=== PATIENT | female | born 1960 | race Caucasian/White ===

== ENCOUNTER 2016-12-29 09:30 | Inpatient (IN) | payer SELFPAY ==
[~2016-12-29] VITALS: Ht 172.7 cm; Wt 65.5 kg
[2016-12-29] VITALS (13 sets, daily range): BP systolic 99–182; BP diastolic 57–94; PULSE 80–142; RESP 24–42; TEMP 97.1–99.4; O2SAT 79–100
[~2016-12-29 09:30] MED LIST: ALBU8I INH; FURO20 PO; IRON325T2 PO; K-TA10TA5 PO; SENN1TAB11 PO
[2016-12-29] MEDS ORDERED: FURO20TA PO (09:49)
[2016-12-29] MEDS: RESP: ALBUTEROL 2.5 MG/3 ML NEB (SCH) INH (10:13)
[2016-12-29] MEDS ORDERED: methylPREDNISolone SOD SUCC 125 MG/2 ML VIAL IV PUSH ONE (10:15)
[2016-12-29] MEDS ORDERED: RESP: ALBUTEROL 2.5 MG/IPRATROPIUM 0.5 MG NEB (SCH) INH ONE (10:15)
[2016-12-29] MEDS ORDERED: SODIUM CHLOR 0.9% 1000 ML INJ 1,000 ML IV SCH (10:15)
[2016-12-29 10:29] LABS: AUTOMATED NEUTROPHIL # 6.3 TH/MM3 (1.8-7.7); BASOPHIL % 0.1 % (0.0-2.0); HEMATOCRIT 37.1 % (35.0-46.0); HEMO FLAGS DIFF FINAL; LYMPH % 10.6 % (9.0-44.0); LYMPHOCYTE # 0.9 TH/MM3 (1.0-4.8); MEAN CELL VOLUME 112.7 FL (80.0-100.0); MEAN CORPUSCULAR HEMOGLOBIN 37.7 PG (27.0-34.0); MEAN CORPUSCULAR HGB CONC 33.5 % (32.0-36.0); NEUT % 75.3 % (16.0-70.0); PLATELET COUNT 117 TH/MM3 (150-450); RED BLOOD COUNT 3.29 MIL/MM3 (4.00-5.30); RED CELL DISTRIBUTION WIDTH 14.9 % (11.6-17.2); WHITE BLOOD COUNT 8.3 TH/MM3 (4.0-11.0)
[2016-12-29 10:37] LABS: BACTERIA, URINE MANY /hpf; BLOOD, URINE NEG (NEG); COMMENT (UR) CULTURE INDICATED; CULTURE IF INDICATED CULTURE INDICATED; GLUCOSE,URINE NEG (NEG); KETONE, URINE 10 mg/dL (NEG); NITRITE,URINE NEG (NEG); PH, URINE 7.5 (5.0-8.5); URINE COLOR YELLOW (YELLW/STRAW)
[2016-12-29] MEDS ORDERED: ONDANSETRON HCL 4 MG/2 ML VIAL IV PUSH ONE (10:45)
--- NOTE | 2016-12-29 10:54 | PD ---
HPI Chief Complaint: Respiratory Symptoms Time Seen by Provider: 10:03 Travel History International Travel<30 days: No Contact w/Intl Traveler<30days: No Traveled to known affect area: No History of Present Illness HPI This is a 56-year-old female with a history of COPD, presents today with complaints of shortness of breath, wheezing, cough. The patient also reports that over the last week, she had had food poisoning. She states she ate suspicious food and shortly thereafter started having the nausea vomiting diarrhea. Patient also complains of difficulty urinating. She reports that she 's not able to empty her bladder. There is no reported dysuria. She states she has to push hard to empty her bladder. PFSH Past Medical History COPD: Yes Diminished Hearing: No Menopausal: Yes Past Surgical History Surgical History: No Previous Surgery Social History Alcohol Use: Yes ([facility]) Tobacco Use: No Substance Use: No Allergies-Medications (Allergen,Severity, Reaction): Coded Allergies: No Known Allergies (Verified , 12/29/16) Reported Meds & Prescriptions Reported Meds & Active Scripts Active Reported Furosemide 20 Mg Tab 20 Mg PO DAILY Review of Systems Except as stated in HPI: all other systems reviewed are Neg General / Constitutional: No: Fever, Chills HENT: No: Headaches, Neck Pain Cardiovascular: Positive: Tachycardia, No: Chest Pain or Discomfort, Palpitations Respiratory: Positive: Cough, Shortness of Breath, Wheezing Gastrointestinal: No: Nausea, Vomiting (earlier), Abdominal Pain (early) Genitourinary: Positive: Other (urinary retention), No: Frequency, Dysuria Musculoskeletal: Positive: Weakness (generalized), No: Pain Neurologic: Positive: Weakness (generalized), Other (urinary retention), No: Headache Physical Exam Narrative GENERAL: Well-nourished, well-developed patient in moderate to severe respiratory distress. SKIN: Focused skin assessment warm/dry. HEAD: Normocephalic/atraumatic. EYES: No scleral icterus. No injection or drainage. NECK: Supple, trachea midline. CARDIOVASCULAR: Tachycardic without obvious murmurs. RESPIRATORY: Diffuse expiratory wheezes bilaterally. Positive accessory muscle use. GASTROINTESTINAL: Abdomen soft, non-tender, nondistended. Patient has subjective bladder distention. MUSCULOSKELETAL: No cyanosis, or edema. NEUROLOGICAL: Awake and alert. Cranial nerves II through XII intact. Motor grossly within normal limits. Five out of 5 muscle strength in all muscle groups. Normal speech. Data Data Last Documented VS Vital Signs Date Time Temp Pulse Resp B/P (MAP) Pulse Ox O2 Delivery O2 Flow Rate FiO2 12/29/16 12:06 114 27 107/61 (76) 100 Nasal Cannula 4.00 12/29/16 09:39 98.0 Orders Orders Complete Blood Count With Diff (12/29/16 10:03) Comprehensive Metabolic Panel (12/29/16 10:03) Ckmb (Isoenzyme) Profile (12/29/16 10:03) Troponin I (12/29/16 10:03) Urinalysis - C+S If Indicated (12/29/16 10:03) Influenzae A/B Antigen (12/29/16 10:03) Blood Culture (12/29/16 10:03) Iv Access Insert/Monitor (12/29/16 10:03) Ecg Monitoring (12/29/16 10:03) Oximetry (12/29/16 10:03) Oxygen Administration (12/29/16 10:03) Chest, Single Ap (12/29/16 10:03) Sodium Chloride 0.9% Flush (Ns Flush) (12/29/16 10:15) Methylprednisolone So Succ Inj (Solumedr (12/29/16 10:15) Albuterol-Ipratropium Neb (Duoneb Neb) (12/29/16 10:15) Albuterol Neb (Albuterol Neb) (12/29/16 10:15) Sodium Chlor 0.9% 1000 Ml Inj (Ns 1000 M (12/29/16 10:15) Urinary Catheter Insert/Apply (12/29/16 10:36) Ondansetron Inj (Zofran Inj) (12/29/16 10:45) Urine Culture (12/29/16 10:05) Lactic Acid Sepsis Protocol (12/29/16 11:12) Ceftriaxone Inj (Rocephin Inj) (12/29/16 11:15) Azithromycin Inj (Zithromax Inj) (12/29/16 11:15) Admit To Inpatient (12/29/16 ) Code Status (12/29/16 11:23) Vital Signs (Adult) ZAINA.Q1H (12/29/16 11:23) Activity Bed Rest (12/29/16 11:23) Elevate Head Of Bed (12/29/16 11:23) Neuro Checks . ORDERED (12/29/16 11:23) Pantoprazole Inj (Protonix Inj) (12/29/16 12:00) Albuterol-Ipratropium Neb (Duoneb Neb) (12/29/16 12:00) Albuterol-Ipratropium Neb (Duoneb Neb) (12/29/16 11:30) Complete Blood Count With Diff (12/30/16 04:00) Comprehensive Metabolic Panel (12/30/16 04:00) Magnesium (Mg) (12/30/16 04:00) Phosphorus (Po4) (12/30/16 04:00) Crew Truck Driver / Telemetry ZAINA.Q8H (12/29/16 11:23) Scd Bilateral/Knee High ZAINA.BID (12/29/16 11:23) ^ Initiate Protocol (12/29/16 11:23) Instruction (12/29/16 11:23) [facility] [place] Nursing Information (12/29/16 11:30) Chlorhexidine 2% Cloth (Chlorhexidine 2% (12/30/16 04:00) Chlorhexidine 2% Cloth (Chlorhexidine 2% (12/29/16 11:30) [facility]sa Pcr Surveillance (12/29/16 11:23) Docusate Sodium-Senna (Elvie-Colace) (12/29/16 21:00) Magnesium Hydroxide Liq (Milk Of Magnesi (12/29/16 11:30) Sennosides (Senokot) (12/29/16 11:30) Bisacodyl Supp (Dulcolax Supp) (12/29/16 11:30) Lactulose Liq (Lactulose Liq) (12/29/16 11:30) Inpatient Certification (12/29/16 ) Sodium Chlor 0.9% 1000 Ml Inj (Ns 1000 M (12/29/16 11:30) Osmolality, Urine (12/29/16 11:26) Osmolality,Serum (12/29/16 11:26) Sodium, Random Urine (12/29/16 11:26) ^ Medication Admin Instruction (12/29/16 11:26) Notify Dr: Other (12/29/16 11:26) Phosphorus (Po4) (12/29/16 11:26) Potassium Chlor 40 Meq Premix (Kcl 40 Me (12/29/16 11:30) Potassium Chlor 20 Meq Premix (Kcl 20 Me (12/29/16 11:30) Potassium Chloride Eff (K-Lyte Cl Eff) (12/29/16 11:30) Potassium Chlor 40 Meq Premix (Kcl 40 Me (12/29/16 11:30) Potassium Chlor 20 Meq Premix (Kcl 20 Me (12/29/16 11:30) Magnesium Sulfate Inj (Magnesium Sulfate (12/29/16 11:30) Magnesium Oxide (Mag-Ox) (12/29/16 11:30) Magnesium Sulfate Inj (Magnesium Sulfate (12/29/16 11:30) Potassium Phosphate (K-Phos) (12/29/16 11:30) Sodium Phosphate Inj (Sodium Phosphate I (12/29/16 11:30) Potassium Phosphate (K-Phos) (12/29/16 11:30) Potassium Phosphate Inj (Potassium Phosp (12/29/16 11:30) Blood Glucose Goal (Criteria) (12/29/16 11:26) Hypoglycemia 70 Mg/Dl Or < (12/29/16 11:26) Notify Dr: Other (12/29/16 11:26) Dextrose 50% In Whitney (Vial) Inj (D50w (Vi (12/29/16 11:30) Glucagon Inj (Glucagon Inj) (12/29/16 11:30) Insulin Human Reg Supp Scale (Novolin R (12/29/16 11:30) Sputum Culture And Gram Stain (12/29/16 11:26) B-Type Natriuretic Peptide (12/29/16 11:28) Methylprednisolone So Succ Inj (Solumedr (12/29/16 16:00) Prothrombin Time / Inr (Pt) (12/29/16 11:29) Act Partial Throm Time (Ptt) (12/29/16 11:29) Electrocardiogram (12/29/16 09:46) Ceftriaxone Inj (Rocephin Inj) (12/30/16 12:00) Azithromycin Inj (Zithromax Inj) (12/30/16 13:00) Us Guided Thoracentesis (12/29/16 ) Glucose, Pleural Fluid (12/29/16 12:11) Ldh, Pleural Fluid (12/29/16 12:11) Pleural Fluid Ph (12/29/16 12:11) Pleural Fl Cell Count + Diff (12/29/16 12:11) Fluid Culture And Gram Stain (12/29/16 12:11) Cytology Request For Service (12/29/16 12:11) Total Protein, Pleural Fluid (12/29/16 12:11) Consult Pulmonology (12/29/16 ) Admit Order (Ed Use Only) (12/29/16 12:23) Ct Thoracentesis W Insertion (12/29/16 12:24) Labs Laboratory Tests Test 12/29/16 10:05 12/29/16 10:10 12/29/16 11:35 12/29/16 12:00 Urine Color YELLOW Urine Turbidity HAZY Urine pH 7.5 Urine Specific Franklin 1.008 Urine Protein TRACE mg/dL Urine Glucose (UA) NEG mg/dL Urine Ketones 10 mg/dL Urine Occult Blood NEG Urine Nitrite NEG Urine Bilirubin NEG Urine Urobilinogen LESS THAN 2.0 MG/DL Urine Leukocyte Esterase MOD Urine RBC 1 /hpf Urine WBC 7 /hpf Urine Bacteria MANY /hpf Microscopic Urinalysis Comment CULTURE INDICATED White Blood Count 8.3 TH/MM3 Red Blood Count 3.29 MIL/MM3 Hemoglobin 12.4 GM/DL Hematocrit 37.1 % Mean Corpuscular Volume 112.7 FL Mean Corpuscular Hemoglobin 37.7 PG Mean Corpuscular Hemoglobin Concent 33.5 % Red Cell Distribution Width 14.9 % Platelet Count 117 TH/MM3 Mean Platelet Volume 10.0 FL Neutrophils (%) (Auto) 75.3 % Lymphocytes (%) (Auto) 10.6 % Monocytes (%) (Auto) 14.0 % Eosinophils (%) (Auto) 0.0 % Basophils (%) (Auto) 0.1 % Neutrophils # (Auto) 6.3 TH/MM3 Lymphocytes # (Auto) 0.9 TH/MM3 Monocytes # (Auto) 1.2 TH/MM3 Eosinophils # (Auto) 0.0 TH/MM3 Basophils # (Auto) 0.0 TH/MM3 CBC Comment DIFF FINAL Differential Comment Blood Urea Nitrogen 18 MG/DL Creatinine 0.88 MG/DL Random Glucose 127 MG/DL Total Protein 7.7 GM/DL Albumin 2.4 GM/DL Calcium Level 8.4 MG/DL Alkaline Phosphatase 95 U/L Aspartate Amino Transf (AST/SGOT) 46 U/L Alanine Aminotransferase (ALT/SGPT) 27 U/L Total Bilirubin 0.8 MG/DL Sodium Level 125 MEQ/L Potassium Level 3.4 MEQ/L Chloride Level 90 MEQ/L Carbon Dioxide Level 20.3 MEQ/L Anion Gap 15 MEQ/L Estimat Glomerular Filtration Rate 66 ML/MIN Total Creatine Kinase 38 U/L Troponin I 0.11 NG/ML Lactic Acid Level 2.1 mmol/L Prothrombin Time 11.8 SEC Prothromb Time International Ratio 1.1 RATIO Activated Partial Thromboplast Time 34.4 SEC MDM Medical Decision Making Medical Screen Exam Complete: Yes Emergency Medical Condition: Yes Interpretation(s) Laboratory Tests Test 12/29/16 10:05 12/29/16 10:10 12/29/16 11:35 12/29/16 12:00 Urine Color YELLOW Urine Turbidity HAZY Urine pH 7.5 Urine Specific Franklin 1.008 Urine Protein TRACE mg/dL Urine Glucose (UA) NEG mg/dL Urine Ketones 10 mg/dL Urine Occult Blood NEG Urine Nitrite NEG Urine Bilirubin NEG Urine Urobilinogen LESS THAN 2.0 MG/DL Urine Leukocyte Esterase MOD Urine RBC 1 /hpf Urine WBC 7 /hpf Urine Bacteria MANY /hpf Microscopic Urinalysis Comment CULTURE INDICATED White Blood Count 8.3 TH/MM3 Red Blood Count 3.29 MIL/MM3 Hemoglobin 12.4 GM/DL Hematocrit 37.1 % Mean Corpuscular Volume 112.7 FL Mean Corpuscular Hemoglobin 37.7 PG Mean Corpuscular Hemoglobin Concent 33.5 % Red Cell Distribution Width 14.9 % Platelet Count 117 TH/MM3 Mean Platelet Volume 10.0 FL Neutrophils (%) (Auto) 75.3 % Lymphocytes (%) (Auto) 10.6 % Monocytes (%) (Auto) 14.0 % Eosinophils (%) (Auto) 0.0 % Basophils (%) (Auto) 0.1 % Neutrophils # (Auto) 6.3 TH/MM3 Lymphocytes # (Auto) 0.9 TH/MM3 Monocytes # (Auto) 1.2 TH/MM3 Eosinophils # (Auto) 0.0 TH/MM3 Basophils # (Auto) 0.0 TH/MM3 CBC Comment DIFF FINAL Differential Comment Blood Urea Nitrogen 18 MG/DL Creatinine 0.88 MG/DL Random Glucose 127 MG/DL Total Protein 7.7 GM/DL Albumin 2.4 GM/DL Calcium Level 8.4 MG/DL Alkaline Phosphatase 95 U/L Aspartate Amino Transf (AST/SGOT) 46 U/L Alanine Aminotransferase (ALT/SGPT) 27 U/L Total Bilirubin 0.8 MG/DL Sodium Level 125 MEQ/L Potassium Level 3.4 MEQ/L Chloride Level 90 MEQ/L Carbon Dioxide Level 20.3 MEQ/L Anion Gap 15 MEQ/L Estimat Glomerular Filtration Rate 66 ML/MIN Total Creatine Kinase 38 U/L Troponin I 0.11 NG/ML Lactic Acid Level 2.1 mmol/L Prothrombin Time 11.8 SEC Prothromb Time International Ratio 1.1 RATIO Activated Partial Thromboplast Time 34.4 SEC Differential Diagnosis COPD versus pneumonia versus dehydration versus anemia Narrative Course 56-year-old female history of COPD, presents today with points of shortness of breath and weakness per patient also has urinary retention. Patient's urinalysis showed evidence of a UTI. Patient also had 1300 cc of urine in her bladder that she could not void. Chest x-ray shows a large left sided pleural effusion. Patient also has hyponatremia and an elevated troponin. Case was discussed with Dr. Gomez, hydraulic riveter, who agreed to admit the patient his service. The patient will get a therapeutic and diagnostic thoracentesis with chest tube placement. He'll be a CT ordered of her chest after the thoracentesis. Concern here is patient may have paraneoplastic syndrome and underlying lung cancer. Critical Care Narrative Aggregate critical care time was 45 minutes. Time to perform other separately billable procedures was not included in the critical care time. My time did not include minutes spent treating any other patients simultaneously or on activities that did not directly contribute to the patient's treatment. The services I provided to this patient were to treat and/or prevent clinically significant deterioration that could result in: I provided critical care services requiring my management, as noted below: Chart data review, documentation time, medication orders and management, vital sign assessments/reviewing monitor data, ordering and reviewing lab tests, ordering and interpreting/reviewing x-rays and diagnostic studies, care of the patient and discussion of the patient with the admitting physicians. Diagnosis Primary Impression: Respiratory distress Additional Impressions: large left pleural effusion Hyponatremia Elevated troponin persistent tachycardia Hypochloremia Admitting Information Admitting Physician Requests: Admit Merritt Singletary MD Dec 29, 2016 10:54
--- NOTE | 2016-12-29 10:58 | RADRPT ---
EXAM DATE/TIME: 12/29/2016 10:24 [facility] COMPARISON: No previous studies available for comparison. INDICATIONS : Chest pain and shortness of breath. MEDICAL HISTORY : Chronic obstructive pulmonary disease. SURGICAL HISTORY : None. ENCOUNTER: Initial ACUITY: 1 day PAIN SCORE: 10/10 LOCATION: Bilateral chest FINDINGS: I don't have any priors. Large pleural effusion with patchy consolidation and volume loss seen on the left. There is near complete opacification of the left hemithorax. Right lung is reasonably clear. H eart size probably upper limits of normal. CONCLUSION: Combination of extensive consolidation, large effusion and volume loss on the left. Man Mcdaniels MD on December 29, 2016 at 10:55 Board Certified Radiologist. This report was verified electronically.
[2016-12-29 11:07] LABS: ALKALINE PHOSPHATASE 95 U/L (45-117); ALT (GPT) 27 U/L (10-53); ANION GAP 15 MEQ/L (5-15); AST (GOT) 46 U/L (15-37); BICARBONATE 20.3 MEQ/L (21.0-32.0); BLOOD UREA NITROGEN 18 MG/DL (7-18); CHLORIDE 90 MEQ/L (98-107); GLOMERULAR FILTRATION RATE 66 ML/MIN (>89); POTASSIUM 3.4 MEQ/L (3.5-5.1); SODIUM (NA) 125 MEQ/L (136-145); TOTAL BILIRUBIN ADULT 0.8 MG/DL (0.2-1.0)
[2016-12-29 11:08] LABS: CREATINE KINASE 38 U/L (26-192)
[2016-12-29] MEDS ORDERED: cefTRIAXone INJ 1,000 MG in SODIUM CHLORIDE 0.9% INJ 100 ML IV ONE (11:15)
[2016-12-29] MEDS ORDERED: AZITHROMYCIN INJ 500 MG in SODIUM CHLOR 0.9% 250 ML INJ 250 ML IV ONE (11:15)
[2016-12-29] MEDS ORDERED: POTASSIUM PHOSPHATE INJ 30 MMOL in SODIUM CHLOR 0.9% 250 ML INJ 250 ML IV PRN (11:30)
[2016-12-29] MEDS ORDERED: MAGNESIUM SULFATE INJ 2 GM in SODIUM CHLORIDE 0.9% INJ 96 ML IV PRN (11:30)
[2016-12-29] MEDS ORDERED: MAGNESIUM SULFATE INJ 4 GM in SODIUM CHLORIDE 0.9% INJ 92 ML IV PRN (11:30)
[2016-12-29] MEDS ORDERED: MISCELLANEOUS NURSING INFORMATION XX SCH (11:30)
[2016-12-29] MEDS ORDERED: DEXTROSE 50% IN WATER 50 ML VIAL(D50) IV PUSH PRN (11:30)
[2016-12-29] MEDS ORDERED: POTASSIUM CHLOR 20 MEQ PREMIX 100 ML IV PRN ×2 (11:30)
[2016-12-29] MEDS ORDERED: POTASSIUM PHOSPHATE MONOBASIC 500 MG TAB PO/TUBE PRN (11:30)
[2016-12-29] MEDS ORDERED: POTASSIUM CHLOR 40 MEQ PREMIX 100 ML IV PRN ×2 (11:30)
[2016-12-29] MEDS ORDERED: CHLORHEXIDINE GLUCONATE 2 % 1 PACK (2 CLOTHS) TOP PRN (11:30)
[2016-12-29] MEDS: INSULIN NovoLIN REGULAR SUPPLEMENTAL SCALE SQ SCH ×3 (11:30→23:30)
[2016-12-29] MEDS ORDERED: POTASSIUM CHLORIDE 25 MEQ EFFERVESCENT TAB PO PRN (11:30)
[2016-12-29] MEDS ORDERED: LACTULOSE SYRUP 20 GM/30 ML CUP PO PRN (11:30)
[2016-12-29] MEDS ORDERED: MAGNESIUM OXIDE 400 MG TAB PO PRN (11:30)
[2016-12-29] MEDS ORDERED: GLUCAGON 1 MG/ML VIAL OTHER PRN (11:30)
[2016-12-29] MEDS ORDERED: BISACODYL 10 MG SUPP RECTAL PRN (11:30)
[2016-12-29] MEDS ORDERED: POTASSIUM PHOSPHATE MONOBASIC 500 MG TAB PO PRN (11:30)
[2016-12-29] MEDS ORDERED: SODIUM PHOSPHATE INJ 30 MMOL in SODIUM CHLOR 0.9% 250 ML INJ 240 ML IV PRN (11:30)
[2016-12-29] MEDS: SODIUM CHLOR 0.9% 1000 ML INJ 1,000 ML IV SCH ×2 (12:04→17:26)
[2016-12-29] MEDS: RESP: ALBUTEROL 2.5 MG/IPRATROPIUM 0.5 MG NEB (SCH) INH ×4 (12:08→23:46)
[2016-12-29] MEDS: PANTOPRAZOLE SODIUM 40 MG VIAL IV PUSH SCH (12:31)
[2016-12-29] MEDS ORDERED: LIDOCAINE 1%/EPINEPHrine 1:100,000 SOLN 20 ML VIAL ONE (12:38)
[2016-12-29] MEDS ORDERED: MIDAZOLAM HCL 2 MG/2 ML VIAL ONE (12:47)
[2016-12-29 12:54] LABS: APTT (PATIENT) 34.4 SEC (24.3-30.1); INTERNATIONAL NORMALIZED RATIO 1.1 RATIO; PROTHROMBIN TIME - PATIENT 11.8 SEC (9.8-11.6)
--- NOTE | 2016-12-29 12:57 | MH ---
cc: LINDA ADAMS DATE OF ADMISSION: 12/29/2016 1960 HISTORY OF PRESENT ILLNESS The patient is a 56-year-old female with past medical history of COPD, who presented to [facility] ED with complaints of coughing, wheezing. The patient states that she had food poisoning last week where she had nausea and diarrhea, after she ate suspicious food. She denies any worsening of dyspnea from baseline. In addition, she denies any constitutional symptoms. She quit smoking five and a half years ago and used to smoke one to two packs per day for about 30 years. Chest x-ray in the ER showed consolidation with large effusion and volume loss on the left. On further history she denies any hemoptysis, however, she reports 20 pounds weight loss in the last 4 months and decreased p.o. intake. She is being followed up by Dr. Chung her outpatient residential care facility manager. The patient denies any use of oxygen at home, however, she is on bronchodilators p.r.n. Her laboratory data is significant for hyponatremia with sodium level 125, lactic acid level 2.1. On arrival to the ER she was tachycardic and tachypneic. When seen the patient is on 4 liters nasal cannula with saturation ranges between 95-100%. In the ER she was given Rocephin, azithromycin, Solu-Medrol, bronchodilator treatment and IV fluids. Her current blood pressure is 107/61. PAST MEDICAL HISTORY Significant for COPD. PAST SURGICAL HISTORY Unremarkable. ALLERGIES NO KNOWN DRUG ALLERGIES. FAMILY HISTORY Father with lung cancer age 54. SOCIAL HISTORY Ex-smoker, quit smoking five and half years ago. Used to smoke one to two packs per day for 30 years. She is occasional drinker. MEDICATIONS Reported medications at home: Lasix 20 mg daily. REVIEW OF SYSTEMS As per HPI. The rest of the review of systems is unremarkable. PHYSICAL EXAMINATION GENERAL: A 56-year-old female lying in bed in mild distress, appears ill. VITAL SIGNS: Temperature of 98.0, pulse 112, blood pressure 107/61, saturation 94-100% on 4 liters oxygen. HEENT: Atraumatic, normocephalic. Pupil equal, round and reactive to light and accommodation. Extraocular muscles intact. Conjunctivae pink. Nonicteric sclerae. Oral mucosa within normal. Dry mucous membranes noted. NECK: Supple. No JVD, adenopathy or thyromegaly. Trachea midline. CARDIOVASCULAR: Tachycardic, normal S1-S2. No murmurs, rubs or gallops noted. PULMONARY: Diminished breath sounds at the left base. ABDOMEN: Soft, nontender, no distension. Positive bowel sounds. EXTREMITIES: No cyanosis, clubbing or edema. NEURO: No focal sensory deficit. LABORATORY DATA WBC 8.3, hemoglobin 12.4, hematocrit 37, platelet count of 117, sodium 125, potassium 3.4, chloride 90, CO2 20, BUN 18, creatinine 0.88, glucose 127, lactic acid 2.1, AST 46, ALT 27, total bilirubin 0.8, troponin 0.11 with total CK 38, albumin 2.4. Urinalysis moderate leukocyte esterase, 7 WBC, many bacteria. RADIOGRAPHIC STUDIES Chest x-ray showed extensive consolidation with large effusion on left. IMPRESSION 1. Acute respiratory insufficiency. 2. Left-sided consolidation with pleural effusion. 3. COPD exacerbation. 4. Hyponatremia. 5. Hypokalemia. 6. Urinary tract infection. 7. Mild thrombocytopenia. 8. Elevated AST. RECOMMENDATIONS 1. Monitor neuro status and avoid any sedatives. 2. Continue with oxygen and maintain sats above 92%. 3. Bronchodilators in the form of DuoNeb q. 4 plus q. 2 p.r.n. for shortness of breath. 4. The patient is scheduled to undergo left-sided thoracentesis by IR with possible pigtail catheter placement. Will send the pleural fluid for analysis, culture and cytology. Need to rule out malignancy. 5. Will obtain CT scan of the chest for further evaluation of the pulmonary parenchyma. 6. Monitor heart rate and blood pressure closely and maintain MAP above 65 mmHg. IV fluids in the form of NS at 84 mL an hour. Lactic acid level measured at 2.1 in the ED. 7. Monitor renal function I&O's and electrolyte replacement per protocol. 8. Will check serum and urine osmolality in addition to urine sodium. Rule out SIADH secondary to malignancy versus volume depletion. 9. Continue with broad-spectrum antibiotics in the form of Rocephin and Zithromax and monitor for signs of infections which include fever and WBC. Follow up on blood and urine cultures, in addition we will check sputum culture. Nasal aspirate screening for influenza is negative. 10. Place on sliding scale insulin with Accu-Cheks for glycemic control. 11. Monitor CBC. 12. No indication for GI prophylaxis. DVT prophylaxis with SCDs. Will hold off on chemical anticoagulation prophylaxis as the patient will undergo thoracentesis. Further recommendations will be based on hospital course. MD DIMAS Cordova/COURTNEY /12:15 PM /12:29 PM
[2016-12-29] MEDS ORDERED: IOHEXOL 350 MG/ML 10 ML VIAL (for RAD DIAG) IVCONTRAST ONE (13:33)
[2016-12-29 13:39] LABS: LACTIC ACID GHOST NOT REPORTABLE
[2016-12-29] MEDS ORDERED: ePHEDrine/NS 25 MG/5 ML SYR ONE (13:40)
--- NOTE | 2016-12-29 13:49 | RADRPT ---
EXAM DATE/TIME: 12/29/2016 13:07 [facility] COMPARISON: No previous studies available for comparison. INDICATIONS : Left effusion, extensive consolidation on radiograph. IV CONTRAST: 69 cc Omnipaque 350 (iohexol) IV RADIATION DOSE: 9.59 CTDIvol (mGy) MEDICAL HISTORY : Chronic obstructive pulmonary disease. SURGICAL HISTORY : None. ENCOUNTER: Initial ACUITY: 1 day PAIN SCALE: 0/10 LOCATION: Left chest TECHNIQUE: Volumetric scanning of the chest was performed. Using automated exposure control and adjustment of t he mA and/or kV according to patient size, radiation dose was kept as low as reasonably achievable to obtain optimal diagnostic quality images. DICOM format image data is available electronically for review and comparison. Follow-up recommendations for detected pulmonary nodules are based at a minimum on nodule size and pa tient risk factors according to Fleischner Society Guidelines. FINDINGS: There is either loculated complex fluid or a soft tissue mass involving the left inferior hemithorax. This measures 12.6 x 12.2 x 7.4 cm and Hounsfield units are 28. Mixed areas of either calcification or linear enhancement seen involving this structure. It does generate mass effect compressing the lef t lower lobe. Low density material is seen filling the left mainstem bronchus which could either rela te superior material or mucus. There is resulting volume loss involving the left hemithorax. The left upper lobe remains somewhat aerated although not fully. A 7 mm nodule is seen within the left upper lobe. The right lung is fully expanded and clear. Heart is normal in size. Coronary artery and aortic atherosclerotic calcifications are seen. The ascending aorta is dilated measuring 4.4 cm in diameter . No appreciable adenopathy. Axillary structures are unremarkable. Images of the upper abdomen are un remarkable. CONCLUSION: 1. Either highly complex fluid or soft tissue mass involving the left lung base with mass effect. Thi s measures 12.2 x 12.6 x 7.4 cm. An ultrasound canal differentiate. 2. 7 mm nodule on the left upper lobe. 3. Material filling the left mainstem bronchus either related to purulent material or mucus. There is resulting volume loss of the entire left lung. 4. 4.4 cm ascending aortic aneurysm. Art Tate Jr., MD on December 29, 2016 at 13:42 Board Certified Radiologist. This report was verified electronically.
[2016-12-29 16:11] LABS: PLEURAL FLUID LYMPHS ND %
[2016-12-29] MEDS: methylPREDNISolone SOD SUCC 40 MG/1 ML VIAL IV PUSH SCH (17:14)
--- NOTE | 2016-12-29 20:25 | MB ---
cc: Venessa LAWLER M.D. DATE OF CONSULTATION 12/29/16 REASON FOR CONSULTATION Respiratory distress and pleural effusions HISTORY OF PRESENT ILLNESS This is a 56-year-old white female with a history of COPD and chronic bronchitis who apparently was suffering from food poisoning over the past one week and became quite weak, had nausea, diarrhea, abdominal discomfort and dehydration. The patient states that she was unable to pass urine and became very weak, had lost weight and thus came to the ER and subsequently was admitted. The patient did have a chest x-ray which showed an area of effusion with volume loss in the left side. She then had a chest CT done which showed evidence of a loculated mass-like infiltrate in the left lung base 12 x 12 cm. There was also a left upper lobe lung nodule 7 mm. She had some mucous ___ in her left main stem bronchus and volume loss of the left lung. Also ascending aortic aneurysm was noted. The patient was started on Solu-Medrol, IV antibiotics including Rocephin and Zithromax and now in the ICU and seems to be feeling better. Denies chest pains or abdominal pains or nausea or vomiting. PAST MEDICAL HISTORY 1. History of COPD. 2. She has had severe anemia for many years. 3. Fluid retention and chronic leg edema in the past 4. Chronic pleural effusions which required thoracentesis in the past. 5. The patient has had no other significant surgical history. 6. She was mildly hypertensive in the past. HABITS The patient smoked one-pack per day for over 30 years and quit five and a half years ago. Occasional alcohol use. MEDICATIONS Lasix 20 mg daily. ALLERGIES No drug allergies. FAMILY HISTORY Father had a history of lung cancer. REVIEW OF SYSTEMS The patient has lost weight, up to 20 pounds. No headaches, no blackouts. She has some chest tightness, wheezing, shortness of breath and orthopnea. She has epigastric distress and reflux. She has urinary frequency and dysuria. She has leg swelling and joint pains. She has no skin lesions. She has no depression or anxiety. PHYSICAL EXAMINATION GENERAL: This is an averagely built middle-aged white female who is pale and mildly dyspneic. VITAL SIGNS: Blood pressure 110/60, pulse is 105, respirations 22, temperature 98.2. HEENT: Head normocephalic. Pupils are reactive and equal. Tongue moist. Throat is mildly injected. Nasal mucosa edematous. NECK: Supple. No bruits, thyroid enlargement or lymphadenopathy. CHEST: Distant breath sounds at the lung bases with occasional crackles in the left upper lung field. HEART: The heart sounds are irregular, S1-S2. No murmur. No S3. ABDOMEN: Soft and nontender. No organomegaly. Bowel sounds are active. EXTREMITIES: Edema 1+ with diminished peripheral pulses. NEUROLOGIC: Reflexes are 1+ with no gross motor deficits. Cranial nerves grossly intact. RECTAL: Exam is deferred. SKIN: Dry and scaly. IMPRESSION 1. COPD with acute exacerbation 2. Chronic left basilar effusion with loculation 3. Atelectasis left lower lobe with mucus plugging. 4. Hyponatremia. 5. Abnormal liver enzymes 6. Anemia and chronic disease. PLAN The patient has been started on O2 at 2 liters nasal cannula, nebulized DuoNeb solution q.i.d. and p.r.n. Continue with Rocephin 1 gram IV daily and Zithromax 500 mg IV daily. IMAGING STUDIES Ultrasound examination of the left lower chest to evaluate the effusion. Pigtail catheter placement by interventional radiology to drain the effusion. If there is a mass that is detected on ultrasound, we will need to get a CT-guided needle biopsy of the mass as well. The patient may also require a bronchoscopy at a later date when she is clinically stable. We will get a pulmonary function study when she is out of the ICU. We will continue with Solu-Medrol 40 mg IV q.6 h. Thank you, Dr. Gomez, for this consultation. MD MADDY Johnston/ /6:02 PM /8:06 PM
[2016-12-29] MEDS: DOCUSATE SODIUM 50 MG/SENNA 8.6 MG TAB PO SCH (21:00)
--- NOTE | 2016-12-29 23:40 | EKG ---
Date Performed: 12/29/2016 Time Performed: 09:46:27 PTAGE: 56 years EKG: SINUS TACHYCARDIA WITH OCCASIONAL SUPRAVENTRICULAR PREMATURE COMPLEXES MARKED LEFT AXIS DEV IATION NONSPECIFIC T-WAVE ABNORMALITY ABNORMAL ECG NO PREVIOUS TRACING DOCTOR: Jaime Cutler Interpretating Date/Time 12/29/2016 23:39:53
[2016-12-30] VITALS (14 sets, daily range): BP systolic 102–128; BP diastolic 59–78; PULSE 65–124; RESP 24–31; TEMP 98.4–99; O2SAT 96–100
[2016-12-30] MEDS: methylPREDNISolone SOD SUCC 40 MG/1 ML VIAL IV PUSH SCH ×4 (00:11→18:11)
[2016-12-30] MEDS: RESP: ALBUTEROL 2.5 MG/IPRATROPIUM 0.5 MG NEB (SCH) INH ×6 (03:52→23:25)
[2016-12-30 03:57] LABS: AUTOMATED NEUTROPHIL # 3.6 TH/MM3 (1.8-7.7); EOSINOPHIL % 0.1 % (0.0-4.0); HEMATOCRIT 24.9 % (35.0-46.0); LYMPH % 8.8 % (9.0-44.0); LYMPHOCYTE # 0.4 TH/MM3 (1.0-4.8); MEAN CELL VOLUME 111.1 FL (80.0-100.0); MEAN CORPUSCULAR HEMOGLOBIN 37.5 PG (27.0-34.0); MEAN CORPUSCULAR HGB CONC 33.8 % (32.0-36.0); MONO % 4.8 % (0.0-8.0); NEUT % 86.3 % (16.0-70.0); PLATELET COUNT 89 TH/MM3 (150-450); RED BLOOD COUNT 2.24 MIL/MM3 (4.00-5.30); RED CELL DISTRIBUTION WIDTH 14.7 % (11.6-17.2); WHITE BLOOD COUNT 4.2 TH/MM3 (4.0-11.0)
[2016-12-30 03:58] LABS: HEMO FLAGS AUTO DIFF
[2016-12-30] MEDS: CHLORHEXIDINE GLUCONATE 2 % 1 PACK (2 CLOTHS) TOP SCH (04:00)
[2016-12-30] MEDS ORDERED: ACETAMINOPHEN 325 MG TAB PO PRN ×2 (04:15→22:30)
[2016-12-30] MEDS: RESP: ALBUTEROL 2.5 MG/IPRATROPIUM 0.5 MG NEB (PRN) INH (04:19)
[2016-12-30 04:27] LABS: ALKALINE PHOSPHATASE 55 U/L (45-117); ALT (GPT) 16 U/L (10-53); ANION GAP 9 MEQ/L (5-15); AST (GOT) 27 U/L (15-37); BICARBONATE 22.7 MEQ/L (21.0-32.0); BLOOD UREA NITROGEN 14 MG/DL (7-18); CHLORIDE 102 MEQ/L (98-107); GLOMERULAR FILTRATION RATE 175 ML/MIN (>89); POTASSIUM 3.3 MEQ/L (3.5-5.1); SODIUM (NA) 134 MEQ/L (136-145); TOTAL BILIRUBIN ADULT 0.3 MG/DL (0.2-1.0)
[2016-12-30] MEDS: INSULIN NovoLIN REGULAR SUPPLEMENTAL SCALE SQ SCH ×4 (05:30→23:30)
--- NOTE | 2016-12-30 07:22 | RADRPT ---
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 Patient is tachypneic and tachycardic with comp eri loculated left-sided pleural effusion. Image guided chest tube placement been requested. SEDATION TIME: 30 MEDICATION(S): 1.).5 mg midazolam (Versed) IV 2.) 25 mcg fentanyl (Sublimaze) IV DEVICE(S): 1.) 12 Fr [place] FLUID: Total volume of 12 cc of red fluid was removed. Fluid was sent for laboratory ordered studies. MEDICAL HISTORY : Chronic obstructive pulmonary disease. SURGICAL HISTORY : None. ENCOUNTER: Initial ACUITY: 1 day PAIN SCORE: 0/10 LOCATION: Left chest PROCEDURE: 1. CT guided Left thoracentesis with chest tube placement. 2. Conscious sedation with continuous EKG and oximetry monitoring. 3. EKG and oximetry remained stable throughout the procedure. The site was prepped in sterile fashion. Full sterile technique was used, including cap, mask, steri le gloves and gown and a large sterile sheet. Hand hygiene and 2% chlorhexidine and/or betadine/alco hol prep was utilized per protocol for cutaneous antisepsis. The skin and subcutaneous tissues were infiltrated with local anesthetic solution. Using automated exposure control and adjustment of the m A and/or kV according to patient size, radiation dose was kept as low as reasonably achievable to obt ain optimal diagnostic quality images. DICOM format image data is available electronically for revie w and comparison. Under CT guidance a 12 Setswana nonlocking pigtail catheter was placed in the left pleural space. Appro ximately 12 cc of serosanguineous fluid were gently aspirated out of the chest. Chest tube was inser montez. Post procedural scan show reduction in the amount of fluid with no evidence of pneumothorax. The patient tolerated the procedure well and there were no complications. EKG and oximetry remained s table throughout the procedure. The patient was sent to recovery in stable condition. CONCLUSION: Uncomplicated CT-guided thoracentesis. David Mora MD on December 30, 2016 at 7:19 Board Certified Radiologist. This report was verified electronically.
[2016-12-30 07:48] LABS: PLATELET ESTIMATE SMEAR LOW (NORMAL); PLATELET MORPHOLOGY ENLARGED (NORMAL); SCAN/DIFF AUTO DIFF CONFIRMED
--- NOTE | 2016-12-30 08:23 | HHI.CCPN ---
Subjective Remarks/Hospital Course The patient is a 56-year-old female with past medical history of COPD, who presented to [facility] ED with complaints of coughing, wheezing. The patient states that she had food poisoning last week where she had nausea and diarrhea, after she ate suspicious food. She denies any worsening of dyspnea from baseline. In addition, she denies any constitutional symptoms. She quit smoking five and a half years ago and used to smoke one to two packs per day for about 30 years. Chest x-ray in the ER showed consolidation with large effusion and volume loss on the left. On further history she denies any hemoptysis, however, she reports 20 pounds weight loss in the last 4 months and decreased p.o. intake. She is being followed up by Dr. Chung her outpatient drum plater. The patient denies any use of oxygen at home, however, she is on bronchodilators p.r.n. Her laboratory data is significant for hyponatremia with sodium level 125, lactic acid level 2.1. On arrival to the ER she was tachycardic and tachypneic. When seen the patient is on 4 liters nasal cannula with saturation ranges between 95-100%. In the ER she was given Rocephin, azithromycin, Solu-Medrol, bronchodilator treatment and IV fluids. Her current blood pressure is 107/61. 12/30 Patient s/p CT guided thoracentesis and CT placement by IR yesterday. She is feeling better. Objective Vital Signs Date Time Temp Pulse Resp B/P (MAP) Pulse Ox O2 Delivery O2 Flow Rate FiO2 12/30/16 07:29 100 21 12/30/16 06:00 99 12/30/16 04:00 98.7 24 128/78 (95) 12/29/16 19:46 Nasal Cannula 2.00 Intake and Output 12/30/16 12/30/16 12/31/16 08:00 16:00 00:00 Output Total 350 ml Balance -350 ml Result Diagram: 12/30/16 0330 12/30/16 0330 Other Results Laboratory Tests Test 12/29/16 10:05 12/29/16 10:10 12/29/16 11:35 12/29/16 12:00 Urine Color YELLOW Urine Turbidity HAZY Urine pH 7.5 Urine Specific [place] 1.008 Urine Protein TRACE mg/dL Urine Glucose (UA) NEG mg/dL Urine Ketones 10 mg/dL Urine Occult Blood NEG Urine Nitrite NEG Urine Bilirubin NEG Urine Urobilinogen LESS THAN 2.0 MG/DL Urine Leukocyte Esterase MOD Urine RBC 1 /hpf Urine WBC 7 /hpf Urine Bacteria MANY /hpf Microscopic Urinalysis Comment CULTURE INDICATED Urine Osmolality 289 MOSM/KG Urine Random Sodium 48 MEQ/L White Blood Count 8.3 TH/MM3 Red Blood Count 3.29 MIL/MM3 Hemoglobin 12.4 GM/DL Hematocrit 37.1 % Mean Corpuscular Volume 112.7 FL Mean Corpuscular Hemoglobin 37.7 PG Mean Corpuscular Hemoglobin Concent 33.5 % Red Cell Distribution Width 14.9 % Platelet Count 117 TH/MM3 Mean Platelet Volume 10.0 FL Neutrophils (%) (Auto) 75.3 % Lymphocytes (%) (Auto) 10.6 % Monocytes (%) (Auto) 14.0 % Eosinophils (%) (Auto) 0.0 % Basophils (%) (Auto) 0.1 % Neutrophils # (Auto) 6.3 TH/MM3 Lymphocytes # (Auto) 0.9 TH/MM3 Monocytes # (Auto) 1.2 TH/MM3 Eosinophils # (Auto) 0.0 TH/MM3 Basophils # (Auto) 0.0 TH/MM3 CBC Comment DIFF FINAL Differential Comment Blood Urea Nitrogen 18 MG/DL Creatinine 0.88 MG/DL Random Glucose 127 MG/DL Total Protein 7.7 GM/DL Albumin 2.4 GM/DL Calcium Level 8.4 MG/DL Alkaline Phosphatase 95 U/L Aspartate Amino Transf (AST/SGOT) 46 U/L Alanine Aminotransferase (ALT/SGPT) 27 U/L Total Bilirubin 0.8 MG/DL Sodium Level 125 MEQ/L Potassium Level 3.4 MEQ/L Chloride Level 90 MEQ/L Carbon Dioxide Level 20.3 MEQ/L Anion Gap 15 MEQ/L Estimat Glomerular Filtration Rate 66 ML/MIN Serum Osmolality 276 MOSM/KG Phosphorus Level 2.5 MG/DL Total Creatine Kinase 38 U/L Troponin I 0.11 NG/ML B-Type Natriuretic Peptide 634 PG/ML Lactic Acid Level 2.1 mmol/L Prothrombin Time 11.8 SEC Prothromb Time International Ratio 1.1 RATIO Activated Partial Thromboplast Time 34.4 SEC Test 12/29/16 14:00 12/29/16 15:05 12/29/16 16:00 12/30/16 03:30 Pleural Fluid pH Pleural Fluid WBC /MM3 Pleural Fluid RBC /MM3 Pleural Fluid Neutrophils % Pleural Fluid Lymphocytes % Pleural Fluid Monocytes % Lactic Acid Level 1.6 mmol/L Nasal Screen MRSA (PCR) MRSA NOT DETECTED White Blood Count 4.2 TH/MM3 Red Blood Count 2.24 MIL/MM3 Hemoglobin 8.4 GM/DL Hematocrit 24.9 % Mean Corpuscular Volume 111.1 FL Mean Corpuscular Hemoglobin 37.5 PG Mean Corpuscular Hemoglobin Concent 33.8 % Red Cell Distribution Width 14.7 % Platelet Count 89 TH/MM3 Mean Platelet Volume 10.5 FL Neutrophils (%) (Auto) 86.3 % Lymphocytes (%) (Auto) 8.8 % Monocytes (%) (Auto) 4.8 % Eosinophils (%) (Auto) 0.1 % Basophils (%) (Auto) 0.0 % Neutrophils # (Auto) 3.6 TH/MM3 Lymphocytes # (Auto) 0.4 TH/MM3 Monocytes # (Auto) 0.2 TH/MM3 Eosinophils # (Auto) 0.0 TH/MM3 Basophils # (Auto) 0.0 TH/MM3 CBC Comment AUTO DIFF Differential Comment AUTO DIFF CONFIRMED Platelet Estimate LOW Platelet Morphology Comment ENLARGED Blood Urea Nitrogen 14 MG/DL Creatinine 0.38 MG/DL Random Glucose 130 MG/DL Total Protein 5.6 GM/DL Albumin 1.7 GM/DL Calcium Level 7.8 MG/DL Phosphorus Level 1.8 MG/DL Magnesium Level 2.0 MG/DL Alkaline Phosphatase 55 U/L Aspartate Amino Transf (AST/SGOT) 27 U/L Alanine Aminotransferase (ALT/SGPT) 16 U/L Total Bilirubin 0.3 MG/DL Sodium Level 134 MEQ/L Potassium Level 3.3 MEQ/L Chloride Level 102 MEQ/L Carbon Dioxide Level 22.7 MEQ/L Anion Gap 9 MEQ/L Estimat Glomerular Filtration Rate 175 ML/MIN Imaging Last Impressions Chest Tube Insertion 12/29/16 1224 Signed Impressions: Service Date/Time: December 13:22 - CONCLUSION: Uncomplicated CT-guided thoracentesis. David Mora MD Chest X-Ray 12/29/16 1003 Signed Impressions: Service Date/Time: December 10:24 - CONCLUSION: Combination of extensive consolidation, large effusion and volume loss on the left. Man Mcdaniels MD Chest CT 12/29/16 0000 Signed Impressions: Service Date/Time: December 13:07 - CONCLUSION: 1. Either highly complex fluid or soft tissue mass involving the left lung base with mass effect. This measures 12.2 x 12.6 x 7.4 cm. An ultrasound canal differentiate. 2. 7 mm nodule on the left upper lobe. 3. Material filling the left mainstem bronchus either related to purulent material or mucus. There is resulting volume loss of the entire left lung. 4. 4.4 cm ascending aortic aneurysm. Art Tate Jr., MD Objective Remarks GENERAL: Patient is 56 yo lying in bed in NAD SKIN: Warm and dry. HEAD: Normocephalic. EYES: No scleral icterus. No injection or drainage. NECK: Supple, trachea midline. No JVD or lymphadenopathy. CARDIOVASCULAR: Regular rate and rhythm without murmurs, gallops, or rubs. RESPIRATORY: Breath sounds equal bilaterally. No accessory muscle use. GASTROINTESTINAL: Abdomen soft, non-tender, nondistended. MUSCULOSKELETAL: No cyanosis, or edema. Neuro: Awake and alert A/P Assessment and Plan 1. Acute respiratory insufficiency. 2. Left-sided consolidation with pleural effusion. 3. COPD exacerbation. 4. Hyponatremia/hypophos 5. Hypokalemia. 6. Urinary tract infection. 7. Mild thrombocytopenia. 8. Elevated AST. Plan Neuro: Awake and alert Pulm: Oxygen PRN maintain sats above 92%. Bronchodilators, solumederol 60mg Q6. Check CXR s/p CT guided left-sided thoracentesis and CT placement by IR yesterday. Send the pleural fluid for analysis, culture and cytology. N CT chest: Either highly complex fluid or soft tissue mass involving the left lung base with mass effect. This measures 12.2 x 12.6 x 7.4 cm. 4.4 cm ascending aortic aneurysm. Will check US chest to differentiate between solid vs cystic mass in chest if solid then patient will need CT guided needle biopsy to r/o malignancy. Pulm is following-Dr. Chung. CV: Monitor HR and BP and maintain MAP>65mmHg Lactic acid level measured at 2.1 in the ED. Check Echo to eval LV function GI: On PO diet : Monitor renal function I&O's and electrolyte replacement per protocol. Will need K, Phos replacement today ID: Continue with abx( Rocephin and Zithromax) and monitor for signs of infections(fever and WBC). Follow up on blood and urine cultures, Nasal aspirate screening for influenza is negative. Endo: SSI with Accu-Cheks for glycemic control. Heme: Monitor CBC. DVT prophylaxis with SCDs. Level 3 Harshad Gomez MD Dec 30, 2016 08:23
[2016-12-30] MEDS: DOCUSATE SODIUM 50 MG/SENNA 8.6 MG TAB PO SCH ×2 (09:11→21:00)
[2016-12-30] MEDS: PANTOPRAZOLE SODIUM 40 MG VIAL IV PUSH SCH (09:11)
[2016-12-30] MEDS ORDERED: oxyCODONE/ACETAMINOPHEN 5 MG/325 MG TAB PO ONE (09:30)
--- NOTE | 2016-12-30 09:49 | RADRPT ---
EXAM DATE/TIME: 12/30/2016 08:56 [facility] COMPARISON: CT THORAX W CONTRAST, December 29, 2016, 13:07. CHEST SINGLE AP, December 29, 2016, 10:24. INDICATIONS : Shortness of breath, concern for effusion. MEDICAL HISTORY : Chronic obstructive pulmonary disease. SURGICAL HISTORY : None. ENCOUNTER: Initial ACUITY: 1 day PAIN SCORE: 5/10 LOCATION: Left chest FINDINGS: Interval placement of left-sided chest tube. Large loculated left pleural effusion is largely unchang ed. Continued associated airspace consolidation and left hilar prominence. Mild interstitial prominen ce throughout the right lung likely due to decreased lung volumes. Cardiomediastinal contours are sta ble. Remainder of exam is unchanged. CONCLUSION: 1. Interval placement of left-sided chest tube without significant interval improvement in complex lo culated left-sided pleural effusion. 2. Redemonstration of left hilar mass and associated lower lobe collapse. David Mora MD on December 30, 2016 at 9:43 Board Certified Radiologist. This report was verified electronically.
[2016-12-30 10:02] LABS: TOTAL PROTEIN,PLEURAL FLUID 5.8 GM/DL
--- NOTE | 2016-12-30 11:34 | RADRPT ---
EXAM DATE/TIME: 12/30/2016 09:59 [facility] COMPARISON: CT THORAX W CONTRAST, December 29, 2016, 13:07. INDICATIONS : Possible mass vs. complex fluid seen on CT. MEDICAL HISTORY : Chronic obstructive pulmonary disease. Blood transfusion. SURGICAL HISTORY : Left chest tube. ENCOUNTER: Initial ACUITY: 1 day PAIN SCORE: 7/10 LOCATION: Left chest FINDINGS: Real-time ultrasound examination of the left chest was performed. A tube is seen in the left chest a nd there is intermediate echotexture material surrounding the tube measuring up to 7 cm in thickness. There is no anechoic fluid seen. CONCLUSION: No focal collections of anechoic free fluid. Prominent amount of heterogeneous echotexture material surrounding the left lower chest. Art Willard MD on December 30, 2016 at 11:14 Board Certified Radiologist. This report was verified electronically.
[2016-12-30 11:43] LABS: PLEURAL FLUID LYMPHS 18 %
[2016-12-30 12:27] LABS: AUTOMATED NEUTROPHIL # 4.3 TH/MM3 (1.8-7.7); BASOPHIL % 0.1 % (0.0-2.0); HEMATOCRIT 25.5 % (35.0-46.0); LYMPH % 7.4 % (9.0-44.0); LYMPHOCYTE # 0.4 TH/MM3 (1.0-4.8); MEAN CELL VOLUME 111.5 FL (80.0-100.0); MEAN CORPUSCULAR HEMOGLOBIN 37.8 PG (27.0-34.0); MEAN CORPUSCULAR HGB CONC 33.9 % (32.0-36.0); NEUT % 85.5 % (16.0-70.0); PLATELET COUNT 73 TH/MM3 (150-450); RED BLOOD COUNT 2.29 MIL/MM3 (4.00-5.30); RED CELL DISTRIBUTION WIDTH 14.1 % (11.6-17.2)
[2016-12-30 12:30] LABS: HEMO FLAGS AUTO DIFF
[2016-12-30] MEDS: cefTRIAXone INJ 1,000 MG in SODIUM CHLORIDE 0.9% INJ 100 ML IV SCH (12:30)
[2016-12-30] MEDS: AZITHROMYCIN INJ 500 MG in SODIUM CHLOR 0.9% 250 ML INJ 250 ML IV SCH (12:32)
--- NOTE | 2016-12-30 13:02 | HHI.PR ---
Subjective Remarks Pain along left chest wall. No SOB . Chest tube drained little Objective Vital Signs Date Time Temp Pulse Resp B/P (MAP) Pulse Ox O2 Delivery O2 Flow Rate FiO2 12/30/16 08:00 98.5 103 30 116/63 (80) 100 12/30/16 07:29 100 21 12/30/16 06:00 99 12/30/16 04:00 98.7 96 24 128/78 (95) 100 12/30/16 04:00 96 12/30/16 02:00 124 12/30/16 00:00 99 12/30/16 00:00 99.0 99 24 102/59 (73) 99 12/29/16 22:00 101 12/29/16 20:00 112 12/29/16 20:00 99.4 112 29 106/59 (75) 100 12/29/16 19:46 100 Nasal Cannula 2.00 12/29/16 18:00 98 12/29/16 16:15 97.1 112 30 105/64 (78) 100 12/29/16 16:05 (72) Nasal Cannula 4.00 12/29/16 16:00 95 12/29/16 14:35 115 24 101/57 (72) 100 Nasal Cannula 4.00 I/O 12/29/16 12/29/16 12/29/16 12/30/16 12/30/16 12/30/16 07:00 15:00 23:00 07:00 15:00 23:00 Intake Total 650 ml 357 ml Output Total 300 ml 350 ml Balance 650 ml 57 ml -350 ml Intake IV Total 650 ml 357 ml Output Urine Total 300 ml 350 ml # Bowel Movements 0 Result Diagram: 12/30/16 1145 12/30/16 0330 Objective Remarks GENERAL: This is an averagely built middle-aged white female who is pale and mildly dyspneic. HEENT: Head normocephalic. Pupils are reactive and equal. Tongue moist. Throat is mildly injected. Nasal mucosa edematous. NECK: Supple. No bruits, thyroid enlargement or lymphadenopathy. CHEST: Distant breath sounds at the lung bases with occasional crackles in the left upper lung field.Wheeze + HEART: The heart sounds are irregular, S1-S2. No murmur. No S3. ABDOMEN: Soft and nontender. No organomegaly. Bowel sounds are active. EXTREMITIES: Edema 1+ with diminished peripheral pulses. NEUROLOGIC: Reflexes are 1+ with no gross motor deficits. Cranial nerves grossly intact. RECTAL: Exam is deferred. SKIN: Dry and scaly. Assessment and Plan Assessment and Plan IMPRESSION 1. COPD with acute exacerbation 2. Chronic left basilar effusion with loculation 3. Atelectasis left lower lobe with mucus plugging. 4. Hyponatremia. 5. Abnormal liver enzymes 6. Anemia and chronic disease. Plan : 1. O2 2 L. 2. Chest tube to suction. 3. Cont Antibiotics , Rocephin ,Zithro. 4. CBC,CXR in am 5. Taper Solumedrol to 40 mg q8h 6. May need CT Guided needle biopsy Venessa Chung MD Dec 30, 2016 13:02
[2016-12-30 13:10] LABS: BANDS 18 % (0-6); EOSINOPHILS 1 % (0-4); NEUTROPHIL # MANUAL DIFF 4.6 TH/MM3 (1.8-7.7); PLATELET ESTIMATE SMEAR LOW (NORMAL); PLATELET MORPHOLOGY NORMAL (NORMAL); POLYS (SEG NEUTROPHILS) 74 % (16-70); SCAN/DIFF FINAL DIFF MANUAL; WBC DIFF SAMPLE 100
[2016-12-30] MEDS ORDERED: MORPHINE SULFATE 2 MG/ML INJ IV PUSH ONE (15:00)
--- NOTE | 2016-12-30 18:30 | ECHRPT ---
Indication: EVAL LV FUNCTION CONCLUSIONS Normal left ventricular size. Wall thickness is normal. The left ventricular systolic function is grossly normal on limited imaging. The left atrial size is moderately dilated. Mild mitral valve stenosis. Mild mitral annular calcification. Mild mitral valve regurgitation. Moderate calcifix aortic valve stenosis. Mxka-yp-xicdxyif aortic valve regurgitation. There is trace tricuspid valve regurgitation. The estimated pulmonary arterial pressure is 69.3 mmHg. There is estimated mpjhenrz-[id number] pulmonary hypertension present (range 60-70 mmHg). BP: 128 / 78 HR: Rhythm: Sinus MEASUREMENTS (Male / Female) Normal Values Technical Quality:Fair 2D ECHO LV Diastolic Diameter PLAX 3.7 cm 4.2 - 5.9 / 3.9 - 5.3 cm LV Systolic Diameter PLAX 2.4 cm IVS Diastolic Thickness 1.0 cm 0.6 - 1.0 / 0.6 - 0.9 cm LVPW Diastolic Thickness 1.0 cm 0.6 - 1.0 / 0.6 - 0.9 cm LV Relative Wall Thickness 0.5 LVOT Diameter 1.9 cm Aortic Root Diameter 3.0 cm LA Systolic Diameter LX 3.8 cm 3.0 - 4.0 / 2.7 - 3.8 cm DOPPLER AV Peak Velocity 459.0 cm/s AV Peak Gradient 84.3 mmHg AV Mean Gradient 49.0 mmHg AV Velocity Time Integral 90.5 cm LVOT Peak Velocity 116.7 cm/s LVOT Peak Gradient 5.4 mmHg LVOT Velocity Time Integral 23.0 cm AV Area Cont Eq vti 0.7 cm AV Area Cont Eq pk 0.7 cm MV Peak Velocity 237.6 cm/s MV Peak Gradient 22.6 mmHg MV Mean Velocity 131.2 cm/s MV Mean Gradient 8.4 mmHg Mitral E Point Velocity 78.2 cm/s Mitral A Point Velocity 96.7 cm/s Mitral E to A Ratio 0.8 TR Peak Velocity 385.0 cm/s TR Peak Gradient 59.3 mmHg Right Atrial Pressure 10.0 mmHg Pulmonary Artery Systolic Pressu 69.3 mmHg Right Ventricular Systolic Press 69.3 mmHg PV Peak Velocity 79.9 cm/s PV Peak Gradient 2.6 mmHg FINDINGS LEFT VENTRICLE Normal left ventricular size. Wall thickness is normal. The left ventricular systolic function is grossly normal on limited imaging. RIGHT VENTRICLE Normal right ventricular size and systolic function. LEFT ATRIUM The left atrial size is moderately dilated. RIGHT ATRIUM The right atrial size is normal. AORTA The aortic root and proximal ascending aorta are normal in size on limited imaging. MITRAL VALVE Mild mitral valve stenosis. Mild mitral annular calcification. Mild mitral valve regurgitation. AORTIC VALVE Moderate calcifix aortic valve stenosis. [id number] aortic valve regurgitation. TRICUSPID VALVE There is trace tricuspid valve regurgitation. The estimated pulmonary arterial pressure is 69.3 mmHg. There is estimated sbkumzvi-dy-vjzmla pulmonary hypertension present (range 60-70 mmHg). Chip Reynoso MD (Electronically Signed) Final Date:30 December 2016 18:30
[2016-12-30] MEDS ORDERED: MORPHINE SULFATE 2 MG/ML INJ IV PRN (22:30)
[2016-12-31] VITALS (14 sets, daily range): BP systolic 110–121; BP diastolic 62–74; PULSE 86–105; RESP 14–27; TEMP 97.9–99; O2SAT 93–99
[2016-12-31] MEDS: RESP: ALBUTEROL 2.5 MG/IPRATROPIUM 0.5 MG NEB (SCH) INH ×6 (04:00→23:44)
[2016-12-31] MEDS: CHLORHEXIDINE GLUCONATE 2 % 1 PACK (2 CLOTHS) TOP SCH (04:00)
[2016-12-31] MEDS: INSULIN NovoLIN REGULAR SUPPLEMENTAL SCALE SQ SCH ×3 (05:30→17:05)
[2016-12-31] MEDS: methylPREDNISolone SOD SUCC 40 MG/1 ML VIAL IV PUSH SCH ×4 (06:00→17:06)
[2016-12-31 06:33] LABS: AUTOMATED NEUTROPHIL # 4.2 TH/MM3 (1.8-7.7); HEMATOCRIT 25.1 % (35.0-46.0); LYMPH % 6.8 % (9.0-44.0); LYMPHOCYTE # 0.3 TH/MM3 (1.0-4.8); MEAN CELL VOLUME 112.7 FL (80.0-100.0); MEAN CORPUSCULAR HEMOGLOBIN 37.9 PG (27.0-34.0); MEAN CORPUSCULAR HGB CONC 33.6 % (32.0-36.0); MONO % 6.1 % (0.0-8.0); NEUT % 87.1 % (16.0-70.0); PLATELET COUNT 74 TH/MM3 (150-450); RED BLOOD COUNT 2.23 MIL/MM3 (4.00-5.30); RED CELL DISTRIBUTION WIDTH 14.2 % (11.6-17.2); WHITE BLOOD COUNT 4.8 TH/MM3 (4.0-11.0)
[2016-12-31 06:45] LABS: HEMO FLAGS AUTO DIFF
[2016-12-31 06:50] LABS: BICARBONATE 22.3 MEQ/L (21.0-32.0); MAGNESIUM 1.9 MG/DL (1.5-2.5); POTASSIUM 3.6 MEQ/L (3.5-5.1)
[2016-12-31 08:28] LABS: BANDS 10 % (0-6); NEUTROPHIL # MANUAL DIFF 4.6 TH/MM3 (1.8-7.7); PLATELET ESTIMATE SMEAR LOW (NORMAL); PLATELET MORPHOLOGY ENLARGED (NORMAL); POLYS (SEG NEUTROPHILS) 85 % (16-70); WBC DIFF SAMPLE 100
[2016-12-31 08:29] LABS: SCAN/DIFF FINAL DIFF MANUAL
[2016-12-31] MEDS: PANTOPRAZOLE SODIUM 40 MG VIAL IV PUSH SCH (08:54)
[2016-12-31] MEDS: DOCUSATE SODIUM 50 MG/SENNA 8.6 MG TAB PO SCH ×2 (08:55→21:00)
[2016-12-31] MEDS: cefTRIAXone INJ 1,000 MG in SODIUM CHLORIDE 0.9% INJ 100 ML IV SCH (11:13)
--- NOTE | 2016-12-31 11:15 | HHI.PR ---
Subjective Remarks 12/31 No events overnight. Patient is lying in bed in NAD Objective Vital Signs Vital Signs Date Time Temp Pulse Resp B/P (MAP) Pulse Ox O2 Delivery O2 Flow Rate FiO2 12/31/16 10:00 103 12/31/16 08:00 98.0 99 20 116/62 (80) 97 12/31/16 08:00 99 12/31/16 07:38 96 12/31/16 06:00 91 12/31/16 04:00 98.5 93 14 113/62 (79) 93 12/31/16 04:00 93 12/31/16 02:00 100 12/31/16 00:00 98.3 101 21 112/64 (80) 94 12/31/16 00:00 101 12/30/16 22:00 98 12/30/16 20:00 108 12/30/16 20:00 98.5 108 30 118/68 (85) 96 12/30/16 19:45 96 21 12/30/16 18:00 106 12/30/16 16:00 98.4 104 31 109/67 (81) 97 12/30/16 16:00 104 12/30/16 14:00 100 12/30/16 12:00 98.6 97 29 112/61 (78) 98 12/30/16 12:00 97 I/O 12/30/16 12/30/16 12/30/16 12/31/16 12/31/16 12/31/16 07:00 15:00 23:00 07:00 15:00 23:00 Intake Total 500 ml Output Total 350 ml 310 ml 300 ml Balance -350 ml 190 ml -300 ml Intake Oral 500 ml Output Urine Total 350 ml 300 ml 300 ml Chest Tube Drainage Total 10 ml # Bowel Movements 0 Result Diagram: 12/31/16 0541 12/31/16 0541 Other Results Last Impressions Chest X-Ray 12/30/16 0000 Signed Impressions: Service Date/Time: Friday, December 30, 2016 08:56 - CONCLUSION: 1. Interval placement of left-sided chest tube without significant interval improvement in complex loculated left-sided pleural effusion. 2. Redemonstration of left hilar mass and associated lower lobe collapse. David Mora MD Chest Ultrasound 12/30/16 0000 Signed Impressions: Service Date/Time: Friday, December 30, 2016 09:59 - CONCLUSION: No focal collections of anechoic free fluid. Prominent amount of heterogeneous echotexture material surrounding the left lower chest. Art Willard MD Chest Tube Insertion 12/29/16 1224 Signed Impressions: Service Date/Time: December 13:22 - CONCLUSION: Uncomplicated CT-guided thoracentesis. David Mora MD Chest CT 12/29/16 0000 Signed Impressions: Service Date/Time: December 13:07 - CONCLUSION: 1. Either highly complex fluid or soft tissue mass involving the left lung base with mass effect. This measures 12.2 x 12.6 x 7.4 cm. An ultrasound canal differentiate. 2. 7 mm nodule on the left upper lobe. 3. Material filling the left mainstem bronchus either related to purulent material or mucus. There is resulting volume loss of the entire left lung. 4. 4.4 cm ascending aortic aneurysm. Art Tate Jr., MD Objective Remarks GENERAL: Patient is 56 yo lying in bed in NAD SKIN: Warm and dry. HEAD: Normocephalic. EYES: No scleral icterus. No injection or drainage. NECK: Supple, trachea midline. No JVD or lymphadenopathy. CARDIOVASCULAR: Regular rate and rhythm without murmurs, gallops, or rubs. RESPIRATORY: Breath sounds equal bilaterally. No accessory muscle use. GASTROINTESTINAL: Abdomen soft, non-tender, nondistended. MUSCULOSKELETAL: No cyanosis, or edema. BACK: Nontender without obvious deformity. No CVA tenderness. Neuro: Awake and alert A/P Assessment and Plan 1)Resp Insuff 2)Left-sided consolidation 3)Exudative pleural effusion. 4)COPD exacerbation. 5)Urinary tract infection. 6)Hx tobacco use 7)Anemia, thrombocytopenia Plan Continue with oxygen maintain sats above 92%. Bronchodilators, solumederol 40mg Q6. s/p CT guided left-sided thoracentesis and CT placement by IR 12/29 Exudative effusion. Follow up on cytology CT chest: Either highly complex fluid or soft tissue mass involving the left lung base with mass effect. This measures 12.2 x 12.6 x 7.4 cm. 4.4 cm ascending aortic aneurysm. Will repeat CT chest. Might need CT guided biopsy Monitor CT drainage. Continue with abx ( Rocephin,, Zithromax) Continue treatment plan. Harshad Gomez MD Dec 31, 2016 11:15
[2016-12-31] MEDS: AZITHROMYCIN INJ 500 MG in SODIUM CHLOR 0.9% 250 ML INJ 250 ML IV SCH (11:48)
--- NOTE | 2016-12-31 13:49 | HHI.CCPN ---
Subjective Remarks/Hospital Course The patient is a 56-year-old female with past medical history of COPD, who presented to [facility] ED with complaints of coughing, wheezing. The patient states that she had food poisoning last week where she had nausea and diarrhea, after she ate suspicious food. She denies any worsening of dyspnea from baseline. In addition, she denies any constitutional symptoms. She quit smoking five and a half years ago and used to smoke one to two packs per day for about 30 years. Chest x-ray in the ER showed consolidation with large effusion and volume loss on the left. On further history she denies any hemoptysis, however, she reports 20 pounds weight loss in the last 4 months and decreased p.o. intake. She is being followed up by Dr. Chung her outpatient buying intern. The patient denies any use of oxygen at home, however, she is on bronchodilators p.r.n. Her laboratory data is significant for hyponatremia with sodium level 125, lactic acid level 2.1. On arrival to the ER she was tachycardic and tachypneic. When seen the patient is on 4 liters nasal cannula with saturation ranges between 95-100%. In the ER she was given Rocephin, azithromycin, Solu-Medrol, bronchodilator treatment and IV fluids. Her current blood pressure is 107/61. 12/30 Patient s/p CT guided thoracentesis and CT placement by IR yesterday. She is feeling better. Subjective: 12/31 She complains of pain and requests increased pain meds. Repeat imaging ordered per pulmonology to evaluate mass vs loculated effusion. On NC. Objective Vital Signs Date Time Temp Pulse Resp B/P (MAP) Pulse Ox O2 Delivery O2 Flow Rate FiO2 12/31/16 12:00 99.0 99 25 119/65 (83) 99 12/30/16 19:45 21 12/29/16 19:46 Nasal Cannula 2.00 Intake and Output 12/31/16 12/31/16 01/01/17 08:00 16:00 00:00 Output Total 300 ml Balance -300 ml Result Diagram: 12/31/16 0541 12/31/16 0541 Other Results Microbiology Date/Time Source Procedure Growth Status 12/29/16 10:10 Nasal Aspirate Influenza Types A,B Antigen (BELINDA) - Final NEGATIVE FOR FLU A AND B ANTIGEN.... Complete 12/29/16 10:05 Urine Clean Catch Urine Culture - Final Klebsiella Pneumoniae Complete Imaging Last Impressions Chest Tube Insertion 12/29/16 1224 Signed Impressions: Service Date/Time: December 13:22 - CONCLUSION: Uncomplicated CT-guided thoracentesis. Dvaid Mora MD Chest X-Ray 12/29/16 1003 Signed Impressions: Service Date/Time: December 10:24 - CONCLUSION: Combination of extensive consolidation, large effusion and volume loss on the left. Man Mcdaniels MD Chest CT 12/29/16 0000 Signed Impressions: Service Date/Time: , December 29, 2016 13:07 - CONCLUSION: 1. Either highly complex fluid or soft tissue mass involving the left lung base with mass effect. This measures 12.2 x 12.6 x 7.4 cm. An ultrasound canal differentiate. 2. 7 mm nodule on the left upper lobe. 3. Material filling the left mainstem bronchus either related to purulent material or mucus. There is resulting volume loss of the entire left lung. 4. 4.4 cm ascending aortic aneurysm. Art Tate Jr., MD Objective Remarks GENERAL: Patient is 56 yo lying in bed in NAD SKIN: Warm and dry. HEAD: Normocephalic. EYES: No scleral icterus. No injection or drainage. NECK: Supple, trachea midline. No JVD or lymphadenopathy. CARDIOVASCULAR: Regular rate and rhythm without murmurs, gallops, or rubs. RESPIRATORY: Breath sounds equal bilaterally. No accessory muscle use. GASTROINTESTINAL: Abdomen soft, non-tender, nondistended. MUSCULOSKELETAL: No cyanosis, or edema. Neuro: Awake and alert A/P Assessment and Plan 1. Acute respiratory insufficiency. 2. Left-sided consolidation with pleural effusion. 3. COPD exacerbation. 4. Hyponatremia/hypophos 5. Hypokalemia. 6. Urinary tract infection. 7. Mild thrombocytopenia. 8. Elevated AST. Plan Neuro: Awake and alert Pulm: Oxygen PRN maintain sats above 92%. Bronchodilators, solumederol 60mg Q6. Check CXR s/p CT guided left-sided thoracentesis and CT placement by IR yesterday. Send the pleural fluid for analysis, culture and cytology. N CT chest: Either highly complex fluid or soft tissue mass involving the left lung base with mass effect. This measures 12.2 x 12.6 x 7.4 cm. 4.4 cm ascending aortic aneurysm. Will check US chest to differentiate between solid vs cystic mass in chest if solid then patient will need CT guided needle biopsy to r/o malignancy. Pulm is following-Dr. Chung. CV: Monitor HR and BP and maintain MAP>65mmHg Lactic acid level measured at 2.1 in the ED. Check Echo to eval LV function GI: On PO diet : Monitor renal function I&O's and electrolyte replacement per protocol. Will need K, Phos replacement today ID: Continue with abx( Rocephin and Zithromax) and monitor for signs of infections(fever and WBC). Follow up on blood and urine cultures, Nasal aspirate screening for influenza is negative. Endo: SSI with Accu-Cheks for glycemic control. Heme: Monitor CBC. DVT prophylaxis with SCDs. Level 3 Cherrie Helton MD Dec 31, 2016 13:49
[2016-12-31] MEDS: MORPHINE SULFATE 2 MG/ML INJ IV PRN ×2 (14:00→21:20)
--- NOTE | 2016-12-31 14:01 | PD.TRANSFR ---
Transfer Summary Admission Date Dec 29, 2016 at 12:25 Transfer Date: Dec 31, 2016 Admitting Diagnosis respiratory distress, left pleural effusion, hyponatremia, elevated Diagnoses: (1) Pleural effusion on left Diagnosis: Principal (2) Respiratory distress Diagnosis: Principal (3) Hyponatremia Diagnosis: Secondary (4) COPD (chronic obstructive pulmonary disease) Diagnosis: Secondary (5) Tobacco abuse Diagnosis: Secondary Transfer Summary/Subjective The patient is a 56-year-old female with past medical history of COPD, who presented to [facility] ED with complaints of coughing, wheezing. The patient states that she had food poisoning last week where she had nausea and diarrhea, after she ate suspicious food. She denies any worsening of dyspnea from baseline. In addition, she denies any constitutional symptoms. She quit smoking five and a half years ago and used to smoke one to two packs per day for about 30 years. Chest x-ray in the ER showed consolidation with large effusion and volume loss on the left. On further history she denies any hemoptysis, however, she reports 20 pounds weight loss in the last 4 months and decreased p.o. intake. She is being followed up by Dr. Chung her outpatient farm planner. The patient denies any use of oxygen at home, however, she is on bronchodilators p.r.n. Her laboratory data is significant for hyponatremia with sodium level 125, lactic acid level 2.1. On arrival to the ER she was tachycardic and tachypneic. When seen the patient is on 4 liters nasal cannula with saturation ranges between 95-100%. In the ER she was given Rocephin, azithromycin, Solu-Medrol, bronchodilator treatment and IV fluids. Her current blood pressure is 107/61. Subjective: 12/31 She complains of pain at chest tube site and requests increased pain meds. Repeat imaging ordered per pulmonology to evaluate mass vs loculated effusion. Pleural fluid studies exudative. Pleural fluid culture NGTD. On RA. Objective Vital Signs Date Time Temp Pulse Resp B/P (MAP) Pulse Ox O2 Delivery O2 Flow Rate FiO2 12/31/16 12:00 99.0 99 25 119/65 (83) 99 12/30/16 19:45 21 12/29/16 19:46 Nasal Cannula 2.00 Intake and Output 12/31/16 12/31/1617 08:00 16:00 00:00 Output Total 300 ml Balance -300 ml Result Diagram: 12/31/16 0541 12/31/16 0541 Other Results Microbiology Date/Time Source Procedure Growth Status 12/29/16 10:10 Nasal Aspirate Influenza Types A,B Antigen (BELINDA) - Final NEGATIVE FOR FLU A AND B ANTIGEN.... Complete 12/29/16 10:05 Urine Clean Catch Urine Culture - Final Klebsiella Pneumoniae Complete Imaging Last Impressions Chest Tube Insertion 12/29/16 1224 Signed Impressions: Service Date/Time: December 13:22 - CONCLUSION: Uncomplicated CT-guided thoracentesis. David Mora MD Chest X-Ray 12/29/16 1003 Signed Impressions: Service Date/Time: December 10:24 - CONCLUSION: Combination of extensive consolidation, large effusion and volume loss on the left. Man Mcdaniels MD Chest CT 12/29/16 0000 Signed Impressions: Service Date/Time: December 13:07 - CONCLUSION: 1. Either highly complex fluid or soft tissue mass involving the left lung base with mass effect. This measures 12.2 x 12.6 x 7.4 cm. An ultrasound canal differentiate. 2. 7 mm nodule on the left upper lobe. 3. Material filling the left mainstem bronchus either related to purulent material or mucus. There is resulting volume loss of the entire left lung. 4. 4.4 cm ascending aortic aneurysm. Art Tate Jr., MD Objective Remarks GENERAL: Patient is 56 yo female who is pale chronically ill appearing, sitting up in [facility] bed on RA. Talkative. SKIN: Warm and dry. HEAD: Normocephalic. EYES: No scleral icterus. No injection or drainage. NECK: Supple, trachea midline. No JVD or lymphadenopathy. CARDIOVASCULAR: Regular rate and rhythm with 3/6 systolic murmur LSB. RESPIRATORY: Mildly tachypneic without accessory muscle use. Diminished breath sounds bibasilar, worse on the left. L chest tube to suction with no airleak. GASTROINTESTINAL: Abdomen soft, non-tender, nondistended. Bowel sounds present. : Bangura in place with yellow urine output. MUSCULOSKELETAL: No cyanosis. Trace edema NEURO: Awake and alert, moving all extremities with no focal deficit. Procedures CT guided thoracentesis with L chest tube placement 12/29 Dr. Mora A/P Problem List: (1) Pain ICD Code: R52 - Pain, unspecified Status: Acute (2) Tobacco abuse ICD Code: Z72.0 - Tobacco use Status: Chronic (3) COPD (chronic obstructive pulmonary disease) ICD Code: J44.9 - Chronic obstructive pulmonary disease, unspecified Status: Chronic (4) Pleural effusion on left ICD Code: J90 - Pleural effusion, not elsewhere classified Status: Acute (5) Hyponatremia ICD Code: E87.1 - Hypo-osmolality and hyponatremia Status: Acute (6) Respiratory distress ICD Code: R06.00 - Dyspnea, unspecified Status: Resolved (7) UTI (urinary tract infection) ICD Code: N39.0 - Urinary tract infection, site not specified Status: Acute (8) Physical deconditioning ICD Code: R53.81 - Other malaise Status: Chronic Assessment and Plan 1. Acute respiratory insufficiency. 2. Left-sided consolidation with pleural effusion. 3. COPD exacerbation. 4. Hyponatremia/hypophos 5. Hypokalemia. 6. Urinary tract infection. 7. Mild thrombocytopenia. 8. Elevated AST. Plan Neuro: Pain secondary to chest tube site. Lortab 5-10 q6 hours. Morphine prn breakthrough pain. Deconditioning - PT consult. Pulm: Left exudative pleural effusion, now s/p chest tube placement COPD Tobacco abuse ?L lung mass vs loculated effusion/ On RA. Bronchodilators, Solumedrol 40 mg IV q6 hours per pulmonology s/p CT guided left-sided thoracentesis and CT placement by IR 12/29/16 Pleural fluid studies exudative. Pleural fluid culture negative. Cytology pending. CT chest: Either highly complex fluid or soft tissue mass involving the left lung base with mass effect. This measures 12.2 x 12.6 x 7.4 cm. 4.4 cm ascending aortic aneurysm. US chest to differentiate between solid vs cystic mass in chest, but inconclusive. Repeating CT chest if solid then patient will need CT guided needle biopsy to r/o malignancy. Pulm is following-Dr. Chung. CV: Pulmonary hypertension by echo Monitor HR and BP and maintain MAP>65mmHg Lactic acid level measured at 2.1 in the ED. Echo 12/30 - systolic function grossly normal. I'll do moderate aortic valve regurgitation. Moderate to severe pulmonary hypertension.. GI: Heart healthy diet. : Hyponatremia ?chronic but chronicity not truly known Hypokalemia, resolved D/c bangura ID: UTI Community acquired, possibly post-obstructive pneuonia. On rocephin and azithromycin 12/29 #3. UTI present on admission with culture positive for pansensitive Klebsiella. Bangura in place now, no longer needed so will d/c. D/c Rocephin after 7 days. Influenza screen, blood and pleural fluid cultures negative to date. . Endo: SSI with Accu-Cheks for glycemic control. Heme: Monitor CBC. DVT prophylaxis with SCDs. Change GI prophylaxis to Protonix 40 mg by mouth daily while on steroids. Patient updated at bedside. Discussed with Dr. Gomez who is covering for pulmonology. Transfer patient to floor. Consult hospitalist to assume care. Level 2 Cherrie Helton MD Dec 31, 2016 14:01
[2016-12-31] MEDS ORDERED: IOHEXOL 350 MG/ML 10 ML VIAL (for RAD DIAG) IVCONTRAST ONE (14:59)
--- NOTE | 2016-12-31 15:21 | RADRPT ---
EXAM DATE/TIME: 12/31/2016 14:44 [facility] COMPARISON: US CHEST LEFT, December 30, 2016, 9:59. CHEST SINGLE AP, December 30, 2016, 8:56. CT THORAX W CONTRAS T, December 29, 2016, 13:07. INDICATIONS : Respiratory distress; mass verses loculated effusion. Status post recent thoracentesis and chest tube placement. Abnormal chest ultrasound demonstrating heterogeneous echogenic material in the left pleu ral space. IV CONTRAST: 70 cc Omnipaque 350 (iohexol) IV RADIATION DOSE: 8.81 CTDIvol (mGy) MEDICAL HISTORY : None SURGICAL HISTORY : None. ENCOUNTER: Initial ACUITY: 1 day PAIN SCALE: 7/10 LOCATION: Left chest TECHNIQUE: Volumetric scanning of the chest was performed. Using automated exposure control and adjustment of t he mA and/or kV according to patient size, radiation dose was kept as low as reasonably achievable to obtain optimal diagnostic quality images. DICOM format image data is available electronically for review and comparison. Follow-up recommendations for detected pulmonary nodules are based at a minimum on nodule size and pa tient risk factors according to Fleischner Society Guidelines. FINDINGS: LUNGS: Mild consolidation is now noted in the posterior right lower lobe which is new from the recent study. Volume loss remains in the left hemithorax with consolidation in the infrahilar region with air bron chograms. PLEURA: There is a new small right pleural effusion. There's been interval placement of a percutaneous left-s ided chest tube into the low density mildly heterogeneous collection in the left lower hemithorax. Th e collection measures up to 12.4 x 6.5 cm in diameter compared to 12.6 x 8 cm on the prior study. The re some peripheral calcifications again noted posteriorly. A MEDIASTINUM: The heart and great vessels demonstrate no acute abnormality. There is no mediastinal or hilar lymph adenopathy. AXILLAE: Within normal limits. No lymphadenopathy. SKELETAL: Within normal limits for patient age. MISCELLANEOUS: The visualized upper abdominal organs demonstrate no acute abnormality. CONCLUSION: 1. Interval placement of left-sided chest tube with slight decrease in the complex low-density fluid collection in the lower left hemithorax. 2. Volume loss remains in the left hemithorax with consolidation in the left infrahilar region 3. New small right pleural effusion and consolidation in the right posterior lower lobe 4. The previously noted fluid and debris in the left mainstem bronchus is no longer present. Kashif Garcia MD on December 31, 2016 at 15:12 Board Certified Radiologist. This report was verified electronically.
[2016-12-31] MEDS: ACETAMINOPHEN/HYDROcodone 325 MG/5 MG TAB PO PRN (17:08)
[2017-01-01] VITALS (15 sets, daily range): BP systolic 114–179; BP diastolic 66–94; PULSE 79–109; RESP 15–36; TEMP 97.4–98.6; O2SAT 94–97
[2017-01-01] MEDS: methylPREDNISolone SOD SUCC 40 MG/1 ML VIAL IV PUSH SCH ×3 (00:18→19:34)
[2017-01-01] MEDS: INSULIN NovoLIN REGULAR SUPPLEMENTAL SCALE SQ SCH ×5 (00:19→23:18)
[2017-01-01] MEDS: RESP: ALBUTEROL 2.5 MG/IPRATROPIUM 0.5 MG NEB (SCH) INH ×5 (03:44→20:09)
[2017-01-01] MEDS: CHLORHEXIDINE GLUCONATE 2 % 1 PACK (2 CLOTHS) TOP SCH (04:00)
[2017-01-01] MEDS: ACETAMINOPHEN/HYDROcodone 325 MG/5 MG TAB PO PRN ×3 (05:07→23:14)
[2017-01-01 05:29] LABS: AUTOMATED NEUTROPHIL # 2.9 TH/MM3 (1.8-7.7); BASOPHIL % 0.1 % (0.0-2.0); HEMATOCRIT 24.1 % (35.0-46.0); LYMPH % 8.4 % (9.0-44.0); LYMPHOCYTE # 0.3 TH/MM3 (1.0-4.8); MEAN CELL VOLUME 110.7 FL (80.0-100.0); MEAN CORPUSCULAR HEMOGLOBIN 37.3 PG (27.0-34.0); MEAN CORPUSCULAR HGB CONC 33.7 % (32.0-36.0); MONO % 5.9 % (0.0-8.0); NEUT % 85.6 % (16.0-70.0); PLATELET COUNT 76 TH/MM3 (150-450); RED BLOOD COUNT 2.18 MIL/MM3 (4.00-5.30); RED CELL DISTRIBUTION WIDTH 14.5 % (11.6-17.2); WHITE BLOOD COUNT 3.3 TH/MM3 (4.0-11.0)
[2017-01-01 05:36] LABS: HEMO FLAGS AUTO DIFF
[2017-01-01 05:54] LABS: BICARBONATE 27.1 MEQ/L (21.0-32.0); POTASSIUM 3.9 MEQ/L (3.5-5.1)
[2017-01-01 07:52] LABS: PLATELET ESTIMATE SMEAR LOW (NORMAL); PLATELET MORPHOLOGY NORMAL (NORMAL); SCAN/DIFF AUTO DIFF CONFIRMED
[2017-01-01] MEDS: DOCUSATE SODIUM 50 MG/SENNA 8.6 MG TAB PO SCH ×2 (08:34→19:39)
[2017-01-01] MEDS: PANTOPRAZOLE SOD 40 MG DELAYED RELEASE TAB PO SCH (08:34)
[2017-01-01] MEDS: MORPHINE SULFATE 2 MG/ML INJ IV PRN (10:48)
--- NOTE | 2017-01-01 11:26 | HHI.PR ---
Subjective Remarks The patient was resting in bed comfortably. She said she could not urinate without a Cabrera catheter because she will not let herself. She is requesting a catheter for 1-2 days. She says her breathing is fine. She says she has not had a bowel movement since her bout with diarrhea. She says the chest tube is not draining. It is tender on the left side. Discussed with nursing and her family. Objective Vitals Vital Signs Date Time Temp Pulse Resp B/P (MAP) Pulse Ox O2 Delivery O2 Flow Rate FiO2 01/01/17 10:00 109 01/01/17 08:51 96 01/01/17 08:00 102 01/01/17 08:00 97.8 102 36 179/91 (120) 96 01/01/17 06:00 79 01/01/17 04:00 98.2 91 25 114/71 (85) 96 01/01/17 04:00 91 01/01/17 02:00 93 01/01/17 00:00 98.2 86 19 122/74 (90) 96 01/01/17 00:00 86 12/31/16 22:00 86 12/31/16 21:25 18 12/31/16 20:25 98 21 12/31/16 20:00 97.9 94 27 121/74 (90) 97 12/31/16 20:00 94 12/31/16 18:08 12 12/31/16 18:00 104 12/31/16 16:00 98.9 94 24 110/68 (82) 95 12/31/16 16:00 94 12/31/16 14:00 105 12/31/16 12:00 99.0 99 25 119/65 (83) 99 12/31/16 12:00 99 12/31/16 11:17 28 I/O 12/31/16 12/31/16 12/31/16 01/01/17 01/01/17 01/01/17 07:00 15:00 23:00 07:00 15:00 23:00 Intake Total 660 ml 350 ml 475 ml 0 ml Output Total 300 ml 325 ml 20 ml Balance 360 ml 350 ml 150 ml -20 ml Intake Oral 475 ml 0 ml IV Total 660 ml 350 ml Output Urine Total 300 ml 325 ml 0 ml Chest Tube Drainage Total 0 ml 20 ml # Bowel Movements 0 0 Result Diagram: 01/01/17 0458 01/01/17 0458 Imaging Last Impressions Chest CT 12/31/16 0000 Signed Impressions: Service Date/Time: Saturday, December 31, 2016 14:44 - CONCLUSION: 1. Interval placement of left-sided chest tube with slight decrease in the complex low-density fluid collection in the lower left hemithorax. 2. Volume loss remains in the left hemithorax with consolidation in the left infrahilar region 3. New small right pleural effusion and consolidation in the right posterior lower lobe 4. The previously noted fluid and debris in the left mainstem bronchus is no longer present. Kashif Garcia MD Chest X-Ray 12/30/16 0000 Signed Impressions: Service Date/Time: Friday, December 30, 2016 08:56 - CONCLUSION: 1. Interval placement of left-sided chest tube without significant interval improvement in complex loculated left-sided pleural effusion. 2. Redemonstration of left hilar mass and associated lower lobe collapse. David Mora MD Chest Ultrasound 12/30/16 0000 Signed Impressions: Service Date/Time: Friday, December 30, 2016 09:59 - CONCLUSION: No focal collections of anechoic free fluid. Prominent amount of heterogeneous echotexture material surrounding the left lower chest. Art Willard MD Chest Tube Insertion 12/29/16 1224 Signed Impressions: Service Date/Time: December 13:22 - CONCLUSION: Uncomplicated CT-guided thoracentesis. David Mora MD Objective Remarks GENERAL: Resting comfortably. SKIN: Warm and dry. HEAD: Normocephalic. EYES: No scleral icterus. No injection or drainage. NECK: Supple, trachea midline. No JVD or lymphadenopathy. CARDIOVASCULAR: Regular rate and rhythm with 3/6 systolic murmur LSB. RESPIRATORY: Diminished breath sounds bibasilar, worse on the left. L chest tube to suction with no airleak. GASTROINTESTINAL: Abdomen soft, non-tender, nondistended. Bowel sounds present. MUSCULOSKELETAL: No cyanosis. Trace edema NEURO: Awake and alert, moving all extremities with no focal deficit. PSYCH: Mood and affect appropriate. Procedures CT guided thoracentesis with L chest tube placement 12/29 Dr. Mora Medications and IVs Current Medications Medications (Trade) Dose Ordered Sig/Armin Route Start Time Stop Time Status Last Admin (NS Flush) 2 ml UNSCH PRN IVF 12/29/16 10:15 (Duoneb Neb) 1 ampule Q4HR NEB INH 12/29/16 12:00 01/01/17 08:49 (Duoneb Neb) 1 ampule Q2HR NEB PRN INH 12/29/16 11:30 12/30/16 04:19 Miscellaneous Information 1 Q361D XX 12/29/16 11:30 12/29/16 21:22 (Chlorhexidine 2% Cloth) 3 pack Taper DAILY@04 TOP 12/30/16 04:00 12/26/17 03:59 01/01/17 04:00 (Chlorhexidine 2% Cloth) 3 pack UNSCH PRN TOP 12/29/16 11:30 (Elvie-Colace) 1 tab BID PO 12/29/16 21:00 01/01/17 08:34 (Milk Of Magnesia Liq) 30 ml Q12H PRN PO 12/29/16 11:30 (Senokot) 17.2 mg Q12H PRN PO 12/29/16 11:30 (Dulcolax Supp) 10 mg DAILY PRN RECTAL 12/29/16 11:30 (Lactulose Liq) 30 ml DAILY PRN PO 12/29/16 11:30 (D50w (Vial) Inj) 50 ml UNSCH PRN IV PUSH 12/29/16 11:30 (Glucagon Inj) 1 mg UNSCH PRN OTHER 12/29/16 11:30 (NovoLIN R SUPPLEMENTAL SCALE) 1 Q6H SQ 12/29/16 11:30 01/01/17 00:19 Ceftriaxone Sodium 1000 mg/ Sodium Chloride 100 ml @ 200 mls/hr Q24H IV 12/30/16 12:00 01/04/17 11:59 12/31/16 11:13 (Tylenol) 650 mg Q6H PRN PO 12/30/16 04:15 12/30/16 04:13 (SoluMEDROL INJ) 40 mg Q6HR IV PUSH 12/30/16 18:00 01/01/17 05:12 (Tylenol) 650 mg Q6H PRN PO 12/30/16 22:30 (Morphine Inj) 2 mg Q4H PRN IV 12/31/16 14:30 01/01/17 10:48 ([place] 5-325 Mg) 1 tab Q6H PRN PO 12/31/16 13:45 12/31/16 17:08 ([place] 5-325 Mg) 2 tab Q6H PRN PO 12/31/16 13:45 01/01/17 05:07 (Protonix) 40 mg DAILY PO 01/01/17 09:00 01/01/17 08:34 Azithromycin 500 mg/Sodium Chloride 250 ml @ 250 mls/hr Q24H IV 01/02/17 13:00 A/P Problem List: (1) Pleural effusion on left ICD Code: J90 - Pleural effusion, not elsewhere classified Status: Acute (2) Respiratory distress ICD Code: R06.00 - Dyspnea, unspecified Status: Resolved (3) Hyponatremia ICD Code: E87.1 - Hypo-osmolality and hyponatremia Status: Acute (4) COPD (chronic obstructive pulmonary disease) ICD Code: J44.9 - Chronic obstructive pulmonary disease, unspecified Status: Chronic (5) Tobacco abuse ICD Code: Z72.0 - Tobacco use Status: Chronic Assessment and Plan Left exudative pleural effusion/ CAP/ COPD CT chest: Either highly complex fluid or soft tissue mass involving the left lung base with mass effect. This measures 12.2 x 12.6 x 7.4 cm. S/p CT guided left-sided thoracentesis and CT placement by IR 12/29/16. No recent drainage. Pleural fluid studies exudative. Pleural fluid culture negative. Repeat CT showed: Interval placement of left-sided chest tube with slight decrease in the complex low-density fluid collection in the lower left hemithorax; Volume loss remains in the left hemithorax with consolidation in the left infrahilar region ; New small right pleural effusion and consolidation in the right posterior lower lob. - Bronchodilators, Solumedrol 40 mg IV q6 hours per pulmonology. - Cytology pending. - Pulm is following-Dr. Chung. - encourage ambulation, IS. - continue Rocephin and azithromycin started on 12/29. Pulmonary hypertension Echo 12/30 - systolic function grossly normal; mild to moderate aortic valve regurgitation; moderate to severe pulmonary hypertension. - pulmonology following. Urinary retention/ UTI Klebsiella noted in urine. The pt said she will not urinate without a Cabrera and requests an additional 1-2 days of Cabrera. - Cabrera ordered 01/01. Should be removed by 01/03. - continue antibiotics. Pancytopenia Possibly s/t malignant process. - follow pleural cytology. - follow CBC. AAA Imaging revealed a 4.4 cm ascending aortic aneurysm. - outpt follow-up. PPx: SCDs Discharge Planning Awaiting improvement, transfer to floor Kashif Ndiaye DO Jan 01, 2017 11:26
--- NOTE | 2017-01-01 11:39 | HHI.PR ---
Subjective Remarks Patient is lying in bed in NAD. Afebrile. Objective Vital Signs Vital Signs Date Time Temp Pulse Resp B/P (MAP) Pulse Ox O2 Delivery O2 Flow Rate FiO2 01/01/17 10:00 109 01/01/17 08:51 96 01/01/17 08:00 102 01/01/17 08:00 97.8 102 36 179/91 (120) 96 01/01/17 06:00 79 01/01/17 04:00 98.2 91 25 114/71 (85) 96 01/01/17 04:00 91 01/01/17 02:00 93 01/01/17 00:00 98.2 86 19 122/74 (90) 96 01/01/17 00:00 86 12/31/16 22:00 86 12/31/16 21:25 18 12/31/16 20:25 98 21 12/31/16 20:00 97.9 94 27 121/74 (90) 97 12/31/16 20:00 94 12/31/16 18:08 12 12/31/16 18:00 104 12/31/16 16:00 98.9 94 24 110/68 (82) 95 12/31/16 16:00 94 12/31/16 14:00 105 12/31/16 12:00 99.0 99 25 119/65 (83) 99 12/31/16 12:00 99 I/O 12/31/16 12/31/16 12/31/16 01/01/17 01/01/17 01/01/17 07:00 15:00 23:00 07:00 15:00 23:00 Intake Total 660 ml 350 ml 475 ml 0 ml Output Total 300 ml 325 ml 20 ml Balance 360 ml 350 ml 150 ml -20 ml Intake Oral 475 ml 0 ml IV Total 660 ml 350 ml Output Urine Total 300 ml 325 ml 0 ml Chest Tube Drainage Total 0 ml 20 ml # Bowel Movements 0 0 Result Diagram: 01/01/17 0458 01/01/17 0458 Other Results Last Impressions Chest CT 12/31/16 0000 Signed Impressions: Service Date/Time: Saturday, December 31, 2016 14:44 - CONCLUSION: 1. Interval placement of left-sided chest tube with slight decrease in the complex low-density fluid collection in the lower left hemithorax. 2. Volume loss remains in the left hemithorax with consolidation in the left infrahilar region 3. New small right pleural effusion and consolidation in the right posterior lower lobe 4. The previously noted fluid and debris in the left mainstem bronchus is no longer present. Kashif Garcia MD Chest X-Ray 12/30/16 0000 Signed Impressions: Service Date/Time: Friday, December 30, 2016 08:56 - CONCLUSION: 1. Interval placement of left-sided chest tube without significant interval improvement in complex loculated left-sided pleural effusion. 2. Redemonstration of left hilar mass and associated lower lobe collapse. David Mora MD Chest Ultrasound 12/30/16 0000 Signed Impressions: Service Date/Time: Friday, December 30, 2016 09:59 - CONCLUSION: No focal collections of anechoic free fluid. Prominent amount of heterogeneous echotexture material surrounding the left lower chest. Art Willard MD Chest Tube Insertion 12/29/16 1224 Signed Impressions: Service Date/Time: December 13:22 - CONCLUSION: Uncomplicated CT-guided thoracentesis. David Mora MD Objective Remarks GENERAL: Patient is 56 yo lying in bed in NAD SKIN: Warm and dry. HEAD: Normocephalic. EYES: No scleral icterus. No injection or drainage. NECK: Supple, trachea midline. No JVD or lymphadenopathy. CARDIOVASCULAR: Regular rate and rhythm without murmurs, gallops, or rubs. RESPIRATORY: Breath sounds equal bilaterally. No accessory muscle use. GASTROINTESTINAL: Abdomen soft, non-tender, nondistended. MUSCULOSKELETAL: No cyanosis, or edema. BACK: Nontender without obvious deformity. No CVA tenderness. Neuro: Awake and alert A/P Assessment and Plan 1)Resp Insuff 2)Left-sided consolidation 3)Exudative pleural effusion. 4)COPD exacerbation. 5)Urinary tract infection. 6)Hx tobacco use 7)Anemia, thrombocytopenia Plan Continue with oxygen maintain sats above 92%. Bronchodilators, decrease solumederol 40mg Q12. s/p CT guided left-sided thoracentesis and CT placement by IR 12/29 Exudative effusion. Follow up on cytology Repeat CT chest 01/01: Interval placement of left-sided chest tube with slight decrease in the complex low-density fluid collection in the lower left hemithorax. Volume loss remains in the left hemithorax with consolidation in the left infrahilar region. New small right pleural effusion and consolidation in the right posterior lower lobe. CT chest 12/29 : Either highly complex fluid or soft tissue mass involving the left lung base with mass effect. This measures 12.2 x 12.6 x 7.4 cm. 4.4 cm ascending aortic aneurysm. Will consult CTS -eval for decortication. Discussed with Dr. Jefferson. Monitor CT drainage. Continue with abx ( Rocephin,, Zithromax) Continue treatment plan. Harshad Gomez MD Jan 01, 2017 11:39
[2017-01-01] MEDS: cefTRIAXone INJ 1,000 MG in SODIUM CHLORIDE 0.9% INJ 100 ML IV SCH (12:00)
[2017-01-02] VITALS (7 sets, daily range): BP systolic 122–141; BP diastolic 71–83; PULSE 91–107; RESP 18–20; TEMP 97.5–98; O2SAT 94–99
[2017-01-02] MEDS: RESP: ALBUTEROL 2.5 MG/IPRATROPIUM 0.5 MG NEB (SCH) INH ×3 (00:48→07:58)
[2017-01-02] MEDS: CHLORHEXIDINE GLUCONATE 2 % 1 PACK (2 CLOTHS) TOP SCH (04:00)
[2017-01-02] MEDS: INSULIN NovoLIN REGULAR SUPPLEMENTAL SCALE SQ SCH ×4 (05:15→23:30)
[2017-01-02] MEDS: ACETAMINOPHEN/HYDROcodone 325 MG/5 MG TAB PO PRN ×3 (05:18→17:56)
[2017-01-02 08:31] LABS: BASOPHIL % 0.2 % (0.0-2.0); HEMATOCRIT 25.4 % (35.0-46.0); LYMPH % 12.1 % (9.0-44.0); LYMPHOCYTE # 0.5 TH/MM3 (1.0-4.8); MEAN CELL VOLUME 111.9 FL (80.0-100.0); MEAN CORPUSCULAR HEMOGLOBIN 37.3 PG (27.0-34.0); MEAN CORPUSCULAR HGB CONC 33.3 % (32.0-36.0); MONO % 10.7 % (0.0-8.0); PLATELET COUNT 81 TH/MM3 (150-450); RED BLOOD COUNT 2.27 MIL/MM3 (4.00-5.30); RED CELL DISTRIBUTION WIDTH 14.7 % (11.6-17.2); WHITE BLOOD COUNT 3.9 TH/MM3 (4.0-11.0)
[2017-01-02 08:35] LABS: HEMO FLAGS AUTO DIFF
[2017-01-02] MEDS: PANTOPRAZOLE SOD 40 MG DELAYED RELEASE TAB PO SCH (10:06)
[2017-01-02] MEDS: methylPREDNISolone SOD SUCC 40 MG/1 ML VIAL IV PUSH SCH ×2 (10:06→20:23)
[2017-01-02] MEDS: DOCUSATE SODIUM 50 MG/SENNA 8.6 MG TAB PO SCH ×2 (10:06→20:23)
[2017-01-02 11:10] LABS: SCAN/DIFF AUTO DIFF CONFIRMED
[2017-01-02] MEDS: RESP: ALBUTEROL 2.5 MG/IPRATROPIUM 0.5 MG NEB (PRN) INH (12:08)
--- NOTE | 2017-01-02 12:29 | HHI.PR ---
Subjective Remarks Has some pain where the chest tube is located. Just got pain medication that brought it down to a 3/10. no SOB. no nausea or vomiting. Objective Vitals Vital Signs Date Time Temp Pulse Resp B/P (MAP) Pulse Ox O2 Delivery O2 Flow Rate FiO2 01/02/17 08:00 97.6 102 18 141/82 (101) 99 01/02/17 08:00 98 01/02/17 04:00 97.5 95 18 132/71 (91) 95 01/02/17 00:00 97.9 100 18 123/77 (92) 97 01/01/17 23:30 98 01/01/17 22:56 97.4 104 20 146/94 (111) 95 01/01/17 20:09 97 21 01/01/17 20:00 94 01/01/17 20:00 98.6 94 24 115/72 (86) 96 01/01/17 18:00 85 01/01/17 16:00 87 01/01/17 16:00 97.8 87 15 121/66 (84) 96 01/01/17 15:45 15 01/01/17 14:00 98 I/O 01/01/17 01/01/17 01/01/17 01/02/17 01/02/17 01/02/17 07:00 15:00 23:00 07:00 15:00 23:00 Intake Total 0 ml 700 ml 240 ml Output Total 20 ml 530 ml 350 ml Balance -20 ml 170 ml -110 ml Intake Oral 0 ml 600 ml 240 ml IV Total 100 ml Output Urine Total 0 ml 525 ml 350 ml Chest Tube Drainage Total 20 ml 5 ml # Bowel Movements 0 0 Result Diagram: 01/02/17 0753 01/01/17 0458 Imaging Last Impressions Chest CT 12/31/16 0000 Signed Impressions: Service Date/Time: Saturday, December 31, 2016 14:44 - CONCLUSION: 1. Interval placement of left-sided chest tube with slight decrease in the complex low-density fluid collection in the lower left hemithorax. 2. Volume loss remains in the left hemithorax with consolidation in the left infrahilar region 3. New small right pleural effusion and consolidation in the right posterior lower lobe 4. The previously noted fluid and debris in the left mainstem bronchus is no longer present. Kashif Garcia MD Chest X-Ray 12/30/16 0000 Signed Impressions: Service Date/Time: Friday, December 30, 2016 08:56 - CONCLUSION: 1. Interval placement of left-sided chest tube without significant interval improvement in complex loculated left-sided pleural effusion. 2. Redemonstration of left hilar mass and associated lower lobe collapse. David Mora MD Chest Ultrasound 12/30/16 0000 Signed Impressions: Service Date/Time: Friday, December 30, 2016 09:59 - CONCLUSION: No focal collections of anechoic free fluid. Prominent amount of heterogeneous echotexture material surrounding the left lower chest. Art Willard MD Chest Tube Insertion 12/29/16 1224 Signed Impressions: Service Date/Time: December 13:22 - CONCLUSION: Uncomplicated CT-guided thoracentesis. David Mora MD Objective Remarks GENERAL: Patient is 56 yo lying in bed finishing up a breathing treatment. SKIN: chest tube on the left chest. some Bruises noted throughout chest EYES: EOMI. NECK: Supple, trachea midline. CARDIOVASCULAR: Regular rate and rhythm without murmurs RESPIRATORY: Breath sounds equal bilaterally. GASTROINTESTINAL: Abdomen soft, non-tender, nondistended. MUSCULOSKELETAL: No edema. Neuro: Awake and alert Procedures CT guided thoracentesis with L chest tube placement 12/29 Dr. Mora A/P Problem List: (1) Pleural effusion on left ICD Code: J90 - Pleural effusion, not elsewhere classified Status: Acute (2) Respiratory distress ICD Code: R06.00 - Dyspnea, unspecified Status: Resolved (3) Hyponatremia ICD Code: E87.1 - Hypo-osmolality and hyponatremia Status: Acute (4) COPD (chronic obstructive pulmonary disease) ICD Code: J44.9 - Chronic obstructive pulmonary disease, unspecified Status: Chronic (5) Tobacco abuse ICD Code: Z72.0 - Tobacco use Status: Chronic Assessment and Plan 1)Resp Insuff 2)Left-sided consolidation 3)Exudative pleural effusion. 4)COPD exacerbation. 5)Urinary tract infection. 6)Hx tobacco use 7)Anemia, thrombocytopenia Plan Continue with oxygen maintain sats above 92%. Bronchodilators, on solumederol 40mg Q12. continue to taper. Pt is known to Dr. Chung (outpatient) s/p CT guided left-sided thoracentesis and CT placement by IR 12/29 Exudative effusion. Cytology still pending. Fluid cx neg x 72hours. Repeat CT chest 01/01: Interval placement of left-sided chest tube with slight decrease in the complex low-density fluid collection in the lower left hemithorax. Volume loss remains in the left hemithorax with consolidation in the left infrahilar region. New small right pleural effusion and consolidation in the right posterior lower lobe. CT chest 12/29 : Either highly complex fluid or soft tissue mass involving the left lung base with mass effect. This measures 12.2 x 12.6 x 7.4 cm. 4.4 cm ascending aortic aneurysm. CTS has been consulted for -eval for decortication. Dr. Young is aware. Monitor CT drainage. Continue with abx ( Rocephin,, Zithromax) Discharge Planning awaiting recs from CTS Kate Francois MD Jan 02, 2017 12:29
[2017-01-02] MEDS: AZITHROMYCIN INJ 500 MG in SODIUM CHLOR 0.9% 250 ML INJ 250 ML IV SCH (13:00)
[2017-01-02] MEDS: cefTRIAXone INJ 1,000 MG in SODIUM CHLORIDE 0.9% INJ 100 ML IV SCH (13:00)
--- NOTE | 2017-01-02 18:12 | PD.CONS ---
History of Present Illness Service CT Surgery Consult Requested By Dr. Gomez Reason for Consult Loculated left pleural effusion Primary Care Physician Venessa Chung MD Diagnoses: History of Present Illness 56-year-old white female with a history of COPD and chronic bronchitis who apparently was suffering from food poisoning over the past one week and became quite weak, had nausea, diarrhea, abdominal discomfort and dehydration. The patient states that she was unable to pass urine and became very weak, had lost weight and thus came to the ER and subsequently was admitted. She c/o 20 lb weight loss over the past 4 months. The patient did have a chest x-ray which showed an area of effusion with volume loss in the left side. She then had a chest CT done which showed evidence of a loculated mass-like infiltrate in the left lung base 12 x 12 cm. There was also a left upper lobe lung nodule 7 mm. The patient was started on Solu-Medrol, IV antibiotics including Rocephin and Zithromax and now in the ICU and seems to be feeling better. Denies chest pains or abdominal pains or nausea or vomiting. She underwent chest tube placement in IR with minimal drainage of this effusion. I was consulted to evaluate her for possible surgical exploration, drainage, and decortication. Review of Systems Constitutional: COMPLAINS OF: Fatigue, Weight loss, Change in appetite, DENIES : Diaphoretic episodes, Fever, Weight gain, Chills, Dizziness, Night Sweats Endocrine: DENIES: Abnorml menstrual pattern, Heat/cold intolerance, Polydipsia , Polyuria, Polyphagia Eyes: DENIES: Blurred vision, Diplopia, Eye inflammation, Eye pain, Vision loss , Photosensitivity, Double Vision Ears, nose, mouth, throat: DENIES: Tinnitus, Hearing loss, Vertigo, Nasal discharge, Oral lesions, Throat pain, Hoarseness, Ear Pain, Running Nose, Epistaxis, Sinus Pain, Toothache, Odynophagia Respiratory: COMPLAINS OF: Cough, Wheezing, Shortness of breath, DENIES: Apneas , Snoring, Hemoptysis, Sputum production Cardiovascular: COMPLAINS OF: Dyspnea on Exertion, DENIES: Chest pain, Palpitations, Syncope, PND, Lower Extremity Edema, Orthopnea, Claudication Gastrointestinal: DENIES: Abdominal pain, Black stools, Bloody stools, Constipation, Diarrhea, Nausea, Vomiting, Difficulty Swallowing, Anorexia Genitourinary: DENIES: Abnormal vaginal bleeding, Dysmenorrhea, Dyspareunia, Sexual dysfunction, Urinary frequency, Urinary incontinence, Urgency, Hematuria , Dysuria, Nocturia, Vaginal discharge Musculoskeletal: DENIES: Joint pain, Muscle aches, Stiffness, Joint Swelling, Back pain, Neck pain Integumentary: DENIES: Abnormal pigmentation, Pruritus, Rash, Nail changes, Breast masses, Breast skin changes, Nipple discharge Hematologic/lymphatic: DENIES: Bruising, Lymphadenopathy Immunologic/allergic: DENIES: Eczema, Urticaria Neurologic: DENIES: Abnormal gait, Headache, Localized weakness, Paresthesias, Seizures, Speech Problems, Tremor, Poor Balance Psychiatric: DENIES: Anxiety, Confusion, Mood changes, Depression, Hallucinations, Agitation, Suicidal Ideation, Homicidal Ideation, Delusions Past Family Social History Allergies: Coded Allergies: No Known Allergies (Verified , 12/29/16) Past Medical History 1. History of COPD. 2. She has had severe anemia for many years. 3. Fluid retention and chronic leg edema in the past 4. Chronic pleural effusions which required thoracentesis in the past. 5. The patient has had no other significant surgical history. 6. She was mildly hypertensive in the past. MEDICATIONS Lasix 20 mg daily. FAMILY HISTORY Father had a history of lung cancer. Active Ordered Medications Current Medications Medications (Trade) Dose Ordered Sig/Armin Route Start Time Stop Time Status Last Admin (NS Flush) 2 ml UNSCH PRN IVF 12/29/16 10:15 (Duoneb Neb) 1 ampule Q2HR NEB PRN INH 12/29/16 11:30 01/02/17 12:08 Miscellaneous Information 1 Q361D XX 12/29/16 11:30 12/29/16 21:22 (Chlorhexidine 2% Cloth) 3 pack Taper DAILY@04 TOP 12/30/16 04:00 12/26/17 03:59 01/01/17 04:00 (Chlorhexidine 2% Cloth) 3 pack UNSCH PRN TOP 12/29/16 11:30 (Elvie-Colace) 1 tab BID PO 12/29/16 21:00 01/02/17 10:06 (Milk Of Magnesia Liq) 30 ml Q12H PRN PO 12/29/16 11:30 (Senokot) 17.2 mg Q12H PRN PO 12/29/16 11:30 (Dulcolax Supp) 10 mg DAILY PRN RECTAL 12/29/16 11:30 (Lactulose Liq) 30 ml DAILY PRN PO 12/29/16 11:30 (D50w (Vial) Inj) 50 ml UNSCH PRN IV PUSH 12/29/16 11:30 (Glucagon Inj) 1 mg UNSCH PRN OTHER 12/29/16 11:30 (NovoLIN R SUPPLEMENTAL SCALE) 1 Q6H SQ 12/29/16 11:30 01/01/17 17:30 Ceftriaxone Sodium 1000 mg/ Sodium Chloride 100 ml @ 200 mls/hr Q24H IV 12/30/16 12:00 01/04/17 11:59 01/02/17 13:00 (Tylenol) 650 mg Q6H PRN PO 12/30/16 22:30 (Morphine Inj) 2 mg Q4H PRN IV 12/31/16 14:30 01/01/17 10:48 (Moore 5-325 Mg) 1 tab Q6H PRN PO 12/31/16 13:45 01/02/17 05:18 (Moore 5-325 Mg) 2 tab Q6H PRN PO 12/31/16 13:45 01/02/17 10:49 (Protonix) 40 mg DAILY PO 01/01/17 09:00 01/02/17 10:06 Azithromycin 500 mg/Sodium Chloride 250 ml @ 250 mls/hr Q24H IV 01/02/17 13:00 01/02/17 13:00 (SoluMEDROL INJ) 40 mg Q12HR IV PUSH 01/01/17 21:00 01/02/17 10:06 Social History The patient smoked one-pack per day for 30 years and quit five and a half years ago. Occasional alcohol use. Physical Exam Vital Signs Vital Signs Date Time Temp Pulse Resp B/P (MAP) Pulse Ox O2 Delivery O2 Flow Rate FiO2 01/02/17 16:00 98.0 99 18 122/76 (91) 94 01/02/17 12:00 97.7 91 18 139/83 (101) 95 01/02/17 08:20 101 01/02/17 08:00 97.6 102 18 141/82 (101) 99 01/02/17 08:00 98 01/02/17 04:00 97.5 95 18 132/71 (91) 95 01/02/17 00:00 97.9 100 18 123/77 (92) 97 01/01/17 23:30 98 01/01/17 22:56 97.4 104 20 146/94 (111) 95 01/01/17 20:09 97 21 01/01/17 20:00 94 01/01/17 20:00 98.6 94 24 115/72 (86) 96 01/01/17 18:00 85 Physical Exam GENERAL: This is an ill-appearing 56 y/o female in no apparent distress. SKIN: No rashes, ecchymoses or lesions. Cool and dry. HEAD: Atraumatic. Normocephalic. No temporal or scalp tenderness. EYES: Pupils equal round and reactive. Extraocular motions intact. No scleral icterus. No injection or drainage. ENT: Nose without bleeding, purulent drainage or septal hematoma. Throat without erythema, tonsillar hypertrophy or exudate. Uvula midline. Airway patent. NECK: Trachea midline. No JVD or lymphadenopathy. Supple, nontender, no meningeal signs. CARDIOVASCULAR: Regular rate and rhythm without murmurs, gallops, or rubs. RESPIRATORY: Decreased BS on left, few expiratory wheezes bilaterally GASTROINTESTINAL: Abdomen soft, non-tender, nondistended. No hepato-splenomegaly , or palpable masses. No guarding. MUSCULOSKELETAL: Extremities without clubbing, cyanosis, or edema. No joint tenderness, effusion, or edema noted. No calf tenderness. Negative Homans sign bilaterally. NEUROLOGICAL: Awake and alert. Cranial nerves II through XII intact. Motor and sensory grossly within normal limits. Five out of 5 muscle strength in all muscle groups. Normal speech. Laboratory Laboratory Tests Test 01/02/17 07:53 White Blood Count 3.9 Red Blood Count 2.27 Hemoglobin 8.5 Hematocrit 25.4 Mean Corpuscular Volume 111.9 Mean Corpuscular Hemoglobin 37.3 Mean Corpuscular Hemoglobin Concent 33.3 Red Cell Distribution Width 14.7 Platelet Count 81 Mean Platelet Volume 10.0 Neutrophils (%) (Auto) 77.0 Lymphocytes (%) (Auto) 12.1 Monocytes (%) (Auto) 10.7 Eosinophils (%) (Auto) 0.0 Basophils (%) (Auto) 0.2 Neutrophils # (Auto) 3.0 Lymphocytes # (Auto) 0.5 Monocytes # (Auto) 0.4 Eosinophils # (Auto) 0.0 Basophils # (Auto) 0.0 CBC Comment AUTO DIFF Differential Comment AUTO DIFF CONFIRMED Date/Time Source Procedure Growth Status 12/29/16 10:10 Blood Peripheral Aerobic Blood Culture - Preliminary NO GROWTH IN 4 DAYS Resulted 12/29/16 10:10 Blood Peripheral Anaerobic Blood Culture - Preliminary NO GROWTH IN 4 DAYS Resulted 12/29/16 14:00 Fluid Pleural Fluid Gram Stain - Final Complete 12/29/16 14:00 Fluid Pleural Fluid Body Fluid Culture - Final NO GROWTH IN 72 HRS.--AEROBICALLY OR ... Complete 12/29/16 10:10 Nasal Aspirate Influenza Types A,B Antigen (BELINDA) - Final NEGATIVE FOR FLU A AND B ANTIGEN.... Complete 12/29/16 10:05 Urine Clean Catch Urine Culture - Final Klebsiella Pneumoniae Complete Result Diagram: 01/02/17 0753 01/01/17 0458 Imaging Last Impressions Chest CT 12/31/16 0000 Signed Impressions: Service Date/Time: Saturday, December 31, 2016 14:44 - CONCLUSION: 1. Interval placement of left-sided chest tube with slight decrease in the complex low-density fluid collection in the lower left hemithorax. 2. Volume loss remains in the left hemithorax with consolidation in the left infrahilar region 3. New small right pleural effusion and consolidation in the right posterior lower lobe 4. The previously noted fluid and debris in the left mainstem bronchus is no longer present. Kashif Garcia MD Chest X-Ray 12/30/16 0000 Signed Impressions: Service Date/Time: Friday, December 30, 2016 08:56 - CONCLUSION: 1. Interval placement of left-sided chest tube without significant interval improvement in complex loculated left-sided pleural effusion. 2. Redemonstration of left hilar mass and associated lower lobe collapse. David Mora MD Chest Ultrasound 12/30/16 0000 Signed Impressions: Service Date/Time: Friday, December 30, 2016 09:59 - CONCLUSION: No focal collections of anechoic free fluid. Prominent amount of heterogeneous echotexture material surrounding the left lower chest. Art Willard MD Chest Tube Insertion 12/29/16 1224 Signed Impressions: Service Date/Time: December 13:22 - CONCLUSION: Uncomplicated CT-guided thoracentesis. David Mora MD Course Patient is stable, but c/o persistent deconditioning/fatigue. She also has developed a pancytopenia. She verbally expresses her wishes NOT to undergo decortication or any surgical intervention. Assessment and Plan Problem List: (1) Pleural effusion on left ICD Codes: J90 - Pleural effusion, not elsewhere classified Status: Acute (2) COPD (chronic obstructive pulmonary disease) ICD Codes: J44.9 - Chronic obstructive pulmonary disease, unspecified Status: Chronic Assessment and Plan Unfortunate 56y/o female with loculated left pleural effusion vs underlying mass. I attempted to discuss surgical exploration for biopsy, drainage and possible decortication. She refuses surgical intervention. Discussed Condition With patient Problem Qualifiers (1) COPD (chronic obstructive pulmonary disease): Qualified Codes: J43.1 - Panlobular emphysema Josey Recinos MD Jan 02, 2017 18:12
[2017-01-02] MEDS: MORPHINE SULFATE 2 MG/ML INJ IV PRN (20:44)
--- NOTE | 2017-01-02 21:34 | RADRPT ---
EXAM DATE/TIME: 01/02/2017 21:18 CORRECTION Corrected on: January 03, 2017; corrected date to from . [facility] COMPARISON: CT THORAX W CONTRAST, December 31, 2016, 14:44. CHEST SINGLE AP, December 30, 2016, 8:56. INDICATIONS : Chest pain.. Followup left effusion. MEDICAL HISTORY : Chronic obstructive pulmonary disease. Blood transfusion. SURGICAL HISTORY : Left chest tube. ENCOUNTER: Initial ACUITY: 1 day PAIN SCORE: 10/10 LOCATION: Bilateral chest FINDINGS: A single AP erect portable view of the chest was obtained and again demonstrates a moderate size left pleural effusion without significant change. There is mild hazy opacity now noted the right lung bas e. The heart size is at the upper limits of normal. CONCLUSION: No significant change in the moderate left effusion. There is mild patchy opacity now noted the right lung base. Kashif Garcia MD on January 02, 2017 at 21:30 Board Certified Radiologist. This report was verified electronically.
[2017-01-03] VITALS (8 sets, daily range): BP systolic 117–149; BP diastolic 59–88; PULSE 91–101; RESP 20; TEMP 97.4–97.8; O2SAT 95–99
[2017-01-03] MEDS: CHLORHEXIDINE GLUCONATE 2 % 1 PACK (2 CLOTHS) TOP SCH ×2 (03:41→23:44)
[2017-01-03] MEDS: INSULIN NovoLIN REGULAR SUPPLEMENTAL SCALE SQ SCH ×4 (05:30→23:30)
[2017-01-03] MEDS: ACETAMINOPHEN/HYDROcodone 325 MG/5 MG TAB PO PRN ×4 (07:34→23:37)
[2017-01-03] MEDS: DOCUSATE SODIUM 50 MG/SENNA 8.6 MG TAB PO SCH ×2 (07:35→20:49)
[2017-01-03] MEDS: PANTOPRAZOLE SOD 40 MG DELAYED RELEASE TAB PO SCH (07:36)
[2017-01-03] MEDS: methylPREDNISolone SOD SUCC 40 MG/1 ML VIAL IV PUSH SCH (07:37)
[2017-01-03 07:49] LABS: AUTOMATED NEUTROPHIL # 3.8 TH/MM3 (1.8-7.7); BASOPHIL % 0.1 % (0.0-2.0); HEMATOCRIT 26.8 % (35.0-46.0); HEMO FLAGS DIFF FINAL; LYMPH % 11.2 % (9.0-44.0); LYMPHOCYTE # 0.6 TH/MM3 (1.0-4.8); MEAN CELL VOLUME 111.2 FL (80.0-100.0); MEAN CORPUSCULAR HEMOGLOBIN 37.7 PG (27.0-34.0); MEAN CORPUSCULAR HGB CONC 33.9 % (32.0-36.0); MONO % 12.1 % (0.0-8.0); NEUT % 76.6 % (16.0-70.0); PLATELET COUNT 103 TH/MM3 (150-450); RED BLOOD COUNT 2.41 MIL/MM3 (4.00-5.30); RED CELL DISTRIBUTION WIDTH 14.5 % (11.6-17.2)
[2017-01-03 08:12] LABS: BICARBONATE 27.7 MEQ/L (21.0-32.0)
[2017-01-03] MEDS: cefTRIAXone INJ 1,000 MG in SODIUM CHLORIDE 0.9% INJ 100 ML IV SCH (12:20)
[2017-01-03] MEDS: AZITHROMYCIN INJ 500 MG in SODIUM CHLOR 0.9% 250 ML INJ 250 ML IV SCH (13:00)
--- NOTE | 2017-01-03 13:57 | HHI.PR ---
Subjective Remarks Pt states that she is feeling better. Chest tube came out last night. no worsening SOB since. States that she really wants to work aggressively w PT. Her baseline is that she is able to at least stand up on her own and she is hopeful that she can go back to this prior to being discharged home. She has a sofa w tables around where her puts things for her so she can help herself but she is too weak to sit up or stand at this time. She is self pay and cannot afford going to rehab and get home health PT. Objective Vitals Vital Signs Date Time Temp Pulse Resp B/P (MAP) Pulse Ox O2 Delivery O2 Flow Rate FiO2 01/03/17 12:00 97.6 100 20 136/88 (104) 97 01/03/17 08:01 91 01/03/17 08:00 97.6 93 20 149/84 (105) 95 01/03/17 07:00 Room Air 01/03/17 04:00 97.8 101 20 138/59 (85) 95 01/03/17 04:00 Room Air 01/03/17 00:00 97.7 96 20 145/88 (107) 96 01/03/17 00:00 Room Air 01/02/17 20:00 97.6 107 20 127/81 (96) 95 01/02/17 20:00 Room Air 01/02/17 20:00 98 01/02/17 16:00 98.0 99 18 122/76 (91) 94 I/O 01/02/17 01/02/17 01/02/17 01/03/17 01/03/17 01/03/17 07:00 15:00 23:00 07:00 15:00 23:00 Intake Total 240 ml 480 ml 240 ml Output Total 350 ml 500 ml 12 ml 900 ml Balance -110 ml -20 ml -12 ml -660 ml Intake Oral 240 ml 480 ml 240 ml Output Urine Total 350 ml 500 ml 900 ml Chest Tube Drainage Total 12 ml Result Diagram: 01/03/17 0615 01/03/17 0615 Imaging Last Impressions Chest X-Ray 01/02/17 0000 Signed Impressions: Service Date/Time: Monday, January 02, 2017 21:18 - CONCLUSION: No significant change in the moderate left effusion. There is mild patchy opacity now noted the right lung base. Kashif Garcia MD Chest CT 12/31/16 0000 Signed Impressions: Service Date/Time: Saturday, December 31, 2016 14:44 - CONCLUSION: 1. Interval placement of left-sided chest tube with slight decrease in the complex low-density fluid collection in the lower left hemithorax. 2. Volume loss remains in the left hemithorax with consolidation in the left infrahilar region 3. New small right pleural effusion and consolidation in the right posterior lower lobe 4. The previously noted fluid and debris in the left mainstem bronchus is no longer present. Kashif Garcia MD Chest Ultrasound 12/30/16 0000 Signed Impressions: Service Date/Time: Friday, December 30, 2016 09:59 - CONCLUSION: No focal collections of anechoic free fluid. Prominent amount of heterogeneous echotexture material surrounding the left lower chest. Art Willard MD Chest Tube Insertion 12/29/16 1224 Signed Impressions: Service Date/Time: December 13:22 - CONCLUSION: Uncomplicated CT-guided thoracentesis. David Mora MD Objective Remarks GENERAL: sitting up in bed. SKIN: large Bruise noted mid chest, dressing over chest tube site. EYES: EOMI. NECK: Supple, trachea midline. CARDIOVASCULAR: Regular rate and rhythm without murmurs RESPIRATORY: Breath sounds equal bilaterally. GASTROINTESTINAL: Abdomen soft, non-tender, nondistended. MUSCULOSKELETAL: No edema. Neuro: Awake and alert Procedures CT guided thoracentesis with L chest tube placement 12/29 Dr. Mora A/P Problem List: (1) Pleural effusion on left ICD Code: J90 - Pleural effusion, not elsewhere classified Status: Acute (2) Respiratory distress ICD Code: R06.00 - Dyspnea, unspecified Status: Resolved (3) Hyponatremia ICD Code: E87.1 - Hypo-osmolality and hyponatremia Status: Acute (4) COPD (chronic obstructive pulmonary disease) ICD Code: J44.9 - Chronic obstructive pulmonary disease, unspecified Status: Chronic (5) Tobacco abuse ICD Code: Z72.0 - Tobacco use Status: Chronic Assessment and Plan 1)Resp Insuff 2)Left-sided consolidation 3)Exudative pleural effusion. 4)COPD exacerbation. 5)Urinary tract infection. 6)Hx tobacco use 7)Anemia, thrombocytopenia Plan Continue with oxygen maintain sats above 92%. Bronchodilators, decrease solumederol to 40mg daily IV. continue to taper. Pt is known to Dr. Chung (outpatient) s/p CT guided left-sided thoracentesis and CT placement by IR 12/29. Yesterday accidentally chest tube came off. Repeat chest x-ray shows no change in the mod pleural effusion but does shows some mild patchy opacities in the right lung base. Encourage use of IS q1hr while awake. Exudative effusion. Cytology neg for malignant cells. Fluid cx neg x 72hours. CT chest 12/29 : Either highly complex fluid or soft tissue mass involving the left lung base with mass effect. This measures 12.2 x 12.6 x 7.4 cm. 4.4 cm ascending aortic aneurysm. CTS was consulted for eval for decortication. However pt refused any surgical intervention. Continue with abx ( Rocephin, Zithromax) At this time, pt doesn't qualify for rehab or home health PT. Will start her on an aggressive PT regime here. Once pt able to stand w assistance of walker and hopefully transfer from bed to chair, we may be able to discharge her home. Both pt and agree to this plan. Per pt's request will d/c bangura cath tomorrow. Discharge Planning aggressive PT at this time. Pt not safe discharge home. Pt recommending rehab however pt is self pay. Problem Qualifiers (1) COPD (chronic obstructive pulmonary disease): Qualified Codes: J43.1 - Panlobular emphysema Kate Francois MD Jan 03, 2017 13:57
[2017-01-03] MEDS: RESP: ALBUTEROL 2.5 MG/IPRATROPIUM 0.5 MG NEB (PRN) INH (15:30)
--- NOTE | 2017-01-03 20:17 | HHI.PR ---
Subjective Remarks Patient is lying in bed in NAD. Afebrile. Seen by CTS Pt refused surgical intervention Objective Vital Signs Vital Signs Date Time Temp Pulse Resp B/P (MAP) Pulse Ox O2 Delivery O2 Flow Rate FiO2 01/03/17 16:42 97.6 94 20 128/76 (93) 99 01/03/17 12:00 97.6 100 20 136/88 (104) 97 01/03/17 08:01 91 01/03/17 08:00 97.6 93 20 149/84 (105) 95 01/03/17 07:00 Room Air 01/03/17 04:00 97.8 101 20 138/59 (85) 95 01/03/17 04:00 Room Air 01/03/17 00:00 97.7 96 20 145/88 (107) 96 01/03/17 00:00 Room Air I/O 01/02/17 01/02/17 01/02/17 01/03/17 01/03/17 01/03/17 07:00 15:00 23:00 07:00 15:00 23:00 Intake Total 240 ml 480 ml 240 ml 480 ml Output Total 350 ml 500 ml 12 ml 900 ml Balance -110 ml -20 ml -12 ml -660 ml 480 ml Intake Oral 240 ml 480 ml 240 ml 480 ml Output Urine Total 350 ml 500 ml 900 ml Chest Tube Drainage Total 12 ml Result Diagram: 01/03/1761401/03/17614 Objective Remarks GENERAL: Patient is 56 yo lying in bed in NAD SKIN: Warm and dry. HEAD: Normocephalic. EYES: No scleral icterus. No injection or drainage. NECK: Supple, trachea midline. No JVD or lymphadenopathy. CARDIOVASCULAR: Regular rate and rhythm without murmurs, gallops, or rubs. RESPIRATORY: Breath sounds equal bilaterally. No accessory muscle use. GASTROINTESTINAL: Abdomen soft, non-tender, nondistended. MUSCULOSKELETAL: No cyanosis, or edema. BACK: Nontender without obvious deformity. No CVA tenderness. Neuro: Awake and alert A/P Assessment and Plan 1)Resp Insuff 2)Left-sided consolidation 3)Exudative pleural effusion. 4)COPD exacerbation. 5)Urinary tract infection. 6)Hx tobacco use 7)Anemia, thrombocytopenia Plan Continue with oxygen maintain sats above 92%. Bronchodilators, decrease solumederol 40mg Q12. s/p CT guided left-sided thoracentesis and CT placement by IR 12/29 Exudative effusion. Follow up on cytology Repeat CT chest 01/01: Interval placement of left-sided chest tube with slight decrease in the complex low-density fluid collection in the lower left hemithorax. Volume loss remains in the left hemithorax with consolidation in the left infrahilar region. New small right pleural effusion and consolidation in the right posterior lower lobe. CT chest 12/29 : Either highly complex fluid or soft tissue mass involving the left lung base with mass effect. This measures 12.2 x 12.6 x 7.4 cm. 4.4 cm ascending aortic aneurysm. Continue with abx ( Rocephin,, Zithromax) Continue treatment plan. Raphael Machado MD Jan 03, 2017 20:17
[2017-01-04] VITALS (8 sets, daily range): BP systolic 113–142; BP diastolic 65–87; PULSE 74–92; RESP 16–20; TEMP 97.4–98; O2SAT 94–98
[2017-01-04] MEDS: MORPHINE SULFATE 2 MG/ML INJ IV PRN ×3 (03:43→21:31)
[2017-01-04] MEDS: INSULIN NovoLIN REGULAR SUPPLEMENTAL SCALE SQ SCH ×4 (05:30→22:11)
[2017-01-04] MEDS: ACETAMINOPHEN/HYDROcodone 325 MG/5 MG TAB PO PRN ×3 (05:33→18:49)
[2017-01-04] MEDS: PANTOPRAZOLE SOD 40 MG DELAYED RELEASE TAB PO SCH (09:31)
[2017-01-04] MEDS: methylPREDNISolone SOD SUCC 40 MG/1 ML VIAL IV PUSH SCH (09:31)
[2017-01-04] MEDS: DOCUSATE SODIUM 50 MG/SENNA 8.6 MG TAB PO SCH ×2 (09:31→21:00)
[2017-01-04] MEDS: RESP: ALBUTEROL 2.5 MG/IPRATROPIUM 0.5 MG NEB (PRN) INH (10:14)
[2017-01-04] MEDS: AZITHROMYCIN INJ 500 MG in SODIUM CHLOR 0.9% 250 ML INJ 250 ML IV SCH (11:57)
--- NOTE | 2017-01-04 14:47 | HHI.PR ---
Subjective Remarks Pt very happy to be out of bed. PT worked w her and sat her on chair, she would like to remain on chair as much as possible and have dinner. She is very motivated and understands that she must do her part in order to get stronger. no chest pain, worsening SOB, nausea or vomiting. appetite is good Objective Vitals Vital Signs Date Time Temp Pulse Resp B/P (MAP) Pulse Ox O2 Delivery O2 Flow Rate FiO2 01/04/17 12:00 97.4 92 16 113/72 (86) 94 01/04/17 08:10 Room Air 01/04/17 08:10 74 01/04/17 08:00 97.4 83 16 130/78 (95) 96 01/04/17 04:01 Room Air 01/04/17 04:00 97.6 86 18 122/69 (86) 97 01/04/17 00:00 Room Air 01/04/17 00:00 97.6 89 20 127/65 (85) 97 01/03/17 22:51 97.4 95 20 117/72 (87) 98 01/03/17 20:00 Room Air 01/03/17 19:59 91 01/03/17 16:42 97.6 94 20 128/76 (93) 99 I/O 01/03/17 01/03/17 01/03/17 01/04/17 01/04/17 01/04/17 07:00 15:00 23:00 07:00 15:00 23:00 Intake Total 240 ml 830 ml 260 ml Output Total 900 ml 300 ml Balance -660 ml 830 ml -300 ml 260 ml Intake Oral 240 ml 480 ml IV Total 350 ml 260 ml Output Urine Total 900 ml 300 ml Result Diagram: 01/03/17 0615 01/03/17 0615 Imaging Last Impressions Chest X-Ray 01/02/17 0000 Signed Impressions: Service Date/Time: Monday, January 02, 2017 21:18 - CONCLUSION: No significant change in the moderate left effusion. There is mild patchy opacity now noted the right lung base. Kashif Garcia MD Chest CT 12/31/16 0000 Signed Impressions: Service Date/Time: Saturday, December 31, 2016 14:44 - CONCLUSION: 1. Interval placement of left-sided chest tube with slight decrease in the complex low-density fluid collection in the lower left hemithorax. 2. Volume loss remains in the left hemithorax with consolidation in the left infrahilar region 3. New small right pleural effusion and consolidation in the right posterior lower lobe 4. The previously noted fluid and debris in the left mainstem bronchus is no longer present. Kashif Garcia MD Chest Ultrasound 12/30/16 0000 Signed Impressions: Service Date/Time: Friday, December 30, 2016 09:59 - CONCLUSION: No focal collections of anechoic free fluid. Prominent amount of heterogeneous echotexture material surrounding the left lower chest. Art Willard MD Chest Tube Insertion 12/29/16 1224 Signed Impressions: Service Date/Time: December 13:22 - CONCLUSION: Uncomplicated CT-guided thoracentesis. David Mora MD Objective Remarks GENERAL: sitting up in bed. SKIN: large Bruise noted mid chest, dressing in place d/c/i. EYES: EOMI. NECK: Supple, trachea midline. CARDIOVASCULAR: Regular rate and rhythm without murmurs RESPIRATORY: Breath sounds equal bilaterally. GASTROINTESTINAL: Abdomen soft, non-tender, nondistended. MUSCULOSKELETAL: No edema. Neuro: Awake and alert Procedures CT guided thoracentesis with L chest tube placement 12/29 Dr. Mora A/P Problem List: (1) Pleural effusion on left ICD Code: J90 - Pleural effusion, not elsewhere classified Status: Acute (2) Respiratory distress ICD Code: R06.00 - Dyspnea, unspecified Status: Resolved (3) Hyponatremia ICD Code: E87.1 - Hypo-osmolality and hyponatremia Status: Acute (4) COPD (chronic obstructive pulmonary disease) ICD Code: J44.9 - Chronic obstructive pulmonary disease, unspecified Status: Chronic (5) Tobacco abuse ICD Code: Z72.0 - Tobacco use Status: Chronic Assessment and Plan 1)Resp Insuff 2)Left-sided consolidation 3)Exudative pleural effusion. 4)COPD exacerbation. 5)Urinary tract infection. 6)Hx tobacco use 7)Anemia, thrombocytopenia Plan Continue with oxygen maintain sats above 92%. Bronchodilators, on solumederol 40mg daily IV. continue to taper, consider switching her to po prednisone in AM. Pt is known to Dr. Chung (outpatient) s/p CT guided left-sided thoracentesis and CT placement by IR 12/29. Yesterday accidentally chest tube came off. Repeat chest x-ray shows no change in the mod pleural effusion but does shows some mild patchy opacities in the right lung base. Encourage use of IS q1hr while awake. Exudative effusion. Cytology neg for malignant cells. Fluid cx neg x 72hours. CT chest 12/29 : Either highly complex fluid or soft tissue mass involving the left lung base with mass effect. This measures 12.2 x 12.6 x 7.4 cm. 4.4 cm ascending aortic aneurysm. CTS was consulted for eval for decortication. However pt refused any surgical intervention. completed 5 days of ( Rocephin, Zithromax) At this time, pt doesn't qualify for rehab or home health PT. Currently getting aggressive PT regimen here. Once pt able to stand w assistance of walker and hopefully transfer from bed to chair, we may be able to discharge her home. Both pt and agree to this plan. bangura cath removed this morning and pt able to void w no difficulty Pt is pleased w her progress. Discharge Planning aggressive PT at this time. Pt not safe discharge home. Pt recommending rehab however pt is self pay. Once pt able to stand w assistance of walker and hopefully transfer from bed to chair , we may be able to discharge her home safely. Both pt and agree to this plan. Problem Qualifiers (1) COPD (chronic obstructive pulmonary disease): Qualified Codes: J43.1 - Panlobular emphysema Kate Francois MD Jan 04, 2017 14:47
--- NOTE | 2017-01-04 19:59 | HHI.PR ---
Subjective Remarks Patient is lying in bed in NAD. Afebrile. Seen by CTS Pt refused surgical intervention Breathing better Objective Vital Signs Vital Signs Date Time Temp Pulse Resp B/P (MAP) Pulse Ox O2 Delivery O2 Flow Rate FiO2 01/04/17 16:32 98.0 90 18 132/87 (102) 98 01/04/17 12:00 97.4 92 16 113/72 (86) 94 01/04/17 08:10 Room Air 01/04/17 08:10 74 01/04/17 08:00 97.4 83 16 130/78 (95) 96 01/04/17 04:01 Room Air 01/04/17 04:00 97.6 86 18 122/69 (86) 97 01/04/17 00:00 Room Air 01/04/17 00:00 97.6 89 20 127/65 (85) 97 01/03/17 22:51 97.4 95 20 117/72 (87) 98 01/03/17 20:00 Room Air 01/03/17 19:59 91 I/O 01/03/17 01/03/17 01/03/17 01/04/17 01/04/17 01/04/17 07:00 15:00 23:00 07:00 15:00 23:00 Intake Total 240 ml 830 ml 260 ml 480 ml Output Total 900 ml 300 ml 300 ml Balance -660 ml 830 ml -300 ml 260 ml 180 ml Intake Oral 240 ml 480 ml 480 ml IV Total 350 ml 260 ml Output Urine Total 900 ml 300 ml 300 ml Result Diagram: 01/03/1761401/03/17614 Objective Remarks GENERAL: Patient is 56 yo lying in bed in NAD SKIN: Warm and dry. HEAD: Normocephalic. EYES: No scleral icterus. No injection or drainage. NECK: Supple, trachea midline. No JVD or lymphadenopathy. CARDIOVASCULAR: Regular rate and rhythm without murmurs, gallops, or rubs. RESPIRATORY: Breath sounds equal bilaterally. No accessory muscle use. GASTROINTESTINAL: Abdomen soft, non-tender, nondistended. MUSCULOSKELETAL: No cyanosis, or edema. BACK: Nontender without obvious deformity. No CVA tenderness. Neuro: Awake and alert A/P Assessment and Plan 1)Resp Insuff 2)Left-sided consolidation 3)Exudative pleural effusion. 4)COPD exacerbation. 5)Urinary tract infection. 6)Hx tobacco use 7)Anemia, thrombocytopenia Plan Continue with oxygen maintain sats above 92%. Bronchodilators, decrease solumederol 40mg Q12. s/p CT guided left-sided thoracentesis and CT placement by IR 12/29 Exudative effusion. Follow up on cytology Repeat CT chest 01/01: Interval placement of left-sided chest tube with slight decrease in the complex low-density fluid collection in the lower left hemithorax. Volume loss remains in the left hemithorax with consolidation in the left infrahilar region. New small right pleural effusion and consolidation in the right posterior lower lobe. CT chest 12/29 : Either highly complex fluid or soft tissue mass involving the left lung base with mass effect. This measures 12.2 x 12.6 x 7.4 cm. 4.4 cm ascending aortic aneurysm. Continue with abx ( Rocephin,, Zithromax) Continue treatment plan. Stable on RA will FU in AM Raphael Machado MD Jan 04, 2017 19:59
[2017-01-05] VITALS (7 sets, daily range): BP systolic 123–163; BP diastolic 59–98; PULSE 85–101; RESP 16–20; TEMP 97.2–98.9; O2SAT 96–100
[2017-01-05] MEDS: ACETAMINOPHEN/HYDROcodone 325 MG/5 MG TAB PO PRN ×4 (01:11→20:29)
[2017-01-05] MEDS: CHLORHEXIDINE GLUCONATE 2 % 1 PACK (2 CLOTHS) TOP SCH (02:08)
[2017-01-05] MEDS: MORPHINE SULFATE 2 MG/ML INJ IV PRN ×3 (03:54→17:50)
[2017-01-05] MEDS: INSULIN NovoLIN REGULAR SUPPLEMENTAL SCALE SQ SCH ×4 (04:46→23:09)
[2017-01-05] MEDS: DOCUSATE SODIUM 50 MG/SENNA 8.6 MG TAB PO SCH ×2 (08:15→20:28)
[2017-01-05] MEDS: PANTOPRAZOLE SOD 40 MG DELAYED RELEASE TAB PO SCH (08:15)
[2017-01-05] MEDS: methylPREDNISolone SOD SUCC 40 MG/1 ML VIAL IV PUSH SCH (08:15)
[2017-01-05] MEDS: SODIUM CHLORIDE 0.9% FLUSH 10 ML FLUSH IVF PRN (08:15)
--- NOTE | 2017-01-05 16:32 | HHI.PR ---
Subjective Remarks Patient says she is still tired today, reports shortness of breath is about the same. Denies any cough. Denies any nausea or vomiting. Denies constipation. Denies any chest pain Objective Vital Signs Date Time Temp Pulse Resp B/P (MAP) Pulse Ox O2 Delivery O2 Flow Rate FiO2 01/05/17 11:44 97.2 101 20 159/97 (117) 98 01/05/17 08:00 97.8 98 20 145/86 (105) 97 01/05/17 08:00 89 01/05/17 07:43 Room Air 01/05/17 04:00 97.5 86 16 124/64 (84) 96 01/05/17 00:00 97.4 92 16 123/59 (80) 98 01/05/17 00:00 Room Air 01/04/17 20:00 84 01/04/17 20:00 Room Air 01/04/17 19:33 97.6 90 20 142/81 (101) 96 01/04/17 16:32 98.0 90 18 132/87 (102) 98 I/O 01/04/17 01/04/17 01/04/17 01/05/17 01/05/17 01/05/17 07:00 15:00 23:00 07:00 15:00 23:00 Intake Total 260 ml 480 ml 680 ml Output Total 300 ml 300 ml Balance -300 ml 260 ml 180 ml 680 ml Intake Oral 480 ml 680 ml IV Total 260 ml Output Urine Total 300 ml 300 ml # Voids 1 Result Diagram: 01/03/1761401/03/1715 Objective Remarks GENERAL: Patient sitting up in bed. Appears comfortable. Alert and oriented 3 SKIN: Warm and dry. HEAD: Normocephalic. EYES: No scleral icterus. No injection or drainage. NECK: Supple, trachea midline. No JVD. CARDIOVASCULAR: Regular rate and rhythm without murmurs, gallops, or rubs. RESPIRATORY: Breath sounds equal bilaterally. No accessory muscle use. GASTROINTESTINAL: Abdomen soft, non-tender, nondistended. MUSCULOSKELETAL: No cyanosis, or edema. BACK: Nontender without obvious deformity. No CVA tenderness. A/P Assessment and Plan //Resp Insuff //Left-sided consolidation //Exudative pleural effusion. //COPD exacerbation. //Urinary tract infection. //Hx tobacco use //Anemia, thrombocytopenia //Moderate aortic valve regurgitation //Moderate calcific aortic valve stenosis //With resultant suspected pulmonary hypertension with pulmonary arterial pressure 69.3 Plan Continue with oxygen maintain sats above 92%. Bronchodilators, on solumederol 40mg daily IV. continue to taper, consider switching her to po prednisone in AM. Pt is known to Dr. Chung (outpatient) s/p CT guided left-sided thoracentesis and CT placement by IR 12/29. Yesterday accidentally chest tube came off. Repeat chest x-ray shows no change in the mod pleural effusion but does shows some mild patchy opacities in the right lung base. Encourage use of IS q1hr while awake. Exudative effusion. Cytology neg for malignant cells. Fluid cx neg x 72hours. CT chest 12/29 : Either highly complex fluid or soft tissue mass involving the left lung base with mass effect. This measures 12.2 x 12.6 x 7.4 cm. 4.4 cm ascending aortic aneurysm. CTS was consulted for eval for decortication. However pt refused any surgical intervention. completed 5 days of ( Rocephin, Zithromax) At this time, pt doesn't qualify for rehab or home health PT. Currently getting aggressive PT regimen here. Once pt able to stand w assistance of walker and hopefully transfer from bed to chair, we may be able to discharge her home. Both pt and agree to this plan. bangura cath removed this morning and pt able to void w no difficulty Pt is pleased w her progress. 01/05 patient seen and examined. Still with tiredness, shortness of breath. Reviewed echocardiogram At problems below. //Moderate aortic valve regurgitation //Moderate calcific aortic valve stenosis //With resultant suspected pulmonary hypertension with pulmonary arterial pressure 69.3 -Reviewed echocardiogram from 12/30. Says ejection fraction within normal limits, however expect calculation skewed by regurgitation -Start on afterload reduction with nifedipine. Start back on Lasix. Consult cardiology. -Continue treatment for COPD exacerbation as above. Discharge Planning Start treatment for CHF exacerbation, aortic insufficiency Pending cardiology evaluation.- Continued weakness. Continue to work with PT. Patient is self pay. Hopefully if further strengthening, can go home with . Appreciate physical therapy and case management assistance. Hany Nuñez MD Jan 05, 2017 16:32
[2017-01-05] MEDS ORDERED: NIFEdipine 60 MG SUSTAINED RELEASE TAB PO ONE (17:30)
[2017-01-05] MEDS: FUROSEMIDE 20 MG TAB PO SCH (17:50)
--- NOTE | 2017-01-05 18:16 | HHI.PR ---
Subjective Remarks Pain along left chest wall. Mild SOB . Chest tube is out. She has bruising all over.Off Antibiotics. Objective Vital Signs Date Time Temp Pulse Resp B/P (MAP) Pulse Ox O2 Delivery O2 Flow Rate FiO2 01/05/17 16:00 97.6 89 18 163/98 (119) 97 01/05/17 11:44 97.2 101 20 159/97 (117) 98 01/05/17 08:00 97.8 98 20 145/86 (105) 97 01/05/17 08:00 89 01/05/17 07:43 Room Air 01/05/17 04:00 97.5 86 16 124/64 (84) 96 01/05/17 00:00 97.4 92 16 123/59 (80) 98 01/05/17 00:00 Room Air 01/04/17 20:00 84 01/04/17 20:00 Room Air 01/04/17 19:33 97.6 90 20 142/81 (101) 96 I/O 01/04/17 01/04/17 01/04/17 01/05/17 01/05/17 01/05/17 07:00 15:00 23:00 07:00 15:00 23:00 Intake Total 260 ml 480 ml 680 ml Output Total 300 ml 300 ml Balance -300 ml 260 ml 180 ml 680 ml Intake Oral 480 ml 680 ml IV Total 260 ml Output Urine Total 300 ml 300 ml # Voids 1 Result Diagram: 01/03/1761401/03/1715 Objective Remarks GENERAL: This is an averagely built middle-aged white female who is pale and not dyspneic. HEENT: Head normocephalic. Pupils are reactive and equal. Tongue moist. Throat is clear. Nasal mucosa dry. NECK: Supple. No bruits, thyroid enlargement or lymphadenopathy. CHEST: Distant breath sounds at the lung bases with occasional crackles in the left upper lung field. HEART: The heart sounds are irregular, S1-S2. No murmur. No S3. ABDOMEN: Soft and nontender. No organomegaly. Bowel sounds are active. EXTREMITIES: Edema 1+ with diminished peripheral pulses. NEUROLOGIC: Reflexes are 1+ with no gross motor deficits. RECTAL: Exam is deferred. SKIN: Dry and scaly. Assessment and Plan Assessment and Plan IMPRESSION 1. COPD with acute exacerbation 2. Chronic left basilar effusion with loculation 3. Atelectasis left lower lobe with mucus plugging. 4. Hyponatremia. 5. Abnormal liver enzymes 6. Anemia and chronic disease. Plan : 1. O2 2 L.prn 2. PFT at Bedside 3. D/C Antibiotics , Rocephin. 4. Cardiology to see 5. D/C Solumedrol 6. May need CT Guided needle biopsy 7. May need surgical evaluation for decortication. Venessa Chung MD Jan 05, 2017 18:16
--- NOTE | 2017-01-05 19:11 | PD.CONS ---
HPI Consult Requested By Primary Care Physician Venessa Chung MD History of Present Illness 56-year-old white female with a history of COPD, chronic bronchitis who apparently was suffering from food poisoning. The patient states that she was unable to pass urine and became very weak, had lost weight with diarrhea, abdominal discomfort, dehydration and presented to ER for evaluation. She c/o 20 lb weight loss over the past [address] done showed evidence of a loculated mass-like infiltrate in the left lung base 12 x 12 cm and a left upper lobe lung nodule 7 mm. The patient was started on Solu-Medrol, IV antibiotics including Rocephin and Zithromax. Denies chest pains or abdominal pains or nausea or vomiting. She underwent chest tube placement in IR with minimal drainage of this effusion. I was consulted to evaluate her for CHF, , AI. TTE shows preserved EF and at least moderate /AI. Review of Systems Consitutional: DENIES: Fatigue, Fever, Chills, Weight gain, Weight loss Eyes: DENIES: Amaurosis Fugax, Change in vision HEENT: DENIES: Lightheadedness, Change in hearing Respiratory: DENIES: See HPI, Cough, Snoring, Shortness of breath, Wheezing, Sputum production Cardiovascular: DENIES: See HPI, Chest pain, Palpitations, Syncope, Tachycardia Gastrointestinal: COMPLAINS OF: Nausea, Vomiting, DENIES: Change in bowel habits, Reflux, Bloody stools, Melena Genitourinary: DENIES: Urinary incontinence, Difficulty voiding Integumentary: DENIES: Rash Neurologic: DENIES: Tingling or numbness, Memory problems, Poor Balance, Stroke symptoms Musculoskeletal: DENIES: Joint pain, Muscle pain, Limited range of motion, Back pain Psychiatric: DENIES: Anxiety, Depression, Sleep disturbances Hematologic: DENIES: Bruising tendencies, Bleeding tendencies Endocrine: COMPLAINS OF: Weight loss, DENIES: Weight gain, Thyroid disease Past Family Social History Allergies: Coded Allergies: No Known Allergies (Verified , 12/29/16) Past Medical History 1. History of COPD. 2. She has had severe anemia for many years. 3. Fluid retention and chronic leg edema in the past 4. Chronic pleural effusions which required thoracentesis in the past. 5. The patient has had no other significant surgical history. 6. She was mildly hypertensive in the past. Reported Medications Reported Meds & Active Scripts Active Reported Furosemide 20 Mg Tab 20 Mg PO DAILY Active Ordered Medications Current Medications Medications (Trade) Dose Ordered Sig/Armin Route Start Time Stop Time Status Last Admin (NS Flush) 2 ml UNSCH PRN IVF 12/29/16 10:15 01/05/17 08:15 (Duoneb Neb) 1 ampule Q2HR NEB PRN INH 12/29/16 11:30 01/04/17 10:14 Miscellaneous Information 1 Q361D XX 12/29/16 11:30 12/29/16 21:22 (Chlorhexidine 2% Cloth) Taper DAILY@04 TOP 12/30/16 04:00 12/26/17 03:59 01/01/17 04:00 (Chlorhexidine 2% Cloth) 3 pack UNSCH PRN TOP 12/29/16 11:30 (Elvie-Colace) 1 tab BID PO 12/29/16 21:00 01/05/17 08:15 (Milk Of Magnesia Liq) 30 ml Q12H PRN PO 12/29/16 11:30 (Senokot) 17.2 mg Q12H PRN PO 12/29/16 11:30 (Dulcolax Supp) 10 mg DAILY PRN RECTAL 12/29/16 11:30 (Lactulose Liq) 30 ml DAILY PRN PO 12/29/16 11:30 (D50w (Vial) Inj) 50 ml UNSCH PRN IV PUSH 12/29/16 11:30 (Glucagon Inj) 1 mg UNSCH PRN OTHER 12/29/16 11:30 (NovoLIN R SUPPLEMENTAL SCALE) 1 Q6H SQ 12/29/16 11:30 01/01/17 17:30 (Tylenol) 650 mg Q6H PRN PO 12/30/16 22:30 (Morphine Inj) 2 mg Q4H PRN IV 12/31/16 14:30 01/05/17 17:50 ([place] 5-325 Mg) 1 tab Q6H PRN PO 12/31/16 13:45 01/02/17 05:18 ([place] 5-325 Mg) 2 tab Q6H PRN PO 12/31/16 13:45 01/05/17 13:57 (Protonix) 40 mg DAILY PO 01/01/17 09:00 01/05/17 08:15 (Procardia Xl) 30 mg DAILY PO 01/06/17 09:00 (Lasix) 20 mg DAILY PO 01/05/17 17:35 01/05/17 17:50 Family History Father had a history of lung cancer. Social History Tobacco abuse Physical Exam Vital Signs Vital Signs Date Time Temp Pulse Resp B/P (MAP) Pulse Ox O2 Delivery O2 Flow Rate FiO2 01/05/17 16:00 97.6 89 18 163/98 (119) 97 01/05/17 11:44 97.2 101 20 159/97 (117) 98 01/05/17 08:00 97.8 98 20 145/86 (105) 97 01/05/17 08:00 89 01/05/17 07:43 Room Air 01/05/17 04:00 97.5 86 16 124/64 (84) 96 01/05/17 00:00 97.4 92 16 123/59 (80) 98 01/05/17 00:00 Room Air 01/04/17 20:00 84 01/04/17 20:00 Room Air 01/04/17 19:33 97.6 90 20 142/81 (101) 96 Laboratory Date/Time Source Procedure Growth Status 12/29/16 10:10 Blood Peripheral Aerobic Blood Culture - Final NO GROWTH IN 5 DAYS Complete 12/29/16 10:10 Blood Peripheral Anaerobic Blood Culture - Final NO GROWTH IN 5 DAYS Complete 12/29/16 14:00 Fluid Pleural Fluid Gram Stain - Final Complete 12/29/16 14:00 Fluid Pleural Fluid Body Fluid Culture - Final NO GROWTH IN 72 HRS.--AEROBICALLY OR ... Complete 12/29/16 10:10 Nasal Aspirate Influenza Types A,B Antigen (BELINDA) - Final NEGATIVE FOR FLU A AND B ANTIGEN.... Complete 12/29/16 10:05 Urine Clean Catch Urine Culture - Final Klebsiella Pneumoniae Complete Result Diagram: 01/03/17 0615 01/03/1715 Imaging Last Impressions Chest X-Ray 01/02/17 0000 Signed Impressions: Service Date/Time: Monday, January 02, 2017 21:18 - CONCLUSION: No significant change in the moderate left effusion. There is mild patchy opacity now noted the right lung base. Kashif Garcia MD Chest CT 12/31/16 0000 Signed Impressions: Service Date/Time: Saturday, December 31, 2016 14:44 - CONCLUSION: 1. Interval placement of left-sided chest tube with slight decrease in the complex low-density fluid collection in the lower left hemithorax. 2. Volume loss remains in the left hemithorax with consolidation in the left infrahilar region 3. New small right pleural effusion and consolidation in the right posterior lower lobe 4. The previously noted fluid and debris in the left mainstem bronchus is no longer present. Kashif Garcia MD Chest Ultrasound 12/30/16 0000 Signed Impressions: Service Date/Time: Friday, December 30, 2016 09:59 - CONCLUSION: No focal collections of anechoic free fluid. Prominent amount of heterogeneous echotexture material surrounding the left lower chest. Art Willard MD Chest Tube Insertion 12/29/16 1224 Signed Impressions: Service Date/Time: December 13:22 - CONCLUSION: Uncomplicated CT-guided thoracentesis. David Mora MD Assessment and Plan Problem List: (1) COPD (chronic obstructive pulmonary disease) ICD Codes: J44.9 - Chronic obstructive pulmonary disease, unspecified Status: Chronic Plan: IMPRESSION 1. COPD with acute exacerbation 2. Chronic left basilar effusion with loculation 3. Atelectasis left lower lobe with mucus plugging. 4. Hyponatremia. 5. Abnormal liver enzymes 6. Anemia and chronic disease. 7. Aortic Stenosis/AI 8. Soft tissue mass involving the left lung base with mass effect. 9. 4.4 cm ascending aortic aneurysm. 10. Deconditioned Patient refuses, any time of work up for /AI at this time. EF preserved. Thus continue medical management with diuresis , daily weight, low salt diet, BP control and aggressive medical management for CAD. Once patient decides to undergo further evaluation she can follow with Cardiology as an outpatient. Thank you for the opportunity to take part in the car of this patient. Will be available on a PRN basis for any questions or concerns (2) Respiratory distress ICD Codes: R06.00 - Dyspnea, unspecified Status: Resolved (3) Tobacco abuse ICD Codes: Z72.0 - Tobacco use Status: Chronic (4) Physical deconditioning ICD Codes: R53.81 - Other malaise Status: Chronic (5) Pleural effusion on left ICD Codes: J90 - Pleural effusion, not elsewhere classified Status: Acute (6) Hyponatremia ICD Codes: E87.1 - Hypo-osmolality and hyponatremia Status: Acute (7) Hypochloremia ICD Codes: E87.8 - Other disorders of electrolyte and fluid balance, not elsewhere classified Status: Acute Problem Qualifiers (1) COPD (chronic obstructive pulmonary disease): Qualified Codes: J43.1 - Panlobular emphysema Jelani Mc MD Jan 05, 2017 19:11
[2017-01-06] VITALS (8 sets, daily range): BP systolic 114–129; BP diastolic 64–78; PULSE 83–108; RESP 16–22; TEMP 97.4–97.9; O2SAT 94–98
[2017-01-06] MEDS: MORPHINE SULFATE 2 MG/ML INJ IV PRN ×4 (00:19→19:55)
[2017-01-06] MEDS: CHLORHEXIDINE GLUCONATE 2 % 1 PACK (2 CLOTHS) TOP SCH (03:32)
[2017-01-06] MEDS: ACETAMINOPHEN/HYDROcodone 325 MG/5 MG TAB PO PRN ×4 (04:23→23:40)
[2017-01-06] MEDS: INSULIN NovoLIN REGULAR SUPPLEMENTAL SCALE SQ SCH ×4 (04:41→23:30)
[2017-01-06 08:20] LABS: AUTOMATED NEUTROPHIL # 4.8 TH/MM3 (1.8-7.7); EOSINOPHIL # 0.1 TH/MM3 (0-0.4); HEMATOCRIT 28.9 % (35.0-46.0); HEMO FLAGS DIFF FINAL; LYMPH % 22.4 % (9.0-44.0); LYMPHOCYTE # 1.6 TH/MM3 (1.0-4.8); MEAN CELL VOLUME 111.8 FL (80.0-100.0); MEAN CORPUSCULAR HEMOGLOBIN 36.5 PG (27.0-34.0); MEAN CORPUSCULAR HGB CONC 32.6 % (32.0-36.0); MONO % 9.8 % (0.0-8.0); NEUT % 66.8 % (16.0-70.0); PLATELET COUNT 146 TH/MM3 (150-450); RED BLOOD COUNT 2.58 MIL/MM3 (4.00-5.30); RED CELL DISTRIBUTION WIDTH 15.1 % (11.6-17.2); WHITE BLOOD COUNT 7.2 TH/MM3 (4.0-11.0)
[2017-01-06] MEDS: PANTOPRAZOLE SOD 40 MG DELAYED RELEASE TAB PO SCH (08:23)
[2017-01-06] MEDS: NIFEdipine 30 MG SUSTAINED RELEASE TAB PO SCH (08:23)
[2017-01-06] MEDS: FUROSEMIDE 20 MG TAB PO SCH (08:24)
[2017-01-06] MEDS: DOCUSATE SODIUM 50 MG/SENNA 8.6 MG TAB PO SCH ×2 (08:24→19:55)
[2017-01-06 08:41] LABS: POTASSIUM 3.6 MEQ/L (3.5-5.1)
--- NOTE | 2017-01-06 09:43 | HHI.PR ---
Subjective Remarks he bed, appears sleepy. Patient says she did work with PT yesterday, thinks is improving but not much. With sob and feeling tired. No much cough. No fever or chills. No n/v/d/c. Objective Vitals Vital Signs Date Time Temp Pulse Resp B/P (MAP) Pulse Ox O2 Delivery O2 Flow Rate FiO2 01/06/17 08:00 97.4 94 17 117/77 (90) 95 01/06/17 07:20 19 01/06/17 05:20 17 01/06/17 04:00 97.5 108 22 121/78 (92) 94 01/06/17 04:00 Room Air 01/06/17 00:00 Room Air 01/06/17 00:00 97.9 92 19 129/72 (91) 95 01/05/17 21:33 85 01/05/17 20:30 Room Air 01/05/17 20:00 98.9 91 18 155/79 (104) 100 01/05/17 16:00 97.6 89 18 163/98 (119) 97 01/05/17 11:44 97.2 101 20 159/97 (117) 98 I/O 01/05/17 01/05/17 01/05/17 01/06/17 01/06/17 01/06/17 07:00 15:00 23:00 07:00 15:00 23:00 Intake Total 680 ml 720 ml 620 ml Balance 680 ml 720 ml 620 ml Intake Oral 680 ml 720 ml 620 ml # Voids 1 3 2 # Bowel Movements 1 0 Result Diagram: 01/06/17 0732 01/06/17 0732 Objective Remarks GENERAL: Patient sitting up in bed. Appears comfortable. Alert and oriented 3 NECK: Supple, trachea midline. No JVD. CARDIOVASCULAR: Regular rate and rhythm without murmurs, gallops, or rubs. RESPIRATORY: Breath sounds equal bilaterally. No accessory muscle use. GASTROINTESTINAL: Abdomen soft, non-tender, nondistended. MUSCULOSKELETAL: No cyanosis, or edema. BACK: Nontender without obvious deformity. No CVA tenderness. Procedures CT guided thoracentesis with L chest tube placement 12/29 Dr. Mora A/P Problem List: (1) Pleural effusion on left ICD Code: J90 - Pleural effusion, not elsewhere classified Status: Acute (2) Respiratory distress ICD Code: R06.00 - Dyspnea, unspecified Status: Resolved (3) Hyponatremia ICD Code: E87.1 - Hypo-osmolality and hyponatremia Status: Acute (4) COPD (chronic obstructive pulmonary disease) ICD Code: J44.9 - Chronic obstructive pulmonary disease, unspecified Status: Chronic (5) Tobacco abuse ICD Code: Z72.0 - Tobacco use Status: Chronic Assessment and Plan Resp Insuff Left-sided consolidation Exudative pleural effusion. COPD exacerbation. Urinary tract infection. Hx tobacco use Anemia, thrombocytopenia Moderate aortic valve regurgitation Moderate calcific aortic valve stenosis With resultant suspected pulmonary hypertension with pulmonary arterial pressure 69.3 Plan Continue with oxygen maintain sats above 92%. Bronchodilators, on solumederol 40mg daily IV. continue to taper, consider switching her to po prednisone in AM. Pt is known to Dr. Chung (outpatient) s/p CT guided left-sided thoracentesis and CT placement by IR 12/29. Yesterday accidentally chest tube came off. Repeat chest x-ray shows no change in the mod pleural effusion but does shows some mild patchy opacities in the right lung base. Encourage use of IS q1hr while awake. Exudative effusion. Cytology neg for malignant cells. Fluid cx neg x 72hours. CT chest 12/29 : Either highly complex fluid or soft tissue mass involving the left lung base with mass effect. This measures 12.2 x 12.6 x 7.4 cm. 4.4 cm ascending aortic aneurysm. CTS was consulted for eval for decortication. However pt refused any surgical intervention. completed 5 days of ( Rocephin, Zithromax) At this time, pt doesn't qualify for rehab or home health PT. Currently getting aggressive PT regimen here. Once pt able to stand w assistance of walker and hopefully transfer from bed to chair, we may be able to discharge her home. Both pt and agree to this plan. bangura cath removed this morning and pt able to void w no difficulty Pt is pleased w her progress. -Echocardiogram from 12/30. Says ejection fraction within normal limits, however expect calculation skewed by regurgitation -Started on afterload reduction with nifedipine. Start back on Lasix. Consult cardiology. -Continue treatment for COPD exacerbation as above.Seen by cardiology Dr Bustamante. Patient refuses, any time of work up for /AI at this time. EF preserved. Thus continue medical management with diuresis , daily weight, low salt diet, BP control and aggressive medical management for CAD. Once patient decides to undergo further evaluation she can follow with Cardiology as an outpatient. Discharge Planning Started treatment for CHF exacerbation, aortic insufficiency Cardiology evaluation. Continued weakness. Continue to work with PT. Patient is self pay. Hopefully if further strengthening, can go home with . Appreciate physical therapy and case management assistance. Problem Qualifiers (1) COPD (chronic obstructive pulmonary disease): Qualified Codes: J43.1 - Panlobular emphysema Marjorie Ratliff MD Jan 06, 2017 09:43
--- NOTE | 2017-01-06 13:36 | RADRPT ---
EXAM DATE/TIME: 01/06/2017 13:06 [facility] COMPARISON: CHEST SINGLE AP, January 02, 2017, 21:18. INDICATIONS : Shortness of breath. MEDICAL HISTORY : Chronic obstructive pulmonary disease. SURGICAL HISTORY : Chest tube, left. ENCOUNTER: Subsequent ACUITY: 1 week PAIN SCORE: 3/10 LOCATION: Bilateral chest FINDINGS: Moderate left pleural effusion occupying one half of the left hemithorax. Minimal parenchymal change s right base. The heart is enlarged. CONCLUSION: Moderate to large left pleural effusion occupying one half of the left hemithorax. Raf Lindsay MD FACR on January 06, 2017 at 13:33 Board Certified Radiologist. This report was verified electronically.
--- NOTE | 2017-01-06 17:57 | HHI.PR ---
Subjective Remarks Pain along left chest wall. Mild SOB . Chest tube is out. She has bruising all over. Has a foot problem and is unable to walk. Objective Vital Signs Date Time Temp Pulse Resp B/P (MAP) Pulse Ox O2 Delivery O2 Flow Rate FiO2 01/06/17 12:35 Room Air 21 01/06/17 11:48 97.5 88 16 114/64 (81) 98 01/06/17 08:00 97.4 94 17 117/77 (90) 95 01/06/17 07:51 83 01/06/17 07:20 19 01/06/17 05:20 17 01/06/17 04:00 97.5 108 22 121/78 (92) 94 01/06/17 04:00 Room Air 01/06/17 00:00 Room Air 01/06/17 00:00 97.9 92 19 129/72 (91) 95 01/05/17 21:33 85 01/05/17 20:30 Room Air 01/05/17 20:00 98.9 91 18 155/79 (104) 100 I/O 01/05/17 01/05/17 01/05/17 01/06/17 01/06/17 01/06/17 07:00 15:00 23:00 07:00 15:00 23:00 Intake Total 680 ml 720 ml 620 ml Balance 680 ml 720 ml 620 ml Intake Oral 680 ml 720 ml 620 ml # Voids 1 3 2 # Bowel Movements 1 0 Result Diagram: 01/06/17 0732 01/06/17 0732 Objective Remarks GENERAL: This is an averagely built middle-aged white female who is pale and not dyspneic. HEENT: Head normocephalic. Pupils are reactive and equal. Tongue moist. Throat is clear. Nasal mucosa dry. NECK: Supple. No bruits, thyroid enlargement or lymphadenopathy. CHEST: Distant breath sounds at the lung bases with occasional crackles in the left upper lung field. HEART: The heart sounds are irregular, S1-S2. No murmur. No S3. ABDOMEN: Soft and nontender. No organomegaly. Bowel sounds are active. EXTREMITIES: Edema 1+ with diminished peripheral pulses. NEUROLOGIC: Reflexes are 1+ with no gross motor deficits. RECTAL: Exam is deferred. SKIN: Dry and scaly. Assessment and Plan Assessment and Plan IMPRESSION 1. COPD with acute exacerbation 2. Chronic left basilar effusion with loculation 3. Atelectasis left lower lobe with mucus plugging. 4. Hyponatremia. 5. Abnormal liver enzymes 6. Anemia and chronic disease. Plan : 1. O2 2 L. prn 2. PFT at Bedside 3. Add prednisone 10 mg daily. 4. Cardiology to see 5. CBC,BMP. 6. May need CT Guided needle biopsy 7. May need surgical evaluation for decortication. Venessa Chung MD Jan 06, 2017 17:57
[2017-01-07] VITALS (8 sets, daily range): BP systolic 110–131; BP diastolic 63–78; PULSE 88–100; RESP 17–20; TEMP 97.4–98; O2SAT 93–100
[2017-01-07] MEDS: MORPHINE SULFATE 2 MG/ML INJ IV PRN ×4 (01:43→21:40)
[2017-01-07] MEDS: CHLORHEXIDINE GLUCONATE 2 % 1 PACK (2 CLOTHS) TOP SCH (03:39)
[2017-01-07] MEDS: INSULIN NovoLIN REGULAR SUPPLEMENTAL SCALE SQ SCH ×3 (05:30→17:30)
[2017-01-07] MEDS: ACETAMINOPHEN/HYDROcodone 325 MG/5 MG TAB PO PRN ×4 (05:32→23:58)
[2017-01-07] MEDS: NIFEdipine 30 MG SUSTAINED RELEASE TAB PO SCH (09:47)
[2017-01-07] MEDS: DOCUSATE SODIUM 50 MG/SENNA 8.6 MG TAB PO SCH ×2 (09:48→23:59)
[2017-01-07] MEDS: FUROSEMIDE 20 MG TAB PO SCH (09:48)
[2017-01-07] MEDS: PANTOPRAZOLE SOD 40 MG DELAYED RELEASE TAB PO SCH (09:48)
--- NOTE | 2017-01-07 12:58 | HHI.PR ---
Subjective Remarks In bed with some sob and has palpitations, however she says she did her physical therapy and just finished. Pain is fairly controlled by meds. No n/v/d/ c. No fever or chills. Objective Vitals Vital Signs Date Time Temp Pulse Resp B/P (MAP) Pulse Ox O2 Delivery O2 Flow Rate FiO2 01/07/17 12:09 98.0 98 20 118/73 (88) 98 01/07/17 10:55 90 01/07/17 09:03 97.8 95 18 131/78 (95) 99 01/07/17 07:20 Room Air 01/07/17 06:30 18 01/07/17 04:00 97.9 88 17 112/68 (83) 94 01/07/17 00:00 97.8 92 18 110/63 (79) 93 01/06/17 21:53 17 01/06/17 20:43 84 01/06/17 20:00 97.4 88 18 116/69 (85) 95 01/06/17 20:00 Room Air 01/06/17 16:00 97.6 85 18 127/75 (92) 96 I/O 01/06/17 01/06/17 01/06/17 01/07/17 01/07/17 01/07/17 07:00 15:00 23:00 07:00 15:00 23:00 Intake Total 620 ml 720 ml 480 ml Balance 620 ml 720 ml 480 ml Intake Oral 620 ml 720 ml 480 ml # Voids 2 4 1 # Bowel Movements 0 0 1 Result Diagram: 01/06/17 0732 01/06/17 0732 Imaging Last Impressions Chest X-Ray 01/06/17 0000 Signed Impressions: Service Date/Time: Friday, January 06, 2017 13:06 - CONCLUSION: Moderate to large left pleural effusion occupying one half of the left hemithorax. Raf Lindsay MD FACR Chest CT 12/31/16 0000 Signed Impressions: Service Date/Time: Saturday, December 31, 2016 14:44 - CONCLUSION: 1. Interval placement of left-sided chest tube with slight decrease in the complex low-density fluid collection in the lower left hemithorax. 2. Volume loss remains in the left hemithorax with consolidation in the left infrahilar region 3. New small right pleural effusion and consolidation in the right posterior lower lobe 4. The previously noted fluid and debris in the left mainstem bronchus is no longer present. Kashif Garcia MD Chest Ultrasound 12/30/16 0000 Signed Impressions: Service Date/Time: Friday, December 30, 2016 09:59 - CONCLUSION: No focal collections of anechoic free fluid. Prominent amount of heterogeneous echotexture material surrounding the left lower chest. Art Willard MD Chest Tube Insertion 12/29/16 1224 Signed Impressions: Service Date/Time: December 13:22 - CONCLUSION: Uncomplicated CT-guided thoracentesis. David Mora MD Objective Remarks GENERAL: Patient sitting up in bed. Appears comfortable. Alert and oriented 3 NECK: Supple, trachea midline. No JVD. CARDIOVASCULAR: Regular rate and rhythm without murmurs, gallops, or rubs. RESPIRATORY: Breath sounds equal bilaterally. No accessory muscle use. GASTROINTESTINAL: Abdomen soft, non-tender, nondistended. MUSCULOSKELETAL: No cyanosis, or edema. BACK: Nontender without obvious deformity. No CVA tenderness. Procedures CT guided thoracentesis with L chest tube placement 12/29 Dr. Mora A/P Problem List: (1) Pleural effusion on left ICD Code: J90 - Pleural effusion, not elsewhere classified Status: Acute (2) Respiratory distress ICD Code: R06.00 - Dyspnea, unspecified Status: Resolved (3) Hyponatremia ICD Code: E87.1 - Hypo-osmolality and hyponatremia Status: Acute (4) COPD (chronic obstructive pulmonary disease) ICD Code: J44.9 - Chronic obstructive pulmonary disease, unspecified Status: Chronic (5) Tobacco abuse ICD Code: Z72.0 - Tobacco use Status: Chronic Assessment and Plan Respiratory Insufficiency Left-sided consolidation Exudative pleural effusion. COPD exacerbation. Urinary tract infection. Hx tobacco use Anemia, thrombocytopenia Moderate aortic valve regurgitation Moderate calcific aortic valve stenosis With resultant suspected pulmonary hypertension with pulmonary arterial pressure 69.3 Plan Continue with oxygen maintain sats above 92%. Bronchodilators, on solumederol 40mg daily IV. continue to taper, consider switching her to po prednisone in AM. Pt is known to Dr. Chung (outpatient) s/p CT guided left-sided thoracentesis and CT placement by IR 12/29. Yesterday accidentally chest tube came off. Repeat chest x-ray shows no change in the mod pleural effusion but does shows some mild patchy opacities in the right lung base. Encourage use of IS q1hr while awake. Exudative effusion. Cytology neg for malignant cells. Fluid cx neg x 72hours. CT chest 12/29 : Either highly complex fluid or soft tissue mass involving the left lung base with mass effect. This measures 12.2 x 12.6 x 7.4 cm. 4.4 cm ascending aortic aneurysm. CTS was consulted for eval for decortication. However pt refused any surgical intervention. completed 5 days of ( Rocephin, Zithromax) At this time, pt doesn't qualify for rehab or home health PT. Currently getting aggressive PT regimen here. Once pt able to stand w assistance of walker and hopefully transfer from bed to chair, we may be able to discharge her home. Both pt and agree to this plan. bangura cath removed this morning and pt able to void w no difficulty Pt is pleased w her progress. -Echocardiogram from 12/30. Says ejection fraction within normal limits, however expect calculation skewed by regurgitation -Started on afterload reduction with nifedipine. Start back on Lasix. Consult cardiology. -Continue treatment for COPD exacerbation as above.Seen by cardiology Dr Bustamante. Patient refuses, any time of work up for /AI at this time. EF preserved. Thus continue medical management with diuresis , daily weight, low salt diet, BP control and aggressive medical management for CAD. Once patient decides to undergo further evaluation she can follow with Cardiology as an outpatient. Discharge Planning Started treatment for CHF exacerbation, aortic insufficiency Cardiology evaluation. Continued weakness. Continue to work with PT. Patient is self pay. Hopefully if further strengthening, can go home with . Appreciate physical therapy and case management assistance. Problem Qualifiers (1) COPD (chronic obstructive pulmonary disease): Qualified Codes: J43.1 - Panlobular emphysema Marjorie Ratliff MD Jan 07, 2017 12:58
--- NOTE | 2017-01-07 13:54 | HHI.PR ---
Subjective Remarks Pain along left chest wall. Mild SOB . Chest tube is out. Advised her again about doing a VATS thoracotomy and decortication. Has a foot problem and is unable to walk. Objective Vital Signs Date Time Temp Pulse Resp B/P (MAP) Pulse Ox O2 Delivery O2 Flow Rate FiO2 01/07/17 12:09 98.0 98 20 118/73 (88) 98 01/07/17 10:55 90 01/07/17 09:03 97.8 95 18 131/78 (95) 99 01/07/17 07:20 Room Air 01/07/17 06:30 18 01/07/17 04:00 97.9 88 17 112/68 (83) 94 01/07/17 00:00 97.8 92 18 110/63 (79) 93 01/06/17 21:53 17 01/06/17 20:43 84 01/06/17 20:00 97.4 88 18 116/69 (85) 95 01/06/17 20:00 Room Air 01/06/17 16:00 97.6 85 18 127/75 (92) 96 I/O 01/06/17 01/06/17 01/06/17 01/07/17 01/07/17 01/07/17 07:00 15:00 23:00 07:00 15:00 23:00 Intake Total 620 ml 720 ml 480 ml Balance 620 ml 720 ml 480 ml Intake Oral 620 ml 720 ml 480 ml # Voids 2 4 1 # Bowel Movements 0 0 1 Result Diagram: 01/06/17 0732 01/06/17 0732 Objective Remarks GENERAL: This is an averagely built middle-aged white female who is pale and not dyspneic. HEENT: Head normocephalic. Pupils are reactive and equal. Tongue moist. Throat is clear. Nasal mucosa dry. NECK: Supple. No bruits, thyroid enlargement or lymphadenopathy. CHEST: Distant breath sounds at the left lung base, with occasional crackles in the left upper lung field. HEART: The heart sounds are irregular, S1-S2. No murmur. No S3. ABDOMEN: Soft and nontender. No organomegaly. Bowel sounds are active. EXTREMITIES: Edema 1+ with diminished peripheral pulses.Foot deformity. NEUROLOGIC: Reflexes are 1+ with no gross motor deficits. RECTAL: Exam is deferred. SKIN: Dry and scaly. Assessment and Plan Assessment and Plan IMPRESSION 1. COPD with acute exacerbation 2. Chronic left basilar effusion with loculation 3. Atelectasis left lower lobe with mucus plugging. 4. Hyponatremia. 5. Abnormal liver enzymes 6. Anemia and chronic disease. Plan : 1. O2 2 L. prn 2. PFT at Bedside 3. Prednisone 10 mg daily. 4. Will ask CT surgery to see her again 5. CBC,BMP. 6. PT evaluation for ambulation. 7. Continue Lasix 20 mg daily. Venessa Chung MD Jan 07, 2017 13:54
[2017-01-07] MEDS: SODIUM CHLORIDE 0.9% FLUSH 10 ML FLUSH IVF PRN (21:41)
[2017-01-08] VITALS: BP 128/72; PULSE 87; RESP 18; TEMP 98.2; O2SAT 95
[2017-01-08] MEDS: MORPHINE SULFATE 2 MG/ML INJ IV PRN ×4 (01:42→21:05)
[2017-01-08 04:00] VITALS: BP 125/68; PULSE 89; RESP 18; TEMP 97.5; O2SAT 95
[2017-01-08] MEDS: ACETAMINOPHEN/HYDROcodone 325 MG/5 MG TAB PO PRN ×3 (07:04→18:51)
[2017-01-08 08:00] VITALS: BP 136/76; PULSE 98; RESP 18; TEMP 97.5; O2SAT 97
[2017-01-08] MEDS: PANTOPRAZOLE SOD 40 MG DELAYED RELEASE TAB PO SCH (08:18)
[2017-01-08] MEDS: FUROSEMIDE 20 MG TAB PO SCH (08:18)
[2017-01-08] MEDS: DOCUSATE SODIUM 50 MG/SENNA 8.6 MG TAB PO SCH ×2 (08:18→21:06)
[2017-01-08] MEDS: predniSONE 10 MG TAB PO SCH (08:18)
[2017-01-08] MEDS: NIFEdipine 30 MG SUSTAINED RELEASE TAB PO SCH (08:18)
--- NOTE | 2017-01-08 10:07 | HHI.PR ---
Subjective Remarks Patient in bed, says he was standing with PT for 2 minutes yesterday, she is improving slowly,. Says she will see Dr Recinos tomorrow,. she is thinking regarding procedure and today will have family reunion. Objective Vitals Vital Signs Date Time Temp Pulse Resp B/P (MAP) Pulse Ox O2 Delivery O2 Flow Rate FiO2 01/08/17 08:19 18 01/08/17 08:00 97.5 98 18 136/76 (96) 97 01/08/17 04:00 97.5 89 18 125/68 (87) 95 01/08/17 00:00 98.2 87 18 128/72 (90) 95 01/07/17 20:00 97.4 92 18 126/71 (89) 100 01/07/17 20:00 Room Air 21 01/07/17 19:59 88 01/07/17 18:40 98.0 100 18 125/70 (88) 94 01/07/17 12:09 98.0 98 20 118/73 (88) 98 01/07/17 10:55 90 I/O 01/07/17 01/07/17 01/07/17 01/08/17 01/08/17 01/08/17 07:00 15:00 23:00 07:00 15:00 23:00 Intake Total 480 ml 480 ml Balance 480 ml 480 ml Intake Oral 480 ml 480 ml # Voids 1 2 # Bowel Movements 1 Result Diagram: 01/06/17 0732 01/06/17 0732 Objective Remarks GENERAL: Patient sitting up in bed. Appears comfortable. Alert and oriented 3 NECK: Supple, trachea midline. No JVD. CARDIOVASCULAR: Regular rate and rhythm without murmurs, gallops, or rubs. RESPIRATORY: Breath sounds equal bilaterally. No accessory muscle use. GASTROINTESTINAL: Abdomen soft, non-tender, nondistended. MUSCULOSKELETAL: No cyanosis, or edema. BACK: Nontender without obvious deformity. No CVA tenderness. Procedures CT guided thoracentesis with L chest tube placement 12/29 Dr. Mora A/P Problem List: (1) Pleural effusion on left ICD Code: J90 - Pleural effusion, not elsewhere classified Status: Acute (2) Respiratory distress ICD Code: R06.00 - Dyspnea, unspecified Status: Resolved (3) Hyponatremia ICD Code: E87.1 - Hypo-osmolality and hyponatremia Status: Acute (4) COPD (chronic obstructive pulmonary disease) ICD Code: J44.9 - Chronic obstructive pulmonary disease, unspecified Status: Chronic (5) Tobacco abuse ICD Code: Z72.0 - Tobacco use Status: Chronic Assessment and Plan Respiratory Insufficiency Left-sided consolidation Exudative pleural effusion. COPD exacerbation. Urinary tract infection. Hx tobacco use Anemia, thrombocytopenia Moderate aortic valve regurgitation Moderate calcific aortic valve stenosis With resultant suspected pulmonary hypertension with pulmonary arterial pressure 69.3 Plan Continue with oxygen maintain sats above 92%. Bronchodilators, on solumederol 40mg daily IV. continue to taper, consider switching her to po prednisone in AM. Pt is known to Dr. Chung (outpatient) s/p CT guided left-sided thoracentesis and CT placement by IR 12/29. Yesterday accidentally chest tube came off. Repeat chest x-ray shows no change in the mod pleural effusion but does shows some mild patchy opacities in the right lung base. Encourage use of IS q1hr while awake. Exudative effusion. Cytology neg for malignant cells. Fluid cx neg x 72hours. CT chest 12/29 : Either highly complex fluid or soft tissue mass involving the left lung base with mass effect. This measures 12.2 x 12.6 x 7.4 cm. 4.4 cm ascending aortic aneurysm. CTS was consulted for eval for decortication. However pt refused any surgical intervention initially , she is reconsidering and will see surgeon again. completed 5 days of ( Rocephin, Zithromax) At this time, pt doesn't qualify for rehab or home health PT. Currently getting aggressive PT regimen here. Once pt able to stand w assistance of walker and hopefully transfer from bed to chair, we may be able to discharge her home. Both pt and agree to this plan. bangura cath removed this morning and pt able to void w no difficulty Pt is pleased with her progress. -Echocardiogram from 12/30. Says ejection fraction within normal limits, however expect calculation skewed by regurgitation -Started on afterload reduction with nifedipine. Start back on Lasix. Consult cardiology. -Continue treatment for COPD exacerbation as above.Seen by cardiology Dr Bustamante. Patient refuses, any time of work up for /AI at this time. EF preserved. Thus continue medical management with diuresis , daily weight, low salt diet, BP control and aggressive medical management for CAD. Once patient decides to undergo further evaluation she can follow with Cardiology as an outpatient. Discharge Planning Started treatment for CHF exacerbation, aortic insufficiency Cardiology evaluation. Continued weakness. Continue to work with PT. Patient is self pay. Hopefully if further strengthening, can go home with . Appreciate physical therapy and case management assistance. CT surgeon Dr Recinos to see her again for evaluation as patient is considering surgical intervention. Problem Qualifiers (1) COPD (chronic obstructive pulmonary disease): Qualified Codes: J43.1 - Panlobular emphysema Marjorie Ratliff MD Jan 08, 2017 10:07
[2017-01-08 12:30] VITALS: BP 123/72; PULSE 86; RESP 18; TEMP 98; O2SAT 95
[2017-01-08] MEDS: MAGNESIUM HYDROXIDE SUSP 30 ML CUP PO PRN (13:20)
--- NOTE | 2017-01-08 14:06 | HHI.PR ---
Subjective Remarks Pain along left chest wall. NO SOB .Walks with a walker. Chest tube is out. Advised her again about doing a VATS thoracotomy and decortication. Has a foot problem . Objective Vital Signs Date Time Temp Pulse Resp B/P (MAP) Pulse Ox O2 Delivery O2 Flow Rate FiO2 01/08/17 12:30 98.0 86 18 123/72 (89) 95 01/08/17 11:43 18 01/08/17 08:19 18 01/08/17 08:00 97.5 98 18 136/76 (96) 97 01/08/17 04:00 97.5 89 18 125/68 (87) 95 01/08/17 00:00 98.2 87 18 128/72 (90) 95 01/07/17 20:00 97.4 92 18 126/71 (89) 100 01/07/17 20:00 Room Air 21 01/07/17 19:59 88 01/07/17 18:40 98.0 100 18 125/70 (88) 94 I/O 01/07/17 01/07/17 01/07/17 01/08/17 01/08/17 01/08/17 07:00 15:00 23:00 07:00 15:00 23:00 Intake Total 480 ml 480 ml Balance 480 ml 480 ml Intake Oral 480 ml 480 ml # Voids 1 2 # Bowel Movements 1 Result Diagram: 01/06/1773101/06/1732 Objective Remarks GENERAL: This is an averagely built middle-aged white female who is pale and not dyspneic. HEENT: Head normocephalic. Pupils are reactive and equal. Tongue moist. Throat is clear. Nasal mucosa dry. NECK: Supple. No bruits, thyroid enlargement or lymphadenopathy. CHEST: Distant breath sounds at the left lung base, with occasional crackles in the left upper lung field. HEART: The heart sounds are irregular, S1-S2. No murmur. No S3. ABDOMEN: Soft and nontender. No organomegaly. Bowel sounds are active. EXTREMITIES: Edema 1+ with diminished peripheral pulses. Bilateral Foot deformity. NEUROLOGIC: Reflexes are 1+ with no gross motor deficits. RECTAL: Exam is deferred. SKIN: Dry and scaly. Assessment and Plan Assessment and Plan IMPRESSION 1. COPD with acute exacerbation 2. Chronic left basilar effusion with loculation 3. Atelectasis left lower lobe with mucus plugging. 4. Hyponatremia. 5. Abnormal liver enzymes 6. Anemia and chronic disease. Plan : 1. O2 2 L. prn 2. IS q2h at bedside 3. Prednisone 10 mg daily. 4. Will ask CT surgery to see her again 5. CBC,BMP. 6. PT evaluation for ambulation. 7. Continue Lasix 20 mg daily. Venessa Chung MD Jan 08, 2017 14:06
[2017-01-08 16:17] VITALS: BP 131/81; PULSE 91; RESP 18; TEMP 98.1; O2SAT 97
[2017-01-08 20:00] VITALS: BP 117/70; PULSE 101; PULSE 94; RESP 16; TEMP 98.1; O2SAT 97
[2017-01-08] MEDS: SODIUM CHLORIDE 0.9% FLUSH 10 ML FLUSH IVF PRN (21:04)
[2017-01-09] VITALS (8 sets, daily range): BP systolic 114–134; BP diastolic 66–77; PULSE 74–92; RESP 18–20; TEMP 97.6–98.6; O2SAT 95–99
[2017-01-09] MEDS: ACETAMINOPHEN/HYDROcodone 325 MG/5 MG TAB PO PRN ×5 (02:07→22:27)
[2017-01-09] MEDS: MORPHINE SULFATE 2 MG/ML INJ IV PRN ×4 (03:43→20:21)
[2017-01-09] MEDS: NIFEdipine 30 MG SUSTAINED RELEASE TAB PO SCH (08:38)
[2017-01-09] MEDS: predniSONE 10 MG TAB PO SCH (08:38)
[2017-01-09] MEDS: PANTOPRAZOLE SOD 40 MG DELAYED RELEASE TAB PO SCH (08:39)
[2017-01-09] MEDS: DOCUSATE SODIUM 50 MG/SENNA 8.6 MG TAB PO SCH ×2 (08:39→20:21)
[2017-01-09] MEDS: FUROSEMIDE 20 MG TAB PO SCH (08:39)
--- NOTE | 2017-01-09 08:59 | HHI.PR ---
Subjective Remarks Says she is improving with PT, has pain and is not controlled with pain meds current q6 hrs, will change norco to q4 hrs. Patient says se was able to walk 15 feet yesterday with PT. Wants to do surgery and to improve to go home. Dr Gamboa will reevaluate patient. Objective Vitals Vital Signs Date Time Temp Pulse Resp B/P (MAP) Pulse Ox O2 Delivery O2 Flow Rate FiO2 01/09/17 04:00 97.6 88 18 114/71 (85) 98 01/09/17 04:00 Room Air 01/09/17 00:00 98.0 92 18 126/73 (90) 96 01/09/17 00:00 Room Air 01/08/17 20:00 98.1 94 16 117/70 (86) 97 01/08/17 20:00 101 01/08/17 20:00 Room Air 01/08/17 16:17 98.1 91 18 131/81 (98) 97 01/08/17 15:40 18 01/08/17 15:16 18 01/08/17 12:30 98.0 86 18 123/72 (89) 95 I/O 01/08/17 01/08/17 01/08/17 01/09/17 01/09/17 01/09/17 07:00 15:00 23:00 07:00 15:00 23:00 Intake Total 240 ml 480 ml Balance 240 ml 480 ml Intake Oral 240 ml 480 ml # Voids 3 2 # Bowel Movements 0 Result Diagram: 01/06/17 0732 01/06/17 0732 Imaging Last Impressions Chest X-Ray 01/06/17 0000 Signed Impressions: Service Date/Time: Friday, January 06, 2017 13:06 - CONCLUSION: Moderate to large left pleural effusion occupying one half of the left hemithorax. Raf Lindsay MD FACR Chest CT 12/31/16 0000 Signed Impressions: Service Date/Time: Saturday, December 31, 2016 14:44 - CONCLUSION: 1. Interval placement of left-sided chest tube with slight decrease in the complex low-density fluid collection in the lower left hemithorax. 2. Volume loss remains in the left hemithorax with consolidation in the left infrahilar region 3. New small right pleural effusion and consolidation in the right posterior lower lobe 4. The previously noted fluid and debris in the left mainstem bronchus is no longer present. Kashif Garcia MD Chest Ultrasound 12/30/16 0000 Signed Impressions: Service Date/Time: Friday, December 30, 2016 09:59 - CONCLUSION: No focal collections of anechoic free fluid. Prominent amount of heterogeneous echotexture material surrounding the left lower chest. Art Willard MD Chest Tube Insertion 12/29/16 1224 Signed Impressions: Service Date/Time: December 13:22 - CONCLUSION: Uncomplicated CT-guided thoracentesis. David Mora MD Objective Remarks GENERAL: Patient sitting up in bed. Appears comfortable. Alert and oriented 3 NECK: Supple, trachea midline. No JVD. CARDIOVASCULAR: Regular rate and rhythm without murmurs, gallops, or rubs. RESPIRATORY: Breath sounds equal bilaterally. No accessory muscle use. GASTROINTESTINAL: Abdomen soft, non-tender, nondistended. MUSCULOSKELETAL: No cyanosis, or edema. BACK: Nontender without obvious deformity. No CVA tenderness. Procedures CT guided thoracentesis with L chest tube placement 12/29 Dr. Mora A/P Problem List: (1) Pleural effusion on left ICD Code: J90 - Pleural effusion, not elsewhere classified Status: Acute (2) Respiratory distress ICD Code: R06.00 - Dyspnea, unspecified Status: Resolved (3) Hyponatremia ICD Code: E87.1 - Hypo-osmolality and hyponatremia Status: Acute (4) COPD (chronic obstructive pulmonary disease) ICD Code: J44.9 - Chronic obstructive pulmonary disease, unspecified Status: Chronic (5) Tobacco abuse ICD Code: Z72.0 - Tobacco use Status: Chronic Assessment and Plan Respiratory Insufficiency Left-sided consolidation Exudative pleural effusion. COPD exacerbation. Urinary tract infection. Hx tobacco use Anemia, thrombocytopenia Moderate aortic valve regurgitation Moderate calcific aortic valve stenosis With resultant suspected pulmonary hypertension with pulmonary arterial pressure 69.3 Plan Continue with oxygen maintain sats above 92%. Bronchodilators, on solumederol 40mg daily IV. continue to taper, consider switching her to po prednisone in AM. Pt is known to Dr. Chung (outpatient) s/p CT guided left-sided thoracentesis and CT placement by IR 12/29. Yesterday accidentally chest tube came off. Repeat chest x-ray shows no change in the mod pleural effusion but does shows some mild patchy opacities in the right lung base. Encourage use of IS q1hr while awake. Exudative effusion. Cytology neg for malignant cells. Fluid cx neg x 72hours. CT chest 12/29 : Either highly complex fluid or soft tissue mass involving the left lung base with mass effect. This measures 12.2 x 12.6 x 7.4 cm. 4.4 cm ascending aortic aneurysm. CTS was consulted for eval for decortication. However pt refused any surgical intervention initially , she is reconsidering and will see surgeon again. completed 5 days of ( Rocephin, Zithromax) At this time, pt doesn't qualify for rehab or home health PT. Currently getting aggressive PT regimen here. Once pt able to stand w assistance of walker and hopefully transfer from bed to chair, we may be able to discharge her home. Both pt and agree to this plan. bangura cath removed this morning and pt able to void w no difficulty Pt is pleased with her progress. -Echocardiogram from 12/30. Says ejection fraction within normal limits, however expect calculation skewed by regurgitation -Started on afterload reduction with nifedipine. Start back on Lasix. Consult cardiology. -Continue treatment for COPD exacerbation as above.Seen by cardiology Dr Bustamante. Patient refuses, any time of work up for /AI at this time. EF preserved. Thus continue medical management with diuresis , daily weight, low salt diet, BP control and aggressive medical management for CAD. Once patient decides to undergo further evaluation she can follow with Cardiology as an outpatient. Discharge Planning Started treatment for CHF exacerbation, aortic insufficiency Cardiology evaluation. Continued weakness. Continue to work with PT. Patient is self pay. Hopefully if further strengthening, can go home with . Appreciate physical therapy and case management assistance. CT surgeon Dr Recinos to see her again for evaluation as patient is considering surgical intervention. Problem Qualifiers (1) COPD (chronic obstructive pulmonary disease): Qualified Codes: J43.1 - Panlobular emphysema Marjorie Ratliff MD Jan 09, 2017 08:59
[2017-01-09] MEDS ORDERED: ACETAMINOPHEN/HYDROcodone 325 MG/5 MG TAB PO PRN (09:00)
--- NOTE | 2017-01-09 19:17 | HHI.PR ---
Subjective Remarks Feels OK . NO SOB .Walks with a walker. She is now agreeable to go for Vats Thoracotomy decortication. Has a foot problem . Objective Vital Signs Date Time Temp Pulse Resp B/P (MAP) Pulse Ox O2 Delivery O2 Flow Rate FiO2 01/09/17 16:00 97.6 87 18 116/66 (83) 95 01/09/17 15:00 22 01/09/17 12:00 98.6 74 18 134/70 (91) 99 01/09/17 11:03 20 01/09/17 09:45 20 01/09/17 09:00 Room Air 01/09/17 08:00 98.0 92 19 129/77 (94) 98 01/09/17 07:53 83 01/09/17 04:00 97.6 88 18 114/71 (85) 98 01/09/17 04:00 Room Air 01/09/17 00:00 98.0 92 18 126/73 (90) 96 01/09/17 00:00 Room Air 01/08/17 20:00 98.1 94 16 117/70 (86) 97 01/08/17 20:00 101 01/08/17 20:00 Room Air I/O 01/08/17 01/08/17 01/08/17 01/09/17 01/09/17 01/09/17 07:00 15:00 23:00 07:00 15:00 23:00 Intake Total 240 ml 480 ml 960 ml Balance 240 ml 480 ml 960 ml Intake Oral 240 ml 480 ml 960 ml # Voids 3 2 5 # Bowel Movements 0 Result Diagram: 01/06/17 0732 01/06/17 0732 Objective Remarks GENERAL: This is an averagely built middle-aged white female who is pale and not dyspneic. HEENT: Head normocephalic. Pupils are reactive and equal. Tongue moist. Throat is clear. Nasal mucosa dry. NECK: Supple. No bruits, thyroid enlargement or lymphadenopathy. CHEST: Distant breath sounds at the left lung base, with occasional crackles in the left upper lung field. HEART: The heart sounds are irregular, S1-S2. No murmur. No S3. ABDOMEN: Soft and nontender. No organomegaly. Bowel sounds are active. EXTREMITIES: Edema 1+ with diminished peripheral pulses. Bilateral Foot deformity. NEUROLOGIC: Reflexes are 1+ with no gross motor deficits. RECTAL: Exam is deferred. SKIN: Dry and scaly. Assessment and Plan Assessment and Plan IMPRESSION 1. COPD with acute exacerbation 2. Chronic left basilar effusion with loculation 3. Atelectasis left lower lobe with mucus plugging. 4. Hyponatremia. 5. Abnormal liver enzymes 6. Anemia and chronic disease. Plan : 1. O2 2 L. prn 2. IS q2h at bedside 3. D/C Prednisone 4. Will ask CT surgery to see her again 5. CBC,BMP.CXR in am 6. PT evaluation for ambulation. 7. Continue Lasix 20 mg daily. Venessa Chung MD Jan 09, 2017 19:17
[2017-01-09] MEDS: MAGNESIUM HYDROXIDE SUSP 30 ML CUP PO PRN (20:33)
[2017-01-10] VITALS (7 sets, daily range): BP systolic 110–132; BP diastolic 66–75; PULSE 75–110; RESP 19–20; TEMP 97.4–98.1; O2SAT 94–97
[2017-01-10] MEDS: MORPHINE SULFATE 2 MG/ML INJ IV PRN ×5 (00:53→21:15)
[2017-01-10] MEDS: ACETAMINOPHEN/HYDROcodone 325 MG/5 MG TAB PO PRN ×5 (04:36→23:18)
--- NOTE | 2017-01-10 08:07 | HHI.PR ---
Subjective Remarks Seen by Dr Recinos plan for decortication tomorrow. Patient say she has constipation despite taking stool softeners and MOM, will add lactulose. No chest pain , no n/v/d. Objective Vitals Vital Signs Date Time Temp Pulse Resp B/P (MAP) Pulse Ox O2 Delivery O2 Flow Rate FiO2 01/10/17 04:00 97.6 110 20 132/75 (94) 95 01/10/17 00:00 97.6 97 20 118/66 (83) 94 01/09/17 21:29 80 01/09/17 20:00 97.6 90 20 122/72 (89) 97 01/09/17 19:45 Room Air 01/09/17 16:00 97.6 87 18 116/66 (83) 95 01/09/17 15:00 22 01/09/17 12:00 98.6 74 18 134/70 (91) 99 01/09/17 11:03 20 01/09/17 09:45 20 01/09/17 09:00 Room Air I/O 01/09/17 01/09/17 01/09/17 01/10/17 01/10/17 01/10/17 07:00 15:00 23:00 07:00 15:00 23:00 Intake Total 480 ml 960 ml 480 ml Balance 480 ml 960 ml 480 ml Intake Oral 480 ml 960 ml 480 ml # Voids 2 5 1 # Bowel Movements 0 Result Diagram: 01/06/17 0732 01/06/17 0732 Imaging Last Impressions Chest X-Ray 01/06/17 0000 Signed Impressions: Service Date/Time: Friday, January 06, 2017 13:06 - CONCLUSION: Moderate to large left pleural effusion occupying one half of the left hemithorax. Raf Lindsay MD FACR Chest CT 12/31/16 0000 Signed Impressions: Service Date/Time: Saturday, December 31, 2016 14:44 - CONCLUSION: 1. Interval placement of left-sided chest tube with slight decrease in the complex low-density fluid collection in the lower left hemithorax. 2. Volume loss remains in the left hemithorax with consolidation in the left infrahilar region 3. New small right pleural effusion and consolidation in the right posterior lower lobe 4. The previously noted fluid and debris in the left mainstem bronchus is no longer present. Kashif Garcia MD Chest Ultrasound 12/30/16 0000 Signed Impressions: Service Date/Time: Friday, December 30, 2016 09:59 - CONCLUSION: No focal collections of anechoic free fluid. Prominent amount of heterogeneous echotexture material surrounding the left lower chest. Art Willard MD Chest Tube Insertion 12/29/16 1224 Signed Impressions: Service Date/Time: December 13:22 - CONCLUSION: Uncomplicated CT-guided thoracentesis. David Mora MD Objective Remarks GENERAL: Patient sitting up in bed. Appears comfortable. Alert and oriented 3 NECK: Supple, trachea midline. No JVD. CARDIOVASCULAR: Regular rate and rhythm without murmurs, gallops, or rubs. RESPIRATORY: Breath sounds equal bilaterally. No accessory muscle use. GASTROINTESTINAL: Abdomen soft, non-tender, nondistended. MUSCULOSKELETAL: No cyanosis, or edema. BACK: Nontender without obvious deformity. No CVA tenderness. Procedures CT guided thoracentesis with L chest tube placement 12/29 Dr. Mora A/P Problem List: (1) Pleural effusion on left ICD Code: J90 - Pleural effusion, not elsewhere classified Status: Acute (2) Respiratory distress ICD Code: R06.00 - Dyspnea, unspecified Status: Resolved (3) Hyponatremia ICD Code: E87.1 - Hypo-osmolality and hyponatremia Status: Acute (4) COPD (chronic obstructive pulmonary disease) ICD Code: J44.9 - Chronic obstructive pulmonary disease, unspecified Status: Chronic (5) Tobacco abuse ICD Code: Z72.0 - Tobacco use Status: Chronic Assessment and Plan Respiratory Insufficiency Left-sided consolidation Exudative pleural effusion. COPD exacerbation. Urinary tract infection. Hx tobacco use Anemia, thrombocytopenia Moderate aortic valve regurgitation Moderate calcific aortic valve stenosis With resultant suspected pulmonary hypertension with pulmonary arterial pressure 69.3 Plan Continue with oxygen maintain sats above 92%. Bronchodilators, on solumederol 40mg daily IV. continue to taper, consider switching her to po prednisone in AM. Pt is known to Dr. Chung (outpatient) s/p CT guided left-sided thoracentesis and CT placement by IR 12/29. Chest tube was removed. Repeat chest x-ray shows no change in the mod pleural effusion but does shows some mild patchy opacities in the right lung base. Encourage use of IS q1hr while awake. Exudative effusion. Cytology neg for malignant cells. Fluid cx neg x 72hours. CT chest 12/29 : Either highly complex fluid or soft tissue mass involving the left lung base with mass effect. This measures 12.2 x 12.6 x 7.4 cm. 4.4 cm ascending aortic aneurysm. CTS was consulted for eval for decortication. However pt refused any surgical intervention initially, reconsidered and plan for surgery 01/11/[address] Recinos. Keep NPO after midnight. CTS ff. completed 5 days of ( Rocephin, Zithromax) At this time, pt doesn't qualify for rehab or home health PT. Currently getting aggressive PT regimen here. Once pt able to stand w assistance of walker and hopefully transfer from bed to chair, we may be able to discharge her home. Both pt and agree to this plan. bangura cath removed and pt able to void w no difficulty Pt is pleased with her progress. -Echocardiogram from 12/30. Says ejection fraction within normal limits, however expect calculation skewed by regurgitation -Started on afterload reduction with nifedipine. Start back on Lasix. Consult cardiology. -Continue treatment for COPD exacerbation as above.Seen by cardiology Dr Bustamante. Patient refuses, any time of work up for /AI at this time. EF preserved. Thus continue medical management with diuresis , daily weight, low salt diet, BP control and aggressive medical management for CAD. Once patient decides to undergo further evaluation she can follow with Cardiology as an outpatient. Discharge Planning Started treatment for CHF exacerbation, aortic insufficiency Cardiology evaluation. Continued weakness. Continue to work with PT. Patient is self pay. Hopefully if further strengthening, can go home with . Appreciate physical therapy and case management assistance. Seen by CT surgeon Dr Recinos, plans for decortication tomorrow 01/11/17. Problem Qualifiers (1) COPD (chronic obstructive pulmonary disease): Qualified Codes: J43.1 - Panlobular emphysema Marjorie Ratliff MD Jan 10, 2017 08:07
[2017-01-10] MEDS: FUROSEMIDE 20 MG TAB PO SCH (08:40)
[2017-01-10] MEDS: NIFEdipine 30 MG SUSTAINED RELEASE TAB PO SCH (08:40)
[2017-01-10] MEDS: PANTOPRAZOLE SOD 40 MG DELAYED RELEASE TAB PO SCH (08:40)
[2017-01-10] MEDS: predniSONE 10 MG TAB PO SCH (08:40)
[2017-01-10] MEDS: DOCUSATE SODIUM 50 MG/SENNA 8.6 MG TAB PO SCH ×2 (08:43→20:16)
[2017-01-10 10:02] LABS: BICARBONATE 31.9 MEQ/L (21.0-32.0); POTASSIUM 3.8 MEQ/L (3.5-5.1)
[2017-01-10] MEDS ORDERED: LACTULOSE SYRUP 20 GM/30 ML CUP PO PRN (13:00)
[2017-01-10] MEDS ORDERED: LACTULOSE SYRUP 20 GM/30 ML CUP PO ONE (13:00)
[2017-01-10] MEDS ORDERED: SIMETHICONE 125 MG CHEWABLE TAB PO ONE (13:30)
--- NOTE | 2017-01-10 16:05 | PD.CAR.PN ---
CVT Progress Note Subjective/Hospital Course: 56-year-old white female with a history of COPD, chronic bronchitis who apparently was suffering from food poisoning. The patient states that she was unable to pass urine and became very weak, had lost weight with diarrhea, abdominal discomfort, dehydration and presented to ER for evaluation. She c/o 20 lb weight loss over the past [address] done showed evidence of a loculated mass-like infiltrate in the left lung base 12 x 12 cm and a left upper lobe lung nodule 7 mm. The patient was started on Solu-Medrol, IV antibiotics including Rocephin and Zithromax. Denies chest pains or abdominal pains or nausea or vomiting. She underwent chest tube placement in IR 12/29 with minimal drainage of this effusion.. Chest tube was removed. Repeat chest x- ray shows no change in the mod pleural effusion but does shows some mild patchy opacities in the right lung base. cardiology Dr Dianna perez pt TTE shows preserved EF and at least moderate /AI. present diagnosis : Respiratory Insufficiency, Left-sided consolidation , Exudative pleural effusion, COPD exacerbation, Urinary tract infection, x tobacco use Anemia, thrombocytopenia, Moderate aortic valve regurgitation, Moderate calcific aortic valve stenosis pleural fluid : exudative effusion. Cytology neg for malignant cells. Fluid cx neg CT chest 12/29 : Either highly complex fluid or soft tissue mass involving the left lung base with mass effect. This measures 12.2 x 12.6 x 7.4 cm. 4.4 cm ascending aortic aneurysm. pt is now agreeable for surgery : plan is for left thoracoscopic exploration for loculated pleural effusion , possible thoracotomy , decortication in am Objective: GENERAL: SKIN: Warm and dry. HEAD: Normocephalic. EYES: No scleral icterus. No injection or drainage. NECK: Supple, trachea midline. No JVD or lymphadenopathy. CARDIOVASCULAR: Regular rate and rhythm without murmurs, gallops, or rubs. RESPIRATORY: diminished on left lower lobe No accessory muscle use. GASTROINTESTINAL: Abdomen soft, non-tender, nondistended. MUSCULOSKELETAL: No cyanosis, or edema. BACK: Nontender without obvious deformity. No CVA tenderness. Vital Signs Date Time Temp Pulse Resp B/P (MAP) Pulse Ox O2 Delivery O2 Flow Rate FiO2 01/10/17 12:00 97.8 78 20 119/66 (83) 95 01/10/17 08:00 97.4 90 20 132/72 (92) 94 01/10/17 04:00 97.6 110 20 132/75 (94) 95 01/10/17 00:00 97.6 97 20 118/66 (83) 94 01/09/17 21:29 80 01/09/17 20:00 97.6 90 20 122/72 (89) 97 01/09/17 19:45 Room Air 01/09/17 16:00 97.6 87 18 116/66 (83) 95 Labs: Laboratory Tests Test 01/10/17 09:00 Blood Urea Nitrogen 9 MG/DL (7-18) Creatinine 0.65 MG/DL (0.50-1.00) Random Glucose 95 MG/DL (74-106) Calcium Level 8.5 MG/DL (8.5-10.1) Sodium Level 134 MEQ/L (136-145) Potassium Level 3.8 MEQ/L (3.5-5.1) Chloride Level 98 MEQ/L (98-107) Carbon Dioxide Level 31.9 MEQ/L (21.0-32.0) Anion Gap 4 MEQ/L (5-15) Estimat Glomerular Filtration Rate 94 ML/MIN (>89) Result Diagram: 01/06/17 0732 01/10/17 0900 (1) COPD (chronic obstructive pulmonary disease) Plan: IMPRESSION 1. COPD with acute exacerbation 2. Chronic left basilar effusion with loculation 3. Atelectasis left lower lobe with mucus plugging. 4. Hyponatremia. 5. Abnormal liver enzymes 6. Anemia and chronic disease. 7. Aortic Stenosis/AI 8. Soft tissue mass involving the left lung base with mass effect. 9. 4.4 cm ascending aortic aneurysm. 10. Deconditioned Patient refuses, any time of work up for /AI at this time. EF preserved. Thus continue medical management with diuresis , daily weight, low salt diet, BP control and aggressive medical management for CAD. Once patient decides to undergo further evaluation she can follow with Cardiology as an outpatient. Thank you for the opportunity to take part in the car of this patient. Will be available on a PRN basis for any questions or concerns (2) Respiratory distress (3) Tobacco abuse (4) Physical deconditioning (5) Pleural effusion on left Plan: for left thoracoscopic exploration for loculated pleural effusion in am (6) Hyponatremia (7) Hypochloremia Problem Qualifiers (1) COPD (chronic obstructive pulmonary disease): Qualified Codes: J43.1 - Panlobular emphysema Alda Mcclain Jan 10, 2017 16:05
[2017-01-10] MEDS ORDERED: SODIUM CHLORIDE 0.9% FLUSH 10 ML FLUSH IV FLUSH PRN (16:15)
[2017-01-10] MEDS ORDERED: DEXTROSE 50% IN WATER 50 ML VIAL(D50) IV PUSH PRN (16:15)
[2017-01-10] MEDS ORDERED: CEFAZOLIN INJ 500 MG in SODIUM CHLORIDE 0.9% IRR BTL 500 ML IRRIGATION SCH (16:15)
[2017-01-10] MEDS ORDERED: CHLORHEXIDINE GLUCONATE 4% SOLN 120 ML BTL TOPICAL SCH (16:15)
[2017-01-10] MEDS ORDERED: ceFAZolin 2 GM PREMIX 50 ML IV SCH (16:15)
[2017-01-10] MEDS: SENNOSIDES 8.6 MG TAB PO PRN (17:10)
[2017-01-10 17:36] LABS: INTERNATIONAL NORMALIZED RATIO 0.9 RATIO; PROTHROMBIN TIME - PATIENT 10.2 SEC (9.8-11.6)
[2017-01-10] MEDS ORDERED: SODIUM CHLORID 0.9% 500 ML IV PRN (18:30)
[2017-01-10] MEDS ORDERED: POVIDONE IODINE 5% (ANTISEPSIS KIT) 4 APPLICATIONS EACH NARE PRN (18:30)
[2017-01-10] MEDS ORDERED: METOPROLOL TARTRATE 25 MG TAB PO PRN (18:30)
[2017-01-10] MEDS ORDERED: INSULIN HUMAN REGULAR 1,000 UNITS/10 ML VIAL SQ PRN (18:30)
[2017-01-10] MEDS ORDERED: LACTATED RINGER'S 1000 ML IV PRN (18:30)
[2017-01-10] MEDS ORDERED: CHLORHEXIDINE GLUCONATE 2 % 1 PACK (2 CLOTHS) TOPICAL PRN (18:30)
--- NOTE | 2017-01-10 19:11 | HHI.PR ---
Subjective Remarks Will go for surgery in am . NO SOB .Walks with a walker. She is now agreeable to go for Vats Thoracotomy and decortication. Has a foot problem . Objective Vital Signs Date Time Temp Pulse Resp B/P (MAP) Pulse Ox O2 Delivery O2 Flow Rate FiO2 01/10/17 16:20 97.4 100 19 130/75 (93) 96 01/10/17 12:00 97.8 78 20 119/66 (83) 95 01/10/17 08:00 97.4 90 20 132/72 (92) 94 01/10/17 04:00 97.6 110 20 132/75 (94) 95 01/10/17 00:00 97.6 97 20 118/66 (83) 94 01/09/17 21:29 80 01/09/17 20:00 97.6 90 20 122/72 (89) 97 01/09/17 19:45 Room Air I/O 01/09/17 01/09/17 01/09/17 01/10/17 01/10/17 01/10/17 07:00 15:00 23:00 07:00 15:00 23:00 Intake Total 480 ml 960 ml 480 ml 760 ml Output Total 600 ml Balance 480 ml 960 ml 480 ml 160 ml Intake Oral 480 ml 960 ml 480 ml 760 ml Output Urine Total 600 ml # Voids 2 5 1 # Bowel Movements 0 0 Result Diagram: 01/06/17 0732 01/10/17 0900 Objective Remarks GENERAL: This is an averagely built middle-aged white female who is pale and not dyspneic. HEENT: Head normocephalic. Pupils are reactive and equal. Tongue moist. Throat is clear. Nasal mucosa dry. NECK: Supple. No bruits, thyroid enlargement or lymphadenopathy. CHEST: Distant breath sounds at the left lung base and occ wheeze. HEART: The heart sounds are irregular, S1-S2. No murmur. No S3. ABDOMEN: Soft and nontender. No organomegaly. Bowel sounds are active. EXTREMITIES: Edema 1+ with diminished peripheral pulses. Bilateral Foot deformity. NEUROLOGIC: Reflexes are 1+ with no gross motor deficits. SKIN: Dry and scaly. Assessment and Plan Assessment and Plan IMPRESSION 1. COPD with acute exacerbation 2. Chronic left basilar effusion with loculation 3. Atelectasis left lower lobe with mucus plugging. 4. Hyponatremia. 5. Abnormal liver enzymes 6. Anemia and chronic disease. Plan : 1. O2 2 L. prn 2. IS q2h at bedside 3. For Vats thoracotomy and Decortication 4. Duoneb nebs tid. 5. CBC,BMP. in am 6. PT evaluation for ambulation. 7. Continue Lasix 20 mg daily. Venessa Chung MD Jan 10, 2017 19:11
[2017-01-10] MEDS: SODIUM CHLORIDE 0.9% FLUSH 10 ML FLUSH IV FLUSH SCH (20:15)
[2017-01-11] VITALS (11 sets, daily range): BP systolic 105–139; BP diastolic 57–71; PULSE 72–95; RESP 8–21; TEMP 97.3–97.9; O2SAT 92–100
[2017-01-11] MEDS: MORPHINE SULFATE 2 MG/ML INJ IV PRN ×4 (01:45→13:33)
[2017-01-11] MEDS: RESP: ALBUTEROL 2.5 MG/IPRATROPIUM 0.5 MG NEB (SCH) NEB ×3 (04:02→15:42)
[2017-01-11] MEDS: ACETAMINOPHEN/HYDROcodone 325 MG/5 MG TAB PO PRN ×2 (04:24→08:47)
[2017-01-11] MEDS: predniSONE 10 MG TAB PO SCH (08:41)
[2017-01-11] MEDS: PANTOPRAZOLE SOD 40 MG DELAYED RELEASE TAB PO SCH ×2 (08:41→23:35)
[2017-01-11] MEDS: NIFEdipine 30 MG SUSTAINED RELEASE TAB PO SCH (08:42)
[2017-01-11] MEDS: FUROSEMIDE 20 MG TAB PO SCH (08:42)
[2017-01-11] MEDS: DOCUSATE SODIUM 50 MG/SENNA 8.6 MG TAB PO SCH (08:44)
[2017-01-11] MEDS: SODIUM CHLORIDE 0.9% FLUSH 10 ML FLUSH IV FLUSH SCH (09:00)
--- NOTE | 2017-01-11 09:40 | EKG ---
Date Performed: 01/10/2017 Time Performed: 21:26:37 PTAGE: 56 years EKG: Sinus rhythm NORMAL ECG PREVIOUS TRACING : 12/29/2016 09.46 DOCTOR: Jamie Goyal Interpretating Date/Time 01/11/2017 09:36:21
--- NOTE | 2017-01-11 09:43 | HHI.PR ---
Subjective Remarks had a good night- "little anxious" but looking forward to procedure today Objective Vitals Vital Signs Date Time Temp Pulse Resp B/P (MAP) Pulse Ox O2 Delivery O2 Flow Rate FiO2 01/11/17 08:00 97.5 85 18 135/63 (87) 94 01/11/17 04:05 94 01/11/17 04:00 97.9 78 18 139/68 (91) 97 01/11/17 00:00 97.9 95 21 132/71 (91) 95 01/10/17 21:10 77 01/10/17 20:00 98.1 90 20 110/70 (83) 97 01/10/17 19:45 Room Air 01/10/17 16:20 97.4 100 19 130/75 (93) 96 01/10/17 12:00 97.8 78 20 119/66 (83) 95 I/O 01/10/17 01/10/17 01/10/17 01/11/17 01/11/17 01/11/17 07:00 15:00 23:00 07:00 15:00 23:00 Intake Total 480 ml 760 ml 0 ml Output Total 600 ml Balance 480 ml 160 ml 0 ml Intake Oral 480 ml 760 ml 0 ml Output Urine Total 600 ml # Voids 1 2 # Bowel Movements 0 Result Diagram: 01/10/17 0900 Imaging Last Impressions Chest X-Ray 01/06/17 0000 Signed Impressions: Service Date/Time: Friday, January 06, 2017 13:06 - CONCLUSION: Moderate to large left pleural effusion occupying one half of the left hemithorax. Raf Lindsay MD FACR Chest CT 12/31/16 0000 Signed Impressions: Service Date/Time: Saturday, December 31, 2016 14:44 - CONCLUSION: 1. Interval placement of left-sided chest tube with slight decrease in the complex low-density fluid collection in the lower left hemithorax. 2. Volume loss remains in the left hemithorax with consolidation in the left infrahilar region 3. New small right pleural effusion and consolidation in the right posterior lower lobe 4. The previously noted fluid and debris in the left mainstem bronchus is no longer present. Kashif Garcia MD Chest Ultrasound 12/30/16 0000 Signed Impressions: Service Date/Time: Friday, December 30, 2016 09:59 - CONCLUSION: No focal collections of anechoic free fluid. Prominent amount of heterogeneous echotexture material surrounding the left lower chest. Art Willard MD Chest Tube Insertion 12/29/16 1224 Signed Impressions: Service Date/Time: , December 29, 2016 13:22 - CONCLUSION: Uncomplicated CT-guided thoracentesis. David Mora MD Objective Remarks awake and alert, no acute distress 0s sat 99% at room air anicteric lungs- no rales or wheezes regular rhythm, 3/6 systolic murmur left sternal border trace bilateral pretibial edema Procedures CT guided thoracentesis with L chest tube placement 12/29 Dr. Mora A/P Problem List: (1) Pleural effusion on left ICD Code: J90 - Pleural effusion, not elsewhere classified Status: Acute (2) Respiratory distress ICD Code: R06.00 - Dyspnea, unspecified Status: Resolved (3) Hyponatremia ICD Code: E87.1 - Hypo-osmolality and hyponatremia Status: Acute (4) COPD (chronic obstructive pulmonary disease) ICD Code: J44.9 - Chronic obstructive pulmonary disease, unspecified Status: Chronic (5) Tobacco abuse ICD Code: Z72.0 - Tobacco use Status: Chronic Assessment and Plan Respiratory Insufficiency Left-sided consolidation Exudative pleural effusion. COPD exacerbation. Urinary tract infection. Hx tobacco use Anemia, thrombocytopenia Moderate aortic valve regurgitation Moderate calcific aortic valve stenosis With resultant suspected pulmonary hypertension with pulmonary arterial pressure 69.3 Plan Continue with oxygen maintain sats above 92%. Bronchodilators, on Prednisone 10 mg daily - Dr. Juliet shipley (outpatient) s/p CT guided left-sided thoracentesis and CT placement by IR 12/29. CT oout. Encourage use of IS q1hr while awake. Exudative effusion. Cytology neg for malignant cells. Fluid cx neg x 72hours. CT chest 12/29 : Either highly complex fluid or soft tissue mass involving the left lung base with mass effect. This measures 12.2 x 12.6 x 7.4 cm. 4.4 cm ascending aortic aneurysm. CTS ff- for decortication surgery today - 01/11/[address] Recinos. Keep NPO after midnight. CTS ff. completed 5 days of ( Rocephin, Zithromax) At this time, pt doesn't qualify for rehab or home health PT. Currently getting aggressive PT regimen here. Once pt able to stand w assistance of walker and hopefully transfer from bed to chair, we may be able to discharge her home. Both pt Pt is pleased with her progress. -Echocardiogram from 12/30. Says ejection fraction within normal limits, however expect calculation skewed by regurgitation - on afterload reduction with nifedipine. on Lasix. Cardiology ff -Continue treatment for COPD exacerbation as above.Seen by cardiology Dr Bustamante. Patient refuses, any time of work up for /AI at this time. EF preserved. Thus continue medical management with diuresis , daily weight, low salt diet, BP control and aggressive medical management for CAD. Once patient decides to undergo further evaluation she can follow with Cardiology as an outpatient. Discharge Planning Started treatment for CHF exacerbation, aortic insufficiency Continue to work with PT. Patient is self pay. Hopefully if further strengthening, can go home with . Appreciate physical therapy and case management assistance. Seen by CT surgeon Dr Recinos, plans for decortication today 01/11/17. Problem Qualifiers (1) COPD (chronic obstructive pulmonary disease): Qualified Codes: J43.1 - Panlobular emphysema Addison Ray MD Jan 11, 2017 09:43
[2017-01-11] MEDS ORDERED: ROCURONIUM INJ 50 MG/5 ML SYRINGE IV PUSH ONE (12:00)
[2017-01-11] MEDS ORDERED: LACTATED RINGER'S 1000 ML INJ 1,000 ML IV ONE (12:00)
[2017-01-11] MEDS ORDERED: PROPOFOL 200 MG/20 ML AMP IV ONE (12:00)
[2017-01-11] MEDS ORDERED: GLYCOPYRROLATE 1 MG/5 ML SYRINGE IV PUSH ONE (12:00)
[2017-01-11] MEDS ORDERED: NEOSTIGMINE 3 MG/3 ML SYR IV ONE (12:00)
[2017-01-11] MEDS ORDERED: PHENYLEPH/NS 1000 MCG/10 ML SYR IV ONE (12:00)
[2017-01-11] MEDS ORDERED: ONDANSETRON HCL 4 MG/2 ML VIAL IV PUSH ONE (12:00)
[2017-01-11] MEDS ORDERED: NORMOSOL R INJ 1,000 ML IV ONE (12:00)
[2017-01-11] MEDS ORDERED: LIDOCAINE HCL 1% PF 5 ML AMPULE OTHER ONE (12:00)
[2017-01-11] MEDS ORDERED: MORPHINE SULFATE 4 MG/ML INJ IV ONE (12:00)
--- NOTE | 2017-01-11 13:35 | PD.CAR.PN ---
CVT Progress Note Subjective/Hospital Course: 56-year-old white female with a history of COPD, chronic bronchitis who apparently was suffering from food poisoning. The patient states that she was unable to pass urine and became very weak, had lost weight with diarrhea, abdominal discomfort, dehydration and presented to ER for evaluation. She c/o 20 lb weight loss over the past [address] done showed evidence of a loculated mass-like infiltrate in the left lung base 12 x 12 cm and a left upper lobe lung nodule 7 mm. The patient was started on Solu-Medrol, IV antibiotics including Rocephin and Zithromax. Denies chest pains or abdominal pains or nausea or vomiting. She underwent chest tube placement in IR 12/29 with minimal drainage of this effusion.. Chest tube was removed. Repeat chest x- ray shows no change in the mod pleural effusion but does shows some mild patchy opacities in the right lung base. cardiology Dr Dianna perez pt TTE shows preserved EF and at least moderate /AI. present diagnosis : Respiratory Insufficiency, Left-sided consolidation , Exudative pleural effusion, COPD exacerbation, Urinary tract infection, x tobacco use Anemia, thrombocytopenia, Moderate aortic valve regurgitation, Moderate calcific aortic valve stenosis pleural fluid : exudative effusion. Cytology neg for malignant cells. Fluid cx neg CT chest 12/29 : Either highly complex fluid or soft tissue mass involving the left lung base with mass effect. This measures 12.2 x 12.6 x 7.4 cm. 4.4 cm ascending aortic aneurysm. pt is now agreeable for surgery : plan is for left thoracoscopic exploration for loculated pleural effusion , possible thoracotomy , decortication in am 01/11 on nasal cannula for surgery today Objective: GENERAL: SKIN: Warm and dry. petechia , ecchymotic areas to both arms HEAD: Normocephalic. EYES: No scleral icterus. No injection or drainage. NECK: Supple, trachea midline. No JVD or lymphadenopathy. CARDIOVASCULAR: Regular rate and rhythm without murmurs, gallops, or rubs. RESPIRATORY: diminished left lower lobe No accessory muscle use. GASTROINTESTINAL: Abdomen soft, non-tender, nondistended. MUSCULOSKELETAL: No cyanosis, or edema. BACK: Nontender without obvious deformity. No CVA tenderness. Vital Signs Date Time Temp Pulse Resp B/P (MAP) Pulse Ox O2 Delivery O2 Flow Rate FiO2 01/11/17 12:00 97.6 75 18 130/70 (90) 92 01/11/17 09:40 98 21 01/11/17 08:00 97.5 85 18 135/63 (87) 94 01/11/17 08:00 96 Room Air 21 01/11/17 08:00 86 01/11/17 04:05 94 01/11/17 04:00 97.9 78 18 139/68 (91) 97 01/11/17 00:00 97.9 95 21 132/71 (91) 95 01/10/17 21:10 77 01/10/17 20:00 98.1 90 20 110/70 (83) 97 01/10/17 19:45 Room Air 01/10/17 16:20 97.4 100 19 130/75 (93) 96 Labs: Laboratory Tests Test 01/11/17 04:30 Nasal Screen MRSA (PCR) MRSA NOT DETECTED (NOT Result Diagram: 01/10/17 0900 (1) COPD (chronic obstructive pulmonary disease) Plan: IMPRESSION 1. COPD with acute exacerbation 2. Chronic left basilar effusion with loculation 3. Atelectasis left lower lobe with mucus plugging. 4. Hyponatremia. 5. Abnormal liver enzymes 6. Anemia and chronic disease. 7. Aortic Stenosis/AI 8. Soft tissue mass involving the left lung base with mass effect. 9. 4.4 cm ascending aortic aneurysm. 10. Deconditioned for surgery today left thoracoscopic exploration for loculated pleural effusion , possible thoracotomy decortication (2) Respiratory distress (3) Tobacco abuse (4) Physical deconditioning (5) Pleural effusion on left Plan: for left thoracoscopic exploration for loculated pleural effusion in am (6) Hyponatremia (7) Hypochloremia Problem Qualifiers (1) COPD (chronic obstructive pulmonary disease): Qualified Codes: J43.1 - Panlobular emphysema Alda Mcclain Jan 11, 2017 13:35
[2017-01-11] MEDS ORDERED: BUPIVACAINE HCL PF 0.5% 30 ML VIAL INFIL ONE (17:51)
[2017-01-11 18:25] LABS: BLOOD GAS BASE EXCESS 2.8 mmol/L (-2-2); BLOOD GAS CARBOXYHEMOGLOBIN 1.6 % (0-4); BLOOD GAS HCO3 27 mmol/L (22-26); BLOOD GAS METHEMOGLOBIN 1.2 % (0-2); BLOOD GAS O2 HGB SATURATION 97 % (90-100); BLOOD GAS OXYGEN CONTENT 11.2 Vol % (12.0-20.0); BLOOD GAS PCO2 43 mmHg (38-42); BLOOD GAS PO2 215 mmHg (61-120); BLOOD GAS TOTAL HGB 7.9 G/DL (12.0-16.0); CRITICAL VALUE NO; FIO2 60 %; STAT YES; TEMP CORR TO 98.6
[2017-01-11 19:13] LABS: APTT (PATIENT) 29.9 SEC (24.3-30.1); PROTHROMBIN TIME - PATIENT 11.1 SEC (9.8-11.6)
[2017-01-11] MEDS ORDERED: SODIUM CHLORIDE 0.9% FLUSH 5 ML FLUSH IV FLUSH PRN (19:30)
[2017-01-11] MEDS ORDERED: ONDANSETRON HCL 4 MG/2 ML VIAL IV PUSH PRN (19:30)
[2017-01-11] MEDS ORDERED: Post-op Orders (for Pharmacy) MISC OTHER ONE (19:30)
[2017-01-11] MEDS ORDERED: NALOXONE HCL 0.4 MG/ML AMP IV PUSH PRN (19:30)
[2017-01-11] MEDS ORDERED: MAGNESIUM HYDROXIDE SUSP 30 ML CUP PO PRN (19:30)
--- NOTE | 2017-01-11 19:32 | PD.OP ---
cc: Venessa Chung MD; Josey Recinos MD Operative Report Date of Surgery: Jan 11, 2017 Preoperative Diagnosis: (1) Pleural effusion on left Postoperative Diagnosis: Loculated left pleural effusion with pleural thickening. Procedure: Left thoracoscopic exploration, left thoracotomy for decortication, evacuation of complex loculated effusion, adhesiolysis Anesthesia: Dr. Black Surgeon: Josey Recinos Environmental Permitting Specialist(s): Erica Operation and Findings: After adequate general anesthesia the patient was placed in the right lateral decubitus position and the left chest was prepped and draped in usual manner. A small posterior port incision was performed and electrocautery was used to obtain hemostasis and carry the dissection down through the fascia. A 22G seeker needle was used initially posteriorly and serosanguious fluid was aspirated. A port was initially placed posteriorly followed by the camera. Visualization was somewhat difficult. Overall, ~600 ml of serosanguinous effusion was drained. A second anterior port was positioned at ~6th intercostal space. There was diffuse pleural thickening and copious fibrinous material evacuated from the pleural space. This was sent for cultures and pathology examination. The pleural space was copiously irrigated. The left lower lobe was trapped by the densely thickened pleura. Therefore, a formal decortication was performed by making a thoracotomy incision from the posterior port anteriorly and the lower lobe visceral pleura was removed from the underlying lung tissue using electrocautery. This was also sent to pathology for examination. After removing this pleura from the lower lobe, adhesions were lysed to mobilize the upper lobe as well. Two 32F right angle chest tube was positioned and secured with a 0-silk suture. The lung was ventilated and no significant air leaks were found. The ribs were reapproximated using interrupted #2 Vicryl suture. The latissimus dorsi was reapproximated using a 0 Vicryl suture. The subcutaneous tissue was approximated running 2-0 Vicryl suture and the skin was approximated using running 4-0 Monocryl subcuticular stitch. All sponge and history counts were correct at the close the procedure and the patient was transferred to the PACU in stable condition. Josey Recinos MD Jan 11, 2017 19:32
--- NOTE | 2017-01-11 19:35 | HHI.PR ---
Subjective Remarks Will go for surgery today. NO SOB .Walks with a walker. O2 sat 97 on RA Good output. . Objective Vital Signs Date Time Temp Pulse Resp B/P (MAP) Pulse Ox O2 Delivery O2 Flow Rate FiO2 01/11/17 12:00 97.6 75 18 130/70 (90) 92 01/11/17 09:40 98 21 01/11/17 08:00 97.5 85 18 135/63 (87) 94 01/11/17 08:00 96 Room Air 21 01/11/17 08:00 86 01/11/17 04:05 94 01/11/17 04:00 97.9 78 18 139/68 (91) 97 01/11/17 00:00 97.9 95 21 132/71 (91) 95 01/10/17 21:10 77 01/10/17 20:00 98.1 90 20 110/70 (83) 97 01/10/17 19:45 Room Air I/O 01/10/17 01/10/17 01/10/17 01/11/17 01/11/17 01/11/17 07:00 15:00 23:00 07:00 15:00 23:00 Intake Total 480 ml 760 ml 0 ml Output Total 600 ml Balance 480 ml 160 ml 0 ml Intake Oral 480 ml 760 ml 0 ml Output Urine Total 600 ml # Voids 1 2 # Bowel Movements 0 Result Diagram: 01/10/17 0900 Objective Remarks GENERAL: This is an averagely built middle-aged white female who is pale and not dyspneic. HEENT: Head normocephalic. Pupils are reactive and equal. Tongue moist. Throat is clear. Nasal mucosa dry. NECK: Supple. No bruits, thyroid enlargement or lymphadenopathy. CHEST: Distant breath sounds at the left lung base and occ crackles HEART: The heart sounds are irregular, S1-S2. No murmur. No S3. ABDOMEN: Soft and nontender. No organomegaly. Bowel sounds are active. EXTREMITIES: Edema 1+ with diminished peripheral pulses. Bilateral Foot deformity. NEUROLOGIC: Reflexes are 1+ with no gross motor deficits. SKIN: Dry and scaly. Assessment and Plan Assessment and Plan IMPRESSION 1. COPD with acute exacerbation 2. Chronic left basilar effusion with loculation 3. Atelectasis left lower lobe with mucus plugging. 4. Hyponatremia. 5. Abnormal liver enzymes 6. Anemia and chronic disease. Plan : 1. O2 2 L. prn 2. IS q2h at bedside 3. For Vats thoracotomy and Decortication 4. Duoneb nebs tid. 5. CBC,BMP,CXR in am 6. PT evaluation for ambulation. 7. Continue Lasix 20 mg daily. Venessa Chung MD Jan 11, 2017 19:35
[2017-01-11] MEDS ORDERED: DO NOT ADM ANY ANTICOAGULANT DRUGS PRN (19:55)
[2017-01-11] MEDS ORDERED: *morphine SULFATE 8 MG/ML PERIprocedure ONLY ONE ×2 (20:08→20:22)
[2017-01-11] MEDS ORDERED: *MEPERIDINE 25 MG INJ VIAL PERIprocedural Use ONLY ONE (20:22)
--- NOTE | 2017-01-11 20:24 | RADRPT ---
EXAM DATE/TIME: 01/11/2017 20:00 [facility] COMPARISON: CHEST SINGLE AP, January 06, 2017, 13:06. INDICATIONS : Post thoracotomy. MEDICAL HISTORY : Chronic obstructive pulmonary disease. SURGICAL HISTORY : None. ENCOUNTER: Initial ACUITY: 1 day PAIN SCORE: 0/10 LOCATION: Bilateral chest FINDINGS: A single portable frontal view the chest shows interval placement of 2 thoracostomy tubes on the left . One is subpulmonic in location and the other projects towards the upper hemithorax. The left pleura l effusion has decreased considerably in size. Volume loss is noted within the left hemithorax. Mild consolidation involving the left base. Right lung is hyperinflated and clear. Heart is mildly enlarge d. Right-sided central line noted. No pneumothorax. CONCLUSION: 1. 2 thoracostomy tubes on left without pneumothorax. 2. Volume loss involving the left hemithorax with left basilar consolidation. 3. Central line in good position without pneumothorax. Art Tate Jr., MD on January 11, 2017 at 20:20 Board Certified Radiologist. This report was verified electronically.
[2017-01-11] MEDS ORDERED: MORPHINE SULFATE 30 MG/30 ML PCA ONE (20:25)
[2017-01-11] MEDS: MORPHINE SULFATE 30 MG/30 ML PCA IV SCH (20:46)
[2017-01-11] MEDS: SODIUM CHLOR 0.9% 1000 ML INJ 1,000 ML IV SCH (20:57)
[2017-01-11] MEDS: SODIUM CHLORIDE 0.9% FLUSH 5 ML FLUSH IV FLUSH SCH (20:59)
[2017-01-11] MEDS: ACETAMINOPHEN 1000 MG/100 ML 100 ML IV SCH (21:00)
[2017-01-11] MEDS ORDERED: DOCUSATE CALCIUM 240 MG CAP PO SCH (21:00)
[2017-01-11] MEDS: PCA - TOTAL MG MORPHINE DELIVERED PER SHIFT SCH (23:34)
[2017-01-12] VITALS (18 sets, daily range): BP systolic 99–118; BP diastolic 51–69; PULSE 72–99; RESP 16–18; TEMP 97.4–98.3; O2SAT 93–100
[2017-01-12] MEDS: ACETAMINOPHEN 1000 MG/100 ML 100 ML IV SCH ×3 (03:12→19:24)
[2017-01-12 05:17] LABS: AUTOMATED NEUTROPHIL # 5.9 TH/MM3 (1.8-7.7); BASOPHIL % 0.3 % (0.0-2.0); EOSINOPHIL % 0.1 % (0.0-4.0); HEMATOCRIT 24.3 % (35.0-46.0); LYMPH % 11.2 % (9.0-44.0); LYMPHOCYTE # 0.8 TH/MM3 (1.0-4.8); MEAN CELL VOLUME 104.4 FL (80.0-100.0); MEAN CORPUSCULAR HEMOGLOBIN 35.5 PG (27.0-34.0); MONO % 11.1 % (0.0-8.0); NEUT % 77.3 % (16.0-70.0); PLATELET COUNT 89 TH/MM3 (150-450); RED BLOOD COUNT 2.33 MIL/MM3 (4.00-5.30); RED CELL DISTRIBUTION WIDTH 21.2 % (11.6-17.2); WHITE BLOOD COUNT 7.6 TH/MM3 (4.0-11.0)
[2017-01-12 05:28] LABS: HEMO FLAGS AUTO DIFF
[2017-01-12] MEDS: PCA - TOTAL MG MORPHINE DELIVERED PER SHIFT SCH ×3 (05:39→22:00)
[2017-01-12 05:41] LABS: POTASSIUM 3.4 MEQ/L (3.5-5.1)
--- NOTE | 2017-01-12 06:16 | RADRPT ---
EXAM DATE/TIME: 01/12/2017 04:41 [facility] COMPARISON: CHEST SINGLE AP, January 11, 2017, 20:00. INDICATIONS : Shortness of breath, possible pulmonary disease. MEDICAL HISTORY : Chronic obstructive pulmonary disease. SURGICAL HISTORY : Thoracotomy ENCOUNTER: Subsequent ACUITY: 2 days PAIN SCORE: 6/10 LOCATION: Left chest FINDINGS: The cardiac silhouette is enlarged in transverse diameter. There is left lower lobe atelectasis versu s pneumonia. 2 left chest tubes are present. There is no evidence of pneumothorax. The right lung is free of acute parenchymal opacity. CONCLUSION: 1. Cardiomegaly 2. Diffuse left-sided pneumonia. There has been no significant change when compared to the prior exam . Sterling Wolfe MD on January 12, 2017 at 6:13 Board Certified Radiologist. This report was verified electronically.
[2017-01-12 06:49] LABS: PLATELET ESTIMATE SMEAR LOW (NORMAL); PLATELET MORPHOLOGY NORMAL (NORMAL); SCAN/DIFF AUTO DIFF CONFIRMED
[2017-01-12] MEDS: FUROSEMIDE 20 MG TAB PO SCH (08:12)
[2017-01-12] MEDS: NIFEdipine 30 MG SUSTAINED RELEASE TAB PO SCH (08:12)
[2017-01-12] MEDS: predniSONE 10 MG TAB PO SCH (08:13)
[2017-01-12] MEDS: MORPHINE SULFATE 30 MG/30 ML PCA IV SCH (08:14)
[2017-01-12] MEDS ORDERED: POTASSIUM CHLORIDE 10 MEQ CONTROLLED RELEASE TAB PO ONE (08:45)
[2017-01-12] MEDS: POLYETHYLENE GLYCOL 17 GM PKG PO SCH (10:07)
[2017-01-12] MEDS: SODIUM CHLORIDE 0.9% FLUSH 5 ML FLUSH IV FLUSH SCH ×2 (10:08→20:13)
[2017-01-12] MEDS: POTASSIUM CHLORIDE 10 MEQ CONTROLLED RELEASE TAB PO SCH (10:10)
[2017-01-12] MEDS: RESP: ALBUTEROL 2.5 MG/3 ML NEB (SCH) NEB ×3 (10:15→20:23)
--- NOTE | 2017-01-12 13:56 | HHI.PR ---
Subjective Remarks f/u; left pleural effusion in no acute distress. pain seems to be controlled. chest tube in place. afebrile. Objective Vitals Vital Signs Date Time Temp Pulse Resp B/P (MAP) Pulse Ox O2 Delivery O2 Flow Rate FiO2 01/12/17 10:15 99 Nasal Cannula 2.00 01/12/17 08:14 16 01/12/17 07:30 100 Nasal Cannula 2.00 01/12/17 07:30 88 01/12/17 07:30 97.5 88 18 118/63 (81) 100 104/51 (68) 01/12/17 06:00 81 01/12/17 05:39 16 01/12/17 05:00 78 01/12/17 04:00 79 01/12/17 03:20 100 Nasal Cannula 2.00 01/12/17 03:20 97.4 95 16 110/69 (83) 100 108/58 (75) 01/12/17 03:00 77 01/12/17 02:00 78 01/12/17 01:00 76 01/12/17 00:00 72 01/11/17 23:34 16 01/11/17 23:00 72 01/11/17 23:00 97.4 83 16 119/66 (83) 100 114/57 (76) 01/11/17 23:00 100 Nasal Cannula 2.00 01/11/17 22:30 72 01/11/17 22:30 80 14 126/67 (86) 100 128/58 (81) 01/11/17 21:30 97.3 72 12 116/65 (82) 100 Nasal Cannula 2 127/60 (82) 01/11/17 21:26 97.3 77 15 127/59 100 01/11/17 21:15 77 20 114/67 (83) 100 Nasal Cannula 2 124/60 (81) 01/11/17 21:00 97.4 76 10 116/57 100 01/11/17 21:00 69 9 105/63 (77) 100 Nasal Cannula 3 117/56 (76) 01/11/17 20:46 8 01/11/17 20:45 69 8 108/61 (77) 100 Nasal Cannula 3 114/54 (74) 01/11/17 20:36 97.4 72 8 105/60 100 01/11/17 20:30 74 19 105/60 (75) 100 Nasal Cannula 3 111/54 (73) 01/11/17 20:15 79 35 106/57 (73) 100 Nasal Cannula 3 106/55 (72) 01/11/17 20:00 97 34 108/68 (81) 100 Nasal Cannula 3 113/64 (80) 01/11/17 19:52 97.4 103 24 117/72 (87) 91 Nasal Cannula 3 I/O 01/11/17 01/11/17 01/11/17 01/12/17 01/12/17 01/12/17 07:00 15:00 23:00 07:00 15:00 23:00 Intake Total 0 ml 2520 ml 490 ml Output Total 3110 ml 500 ml Balance 0 ml -590 ml -10 ml Intake Oral 0 ml 0 ml 200 ml IV Total 1800 ml 290 ml Packed Cells 400 ml Blood Product IV Normal Saline Flush 320 ml Output Urine Total 60 ml 200 ml Chest Tube Drainage Total 300 ml 300 ml Estimated Blood Loss 500 ml Other 2250 ml Bladder Scan Volume Amount 160 ml # Voids 2 # Bowel Movements 0 Result Diagram: 01/12/17 0450 01/12/17 0450 Imaging Last Impressions Chest X-Ray 01/12/17 0500 Signed Impressions: Service Date/Time: January 04:41 - CONCLUSION: 1. Cardiomegaly 2. Diffuse left-sided pneumonia. There has been no significant change when compared to the prior exam. Sterling Wolfe MD Chest CT 12/31/16 0000 Signed Impressions: Service Date/Time: Saturday, December 31, 2016 14:44 - CONCLUSION: 1. Interval placement of left-sided chest tube with slight decrease in the complex low-density fluid collection in the lower left hemithorax. 2. Volume loss remains in the left hemithorax with consolidation in the left infrahilar region 3. New small right pleural effusion and consolidation in the right posterior lower lobe 4. The previously noted fluid and debris in the left mainstem bronchus is no longer present. Kashif Garcia MD Chest Ultrasound 12/30/16 0000 Signed Impressions: Service Date/Time: Friday, December 30, 2016 09:59 - CONCLUSION: No focal collections of anechoic free fluid. Prominent amount of heterogeneous echotexture material surrounding the left lower chest. Art Willard MD Chest Tube Insertion 12/29/16 1224 Signed Impressions: Service Date/Time: December 13:22 - CONCLUSION: Uncomplicated CT-guided thoracentesis. David Mora MD Objective Remarks GENERAL: This is a well-nourished, well-developed patient, in no apparent distress. CARDIOVASCULAR: Regular rate and regular rhythm without murmurs, gallops, or rubs. RESPIRATORY: Clear to auscultation. Breath sounds equal bilaterally. No wheezes , rales, or rhonchi. chest tube in place. GASTROINTESTINAL: Abdomen soft, non-tender, nondistended. Normal, active bowel sounds MUSCULOSKELETAL: Extremities without clubbing, cyanosis, or edema. NEURO: Alert & Oriented x4 to person, place, time, situation. Moves all ext x4 Procedures CT guided thoracentesis with L chest tube placement 12/29 Left thoracoscopic exploration, left thoracotomy for decortication, evacuation of complex loculated effusion, adhesiolysis 01/11/17 Medications and IVs Current Medications Sodium Chloride (NS Flush) 2 ml UNSCH PRN IVF FLUSH AFTER USING IV ACCESS Last administered on 01/08/17 21:04; Start 12/29/16 at 10:15; Stop 01/10/17 at 17: 47; Status DC Methylprednisolone Sodium Succinate (SoluMEDROL INJ) 125 mg ONCE ONCE IV PUSH Last administered on 12/29/16 10:17; Start 12/29/16 at 10:15; Stop 12/29/16 at 10:16; Status DC Albuterol/ Ipratropium (Duoneb Neb) 1 ampule ONCE ONCE INH Last administered on 12/29/16 10:13; Start 12/29/16 at 10:15; Stop 12/29/16 at 10:16; Status DC Albuterol Sulfate (Albuterol Neb) 2.5 mg Q15M INH Last administered on 10:13; Start 12/29/16 at 10:15; Stop 12/29/16 at 10:31; Status DC Sodium Chloride 1,000 ml @ 125 mls/hr Q8H IV Last administered on 12/29/16 10:17; Start 12/29/16 at 10:15; Stop 12/29/16 at 11:35; Status DC Ondansetron HCl (Zofran Inj) 4 mg ONCE ONCE IV PUSH Last administered on 12/29 10:41; Start 12/29/16 at 10:45; Stop 12/29/16 at 10:46; Status DC Ceftriaxone Sodium 1000 mg/ Sodium Chloride 100 ml @ 200 mls/hr ONCE ONCE IV Last administered on 12/29/16 11:54; Start 12/29/16 at 11:15; Stop 12/29/16 at 11:44; Status DC Azithromycin 500 mg/Sodium Chloride 250 ml @ 250 mls/hr ONCE ONCE IV Last administered on 12/29/16 12:31; Start 12/29/16 at 11:15; Stop 12/29/16 at 12 :14; Status DC Pantoprazole Sodium (Protonix Inj) 40 mg DAILY IV PUSH Last administered on 08:54; Start 12/29/16 at 12:00; Stop 12/31/16 at 14:05; Status DC Albuterol/ Ipratropium (Duoneb Neb) 1 ampule Q4HR NEB INH Last administered on 01/02/17 07:58; Start 12/29/16 at 12:00; Stop 01/02/17 at 11:59; Status DC Albuterol/ Ipratropium (Duoneb Neb) 1 ampule Q2HR NEB PRN INH WHEEZING Last administered on 01/04/17 10:14; Start 12/29/16 at 11:30; Stop 01/11/17 at 20: 29; Status DC Miscellaneous Information 1 [id number] Last administered on 12/29/16 21:22; Start 12/29/16 at 11:30; Stop 01/07/17 at 23:35; Status DC Chlorhexidine Gluconate (Chlorhexidine 2% Cloth) Taper DAILY@04 TOP Last administered on 01/01/17 04:00; Start 12/30/16 at 04:00; Stop 01/07/17 at 23: 35; Status DC Chlorhexidine Gluconate (Chlorhexidine 2% Cloth) 3 pack UNSCH PRN TOP HYGIENIC CARE; Start 12/29/16 at 11:30; Stop 01/07/17 at 23:35; Status DC Senna/Docusate Sodium (Elvie-Colace) 1 tab BID PO Last administered on 08:44; Start 12/29/16 at 21:00; Stop 01/11/17 at 20:29; Status DC Magnesium Hydroxide (Milk Of Magnesia Liq) 30 ml Q12H PRN PO Mild constipation Last administered on 01/09/17 20:33; Start 12/29/16 at 11:30; Stop 01/11/17 at 20:29; Status DC Sennosides (Senokot) 17.2 mg Q12H PRN PO Moderate constipation Last administered on 01/10/17 17:10; Start 12/29/16 at 11:30 Bisacodyl (Dulcolax Supp) 10 mg DAILY PRN RECTAL SEVERE CONSITIPATION; Start 12/29/16 at 11:30 Lactulose (Lactulose Liq) 30 ml DAILY PRN PO SEVERE CONSITIPATION; Start 12/29 at 11:30; Status Cancel Sodium Chloride 1,000 ml @ 84 mls/hr [id number] IV Last administered on 17:26; Start 12/29/16 at 11:30; Stop 12/30/16 at 08:37; Status DC Potassium Chloride 100 ml @ 50 mls/hr Q2H PRN IV For Potassium 2.8 - 3.2 mEq/L ; Start 12/29/16 at 11:30; Stop 12/31/16 at 14:05; Status DC Potassium Chloride 100 ml @ 50 mls/hr Q2H PRN IV For Potassium 2.8 - 3.2 mEq/L ; Start 12/29/16 at 11:30; Stop 12/31/16 at 14:05; Status DC Potassium Bicarb/ Potassium Chloride (K-Lyte Cl Eff) 50 meq UNSCH PRN PO For Potassium 3.3 - 3.5 mEq/L; Start 12/29/16 at 11:30; Stop 12/31/16 at 14:05; Status DC Potassium Chloride 100 ml @ 25 mls/hr UNSCH PRN IV For Potassium 3.3 - 3.5 mEq /L; Start 12/29/16 at 11:30; Stop 12/31/16 at 14:05; Status DC Potassium Chloride 100 ml @ 50 mls/hr Q2H PRN IV For Potassium 3.3 - 3.5 mEq/L ; Start 12/29/16 at 11:30; Stop 12/31/16 at 14:05; Status DC Magnesium Sulfate 4 gm/Sodium Chloride 100 ml @ 50 mls/hr UNSCH PRN IV For Magnesium 0.9 - 1.1 mg/dL; Start 12/29/16 at 11:30; Stop 12/31/16 at 14:05; Status DC Magnesium Oxide (Mag-Ox) 800 mg UNSCH PRN PO For Magnesium 1.2 - 1.6 mg/dL; Start 12/29/16 at 11:30; Stop 12/31/16 at 14:05; Status DC Magnesium Sulfate 2 gm/Sodium Chloride 100 ml @ 50 mls/hr UNSCH PRN IV For Magnesium 1.2 - 1.6 mg/dL; Start 12/29/16 at 11:30; Stop 12/31/16 at 14:05; Status DC Potassium Phosphate (K-Phos) 2,000 mg Q4H PRN PO For Phosphorus < 2.5 mg/dL; Start 12/29/16 at 11:30; Stop 12/31/16 at 14:05; Status DC Sodium Phosphate 30 mmol/Sodium Chloride 250 ml @ 42 mls/hr UNSCH PRN IV For Phosphorus < 2.5 mg/dL; Start 12/29/16 at 11:30; Stop 12/31/16 at 14:05; Status DC Potassium Phosphate (K-Phos) 2,000 mg UNSCH PRN PO/TUBE SEE LABEL COMMENTS; Start 12/29/16 at 11:30; Stop 12/31/16 at 14:05; Status DC Potassium Phosphate 30 mmol/ Sodium Chloride 260 ml @ 42 mls/hr UNSCH PRN IV SEE LABEL COMMENTS Last administered on 12/30/16t 11:46; Start 12/29/16 at 11: 30; Stop 12/31/16 at 14:05; Status DC Dextrose (D50w (Vial) Inj) 50 ml UNSCH PRN IV PUSH HYPOGLYCEMIA-SEE COMMENTS; Start 12/29/16 at 11:30; Stop 01/07/17 at 23:34; Status DC Glucagon (Glucagon Inj) 1 mg UNSCH PRN OTHER HYPOGLYCEMIA-SEE COMMENTS; Start 12/29/16 at 11:30; Stop 01/07/17 at 23:34; Status DC Insulin Human Regular (NovoLIN R SUPPLEMENTAL SCALE) 1 Q6H SQ Last administered on 01/01/17 17:30; Start 12/29/16 at 11:30; Stop 01/07/17 at 23: 34; Status DC Ceftriaxone Sodium 1000 mg/ Sodium Chloride 100 ml @ 200 mls/hr Q24H IV Last administered on 01/03/17 12:20; Start 12/30/16 at 12:00; Stop 01/04/17 at 11: 59; Status DC Azithromycin 500 mg/Sodium Chloride 250 ml @ 250 mls/hr Q24H IV Last administered on 12/31/16 11:48; Start 12/30/16 at 13:00; Stop 12/31/16 at 15 :20; Status DC Methylprednisolone Sodium Succinate (SoluMEDROL INJ) 60 mg Q6HR IV PUSH Last administered on 12/30/16 12:31; Start 12/29/16 at 16:00; Stop 12/30/16 at 13 :03; Status DC Lidocaine/ Epinephrine (Xylocaine-Epi 1%-1:100,000 Inj) 20 ml STK-MED ONCE .ROUTE Last administered on 12/29/16 12:38; Start 12/29/16 at 12:38; Stop 12/29/16 at 12:39; Status DC Fentanyl Citrate (fentaNYL INJ) 100 mcg STK-MED ONCE .ROUTE Last administered on 12/29/16 12:47; Start 12/29/16 at 12:47; Stop 12/29/16 at 12:48; Status DC Midazolam HCl (Versed Inj) 2 mg STK-MED ONCE .ROUTE Last administered on 12:47; Start 12/29/16 at 12:47; Stop 12/29/16 at 12:48; Status DC Iohexol (Omnipaque 350 Inj) 69 ml STK-MED ONCE IVCONTRAST Last administered on 12/29/16 13:33; Start 12/29/16 at 13:33; Stop 12/29/16 at 13:34; Status DC Ephedrine Sulfate (ePHEDrine/NS 25 MG/5 ML SYR) 25 mg STK-MED ONCE .ROUTE ; Start 12/29/16 at 13:40; Stop 12/29/16 at 13:41; Status DC Acetaminophen (Tylenol) 650 mg Q6H PRN PO PAIN Last administered on 12/30/16 04:13; Start 12/30/16 at 04:15; Stop 01/02/17 at 11:16; Status DC Oxycodone/ Acetaminophen (Percocet 5-325 Mg) 1 tab ONCE ONCE PO Last administered on 12/30/16 09:39; Start 12/30/16 at 09:30; Stop 12/30/16 at 09 :31; Status DC Methylprednisolone Sodium Succinate (SoluMEDROL INJ) 40 mg Q6HR IV PUSH Last administered on 01/01/17 05:12; Start 12/30/16 at 18:00; Stop 01/01/17 at 11 :40; Status DC Morphine Sulfate (Morphine Inj) 1 mg ONCE ONCE IV PUSH Last administered on 15:06; Start 12/30/16 at 15:00; Stop 12/30/16 at 15:01; Status DC Acetaminophen (Tylenol) 650 mg Q6H PRN PO PAIN 1-2; Start 12/30/16 at 22:30 Morphine Sulfate (Morphine Inj) 1 mg Q4H PRN IV PAIN 5-10 Last administered on 12/31/16 11:12; Start 12/30/16 at 22:30; Stop 12/31/16 at 13:46; Status DC Morphine Sulfate (Morphine Inj) 2 mg Q4H PRN IV BREAKTHROUGH PAIN 6-10 Last administered on 01/11/17 13:33; Start 12/31/16 at 14:30; Stop 01/11/17 at 19: 27; Status DC Acetaminophen/ Hydrocodone Bitart ([place] 5-325 Mg) 1 tab Q6H PRN PO PAIN 3-5 Last administered on 01/02/17 05:18; Start 12/31/16 at 13:45; Stop 01/09/17 at 09:01; Status DC Acetaminophen/ Hydrocodone Bitart ([place] 5-325 Mg) 2 tab Q6H PRN PO PAIN 6-10 Last administered on 01/09/17 08:39; Start 12/31/16 at 13:45; Stop 01/09/17 at 09:01; Status DC Pantoprazole Sodium (Protonix) 40 mg DAILY PO Last administered on 01/11/17 08 :41; Start 01/01/17 at 09:00; Stop 01/11/17 at 20:29; Status DC Iohexol (Omnipaque 350 Inj) 70 ml STK-MED ONCE IVCONTRAST Last administered on 12/31/16 14:59; Start 12/31/16 at 14:59; Stop 12/31/16 at 15:00; Status DC Azithromycin 500 mg/Sodium Chloride 250 ml @ 250 mls/hr Q24H IV Last administered on 01/04/17 11:57; Start 01/02/17 at 13:00; Stop 01/04/17 at 14: 46; Status DC Methylprednisolone Sodium Succinate (SoluMEDROL INJ) 40 mg Q12HR IV PUSH Last administered on 01/03/17 07:37; Start 01/01/17 at 21:00; Stop 01/03/17 at 13 :51; Status DC Methylprednisolone Sodium Succinate (SoluMEDROL INJ) 40 mg DAILY IV PUSH Last administered on 01/05/17 08:15; Start 01/04/17 at 09:00; Stop 01/05/17 at 18:19 ; Status DC Nifedipine (Procardia Xl) 60 mg ONCE ONCE PO Last administered on 01/05/17 17 :49; Start 01/05/17 at 17:30; Stop 01/05/17 at 17:32; Status DC Nifedipine (Procardia Xl) 30 mg DAILY PO Last administered on 01/12/17 08:12; Start 01/06/17 at 09:00 Furosemide (Lasix) 20 mg DAILY PO Last administered on 01/12/17 08:12; Start 01/05/17 at 17:35 Prednisone (Deltasone) 10 mg DAILY PO Last administered on 01/12/17 08:13; Start 01/08/17 at 09:00 Acetaminophen/ Hydrocodone Bitart ([place] 5-325 Mg) 1 tab Q4H PRN PO PAIN 3-5; Start 01/09/17 at 09:00; Stop 01/11/17 at 19:27; Status DC Acetaminophen/ Hydrocodone Bitart ([place] 5-325 Mg) 2 tab Q4H PRN PO PAIN 6-10 Last administered on 01/11/17 08:47; Start 01/09/17 at 09:15; Stop 01/11/17 at 19:27; Status DC Lactulose (Lactulose Liq) 30 ml ONCE ONCE PO ; Start 01/10/17 at 13:00; Stop 01/10/17 at 13:19; Status DC Lactulose (Lactulose Liq) 30 ml QID PRN PO severe constipation Last administered on 01/11/17 08:42; Start 01/10/17 at 13:00 Simethicone (Phazyme Chew) 125 mg ONCE ONCE PO Last administered on 01/10/17 14:59; Start 01/10/17 at 13:30; Stop 01/10/17 at 13:31; Status DC Sodium Chloride (NS Flush) 2 ml BID IV FLUSH Last administered on 01/11/17 09: 00; Start 01/10/17 at 21:00; Stop 01/11/17 at 20:29; Status DC Sodium Chloride (NS Flush) 2 ml UNSCH PRN IV FLUSH FLUSH AFTER USING IV ACCESS ; Start 01/10/17 at 16:15; Stop 01/11/17 at 20:29; Status DC Cefazolin Sodium 500 mg/Sodium Chloride 505 ml @ 0 mls/hr SOLE CONFORMING MACHINE OPERATOR IRRIGATION ; Start 01/10/17 at 16:15; Stop 01/17/17 at 16:14 Cefazolin Sodium/ Dextrose 50 ml @ 150 mls/hr SOLE CONFORMING MACHINE OPERATOR IV Last administered on 01/11/17 16:17; Start 01/10/17 at 16:15; Stop 01/17/17 at 16:14 Chlorhexidine Gluconate (Hibiclens 4% Top Soln) 1 applic SOLE CONFORMING MACHINE OPERATOR TOPICAL Last administered on 01/11/17 08:42; Start 01/10/17 at 16:15; Stop 01/12/17 at 08:40 ; Status DC Dextrose (D50w (Vial) Inj) 50 ml UNSCH PRN IV PUSH HYPOGLYCEMIA-SEE COMMENTS; Start 01/10/17 at 16:15 Lactated Ringer's 1,000 ml @ 30 mls/hr Q24H PRN IV SEE LABEL COMMENTS Last administered on 01/11/17 14:53; Start 01/10/17 at 18:30; Stop 01/11/17 at 20:23 ; Status DC Sodium Chloride 500 ml @ 30 mls/hr [id number] PRN IV SEE LABEL COMMENTS; Start at 18:30; Stop 01/11/17 at 20:23; Status DC Metoprolol Tartrate (Lopressor) 25 mg SOLE CONFORMING MACHINE OPERATOR PRN PO SEE LABEL COMMENTS; Start 01/10/17 at 18:30; Stop 01/11/17 at 20:23; Status DC Povidone Iodine (Betadine 5% Antisepsis Kit) 1 applic SOLE CONFORMING MACHINE OPERATOR PRN EACH NARE SEE LABEL COMMENTS; Start 01/10/17 at 18:30; Stop 01/11/17 at 20:23; Status DC Chlorhexidine Gluconate (Chlorhexidine 2% Cloth) 3 pack SOLE CONFORMING MACHINE OPERATOR PRN TOPICAL SEE LABEL COMMENTS; Start 01/10/17 at 18:30; Stop 01/12/17 at 08:40; Status DC Insulin Human Regular (NovoLIN R INJ) See Protocol Table ... SOLE CONFORMING MACHINE OPERATOR PRN SQ SEE PROTOCOL TABLE; Start 01/10/17 at 18:30; Stop 01/11/17 at 20:23; Status DC Albuterol/ Ipratropium (Duoneb Neb) 1 ampule Q6HR NEB NEB Last administered on 01/11/17 09:40; Start 01/10/17 at 22:00; Stop 01/11/17 at 20:29; Status DC Bupivacaine HCl (Marcaine Pf 0.5% Inj) 30 ml ONCE ONCE INFIL Last administered on 01/11/17 17:51; Start 01/11/17 at 17:51; Stop 01/11/17 at 17:53 ; Status DC Albuterol Sulfate (Albuterol Neb) 2.5 mg Q6HR NEB NEB Last administered on 10:15; Start 01/11/17 at 22:00 Albuterol Sulfate (Albuterol Neb) 2.5 mg Q2HR NEB PRN NEB WHEEZING; Start 01/11 at 19:30 IV Flush (NS Flush) 2 ml BID IV FLUSH Last administered on 01/12/17 10:08; Start 01/11/17 at 21:00 IV Flush (NS Flush) 2 ml UNSCH PRN IV FLUSH FLUSH AFTER USING IV ACCESS; Start 01/11/17 at 19:30 Miscellaneous Information (Post-op Orders (for Pharmacy)) STAT ONCE OTHER ; Start 01/11/17 at 19:30; Stop 01/11/17 at 20:27; Status DC Pantoprazole Sodium (Protonix) 40 mg HS PO Last administered on 01/11/17 23:35 ; Start 01/11/17 at 21:00 Ondansetron HCl (Zofran Inj) 4 mg Q6H PRN IV PUSH NAUSEA OR VOMITING; Start at 19:30 Docusate Calcium (Surfak) 240 mg HS PO Last administered on 01/11/17 23:35; Start 01/11/17 at 21:00; Stop 01/12/17 at 08:40; Status DC Magnesium Hydroxide (Milk Of Magnesia Liq) 30 ml DAILY PRN PO MILD CONSTIPATION ; Start 01/11/17 at 19:30 Acetaminophen 100 ml @ 400 mls/hr Q6H IV Last administered on 01/12/17 08:12 ; Start 01/11/17 at 21:00; Stop 01/12/17 at 15:14 Naloxone HCl (Narcan Inj) 0.4 mg UNSCH PRN IV PUSH RESPIRATORY RATE LESS THAN 10; Start 01/11/17 at 19:30 Morphine Sulfate (Morphine 1 Mg/ ml MANAGER SAFE) 30 mg UNSCH IV Last administered on 08:14; Start 01/11/17 at 19:30 MANAGER SAFE Dosage Infused (Pha) 1 Q8HR .XX Last administered on 01/12/17 05:39; Start 01/11/17 at 22:00 Morphine Sulfate (*morphine INJ PERIprocedure ONLY) 8 mg STK-MED ONCE .ROUTE Last administered on 01/11/17 20:10; Start 01/11/17 at 20:08; Stop 01/12/17 at 08:40; Status DC Morphine Sulfate (*morphine INJ PERIprocedure ONLY) 8 mg STK-MED ONCE .ROUTE Last administered on 01/11/17 20:30; Start 01/11/17 at 20:22; Stop 01/12/17 at 08:40; Status DC Meperidine HCl (*DEMEROL INJ PERIprocedural ONLY) 25 mg STK-MED ONCE .ROUTE Last administered on 01/11/17 20:23; Start 01/11/17 at 20:22; Stop 01/12/17 at 08:40; Status DC Morphine Sulfate (Morphine 1 Mg/ ml MANAGER SAFE) 30 mg STK-MED ONCE .ROUTE ; Start 01/11 at 20:25; Stop 01/11/17 at 20:26; Status DC Sodium Chloride 1,000 ml @ 30 mls/hr Q24H IV Last administered on 01/11/17 20 :57; Start 01/11/17 at 21:00 Miscellaneous Information ALL NURSING DEPARTME... UNSCH PRN .XX SEE LABEL COMMENTS; Start 01/11/17 at 19:55; Stop 01/12/17 at 19:54 Polyethylene Glycol (Miralax) 17 gm DAILY PO Last administered on 01/12/17 10: 07; Start 01/12/17 at 09:00 Potassium Chloride (KCl) 30 meq ONCE ONCE PO Last administered on 01/12/17 10 :07; Start 01/12/17 at 08:45; Stop 01/12/17 at 08:46; Status DC Potassium Chloride (KCl) 10 meq DAILY PO Last administered on 01/12/17 10:10; Start 01/12/17 at 09:00 A/P Problem List: (1) Pleural effusion on left ICD Code: J90 - Pleural effusion, not elsewhere classified Status: Acute (2) Respiratory distress ICD Code: R06.00 - Dyspnea, unspecified Status: Resolved (3) Hyponatremia ICD Code: E87.1 - Hypo-osmolality and hyponatremia Status: Acute (4) COPD (chronic obstructive pulmonary disease) ICD Code: J44.9 - Chronic obstructive pulmonary disease, unspecified Status: Chronic (5) Tobacco abuse ICD Code: Z72.0 - Tobacco use Status: Chronic Assessment and Plan A/P - left pleural effusion s/p CT guided left-sided thoracentesis and CT placement by IR 12/29. s/p Left thoracoscopic exploration, left thoracotomy for decortication, evacuation of complex loculated effusion, adhesiolysis- 01/11/17. Continue with oxygen maintain sats above 92%. Bronchodilators, on Prednisone 10 mg daily - Dr. Juliet shipley (outpatient) Exudative effusion. Cytology neg for malignant cells. Fluid cx neg x 72hours. CT chest 12/29 : Either highly complex fluid or soft tissue mass involving the left lung base with mass effect. This measures 12.2 x 12.6 x 7.4 cm. 4.4 cm ascending aortic aneurysm. completed 5 days of ( Rocephin, Zithromax) -Echocardiogram from 12/30. Says ejection fraction within normal limits, however expect calculation skewed by regurgitation - on afterload reduction with nifedipine. on Lasix. Cardiology ff -Continue treatment for COPD exacerbation as above.Seen by cardiology Dr Bustamante. Patient refuses, any time of work up for /AI at this time. EF preserved. Thus continue medical management with diuresis , daily weight, low salt diet, BP control and aggressive medical management for CAD. Once patient decides to undergo further evaluation she can follow with Cardiology as an outpatient. -mild hypokalemia; replaced. anemia of chronic disease- will monitor. continue PT. Discharge Planning no benefit for rehab or HHC. needs aggressive PT. Problem Qualifiers (1) COPD (chronic obstructive pulmonary disease): Qualified Codes: J43.1 - Panlobular emphysema Jay Iyer MD Jan 12, 2017 13:56
--- NOTE | 2017-01-12 15:41 | PD.CAR.PN ---
CVT Progress Note Subjective/Hospital Course: 56-year-old white female with a history of COPD, chronic bronchitis who apparently was suffering from food poisoning. The patient states that she was unable to pass urine and became very weak, had lost weight with diarrhea, abdominal discomfort, dehydration and presented to ER for evaluation. She c/o 20 lb weight loss over the past [address] done showed evidence of a loculated mass-like infiltrate in the left lung base 12 x 12 cm and a left upper lobe lung nodule 7 mm. The patient was started on Solu-Medrol, IV antibiotics including Rocephin and Zithromax. Denies chest pains or abdominal pains or nausea or vomiting. She underwent chest tube placement in IR 12/29 with minimal drainage of this effusion.. Chest tube was removed. Repeat chest x- ray shows no change in the mod pleural effusion but does shows some mild patchy opacities in the right lung base. cardiology Dr Dianna perez pt TTE shows preserved EF and at least moderate /AI. present diagnosis : Respiratory Insufficiency, Left-sided consolidation , Exudative pleural effusion, COPD exacerbation, Urinary tract infection, x tobacco use Anemia, thrombocytopenia, Moderate aortic valve regurgitation, Moderate calcific aortic valve stenosis pleural fluid : exudative effusion. Cytology neg for malignant cells. Fluid cx neg CT chest 12/29 : Either highly complex fluid or soft tissue mass involving the left lung base with mass effect. This measures 12.2 x 12.6 x 7.4 cm. 4.4 cm ascending aortic aneurysm. pt is now agreeable for surgery : plan is for left thoracoscopic exploration for loculated pleural effusion , possible thoracotomy , decortication in am 01/11 on nasal cannula surgery: Left thoracoscopic exploration, left thoracotomy for decortication, evacuation of complex loculated effusion, adhesiolysis 01/12 pain controlled with [employer]CRIPTION [employer]IST morphine needs aggressive pulm toileting OOB, ambulate recheck UA / pleural fluid cultures and path pending Objective: GENERAL: SKIN: Warm and dry.incision intact left posterior chest wall / HEAD: Normocephalic. EYES: No scleral icterus. No injection or drainage. NECK: Supple, trachea midline. No JVD or lymphadenopathy. CARDIOVASCULAR: Regular rate and rhythm without murmurs, gallops, or rubs. RESPIRATORY: diminished left lower lobe chest tube to wall suction, no air leak / drained 600cc/ 12 hrs No accessory muscle use. GASTROINTESTINAL: Abdomen soft, non-tender, nondistended. MUSCULOSKELETAL: No cyanosis, or edema. BACK: Nontender without obvious deformity. No CVA tenderness. Vital Signs Date Time Temp Pulse Resp B/P (MAP) Pulse Ox O2 Delivery O2 Flow Rate FiO2 01/12/17 10:15 99 Nasal Cannula 2.00 01/12/17 08:14 16 01/12/17 07:30 100 Nasal Cannula 2.00 01/12/17 07:30 88 01/12/17 07:30 97.5 88 18 118/63 (81) 100 104/51 (68) 01/12/17 06:00 81 01/12/17 05:39 16 01/12/17 05:00 78 01/12/17 04:00 79 01/12/17 03:20 100 Nasal Cannula 2.00 01/12/17 03:20 97.4 95 16 110/69 (83) 100 108/58 (75) 01/12/17 03:00 77 01/12/17 02:00 78 01/12/17 01:00 76 01/12/17 00:00 72 01/11/17 23:34 16 01/11/17 23:00 72 01/11/17 23:00 97.4 83 16 119/66 (83) 100 114/57 (76) 01/11/17 23:00 100 Nasal Cannula 2.00 01/11/17 22:30 72 01/11/17 22:30 80 14 126/67 (86) 100 128/58 (81) 01/11/17 21:30 97.3 72 12 116/65 (82) 100 Nasal Cannula 2 127/60 (82) 01/11/17 21:26 97.3 77 15 127/59 100 01/11/17 21:15 77 20 114/67 (83) 100 Nasal Cannula 2 124/60 (81) 01/11/17 21:00 97.4 76 10 116/57 100 01/11/17 21:00 69 9 105/63 (77) 100 Nasal Cannula 3 117/56 (76) 01/11/17 20:46 8 01/11/17 20:45 69 8 108/61 (77) 100 Nasal Cannula 3 114/54 (74) 01/11/17 20:36 97.4 72 8 105/60 100 01/11/17 20:30 74 19 105/60 (75) 100 Nasal Cannula 3 111/54 (73) 01/11/17 20:15 79 35 106/57 (73) 100 Nasal Cannula 3 106/55 (72) 01/11/17 20:00 97 34 108/68 (81) 100 Nasal Cannula 3 113/64 (80) 01/11/17 19:52 97.4 103 24 117/72 (87) 91 Nasal Cannula 3 Labs: Laboratory Tests Test 01/12/17 04:50 White Blood Count 7.6 TH/MM3 (4.0-11.0) Red Blood Count 2.33 MIL/MM3 (4.00-5.30) Hemoglobin 8.3 GM/DL (11.6-15.3) Hematocrit 24.3 % (35.0-46.0) Mean Corpuscular Volume 104.4 FL (80.0-100.0) Mean Corpuscular Hemoglobin 35.5 PG (27.0-34.0) Mean Corpuscular Hemoglobin Concent 34.0 % (32.0-36.0) Red Cell Distribution Width 21.2 % (11.6-17.2) Platelet Count 89 TH/MM3 (150-450) Mean Platelet Volume 9.0 FL (7.0-11.0) Neutrophils (%) (Auto) 77.3 % (16.0-70.0) Lymphocytes (%) (Auto) 11.2 % (9.0-44.0) Monocytes (%) (Auto) 11.1 % (0.0-8.0) Eosinophils (%) (Auto) 0.1 % (0.0-4.0) Basophils (%) (Auto) 0.3 % (0.0-2.0) Neutrophils # (Auto) 5.9 TH/MM3 (1.8-7.7) Lymphocytes # (Auto) 0.8 TH/MM3 (1.0-4.8) Monocytes # (Auto) 0.8 TH/MM3 (0-0.9) Eosinophils # (Auto) 0.0 TH/MM3 (0-0.4) Basophils # (Auto) 0.0 TH/MM3 (0-0.2) CBC Comment AUTO DIFF Differential Comment AUTO DIFF CONFIRMED Platelet Estimate LOW (NORMAL) Platelet Morphology Comment NORMAL (NORMAL) Blood Urea Nitrogen 12 MG/DL (7-18) Creatinine 0.48 MG/DL (0.50-1.00) Random Glucose 90 MG/DL (74-106) Total Protein 4.3 GM/DL (6.4-8.2) Calcium Level 7.4 MG/DL (8.5-10.1) Sodium Level 138 MEQ/L (136-145) Potassium Level 3.4 MEQ/L (3.5-5.1) Chloride Level 102 MEQ/L (98-107) Carbon Dioxide Level 29.0 MEQ/L (21.0-32.0) Anion Gap 7 MEQ/L (5-15) Estimat Glomerular Filtration Rate 134 ML/MIN (>89) Protein Corrected Calcium 9.0 MG/DL (8.5-10.1) Result Diagram: 01/12/1744901/12/17449 Telemetry: NSR (1) COPD (chronic obstructive pulmonary disease) Plan: IMPRESSION 1. COPD with acute exacerbation 2. Chronic left basilar effusion with loculation 3. Atelectasis left lower lobe with mucus plugging. 4. Hyponatremia. 5. Abnormal liver enzymes 6. Anemia and chronic disease. 7. Aortic Stenosis/AI 8. Soft tissue mass involving the left lung base with mass effect. 9. 4.4 cm ascending aortic aneurysm. 10. Deconditioned s/p left thoracoscopic exploration for loculated pleural effusion , possible thoracotomy decortication pulm toileting pain control GI motility meds OOB/ ambulate (2) Tobacco abuse Plan: smoking cessation (3) Physical deconditioning Plan: pt (4) Pleural effusion on left Plan: for left thoracoscopic exploration for loculated pleural effusion in am (5) Hyponatremia (6) Hypochloremia Problem Qualifiers (1) COPD (chronic obstructive pulmonary disease): Qualified Codes: J43.1 - Panlobular emphysema Alda Mcclain Jan 12, 2017 15:41
[2017-01-12] MEDS: ceFAZolin 1,000 MG/NS 100 ML IV SCH ×2 (19:23)
[2017-01-12] MEDS: SODIUM CHLOR 0.9% 1000 ML INJ 1,000 ML IV SCH (20:13)
[2017-01-12] MEDS: PANTOPRAZOLE SOD 40 MG DELAYED RELEASE TAB PO SCH (20:13)
[2017-01-12 20:39] LABS: BLOOD, URINE TRACE (NEG); COMMENT (UR) CULTURE INDICATED; CULTURE IF INDICATED CULTURE INDICATED; GLUCOSE,URINE NEG (NEG); HYALINE CAST, URINE 20 /lpf (RARE); KETONE, URINE NEG (NEG); MUCUS URINE FEW /lpf (OCC); NITRITE,URINE NEG (NEG); PH, URINE 5.5 (5.0-8.5); SQUAMOUS EPITHELIAL CELL URINE 3 /hpf (0-5); URINE COLOR YELLOW (YELLW/STRAW)
--- NOTE | 2017-01-12 20:42 | HHI.PR ---
Subjective Remarks S/P thoracotomy and decortication . Has a chest tube in place. O2 sat 97 on 2 L No fever.C/O pain along chest wall. Objective Vital Signs Date Time Temp Pulse Resp B/P (MAP) Pulse Ox O2 Delivery O2 Flow Rate FiO2 01/12/17 16:23 93 Nasal Cannula 2.00 01/12/17 16:23 97.9 99 18 100/62 (75) 93 01/12/17 14:00 16 01/12/17 11:30 100 Nasal Cannula 2.00 01/12/17 11:30 98.0 98 18 99/69 (79) 97 01/12/17 10:15 99 Nasal Cannula 2.00 01/12/17 08:14 16 01/12/17 07:30 100 Nasal Cannula 2.00 01/12/17 07:30 88 01/12/17 07:30 97.5 88 18 118/63 (81) 100 104/51 (68) 01/12/17 06:00 81 01/12/17 05:39 16 01/12/17 05:00 78 01/12/17 04:00 79 01/12/17 03:20 100 Nasal Cannula 2.00 01/12/17 03:20 97.4 95 16 110/69 (83) 100 108/58 (75) 01/12/17 03:00 77 01/12/17 02:00 78 01/12/17 01:00 76 01/12/17 00:00 72 01/11/17 23:34 16 01/11/17 23:00 72 01/11/17 23:00 97.4 83 16 119/66 (83) 100 114/57 (76) 01/11/17 23:00 100 Nasal Cannula 2.00 01/11/17 22:30 72 01/11/17 22:30 80 14 126/67 (86) 100 128/58 (81) 01/11/17 21:30 97.3 72 12 116/65 (82) 100 Nasal Cannula 2 127/60 (82) 01/11/17 21:26 97.3 77 15 127/59 100 01/11/17 21:15 77 20 114/67 (83) 100 Nasal Cannula 2 124/60 (81) 01/11/17 21:00 97.4 76 10 116/57 100 01/11/17 21:00 69 9 105/63 (77) 100 Nasal Cannula 3 117/56 (76) 01/11/17 20:46 8 01/11/17 20:45 69 8 108/61 (77) 100 Nasal Cannula 3 114/54 (74) I/O 01/11/17 01/11/17 01/11/17 01/12/17 01/12/17 01/12/17 07:00 15:00 23:00 07:00 15:00 23:00 Intake Total 0 ml 2520 ml 490 ml 1609 ml Output Total 3110 ml 500 ml 390 ml Balance 0 ml -590 ml -10 ml 1219 ml Intake Oral 0 ml 0 ml 200 ml 1000 ml IV Total 1800 ml 290 ml 609 ml Packed Cells 400 ml Blood Product IV Normal Saline Flush 320 ml Output Urine Total 60 ml 200 ml 0 ml Chest Tube Drainage Total 300 ml 300 ml 390 ml Estimated Blood Loss 500 ml Other 2250 ml Bladder Scan Volume Amount 160 ml # Voids 2 # Bowel Movements 0 0 Result Diagram: 01/12/1744901/12/17449 Objective Remarks GENERAL: This is an averagely built middle-aged white female who is pale and dyspneic. HEENT: Head normocephalic. Pupils are reactive and equal. Tongue moist. Throat is clear. Nasal mucosa dry. NECK: Supple. No bruits, thyroid enlargement or lymphadenopathy. CHEST: Distant breath sounds at the left lung base and crackles left chest . HEART: The heart sounds are irregular, S1-S2. No murmur. No S3. ABDOMEN: Soft and nontender. No organomegaly. Bowel sounds are active. EXTREMITIES: Edema 1+ with diminished peripheral pulses. Bilateral Foot deformity. NEUROLOGIC: Reflexes are 1+ with no gross motor deficits. SKIN: Dry and scaly. Assessment and Plan Assessment and Plan IMPRESSION 1. COPD with acute exacerbation 2. S/p decortication left Chest 3. Atelectasis left lower lobe with mucus plugging. 4. Hyponatremia. 5. Abnormal liver enzymes 6. Anemia and chronic disease. Plan : 1. O2 2 L. 2. IS q2h at bedside 3. Add Rocephin 1 Gm IV daily 4. Duoneb nebs tid. 5. CBC,BMP,CXR in am 6. PT evaluation for ambulation. 7. Continue Lasix 20 mg daily. Venessa Chung MD Jan 12, 2017 20:42
[2017-01-12] MEDS: cefTRIAXone INJ 1,000 MG in SODIUM CHLORIDE 0.9% INJ 100 ML IV SCH (22:02)
[2017-01-13] VITALS (35 sets, daily range): BP systolic 89–119; BP diastolic 51–67; PULSE 65–126; RESP 16–18; TEMP 98.2–98.9; O2SAT 91–100
[2017-01-13] MEDS: ceFAZolin 1,000 MG/NS 100 ML IV SCH ×4 (01:24→08:04)
[2017-01-13] MEDS: MORPHINE SULFATE 30 MG/30 ML PCA IV SCH ×3 (01:25→22:02)
[2017-01-13] MEDS: RESP: ALBUTEROL 2.5 MG/3 ML NEB (SCH) NEB ×2 (04:35→07:08)
[2017-01-13] MEDS: PCA - TOTAL MG MORPHINE DELIVERED PER SHIFT SCH ×3 (06:00→22:00)
[2017-01-13] MEDS: FUROSEMIDE 20 MG TAB PO SCH (08:03)
[2017-01-13] MEDS: NIFEdipine 30 MG SUSTAINED RELEASE TAB PO SCH (08:03)
[2017-01-13] MEDS: predniSONE 10 MG TAB PO SCH (08:04)
[2017-01-13] MEDS: POTASSIUM CHLORIDE 10 MEQ CONTROLLED RELEASE TAB PO SCH (08:04)
[2017-01-13] MEDS: POLYETHYLENE GLYCOL 17 GM PKG PO SCH (08:05)
--- NOTE | 2017-01-13 09:32 | PD.CAR.PN ---
CVT Progress Note Subjective/Hospital Course: 56-year-old white female with a history of COPD, chronic bronchitis who apparently was suffering from food poisoning. The patient states that she was unable to pass urine and became very weak, had lost weight with diarrhea, abdominal discomfort, dehydration and presented to ER for evaluation. She c/o 20 lb weight loss over the past [address] done showed evidence of a loculated mass-like infiltrate in the left lung base 12 x 12 cm and a left upper lobe lung nodule 7 mm. The patient was started on Solu-Medrol, IV antibiotics including Rocephin and Zithromax. Denies chest pains or abdominal pains or nausea or vomiting. She underwent chest tube placement in IR 12/29 with minimal drainage of this effusion.. Chest tube was removed. Repeat chest x- ray shows no change in the mod pleural effusion but does shows some mild patchy opacities in the right lung base. cardiology Dr Dianna perez pt TTE shows preserved EF and at least moderate /AI. present diagnosis : Respiratory Insufficiency, Left-sided consolidation , Exudative pleural effusion, COPD exacerbation, Urinary tract infection, x tobacco use Anemia, thrombocytopenia, Moderate aortic valve regurgitation, Moderate calcific aortic valve stenosis pleural fluid : exudative effusion. Cytology neg for malignant cells. Fluid cx neg CT chest 12/29 : Either highly complex fluid or soft tissue mass involving the left lung base with mass effect. This measures 12.2 x 12.6 x 7.4 cm. 4.4 cm ascending aortic aneurysm. pt is now agreeable for surgery : plan is for left thoracoscopic exploration for loculated pleural effusion , possible thoracotomy , decortication in am 01/11 on nasal cannula surgery: Left thoracoscopic exploration, left thoracotomy for decortication, evacuation of complex loculated effusion, adhesiolysis 01/12 pain controlled with [employer]ER morphine needs aggressive pulm toileting OOB, ambulate recheck UA / pleural fluid cultures and path pending 01/13 chest tubes drained 130cc/ 12 hrs serous drainage / leave chest tube in for now CXR noted , from 01/12, mucus plugging, aggressive pulm toileting add ezpap and acapella now on Rocephin, will dc ancef, await on UA culture OOB, ambulate, Objective: GENERAL: SKIN: Warm and dry. incision intact left posterior chest wall HEAD: Normocephalic. EYES: No scleral icterus. No injection or drainage. NECK: Supple, trachea midline. No JVD or lymphadenopathy. CARDIOVASCULAR: Regular rate and rhythm without murmurs, gallops, or rubs. RESPIRATORY: diminished left lower lobe chest tube to wall suction , no air leak . No accessory muscle use. GASTROINTESTINAL: Abdomen soft, non-tender, nondistended. MUSCULOSKELETAL: No cyanosis, or edema. BACK: Nontender without obvious deformity. No CVA tenderness. Vital Signs Date Time Temp Pulse Resp B/P (MAP) Pulse Ox O2 Delivery O2 Flow Rate FiO2 01/13/17 07:10 95 21 01/13/17 06:00 94 01/13/17 06:00 16 01/13/17 05:00 92 01/13/17 04:00 90 01/13/17 03:00 98.4 92 18 112/61 (78) 93 01/13/17 03:00 93 Room Air 01/13/17 03:00 89 01/13/17 02:00 81 01/13/17 01:25 16 01/13/17 01:00 89 01/13/17 00:00 89 01/12/17 23:00 88 01/12/17 23:00 98 Room Air 01/12/17 23:00 98.3 87 18 112/63 (79) 98 01/12/17 22:00 85 01/12/17 22:00 16 01/12/17 21:00 94 01/12/17 20:00 90 01/12/17 19:20 97.9 90 18 107/62 (77) 93 Arterial Line 01/12/17 19:20 93 Room Air 01/12/17 19:00 98 01/12/17 16:23 93 Nasal Cannula 2.00 01/12/17 16:23 97.9 99 18 100/62 (75) 93 01/12/17 14:00 16 01/12/17 11:30 100 Nasal Cannula 2.00 01/12/17 11:30 98.0 98 18 99/69 (79) 97 01/12/17 10:15 99 Nasal Cannula 2.00 Result Diagram: 01/12/1744901/12/17449 (1) COPD (chronic obstructive pulmonary disease) Plan: IMPRESSION 1. COPD with acute exacerbation 2. Chronic left basilar effusion with loculation 3. Atelectasis left lower lobe with mucus plugging. 4. Hyponatremia. 5. Abnormal liver enzymes 6. Anemia and chronic disease. 7. Aortic Stenosis/AI 8. Soft tissue mass involving the left lung base with mass effect. 9. 4.4 cm ascending aortic aneurysm. 10. Deconditioned s/p left thoracoscopic exploration for loculated pleural effusion , possible thoracotomy decortication pulm toileting pain control GI motility meds OOB/ ambulate extra dose of lasix, low dose BB (2) Tobacco abuse Plan: smoking cessation (3) Physical deconditioning Plan: pt (4) Pleural effusion on left Plan: s/p left thoracoscopic exploration for loculated pleural effusion path pending cultures pending Problem Qualifiers (1) COPD (chronic obstructive pulmonary disease): Qualified Codes: J43.1 - Panlobular emphysema Alda Mcclain Jan 13, 2017 09:32
[2017-01-13 10:06] LABS: HEMATOCRIT 22.3 % (35.0-46.0); MEAN CORPUSCULAR HEMOGLOBIN 35.9 PG (27.0-34.0); MEAN CORPUSCULAR HGB CONC 33.8 % (32.0-36.0); PLATELET COUNT 73 TH/MM3 (150-450); RED CELL DISTRIBUTION WIDTH 20.7 % (11.6-17.2)
[2017-01-13 10:07] LABS: REVIEW FLAG FINAL
[2017-01-13 10:21] LABS: BICARBONATE 27.4 MEQ/L (21.0-32.0); POTASSIUM 3.8 MEQ/L (3.5-5.1)
--- NOTE | 2017-01-13 11:24 | HHI.PR ---
Subjective Remarks in no acute distress. still with some pain at the site of chest pain- still on PET RESORT CONCIERGE. had urinary retention and currently on intermittent catheterization. d/w the RN. Objective Vitals Vital Signs Date Time Temp Pulse Resp B/P (MAP) Pulse Ox O2 Delivery O2 Flow Rate FiO2 01/13/17 07:30 98.9 94 16 99/57 (71) 93 01/13/17 07:30 94 01/13/17 07:10 95 21 01/13/17 06:00 94 01/13/17 06:00 16 01/13/17 05:00 92 01/13/17 04:00 90 01/13/17 03:00 98.4 92 18 112/61 (78) 93 01/13/17 03:00 93 Room Air 01/13/17 03:00 89 01/13/17 02:00 81 01/13/17 01:25 16 01/13/17 01:00 89 01/13/17 00:00 89 01/12/17 23:00 88 01/12/17 23:00 98 Room Air 01/12/17 23:00 98.3 87 18 112/63 (79) 98 01/12/17 22:00 85 01/12/17 22:00 16 01/12/17 21:00 94 01/12/17 20:00 90 01/12/17 19:20 97.9 90 18 107/62 (77) 93 Arterial Line 01/12/17 19:20 93 Room Air 01/12/17 19:00 98 01/12/17 16:23 93 Nasal Cannula 2.00 01/12/17 16:23 97.9 99 18 100/62 (75) 93 01/12/17 14:00 16 01/12/17 11:30 100 Nasal Cannula 2.00 01/12/17 11:30 98.0 98 18 99/69 (79) 97 I/O 01/12/17 01/12/17 01/12/17 01/13/17 01/13/17 01/13/17 07:00 15:00 23:00 07:00 15:00 23:00 Intake Total 490 ml 1709 ml 829 ml Output Total 500 ml 390 ml 1330 ml Balance -10 ml 1319 ml -501 ml Intake Oral 200 ml 1000 ml 480 ml IV Total 290 ml 709 ml 349 ml Output Urine Total 200 ml 0 ml 1200 ml Chest Tube Drainage Total 300 ml 390 ml 130 ml Bladder Scan Volume Amount 160 ml 427 ml # Bowel Movements 0 0 0 Result Diagram: 01/13/1792401/13/17924 Imaging Last Impressions Chest X-Ray 01/12/17 0500 Signed Impressions: Service Date/Time: January 04:41 - CONCLUSION: 1. Cardiomegaly 2. Diffuse left-sided pneumonia. There has been no significant change when compared to the prior exam. Sterling Wolfe MD Chest CT 12/31/16 0000 Signed Impressions: Service Date/Time: Saturday, December 31, 2016 14:44 - CONCLUSION: 1. Interval placement of left-sided chest tube with slight decrease in the complex low-density fluid collection in the lower left hemithorax. 2. Volume loss remains in the left hemithorax with consolidation in the left infrahilar region 3. New small right pleural effusion and consolidation in the right posterior lower lobe 4. The previously noted fluid and debris in the left mainstem bronchus is no longer present. Kashif Garcia MD Chest Ultrasound 12/30/16 0000 Signed Impressions: Service Date/Time: Friday, December 30, 2016 09:59 - CONCLUSION: No focal collections of anechoic free fluid. Prominent amount of heterogeneous echotexture material surrounding the left lower chest. Art Willard MD Chest Tube Insertion 12/29/16 1224 Signed Impressions: Service Date/Time: December 13:22 - CONCLUSION: Uncomplicated CT-guided thoracentesis. David Mora MD Objective Remarks GENERAL: This is a well-nourished, well-developed patient, in no apparent distress. CARDIOVASCULAR: Regular rate and regular rhythm without murmurs, gallops, or rubs. RESPIRATORY: Clear to auscultation. Breath sounds equal bilaterally. No wheezes , rales, or rhonchi. chest tube in place. GASTROINTESTINAL: Abdomen soft, non-tender, nondistended. Normal, active bowel sounds MUSCULOSKELETAL: Extremities without clubbing, cyanosis, or edema. NEURO: Alert & Oriented x4 to person, place, time, situation. Moves all ext x4 Procedures CT guided thoracentesis with L chest tube placement 12/29 Left thoracoscopic exploration, left thoracotomy for decortication, evacuation of complex loculated effusion, adhesiolysis 01/11/17 Medications and IVs Current Medications Sodium Chloride (NS Flush) 2 ml UNSCH PRN IVF FLUSH AFTER USING IV ACCESS Last administered on 01/08/17 21:04; Start 12/29/16 at 10:15; Stop 01/10/17 at 17: 47; Status DC Methylprednisolone Sodium Succinate (SoluMEDROL INJ) 125 mg ONCE ONCE IV PUSH Last administered on 12/29/16 10:17; Start 12/29/16 at 10:15; Stop 12/29/16 at 10:16; Status DC Albuterol/ Ipratropium (Duoneb Neb) 1 ampule ONCE ONCE INH Last administered on 12/29/16 10:13; Start 12/29/16 at 10:15; Stop 12/29/16 at 10:16; Status DC Albuterol Sulfate (Albuterol Neb) 2.5 mg Q15M INH Last administered on 10:13; Start 12/29/16 at 10:15; Stop 12/29/16 at 10:31; Status DC Sodium Chloride 1,000 ml @ 125 mls/hr Q8H IV Last administered on 12/29/16 10:17; Start 12/29/16 at 10:15; Stop 12/29/16 at 11:35; Status DC Ondansetron HCl (Zofran Inj) 4 mg ONCE ONCE IV PUSH Last administered on 12/29 10:41; Start 12/29/16 at 10:45; Stop 12/29/16 at 10:46; Status DC Ceftriaxone Sodium 1000 mg/ Sodium Chloride 100 ml @ 200 mls/hr ONCE ONCE IV Last administered on 12/29/16 11:54; Start 12/29/16 at 11:15; Stop 12/29/16 at 11:44; Status DC Azithromycin 500 mg/Sodium Chloride 250 ml @ 250 mls/hr ONCE ONCE IV Last administered on 12/29/16 12:31; Start 12/29/16 at 11:15; Stop 12/29/16 at 12 :14; Status DC Pantoprazole Sodium (Protonix Inj) 40 mg DAILY IV PUSH Last administered on 10/ 28/17at 08:54; Start 12/29/16 at 12:00; Stop 12/31/16 at 14:05; Status DC Albuterol/ Ipratropium (Duoneb Neb) 1 ampule Q4HR NEB INH Last administered on 01/02/17 07:58; Start 12/29/16 at 12:00; Stop 01/02/17 at 11:59; Status DC Albuterol/ Ipratropium (Duoneb Neb) 1 ampule Q2HR NEB PRN INH WHEEZING Last administered on 01/04/17 10:14; Start 12/29/16 at 11:30; Stop 01/11/17 at 20: 29; Status DC Miscellaneous Information 1 [id number] Last administered on 12/29/16 21:22; Start 12/29/16 at 11:30; Stop 01/07/17 at 23:35; Status DC Chlorhexidine Gluconate (Chlorhexidine 2% Cloth) Taper DAILY@04 TOP Last administered on 01/01/17 04:00; Start 12/30/16 at 04:00; Stop 01/07/17 at 23: 35; Status DC Chlorhexidine Gluconate (Chlorhexidine 2% Cloth) 3 pack UNSCH PRN TOP HYGIENIC CARE; Start 12/29/16 at 11:30; Stop 01/07/17 at 23:35; Status DC Senna/Docusate Sodium (Elvie-Colace) 1 tab BID PO Last administered on 08:44; Start 12/29/16 at 21:00; Stop 01/11/17 at 20:29; Status DC Magnesium Hydroxide (Milk Of Magnesia Liq) 30 ml Q12H PRN PO Mild constipation Last administered on 01/09/17 20:33; Start 12/29/16 at 11:30; Stop 01/11/17 at 20:29; Status DC Sennosides (Senokot) 17.2 mg Q12H PRN PO Moderate constipation Last administered on 01/10/17 17:10; Start 12/29/16 at 11:30 Bisacodyl (Dulcolax Supp) 10 mg DAILY PRN RECTAL SEVERE CONSITIPATION; Start 12/29/16 at 11:30 Lactulose (Lactulose Liq) 30 ml DAILY PRN PO SEVERE CONSITIPATION; Start 12/29 at 11:30; Status Cancel Sodium Chloride 1,000 ml @ 84 mls/hr [id number] IV Last administered on t 17:26; Start 12/29/16 at 11:30; Stop 12/30/16 at 08:37; Status DC Potassium Chloride 100 ml @ 50 mls/hr Q2H PRN IV For Potassium 2.8 - 3.2 mEq/L ; Start 12/29/16 at 11:30; Stop 12/31/16 at 14:05; Status DC Potassium Chloride 100 ml @ 50 mls/hr Q2H PRN IV For Potassium 2.8 - 3.2 mEq/L ; Start 12/29/16 at 11:30; Stop 12/31/16 at 14:05; Status DC Potassium Bicarb/ Potassium Chloride (K-Lyte Cl Eff) 50 meq UNSCH PRN PO For Potassium 3.3 - 3.5 mEq/L; Start 12/29/16 at 11:30; Stop 12/31/16 at 14:05; Status DC Potassium Chloride 100 ml @ 25 mls/hr UNSCH PRN IV For Potassium 3.3 - 3.5 mEq /L; Start 12/29/16 at 11:30; Stop 12/31/16 at 14:05; Status DC Potassium Chloride 100 ml @ 50 mls/hr Q2H PRN IV For Potassium 3.3 - 3.5 mEq/L ; Start 12/29/16 at 11:30; Stop 12/31/16 at 14:05; Status DC Magnesium Sulfate 4 gm/Sodium Chloride 100 ml @ 50 mls/hr UNSCH PRN IV For Magnesium 0.9 - 1.1 mg/dL; Start 12/29/16 at 11:30; Stop 12/31/16 at 14:05; Status DC Magnesium Oxide (Mag-Ox) 800 mg UNSCH PRN PO For Magnesium 1.2 - 1.6 mg/dL; Start 12/29/16 at 11:30; Stop 12/31/16 at 14:05; Status DC Magnesium Sulfate 2 gm/Sodium Chloride 100 ml @ 50 mls/hr UNSCH PRN IV For Magnesium 1.2 - 1.6 mg/dL; Start 12/29/16 at 11:30; Stop 12/31/16 at 14:05; Status DC Potassium Phosphate (K-Phos) 2,000 mg Q4H PRN PO For Phosphorus < 2.5 mg/dL; Start 12/29/16 at 11:30; Stop 12/31/16 at 14:05; Status DC Sodium Phosphate 30 mmol/Sodium Chloride 250 ml @ 42 mls/hr UNSCH PRN IV For Phosphorus < 2.5 mg/dL; Start 12/29/16 at 11:30; Stop 12/31/16 at 14:05; Status DC Potassium Phosphate (K-Phos) 2,000 mg UNSCH PRN PO/TUBE SEE LABEL COMMENTS; Start 12/29/16 at 11:30; Stop 12/31/16 at 14:05; Status DC Potassium Phosphate 30 mmol/ Sodium Chloride 260 ml @ 42 mls/hr UNSCH PRN IV SEE LABEL COMMENTS Last administered on 12/30/16 11:46; Start 12/29/16 at 11: 30; Stop 12/31/16 at 14:05; Status DC Dextrose (D50w (Vial) Inj) 50 ml UNSCH PRN IV PUSH HYPOGLYCEMIA-SEE COMMENTS; Start 12/29/16 at 11:30; Stop 01/07/17 at 23:34; Status DC Glucagon (Glucagon Inj) 1 mg UNSCH PRN OTHER HYPOGLYCEMIA-SEE COMMENTS; Start 12/29/16 at 11:30; Stop 01/07/17 at 23:34; Status DC Insulin Human Regular (NovoLIN R SUPPLEMENTAL SCALE) 1 Q6H SQ Last administered on 01/01/17 17:30; Start 12/29/16 at 11:30; Stop 01/07/17 at 23: 34; Status DC Ceftriaxone Sodium 1000 mg/ Sodium Chloride 100 ml @ 200 mls/hr Q24H IV Last administered on 01/03/17 12:20; Start 12/30/16 at 12:00; Stop 01/04/17 at 11: 59; Status DC Azithromycin 500 mg/Sodium Chloride 250 ml @ 250 mls/hr Q24H IV Last administered on 12/31/16 11:48; Start 12/30/16 at 13:00; Stop 12/31/16 at 15 :20; Status DC Methylprednisolone Sodium Succinate (SoluMEDROL INJ) 60 mg Q6HR IV PUSH Last administered on 12/30/16 12:31; Start 12/29/16 at 16:00; Stop 12/30/16 at 13 :03; Status DC Lidocaine/ Epinephrine (Xylocaine-Epi 1%-1:100,000 Inj) 20 ml STK-MED ONCE .ROUTE Last administered on 12/29/16 12:38; Start 12/29/16 at 12:38; Stop 12/29/16 at 12:39; Status DC Fentanyl Citrate (fentaNYL INJ) 100 mcg STK-MED ONCE .ROUTE Last administered on 12/29/16 12:47; Start 12/29/16 at 12:47; Stop 12/29/16 at 12:48; Status DC Midazolam HCl (Versed Inj) 2 mg STK-MED ONCE .ROUTE Last administered on 12:47; Start 12/29/16 at 12:47; Stop 12/29/16 at 12:48; Status DC Iohexol (Omnipaque 350 Inj) 69 ml STK-MED ONCE IVCONTRAST Last administered on 12/29/16 13:33; Start 12/29/16 at 13:33; Stop 12/29/16 at 13:34; Status DC Ephedrine Sulfate (ePHEDrine/NS 25 MG/5 ML SYR) 25 mg STK-MED ONCE .ROUTE ; Start 12/29/16 at 13:40; Stop 12/29/16 at 13:41; Status DC Acetaminophen (Tylenol) 650 mg Q6H PRN PO PAIN Last administered on 12/30/16 04:13; Start 12/30/16 at 04:15; Stop 01/02/17 at 11:16; Status DC Oxycodone/ Acetaminophen (Percocet 5-325 Mg) 1 tab ONCE ONCE PO Last administered on 12/30/16 09:39; Start 12/30/16 at 09:30; Stop 12/30/16 at 09 :31; Status DC Methylprednisolone Sodium Succinate (SoluMEDROL INJ) 40 mg Q6HR IV PUSH Last administered on 01/01/17 05:12; Start 12/30/16 at 18:00; Stop 01/01/17 at 11 :40; Status DC Morphine Sulfate (Morphine Inj) 1 mg ONCE ONCE IV PUSH Last administered on 15:06; Start 12/30/16 at 15:00; Stop 12/30/16 at 15:01; Status DC Acetaminophen (Tylenol) 650 mg Q6H PRN PO PAIN 1-2; Start 12/30/16 at 22:30 Morphine Sulfate (Morphine Inj) 1 mg Q4H PRN IV PAIN 5-10 Last administered on 12/31/16 11:12; Start 12/30/16 at 22:30; Stop 12/31/16 at 13:46; Status DC Morphine Sulfate (Morphine Inj) 2 mg Q4H PRN IV BREAKTHROUGH PAIN 6-10 Last administered on 01/11/17 13:33; Start 12/31/16 at 14:30; Stop 01/11/17 at 19: 27; Status DC Acetaminophen/ Hydrocodone Bitart (Helper 5-325 Mg) 1 tab Q6H PRN PO PAIN 3-5 Last administered on 01/02/17 05:18; Start 12/31/16 at 13:45; Stop 01/09/17 at 09:01; Status DC Acetaminophen/ Hydrocodone Bitart (Helper 5-325 Mg) 2 tab Q6H PRN PO PAIN 6-10 Last administered on 01/09/17 08:39; Start 12/31/16 at 13:45; Stop 01/09/17 at 09:01; Status DC Pantoprazole Sodium (Protonix) 40 mg DAILY PO Last administered on 01/11/17 08 :41; Start 01/01/17 at 09:00; Stop 01/11/17 at 20:29; Status DC Iohexol (Omnipaque 350 Inj) 70 ml STK-MED ONCE IVCONTRAST Last administered on 12/31/16 14:59; Start 12/31/16 at 14:59; Stop 12/31/16 at 15:00; Status DC Azithromycin 500 mg/Sodium Chloride 250 ml @ 250 mls/hr Q24H IV Last administered on 01/04/17 11:57; Start 01/02/17 at 13:00; Stop 01/04/17 at 14: 46; Status DC Methylprednisolone Sodium Succinate (SoluMEDROL INJ) 40 mg Q12HR IV PUSH Last administered on 01/03/17 07:37; Start 01/01/17 at 21:00; Stop 01/03/17 at 13 :51; Status DC Methylprednisolone Sodium Succinate (SoluMEDROL INJ) 40 mg DAILY IV PUSH Last administered on 01/05/17 08:15; Start 01/04/17 at 09:00; Stop 01/05/17 at 18:19 ; Status DC Nifedipine (Procardia Xl) 60 mg ONCE ONCE PO Last administered on 01/05/17 17 :49; Start 01/05/17 at 17:30; Stop 01/05/17 at 17:32; Status DC Nifedipine (Procardia Xl) 30 mg DAILY PO Last administered on 01/13/17 08:03 ; Start 01/06/17 at 09:00 Furosemide (Lasix) 20 mg DAILY PO Last administered on 01/13/17 08:03; Start 01/05/17 at 17:35 Prednisone (Deltasone) 10 mg DAILY PO Last administered on 01/13/17 08:04; Start 01/08/17 at 09:00 Acetaminophen/ Hydrocodone Bitart (Helper 5-325 Mg) 1 tab Q4H PRN PO PAIN 3-5; Start 01/09/17 at 09:00; Stop 01/11/17 at 19:27; Status DC Acetaminophen/ Hydrocodone Bitart (Helper 5-325 Mg) 2 tab Q4H PRN PO PAIN 6-10 Last administered on 01/11/17 08:47; Start 01/09/17 at 09:15; Stop 01/11/17 at 19:27; Status DC Lactulose (Lactulose Liq) 30 ml ONCE ONCE PO ; Start 01/10/17 at 13:00; Stop 01/10/17 at 13:19; Status DC Lactulose (Lactulose Liq) 30 ml QID PRN PO severe constipation Last administered on 01/11/17 08:42; Start 01/10/17 at 13:00 Simethicone (Phazyme Chew) 125 mg ONCE ONCE PO Last administered on 01/10/17 14:59; Start 01/10/17 at 13:30; Stop 01/10/17 at 13:31; Status DC Sodium Chloride (NS Flush) 2 ml BID IV FLUSH Last administered on 01/11/17 09: 00; Start 01/10/17 at 21:00; Stop 01/11/17 at 20:29; Status DC Sodium Chloride (NS Flush) 2 ml UNSCH PRN IV FLUSH FLUSH AFTER USING IV ACCESS ; Start 01/10/17 at 16:15; Stop 01/11/17 at 20:29; Status DC Cefazolin Sodium 500 mg/Sodium Chloride 505 ml @ 0 mls/hr FORESTRY FIRE AIDE IRRIGATION ; Start 01/10/17 at 16:15; Stop 01/17/17 at 16:14 Cefazolin Sodium/ Dextrose 50 ml @ 150 mls/hr FORESTRY FIRE AIDE IV Last administered on 01/11/17 16:17; Start 01/10/17 at 16:15; Stop 01/17/17 at 16:14 Chlorhexidine Gluconate (Hibiclens 4% Top Soln) 1 applic FORESTRY FIRE AIDE TOPICAL Last administered on 01/11/17 08:42; Start 01/10/17 at 16:15; Stop 01/12/17 at 08:40 ; Status DC Dextrose (D50w (Vial) Inj) 50 ml UNSCH PRN IV PUSH HYPOGLYCEMIA-SEE COMMENTS; Start 01/10/17 at 16:15 Lactated Ringer's 1,000 ml @ 30 mls/hr Q24H PRN IV SEE LABEL COMMENTS Last administered on 01/11/17 14:53; Start 01/10/17 at 18:30; Stop 01/11/17 at 20:23 ; Status DC Sodium Chloride 500 ml @ 30 mls/hr [id number] PRN IV SEE LABEL COMMENTS; Start at 18:30; Stop 01/11/17 at 20:23; Status DC Metoprolol Tartrate (Lopressor) 25 mg FORESTRY FIRE AIDE PRN PO SEE LABEL COMMENTS; Start 01/10/17 at 18:30; Stop 01/11/17 at 20:23; Status DC Povidone Iodine (Betadine 5% Antisepsis Kit) 1 applic FORESTRY FIRE AIDE PRN EACH NARE SEE LABEL COMMENTS; Start 01/10/17 at 18:30; Stop 01/11/17 at 20:23; Status DC Chlorhexidine Gluconate (Chlorhexidine 2% Cloth) 3 pack FORESTRY FIRE AIDE PRN TOPICAL SEE LABEL COMMENTS; Start 01/10/17 at 18:30; Stop 01/12/17 at 08:40; Status DC Insulin Human Regular (NovoLIN R INJ) See Protocol Table ... FORESTRY FIRE AIDE PRN SQ SEE PROTOCOL TABLE; Start 01/10/17 at 18:30; Stop 01/11/17 at 20:23; Status DC Albuterol/ Ipratropium (Duoneb Neb) 1 ampule Q6HR NEB NEB Last administered on 01/11/17 09:40; Start 01/10/17 at 22:00; Stop 01/11/17 at 20:29; Status DC Bupivacaine HCl (Marcaine Pf 0.5% Inj) 30 ml ONCE ONCE INFIL Last administered on 01/11/17 17:51; Start 01/11/17 at 17:51; Stop 01/11/17 at 17:53 ; Status DC Albuterol Sulfate (Albuterol Neb) 2.5 mg Q6HR NEB NEB Last administered on 07:08; Start 01/11/17 at 22:00 Albuterol Sulfate (Albuterol Neb) 2.5 mg Q2HR NEB PRN NEB WHEEZING; Start 01/11 at 19:30 IV Flush (NS Flush) 2 ml BID IV FLUSH Last administered on 01/12/17 20:13; Start 01/11/17 at 21:00 IV Flush (NS Flush) 2 ml UNSCH PRN IV FLUSH FLUSH AFTER USING IV ACCESS; Start 01/11/17 at 19:30 Miscellaneous Information (Post-op Orders (for Pharmacy)) STAT ONCE OTHER ; Start 01/11/17 at 19:30; Stop 01/11/17 at 20:27; Status DC Pantoprazole Sodium (Protonix) 40 mg HS PO Last administered on 01/12/17 20:13 ; Start 01/11/17 at 21:00 Ondansetron HCl (Zofran Inj) 4 mg Q6H PRN IV PUSH NAUSEA OR VOMITING; Start at 19:30 Docusate Calcium (Surfak) 240 mg HS PO Last administered on 01/11/17 23:35; Start 01/11/17 at 21:00; Stop 01/12/17 at 08:40; Status DC Magnesium Hydroxide (Milk Of Magnesia Liq) 30 ml DAILY PRN PO MILD CONSTIPATION ; Start 01/11/17 at 19:30 Acetaminophen 100 ml @ 400 mls/hr Q6H IV Last administered on 01/12/17 19:24 ; Start 01/11/17 at 21:00; Stop 01/12/17 at 15:14; Status DC Naloxone HCl (Narcan Inj) 0.4 mg UNSCH PRN IV PUSH RESPIRATORY RATE LESS THAN 10; Start 01/11/17 at 19:30 Morphine Sulfate (Morphine 1 Mg/ ml PET RESORT CONCIERGE) 30 mg UNSCH IV Last administered on 01:25; Start 01/11/17 at 19:30 PET RESORT CONCIERGE Dosage Infused (Pha) 1 Q8HR .XX Last administered on 01/13/17 06:00; Start 01/11/17 at 22:00 Morphine Sulfate (*morphine INJ PERIprocedure ONLY) 8 mg STK-MED ONCE .ROUTE Last administered on 01/11/17 20:10; Start 01/11/17 at 20:08; Stop 01/12/17 at 08:40; Status DC Morphine Sulfate (*morphine INJ PERIprocedure ONLY) 8 mg STK-MED ONCE .ROUTE Last administered on 01/11/17 20:30; Start 01/11/17 at 20:22; Stop 01/12/17 at 08:40; Status DC Meperidine HCl (*DEMEROL INJ PERIprocedural ONLY) 25 mg STK-MED ONCE .ROUTE Last administered on 01/11/17 20:23; Start 01/11/17 at 20:22; Stop 01/12/17 at 08:40; Status DC Morphine Sulfate (Morphine 1 Mg/ ml PET RESORT CONCIERGE) 30 mg STK-MED ONCE .ROUTE ; Start 01/11 at 20:25; Stop 01/11/17 at 20:26; Status DC Sodium Chloride 1,000 ml @ 30 mls/hr Q24H IV Last administered on 01/12/17 20 :13; Start 01/11/17 at 21:00 Miscellaneous Information ALL NURSING DEPARTME... UNSCH PRN .XX SEE LABEL COMMENTS; Start 01/11/17 at 19:55; Stop 01/12/17 at 19:54; Status DC Polyethylene Glycol (Miralax) 17 gm DAILY PO Last administered on 01/13/17 08 :05; Start 01/12/17 at 09:00 Potassium Chloride (KCl) 30 meq ONCE ONCE PO Last administered on 01/12/17 10 :07; Start 01/12/17 at 08:45; Stop 01/12/17 at 08:46; Status DC Potassium Chloride (KCl) 10 meq DAILY PO Last administered on 01/13/17 08:04 ; Start 01/12/17 at 09:00 Cefazolin Sodium 1000 mg/Sodium Chloride 100 ml @ 200 mls/hr Q8H IV ; Start at 15:45; Stop 01/12/17 at 15:45; Status DC Cefazolin Sodium 1000 mg/Sodium Chloride 100 ml @ 200 mls/hr Q8H IV Last administered on 01/13/17 08:04; Start 01/12/17 at 16:00; Stop 01/13/17 at 08: 19; Status DC Ceftriaxone Sodium 1000 mg/ Sodium Chloride 100 ml @ 200 mls/hr Q24H IV Last administered on 01/12/17 22:02; Start 01/12/17 at 23:00 Furosemide (Lasix Inj) 20 mg ONCE ONCE IV PUSH ; Start 01/13/17 at 14:00; Stop 01/13/17 at 14:01 Potassium Chloride (KCl) 20 meq ONCE ONCE PO ; Start 01/13/17 at 14:00; Stop 01/13/17 at 14:01 A/P Problem List: (1) Pleural effusion on left ICD Code: J90 - Pleural effusion, not elsewhere classified Status: Acute (2) Respiratory distress ICD Code: R06.00 - Dyspnea, unspecified Status: Resolved (3) Hyponatremia ICD Code: E87.1 - Hypo-osmolality and hyponatremia Status: Acute (4) COPD (chronic obstructive pulmonary disease) ICD Code: J44.9 - Chronic obstructive pulmonary disease, unspecified Status: Chronic (5) Tobacco abuse ICD Code: Z72.0 - Tobacco use Status: Chronic Assessment and Plan A/P - left pleural effusion s/p CT guided left-sided thoracentesis and CT placement by IR 12/29. s/p Left thoracoscopic exploration, left thoracotomy for decortication, evacuation of complex loculated effusion, adhesiolysis- 01/11/17. Continue with oxygen maintain sats above 92%. Bronchodilators, on Prednisone 10 mg daily - Dr. Juliet montoya. Exudative effusion. Cytology neg for malignant cells. Fluid cx neg x 72hours. CT chest 12/29 : Either highly complex fluid or soft tissue mass involving the left lung base with mass effect. This measures 12.2 x 12.6 x 7.4 cm. 4.4 cm ascending aortic aneurysm. continue antibiotic. continue pain control- continue PET RESORT CONCIERGE today and will switch to oral pain meds tomorrow if pain is better. -Echocardiogram from 12/30. Says ejection fraction within normal limits, however expect calculation skewed by regurgitation - on afterload reduction with nifedipine. on Lasix. Cardiology ff -Continue treatment for COPD exacerbation as above.Seen by cardiology Dr Bustamante. Patient refuses, any time of work up for /AI at this time. EF preserved. Thus continue medical management with diuresis , daily weight, low salt diet, BP control and aggressive medical management for CAD. Once patient decides to undergo further evaluation she can follow with Cardiology as an outpatient. -mild hypokalemia; replaced. anemia of chronic disease- will monitor. urinary retention; on intermittent catheterization. continue PT. Discharge Planning no benefit for rehab or C. needs aggressive PT. Problem Qualifiers (1) COPD (chronic obstructive pulmonary disease): Qualified Codes: J43.1 - Panlobular emphysema Jay Iyer MD Jan 13, 2017 11:24
[2017-01-13] MEDS: RESP: ALBUTEROL 2.5 MG/3 ML NEB (PRN) NEB (12:00)
[2017-01-13] MEDS: RESP: ALBUTEROL 2.5 MG/3 ML NEB (SCH) INH ×2 (12:41→20:15)
[2017-01-13] MEDS ORDERED: POTASSIUM CHLORIDE 20 MEQ CONTROLLED RELEASE TAB PO ONE (14:00)
[2017-01-13] MEDS ORDERED: FUROSEMIDE 20 MG/2 ML VIAL IV PUSH ONE ×2 (14:00→17:00)
--- NOTE | 2017-01-13 19:21 | HHI.PR ---
Subjective Remarks S/P thoracotomy and decortication . Has a chest tube in place. draining bloody fluid O2 sat 97 on 2 L No fever.C/O pain along chest wall. Objective Vital Signs Date Time Temp Pulse Resp B/P (MAP) Pulse Ox O2 Delivery O2 Flow Rate FiO2 01/13/17 17:00 102 01/13/17 15:45 98.5 83 16 119/67 (84) 92 01/13/17 15:45 83 01/13/17 15:45 92 Room Air 01/13/17 15:00 82 01/13/17 14:00 84 01/13/17 14:00 16 01/13/17 13:12 16 01/13/17 13:00 98 01/13/17 12:00 90 01/13/17 12:00 90 01/13/17 11:30 98.8 97 18 104/61 (75) 94 01/13/17 11:30 94 01/13/17 11:30 94 Room Air 01/13/17 11:00 92 01/13/17 10:00 126 01/13/17 09:00 100 01/13/17 08:00 104 01/13/17 07:30 95 01/13/17 07:30 98.9 94 16 99/57 (71) 93 01/13/17 07:30 98.6 95 18 105/62 (76) 94 01/13/17 07:30 94 01/13/17 07:30 93 Room Air 01/13/17 07:10 95 21 01/13/17 06:00 94 01/13/17 06:00 16 01/13/17 05:00 92 01/13/17 04:00 90 01/13/17 03:00 98.4 92 18 112/61 (78) 93 01/13/17 03:00 93 Room Air 01/13/17 03:00 89 01/13/17 02:00 81 01/13/17 01:25 16 01/13/17 01:00 89 01/13/17 00:00 89 01/12/17 23:00 88 01/12/17 23:00 98 Room Air 01/12/17 23:00 98.3 87 18 112/63 (79) 98 01/12/17 22:00 85 01/12/17 22:00 16 01/12/17 21:00 94 01/12/17 20:00 90 01/12/17 19:20 97.9 90 18 107/62 (77) 93 Arterial Line 01/12/17 19:20 93 Room Air I/O 01/12/17 01/12/17 01/12/17 01/13/17 01/13/17 01/13/17 07:00 15:00 23:00 07:00 15:00 23:00 Intake Total 490 ml 1709 ml 829 ml Output Total 500 ml 390 ml 1330 ml Balance -10 ml 1319 ml -501 ml Intake Oral 200 ml 1000 ml 480 ml IV Total 290 ml 709 ml 349 ml Output Urine Total 200 ml 0 ml 1200 ml Chest Tube Drainage Total 300 ml 390 ml 130 ml Bladder Scan Volume Amount 160 ml 427 ml # Bowel Movements 0 0 0 Result Diagram: 01/13/1792401/13/17924 Objective Remarks GENERAL: This is an averagely built middle-aged white female who is pale. HEENT: Head normocephalic. Pupils are reactive and equal. Tongue moist. Throat is clear. Nasal mucosa dry. NECK: Supple. No bruits, thyroid enlargement or lymphadenopathy. CHEST: Distant breath sounds at the left lung base and occ crackles left chest . HEART: The heart sounds are irregular, S1-S2. No murmur. No S3. ABDOMEN: Soft and nontender. No organomegaly. Bowel sounds are active. EXTREMITIES: Edema 1+ with diminished peripheral pulses. Bilateral Foot deformity. NEUROLOGIC: Reflexes are 1+ with no gross motor deficits. SKIN: Dry and scaly. Assessment and Plan Assessment and Plan IMPRESSION 1. COPD with acute exacerbation, resolved 2. S/p decortication left Chest 3. Atelectasis left lower lobe with mucus plugging. 4. Hyponatremia. 5. Abnormal liver enzymes 6. Anemia and chronic disease. Plan : 1. O2 2 L. PRN 2. IS q2h at bedside 3. Rocephin 1 Gm IV daily 4. Duoneb nebs tid. 5. CXR in am 6. PT evaluation for ambulation. 7. PO Lasix 20 mg daily. Venessa Chung MD Jan 13, 2017 19:21
[2017-01-13] MEDS: SODIUM CHLORIDE 0.9% FLUSH 5 ML FLUSH IV FLUSH SCH (20:52)
[2017-01-13] MEDS: PANTOPRAZOLE SOD 40 MG DELAYED RELEASE TAB PO SCH (20:52)
[2017-01-13] MEDS: SODIUM CHLOR 0.9% 1000 ML INJ 1,000 ML IV SCH (21:00)
[2017-01-14] VITALS (33 sets, daily range): BP systolic 93–119; BP diastolic 59–71; PULSE 82–102; RESP 16–18; TEMP 97.8–98.6; O2SAT 92–100
[2017-01-14] MEDS: cefTRIAXone INJ 1,000 MG in SODIUM CHLORIDE 0.9% INJ 100 ML IV SCH ×2 (01:00→23:44)
[2017-01-14 05:13] LABS: AUTOMATED NEUTROPHIL # 4.1 TH/MM3 (1.8-7.7); BASOPHIL % 0.2 % (0.0-2.0); EOSINOPHIL % 0.7 % (0.0-4.0); LYMPH % 18.4 % (9.0-44.0); LYMPHOCYTE # 1.1 TH/MM3 (1.0-4.8); MEAN CELL VOLUME 100.7 FL (80.0-100.0); MEAN CORPUSCULAR HEMOGLOBIN 35.1 PG (27.0-34.0); MEAN CORPUSCULAR HGB CONC 34.8 % (32.0-36.0); MONO % 12.2 % (0.0-8.0); NEUT % 68.5 % (16.0-70.0); PLATELET COUNT 64 TH/MM3 (150-450); RED BLOOD COUNT 2.29 MIL/MM3 (4.00-5.30); RED CELL DISTRIBUTION WIDTH 21.9 % (11.6-17.2); WHITE BLOOD COUNT 6.1 TH/MM3 (4.0-11.0)
--- NOTE | 2017-01-14 05:18 | RADRPT ---
EXAM DATE/TIME: 01/14/2017 04:43 [facility] COMPARISON: CHEST SINGLE AP, January 12, 2017, 4:41. INDICATIONS : Evaluate for effusion- Left side chest tube MEDICAL HISTORY : Chronic obstructive pulmonary disease. SURGICAL HISTORY : Thoracotomy ENCOUNTER: Subsequent ACUITY: 3 days PAIN SCORE: 9/10 LOCATION: Bilateral chest FINDINGS: There is complete opacification of left hemithorax. 2 chest tubes remain in place. There is no evide nce of pneumothorax. The right lung is free of acute parenchymal opacity. CONCLUSION: 1. Complete opacification left hemithorax. The findings have worsened when compared with the prior ex amination. Sterling Wolfe MD on January 14, 2017 at 5:16 Board Certified Radiologist. This report was verified electronically.
[2017-01-14 05:39] LABS: BICARBONATE 29.8 MEQ/L (21.0-32.0); POTASSIUM 3.4 MEQ/L (3.5-5.1)
[2017-01-14 06:00] LABS: CALCIUM-PROTEIN CORRECTED 8.8 MG/DL (8.5-10.1)
[2017-01-14] MEDS: PCA - TOTAL MG MORPHINE DELIVERED PER SHIFT SCH ×3 (06:00→22:50)
[2017-01-14 06:03] LABS: HEMO FLAGS AUTO DIFF
[2017-01-14] MEDS: MORPHINE SULFATE 30 MG/30 ML PCA IV SCH ×2 (06:25→14:31)
--- NOTE | 2017-01-14 08:17 | PD.CAR.PN ---
CVT Progress Note CVT: POD #: 3 Subjective/Hospital Course: 56-year-old white female with a history of COPD, chronic bronchitis who apparently was suffering from food poisoning. The patient states that she was unable to pass urine and became very weak, had lost weight with diarrhea, abdominal discomfort, dehydration and presented to ER for evaluation. She c/o 20 lb weight loss over the past [address] done showed evidence of a loculated mass-like infiltrate in the left lung base 12 x 12 cm and a left upper lobe lung nodule 7 mm. The patient was started on Solu-Medrol, IV antibiotics including Rocephin and Zithromax. Denies chest pains or abdominal pains or nausea or vomiting. She underwent chest tube placement in IR 12/29 with minimal drainage of this effusion.. Chest tube was removed. Repeat chest x- ray shows no change in the mod pleural effusion but does shows some mild patchy opacities in the right lung base. cardiology Dr Dianna perez pt TTE shows preserved EF and at least moderate /AI. present diagnosis : Respiratory Insufficiency, Left-sided consolidation , Exudative pleural effusion, COPD exacerbation, Urinary tract infection, x tobacco use Anemia, thrombocytopenia, Moderate aortic valve regurgitation, Moderate calcific aortic valve stenosis pleural fluid : exudative effusion. Cytology neg for malignant cells. Fluid cx neg CT chest 12/29 : Either highly complex fluid or soft tissue mass involving the left lung base with mass effect. This measures 12.2 x 12.6 x 7.4 cm. 4.4 cm ascending aortic aneurysm. pt is now agreeable for surgery : plan is for left thoracoscopic exploration for loculated pleural effusion , possible thoracotomy , decortication in am 01/11 on nasal cannula surgery: Left thoracoscopic exploration, left thoracotomy for decortication, evacuation of complex loculated effusion, adhesiolysis 01/12 pain controlled with TINT LAYER morphine needs aggressive pulm toileting OOB, ambulate recheck UA / pleural fluid cultures and path pending 01/13 chest tubes drained 130cc/ 12 hrs serous drainage / leave chest tube in for now CXR noted , from 01/12, mucus plugging, aggressive pulm toileting add ezpap and acapella now on Rocephin, will dc ancef, await on UA culture OOB, ambulate, 01/14/17 No complaints today. Denies dyspnea, but CXR shows complete opacification of left lung Objective: Vital Signs Date Time Temp Pulse Resp B/P (MAP) Pulse Ox O2 Delivery O2 Flow Rate FiO2 01/14/17 06:25 16 01/14/17 06:03 83 01/14/17 06:00 16 01/14/17 05:30 88 01/14/17 04:20 92 01/14/17 03:30 98.5 96 16 94/63 (73) 92 01/14/17 03:30 92 Room Air 01/14/17 03:07 90 01/14/17 02:06 92 01/14/17 01:43 89 01/14/17 00:54 82 01/14/17 00:00 98.6 85 17 105/61 100 01/13/17 23:15 98.2 82 17 106/63 (77) 100 01/13/17 23:15 82 01/13/17 23:15 98.5 82 16 106/63 100 01/13/17 23:15 100 Nasal Cannula 2.00 01/13/17 22:45 98.3 78 16 95/57 98 01/13/17 22:21 88 16 94/62 100 01/13/17 22:15 88 01/13/17 22:15 98.5 86 17 95/60 100 01/13/17 22:10 98.5 87 16 97/58 100 01/13/17 22:07 16 01/13/17 22:04 98.5 88 17 100/59 100 01/13/17 22:02 16 01/13/17 22:00 98.7 90 18 89/51 92 01/13/17 22:00 16 01/13/17 21:55 98.8 86 17 97/55 92 01/13/17 21:50 98.8 87 16 98/54 97 01/13/17 21:00 96 01/13/17 20:15 91 21 01/13/17 20:10 98.4 100 16 104/64 (77) 97 01/13/17 20:10 97 Room Air 01/13/17 20:00 86 01/13/17 19:00 102 01/13/17 18:00 99 01/13/17 17:00 102 01/13/17 15:45 98.5 83 16 119/67 (84) 92 01/13/17 15:45 83 01/13/17 15:45 92 Room Air 01/13/17 15:00 82 01/13/17 14:00 84 01/13/17 14:00 16 01/13/17 13:12 16 01/13/17 13:00 98 01/13/17 12:00 90 01/13/17 12:00 90 01/13/17 11:30 98.8 97 18 104/61 (75) 94 01/13/17 11:30 94 01/13/17 11:30 94 Room Air 01/13/17 11:00 92 01/13/17 10:00 126 01/13/17 09:00 100 Labs: Laboratory Tests Test 01/14/17 04:40 White Blood Count 6.1 TH/MM3 (4.0-11.0) Red Blood Count 2.29 MIL/MM3 (4.00-5.30) Hemoglobin 8.0 GM/DL (11.6-15.3) Hematocrit 23.0 % (35.0-46.0) Mean Corpuscular Volume 100.7 FL (80.0-100.0) Mean Corpuscular Hemoglobin 35.1 PG (27.0-34.0) Mean Corpuscular Hemoglobin Concent 34.8 % (32.0-36.0) Red Cell Distribution Width 21.9 % (11.6-17.2) Platelet Count 64 TH/MM3 (150-450) Mean Platelet Volume 9.0 FL (7.0-11.0) Neutrophils (%) (Auto) 68.5 % (16.0-70.0) Lymphocytes (%) (Auto) 18.4 % (9.0-44.0) Monocytes (%) (Auto) 12.2 % (0.0-8.0) Eosinophils (%) (Auto) 0.7 % (0.0-4.0) Basophils (%) (Auto) 0.2 % (0.0-2.0) Neutrophils # (Auto) 4.1 TH/MM3 (1.8-7.7) Lymphocytes # (Auto) 1.1 TH/MM3 (1.0-4.8) Monocytes # (Auto) 0.7 TH/MM3 (0-0.9) Eosinophils # (Auto) 0.0 TH/MM3 (0-0.4) Basophils # (Auto) 0.0 TH/MM3 (0-0.2) CBC Comment AUTO DIFF Blood Urea Nitrogen 8 MG/DL (7-18) Creatinine 0.43 MG/DL (0.50-1.00) Random Glucose 103 MG/DL (74-106) Total Protein 4.6 GM/DL (6.4-8.2) Calcium Level 7.4 MG/DL (8.5-10.1) Sodium Level 134 MEQ/L (136-145) Potassium Level 3.4 MEQ/L (3.5-5.1) Chloride Level 97 MEQ/L (98-107) Carbon Dioxide Level 29.8 MEQ/L (21.0-32.0) Anion Gap 7 MEQ/L (5-15) Estimat Glomerular Filtration Rate 152 ML/MIN (>89) Protein Corrected Calcium 8.8 MG/DL (8.5-10.1) Result Diagram: 01/14/1743901/14/17439 Imaging: Last 24 hours Impressions Chest X-Ray 01/14/17 0600 Signed Impressions: Service Date/Time: Monday, January 14, 2017 04:43 - CONCLUSION: 1. Complete opacification left hemithorax. The findings have worsened when compared with the prior examination. Sterling Wolfe MD Cardiovascular: RRR Telemetry: NSR Pulmonary: Decreased BS on left GI/: NABS, NT Incision: dry and intact CT: ~340ml/24 hrs, no air leak Plan: Worse CXR, but patient is asymptomatic. She will likely need bronchoscopy. Incentive spirometer, up to chair, ambulate Will discuss with Dr. Chung (1) COPD (chronic obstructive pulmonary disease) Plan: IMPRESSION 1. COPD with acute exacerbation 2. Chronic left basilar effusion with loculation 3. Atelectasis left lower lobe with mucus plugging. 4. Hyponatremia. 5. Abnormal liver enzymes 6. Anemia and chronic disease. 7. Aortic Stenosis/AI 8. Soft tissue mass involving the left lung base with mass effect. 9. 4.4 cm ascending aortic aneurysm. 10. Deconditioned s/p left thoracoscopic exploration for loculated pleural effusion , possible thoracotomy decortication pulm toileting pain control GI motility meds OOB/ ambulate extra dose of lasix, low dose BB (2) Tobacco abuse Plan: smoking cessation (3) Physical deconditioning Plan: pt (4) Pleural effusion on left Plan: s/p left thoracoscopic exploration for loculated pleural effusion path pending cultures pending Problem Qualifiers (1) COPD (chronic obstructive pulmonary disease): Qualified Codes: J43.1 - Panlobular emphysema Josey Recinos MD Jan 14, 2017 08:17
[2017-01-14] MEDS: RESP: ALBUTEROL 2.5 MG/3 ML NEB (SCH) INH ×3 (08:24→20:26)
[2017-01-14] MEDS: POTASSIUM CHLORIDE 10 MEQ CONTROLLED RELEASE TAB PO SCH (09:00)
[2017-01-14] MEDS: SODIUM CHLORIDE 0.9% FLUSH 5 ML FLUSH IV FLUSH SCH ×2 (09:00→21:00)
[2017-01-14] MEDS: POLYETHYLENE GLYCOL 17 GM PKG PO SCH (09:00)
[2017-01-14] MEDS: predniSONE 10 MG TAB PO SCH (09:00)
[2017-01-14] MEDS: POTASSIUM CHLOR 20 MEQ PREMIX 100 ML IV SCH ×2 (09:13→11:26)
[2017-01-14 10:13] LABS: PLATELET ESTIMATE SMEAR LOW (NORMAL); PLATELET MORPHOLOGY NORMAL (NORMAL); SCAN/DIFF AUTO DIFF CONFIRMED
--- NOTE | 2017-01-14 10:22 | HHI.PR ---
Subjective Remarks Patient is not in severe respiratory distress, but has left lung white out on today's chest x-ray. Possible mucous plugging. Potassium is low this morning. Objective Vital Signs Date Time Temp Pulse Resp B/P (MAP) Pulse Ox O2 Delivery O2 Flow Rate FiO2 01/14/17 10:00 90 01/14/17 09:00 102 01/14/17 08:30 94 Nasal Cannula 3.00 01/14/17 08:15 98.3 101 16 93/59 (70) 98 01/14/17 08:15 98 Nasal Cannula 3.00 01/14/17 08:00 100 01/14/17 07:02 96 01/14/17 06:25 16 01/14/17 06:03 83 01/14/17 06:00 16 01/14/17 05:30 88 01/14/17 04:20 92 01/14/17 03:30 98.5 96 16 94/63 (73) 92 01/14/17 03:30 92 Room Air 01/14/17 03:07 90 01/14/17 02:06 92 01/14/17 01:43 89 01/14/17 00:54 82 01/14/17 00:00 98.6 85 17 105/61 100 01/13/17 23:15 98.2 82 17 106/63 (77) 100 01/13/17 23:15 82 01/13/17 23:15 98.5 82 16 106/63 100 01/13/17 23:15 100 Nasal Cannula 2.00 01/13/17 22:45 98.3 78 16 95/57 98 01/13/17 22:21 88 16 94/62 100 01/13/17 22:15 88 01/13/17 22:15 98.5 86 17 95/60 100 01/13/17 22:10 98.5 87 16 97/58 100 01/13/17 22:07 16 01/13/17 22:04 98.5 88 17 100/59 100 01/13/17 22:02 16 01/13/17 22:00 98.7 90 18 89/51 92 01/13/17 22:00 16 01/13/17 21:55 98.8 86 17 97/55 92 01/13/17 21:50 98.8 87 16 98/54 97 01/13/17 21:00 96 01/13/17 20:15 91 21 01/13/17 20:10 98.4 100 16 104/64 (77) 97 01/13/17 20:10 97 Room Air 01/13/17 20:00 86 01/13/17 19:00 102 01/13/17 18:00 99 01/13/17 17:00 102 01/13/17 15:45 98.5 83 16 119/67 (84) 92 01/13/17 15:45 83 01/13/17 15:45 92 Room Air 01/13/17 15:00 82 01/13/17 14:00 84 01/13/17 14:00 16 01/13/17 13:12 16 01/13/17 13:00 98 01/13/17 12:00 90 01/13/17 12:00 90 01/13/17 11:30 98.8 97 18 104/61 (75) 94 01/13/17 11:30 94 01/13/17 11:30 94 Room Air 01/13/17 11:00 92 I/O 01/13/17 01/13/17 01/13/17 01/14/17 01/14/17 01/14/17 07:00 15:00 23:00 07:00 15:00 23:00 Intake Total 829 ml 1351 ml 890 ml Output Total 1330 ml 1820 ml 1320 ml Balance -501 ml -469 ml -430 ml Intake Oral 480 ml 960 ml 480 ml IV Total 349 ml 381 ml Packed Cells 400 ml Blood Product IV Normal Saline Flush 10 ml 10 ml Output Urine Total 1200 ml 1650 ml 1150 ml Chest Tube Drainage Total 130 ml 170 ml 170 ml Bladder Scan Volume Amount 427 ml # Bowel Movements 0 0 0 Result Diagram: 01/14/1743901/14/17439 Objective Remarks GENERAL: NAD, A&Ox3 HEAD: Normocephalic. NECK: Supple, trachea midline. No lymphadenopathy. EYES: No scleral icterus. No injection or drainage. CARDIOVASCULAR: Regular rate and rhythm without murmurs, gallops, or rubs. RESPIRATORY: Diminished absent breath sounds on the left. Sounds on the right are clear and without rales or crackles. GASTROINTESTINAL: Abdomen soft, non-tender, nondistended. MUSCULOSKELETAL: No cyanosis, or edema. SKIN: Warm and dry. NEURO: No focal neurological deficitis. A/P Problem List: (1) Pleural effusion on left ICD Code: J90 - Pleural effusion, not elsewhere classified Status: Acute (2) COPD (chronic obstructive pulmonary disease) ICD Code: J44.9 - Chronic obstructive pulmonary disease, unspecified Status: Chronic (3) Respiratory distress ICD Code: R06.00 - Dyspnea, unspecified Status: Resolved (4) Physical deconditioning ICD Code: R53.81 - Other malaise Status: Chronic Assessment and Plan Assessment and Plan 56-year-old female admitted secondary to respiratory distress. Left-sided chest tube remains. White out of left lung discovered today. Left pleural effusion Thoracentesis and chest tube placement by IR on 12/29/16 Left thoracotomy with decortication on 01/11/17 Continue oxygen Continue steroids Continue bronchodilators Pulmonology following Cardiothoracic surgery following Continue to follow cytology and cultures Pain control as needed Possible need for bronchoscopy Follow in ICU Hypokalemia Replace as needed Follow potassium levels anemia of chronic disease Follow CBC urinary retention intermittent catheterization. Physical deconditioning Continue PT as tolerated Problem Qualifiers (1) COPD (chronic obstructive pulmonary disease): Qualified Codes: J43.1 - Panlobular emphysema Stew Koroma MD Jan 14, 2017 10:22
[2017-01-14] MEDS: NIFEdipine 30 MG SUSTAINED RELEASE TAB PO SCH (11:52)
[2017-01-14] MEDS: FUROSEMIDE 20 MG TAB PO SCH (11:52)
[2017-01-14] MEDS: SODIUM CHLOR 0.9% 1000 ML INJ 1,000 ML IV SCH (21:00)
[2017-01-14] MEDS: PANTOPRAZOLE SOD 40 MG DELAYED RELEASE TAB PO SCH (21:08)
[2017-01-15] VITALS (23 sets, daily range): BP systolic 84–120; BP diastolic 56–77; PULSE 78–126; RESP 14–22; TEMP 96–99.1; O2SAT 74–100
[2017-01-15] MEDS: RESP: ALBUTEROL 2.5 MG/3 ML NEB (PRN) NEB ×2 (01:55→10:55)
[2017-01-15 04:01] LABS: AUTOMATED NEUTROPHIL # 3.2 TH/MM3 (1.8-7.7); BASOPHIL % 0.5 % (0.0-2.0); EOSINOPHIL % 0.7 % (0.0-4.0); LYMPH % 26.3 % (9.0-44.0); LYMPHOCYTE # 1.3 TH/MM3 (1.0-4.8); MEAN CELL VOLUME 101.8 FL (80.0-100.0); MEAN CORPUSCULAR HEMOGLOBIN 35.1 PG (27.0-34.0); MEAN CORPUSCULAR HGB CONC 34.5 % (32.0-36.0); MONO % 10.7 % (0.0-8.0); NEUT % 61.8 % (16.0-70.0); PLATELET COUNT 55 TH/MM3 (150-450); RED BLOOD COUNT 2.26 MIL/MM3 (4.00-5.30); RED CELL DISTRIBUTION WIDTH 21.5 % (11.6-17.2); WHITE BLOOD COUNT 5.1 TH/MM3 (4.0-11.0)
[2017-01-15 04:03] LABS: HEMO FLAGS DIFF FINAL
[2017-01-15 04:32] LABS: ALT (GPT) 13 U/L (10-53); ANION GAP 4 MEQ/L (5-15); AST (GOT) 21 U/L (15-37); BICARBONATE 31.7 MEQ/L (21.0-32.0); BLOOD UREA NITROGEN 7 MG/DL (7-18); CHLORIDE 99 MEQ/L (98-107); GLOMERULAR FILTRATION RATE 284 ML/MIN (>89); POTASSIUM 3.5 MEQ/L (3.5-5.1); SODIUM (NA) 135 MEQ/L (136-145)
[2017-01-15 04:35] LABS: ALKALINE PHOSPHATASE 134 U/L (45-117); TOTAL BILIRUBIN ADULT 0.5 MG/DL (0.2-1.0)
[2017-01-15] MEDS: PCA - TOTAL MG MORPHINE DELIVERED PER SHIFT SCH (06:00)
[2017-01-15] MEDS: SODIUM CHLORIDE 0.9% FLUSH 5 ML FLUSH IV FLUSH SCH ×2 (09:00→21:00)
[2017-01-15] MEDS: FUROSEMIDE 20 MG TAB PO SCH (09:21)
[2017-01-15] MEDS: predniSONE 10 MG TAB PO SCH (09:21)
[2017-01-15] MEDS: POTASSIUM CHLORIDE 10 MEQ CONTROLLED RELEASE TAB PO SCH (09:22)
[2017-01-15] MEDS: NIFEdipine 30 MG SUSTAINED RELEASE TAB PO SCH (09:22)
[2017-01-15] MEDS: POLYETHYLENE GLYCOL 17 GM PKG PO SCH (09:22)
[2017-01-15] MEDS: MORPHINE SULFATE 30 MG/30 ML PCA IV SCH (09:29)
[2017-01-15] MEDS: RESP: ALBUTEROL 2.5 MG/3 ML NEB (SCH) INH (09:42)
[2017-01-15 10:01] LABS: BLOOD GAS BASE EXCESS 2.6 mmol/L (-2-2); BLOOD GAS CARBOXYHEMOGLOBIN 1.7 % (0-4); BLOOD GAS HCO3 29 mmol/L (22-26); BLOOD GAS METHEMOGLOBIN 1.1 % (0-2); BLOOD GAS O2 HGB SATURATION 79 % (90-100); BLOOD GAS PCO2 62 mmHg (38-42); BLOOD GAS PO2 53 mmHg (61-120); TEMP CORR TO 98.6
[2017-01-15 10:02] LABS: CRITICAL VALUE YES; DRAW SITE RT RADIAL; FIO2 100 %; NUMBER OF ARTERIAL PUNCTURES 1; OXYGEN DEVICE NRB; STAT YES; ULNAR PULSE PRESENT
[2017-01-15] MEDS ORDERED: ETOMIDATE 40 MG/20 ML VIAL ONE (10:08)
[2017-01-15] MEDS ORDERED: MIDAZOLAM HCL 5 MG/ML VIAL (1 ML) ONE (10:09)
--- NOTE | 2017-01-15 10:15 | HHI.PR ---
Subjective Remarks Patient reports worsening of respiratory status overnight. This continued through the morning and patient was transferred to CVICU. Chest x-ray is pending. Objective Vital Signs Date Time Temp Pulse Resp B/P (MAP) Pulse Ox O2 Delivery O2 Flow Rate FiO2 01/15/17 09:42 74 Non-Rebreather 100 01/15/17 09:29 16 01/15/17 08:00 104 01/15/17 07:00 126 01/15/17 07:00 94 Nasal Cannula 2.00 01/15/17 07:00 98.7 126 18 110/62 (78) 94 01/15/17 06:09 99 01/15/17 06:00 18 01/15/17 05:02 91 01/15/17 04:13 102 01/15/17 03:30 94 01/15/17 03:30 95 Nasal Cannula 1.50 01/15/17 03:30 98.4 94 17 119/61 (80) 95 01/15/17 02:04 95 01/15/17 01:55 94 Nasal Cannula 2.00 01/15/17 01:10 100 01/15/17 00:00 94 01/14/17 23:30 97.9 92 18 116/62 (80) 93 01/14/17 23:30 93 Nasal Cannula 1.50 01/14/17 23:00 95 01/14/17 22:50 18 01/14/17 22:00 100 01/14/17 21:00 88 01/14/17 20:38 94 21 01/14/17 20:27 99 Nasal Cannula 2.00 01/14/17 20:00 94 01/14/17 19:20 97.8 101 16 119/63 (81) 99 01/14/17 19:20 99 Nasal Cannula 3.00 01/14/17 19:00 92 01/14/17 18:00 92 01/14/17 17:00 92 01/14/17 16:03 84 01/14/17 16:00 98.2 99 18 101/64 (76) 100 01/14/17 15:00 98 Nasal Cannula 3.00 01/14/17 15:00 92 01/14/17 14:31 18 01/14/17 14:00 94 01/14/17 14:00 18 01/14/17 13:00 96 01/14/17 12:03 93 01/14/17 11:00 98.0 101 18 116/71 (86) 100 01/14/17 11:00 98 Nasal Cannula 3.00 01/14/17 11:00 92 I/O 01/14/17 01/14/17 01/14/17 01/15/17 01/15/17 01/15/17 07:00 15:00 23:00 07:00 15:00 23:00 Intake Total 890 ml 1923 ml 917 ml Output Total 1320 ml 1100 ml 675 ml Balance -430 ml 823 ml 242 ml Intake Oral 480 ml 480 ml 480 ml IV Total 1443 ml 437 ml Packed Cells 400 ml Blood Product IV Normal Saline Flush 10 ml Output Urine Total 1150 ml 900 ml 675 ml Chest Tube Drainage Total 170 ml 200 ml # Bowel Movements 0 0 Result Diagram: 01/15/1732401/15/17324 Objective Remarks GENERAL: NAD, A&Ox3 HEAD: Normocephalic. NECK: Supple, trachea midline. No lymphadenopathy. EYES: No scleral icterus. No injection or drainage. CARDIOVASCULAR: Regular rate and rhythm without murmurs, gallops, or rubs. RESPIRATORY: Absent breath sounds on the left. Sounds on the right are clear and without rales or crackles. GASTROINTESTINAL: Abdomen soft, non-tender, nondistended. MUSCULOSKELETAL: No cyanosis, or edema. SKIN: Warm and dry. NEURO: No focal neurological deficitis. A/P Problem List: (1) Pleural effusion on left ICD Code: J90 - Pleural effusion, not elsewhere classified Status: Acute (2) COPD (chronic obstructive pulmonary disease) ICD Code: J44.9 - Chronic obstructive pulmonary disease, unspecified Status: Chronic (3) Respiratory distress ICD Code: R06.00 - Dyspnea, unspecified Status: Resolved (4) Physical deconditioning ICD Code: R53.81 - Other malaise Status: Chronic Assessment and Plan Assessment and Plan 56-year-old female admitted secondary to respiratory distress. Left-sided chest tube remains. White out of left lung discovered yesterday. Worsening respiratory status is morning. Patient transfer to CVICU. Backhoe Operator consulted. Chest x-ray pending. Continue nebulized treatments as needed. Left pleural effusion Thoracentesis and chest tube placement by IR on 12/29/16 Left thoracotomy with decortication on 01/11/17 Continue oxygen Continue steroids Continue bronchodilators Pulmonology following Cardiothoracic surgery following Continue to follow cytology and cultures Pain control as needed Possible need for bronchoscopy Follow in ICU Hypokalemia Replace as needed Follow potassium levels anemia of chronic disease Follow CBC urinary retention intermittent catheterization. Physical deconditioning Continue PT as tolerated Problem Qualifiers (1) COPD (chronic obstructive pulmonary disease): Qualified Codes: J43.1 - Panlobular emphysema Stew Koroma MD Jan 15, 2017 10:15
[2017-01-15] MEDS ORDERED: PROPOFOL 500 MG/50 ML INJ 50 ML ONE (10:18)
[2017-01-15] MEDS ORDERED: RESP: ALBUTEROL 2.5 MG/3 ML NEB (PRN) NEB (10:30)
[2017-01-15] MEDS ORDERED: fentaNYL DRIP 250 ML IV PRN (10:30)
--- NOTE | 2017-01-15 10:30 | RADRPT ---
EXAM DATE/TIME: 01/15/2017 10:06 [facility] COMPARISON: CHEST SINGLE AP, January 14, 2017, 4:43. INDICATIONS : Shortness of breath. MEDICAL HISTORY : Chronic obstructive pulmonary disease. SURGICAL HISTORY : Thoracotomy ENCOUNTER: Subsequent ACUITY: 4 - 6 days PAIN SCORE: 0/10 LOCATION: Bilateral chest FINDINGS: Single view of the chest continues to demonstrate complete opacification left hemithorax. 2 left-side d chest tubes remain in place. There is [id number] shift of the cardiac mediastinal structures. Vascular congestive changes remain evident in the right lung. Right central line is in stable position CONCLUSION: 1. Consolidated left lung; unchanged 2. Stable left chest tubes 3. Pulmonary congestive changes right lung with diffuse vascular engorgement. Jas Hammonds MD on January 15, 2017 at 10:26 Board Certified Radiologist. This report was verified electronically.
--- NOTE | 2017-01-15 10:33 | HHI.CCPN ---
Subjective Remarks/Hospital Course The patient is a 56-year-old female with past medical history of COPD, who presented to [facility] ED with complaints of coughing, wheezing. The patient states that she had food poisoning last week where she had nausea and diarrhea, after she ate suspicious food. She denies any worsening of dyspnea from baseline. In addition, she denies any constitutional symptoms. She quit smoking five and a half years ago and used to smoke one to two packs per day for about 30 years. Chest x-ray in the ER showed consolidation with large effusion and volume loss on the left. On further history she denies any hemoptysis, however, she reports 20 pounds weight loss in the last 4 months and decreased p.o. intake. She is being followed up by Dr. Chung her outpatient polisher hand. The patient denies any use of oxygen at home, however, she is on bronchodilators p.r.n. Her laboratory data is significant for hyponatremia with sodium level 125, lactic acid level 2.1. On arrival to the ER she was tachycardic and tachypneic. When seen the patient is on 4 liters nasal cannula with saturation ranges between 95-100%. In the ER she was given Rocephin, azithromycin, Solu-Medrol, bronchodilator treatment and IV fluids. Her current blood pressure is 107/61. 12/30 Patient s/p CT guided thoracentesis and CT placement by IR yesterday. She is feeling better. Subjective: 12/31 She complains of pain and requests increased pain meds. Repeat imaging ordered per pulmonology to evaluate mass vs loculated effusion. On HI. [facility] RECONSULT NOTE 01/15/17 Critical care consulted for severe hypoxemic respiratory failure. On 01/11/17 patient had left thoracotomy for decortication, evacuation of complex loculated effusion, adhesiolysis by Dr. Gamboa. CXR 01/14/17 showed near complete whiteout of the left lung-pulmonary Dr. Ridley is following. Today a HALIC[facility] was called as the patient was found profoundly hypoxemic in the 70s oxygen saturation. She was placed on 100% percent nonrebreather with improvement in saturation only to 81%. Stat ABG on 100% nonrebreather showed pH of 7.29 PCO2 of 62 pO2 of 53 and oxygen saturation 79%. Stat chest x-ray showed complete whiteout of the left lung. I discussed with the patient briefly, she is agreeable for intubation. I proceeded with endotracheal intubation and placed on mechanical ventilation -patient saturation gradually improved to 100%. Discussed with pulmonology Dr. Ridley. He plans to do bronchoscopy today afternoon. Objective Vital Signs Date Time Temp Pulse Resp B/P (MAP) Pulse Ox O2 Delivery O2 Flow Rate FiO2 01/15/17 09:42 74 Non-Rebreather 100 01/15/17 09:29 16 01/15/17 08:00 104 01/15/17 07:00 2.00 01/15/17 07:00 98.7 110/62 (78) Intake and Output 01/15/17 01/15/17 01/16/17 08:00 16:00 00:00 Intake Total 917 ml Output Total 675 ml Balance 242 ml Result Diagram: 01/15/17 0325 01/15/17 0325 Other Results Microbiology Date/Time Source Procedure Growth Status 01/12/17 19:00 Urine Clean Catch Urine Culture - Final NO GROWTH IN 48 HOURS. Complete Laboratory Tests Test 01/15/17 09:49 Blood Gas Puncture Site RT RADIAL Blood Gas Patient Temperature 98.6 Blood Gas HCO3 29 mmol/L (22-26) Blood Gas Base Excess 2.6 mmol/L (-2-2) Blood Gas Oxygen Saturation 79 % (90-100) Arterial Blood pH 7.29 (7.380-7.420) Arterial Blood Partial Pressure CO2 62 mmHg (38-42) Arterial Blood Partial Pressure O2 53 mmHg (61-120) Arterial Blood Oxygen Content 10.0 Vol % (12.0-20.0) Arterial Blood Carboxyhemoglobin 1.7 % (0-4) Arterial Blood Methemoglobin 1.1 % (0-2) Blood Gas Hemoglobin 9.0 G/DL (12.0-16.0) Oxygen Delivery Device NRB Blood Gas Inspired Oxygen 100 % Imaging Last Impressions Chest Tube Insertion 12/29/16 1224 Signed Impressions: Service Date/Time: December 13:22 - CONCLUSION: Uncomplicated CT-guided thoracentesis. David Mora MD Chest X-Ray 12/29/16 1003 Signed Impressions: Service Date/Time: December 10:24 - CONCLUSION: Combination of extensive consolidation, large effusion and volume loss on the left. Man Mcdaniels MD Chest CT 12/29/16 0000 Signed Impressions: Service Date/Time: December 13:07 - CONCLUSION: 1. Either highly complex fluid or soft tissue mass involving the left lung base with mass effect. This measures 12.2 x 12.6 x 7.4 cm. An ultrasound canal differentiate. 2. 7 mm nodule on the left upper lobe. 3. Material filling the left mainstem bronchus either related to purulent material or mucus. There is resulting volume loss of the entire left lung. 4. 4.4 cm ascending aortic aneurysm. Art Tate Jr., MD Objective Remarks GENERAL: Patient is 56 yo female who is pale chronically ill appearing, in acute respiratory distress, O2 sat 81% on 100% NRB SKIN: Warm and dry. HEAD: Normocephalic. EYES: No scleral icterus. No injection or drainage. NECK: Supple, trachea midline. No JVD or lymphadenopathy. CARDIOVASCULAR: Regular rate and rhythm with 3/6 systolic murmur in all areas, predominantly L and R upper sternal borders RESPIRATORY: Tachypneic with accessory muscle use. Diminished breath sounds on the left. L chest tube to suction draining 180 ml blood tinged fluid in last 4 hours. GASTROINTESTINAL: Abdomen soft, non-tender, nondistended. Bowel sounds present. MUSCULOSKELETAL: No cyanosis. Trace edema NEURO: Awake and alert, moving all extremities with no focal deficit. Resp distress limits exam Procedures CT guided thoracentesis with L chest tube placement 12/29 Left thoracoscopic exploration, left thoracotomy for decortication, evacuation of complex loculated effusion, adhesiolysis 01/11/17 Urinary Catheter: Yes Assessment to: Continue Vascular Central Line Catheter: Yes Assessment to: Continue A/P Problem List: (1) Acute hypoxemic respiratory failure ICD Code: J96.01 - Acute respiratory failure with hypoxia (2) Atelectasis of left lung ICD Code: J98.11 - Atelectasis (3) Pleural effusion on left ICD Code: J90 - Pleural effusion, not elsewhere classified Status: Acute (4) Pain ICD Code: R52 - Pain, unspecified Status: Acute (5) Tobacco abuse ICD Code: Z72.0 - Tobacco use Status: Chronic (6) COPD (chronic obstructive pulmonary disease) ICD Code: J44.9 - Chronic obstructive pulmonary disease, unspecified Status: Chronic (7) Hyponatremia ICD Code: E87.1 - Hypo-osmolality and hyponatremia Status: Acute (8) Respiratory distress ICD Code: R06.00 - Dyspnea, unspecified Status: Resolved (9) UTI (urinary tract infection) ICD Code: N39.0 - Urinary tract infection, site not specified Status: Acute (10) Physical deconditioning ICD Code: R53.81 - Other malaise Status: Chronic Assessment and Plan ASSESSMENT Acute hypoxemic respiratory failure Complete left lung atelectasis Left-sided consolidation with pleural effusion. Pulmonary hypertension Left thoracotomy with decortication, evacuation of complex loculated effusion, adhesiolysis COPD exacerbation. Hyponatremia/hypophosphatemia Hypokalemia. Urinary tract infection on abx Plan Neuro: Postintubation placed on propofol and fentanyl for sedation and vent synchrony Pain control with fentanyl Pulm: Acute hypoxemic respiratory failure Complete L lung atelectasis S/p decortication for L hemothorax COPD Tobacco abuse ?L lung mass vs loculated effusion/ Emergently intubated and placed on mechanical ventilation Bronchoscopy by Dr. Chung. Status post left thoracotomy and decortication 01/11/17-postop diagnosis hemothorax Bronchodilators, Solumedrol 60 mg IV q8 hours s/p CT guided left-sided thoracentesis and CT placement by IR 12/29/16 CT chest: Either highly complex fluid or soft tissue mass involving the left lung base with mass effect. This measures 12.2 x 12.6 x 7.4 cm. 4.4 cm ascending aortic aneurysm. CV: Pulmonary hypertension, most likely secondary from chronic hypoxia by echo Moderate aortic stenosis mild to moderate aortic regurgitation Monitor HR and BP and maintain MAP>65mmHg Echo 12/30 - systolic function grossly normal. Moderate /AI. Moderate to severe pulmonary hypertension.. GI: Nothing by mouth : Hyponatremia ?chronic but chronicity not truly known Hypokalemia, resolved ID: UTI Possible pneumonia Continue Rocephin for now UTI present on admission with culture positive for pansensitive Klebsiella. Influenza screen, blood and pleural fluid cultures negative to date. Temporal fluid studies from January 11, on cultures negative to date Endo: SSI with Accu-Cheks for glycemic control. Heme: Macrocytic anemia - Monitor CBC. Check B12, check iron studies DVT prophylaxis with SCDs. Start Lovenox 40 mg sq daily. IV Famotidine 20 mg IV q12h CCT 45 MIN Problem Qualifiers (1) COPD (chronic obstructive pulmonary disease): Qualified Codes: J43.1 - Panlobular emphysema Azeb Conway MD Jan 15, 2017 10:33
--- NOTE | 2017-01-15 10:41 | PD.PROCEDR ---
Procedure Note Procedure After the risks and benefits were discussed the following procedure was performed: INTUBATION: The patient was put in optimal position for the procedure. Rapid sequence intubation was initiated by me using 20 milligrams of etomidate IV and 5 milligrams of Versed IV. The patient was intubated with a 8.0 cuffed endotracheal tube. DL Mac4 blade Grade 1 view. Tube placement was confirmed by visualization of the tube and balloon passing through the cords, capnometry and subsequent chest x-ray. Breath sounds were equal and well aerated bilaterally postintubation. No breath sounds over stomach. Patient tolerated procedure well. Azeb Conway MD Jan 15, 2017 10:41
--- NOTE | 2017-01-15 11:18 | PD.CAR.PN ---
CVT Progress Note CVT: POD #: 4 Subjective/Hospital Course: 56-year-old white female with a history of COPD, chronic bronchitis who apparently was suffering from food poisoning. The patient states that she was unable to pass urine and became very weak, had lost weight with diarrhea, abdominal discomfort, dehydration and presented to ER for evaluation. She c/o 20 lb weight loss over the past [address] done showed evidence of a loculated mass-like infiltrate in the left lung base 12 x 12 cm and a left upper lobe lung nodule 7 mm. The patient was started on Solu-Medrol, IV antibiotics including Rocephin and Zithromax. Denies chest pains or abdominal pains or nausea or vomiting. She underwent chest tube placement in IR 12/29 with minimal drainage of this effusion.. Chest tube was removed. Repeat chest x- ray shows no change in the mod pleural effusion but does shows some mild patchy opacities in the right lung base. cardiology Dr Dianna perez pt TTE shows preserved EF and at least moderate /AI. present diagnosis : Respiratory Insufficiency, Left-sided consolidation , Exudative pleural effusion, COPD exacerbation, Urinary tract infection, x tobacco use Anemia, thrombocytopenia, Moderate aortic valve regurgitation, Moderate calcific aortic valve stenosis pleural fluid : exudative effusion. Cytology neg for malignant cells. Fluid cx neg CT chest 12/29 : Either highly complex fluid or soft tissue mass involving the left lung base with mass effect. This measures 12.2 x 12.6 x 7.4 cm. 4.4 cm ascending aortic aneurysm. pt is now agreeable for surgery : plan is for left thoracoscopic exploration for loculated pleural effusion , possible thoracotomy , decortication in am 01/11 on nasal cannula surgery: Left thoracoscopic exploration, left thoracotomy for decortication, evacuation of complex loculated effusion, adhesiolysis 01/12 pain controlled with CANE [employer]UME WATCHMAN morphine needs aggressive pulm toileting OOB, ambulate recheck UA / pleural fluid cultures and path pending 01/13 chest tubes drained 130cc/ 12 hrs serous drainage / leave chest tube in for now CXR noted , from 01/12, mucus plugging, aggressive pulm toileting add ezpap and acapella now on Rocephin, will dc ancef, await on UA culture OOB, ambulate, 01/14/17 No complaints today. Denies dyspnea, but CXR shows complete opacification of left lung 01/15/17 Hypoxic this morning despite 100% FiO2. Transferred to CVICU and reintubated. Bronchoscopy pending. Objective: Vital Signs Date Time Temp Pulse Resp B/P (MAP) Pulse Ox O2 Delivery O2 Flow Rate FiO2 01/15/17 10:40 100 50 01/15/17 10:15 100 70 01/15/17 09:42 74 Non-Rebreather 100 01/15/17 09:29 16 01/15/17 08:00 104 01/15/17 07:00 126 01/15/17 07:00 94 Nasal Cannula 2.00 01/15/17 07:00 98.7 126 18 110/62 (78) 94 01/15/17 06:09 99 01/15/17 06:00 18 01/15/17 05:02 91 01/15/17 04:13 102 01/15/17 03:30 94 01/15/17 03:30 95 Nasal Cannula 1.50 01/15/17 03:30 98.4 94 17 119/61 (80) 95 01/15/17 02:04 95 01/15/17 01:55 94 Nasal Cannula 2.00 01/15/17 01:10 100 01/15/17 00:00 94 01/14/17 23:30 97.9 92 18 116/62 (80) 93 01/14/17 23:30 93 Nasal Cannula 1.50 01/14/17 23:00 95 01/14/17 22:50 18 01/14/17 22:00 100 01/14/17 21:00 88 01/14/17 20:38 94 21 01/14/17 20:27 99 Nasal Cannula 2.00 01/14/17 20:00 94 01/14/17 19:20 97.8 101 16 119/63 (81) 99 01/14/17 19:20 99 Nasal Cannula 3.00 01/14/17 19:00 92 01/14/17 18:00 92 01/14/17 17:00 92 01/14/17 16:03 84 01/14/17 16:00 98.2 99 18 101/64 (76) 100 01/14/17 15:00 98 Nasal Cannula 3.00 01/14/17 15:00 92 01/14/17 14:31 18 01/14/17 14:00 94 01/14/17 14:00 18 01/14/17 13:00 96 01/14/17 12:03 93 Labs: Laboratory Tests Test 01/15/17 03:25 01/15/17 09:49 White Blood Count 5.1 TH/MM3 (4.0-11.0) Red Blood Count 2.26 MIL/MM3 (4.00-5.30) Hemoglobin 7.9 GM/DL (11.6-15.3) Hematocrit 23.0 % (35.0-46.0) Mean Corpuscular Volume 101.8 FL (80.0-100.0) Mean Corpuscular Hemoglobin 35.1 PG (27.0-34.0) Mean Corpuscular Hemoglobin Concent 34.5 % (32.0-36.0) Red Cell Distribution Width 21.5 % (11.6-17.2) Platelet Count 55 TH/MM3 (150-450) Mean Platelet Volume 8.9 FL (7.0-11.0) Neutrophils (%) (Auto) 61.8 % (16.0-70.0) Lymphocytes (%) (Auto) 26.3 % (9.0-44.0) Monocytes (%) (Auto) 10.7 % (0.0-8.0) Eosinophils (%) (Auto) 0.7 % (0.0-4.0) Basophils (%) (Auto) 0.5 % (0.0-2.0) Neutrophils # (Auto) 3.2 TH/MM3 (1.8-7.7) Lymphocytes # (Auto) 1.3 TH/MM3 (1.0-4.8) Monocytes # (Auto) 0.5 TH/MM3 (0-0.9) Eosinophils # (Auto) 0.0 TH/MM3 (0-0.4) Basophils # (Auto) 0.0 TH/MM3 (0-0.2) CBC Comment DIFF FINAL Differential Comment Blood Urea Nitrogen 7 MG/DL (7-18) Creatinine 0.25 MG/DL (0.50-1.00) Random Glucose 77 MG/DL (74-106) Total Protein 4.6 GM/DL (6.4-8.2) Albumin 1.9 GM/DL (3.4-5.0) Calcium Level 7.5 MG/DL (8.5-10.1) Alkaline Phosphatase 134 U/L (45-117) Aspartate Amino Transf (AST/SGOT) 21 U/L (15-37) Alanine Aminotransferase (ALT/SGPT) 13 U/L (10-53) Total Bilirubin 0.5 MG/DL (0.2-1.0) Sodium Level 135 MEQ/L (136-145) Potassium Level 3.5 MEQ/L (3.5-5.1) Chloride Level 99 MEQ/L (98-107) Carbon Dioxide Level 31.7 MEQ/L (21.0-32.0) Anion Gap 4 MEQ/L (5-15) Estimat Glomerular Filtration Rate 284 ML/MIN (>89) Blood Gas Puncture Site RT RADIAL Blood Gas Patient Temperature 98.6 Blood Gas HCO3 29 mmol/L (22-26) Blood Gas Base Excess 2.6 mmol/L (-2-2) Blood Gas Oxygen Saturation 79 % (90-100) Arterial Blood pH 7.29 (7.380-7.420) Arterial Blood Partial Pressure CO2 62 mmHg (38-42) Arterial Blood Partial Pressure O2 53 mmHg (61-120) Arterial Blood Oxygen Content 10.0 Vol % (12.0-20.0) Arterial Blood Carboxyhemoglobin 1.7 % (0-4) Arterial Blood Methemoglobin 1.1 % (0-2) Blood Gas Hemoglobin 9.0 G/DL (12.0-16.0) Oxygen Delivery Device NRB Blood Gas Inspired Oxygen 100 % Result Diagram: 01/15/17 0325 01/15/17 0325 Imaging: Last 24 hours Impressions Chest X-Ray 01/15/17 0000 Signed Impressions: Service Date/Time: Sunday, January 15, 2017 10:06 - CONCLUSION: 1. Consolidated left lung; unchanged 2. Stable left chest tubes 3. Pulmonary congestive changes right lung with diffuse vascular engorgement. Jas Hammonds MD Cardiovascular: RRR Telemetry: NSR Pulmonary: No BS on left GI/: Decreased BS, NT Incision: dry and intact CT: ~300ml/24 hrs - no air leak Plan: Dr. Conway consulted from critical care to manage ventilator and medical issues. She should improve following bronchoscopy. Will likely require blood transfusion. continue chest tubes to suction (1) COPD (chronic obstructive pulmonary disease) Plan: IMPRESSION 1. COPD with acute exacerbation 2. Chronic left basilar effusion with loculation 3. Atelectasis left lower lobe with mucus plugging. 4. Hyponatremia. 5. Abnormal liver enzymes 6. Anemia and chronic disease. 7. Aortic Stenosis/AI 8. Soft tissue mass involving the left lung base with mass effect. 9. 4.4 cm ascending aortic aneurysm. 10. Deconditioned s/p left thoracoscopic exploration for loculated pleural effusion , possible thoracotomy decortication pulm toileting pain control GI motility meds OOB/ ambulate extra dose of lasix, low dose BB (2) Tobacco abuse Plan: smoking cessation (3) Physical deconditioning Plan: pt (4) Pleural effusion on left Plan: s/p left thoracoscopic exploration for loculated pleural effusion path pending cultures pending Problem Qualifiers (1) COPD (chronic obstructive pulmonary disease): Qualified Codes: J43.1 - Panlobular emphysema Josey Recinos MD Jan 15, 2017 11:18
[2017-01-15 11:26] LABS: BLOOD GAS BASE EXCESS 2.8 mmol/L (-2-2); BLOOD GAS CARBOXYHEMOGLOBIN 1.5 % (0-4); BLOOD GAS HCO3 28 mmol/L (22-26); BLOOD GAS METHEMOGLOBIN 1.1 % (0-2); BLOOD GAS O2 HGB SATURATION 96 % (90-100); BLOOD GAS OXYGEN CONTENT 11.3 Vol % (12.0-20.0); BLOOD GAS PCO2 48 mmHg (38-42); BLOOD GAS PO2 128 mmHg (61-120); BLOOD GAS TOTAL HGB 8.2 G/DL (12.0-16.0); CRITICAL VALUE NO; OXYGEN DEVICE VENTILATOR; TEMP CORR TO 98.6; VENT SETTINGS PRVC/AC 400/16
[2017-01-15 11:27] LABS: DRAW SITE LT RADIAL; FIO2 45 %; NUMBER OF ARTERIAL PUNCTURES 1; STAT NO; ULNAR PULSE PRESENT
--- NOTE | 2017-01-15 11:31 | RADRPT ---
EXAM DATE/TIME: 01/15/2017 10:36 [facility] COMPARISON: CHEST SINGLE AP, January 15, 2017, 10:06. INDICATIONS : Evaluate intubation MEDICAL HISTORY : Chronic obstructive pulmonary disease. SURGICAL HISTORY : Thoracotomy ENCOUNTER: Subsequent ACUITY: 4 - 6 days PAIN SCORE: Non-responsive. LOCATION: chest FINDINGS: Endotracheal tube has been inserted and is located approximately 1-2 cm above the alethea. Slight incr eased aeration is seen in the left upper lobe. Left lung otherwise remains consolidated. Left-sided chest tubes and central line are in stable position. CONCLUSION: Endotracheal tube 1-2 cm above the alethea. Slight improvement in left upper lobe aeration. Jas Hammonds MD on January 15, 2017 at 11:28 Board Certified Radiologist. This report was verified electronically.
[2017-01-15] MEDS ORDERED: methylPREDNISolone SOD SUCC 125 MG/2 ML VIAL IV PUSH SCH (12:00)
[2017-01-15] MEDS ORDERED: ENOXAPARIN SODIUM 40 MG/0.4 ML SYRINGE SQ SCH (12:00)
[2017-01-15 12:33] LABS: RETIC % 2.1 % (0.4-3.0)
[2017-01-15 12:37] LABS: REVIEW FLAG FINAL
[2017-01-15] MEDS: methylPREDNISolone SOD SUCC 125 MG/2 ML VIAL IV PUSH SCH ×2 (12:53→21:23)
[2017-01-15] MEDS: PROPOFOL 1000 MG/100 ML INJ 100 ML IV PRN (12:54)
[2017-01-15] MEDS: RESP: ALBUTEROL 2.5 MG/IPRATROPIUM 0.5 MG NEB (SCH) NEB ×3 (13:07→20:15)
[2017-01-15 13:42] LABS: TRANSFERRIN IRON PROFILE 96 MG/DL (200-360)
--- NOTE | 2017-01-15 15:35 | HHI.PR ---
Subjective Remarks S/P thoracotomy and decortication . Has a chest tube in place. draining bloody fluid Was hypoxic today and C XR showed whiteout of left side. No fever.C/O pain along chest wall. Objective Vital Signs Date Time Temp Pulse Resp B/P (MAP) Pulse Ox O2 Delivery O2 Flow Rate FiO2 01/15/17 11:00 45 01/15/17 11:00 97.4 92 16 106/72 (83) 100 01/15/17 11:00 100 Mechanical Ventilator 45 01/15/17 11:00 92 01/15/17 10:40 100 50 01/15/17 10:15 100 70 01/15/17 10:00 120 01/15/17 09:42 74 Non-Rebreather 100 01/15/17 09:29 16 01/15/17 09:00 114 01/15/17 08:00 104 01/15/17 08:00 86 Partial Non-Rebreather 15.00 100 01/15/17 07:00 126 01/15/17 07:00 94 Nasal Cannula 2.00 01/15/17 07:00 98.7 126 18 110/62 (78) 94 01/15/17 06:09 99 01/15/17 06:00 18 01/15/17 05:02 91 01/15/17 04:13 102 01/15/17 03:30 94 01/15/17 03:30 95 Nasal Cannula 1.50 01/15/17 03:30 98.4 94 17 119/61 (80) 95 01/15/17 02:04 95 01/15/17 01:55 94 Nasal Cannula 2.00 01/15/17 01:10 100 01/15/17 00:00 94 01/14/17 23:30 97.9 92 18 116/62 (80) 93 01/14/17 23:30 93 Nasal Cannula 1.50 01/14/17 23:00 95 01/14/17 22:50 18 01/14/17 22:00 100 01/14/17 21:00 88 01/14/17 20:38 94 21 01/14/17 20:27 99 Nasal Cannula 2.00 01/14/17 20:00 94 01/14/17 19:20 97.8 101 16 119/63 (81) 99 01/14/17 19:20 99 Nasal Cannula 3.00 01/14/17 19:00 92 01/14/17 18:00 92 01/14/17 17:00 92 01/14/17 16:03 84 01/14/17 16:00 98.2 99 18 101/64 (76) 100 I/O 01/14/17 01/14/17 01/14/17 01/15/17 01/15/17 01/15/17 07:00 15:00 23:00 07:00 15:00 23:00 Intake Total 890 ml 1923 ml 917 ml Output Total 1320 ml 1100 ml 675 ml Balance -430 ml 823 ml 242 ml Intake Oral 480 ml 480 ml 480 ml IV Total 1443 ml 437 ml Packed Cells 400 ml Blood Product IV Normal Saline Flush 10 ml Output Urine Total 1150 ml 900 ml 675 ml Chest Tube Drainage Total 170 ml 200 ml # Bowel Movements 0 0 Result Diagram: 01/15/1732401/15/17324 Objective Remarks GENERAL: This is an averagely built middle-aged white female who is pale. HEENT: Head normocephalic. Pupils are reactive and equal. Tongue moist. Throat is clear. Nasal mucosa dry. NECK: Supple. No bruits, thyroid enlargement or lymphadenopathy. CHEST: Distant breath sounds at the left lung base and occ crackles left chest . HEART: The heart sounds are irregular, S1-S2. No murmur. No S3. ABDOMEN: Soft and nontender. No organomegaly. Bowel sounds are active. EXTREMITIES: Edema 1+ with diminished peripheral pulses. Bilateral Foot deformity. NEUROLOGIC: Reflexes are 1+ .Sedated. SKIN: Dry and scaly. Assessment and Plan Assessment and Plan IMPRESSION 1. COPD with acute exacerbation, resolved 2. S/p decortication left Chest 3. Atelectasis left lower lobe with mucus plugging. 4. Hyponatremia. 5. Abnormal liver enzymes 6. Anemia and chronic disease. Plan : 1. Bronchoscopy with lavage . D/W . 2. Sedation with diprivan 3. Cont antibiotics. 4. Duoneb nebs tid. 5. CXR in am 6. Add Mucomyst 20 % nebs q6h. 7. Cont Lasix 20 mg daily. Venessa Chung MD Jan 15, 2017 15:35
[2017-01-15] MEDS ORDERED: RESP: ACETYLCYSTEINE 20% 30 ML NEB NEB SCH (16:00)
--- NOTE | 2017-01-15 18:50 | RADRPT ---
EXAM DATE/TIME: 01/15/2017 18:30 [facility] COMPARISON: CHEST SINGLE AP, January 15, 2017, 10:36. INDICATIONS : Evaluate NG tube placement MEDICAL HISTORY : Chronic obstructive pulmonary disease. SURGICAL HISTORY : Thoracotomy ENCOUNTER: Initial ACUITY: 4 - 6 days PAIN SCORE: Non-responsive. LOCATION: Abdomen FINDINGS: Examination of the abdomen demonstrates a nonobstructed bowel gas pattern. Stool is seen in the proxi mal descending colon. No pneumoperitoneum. Nasogastric tube is identified with the tip in the proxima l stomach. Volume loss in the left hemithorax with consolidation in the left base. 2 thoracostomy tub es project over the left hemithorax. CONCLUSION: 1. No obvious obstruction or pneumoperitoneum on this limited view of the abdomen. 2. Nasogastric tube with the tip projecting over the proximal gastric body. 3. Volume loss in the left hemithorax with stable position of 2 thoracostomy tubes and left basilar c onsolidation. . Yogesh Isbell MD on January 15, 2017 at 18:44 Board Certified Radiologist. This report was verified electronically.
[2017-01-15] MEDS: ACETYLCYSTEINE 20% NEB SCH (20:38)
[2017-01-15] MEDS: SODIUM CHLOR 0.9% 1000 ML INJ 1,000 ML IV SCH (21:00)
[2017-01-15] MEDS: PANTOPRAZOLE SOD 40 MG DELAYED RELEASE TAB PO SCH (21:00)
[2017-01-15] MEDS: FERROUS SULFATE 300 MG /5ML UDC PO SCH (21:24)
[2017-01-15] MEDS: CHLORHEXIDINE 0.12% (ORAL KIT) 15 ML CUP MT SCH (21:32)
[2017-01-15] MEDS: cefTRIAXone INJ 1,000 MG in SODIUM CHLORIDE 0.9% INJ 100 ML IV SCH (23:18)
[2017-01-16] VITALS (17 sets, daily range): BP systolic 88–125; BP diastolic 57–81; PULSE 82–113; RESP 14–20; TEMP 97.8–98.7; O2SAT 93–99
[2017-01-16] MEDS: RESP: ALBUTEROL 2.5 MG/IPRATROPIUM 0.5 MG NEB (SCH) NEB ×6 (00:43→20:20)
[2017-01-16] MEDS: ACETYLCYSTEINE 20% NEB SCH ×4 (03:47→20:20)
[2017-01-16] MEDS: methylPREDNISolone SOD SUCC 125 MG/2 ML VIAL IV PUSH SCH ×3 (04:46→20:34)
[2017-01-16 05:23] LABS: AUTOMATED NEUTROPHIL # 2.8 TH/MM3 (1.8-7.7); BASOPHIL % 0.1 % (0.0-2.0); HEMATOCRIT 22.1 % (35.0-46.0); LYMPH % 13.5 % (9.0-44.0); LYMPHOCYTE # 0.5 TH/MM3 (1.0-4.8); MEAN CELL VOLUME 102.5 FL (80.0-100.0); MEAN CORPUSCULAR HEMOGLOBIN 34.4 PG (27.0-34.0); MEAN CORPUSCULAR HGB CONC 33.6 % (32.0-36.0); MONO % 3.8 % (0.0-8.0); NEUT % 82.6 % (16.0-70.0); PLATELET COUNT 49 TH/MM3 (150-450); RED BLOOD COUNT 2.15 MIL/MM3 (4.00-5.30); RED CELL DISTRIBUTION WIDTH 20.9 % (11.6-17.2); WHITE BLOOD COUNT 3.4 TH/MM3 (4.0-11.0)
[2017-01-16 05:27] LABS: HEMO FLAGS AUTO DIFF
[2017-01-16 05:41] LABS: BICARBONATE 26.2 MEQ/L (21.0-32.0); MAGNESIUM 1.8 MG/DL (1.5-2.5); POTASSIUM 3.1 MEQ/L (3.5-5.1); TOTAL BILIRUBIN ADULT 0.6 MG/DL (0.2-1.0)
[2017-01-16] MEDS: PROPOFOL 1000 MG/100 ML INJ 100 ML IV PRN (05:49)
--- NOTE | 2017-01-16 06:28 | RADRPT ---
EXAM DATE/TIME: 01/16/2017 04:58 [facility] COMPARISON: CHEST SINGLE AP, January 15, 2017, 10:36. CHEST SINGLE AP, January 15, 2017, 10:06. CHEST SINGLE AP, January 14, 2017, 4:43. INDICATIONS : Short of breath. MEDICAL HISTORY : Chronic obstructive pulmonary disease. SURGICAL HISTORY : Thoracotomy ENCOUNTER: Subsequent ACUITY: 2 weeks PAIN SCORE: 0/10 LOCATION: Bilateral chest FINDINGS: A single view of the chest demonstrates the endotracheal tube, nasogastric tube, left chest tube and right IJ central line in good position. There is a small residual left pleural effusion. There is vol ume loss of the left lung. The right lung is clear. The cardiomediastinal contours are unremarkable. Osseous structures are intact. CONCLUSION: Marked volume loss left chest. Left chest tubes are identified both superiorly and inferiorly. Jamie Camacho MD on January 16, 2017 at 6:25 Board Certified Radiologist. This report was verified electronically.
[2017-01-16] MEDS ORDERED: POTASSIUM CHLORIDE 25 MEQ EFFERVESCENT TAB PO ONE (06:45)
--- NOTE | 2017-01-16 07:53 | HHI.CCPN ---
Subjective Remarks/Hospital Course The patient is a 56-year-old female with past medical history of COPD, who presented to [facility] ED with complaints of coughing, wheezing. The patient states that she had food poisoning last week where she had nausea and diarrhea, after she ate suspicious food. She denies any worsening of dyspnea from baseline. In addition, she denies any constitutional symptoms. She quit smoking five and a half years ago and used to smoke one to two packs per day for about 30 years. Chest x-ray in the ER showed consolidation with large effusion and volume loss on the left. On further history she denies any hemoptysis, however, she reports 20 pounds weight loss in the last 4 months and decreased p.o. intake. She is being followed up by Dr. 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 The patient denies any use of oxygen at home, however, she is on bronchodilators p.r.n. Her laboratory data is significant for hyponatremia with sodium level 125, lactic acid level 2.1. On arrival to the ER she was tachycardic and tachypneic. When seen the patient is on 4 liters nasal cannula with saturation ranges between 95-100%. In the ER she was given Rocephin, azithromycin, Solu-Medrol, bronchodilator treatment and IV fluids. Her current blood pressure is 107/61. 12/30 Patient s/p CT guided thoracentesis and CT placement by IR yesterday. She is feeling better. Subjective: 12/31 She complains of pain and requests increased pain meds. Repeat imaging ordered per pulmonology to evaluate mass vs loculated effusion. On [place]. [facility] RECONSULT NOTE 01/15/17 Critical care consulted for severe hypoxemic respiratory failure. On 01/11/17 patient had left thoracotomy for decortication, evacuation of complex loculated effusion, adhesiolysis by Dr. Gamboa. CXR 01/14/17 showed near complete whiteout of the left lung-pulmonary Dr. Ridley is following. Today a HALICAT was called as the patient was found profoundly hypoxemic in the 70s oxygen saturation. She was placed on 100% percent nonrebreather with improvement in saturation only to 81%. Stat ABG on 100% nonrebreather showed pH of 7.29 PCO2 of 62 pO2 of 53 and oxygen saturation 79%. Stat chest x-ray showed complete whiteout of the left lung. I discussed with the patient briefly, she is agreeable for intubation. I proceeded with endotracheal intubation and placed on mechanical ventilation -patient saturation gradually improved to 100%. Discussed with pulmonology Dr. Ridley. He plans to do bronchoscopy today afternoon. SUBJ 01/16: Patient had bronchoscopy by Dr. Ridley yesterday. Chest x-ray today shows improvement in aeration but still with volume loss left lower lung valera which is unchanged from the post thoracotomy chest x-rays. Wide-awake on vent tolerating CPAP will proceed with weaning trials Objective Vital Signs Date Time Temp Pulse Resp B/P (MAP) Pulse Ox O2 Delivery O2 Flow Rate FiO2 01/16/17 07:38 99 40 01/16/17 07:37 98.7 106 14 117/75 (89) 01/16/17 07:34 Mechanical Ventilator 01/15/17 08:00 15.00 Intake and Output 01/16/17 01/16/17 01/17/17 08:00 16:00 00:00 Intake Total 1372 ml Output Total 380 ml Balance 992 ml Result Diagram: 01/16/17 0600 01/16/17 0445 Other Results Laboratory Tests Test 01/15/17 09:49 01/15/17 11:20 Blood Gas Puncture Site RT RADIAL LT RADIAL Blood Gas Patient Temperature 98.6 98.6 Blood Gas HCO3 29 mmol/L (22-26) 28 mmol/L (22-26) Blood Gas Base Excess 2.6 mmol/L (-2-2) 2.8 mmol/L (-2-2) Blood Gas Oxygen Saturation 79 % (90-100) 96 % (90-100) Arterial Blood pH 7.29 (7.380-7.420) 7.37 (7.380-7.420) Arterial Blood Partial Pressure CO2 62 mmHg (38-42) 48 mmHg (38-42) Arterial Blood Partial Pressure O2 53 mmHg (61-120) 128 mmHg (61-120) Arterial Blood Oxygen Content 10.0 Vol % (12.0-20.0) 11.3 Vol % (12.0-20.0) Arterial Blood Carboxyhemoglobin 1.7 % (0-4) 1.5 % (0-4) Arterial Blood Methemoglobin 1.1 % (0-2) 1.1 % (0-2) Blood Gas Hemoglobin 9.0 G/DL (12.0-16.0) 8.2 G/DL (12.0-16.0) Oxygen Delivery Device NRB VENTILATOR Blood Gas Inspired Oxygen 100 % 45 % Blood Gas Ventilator Setting PRVC/AC 400/16 Imaging Last Impressions Chest Tube Insertion 12/29/16 1224 Signed Impressions: Service Date/Time: December 13:22 - CONCLUSION: Uncomplicated CT-guided thoracentesis. David Mora MD Chest X-Ray 12/29/16 1003 Signed Impressions: Service Date/Time: December 10:24 - CONCLUSION: Combination of extensive consolidation, large effusion and volume loss on the left. Man Mdcaniels MD Chest CT 12/29/16 0000 Signed Impressions: Service Date/Time: , December 29, 2016 13:07 - CONCLUSION: 1. Either highly complex fluid or soft tissue mass involving the left lung base with mass effect. This measures 12.2 x 12.6 x 7.4 cm. An ultrasound canal differentiate. 2. 7 mm nodule on the left upper lobe. 3. Material filling the left mainstem bronchus either related to purulent material or mucus. There is resulting volume loss of the entire left lung. 4. 4.4 cm ascending aortic aneurysm. Art Tate Jr., MD Objective Remarks GENERAL: Patient is 56 yo female who is intubated and awake follows commands SKIN: Warm and dry. HEAD: Normocephalic. EYES: No scleral icterus. No injection or drainage. NECK: Supple, trachea midline. No JVD or lymphadenopathy. CARDIOVASCULAR: Regular rate and rhythm with 3/6 systolic murmur in all areas, predominantly L and R upper sternal borders RESPIRATORY: Diminished breath sounds on the left. L chest tube to suction draining 360 ml blood tinged fluid in last 24 hours. GASTROINTESTINAL: Abdomen soft, non-tender, nondistended. Bowel sounds present. MUSCULOSKELETAL: No cyanosis. Trace edema NEURO: Awake and alert, moving all extremities with no focal deficit. Follows commands x4 Procedures CT guided thoracentesis with L chest tube placement 12/29 Left thoracoscopic exploration, left thoracotomy for decortication, evacuation of complex loculated effusion, adhesiolysis 01/11/17 A/P Problem List: (1) Acute hypoxemic respiratory failure ICD Code: J96.01 - Acute respiratory failure with hypoxia (2) Atelectasis of left lung ICD Code: J98.11 - Atelectasis (3) Pleural effusion on left ICD Code: J90 - Pleural effusion, not elsewhere classified Status: Acute (4) Pain ICD Code: R52 - Pain, unspecified Status: Acute (5) Tobacco abuse ICD Code: Z72.0 - Tobacco use Status: Chronic (6) COPD (chronic obstructive pulmonary disease) ICD Code: J44.9 - Chronic obstructive pulmonary disease, unspecified Status: Chronic (7) Hyponatremia ICD Code: E87.1 - Hypo-osmolality and hyponatremia Status: Acute (8) Respiratory distress ICD Code: R06.00 - Dyspnea, unspecified Status: Resolved (9) UTI (urinary tract infection) ICD Code: N39.0 - Urinary tract infection, site not specified Status: Acute (10) Physical deconditioning ICD Code: R53.81 - Other malaise Status: Chronic Assessment and Plan ASSESSMENT Acute hypoxemic respiratory failure Complete left lung atelectasis Left-sided consolidation with pleural effusion Left thoracotomy with decortication, evacuation of complex loculated effusion, adhesiolysis Pulmonary hypertension COPD exacerbation Hyponatremia/hypophosphatemia Hypokalemia. Urinary tract infection on abx PLAN: Neuro: Hold propofol and reduce fentanyl to facilitate weaning trials Pain control with fentanyl Pulm: Acute hypoxemic respiratory failure Complete L lung atelectasis S/p decortication for L hemothorax COPD Tobacco abuse ?L lung mass vs loculated effusion/ Emergently intubated and placed on mechanical ventilation 01/15 s/p Bronchoscopy by Dr. Chung. Left lung valera reexpanded, persistent volume loss involving left lower lung field Start weaning trials with possible extubation Status post left thoracotomy and decortication 01/11/17-postop diagnosis was hemothorax Bronchodilators, Solumedrol 60 mg IV q8 hours s/p CT guided left-sided thoracentesis and CT placement by IR 12/29/16 CT chest: Either highly complex fluid or soft tissue mass involving the left lung base with mass effect. This measures 12.2 x 12.6 x 7.4 cm. 4.4 cm ascending aortic aneurysm. CV: Pulmonary hypertension, most likely secondary from chronic hypoxia by echo Moderate aortic stenosis mild to moderate aortic regurgitation Monitor HR and BP and maintain MAP>65mmHg Echo 12/30 - systolic function grossly normal. Moderate /AI. Moderate to severe pulmonary hypertension.. GI: Nothing by mouth Tube feeds if not extubated : Hyponatremia ?chronic but chronicity not truly known Hypokalemia, resolved ID: UTI Possible pneumonia Continue Rocephin for now UTI present on admission with culture positive for pansensitive Klebsiella. Influenza screen, blood and pleural fluid cultures negative to date. Temporal fluid studies from January 11, on cultures negative to date Endo: SSI with Accu-Cheks for glycemic control. Heme: Macrocytic anemia Anemia of chronic disease and iron deficiency Monitor CBC. Normal B12, Supplement iron due to her lab findings consistent with iron deficiency DVT prophylaxis with SCDs. Lovenox 40 mg sq daily. IV Famotidine 20 mg IV q12h Level 2 Problem Qualifiers (1) COPD (chronic obstructive pulmonary disease): Qualified Codes: J43.1 - Panlobular emphysema zAeb Conway MD Jan 16, 2017 07:53
[2017-01-16] MEDS: CHLORHEXIDINE 0.12% (ORAL KIT) 15 ML CUP MT SCH ×2 (08:00→19:39)
[2017-01-16] MEDS: MORPHINE SULFATE 30 MG/30 ML PCA IV SCH ×2 (08:12→08:13)
[2017-01-16] MEDS ORDERED: MAGNESIUM SULFATE 1 GM PREMIX 100 ML IV ONE (08:45)
[2017-01-16] MEDS: SODIUM CHLORIDE 0.9% FLUSH 5 ML FLUSH IV FLUSH SCH ×2 (09:00→20:35)
[2017-01-16] MEDS: FERROUS SULFATE 300 MG /5ML UDC PO SCH (09:05)
[2017-01-16] MEDS: LACTULOSE SYRUP 20 GM/30 ML CUP NG SCH (09:05)
[2017-01-16] MEDS: DOCUSATE SODIUM 100 MG CAP PO SCH ×2 (09:06→20:34)
[2017-01-16] MEDS: POLYETHYLENE GLYCOL 17 GM PKG PO SCH (09:06)
[2017-01-16] MEDS: NIFEdipine 30 MG SUSTAINED RELEASE TAB PO SCH (09:06)
[2017-01-16] MEDS: POTASSIUM CHLORIDE 10 MEQ CONTROLLED RELEASE TAB PO SCH (09:06)
[2017-01-16 10:26] LABS: PLATELET ESTIMATE SMEAR LOW (NORMAL); PLATELET MORPHOLOGY NORMAL (NORMAL); SCAN/DIFF AUTO DIFF CONFIRMED
[2017-01-16] MEDS ORDERED: SODIUM CHLOR 0.9% 250 ML INJ 250 ML IV ONE (10:30)
[2017-01-16] MEDS ORDERED: SODIUM CHLORID 0.9% 500 ML INJ 500 ML IV ONE ×2 (13:15→17:30)
--- NOTE | 2017-01-16 19:23 | HHI.PR ---
Subjective Remarks S/P thoracotomy and decortication . Has a chest tube in place. Seems better today and was weaned off the vent . Was extubated today and C XR showed improved aeration on left No fever. Objective Vital Signs Date Time Temp Pulse Resp B/P (MAP) Pulse Ox O2 Delivery O2 Flow Rate FiO2 01/16/17 15:00 99 01/16/17 15:00 97 Room Air 01/16/17 15:00 97.9 98 20 113/77 (89) 99 01/16/17 11:25 98 Nasal Cannula 3.00 01/16/17 11:04 106 01/16/17 11:03 100 Nasal Cannula 3.00 01/16/17 11:02 98.1 106 19 125/79 (94) 99 01/16/17 08:15 100 Nasal Cannula 3.00 01/16/17 08:13 16 01/16/17 08:10 96 Nasal Cannula 3 01/16/17 07:38 99 40 01/16/17 07:37 98.7 106 14 117/75 (89) 99 01/16/17 07:36 103 01/16/17 07:34 40 01/16/17 07:34 99 Mechanical Ventilator 40 01/16/17 07:00 Nasal Cannula 40 01/16/17 03:56 82 01/16/17 03:52 98.0 87 14 124/81 (95) 99 01/16/17 03:47 99 40 01/16/17 03:30 40 01/16/17 03:30 99 Mechanical Ventilator 40 01/16/17 00:43 99 40 01/15/17 23:30 40 01/15/17 23:30 99 Mechanical Ventilator 40 01/15/17 23:30 79 01/15/17 23:30 98.1 89 22 107/66 (80) 99 01/15/17 23:06 100 40 01/15/17 20:15 99 40 01/15/17 19:45 40 01/15/17 19:45 78 01/15/17 19:45 99 Mechanical Ventilator 40 01/15/17 19:45 99.1 89 14 84/56 (65) 99 I/O 01/15/17 01/15/17 01/15/17 01/16/17 01/16/17 01/16/17 07:00 15:00 23:00 07:00 15:00 23:00 Intake Total 917 ml 1348 ml 1372 ml 850 ml 880 ml Output Total 675 ml 1555 ml 380 ml 340 ml Balance 242 ml -207 ml 992 ml 850 ml 540 ml Intake Oral 480 ml 0 ml 300 ml IV Total 437 ml 1348 ml 1312 ml 850 ml 500 ml Tube Irrigant 60 ml 80 ml Output Urine Total 675 ml 1275 ml 300 ml 250 ml Gastric Drainage Total 0 ml 0 ml Chest Tube Drainage Total 280 ml 80 ml 90 ml # Bowel Movements 0 0 Result Diagram: 01/16/17 0600 01/16/17 0445 Objective Remarks GENERAL: This is an averagely built middle-aged white female who is alert HEENT: Head normocephalic. Pupils are reactive and equal. Tongue moist. Throat is clear. Nasal mucosa dry. NECK: Supple. No bruits, thyroid enlargement or lymphadenopathy. CHEST: Distant breath sounds at the left lung base and occ crackles left chest . HEART: The heart sounds are irregular, S1-S2. No murmur. No S3. ABDOMEN: Soft and nontender. No organomegaly. Bowel sounds are active. EXTREMITIES: Edema 1+ with diminished peripheral pulses. Bilateral Foot deformity. NEUROLOGIC: Reflexes are 1+ . No deficits SKIN: Dry and scaly. Assessment and Plan Assessment and Plan IMPRESSION 1. COPD with acute exacerbation, resolved 2. S/p decortication left Chest 3. Atelectasis left lower lobe with mucus plugging. 4. Hyponatremia. 5. Abnormal liver enzymes 6. Anemia and chronic disease. Plan : 1. O2 3 L. 2. IS at bedside q3h 3. Cont antibiotics. 4. Duoneb nebs tid. 5. CXR , CBC in am 6. Mucomyst 20 % nebs q6h. 7. Cont Lasix 20 mg daily. Venessa Chung MD Jan 16, 2017 19:23
--- NOTE | 2017-01-16 19:31 | EKG ---
Date Performed: 01/15/2017 Time Performed: 09:58:50 PTAGE: 56 years EKG: Sinus tachycardia. Lateral T wave changes are nonspecific Borderline ECG PREVIOUS TRACING 01/10/2017 21.20 Since previous tracing, no significant change noted DOCTOR: Andrea Cintron Interpretating Date/Time 01/16/2017 19:29:43
[2017-01-16] MEDS: oxyCODONE/ACETAMINOPHEN 7.5 MG/325 MG TAB PO PRN (20:34)
[2017-01-16] MEDS: PANTOPRAZOLE SOD 40 MG DELAYED RELEASE TAB PO SCH (20:34)
[2017-01-16] MEDS: FERROUS SULFATE 325 MG (65 MG ELEMENTAL IRON) TAB PO SCH (20:35)
[2017-01-16] MEDS: SODIUM CHLOR 0.9% 1000 ML INJ 1,000 ML IV SCH (20:44)
[2017-01-16] MEDS: cefTRIAXone INJ 1,000 MG in SODIUM CHLORIDE 0.9% INJ 100 ML IV SCH (23:27)
[2017-01-17] VITALS (20 sets, daily range): BP systolic 89–114; BP diastolic 58–76; PULSE 78–120; RESP 16–24; TEMP 97.7–98.3; O2SAT 95–99
[2017-01-17] MEDS: RESP: ALBUTEROL 2.5 MG/IPRATROPIUM 0.5 MG NEB (SCH) NEB ×6 (01:06→19:51)
[2017-01-17] MEDS: oxyCODONE/ACETAMINOPHEN 7.5 MG/325 MG TAB PO PRN ×4 (02:19→21:39)
[2017-01-17] MEDS: SENNOSIDES 8.6 MG TAB PO PRN (02:19)
[2017-01-17] MEDS ORDERED: ALBUMIN 5% INJ 500 ML IV ONE (03:45)
[2017-01-17] MEDS: ACETYLCYSTEINE 20% NEB SCH ×2 (04:25→17:36)
[2017-01-17] MEDS: methylPREDNISolone SOD SUCC 125 MG/2 ML VIAL IV PUSH SCH ×3 (04:29→21:38)
[2017-01-17 04:56] LABS: AUTOMATED NEUTROPHIL # 2.8 TH/MM3 (1.8-7.7); LYMPH % 10.5 % (9.0-44.0); LYMPHOCYTE # 0.3 TH/MM3 (1.0-4.8); MEAN CELL VOLUME 103.4 FL (80.0-100.0); MEAN CORPUSCULAR HEMOGLOBIN 35.1 PG (27.0-34.0); MEAN CORPUSCULAR HGB CONC 33.9 % (32.0-36.0); MONO % 4.9 % (0.0-8.0); NEUT % 84.6 % (16.0-70.0); PLATELET COUNT 45 TH/MM3 (150-450); RED BLOOD COUNT 1.99 MIL/MM3 (4.00-5.30); RED CELL DISTRIBUTION WIDTH 21.8 % (11.6-17.2); WHITE BLOOD COUNT 3.3 TH/MM3 (4.0-11.0)
[2017-01-17 05:27] LABS: HEMO FLAGS AUTO DIFF
[2017-01-17 05:30] LABS: HEMATOCRIT 20.5 % (35.0-46.0)
[2017-01-17 05:44] LABS: ALT (GPT) 19 U/L (10-53); ANION GAP 6 MEQ/L (5-15); AST (GOT) 19 U/L (15-37); BICARBONATE 28.1 MEQ/L (21.0-32.0); BLOOD UREA NITROGEN 9 MG/DL (7-18); CHLORIDE 102 MEQ/L (98-107); GLOMERULAR FILTRATION RATE 160 ML/MIN (>89); MAGNESIUM 2.1 MG/DL (1.5-2.5); POTASSIUM 3.6 MEQ/L (3.5-5.1); SODIUM (NA) 136 MEQ/L (136-145)
[2017-01-17 05:46] LABS: ALKALINE PHOSPHATASE 123 U/L (45-117); TOTAL BILIRUBIN ADULT 0.4 MG/DL (0.2-1.0)
--- NOTE | 2017-01-17 06:49 | MB ---
cc: AMENA JONES ABDUL J. M.D. DATE OF CONSULTATION 01/16/2017 REASON FOR CONSULTATION Consult requested by switch cleaner, Dr. Jones, for evaluation of pancytopenia with macrocytosis. HISTORY OF PRESENT ILLNESS Alicia is a pleasant 56-year-old female. She has a history of cigarette smoking which she quit about 5 years ago. She has developed COPD and she is under the care of Dr. Chung. The patient was admitted to the hospital with cough and shortness of breath. The workup revealed highly complex fluid or soft tissue mass involving the left lung base with mass effect. This measures 12.2 cm. The patient was admitted to the hospital. She initially underwent thoracentesis and the cytology was negative. Subsequently the patient underwent thoracotomy and decortication. The pathology of the pleura is benign with no malignancy noted. The patient was doing fine up until yesterday. She went into respiratory failure requiring intubation. She had a bronchoscopy by Dr. Chung yesterday. The patient was extubated today. I have been asked to see the patient for pancytopenia with macrocytosis and normal B12. The patient denies any previous history of pancytopenia. She stated that when she was in [place] she was in the hospital due to diarrhea and nausea and abdominal pain. She does not recall whether her blood counts were low at that time. She denies any bleeding episodes. Her appetite is okay. She has been complaining of shortness of breath and cough. PAST MEDICAL HISTORY COPD. PAST SURGICAL HISTORY None. ALLERGIES None. MEDICATIONS Please see EMR. FAMILY HISTORY Father from lung cancer. SOCIAL HISTORY The patient used to smoke cigarettes one to two packs a day for 30 years, quit 5 years ago. She drinks alcohol occasionally. PHYSICAL EXAMINATION GENERAL: This a well-developed, well-nourished white female in no apparent distress. VITAL SIGNS: Temperature 98.2, heart rate is 113, blood pressure 102/70, O2 suture saturation 93%. HEENT: PERRLA. EOMI. Anicteric. No oral lesions are noted. NECK: Supple. LYMPHATICS: There is no cervical, supraclavicular or axillary lymphadenopathy noted. LUNGS: Decreased breath sounds on both sides. HEART: Tachycardic with no murmur. ABDOMEN: Soft, nontender. EXTREMITIES: No pedal edema. NEUROLOGY: Awake, alert, oriented x 3. SKIN: No significant lesions noted. ASSESSMENT Pancytopenia with macrocytosis and normal B12. I suspect that she has myelodysplastic syndrome until proven otherwise. PLAN I have reviewed her available records and I had an extensive discussion with the patient regarding the pancytopenia. She has macrocytosis. The B12 is normal. I suspect that she has myelodysplastic syndrome and I recommended bone marrow aspirate and biopsy. However, the patient has declined the bone marrow biopsy at this time. She states that she has been through a lot. She recently underwent thoracotomy and decortication. Yesterday she went on the ventilator and today she was extubated. She stated she needs more time to recover from this. She does not want to go through the bone marrow biopsy at this time. I will check the serum folate to evaluate for any folate deficiency. The iron studies are consistent with anemia of chronic disease but I will check the serum ferritin. Her serum iron is low at 21, TIBC is low at 134 and iron saturation is 15.6. This is not due to iron deficiency. In iron deficiency I expect the TIBC to be high but her TIBC is low but we need to check the serum ferritin as well. Her serum B12 is 500. TSH is 3.8. I recommend to monitor her CBC and give her blood transfusion if the hemoglobin is less than 8 and platelet transfusion if the platelet count is less than 15 or any bleeding . Thank you for asking my opinion. MD JERRELL Rosario/KENNETH /9:49 PM /6:41 AM NAVEEN
[2017-01-17] MEDS: CHLORHEXIDINE 0.12% (ORAL KIT) 15 ML CUP MT SCH ×2 (08:00→19:23)
--- NOTE | 2017-01-17 08:09 | MR ---
cc: Venessa CHUNG M.D. DATE: 01/15/2017 PROCEDURE PERFORMED: Fiberoptic bronchoscopy with bronchial lavage and therapeutic aspiration for complete atelectasis left lung. POSTOPERATIVE DIAGNOSIS: Fiberoptic bronchoscopy with bronchial lavage and therapeutic aspiration for complete atelectasis left lung. PROCEDURE PERFORMED: Fiberoptic bronchoscopy. ANESTHESIA IV propofol and intubation. SURGEON: Man Chung MD. DESCRIPTION OF THE PROCEDURE AND FINDINGS: The patient was already intubated with a size #8 endotracheal tube and the Olympus IT-180 bronchoscope was used to visualize the bronchi. The scope was advanced via the endotracheal tube into the trachea. The trachea and alethea appeared normal. The scope was then advanced into the left mainstem and left upper lobe segmental bronchi. There were thick mucoid secretions noted here occluding the bronchial lumen which were suctioned out and saline washings were done. The left upper lobe bronchi demonstrated mild endobronchitis but no endobronchial lesions were seen. Saline washings and lavage were carried out until clear. The scope was also advanced into the left lower lobe segmental bronchi which had thick mucoid secretions with mucous plugs; these were suctioned out. Saline washings and lavage were done until clear. There was mild endobronchitis with mucosal edema but no endobronchial mass was seen. Washings were done and the mucous plugs were dislodged and aspirated and saline lavage was carried out until clear. The scope was also advanced into the right mainstem and right upper lobe segmental bronchi, which demonstrated a few mucoid secretions and these were suctioned out. The right middle and right lower lobe segmental bronchi were visualized. These bronchi demonstrated mucoid secretions with mild endobronchitis and there were a few mucous plugs and these were suctioned out and saline washings and lavage were done. The procedure was then terminated. The patient tolerated the procedure well. MD MADDY Johnston/FLORIN /3:36 PM /8:13 AM
[2017-01-17 08:22] LABS: SCAN/DIFF AUTO DIFF CONFIRMED
[2017-01-17 08:23] LABS: PLATELET ESTIMATE SMEAR LOW (NORMAL); PLATELET MORPHOLOGY NORMAL (NORMAL)
[2017-01-17] MEDS: NIFEdipine 30 MG SUSTAINED RELEASE TAB PO SCH (08:32)
[2017-01-17] MEDS: DOCUSATE SODIUM 100 MG CAP PO SCH ×2 (08:32→21:39)
[2017-01-17] MEDS: FERROUS SULFATE 325 MG (65 MG ELEMENTAL IRON) TAB PO SCH ×2 (08:32→21:38)
[2017-01-17] MEDS: LACTULOSE SYRUP 20 GM/30 ML CUP NG SCH (08:32)
[2017-01-17] MEDS: POTASSIUM CHLORIDE 10 MEQ CONTROLLED RELEASE TAB PO SCH (08:32)
[2017-01-17] MEDS: SODIUM CHLORIDE 0.9% FLUSH 5 ML FLUSH IV FLUSH SCH ×2 (08:32→21:00)
[2017-01-17] MEDS: POLYETHYLENE GLYCOL 17 GM PKG PO SCH (08:32)
[2017-01-17] MEDS ORDERED: FUROSEMIDE 40 MG/4 ML VIAL ONE (09:04)
--- NOTE | 2017-01-17 09:38 | RADRPT ---
EXAM DATE/TIME: 01/17/2017 09:04 [facility] COMPARISON: CHEST SINGLE AP, January 16, 2017, 4:58. INDICATIONS : Atelectasis. MEDICAL HISTORY : Chronic obstructive pulmonary disease. SURGICAL HISTORY : Thoracotamy ENCOUNTER: Initial ACUITY: 2 weeks PAIN SCORE: 0/10 LOCATION: Bilateral chest FINDINGS: The heart is mildly enlarged. There is a chest tube in place on the left. There is left pleural effus ion and consolidation. The central venous catheter on the right is in satisfactory position. The ET t ube has been removed. When compared to previous study there appears to be more atelectasis and effusi on in the left lung than previous. There is mild hyperinflation of the right lung. CONCLUSION: 1. Increasing atelectasis/consolidation of the left lung. 2. Left chest tube and central venous catheter in good position. 3. The ET tube has been removed Stew Lindsay MD on January 17, 2017 at 9:32 Board Certified Radiologist. This report was verified electronically.
--- NOTE | 2017-01-17 10:41 | HHI.PR ---
Subjective Remarks The patient is a 56-year-old female with past medical history of COPD, who presented to [facility] ED with complaints of coughing, wheezing. The patient states that she had food poisoning last week where she had nausea and diarrhea, after she ate suspicious food. She denies any worsening of dyspnea from baseline. In addition, she denies any constitutional symptoms. She quit smoking five and a half years ago and used to smoke one to two packs per day for about 30 years. Chest x-ray in the ER showed consolidation with large effusion and volume loss on the left. On further history she denies any hemoptysis, however, she reports 20 pounds weight loss in the last 4 months and decreased p.o. intake. She is being followed up by Dr. Chung her outpatient epic interface analyst. The patient denies any use of oxygen at home, however, she is on bronchodilators p.r.n. Her laboratory data is significant for hyponatremia with sodium level 125, lactic acid level 2.1. On arrival to the ER she was tachycardic and tachypneic. When seen the patient is on 4 liters nasal cannula with saturation ranges between 95-100%. In the ER she was given Rocephin, azithromycin, Solu-Medrol, bronchodilator treatment and IV fluids. Her current blood pressure is 107/61. 12/30 Patient s/p CT guided thoracentesis and CT placement by IR yesterday. She is feeling better. Subjective: 12/31 She complains of pain and requests increased pain meds. Repeat imaging ordered per pulmonology to evaluate mass vs loculated effusion. On NC. [facility] RECONSULT NOTE 01/15/17 Critical care consulted for severe hypoxemic respiratory failure. On 01/11/17 patient had left thoracotomy for decortication, evacuation of complex loculated effusion, adhesiolysis by Dr. Gamboa. CXR 01/14/17 showed near complete whiteout of the left lung-pulmonary Dr. Ridley is following. Today a HALICAT was called as the patient was found profoundly hypoxemic in the 70s oxygen saturation. She was placed on 100% percent nonrebreather with improvement in saturation only to 81%. Stat ABG on 100% nonrebreather showed pH of 7.29 PCO2 of 62 pO2 of 53 and oxygen saturation 79%. Stat chest x-ray showed complete whiteout of the left lung. I discussed with the patient briefly, she is agreeable for intubation. I proceeded with endotracheal intubation and placed on mechanical ventilation -patient saturation gradually improved to 100%. Discussed with pulmonology Dr. Ridley. He plans to do bronchoscopy today afternoon. SUBJ 01/16: Patient had bronchoscopy by Dr. Ridley yesterday. Chest x-ray today shows improvement in aeration but still with volume loss left lower lung valera which is unchanged from the post thoracotomy chest x-rays. Wide-awake on vent tolerating CPAP will proceed with weaning trials 01-17 TRANSFERRED BACK TO OUR SERVICE EXTUBATED YESTERDAY GETTING BLOOD 1 UNIT PRBC TODAY PT AND OT DW RN AND PT LESS SOB THAN YESTERDAY Objective Vitals Vital Signs Date Time Temp Pulse Resp B/P (MAP) Pulse Ox O2 Delivery O2 Flow Rate FiO2 01/17/17 08:37 98.2 104 16 104/62 01/17/17 08:36 98.2 106 20 104/68 01/17/17 08:31 95 Nasal Cannula 2.00 01/17/17 08:31 20 01/17/17 08:26 97.9 110 20 114/76 95 01/17/17 07:23 95 Nasal Cannula 2.00 01/17/17 07:22 104 01/17/17 07:20 97.9 120 24 107/74 (85) 95 01/17/17 03:19 85 01/17/17 03:07 98.3 78 16 89/58 (68) 99 01/17/17 03:07 99 Nasal Cannula 01/16/17 23:42 97.8 91 16 88/57 (67) 99 01/16/17 23:42 99 Nasal Cannula 01/16/17 23:30 88 01/16/17 21:58 99 Nasal Cannula 2.00 01/16/17 21:29 97 Nasal Cannula 2.00 01/16/17 21:15 87 Nasal Cannula 2.00 01/16/17 19:49 98.2 113 18 102/70 (81) 93 01/16/17 19:49 93 Room Air 01/16/17 19:00 105 01/16/17 15:00 99 01/16/17 15:00 97 Room Air 01/16/17 15:00 97.9 98 20 113/77 (89) 99 01/16/17 11:25 98 Nasal Cannula 3.00 01/16/17 11:04 106 01/16/17 11:03 100 Nasal Cannula 3.00 01/16/17 11:02 98.1 106 19 125/79 (94) 99 I/O 01/16/17 01/16/17 01/16/17 01/17/17 01/17/17 01/17/17 07:00 15:00 23:00 07:00 15:00 23:00 Intake Total 1372 ml 850 ml 880 ml 420 ml 510 ml Output Total 380 ml 340 ml 750 ml Balance 992 ml 850 ml 540 ml -330 ml 510 ml Intake Oral 0 ml 300 ml 420 ml IV Total 1312 ml 850 ml 500 ml 500 ml Blood Product IV Normal Saline Flush 10 ml Tube Irrigant 60 ml 80 ml Output Urine Total 300 ml 250 ml 750 ml Gastric Drainage Total 0 ml 0 ml Chest Tube Drainage Total 80 ml 90 ml # Bowel Movements 0 0 0 Result Diagram: 01/17/17 0418 01/17/17 0418 Other Results Laboratory Tests Test 01/15/17 03:25 01/15/17 09:49 01/15/17 11:20 01/15/17 12:50 White Blood Count 5.1 TH/MM3 Red Blood Count 2.26 MIL/MM3 Hemoglobin 7.9 GM/DL Hematocrit 23.0 % Mean Corpuscular Volume 101.8 FL Mean Corpuscular Hemoglobin 35.1 PG Mean Corpuscular Hemoglobin Concent 34.5 % Red Cell Distribution Width 21.5 % Platelet Count 55 TH/MM3 Mean Platelet Volume 8.9 FL Neutrophils (%) (Auto) 61.8 % Lymphocytes (%) (Auto) 26.3 % Monocytes (%) (Auto) 10.7 % Eosinophils (%) (Auto) 0.7 % Basophils (%) (Auto) 0.5 % Neutrophils # (Auto) 3.2 TH/MM3 Lymphocytes # (Auto) 1.3 TH/MM3 Monocytes # (Auto) 0.5 TH/MM3 Eosinophils # (Auto) 0.0 TH/MM3 Basophils # (Auto) 0.0 TH/MM3 CBC Comment DIFF FINAL Differential Comment Reticulocyte Count 2.1 % Absolute Reticulocyte Count 48.0 MIL/L Blood Urea Nitrogen 7 MG/DL Creatinine 0.25 MG/DL Random Glucose 77 MG/DL Total Protein 4.6 GM/DL Albumin 1.9 GM/DL Calcium Level 7.5 MG/DL Alkaline Phosphatase 134 U/L Aspartate Amino Transf (AST/SGOT) 21 U/L Alanine Aminotransferase (ALT/SGPT) 13 U/L Total Bilirubin 0.5 MG/DL Sodium Level 135 MEQ/L Potassium Level 3.5 MEQ/L Chloride Level 99 MEQ/L Carbon Dioxide Level 31.7 MEQ/L Anion Gap 4 MEQ/L Estimat Glomerular Filtration Rate 284 ML/MIN Vitamin B12 Level 500 PG/ML Blood Gas Puncture Site RT RADIAL LT RADIAL Blood Gas Patient Temperature 98.6 98.6 Blood Gas HCO3 29 mmol/L 28 mmol/L Blood Gas Base Excess 2.6 mmol/L 2.8 mmol/L Blood Gas Oxygen Saturation 79 % 96 % Arterial Blood pH 7.29 7.37 Arterial Blood Partial Pressure CO2 62 mmHg 48 mmHg Arterial Blood Partial Pressure O2 53 mmHg 128 mmHg Arterial Blood Oxygen Content 10.0 Vol % 11.3 Vol % Arterial Blood Carboxyhemoglobin 1.7 % 1.5 % Arterial Blood Methemoglobin 1.1 % 1.1 % Blood Gas Hemoglobin 9.0 G/DL 8.2 G/DL Oxygen Delivery Device NRB VENTILATOR Blood Gas Inspired Oxygen 100 % 45 % Blood Gas Ventilator Setting PRVC/AC 400/16 Iron Level 21 MCG/DL Total Iron Binding Capacity 134 MCG/DL Percent Iron Saturation 15.6 % Thyroid Stimulating Hormone 3rd Gen 3.800 uIU/ML Test 01/16/17 04:45 01/16/17 06:00 01/17/17 04:18 Blood Urea Nitrogen 7 MG/DL 9 MG/DL Creatinine 0.29 MG/DL 0.41 MG/DL Random Glucose 94 MG/DL 131 MG/DL Total Protein 4.2 GM/DL 4.2 GM/DL Albumin 1.7 GM/DL 1.8 GM/DL Calcium Level 7.3 MG/DL 7.7 MG/DL Magnesium Level 1.8 MG/DL 2.1 MG/DL Alkaline Phosphatase 118 U/L 123 U/L Aspartate Amino Transf (AST/SGOT) 20 U/L 19 U/L Alanine Aminotransferase (ALT/SGPT) 15 U/L 19 U/L Total Bilirubin 0.6 MG/DL 0.4 MG/DL Sodium Level 136 MEQ/L 136 MEQ/L Potassium Level 3.1 MEQ/L 3.6 MEQ/L Chloride Level 98 MEQ/L 102 MEQ/L Carbon Dioxide Level 26.2 MEQ/L 28.1 MEQ/L Anion Gap 12 MEQ/L 6 MEQ/L Estimat Glomerular Filtration Rate 239 ML/MIN 160 ML/MIN Protein Corrected Calcium 9.0 MG/DL Ferritin 418 NG/ML Folate 3.9 NG/ML White Blood Count 3.4 TH/MM3 3.3 TH/MM3 Red Blood Count 2.15 MIL/MM3 1.99 MIL/MM3 Hemoglobin 7.4 GM/DL 7.0 GM/DL Hematocrit 22.1 % 20.5 % Mean Corpuscular Volume 102.5 FL 103.4 FL Mean Corpuscular Hemoglobin 34.4 PG 35.1 PG Mean Corpuscular Hemoglobin Concent 33.6 % 33.9 % Red Cell Distribution Width 20.9 % 21.8 % Platelet Count 49 TH/MM3 45 TH/MM3 Mean Platelet Volume 8.9 FL 9.4 FL Neutrophils (%) (Auto) 82.6 % 84.6 % Lymphocytes (%) (Auto) 13.5 % 10.5 % Monocytes (%) (Auto) 3.8 % 4.9 % Eosinophils (%) (Auto) 0.0 % 0.0 % Basophils (%) (Auto) 0.1 % 0.0 % Neutrophils # (Auto) 2.8 TH/MM3 2.8 TH/MM3 Lymphocytes # (Auto) 0.5 TH/MM3 0.3 TH/MM3 Monocytes # (Auto) 0.1 TH/MM3 0.2 TH/MM3 Eosinophils # (Auto) 0.0 TH/MM3 0.0 TH/MM3 Basophils # (Auto) 0.0 TH/MM3 0.0 TH/MM3 CBC Comment AUTO DIFF AUTO DIFF Differential Comment AUTO DIFF CONFIRMED AUTO DIFF CONFIRMED Platelet Estimate LOW LOW Platelet Morphology Comment NORMAL NORMAL Target Cells Phosphorus Level 1.9 MG/DL Lactic Acid Level 0.7 mmol/L Random Cortisol 11.9 MCG/DL Imaging Last Impressions Chest X-Ray 01/17/17 0000 Signed Impressions: Service Date/Time: Tuesday, January 17, 2017 09:04 - CONCLUSION: 1. Increasing atelectasis/consolidation of the left lung. 2. Left chest tube and central venous catheter in good position. 3. The ET tube has been removed Stew Lindsay MD Abdomen X-Ray 01/15/17 1820 Signed Impressions: Service Date/Time: Sunday, January 15, 2017 18:30 - CONCLUSION: 1. No obvious obstruction or pneumoperitoneum on this limited view of the abdomen. 2. Nasogastric tube with the tip projecting over the proximal gastric body. 3. Volume loss in the left hemithorax with stable position of 2 thoracostomy tubes and left basilar consolidation. . Yogesh Isbell MD Chest CT 12/31/16 0000 Signed Impressions: Service Date/Time: Saturday, December 31, 2016 14:44 - CONCLUSION: 1. Interval placement of left-sided chest tube with slight decrease in the complex low-density fluid collection in the lower left hemithorax. 2. Volume loss remains in the left hemithorax with consolidation in the left infrahilar region 3. New small right pleural effusion and consolidation in the right posterior lower lobe 4. The previously noted fluid and debris in the left mainstem bronchus is no longer present. Kashif Garcia MD Chest Ultrasound 12/30/16 0000 Signed Impressions: Service Date/Time: Friday, December 30, 2016 09:59 - CONCLUSION: No focal collections of anechoic free fluid. Prominent amount of heterogeneous echotexture material surrounding the left lower chest. Art Willard MD Chest Tube Insertion 12/29/16 1224 Signed Impressions: Service Date/Time: December 13:22 - CONCLUSION: Uncomplicated CT-guided thoracentesis. David Mora MD Objective Remarks GENERAL: Awake alert oriented 3 --talkative and cooperative SKIN: Warm and dry. No obvious rashes HEAD: Atraumatic. Normocephalic. EYES: Pupils equal and round. No scleral icterus. No injection or drainage. Extraocular muscles intact ENT: No nasal bleeding or discharge. Mucous membranes pink and moist. Tongue is midline NECK: Trachea midline. No JVD. Supple CARDIOVASCULAR: Regular rate and rhythm. S1-S2 no S3 or S4 no heave or thrill or rub RESPIRATORY: No accessory muscle use. Breath sounds equal bilaterally. Coarse breath sounds bilaterally GASTROINTESTINAL: Abdomen soft, non-tender, nondistended. Hepatic and splenic margins not palpable. MUSCULOSKELETAL: Extremities without clubbing, cyanosis, or edema. No obvious deformities. Bilateral lower extremity weakness NEUROLOGICAL: Awake and alert. No obvious cranial nerve deficits. Motor grossly within normal limits. 4 out of 5 muscle strength in the arms and 3 out of 5 muscle strength in the legs. Normal speech. PSYCHIATRIC: Appropriate mood and affect; insight and judgment ABnormal. Procedures CT guided thoracentesis with L chest tube placement 12/29 Left thoracoscopic exploration, left thoracotomy for decortication, evacuation of complex loculated effusion, adhesiolysis 01/11/17 11 INTUBATED 01-16 EXTUBATED 01-16 BRONCHOSCOPY WITH BAL OF LEFT SIDE Medications and IVs Current Medications Sodium Chloride (NS Flush) 2 ml UNSCH PRN IVF FLUSH AFTER USING IV ACCESS Last administered on 01/08/17 21:04; Start 12/29/16 at 10:15; Stop 01/10/17 at 17: 47; Status DC Methylprednisolone Sodium Succinate (SoluMEDROL INJ) 125 mg ONCE ONCE IV PUSH Last administered on 12/29/16 10:17; Start 12/29/16 at 10:15; Stop 12/29/16 at 10:16; Status DC Albuterol/ Ipratropium (Duoneb Neb) 1 ampule ONCE ONCE INH Last administered on 12/29/16 10:13; Start 12/29/16 at 10:15; Stop 12/29/16 at 10:16; Status DC Albuterol Sulfate (Albuterol Neb) 2.5 mg Q15M INH Last administered on 10:13; Start 12/29/16 at 10:15; Stop 12/29/16 at 10:31; Status DC Sodium Chloride 1,000 ml @ 125 mls/hr Q8H IV Last administered on 12/29/16 10:17; Start 12/29/16 at 10:15; Stop 12/29/16 at 11:35; Status DC Ondansetron HCl (Zofran Inj) 4 mg ONCE ONCE IV PUSH Last administered on 12/29 10:41; Start 12/29/16 at 10:45; Stop 12/29/16 at 10:46; Status DC Ceftriaxone Sodium 1000 mg/ Sodium Chloride 100 ml @ 200 mls/hr ONCE ONCE IV Last administered on 12/29/16 11:54; Start 12/29/16 at 11:15; Stop 12/29/16 at 11:44; Status DC Azithromycin 500 mg/Sodium Chloride 250 ml @ 250 mls/hr ONCE ONCE IV Last administered on 12/29/16 12:31; Start 12/29/16 at 11:15; Stop 12/29/16 at 12 :14; Status DC Pantoprazole Sodium (Protonix Inj) 40 mg DAILY IV PUSH Last administered on 08:54; Start 12/29/16 at 12:00; Stop 12/31/16 at 14:05; Status DC Albuterol/ Ipratropium (Duoneb Neb) 1 ampule Q4HR NEB INH Last administered on 01/02/17 07:58; Start 12/29/16 at 12:00; Stop 01/02/17 at 11:59; Status DC Albuterol/ Ipratropium (Duoneb Neb) 1 ampule Q2HR NEB PRN INH WHEEZING Last administered on 01/04/17 10:14; Start 12/29/16 at 11:30; Stop 01/11/17 at 20: 29; Status DC Miscellaneous Information 1 [id number] Last administered on 12/29/16 21:22; Start 12/29/16 at 11:30; Stop 01/07/17 at 23:35; Status DC Chlorhexidine Gluconate (Chlorhexidine 2% Cloth) Taper DAILY@04 TOP Last administered on 01/01/17 04:00; Start 12/30/16 at 04:00; Stop 01/07/17 at 23: 35; Status DC Chlorhexidine Gluconate (Chlorhexidine 2% Cloth) 3 pack UNSCH PRN TOP HYGIENIC CARE; Start 12/29/16 at 11:30; Stop 01/07/17 at 23:35; Status DC Senna/Docusate Sodium (Elvie-Colace) 1 tab BID PO Last administered on 08:44; Start 12/29/16 at 21:00; Stop 01/11/17 at 20:29; Status DC Magnesium Hydroxide (Milk Of Magnesia Liq) 30 ml Q12H PRN PO Mild constipation Last administered on 01/09/17 20:33; Start 12/29/16 at 11:30; Stop 01/11/17 at 20:29; Status DC Sennosides (Senokot) 17.2 mg Q12H PRN PO Moderate constipation Last administered on 11/14/17at 02:19; Start 12/29/16 at 11:30 Bisacodyl (Dulcolax Supp) 10 mg DAILY PRN RECTAL SEVERE CONSITIPATION; Start 12/29/16 at 11:30 Lactulose (Lactulose Liq) 30 ml DAILY PRN PO SEVERE CONSITIPATION; Start 12/29 at 11:30; Status Cancel Sodium Chloride 1,000 ml @ 84 mls/hr [id number] IV Last administered on 17:26; Start 12/29/16 at 11:30; Stop 12/30/16 at 08:37; Status DC Potassium Chloride 100 ml @ 50 mls/hr Q2H PRN IV For Potassium 2.8 - 3.2 mEq/L ; Start 12/29/16 at 11:30; Stop 12/31/16 at 14:05; Status DC Potassium Chloride 100 ml @ 50 mls/hr Q2H PRN IV For Potassium 2.8 - 3.2 mEq/L ; Start 12/29/16 at 11:30; Stop 12/31/16 at 14:05; Status DC Potassium Bicarb/ Potassium Chloride (K-Lyte Cl Eff) 50 meq UNSCH PRN PO For Potassium 3.3 - 3.5 mEq/L; Start 12/29/16 at 11:30; Stop 12/31/16 at 14:05; Status DC Potassium Chloride 100 ml @ 25 mls/hr UNSCH PRN IV For Potassium 3.3 - 3.5 mEq /L; Start 12/29/16 at 11:30; Stop 12/31/16 at 14:05; Status DC Potassium Chloride 100 ml @ 50 mls/hr Q2H PRN IV For Potassium 3.3 - 3.5 mEq/L ; Start 12/29/16 at 11:30; Stop 12/31/16 at 14:05; Status DC Magnesium Sulfate 4 gm/Sodium Chloride 100 ml @ 50 mls/hr UNSCH PRN IV For Magnesium 0.9 - 1.1 mg/dL; Start 12/29/16 at 11:30; Stop 12/31/16 at 14:05; Status DC Magnesium Oxide (Mag-Ox) 800 mg UNSCH PRN PO For Magnesium 1.2 - 1.6 mg/dL; Start 12/29/16 at 11:30; Stop 12/31/16 at 14:05; Status DC Magnesium Sulfate 2 gm/Sodium Chloride 100 ml @ 50 mls/hr UNSCH PRN IV For Magnesium 1.2 - 1.6 mg/dL; Start 12/29/16 at 11:30; Stop 12/31/16 at 14:05; Status DC Potassium Phosphate (K-Phos) 2,000 mg Q4H PRN PO For Phosphorus < 2.5 mg/dL; Start 12/29/16 at 11:30; Stop 12/31/16 at 14:05; Status DC Sodium Phosphate 30 mmol/Sodium Chloride 250 ml @ 42 mls/hr UNSCH PRN IV For Phosphorus < 2.5 mg/dL; Start 12/29/16 at 11:30; Stop 12/31/16 at 14:05; Status DC Potassium Phosphate (K-Phos) 2,000 mg UNSCH PRN PO/TUBE SEE LABEL COMMENTS; Start 12/29/16 at 11:30; Stop 12/31/16 at 14:05; Status DC Potassium Phosphate 30 mmol/ Sodium Chloride 260 ml @ 42 mls/hr UNSCH PRN IV SEE LABEL COMMENTS Last administered on 12/30/16 11:46; Start 12/29/16 at 11: 30; Stop 12/31/16 at 14:05; Status DC Dextrose (D50w (Vial) Inj) 50 ml UNSCH PRN IV PUSH HYPOGLYCEMIA-SEE COMMENTS; Start 12/29/16 at 11:30; Stop 01/07/17 at 23:34; Status DC Glucagon (Glucagon Inj) 1 mg UNSCH PRN OTHER HYPOGLYCEMIA-SEE COMMENTS; Start 12/29/16 at 11:30; Stop 01/07/17 at 23:34; Status DC Insulin Human Regular (NovoLIN R SUPPLEMENTAL SCALE) 1 Q6H SQ Last administered on 01/01/17 17:30; Start 12/29/16 at 11:30; Stop 01/07/17 at 23: 34; Status DC Ceftriaxone Sodium 1000 mg/ Sodium Chloride 100 ml @ 200 mls/hr Q24H IV Last administered on 01/03/17 12:20; Start 12/30/16 at 12:00; Stop 01/04/17 at 11: 59; Status DC Azithromycin 500 mg/Sodium Chloride 250 ml @ 250 mls/hr Q24H IV Last administered on 12/31/16 11:48; Start 12/30/16 at 13:00; Stop 12/31/16 at 15 :20; Status DC Methylprednisolone Sodium Succinate (SoluMEDROL INJ) 60 mg Q6HR IV PUSH Last administered on 12/30/16 12:31; Start 12/29/16 at 16:00; Stop 12/30/16 at 13 :03; Status DC Lidocaine/ Epinephrine (Xylocaine-Epi 1%-1:100,000 Inj) 20 ml STK-MED ONCE .ROUTE Last administered on 12/29/16 12:38; Start 12/29/16 at 12:38; Stop 12/29/16 at 12:39; Status DC Fentanyl Citrate (fentaNYL INJ) 100 mcg STK-MED ONCE .ROUTE Last administered on 12/29/16 12:47; Start 12/29/16 at 12:47; Stop 12/29/16 at 12:48; Status DC Midazolam HCl (Versed Inj) 2 mg STK-MED ONCE .ROUTE Last administered on 12:47; Start 12/29/16 at 12:47; Stop 12/29/16 at 12:48; Status DC Iohexol (Omnipaque 350 Inj) 69 ml STK-MED ONCE IVCONTRAST Last administered on 12/29/16 13:33; Start 12/29/16 at 13:33; Stop 12/29/16 at 13:34; Status DC Ephedrine Sulfate (ePHEDrine/NS 25 MG/5 ML SYR) 25 mg STK-MED ONCE .ROUTE ; Start 12/29/16 at 13:40; Stop 12/29/16 at 13:41; Status DC Acetaminophen (Tylenol) 650 mg Q6H PRN PO PAIN Last administered on 12/30/16 04:13; Start 12/30/16 at 04:15; Stop 01/02/17 at 11:16; Status DC Oxycodone/ Acetaminophen (Percocet 5-325 Mg) 1 tab ONCE ONCE PO Last administered on 12/30/16 09:39; Start 12/30/16 at 09:30; Stop 12/30/16 at 09 :31; Status DC Methylprednisolone Sodium Succinate (SoluMEDROL INJ) 40 mg Q6HR IV PUSH Last administered on 01/01/17 05:12; Start 12/30/16 at 18:00; Stop 01/01/17 at 11 :40; Status DC Morphine Sulfate (Morphine Inj) 1 mg ONCE ONCE IV PUSH Last administered on 15:06; Start 12/30/16 at 15:00; Stop 12/30/16 at 15:01; Status DC Acetaminophen (Tylenol) 650 mg Q6H PRN PO PAIN 1-2; Start 12/30/16 at 22:30 Morphine Sulfate (Morphine Inj) 1 mg Q4H PRN IV PAIN 5-10 Last administered on 12/31/16 11:12; Start 12/30/16 at 22:30; Stop 12/31/16 at 13:46; Status DC Morphine Sulfate (Morphine Inj) 2 mg Q4H PRN IV BREAKTHROUGH PAIN 6-10 Last administered on 01/11/17 13:33; Start 12/31/16 at 14:30; Stop 01/11/17 at 19: 27; Status DC Acetaminophen/ Hydrocodone Bitart ([place] 5-325 Mg) 1 tab Q6H PRN PO PAIN 3-5 Last administered on 01/02/17 05:18; Start 12/31/16 at 13:45; Stop 01/09/17 at 09:01; Status DC Acetaminophen/ Hydrocodone Bitart ([place] 5-325 Mg) 2 tab Q6H PRN PO PAIN 6-10 Last administered on 01/09/17 08:39; Start 12/31/16 at 13:45; Stop 01/09/17 at 09:01; Status DC Pantoprazole Sodium (Protonix) 40 mg DAILY PO Last administered on 01/11/17 08 :41; Start 01/01/17 at 09:00; Stop 01/11/17 at 20:29; Status DC Iohexol (Omnipaque 350 Inj) 70 ml STK-MED ONCE IVCONTRAST Last administered on 12/31/16 14:59; Start 12/31/16 at 14:59; Stop 12/31/16 at 15:00; Status DC Azithromycin 500 mg/Sodium Chloride 250 ml @ 250 mls/hr Q24H IV Last administered on 01/04/17 11:57; Start 01/02/17 at 13:00; Stop 01/04/17 at 14: 46; Status DC Methylprednisolone Sodium Succinate (SoluMEDROL INJ) 40 mg Q12HR IV PUSH Last administered on 01/03/17 07:37; Start 01/01/17 at 21:00; Stop 01/03/17 at 13 :51; Status DC Methylprednisolone Sodium Succinate (SoluMEDROL INJ) 40 mg DAILY IV PUSH Last administered on 01/05/17 08:15; Start 01/04/17 at 09:00; Stop 01/05/17 at 18:19 ; Status DC Nifedipine (Procardia Xl) 60 mg ONCE ONCE PO Last administered on 01/05/17 17 :49; Start 01/05/17 at 17:30; Stop 01/05/17 at 17:32; Status DC Nifedipine (Procardia Xl) 30 mg DAILY PO Last administered on 01/17/17 08:32 ; Start 01/06/17 at 09:00 Furosemide (Lasix) 20 mg DAILY PO Last administered on 01/15/17 09:21; Start 01/05/17 at 17:35; Status Future Hold Prednisone (Deltasone) 10 mg DAILY PO Last administered on 01/15/17 09:21; Start 01/08/17 at 09:00; Status Future Hold Acetaminophen/ Hydrocodone Bitart ([place] 5-325 Mg) 1 tab Q4H PRN PO PAIN 3-5; Start 01/09/17 at 09:00; Stop 01/11/17 at 19:27; Status DC Acetaminophen/ Hydrocodone Bitart ([place] 5-325 Mg) 2 tab Q4H PRN PO PAIN 6-10 Last administered on 01/11/17 08:47; Start 01/09/17 at 09:15; Stop 01/11/17 at 19:27; Status DC Lactulose (Lactulose Liq) 30 ml ONCE ONCE PO ; Start 01/10/17 at 13:00; Stop 01/10/17 at 13:19; Status DC Lactulose (Lactulose Liq) 30 ml QID PRN PO severe constipation Last administered on 01/11/17 08:42; Start 01/10/17 at 13:00 Simethicone (Phazyme Chew) 125 mg ONCE ONCE PO Last administered on 01/10/17 14:59; Start 01/10/17 at 13:30; Stop 01/10/17 at 13:31; Status DC Sodium Chloride (NS Flush) 2 ml BID IV FLUSH Last administered on 01/11/17 09: 00; Start 01/10/17 at 21:00; Stop 01/11/17 at 20:29; Status DC Sodium Chloride (NS Flush) 2 ml UNSCH PRN IV FLUSH FLUSH AFTER USING IV ACCESS ; Start 01/10/17 at 16:15; Stop 01/11/17 at 20:29; Status DC Cefazolin Sodium 500 mg/Sodium Chloride 505 ml @ 0 mls/hr [employer] IRRIGATION ; Start 01/10/17 at 16:15; Stop 01/17/17 at 16:14 Cefazolin Sodium/ Dextrose 50 ml @ 150 mls/hr [employer] IV Last administered on 01/11/17 16:17; Start 01/10/17 at 16:15; Stop 01/17/17 at 16:14 Chlorhexidine Gluconate (Hibiclens 4% Top Soln) 1 applic [employer] TOPICAL Last administered on 01/11/17 08:42; Start 01/10/17 at 16:15; Stop 01/12/17 at 08:40 ; Status DC Dextrose (D50w (Vial) Inj) 50 ml UNSCH PRN IV PUSH HYPOGLYCEMIA-SEE COMMENTS; Start 01/10/17 at 16:15 Lactated Ringer's 1,000 ml @ 30 mls/hr Q24H PRN IV SEE LABEL COMMENTS Last administered on 01/11/17 14:53; Start 01/10/17 at 18:30; Stop 01/11/17 at 20:23 ; Status DC Sodium Chloride 500 ml @ 30 mls/hr [id number] PRN IV SEE LABEL COMMENTS; Start at 18:30; Stop 01/11/17 at 20:23; Status DC Metoprolol Tartrate (Lopressor) 25 mg [employer] PRN PO SEE LABEL COMMENTS; Start 01/10/17 at 18:30; Stop 01/11/17 at 20:23; Status DC Povidone Iodine (Betadine 5% Antisepsis Kit) 1 applic [employer] PRN EACH NARE SEE LABEL COMMENTS; Start 01/10/17 at 18:30; Stop 01/11/17 at 20:23; Status DC Chlorhexidine Gluconate (Chlorhexidine 2% Cloth) 3 pack [employer] PRN TOPICAL SEE LABEL COMMENTS; Start 01/10/17 at 18:30; Stop 01/12/17 at 08:40; Status DC Insulin Human Regular (NovoLIN R INJ) See Protocol Table ... [employer] PRN SQ SEE PROTOCOL TABLE; Start 01/10/17 at 18:30; Stop 01/11/17 at 20:23; Status DC Albuterol/ Ipratropium (Duoneb Neb) 1 ampule Q6HR NEB NEB Last administered on 01/11/17 09:40; Start 01/10/17 at 22:00; Stop 01/11/17 at 20:29; Status DC Bupivacaine HCl (Marcaine Pf 0.5% Inj) 30 ml ONCE ONCE INFIL Last administered on 01/11/17 17:51; Start 01/11/17 at 17:51; Stop 01/11/17 at 17:53 ; Status DC Albuterol Sulfate (Albuterol Neb) 2.5 mg Q6HR NEB NEB Last administered on 07:08; Start 01/11/17 at 22:00; Stop 01/13/17 at 12:20; Status DC Albuterol Sulfate (Albuterol Neb) 2.5 mg Q2HR NEB PRN NEB WHEEZING Last administered on 01/15/17 10:55; Start 01/11/17 at 19:30 IV Flush (NS Flush) 2 ml BID IV FLUSH Last administered on 01/17/17 08:32; Start 01/11/17 at 21:00 IV Flush (NS Flush) 2 ml UNSCH PRN IV FLUSH FLUSH AFTER USING IV ACCESS; Start 01/11/17 at 19:30 Miscellaneous Information (Post-op Orders (for Pharmacy)) STAT ONCE OTHER ; Start 01/11/17 at 19:30; Stop 01/11/17 at 20:27; Status DC Pantoprazole Sodium (Protonix) 40 mg HS PO Last administered on 01/16/17 20: 34; Start 01/11/17 at 21:00 Ondansetron HCl (Zofran Inj) 4 mg Q6H PRN IV PUSH NAUSEA OR VOMITING Last administered on 01/15/17 05:58; Start 01/11/17 at 19:30 Docusate Calcium (Surfak) 240 mg HS PO Last administered on 01/11/17 23:35; Start 01/11/17 at 21:00; Stop 01/12/17 at 08:40; Status DC Magnesium Hydroxide (Milk Of Magnesia Liq) 30 ml DAILY PRN PO MILD CONSTIPATION ; Start 01/11/17 at 19:30 Acetaminophen 100 ml @ 400 mls/hr Q6H IV Last administered on 01/12/17 19:24 ; Start 01/11/17 at 21:00; Stop 01/12/17 at 15:14; Status DC Naloxone HCl (Narcan Inj) 0.4 mg UNSCH PRN IV PUSH RESPIRATORY RATE LESS THAN 10; Start 01/11/17 at 19:30; Stop 01/16/17 at 18:00; Status DC Morphine Sulfate (Morphine 1 Mg/ ml MONOTYPE KEYBOARD OPERATOR) 30 mg UNSCH IV Last administered on 09:29; Start 01/11/17 at 19:30; Stop 01/16/17 at 18:00; Status DC MONOTYPE KEYBOARD OPERATOR Dosage Infused (Pha) 1 Q8HR .XX Last administered on 01/15/17 06:00; Start 01/11/17 at 22:00; Stop 01/16/17 at 18:00; Status DC Morphine Sulfate (*morphine INJ PERIprocedure ONLY) 8 mg STK-MED ONCE .ROUTE Last administered on 01/11/17 20:10; Start 01/11/17 at 20:08; Stop 01/12/17 at 08:40; Status DC Morphine Sulfate (*morphine INJ PERIprocedure ONLY) 8 mg STK-MED ONCE .ROUTE Last administered on 01/11/17 20:30; Start 01/11/17 at 20:22; Stop 01/12/17 at 08:40; Status DC Meperidine HCl (*DEMEROL INJ PERIprocedural ONLY) 25 mg STK-MED ONCE .ROUTE Last administered on 01/11/17 20:23; Start 01/11/17 at 20:22; Stop 01/12/17 at 08:40; Status DC Morphine Sulfate (Morphine 1 Mg/ ml MONOTYPE KEYBOARD OPERATOR) 30 mg STK-MED ONCE .ROUTE ; Start 01/11 at 20:25; Stop 01/11/17 at 20:26; Status DC Sodium Chloride 1,000 ml @ 30 mls/hr Q24H IV Last administered on 01/14/17 21:00; Start 01/11/17 at 21:00 Miscellaneous Information ALL NURSING DEPARTME... UNSCH PRN .XX SEE LABEL COMMENTS; Start 01/11/17 at 19:55; Stop 01/12/17 at 19:54; Status DC Polyethylene Glycol (Miralax) 17 gm DAILY PO Last administered on 01/17/17 08 :32; Start 01/12/17 at 09:00 Potassium Chloride (KCl) 30 meq ONCE ONCE PO Last administered on 01/12/17 10 :07; Start 01/12/17 at 08:45; Stop 01/12/17 at 08:46; Status DC Potassium Chloride (KCl) 10 meq DAILY PO Last administered on 01/17/17 08:32 ; Start 01/12/17 at 09:00 Cefazolin Sodium 1000 mg/Sodium Chloride 100 ml @ 200 mls/hr Q8H IV ; Start at 15:45; Stop 01/12/17 at 15:45; Status DC Cefazolin Sodium 1000 mg/Sodium Chloride 100 ml @ 200 mls/hr Q8H IV Last administered on 01/13/17 08:04; Start 01/12/17 at 16:00; Stop 01/13/17 at 08: 19; Status DC Ceftriaxone Sodium 1000 mg/ Sodium Chloride 100 ml @ 200 mls/hr Q24H IV Last administered on 01/16/17 23:27; Start 01/12/17 at 23:00 Furosemide (Lasix Inj) 20 mg ONCE ONCE IV PUSH Last administered on 13:08; Start 01/13/17 at 14:00; Stop 01/13/17 at 14:01; Status DC Potassium Chloride (KCl) 20 meq ONCE ONCE PO Last administered on 01/13/17 13:07; Start 01/13/17 at 14:00; Stop 01/13/17 at 14:01; Status DC Albuterol Sulfate (Albuterol Neb) 2.5 mg Q6HR WHILE AWAKE NEB INH Last administered on 01/15/17 09:42; Start 01/13/17 at 14:00; Stop 01/15/17 at 10 :45; Status DC Furosemide (Lasix Inj) 20 mg ONCE ONCE IV PUSH Last administered on 18:49; Start 01/13/17 at 17:00; Stop 01/13/17 at 17:01; Status DC Potassium Chloride 100 ml @ 50 mls/hr Q2H IV Last administered on 01/14/17 11:26; Start 01/14/17 at 08:00; Stop 01/14/17 at 11:59; Status DC Etomidate (Amidate Inj) 40 mg STK-MED ONCE .ROUTE Last administered on 10:58; Start 01/15/17 at 10:08; Stop 01/15/17 at 10:09; Status DC Midazolam HCl (Versed Inj) 5 mg STK-MED ONCE .ROUTE Last administered on 10:57; Start 01/15/17 at 10:09; Stop 01/15/17 at 10:10; Status DC Albuterol Sulfate (Albuterol Neb) 2.5 mg Q4HR NEB PRN NEB DYSPNEA; Start 01/15 at 10:30 Propofol 50 ml @ As Directed STK-MED ONCE .ROUTE Last administered on 10:59; Start 01/15/17 at 10:18; Stop 01/15/17 at 10:19; Status DC Chlorhexidine Gluconate (Peridex 0.12% Liq) 15 ml BID@08,20 MT Last administered on 01/15/17 21:32; Start 01/15/17 at 20:00 Propofol 100 ml @ 2.034 mls/ hr TITRATE PRN IV SEDATION Last administered on 01/16/17 05:49; Start 01/15/17 at 10:30; Stop 01/16/17 at 18:00; Status DC Fentanyl Citrate 250 ml @ 5 mls/hr TITRATE PRN IV SEDATION Last administered on 01/15/17 18:25; Start 01/15/17 at 10:30; Stop 01/16/17 at 18:00; Status DC Albuterol/ Ipratropium (Duoneb Neb) 1 ampule Q4HR NEB NEB Last administered on 01/17/17 08:28; Start 01/15/17 at 12:00 Methylprednisolone Sodium Succinate (SoluMEDROL INJ) 60 mg Q12H IV PUSH ; Start 01/15/17 at 12:00; Stop 01/15/17 at 12:00; Status DC Methylprednisolone Sodium Succinate (SoluMEDROL INJ) 60 mg Q8H IV PUSH Last administered on 01/17/17 04:29; Start 01/15/17 at 12:00 Enoxaparin Sodium (Lovenox Inj) 40 mg Q24H SQ Last administered on 01/15/17 12:54; Start 01/15/17 at 12:00; Status Future Hold Ferrous Sulfate (Ferrous Sulfate Liq) 300 mg BID PO Last administered on 09:05; Start 01/15/17 at 14:30; Stop 01/16/17 at 17:41; Status DC Acetylcysteine (Mucomyst 20% Neb) 2 ml Q6HR NEB NEB ; Start 01/15/17 at 16:00 ; Stop 01/15/17 at 17:41; Status DC Non-Formulary Medication 2 ML NEB EVERY 6 HOURS Q6HR NEB NEB Last administered on 01/17/17 04:25; Start 01/15/17 at 18:00; Stop 01/18/17 at 15 :59 Potassium Bicarb/ Potassium Chloride (K-Lyte Cl Eff) 25 meq ONCE ONCE PO Last administered on 01/16/17 07:26; Start 01/16/17 at 06:45; Stop 01/16/17 at 06:51; Status DC Lactulose (Lactulose Liq) 30 ml DAILY NG Last administered on 01/17/17 08:32 ; Start 01/16/17 at 09:00 Docusate Sodium (Colace) 100 mg BID PO Last administered on 01/17/17 08:32; Start 01/16/17 at 09:00 Magnesium Sulfate/ Dextrose 100 ml @ 100 mls/hr ONCE ONCE IV Last administered on 01/16/17 08:57; Start 01/16/17 at 08:45; Stop 01/16/17 at 09 :44; Status DC Sodium Chloride 250 ml @ 0 mls/hr BOLUS ONCE IV Last administered on 10:30; Start 01/16/17 at 10:30; Stop 01/16/17 at 10:31; Status DC Sodium Chloride 500 ml @ 500 mls/hr BOLUS ONCE IV Last administered on 13:11; Start 01/16/17 at 13:15; Stop 01/16/17 at 14:14; Status DC Sodium Chloride 500 ml @ 500 mls/hr Q1H ONCE IV Last administered on 17:36; Start 01/16/17 at 17:30; Stop 01/16/17 at 18:29; Status DC Ferrous Sulfate (Ferrous Sulfate) 325 mg BID PO Last administered on 08:32; Start 01/16/17 at 21:00 Oxycodone/ Acetaminophen (Percocet 7.5-325 Mg) 1 tab Q6H PRN PO pain 5-10 Last administered on 01/17/17 07:29; Start 01/16/17 at 18:15 Albumin Human 500 ml @ 250 mls/hr ONCE ONCE IV Last administered on 04:26; Start 01/17/17 at 03:45; Stop 01/17/17 at 05:44; Status DC Furosemide (Lasix Inj) 40 mg STK-MED ONCE .ROUTE Last administered on 09:04; Start 01/17/17 at 09:04; Stop 01/17/17 at 09:05; Status DC A/P Problem List: (1) Pleural effusion on left ICD Code: J90 - Pleural effusion, not elsewhere classified Status: Acute (2) Respiratory distress ICD Code: R06.00 - Dyspnea, unspecified Status: Resolved (3) Hyponatremia ICD Code: E87.1 - Hypo-osmolality and hyponatremia Status: Acute (4) COPD (chronic obstructive pulmonary disease) ICD Code: J44.9 - Chronic obstructive pulmonary disease, unspecified Status: Chronic (5) Tobacco abuse ICD Code: Z72.0 - Tobacco use Status: Chronic Assessment and Plan ASSESSMENT Acute hypoxemic respiratory failure Complete left lung atelectasis Left-sided consolidation with pleural effusion Left thoracotomy with decortication, evacuation of complex loculated effusion, adhesiolysis Pulmonary hypertension COPD exacerbation Hyponatremia/hypophosphatemia Hypokalemia. Urinary tract infection on abx PLAN: Neuro: Hold propofol and reduce fentanyl to facilitate weaning trials Pain control with fentanyl--off all sedation at this time Pulm: Acute hypoxemic respiratory failure Complete L lung atelectasis S/p decortication for L hemothorax COPD Tobacco abuse ?L lung mass vs loculated effusion/ Emergently intubated and placed on mechanical ventilation 01/15 s/p Bronchoscopy by Dr. Chung. Left lung valera reexpanded, persistent volume loss involving left lower lung field Start weaning trials with possible extubation--extubated January 16 Status post left thoracotomy and decortication 01/11/17-postop diagnosis was hemothorax Bronchodilators, Solumedrol 60 mg IV q8 hours s/p CT guided left-sided thoracentesis and CT placement by IR 12/29/16 CT chest: Either highly complex fluid or soft tissue mass involving the left lung base with mass effect. This measures 12.2 x 12.6 x 7.4 cm. 4.4 cm ascending aortic aneurysm. --Status post bronchoscopy with left sided bronchial alveolar lavage by pulmonary on January 16 CV: Pulmonary hypertension, most likely secondary from chronic hypoxia by echo Moderate aortic stenosis mild to moderate aortic regurgitation Monitor HR and BP and maintain MAP>65mmHg Echo 12/30 - systolic function grossly normal. Moderate /AI. Moderate to severe pulmonary hypertension.. GI: Nothing by mouth-has been extubated Diet as tolerated : Hyponatremia ?chronic but chronicity not truly known Hypokalemia, resolved ID: UTI Possible pneumonia Continue Rocephin for now UTI present on admission with culture positive for pansensitive Klebsiella. Influenza screen, blood and pleural fluid cultures negative to date. Temporal fluid studies from January 11, on cultures negative to date Endo: SSI with Accu-Cheks for glycemic control. Heme: Macrocytic anemia Anemia of chronic disease and iron deficiency Monitor CBC. Normal B12, Supplement iron due to her lab findings consistent with iron deficiency Being transfused 1 unit packed red blood cells today DVT prophylaxis with SCDs. Lovenox 40 mg sq daily. IV Famotidine 20 mg IV q12h Being transfused Needs physical therapy and occupational therapy aggressively We'll move out of ICU later today Discharge Planning Needs to be more mobile May require SNF Problem Qualifiers (1) COPD (chronic obstructive pulmonary disease): Qualified Codes: J43.1 - Panlobular emphysema Raf Soria DO Jan 17, 2017 10:41
--- NOTE | 2017-01-17 13:16 | PD.ONC.PN ---
Subjective Subjective Remarks Afebrile overnight. Patient feeling good after blood transfusion this AM. Excited to be transferred out of CVICU. Objective Data Date Time Temp Pulse Resp B/P (MAP) Pulse Ox O2 Delivery O2 Flow Rate FiO2 01/17/17 11:17 120 01/17/17 11:17 97.9 120 20 95/68 (77) 99 01/17/17 11:16 99 Nasal Cannula 2.00 01/17/17 08:37 98.2 104 16 104/62 01/17/17 08:36 98.2 106 20 104/68 01/17/17 08:31 95 Nasal Cannula 2.00 01/17/17 08:31 20 01/17/17 08:26 97.9 110 20 114/76 95 01/17/17 07:23 95 Nasal Cannula 2.00 01/17/17 07:22 104 01/17/17 07:20 97.9 120 24 107/74 (85) 95 01/17/17 03:19 85 01/17/17 03:07 98.3 78 16 89/58 (68) 99 01/17/17 03:07 99 Nasal Cannula 01/16/17 23:42 97.8 91 16 88/57 (67) 99 01/16/17 23:42 99 Nasal Cannula 01/16/17 23:30 88 01/16/17 21:58 99 Nasal Cannula 2.00 01/16/17 21:29 97 Nasal Cannula 2.00 01/16/17 21:15 87 Nasal Cannula 2.00 01/16/17 19:49 98.2 113 18 102/70 (81) 93 01/16/17 19:49 93 Room Air 01/16/17 19:00 105 01/16/17 15:00 99 01/16/17 15:00 97 Room Air 01/16/17 15:00 97.9 98 20 113/77 (89) 99 01/17/17 01/17/17 01/17/17 07:00 15:00 23:00 Intake Total 420 ml 920 ml Output Total 750 ml Balance -330 ml 920 ml Result Diagram: 01/17/17 0418 01/17/17 0418 Laboratory Results Laboratory Tests Test 01/17/17 04:18 White Blood Count 3.3 TH/MM3 Red Blood Count 1.99 MIL/MM3 Hemoglobin 7.0 GM/DL Hematocrit 20.5 % Mean Corpuscular Volume 103.4 FL Mean Corpuscular Hemoglobin 35.1 PG Mean Corpuscular Hemoglobin Concent 33.9 % Red Cell Distribution Width 21.8 % Platelet Count 45 TH/MM3 Mean Platelet Volume 9.4 FL Neutrophils (%) (Auto) 84.6 % Lymphocytes (%) (Auto) 10.5 % Monocytes (%) (Auto) 4.9 % Eosinophils (%) (Auto) 0.0 % Basophils (%) (Auto) 0.0 % Neutrophils # (Auto) 2.8 TH/MM3 Lymphocytes # (Auto) 0.3 TH/MM3 Monocytes # (Auto) 0.2 TH/MM3 Eosinophils # (Auto) 0.0 TH/MM3 Basophils # (Auto) 0.0 TH/MM3 CBC Comment AUTO DIFF Differential Comment AUTO DIFF CONFIRMED Platelet Estimate LOW Platelet Morphology Comment NORMAL Target Cells Blood Urea Nitrogen 9 MG/DL Creatinine 0.41 MG/DL Random Glucose 131 MG/DL Total Protein 4.2 GM/DL Albumin 1.8 GM/DL Calcium Level 7.7 MG/DL Phosphorus Level 1.9 MG/DL Magnesium Level 2.1 MG/DL Alkaline Phosphatase 123 U/L Aspartate Amino Transf (AST/SGOT) 19 U/L Alanine Aminotransferase (ALT/SGPT) 19 U/L Total Bilirubin 0.4 MG/DL Sodium Level 136 MEQ/L Potassium Level 3.6 MEQ/L Chloride Level 102 MEQ/L Carbon Dioxide Level 28.1 MEQ/L Anion Gap 6 MEQ/L Estimat Glomerular Filtration Rate 160 ML/MIN Lactic Acid Level 0.7 mmol/L Random Cortisol 11.9 MCG/DL Culture Results Microbiology Date/Time Source Procedure Growth Status 01/15/17 11:15 Sputum Endotracheal Gram Stain - Final Complete 01/15/17 11:15 Sputum Endotracheal Sputum Culture - Final RARE GROWTH NORMAL RESPIRATORY BASIA Complete Imaging Studies Last 24 hours Impressions Chest X-Ray 01/17/17 0000 Signed Impressions: Service Date/Time: Tuesday, January 17, 2017 09:04 - CONCLUSION: 1. Increasing atelectasis/consolidation of the left lung. 2. Left chest tube and central venous catheter in good position. 3. The ET tube has been removed Stew Lindsay MD Administered Medications Medications (Trade) Dose Ordered Sig/Armin Route PRN Reason Start Time Stop Time Status Last Admin Dose Admin Sennosides (Senokot) 17.2 mg Q12H PRN PO Moderate constipation 12/29/16 11:30 01/17/17 02:19 Nifedipine (Procardia Xl) 30 mg DAILY PO 01/06/17 09:00 01/17/17 08:32 Furosemide (Lasix) 20 mg DAILY PO 01/05/17 17:35 Future Hold 01/15/17 09:21 Prednisone (Deltasone) 10 mg DAILY PO 01/08/17 09:00 Future Hold 01/15/17 09:21 Lactulose (Lactulose Liq) 30 ml QID PRN PO severe constipation 01/10/17 13:00 01/11/17 08:42 Cefazolin Sodium/ Dextrose 50 ml @ 150 mls/hr CASHIER CREDIT IV 01/10/17 16:15 01/17/17 16:14 01/11/17 16:17 Albuterol Sulfate (Albuterol Neb) 2.5 mg Q2HR NEB PRN NEB WHEEZING 01/11/17 19:30 01/15/17 10:55 IV Flush (NS Flush) 2 ml BID IV FLUSH 01/11/17 21:00 01/17/17 08:32 Pantoprazole Sodium (Protonix) 40 mg HS PO 01/11/17 21:00 01/16/17 20:34 Ondansetron HCl (Zofran Inj) 4 mg Q6H PRN IV PUSH NAUSEA OR VOMITING 01/11/17 19:30 01/15/17 05:58 Sodium Chloride 1,000 ml @ 30 mls/hr Q24H IV 01/11/17 21:00 01/14/17 21:00 Polyethylene Glycol (Miralax) 17 gm DAILY PO 01/12/17 09:00 01/17/17 08:32 Potassium Chloride (KCl) 10 meq DAILY PO 01/12/17 09:00 01/17/17 08:32 Ceftriaxone Sodium 1000 mg/ Sodium Chloride 100 ml @ 200 mls/hr Q24H IV 01/12/17 23:00 01/16/17 23:27 Chlorhexidine Gluconate (Peridex 0.12% Liq) 15 ml BID@08,20 MT 01/15/17 20:00 01/15/17 21:32 Albuterol/ Ipratropium (Duoneb Neb) 1 ampule Q4HR NEB NEB 01/15/17 12:00 01/17/17 12:25 Methylprednisolone Sodium Succinate (SoluMEDROL INJ) 60 mg Q8H IV PUSH 01/15/17 12:00 01/17/17 12:20 Enoxaparin Sodium (Lovenox Inj) 40 mg Q24H SQ 01/15/17 12:00 Future Hold 01/15/17 12:54 Non-Formulary Medication 2 ML NEB EVERY 6 HOURS Q6HR NEB NEB 01/15/17 18:00 01/18/17 15:59 01/17/17 04:25 Lactulose (Lactulose Liq) 30 ml DAILY NG 01/16/17 09:00 01/17/17 08:32 Docusate Sodium (Colace) 100 mg BID PO 01/16/17 09:00 01/17/17 08:32 Ferrous Sulfate (Ferrous Sulfate) 325 mg BID PO 01/16/17 21:00 01/17/17 08:32 Oxycodone/ Acetaminophen (Percocet 7.5-325 Mg) 1 tab Q6H PRN PO pain 5-10 01/16/17 18:15 01/17/17 07:29 Objective Remarks GENERAL: Middle aged female sitting up in chair next to bed in [facility]. SKIN: Warm and dry. HEAD: Normocephalic. EYES: No injection or drainage. NECK: Supple, trachea midline. CARDIOVASCULAR: +S1/S2 RESPIRATORY: diminished at left lung base. anterior valera clear. GASTROINTESTINAL: Abdomen soft, non-tender, nondistended. EXTREMITIES: No cyanosis NEUROLOGICAL: No obvious focal deficit. Awake, alert, and oriented x3. Assessment/Plan Problem List: (1) Pancytopenia ICD Codes: D61.818 - Other pancytopenia Plan: 01/17: agree with blood transfusion this AM. monitor CBC, recommend bone marrow biopsy when feeling improved. --Pancytopenia with macrocytosis and normal B12. --suspect that she has myelodysplastic syndrome until proven otherwise. --will need bone marrow biopsy and aspirate. (declining at this time) --iron studies are consistent with anemia of chronic disease --blood transfusion if the hemoglobin is less than 8 and platelet transfusion if the platelet count is less than 15 or any bleeding . Assessment 56y/o female with pancytopenia with macrocytosis. h/o COPD Attending Statement The exam, history, and the medical decision-making described in the above note were completed with the assistance of the mid-level provider. I reviewed and agree with the findings presented. I attest that I had a [id number] encounter with the patient on the same day, and personally performed and documented my assessment and findings in the medical record. No new complaints Fees better PRBC Today Monitor CBC Naida Quinn Jan 17, 2017 13:16 Emil Soler MD Jan 17, 2017 21:35
--- NOTE | 2017-01-17 13:18 | HHI.CCPN ---
Subjective Remarks/Hospital Course The patient is a 56-year-old female with past medical history of COPD, who presented to [facility] ED with complaints of coughing, wheezing. The patient states that she had food poisoning last week where she had nausea and diarrhea, after she ate suspicious food. She denies any worsening of dyspnea from baseline. In addition, she denies any constitutional symptoms. She quit smoking five and a half years ago and used to smoke one to two packs per day for about 30 years. Chest x-ray in the ER showed consolidation with large effusion and volume loss on the left. On further history she denies any hemoptysis, however, she reports 20 pounds weight loss in the last 4 months and decreased p.o. intake. She is being followed up by Dr. Chung her outpatient filler feeder. The patient denies any use of oxygen at home, however, she is on bronchodilators p.r.n. Her laboratory data is significant for hyponatremia with sodium level 125, lactic acid level 2.1. On arrival to the ER she was tachycardic and tachypneic. When seen the patient is on 4 liters nasal cannula with saturation ranges between 95-100%. In the ER she was given Rocephin, azithromycin, Solu-Medrol, bronchodilator treatment and IV fluids. Her current blood pressure is 107/61. 12/30 Patient s/p CT guided thoracentesis and CT placement by IR yesterday. She is feeling better. Subjective: 12/31 She complains of pain and requests increased pain meds. Repeat imaging ordered per pulmonology to evaluate mass vs loculated effusion. On SD. [facility] RECONSULT NOTE 01/15/17 Critical care consulted for severe hypoxemic respiratory failure. On 01/11/17 patient had left thoracotomy for decortication, evacuation of complex loculated effusion, adhesiolysis by Dr. Gamboa. CXR 01/14/17 showed near complete whiteout of the left lung-pulmonary Dr. Ridley is following. Today a HALICAT was called as the patient was found profoundly hypoxemic in the 70s oxygen saturation. She was placed on 100% percent nonrebreather with improvement in saturation only to 81%. Stat ABG on 100% nonrebreather showed pH of 7.29 PCO2 of 62 pO2 of 53 and oxygen saturation 79%. Stat chest x-ray showed complete whiteout of the left lung. I discussed with the patient briefly, she is agreeable for intubation. I proceeded with endotracheal intubation and placed on mechanical ventilation -patient saturation gradually improved to 100%. Discussed with pulmonology Dr. Ridley. He plans to do bronchoscopy today afternoon. SUBJ 01/16: Patient had bronchoscopy by Dr. Ridley yesterday. Chest x-ray today shows improvement in aeration but still with volume loss left lower lung valera which is unchanged from the post thoracotomy chest x-rays. Wide-awake on vent tolerating CPAP will proceed with weaning trials. 01/17: Extubated yesterday, Out of bed in chair currently. Transfused 1 unit PRBCs. On nasal cannula. Objective Vital Signs Date Time Temp Pulse Resp B/P (MAP) Pulse Ox O2 Delivery O2 Flow Rate FiO2 01/17/17 11: 120 01/17/17 11: 97.9 20 95/68 (77) 99 01/17/17 11:16 Nasal Cannula 2.00 01/16/17 07:38 40 Intake and Output 01/17/17 01/17/17 01/18/17 08:00 16:00 00:00 Intake Total 920 ml 420 ml Output Total 750 ml Balance 170 ml 420 ml Result Diagram: 01/17/17 0418 01/17/17 0418 Other Results Microbiology Date/Time Source Procedure Growth Status 01/15/17 11:15 Sputum Endotracheal Gram Stain - Final Complete 01/15/17 11:15 Sputum Endotracheal Sputum Culture - Final RARE GROWTH NORMAL RESPIRATORY BASIA Complete Imaging Last Impressions Chest Tube Insertion 12/29/16 1224 Signed Impressions: Service Date/Time: December 13:22 - CONCLUSION: Uncomplicated CT-guided thoracentesis. David Mora MD Chest X-Ray 12/29/16 1003 Signed Impressions: Service Date/Time: December 10:24 - CONCLUSION: Combination of extensive consolidation, large effusion and volume loss on the left. Man Mcdaniels MD Chest CT 12/29/16 0000 Signed Impressions: Service Date/Time: , December 29, 2016 13:07 - CONCLUSION: 1. Either highly complex fluid or soft tissue mass involving the left lung base with mass effect. This measures 12.2 x 12.6 x 7.4 cm. An ultrasound canal differentiate. 2. 7 mm nodule on the left upper lobe. 3. Material filling the left mainstem bronchus either related to purulent material or mucus. There is resulting volume loss of the entire left lung. 4. 4.4 cm ascending aortic aneurysm. Art Tate Jr., MD Objective Remarks GENERAL: Patient is 56 yo female who is intubated and awake follows commands SKIN: Warm and dry. HEAD: Normocephalic. EYES: No scleral icterus. No injection or drainage. NECK: Supple, trachea midline. No JVD or lymphadenopathy. CARDIOVASCULAR: Regular rate and rhythm with 3/6 systolic murmur in all areas, predominantly L and R upper sternal borders RESPIRATORY: Diminished breath sounds on the left. L chest tube to suction draining 360 ml blood tinged fluid in last 24 hours. GASTROINTESTINAL: Abdomen soft, non-tender, nondistended. Bowel sounds present. MUSCULOSKELETAL: No cyanosis. Trace edema NEURO: Awake and alert, moving all extremities with no focal deficit. Follows commands x4 Procedures CT guided thoracentesis with L chest tube placement 12/29 Left thoracoscopic exploration, left thoracotomy for decortication, evacuation of complex loculated effusion, adhesiolysis 01/11/1701-15 INTUBATED 01-16 EXTUBATED 01-16 BRONCHOSCOPY WITH BAL OF LEFT SIDE A/P Problem List: (1) Acute hypoxemic respiratory failure ICD Code: J96.01 - Acute respiratory failure with hypoxia (2) Atelectasis of left lung ICD Code: J98.11 - Atelectasis (3) Pleural effusion on left ICD Code: J90 - Pleural effusion, not elsewhere classified Status: Acute (4) Pain ICD Code: R52 - Pain, unspecified Status: Acute (5) Tobacco abuse ICD Code: Z72.0 - Tobacco use Status: Chronic (6) COPD (chronic obstructive pulmonary disease) ICD Code: J44.9 - Chronic obstructive pulmonary disease, unspecified Status: Chronic (7) Hyponatremia ICD Code: E87.1 - Hypo-osmolality and hyponatremia Status: Acute (8) Respiratory distress ICD Code: R06.00 - Dyspnea, unspecified Status: Resolved (9) UTI (urinary tract infection) ICD Code: N39.0 - Urinary tract infection, site not specified Status: Acute (10) Physical deconditioning ICD Code: R53.81 - Other malaise Status: Chronic Assessment and Plan ASSESSMENT Acute hypoxemic respiratory failure Complete left lung atelectasis Left-sided consolidation with pleural effusion Left thoracotomy with decortication, evacuation of complex loculated effusion, adhesiolysis Pulmonary hypertension COPD exacerbation Hyponatremia/hypophosphatemia Hypokalemia. Urinary tract infection on abx PLAN: Neuro: Hold propofol and reduce fentanyl to facilitate weaning trials Pain control with fentanyl Pulm: Acute hypoxemic respiratory failure Complete L lung atelectasis S/p decortication for L hemothorax COPD Tobacco abuse ?L lung mass vs loculated effusion/ Emergently intubated and placed on mechanical ventilation 01/15 s/p Bronchoscopy by Dr. Chung. Left lung valera reexpanded, persistent volume loss involving left lower lung field extubated on 01/16, tolerating nasal cannula. Status post left thoracotomy and decortication 01/11/17-postop diagnosis was hemothorax Bronchodilators, Solumedrol 60 mg IV q8 hours s/p CT guided left-sided thoracentesis and CT placement by IR 12/29/16 CT chest: Either highly complex fluid or soft tissue mass involving the left lung base with mass effect. This measures 12.2 x 12.6 x 7.4 cm. 4.4 cm ascending aortic aneurysm. CV: Pulmonary hypertension, most likely secondary from chronic hypoxia by echo Moderate aortic stenosis mild to moderate aortic regurgitation Monitor HR and BP and maintain MAP>65mmHg Echo 12/30 - systolic function grossly normal. Moderate /AI. Moderate to severe pulmonary hypertension.. GI: PO diet as tolerated. : Hyponatremia ?chronic but chronicity not truly known Hypokalemia, resolved ID: UTI Possible pneumonia Continue Rocephin for now UTI present on admission with culture positive for pansensitive Klebsiella. Influenza screen, blood and pleural fluid cultures negative to date. Temporal fluid studies from January 11, on cultures negative to date Endo: SSI with Accu-Cheks for glycemic control. Heme: Macrocytic anemia Anemia of chronic disease and iron deficiency Monitor CBC. Normal B12, Supplement iron due to her lab findings consistent with iron deficiency DVT prophylaxis with SCDs. Lovenox 40 mg sq daily. IV Famotidine 20 mg IV q12h Level 2 Problem Qualifiers (1) COPD (chronic obstructive pulmonary disease): Qualified Codes: J43.1 - Panlobular emphysema Bogdan Hinton MD Jan 17, 2017 13:18
--- NOTE | 2017-01-17 15:19 | PD.CAR.PN ---
CVT Progress Note Subjective/Hospital Course: 56-year-old white female with a history of COPD, chronic bronchitis who apparently was suffering from food poisoning. The patient states that she was unable to pass urine and became very weak, had lost weight with diarrhea, abdominal discomfort, dehydration and presented to ER for evaluation. She c/o 20 lb weight loss over the past [address] done showed evidence of a loculated mass-like infiltrate in the left lung base 12 x 12 cm and a left upper lobe lung nodule 7 mm. The patient was started on Solu-Medrol, IV antibiotics including Rocephin and Zithromax. Denies chest pains or abdominal pains or nausea or vomiting. She underwent chest tube placement in IR 12/29 with minimal drainage of this effusion.. Chest tube was removed. Repeat chest x- ray shows no change in the mod pleural effusion but does shows some mild patchy opacities in the right lung base. cardiology Dr Dianna perez pt TTE shows preserved EF and at least moderate /AI. present diagnosis : Respiratory Insufficiency, Left-sided consolidation , Exudative pleural effusion, COPD exacerbation, Urinary tract infection, x tobacco use Anemia, thrombocytopenia, Moderate aortic valve regurgitation, Moderate calcific aortic valve stenosis pleural fluid : exudative effusion. Cytology neg for malignant cells. Fluid cx neg CT chest 12/29 : Either highly complex fluid or soft tissue mass involving the left lung base with mass effect. This measures 12.2 x 12.6 x 7.4 cm. 4.4 cm ascending aortic aneurysm. pt is now agreeable for surgery : plan is for left thoracoscopic exploration for loculated pleural effusion , possible thoracotomy , decortication in am 01/11 on nasal cannula surgery: Left thoracoscopic exploration, left thoracotomy for decortication, evacuation of complex loculated effusion, adhesiolysis 01/12 pain controlled with DIVER ASSISTANT morphine needs aggressive pulm toileting OOB, ambulate recheck UA / pleural fluid cultures and path pending 01/13 chest tubes drained 130cc/ 12 hrs serous drainage / leave chest tube in for now CXR noted , from 01/12, mucus plugging, aggressive pulm toileting add ezpap and acapella now on Rocephin, will dc ancef, await on UA culture OOB, ambulate, 01/14/17 No complaints today. Denies dyspnea, but CXR shows complete opacification of left lung 01/15/17 Hypoxic this morning despite 100% FiO2. Transferred to CVICU and reintubated. Bronchoscopy pending. 01/16 remains in CVICU, hematology consulted s/p Bronch chest tube to water seal 01/17 now on nasal cannula 2 liters continue pulm toileting appreciate Hematology will transfer to stepdown continue PT/OT Objective: Vital Signs Date Time Temp Pulse Resp B/P (MAP) Pulse Ox O2 Delivery O2 Flow Rate FiO2 01/17/17 11:17 120 01/17/17 11:17 97.9 120 20 95/68 (77) 99 01/17/17 11:16 99 Nasal Cannula 2.00 01/17/17 08:37 98.2 104 16 104/62 01/17/17 08:36 98.2 106 20 104/68 01/17/17 08:31 95 Nasal Cannula 2.00 01/17/17 08:31 20 01/17/17 08:26 97.9 110 20 114/76 95 01/17/17 07:23 95 Nasal Cannula 2.00 01/17/17 07:22 104 01/17/17 07:20 97.9 120 24 107/74 (85) 95 01/17/17 03:19 85 01/17/17 03:07 98.3 78 16 89/58 (68) 99 01/17/17 03:07 99 Nasal Cannula 01/16/17 23:42 97.8 91 16 88/57 (67) 99 01/16/17 23:42 99 Nasal Cannula 01/16/17 23:30 88 01/16/17 21:58 99 Nasal Cannula 2.00 01/16/17 21:29 97 Nasal Cannula 2.00 01/16/17 21:15 87 Nasal Cannula 2.00 01/16/17 19:49 98.2 113 18 102/70 (81) 93 01/16/17 19:49 93 Room Air 01/16/17 19:00 105 Labs: Laboratory Tests Test 01/17/17 04:18 White Blood Count 3.3 TH/MM3 (4.0-11.0) Red Blood Count 1.99 MIL/MM3 (4.00-5.30) Hemoglobin 7.0 GM/DL (11.6-15.3) Hematocrit 20.5 % (35.0-46.0) Mean Corpuscular Volume 103.4 FL (80.0-100.0) Mean Corpuscular Hemoglobin 35.1 PG (27.0-34.0) Mean Corpuscular Hemoglobin Concent 33.9 % (32.0-36.0) Red Cell Distribution Width 21.8 % (11.6-17.2) Platelet Count 45 TH/MM3 (150-450) Mean Platelet Volume 9.4 FL (7.0-11.0) Neutrophils (%) (Auto) 84.6 % (16.0-70.0) Lymphocytes (%) (Auto) 10.5 % (9.0-44.0) Monocytes (%) (Auto) 4.9 % (0.0-8.0) Eosinophils (%) (Auto) 0.0 % (0.0-4.0) Basophils (%) (Auto) 0.0 % (0.0-2.0) Neutrophils # (Auto) 2.8 TH/MM3 (1.8-7.7) Lymphocytes # (Auto) 0.3 TH/MM3 (1.0-4.8) Monocytes # (Auto) 0.2 TH/MM3 (0-0.9) Eosinophils # (Auto) 0.0 TH/MM3 (0-0.4) Basophils # (Auto) 0.0 TH/MM3 (0-0.2) CBC Comment AUTO DIFF Differential Comment AUTO DIFF CONFIRMED Platelet Estimate LOW (NORMAL) Platelet Morphology Comment NORMAL (NORMAL) Target Cells (NORMAL) Blood Urea Nitrogen 9 MG/DL (7-18) Creatinine 0.41 MG/DL (0.50-1.00) Random Glucose 131 MG/DL (74-106) Total Protein 4.2 GM/DL (6.4-8.2) Albumin 1.8 GM/DL (3.4-5.0) Calcium Level 7.7 MG/DL (8.5-10.1) Phosphorus Level 1.9 MG/DL (2.5-4.9) Magnesium Level 2.1 MG/DL (1.5-2.5) Alkaline Phosphatase 123 U/L (45-117) Aspartate Amino Transf (AST/SGOT) 19 U/L (15-37) Alanine Aminotransferase (ALT/SGPT) 19 U/L (10-53) Total Bilirubin 0.4 MG/DL (0.2-1.0) Sodium Level 136 MEQ/L (136-145) Potassium Level 3.6 MEQ/L (3.5-5.1) Chloride Level 102 MEQ/L (98-107) Carbon Dioxide Level 28.1 MEQ/L (21.0-32.0) Anion Gap 6 MEQ/L (5-15) Estimat Glomerular Filtration Rate 160 ML/MIN (>89) Lactic Acid Level 0.7 mmol/L (0.4-2.0) Random Cortisol 11.9 MCG/DL Result Diagram: 01/17/1741701/17/17417 Telemetry: NSR (1) COPD (chronic obstructive pulmonary disease) Plan: I (2) Tobacco abuse Plan: smoking cessation (3) Physical deconditioning Plan: pt (4) Pleural effusion on left Plan: s/p left thoracoscopic exploration for loculated pleural effusion path negative for malignant cells cultures neg OOB PT/OT eval for rehab remove chest tube in am allow pt to ambulate more today s/p Bronch 01/16 cxr 01/17: 1. Increasing atelectasis/consolidation of the left lung. 2. Left chest tube and central venous catheter in good position. (5) Pancytopenia Plan: appreciate hematology input --Pancytopenia with macrocytosis and normal B12. --suspect myelodysplastic syndrome until proven otherwise. --will need bone marrow biopsy and aspirate. (declining at this time) --iron studies are consistent with anemia of chronic disease --blood transfusion if the hemoglobin is less than 8 and platelet transfusion if the platelet count is less than 15 or any bleeding / per Heme Problem Qualifiers (1) COPD (chronic obstructive pulmonary disease): Qualified Codes: J43.1 - Panlobular emphysema Alda Mcclain Jan 17, 2017 15:18
--- NOTE | 2017-01-17 18:59 | HHI.PR ---
Subjective Remarks S/P thoracotomy and decortication . Has a chest tube in place. Seems better today and was weaned off the vent . C XR showed improved aeration on left. Chest tube is draining. No fever.Hgb is 7.3 Objective Vital Signs Date Time Temp Pulse Resp B/P (MAP) Pulse Ox O2 Delivery O2 Flow Rate FiO2 01/17/17 18:05 101 01/17/17 17:36 17 01/17/17 17:00 94 01/17/17 15:00 115 01/17/17 15:00 99 Nasal Cannula 2.00 01/17/17 15:00 98.1 109 17 104/65 (78) 99 01/17/17 11:17 120 01/17/17 11:17 97.9 120 20 95/68 (77) 99 01/17/17 11:16 99 Nasal Cannula 2.00 01/17/17 08:37 98.2 104 16 104/62 01/17/17 08:36 98.2 106 20 104/68 01/17/17 08:31 95 Nasal Cannula 2.00 01/17/17 08:26 97.9 110 20 114/76 95 01/17/17 07:23 95 Nasal Cannula 2.00 01/17/17 07:22 104 01/17/17 07:20 97.9 120 24 107/74 (85) 95 01/17/17 03:19 85 01/17/17 03:07 98.3 78 16 89/58 (68) 99 01/17/17 03:07 99 Nasal Cannula 01/16/17 23:42 97.8 91 16 88/57 (67) 99 01/16/17 23:42 99 Nasal Cannula 01/16/17 23:30 88 01/16/17 21:58 99 Nasal Cannula 2.00 01/16/17 21:29 97 Nasal Cannula 2.00 01/16/17 21:15 87 Nasal Cannula 2.00 01/16/17 19:49 98.2 113 18 102/70 (81) 93 01/16/17 19:49 93 Room Air 01/16/17 19:00 105 I/O 01/16/17 01/16/17 01/16/17 01/17/17 01/17/17 01/17/17 07:00 15:00 23:00 07:00 15:00 23:00 Intake Total 1372 ml 850 ml 880 ml 420 ml 1545 ml 480 ml Output Total 380 ml 340 ml 750 ml 1560 ml 80 ml Balance 992 ml 850 ml 540 ml -330 ml -15 ml 400 ml Intake Oral 0 ml 300 ml 420 ml 625 ml 480 ml IV Total 1312 ml 850 ml 500 ml 500 ml Packed Cells 400 ml Blood Product IV Normal Saline Flush 20 ml Tube Irrigant 60 ml 80 ml Output Urine Total 300 ml 250 ml 750 ml 1500 ml Gastric Drainage Total 0 ml 0 ml Chest Tube Drainage Total 80 ml 90 ml 60 ml 80 ml # Voids 1 # Bowel Movements 0 0 0 0 Result Diagram: 01/17/1741701/17/17417 Objective Remarks GENERAL: This is an averagely built middle-aged white female who is alert HEENT: Head normocephalic. Pupils are reactive and equal. Tongue moist. Throat is clear. Nasal mucosa clear. NECK: Supple. No bruits, thyroid enlargement or lymphadenopathy. CHEST: Distant breath sounds at the left lung base and occ wheeze and crackles left chest . HEART: The heart sounds are irregular, S1-S2. No murmur. No S3. ABDOMEN: Soft and nontender. No organomegaly. Bowel sounds are active. EXTREMITIES: Edema 1+ with diminished peripheral pulses. Bilateral Foot deformity. NEUROLOGIC: Reflexes are 1+ . No deficits SKIN: Dry and scaly. Assessment and Plan Assessment and Plan IMPRESSION 1. COPD with acute exacerbation, resolved 2. S/p decortication left Chest 3. Atelectasis left lower lobe with mucus plugging. 4. Hyponatremia. 5. Abnormal liver enzymes 6. Anemia of chronic disease. Plan : 1. O2 2 L. 2. IS at bedside q3h 3. Cont antibiotics. 4. Duoneb nebs tid. 5. Transfuse 1 U Packed red cells. 6. Mucomyst 20 % nebs q6h. 7. Cont Lasix 20 mg daily. 8. Anemia W/U and Bone marrow biopsy Venessa Chung MD Jan 17, 2017 18:59
[2017-01-17] MEDS: SODIUM CHLOR 0.9% 1000 ML INJ 1,000 ML IV SCH (21:00)
[2017-01-17] MEDS: PANTOPRAZOLE SOD 40 MG DELAYED RELEASE TAB PO SCH (21:38)
[2017-01-17] MEDS: cefTRIAXone INJ 1,000 MG in SODIUM CHLORIDE 0.9% INJ 100 ML IV SCH (22:13)
[2017-01-18] VITALS (25 sets, daily range): BP systolic 105–128; BP diastolic 56–74; PULSE 79–120; RESP 18–22; TEMP 97.5–98.3; O2SAT 95–100
[2017-01-18] MEDS: RESP: ALBUTEROL 2.5 MG/IPRATROPIUM 0.5 MG NEB (SCH) NEB ×3 (00:37→07:22)
[2017-01-18] MEDS: oxyCODONE/ACETAMINOPHEN 7.5 MG/325 MG TAB PO PRN ×3 (04:00→17:41)
[2017-01-18] MEDS: methylPREDNISolone SOD SUCC 125 MG/2 ML VIAL IV PUSH SCH ×2 (04:01→11:01)
[2017-01-18 05:17] LABS: AUTOMATED NEUTROPHIL # 2.9 TH/MM3 (1.8-7.7); BASOPHIL % 0.1 % (0.0-2.0); HEMATOCRIT 26.5 % (35.0-46.0); LYMPHOCYTE # 0.3 TH/MM3 (1.0-4.8); MEAN CELL VOLUME 100.6 FL (80.0-100.0); MEAN CORPUSCULAR HEMOGLOBIN 33.9 PG (27.0-34.0); MEAN CORPUSCULAR HGB CONC 33.7 % (32.0-36.0); MONO % 5.3 % (0.0-8.0); NEUT % 86.6 % (16.0-70.0); PLATELET COUNT 48 TH/MM3 (150-450); RED BLOOD COUNT 2.64 MIL/MM3 (4.00-5.30); RED CELL DISTRIBUTION WIDTH 20.9 % (11.6-17.2); WHITE BLOOD COUNT 3.4 TH/MM3 (4.0-11.0)
[2017-01-18 05:21] LABS: HEMO FLAGS AUTO DIFF
[2017-01-18 05:42] LABS: ALT (GPT) 29 U/L (10-53); ANION GAP 8 MEQ/L (5-15); AST (GOT) 24 U/L (15-37); BICARBONATE 29.5 MEQ/L (21.0-32.0); BLOOD UREA NITROGEN 8 MG/DL (7-18); CHLORIDE 102 MEQ/L (98-107); GLOMERULAR FILTRATION RATE 193 ML/MIN (>89); MAGNESIUM 2.1 MG/DL (1.5-2.5); POTASSIUM 3.1 MEQ/L (3.5-5.1); SODIUM (NA) 139 MEQ/L (136-145)
[2017-01-18 05:51] LABS: ALKALINE PHOSPHATASE 162 U/L (45-117); FREE T4 0.98 NG/DL (0.76-1.46); TOTAL BILIRUBIN ADULT 0.8 MG/DL (0.2-1.0)
[2017-01-18 07:46] LABS: PLATELET ESTIMATE SMEAR LOW (NORMAL); PLATELET MORPHOLOGY NORMAL (NORMAL); SCAN/DIFF AUTO DIFF CONFIRMED
[2017-01-18] MEDS: CHLORHEXIDINE 0.12% (ORAL KIT) 15 ML CUP MT SCH ×2 (08:00→20:00)
[2017-01-18] MEDS: SODIUM CHLORIDE 0.9% FLUSH 5 ML FLUSH IV FLUSH SCH ×2 (09:00→21:00)
[2017-01-18] MEDS: POTASSIUM CHLORIDE 10 MEQ CONTROLLED RELEASE TAB PO SCH (09:00)
[2017-01-18] MEDS: DOCUSATE SODIUM 100 MG CAP PO SCH ×2 (09:00→22:06)
[2017-01-18] MEDS: FERROUS SULFATE 325 MG (65 MG ELEMENTAL IRON) TAB PO SCH ×2 (09:00→22:06)
[2017-01-18] MEDS: POLYETHYLENE GLYCOL 17 GM PKG PO SCH (09:00)
[2017-01-18] MEDS: LACTULOSE SYRUP 20 GM/30 ML CUP NG SCH (09:00)
[2017-01-18] MEDS ORDERED: POTASSIUM CHLORIDE 25 MEQ EFFERVESCENT TAB PO ONE ×2 (09:00→10:00)
--- NOTE | 2017-01-18 09:58 | PD.CAR.PN ---
CVT Progress Note Subjective/Hospital Course: 56-year-old white female with a history of COPD, chronic bronchitis who apparently was suffering from food poisoning. The patient states that she was unable to pass urine and became very weak, had lost weight with diarrhea, abdominal discomfort, dehydration and presented to ER for evaluation. She c/o 20 lb weight loss over the past [address] done showed evidence of a loculated mass-like infiltrate in the left lung base 12 x 12 cm and a left upper lobe lung nodule 7 mm. The patient was started on Solu-Medrol, IV antibiotics including Rocephin and Zithromax. Denies chest pains or abdominal pains or nausea or vomiting. She underwent chest tube placement in IR 12/29 with minimal drainage of this effusion.. Chest tube was removed. Repeat chest x- ray shows no change in the mod pleural effusion but does shows some mild patchy opacities in the right lung base. cardiology Dr Dianna perez pt TTE shows preserved EF and at least moderate /AI. present diagnosis : Respiratory Insufficiency, Left-sided consolidation , Exudative pleural effusion, COPD exacerbation, Urinary tract infection, x tobacco use Anemia, thrombocytopenia, Moderate aortic valve regurgitation, Moderate calcific aortic valve stenosis pleural fluid : exudative effusion. Cytology neg for malignant cells. Fluid cx neg CT chest 12/29 : Either highly complex fluid or soft tissue mass involving the left lung base with mass effect. This measures 12.2 x 12.6 x 7.4 cm. 4.4 cm ascending aortic aneurysm. pt is now agreeable for surgery : plan is for left thoracoscopic exploration for loculated pleural effusion , possible thoracotomy , decortication in am 01/11 on nasal cannula surgery: Left thoracoscopic exploration, left thoracotomy for decortication, evacuation of complex loculated effusion, adhesiolysis 01/12 pain controlled with [employer] morphine needs aggressive pulm toileting OOB, ambulate recheck UA / pleural fluid cultures and path pending 01/13 chest tubes drained 130cc/ 12 hrs serous drainage / leave chest tube in for now CXR noted , from 01/12, mucus plugging, aggressive pulm toileting add ezpap and acapella now on Rocephin, will dc ancef, await on UA culture OOB, ambulate, 01/14/17 No complaints today. Denies dyspnea, but CXR shows complete opacification of left lung 01/15/17 Hypoxic this morning despite 100% FiO2. Transferred to CVICU and reintubated. Bronchoscopy pending. 01/16 remains in CVICU, hematology consulted s/p Bronch chest tube to water seal 01/17 now on nasal cannula 2 liters continue pulm toileting appreciate Hematology will transfer to stepdown continue PT/OT 01/18 chest tubes with minimal drainage both chest tubes removed without difficulty on 2 liter nasal cannula need aggressive PT/OT replace K+/ diuresis later if stable she will need SNF at discharge / very deconditioned will give ducolax supp / fleets today Objective: GENERAL: SKIN: Warm and dry. poor skin turgor HEAD: Normocephalic. EYES: No scleral icterus. No injection or drainage. NECK: Supple, trachea midline. No JVD or lymphadenopathy. CARDIOVASCULAR: Regular rate and rhythm without murmurs, gallops, or rubs. RESPIRATORY: Breath sounds equal bilaterally. No accessory muscle use. coarse bilateral breath sounds / chest tubes removed without difficultly GASTROINTESTINAL: Abdomen soft, non-tender, nondistended. MUSCULOSKELETAL: No cyanosis, or edema. BACK: Nontender without obvious deformity. No CVA tenderness. Vital Signs Date Time Temp Pulse Resp B/P (MAP) Pulse Ox O2 Delivery O2 Flow Rate FiO2 01/18/17 07:27 96 Nasal Cannula 2.00 01/18/17 06:00 89 01/18/17 05:00 87 01/18/17 04:00 103 01/18/17 03:45 96 Nasal Cannula 2.00 01/18/17 03:45 97.7 106 18 114/67 (83) 96 01/18/17 03:00 80 01/18/17 02:00 87 01/18/17 01:00 85 01/18/17 00:00 93 01/17/17 23:20 97 Nasal Cannula 2.00 01/17/17 23:20 97.7 98 16 108/58 (75) 97 01/17/17 23:00 87 01/17/17 22:00 100 01/17/17 21:00 110 01/17/17 20:30 98 Nasal Cannula 2.00 01/17/17 20:30 97.9 104 18 108/69 (82) 98 01/17/17 20:00 96 01/17/17 19:56 98 Nasal Cannula 2.00 01/17/17 19:00 95 01/17/17 18:05 101 01/17/17 17:36 17 01/17/17 17:00 94 01/17/17 15:00 115 01/17/17 15:00 99 Nasal Cannula 2.00 01/17/17 15:00 98.1 109 17 104/65 (78) 99 01/17/17 11:17 120 01/17/17 11:17 97.9 120 20 95/68 (77) 99 01/17/17 11:16 99 Nasal Cannula 2.00 Labs: Laboratory Tests Test 01/18/17 04:37 White Blood Count 3.4 TH/MM3 (4.0-11.0) Red Blood Count 2.64 MIL/MM3 (4.00-5.30) Hemoglobin 8.9 GM/DL (11.6-15.3) Hematocrit 26.5 % (35.0-46.0) Mean Corpuscular Volume 100.6 FL (80.0-100.0) Mean Corpuscular Hemoglobin 33.9 PG (27.0-34.0) Mean Corpuscular Hemoglobin Concent 33.7 % (32.0-36.0) Red Cell Distribution Width 20.9 % (11.6-17.2) Platelet Count 48 TH/MM3 (150-450) Mean Platelet Volume 9.5 FL (7.0-11.0) Neutrophils (%) (Auto) 86.6 % (16.0-70.0) Lymphocytes (%) (Auto) 8.0 % (9.0-44.0) Monocytes (%) (Auto) 5.3 % (0.0-8.0) Eosinophils (%) (Auto) 0.0 % (0.0-4.0) Basophils (%) (Auto) 0.1 % (0.0-2.0) Neutrophils # (Auto) 2.9 TH/MM3 (1.8-7.7) Lymphocytes # (Auto) 0.3 TH/MM3 (1.0-4.8) Monocytes # (Auto) 0.2 TH/MM3 (0-0.9) Eosinophils # (Auto) 0.0 TH/MM3 (0-0.4) Basophils # (Auto) 0.0 TH/MM3 (0-0.2) CBC Comment AUTO DIFF Differential Comment AUTO DIFF CONFIRMED Platelet Estimate LOW (NORMAL) Platelet Morphology Comment NORMAL (NORMAL) Blood Urea Nitrogen 8 MG/DL (7-18) Creatinine 0.35 MG/DL (0.50-1.00) Random Glucose 138 MG/DL (74-106) Total Protein 4.9 GM/DL (6.4-8.2) Albumin 2.4 GM/DL (3.4-5.0) Calcium Level 8.1 MG/DL (8.5-10.1) Phosphorus Level 1.8 MG/DL (2.5-4.9) Magnesium Level 2.1 MG/DL (1.5-2.5) Alkaline Phosphatase 162 U/L (45-117) Aspartate Amino Transf (AST/SGOT) 24 U/L (15-37) Alanine Aminotransferase (ALT/SGPT) 29 U/L (10-53) Total Bilirubin 0.8 MG/DL (0.2-1.0) Sodium Level 139 MEQ/L (136-145) Potassium Level 3.1 MEQ/L (3.5-5.1) Chloride Level 102 MEQ/L (98-107) Carbon Dioxide Level 29.5 MEQ/L (21.0-32.0) Anion Gap 8 MEQ/L (5-15) Estimat Glomerular Filtration Rate 193 ML/MIN (>89) Free Thyroxine 0.98 NG/DL (0.76-1.46) Thyroid Stimulating Hormone 3rd Gen 1.590 uIU/ML (0.358-3.740) Result Diagram: 01/18/1743601/18/17436 Telemetry: NSR (1) COPD (chronic obstructive pulmonary disease) Plan: on nebs, steroids I (2) Tobacco abuse Plan: smoking cessation (3) Physical deconditioning Plan: pt (4) Pleural effusion on left Plan: s/p left thoracoscopic exploration for loculated pleural effusion path negative for malignant cells cultures neg OOB PT/OT eval for rehab chest tubes removed allow pt to ambulate more today s/p Bronch 01/16 cxr 01/17: 1. Increasing atelectasis/consolidation of the left lung. 2. Left chest tube and central venous catheter in good position. (5) Pancytopenia Plan: appreciate hematology input --Pancytopenia with macrocytosis and normal B12. --suspect myelodysplastic syndrome until proven otherwise. --will need bone marrow biopsy and aspirate. (declining at this time) --iron studies are consistent with anemia of chronic disease --blood transfusion if the hemoglobin is less than 8 and platelet transfusion if the platelet count is less than 15 or any bleeding / per Heme Problem Qualifiers (1) COPD (chronic obstructive pulmonary disease): Qualified Codes: J43.1 - Panlobular emphysema Alda Mcclain Jan 18, 2017 09:58
[2017-01-18] MEDS ORDERED: BISACODYL 10 MG SUPP RECTAL ONE (10:00)
--- NOTE | 2017-01-18 10:50 | PD.ONC.PN ---
Subjective Subjective Remarks Afebrile Had chest tubes removed this am Has just worked with physical therapy and is quite SOB Continues to decline bone marrow biopsy " They wanted me to do one of those 5 years ago" Objective Data Date Time Temp Pulse Resp B/P (MAP) Pulse Ox O2 Delivery O2 Flow Rate FiO2 01/18/17 10:00 110 01/18/17 09:00 120 01/18/17 08:00 96 01/18/17 07:27 96 Nasal Cannula 2.00 01/18/17 07:00 98 Nasal Cannula 2.00 01/18/17 07:00 97.8 108 20 105/56 (72) 98 01/18/17 07:00 108 01/18/17 06:00 89 01/18/17 05:00 87 01/18/17 04:00 103 01/18/17 03:45 96 Nasal Cannula 2.00 01/18/17 03:45 97.7 106 18 114/67 (83) 96 01/18/17 03:00 80 01/18/17 02:00 87 01/18/17 01:00 85 01/18/17 00:00 93 01/17/17 23:20 97 Nasal Cannula 2.00 01/17/17 23:20 97.7 98 16 108/58 (75) 97 01/17/17 23:00 87 01/17/17 22:00 100 01/17/17 21:00 110 01/17/17 20:30 98 Nasal Cannula 2.00 01/17/17 20:30 97.9 104 18 108/69 (82) 98 01/17/17 20:00 96 01/17/17 19:56 98 Nasal Cannula 2.00 01/17/17 19:00 95 01/17/17 18:05 101 01/17/17 17:36 17 01/17/17 17:00 94 01/17/17 15:00 115 01/17/17 15:00 99 Nasal Cannula 2.00 01/17/17 15:00 98.1 109 17 104/65 (78) 99 01/17/17 11:17 120 01/17/17 11:17 97.9 120 20 95/68 (77) 99 01/17/17 11:16 99 Nasal Cannula 2.00 11/15/17 11/15/17 11/15/17 07:00 15:00 23:00 Intake Total 300 ml Output Total 60 ml 800 ml Balance 240 ml -800 ml Result Diagram: 01/18/17 0437 01/18/17 0437 Laboratory Results Laboratory Tests Test 01/18/17 04:37 White Blood Count 3.4 TH/MM3 Red Blood Count 2.64 MIL/MM3 Hemoglobin 8.9 GM/DL Hematocrit 26.5 % Mean Corpuscular Volume 100.6 FL Mean Corpuscular Hemoglobin 33.9 PG Mean Corpuscular Hemoglobin Concent 33.7 % Red Cell Distribution Width 20.9 % Platelet Count 48 TH/MM3 Mean Platelet Volume 9.5 FL Neutrophils (%) (Auto) 86.6 % Lymphocytes (%) (Auto) 8.0 % Monocytes (%) (Auto) 5.3 % Eosinophils (%) (Auto) 0.0 % Basophils (%) (Auto) 0.1 % Neutrophils # (Auto) 2.9 TH/MM3 Lymphocytes # (Auto) 0.3 TH/MM3 Monocytes # (Auto) 0.2 TH/MM3 Eosinophils # (Auto) 0.0 TH/MM3 Basophils # (Auto) 0.0 TH/MM3 CBC Comment AUTO DIFF Differential Comment AUTO DIFF CONFIRMED Platelet Estimate LOW Platelet Morphology Comment NORMAL Blood Urea Nitrogen 8 MG/DL Creatinine 0.35 MG/DL Random Glucose 138 MG/DL Total Protein 4.9 GM/DL Albumin 2.4 GM/DL Calcium Level 8.1 MG/DL Phosphorus Level 1.8 MG/DL Magnesium Level 2.1 MG/DL Alkaline Phosphatase 162 U/L Aspartate Amino Transf (AST/SGOT) 24 U/L Alanine Aminotransferase (ALT/SGPT) 29 U/L Total Bilirubin 0.8 MG/DL Sodium Level 139 MEQ/L Potassium Level 3.1 MEQ/L Chloride Level 102 MEQ/L Carbon Dioxide Level 29.5 MEQ/L Anion Gap 8 MEQ/L Estimat Glomerular Filtration Rate 193 ML/MIN Free Thyroxine 0.98 NG/DL Thyroid Stimulating Hormone 3rd Gen 1.590 uIU/ML Culture Results Microbiology Date/Time Source Procedure Growth Status 01/15/17 11:15 Sputum Endotracheal Gram Stain - Final Complete 01/15/17 11:15 Sputum Endotracheal Sputum Culture - Final RARE GROWTH NORMAL RESPIRATORY BASIA Complete Administered Medications Medications (Trade) Dose Ordered Sig/Armin Route PRN Reason Start Time Stop Time Status Last Admin Dose Admin Sennosides (Senokot) 17.2 mg Q12H PRN PO Moderate constipation 12/29/16 11:30 01/17/17 02:19 Nifedipine (Procardia Xl) 30 mg DAILY PO 01/06/17 09:00 Future Hold 01/17/17 08:32 Furosemide (Lasix) 20 mg DAILY PO 01/05/17 17:35 Future Hold 01/15/17 09:21 Lactulose (Lactulose Liq) 30 ml QID PRN PO severe constipation 01/10/17 13:00 01/11/17 08:42 Albuterol Sulfate (Albuterol Neb) 2.5 mg Q2HR NEB PRN NEB WHEEZING 01/11/17 19:30 01/15/17 10:55 IV Flush (NS Flush) 2 ml BID IV FLUSH 01/11/17 21:00 01/18/17 09:00 Pantoprazole Sodium (Protonix) 40 mg HS PO 01/11/17 21:00 01/17/17 21:38 Ondansetron HCl (Zofran Inj) 4 mg Q6H PRN IV PUSH NAUSEA OR VOMITING 01/11/17 19:30 01/15/17 05:58 Sodium Chloride 1,000 ml @ 30 mls/hr Q24H IV 01/11/17 21:00 01/14/17 21:00 Polyethylene Glycol (Miralax) 17 gm DAILY PO 01/12/17 09:00 01/18/17 09:00 Potassium Chloride (KCl) 10 meq DAILY PO 01/12/17 09:00 01/18/17 09:00 Ceftriaxone Sodium 1000 mg/ Sodium Chloride 100 ml @ 200 mls/hr Q24H IV 01/12/17 23:00 01/17/17 22:13 Chlorhexidine Gluconate (Peridex 0.12% Liq) 15 ml BID@08,20 MT 01/15/17 20:00 01/15/17 21:32 Methylprednisolone Sodium Succinate (SoluMEDROL INJ) 60 mg Q8H IV PUSH 01/15/17 12:00 01/18/17 04:01 Enoxaparin Sodium (Lovenox Inj) 40 mg Q24H SQ 01/15/17 12:00 Future Hold 01/15/17 12:54 Lactulose (Lactulose Liq) 30 ml DAILY NG 01/16/17 09:00 01/18/17 09:00 Docusate Sodium (Colace) 100 mg BID PO 01/16/17 09:00 01/18/17 09:00 Ferrous Sulfate (Ferrous Sulfate) 325 mg BID PO 01/16/17 21:00 01/18/17 09:00 Oxycodone/ Acetaminophen (Percocet 7.5-325 Mg) 1 tab Q6H PRN PO pain 5-10 01/16/17 18:15 01/18/17 04:00 Objective Remarks GENERAL: Middle aged female working with therapy SKIN: Warm and dry. HEAD: Normocephalic. EYES: No injection or drainage. NECK: Supple, trachea midline. CARDIOVASCULAR: +S1/S2 RESPIRATORY: diminished at left lung base. anterior valera clear. GASTROINTESTINAL: Abdomen soft, non-tender, nondistended. EXTREMITIES: No cyanosis. No edema NEUROLOGICAL: No obvious focal deficit. Awake, alert, and oriented x3. Assessment/Plan Problem List: (1) Pancytopenia ICD Codes: D61.818 - Other pancytopenia Plan: 01/18: Hemoglobin improved today after transfusion yesterday. Patient reports she will consider bone marrow biopsy as an outpatient. Plan to have her follow-up in clinic once discharged. Check CBC in a.m. --Pancytopenia with macrocytosis and normal B12. --suspect that she has myelodysplastic syndrome until proven otherwise. --will need bone marrow biopsy and aspirate. (declining at this time) --iron studies are consistent with anemia of chronic disease --blood transfusion if the hemoglobin is less than 8 and platelet transfusion if the platelet count is less than 15 or any bleeding . Assessment 56y/o female with pancytopenia with macrocytosis. h/o COPD Attending Statement The exam, history, and the medical decision-making described in the above note were completed with the assistance of the mid-level provider. I reviewed and agree with the findings presented. I attest that I had a [id number] encounter with the patient on the same day, and personally performed and documented my assessment and findings in the medical record. No new c/o wants CT out and go home. still decline BM bx Jo Grace Jan 18, 2017 10:50 Emil Soler MD Jan 18, 2017 18:33
[2017-01-18] MEDS ORDERED: POTASSIUM CHLORIDE 10 MEQ CONTROLLED RELEASE TAB PO ONE (11:00)
[2017-01-18] MEDS: POTASSIUM PHOSPHATE/SODIUM PHOSPHATE 250 MG TAB PO SCH ×3 (11:01→22:06)
[2017-01-18] MEDS: SOD PHOSPHATE/SOD BIPHOSPHATE (ADULT) ENEMA 133ML PR ONE ×2 (11:02→14:19)
--- NOTE | 2017-01-18 11:49 | RADRPT ---
EXAM DATE/TIME: 01/18/2017 11:08 [facility] COMPARISON: CHEST SINGLE AP, January 17, 2017, 9:04. INDICATIONS : Chest tube removal. MEDICAL HISTORY : Chronic obstructive pulmonary disease. SURGICAL HISTORY : Thoracotomy ENCOUNTER: Initial ACUITY: 1 week PAIN SCORE: 4/10 LOCATION: Bilateral chest FINDINGS: A single portable frontal view the chest shows interval removal of the left thoracostomy tubes. A sma ll subpulmonic pneumothorax is seen. Volume loss involving the left hemithorax is unchanged. Bilatera l pulmonary consolidations most pronounced within the left base are relatively stable. The heart is a t the upper limits of normal in terms of size. A right-sided central line remains. CONCLUSION: 1. Small left subpulmonic pneumothorax. 2. Bilateral pulmonary infiltrates. Art Tate Jr., MD on January 18, 2017 at 11:45 Board Certified Radiologist. This report was verified electronically.
[2017-01-18] MEDS: RESP: ALBUTEROL 2.5 MG/3 ML NEB (PRN) NEB (12:05)
--- NOTE | 2017-01-18 12:14 | HHI.PR ---
Subjective Remarks S/P thoracotomy and decortication . Chest tube is out . Hgb 8.9G C XR showed worse aeration on left. No fever. Objective Vital Signs Date Time Temp Pulse Resp B/P (MAP) Pulse Ox O2 Delivery O2 Flow Rate FiO2 01/18/17 12:04 22 01/18/17 12:00 96 01/18/17 11:00 100 Nasal Cannula 2.00 01/18/17 11:00 99 01/18/17 11:00 97.5 99 22 111/65 (80) 100 01/18/17 10:00 110 01/18/17 09:00 120 01/18/17 08:00 96 01/18/17 07:27 96 Nasal Cannula 2.00 01/18/17 07:00 98 Nasal Cannula 2.00 01/18/17 07:00 97.8 108 20 105/56 (72) 98 01/18/17 07:00 108 01/18/17 06:00 89 01/18/17 05:00 87 01/18/17 04:00 103 01/18/17 03:45 96 Nasal Cannula 2.00 01/18/17 03:45 97.7 106 18 114/67 (83) 96 01/18/17 03:00 80 01/18/17 02:00 87 01/18/17 01:00 85 01/18/17 00:00 93 01/17/17 23:20 97 Nasal Cannula 2.00 01/17/17 23:20 97.7 98 16 108/58 (75) 97 01/17/17 23:00 87 01/17/17 22:00 100 01/17/17 21:00 110 01/17/17 20:30 98 Nasal Cannula 2.00 01/17/17 20:30 97.9 104 18 108/69 (82) 98 01/17/17 20:00 96 01/17/17 19:56 98 Nasal Cannula 2.00 01/17/17 19:00 95 01/17/17 18:05 101 01/17/17 17:00 94 01/17/17 15:00 115 01/17/17 15:00 99 Nasal Cannula 2.00 01/17/17 15:00 98.1 109 17 104/65 (78) 99 I/O 11/14/17 11/14/01/17/17 01/18/17 01/18/17 01/18/17 07:00 15:00 23:00 07:00 15:00 23:00 Intake Total 420 ml 1545 ml 580 ml 300 ml Output Total 750 ml 1560 ml 80 ml 60 ml 800 ml Balance -330 ml -15 ml 500 ml 240 ml -800 ml Intake Oral 420 ml 625 ml 480 ml 300 ml IV Total 500 ml 100 ml Packed Cells 400 ml Blood Product IV Normal Saline Flush 20 ml Output Urine Total 750 ml 1500 ml 0 ml 800 ml Chest Tube Drainage Total 60 ml 80 ml 60 ml Bladder Scan Volume Amount 200 ml 200 ml 730 ml 730 ml # Voids 1 # Bowel Movements 0 0 0 Result Diagram: 01/18/1743601/18/17436 Objective Remarks GENERAL: This is an averagely built middle-aged white female who is alert HEENT: Head normocephalic. Pupils are reactive and equal. Tongue moist. Throat is clear. Nasal mucosa clear. NECK: Supple. No bruits, thyroid enlargement or lymphadenopathy. CHEST: Distant breath sounds at the left lung base and occ wheeze with crackles left chest . HEART: The heart sounds are irregular, S1-S2. No murmur. No S3. ABDOMEN: Soft and nontender. No organomegaly. Bowel sounds are active. EXTREMITIES: Edema 1+ with diminished peripheral pulses. Bilateral Foot deformity. NEUROLOGIC: Reflexes are 1+ . No deficits SKIN: Dry and scaly. Assessment and Plan Assessment and Plan IMPRESSION 1. COPD with acute exacerbation, resolved 2. S/p decortication left Chest 3. Atelectasis left lower lobe with mucus plugging. 4. Hyponatremia. 5. Abnormal liver enzymes 6. Anemia of chronic disease. Plan : 1. O2 2 L. 2. IS at bedside q3h 3. Taper solumedrol to 40 mg bid 4. Duoneb nebs tid. 5. CXR ,CBC in am. 6. Mucomyst 20 % nebs q6h. 7. Up with help 8. Anemia W/U and Bone marrow biopsy Venessa Chung MD Jan 18, 2017 12:14
--- NOTE | 2017-01-18 14:45 | HHI.PR ---
Subjective Remarks The patient is a 56-year-old female with past medical history of COPD, who presented to [facility] ED with complaints of coughing, wheezing. The patient states that she had food poisoning last week where she had nausea and diarrhea, after she ate suspicious food. She denies any worsening of dyspnea from baseline. In addition, she denies any constitutional symptoms. She quit smoking five and a half years ago and used to smoke one to two packs per day for about 30 years. Chest x-ray in the ER showed consolidation with large effusion and volume loss on the left. On further history she denies any hemoptysis, however, she reports 20 pounds weight loss in the last 4 months and decreased p.o. intake. She is being followed up by Dr. Chung her outpatient liner helper. The patient denies any use of oxygen at home, however, she is on bronchodilators p.r.n. Her laboratory data is significant for hyponatremia with sodium level 125, lactic acid level 2.1. On arrival to the ER she was tachycardic and tachypneic. When seen the patient is on 4 liters nasal cannula with saturation ranges between 95-100%. In the ER she was given Rocephin, azithromycin, Solu-Medrol, bronchodilator treatment and IV fluids. Her current blood pressure is 107/61. 12/30 Patient s/p CT guided thoracentesis and CT placement by IR yesterday. She is feeling better. Subjective: 12/31 She complains of pain and requests increased pain meds. Repeat imaging ordered per pulmonology to evaluate mass vs loculated effusion. On NC. [facility] RECONSULT NOTE 01/15/17 Critical care consulted for severe hypoxemic respiratory failure. On 01/11/17 patient had left thoracotomy for decortication, evacuation of complex loculated effusion, adhesiolysis by Dr. Gamboa. CXR 01/14/17 showed near complete whiteout of the left lung-pulmonary Dr. Ridley is following. Today a HALICAT was called as the patient was found profoundly hypoxemic in the 70s oxygen saturation. She was placed on 100% percent nonrebreather with improvement in saturation only to 81%. Stat ABG on 100% nonrebreather showed pH of 7.29 PCO2 of 62 pO2 of 53 and oxygen saturation 79%. Stat chest x-ray showed complete whiteout of the left lung. I discussed with the patient briefly, she is agreeable for intubation. I proceeded with endotracheal intubation and placed on mechanical ventilation -patient saturation gradually improved to 100%. Discussed with pulmonology Dr. Ridley. He plans to do bronchoscopy today afternoon. SUBJ 01/16: Patient had bronchoscopy by Dr. Ridley yesterday. Chest x-ray today shows improvement in aeration but still with volume loss left lower lung valera which is unchanged from the post thoracotomy chest x-rays. Wide-awake on vent tolerating CPAP will proceed with weaning trials 01-17 TRANSFERRED BACK TO OUR SERVICE EXTUBATED YESTERDAY GETTING BLOOD 1 UNIT PRBC TODAY PT AND OT DW RN AND PT LESS SOB THAN YESTERDAY 01-18 REFUSING BONE MARROW BIOPSY NO BLOOD TRANSFUSION TODAY NEED PT AND OT BECOMING MOBILE HAD CHEST TUBES OUT AM LABS HAD BM DW RN AND PT Objective Vitals Vital Signs Date Time Temp Pulse Resp B/P (MAP) Pulse Ox O2 Delivery O2 Flow Rate FiO2 01/18/17 14:00 89 01/18/17 13:00 103 01/18/17 12:15 96 21 01/18/17 12:04 22 01/18/17 12:00 96 01/18/17 11:00 100 Nasal Cannula 2.00 01/18/17 11:00 99 01/18/17 11:00 97.5 99 22 111/65 (80) 100 01/18/17 10:00 110 01/18/17 09:00 120 01/18/17 08:00 96 01/18/17 07:27 96 Nasal Cannula 2.00 01/18/17 07:00 98 Nasal Cannula 2.00 01/18/17 07:00 97.8 108 20 105/56 (72) 98 01/18/17 07:00 108 01/18/17 06:00 89 01/18/17 05:00 87 01/18/17 04:00 103 01/18/17 03:45 96 Nasal Cannula 2.00 01/18/17 03:45 97.7 106 18 114/67 (83) 96 01/18/17 03:00 80 01/18/17 02:00 87 01/18/17 01:00 85 01/18/17 00:00 93 01/17/17 23:20 97 Nasal Cannula 2.00 01/17/17 23:20 97.7 98 16 108/58 (75) 97 01/17/17 23:00 87 01/17/17 22:00 100 01/17/17 21:00 110 01/17/17 20:30 98 Nasal Cannula 2.00 01/17/17 20:30 97.9 104 18 108/69 (82) 98 01/17/17 20:00 96 01/17/17 19:56 98 Nasal Cannula 2.00 01/17/17 19:00 95 01/17/17 18:05 101 01/17/17 17:00 94 01/17/17 15:00 115 01/17/17 15:00 99 Nasal Cannula 2.00 01/17/17 15:00 98.1 109 17 104/65 (78) 99 I/O 01/17/17 01/17/17 01/17/17 01/18/17 01/18/17 01/18/17 07:00 15:00 23:00 07:00 15:00 23:00 Intake Total 420 ml 1545 ml 580 ml 300 ml Output Total 750 ml 1560 ml 80 ml 60 ml 800 ml Balance -330 ml -15 ml 500 ml 240 ml -800 ml Intake Oral 420 ml 625 ml 480 ml 300 ml IV Total 500 ml 100 ml Packed Cells 400 ml Blood Product IV Normal Saline Flush 20 ml Output Urine Total 750 ml 1500 ml 0 ml 800 ml Chest Tube Drainage Total 60 ml 80 ml 60 ml Bladder Scan Volume Amount 200 ml 200 ml 730 ml 730 ml # Voids 1 # Bowel Movements 0 0 0 Result Diagram: 01/18/17 0437 01/18/17 0437 Other Results Laboratory Tests Test 01/16/17 04:45 01/16/17 06:00 01/17/17 04:18 01/18/17 04:37 Blood Urea Nitrogen 7 MG/DL 9 MG/DL 8 MG/DL Creatinine 0.29 MG/DL 0.41 MG/DL 0.35 MG/DL Random Glucose 94 MG/DL 131 MG/DL 138 MG/DL Total Protein 4.2 GM/DL 4.2 GM/DL 4.9 GM/DL Albumin 1.7 GM/DL 1.8 GM/DL 2.4 GM/DL Calcium Level 7.3 MG/DL 7.7 MG/DL 8.1 MG/DL Magnesium Level 1.8 MG/DL 2.1 MG/DL 2.1 MG/DL Alkaline Phosphatase 118 U/L 123 U/L 162 U/L Aspartate Amino Transf (AST/SGOT) 20 U/L 19 U/L 24 U/L Alanine Aminotransferase (ALT/SGPT) 15 U/L 19 U/L 29 U/L Total Bilirubin 0.6 MG/DL 0.4 MG/DL 0.8 MG/DL Sodium Level 136 MEQ/L 136 MEQ/L 139 MEQ/L Potassium Level 3.1 MEQ/L 3.6 MEQ/L 3.1 MEQ/L Chloride Level 98 MEQ/L 102 MEQ/L 102 MEQ/L Carbon Dioxide Level 26.2 MEQ/L 28.1 MEQ/L 29.5 MEQ/L Anion Gap 12 MEQ/L 6 MEQ/L 8 MEQ/L Estimat Glomerular Filtration Rate 239 ML/MIN 160 ML/MIN 193 ML/MIN Protein Corrected Calcium 9.0 MG/DL Ferritin 418 NG/ML Folate 3.9 NG/ML White Blood Count 3.4 TH/MM3 3.3 TH/MM3 3.4 TH/MM3 Red Blood Count 2.15 MIL/MM3 1.99 MIL/MM3 2.64 MIL/MM3 Hemoglobin 7.4 GM/DL 7.0 GM/DL 8.9 GM/DL Hematocrit 22.1 % 20.5 % 26.5 % Mean Corpuscular Volume 102.5 FL 103.4 FL 100.6 FL Mean Corpuscular Hemoglobin 34.4 PG 35.1 PG 33.9 PG Mean Corpuscular Hemoglobin Concent 33.6 % 33.9 % 33.7 % Red Cell Distribution Width 20.9 % 21.8 % 20.9 % Platelet Count 49 TH/MM3 45 TH/MM3 48 TH/MM3 Mean Platelet Volume 8.9 FL 9.4 FL 9.5 FL Neutrophils (%) (Auto) 82.6 % 84.6 % 86.6 % Lymphocytes (%) (Auto) 13.5 % 10.5 % 8.0 % Monocytes (%) (Auto) 3.8 % 4.9 % 5.3 % Eosinophils (%) (Auto) 0.0 % 0.0 % 0.0 % Basophils (%) (Auto) 0.1 % 0.0 % 0.1 % Neutrophils # (Auto) 2.8 TH/MM3 2.8 TH/MM3 2.9 TH/MM3 Lymphocytes # (Auto) 0.5 TH/MM3 0.3 TH/MM3 0.3 TH/MM3 Monocytes # (Auto) 0.1 TH/MM3 0.2 TH/MM3 0.2 TH/MM3 Eosinophils # (Auto) 0.0 TH/MM3 0.0 TH/MM3 0.0 TH/MM3 Basophils # (Auto) 0.0 TH/MM3 0.0 TH/MM3 0.0 TH/MM3 CBC Comment AUTO DIFF AUTO DIFF AUTO DIFF Differential Comment AUTO DIFF CONFIRMED AUTO DIFF CONFIRMED AUTO DIFF CONFIRMED Platelet Estimate LOW LOW LOW Platelet Morphology Comment NORMAL NORMAL NORMAL Target Cells Phosphorus Level 1.9 MG/DL 1.8 MG/DL Lactic Acid Level 0.7 mmol/L Random Cortisol 11.9 MCG/DL Free Thyroxine 0.98 NG/DL Thyroid Stimulating Hormone 3rd Gen 1.590 uIU/ML Test 01/18/17 14:00 Imaging Last Impressions Chest X-Ray 01/18/17 1100 Signed Impressions: Service Date/Time: Wednesday, January 18, 2017 11:08 - CONCLUSION: 1. Small left subpulmonic pneumothorax. 2. Bilateral pulmonary infiltrates. Art Tate Jr., MD Abdomen X-Ray 01/15/17 1820 Signed Impressions: Service Date/Time: Sunday, January 15, 2017 18:30 - CONCLUSION: 1. No obvious obstruction or pneumoperitoneum on this limited view of the abdomen. 2. Nasogastric tube with the tip projecting over the proximal gastric body. 3. Volume loss in the left hemithorax with stable position of 2 thoracostomy tubes and left basilar consolidation. . Yogesh Isbell MD Chest CT 12/31/16 0000 Signed Impressions: Service Date/Time: Saturday, December 31, 2016 14:44 - CONCLUSION: 1. Interval placement of left-sided chest tube with slight decrease in the complex low-density fluid collection in the lower left hemithorax. 2. Volume loss remains in the left hemithorax with consolidation in the left infrahilar region 3. New small right pleural effusion and consolidation in the right posterior lower lobe 4. The previously noted fluid and debris in the left mainstem bronchus is no longer present. Kashif Garcia MD Chest Ultrasound 12/30/16 0000 Signed Impressions: Service Date/Time: Friday, December 30, 2016 09:59 - CONCLUSION: No focal collections of anechoic free fluid. Prominent amount of heterogeneous echotexture material surrounding the left lower chest. Art Willard MD Chest Tube Insertion 12/29/16 1224 Signed Impressions: Service Date/Time: December 13:22 - CONCLUSION: Uncomplicated CT-guided thoracentesis. David Mora MD Objective Remarks GENERAL: Awake alert oriented 3 --talkative and cooperative SKIN: Warm and dry. No obvious rashes HEAD: Atraumatic. Normocephalic. EYES: Pupils equal and round. No scleral icterus. No injection or drainage. Extraocular muscles intact ENT: No nasal bleeding or discharge. Mucous membranes pink and moist. Tongue is midline NECK: Trachea midline. No JVD. Supple CARDIOVASCULAR: Regular rate and rhythm. S1-S2 no S3 or S4 no heave or thrill or rub RESPIRATORY: No accessory muscle use. Breath sounds equal bilaterally. Coarse breath sounds bilaterally GASTROINTESTINAL: Abdomen soft, non-tender, nondistended. Hepatic and splenic margins not palpable. MUSCULOSKELETAL: Extremities without clubbing, cyanosis, or edema. No obvious deformities. Bilateral lower extremity weakness NEUROLOGICAL: Awake and alert. No obvious cranial nerve deficits. Motor grossly within normal limits. 4 out of 5 muscle strength in the arms and 3 out of 5 muscle strength in the legs. Normal speech. PSYCHIATRIC: Appropriate mood and affect; insight and judgment ABnormal. Procedures CT guided thoracentesis with L chest tube placement 12/29 Left thoracoscopic exploration, left thoracotomy for decortication, evacuation of complex loculated effusion, adhesiolysis 01/11/17- INTUBATED 01-16 EXTUBATED 01-16 BRONCHOSCOPY WITH BAL OF LEFT SIDE Medications and IVs Current Medications Sodium Chloride (NS Flush) 2 ml UNSCH PRN IVF FLUSH AFTER USING IV ACCESS Last administered on 01/08/17 21:04; Start 12/29/16 at 10:15; Stop 01/10/17 at 17: 47; Status DC Methylprednisolone Sodium Succinate (SoluMEDROL INJ) 125 mg ONCE ONCE IV PUSH Last administered on 12/29/16 10:17; Start 12/29/16 at 10:15; Stop 12/29/16 at 10:16; Status DC Albuterol/ Ipratropium (Duoneb Neb) 1 ampule ONCE ONCE INH Last administered on 12/29/16 10:13; Start 12/29/16 at 10:15; Stop 12/29/16 at 10:16; Status DC Albuterol Sulfate (Albuterol Neb) 2.5 mg Q15M INH Last administered on 10:13; Start 12/29/16 at 10:15; Stop 12/29/16 at 10:31; Status DC Sodium Chloride 1,000 ml @ 125 mls/hr Q8H IV Last administered on 12/29/16 10:17; Start 12/29/16 at 10:15; Stop 12/29/16 at 11:35; Status DC Ondansetron HCl (Zofran Inj) 4 mg ONCE ONCE IV PUSH Last administered on 12/29 10:41; Start 12/29/16 at 10:45; Stop 12/29/16 at 10:46; Status DC Ceftriaxone Sodium 1000 mg/ Sodium Chloride 100 ml @ 200 mls/hr ONCE ONCE IV Last administered on 12/29/16 11:54; Start 12/29/16 at 11:15; Stop 12/29/16 at 11:44; Status DC Azithromycin 500 mg/Sodium Chloride 250 ml @ 250 mls/hr ONCE ONCE IV Last administered on 12/29/16 12:31; Start 12/29/16 at 11:15; Stop 12/29/16 at 12 :14; Status DC Pantoprazole Sodium (Protonix Inj) 40 mg DAILY IV PUSH Last administered on 08:54; Start 12/29/16 at 12:00; Stop 12/31/16 at 14:05; Status DC Albuterol/ Ipratropium (Duoneb Neb) 1 ampule Q4HR NEB INH Last administered on 01/02/17 07:58; Start 12/29/16 at 12:00; Stop 01/02/17 at 11:59; Status DC Albuterol/ Ipratropium (Duoneb Neb) 1 ampule Q2HR NEB PRN INH WHEEZING Last administered on 01/04/17 10:14; Start 12/29/16 at 11:30; Stop 01/11/17 at 20: 29; Status DC Miscellaneous Information 1 [id number] Last administered on 12/29/16 21:22; Start 12/29/16 at 11:30; Stop 01/07/17 at 23:35; Status DC Chlorhexidine Gluconate (Chlorhexidine 2% Cloth) Taper DAILY@04 TOP Last administered on 01/01/17 04:00; Start 12/30/16 at 04:00; Stop 01/07/17 at 23: 35; Status DC Chlorhexidine Gluconate (Chlorhexidine 2% Cloth) 3 pack UNSCH PRN TOP HYGIENIC CARE; Start 12/29/16 at 11:30; Stop 01/07/17 at 23:35; Status DC Senna/Docusate Sodium (Elvie-Colace) 1 tab BID PO Last administered on 08:44; Start 12/29/16 at 21:00; Stop 01/11/17 at 20:29; Status DC Magnesium Hydroxide (Milk Of Magnesia Liq) 30 ml Q12H PRN PO Mild constipation Last administered on 01/09/17 20:33; Start 12/29/16 at 11:30; Stop 01/11/17 at 20:29; Status DC Sennosides (Senokot) 17.2 mg Q12H PRN PO Moderate constipation Last administered on 01/17/17 02:19; Start 12/29/16 at 11:30 Bisacodyl (Dulcolax Supp) 10 mg DAILY PRN RECTAL SEVERE CONSITIPATION; Start 12/29/16 at 11:30; Stop 01/17/17 at 14:59; Status DC Lactulose (Lactulose Liq) 30 ml DAILY PRN PO SEVERE CONSITIPATION; Start 12/29 at 11:30; Status Cancel Sodium Chloride 1,000 ml @ 84 mls/hr [id number] IV Last administered on 17:26; Start 12/29/16 at 11:30; Stop 12/30/16 at 08:37; Status DC Potassium Chloride 100 ml @ 50 mls/hr Q2H PRN IV For Potassium 2.8 - 3.2 mEq/L ; Start 12/29/16 at 11:30; Stop 12/31/16 at 14:05; Status DC Potassium Chloride 100 ml @ 50 mls/hr Q2H PRN IV For Potassium 2.8 - 3.2 mEq/L ; Start 12/29/16 at 11:30; Stop 12/31/16 at 14:05; Status DC Potassium Bicarb/ Potassium Chloride (K-Lyte Cl Eff) 50 meq UNSCH PRN PO For Potassium 3.3 - 3.5 mEq/L; Start 12/29/16 at 11:30; Stop 12/31/16 at 14:05; Status DC Potassium Chloride 100 ml @ 25 mls/hr UNSCH PRN IV For Potassium 3.3 - 3.5 mEq /L; Start 12/29/16 at 11:30; Stop 12/31/16 at 14:05; Status DC Potassium Chloride 100 ml @ 50 mls/hr Q2H PRN IV For Potassium 3.3 - 3.5 mEq/L ; Start 12/29/16 at 11:30; Stop 12/31/16 at 14:05; Status DC Magnesium Sulfate 4 gm/Sodium Chloride 100 ml @ 50 mls/hr UNSCH PRN IV For Magnesium 0.9 - 1.1 mg/dL; Start 12/29/16 at 11:30; Stop 12/31/16 at 14:05; Status DC Magnesium Oxide (Mag-Ox) 800 mg UNSCH PRN PO For Magnesium 1.2 - 1.6 mg/dL; Start 12/29/16 at 11:30; Stop 12/31/16 at 14:05; Status DC Magnesium Sulfate 2 gm/Sodium Chloride 100 ml @ 50 mls/hr UNSCH PRN IV For Magnesium 1.2 - 1.6 mg/dL; Start 12/29/16 at 11:30; Stop 12/31/16 at 14:05; Status DC Potassium Phosphate (K-Phos) 2,000 mg Q4H PRN PO For Phosphorus < 2.5 mg/dL; Start 12/29/16 at 11:30; Stop 12/31/16 at 14:05; Status DC Sodium Phosphate 30 mmol/Sodium Chloride 250 ml @ 42 mls/hr UNSCH PRN IV For Phosphorus < 2.5 mg/dL; Start 12/29/16 at 11:30; Stop 12/31/16 at 14:05; Status DC Potassium Phosphate (K-Phos) 2,000 mg UNSCH PRN PO/TUBE SEE LABEL COMMENTS; Start 12/29/16 at 11:30; Stop 12/31/16 at 14:05; Status DC Potassium Phosphate 30 mmol/ Sodium Chloride 260 ml @ 42 mls/hr UNSCH PRN IV SEE LABEL COMMENTS Last administered on 12/30/16 11:46; Start 12/29/16 at 11: 30; Stop 12/31/16 at 14:05; Status DC Dextrose (D50w (Vial) Inj) 50 ml UNSCH PRN IV PUSH HYPOGLYCEMIA-SEE COMMENTS; Start 12/29/16 at 11:30; Stop 01/07/17 at 23:34; Status DC Glucagon (Glucagon Inj) 1 mg UNSCH PRN OTHER HYPOGLYCEMIA-SEE COMMENTS; Start 12/29/16 at 11:30; Stop 01/07/17 at 23:34; Status DC Insulin Human Regular (NovoLIN R SUPPLEMENTAL SCALE) 1 Q6H SQ Last administered on 01/01/17 17:30; Start 12/29/16 at 11:30; Stop 01/07/17 at 23: 34; Status DC Ceftriaxone Sodium 1000 mg/ Sodium Chloride 100 ml @ 200 mls/hr Q24H IV Last administered on 01/03/17 12:20; Start 12/30/16 at 12:00; Stop 01/04/17 at 11: 59; Status DC Azithromycin 500 mg/Sodium Chloride 250 ml @ 250 mls/hr Q24H IV Last administered on 12/31/16 11:48; Start 12/30/16 at 13:00; Stop 12/31/16 at 15 :20; Status DC Methylprednisolone Sodium Succinate (SoluMEDROL INJ) 60 mg Q6HR IV PUSH Last administered on 12/30/16 12:31; Start 12/29/16 at 16:00; Stop 12/30/16 at 13 :03; Status DC Lidocaine/ Epinephrine (Xylocaine-Epi 1%-1:100,000 Inj) 20 ml STK-MED ONCE .ROUTE Last administered on 12/29/16 12:38; Start 12/29/16 at 12:38; Stop 12/29/16 at 12:39; Status DC Fentanyl Citrate (fentaNYL INJ) 100 mcg STK-MED ONCE .ROUTE Last administered on 12/29/16 12:47; Start 12/29/16 at 12:47; Stop 12/29/16 at 12:48; Status DC Midazolam HCl (Versed Inj) 2 mg STK-MED ONCE .ROUTE Last administered on 12:47; Start 12/29/16 at 12:47; Stop 12/29/16 at 12:48; Status DC Iohexol (Omnipaque 350 Inj) 69 ml STK-MED ONCE IVCONTRAST Last administered on 12/29/16 13:33; Start 12/29/16 at 13:33; Stop 12/29/16 at 13:34; Status DC Ephedrine Sulfate (ePHEDrine/NS 25 MG/5 ML SYR) 25 mg STK-MED ONCE .ROUTE ; Start 12/29/16 at 13:40; Stop 12/29/16 at 13:41; Status DC Acetaminophen (Tylenol) 650 mg Q6H PRN PO PAIN Last administered on 12/30/16 04:13; Start 12/30/16 at 04:15; Stop 01/02/17 at 11:16; Status DC Oxycodone/ Acetaminophen (Percocet 5-325 Mg) 1 tab ONCE ONCE PO Last administered on 12/30/16 09:39; Start 12/30/16 at 09:30; Stop 12/30/16 at 09 :31; Status DC Methylprednisolone Sodium Succinate (SoluMEDROL INJ) 40 mg Q6HR IV PUSH Last administered on 01/01/17 05:12; Start 12/30/16 at 18:00; Stop 01/01/17 at 11 :40; Status DC Morphine Sulfate (Morphine Inj) 1 mg ONCE ONCE IV PUSH Last administered on 15:06; Start 12/30/16 at 15:00; Stop 12/30/16 at 15:01; Status DC Acetaminophen (Tylenol) 650 mg Q6H PRN PO PAIN 1-2; Start 12/30/16 at 22:30 Morphine Sulfate (Morphine Inj) 1 mg Q4H PRN IV PAIN 5-10 Last administered on 12/31/16 11:12; Start 12/30/16 at 22:30; Stop 12/31/16 at 13:46; Status DC Morphine Sulfate (Morphine Inj) 2 mg Q4H PRN IV BREAKTHROUGH PAIN 6-10 Last administered on 01/11/17 13:33; Start 12/31/16 at 14:30; Stop 01/11/17 at 19: 27; Status DC Acetaminophen/ Hydrocodone Bitart (Otis 5-325 Mg) 1 tab Q6H PRN PO PAIN 3-5 Last administered on 01/02/17 05:18; Start 12/31/16 at 13:45; Stop 01/09/17 at 09:01; Status DC Acetaminophen/ Hydrocodone Bitart (Otis 5-325 Mg) 2 tab Q6H PRN PO PAIN 6-10 Last administered on 01/09/17 08:39; Start 12/31/16 at 13:45; Stop 01/09/17 at 09:01; Status DC Pantoprazole Sodium (Protonix) 40 mg DAILY PO Last administered on 01/11/17 08 :41; Start 01/01/17 at 09:00; Stop 01/11/17 at 20:29; Status DC Iohexol (Omnipaque 350 Inj) 70 ml STK-MED ONCE IVCONTRAST Last administered on 12/31/16 14:59; Start 12/31/16 at 14:59; Stop 12/31/16 at 15:00; Status DC Azithromycin 500 mg/Sodium Chloride 250 ml @ 250 mls/hr Q24H IV Last administered on 01/04/17 11:57; Start 01/02/17 at 13:00; Stop 01/04/17 at 14: 46; Status DC Methylprednisolone Sodium Succinate (SoluMEDROL INJ) 40 mg Q12HR IV PUSH Last administered on 01/03/17 07:37; Start 01/01/17 at 21:00; Stop 01/03/17 at 13 :51; Status DC Methylprednisolone Sodium Succinate (SoluMEDROL INJ) 40 mg DAILY IV PUSH Last administered on 01/05/17 08:15; Start 01/04/17 at 09:00; Stop 01/05/17 at 18:19 ; Status DC Nifedipine (Procardia Xl) 60 mg ONCE ONCE PO Last administered on 01/05/17 17 :49; Start 01/05/17 at 17:30; Stop 01/05/17 at 17:32; Status DC Nifedipine (Procardia Xl) 30 mg DAILY PO Last administered on 01/17/17 08:32 ; Start 01/06/17 at 09:00; Status Future Hold Furosemide (Lasix) 20 mg DAILY PO Last administered on 01/15/17 09:21; Start 01/05/17 at 17:35; Status Future Hold Prednisone (Deltasone) 10 mg DAILY PO Last administered on 01/15/17 09:21; Start 01/08/17 at 09:00; Stop 01/17/17 at 14:59; Status DC Acetaminophen/ Hydrocodone Bitart (Otis 5-325 Mg) 1 tab Q4H PRN PO PAIN 3-5; Start 01/09/17 at 09:00; Stop 01/11/17 at 19:27; Status DC Acetaminophen/ Hydrocodone Bitart (Otis 5-325 Mg) 2 tab Q4H PRN PO PAIN 6-10 Last administered on 01/11/17 08:47; Start 01/09/17 at 09:15; Stop 01/11/17 at 19:27; Status DC Lactulose (Lactulose Liq) 30 ml ONCE ONCE PO ; Start 01/10/17 at 13:00; Stop 01/10/17 at 13:19; Status DC Lactulose (Lactulose Liq) 30 ml QID PRN PO severe constipation Last administered on 01/11/17 08:42; Start 01/10/17 at 13:00 Simethicone (Phazyme Chew) 125 mg ONCE ONCE PO Last administered on 01/10/17 14:59; Start 01/10/17 at 13:30; Stop 01/10/17 at 13:31; Status DC Sodium Chloride (NS Flush) 2 ml BID IV FLUSH Last administered on 01/11/17 09: 00; Start 01/10/17 at 21:00; Stop 01/11/17 at 20:29; Status DC Sodium Chloride (NS Flush) 2 ml UNSCH PRN IV FLUSH FLUSH AFTER USING IV ACCESS ; Start 01/10/17 at 16:15; Stop 01/11/17 at 20:29; Status DC Cefazolin Sodium 500 mg/Sodium Chloride 505 ml @ 0 mls/hr [employer] IRRIGATION ; Start 01/10/17 at 16:15; Stop 01/17/17 at 14:59; Status DC Cefazolin Sodium/ Dextrose 50 ml @ 150 mls/hr [employer] IV Last administered on 01/11/17 16:17; Start 01/10/17 at 16:15; Stop 01/17/17 at 14:59; Status DC Chlorhexidine Gluconate (Hibiclens 4% Top Soln) 1 applic [employer] TOPICAL Last administered on 01/11/17 08:42; Start 01/10/17 at 16:15; Stop 01/12/17 at 08:40 ; Status DC Dextrose (D50w (Vial) Inj) 50 ml UNSCH PRN IV PUSH HYPOGLYCEMIA-SEE COMMENTS; Start 01/10/17 at 16:15 Lactated Ringer's 1,000 ml @ 30 mls/hr Q24H PRN IV SEE LABEL COMMENTS Last administered on 01/11/17 14:53; Start 01/10/17 at 18:30; Stop 01/11/17 at 20:23 ; Status DC Sodium Chloride 500 ml @ 30 mls/hr [id number] PRN IV SEE LABEL COMMENTS; Start at 18:30; Stop 01/11/17 at 20:23; Status DC Metoprolol Tartrate (Lopressor) 25 mg [employer] PRN PO SEE LABEL COMMENTS; Start 01/10/17 at 18:30; Stop 01/11/17 at 20:23; Status DC Povidone Iodine (Betadine 5% Antisepsis Kit) 1 applic [employer] PRN EACH NARE SEE LABEL COMMENTS; Start 01/10/17 at 18:30; Stop 01/11/17 at 20:23; Status DC Chlorhexidine Gluconate (Chlorhexidine 2% Cloth) 3 pack [employer] LEAD PRN TOPICAL SEE LABEL COMMENTS; Start 01/10/17 at 18:30; Stop 01/12/17 at 08:40; Status DC Insulin Human Regular (NovoLIN R INJ) See Protocol Table ... [employer] LEAD PRN SQ SEE PROTOCOL TABLE; Start 01/10/17 at 18:30; Stop 01/11/17 at 20:23; Status DC Albuterol/ Ipratropium (Duoneb Neb) 1 ampule Q6HR NEB NEB Last administered on 01/11/17 09:40; Start 01/10/17 at 22:00; Stop 01/11/17 at 20:29; Status DC Bupivacaine HCl (Marcaine Pf 0.5% Inj) 30 ml ONCE ONCE INFIL Last administered on 01/11/17 17:51; Start 01/11/17 at 17:51; Stop 01/11/17 at 17:53 ; Status DC Albuterol Sulfate (Albuterol Neb) 2.5 mg Q6HR NEB NEB Last administered on 07:08; Start 01/11/17 at 22:00; Stop 01/13/17 at 12:20; Status DC Albuterol Sulfate (Albuterol Neb) 2.5 mg Q2HR NEB PRN NEB WHEEZING Last administered on 01/18/17 12:05; Start 01/11/17 at 19:30 IV Flush (NS Flush) 2 ml BID IV FLUSH Last administered on 01/18/17 09:00; Start 01/11/17 at 21:00 IV Flush (NS Flush) 2 ml UNSCH PRN IV FLUSH FLUSH AFTER USING IV ACCESS; Start 01/11/17 at 19:30 Miscellaneous Information (Post-op Orders (for Pharmacy)) STAT ONCE OTHER ; Start 01/11/17 at 19:30; Stop 01/11/17 at 20:27; Status DC Pantoprazole Sodium (Protonix) 40 mg HS PO Last administered on 01/17/17 21: 38; Start 01/11/17 at 21:00 Ondansetron HCl (Zofran Inj) 4 mg Q6H PRN IV PUSH NAUSEA OR VOMITING Last administered on 01/15/17 05:58; Start 01/11/17 at 19:30 Docusate Calcium (Surfak) 240 mg HS PO Last administered on 01/11/17 23:35; Start 01/11/17 at 21:00; Stop 01/12/17 at 08:40; Status DC Magnesium Hydroxide (Milk Of Magnesia Liq) 30 ml DAILY PRN PO MILD CONSTIPATION ; Start 01/11/17 at 19:30 Acetaminophen 100 ml @ 400 mls/hr Q6H IV Last administered on 01/12/17 19:24 ; Start 01/11/17 at 21:00; Stop 01/12/17 at 15:14; Status DC Naloxone HCl (Narcan Inj) 0.4 mg UNSCH PRN IV PUSH RESPIRATORY RATE LESS THAN 10; Start 01/11/17 at 19:30; Stop 01/16/17 at 18:00; Status DC Morphine Sulfate (Morphine 1 Mg/ ml OPERATIONS RESEARCH DIRECTOR) 30 mg UNSCH IV Last administered on 09:29; Start 01/11/17 at 19:30; Stop 01/16/17 at 18:00; Status DC OPERATIONS RESEARCH DIRECTOR Dosage Infused (Pha) 1 Q8HR .XX Last administered on 01/15/17 06:00; Start 01/11/17 at 22:00; Stop 01/16/17 at 18:00; Status DC Morphine Sulfate (*morphine INJ PERIprocedure ONLY) 8 mg STK-MED ONCE .ROUTE Last administered on 01/11/17 20:10; Start 01/11/17 at 20:08; Stop 01/12/17 at 08:40; Status DC Morphine Sulfate (*morphine INJ PERIprocedure ONLY) 8 mg STK-MED ONCE .ROUTE Last administered on 01/11/17 20:30; Start 01/11/17 at 20:22; Stop 01/12/17 at 08:40; Status DC Meperidine HCl (*DEMEROL INJ PERIprocedural ONLY) 25 mg STK-MED ONCE .ROUTE Last administered on 01/11/17 20:23; Start 01/11/17 at 20:22; Stop 01/12/17 at 08:40; Status DC Morphine Sulfate (Morphine 1 Mg/ ml OPERATIONS RESEARCH DIRECTOR) 30 mg STK-MED ONCE .ROUTE ; Start 01/11 at 20:25; Stop 01/11/17 at 20:26; Status DC Sodium Chloride 1,000 ml @ 30 mls/hr Q24H IV Last administered on 01/14/17 21:00; Start 01/11/17 at 21:00 Miscellaneous Information ALL NURSING DEPARTME... UNSCH PRN .XX SEE LABEL COMMENTS; Start 01/11/17 at 19:55; Stop 01/12/17 at 19:54; Status DC Polyethylene Glycol (Miralax) 17 gm DAILY PO Last administered on 01/18/17 09 :00; Start 01/12/17 at 09:00 Potassium Chloride (KCl) 30 meq ONCE ONCE PO Last administered on 01/12/17 10 :07; Start 01/12/17 at 08:45; Stop 01/12/17 at 08:46; Status DC Potassium Chloride (KCl) 10 meq DAILY PO Last administered on 01/18/17 09:00 ; Start 01/12/17 at 09:00 Cefazolin Sodium 1000 mg/Sodium Chloride 100 ml @ 200 mls/hr Q8H IV ; Start at 15:45; Stop 01/12/17 at 15:45; Status DC Cefazolin Sodium 1000 mg/Sodium Chloride 100 ml @ 200 mls/hr Q8H IV Last administered on 01/13/17 08:04; Start 01/12/17 at 16:00; Stop 01/13/17 at 08: 19; Status DC Ceftriaxone Sodium 1000 mg/ Sodium Chloride 100 ml @ 200 mls/hr Q24H IV Last administered on 01/17/17 22:13; Start 01/12/17 at 23:00 Furosemide (Lasix Inj) 20 mg ONCE ONCE IV PUSH Last administered on 13:08; Start 01/13/17 at 14:00; Stop 01/13/17 at 14:01; Status DC Potassium Chloride (KCl) 20 meq ONCE ONCE PO Last administered on 01/13/17 13:07; Start 01/13/17 at 14:00; Stop 01/13/17 at 14:01; Status DC Albuterol Sulfate (Albuterol Neb) 2.5 mg Q6HR WHILE AWAKE NEB INH Last administered on 01/15/17 09:42; Start 01/13/17 at 14:00; Stop 01/15/17 at 10 :45; Status DC Furosemide (Lasix Inj) 20 mg ONCE ONCE IV PUSH Last administered on 18:49; Start 01/13/17 at 17:00; Stop 01/13/17 at 17:01; Status DC Potassium Chloride 100 ml @ 50 mls/hr Q2H IV Last administered on 01/14/17 11:26; Start 01/14/17 at 08:00; Stop 01/14/17 at 11:59; Status DC Etomidate (Amidate Inj) 40 mg STK-MED ONCE .ROUTE Last administered on 10:58; Start 01/15/17 at 10:08; Stop 01/15/17 at 10:09; Status DC Midazolam HCl (Versed Inj) 5 mg STK-MED ONCE .ROUTE Last administered on 10:57; Start 01/15/17 at 10:09; Stop 01/15/17 at 10:10; Status DC Albuterol Sulfate (Albuterol Neb) 2.5 mg Q4HR NEB PRN NEB DYSPNEA; Start 01/15 at 10:30 Propofol 50 ml @ As Directed STK-MED ONCE .ROUTE Last administered on 10:59; Start 01/15/17 at 10:18; Stop 01/15/17 at 10:19; Status DC Chlorhexidine Gluconate (Peridex 0.12% Liq) 15 ml BID@08,20 MT Last administered on 01/15/17 21:32; Start 01/15/17 at 20:00 Propofol 100 ml @ 2.034 mls/ hr TITRATE PRN IV SEDATION Last administered on 01/16/17 05:49; Start 01/15/17 at 10:30; Stop 01/16/17 at 18:00; Status DC Fentanyl Citrate 250 ml @ 5 mls/hr TITRATE PRN IV SEDATION Last administered on 01/15/17 18:25; Start 01/15/17 at 10:30; Stop 01/16/17 at 18:00; Status DC Albuterol/ Ipratropium (Duoneb Neb) 1 ampule Q4HR NEB NEB Last administered on 01/18/17 07:22; Start 01/15/17 at 12:00; Stop 01/18/17 at 10:28; Status DC Methylprednisolone Sodium Succinate (SoluMEDROL INJ) 60 mg Q12H IV PUSH ; Start 01/15/17 at 12:00; Stop 01/15/17 at 12:00; Status DC Methylprednisolone Sodium Succinate (SoluMEDROL INJ) 60 mg Q8H IV PUSH Last administered on 01/18/17 11:01; Start 01/15/17 at 12:00; Stop 01/18/17 at 12 :11; Status DC Enoxaparin Sodium (Lovenox Inj) 40 mg Q24H SQ Last administered on 01/15/17 12:54; Start 01/15/17 at 12:00; Status Future Hold Ferrous Sulfate (Ferrous Sulfate Liq) 300 mg BID PO Last administered on 09:05; Start 01/15/17 at 14:30; Stop 01/16/17 at 17:41; Status DC Acetylcysteine (Mucomyst 20% Neb) 2 ml Q6HR NEB NEB ; Start 01/15/17 at 16:00 ; Stop 01/15/17 at 17:41; Status DC Non-Formulary Medication 2 ML NEB EVERY 6 HOURS Q6HR NEB NEB Last administered on 01/17/17 04:25; Start 01/15/17 at 18:00; Stop 01/18/17 at 10 :41; Status DC Potassium Bicarb/ Potassium Chloride (K-Lyte Cl Eff) 25 meq ONCE ONCE PO Last administered on 01/16/17 07:26; Start 01/16/17 at 06:45; Stop 01/16/17 at 06:51; Status DC Lactulose (Lactulose Liq) 30 ml DAILY NG Last administered on 01/18/17 09:00 ; Start 01/16/17 at 09:00 Docusate Sodium (Colace) 100 mg BID PO Last administered on 01/18/17 09:00; Start 01/16/17 at 09:00 Magnesium Sulfate/ Dextrose 100 ml @ 100 mls/hr ONCE ONCE IV Last administered on 01/16/17 08:57; Start 01/16/17 at 08:45; Stop 01/16/17 at 09 :44; Status DC Sodium Chloride 250 ml @ 0 mls/hr BOLUS ONCE IV Last administered on 10:30; Start 01/16/17 at 10:30; Stop 01/16/17 at 10:31; Status DC Sodium Chloride 500 ml @ 500 mls/hr BOLUS ONCE IV Last administered on 13:11; Start 01/16/17 at 13:15; Stop 01/16/17 at 14:14; Status DC Sodium Chloride 500 ml @ 500 mls/hr Q1H ONCE IV Last administered on 17:36; Start 01/16/17 at 17:30; Stop 01/16/17 at 18:29; Status DC Ferrous Sulfate (Ferrous Sulfate) 325 mg BID PO Last administered on 09:00; Start 01/16/17 at 21:00 Oxycodone/ Acetaminophen (Percocet 7.5-325 Mg) 1 tab Q6H PRN PO pain 5-10 Last administered on 01/18/17 11:02; Start 01/16/17 at 18:15 Albumin Human 500 ml @ 250 mls/hr ONCE ONCE IV Last administered on 04:26; Start 01/17/17 at 03:45; Stop 01/17/17 at 05:44; Status DC Furosemide (Lasix Inj) 40 mg STK-MED ONCE .ROUTE Last administered on 09:04; Start 01/17/17 at 09:04; Stop 01/17/17 at 14:59; Status DC Potassium Bicarb/ Potassium Chloride (K-Lyte Cl Eff) 25 meq ONCE ONCE PO Last administered on 01/18/17 09:00; Start 01/18/17 at 09:00; Stop 01/18/17 at 09:01; Status DC Potassium Chloride (KCl) 30 meq ONCE ONCE PO ; Start 01/18/17 at 11:00; Stop 01/18/17 at 11:00; Status DC Potassium Phos/ Sodium Phos (K-Phos Neutral) 250 mg Q8HR PO Last administered on 01/18/17 13:40; Start 01/18/17 at 08:30 Bisacodyl (Dulcolax Supp) 10 mg ONCE ONCE RECTAL Last administered on 11:01; Start 01/18/17 at 10:00; Stop 01/18/17 at 10:20; Status DC Sodium Biphosphate/ Sodium Phosphate (Fleets Enema (Adult)) 133 ml ONCE ONCE MD ; Start 01/18/17 at 10:00; Stop 01/18/17 at 10:20; Status DC Potassium Bicarb/ Potassium Chloride (K-Lyte Cl Eff) 25 meq ONCE ONCE PO Last administered on 01/18/17 11:01; Start 01/18/17 at 10:00; Stop 01/18/17 at 10:20; Status DC Lidocaine HCl (Xylocaine-Mpf 1% Inj) 50 ml STK-MED ONCE OTHER ; Start 01/11/17 at 12:00; Stop 01/18/17 at 10:58; Status DC Rocuronium [place] (Zemuron Inj) 50 mg STK-MED ONCE IV PUSH ; Start 01/11/17 at 12:00; Stop 01/18/17 at 10:58; Status DC Neostigmine Methylsulfate (Prostigmin Inj) 3 mg STK-MED ONCE IV ; Start at 12:00; Stop 01/18/17 at 10:58; Status DC Glycopyrrolate (Robinul Inj) 1 mg STK-MED ONCE IV PUSH ; Start 01/11/17 at 12:00 ; Stop 01/18/17 at 10:58; Status DC Phenylephrine HCl (Neosynephrine/ NS 1000 Mcg/10ml Syr) 1,000 mcg STK-MED ONCE IV ; Start 01/11/17 at 12:00; Stop 01/18/17 at 10:58; Status DC Ondansetron HCl (Zofran Inj) 4 mg STK-MED ONCE IV PUSH ; Start 01/11/17 at 12:00 ; Stop 01/18/17 at 10:58; Status DC Fentanyl Citrate (fentaNYL INJ) 200 mcg STK-MED ONCE IV ; Start 01/11/17 at 12: 00; Stop 01/18/17 at 10:58; Status DC Morphine Sulfate (Morphine Inj) 4 mg STK-MED ONCE IV ; Start 01/11/17 at 12:00; Stop 01/18/17 at 10:58; Status DC Propofol (Diprivan 200 Mg/20 ml Inj) 200 mg STK-MED ONCE IV ; Start 01/11/17 at 12:00; Stop 01/18/17 at 10:58; Status DC Parenteral Electrolytes 1,000 ml @ As Directed STK-MED ONCE IV ; Start at 12:00; Stop 01/18/17 at 10:58; Status DC Lactated Ringer's 1,000 ml @ As Directed STK-MED ONCE IV ; Start 01/11/17 at 12 :00; Stop 01/18/17 at 10:58; Status DC Methylprednisolone Sodium Succinate (SoluMEDROL INJ) 40 mg BID IV PUSH ; Start 01/18/17 at 21:00 A/P Problem List: (1) Pleural effusion on left ICD Code: J90 - Pleural effusion, not elsewhere classified Status: Acute (2) Respiratory distress ICD Code: R06.00 - Dyspnea, unspecified Status: Resolved (3) Hyponatremia ICD Code: E87.1 - Hypo-osmolality and hyponatremia Status: Acute (4) COPD (chronic obstructive pulmonary disease) ICD Code: J44.9 - Chronic obstructive pulmonary disease, unspecified Status: Chronic (5) Tobacco abuse ICD Code: Z72.0 - Tobacco use Status: Chronic Assessment and Plan ASSESSMENT Acute hypoxemic respiratory failure Complete left lung atelectasis Left-sided consolidation with pleural effusion Left thoracotomy with decortication, evacuation of complex loculated effusion, adhesiolysis Pulmonary hypertension COPD exacerbation Hyponatremia/hypophosphatemia Hypokalemia. Urinary tract infection on abx PLAN: Neuro: Hold propofol and reduce fentanyl to facilitate weaning trials Pain control with fentanyl--off all sedation at this time ORAL PAIN CONTROL Pulm: Acute hypoxemic respiratory failure Complete L lung atelectasis S/p decortication for L hemothorax COPD Tobacco abuse ?L lung mass vs loculated effusion/ Emergently intubated and placed on mechanical ventilation 01/15 s/p Bronchoscopy by Dr. Chung. Left lung valera reexpanded, persistent volume loss involving left lower lung field Start weaning trials with possible extubation--extubated January 16 Status post left thoracotomy and decortication 01/11/17-postop diagnosis was hemothorax Bronchodilators, Solumedrol 60 mg IV q8 hours s/p CT guided left-sided thoracentesis and CT placement by IR 12/29/16 CT chest: Either highly complex fluid or soft tissue mass involving the left lung base with mass effect. This measures 12.2 x 12.6 x 7.4 cm. 4.4 cm ascending aortic aneurysm. --Status post bronchoscopy with left sided bronchial alveolar lavage by pulmonary on January 16 CHEST TUBE REMOVED CV: Pulmonary hypertension, most likely secondary from chronic hypoxia by echo Moderate aortic stenosis mild to moderate aortic regurgitation Monitor HR and BP and maintain MAP>65mmHg Echo 12/30 - systolic function grossly normal. Moderate /AI. Moderate to severe pulmonary hypertension.. GI: Nothing by mouth-has been extubated Diet as tolerated : Hyponatremia ?chronic but chronicity not truly known Hypokalemia, resolved- STILL LOW WILL REPLACE ID: UTI Possible pneumonia Continue Rocephin for now UTI present on admission with culture positive for pansensitive Klebsiella. Influenza screen, blood and pleural fluid cultures negative to date. Temporal fluid studies from January 11, on cultures negative to date Endo: SSI with Accu-Cheks for glycemic control. Heme: Macrocytic anemia Anemia of chronic disease and iron deficiency Monitor CBC. Normal B12, Supplement iron due to her lab findings consistent with iron deficiency Being transfused 1 unit packed red blood cells today DVT prophylaxis with SCDs. Lovenox 40 mg sq daily. IV Famotidine 20 mg IV q12h NOT BEING TRANSFUSED TODAY Needs physical therapy and occupational therapy aggressively NEEDS TO GET MOBILE AM LABS Discharge Planning Needs to be more mobile May require [facility] IF ABLE TO GET APPROVAL Problem Qualifiers (1) COPD (chronic obstructive pulmonary disease): Qualified Codes: J43.1 - Panlobular emphysema Raf Soria DO Jan 18, 2017 14:45
[2017-01-18 17:34] LABS: HEMOGLOBIN A1b 0.7 %; HEMOGLOBIN Ao 85.9 %; HEMOGLOBIN F 1.1 %; HEMOGLOBIN LA1C 2.1 %; HEMOGLOBIN P3 3.5 %
[2017-01-18] MEDS: BETHANECHOL CHL 25 MG TAB PO SCH (20:00)
[2017-01-18] MEDS: SODIUM CHLOR 0.9% 1000 ML INJ 1,000 ML IV SCH (21:00)
[2017-01-18] MEDS: PANTOPRAZOLE SOD 40 MG DELAYED RELEASE TAB PO SCH (22:06)
[2017-01-18] MEDS: methylPREDNISolone SOD SUCC 40 MG/1 ML VIAL IV PUSH SCH (22:07)
[2017-01-19] VITALS (30 sets, daily range): BP systolic 110–162; BP diastolic 65–87; PULSE 82–109; RESP 16–20; TEMP 97.6–98.2; O2SAT 94–100
[2017-01-19] MEDS: cefTRIAXone INJ 1,000 MG in SODIUM CHLORIDE 0.9% INJ 100 ML IV SCH (00:26)
[2017-01-19] MEDS: oxyCODONE/ACETAMINOPHEN 7.5 MG/325 MG TAB PO PRN ×4 (01:05→22:59)
[2017-01-19] MEDS: BETHANECHOL CHL 25 MG TAB PO SCH ×3 (04:00→21:56)
--- NOTE | 2017-01-19 05:05 | RADRPT ---
EXAM DATE/TIME: 01/19/2017 03:46 [facility] COMPARISON: CHEST SINGLE AP, January 17, 2017, 9:04. CHEST SINGLE AP, January 16, 2017, 4:58. CHEST SINGLE AP , January 18, 2017, 11:08. INDICATIONS : Post chest tube removal. MEDICAL HISTORY : Chronic obstructive pulmonary disease. SURGICAL HISTORY : Thoracotomy. ENCOUNTER: Subsequent ACUITY: 1 week PAIN SCORE: 6/10 LOCATION: Bilateral chest FINDINGS: A single view of the chest demonstrates some residual air in the left lower costophrenic angle. The a pical pleural fluid is stable. Right lung is relatively clear. Mild diffuse interstitial prominence. Right IJ Vas-Cath in good position. The heart remains enlarged. Osseous structures are intact. CONCLUSION: Stable examination. Residual pleural effusion on the left and residual pleural air similar to the pre vious study. Jamie Camacho MD on January 19, 2017 at 5:02 Board Certified Radiologist. This report was verified electronically.
[2017-01-19] MEDS: POTASSIUM PHOSPHATE/SODIUM PHOSPHATE 250 MG TAB PO SCH ×3 (05:28→21:57)
[2017-01-19] MEDS: RESP: ALBUTEROL 2.5 MG/3 ML NEB (PRN) NEB ×4 (05:35→21:23)
[2017-01-19 05:59] LABS: AUTOMATED NEUTROPHIL # 3.6 TH/MM3 (1.8-7.7); BASOPHIL % 0.1 % (0.0-2.0); HEMATOCRIT 29.3 % (35.0-46.0); LYMPH % 9.4 % (9.0-44.0); LYMPHOCYTE # 0.4 TH/MM3 (1.0-4.8); MEAN CORPUSCULAR HEMOGLOBIN 34.9 PG (27.0-34.0); MEAN CORPUSCULAR HGB CONC 34.6 % (32.0-36.0); MONO % 7.6 % (0.0-8.0); NEUT % 82.9 % (16.0-70.0); PLATELET COUNT 67 TH/MM3 (150-450); RED CELL DISTRIBUTION WIDTH 21.2 % (11.6-17.2); WHITE BLOOD COUNT 4.3 TH/MM3 (4.0-11.0)
[2017-01-19 06:26] LABS: HEMO FLAGS AUTO DIFF
[2017-01-19 06:29] LABS: ALT (GPT) 41 U/L (10-53); ANION GAP 7 MEQ/L (5-15); AST (GOT) 38 U/L (15-37); BICARBONATE 30.9 MEQ/L (21.0-32.0); BLOOD UREA NITROGEN 10 MG/DL (7-18); CHLORIDE 102 MEQ/L (98-107); GLOMERULAR FILTRATION RATE 122 ML/MIN (>89); POTASSIUM 3.9 MEQ/L (3.5-5.1); SODIUM (NA) 140 MEQ/L (136-145)
[2017-01-19 06:32] LABS: ALKALINE PHOSPHATASE 174 U/L (45-117); TOTAL BILIRUBIN ADULT 0.7 MG/DL (0.2-1.0)
[2017-01-19] MEDS: CHLORHEXIDINE 0.12% (ORAL KIT) 15 ML CUP MT SCH ×2 (08:00→20:00)
[2017-01-19 08:07] LABS: PLATELET ESTIMATE SMEAR LOW (NORMAL); PLATELET MORPHOLOGY NORMAL (NORMAL); SCAN/DIFF AUTO DIFF CONFIRMED
[2017-01-19] MEDS: LACTULOSE SYRUP 20 GM/30 ML CUP NG SCH (09:00)
[2017-01-19] MEDS: FERROUS SULFATE 325 MG (65 MG ELEMENTAL IRON) TAB PO SCH ×2 (09:28→21:56)
[2017-01-19] MEDS: FUROSEMIDE 40 MG/4 ML VIAL IV PUSH SCH (09:28)
[2017-01-19] MEDS: POLYETHYLENE GLYCOL 17 GM PKG PO SCH (09:29)
[2017-01-19] MEDS: DOCUSATE SODIUM 100 MG CAP PO SCH ×2 (09:29→21:57)
[2017-01-19] MEDS: methylPREDNISolone SOD SUCC 40 MG/1 ML VIAL IV PUSH SCH (09:29)
[2017-01-19] MEDS: POTASSIUM CHLORIDE 10 MEQ CONTROLLED RELEASE TAB PO SCH (09:29)
[2017-01-19] MEDS: SODIUM CHLORIDE 0.9% FLUSH 5 ML FLUSH IV FLUSH SCH ×2 (09:29→21:00)
--- NOTE | 2017-01-19 10:12 | HHI.PR ---
Subjective Remarks The patient is a 56-year-old female with past medical history of COPD, who presented to [facility] ED with complaints of coughing, wheezing. The patient states that she had food poisoning last week where she had nausea and diarrhea, after she ate suspicious food. She denies any worsening of dyspnea from baseline. In addition, she denies any constitutional symptoms. She quit smoking five and a half years ago and used to smoke one to two packs per day for about 30 years. Chest x-ray in the ER showed consolidation with large effusion and volume loss on the left. On further history she denies any hemoptysis, however, she reports 20 pounds weight loss in the last 4 months and decreased p.o. intake. She is being followed up by Dr. Chung her outpatient debt counselor. The patient denies any use of oxygen at home, however, she is on bronchodilators p.r.n. Her laboratory data is significant for hyponatremia with sodium level 125, lactic acid level 2.1. On arrival to the ER she was tachycardic and tachypneic. When seen the patient is on 4 liters nasal cannula with saturation ranges between 95-100%. In the ER she was given Rocephin, azithromycin, Solu-Medrol, bronchodilator treatment and IV fluids. Her current blood pressure is 107/61. 12/30 Patient s/p CT guided thoracentesis and CT placement by IR yesterday. She is feeling better. Subjective: 12/31 She complains of pain and requests increased pain meds. Repeat imaging ordered per pulmonology to evaluate mass vs loculated effusion. On NC. [facility] RECONSULT NOTE 01/15/17 Critical care consulted for severe hypoxemic respiratory failure. On 01/11/17 patient had left thoracotomy for decortication, evacuation of complex loculated effusion, adhesiolysis by Dr. Gamboa. CXR 01/14/17 showed near complete whiteout of the left lung-pulmonary Dr. Ridley is following. Today a HALICAT was called as the patient was found profoundly hypoxemic in the 70s oxygen saturation. She was placed on 100% percent nonrebreather with improvement in saturation only to 81%. Stat ABG on 100% nonrebreather showed pH of 7.29 PCO2 of 62 pO2 of 53 and oxygen saturation 79%. Stat chest x-ray showed complete whiteout of the left lung. I discussed with the patient briefly, she is agreeable for intubation. I proceeded with endotracheal intubation and placed on mechanical ventilation -patient saturation gradually improved to 100%. Discussed with pulmonology Dr. Ridley. He plans to do bronchoscopy today afternoon. SUBJ 01/16: Patient had bronchoscopy by Dr. Ridley yesterday. Chest x-ray today shows improvement in aeration but still with volume loss left lower lung valera which is unchanged from the post thoracotomy chest x-rays. Wide-awake on vent tolerating CPAP will proceed with weaning trials 01-17 TRANSFERRED BACK TO OUR SERVICE EXTUBATED YESTERDAY GETTING BLOOD 1 UNIT PRBC TODAY PT AND OT DW RN AND PT LESS SOB THAN YESTERDAY 01-18 REFUSING BONE MARROW BIOPSY NO BLOOD TRANSFUSION TODAY NEED PT AND OT BECOMING MOBILE HAD CHEST TUBES OUT AM LABS HAD BM DW RN AND PT 01-19 still having urinary retention WILL NEED WILLARD CATHETER SINCE NOT URINATING ON HER OWN IF NOT URINATING AFTER LASIX DW RN AND PT LOTS OF DRAINAGE FROM LEFT CHEST WOUND AREA NO SOB HAD GOOD BM TODAY DW RN AND PT Objective Vitals Vital Signs Date Time Temp Pulse Resp B/P (MAP) Pulse Ox O2 Delivery O2 Flow Rate FiO2 01/19/17 09:17 Room Air 01/19/17 09:13 97.9 98 18 143/84 (103) 94 01/19/17 06:00 82 01/19/17 05:37 95 01/19/17 05:00 94 01/19/17 04:00 95 Room Air 01/19/17 03:00 90 01/19/17 02:00 92 01/19/17 01:00 104 01/19/17 00:00 98.0 106 18 147/87 (107) 95 01/19/17 00:00 94 01/19/17 00:00 97 Room Air 01/18/17 23:00 92 01/18/17 22:00 84 01/18/17 21:00 90 01/18/17 20:00 97 Room Air 01/18/17 20:00 98.3 93 18 128/74 (92) 95 01/18/17 20:00 108 01/18/17 18:41 19 01/18/17 18:03 97 01/18/17 17:00 93 01/18/17 15:00 79 01/18/17 15:00 98.2 90 19 128/74 (92) 96 01/18/17 15:00 96 Room Air 01/18/17 14:00 89 01/18/17 13:00 103 01/18/17 12:15 96 21 01/18/17 12:00 96 01/18/17 11:00 100 Nasal Cannula 2.00 01/18/17 11:00 99 01/18/17 11:00 97.5 99 22 111/65 (80) 100 01/18/17 10:00 110 I/O 01/18/17 01/18/17 01/18/17 01/19/17 01/19/17 01/19/17 07:00 15:00 23:00 07:00 15:00 23:00 Intake Total 300 ml 500 ml 960 ml Output Total 60 ml 800 ml 200 ml 1650 ml Balance 240 ml -800 ml 300 ml -690 ml Intake Oral 300 ml 500 ml 960 ml Output Urine Total 0 ml 800 ml 200 ml 1650 ml Chest Tube Drainage Total 60 ml Bladder Scan Volume Amount 200 ml 375 ml 669 ml 200 ml 669 ml 730 ml 669 ml 730 ml # Bowel Movements 0 1 Result Diagram: 01/19/17 0520 01/19/17 0520 Other Results Laboratory Tests Test 01/17/17 04:18 01/18/17 04:37 01/18/17 14:00 01/19/17 05:20 White Blood Count 3.3 TH/MM3 3.4 TH/MM3 4.3 TH/MM3 Red Blood Count 1.99 MIL/MM3 2.64 MIL/MM3 2.90 MIL/MM3 Hemoglobin 7.0 GM/DL 8.9 GM/DL 10.1 GM/DL Hematocrit 20.5 % 26.5 % 29.3 % Mean Corpuscular Volume 103.4 FL 100.6 FL 101.0 FL Mean Corpuscular Hemoglobin 35.1 PG 33.9 PG 34.9 PG Mean Corpuscular Hemoglobin Concent 33.9 % 33.7 % 34.6 % Red Cell Distribution Width 21.8 % 20.9 % 21.2 % Platelet Count 45 TH/MM3 48 TH/MM3 67 TH/MM3 Mean Platelet Volume 9.4 FL 9.5 FL 9.7 FL Neutrophils (%) (Auto) 84.6 % 86.6 % 82.9 % Lymphocytes (%) (Auto) 10.5 % 8.0 % 9.4 % Monocytes (%) (Auto) 4.9 % 5.3 % 7.6 % Eosinophils (%) (Auto) 0.0 % 0.0 % 0.0 % Basophils (%) (Auto) 0.0 % 0.1 % 0.1 % Neutrophils # (Auto) 2.8 TH/MM3 2.9 TH/MM3 3.6 TH/MM3 Lymphocytes # (Auto) 0.3 TH/MM3 0.3 TH/MM3 0.4 TH/MM3 Monocytes # (Auto) 0.2 TH/MM3 0.2 TH/MM3 0.3 TH/MM3 Eosinophils # (Auto) 0.0 TH/MM3 0.0 TH/MM3 0.0 TH/MM3 Basophils # (Auto) 0.0 TH/MM3 0.0 TH/MM3 0.0 TH/MM3 CBC Comment AUTO DIFF AUTO DIFF AUTO DIFF Differential Comment AUTO DIFF CONFIRMED AUTO DIFF CONFIRMED AUTO DIFF CONFIRMED Platelet Estimate LOW LOW LOW Platelet Morphology Comment NORMAL NORMAL NORMAL Target Cells Blood Urea Nitrogen 9 MG/DL 8 MG/DL 10 MG/DL Creatinine 0.41 MG/DL 0.35 MG/DL 0.52 MG/DL Random Glucose 131 MG/DL 138 MG/DL 121 MG/DL Total Protein 4.2 GM/DL 4.9 GM/DL 5.2 GM/DL Albumin 1.8 GM/DL 2.4 GM/DL 2.6 GM/DL Calcium Level 7.7 MG/DL 8.1 MG/DL 8.1 MG/DL Phosphorus Level 1.9 MG/DL 1.8 MG/DL 2.2 MG/DL Magnesium Level 2.1 MG/DL 2.1 MG/DL 2.0 MG/DL Alkaline Phosphatase 123 U/L 162 U/L 174 U/L Aspartate Amino Transf (AST/SGOT) 19 U/L 24 U/L 38 U/L Alanine Aminotransferase (ALT/SGPT) 19 U/L 29 U/L 41 U/L Total Bilirubin 0.4 MG/DL 0.8 MG/DL 0.7 MG/DL Sodium Level 136 MEQ/L 139 MEQ/L 140 MEQ/L Potassium Level 3.6 MEQ/L 3.1 MEQ/L 3.9 MEQ/L 3.9 MEQ/L Chloride Level 102 MEQ/L 102 MEQ/L 102 MEQ/L Carbon Dioxide Level 28.1 MEQ/L 29.5 MEQ/L 30.9 MEQ/L Anion Gap 6 MEQ/L 8 MEQ/L 7 MEQ/L Estimat Glomerular Filtration Rate 160 ML/MIN 193 ML/MIN 122 ML/MIN Lactic Acid Level 0.7 mmol/L Random Cortisol 11.9 MCG/DL Hemoglobin A1c 4.9 % Free Thyroxine 0.98 NG/DL Thyroid Stimulating Hormone 3rd Gen 1.590 uIU/ML Imaging Last Impressions Chest X-Ray 01/19/17 0600 Signed Impressions: Service Date/Time: January 03:46 - CONCLUSION: Stable examination. Residual pleural effusion on the left and residual pleural air similar to the previous study. Jamie Camacho MD Abdomen X-Ray 01/15/17 1820 Signed Impressions: Service Date/Time: Sunday, January 15, 2017 18:30 - CONCLUSION: 1. No obvious obstruction or pneumoperitoneum on this limited view of the abdomen. 2. Nasogastric tube with the tip projecting over the proximal gastric body. 3. Volume loss in the left hemithorax with stable position of 2 thoracostomy tubes and left basilar consolidation. . Yogesh Isbell MD Chest CT 12/31/16 0000 Signed Impressions: Service Date/Time: Saturday, December 31, 2016 14:44 - CONCLUSION: 1. Interval placement of left-sided chest tube with slight decrease in the complex low-density fluid collection in the lower left hemithorax. 2. Volume loss remains in the left hemithorax with consolidation in the left infrahilar region 3. New small right pleural effusion and consolidation in the right posterior lower lobe 4. The previously noted fluid and debris in the left mainstem bronchus is no longer present. Kashif Garcia MD Chest Ultrasound 12/30/16 0000 Signed Impressions: Service Date/Time: Friday, December 30, 2016 09:59 - CONCLUSION: No focal collections of anechoic free fluid. Prominent amount of heterogeneous echotexture material surrounding the left lower chest. Art Willard MD Chest Tube Insertion 12/29/16 1224 Signed Impressions: Service Date/Time: December 13:22 - CONCLUSION: Uncomplicated CT-guided thoracentesis. David Mora MD Objective Remarks GENERAL: Awake alert oriented 3 --talkative and cooperative SKIN: Warm and dry. No obvious rashes HEAD: Atraumatic. Normocephalic. EYES: Pupils equal and round. No scleral icterus. No injection or drainage. Extraocular muscles intact ENT: No nasal bleeding or discharge. Mucous membranes pink and moist. Tongue is midline NECK: Trachea midline. No JVD. Supple CARDIOVASCULAR: Regular rate and rhythm. S1-S2 no S3 or S4 no heave or thrill or rub RESPIRATORY: No accessory muscle use. Breath sounds equal bilaterally. Coarse breath sounds bilaterally GASTROINTESTINAL: Abdomen soft, non-tender, nondistended. Hepatic and splenic margins not palpable. MUSCULOSKELETAL: Extremities without clubbing, cyanosis, or edema. No obvious deformities. Bilateral lower extremity weakness NEUROLOGICAL: Awake and alert. No obvious cranial nerve deficits. Motor grossly within normal limits. 4 out of 5 muscle strength in the arms and 3 out of 5 muscle strength in the legs. Normal speech. PSYCHIATRIC: Appropriate mood and affect; insight and judgment ABnormal. Procedures CT guided thoracentesis with L chest tube placement 12/29 Left thoracoscopic exploration, left thoracotomy for decortication, evacuation of complex loculated effusion, adhesiolysis 01/11/1701-15 INTUBATED 01-16 EXTUBATED 01-16 BRONCHOSCOPY WITH BAL OF LEFT SIDE Medications and IVs Current Medications Sodium Chloride (NS Flush) 2 ml UNSCH PRN IVF FLUSH AFTER USING IV ACCESS Last administered on 01/08/17 21:04; Start 12/29/16 at 10:15; Stop 01/10/17 at 17: 47; Status DC Methylprednisolone Sodium Succinate (SoluMEDROL INJ) 125 mg ONCE ONCE IV PUSH Last administered on 12/29/16 10:17; Start 12/29/16 at 10:15; Stop 12/29/16 at 10:16; Status DC Albuterol/ Ipratropium (Duoneb Neb) 1 ampule ONCE ONCE INH Last administered on 12/29/16 10:13; Start 12/29/16 at 10:15; Stop 12/29/16 at 10:16; Status DC Albuterol Sulfate (Albuterol Neb) 2.5 mg Q15M INH Last administered on 10:13; Start 12/29/16 at 10:15; Stop 12/29/16 at 10:31; Status DC Sodium Chloride 1,000 ml @ 125 mls/hr Q8H IV Last administered on 12/29/16 10:17; Start 12/29/16 at 10:15; Stop 12/29/16 at 11:35; Status DC Ondansetron HCl (Zofran Inj) 4 mg ONCE ONCE IV PUSH Last administered on 12/29 10:41; Start 12/29/16 at 10:45; Stop 12/29/16 at 10:46; Status DC Ceftriaxone Sodium 1000 mg/ Sodium Chloride 100 ml @ 200 mls/hr ONCE ONCE IV Last administered on 12/29/16 11:54; Start 12/29/16 at 11:15; Stop 12/29/16 at 11:44; Status DC Azithromycin 500 mg/Sodium Chloride 250 ml @ 250 mls/hr ONCE ONCE IV Last administered on 12/29/16 12:31; Start 12/29/16 at 11:15; Stop 12/29/16 at 12 :14; Status DC Pantoprazole Sodium (Protonix Inj) 40 mg DAILY IV PUSH Last administered on 08:54; Start 12/29/16 at 12:00; Stop 12/31/16 at 14:05; Status DC Albuterol/ Ipratropium (Duoneb Neb) 1 ampule Q4HR NEB INH Last administered on 01/02/17 07:58; Start 12/29/16 at 12:00; Stop 01/02/17 at 11:59; Status DC Albuterol/ Ipratropium (Duoneb Neb) 1 ampule Q2HR NEB PRN INH WHEEZING Last administered on 01/04/17 10:14; Start 12/29/16 at 11:30; Stop 01/11/17 at 20: 29; Status DC Miscellaneous Information 1 [id number] Last administered on 12/29/16 21:22; Start 12/29/16 at 11:30; Stop 01/07/17 at 23:35; Status DC Chlorhexidine Gluconate (Chlorhexidine 2% Cloth) Taper DAILY@04 TOP Last administered on 01/01/17 04:00; Start 12/30/16 at 04:00; Stop 01/07/17 at 23: 35; Status DC Chlorhexidine Gluconate (Chlorhexidine 2% Cloth) 3 pack UNSCH PRN TOP HYGIENIC CARE; Start 12/29/16 at 11:30; Stop 01/07/17 at 23:35; Status DC Senna/Docusate Sodium (Elvie-Colace) 1 tab BID PO Last administered on 08:44; Start 12/29/16 at 21:00; Stop 01/11/17 at 20:29; Status DC Magnesium Hydroxide (Milk Of Magnesia Liq) 30 ml Q12H PRN PO Mild constipation Last administered on 01/09/17 20:33; Start 12/29/16 at 11:30; Stop 01/11/17 at 20:29; Status DC Sennosides (Senokot) 17.2 mg Q12H PRN PO Moderate constipation Last administered on 01/17/17 02:19; Start 12/29/16 at 11:30 Bisacodyl (Dulcolax Supp) 10 mg DAILY PRN RECTAL SEVERE CONSITIPATION; Start 12/29/16 at 11:30; Stop 01/17/17 at 14:59; Status DC Lactulose (Lactulose Liq) 30 ml DAILY PRN PO SEVERE CONSITIPATION; Start 12/29 at 11:30; Status Cancel Sodium Chloride 1,000 ml @ 84 mls/hr [id number] IV Last administered on 17:26; Start 12/29/16 at 11:30; Stop 12/30/16 at 08:37; Status DC Potassium Chloride 100 ml @ 50 mls/hr Q2H PRN IV For Potassium 2.8 - 3.2 mEq/L ; Start 12/29/16 at 11:30; Stop 12/31/16 at 14:05; Status DC Potassium Chloride 100 ml @ 50 mls/hr Q2H PRN IV For Potassium 2.8 - 3.2 mEq/L ; Start 12/29/16 at 11:30; Stop 12/31/16 at 14:05; Status DC Potassium Bicarb/ Potassium Chloride (K-Lyte Cl Eff) 50 meq UNSCH PRN PO For Potassium 3.3 - 3.5 mEq/L; Start 12/29/16 at 11:30; Stop 12/31/16 at 14:05; Status DC Potassium Chloride 100 ml @ 25 mls/hr UNSCH PRN IV For Potassium 3.3 - 3.5 mEq /L; Start 12/29/16 at 11:30; Stop 12/31/16 at 14:05; Status DC Potassium Chloride 100 ml @ 50 mls/hr Q2H PRN IV For Potassium 3.3 - 3.5 mEq/L ; Start 12/29/16 at 11:30; Stop 12/31/16 at 14:05; Status DC Magnesium Sulfate 4 gm/Sodium Chloride 100 ml @ 50 mls/hr UNSCH PRN IV For Magnesium 0.9 - 1.1 mg/dL; Start 12/29/16 at 11:30; Stop 12/31/16 at 14:05; Status DC Magnesium Oxide (Mag-Ox) 800 mg UNSCH PRN PO For Magnesium 1.2 - 1.6 mg/dL; Start 12/29/16 at 11:30; Stop 12/31/16 at 14:05; Status DC Magnesium Sulfate 2 gm/Sodium Chloride 100 ml @ 50 mls/hr UNSCH PRN IV For Magnesium 1.2 - 1.6 mg/dL; Start 12/29/16 at 11:30; Stop 12/31/16 at 14:05; Status DC Potassium Phosphate (K-Phos) 2,000 mg Q4H PRN PO For Phosphorus < 2.5 mg/dL; Start 12/29/16 at 11:30; Stop 12/31/16 at 14:05; Status DC Sodium Phosphate 30 mmol/Sodium Chloride 250 ml @ 42 mls/hr UNSCH PRN IV For Phosphorus < 2.5 mg/dL; Start 12/29/16 at 11:30; Stop 12/31/16 at 14:05; Status DC Potassium Phosphate (K-Phos) 2,000 mg UNSCH PRN PO/TUBE SEE LABEL COMMENTS; Start 12/29/16 at 11:30; Stop 12/31/16 at 14:05; Status DC Potassium Phosphate 30 mmol/ Sodium Chloride 260 ml @ 42 mls/hr UNSCH PRN IV SEE LABEL COMMENTS Last administered on 12/30/16t 11:46; Start 12/29/16 at 11: 30; Stop 12/31/16 at 14:05; Status DC Dextrose (D50w (Vial) Inj) 50 ml UNSCH PRN IV PUSH HYPOGLYCEMIA-SEE COMMENTS; Start 12/29/16 at 11:30; Stop 01/07/17 at 23:34; Status DC Glucagon (Glucagon Inj) 1 mg UNSCH PRN OTHER HYPOGLYCEMIA-SEE COMMENTS; Start 12/29/16 at 11:30; Stop 01/07/17 at 23:34; Status DC Insulin Human Regular (NovoLIN R SUPPLEMENTAL SCALE) 1 Q6H SQ Last administered on 01/01/17 17:30; Start 12/29/16 at 11:30; Stop 01/07/17 at 23: 34; Status DC Ceftriaxone Sodium 1000 mg/ Sodium Chloride 100 ml @ 200 mls/hr Q24H IV Last administered on 01/03/17 12:20; Start 12/30/16 at 12:00; Stop 01/04/17 at 11: 59; Status DC Azithromycin 500 mg/Sodium Chloride 250 ml @ 250 mls/hr Q24H IV Last administered on 12/31/16 11:48; Start 12/30/16 at 13:00; Stop 12/31/16 at 15 :20; Status DC Methylprednisolone Sodium Succinate (SoluMEDROL INJ) 60 mg Q6HR IV PUSH Last administered on 12/30/16 12:31; Start 12/29/16 at 16:00; Stop 12/30/16 at 13 :03; Status DC Lidocaine/ Epinephrine (Xylocaine-Epi 1%-1:100,000 Inj) 20 ml STK-MED ONCE .ROUTE Last administered on 12/29/16 12:38; Start 12/29/16 at 12:38; Stop 12/29/16 at 12:39; Status DC Fentanyl Citrate (fentaNYL INJ) 100 mcg STK-MED ONCE .ROUTE Last administered on 12/29/16 12:47; Start 12/29/16 at 12:47; Stop 12/29/16 at 12:48; Status DC Midazolam HCl (Versed Inj) 2 mg STK-MED ONCE .ROUTE Last administered on 12:47; Start 12/29/16 at 12:47; Stop 12/29/16 at 12:48; Status DC Iohexol (Omnipaque 350 Inj) 69 ml STK-MED ONCE IVCONTRAST Last administered on 12/29/16 13:33; Start 12/29/16 at 13:33; Stop 12/29/16 at 13:34; Status DC Ephedrine Sulfate (ePHEDrine/NS 25 MG/5 ML SYR) 25 mg STK-MED ONCE .ROUTE ; Start 12/29/16 at 13:40; Stop 12/29/16 at 13:41; Status DC Acetaminophen (Tylenol) 650 mg Q6H PRN PO PAIN Last administered on 12/30/16 04:13; Start 12/30/16 at 04:15; Stop 01/02/17 at 11:16; Status DC Oxycodone/ Acetaminophen (Percocet 5-325 Mg) 1 tab ONCE ONCE PO Last administered on 12/30/16 09:39; Start 12/30/16 at 09:30; Stop 12/30/16 at 09 :31; Status DC Methylprednisolone Sodium Succinate (SoluMEDROL INJ) 40 mg Q6HR IV PUSH Last administered on 01/01/17 05:12; Start 12/30/16 at 18:00; Stop 01/01/17 at 11 :40; Status DC Morphine Sulfate (Morphine Inj) 1 mg ONCE ONCE IV PUSH Last administered on 15:06; Start 12/30/16 at 15:00; Stop 12/30/16 at 15:01; Status DC Acetaminophen (Tylenol) 650 mg Q6H PRN PO PAIN 1-2; Start 12/30/16 at 22:30 Morphine Sulfate (Morphine Inj) 1 mg Q4H PRN IV PAIN 5-10 Last administered on 12/31/16 11:12; Start 12/30/16 at 22:30; Stop 12/31/16 at 13:46; Status DC Morphine Sulfate (Morphine Inj) 2 mg Q4H PRN IV BREAKTHROUGH PAIN 6-10 Last administered on 01/11/17 13:33; Start 12/31/16 at 14:30; Stop 01/11/17 at 19: 27; Status DC Acetaminophen/ Hydrocodone Bitart ([facility] 5-325 Mg) 1 tab Q6H PRN PO PAIN 3-5 Last administered on 01/02/17 05:18; Start 12/31/16 at 13:45; Stop 01/09/17 at 09:01; Status DC Acetaminophen/ Hydrocodone Bitart ([place] 5-325 Mg) 2 tab Q6H PRN PO PAIN 6-10 Last administered on 01/09/17 08:39; Start 12/31/16 at 13:45; Stop 01/09/17 at 09:01; Status DC Pantoprazole Sodium (Protonix) 40 mg DAILY PO Last administered on 01/11/17 08 :41; Start 01/01/17 at 09:00; Stop 01/11/17 at 20:29; Status DC Iohexol (Omnipaque 350 Inj) 70 ml STK-MED ONCE IVCONTRAST Last administered on 12/31/16 14:59; Start 12/31/16 at 14:59; Stop 12/31/16 at 15:00; Status DC Azithromycin 500 mg/Sodium Chloride 250 ml @ 250 mls/hr Q24H IV Last administered on 01/04/17 11:57; Start 01/02/17 at 13:00; Stop 01/04/17 at 14: 46; Status DC Methylprednisolone Sodium Succinate (SoluMEDROL INJ) 40 mg Q12HR IV PUSH Last administered on 01/03/17 07:37; Start 01/01/17 at 21:00; Stop 01/03/17 at 13 :51; Status DC Methylprednisolone Sodium Succinate (SoluMEDROL INJ) 40 mg DAILY IV PUSH Last administered on 01/05/17 08:15; Start 01/04/17 at 09:00; Stop 01/05/17 at 18:19 ; Status DC Nifedipine (Procardia Xl) 60 mg ONCE ONCE PO Last administered on 01/05/17 17 :49; Start 01/05/17 at 17:30; Stop 01/05/17 at 17:32; Status DC Nifedipine (Procardia Xl) 30 mg DAILY PO Last administered on 01/17/17 08:32 ; Start 01/06/17 at 09:00; Status Future Hold Furosemide (Lasix) 20 mg DAILY PO Last administered on 01/15/17 09:21; Start 01/05/17 at 17:35; Status Future Hold Prednisone (Deltasone) 10 mg DAILY PO Last administered on 01/15/17 09:21; Start 01/08/17 at 09:00; Stop 01/17/17 at 14:59; Status DC Acetaminophen/ Hydrocodone Bitart ([facility] 5-325 Mg) 1 tab Q4H PRN PO PAIN 3-5; Start 01/09/17 at 09:00; Stop 01/11/17 at 19:27; Status DC Acetaminophen/ Hydrocodone Bitart ([facility] 5-325 Mg) 2 tab Q4H PRN PO PAIN 6-10 Last administered on 01/11/17 08:47; Start 01/09/17 at 09:15; Stop 01/11/17 at 19:27; Status DC Lactulose (Lactulose Liq) 30 ml ONCE ONCE PO ; Start 01/10/17 at 13:00; Stop 01/10/17 at 13:19; Status DC Lactulose (Lactulose Liq) 30 ml QID PRN PO severe constipation Last administered on 01/11/17 08:42; Start 01/10/17 at 13:00 Simethicone (Phazyme Chew) 125 mg ONCE ONCE PO Last administered on 01/10/17 14:59; Start 01/10/17 at 13:30; Stop 01/10/17 at 13:31; Status DC Sodium Chloride (NS Flush) 2 ml BID IV FLUSH Last administered on 01/11/17 09: 00; Start 01/10/17 at 21:00; Stop 01/11/17 at 20:29; Status DC Sodium Chloride (NS Flush) 2 ml UNSCH PRN IV FLUSH FLUSH AFTER USING IV ACCESS ; Start 01/10/17 at 16:15; Stop 01/11/17 at 20:29; Status DC Cefazolin Sodium 500 mg/Sodium Chloride 505 ml @ 0 mls/hr METAL MILLING MACHINE OPERATOR IRRIGATION ; Start 01/10/17 at 16:15; Stop 01/17/17 at 14:59; Status DC Cefazolin Sodium/ Dextrose 50 ml @ 150 mls/hr METAL MILLING MACHINE OPERATOR IV Last administered on 01/11/17 16:17; Start 01/10/17 at 16:15; Stop 01/17/17 at 14:59; Status DC Chlorhexidine Gluconate (Hibiclens 4% Top Soln) 1 applic METAL MILLING MACHINE OPERATOR TOPICAL Last administered on 01/11/17 08:42; Start 01/10/17 at 16:15; Stop 01/12/17 at 08:40 ; Status DC Dextrose (D50w (Vial) Inj) 50 ml UNSCH PRN IV PUSH HYPOGLYCEMIA-SEE COMMENTS; Start 01/10/17 at 16:15 Lactated Ringer's 1,000 ml @ 30 mls/hr Q24H PRN IV SEE LABEL COMMENTS Last administered on 01/11/17 14:53; Start 01/10/17 at 18:30; Stop 01/11/17 at 20:23 ; Status DC Sodium Chloride 500 ml @ 30 mls/hr [id number] PRN IV SEE LABEL COMMENTS; Start at 18:30; Stop 01/11/17 at 20:23; Status DC Metoprolol Tartrate (Lopressor) 25 mg METAL MILLING MACHINE OPERATOR PRN PO SEE LABEL COMMENTS; Start 01/10/17 at 18:30; Stop 01/11/17 at 20:23; Status DC Povidone Iodine (Betadine 5% Antisepsis Kit) 1 applic METAL MILLING MACHINE OPERATOR PRN EACH NARE SEE LABEL COMMENTS; Start 01/10/17 at 18:30; Stop 01/11/17 at 20:23; Status DC Chlorhexidine Gluconate (Chlorhexidine 2% Cloth) 3 pack METAL MILLING MACHINE OPERATOR PRN TOPICAL SEE LABEL COMMENTS; Start 01/10/17 at 18:30; Stop 01/12/17 at 08:40; Status DC Insulin Human Regular (NovoLIN R INJ) See Protocol Table ... METAL MILLING MACHINE OPERATOR PRN SQ SEE PROTOCOL TABLE; Start 01/10/17 at 18:30; Stop 01/11/17 at 20:23; Status DC Albuterol/ Ipratropium (Duoneb Neb) 1 ampule Q6HR NEB NEB Last administered on 01/11/17 09:40; Start 01/10/17 at 22:00; Stop 01/11/17 at 20:29; Status DC Bupivacaine HCl (Marcaine Pf 0.5% Inj) 30 ml ONCE ONCE INFIL Last administered on 01/11/17 17:51; Start 01/11/17 at 17:51; Stop 01/11/17 at 17:53 ; Status DC Albuterol Sulfate (Albuterol Neb) 2.5 mg Q6HR NEB NEB Last administered on 07:08; Start 01/11/17 at 22:00; Stop 01/13/17 at 12:20; Status DC Albuterol Sulfate (Albuterol Neb) 2.5 mg Q2HR NEB PRN NEB WHEEZING Last administered on 01/19/17 05:35; Start 01/11/17 at 19:30 IV Flush (NS Flush) 2 ml BID IV FLUSH Last administered on 01/19/17 09:29; Start 01/11/17 at 21:00 IV Flush (NS Flush) 2 ml UNSCH PRN IV FLUSH FLUSH AFTER USING IV ACCESS; Start 01/11/17 at 19:30 Miscellaneous Information (Post-op Orders (for Pharmacy)) STAT ONCE OTHER ; Start 01/11/17 at 19:30; Stop 01/11/17 at 20:27; Status DC Pantoprazole Sodium (Protonix) 40 mg HS PO Last administered on 01/18/17 22: 06; Start 01/11/17 at 21:00 Ondansetron HCl (Zofran Inj) 4 mg Q6H PRN IV PUSH NAUSEA OR VOMITING Last administered on 01/15/17 05:58; Start 01/11/17 at 19:30 Docusate Calcium (Surfak) 240 mg HS PO Last administered on 01/11/17 23:35; Start 01/11/17 at 21:00; Stop 01/12/17 at 08:40; Status DC Magnesium Hydroxide (Milk Of Magnesia Liq) 30 ml DAILY PRN PO MILD CONSTIPATION ; Start 01/11/17 at 19:30 Acetaminophen 100 ml @ 400 mls/hr Q6H IV Last administered on 01/12/17 19:24 ; Start 01/11/17 at 21:00; Stop 01/12/17 at 15:14; Status DC Naloxone HCl (Narcan Inj) 0.4 mg UNSCH PRN IV PUSH RESPIRATORY RATE LESS THAN 10; Start 01/11/17 at 19:30; Stop 01/16/17 at 18:00; Status DC Morphine Sulfate (Morphine 1 Mg/ ml DISSOLVER OPERATOR) 30 mg UNSCH IV Last administered on 09:29; Start 01/11/17 at 19:30; Stop 01/16/17 at 18:00; Status DC DISSOLVER OPERATOR Dosage Infused (Pha) 1 Q8HR .XX Last administered on 01/15/17 06:00; Start 01/11/17 at 22:00; Stop 01/16/17 at 18:00; Status DC Morphine Sulfate (*morphine INJ PERIprocedure ONLY) 8 mg STK-MED ONCE .ROUTE Last administered on 01/11/17 20:10; Start 01/11/17 at 20:08; Stop 01/12/17 at 08:40; Status DC Morphine Sulfate (*morphine INJ PERIprocedure ONLY) 8 mg STK-MED ONCE .ROUTE Last administered on 01/11/17 20:30; Start 01/11/17 at 20:22; Stop 01/12/17 at 08:40; Status DC Meperidine HCl (*DEMEROL INJ PERIprocedural ONLY) 25 mg STK-MED ONCE .ROUTE Last administered on 01/11/17 20:23; Start 01/11/17 at 20:22; Stop 01/12/17 at 08:40; Status DC Morphine Sulfate (Morphine 1 Mg/ ml DISSOLVER OPERATOR) 30 mg STK-MED ONCE .ROUTE ; Start 01/11 at 20:25; Stop 01/11/17 at 20:26; Status DC Sodium Chloride 1,000 ml @ 30 mls/hr Q24H IV Last administered on 01/14/17 21:00; Start 01/11/17 at 21:00 Miscellaneous Information ALL NURSING DEPARTME... UNSCH PRN .XX SEE LABEL COMMENTS; Start 01/11/17 at 19:55; Stop 01/12/17 at 19:54; Status DC Polyethylene Glycol (Miralax) 17 gm DAILY PO Last administered on 01/19/17 09 :29; Start 01/12/17 at 09:00 Potassium Chloride (KCl) 30 meq ONCE ONCE PO Last administered on 01/12/17 10 :07; Start 01/12/17 at 08:45; Stop 01/12/17 at 08:46; Status DC Potassium Chloride (KCl) 10 meq DAILY PO Last administered on 01/18/17 09:00 ; Start 01/12/17 at 09:00; Stop 01/19/17 at 08:51; Status DC Cefazolin Sodium 1000 mg/Sodium Chloride 100 ml @ 200 mls/hr Q8H IV ; Start at 15:45; Stop 01/12/17 at 15:45; Status DC Cefazolin Sodium 1000 mg/Sodium Chloride 100 ml @ 200 mls/hr Q8H IV Last administered on 01/13/17 08:04; Start 01/12/17 at 16:00; Stop 01/13/17 at 08: 19; Status DC Ceftriaxone Sodium 1000 mg/ Sodium Chloride 100 ml @ 200 mls/hr Q24H IV Last administered on 01/19/17 00:26; Start 01/12/17 at 23:00 Furosemide (Lasix Inj) 20 mg ONCE ONCE IV PUSH Last administered on 13:08; Start 01/13/17 at 14:00; Stop 01/13/17 at 14:01; Status DC Potassium Chloride (KCl) 20 meq ONCE ONCE PO Last administered on 01/13/17 13:07; Start 01/13/17 at 14:00; Stop 01/13/17 at 14:01; Status DC Albuterol Sulfate (Albuterol Neb) 2.5 mg Q6HR WHILE AWAKE NEB INH Last administered on 01/15/17 09:42; Start 01/13/17 at 14:00; Stop 01/15/17 at 10 :45; Status DC Furosemide (Lasix Inj) 20 mg ONCE ONCE IV PUSH Last administered on 18:49; Start 01/13/17 at 17:00; Stop 01/13/17 at 17:01; Status DC Potassium Chloride 100 ml @ 50 mls/hr Q2H IV Last administered on 01/14/17 11:26; Start 01/14/17 at 08:00; Stop 01/14/17 at 11:59; Status DC Etomidate (Amidate Inj) 40 mg STK-MED ONCE .ROUTE Last administered on 10:58; Start 01/15/17 at 10:08; Stop 01/15/17 at 10:09; Status DC Midazolam HCl (Versed Inj) 5 mg STK-MED ONCE .ROUTE Last administered on 10:57; Start 01/15/17 at 10:09; Stop 01/15/17 at 10:10; Status DC Albuterol Sulfate (Albuterol Neb) 2.5 mg Q4HR NEB PRN NEB DYSPNEA; Start 01/15 at 10:30 Propofol 50 ml @ As Directed STK-MED ONCE .ROUTE Last administered on 10:59; Start 01/15/17 at 10:18; Stop 01/15/17 at 10:19; Status DC Chlorhexidine Gluconate (Peridex 0.12% Liq) 15 ml BID@08,20 MT Last administered on 01/15/17 21:32; Start 01/15/17 at 20:00 Propofol 100 ml @ 2.034 mls/ hr TITRATE PRN IV SEDATION Last administered on 01/16/17 05:49; Start 01/15/17 at 10:30; Stop 01/16/17 at 18:00; Status DC Fentanyl Citrate 250 ml @ 5 mls/hr TITRATE PRN IV SEDATION Last administered on 01/15/17 18:25; Start 01/15/17 at 10:30; Stop 01/16/17 at 18:00; Status DC Albuterol/ Ipratropium (Duoneb Neb) 1 ampule Q4HR NEB NEB Last administered on 01/18/17 07:22; Start 01/15/17 at 12:00; Stop 01/18/17 at 10:28; Status DC Methylprednisolone Sodium Succinate (SoluMEDROL INJ) 60 mg Q12H IV PUSH ; Start 01/15/17 at 12:00; Stop 01/15/17 at 12:00; Status DC Methylprednisolone Sodium Succinate (SoluMEDROL INJ) 60 mg Q8H IV PUSH Last administered on 01/18/17 11:01; Start 01/15/17 at 12:00; Stop 01/18/17 at 12 :11; Status DC Enoxaparin Sodium (Lovenox Inj) 40 mg Q24H SQ Last administered on 01/15/17 12:54; Start 01/15/17 at 12:00; Status Future Hold Ferrous Sulfate (Ferrous Sulfate Liq) 300 mg BID PO Last administered on 09:05; Start 01/15/17 at 14:30; Stop 01/16/17 at 17:41; Status DC Acetylcysteine (Mucomyst 20% Neb) 2 ml Q6HR NEB NEB ; Start 01/15/17 at 16:00 ; Stop 01/15/17 at 17:41; Status DC Non-Formulary Medication 2 ML NEB EVERY 6 HOURS Q6HR NEB NEB Last administered on 01/17/17 04:25; Start 01/15/17 at 18:00; Stop 01/18/17 at 10 :41; Status DC Potassium Bicarb/ Potassium Chloride (K-Lyte Cl Eff) 25 meq ONCE ONCE PO Last administered on 01/16/17 07:26; Start 01/16/17 at 06:45; Stop 01/16/17 at 06:51; Status DC Lactulose (Lactulose Liq) 30 ml DAILY NG Last administered on 01/18/17 09:00 ; Start 01/16/17 at 09:00 Docusate Sodium (Colace) 100 mg BID PO Last administered on 01/19/17 09:29; Start 01/16/17 at 09:00 Magnesium Sulfate/ Dextrose 100 ml @ 100 mls/hr ONCE ONCE IV Last administered on 01/16/17 08:57; Start 01/16/17 at 08:45; Stop 01/16/17 at 09 :44; Status DC Sodium Chloride 250 ml @ 0 mls/hr BOLUS ONCE IV Last administered on 10:30; Start 01/16/17 at 10:30; Stop 01/16/17 at 10:31; Status DC Sodium Chloride 500 ml @ 500 mls/hr BOLUS ONCE IV Last administered on 13:11; Start 01/16/17 at 13:15; Stop 01/16/17 at 14:14; Status DC Sodium Chloride 500 ml @ 500 mls/hr Q1H ONCE IV Last administered on 17:36; Start 01/16/17 at 17:30; Stop 01/16/17 at 18:29; Status DC Ferrous Sulfate (Ferrous Sulfate) 325 mg BID PO Last administered on 09:28; Start 01/16/17 at 21:00 Oxycodone/ Acetaminophen (Percocet 7.5-325 Mg) 1 tab Q6H PRN PO pain 5-10 Last administered on 01/19/17 09:27; Start 01/16/17 at 18:15 Albumin Human 500 ml @ 250 mls/hr ONCE ONCE IV Last administered on 04:26; Start 01/17/17 at 03:45; Stop 01/17/17 at 05:44; Status DC Furosemide (Lasix Inj) 40 mg STK-MED ONCE .ROUTE Last administered on 09:04; Start 01/17/17 at 09:04; Stop 01/17/17 at 14:59; Status DC Potassium Bicarb/ Potassium Chloride (K-Lyte Cl Eff) 25 meq ONCE ONCE PO Last administered on 01/18/17 09:00; Start 01/18/17 at 09:00; Stop 01/18/17 at 09:01; Status DC Potassium Chloride (KCl) 30 meq ONCE ONCE PO ; Start 01/18/17 at 11:00; Stop 01/18/17 at 11:00; Status DC Potassium Phos/ Sodium Phos (K-Phos Neutral) 250 mg Q8HR PO Last administered on 01/19/17 05:28; Start 01/18/17 at 08:30 Bisacodyl (Dulcolax Supp) 10 mg ONCE ONCE RECTAL Last administered on 11:01; Start 01/18/17 at 10:00; Stop 01/18/17 at 10:20; Status DC Sodium Biphosphate/ Sodium Phosphate (Fleets Enema (Adult)) 133 ml ONCE ONCE AL ; Start 01/18/17 at 10:00; Stop 01/18/17 at 10:20; Status DC Potassium Bicarb/ Potassium Chloride (K-Lyte Cl Eff) 25 meq ONCE ONCE PO Last administered on 01/18/17 11:01; Start 01/18/17 at 10:00; Stop 01/18/17 at 10:20; Status DC Lidocaine HCl (Xylocaine-Mpf 1% Inj) 50 ml STK-MED ONCE OTHER ; Start 01/11/17 at 12:00; Stop 01/18/17 at 10:58; Status DC Rocuronium [place] (Zemuron Inj) 50 mg STK-MED ONCE IV PUSH ; Start 01/11/17 at 12:00; Stop 01/18/17 at 10:58; Status DC Neostigmine Methylsulfate (Prostigmin Inj) 3 mg STK-MED ONCE IV ; Start at 12:00; Stop 01/18/17 at 10:58; Status DC Glycopyrrolate (Robinul Inj) 1 mg STK-MED ONCE IV PUSH ; Start 01/11/17 at 12:00 ; Stop 01/18/17 at 10:58; Status DC Phenylephrine HCl (Neosynephrine/ NS 1000 Mcg/10ml Syr) 1,000 mcg STK-MED ONCE IV ; Start 01/11/17 at 12:00; Stop 01/18/17 at 10:58; Status DC Ondansetron HCl (Zofran Inj) 4 mg STK-MED ONCE IV PUSH ; Start 01/11/17 at 12:00 ; Stop 01/18/17 at 10:58; Status DC Fentanyl Citrate (fentaNYL INJ) 200 mcg STK-MED ONCE IV ; Start 01/11/17 at 12: 00; Stop 01/18/17 at 10:58; Status DC Morphine Sulfate (Morphine Inj) 4 mg STK-MED ONCE IV ; Start 01/11/17 at 12:00; Stop 01/18/17 at 10:58; Status DC Propofol (Diprivan 200 Mg/20 ml Inj) 200 mg STK-MED ONCE IV ; Start 01/11/17 at 12:00; Stop 01/18/17 at 10:58; Status DC Parenteral Electrolytes 1,000 ml @ As Directed STK-MED ONCE IV ; Start at 12:00; Stop 01/18/17 at 10:58; Status DC Lactated Ringer's 1,000 ml @ As Directed STK-MED ONCE IV ; Start 01/11/17 at 12 :00; Stop 01/18/17 at 10:58; Status DC Methylprednisolone Sodium Succinate (SoluMEDROL INJ) 40 mg BID IV PUSH Last administered on 01/19/17 09:29; Start 01/18/17 at 21:00 Bethanechol Chloride (Urecholine) 25 mg Q8H PO Last administered on 01/19/17 04:00; Start 01/18/17 at 20:00 Furosemide (Lasix Inj) 40 mg DAILY IV PUSH Last administered on 01/19/17 09: 28; Start 01/19/17 at 09:00 Potassium Chloride (KCl) 30 meq DAILY PO Last administered on 01/19/17 09:29 ; Start 01/19/17 at 09:00 A/P Problem List: (1) Pleural effusion on left ICD Code: J90 - Pleural effusion, not elsewhere classified Status: Acute (2) Respiratory distress ICD Code: R06.00 - Dyspnea, unspecified Status: Resolved (3) Hyponatremia ICD Code: E87.1 - Hypo-osmolality and hyponatremia Status: Acute (4) COPD (chronic obstructive pulmonary disease) ICD Code: J44.9 - Chronic obstructive pulmonary disease, unspecified Status: Chronic (5) Tobacco abuse ICD Code: Z72.0 - Tobacco use Status: Chronic Assessment and Plan ASSESSMENT Acute hypoxemic respiratory failure Complete left lung atelectasis Left-sided consolidation with pleural effusion Left thoracotomy with decortication, evacuation of complex loculated effusion, adhesiolysis Pulmonary hypertension COPD exacerbation Hyponatremia/hypophosphatemia Hypokalemia. Urinary tract infection on abx PLAN: Neuro: Hold propofol and reduce fentanyl to facilitate weaning trials Pain control with fentanyl--off all sedation at this time ORAL PAIN CONTROL Pulm: Acute hypoxemic respiratory failure Complete L lung atelectasis S/p decortication for L hemothorax COPD Tobacco abuse ?L lung mass vs loculated effusion/ Emergently intubated and placed on mechanical ventilation 01/15 s/p Bronchoscopy by Dr. Chung. Left lung valera reexpanded, persistent volume loss involving left lower lung field Start weaning trials with possible extubation--extubated January 16 Status post left thoracotomy and decortication 01/11/17-postop diagnosis was hemothorax Bronchodilators, Solumedrol 60 mg IV q8 hours s/p CT guided left-sided thoracentesis and CT placement by IR 12/29/16 CT chest: Either highly complex fluid or soft tissue mass involving the left lung base with mass effect. This measures 12.2 x 12.6 x 7.4 cm. 4.4 cm ascending aortic aneurysm. --Status post bronchoscopy with left sided bronchial alveolar lavage by pulmonary on January 16 CHEST TUBE REMOVED LOTS OF DRAINAGE FROM CHEST TUBE SITE CV: Pulmonary hypertension, most likely secondary from chronic hypoxia by echo Moderate aortic stenosis mild to moderate aortic regurgitation Monitor HR and BP and maintain MAP>65mmHg Echo 12/30 - systolic function grossly normal. Moderate /AI. Moderate to severe pulmonary hypertension.. GI: Nothing by mouth-has been extubated Diet as tolerated : Hyponatremia ?chronic but chronicity not truly known Hypokalemia, resolved- STILL LOW WILL REPLACE ID: UTI Possible pneumonia Continue Rocephin for now UTI present on admission with culture positive for pansensitive Klebsiella. Influenza screen, blood and pleural fluid cultures negative to date. Temporal fluid studies from January 11, on cultures negative to date URINARY RETENTION- STARTED ON BETHANECHOL YESTERDAY - WILL ADD FLOMAX Endo: SSI with Accu-Cheks for glycemic control. Heme: Macrocytic anemia Anemia of chronic disease and iron deficiency Monitor CBC. Normal B12, Supplement iron due to her lab findings consistent with iron deficiency Being transfused 1 unit packed red blood cells today DVT prophylaxis with SCDs. Lovenox 40 mg sq daily. IV Famotidine 20 mg IV q12h NOT BEING TRANSFUSED TODAY Needs physical therapy and occupational therapy aggressively NEEDS TO GET MOBILE AM LABS Discharge Planning Needs to be more mobile May require MARISCAL IF ABLE TO GET APPROVAL Problem Qualifiers (1) COPD (chronic obstructive pulmonary disease): Qualified Codes: J43.1 - Panlobular emphysema Raf Soria DO Jan 19, 2017 10:12
[2017-01-19] MEDS: TAMSULOSIN HCL 0.4 MG CAP PO SCH (12:03)
--- NOTE | 2017-01-19 12:55 | PD.ONC.PN ---
Subjective Subjective Remarks Afebrile "It keeps draining where I had the chest tube removed" Per RN she will be having a catheter placed as she is unable to void. Objective Data Date Time Temp Pulse Resp B/P (MAP) Pulse Ox O2 Delivery O2 Flow Rate FiO2 01/19/17 12:14 Room Air 01/19/17 11:47 97.9 85 18 162/86 (111) 95 01/19/17 09:17 Room Air 01/19/17 09:13 97.9 98 18 143/84 (103) 94 01/19/17 06:00 82 01/19/17 05:37 95 01/19/17 05:00 94 01/19/17 04:00 95 Room Air 01/19/17 03:00 90 01/19/17 02:00 92 01/19/17 01:00 104 01/19/17 00:00 98.0 106 18 147/87 (107) 95 01/19/17 00:00 94 01/19/17 00:00 97 Room Air 01/18/17 23:00 92 01/18/17 22:00 84 01/18/17 21:00 90 01/18/17 20:00 97 Room Air 01/18/17 20:00 98.3 93 18 128/74 (92) 95 01/18/17 20:00 108 01/18/17 18:41 19 01/18/17 18:03 97 01/18/17 17:00 93 01/18/17 15:00 79 01/18/17 15:00 98.2 90 19 128/74 (92) 96 01/18/17 15:00 96 Room Air 01/18/17 14:00 89 01/18/17 13:00 103 01/19/17 01/19/17 01/19/17 07:00 15:00 23:00 Intake Total 960 ml Output Total 1650 ml Balance -690 ml Result Diagram: 01/19/1751901/19/17519 Laboratory Results Laboratory Tests Test 01/18/17 14:00 01/19/17 05:20 Potassium Level 3.9 MEQ/L 3.9 MEQ/L White Blood Count 4.3 TH/MM3 Red Blood Count 2.90 MIL/MM3 Hemoglobin 10.1 GM/DL Hematocrit 29.3 % Mean Corpuscular Volume 101.0 FL Mean Corpuscular Hemoglobin 34.9 PG Mean Corpuscular Hemoglobin Concent 34.6 % Red Cell Distribution Width 21.2 % Platelet Count 67 TH/MM3 Mean Platelet Volume 9.7 FL Neutrophils (%) (Auto) 82.9 % Lymphocytes (%) (Auto) 9.4 % Monocytes (%) (Auto) 7.6 % Eosinophils (%) (Auto) 0.0 % Basophils (%) (Auto) 0.1 % Neutrophils # (Auto) 3.6 TH/MM3 Lymphocytes # (Auto) 0.4 TH/MM3 Monocytes # (Auto) 0.3 TH/MM3 Eosinophils # (Auto) 0.0 TH/MM3 Basophils # (Auto) 0.0 TH/MM3 CBC Comment AUTO DIFF Differential Comment AUTO DIFF CONFIRMED Platelet Estimate LOW Platelet Morphology Comment NORMAL Blood Urea Nitrogen 10 MG/DL Creatinine 0.52 MG/DL Random Glucose 121 MG/DL Total Protein 5.2 GM/DL Albumin 2.6 GM/DL Calcium Level 8.1 MG/DL Phosphorus Level 2.2 MG/DL Magnesium Level 2.0 MG/DL Alkaline Phosphatase 174 U/L Aspartate Amino Transf (AST/SGOT) 38 U/L Alanine Aminotransferase (ALT/SGPT) 41 U/L Total Bilirubin 0.7 MG/DL Sodium Level 140 MEQ/L Chloride Level 102 MEQ/L Carbon Dioxide Level 30.9 MEQ/L Anion Gap 7 MEQ/L Estimat Glomerular Filtration Rate 122 ML/MIN Imaging Studies Last 24 hours Impressions Chest X-Ray 01/19/17 0600 Signed Impressions: Service Date/Time: January 03:46 - CONCLUSION: Stable examination. Residual pleural effusion on the left and residual pleural air similar to the previous study. Jamie Camacho MD Administered Medications Medications (Trade) Dose Ordered Sig/Armin Route PRN Reason Start Time Stop Time Status Last Admin Dose Admin Sennosides (Senokot) 17.2 mg Q12H PRN PO Moderate constipation 12/29/16 11:30 01/17/17 02:19 Nifedipine (Procardia Xl) 30 mg DAILY PO 01/06/17 09:00 Future Hold 01/17/17 08:32 Furosemide (Lasix) 20 mg DAILY PO 01/05/17 17:35 Future Hold 01/15/17 09:21 Lactulose (Lactulose Liq) 30 ml QID PRN PO severe constipation 01/10/17 13:00 01/11/17 08:42 Albuterol Sulfate (Albuterol Neb) 2.5 mg Q2HR NEB PRN NEB WHEEZING 01/11/17 19:30 01/19/17 10:51 IV Flush (NS Flush) 2 ml BID IV FLUSH 01/11/17 21:00 01/19/17 09:29 Pantoprazole Sodium (Protonix) 40 mg HS PO 01/11/17 21:00 01/18/17 22:06 Ondansetron HCl (Zofran Inj) 4 mg Q6H PRN IV PUSH NAUSEA OR VOMITING 01/11/17 19:30 01/15/17 05:58 Sodium Chloride 1,000 ml @ 30 mls/hr Q24H IV 01/11/17 21:00 01/14/17 21:00 Polyethylene Glycol (Miralax) 17 gm DAILY PO 01/12/17 09:00 01/19/17 09:29 Ceftriaxone Sodium 1000 mg/ Sodium Chloride 100 ml @ 200 mls/hr Q24H IV 01/12/17 23:00 01/19/17 00:26 Chlorhexidine Gluconate (Peridex 0.12% Liq) 15 ml BID@08,20 MT 01/15/17 20:00 01/15/17 21:32 Enoxaparin Sodium (Lovenox Inj) 40 mg Q24H SQ 01/15/17 12:00 Future Hold 01/15/17 12:54 Lactulose (Lactulose Liq) 30 ml DAILY NG 01/16/17 09:00 01/18/17 09:00 Docusate Sodium (Colace) 100 mg BID PO 01/16/17 09:00 01/19/17 09:29 Ferrous Sulfate (Ferrous Sulfate) 325 mg BID PO 01/16/17 21:00 01/19/17 09:28 Oxycodone/ Acetaminophen (Percocet 7.5-325 Mg) 1 tab Q6H PRN PO pain 5-10 01/16/17 18:15 01/19/17 09:27 Potassium Phos/ Sodium Phos (K-Phos Neutral) 250 mg Q8HR PO 01/18/17 08:30 01/19/17 05:28 Methylprednisolone Sodium Succinate (SoluMEDROL INJ) 40 mg BID IV PUSH 01/18/17 21:00 01/19/17 09:29 Bethanechol Chloride (Urecholine) 25 mg Q8H PO 01/18/17 20:00 01/19/17 12:03 Furosemide (Lasix Inj) 40 mg DAILY IV PUSH 01/19/17 09:00 01/19/17 09:28 Potassium Chloride (KCl) 30 meq DAILY PO 01/19/17 09:00 01/19/17 09:29 Tamsulosin HCl (Flomax) 0.4 mg DAILY PO 01/19/17 11:00 01/19/17 12:03 Objective Remarks GENERAL: Chronically ill appearing 56-year-old female sitting up on bedside commode in no obvious distress SKIN: Warm and dry. Multiple bruises scattered to arms and upper back. Large dressing in place to left side of thorax. HEAD: Normocephalic. EYES: No injection or drainage. NECK: Supple, trachea midline. CARDIOVASCULAR: Regular rate and rhythm without murmurs. RESPIRATORY: Clear anteriorly. Breathing unlabored at rest. GASTROINTESTINAL: Abdomen soft, non-tender, nondistended. EXTREMITIES: No cyanosis. MUSCULOSKELETAL: Generalized weakness NEUROLOGICAL: No obvious focal deficit. Awake, alert, and oriented x3. Assessment/Plan Problem List: (1) Pancytopenia ICD Codes: D61.818 - Other pancytopenia Plan: 01/19: Patient continues to decline bone marrow biopsy. Pancytopenia improved today. Monitor CBC --Pancytopenia with macrocytosis and normal B12. --suspect that she has myelodysplastic syndrome until proven otherwise. --will need bone marrow biopsy and aspirate. (declining at this time) --iron studies are consistent with anemia of chronic disease --blood transfusion if the hemoglobin is less than 8 and platelet transfusion if the platelet count is less than 15 or any bleeding . Assessment 56y/o female with pancytopenia with macrocytosis. h/o COPD Attending Statement The exam, history, and the medical decision-making described in the above note were completed with the assistance of the mid-level provider. I reviewed and agree with the findings presented. I attest that I had a [id number] encounter with the patient on the same day, and personally performed and documented my assessment and findings in the medical record. No new complaints Chest tube is out Leukopenia resolved Macrocytic anemia Persist Low platelets improving Continue to monitor CBC Will follow Jo Grace Jan 19, 2017 12:55 Emil Soler MD Jan 19, 2017 23:11
--- NOTE | 2017-01-19 15:58 | PD.CAR.PN ---
CVT Progress Note Subjective/Hospital Course: 56-year-old white female with a history of COPD, chronic bronchitis who apparently was suffering from food poisoning. The patient states that she was unable to pass urine and became very weak, had lost weight with diarrhea, abdominal discomfort, dehydration and presented to ER for evaluation. She c/o 20 lb weight loss over the past [address] done showed evidence of a loculated mass-like infiltrate in the left lung base 12 x 12 cm and a left upper lobe lung nodule 7 mm. The patient was started on Solu-Medrol, IV antibiotics including Rocephin and Zithromax. Denies chest pains or abdominal pains or nausea or vomiting. She underwent chest tube placement in IR 12/29 with minimal drainage of this effusion.. Chest tube was removed. Repeat chest x- ray shows no change in the mod pleural effusion but does shows some mild patchy opacities in the right lung base. cardiology Dr Dianna perez pt TTE shows preserved EF and at least moderate /AI. present diagnosis : Respiratory Insufficiency, Left-sided consolidation , Exudative pleural effusion, COPD exacerbation, Urinary tract infection, x tobacco use Anemia, thrombocytopenia, Moderate aortic valve regurgitation, Moderate calcific aortic valve stenosis pleural fluid : exudative effusion. Cytology neg for malignant cells. Fluid cx neg CT chest 12/29 : Either highly complex fluid or soft tissue mass involving the left lung base with mass effect. This measures 12.2 x 12.6 x 7.4 cm. 4.4 cm ascending aortic aneurysm. pt is now agreeable for surgery : plan is for left thoracoscopic exploration for loculated pleural effusion , possible thoracotomy , decortication in am 01/11 on nasal cannula surgery: Left thoracoscopic exploration, left thoracotomy for decortication, evacuation of complex loculated effusion, adhesiolysis 01/12 pain controlled with GRINDING [employer]OM [employer]OR morphine needs aggressive pulm toileting OOB, ambulate recheck UA / pleural fluid cultures and path pending 01/13 chest tubes drained 130cc/ 12 hrs serous drainage / leave chest tube in for now CXR noted , from 01/12, mucus plugging, aggressive pulm toileting add ezpap and acapella now on Rocephin, will dc ancef, await on UA culture OOB, ambulate, 01/14/17 No complaints today. Denies dyspnea, but CXR shows complete opacification of left lung 01/15/17 Hypoxic this morning despite 100% FiO2. Transferred to CVICU and reintubated. Bronchoscopy pending. 01/16 remains in CVICU, hematology consulted s/p Bronch chest tube to water seal 01/17 now on nasal cannula 2 liters continue pulm toileting appreciate Hematology will transfer to stepdown continue PT/OT 01/18 chest tubes with minimal drainage both chest tubes removed without difficulty on 2 liter nasal cannula need aggressive PT/OT replace K+/ diuresis later if stable she will need SNF at discharge / very deconditioned will give ducolax supp / fleets today 01/19 need to be OOB, ambulate CXR noted , PTX stable Objective: GENERAL: SKIN: Warm and dry. dressing to left postero lateral chest intact HEAD: Normocephalic. EYES: No scleral icterus. No injection or drainage. NECK: Supple, trachea midline. No JVD or lymphadenopathy. CARDIOVASCULAR: Regular rate and rhythm without murmurs, gallops, or rubs. RESPIRATORY: Breath sounds equal bilaterally. No accessory muscle use. GASTROINTESTINAL: Abdomen soft, non-tender, nondistended. MUSCULOSKELETAL: No cyanosis, or edema. BACK: Nontender without obvious deformity. No CVA tenderness. Vital Signs Date Time Temp Pulse Resp B/P (MAP) Pulse Ox O2 Delivery O2 Flow Rate FiO2 01/19/17 14:25 83 01/19/17 13:00 86 01/19/17 12:14 Room Air 01/19/17 12:00 86 01/19/17 11:47 97.9 85 18 162/86 (111) 95 01/19/17 11:00 86 01/19/17 11:00 87 01/19/17 10:00 100 01/19/17 09:17 Room Air 01/19/17 09:13 97.9 98 18 143/84 (103) 94 01/19/17 09:00 96 01/19/17 08:00 88 01/19/17 07:00 96 01/19/17 06:00 82 01/19/17 05:37 95 01/19/17 05:00 94 01/19/17 04:00 95 Room Air 01/19/17 03:00 90 01/19/17 02:00 92 01/19/17 01:00 104 01/19/17 00:00 98.0 106 18 147/87 (107) 95 01/19/17 00:00 94 01/19/17 00:00 97 Room Air 01/18/17 23:00 92 01/18/17 22:00 84 01/18/17 21:00 90 01/18/17 20:00 97 Room Air 01/18/17 20:00 98.3 93 18 128/74 (92) 95 01/18/17 20:00 108 01/18/17 18:41 19 01/18/17 18:03 97 01/18/17 17:00 93 Labs: Laboratory Tests Test 01/19/17 05:20 White Blood Count 4.3 TH/MM3 (4.0-11.0) Red Blood Count 2.90 MIL/MM3 (4.00-5.30) Hemoglobin 10.1 GM/DL (11.6-15.3) Hematocrit 29.3 % (35.0-46.0) Mean Corpuscular Volume 101.0 FL (80.0-100.0) Mean Corpuscular Hemoglobin 34.9 PG (27.0-34.0) Mean Corpuscular Hemoglobin Concent 34.6 % (32.0-36.0) Red Cell Distribution Width 21.2 % (11.6-17.2) Platelet Count 67 TH/MM3 (150-450) Mean Platelet Volume 9.7 FL (7.0-11.0) Neutrophils (%) (Auto) 82.9 % (16.0-70.0) Lymphocytes (%) (Auto) 9.4 % (9.0-44.0) Monocytes (%) (Auto) 7.6 % (0.0-8.0) Eosinophils (%) (Auto) 0.0 % (0.0-4.0) Basophils (%) (Auto) 0.1 % (0.0-2.0) Neutrophils # (Auto) 3.6 TH/MM3 (1.8-7.7) Lymphocytes # (Auto) 0.4 TH/MM3 (1.0-4.8) Monocytes # (Auto) 0.3 TH/MM3 (0-0.9) Eosinophils # (Auto) 0.0 TH/MM3 (0-0.4) Basophils # (Auto) 0.0 TH/MM3 (0-0.2) CBC Comment AUTO DIFF Differential Comment AUTO DIFF CONFIRMED Platelet Estimate LOW (NORMAL) Platelet Morphology Comment NORMAL (NORMAL) Blood Urea Nitrogen 10 MG/DL (7-18) Creatinine 0.52 MG/DL (0.50-1.00) Random Glucose 121 MG/DL (74-106) Total Protein 5.2 GM/DL (6.4-8.2) Albumin 2.6 GM/DL (3.4-5.0) Calcium Level 8.1 MG/DL (8.5-10.1) Phosphorus Level 2.2 MG/DL (2.5-4.9) Magnesium Level 2.0 MG/DL (1.5-2.5) Alkaline Phosphatase 174 U/L (45-117) Aspartate Amino Transf (AST/SGOT) 38 U/L (15-37) Alanine Aminotransferase (ALT/SGPT) 41 U/L (10-53) Total Bilirubin 0.7 MG/DL (0.2-1.0) Sodium Level 140 MEQ/L (136-145) Potassium Level 3.9 MEQ/L (3.5-5.1) Chloride Level 102 MEQ/L (98-107) Carbon Dioxide Level 30.9 MEQ/L (21.0-32.0) Anion Gap 7 MEQ/L (5-15) Estimat Glomerular Filtration Rate 122 ML/MIN (>89) Result Diagram: 01/19/1751901/19/17 05 Telemetry: NSR (1) COPD (chronic obstructive pulmonary disease) Plan: on nebs, steroids I (2) Tobacco abuse Plan: smoking cessation (3) Physical deconditioning Plan: pt (4) Pleural effusion on left Plan: s/p left thoracoscopic exploration for loculated pleural effusion path negative for malignant cells cultures neg OOB PT/OT eval for rehab chest tubes removed allow pt to ambulate more today s/p Bronch 01/16 (5) Pancytopenia Plan: appreciate hematology input --Pancytopenia with macrocytosis and normal B12. --suspect myelodysplastic syndrome until proven otherwise. --will need bone marrow biopsy and aspirate. (declining at this time) --iron studies are consistent with anemia of chronic disease --blood transfusion if the hemoglobin is less than 8 and platelet transfusion if the platelet count is less than 15 or any bleeding / per Heme Problem Qualifiers (1) COPD (chronic obstructive pulmonary disease): Qualified Codes: J43.1 - Panlobular emphysema Alda Mcclain Jan 19, 2017 15:58
--- NOTE | 2017-01-19 18:01 | HHI.PR ---
Subjective Remarks S/P thoracotomy and decortication . Chest tube is out . Hgb 8.9G. Feels better . No fever. Objective Vital Signs Date Time Temp Pulse Resp B/P (MAP) Pulse Ox O2 Delivery O2 Flow Rate FiO2 01/19/17 16:59 98.2 101 18 110/76 (87) 99 01/19/17 14:25 83 01/19/17 13:00 86 01/19/17 12:14 Room Air 01/19/17 12:00 86 01/19/17 11:47 97.9 85 18 162/86 (111) 95 01/19/17 11:00 86 01/19/17 11:00 87 01/19/17 10:00 100 01/19/17 09:17 Room Air 01/19/17 09:13 97.9 98 18 143/84 (103) 94 01/19/17 09:00 96 01/19/17 08:00 88 01/19/17 07:00 96 01/19/17 06:00 82 01/19/17 05:37 95 01/19/17 05:00 94 01/19/17 04:00 95 Room Air 01/19/17 03:00 90 01/19/17 02:00 92 01/19/17 01:00 104 01/19/17 00:00 98.0 106 18 147/87 (107) 95 01/19/17 00:00 94 01/19/17 00:00 97 Room Air 01/18/17 23:00 92 01/18/17 22:00 84 01/18/17 21:00 90 01/18/17 20:00 97 Room Air 01/18/17 20:00 98.3 93 18 128/74 (92) 95 01/18/17 20:00 108 01/18/17 18:41 19 01/18/17 18:03 97 I/O 01/18/17 01/18/17 01/18/17 01/19/17 01/19/17 01/19/17 07:00 15:00 23:00 07:00 15:00 23:00 Intake Total 300 ml 500 ml 960 ml Output Total 60 ml 800 ml 200 ml 1650 ml Balance 240 ml -800 ml 300 ml -690 ml Intake Oral 300 ml 500 ml 960 ml Output Urine Total 0 ml 800 ml 200 ml 1650 ml Chest Tube Drainage Total 60 ml Bladder Scan Volume Amount 200 ml 375 ml 669 ml 200 ml 669 ml 730 ml 669 ml 730 ml # Bowel Movements 0 1 Result Diagram: 01/19/1751901/19/17519 Objective Remarks GENERAL: This is an averagely built middle-aged white female who is alert HEENT: Head normocephalic. Pupils are reactive and equal. Tongue moist. Throat is clear. Nasal mucosa clear. NECK: Supple. No bruits, thyroid enlargement or lymphadenopathy. CHEST: Distant breath sounds at the left lung base and occ wheeze with crackles left chest . HEART: The heart sounds are irregular, S1-S2. No murmur. No S3. ABDOMEN: Soft and nontender. No organomegaly. Bowel sounds are active. EXTREMITIES: Edema 1+ with diminished peripheral pulses. Bilateral Foot deformity. NEUROLOGIC: Reflexes are 1+ . No deficits SKIN: Dry and scaly. Assessment and Plan Assessment and Plan IMPRESSION 1. COPD with acute exacerbation, resolved 2. S/p decortication left Chest 3. Atelectasis left lower lobe with mucus plugging. 4. Hyponatremia. 5. Abnormal liver enzymes 6. Anemia of chronic disease. Plan : 1. O2 2 L. 2. IS at bedside q3h 3. D/C solumedrol 4. Duoneb nebs tid. 5. Prednisone 10 mg bid 6. D/C Mucomyst 7. Up with help 8. Anemia W/U and Bone marrow biopsy Venessa Chung MD Jan 19, 2017 18:01
[2017-01-19] MEDS: MAGNESIUM SULFATE 1 GM PREMIX 100 ML IV SCH ×2 (18:49→20:26)
[2017-01-19] MEDS: SODIUM CHLOR 0.9% 1000 ML INJ 1,000 ML IV SCH (21:00)
[2017-01-19] MEDS: PANTOPRAZOLE SOD 40 MG DELAYED RELEASE TAB PO SCH (21:57)
[2017-01-19] MEDS: predniSONE 10 MG TAB PO SCH (21:57)
[2017-01-20] VITALS (29 sets, daily range): BP systolic 123–155; BP diastolic 64–86; PULSE 83–110; RESP 16–27; TEMP 92.6–98.6; O2SAT 95–98
[2017-01-20] MEDS: BETHANECHOL CHL 25 MG TAB PO SCH ×3 (03:27→21:31)
[2017-01-20] MEDS: RESP: ALBUTEROL 2.5 MG/3 ML NEB (PRN) NEB ×4 (03:52→23:35)
[2017-01-20 05:02] LABS: ALT (GPT) 49 U/L (10-53); ANION GAP 8 MEQ/L (5-15); AST (GOT) 50 U/L (15-37); BICARBONATE 28.6 MEQ/L (21.0-32.0); BLOOD UREA NITROGEN 11 MG/DL (7-18); CHLORIDE 101 MEQ/L (98-107); GLOMERULAR FILTRATION RATE 144 ML/MIN (>89); MAGNESIUM 2.5 MG/DL (1.5-2.5); POTASSIUM 3.5 MEQ/L (3.5-5.1); SODIUM (NA) 138 MEQ/L (136-145)
[2017-01-20 05:04] LABS: ALKALINE PHOSPHATASE 178 U/L (45-117); TOTAL BILIRUBIN ADULT 0.9 MG/DL (0.2-1.0)
[2017-01-20 05:11] LABS: AUTOMATED NEUTROPHIL # 2.3 TH/MM3 (1.8-7.7); BASOPHIL % 0.1 % (0.0-2.0); EOSINOPHIL % 0.1 % (0.0-4.0); HEMATOCRIT 28.2 % (35.0-46.0); LYMPH % 15.1 % (9.0-44.0); LYMPHOCYTE # 0.5 TH/MM3 (1.0-4.8); MEAN CELL VOLUME 103.4 FL (80.0-100.0); MEAN CORPUSCULAR HEMOGLOBIN 35.3 PG (27.0-34.0); MEAN CORPUSCULAR HGB CONC 34.1 % (32.0-36.0); MONO % 8.9 % (0.0-8.0); NEUT % 75.8 % (16.0-70.0); PLATELET COUNT 66 TH/MM3 (150-450); RED BLOOD COUNT 2.73 MIL/MM3 (4.00-5.30); RED CELL DISTRIBUTION WIDTH 21.1 % (11.6-17.2); WHITE BLOOD COUNT 3.1 TH/MM3 (4.0-11.0)
[2017-01-20] MEDS: POTASSIUM PHOSPHATE/SODIUM PHOSPHATE 250 MG TAB PO SCH ×3 (05:12→21:31)
[2017-01-20] MEDS: oxyCODONE/ACETAMINOPHEN 7.5 MG/325 MG TAB PO PRN ×4 (05:12→23:29)
[2017-01-20 05:22] LABS: HEMO FLAGS AUTO DIFF
[2017-01-20] MEDS: CHLORHEXIDINE 0.12% (ORAL KIT) 15 ML CUP MT SCH ×2 (08:00→20:00)
[2017-01-20 08:07] LABS: PLATELET ESTIMATE SMEAR LOW (NORMAL); PLATELET MORPHOLOGY NORMAL (NORMAL); SCAN/DIFF AUTO DIFF CONFIRMED
[2017-01-20] MEDS: SODIUM CHLORIDE 0.9% FLUSH 5 ML FLUSH IV FLUSH SCH ×2 (09:00→21:00)
[2017-01-20] MEDS: FUROSEMIDE 40 MG/4 ML VIAL IV PUSH SCH (09:15)
[2017-01-20] MEDS: predniSONE 10 MG TAB PO SCH ×2 (09:16→21:31)
[2017-01-20] MEDS: FERROUS SULFATE 325 MG (65 MG ELEMENTAL IRON) TAB PO SCH ×2 (09:16→21:31)
[2017-01-20] MEDS: TAMSULOSIN HCL 0.4 MG CAP PO SCH (09:16)
[2017-01-20] MEDS: POTASSIUM CHLORIDE 10 MEQ CONTROLLED RELEASE TAB PO SCH (09:16)
[2017-01-20] MEDS: DOCUSATE SODIUM 100 MG CAP PO SCH ×2 (09:16→21:36)
[2017-01-20] MEDS: LACTULOSE SYRUP 20 GM/30 ML CUP NG SCH (09:16)
[2017-01-20] MEDS: POLYETHYLENE GLYCOL 17 GM PKG PO SCH (09:16)
--- NOTE | 2017-01-20 11:53 | PD.CAR.PN ---
CVT Progress Note Subjective/Hospital Course: 56-year-old white female with a history of COPD, chronic bronchitis who apparently was suffering from food poisoning. The patient states that she was unable to pass urine and became very weak, had lost weight with diarrhea, abdominal discomfort, dehydration and presented to ER for evaluation. She c/o 20 lb weight loss over the past [address] done showed evidence of a loculated mass-like infiltrate in the left lung base 12 x 12 cm and a left upper lobe lung nodule 7 mm. The patient was started on Solu-Medrol, IV antibiotics including Rocephin and Zithromax. Denies chest pains or abdominal pains or nausea or vomiting. She underwent chest tube placement in IR 12/29 with minimal drainage of this effusion.. Chest tube was removed. Repeat chest x- ray shows no change in the mod pleural effusion but does shows some mild patchy opacities in the right lung base. cardiology Dr Dianna perez pt TTE shows preserved EF and at least moderate /AI. present diagnosis : Respiratory Insufficiency, Left-sided consolidation , Exudative pleural effusion, COPD exacerbation, Urinary tract infection, x tobacco use Anemia, thrombocytopenia, Moderate aortic valve regurgitation, Moderate calcific aortic valve stenosis pleural fluid : exudative effusion. Cytology neg for malignant cells. Fluid cx neg CT chest 12/29 : Either highly complex fluid or soft tissue mass involving the left lung base with mass effect. This measures 12.2 x 12.6 x 7.4 cm. 4.4 cm ascending aortic aneurysm. pt is now agreeable for surgery : plan is for left thoracoscopic exploration for loculated pleural effusion , possible thoracotomy , decortication in am 01/11 on nasal cannula surgery: Left thoracoscopic exploration, left thoracotomy for decortication, evacuation of complex loculated effusion, adhesiolysis 01/12 pain controlled with OYSTER F[employer]ER morphine needs aggressive pulm toileting OOB, ambulate recheck UA / pleural fluid cultures and path pending 01/13 chest tubes drained 130cc/ 12 hrs serous drainage / leave chest tube in for now CXR noted , from 01/12, mucus plugging, aggressive pulm toileting add ezpap and acapella now on Rocephin, will dc ancef, await on UA culture OOB, ambulate, 01/14/17 No complaints today. Denies dyspnea, but CXR shows complete opacification of left lung 01/15/17 Hypoxic this morning despite 100% FiO2. Transferred to CVICU and reintubated. Bronchoscopy pending. 01/16 remains in CVICU, hematology consulted s/p Bronch chest tube to water seal 01/17 now on nasal cannula 2 liters continue pulm toileting appreciate Hematology will transfer to stepdown continue PT/OT 01/18 chest tubes with minimal drainage both chest tubes removed without difficulty on 2 liter nasal cannula need aggressive PT/OT replace K+/ diuresis later if stable she will need SNF at discharge / very deconditioned will give ducolax supp / fleets today 01/19 need to be OOB, ambulate CXR noted , PTX stable 01/20 pt needs much encouragement to get OOB, ambulate, very weak recommended she agree to Bone marrow bx dressing in place left chest wall, some serous drainage on Room air very painful , depressed , may need psych eval will leave to PCP, ok to transfer out of [facility] will follow prn, she has outpt appointment for f/u in our office Objective: GENERAL: very weak, painful SKIN: Warm and dry. dressing in place left postero lateral chest wall HEAD: Normocephalic. EYES: No scleral icterus. No injection or drainage. NECK: Supple, trachea midline. No JVD or lymphadenopathy. CARDIOVASCULAR: Regular rate and rhythm without murmurs, gallops, or rubs. RESPIRATORY: coarse bilateral breath sounds , poor cough effort No accessory muscle use. GASTROINTESTINAL: Abdomen soft, non-tender, nondistended. MUSCULOSKELETAL: No cyanosis, or edema. BACK: Nontender without obvious deformity. No CVA tenderness. Vital Signs Date Time Temp Pulse Resp B/P (MAP) Pulse Ox O2 Delivery O2 Flow Rate FiO2 01/20/17 07:23 97.7 87 27 123/64 (83) 98 01/20/17 07:23 98 Room Air 01/20/17 06:02 91 01/20/17 05:02 92 01/20/17 04:00 84 01/20/17 03:31 Room Air 01/20/17 03:29 97.5 86 16 127/73 (91) 97 01/20/17 03:00 88 01/20/17 02:12 83 01/20/17 01:00 94 01/20/17 00:00 90 01/19/17 23:40 98 Room Air 01/19/17 23:40 97.6 95 20 126/65 (85) 98 01/19/17 23:00 93 01/19/17 22:00 94 01/19/17 21:00 90 01/19/17 20:00 88 01/19/17 19:45 97.9 88 16 118/71 (87) 100 01/19/17 19:45 100 Room Air 01/19/17 19:00 88 01/19/17 18:00 90 01/19/17 17:00 104 01/19/17 16:59 98.2 101 18 110/76 (87) 99 01/19/17 16:59 Room Air 01/19/17 16:00 106 01/19/17 15:00 109 01/19/17 14:25 83 01/19/17 14:00 86 01/19/17 13:00 86 01/19/17 12:14 Room Air 01/19/17 12:00 86 01/19/17 11:47 97.9 85 18 162/86 (111) 95 Labs: Laboratory Tests Test 01/20/17 04:14 White Blood Count 3.1 TH/MM3 (4.0-11.0) Red Blood Count 2.73 MIL/MM3 (4.00-5.30) Hemoglobin 9.6 GM/DL (11.6-15.3) Hematocrit 28.2 % (35.0-46.0) Mean Corpuscular Volume 103.4 FL (80.0-100.0) Mean Corpuscular Hemoglobin 35.3 PG (27.0-34.0) Mean Corpuscular Hemoglobin Concent 34.1 % (32.0-36.0) Red Cell Distribution Width 21.1 % (11.6-17.2) Platelet Count 66 TH/MM3 (150-450) Mean Platelet Volume 10.5 FL (7.0-11.0) Neutrophils (%) (Auto) 75.8 % (16.0-70.0) Lymphocytes (%) (Auto) 15.1 % (9.0-44.0) Monocytes (%) (Auto) 8.9 % (0.0-8.0) Eosinophils (%) (Auto) 0.1 % (0.0-4.0) Basophils (%) (Auto) 0.1 % (0.0-2.0) Neutrophils # (Auto) 2.3 TH/MM3 (1.8-7.7) Lymphocytes # (Auto) 0.5 TH/MM3 (1.0-4.8) Monocytes # (Auto) 0.3 TH/MM3 (0-0.9) Eosinophils # (Auto) 0.0 TH/MM3 (0-0.4) Basophils # (Auto) 0.0 TH/MM3 (0-0.2) CBC Comment AUTO DIFF Differential Comment AUTO DIFF CONFIRMED Platelet Estimate LOW (NORMAL) Platelet Morphology Comment NORMAL (NORMAL) Blood Urea Nitrogen 11 MG/DL (7-18) Creatinine 0.45 MG/DL (0.50-1.00) Random Glucose 94 MG/DL (74-106) Total Protein 4.9 GM/DL (6.4-8.2) Albumin 2.4 GM/DL (3.4-5.0) Calcium Level 7.9 MG/DL (8.5-10.1) Phosphorus Level 2.6 MG/DL (2.5-4.9) Magnesium Level 2.5 MG/DL (1.5-2.5) Alkaline Phosphatase 178 U/L (45-117) Aspartate Amino Transf (AST/SGOT) 50 U/L (15-37) Alanine Aminotransferase (ALT/SGPT) 49 U/L (10-53) Total Bilirubin 0.9 MG/DL (0.2-1.0) Sodium Level 138 MEQ/L (136-145) Potassium Level 3.5 MEQ/L (3.5-5.1) Chloride Level 101 MEQ/L (98-107) Carbon Dioxide Level 28.6 MEQ/L (21.0-32.0) Anion Gap 8 MEQ/L (5-15) Estimat Glomerular Filtration Rate 144 ML/MIN (>89) Result Diagram: 01/20/1741301/20/17413 (1) COPD (chronic obstructive pulmonary disease) Plan: on nebs, steroids needs aggressive pulm toileting (2) Tobacco abuse Plan: smoking cessation (3) Physical deconditioning Plan: pt / ot 7 days a week (4) Pleural effusion on left Plan: s/p left thoracoscopic exploration for loculated pleural effusion path negative for malignant cells cultures neg OOB PT/OT eval for rehab chest tubes removed encourage pt to ambulate more today s/p Bronch 01/16 ok to transfer out of [facility] (5) Pancytopenia Plan: appreciate hematology input --Pancytopenia with macrocytosis and normal B12. --suspect myelodysplastic syndrome until proven otherwise. --will need bone marrow biopsy and aspirate. (declining at this time) --iron studies are consistent with anemia of chronic disease --blood transfusion if the hemoglobin is less than 8 and platelet transfusion if the platelet count is less than 15 or any bleeding / per Heme Problem Qualifiers (1) COPD (chronic obstructive pulmonary disease): Qualified Codes: J43.1 - Panlobular emphysema Alda Mcclain Jan 20, 2017 11:53
--- NOTE | 2017-01-20 12:28 | HHI.PR ---
Subjective Remarks S/P thoracotomy and decortication . Chest tube is out . Feels better .Refused Bone marrow biopsy. No fever. Objective Vital Signs Date Time Temp Pulse Resp B/P (MAP) Pulse Ox O2 Delivery O2 Flow Rate FiO2 01/20/17 11:43 98 Room Air 01/20/17 11:43 97.8 98 21 130/75 (93) 98 01/20/17 07:23 97.7 87 27 123/64 (83) 98 01/20/17 07:23 98 Room Air 01/20/17 06:02 91 01/20/17 05:02 92 01/20/17 04:00 84 01/20/17 03:31 Room Air 01/20/17 03:29 97.5 86 16 127/73 (91) 97 01/20/17 03:00 88 01/20/17 02:12 83 01/20/17 01:00 94 01/20/17 00:00 90 01/19/17 23:40 98 Room Air 01/19/17 23:40 97.6 95 20 126/65 (85) 98 01/19/17 23:00 93 01/19/17 22:00 94 01/19/17 21:00 90 01/19/17 20:00 88 01/19/17 19:45 97.9 88 16 118/71 (87) 100 01/19/17 19:45 100 Room Air 01/19/17 19:00 88 01/19/17 18:00 90 01/19/17 17:00 104 01/19/17 16:59 98.2 101 18 110/76 (87) 99 01/19/17 16:59 Room Air 01/19/17 16:00 106 01/19/17 15:00 109 01/19/17 14:25 83 01/19/17 14:00 86 01/19/17 13:00 86 I/O 01/19/17 01/19/17 01/19/17 01/20/17 01/20/17 01/20/17 07:00 15:00 23:00 07:00 15:00 23:00 Intake Total 960 ml 820 ml 480 ml Output Total 1650 ml 1350 ml 300 ml Balance -690 ml -530 ml 180 ml Intake Oral 960 ml 720 ml 480 ml IV Total 100 ml Output Urine Total 1650 ml 1350 ml 300 ml Bladder Scan Volume Amount 669 ml 669 ml 669 ml # Bowel Movements 1 Result Diagram: 01/20/1741301/20/17413 Objective Remarks GENERAL: This is an averagely built middle-aged white female who is alert HEENT: Head normocephalic. Pupils are reactive and equal. Tongue moist. Throat is clear. Nasal mucosa clear. NECK: Supple. No bruits, thyroid enlargement or lymphadenopathy. CHEST: Distant breath sounds at the left lung base and occ wheeze left chest . HEART: The heart sounds are irregular, S1-S2. No murmur. No S3. ABDOMEN: Soft and nontender. No organomegaly. Bowel sounds are active. EXTREMITIES: No Edema with diminished peripheral pulses. NEUROLOGIC: Reflexes are 1+ . No deficits SKIN: Dry and scaly. Assessment and Plan Assessment and Plan IMPRESSION 1. COPD with acute exacerbation, resolved 2. S/p decortication left Chest 3. Atelectasis left lower lobe with mucus plugging. 4. Hyponatremia. 5. Abnormal liver enzymes 6. Anemia of chronic disease. Plan : 1. D/C O2 2. IS at bedside q3h 3. D/C solumedrol 4. D/C Duoneb nebs 5. Prednisone 10 mg bid and taper off in 10 days 6. Add Spiriva , 1 cap daily 7. Up with help 8. Anemia W/U and Bone marrow biopsy Venessa Chung MD Jan 20, 2017 12:28
--- NOTE | 2017-01-20 13:13 | HHI.PR ---
Subjective Remarks The patient is a 56-year-old female with past medical history of COPD, who presented to [facility] ED with complaints of coughing, wheezing. The patient states that she had food poisoning last week where she had nausea and diarrhea, after she ate suspicious food. She denies any worsening of dyspnea from baseline. In addition, she denies any constitutional symptoms. She quit smoking five and a half years ago and used to smoke one to two packs per day for about 30 years. Chest x-ray in the ER showed consolidation with large effusion and volume loss on the left. On further history she denies any hemoptysis, however, she reports 20 pounds weight loss in the last 4 months and decreased p.o. intake. She is being followed up by Dr. Chung her outpatient project manager/design manager. The patient denies any use of oxygen at home, however, she is on bronchodilators p.r.n. Her laboratory data is significant for hyponatremia with sodium level 125, lactic acid level 2.1. On arrival to the ER she was tachycardic and tachypneic. When seen the patient is on 4 liters nasal cannula with saturation ranges between 95-100%. In the ER she was given Rocephin, azithromycin, Solu-Medrol, bronchodilator treatment and IV fluids. Her current blood pressure is 107/61. 12/30 Patient s/p CT guided thoracentesis and CT placement by IR yesterday. She is feeling better. Subjective: 12/31 She complains of pain and requests increased pain meds. Repeat imaging ordered per pulmonology to evaluate mass vs loculated effusion. On NC. [facility] RECONSULT NOTE 01/15/17 Critical care consulted for severe hypoxemic respiratory failure. On 01/11/17 patient had left thoracotomy for decortication, evacuation of complex loculated effusion, adhesiolysis by Dr. Gamboa. CXR 01/14/17 showed near complete whiteout of the left lung-pulmonary Dr. Ridley is following. Today a HALICAT was called as the patient was found profoundly hypoxemic in the 70s oxygen saturation. She was placed on 100% percent nonrebreather with improvement in saturation only to 81%. Stat ABG on 100% nonrebreather showed pH of 7.29 PCO2 of 62 pO2 of 53 and oxygen saturation 79%. Stat chest x-ray showed complete whiteout of the left lung. I discussed with the patient briefly, she is agreeable for intubation. I proceeded with endotracheal intubation and placed on mechanical ventilation -patient saturation gradually improved to 100%. Discussed with pulmonology Dr. Ridley. He plans to do bronchoscopy today afternoon. SUBJ 01/16: Patient had bronchoscopy by Dr. Ridley yesterday. Chest x-ray today shows improvement in aeration but still with volume loss left lower lung valera which is unchanged from the post thoracotomy chest x-rays. Wide-awake on vent tolerating CPAP will proceed with weaning trials 01-17 TRANSFERRED BACK TO OUR SERVICE EXTUBATED YESTERDAY GETTING BLOOD 1 UNIT PRBC TODAY PT AND OT DW RN AND PT LESS SOB THAN YESTERDAY 01-18 REFUSING BONE MARROW BIOPSY NO BLOOD TRANSFUSION TODAY NEED PT AND OT BECOMING MOBILE HAD CHEST TUBES OUT AM LABS HAD BM DW RN AND PT 01-19 still having urinary retention WILL NEED WILLARD CATHETER SINCE NOT URINATING ON HER OWN IF NOT URINATING AFTER LASIX DW RN AND PT LOTS OF DRAINAGE FROM LEFT CHEST WOUND AREA NO SOB HAD GOOD BM TODAY DW RN AND PT 01-20 still needing URINARY RETENTION STILL NEEDING WILLARD STILL LOTS OF DRAINAGE FROM LEFT CHEST WOUND AREA NO SOB, NO CHEST PAIN DW RN AND PT Objective Vitals Vital Signs Date Time Temp Pulse Resp B/P (MAP) Pulse Ox O2 Delivery O2 Flow Rate FiO2 01/20/17 12:00 86 01/20/17 11:43 98 Room Air 01/20/17 11:43 97.8 98 21 130/75 (93) 98 01/20/17 11:00 85 01/20/17 10:00 101 01/20/17 09:00 93 01/20/17 08:00 85 01/20/17 07:23 97.7 87 27 123/64 (83) 98 01/20/17 07:23 98 Room Air 01/20/17 07:00 84 01/20/17 06:02 91 01/20/17 05:02 92 01/20/17 04:00 84 01/20/17 03:31 Room Air 01/20/17 03:29 97.5 86 16 127/73 (91) 97 01/20/17 03:00 88 01/20/17 02:12 83 01/20/17 01:00 94 01/20/17 00:00 90 01/19/17 23:40 98 Room Air 01/19/17 23:40 97.6 95 20 126/65 (85) 98 01/19/17 23:00 93 01/19/17 22:00 94 01/19/17 21:00 90 01/19/17 20:00 88 01/19/17 19:45 97.9 88 16 118/71 (87) 100 01/19/17 19:45 100 Room Air 01/19/17 19:00 88 01/19/17 18:00 90 01/19/17 17:00 104 01/19/17 16:59 98.2 101 18 110/76 (87) 99 01/19/17 16:59 Room Air 01/19/17 16:00 106 01/19/17 15:00 109 01/19/17 14:25 83 01/19/17 14:00 86 I/O 01/19/17 01/19/17 01/19/17 01/20/17 01/20/17 01/20/17 07:00 15:00 23:00 07:00 15:00 23:00 Intake Total 960 ml 820 ml 480 ml Output Total 1650 ml 1350 ml 300 ml Balance -690 ml -530 ml 180 ml Intake Oral 960 ml 720 ml 480 ml IV Total 100 ml Output Urine Total 1650 ml 1350 ml 300 ml Bladder Scan Volume Amount 669 ml 669 ml 669 ml # Bowel Movements 1 Result Diagram: 01/20/17 0414 01/20/17 0414 Other Results Laboratory Tests Test 01/18/17 04:37 01/18/17 14:00 01/19/17 05:20 01/20/17 04:14 White Blood Count 3.4 TH/MM3 4.3 TH/MM3 3.1 TH/MM3 Red Blood Count 2.64 MIL/MM3 2.90 MIL/MM3 2.73 MIL/MM3 Hemoglobin 8.9 GM/DL 10.1 GM/DL 9.6 GM/DL Hematocrit 26.5 % 29.3 % 28.2 % Mean Corpuscular Volume 100.6 FL 101.0 FL 103.4 FL Mean Corpuscular Hemoglobin 33.9 PG 34.9 PG 35.3 PG Mean Corpuscular Hemoglobin Concent 33.7 % 34.6 % 34.1 % Red Cell Distribution Width 20.9 % 21.2 % 21.1 % Platelet Count 48 TH/MM3 67 TH/MM3 66 TH/MM3 Mean Platelet Volume 9.5 FL 9.7 FL 10.5 FL Neutrophils (%) (Auto) 86.6 % 82.9 % 75.8 % Lymphocytes (%) (Auto) 8.0 % 9.4 % 15.1 % Monocytes (%) (Auto) 5.3 % 7.6 % 8.9 % Eosinophils (%) (Auto) 0.0 % 0.0 % 0.1 % Basophils (%) (Auto) 0.1 % 0.1 % 0.1 % Neutrophils # (Auto) 2.9 TH/MM3 3.6 TH/MM3 2.3 TH/MM3 Lymphocytes # (Auto) 0.3 TH/MM3 0.4 TH/MM3 0.5 TH/MM3 Monocytes # (Auto) 0.2 TH/MM3 0.3 TH/MM3 0.3 TH/MM3 Eosinophils # (Auto) 0.0 TH/MM3 0.0 TH/MM3 0.0 TH/MM3 Basophils # (Auto) 0.0 TH/MM3 0.0 TH/MM3 0.0 TH/MM3 CBC Comment AUTO DIFF AUTO DIFF AUTO DIFF Differential Comment AUTO DIFF CONFIRMED AUTO DIFF CONFIRMED AUTO DIFF CONFIRMED Platelet Estimate LOW LOW LOW Platelet Morphology Comment NORMAL NORMAL NORMAL Blood Urea Nitrogen 8 MG/DL 10 MG/DL 11 MG/DL Creatinine 0.35 MG/DL 0.52 MG/DL 0.45 MG/DL Random Glucose 138 MG/DL 121 MG/DL 94 MG/DL Total Protein 4.9 GM/DL 5.2 GM/DL 4.9 GM/DL Albumin 2.4 GM/DL 2.6 GM/DL 2.4 GM/DL Calcium Level 8.1 MG/DL 8.1 MG/DL 7.9 MG/DL Phosphorus Level 1.8 MG/DL 2.2 MG/DL 2.6 MG/DL Magnesium Level 2.1 MG/DL 2.0 MG/DL 2.5 MG/DL Alkaline Phosphatase 162 U/L 174 U/L 178 U/L Aspartate Amino Transf (AST/SGOT) 24 U/L 38 U/L 50 U/L Alanine Aminotransferase (ALT/SGPT) 29 U/L 41 U/L 49 U/L Total Bilirubin 0.8 MG/DL 0.7 MG/DL 0.9 MG/DL Sodium Level 139 MEQ/L 140 MEQ/L 138 MEQ/L Potassium Level 3.1 MEQ/L 3.9 MEQ/L 3.9 MEQ/L 3.5 MEQ/L Chloride Level 102 MEQ/L 102 MEQ/L 101 MEQ/L Carbon Dioxide Level 29.5 MEQ/L 30.9 MEQ/L 28.6 MEQ/L Anion Gap 8 MEQ/L 7 MEQ/L 8 MEQ/L Estimat Glomerular Filtration Rate 193 ML/MIN 122 ML/MIN 144 ML/MIN Hemoglobin A1c 4.9 % Free Thyroxine 0.98 NG/DL Thyroid Stimulating Hormone 3rd Gen 1.590 uIU/ML Imaging Last Impressions Chest X-Ray 01/19/17 0600 Signed Impressions: Service Date/Time: January 03:46 - CONCLUSION: Stable examination. Residual pleural effusion on the left and residual pleural air similar to the previous study. Jamie Camacho MD Abdomen X-Ray 01/15/17 1820 Signed Impressions: Service Date/Time: Sunday, January 15, 2017 18:30 - CONCLUSION: 1. No obvious obstruction or pneumoperitoneum on this limited view of the abdomen. 2. Nasogastric tube with the tip projecting over the proximal gastric body. 3. Volume loss in the left hemithorax with stable position of 2 thoracostomy tubes and left basilar consolidation. . Yogesh Isbell MD Chest CT 12/31/16 0000 Signed Impressions: Service Date/Time: Saturday, December 31, 2016 14:44 - CONCLUSION: 1. Interval placement of left-sided chest tube with slight decrease in the complex low-density fluid collection in the lower left hemithorax. 2. Volume loss remains in the left hemithorax with consolidation in the left infrahilar region 3. New small right pleural effusion and consolidation in the right posterior lower lobe 4. The previously noted fluid and debris in the left mainstem bronchus is no longer present. Kashif Garcia MD Chest Ultrasound 12/30/16 0000 Signed Impressions: Service Date/Time: Friday, December 30, 2016 09:59 - CONCLUSION: No focal collections of anechoic free fluid. Prominent amount of heterogeneous echotexture material surrounding the left lower chest. Art Willard MD Chest Tube Insertion 12/29/16 1224 Signed Impressions: Service Date/Time: December 13:22 - CONCLUSION: Uncomplicated CT-guided thoracentesis. David Mora MD Objective Remarks GENERAL: Awake alert oriented 3 --talkative and cooperative SKIN: Warm and dry. No obvious rashes HEAD: Atraumatic. Normocephalic. EYES: Pupils equal and round. No scleral icterus. No injection or drainage. Extraocular muscles intact ENT: No nasal bleeding or discharge. Mucous membranes pink and moist. Tongue is midline NECK: Trachea midline. No JVD. Supple CARDIOVASCULAR: Regular rate and rhythm. S1-S2 no S3 or S4 no heave or thrill or rub RESPIRATORY: No accessory muscle use. Breath sounds equal bilaterally. Coarse breath sounds bilaterally GASTROINTESTINAL: Abdomen soft, non-tender, nondistended. Hepatic and splenic margins not palpable. MUSCULOSKELETAL: Extremities without clubbing, cyanosis, or edema. No obvious deformities. Bilateral lower extremity weakness NEUROLOGICAL: Awake and alert. No obvious cranial nerve deficits. Motor grossly within normal limits. 4 out of 5 muscle strength in the arms and 4 out of 5 muscle strength in the legs. Normal speech. PSYCHIATRIC: Appropriate mood and affect; insight and judgment ABnormal. WILLARD CATHETER IN PLACE Procedures CT guided thoracentesis with L chest tube placement 12/29 Left thoracoscopic exploration, left thoracotomy for decortication, evacuation of complex loculated effusion, adhesiolysis 01/11/1701-15 INTUBATED 01-16 EXTUBATED 01-16 BRONCHOSCOPY WITH BAL OF LEFT SIDE Medications and IVs Current Medications Sodium Chloride (NS Flush) 2 ml UNSCH PRN IVF FLUSH AFTER USING IV ACCESS Last administered on 01/08/17 21:04; Start 12/29/16 at 10:15; Stop 01/10/17 at 17: 47; Status DC Methylprednisolone Sodium Succinate (SoluMEDROL INJ) 125 mg ONCE ONCE IV PUSH Last administered on 12/29/16 10:17; Start 12/29/16 at 10:15; Stop 12/29/16 at 10:16; Status DC Albuterol/ Ipratropium (Duoneb Neb) 1 ampule ONCE ONCE INH Last administered on 12/29/16 10:13; Start 12/29/16 at 10:15; Stop 12/29/16 at 10:16; Status DC Albuterol Sulfate (Albuterol Neb) 2.5 mg Q15M INH Last administered on 10:13; Start 12/29/16 at 10:15; Stop 12/29/16 at 10:31; Status DC Sodium Chloride 1,000 ml @ 125 mls/hr Q8H IV Last administered on 12/29/16 10:17; Start 12/29/16 at 10:15; Stop 12/29/16 at 11:35; Status DC Ondansetron HCl (Zofran Inj) 4 mg ONCE ONCE IV PUSH Last administered on 12/29 10:41; Start 12/29/16 at 10:45; Stop 12/29/16 at 10:46; Status DC Ceftriaxone Sodium 1000 mg/ Sodium Chloride 100 ml @ 200 mls/hr ONCE ONCE IV Last administered on 12/29/16 11:54; Start 12/29/16 at 11:15; Stop 12/29/16 at 11:44; Status DC Azithromycin 500 mg/Sodium Chloride 250 ml @ 250 mls/hr ONCE ONCE IV Last administered on 12/29/16 12:31; Start 12/29/16 at 11:15; Stop 12/29/16 at 12 :14; Status DC Pantoprazole Sodium (Protonix Inj) 40 mg DAILY IV PUSH Last administered on 08:54; Start 12/29/16 at 12:00; Stop 12/31/16 at 14:05; Status DC Albuterol/ Ipratropium (Duoneb Neb) 1 ampule Q4HR NEB INH Last administered on 01/02/17 07:58; Start 12/29/16 at 12:00; Stop 01/02/17 at 11:59; Status DC Albuterol/ Ipratropium (Duoneb Neb) 1 ampule Q2HR NEB PRN INH WHEEZING Last administered on 01/04/17 10:14; Start 12/29/16 at 11:30; Stop 01/11/17 at 20: 29; Status DC Miscellaneous Information 1 [id number] Last administered on 12/29/16 21:22; Start 12/29/16 at 11:30; Stop 01/07/17 at 23:35; Status DC Chlorhexidine Gluconate (Chlorhexidine 2% Cloth) Taper DAILY@04 TOP Last administered on 01/01/17 04:00; Start 12/30/16 at 04:00; Stop 01/07/17 at 23: 35; Status DC Chlorhexidine Gluconate (Chlorhexidine 2% Cloth) 3 pack UNSCH PRN TOP HYGIENIC CARE; Start 12/29/16 at 11:30; Stop 01/07/17 at 23:35; Status DC Senna/Docusate Sodium (Elvie-Colace) 1 tab BID PO Last administered on 08:44; Start 12/29/16 at 21:00; Stop 01/11/17 at 20:29; Status DC Magnesium Hydroxide (Milk Of Magnesia Liq) 30 ml Q12H PRN PO Mild constipation Last administered on 01/09/17 20:33; Start 12/29/16 at 11:30; Stop 01/11/17 at 20:29; Status DC Sennosides (Senokot) 17.2 mg Q12H PRN PO Moderate constipation Last administered on 01/17/17 02:19; Start 12/29/16 at 11:30 Bisacodyl (Dulcolax Supp) 10 mg DAILY PRN RECTAL SEVERE CONSITIPATION; Start 12/29/16 at 11:30; Stop 01/17/17 at 14:59; Status DC Lactulose (Lactulose Liq) 30 ml DAILY PRN PO SEVERE CONSITIPATION; Start 12/29 at 11:30; Status Cancel Sodium Chloride 1,000 ml @ 84 mls/hr [id number] IV Last administered on 17:26; Start 12/29/16 at 11:30; Stop 12/30/16 at 08:37; Status DC Potassium Chloride 100 ml @ 50 mls/hr Q2H PRN IV For Potassium 2.8 - 3.2 mEq/L ; Start 12/29/16 at 11:30; Stop 12/31/16 at 14:05; Status DC Potassium Chloride 100 ml @ 50 mls/hr Q2H PRN IV For Potassium 2.8 - 3.2 mEq/L ; Start 12/29/16 at 11:30; Stop 12/31/16 at 14:05; Status DC Potassium Bicarb/ Potassium Chloride (K-Lyte Cl Eff) 50 meq UNSCH PRN PO For Potassium 3.3 - 3.5 mEq/L; Start 12/29/16 at 11:30; Stop 12/31/16 at 14:05; Status DC Potassium Chloride 100 ml @ 25 mls/hr UNSCH PRN IV For Potassium 3.3 - 3.5 mEq /L; Start 12/29/16 at 11:30; Stop 12/31/16 at 14:05; Status DC Potassium Chloride 100 ml @ 50 mls/hr Q2H PRN IV For Potassium 3.3 - 3.5 mEq/L ; Start 12/29/16 at 11:30; Stop 12/31/16 at 14:05; Status DC Magnesium Sulfate 4 gm/Sodium Chloride 100 ml @ 50 mls/hr UNSCH PRN IV For Magnesium 0.9 - 1.1 mg/dL; Start 12/29/16 at 11:30; Stop 12/31/16 at 14:05; Status DC Magnesium Oxide (Mag-Ox) 800 mg UNSCH PRN PO For Magnesium 1.2 - 1.6 mg/dL; Start 12/29/16 at 11:30; Stop 12/31/16 at 14:05; Status DC Magnesium Sulfate 2 gm/Sodium Chloride 100 ml @ 50 mls/hr UNSCH PRN IV For Magnesium 1.2 - 1.6 mg/dL; Start 12/29/16 at 11:30; Stop 12/31/16 at 14:05; Status DC Potassium Phosphate (K-Phos) 2,000 mg Q4H PRN PO For Phosphorus < 2.5 mg/dL; Start 12/29/16 at 11:30; Stop 12/31/16 at 14:05; Status DC Sodium Phosphate 30 mmol/Sodium Chloride 250 ml @ 42 mls/hr UNSCH PRN IV For Phosphorus < 2.5 mg/dL; Start 12/29/16 at 11:30; Stop 12/31/16 at 14:05; Status DC Potassium Phosphate (K-Phos) 2,000 mg UNSCH PRN PO/TUBE SEE LABEL COMMENTS; Start 12/29/16 at 11:30; Stop 12/31/16 at 14:05; Status DC Potassium Phosphate 30 mmol/ Sodium Chloride 260 ml @ 42 mls/hr UNSCH PRN IV SEE LABEL COMMENTS Last administered on 12/30/16t 11:46; Start 12/29/16 at 11: 30; Stop 12/31/16 at 14:05; Status DC Dextrose (D50w (Vial) Inj) 50 ml UNSCH PRN IV PUSH HYPOGLYCEMIA-SEE COMMENTS; Start 12/29/16 at 11:30; Stop 01/07/17 at 23:34; Status DC Glucagon (Glucagon Inj) 1 mg UNSCH PRN OTHER HYPOGLYCEMIA-SEE COMMENTS; Start 12/29/16 at 11:30; Stop 01/07/17 at 23:34; Status DC Insulin Human Regular (NovoLIN R SUPPLEMENTAL SCALE) 1 Q6H SQ Last administered on 01/01/17 17:30; Start 12/29/16 at 11:30; Stop 01/07/17 at 23: 34; Status DC Ceftriaxone Sodium 1000 mg/ Sodium Chloride 100 ml @ 200 mls/hr Q24H IV Last administered on 01/03/17 12:20; Start 12/30/16 at 12:00; Stop 01/04/17 at 11: 59; Status DC Azithromycin 500 mg/Sodium Chloride 250 ml @ 250 mls/hr Q24H IV Last administered on 12/31/16 11:48; Start 12/30/16 at 13:00; Stop 12/31/16 at 15 :20; Status DC Methylprednisolone Sodium Succinate (SoluMEDROL INJ) 60 mg Q6HR IV PUSH Last administered on 12/30/16 12:31; Start 12/29/16 at 16:00; Stop 12/30/16 at 13 :03; Status DC Lidocaine/ Epinephrine (Xylocaine-Epi 1%-1:100,000 Inj) 20 ml STK-MED ONCE .ROUTE Last administered on 12/29/16 12:38; Start 12/29/16 at 12:38; Stop 12/29/16 at 12:39; Status DC Fentanyl Citrate (fentaNYL INJ) 100 mcg STK-MED ONCE .ROUTE Last administered on 12/29/16 12:47; Start 12/29/16 at 12:47; Stop 12/29/16 at 12:48; Status DC Midazolam HCl (Versed Inj) 2 mg STK-MED ONCE .ROUTE Last administered on 12:47; Start 12/29/16 at 12:47; Stop 12/29/16 at 12:48; Status DC Iohexol (Omnipaque 350 Inj) 69 ml STK-MED ONCE IVCONTRAST Last administered on 12/29/16 13:33; Start 12/29/16 at 13:33; Stop 12/29/16 at 13:34; Status DC Ephedrine Sulfate (ePHEDrine/NS 25 MG/5 ML SYR) 25 mg STK-MED ONCE .ROUTE ; Start 12/29/16 at 13:40; Stop 12/29/16 at 13:41; Status DC Acetaminophen (Tylenol) 650 mg Q6H PRN PO PAIN Last administered on 12/30/16 04:13; Start 12/30/16 at 04:15; Stop 01/02/17 at 11:16; Status DC Oxycodone/ Acetaminophen (Percocet 5-325 Mg) 1 tab ONCE ONCE PO Last administered on 12/30/16 09:39; Start 12/30/16 at 09:30; Stop 12/30/16 at 09 :31; Status DC Methylprednisolone Sodium Succinate (SoluMEDROL INJ) 40 mg Q6HR IV PUSH Last administered on 01/01/17 05:12; Start 12/30/16 at 18:00; Stop 01/01/17 at 11 :40; Status DC Morphine Sulfate (Morphine Inj) 1 mg ONCE ONCE IV PUSH Last administered on 15:06; Start 12/30/16 at 15:00; Stop 12/30/16 at 15:01; Status DC Acetaminophen (Tylenol) 650 mg Q6H PRN PO PAIN 1-2; Start 12/30/16 at 22:30 Morphine Sulfate (Morphine Inj) 1 mg Q4H PRN IV PAIN 5-10 Last administered on 12/31/16 11:12; Start 12/30/16 at 22:30; Stop 12/31/16 at 13:46; Status DC Morphine Sulfate (Morphine Inj) 2 mg Q4H PRN IV BREAKTHROUGH PAIN 6-10 Last administered on 01/11/17 13:33; Start 12/31/16 at 14:30; Stop 01/11/17 at 19: 27; Status DC Acetaminophen/ Hydrocodone Bitart ([place] 5-325 Mg) 1 tab Q6H PRN PO PAIN 3-5 Last administered on 01/02/17 05:18; Start 12/31/16 at 13:45; Stop 01/09/17 at 09:01; Status DC Acetaminophen/ Hydrocodone Bitart ([place] 5-325 Mg) 2 tab Q6H PRN PO PAIN 6-10 Last administered on 01/09/17 08:39; Start 12/31/16 at 13:45; Stop 01/09/17 at 09:01; Status DC Pantoprazole Sodium (Protonix) 40 mg DAILY PO Last administered on 01/11/17 08 :41; Start 01/01/17 at 09:00; Stop 01/11/17 at 20:29; Status DC Iohexol (Omnipaque 350 Inj) 70 ml STK-MED ONCE IVCONTRAST Last administered on 12/31/16 14:59; Start 12/31/16 at 14:59; Stop 12/31/16 at 15:00; Status DC Azithromycin 500 mg/Sodium Chloride 250 ml @ 250 mls/hr Q24H IV Last administered on 01/04/17 11:57; Start 01/02/17 at 13:00; Stop 01/04/17 at 14: 46; Status DC Methylprednisolone Sodium Succinate (SoluMEDROL INJ) 40 mg Q12HR IV PUSH Last administered on 01/03/17 07:37; Start 01/01/17 at 21:00; Stop 01/03/17 at 13 :51; Status DC Methylprednisolone Sodium Succinate (SoluMEDROL INJ) 40 mg DAILY IV PUSH Last administered on 01/05/17 08:15; Start 01/04/17 at 09:00; Stop 01/05/17 at 18:19 ; Status DC Nifedipine (Procardia Xl) 60 mg ONCE ONCE PO Last administered on 01/05/17 17 :49; Start 01/05/17 at 17:30; Stop 01/05/17 at 17:32; Status DC Nifedipine (Procardia Xl) 30 mg DAILY PO Last administered on 01/17/17 08:32 ; Start 01/06/17 at 09:00; Status Future Hold Furosemide (Lasix) 20 mg DAILY PO Last administered on 01/15/17 09:21; Start 01/05/17 at 17:35; Status Future Hold Prednisone (Deltasone) 10 mg DAILY PO Last administered on 01/15/17 09:21; Start 01/08/17 at 09:00; Stop 01/17/17 at 14:59; Status DC Acetaminophen/ Hydrocodone Bitart ([place] 5-325 Mg) 1 tab Q4H PRN PO PAIN 3-5; Start 01/09/17 at 09:00; Stop 01/11/17 at 19:27; Status DC Acetaminophen/ Hydrocodone Bitart ([place] 5-325 Mg) 2 tab Q4H PRN PO PAIN 6-10 Last administered on 01/11/17 08:47; Start 01/09/17 at 09:15; Stop 01/11/17 at 19:27; Status DC Lactulose (Lactulose Liq) 30 ml ONCE ONCE PO ; Start 01/10/17 at 13:00; Stop 01/10/17 at 13:19; Status DC Lactulose (Lactulose Liq) 30 ml QID PRN PO severe constipation Last administered on 01/11/17 08:42; Start 01/10/17 at 13:00 Simethicone (Phazyme Chew) 125 mg ONCE ONCE PO Last administered on 01/10/17 14:59; Start 01/10/17 at 13:30; Stop 01/10/17 at 13:31; Status DC Sodium Chloride (NS Flush) 2 ml BID IV FLUSH Last administered on 01/11/17 09: 00; Start 01/10/17 at 21:00; Stop 01/11/17 at 20:29; Status DC Sodium Chloride (NS Flush) 2 ml UNSCH PRN IV FLUSH FLUSH AFTER USING IV ACCESS ; Start 01/10/17 at 16:15; Stop 01/11/17 at 20:29; Status DC Cefazolin Sodium 500 mg/Sodium Chloride 505 ml @ 0 mls/hr FIXING MACHINE OPERATOR IRRIGATION ; Start 01/10/17 at 16:15; Stop 01/17/17 at 14:59; Status DC Cefazolin Sodium/ Dextrose 50 ml @ 150 mls/hr FIXING MACHINE OPERATOR IV Last administered on 01/11/17 16:17; Start 01/10/17 at 16:15; Stop 01/17/17 at 14:59; Status DC Chlorhexidine Gluconate (Hibiclens 4% Top Soln) 1 applic FIXING MACHINE OPERATOR TOPICAL Last administered on 01/11/17 08:42; Start 01/10/17 at 16:15; Stop 01/12/17 at 08:40 ; Status DC Dextrose (D50w (Vial) Inj) 50 ml UNSCH PRN IV PUSH HYPOGLYCEMIA-SEE COMMENTS; Start 01/10/17 at 16:15 Lactated Ringer's 1,000 ml @ 30 mls/hr Q24H PRN IV SEE LABEL COMMENTS Last administered on 01/11/17 14:53; Start 01/10/17 at 18:30; Stop 01/11/17 at 20:23 ; Status DC Sodium Chloride 500 ml @ 30 mls/hr [id number] PRN IV SEE LABEL COMMENTS; Start at 18:30; Stop 01/11/17 at 20:23; Status DC Metoprolol Tartrate (Lopressor) 25 mg FIXING MACHINE OPERATOR PRN PO SEE LABEL COMMENTS; Start 01/10/17 at 18:30; Stop 01/11/17 at 20:23; Status DC Povidone Iodine (Betadine 5% Antisepsis Kit) 1 applic FIXING MACHINE OPERATOR PRN EACH NARE SEE LABEL COMMENTS; Start 01/10/17 at 18:30; Stop 01/11/17 at 20:23; Status DC Chlorhexidine Gluconate (Chlorhexidine 2% Cloth) 3 pack FIXING MACHINE OPERATOR PRN TOPICAL SEE LABEL COMMENTS; Start 01/10/17 at 18:30; Stop 01/12/17 at 08:40; Status DC Insulin Human Regular (NovoLIN R INJ) See Protocol Table ... FIXING MACHINE OPERATOR PRN SQ SEE PROTOCOL TABLE; Start 01/10/17 at 18:30; Stop 01/11/17 at 20:23; Status DC Albuterol/ Ipratropium (Duoneb Neb) 1 ampule Q6HR NEB NEB Last administered on 01/11/17 09:40; Start 01/10/17 at 22:00; Stop 01/11/17 at 20:29; Status DC Bupivacaine HCl (Marcaine Pf 0.5% Inj) 30 ml ONCE ONCE INFIL Last administered on 01/11/17 17:51; Start 01/11/17 at 17:51; Stop 01/11/17 at 17:53 ; Status DC Albuterol Sulfate (Albuterol Neb) 2.5 mg Q6HR NEB NEB Last administered on 07:08; Start 01/11/17 at 22:00; Stop 01/13/17 at 12:20; Status DC Albuterol Sulfate (Albuterol Neb) 2.5 mg Q2HR NEB PRN NEB WHEEZING Last administered on 01/20/17 10:12; Start 01/11/17 at 19:30 IV Flush (NS Flush) 2 ml BID IV FLUSH Last administered on 01/20/17 09:00; Start 01/11/17 at 21:00 IV Flush (NS Flush) 2 ml UNSCH PRN IV FLUSH FLUSH AFTER USING IV ACCESS; Start 01/11/17 at 19:30 Miscellaneous Information (Post-op Orders (for Pharmacy)) STAT ONCE OTHER ; Start 01/11/17 at 19:30; Stop 01/11/17 at 20:27; Status DC Pantoprazole Sodium (Protonix) 40 mg HS PO Last administered on 01/19/17 21: 57; Start 01/11/17 at 21:00 Ondansetron HCl (Zofran Inj) 4 mg Q6H PRN IV PUSH NAUSEA OR VOMITING Last administered on 01/15/17 05:58; Start 01/11/17 at 19:30 Docusate Calcium (Surfak) 240 mg HS PO Last administered on 01/11/17 23:35; Start 01/11/17 at 21:00; Stop 01/12/17 at 08:40; Status DC Magnesium Hydroxide (Milk Of Magnesia Liq) 30 ml DAILY PRN PO MILD CONSTIPATION ; Start 01/11/17 at 19:30 Acetaminophen 100 ml @ 400 mls/hr Q6H IV Last administered on 01/12/17 19:24 ; Start 01/11/17 at 21:00; Stop 01/12/17 at 15:14; Status DC Naloxone HCl (Narcan Inj) 0.4 mg UNSCH PRN IV PUSH RESPIRATORY RATE LESS THAN 10; Start 01/11/17 at 19:30; Stop 01/16/17 at 18:00; Status DC Morphine Sulfate (Morphine 1 Mg/ ml VIDEO TAPE DUPLICATOR) 30 mg UNSCH IV Last administered on 09:29; Start 01/11/17 at 19:30; Stop 01/16/17 at 18:00; Status DC VIDEO TAPE DUPLICATOR Dosage Infused (Pha) 1 Q8HR .XX Last administered on 01/15/17 06:00; Start 01/11/17 at 22:00; Stop 01/16/17 at 18:00; Status DC Morphine Sulfate (*morphine INJ PERIprocedure ONLY) 8 mg STK-MED ONCE .ROUTE Last administered on 01/11/17 20:10; Start 01/11/17 at 20:08; Stop 01/12/17 at 08:40; Status DC Morphine Sulfate (*morphine INJ PERIprocedure ONLY) 8 mg STK-MED ONCE .ROUTE Last administered on 01/11/17 20:30; Start 01/11/17 at 20:22; Stop 01/12/17 at 08:40; Status DC Meperidine HCl (*DEMEROL INJ PERIprocedural ONLY) 25 mg STK-MED ONCE .ROUTE Last administered on 01/11/17 20:23; Start 01/11/17 at 20:22; Stop 01/12/17 at 08:40; Status DC Morphine Sulfate (Morphine 1 Mg/ ml VIDEO TAPE DUPLICATOR) 30 mg STK-MED ONCE .ROUTE ; Start 01/11 at 20:25; Stop 01/11/17 at 20:26; Status DC Sodium Chloride 1,000 ml @ 30 mls/hr Q24H IV Last administered on 01/14/17 21:00; Start 01/11/17 at 21:00 Miscellaneous Information ALL NURSING DEPARTME... UNSCH PRN .XX SEE LABEL COMMENTS; Start 01/11/17 at 19:55; Stop 01/12/17 at 19:54; Status DC Polyethylene Glycol (Miralax) 17 gm DAILY PO Last administered on 01/20/17 09 :16; Start 01/12/17 at 09:00 Potassium Chloride (KCl) 30 meq ONCE ONCE PO Last administered on 01/12/17 10 :07; Start 01/12/17 at 08:45; Stop 01/12/17 at 08:46; Status DC Potassium Chloride (KCl) 10 meq DAILY PO Last administered on 01/18/17 09:00 ; Start 01/12/17 at 09:00; Stop 01/19/17 at 08:51; Status DC Cefazolin Sodium 1000 mg/Sodium Chloride 100 ml @ 200 mls/hr Q8H IV ; Start at 15:45; Stop 01/12/17 at 15:45; Status DC Cefazolin Sodium 1000 mg/Sodium Chloride 100 ml @ 200 mls/hr Q8H IV Last administered on 01/13/17 08:04; Start 01/12/17 at 16:00; Stop 01/13/17 at 08: 19; Status DC Ceftriaxone Sodium 1000 mg/ Sodium Chloride 100 ml @ 200 mls/hr Q24H IV Last administered on 01/19/17 00:26; Start 01/12/17 at 23:00; Stop 01/19/17 at 18: 02; Status DC Furosemide (Lasix Inj) 20 mg ONCE ONCE IV PUSH Last administered on 13:08; Start 01/13/17 at 14:00; Stop 01/13/17 at 14:01; Status DC Potassium Chloride (KCl) 20 meq ONCE ONCE PO Last administered on 01/13/17 13:07; Start 01/13/17 at 14:00; Stop 01/13/17 at 14:01; Status DC Albuterol Sulfate (Albuterol Neb) 2.5 mg Q6HR WHILE AWAKE NEB INH Last administered on 01/15/17 09:42; Start 01/13/17 at 14:00; Stop 01/15/17 at 10 :45; Status DC Furosemide (Lasix Inj) 20 mg ONCE ONCE IV PUSH Last administered on 18:49; Start 01/13/17 at 17:00; Stop 01/13/17 at 17:01; Status DC Potassium Chloride 100 ml @ 50 mls/hr Q2H IV Last administered on 01/14/17 11:26; Start 01/14/17 at 08:00; Stop 01/14/17 at 11:59; Status DC Etomidate (Amidate Inj) 40 mg STK-MED ONCE .ROUTE Last administered on 10:58; Start 01/15/17 at 10:08; Stop 01/15/17 at 10:09; Status DC Midazolam HCl (Versed Inj) 5 mg STK-MED ONCE .ROUTE Last administered on 10:57; Start 01/15/17 at 10:09; Stop 01/15/17 at 10:10; Status DC Albuterol Sulfate (Albuterol Neb) 2.5 mg Q4HR NEB PRN NEB DYSPNEA; Start 01/15 at 10:30; Stop 01/20/17 at 12:30; Status DC Propofol 50 ml @ As Directed STK-MED ONCE .ROUTE Last administered on 10:59; Start 01/15/17 at 10:18; Stop 01/15/17 at 10:19; Status DC Chlorhexidine Gluconate (Peridex 0.12% Liq) 15 ml BID@08,20 MT Last administered on 01/15/17 21:32; Start 01/15/17 at 20:00 Propofol 100 ml @ 2.034 mls/ hr TITRATE PRN IV SEDATION Last administered on 01/16/17 05:49; Start 01/15/17 at 10:30; Stop 01/16/17 at 18:00; Status DC Fentanyl Citrate 250 ml @ 5 mls/hr TITRATE PRN IV SEDATION Last administered on 01/15/17 18:25; Start 01/15/17 at 10:30; Stop 01/16/17 at 18:00; Status DC Albuterol/ Ipratropium (Duoneb Neb) 1 ampule Q4HR NEB NEB Last administered on 01/18/17 07:22; Start 01/15/17 at 12:00; Stop 01/18/17 at 10:28; Status DC Methylprednisolone Sodium Succinate (SoluMEDROL INJ) 60 mg Q12H IV PUSH ; Start 01/15/17 at 12:00; Stop 01/15/17 at 12:00; Status DC Methylprednisolone Sodium Succinate (SoluMEDROL INJ) 60 mg Q8H IV PUSH Last administered on 01/18/17 11:01; Start 01/15/17 at 12:00; Stop 01/18/17 at 12 :11; Status DC Enoxaparin Sodium (Lovenox Inj) 40 mg Q24H SQ Last administered on 01/15/17 12:54; Start 01/15/17 at 12:00; Status Future Hold Ferrous Sulfate (Ferrous Sulfate Liq) 300 mg BID PO Last administered on 09:05; Start 01/15/17 at 14:30; Stop 01/16/17 at 17:41; Status DC Acetylcysteine (Mucomyst 20% Neb) 2 ml Q6HR NEB NEB ; Start 01/15/17 at 16:00 ; Stop 01/15/17 at 17:41; Status DC Non-Formulary Medication 2 ML NEB EVERY 6 HOURS Q6HR NEB NEB Last administered on 01/17/17 04:25; Start 01/15/17 at 18:00; Stop 01/18/17 at 10 :41; Status DC Potassium Bicarb/ Potassium Chloride (K-Lyte Cl Eff) 25 meq ONCE ONCE PO Last administered on 01/16/17 07:26; Start 01/16/17 at 06:45; Stop 01/16/17 at 06:51; Status DC Lactulose (Lactulose Liq) 30 ml DAILY NG Last administered on 01/20/17 09:16 ; Start 01/16/17 at 09:00 Docusate Sodium (Colace) 100 mg BID PO Last administered on 01/20/17 09:16; Start 01/16/17 at 09:00 Magnesium Sulfate/ Dextrose 100 ml @ 100 mls/hr ONCE ONCE IV Last administered on 01/16/17 08:57; Start 01/16/17 at 08:45; Stop 01/16/17 at 09 :44; Status DC Sodium Chloride 250 ml @ 0 mls/hr BOLUS ONCE IV Last administered on 10:30; Start 01/16/17 at 10:30; Stop 01/16/17 at 10:31; Status DC Sodium Chloride 500 ml @ 500 mls/hr BOLUS ONCE IV Last administered on 13:11; Start 01/16/17 at 13:15; Stop 01/16/17 at 14:14; Status DC Sodium Chloride 500 ml @ 500 mls/hr Q1H ONCE IV Last administered on 17:36; Start 01/16/17 at 17:30; Stop 01/16/17 at 18:29; Status DC Ferrous Sulfate (Ferrous Sulfate) 325 mg BID PO Last administered on 09:16; Start 01/16/17 at 21:00 Oxycodone/ Acetaminophen (Percocet 7.5-325 Mg) 1 tab Q6H PRN PO pain 5-10 Last administered on 01/20/17 11:41; Start 01/16/17 at 18:15 Albumin Human 500 ml @ 250 mls/hr ONCE ONCE IV Last administered on 04:26; Start 01/17/17 at 03:45; Stop 01/17/17 at 05:44; Status DC Furosemide (Lasix Inj) 40 mg STK-MED ONCE .ROUTE Last administered on 09:04; Start 01/17/17 at 09:04; Stop 01/17/17 at 14:59; Status DC Potassium Bicarb/ Potassium Chloride (K-Lyte Cl Eff) 25 meq ONCE ONCE PO Last administered on 01/18/17 09:00; Start 01/18/17 at 09:00; Stop 01/18/17 at 09:01; Status DC Potassium Chloride (KCl) 30 meq ONCE ONCE PO ; Start 01/18/17 at 11:00; Stop 01/18/17 at 11:00; Status DC Potassium Phos/ Sodium Phos (K-Phos Neutral) 250 mg Q8HR PO Last administered on 01/20/17 05:12; Start 01/18/17 at 08:30 Bisacodyl (Dulcolax Supp) 10 mg ONCE ONCE RECTAL Last administered on 11:01; Start 01/18/17 at 10:00; Stop 01/18/17 at 10:20; Status DC Sodium Biphosphate/ Sodium Phosphate (Fleets Enema (Adult)) 133 ml ONCE ONCE [place] ; Start 01/18/17 at 10:00; Stop 01/18/17 at 10:20; Status DC Potassium Bicarb/ Potassium Chloride (K-Lyte Cl Eff) 25 meq ONCE ONCE PO Last administered on 01/18/17 11:01; Start 01/18/17 at 10:00; Stop 01/18/17 at 10:20; Status DC Lidocaine HCl (Xylocaine-Mpf 1% Inj) 50 ml STK-MED ONCE OTHER ; Start 01/11/17 at 12:00; Stop 01/18/17 at 10:58; Status DC Rocuronium Sibley (Zemuron Inj) 50 mg STK-MED ONCE IV PUSH ; Start 01/11/17 at 12:00; Stop 01/18/17 at 10:58; Status DC Neostigmine Methylsulfate (Prostigmin Inj) 3 mg STK-MED ONCE IV ; Start at 12:00; Stop 01/18/17 at 10:58; Status DC Glycopyrrolate (Robinul Inj) 1 mg STK-MED ONCE IV PUSH ; Start 01/11/17 at 12:00 ; Stop 01/18/17 at 10:58; Status DC Phenylephrine HCl (Neosynephrine/ NS 1000 Mcg/10ml Syr) 1,000 mcg STK-MED ONCE IV ; Start 01/11/17 at 12:00; Stop 01/18/17 at 10:58; Status DC Ondansetron HCl (Zofran Inj) 4 mg STK-MED ONCE IV PUSH ; Start 01/11/17 at 12:00 ; Stop 01/18/17 at 10:58; Status DC Fentanyl Citrate (fentaNYL INJ) 200 mcg STK-MED ONCE IV ; Start 01/11/17 at 12: 00; Stop 01/18/17 at 10:58; Status DC Morphine Sulfate (Morphine Inj) 4 mg STK-MED ONCE IV ; Start 01/11/17 at 12:00; Stop 01/18/17 at 10:58; Status DC Propofol (Diprivan 200 Mg/20 ml Inj) 200 mg STK-MED ONCE IV ; Start 01/11/17 at 12:00; Stop 01/18/17 at 10:58; Status DC Parenteral Electrolytes 1,000 ml @ As Directed STK-MED ONCE IV ; Start at 12:00; Stop 01/18/17 at 10:58; Status DC Lactated Ringer's 1,000 ml @ As Directed STK-MED ONCE IV ; Start 01/11/17 at 12 :00; Stop 01/18/17 at 10:58; Status DC Methylprednisolone Sodium Succinate (SoluMEDROL INJ) 40 mg BID IV PUSH Last administered on 01/19/17 09:29; Start 01/18/17 at 21:00; Stop 01/19/17 at 18 :02; Status DC Bethanechol Chloride (Urecholine) 25 mg Q8H PO Last administered on 01/20/17 11:41; Start 01/18/17 at 20:00 Furosemide (Lasix Inj) 40 mg DAILY IV PUSH Last administered on 01/20/17 09: 15; Start 01/19/17 at 09:00 Potassium Chloride (KCl) 30 meq DAILY PO Last administered on 01/20/17 09:16 ; Start 01/19/17 at 09:00 Tamsulosin HCl (Flomax) 0.4 mg DAILY PO Last administered on 01/20/17 09:16; Start 01/19/17 at 11:00 Prednisone (Deltasone) 10 mg BID PO Last administered on 01/20/17 09:16; Start 01/19/17 at 21:00 Magnesium Sulfate/ Dextrose 100 ml @ 100 mls/hr Q1H IV Last administered on 20:26; Start 01/19/17 at 19:00; Stop 01/19/17 at 20:59; Status DC Tiotropium Sibley (Spiriva Inh) 18 mcg DAILY INH ; Start 01/21/17 at 09:00 Urinary Catheter: Yes Assessment to: Continue Willard insert reason: Obstruction/Retention A/P Problem List: (1) Pleural effusion on left ICD Code: J90 - Pleural effusion, not elsewhere classified Status: Acute (2) Respiratory distress ICD Code: R06.00 - Dyspnea, unspecified Status: Resolved (3) Hyponatremia ICD Code: E87.1 - Hypo-osmolality and hyponatremia Status: Acute (4) COPD (chronic obstructive pulmonary disease) ICD Code: J44.9 - Chronic obstructive pulmonary disease, unspecified Status: Chronic (5) Tobacco abuse ICD Code: Z72.0 - Tobacco use Status: Chronic Assessment and Plan ASSESSMENT Acute hypoxemic respiratory failure Complete left lung atelectasis Left-sided consolidation with pleural effusion Left thoracotomy with decortication, evacuation of complex loculated effusion, adhesiolysis Pulmonary hypertension COPD exacerbation Hyponatremia/hypophosphatemia Hypokalemia. Urinary tract infection on abx PLAN: Neuro: Hold propofol and reduce fentanyl to facilitate weaning trials Pain control with fentanyl--off all sedation at this time ORAL PAIN CONTROL Pulm: Acute hypoxemic respiratory failure Complete L lung atelectasis S/p decortication for L hemothorax COPD Tobacco abuse ?L lung mass vs loculated effusion/ Emergently intubated and placed on mechanical ventilation 01/15 s/p Bronchoscopy by Dr. Chung. Left lung valera reexpanded, persistent volume loss involving left lower lung field Start weaning trials with possible extubation--extubated January 16 Status post left thoracotomy and decortication 01/11/17-postop diagnosis was hemothorax Bronchodilators, Solumedrol 60 mg IV q8 hours s/p CT guided left-sided thoracentesis and CT placement by IR 12/29/16 CT chest: Either highly complex fluid or soft tissue mass involving the left lung base with mass effect. This measures 12.2 x 12.6 x 7.4 cm. 4.4 cm ascending aortic aneurysm. --Status post bronchoscopy with left sided bronchial alveolar lavage by pulmonary on January 16 CHEST TUBE REMOVED LOTS OF DRAINAGE FROM CHEST TUBE SITE CV: Pulmonary hypertension, most likely secondary from chronic hypoxia by echo Moderate aortic stenosis mild to moderate aortic regurgitation Monitor HR and BP and maintain MAP>65mmHg Echo 12/30 - systolic function grossly normal. Moderate /AI. Moderate to severe pulmonary hypertension.. GI: Nothing by mouth-has been extubated Diet as tolerated : Hyponatremia ?chronic but chronicity not truly known Hypokalemia, resolved- STILL LOW WILL REPLACE ID: UTI Possible pneumonia Continue Rocephin for now UTI present on admission with culture positive for pansensitive Klebsiella. Influenza screen, blood and pleural fluid cultures negative to date. Temporal fluid studies from January 11, on cultures negative to date URINARY RETENTION- STARTED ON BETHANECHOL YESTERDAY - WILL ADD FLOMAX CONTINUE WILLARD Endo: SSI with Accu-Cheks for glycemic control. Heme: Macrocytic anemia Anemia of chronic disease and iron deficiency Monitor CBC. Normal B12, Supplement iron due to her lab findings consistent with iron deficiency Being transfused 1 unit packed red blood cells today DVT prophylaxis with SCDs. Lovenox 40 mg sq daily. IV Famotidine 20 mg IV q12h NOT BEING TRANSFUSED TODAY Needs physical therapy and occupational therapy aggressively NEEDS TO GET MOBILE AM LABS Discharge Planning Needs to be more mobile May require MARISCAL IF ABLE TO GET APPROVAL Problem Qualifiers (1) COPD (chronic obstructive pulmonary disease): Qualified Codes: J43.1 - Panlobular emphysema Raf Soria DO Jan 20, 2017 13:13
--- NOTE | 2017-01-20 17:59 | PD.ONC.PN ---
Subjective Subjective Remarks Complaining of fluid drainage at the previous chest tube sites Patient is ready to start physical therapy Objective Data Date Time Temp Pulse Resp B/P (MAP) Pulse Ox O2 Delivery O2 Flow Rate FiO2 01/20/17 17:00 93 01/20/17 16:00 99 01/20/17 15:42 97 Room Air 01/20/17 15:42 97.5 90 25 146/74 (98) 97 01/20/17 15:00 93 01/20/17 14:00 88 01/20/17 13:00 96 01/20/17 12:00 86 01/20/17 11:43 98 Room Air 01/20/17 11:43 97.8 98 21 130/75 (93) 98 01/20/17 11:00 85 01/20/17 10:00 101 01/20/17 09:00 93 01/20/17 08:00 85 01/20/17 07:23 97.7 87 27 123/64 (83) 98 01/20/17 07:23 98 Room Air 01/20/17 07:00 84 01/20/17 06:02 91 01/20/17 05:02 92 01/20/17 04:00 84 01/20/17 03:31 Room Air 01/20/17 03:29 97.5 86 16 127/73 (91) 97 01/20/17 03:00 88 01/20/17 02:12 83 01/20/17 01:00 94 01/20/17 00:00 90 01/19/17 23:40 98 Room Air 01/19/17 23:40 97.6 95 20 126/65 (85) 98 01/19/17 23:00 93 01/19/17 22:00 94 01/19/17 21:00 90 01/19/17 20:00 88 01/19/17 19:45 97.9 88 16 118/71 (87) 100 01/19/17 19:45 100 Room Air 01/19/17 19:00 88 01/19/17 18:00 90 01/20/17 01/20/17 01/20/17 07:00 15:00 23:00 Intake Total 480 ml 840 ml Output Total 300 ml 2000 ml Balance 180 ml -1160 ml Result Diagram: 01/20/17 0414 01/20/17 0414 Laboratory Results Laboratory Tests Test 01/20/17 04:14 White Blood Count 3.1 TH/MM3 Red Blood Count 2.73 MIL/MM3 Hemoglobin 9.6 GM/DL Hematocrit 28.2 % Mean Corpuscular Volume 103.4 FL Mean Corpuscular Hemoglobin 35.3 PG Mean Corpuscular Hemoglobin Concent 34.1 % Red Cell Distribution Width 21.1 % Platelet Count 66 TH/MM3 Mean Platelet Volume 10.5 FL Neutrophils (%) (Auto) 75.8 % Lymphocytes (%) (Auto) 15.1 % Monocytes (%) (Auto) 8.9 % Eosinophils (%) (Auto) 0.1 % Basophils (%) (Auto) 0.1 % Neutrophils # (Auto) 2.3 TH/MM3 Lymphocytes # (Auto) 0.5 TH/MM3 Monocytes # (Auto) 0.3 TH/MM3 Eosinophils # (Auto) 0.0 TH/MM3 Basophils # (Auto) 0.0 TH/MM3 CBC Comment AUTO DIFF Differential Comment AUTO DIFF CONFIRMED Platelet Estimate LOW Platelet Morphology Comment NORMAL Blood Urea Nitrogen 11 MG/DL Creatinine 0.45 MG/DL Random Glucose 94 MG/DL Total Protein 4.9 GM/DL Albumin 2.4 GM/DL Calcium Level 7.9 MG/DL Phosphorus Level 2.6 MG/DL Magnesium Level 2.5 MG/DL Alkaline Phosphatase 178 U/L Aspartate Amino Transf (AST/SGOT) 50 U/L Alanine Aminotransferase (ALT/SGPT) 49 U/L Total Bilirubin 0.9 MG/DL Sodium Level 138 MEQ/L Potassium Level 3.5 MEQ/L Chloride Level 101 MEQ/L Carbon Dioxide Level 28.6 MEQ/L Anion Gap 8 MEQ/L Estimat Glomerular Filtration Rate 144 ML/MIN Administered Medications Medications (Trade) Dose Ordered Sig/Armin Route PRN Reason Start Time Stop Time Status Last Admin Dose Admin Sennosides (Senokot) 17.2 mg Q12H PRN PO Moderate constipation 12/29/16 11:30 01/17/17 02:19 Nifedipine (Procardia Xl) 30 mg DAILY PO 01/06/17 09:00 Future Hold 01/17/17 08:32 Furosemide (Lasix) 20 mg DAILY PO 01/05/17 17:35 Future Hold 01/15/17 09:21 Lactulose (Lactulose Liq) 30 ml QID PRN PO severe constipation 01/10/17 13:00 01/11/17 08:42 Albuterol Sulfate (Albuterol Neb) 2.5 mg Q2HR NEB PRN NEB WHEEZING 01/11/17 19:30 01/20/17 17:03 IV Flush (NS Flush) 2 ml BID IV FLUSH 01/11/17 21:00 01/20/17 09:00 Pantoprazole Sodium (Protonix) 40 mg HS PO 01/11/17 21:00 01/19/17 21:57 Ondansetron HCl (Zofran Inj) 4 mg Q6H PRN IV PUSH NAUSEA OR VOMITING 01/11/17 19:30 01/15/17 05:58 Sodium Chloride 1,000 ml @ 30 mls/hr Q24H IV 01/11/17 21:00 01/14/17 21:00 Polyethylene Glycol (Miralax) 17 gm DAILY PO 01/12/17 09:00 01/20/17 09:16 Chlorhexidine Gluconate (Peridex 0.12% Liq) 15 ml BID@08,20 MT 01/15/17 20:00 01/15/17 21:32 Enoxaparin Sodium (Lovenox Inj) 40 mg Q24H SQ 01/15/17 12:00 Future Hold 01/15/17 12:54 Lactulose (Lactulose Liq) 30 ml DAILY NG 01/16/17 09:00 01/20/17 09:16 Docusate Sodium (Colace) 100 mg BID PO 01/16/17 09:00 01/20/17 09:16 Ferrous Sulfate (Ferrous Sulfate) 325 mg BID PO 01/16/17 21:00 01/20/17 09:16 Oxycodone/ Acetaminophen (Percocet 7.5-325 Mg) 1 tab Q6H PRN PO pain 5-10 01/16/17 18:15 01/20/17 17:30 Potassium Phos/ Sodium Phos (K-Phos Neutral) 250 mg Q8HR PO 01/18/17 08:30 01/20/17 14:55 Bethanechol Chloride (Urecholine) 25 mg Q8H PO 01/18/17 20:00 01/20/17 11:41 Furosemide (Lasix Inj) 40 mg DAILY IV PUSH 01/19/17 09:00 01/20/17 09:15 Potassium Chloride (KCl) 30 meq DAILY PO 01/19/17 09:00 01/20/17 09:16 Tamsulosin HCl (Flomax) 0.4 mg DAILY PO 01/19/17 11:00 01/20/17 09:16 Prednisone (Deltasone) 10 mg BID PO 01/19/17 21:00 01/20/17 09:16 Objective Remarks GENERAL: Well-nourished, well-developed patient. SKIN: Warm and dry. HEAD: Normocephalic. EYES: No scleral icterus. No injection or drainage. NECK: Supple, trachea midline. No JVD or lymphadenopathy. LYMPHATIC: No adenopathy. CARDIOVASCULAR: Regular rate and rhythm without murmurs. RESPIRATORY: Breath sounds equal bilaterally. No accessory muscle use. GASTROINTESTINAL: Abdomen soft, non-tender, nondistended. EXTREMITIES: No cyanosis, or edema. MUSCULOSKELETAL: Adequate muscle tone. NEUROLOGICAL: No obvious focal deficit. Awake, alert, and oriented x3. PSYCHIATRIC: Appropriate mood and affect; insight and judgment normal. Assessment/Plan Problem List: (1) Pancytopenia ICD Codes: D61.818 - Other pancytopenia Plan: 01/20 Pancytopenia with macrocytosis persist. Blood counts Are stable Monitor CBC 01/19: Patient continues to decline bone marrow biopsy. Pancytopenia improved today. Monitor CBC --Pancytopenia with macrocytosis and normal B12. --suspect that she has myelodysplastic syndrome until proven otherwise. --will need bone marrow biopsy and aspirate. (declining at this time) --iron studies are consistent with anemia of chronic disease --blood transfusion if the hemoglobin is less than 8 and platelet transfusion if the platelet count is less than 15 or any bleeding . Assessment 56y/o female with pancytopenia with macrocytosis. h/o COPD Emil Soler MD Jan 20, 2017 17:59
[2017-01-20] MEDS: SODIUM CHLOR 0.9% 1000 ML INJ 1,000 ML IV SCH (20:52)
[2017-01-20] MEDS: PANTOPRAZOLE SOD 40 MG DELAYED RELEASE TAB PO SCH (21:31)
[2017-01-21] VITALS (32 sets, daily range): BP systolic 128–149; BP diastolic 70–87; PULSE 82–129; RESP 20–33; TEMP 97.5–97.8; O2SAT 93–100
[2017-01-21] MEDS: BETHANECHOL CHL 25 MG TAB PO SCH ×3 (04:15→21:30)
[2017-01-21 04:40] LABS: BLOOD, URINE SMALL (NEG); GLUCOSE,URINE NEG (NEG); KETONE, URINE NEG (NEG); NITRITE,URINE NEG (NEG); URINE COLOR YELLOW (YELLW/STRAW)
[2017-01-21 04:46] LABS: BACTERIA, URINE RARE /hpf; SQUAMOUS EPITHELIAL CELL URINE 0-5 /hpf (0-5); WBC, URINE 0-2 /hpf (0-5)
[2017-01-21 04:47] LABS: COMMENT (UR) CATH-CULTURE IND; CULTURE IF INDICATED CATH CULTURE IND
[2017-01-21] MEDS: POTASSIUM PHOSPHATE/SODIUM PHOSPHATE 250 MG TAB PO SCH ×3 (05:34→21:32)
[2017-01-21] MEDS: oxyCODONE/ACETAMINOPHEN 7.5 MG/325 MG TAB PO PRN ×2 (05:36→11:41)
[2017-01-21] MEDS: RESP: ALBUTEROL 2.5 MG/3 ML NEB (PRN) NEB ×4 (05:47→20:55)
[2017-01-21 05:58] LABS: AUTOMATED NEUTROPHIL # 3.7 TH/MM3 (1.8-7.7); EOSINOPHIL % 0.1 % (0.0-4.0); HEMATOCRIT 27.4 % (35.0-46.0); LYMPHOCYTE # 0.6 TH/MM3 (1.0-4.8); MEAN CELL VOLUME 102.1 FL (80.0-100.0); MEAN CORPUSCULAR HEMOGLOBIN 35.3 PG (27.0-34.0); MEAN CORPUSCULAR HGB CONC 34.5 % (32.0-36.0); MONO % 8.7 % (0.0-8.0); NEUT % 78.2 % (16.0-70.0); PLATELET COUNT 67 TH/MM3 (150-450); RED BLOOD COUNT 2.68 MIL/MM3 (4.00-5.30); RED CELL DISTRIBUTION WIDTH 21.3 % (11.6-17.2); WHITE BLOOD COUNT 4.7 TH/MM3 (4.0-11.0)
[2017-01-21 06:06] LABS: HEMO FLAGS AUTO DIFF
[2017-01-21 06:21] LABS: ALKALINE PHOSPHATASE 182 U/L (45-117); TOTAL BILIRUBIN ADULT 0.8 MG/DL (0.2-1.0)
[2017-01-21 06:55] LABS: ALT (GPT) 49 U/L (10-53); ANION GAP 7 MEQ/L (5-15); AST (GOT) 31 U/L (15-37); BICARBONATE 31.2 MEQ/L (21.0-32.0); BLOOD UREA NITROGEN 10 MG/DL (7-18); CHLORIDE 100 MEQ/L (98-107); GLOMERULAR FILTRATION RATE 199 ML/MIN (>89); MAGNESIUM 2.1 MG/DL (1.5-2.5); POTASSIUM 3.7 MEQ/L (3.5-5.1); SODIUM (NA) 138 MEQ/L (136-145)
[2017-01-21 07:36] LABS: PLATELET ESTIMATE SMEAR LOW (NORMAL); PLATELET MORPHOLOGY NORMAL (NORMAL); SCAN/DIFF AUTO DIFF CONFIRMED
[2017-01-21] MEDS: CHLORHEXIDINE 0.12% (ORAL KIT) 15 ML CUP MT SCH ×2 (08:00→20:00)
[2017-01-21] MEDS: SODIUM CHLORIDE 0.9% FLUSH 5 ML FLUSH IV FLUSH SCH ×2 (09:00→21:00)
[2017-01-21] MEDS: POLYETHYLENE GLYCOL 17 GM PKG PO SCH (09:00)
[2017-01-21] MEDS: LACTULOSE SYRUP 20 GM/30 ML CUP NG SCH (09:00)
[2017-01-21] MEDS: DOCUSATE SODIUM 100 MG CAP PO SCH ×2 (09:00→21:00)
[2017-01-21] MEDS: POTASSIUM CHLORIDE 10 MEQ CONTROLLED RELEASE TAB PO SCH (09:48)
[2017-01-21] MEDS: TIOTROPIUM BROMIDE 18 MCG INH INH SCH (09:48)
[2017-01-21] MEDS: FUROSEMIDE 40 MG/4 ML VIAL IV PUSH SCH (09:49)
[2017-01-21] MEDS: TAMSULOSIN HCL 0.4 MG CAP PO SCH (09:49)
[2017-01-21] MEDS: predniSONE 10 MG TAB PO SCH ×2 (09:50→21:29)
[2017-01-21] MEDS: FERROUS SULFATE 325 MG (65 MG ELEMENTAL IRON) TAB PO SCH ×2 (09:50→21:29)
--- NOTE | 2017-01-21 14:22 | HHI.PR ---
Subjective Remarks The patient is a 56-year-old female with past medical history of COPD, who presented to [facility] ED with complaints of coughing, wheezing. The patient states that she had food poisoning last week where she had nausea and diarrhea, after she ate suspicious food. She denies any worsening of dyspnea from baseline. In addition, she denies any constitutional symptoms. She quit smoking five and a half years ago and used to smoke one to two packs per day for about 30 years. Chest x-ray in the ER showed consolidation with large effusion and volume loss on the left. On further history she denies any hemoptysis, however, she reports 20 pounds weight loss in the last 4 months and decreased p.o. intake. She is being followed up by Dr. Chung her outpatient hide curer. The patient denies any use of oxygen at home, however, she is on bronchodilators p.r.n. Her laboratory data is significant for hyponatremia with sodium level 125, lactic acid level 2.1. On arrival to the ER she was tachycardic and tachypneic. When seen the patient is on 4 liters nasal cannula with saturation ranges between 95-100%. In the ER she was given Rocephin, azithromycin, Solu-Medrol, bronchodilator treatment and IV fluids. Her current blood pressure is 107/61. 12/30 Patient s/p CT guided thoracentesis and CT placement by IR yesterday. She is feeling better. Subjective: 12/31 She complains of pain and requests increased pain meds. Repeat imaging ordered per pulmonology to evaluate mass vs loculated effusion. On NC. [facility] RECONSULT NOTE 01/15/17 Critical care consulted for severe hypoxemic respiratory failure. On 01/11/17 patient had left thoracotomy for decortication, evacuation of complex loculated effusion, adhesiolysis by Dr. Gamboa. CXR 01/14/17 showed near complete whiteout of the left lung-pulmonary Dr. Ridley is following. Today a HALICAT was called as the patient was found profoundly hypoxemic in the 70s oxygen saturation. She was placed on 100% percent nonrebreather with improvement in saturation only to 81%. Stat ABG on 100% nonrebreather showed pH of 7.29 PCO2 of 62 pO2 of 53 and oxygen saturation 79%. Stat chest x-ray showed complete whiteout of the left lung. I discussed with the patient briefly, she is agreeable for intubation. I proceeded with endotracheal intubation and placed on mechanical ventilation -patient saturation gradually improved to 100%. Discussed with pulmonology Dr. Ridley. He plans to do bronchoscopy today afternoon. SUBJ 01/16: Patient had bronchoscopy by Dr. Ridley yesterday. Chest x-ray today shows improvement in aeration but still with volume loss left lower lung valera which is unchanged from the post thoracotomy chest x-rays. Wide-awake on vent tolerating CPAP will proceed with weaning trials 01-17 TRANSFERRED BACK TO OUR SERVICE EXTUBATED YESTERDAY GETTING BLOOD 1 UNIT PRBC TODAY PT AND OT DW RN AND PT LESS SOB THAN YESTERDAY 01-18 REFUSING BONE MARROW BIOPSY NO BLOOD TRANSFUSION TODAY NEED PT AND OT BECOMING MOBILE HAD CHEST TUBES OUT AM LABS HAD BM DW RN AND PT 01-19 still having urinary retention WILL NEED WILLARD CATHETER SINCE NOT URINATING ON HER OWN IF NOT URINATING AFTER LASIX DW RN AND PT LOTS OF DRAINAGE FROM LEFT CHEST WOUND AREA NO SOB HAD GOOD BM TODAY DW RN AND PT 01-20 still needing URINARY RETENTION STILL NEEDING WILLARD STILL LOTS OF DRAINAGE FROM LEFT CHEST WOUND AREA NO SOB, NO CHEST PAIN DW RN AND PT 01-21 states PAIN NOT CONTROLLED WILL INCREASE PERCOCET TO 10/325 Q6H WANTS A SLEEPER TOO DW RN AND PT CONTINUE PT AND OT BID 7DAYS A WEEK Objective Vitals Vital Signs Date Time Temp Pulse Resp B/P (MAP) Pulse Ox O2 Delivery O2 Flow Rate FiO2 01/21/17 14:00 102 01/21/17 13:25 Nasal Cannula 2.00 01/21/17 13:00 100 01/21/17 12:00 93 01/21/17 11:48 97.8 121 33 128/87 (101) 100 01/21/17 11:48 100 Nasal Cannula 2.00 01/21/17 11:00 129 01/21/17 10:00 96 01/21/17 09:00 94 01/21/17 08:00 92 01/21/17 07:34 100 Room Air 01/21/17 07:34 97.5 99 25 149/75 (99) 100 01/21/17 07:00 101 01/21/17 06:03 93 01/21/17 05:58 87 01/21/17 04:08 96 01/21/17 03:21 95 01/21/17 03:09 97.7 104 21 145/78 (100) 93 01/21/17 03:09 93 Room Air 01/21/17 02:16 92 01/21/17 01:39 91 01/21/17 00:03 96 01/20/17 23:15 98.6 110 16 155/86 (109) 95 01/20/17 23:15 96 01/20/17 23:10 97 Room Air 01/20/17 23:00 96 01/20/17 22:00 103 01/20/17 21:00 93 01/20/17 20:00 87 01/20/17 19:30 97 Room Air 01/20/17 19:00 91 01/20/17 18:00 96 01/20/17 17:00 93 01/20/17 16:00 99 01/20/17 15:42 97 Room Air 01/20/17 15:42 97.5 90 25 146/74 (98) 97 01/20/17 15:00 93 I/O 01/20/17 01/20/17 01/20/17 01/21/17 01/21/17 01/21/17 07:00 15:00 23:00 07:00 15:00 23:00 Intake Total 480 ml 840 ml 720 ml Output Total 300 ml 2000 ml 800 ml Balance 180 ml -1160 ml -80 ml Intake Oral 480 ml 840 ml 720 ml Output Urine Total 300 ml 2000 ml 800 ml Result Diagram: 01/21/17 0500 01/21/17 0500 Other Results Laboratory Tests Test 01/19/17 05:20 01/20/17 04:14 01/21/17 04:15 01/21/17 05:00 White Blood Count 4.3 TH/MM3 3.1 TH/MM3 4.7 TH/MM3 Red Blood Count 2.90 MIL/MM3 2.73 MIL/MM3 2.68 MIL/MM3 Hemoglobin 10.1 GM/DL 9.6 GM/DL 9.5 GM/DL Hematocrit 29.3 % 28.2 % 27.4 % Mean Corpuscular Volume 101.0 FL 103.4 FL 102.1 FL Mean Corpuscular Hemoglobin 34.9 PG 35.3 PG 35.3 PG Mean Corpuscular Hemoglobin Concent 34.6 % 34.1 % 34.5 % Red Cell Distribution Width 21.2 % 21.1 % 21.3 % Platelet Count 67 TH/MM3 66 TH/MM3 67 TH/MM3 Mean Platelet Volume 9.7 FL 10.5 FL 9.1 FL Neutrophils (%) (Auto) 82.9 % 75.8 % 78.2 % Lymphocytes (%) (Auto) 9.4 % 15.1 % 13.0 % Monocytes (%) (Auto) 7.6 % 8.9 % 8.7 % Eosinophils (%) (Auto) 0.0 % 0.1 % 0.1 % Basophils (%) (Auto) 0.1 % 0.1 % 0.0 % Neutrophils # (Auto) 3.6 TH/MM3 2.3 TH/MM3 3.7 TH/MM3 Lymphocytes # (Auto) 0.4 TH/MM3 0.5 TH/MM3 0.6 TH/MM3 Monocytes # (Auto) 0.3 TH/MM3 0.3 TH/MM3 0.4 TH/MM3 Eosinophils # (Auto) 0.0 TH/MM3 0.0 TH/MM3 0.0 TH/MM3 Basophils # (Auto) 0.0 TH/MM3 0.0 TH/MM3 0.0 TH/MM3 CBC Comment AUTO DIFF AUTO DIFF AUTO DIFF Differential Comment AUTO DIFF CONFIRMED AUTO DIFF CONFIRMED AUTO DIFF CONFIRMED Platelet Estimate LOW LOW LOW Platelet Morphology Comment NORMAL NORMAL NORMAL Blood Urea Nitrogen 10 MG/DL 11 MG/DL 10 MG/DL Creatinine 0.52 MG/DL 0.45 MG/DL 0.34 MG/DL Random Glucose 121 MG/DL 94 MG/DL 98 MG/DL Total Protein 5.2 GM/DL 4.9 GM/DL 4.6 GM/DL Albumin 2.6 GM/DL 2.4 GM/DL 2.3 GM/DL Calcium Level 8.1 MG/DL 7.9 MG/DL 7.7 MG/DL Phosphorus Level 2.2 MG/DL 2.6 MG/DL 3.2 MG/DL Magnesium Level 2.0 MG/DL 2.5 MG/DL 2.1 MG/DL Alkaline Phosphatase 174 U/L 178 U/L 182 U/L Aspartate Amino Transf (AST/SGOT) 38 U/L 50 U/L 31 U/L Alanine Aminotransferase (ALT/SGPT) 41 U/L 49 U/L 49 U/L Total Bilirubin 0.7 MG/DL 0.9 MG/DL 0.8 MG/DL Sodium Level 140 MEQ/L 138 MEQ/L 138 MEQ/L Potassium Level 3.9 MEQ/L 3.5 MEQ/L 3.7 MEQ/L Chloride Level 102 MEQ/L 101 MEQ/L 100 MEQ/L Carbon Dioxide Level 30.9 MEQ/L 28.6 MEQ/L 31.2 MEQ/L Anion Gap 7 MEQ/L 8 MEQ/L 7 MEQ/L Estimat Glomerular Filtration Rate 122 ML/MIN 144 ML/MIN 199 ML/MIN Urine Color YELLOW Urine Turbidity CLEAR Urine pH 7.0 Urine Specific [place] 1.014 Urine Protein TRACE mg/dL Urine Glucose (UA) NEG mg/dL Urine Ketones NEG mg/dL Urine Occult Blood SMALL Urine Nitrite NEG Urine Bilirubin NEG Urine Urobilinogen 4.0 MG/DL Urine Leukocyte Esterase NEG Urine RBC 4-9 /hpf Urine WBC 0-2 /hpf Urine Squamous Epithelial Cells 0-5 /hpf Urine Bacteria RARE /hpf Urine Yeast with Hyphae RARE Urine Yeast (Budding) OCC Microscopic Urinalysis Comment CATH-CULTURE IND Imaging Last Impressions Chest X-Ray 01/19/17 0600 Signed Impressions: Service Date/Time: January 03:46 - CONCLUSION: Stable examination. Residual pleural effusion on the left and residual pleural air similar to the previous study. Jamie Camacho MD Abdomen X-Ray 01/15/17 1820 Signed Impressions: Service Date/Time: Sunday, January 15, 2017 18:30 - CONCLUSION: 1. No obvious obstruction or pneumoperitoneum on this limited view of the abdomen. 2. Nasogastric tube with the tip projecting over the proximal gastric body. 3. Volume loss in the left hemithorax with stable position of 2 thoracostomy tubes and left basilar consolidation. . Yogesh Isbell MD Chest CT 12/31/16 0000 Signed Impressions: Service Date/Time: Saturday, December 31, 2016 14:44 - CONCLUSION: 1. Interval placement of left-sided chest tube with slight decrease in the complex low-density fluid collection in the lower left hemithorax. 2. Volume loss remains in the left hemithorax with consolidation in the left infrahilar region 3. New small right pleural effusion and consolidation in the right posterior lower lobe 4. The previously noted fluid and debris in the left mainstem bronchus is no longer present. Kashif Garcia MD Chest Ultrasound 12/30/16 0000 Signed Impressions: Service Date/Time: Friday, December 30, 2016 09:59 - CONCLUSION: No focal collections of anechoic free fluid. Prominent amount of heterogeneous echotexture material surrounding the left lower chest. Art Willard MD Chest Tube Insertion 12/29/16 1224 Signed Impressions: Service Date/Time: December 13:22 - CONCLUSION: Uncomplicated CT-guided thoracentesis. David Mora MD Objective Remarks GENERAL: Awake alert oriented 3 --talkative and cooperative SKIN: Warm and dry. No obvious rashes HEAD: Atraumatic. Normocephalic. EYES: Pupils equal and round. No scleral icterus. No injection or drainage. Extraocular muscles intact ENT: No nasal bleeding or discharge. Mucous membranes pink and moist. Tongue is midline NECK: Trachea midline. No JVD. Supple CARDIOVASCULAR: Regular rate and rhythm. S1-S2 no S3 or S4 no heave or thrill or rub RESPIRATORY: No accessory muscle use. Breath sounds equal bilaterally. Coarse breath sounds bilaterally GASTROINTESTINAL: Abdomen soft, non-tender, nondistended. Hepatic and splenic margins not palpable. MUSCULOSKELETAL: Extremities without clubbing, cyanosis, or edema. No obvious deformities. Bilateral lower extremity weakness NEUROLOGICAL: Awake and alert. No obvious cranial nerve deficits. Motor grossly within normal limits. 4 out of 5 muscle strength in the arms and 4 out of 5 muscle strength in the legs. Normal speech. PSYCHIATRIC: Appropriate mood and affect; insight and judgment ABnormal. WILLARD CATHETER IN PLACE Procedures CT guided thoracentesis with L chest tube placement 12/29 Left thoracoscopic exploration, left thoracotomy for decortication, evacuation of complex loculated effusion, adhesiolysis 01/11/17- INTUBATED 01-16 EXTUBATED 01-16 BRONCHOSCOPY WITH BAL OF LEFT SIDE Medications and IVs Current Medications Sodium Chloride (NS Flush) 2 ml UNSCH PRN IVF FLUSH AFTER USING IV ACCESS Last administered on 01/08/17 21:04; Start 12/29/16 at 10:15; Stop 01/10/17 at 17: 47; Status DC Methylprednisolone Sodium Succinate (SoluMEDROL INJ) 125 mg ONCE ONCE IV PUSH Last administered on 12/29/16 10:17; Start 12/29/16 at 10:15; Stop 12/29/16 at 10:16; Status DC Albuterol/ Ipratropium (Duoneb Neb) 1 ampule ONCE ONCE INH Last administered on 12/29/16 10:13; Start 12/29/16 at 10:15; Stop 12/29/16 at 10:16; Status DC Albuterol Sulfate (Albuterol Neb) 2.5 mg Q15M INH Last administered on 10:13; Start 12/29/16 at 10:15; Stop 12/29/16 at 10:31; Status DC Sodium Chloride 1,000 ml @ 125 mls/hr Q8H IV Last administered on 12/29/16 10:17; Start 12/29/16 at 10:15; Stop 12/29/16 at 11:35; Status DC Ondansetron HCl (Zofran Inj) 4 mg ONCE ONCE IV PUSH Last administered on 12/29 10:41; Start 12/29/16 at 10:45; Stop 12/29/16 at 10:46; Status DC Ceftriaxone Sodium 1000 mg/ Sodium Chloride 100 ml @ 200 mls/hr ONCE ONCE IV Last administered on 12/29/16 11:54; Start 12/29/16 at 11:15; Stop 12/29/16 at 11:44; Status DC Azithromycin 500 mg/Sodium Chloride 250 ml @ 250 mls/hr ONCE ONCE IV Last administered on 12/29/16 12:31; Start 12/29/16 at 11:15; Stop 12/29/16 at 12 :14; Status DC Pantoprazole Sodium (Protonix Inj) 40 mg DAILY IV PUSH Last administered on 08:54; Start 12/29/16 at 12:00; Stop 12/31/16 at 14:05; Status DC Albuterol/ Ipratropium (Duoneb Neb) 1 ampule Q4HR NEB INH Last administered on 01/02/17 07:58; Start 12/29/16 at 12:00; Stop 01/02/17 at 11:59; Status DC Albuterol/ Ipratropium (Duoneb Neb) 1 ampule Q2HR NEB PRN INH WHEEZING Last administered on 01/04/17 10:14; Start 12/29/16 at 11:30; Stop 01/11/17 at 20: 29; Status DC Miscellaneous Information 1 [id number] Last administered on 12/29/16 21:22; Start 12/29/16 at 11:30; Stop 01/07/17 at 23:35; Status DC Chlorhexidine Gluconate (Chlorhexidine 2% Cloth) Taper DAILY@04 TOP Last administered on 01/01/17 04:00; Start 12/30/16 at 04:00; Stop 01/07/17 at 23: 35; Status DC Chlorhexidine Gluconate (Chlorhexidine 2% Cloth) 3 pack UNSCH PRN TOP HYGIENIC CARE; Start 12/29/16 at 11:30; Stop 01/07/17 at 23:35; Status DC Senna/Docusate Sodium (Elvie-Colace) 1 tab BID PO Last administered on 08:44; Start 12/29/16 at 21:00; Stop 01/11/17 at 20:29; Status DC Magnesium Hydroxide (Milk Of Magnesia Liq) 30 ml Q12H PRN PO Mild constipation Last administered on 01/09/17 20:33; Start 12/29/16 at 11:30; Stop 01/11/17 at 20:29; Status DC Sennosides (Senokot) 17.2 mg Q12H PRN PO Moderate constipation Last administered on 01/17/17 02:19; Start 12/29/16 at 11:30 Bisacodyl (Dulcolax Supp) 10 mg DAILY PRN RECTAL SEVERE CONSITIPATION; Start 12/29/16 at 11:30; Stop 01/17/17 at 14:59; Status DC Lactulose (Lactulose Liq) 30 ml DAILY PRN PO SEVERE CONSITIPATION; Start 12/29 at 11:30; Status Cancel Sodium Chloride 1,000 ml @ 84 mls/hr [id number] IV Last administered on 17:26; Start 12/29/16 at 11:30; Stop 12/30/16 at 08:37; Status DC Potassium Chloride 100 ml @ 50 mls/hr Q2H PRN IV For Potassium 2.8 - 3.2 mEq/L ; Start 12/29/16 at 11:30; Stop 12/31/16 at 14:05; Status DC Potassium Chloride 100 ml @ 50 mls/hr Q2H PRN IV For Potassium 2.8 - 3.2 mEq/L ; Start 12/29/16 at 11:30; Stop 12/31/16 at 14:05; Status DC Potassium Bicarb/ Potassium Chloride (K-Lyte Cl Eff) 50 meq UNSCH PRN PO For Potassium 3.3 - 3.5 mEq/L; Start 12/29/16 at 11:30; Stop 12/31/16 at 14:05; Status DC Potassium Chloride 100 ml @ 25 mls/hr UNSCH PRN IV For Potassium 3.3 - 3.5 mEq /L; Start 12/29/16 at 11:30; Stop 12/31/16 at 14:05; Status DC Potassium Chloride 100 ml @ 50 mls/hr Q2H PRN IV For Potassium 3.3 - 3.5 mEq/L ; Start 12/29/16 at 11:30; Stop 12/31/16 at 14:05; Status DC Magnesium Sulfate 4 gm/Sodium Chloride 100 ml @ 50 mls/hr UNSCH PRN IV For Magnesium 0.9 - 1.1 mg/dL; Start 12/29/16 at 11:30; Stop 12/31/16 at 14:05; Status DC Magnesium Oxide (Mag-Ox) 800 mg UNSCH PRN PO For Magnesium 1.2 - 1.6 mg/dL; Start 12/29/16 at 11:30; Stop 12/31/16 at 14:05; Status DC Magnesium Sulfate 2 gm/Sodium Chloride 100 ml @ 50 mls/hr UNSCH PRN IV For Magnesium 1.2 - 1.6 mg/dL; Start 12/29/16 at 11:30; Stop 12/31/16 at 14:05; Status DC Potassium Phosphate (K-Phos) 2,000 mg Q4H PRN PO For Phosphorus < 2.5 mg/dL; Start 12/29/16 at 11:30; Stop 12/31/16 at 14:05; Status DC Sodium Phosphate 30 mmol/Sodium Chloride 250 ml @ 42 mls/hr UNSCH PRN IV For Phosphorus < 2.5 mg/dL; Start 12/29/16 at 11:30; Stop 12/31/16 at 14:05; Status DC Potassium Phosphate (K-Phos) 2,000 mg UNSCH PRN PO/TUBE SEE LABEL COMMENTS; Start 12/29/16 at 11:30; Stop 12/31/16 at 14:05; Status DC Potassium Phosphate 30 mmol/ Sodium Chloride 260 ml @ 42 mls/hr UNSCH PRN IV SEE LABEL COMMENTS Last administered on 12/30/16 11:46; Start 12/29/16 at 11: 30; Stop 12/31/16 at 14:05; Status DC Dextrose (D50w (Vial) Inj) 50 ml UNSCH PRN IV PUSH HYPOGLYCEMIA-SEE COMMENTS; Start 12/29/16 at 11:30; Stop 01/07/17 at 23:34; Status DC Glucagon (Glucagon Inj) 1 mg UNSCH PRN OTHER HYPOGLYCEMIA-SEE COMMENTS; Start 12/29/16 at 11:30; Stop 01/07/17 at 23:34; Status DC Insulin Human Regular (NovoLIN R SUPPLEMENTAL SCALE) 1 Q6H SQ Last administered on 01/01/17 17:30; Start 12/29/16 at 11:30; Stop 01/07/17 at 23: 34; Status DC Ceftriaxone Sodium 1000 mg/ Sodium Chloride 100 ml @ 200 mls/hr Q24H IV Last administered on 01/03/17 12:20; Start 12/30/16 at 12:00; Stop 01/04/17 at 11: 59; Status DC Azithromycin 500 mg/Sodium Chloride 250 ml @ 250 mls/hr Q24H IV Last administered on 12/31/16 11:48; Start 12/30/16 at 13:00; Stop 12/31/16 at 15 :20; Status DC Methylprednisolone Sodium Succinate (SoluMEDROL INJ) 60 mg Q6HR IV PUSH Last administered on 12/30/16 12:31; Start 12/29/16 at 16:00; Stop 12/30/16 at 13 :03; Status DC Lidocaine/ Epinephrine (Xylocaine-Epi 1%-1:100,000 Inj) 20 ml STK-MED ONCE .ROUTE Last administered on 12/29/16 12:38; Start 12/29/16 at 12:38; Stop 12/29/16 at 12:39; Status DC Fentanyl Citrate (fentaNYL INJ) 100 mcg STK-MED ONCE .ROUTE Last administered on 12/29/16 12:47; Start 12/29/16 at 12:47; Stop 12/29/16 at 12:48; Status DC Midazolam HCl (Versed Inj) 2 mg STK-MED ONCE .ROUTE Last administered on 12:47; Start 12/29/16 at 12:47; Stop 12/29/16 at 12:48; Status DC Iohexol (Omnipaque 350 Inj) 69 ml STK-MED ONCE IVCONTRAST Last administered on 12/29/16 13:33; Start 12/29/16 at 13:33; Stop 12/29/16 at 13:34; Status DC Ephedrine Sulfate (ePHEDrine/NS 25 MG/5 ML SYR) 25 mg STK-MED ONCE .ROUTE ; Start 12/29/16 at 13:40; Stop 12/29/16 at 13:41; Status DC Acetaminophen (Tylenol) 650 mg Q6H PRN PO PAIN Last administered on 12/30/16 04:13; Start 12/30/16 at 04:15; Stop 01/02/17 at 11:16; Status DC Oxycodone/ Acetaminophen (Percocet 5-325 Mg) 1 tab ONCE ONCE PO Last administered on 12/30/16 09:39; Start 12/30/16 at 09:30; Stop 12/30/16 at 09 :31; Status DC Methylprednisolone Sodium Succinate (SoluMEDROL INJ) 40 mg Q6HR IV PUSH Last administered on 01/01/17 05:12; Start 12/30/16 at 18:00; Stop 01/01/17 at 11 :40; Status DC Morphine Sulfate (Morphine Inj) 1 mg ONCE ONCE IV PUSH Last administered on 15:06; Start 12/30/16 at 15:00; Stop 12/30/16 at 15:01; Status DC Acetaminophen (Tylenol) 650 mg Q6H PRN PO PAIN 1-2; Start 12/30/16 at 22:30 Morphine Sulfate (Morphine Inj) 1 mg Q4H PRN IV PAIN 5-10 Last administered on 12/31/16 11:12; Start 12/30/16 at 22:30; Stop 12/31/16 at 13:46; Status DC Morphine Sulfate (Morphine Inj) 2 mg Q4H PRN IV BREAKTHROUGH PAIN 6-10 Last administered on 01/11/17 13:33; Start 12/31/16 at 14:30; Stop 01/11/17 at 19: 27; Status DC Acetaminophen/ Hydrocodone Bitart ([place] 5-325 Mg) 1 tab Q6H PRN PO PAIN 3-5 Last administered on 01/02/17 05:18; Start 12/31/16 at 13:45; Stop 01/09/17 at 09:01; Status DC Acetaminophen/ Hydrocodone Bitart ([place] 5-325 Mg) 2 tab Q6H PRN PO PAIN 6-10 Last administered on 01/09/17 08:39; Start 12/31/16 at 13:45; Stop 01/09/17 at 09:01; Status DC Pantoprazole Sodium (Protonix) 40 mg DAILY PO Last administered on 01/11/17 08 :41; Start 01/01/17 at 09:00; Stop 01/11/17 at 20:29; Status DC Iohexol (Omnipaque 350 Inj) 70 ml STK-MED ONCE IVCONTRAST Last administered on 12/31/16 14:59; Start 12/31/16 at 14:59; Stop 12/31/16 at 15:00; Status DC Azithromycin 500 mg/Sodium Chloride 250 ml @ 250 mls/hr Q24H IV Last administered on 01/04/17 11:57; Start 01/02/17 at 13:00; Stop 01/04/17 at 14: 46; Status DC Methylprednisolone Sodium Succinate (SoluMEDROL INJ) 40 mg Q12HR IV PUSH Last administered on 01/03/17 07:37; Start 01/01/17 at 21:00; Stop 01/03/17 at 13 :51; Status DC Methylprednisolone Sodium Succinate (SoluMEDROL INJ) 40 mg DAILY IV PUSH Last administered on 01/05/17 08:15; Start 01/04/17 at 09:00; Stop 01/05/17 at 18:19 ; Status DC Nifedipine (Procardia Xl) 60 mg ONCE ONCE PO Last administered on 01/05/17 17 :49; Start 01/05/17 at 17:30; Stop 01/05/17 at 17:32; Status DC Nifedipine (Procardia Xl) 30 mg DAILY PO Last administered on 01/17/17 08:32 ; Start 01/06/17 at 09:00; Status Future Hold Furosemide (Lasix) 20 mg DAILY PO Last administered on 01/15/17 09:21; Start 01/05/17 at 17:35; Status Future Hold Prednisone (Deltasone) 10 mg DAILY PO Last administered on 01/15/17 09:21; Start 01/08/17 at 09:00; Stop 01/17/17 at 14:59; Status DC Acetaminophen/ Hydrocodone Bitart ([place] 5-325 Mg) 1 tab Q4H PRN PO PAIN 3-5; Start 01/09/17 at 09:00; Stop 01/11/17 at 19:27; Status DC Acetaminophen/ Hydrocodone Bitart ([place] 5-325 Mg) 2 tab Q4H PRN PO PAIN 6-10 Last administered on 01/11/17 08:47; Start 01/09/17 at 09:15; Stop 01/11/17 at 19:27; Status DC Lactulose (Lactulose Liq) 30 ml ONCE ONCE PO ; Start 01/10/17 at 13:00; Stop 01/10/17 at 13:19; Status DC Lactulose (Lactulose Liq) 30 ml QID PRN PO severe constipation Last administered on 01/11/17 08:42; Start 01/10/17 at 13:00 Simethicone (Phazyme Chew) 125 mg ONCE ONCE PO Last administered on 01/10/17 14:59; Start 01/10/17 at 13:30; Stop 01/10/17 at 13:31; Status DC Sodium Chloride (NS Flush) 2 ml BID IV FLUSH Last administered on 01/11/17 09: 00; Start 01/10/17 at 21:00; Stop 01/11/17 at 20:29; Status DC Sodium Chloride (NS Flush) 2 ml UNSCH PRN IV FLUSH FLUSH AFTER USING IV ACCESS ; Start 01/10/17 at 16:15; Stop 01/11/17 at 20:29; Status DC Cefazolin Sodium 500 mg/Sodium Chloride 505 ml @ 0 mls/hr COMPLAINT SPECIALIST IRRIGATION ; Start 01/10/17 at 16:15; Stop 01/17/17 at 14:59; Status DC Cefazolin Sodium/ Dextrose 50 ml @ 150 mls/hr COMPLAINT SPECIALIST IV Last administered on 01/11/17 16:17; Start 01/10/17 at 16:15; Stop 01/17/17 at 14:59; Status DC Chlorhexidine Gluconate (Hibiclens 4% Top Soln) 1 applic COMPLAINT SPECIALIST TOPICAL Last administered on 01/11/17 08:42; Start 01/10/17 at 16:15; Stop 01/12/17 at 08:40 ; Status DC Dextrose (D50w (Vial) Inj) 50 ml UNSCH PRN IV PUSH HYPOGLYCEMIA-SEE COMMENTS; Start 01/10/17 at 16:15 Lactated Ringer's 1,000 ml @ 30 mls/hr Q24H PRN IV SEE LABEL COMMENTS Last administered on 01/11/17 14:53; Start 01/10/17 at 18:30; Stop 01/11/17 at 20:23 ; Status DC Sodium Chloride 500 ml @ 30 mls/hr [id number] PRN IV SEE LABEL COMMENTS; Start at 18:30; Stop 01/11/17 at 20:23; Status DC Metoprolol Tartrate (Lopressor) 25 mg COMPLAINT SPECIALIST PRN PO SEE LABEL COMMENTS; Start 01/10/17 at 18:30; Stop 01/11/17 at 20:23; Status DC Povidone Iodine (Betadine 5% Antisepsis Kit) 1 applic COMPLAINT SPECIALIST PRN EACH NARE SEE LABEL COMMENTS; Start 01/10/17 at 18:30; Stop 01/11/17 at 20:23; Status DC Chlorhexidine Gluconate (Chlorhexidine 2% Cloth) 3 pack COMPLAINT SPECIALIST PRN TOPICAL SEE LABEL COMMENTS; Start 01/10/17 at 18:30; Stop 01/12/17 at 08:40; Status DC Insulin Human Regular (NovoLIN R INJ) See Protocol Table ... COMPLAINT SPECIALIST PRN SQ SEE PROTOCOL TABLE; Start 01/10/17 at 18:30; Stop 01/11/17 at 20:23; Status DC Albuterol/ Ipratropium (Duoneb Neb) 1 ampule Q6HR NEB NEB Last administered on 01/11/17 09:40; Start 01/10/17 at 22:00; Stop 01/11/17 at 20:29; Status DC Bupivacaine HCl (Marcaine Pf 0.5% Inj) 30 ml ONCE ONCE INFIL Last administered on 01/11/17 17:51; Start 01/11/17 at 17:51; Stop 01/11/17 at 17:53 ; Status DC Albuterol Sulfate (Albuterol Neb) 2.5 mg Q6HR NEB NEB Last administered on 07:08; Start 01/11/17 at 22:00; Stop 01/13/17 at 12:20; Status DC Albuterol Sulfate (Albuterol Neb) 2.5 mg Q2HR NEB PRN NEB WHEEZING Last administered on 01/21/17 05:47; Start 01/11/17 at 19:30 IV Flush (NS Flush) 2 ml BID IV FLUSH Last administered on 01/21/17 09:00; Start 01/11/17 at 21:00 IV Flush (NS Flush) 2 ml UNSCH PRN IV FLUSH FLUSH AFTER USING IV ACCESS; Start 01/11/17 at 19:30 Miscellaneous Information (Post-op Orders (for Pharmacy)) STAT ONCE OTHER ; Start 01/11/17 at 19:30; Stop 01/11/17 at 20:27; Status DC Pantoprazole Sodium (Protonix) 40 mg HS PO Last administered on 01/20/17 21: 31; Start 01/11/17 at 21:00 Ondansetron HCl (Zofran Inj) 4 mg Q6H PRN IV PUSH NAUSEA OR VOMITING Last administered on 01/15/17 05:58; Start 01/11/17 at 19:30 Docusate Calcium (Surfak) 240 mg HS PO Last administered on 01/11/17 23:35; Start 01/11/17 at 21:00; Stop 01/12/17 at 08:40; Status DC Magnesium Hydroxide (Milk Of Magnesia Liq) 30 ml DAILY PRN PO MILD CONSTIPATION ; Start 01/11/17 at 19:30 Acetaminophen 100 ml @ 400 mls/hr Q6H IV Last administered on 01/12/17 19:24 ; Start 01/11/17 at 21:00; Stop 01/12/17 at 15:14; Status DC Naloxone HCl (Narcan Inj) 0.4 mg UNSCH PRN IV PUSH RESPIRATORY RATE LESS THAN 10; Start 01/11/17 at 19:30; Stop 01/16/17 at 18:00; Status DC Morphine Sulfate (Morphine 1 Mg/ ml C[employer]IFIED [employer]) 30 mg UNSCH IV Last administered on 09:29; Start 01/11/17 at 19:30; Stop 01/16/17 at 18:00; Status DC CERTIFIED JUVENILE [employer]OBATION OFFICER Dosage Infused (Pha) 1 Q8HR .XX Last administered on 01/15/17 06:00; Start 01/11/17 at 22:00; Stop 01/16/17 at 18:00; Status DC Morphine Sulfate (*morphine INJ PERIprocedure ONLY) 8 mg STK-MED ONCE .ROUTE Last administered on 01/11/17 20:10; Start 01/11/17 at 20:08; Stop 01/12/17 at 08:40; Status DC Morphine Sulfate (*morphine INJ PERIprocedure ONLY) 8 mg STK-MED ONCE .ROUTE Last administered on 01/11/17 20:30; Start 01/11/17 at 20:22; Stop 01/12/17 at 08:40; Status DC Meperidine HCl (*DEMEROL INJ PERIprocedural ONLY) 25 mg STK-MED ONCE .ROUTE Last administered on 01/11/17 20:23; Start 01/11/17 at 20:22; Stop 01/12/17 at 08:40; Status DC Morphine Sulfate (Morphine 1 Mg/ ml CERTIFIED JUVENILE PROBATION OFFICER) 30 mg STK-MED ONCE .ROUTE ; Start 01/11 at 20:25; Stop 01/11/17 at 20:26; Status DC Sodium Chloride 1,000 ml @ 30 mls/hr Q24H IV Last administered on 01/14/17 21:00; Start 01/11/17 at 21:00 Miscellaneous Information ALL NURSING DEPARTME... UNSCH PRN .XX SEE LABEL COMMENTS; Start 01/11/17 at 19:55; Stop 01/12/17 at 19:54; Status DC Polyethylene Glycol (Miralax) 17 gm DAILY PO Last administered on 01/20/17 09 :16; Start 01/12/17 at 09:00 Potassium Chloride (KCl) 30 meq ONCE ONCE PO Last administered on 01/12/17 10 :07; Start 01/12/17 at 08:45; Stop 01/12/17 at 08:46; Status DC Potassium Chloride (KCl) 10 meq DAILY PO Last administered on 01/18/17 09:00 ; Start 01/12/17 at 09:00; Stop 01/19/17 at 08:51; Status DC Cefazolin Sodium 1000 mg/Sodium Chloride 100 ml @ 200 mls/hr Q8H IV ; Start at 15:45; Stop 01/12/17 at 15:45; Status DC Cefazolin Sodium 1000 mg/Sodium Chloride 100 ml @ 200 mls/hr Q8H IV Last administered on 01/13/17 08:04; Start 01/12/17 at 16:00; Stop 01/13/17 at 08: 19; Status DC Ceftriaxone Sodium 1000 mg/ Sodium Chloride 100 ml @ 200 mls/hr Q24H IV Last administered on 01/19/17 00:26; Start 01/12/17 at 23:00; Stop 01/19/17 at 18: 02; Status DC Furosemide (Lasix Inj) 20 mg ONCE ONCE IV PUSH Last administered on 13:08; Start 01/13/17 at 14:00; Stop 01/13/17 at 14:01; Status DC Potassium Chloride (KCl) 20 meq ONCE ONCE PO Last administered on 01/13/17 13:07; Start 01/13/17 at 14:00; Stop 01/13/17 at 14:01; Status DC Albuterol Sulfate (Albuterol Neb) 2.5 mg Q6HR WHILE AWAKE NEB INH Last administered on 01/15/17 09:42; Start 01/13/17 at 14:00; Stop 01/15/17 at 10 :45; Status DC Furosemide (Lasix Inj) 20 mg ONCE ONCE IV PUSH Last administered on 18:49; Start 01/13/17 at 17:00; Stop 01/13/17 at 17:01; Status DC Potassium Chloride 100 ml @ 50 mls/hr Q2H IV Last administered on 01/14/17 11:26; Start 01/14/17 at 08:00; Stop 01/14/17 at 11:59; Status DC Etomidate (Amidate Inj) 40 mg STK-MED ONCE .ROUTE Last administered on 10:58; Start 01/15/17 at 10:08; Stop 01/15/17 at 10:09; Status DC Midazolam HCl (Versed Inj) 5 mg STK-MED ONCE .ROUTE Last administered on 10:57; Start 01/15/17 at 10:09; Stop 01/15/17 at 10:10; Status DC Albuterol Sulfate (Albuterol Neb) 2.5 mg Q4HR NEB PRN NEB DYSPNEA; Start 01/15 at 10:30; Stop 01/20/17 at 12:30; Status DC Propofol 50 ml @ As Directed STK-MED ONCE .ROUTE Last administered on 10:59; Start 01/15/17 at 10:18; Stop 01/15/17 at 10:19; Status DC Chlorhexidine Gluconate (Peridex 0.12% Liq) 15 ml BID@08,20 MT Last administered on 01/15/17 21:32; Start 01/15/17 at 20:00 Propofol 100 ml @ 2.034 mls/ hr TITRATE PRN IV SEDATION Last administered on 01/16/17 05:49; Start 01/15/17 at 10:30; Stop 01/16/17 at 18:00; Status DC Fentanyl Citrate 250 ml @ 5 mls/hr TITRATE PRN IV SEDATION Last administered on 01/15/17 18:25; Start 01/15/17 at 10:30; Stop 01/16/17 at 18:00; Status DC Albuterol/ Ipratropium (Duoneb Neb) 1 ampule Q4HR NEB NEB Last administered on 01/18/17 07:22; Start 01/15/17 at 12:00; Stop 01/18/17 at 10:28; Status DC Methylprednisolone Sodium Succinate (SoluMEDROL INJ) 60 mg Q12H IV PUSH ; Start 01/15/17 at 12:00; Stop 01/15/17 at 12:00; Status DC Methylprednisolone Sodium Succinate (SoluMEDROL INJ) 60 mg Q8H IV PUSH Last administered on 01/18/17 11:01; Start 01/15/17 at 12:00; Stop 01/18/17 at 12 :11; Status DC Enoxaparin Sodium (Lovenox Inj) 40 mg Q24H SQ Last administered on 01/15/17 12:54; Start 01/15/17 at 12:00; Status Future Hold Ferrous Sulfate (Ferrous Sulfate Liq) 300 mg BID PO Last administered on 09:05; Start 01/15/17 at 14:30; Stop 01/16/17 at 17:41; Status DC Acetylcysteine (Mucomyst 20% Neb) 2 ml Q6HR NEB NEB ; Start 01/15/17 at 16:00 ; Stop 01/15/17 at 17:41; Status DC Non-Formulary Medication 2 ML NEB EVERY 6 HOURS Q6HR NEB NEB Last administered on 01/17/17 04:25; Start 01/15/17 at 18:00; Stop 01/18/17 at 10 :41; Status DC Potassium Bicarb/ Potassium Chloride (K-Lyte Cl Eff) 25 meq ONCE ONCE PO Last administered on 01/16/17 07:26; Start 01/16/17 at 06:45; Stop 01/16/17 at 06:51; Status DC Lactulose (Lactulose Liq) 30 ml DAILY NG Last administered on 01/20/17 09:16 ; Start 01/16/17 at 09:00 Docusate Sodium (Colace) 100 mg BID PO Last administered on 01/20/17 21:36; Start 01/16/17 at 09:00 Magnesium Sulfate/ Dextrose 100 ml @ 100 mls/hr ONCE ONCE IV Last administered on 01/16/17 08:57; Start 01/16/17 at 08:45; Stop 01/16/17 at 09 :44; Status DC Sodium Chloride 250 ml @ 0 mls/hr BOLUS ONCE IV Last administered on 10:30; Start 01/16/17 at 10:30; Stop 01/16/17 at 10:31; Status DC Sodium Chloride 500 ml @ 500 mls/hr BOLUS ONCE IV Last administered on 13:11; Start 01/16/17 at 13:15; Stop 01/16/17 at 14:14; Status DC Sodium Chloride 500 ml @ 500 mls/hr Q1H ONCE IV Last administered on 17:36; Start 01/16/17 at 17:30; Stop 01/16/17 at 18:29; Status DC Ferrous Sulfate (Ferrous Sulfate) 325 mg BID PO Last administered on 09:50; Start 01/16/17 at 21:00 Oxycodone/ Acetaminophen (Percocet 7.5-325 Mg) 1 tab Q6H PRN PO pain 5-10 Last administered on 01/21/17 11:41; Start 01/16/17 at 18:15 Albumin Human 500 ml @ 250 mls/hr ONCE ONCE IV Last administered on 04:26; Start 01/17/17 at 03:45; Stop 01/17/17 at 05:44; Status DC Furosemide (Lasix Inj) 40 mg STK-MED ONCE .ROUTE Last administered on 09:04; Start 01/17/17 at 09:04; Stop 01/17/17 at 14:59; Status DC Potassium Bicarb/ Potassium Chloride (K-Lyte Cl Eff) 25 meq ONCE ONCE PO Last administered on 01/18/17 09:00; Start 01/18/17 at 09:00; Stop 01/18/17 at 09:01; Status DC Potassium Chloride (KCl) 30 meq ONCE ONCE PO ; Start 01/18/17 at 11:00; Stop 01/18/17 at 11:00; Status DC Potassium Phos/ Sodium Phos (K-Phos Neutral) 250 mg Q8HR PO Last administered on 01/21/17 13:16; Start 01/18/17 at 08:30 Bisacodyl (Dulcolax Supp) 10 mg ONCE ONCE RECTAL Last administered on 11:01; Start 01/18/17 at 10:00; Stop 01/18/17 at 10:20; Status DC Sodium Biphosphate/ Sodium Phosphate (Fleets Enema (Adult)) 133 ml ONCE ONCE VT ; Start 01/18/17 at 10:00; Stop 01/18/17 at 10:20; Status DC Potassium Bicarb/ Potassium Chloride (K-Lyte Cl Eff) 25 meq ONCE ONCE PO Last administered on 01/18/17 11:01; Start 01/18/17 at 10:00; Stop 01/18/17 at 10:20; Status DC Lidocaine HCl (Xylocaine-Mpf 1% Inj) 50 ml STK-MED ONCE OTHER ; Start 01/11/17 at 12:00; Stop 01/18/17 at 10:58; Status DC Rocuronium [place] (Zemuron Inj) 50 mg STK-MED ONCE IV PUSH ; Start 01/11/17 at 12:00; Stop 01/18/17 at 10:58; Status DC Neostigmine Methylsulfate (Prostigmin Inj) 3 mg STK-MED ONCE IV ; Start at 12:00; Stop 01/18/17 at 10:58; Status DC Glycopyrrolate (Robinul Inj) 1 mg STK-MED ONCE IV PUSH ; Start 01/11/17 at 12:00 ; Stop 01/18/17 at 10:58; Status DC Phenylephrine HCl (Neosynephrine/ NS 1000 Mcg/10ml Syr) 1,000 mcg STK-MED ONCE IV ; Start 01/11/17 at 12:00; Stop 01/18/17 at 10:58; Status DC Ondansetron HCl (Zofran Inj) 4 mg STK-MED ONCE IV PUSH ; Start 01/11/17 at 12:00 ; Stop 01/18/17 at 10:58; Status DC Fentanyl Citrate (fentaNYL INJ) 200 mcg STK-MED ONCE IV ; Start 01/11/17 at 12: 00; Stop 01/18/17 at 10:58; Status DC Morphine Sulfate (Morphine Inj) 4 mg STK-MED ONCE IV ; Start 01/11/17 at 12:00; Stop 01/18/17 at 10:58; Status DC Propofol (Diprivan 200 Mg/20 ml Inj) 200 mg STK-MED ONCE IV ; Start 01/11/17 at 12:00; Stop 01/18/17 at 10:58; Status DC Parenteral Electrolytes 1,000 ml @ As Directed STK-MED ONCE IV ; Start at 12:00; Stop 01/18/17 at 10:58; Status DC Lactated Ringer's 1,000 ml @ As Directed STK-MED ONCE IV ; Start 01/11/17 at 12 :00; Stop 01/18/17 at 10:58; Status DC Methylprednisolone Sodium Succinate (SoluMEDROL INJ) 40 mg BID IV PUSH Last administered on 01/19/17t 09:29; Start 01/18/17 at 21:00; Stop 01/19/17 at 18 :02; Status DC [place] Chloride (Urecholine) 25 mg Q8H PO Last administered on 01/21/17 11:41; Start 01/18/17 at 20:00 Furosemide (Lasix Inj) 40 mg DAILY IV PUSH Last administered on 01/21/17 09: 49; Start 01/19/17 at 09:00 Potassium Chloride (KCl) 30 meq DAILY PO Last administered on 01/21/17 09:48 ; Start 01/19/17 at 09:00 Tamsulosin HCl (Flomax) 0.4 mg DAILY PO Last administered on 01/21/17 09:49; Start 01/19/17 at 11:00 Prednisone (Deltasone) 10 mg BID PO Last administered on 01/21/17 09:50; Start 01/19/17 at 21:00 Magnesium Sulfate/ Dextrose 100 ml @ 100 mls/hr Q1H IV Last administered on 20:26; Start 01/19/17 at 19:00; Stop 01/19/17 at 20:59; Status DC Tiotropium [place] (Spiriva Inh) 18 mcg DAILY INH Last administered on 09:48; Start 01/21/17 at 09:00 Urinary Catheter: No A/P Problem List: (1) Pleural effusion on left ICD Code: J90 - Pleural effusion, not elsewhere classified Status: Acute (2) Respiratory distress ICD Code: R06.00 - Dyspnea, unspecified Status: Resolved (3) Hyponatremia ICD Code: E87.1 - Hypo-osmolality and hyponatremia Status: Acute (4) COPD (chronic obstructive pulmonary disease) ICD Code: J44.9 - Chronic obstructive pulmonary disease, unspecified Status: Chronic (5) Tobacco abuse ICD Code: Z72.0 - Tobacco use Status: Chronic Assessment and Plan ASSESSMENT Acute hypoxemic respiratory failure Complete left lung atelectasis Left-sided consolidation with pleural effusion Left thoracotomy with decortication, evacuation of complex loculated effusion, adhesiolysis Pulmonary hypertension COPD exacerbation Hyponatremia/hypophosphatemia Hypokalemia. Urinary tract infection on abx PLAN: Neuro: Hold propofol and reduce fentanyl to facilitate weaning trials Pain control with fentanyl--off all sedation at this time ORAL PAIN CONTROL Pulm: Acute hypoxemic respiratory failure Complete L lung atelectasis S/p decortication for L hemothorax COPD Tobacco abuse ?L lung mass vs loculated effusion/ Emergently intubated and placed on mechanical ventilation 01/15 s/p Bronchoscopy by Dr. Chung. Left lung valera reexpanded, persistent volume loss involving left lower lung field Start weaning trials with possible extubation--extubated January 16 Status post left thoracotomy and decortication 01/11/17-postop diagnosis was hemothorax Bronchodilators, Solumedrol 60 mg IV q8 hours s/p CT guided left-sided thoracentesis and CT placement by IR 12/29/16 CT chest: Either highly complex fluid or soft tissue mass involving the left lung base with mass effect. This measures 12.2 x 12.6 x 7.4 cm. 4.4 cm ascending aortic aneurysm. --Status post bronchoscopy with left sided bronchial alveolar lavage by pulmonary on January 16 CHEST TUBE REMOVED LOTS OF DRAINAGE FROM CHEST TUBE SITE CV: Pulmonary hypertension, most likely secondary from chronic hypoxia by echo Moderate aortic stenosis mild to moderate aortic regurgitation Monitor HR and BP and maintain MAP>65mmHg Echo 12/30 - systolic function grossly normal. Moderate /AI. Moderate to severe pulmonary hypertension.. GI: Nothing by mouth-has been extubated Diet as tolerated : Hyponatremia ?chronic but chronicity not truly known Hypokalemia, resolved- STILL LOW WILL REPLACE ID: UTI Possible pneumonia Continue Rocephin for now UTI present on admission with culture positive for pansensitive Klebsiella. Influenza screen, blood and pleural fluid cultures negative to date. Temporal fluid studies from January 11, on cultures negative to date URINARY RETENTION- STARTED ON BETHANECHOL YESTERDAY - WILL ADD FLOMAX CONTINUE WILLARD Endo: SSI with Accu-Cheks for glycemic control. Heme: Macrocytic anemia Anemia of chronic disease and iron deficiency Monitor CBC. Normal B12, Supplement iron due to her lab findings consistent with iron deficiency Being transfused 1 unit packed red blood cells today DVT prophylaxis with SCDs. Lovenox 40 mg sq daily. IV Famotidine 20 mg IV q12h NOT BEING TRANSFUSED TODAY Needs physical therapy and occupational therapy aggressively PAIN CONTROL INCREASE PERCOCET TO 10/325 NEEDS TO GET MOBILE AM LABS Discharge Planning Needs to be more mobile May require MARISCAL IF ABLE TO GET APPROVAL Problem Qualifiers (1) COPD (chronic obstructive pulmonary disease): Qualified Codes: J43.1 - Panlobular emphysema Raf Soria DO Jan 21, 2017 14:22
[2017-01-21] MEDS: oxyCODONE/ACETAMINOPHEN 10 MG/325 MG TAB PO PRN ×2 (17:43→21:28)
[2017-01-21] MEDS: SODIUM CHLOR 0.9% 1000 ML INJ 1,000 ML IV SCH (21:00)
[2017-01-21] MEDS: PANTOPRAZOLE SOD 40 MG DELAYED RELEASE TAB PO SCH (21:28)
[2017-01-21] MEDS: ZOLPIDEM TARTRATE 5 MG TAB PO PRN (23:14)
[2017-01-22] VITALS (29 sets, daily range): BP systolic 116–160; BP diastolic 71–94; PULSE 83–120; RESP 16–22; TEMP 97.5–98.1; O2SAT 93–100
[2017-01-22] MEDS: BETHANECHOL CHL 25 MG TAB PO SCH ×3 (04:00→21:05)
[2017-01-22] MEDS: POTASSIUM PHOSPHATE/SODIUM PHOSPHATE 250 MG TAB PO SCH ×3 (05:56→22:00)
[2017-01-22] MEDS: oxyCODONE/ACETAMINOPHEN 10 MG/325 MG TAB PO PRN ×4 (06:29→20:07)
[2017-01-22 06:42] LABS: ANION GAP 5 MEQ/L (5-15); BLOOD UREA NITROGEN 11 MG/DL (7-18); CHLORIDE 98 MEQ/L (98-107); POTASSIUM 3.7 MEQ/L (3.5-5.1); SODIUM (NA) 137 MEQ/L (136-145)
[2017-01-22 06:43] LABS: AST (GOT) 17 U/L (15-37); GLOMERULAR FILTRATION RATE 206 ML/MIN (>89)
[2017-01-22 06:44] LABS: AUTOMATED NEUTROPHIL # 3.1 TH/MM3 (1.8-7.7); EOSINOPHIL % 0.4 % (0.0-4.0); HEMATOCRIT 27.9 % (35.0-46.0); LYMPH % 12.1 % (9.0-44.0); LYMPHOCYTE # 0.5 TH/MM3 (1.0-4.8); MEAN CELL VOLUME 103.4 FL (80.0-100.0); MEAN CORPUSCULAR HEMOGLOBIN 34.2 PG (27.0-34.0); MEAN CORPUSCULAR HGB CONC 33.1 % (32.0-36.0); MONO % 10.6 % (0.0-8.0); NEUT % 76.9 % (16.0-70.0); PLATELET COUNT 77 TH/MM3 (150-450); RED CELL DISTRIBUTION WIDTH 21.6 % (11.6-17.2)
[2017-01-22 06:46] LABS: ALKALINE PHOSPHATASE 171 U/L (45-117); ALT (GPT) 37 U/L (10-53); TOTAL BILIRUBIN ADULT 0.9 MG/DL (0.2-1.0)
[2017-01-22 07:01] LABS: HEMO FLAGS AUTO DIFF
[2017-01-22] MEDS: CHLORHEXIDINE 0.12% (ORAL KIT) 15 ML CUP MT SCH ×2 (08:00→20:00)
--- NOTE | 2017-01-22 08:57 | HHI.PR ---
Subjective Remarks Patient seen in room in follow-up for her COPD, pleural effusion and weakness. Doing well. Patient had just gotten up out of the bed with nursing team and was tachycardic and tachypneic. Oxygen patient was fine. Care plan discussed with rn cardiac rehab Objective Vitals Vital Signs Date Time Temp Pulse Resp B/P (MAP) Pulse Ox O2 Delivery O2 Flow Rate FiO2 01/22/17 08:24 98 Nasal Cannula 2.00 01/22/17 06:00 84 01/22/17 05:41 98.1 83 20 144/94 (111) 94 01/22/17 05:35 94 Room Air 01/22/17 05:00 83 01/22/17 04:00 100 01/22/17 03:00 120 01/22/17 02:00 98 01/22/17 01:00 90 01/22/17 00:00 104 01/21/17 23:25 97.5 100 20 131/77 (95) 93 01/21/17 23:22 93 Room Air 01/21/17 23:00 92 01/21/17 22:00 97 01/21/17 21:40 95 Room Air 01/21/17 21:39 97.8 102 20 130/70 (90) 100 01/21/17 21:00 98 01/21/17 20:55 96 01/21/17 20:00 90 01/21/17 19:00 91 01/21/17 18:00 82 01/21/17 17:00 97 01/21/17 16:00 93 01/21/17 15:46 100 Nasal Cannula 2.00 01/21/17 15:46 97.6 96 24 129/73 (91) 100 01/21/17 15:00 90 01/21/17 14:23 99 Nasal Cannula 3.00 01/21/17 14:00 102 01/21/17 13:25 Nasal Cannula 2.00 01/21/17 13:00 100 01/21/17 12:00 93 01/21/17 11:48 97.8 121 33 128/87 (101) 100 01/21/17 11:48 100 Nasal Cannula 2.00 01/21/17 11:00 129 01/21/17 10:00 96 01/21/17 09:00 94 I/O 11/18/01/21/17 01/21/17 01/22/17 01/22/17 01/22/17 07:00 15:00 23:00 07:00 15:00 23:00 Intake Total 720 ml 840 ml 490 ml Output Total 800 ml 1400 ml 860 ml Balance -80 ml -560 ml -370 ml Intake Oral 720 ml 840 ml 490 ml Output Urine Total 800 ml 1400 ml 860 ml # Bowel Movements 1 2 Result Diagram: 01/22/17 0552 01/22/17 0522 Imaging Last Impressions Chest X-Ray 01/19/17 0600 Signed Impressions: Service Date/Time: January 03:46 - CONCLUSION: Stable examination. Residual pleural effusion on the left and residual pleural air similar to the previous study. Jamie Camacho MD Abdomen X-Ray 01/15/17 1820 Signed Impressions: Service Date/Time: Sunday, January 15, 2017 18:30 - CONCLUSION: 1. No obvious obstruction or pneumoperitoneum on this limited view of the abdomen. 2. Nasogastric tube with the tip projecting over the proximal gastric body. 3. Volume loss in the left hemithorax with stable position of 2 thoracostomy tubes and left basilar consolidation. . Ygoesh Isbell MD Chest CT 12/31/16 0000 Signed Impressions: Service Date/Time: Saturday, December 31, 2016 14:44 - CONCLUSION: 1. Interval placement of left-sided chest tube with slight decrease in the complex low-density fluid collection in the lower left hemithorax. 2. Volume loss remains in the left hemithorax with consolidation in the left infrahilar region 3. New small right pleural effusion and consolidation in the right posterior lower lobe 4. The previously noted fluid and debris in the left mainstem bronchus is no longer present. Kashif Garcia MD Chest Ultrasound 12/30/16 0000 Signed Impressions: Service Date/Time: Friday, December 30, 2016 09:59 - CONCLUSION: No focal collections of anechoic free fluid. Prominent amount of heterogeneous echotexture material surrounding the left lower chest. Art Willard MD Chest Tube Insertion 12/29/16 1224 Signed Impressions: Service Date/Time: December 13:22 - CONCLUSION: Uncomplicated CT-guided thoracentesis. David Mora MD Objective Remarks Diffuse petechia, left chest wall drain GENERAL: This is a frail female who appears older than stated age CARDIOVASCULAR: Sinus tachycardia without murmurs, gallops, or rubs. RESPIRATORY: Clear to auscultation. Breath sounds equal bilaterally. No wheezes , rales, or rhonchi. GASTROINTESTINAL: Abdomen soft, non-tender, nondistended. Normal active bowel sounds MUSCULOSKELETAL: Extremities without clubbing, cyanosis, or edema. NEURO: Alert & Oriented x4 to person, place, time, situation. Moves all ext x4 Procedures CT guided thoracentesis with L chest tube placement 12/29 Left thoracoscopic exploration, left thoracotomy for decortication, evacuation of complex loculated effusion, adhesiolysis 01/11/1701-15 INTUBATED 01-16 EXTUBATED 01-16 BRONCHOSCOPY WITH BAL OF LEFT SIDE A/P Problem List: (1) COPD (chronic obstructive pulmonary disease) ICD Code: J44.9 - Chronic obstructive pulmonary disease, unspecified Status: Chronic Plan: continue to wean oral steroids spiriva Follow-up with bronchodilators, pulmonary toilet Pulmonary consultation appreciated Not on home O2 and oxygenation is doing well on room air (2) Pancytopenia ICD Code: D61.818 - Other pancytopenia Plan: Concern for mild dysplastic syndrome Patient has refused bone marrow biopsy Bone marrow slowly recovering Status post 3 units packed red blood cells in transfusion (3) UTI (urinary tract infection) ICD Code: N39.0 - Urinary tract infection, site not specified Status: Acute Plan: Klebsiella UTI, treated (4) Pleural effusion on left ICD Code: J90 - Pleural effusion, not elsewhere classified Status: Acute Plan: loculated s/p decortication/thoracotomy wound care to left chest cont pain management encourage pulmonary toilet (5) Urinary retention ICD Code: R33.9 - Retention of urine, unspecified Plan: maintain bangura poorly ambulatory (6) Physical deconditioning ICD Code: R53.81 - Other malaise Status: Chronic Plan: Patient agreeable to physical therapy for poorly motivated and very symptomatic with movement. Her heart rate and respiratory rate did go up although she remains with normal oxygenation (7) Aortic stenosis ICD Code: I35.0 - Nonrheumatic aortic (valve) stenosis Plan: Patient refuses any further workup EF is preserved on echo this admission Continue medical management of diuresis, low-salt diet, aggressive blood pressure management (8) Pulmonary HTN ICD Code: I27.20 - Pulmonary hypertension, unspecified Plan: Pulmonary artery pressure 63 mmHg on echo this admission Continue with medical management, supportive care and oxygen as needed Assessment and Plan DVT prophylaxis with teds and SCDs due to thrombocytopenia Discharge Planning Patient on telemetry floor to continue aggressive physical therapy May be candidate for jus bed at inpatient rehabilitation if continues to improve Otherwise will need to be home with family Problem Qualifiers (1) COPD (chronic obstructive pulmonary disease): Qualified Codes: J43.1 - Panlobular emphysema Estrellita Santiago MD Jan 22, 2017 08:57
[2017-01-22] MEDS: POLYETHYLENE GLYCOL 17 GM PKG PO SCH (09:00)
[2017-01-22] MEDS: DOCUSATE SODIUM 100 MG CAP PO SCH ×2 (09:00→21:00)
[2017-01-22] MEDS: SODIUM CHLORIDE 0.9% FLUSH 5 ML FLUSH IV FLUSH SCH ×2 (09:00→21:00)
[2017-01-22] MEDS: LACTULOSE SYRUP 20 GM/30 ML CUP NG SCH (09:00)
[2017-01-22 09:15] LABS: PLATELET ESTIMATE SMEAR LOW (NORMAL); PLATELET MORPHOLOGY NORMAL (NORMAL); SCAN/DIFF AUTO DIFF CONFIRMED
[2017-01-22] MEDS: FERROUS SULFATE 325 MG (65 MG ELEMENTAL IRON) TAB PO SCH ×2 (09:19→21:05)
[2017-01-22] MEDS: FUROSEMIDE 20 MG TAB PO SCH (09:19)
[2017-01-22] MEDS: TAMSULOSIN HCL 0.4 MG CAP PO SCH (09:20)
[2017-01-22] MEDS: POTASSIUM CHLORIDE 10 MEQ CONTROLLED RELEASE TAB PO SCH (09:20)
[2017-01-22] MEDS: predniSONE 10 MG TAB PO SCH ×2 (09:20→21:05)
[2017-01-22] MEDS: TIOTROPIUM BROMIDE 18 MCG INH INH SCH (09:21)
[2017-01-22] MEDS: PANTOPRAZOLE SOD 40 MG DELAYED RELEASE TAB PO SCH (21:05)
[2017-01-22] MEDS: ZOLPIDEM TARTRATE 5 MG TAB PO PRN (21:05)
[2017-01-23] VITALS (25 sets, daily range): BP systolic 124–158; BP diastolic 74–96; PULSE 86–118; RESP 16–23; TEMP 97.4–98.5; O2SAT 94–98
[2017-01-23] MEDS: oxyCODONE/ACETAMINOPHEN 10 MG/325 MG TAB PO PRN ×5 (02:54→20:57)
[2017-01-23] MEDS: BETHANECHOL CHL 25 MG TAB PO SCH ×3 (04:22→20:56)
[2017-01-23] MEDS: POTASSIUM PHOSPHATE/SODIUM PHOSPHATE 250 MG TAB PO SCH ×3 (06:05→22:35)
[2017-01-23] MEDS: CHLORHEXIDINE 0.12% (ORAL KIT) 15 ML CUP MT SCH ×2 (07:35→20:00)
[2017-01-23] MEDS: LACTULOSE SYRUP 20 GM/30 ML CUP NG SCH (09:00)
[2017-01-23] MEDS: DOCUSATE SODIUM 100 MG CAP PO SCH ×2 (09:00→20:57)
[2017-01-23] MEDS: POLYETHYLENE GLYCOL 17 GM PKG PO SCH (09:00)
[2017-01-23] MEDS: TIOTROPIUM BROMIDE 18 MCG INH INH SCH (09:23)
[2017-01-23] MEDS: POTASSIUM CHLORIDE 10 MEQ CONTROLLED RELEASE TAB PO SCH (09:24)
[2017-01-23] MEDS: TAMSULOSIN HCL 0.4 MG CAP PO SCH (09:25)
[2017-01-23] MEDS: FUROSEMIDE 20 MG TAB PO SCH (09:25)
[2017-01-23] MEDS: predniSONE 10 MG TAB PO SCH (09:25)
[2017-01-23] MEDS: SODIUM CHLORIDE 0.9% FLUSH 5 ML FLUSH IV FLUSH SCH ×2 (09:27→20:57)
[2017-01-23] MEDS: FERROUS SULFATE 325 MG (65 MG ELEMENTAL IRON) TAB PO SCH ×2 (09:30→20:56)
--- NOTE | 2017-01-23 10:00 | PD.CAR.PN ---
CVT Progress Note Subjective/Hospital Course: 56-year-old white female with a history of COPD, chronic bronchitis who apparently was suffering from food poisoning. The patient states that she was unable to pass urine and became very weak, had lost weight with diarrhea, abdominal discomfort, dehydration and presented to ER for evaluation. She c/o 20 lb weight loss over the past [address] done showed evidence of a loculated mass-like infiltrate in the left lung base 12 x 12 cm and a left upper lobe lung nodule 7 mm. The patient was started on Solu-Medrol, IV antibiotics including Rocephin and Zithromax. Denies chest pains or abdominal pains or nausea or vomiting. She underwent chest tube placement in IR 12/29 with minimal drainage of this effusion.. Chest tube was removed. Repeat chest x- ray shows no change in the mod pleural effusion but does shows some mild patchy opacities in the right lung base. cardiology Dr Dianna perez pt TTE shows preserved EF and at least moderate /AI. present diagnosis : Respiratory Insufficiency, Left-sided consolidation , Exudative pleural effusion, COPD exacerbation, Urinary tract infection, x tobacco use Anemia, thrombocytopenia, Moderate aortic valve regurgitation, Moderate calcific aortic valve stenosis pleural fluid : exudative effusion. Cytology neg for malignant cells. Fluid cx neg CT chest 12/29 : Either highly complex fluid or soft tissue mass involving the left lung base with mass effect. This measures 12.2 x 12.6 x 7.4 cm. 4.4 cm ascending aortic aneurysm. pt is now agreeable for surgery : plan is for left thoracoscopic exploration for loculated pleural effusion , possible thoracotomy , decortication in am 01/11 on nasal cannula surgery: Left thoracoscopic exploration, left thoracotomy for decortication, evacuation of complex loculated effusion, adhesiolysis 01/12 pain controlled with GENERAL II [employer] morphine needs aggressive pulm toileting OOB, ambulate recheck UA / pleural fluid cultures and path pending 01/13 chest tubes drained 130cc/ 12 hrs serous drainage / leave chest tube in for now CXR noted , from 01/12, mucus plugging, aggressive pulm toileting add ezpap and acapella now on Rocephin, will dc ancef, await on UA culture OOB, ambulate, 01/14/17 No complaints today. Denies dyspnea, but CXR shows complete opacification of left lung 01/15/17 Hypoxic this morning despite 100% FiO2. Transferred to CVICU and reintubated. Bronchoscopy pending. 01/16 remains in CVICU, hematology consulted s/p Bronch chest tube to water seal 01/17 now on nasal cannula 2 liters continue pulm toileting appreciate Hematology will transfer to stepdown continue PT/OT 01/18 chest tubes with minimal drainage both chest tubes removed without difficulty on 2 liter nasal cannula need aggressive PT/OT replace K+/ diuresis later if stable she will need SNF at discharge / very deconditioned will give ducolax supp / fleets today 01/19 need to be OOB, ambulate CXR noted , PTX stable 01/20 pt needs much encouragement to get OOB, ambulate, very weak recommended she agree to Bone marrow bx dressing in place left chest wall, some serous drainage on Room air very painful , depressed , may need psych eval will leave to PCP, ok to transfer out of [facility] will follow prn, she has outpt appointment for f/u in our office 01/23 left postero lateral chest incision with mild erythema nursing orders to paint bid with Betadine x 5 days OOB, ambulate, dc bangura cath if possible will sign off Objective: GENERAL: SKIN: Warm and dry. left postero lateral chest incision intact, mild erythema HEAD: Normocephalic. EYES: No scleral icterus. No injection or drainage. NECK: Supple, trachea midline. No JVD or lymphadenopathy. CARDIOVASCULAR: Regular rate and rhythm without murmurs, gallops, or rubs. RESPIRATORY: diminished in the bases Breath sounds equal bilaterally. No accessory muscle use. GASTROINTESTINAL: Abdomen soft, non-tender, nondistended. MUSCULOSKELETAL: No cyanosis, or edema. BACK: Nontender without obvious deformity. No CVA tenderness. Vital Signs Date Time Temp Pulse Resp B/P (MAP) Pulse Ox O2 Delivery O2 Flow Rate FiO2 01/23/17 09:30 25 01/23/17 09:00 95 01/23/17 08:00 92 01/23/17 07:00 99 01/23/17 07:00 97.4 106 20 158/85 (109) 97 01/23/17 06:00 100 01/23/17 05:04 100 01/23/17 04:00 93 01/23/17 03:04 97 01/23/17 03:00 97.5 95 20 153/77 (102) 94 01/23/17 02:03 91 01/23/17 01:00 93 01/23/17 00:00 94 01/22/17 23:00 98.0 91 16 137/78 (97) 97 01/22/17 23:00 98 01/22/17 22:04 21 01/22/17 22:00 91 01/22/17 21:00 93 01/22/17 20:00 101 01/22/17 19:00 98.0 105 20 137/73 (94) 95 01/22/17 19:00 92 01/22/17 19:00 Room Air 01/22/17 18:00 91 01/22/17 17:00 93 01/22/17 16:00 91 01/22/17 15:42 93 Room Air 01/22/17 15:42 97.8 117 20 116/71 (86) 93 01/22/17 15:00 113 01/22/17 14:00 99 01/22/17 13:00 91 01/22/17 12:00 92 01/22/17 11:15 100 Room Air 01/22/17 11:15 97.5 103 20 160/89 (112) 100 01/22/17 11:00 108 01/22/17 10:00 112 Result Diagram: 01/22/17 0552 01/22/17 05 (1) COPD (chronic obstructive pulmonary disease) Plan: on nebs, steroids needs aggressive pulm toileting (2) Tobacco abuse Plan: smoking cessation (3) Physical deconditioning Plan: pt / ot 7 days a week (4) Pleural effusion on left Plan: s/p left thoracoscopic exploration for loculated pleural effusion path negative for malignant cells cultures neg OOB PT/OT eval for rehab chest tubes removed encourage pt to ambulate more today s/p Bronch 01/16 ok to transfer out of [facility] (5) Pancytopenia Plan: appreciate hematology input --Pancytopenia with macrocytosis and normal B12. --suspect myelodysplastic syndrome until proven otherwise. --will need bone marrow biopsy and aspirate. (declining at this time) --iron studies are consistent with anemia of chronic disease --blood transfusion if the hemoglobin is less than 8 and platelet transfusion if the platelet count is less than 15 or any bleeding / per Heme Problem Qualifiers (1) COPD (chronic obstructive pulmonary disease): Qualified Codes: J43.1 - Panlobular emphysema Alda Mcclain Jan 23, 2017 10:00
--- NOTE | 2017-01-23 11:14 | HHI.PR ---
Subjective Remarks Patient seen and evaluated in follow-up for recovery status post thoracotomy. Respiratory status is improved. Incentive spirometry education provided the bedside Plan of care and update of her progress provided to spouse at bedside Objective Vitals Vital Signs Date Time Temp Pulse Resp B/P (MAP) Pulse Ox O2 Delivery O2 Flow Rate FiO2 01/23/17 10:00 97 01/23/17 09:30 25 01/23/17 09:00 95 01/23/17 08:00 92 01/23/17 07:00 99 01/23/17 07:00 97.4 106 20 158/85 (109) 97 01/23/17 06:00 100 01/23/17 05:04 100 01/23/17 04:00 93 01/23/17 03:04 97 01/23/17 03:00 97.5 95 20 153/77 (102) 94 01/23/17 02:03 91 01/23/17 01:00 93 01/23/17 00:00 94 01/22/17 23:00 98.0 91 16 137/78 (97) 97 01/22/17 23:00 98 01/22/17 22:04 21 01/22/17 22:00 91 01/22/17 21:00 93 01/22/17 20:00 101 01/22/17 19:00 98.0 105 20 137/73 (94) 95 01/22/17 19:00 92 01/22/17 19:00 Room Air 01/22/17 18:00 91 01/22/17 17:00 93 01/22/17 16:00 91 01/22/17 15:42 93 Room Air 01/22/17 15:42 97.8 117 20 116/71 (86) 93 01/22/17 15:00 113 01/22/17 14:00 99 01/22/17 13:00 91 01/22/17 12:00 92 01/22/17 11:15 100 Room Air 01/22/17 11:15 97.5 103 20 160/89 (112) 100 I/O 01/22/17 01/22/17 01/22/17 01/23/17 01/23/17 01/23/17 07:00 15:00 23:00 07:00 15:00 23:00 Intake Total 490 ml 960 ml 480 ml Output Total 860 ml 1100 ml 550 ml Balance -370 ml -140 ml -70 ml Intake Oral 490 ml 960 ml 480 ml Output Urine Total 860 ml 1100 ml 550 ml # Bowel Movements 2 1 Result Diagram: 01/22/17 0552 01/22/17 0522 Objective Remarks Diffuse petechia, left chest wall drain GENERAL: This is a frail female who appears older than stated age, comfortable in the chair CARDIOVASCULAR: Sinus rhythm without murmurs, gallops, or rubs. RESPIRATORY: Clear to auscultation. Breath sounds equal bilaterally. No wheezes , rales, or rhonchi. GASTROINTESTINAL: Abdomen soft, non-tender, nondistended. Normal active bowel sounds MUSCULOSKELETAL: Extremities without clubbing, cyanosis, or edema. NEURO: Alert & Oriented x4 to person, place, time, situation. Moves all ext x4 Procedures CT guided thoracentesis with L chest tube placement 12/29 Left thoracoscopic exploration, left thoracotomy for decortication, evacuation of complex loculated effusion, adhesiolysis 01/11/1701-15 INTUBATED 01-16 EXTUBATED 01-16 BRONCHOSCOPY WITH BAL OF LEFT SIDE A/P Problem List: (1) COPD (chronic obstructive pulmonary disease) ICD Code: J44.9 - Chronic obstructive pulmonary disease, unspecified Status: Chronic Plan: continue to wean oral steroids spiriva Follow-up with bronchodilators, pulmonary toilet Pulmonary consultation appreciated Not on home O2 and oxygenating well on room air (2) Pancytopenia ICD Code: D61.818 - Other pancytopenia Plan: Concern for mild dysplastic syndrome Patient has refused bone marrow biopsy Bone marrow slowly recovering Status post 3 units packed red blood cells in transfusion (3) UTI (urinary tract infection) ICD Code: N39.0 - Urinary tract infection, site not specified Status: Acute Plan: Klebsiella UTI, treated (4) Pleural effusion on left ICD Code: J90 - Pleural effusion, not elsewhere classified Status: Acute Plan: loculated s/p decortication/thoracotomy wound care to left chest cont pain management encourage pulmonary toilet (5) Urinary retention ICD Code: R33.9 - Retention of urine, unspecified (6) Physical deconditioning ICD Code: R53.81 - Other malaise Status: Chronic Plan: Patient agreeable to aggressive physical/occupational therapy Her heart rate and respiratory rate did go up although she remains with normal oxygenation (7) Aortic stenosis ICD Code: I35.0 - Nonrheumatic aortic (valve) stenosis Plan: Patient refuses any further workup EF is preserved on echo this admission Continue medical management of diuresis, low-salt diet, aggressive blood pressure management (8) Pulmonary HTN ICD Code: I27.20 - Pulmonary hypertension, unspecified Plan: Pulmonary artery pressure 63 mmHg on echo this admission Continue with medical management, supportive care and oxygen as needed Assessment and Plan DVT prophylaxis with teds and SCDs due to thrombocytopenia Discharge Planning Patient on telemetry floor to continue aggressive physical therapy May be candidate for jus bed at inpatient rehabilitation if continues to improve Otherwise will need to be home with family Problem Qualifiers (1) COPD (chronic obstructive pulmonary disease): Qualified Codes: J43.1 - Panlobular emphysema Estrellita Santiago MD Jan 23, 2017 11:14
--- NOTE | 2017-01-23 18:27 | HHI.PR ---
Subjective Remarks S/P thoracotomy and decortication .Feels tired. Labs were Stable. No fever. Objective Vital Signs Date Time Temp Pulse Resp B/P (MAP) Pulse Ox O2 Delivery O2 Flow Rate FiO2 01/23/17 18:00 101 01/23/17 17:37 18 01/23/17 17:00 100 01/23/17 16:00 99 01/23/17 15:00 91 01/23/17 15:00 98.3 99 16 130/74 (92) 96 01/23/17 14:00 93 01/23/17 13:00 118 01/23/17 12:00 107 01/23/17 11:00 98.5 105 23 152/96 (114) 98 01/23/17 11:00 86 01/23/17 10:00 97 01/23/17 09:00 95 01/23/17 08:00 92 01/23/17 07:00 99 01/23/17 07:00 97.4 106 20 158/85 (109) 97 01/23/17 06:00 100 01/23/17 05:04 100 01/23/17 04:00 93 01/23/17 03:04 97 01/23/17 03:00 97.5 95 20 153/77 (102) 94 01/23/17 02:03 91 01/23/17 01:00 93 01/23/17 00:00 94 01/22/17 23:00 98.0 91 16 137/78 (97) 97 01/22/17 23:00 98 01/22/17 22:04 21 01/22/17 22:00 91 01/22/17 21:00 93 01/22/17 20:00 101 01/22/17 19:00 98.0 105 20 137/73 (94) 95 01/22/17 19:00 92 01/22/17 19:00 Room Air I/O 01/22/17 01/22/17 01/22/17 01/23/17 01/23/17 01/23/17 07:00 15:00 23:00 07:00 15:00 23:00 Intake Total 490 ml 960 ml 480 ml 840 ml Output Total 860 ml 1100 ml 550 ml 550 ml Balance -370 ml -140 ml -70 ml 290 ml Intake Oral 490 ml 960 ml 480 ml 840 ml Output Urine Total 860 ml 1100 ml 550 ml 550 ml # Bowel Movements 2 1 1 Result Diagram: 01/22/17 0552 01/22/17 0522 Objective Remarks GENERAL: This is an averagely built middle-aged white female who is alert HEENT: Head normocephalic. Pupils are reactive and equal. Tongue moist. Throat is clear. NECK: Supple. No bruits, thyroid enlargement or lymphadenopathy. CHEST: Distant breath sounds at the left lung base and occ wheeze . HEART: The heart sounds are irregular, S1-S2. No murmur. No S3. ABDOMEN: Soft and nontender. No organomegaly. Bowel sounds are active. EXTREMITIES: Mild Edema with diminished peripheral pulses. NEUROLOGIC: Reflexes are 1+ . No deficits SKIN: Dry and scaly. Assessment and Plan Assessment and Plan IMPRESSION 1. COPD with acute exacerbation, resolved 2. S/p decortication left Chest 3. Atelectasis left lower lobe with mucus plugging. 4. Hyponatremia. 5. Abnormal liver enzymes 6. Anemia of chronic disease. Plan : 1. D/C O2 2. IS at bedside q3h 3. PT evaluation. 4. D/C Duoneb . 5. Prednisone 15 mg daily. 6. Add Spiriva , 1 cap daily 7. Home per Venessa Beck MD Jan 23, 2017 18:27
[2017-01-23] MEDS: PANTOPRAZOLE SOD 40 MG DELAYED RELEASE TAB PO SCH (20:56)
[2017-01-24] VITALS (18 sets, daily range): BP systolic 111–144; BP diastolic 74–85; PULSE 91–114; RESP 18; TEMP 97.5–98.5; O2SAT 98–100
[2017-01-24] MEDS: oxyCODONE/ACETAMINOPHEN 10 MG/325 MG TAB PO PRN ×4 (02:16→16:52)
[2017-01-24] MEDS: BETHANECHOL CHL 25 MG TAB PO SCH ×2 (03:57→12:45)
[2017-01-24 05:16] LABS: HEMATOCRIT 28.1 % (35.0-46.0); MEAN CELL VOLUME 103.1 FL (80.0-100.0); MEAN CORPUSCULAR HEMOGLOBIN 34.4 PG (27.0-34.0); MEAN CORPUSCULAR HGB CONC 33.4 % (32.0-36.0); PLATELET COUNT 101 TH/MM3 (150-450); RED BLOOD COUNT 2.72 MIL/MM3 (4.00-5.30); RED CELL DISTRIBUTION WIDTH 22.1 % (11.6-17.2); REVIEW FLAG FINAL; WHITE BLOOD COUNT 4.2 TH/MM3 (4.0-11.0)
[2017-01-24] MEDS: POTASSIUM PHOSPHATE/SODIUM PHOSPHATE 250 MG TAB PO SCH ×2 (06:15→12:45)
[2017-01-24] MEDS: CHLORHEXIDINE 0.12% (ORAL KIT) 15 ML CUP MT SCH (08:00)
[2017-01-24] MEDS: TIOTROPIUM BROMIDE 18 MCG INH INH SCH (08:44)
[2017-01-24] MEDS: POTASSIUM CHLORIDE 10 MEQ CONTROLLED RELEASE TAB PO SCH (08:46)
[2017-01-24] MEDS: TAMSULOSIN HCL 0.4 MG CAP PO SCH (08:47)
[2017-01-24] MEDS: FERROUS SULFATE 325 MG (65 MG ELEMENTAL IRON) TAB PO SCH (08:47)
[2017-01-24] MEDS: FUROSEMIDE 20 MG TAB PO SCH (08:47)
[2017-01-24] MEDS: LACTULOSE SYRUP 20 GM/30 ML CUP NG SCH (08:48)
[2017-01-24] MEDS: SODIUM CHLORIDE 0.9% FLUSH 5 ML FLUSH IV FLUSH SCH (08:48)
[2017-01-24] MEDS: DOCUSATE SODIUM 100 MG CAP PO SCH (08:48)
[2017-01-24] MEDS: POLYETHYLENE GLYCOL 17 GM PKG PO SCH (08:48)
[2017-01-24] MEDS ORDERED: predniSONE 5 MG TAB PO SCH (09:00)
--- NOTE | 2017-01-24 10:04 | HHI.FF ---
Face to Face Verification Diagnosis: (1) Atelectasis of left lung (2) Left thoracoscopic exploration, left thoracotomy for decortication, evacuation of complex loculated effusion, adhesiolysis (3) Pleural effusion on left Physical Therapy Order: Evaluate and Treat Occupational Therapy Order: Evaluate and Treat Home Health Nursing Order: Signs/symptoms of disease process Medication education-adverse effect Wound care and dressing changes Nursing assessment with vital signs Instructions: Thoracic Surgery patients Mandatory frequency Assess and evaluation, 2-3 x a week for one week Initial visit 1. Review post chest surgery instructions chest precautions, Activity, Elastic hose, Incision care, Driving, Incentive spirometry, Smoking, [place] , Work and other) 2. Need Betadine to paint incision 3. Medication reconciliation 4. Importance of follow up care/ check on appointments 5. Make calendar record temperature daily 6. When to call Home nurse, review instructions, phone list 7. Incentive Spirometry, demonstration Visit 1- Begin discharge instruction for patient family and/ or caregiver using teach back method- 1. Signs and symptoms of infection 2. Disease characteristics 3. Medicines and side effects 4. Foods and nutrition/ appetite 5. Infection control/ hand washing/ hygiene Visit 2- Continue teaching 1. Discharge instructions- include additional information on smoking cessation , Visit 3- Continue teaching- 1. Cough and deep breathing, incision monitoring. Incentive spirometry Q1 hr x 10, while awake, also use acapella device hourly whole awake chest wall Precautions: NO pushing or pulling, ( pt must use chest pillow to support chest with all activities and with coughing Daily incision care: ok to shower daily, no tub bath. Wash all incisions with liquid dial soap, clean wash cloth to each site, rinse and pat dry. Observe for any signs of infection, such as drainage which is dark yellow, dow, green or foul smelling. Immediately report to the surgeon any drainage from the chest incision, or legs, and for any abnormal drainage from the chest tube sites. Notify surgeon if any temp >101.5 degrees F. When specialty dressing removed/ or if you do not have one, continue to shower daily as above, then rinse and pat incision dry and paint with betadine daily x 5 days. Allow steri strips to fall off if you have any. Avoid lotions, creams, salves, oils, etc. for the first month For Dr. Recinos patients , please obtain PA & Lat CXR in 2 weeks, results to Dr. Recinos ( prescription will be given) ( ) (Tele: [phone]) , F/U appointment: as per CT instructions: PCP in 2 weeks, CV surgeon 2 weeks, theatre director 3-4 weeks For any questions regarding incisions/ dressing / meds / post op care or above Symptoms, Monday 8am-5pm Heart & Vascular Surgery Office ( Dr. Mejia & Dr. Recinos), After Hours / Nights (5pm -8am) Weekends and Holidays Please call [facility] ([facility]) Charge Nurse I have seen patient Alicia Fink on 01/24/17. My clinical findings support the need for the requested home health care services because: Patient has SOB Deconditioned w/ increased weakness I certify that my clinical findings support that this patient is homebound because: Post-op weakness Alda Mcclain Jan 24, 2017 10:04 Christopher Yun MD Jan 24, 2017 10:49
[2017-01-24] MEDS ORDERED: BETH25 PO (10:48)
[2017-01-24] MEDS ORDERED: TAMS5CAP PO (10:48)
[2017-01-24] MEDS ORDERED: FERR325T20 PO (10:51)
[2017-01-24] MEDS ORDERED: SPIRCAP INH (10:54)
[2017-01-24] MEDS ORDERED: VENTAER INH (10:54)
[2017-01-24] MEDS ORDERED: PRED5TAB PO (10:56)
[2017-01-24] MEDS ORDERED: OXYC1TAB36 PO (15:01)
--- NOTE | 2017-01-24 15:01 | HHI.DS ---
Discharge Summary Admission Date Dec 29, 2016 at 12:25 Discharge Date: Jan 24, 2017 Admitting Diagnosis respiratory distress, left pleural effusion, hyponatremia, elevated (1) COPD (chronic obstructive pulmonary disease) ICD Code: J44.9 - Chronic obstructive pulmonary disease, unspecified Status: Chronic (2) Pancytopenia ICD Code: D61.818 - Other pancytopenia (3) UTI (urinary tract infection) ICD Code: N39.0 - Urinary tract infection, site not specified Status: Acute (4) Pleural effusion on left ICD Code: J90 - Pleural effusion, not elsewhere classified Status: Acute (5) Urinary retention ICD Code: R33.9 - Retention of urine, unspecified (6) Physical deconditioning ICD Code: R53.81 - Other malaise Status: Chronic (7) Aortic stenosis ICD Code: I35.0 - Nonrheumatic aortic (valve) stenosis (8) Pulmonary HTN ICD Code: I27.20 - Pulmonary hypertension, unspecified Procedures CT guided thoracentesis with L chest tube placement 12/29 Left thoracoscopic exploration, left thoracotomy for decortication, evacuation of complex loculated effusion, adhesiolysis 01/11/1701-15 INTUBATED 01-16 EXTUBATED 01-16 BRONCHOSCOPY WITH BAL OF LEFT SIDE Brief History - From Admission The patient is a 56-year-old female with past medical history of COPD, who presented to [facility] ED with complaints of coughing, wheezing. The patient states that she had food poisoning last week where she had nausea and diarrhea, after she ate suspicious food. She denies any worsening of dyspnea from baseline. In addition, she denies any constitutional symptoms. She quit smoking five and a half years ago and used to smoke one to two packs per day for about 30 years. Chest x-ray in the ER showed consolidation with large effusion and volume loss on the left. On further history she denies any hemoptysis, however, she reports 20 pounds weight loss in the last 4 months and decreased p.o. intake. She is being followed up by Dr. Chung her outpatient web applications developer. The patient denies any use of oxygen at home, however, she is on bronchodilators p.r.n. Her laboratory data is significant for hyponatremia with sodium level 125, lactic acid level 2.1. On arrival to the ER she was tachycardic and tachypneic. When seen the patient is on 4 liters nasal cannula with saturation ranges between 95-100%. In the ER she was given Rocephin, azithromycin, Solu-Medrol, bronchodilator treatment and IV fluids. Her current blood pressure is 107/61. CBC/BMP: 01/24/17 0447 01/22/17 0522 Significant Findings Laboratory Tests Test 01/22/17 05:22 01/22/17 05:52 01/24/17 04:47 Creatinine 0.33 MG/DL (0.50-1.00) Total Protein 4.6 GM/DL (6.4-8.2) Albumin 2.2 GM/DL (3.4-5.0) Calcium Level 7.7 MG/DL (8.5-10.1) Alkaline Phosphatase 171 U/L (45-117) Carbon Dioxide Level 34.0 MEQ/L (21.0-32.0) Red Blood Count 2.70 MIL/MM3 (4.00-5.30) 2.72 MIL/MM3 (4.00-5.30) Hemoglobin 9.2 GM/DL (11.6-15.3) 9.4 GM/DL (11.6-15.3) Hematocrit 27.9 % (35.0-46.0) 28.1 % (35.0-46.0) Mean Corpuscular Volume 103.4 FL (80.0-100.0) 103.1 FL (80.0-100.0) Mean Corpuscular Hemoglobin 34.2 PG (27.0-34.0) 34.4 PG (27.0-34.0) Red Cell Distribution Width 21.6 % (11.6-17.2) 22.1 % (11.6-17.2) Platelet Count 77 TH/MM3 (150-450) 101 TH/MM3 (150-450) Neutrophils (%) (Auto) 76.9 % (16.0-70.0) Monocytes (%) (Auto) 10.6 % (0.0-8.0) Lymphocytes # (Auto) 0.5 TH/MM3 (1.0-4.8) Platelet Estimate LOW (NORMAL) PE at Discharge Diffuse petechia, left chest wall drain GENERAL: This is a frail female who appears older than stated age, comfortable in the chair CARDIOVASCULAR: Sinus rhythm without murmurs, gallops, or rubs. RESPIRATORY: Clear to auscultation. Breath sounds equal bilaterally. No wheezes , rales, or rhonchi. GASTROINTESTINAL: Abdomen soft, non-tender, nondistended. Normal active bowel sounds MUSCULOSKELETAL: Extremities without clubbing, cyanosis, or edema. NEURO: Alert & Oriented x4 to person, place, time, situation. Moves all ext x4 Transfer Summary The patient is a 56-year-old female with past medical history of COPD, who presented to [facility] ED with complaints of coughing, wheezing. The patient states that she had food poisoning last week where she had nausea and diarrhea, after she ate suspicious food. She denies any worsening of dyspnea from baseline. In addition, she denies any constitutional symptoms. She quit smoking five and a half years ago and used to smoke one to two packs per day for about 30 years. Chest x-ray in the ER showed consolidation with large effusion and volume loss on the left. On further history she denies any hemoptysis, however, she reports 20 pounds weight loss in the last 4 months and decreased p.o. intake. She is being followed up by Dr. Chung her outpatient web applications developer. The patient denies any use of oxygen at home, however, she is on bronchodilators p.r.n. Her laboratory data is significant for hyponatremia with sodium level 125, lactic acid level 2.1. On arrival to the ER she was tachycardic and tachypneic. When seen the patient is on 4 liters nasal cannula with saturation ranges between 95-100%. In the ER she was given Rocephin, azithromycin, Solu-Medrol, bronchodilator treatment and IV fluids. Her current blood pressure is 107/61. Subjective: 12/31 She complains of pain at chest tube site and requests increased pain meds. Repeat imaging ordered per pulmonology to evaluate mass vs loculated effusion. Pleural fluid studies exudative. Pleural fluid culture NGTD. On . Hospital Course Patient was admitted and started on IV antibiotics. On 12/[address] -guided thoracentesis for suspected loculated effusion and also had chest tube placement. As the patient was recovering, critical care was reconsult the for severe hypoxemic respiratory failure. On 01/11/17 patient had left thoracotomy for decortication, evacuation of complex loculated effusion, adhesiolysis by Dr. Gamboa. CXR 01/14/17 showed near complete whiteout of the left lung- pulmonary Dr. Ridley is following. Today a HALICAT was called as the patient was found profoundly hypoxemic in the 70s oxygen saturation. She was placed on 100% percent nonrebreather with improvement in saturation only to 81%. Stat ABG on 100% nonrebreather showed pH of 7.29 PCO2 of 62 pO2 of 53 and oxygen saturation 79%. Stat chest x-ray showed complete whiteout of the left lung. Patient was subsequently intubated and placed on mechanical ventilation. Patient underwent bronchoscopy the same day and underwent extubation later in the day after successfully tolerating CPAP weaning trials. She had undergone transfusion of 1 unit of blood shortly afterwards and was tolerating nasal cannula well. Eventually the patient was transitioned to room air and oral steroids. Her pleural fluid microbiology workup was negative as well as her blood cultures. -The patient was incidentally noted to have some Pancytopenia with macrocytosis and normal B12. The patient had refused a bone marrow biopsy as recommended by hematology to evaluate for possible myelodysplastic syndrome given that she had undergone a lot of procedures already. Patient was informed that she is to follow-up with multiple specialists including hematology oncology , pulmonology, and CV surgery. Patient has met maximal benefit from hospitalization and is clinically stable for discharge home with home PT and home care. \ Pt Condition on Discharge: Fair Discharge Disposition: Disch w/ Home Health Serv Discharge Time: > 30 minutes Discharge Instructions DIET: Follow Instructions for: As Tolerated, No Restrictions, High Protein Diet Activities you can perform: Full Weight Bearing, Shower Only-No Bath Activities to Avoid: Strenuous Activity, Driving Other Activity Instructions: no lifting > 8 lbs or gallon of milk Follow up Referrals: PCP Follow-up with [facility] Pulmonology with Venessa Chung MD Surgical with Josey Recinos MD New Medications: Albuterol 18 GM Inh (Ventolin Hfa 18 GM Inh) 90 Mcg/Act Aer 2 PUFF INH Q4-6H PRN for SHORTNESS OF BREATH, #1 INHALER 0 Refills Tiotropium Inh (Spiriva Handihaler) 18 Mcg Cap 18 MCG INH DAILY for COPD, #30 CAP 0 Refills 1 capsule = 18 mcg Bethanechol (Urecholine) 25 Mg Tab 25 MG PO Q8H for urinary retention, #90 TAB Ferrous Sulfate (Ferosul) 325 Mg (65 Mg Iron) Tablet 325 MG PO BID for anemia, #60 TAB Oxycodone HCl/Acetaminophen (Oxycodone-Acetaminophen 10-325) 10 Mg-325 Mg Tablet 1 TAB PO Q4H PRN for PAIN SCALE 5-10, #30 TAB Prednisone (Prednisone) 5 Mg Tab 3 TAB PO DAILY for copd, #90 TAB Tamsulosin (Flomax) 0.4 Mg Cap 0.4 MG PO DAILY for urinary retention, #30 CAP Continued Medications: Furosemide (Furosemide) 20 Mg Tab 20 MG PO DAILY, #30 TAB 0 Refills Christopher Yun MD Jan 24, 2017 15:01
== END 2017-01-24 17:01 | disposition home health service (06) | DRG 163 ==
LOC: NEPE 09:30 → NEDA 12:25 → HIME 15:55 → N04A 01-01 22:28 → HCPC 01-11 17:06 → HCVI 01-15 10:15 → HCPC 01-17 14:45
PROVIDERS: ADMIT Hospitalist; ATTEND Hospitalist
PROC: 0W9B3ZX Drainage of Left Pleural Cavity, Percutaneous Approach, Diagnostic (ICD-10-PCS; 2016-12-30)
PROC: 0W9B30Z Drainage of Left Pleural Cavity with Drainage Device, Percutaneous Approach (ICD-10-PCS; 2016-12-30)
PROC: 0BJQ4ZZ Inspection of Pleura, Percutaneous Endoscopic Approach (ICD-10-PCS; 2017-01-11)
PROC: 0BCP0ZZ Extirpation of Matter from Left Pleura, Open Approach (ICD-10-PCS; 2017-01-11)
PROC: 0W9B4ZX Drainage of Left Pleural Cavity, Percutaneous Endoscopic Approach, Diagnostic (ICD-10-PCS; 2017-01-11)
PROC: 30233N1 Transfusion of Nonautologous Red Blood Cells into Peripheral Vein, Percutaneous Approach (ICD-10-PCS; 2017-01-11)
PROC: 0BNG0ZZ Release Left Upper Lung Lobe, Open Approach (ICD-10-PCS; principal; 2017-01-11 15:49)
PROC: 5A1935Z Respiratory Ventilation, Less than 24 Consecutive Hours (ICD-10-PCS; 2017-01-15)
PROC: 0BH17EZ Insertion of Endotracheal Airway into Trachea, Via Natural or Artificial Opening (ICD-10-PCS; 2017-01-15)
PROC: 0BCB8ZZ Extirpation of Matter from Left Lower Lobe Bronchus, Via Natural or Artificial Opening Endoscopic (ICD-10-PCS; 2017-01-15)
PROC: 0BC88ZZ Extirpation of Matter from Left Upper Lobe Bronchus, Via Natural or Artificial Opening Endoscopic (ICD-10-PCS; 2017-01-15)
PROC: 0BC58ZZ Extirpation of Matter from Right Middle Lobe Bronchus, Via Natural or Artificial Opening Endoscopic (ICD-10-PCS; 2017-01-15)
PROC: 0BC68ZZ Extirpation of Matter from Right Lower Lobe Bronchus, Via Natural or Artificial Opening Endoscopic (ICD-10-PCS; 2017-01-15)
DX: J44.1 Chronic obstructive pulmonary disease with (acute) exacerbation (principal); J96.01 Acute respiratory failure with hypoxia; D61.818 Other pancytopenia; J90 Pleural effusion, not elsewhere classified; T17.890A Other foreign object in other parts of respiratory tract causing asphyxiation, initial encounter; E87.1 Hypo-osmolality and hyponatremia; N39.0 Urinary tract infection, site not specified; B96.1 Klebsiella pneumoniae [K. pneumoniae] as the cause of diseases classified elsewhere; J98.11 Atelectasis; D69.6 Thrombocytopenia, unspecified; I27.20 Pulmonary hypertension, unspecified; E87.6 Hypokalemia; I35.0 Nonrheumatic aortic (valve) stenosis; J92.9 Pleural plaque without asbestos; D63.8 Anemia in other chronic diseases classified elsewhere; D50.9 Iron deficiency anemia, unspecified; R74.8 Abnormal levels of other serum enzymes; I71.2 Thoracic aortic aneurysm, without rupture; E87.8 Other disorders of electrolyte and fluid balance, not elsewhere classified; E83.39 Other disorders of phosphorus metabolism; K59.00 Constipation, unspecified; R33.9 Retention of urine, unspecified; Z87.891 Personal history of nicotine dependence; M21.962 Unspecified acquired deformity of left lower leg; M21.961 Unspecified acquired deformity of right lower leg; Z80.1 Family history of malignant neoplasm of trachea, bronchus and lung
CPT/HCPCS: 31500; 32557; 36430; 36600; 51702; 51798; 71010; 71260; 74000; 76604; 76937; 80048; 80053; 81001; 82533; 82550; 82607; 82728; 82746; 82805; 82945; 82948; 83036; 83540; 83550; 83605; 83615; 83735; 83880; 83930; 83935; 83986; 84100; 84132; 84155; 84157; 84300; 84439; 84443; 84484; 85007; 85025; 85027; 85044; 85610; 85730; 86403; 86850; 86900; 86901; 86920; 87015; 87040; 87070; 87077; 87086; 87102; 87116; 87186; 87205; 87206; 87641; 87804; 88305; 89051; 93005; 93306; 94002; 94003; 94150; 94640; 94664; 94667; 94668; 96361; 96365; 96375; 99152; 99153; C1729; C9113; J0131; J0456; J0690; J0696; J1650; J1940; J2175; J2250; J2270; J2370; J2405; J2710; J2920; J2930; J3010; J3475; J3480; J7030; J7040; J7050; J7120; J7512; J7613; P9016; P9045; Q9967

== ENCOUNTER 2017-01-30 18:58 | Inpatient (IN) | payer SELFPAY ==
[~2017-01-30] VITALS: Ht 160 cm; Wt 61.9 kg
[~2017-01-30 18:58] MED LIST changes: -ALBU8I INH; +BETH25 PO; +FERR325T20 PO; -FURO20 PO; +FURO20TA PO; -IRON325T2 PO; -K-TA10TA5 PO; +OXYC1TAB36 PO; +PRED5TAB PO; -SENN1TAB11 PO; +SPIRCAP INH; +TAMS5CAP PO; +VENTAER INH
[2017-01-30 19:14] VITALS: RESP 16; O2SAT 97
[2017-01-30 19:23] VITALS: BP 119/76; PULSE 120; RESP 16; TEMP 98.1; O2SAT 100
[2017-01-30 20:18] LABS: AUTOMATED NEUTROPHIL # 2.5 TH/MM3 (1.8-7.7); BASOPHIL % 0.2 % (0.0-2.0); EOSINOPHIL % 0.1 % (0.0-4.0); HEMATOCRIT 27.8 % (35.0-46.0); LYMPH % 9.7 % (9.0-44.0); LYMPHOCYTE # 0.3 TH/MM3 (1.0-4.8); MEAN CELL VOLUME 103.6 FL (80.0-100.0); MEAN CORPUSCULAR HEMOGLOBIN 33.8 PG (27.0-34.0); MEAN CORPUSCULAR HGB CONC 32.6 % (32.0-36.0); MONO % 21.4 % (0.0-8.0); NEUT % 68.6 % (16.0-70.0); PLATELET COUNT 69 TH/MM3 (150-450); RED BLOOD COUNT 2.69 MIL/MM3 (4.00-5.30); RED CELL DISTRIBUTION WIDTH 20.9 % (11.6-17.2); WHITE BLOOD COUNT 3.6 TH/MM3 (4.0-11.0)
[2017-01-30 20:21] LABS: HEMO FLAGS AUTO DIFF
--- NOTE | 2017-01-30 20:21 | RADRPT ---
EXAM DATE/TIME: 01/30/2017 19:21 [facility] COMPARISON: CHEST SINGLE AP, January 19, 2017, 3:46. INDICATIONS : Chest pain, shortness of breath. MEDICAL HISTORY : Chronic obstructive pulmonary disease. SURGICAL HISTORY : Thoracotomy. ENCOUNTER: Initial ACUITY: 1 day PAIN SCORE: 2/10 LOCATION: Bilateral chest FINDINGS: A single view of the chest demonstrates improving aeration of the right hemithorax with decreasing in terstitial edema. No confluent infiltrate. However, there is persistent volume loss in the left hemit horax with dense consolidation possibly representing a loculated effusion. Right IJ central venous ca theter seen previously has been removed. CONCLUSION: 1. Improving aeration in the right hemithorax with interval resolution of the previously seen interst itial edema. No infiltrate on the right. 2. Persistent volume loss in the left hemithorax with near-complete opacification and probable associ ated effusion Yogesh Isbell MD on January 30, 2017 at 20:17 Board Certified Radiologist. This report was verified electronically.
[2017-01-30 20:34] LABS: BACTERIA, URINE MANY /hpf; BLOOD, URINE SMALL (NEG); COMMENT (UR) CULTURE INDICATED; CULTURE IF INDICATED CULTURE INDICATED; GLUCOSE,URINE NEG (NEG); KETONE, URINE NEG (NEG); NITRITE,URINE NEG (NEG); PH, URINE 6.5 (5.0-8.5); SQUAMOUS EPITHELIAL CELL URINE 3 /hpf (0-5); TRANSITIONAL EPI CELLS, URINE 1 /hpf; URINE COLOR YELLOW (YELLW/STRAW)
[2017-01-30 20:36] LABS: ALT (GPT) 11 U/L (10-53); ANION GAP 8 MEQ/L (5-15); AST (GOT) 12 U/L (15-37); BLOOD UREA NITROGEN 22 MG/DL (7-18); CHLORIDE 97 MEQ/L (98-107); GLOMERULAR FILTRATION RATE 78 ML/MIN (>89); POTASSIUM 3.3 MEQ/L (3.5-5.1); SODIUM (NA) 134 MEQ/L (136-145)
[2017-01-30 20:40] LABS: ALKALINE PHOSPHATASE 160 U/L (45-117); TOTAL BILIRUBIN ADULT 0.8 MG/DL (0.2-1.0)
[2017-01-30 20:41] LABS: CREATINE KINASE 12 U/L (26-192)
[2017-01-30 20:54] LABS: BANDS 23 % (0-6); NEUTROPHIL # MANUAL DIFF 2.8 TH/MM3 (1.8-7.7); POLYS (SEG NEUTROPHILS) 54 % (16-70); WBC DIFF SAMPLE 100
[2017-01-30 20:55] LABS: DOHLE BODIES PRESENT (NONE SEEN); PLATELET ESTIMATE SMEAR LOW (NORMAL); PLATELET MORPHOLOGY ENLARGED (NORMAL); SCAN/DIFF FINAL DIFF MANUAL
[2017-01-30] MEDS ORDERED: CEFEPIME INJ 2,000 MG in SODIUM CHLORIDE 0.9% INJ 100 ML IV ONE (21:15)
[2017-01-30] MEDS ORDERED: SODIUM CHLOR 0.9% 1000 ML INJ 1,000 ML IV ONE (21:15)
[2017-01-30] MEDS ORDERED: VANCOMYCIN INJ 1,000 MG in SODIUM CHLOR 0.9% 250 ML INJ 250 ML IV ONE (21:15)
[2017-01-30 22:11] VITALS: BP 141/82; PULSE 145; RESP 24; O2SAT 100
--- NOTE | 2017-01-30 22:14 | PD ---
HPI Chief Complaint: General Weakness Time Seen by Provider: 21:05 Travel History International Travel<30 days: No Contact w/Intl Traveler<30days: No Traveled to known affect area: No History of Present Illness HPI 56 YO F with PMH of COPD, recent left thoracotomy with pleurodesis by Dr. Perez presents to the ED by EMS for evaluation of weakness, SOB, urinary urgency x 3 days. Per EMS report the patient was found sitting in a chair in her own urine with lower extremity edema by her . Patient endorses swelling of the bilateral lower extremities. Patient denies fever, chills, chest pain, cough, abdominal pain, nausea, vomiting. She uses O2 at home. She has not had follow-up since discharge. PFSH Past Medical History Arthritis: No Asthma: No Autoimmune Disease: No Anxiety: No Depression: No Heart Rhythm Problems: No Cancer: No Cardiovascular Problems: No High Cholesterol: No Chemotherapy: No Chest Pain: No Congestive Heart Failure: No COPD: Yes Cerebrovascular Accident: No Diabetes: No Diminished Hearing: No Endocrine: No GERD: No Genitourinary: No Hiatal Hernia: No Immune Disorder: No Kidney Stones: No Musculoskeletal: No Neurologic: No Psychiatric: No Reproductive: No Respiratory: Yes Migraines: No Radiation Therapy: No Renal Failure: No Seizures: No Sickle Cell Disease: No Sleep Apnea: No Thyroid Disease: No Ulcer: No Tetanus Vaccination: Unknown Influenza Vaccination: No Menopausal: Yes Past Surgical History Abdominal Surgery: No AICD: No Arteriovenous Shunt: No Cardiac Surgery: No Ear Surgery: No Endocrine Surgery: No Eye Surgery: No Genitourinary Surgery: No Gynecologic Surgery: No Insulin Pump: No Joint Replacement: No Oral Surgery: No Pacemaker: No Thoracic Surgery: No Social History Alcohol Use: Yes (OCC) Tobacco Use: No Substance Use: No Allergies-Medications (Allergen,Severity, Reaction): Coded Allergies: No Known Allergies (Verified , 12/29/16) Reported Meds & Prescriptions Reported Meds & Active Scripts Active Oxycodone-Acetaminophen 10-325 (Oxycodone HCl/Acetaminophen) 10 Mg-325 Mg Tablet 1 Tab PO Q4H PRN Prednisone 5 Mg Tab 3 Tab PO DAILY Ventolin Hfa 18 GM Inh (Albuterol Sulfate) 90 Mcg/Act Aer 2 Puff INH Q4-6H PRN Spiriva Handihaler (Tiotropium Inh) 18 Mcg Cap 18 Mcg INH DAILY 1 capsule = 18 mcg Ferosul (Ferrous Sulfate) 325 Mg (65 Mg Iron) Tablet 325 Mg PO BID Flomax (Tamsulosin HCl) 0.4 Mg Cap 0.4 Mg PO DAILY Urecholine (Bethanechol Chloride) 25 Mg Tab 25 Mg PO Q8H Reported Furosemide 20 Mg Tab 20 Mg PO DAILY Review of Systems Except as stated in HPI: all other systems reviewed are Neg Physical Exam Narrative GENERAL: Pale, chronically ill-appearing white female on 2 L by nasal cannula, in no acute distress. SKIN: Focused skin assessment warm/dry. Petechiae and ecchymosis noted over the skin surface. 9 cm surgical wound on the left posterior back, well healing without signs of infection. 1 cm area of superficial dehiscence noted on the medial aspect of the wound. Chest tube sites on the left anterior lateral chest also without signs of infection. Lateral wound open, small amount of serosanguineous drainage noted. HEAD: Normocephalic. EYES: No scleral icterus. No injection or drainage. NECK: Supple, trachea midline. No JVD or lymphadenopathy. CARDIOVASCULAR: Regular rate and rhythm without murmurs, gallops, or rubs. RESPIRATORY: Breath sounds diminished on the left. She was speaking in short sentences. + accessory muscle use. GASTROINTESTINAL: Abdomen soft, non-tender, nondistended. Active bowel sounds. MUSCULOSKELETAL: No cyanosis. 2+ edema to the knees bilaterally. BACK: Nontender without obvious deformity. No CVA tenderness. Data Data Last Documented VS Vital Signs Date Time Temp Pulse Resp B/P (MAP) Pulse Ox O2 Delivery O2 Flow Rate FiO2 01/31/17 02:16 111 20 121/70 (87) 100 Nasal Cannula 2.00 01/30/17 19:23 98.1 Orders Orders Electrocardiogram (01/30/17 19:11) Complete Blood Count With Diff (01/30/17 19:11) Ckmb (Isoenzyme) Profile (01/30/17 19:11) Troponin I (01/30/17 19:11) Chest, Single Ap (01/30/17 19:11) Iv Access Insert/Monitor (01/30/17 19:11) Ecg Monitoring (01/30/17 19:11) Oxygen Administration (01/30/17 19:11) Oximetry (01/30/17 19:11) B-Type Natriuretic Peptide (01/30/17 19:11) Lactic Acid (01/30/17 19:11) Comprehensive Metabolic Panel (01/30/17 19:11) Coag Profile (01/30/17 19:39) Urinalysis - C+S If Indicated (01/30/17 19:52) Urine Culture (01/30/17 19:50) Sodium Chlor 0.9% 1000 Ml Inj (Ns 1000 M (01/30/17 21:15) Blood Culture (01/30/17 21:11) Cefepime Inj (Maxipime Inj) (01/30/17 21:15) Vancomycin Inj (Vancomycin Inj) (01/30/17 21:15) Ipratropium Neb (Atrovent Neb) (01/30/17 22:15) Furosemide Inj (Lasix Inj) (01/30/17 22:30) Potassium Chloride (Kcl) (01/30/17 22:30) Admit Order (Ed Use Only) (01/31/17 04:21) Labs Laboratory Tests Test 01/30/17 19:37 01/30/17 19:50 White Blood Count 3.6 TH/MM3 Red Blood Count 2.69 MIL/MM3 Hemoglobin 9.1 GM/DL Hematocrit 27.8 % Mean Corpuscular Volume 103.6 FL Mean Corpuscular Hemoglobin 33.8 PG Mean Corpuscular Hemoglobin Concent 32.6 % Red Cell Distribution Width 20.9 % Platelet Count 69 TH/MM3 Mean Platelet Volume 9.2 FL Neutrophils (%) (Auto) 68.6 % Lymphocytes (%) (Auto) 9.7 % Monocytes (%) (Auto) 21.4 % Eosinophils (%) (Auto) 0.1 % Basophils (%) (Auto) 0.2 % Neutrophils # (Auto) 2.5 TH/MM3 Lymphocytes # (Auto) 0.3 TH/MM3 Monocytes # (Auto) 0.8 TH/MM3 Eosinophils # (Auto) 0.0 TH/MM3 Basophils # (Auto) 0.0 TH/MM3 CBC Comment AUTO DIFF Differential Total Cells Counted 100 Neutrophils % (Manual) 54 % Band Neutrophils % 23 % Lymphocytes % 10 % Monocytes % 13 % Neutrophils # (Manual) 2.8 TH/MM3 Differential Comment FINAL DIFF MANUAL Dohle Bodies PRESENT Platelet Estimate LOW Platelet Morphology Comment ENLARGED Blood Urea Nitrogen 22 MG/DL Creatinine 0.77 MG/DL Random Glucose 82 MG/DL Total Protein 5.7 GM/DL Albumin 2.0 GM/DL Calcium Level 8.2 MG/DL Alkaline Phosphatase 160 U/L Aspartate Amino Transf (AST/SGOT) 12 U/L Alanine Aminotransferase (ALT/SGPT) 11 U/L Total Bilirubin 0.8 MG/DL Sodium Level 134 MEQ/L Potassium Level 3.3 MEQ/L Chloride Level 97 MEQ/L Carbon Dioxide Level 29.0 MEQ/L Anion Gap 8 MEQ/L Estimat Glomerular Filtration Rate 78 ML/MIN Lactic Acid Level 0.9 mmol/L Total Creatine Kinase 12 U/L Troponin I 0.10 NG/ML B-Type Natriuretic Peptide 528 PG/ML Urine Color YELLOW Urine Turbidity CLOUDY Urine pH 6.5 Urine Specific [place] 1.016 Urine Protein 30 mg/dL Urine Glucose (UA) NEG mg/dL Urine Ketones NEG mg/dL Urine Occult Blood SMALL Urine Nitrite NEG Urine Bilirubin NEG Urine Urobilinogen LESS THAN 2.0 MG/DL Urine Leukocyte Esterase LARGE Urine RBC 4 /hpf Urine WBC /hpf Urine WBC Clumps MANY Urine Squamous Epithelial Cells 3 /hpf Urine Transitional Epithelial Cells 1 /hpf Urine Bacteria MANY /hpf Microscopic Urinalysis Comment CULTURE INDICATED MDM Medical Decision Making Medical Screen Exam Complete: Yes Emergency Medical Condition: Yes Differential Diagnosis PNA versus wound infection versus UTI versus PE versus CHF versus other Narrative Course 56 YO F with PMH of COPD, recent left thoracotomy with pleurodesis by Dr. Perez presents to the ED by EMS for evaluation of weakness, SOB, urinary urgency x 3 days. Per EMS report the patient was found sitting in a chair in her own urine with lower extremity edema by her . Patient endorses swelling of the bilateral lower extremities. Patient denies fever, chills, chest pain, cough, abdominal pain, nausea, vomiting. She uses O2 at home. Vitals reviewed. Temp 98.1. Pulse 120, BP 119/76, O2 97% on room air on presentation. Physical exam reveals pale, ill-appearing white female, wearing 2 L by nasal cannula, speaking in short sentences, in no acute distress. No signs of infection of the surgical wounds. Lung sounds diminished on the left. Abdomen soft and nontender. 2+ pitting edema in the lower extremity bilaterally. The vascular access team was consulted to place an IV after the nurse tried multiple approaches unsuccessfully. Blood cultures were obtained. Patient was administered Atrovent nebulizer 1. EKG rate 114, sinus tachycardia with PVCs. KS interval is 137, QRS 73, QTC 367. Normal axis. No acute ST changes. Reviewed by Dr. Melvin. CBC: WBC 3.6. Hemoglobin 9.1. Hematocrit 27.8. CMP: Sodium 134, chloride 97, potassium 3.3. BUN 22, creatinine 0.77. Lactic acid 0.9. Potassium 8.2. Cardiac enzymes: troponin 0.10. BNP 528. Albumin 2.0. UA: Cloudy, small occult blood, large leukocyte esterase, 4 rbc's, innumerable WBCs, many clumps, many bacteria. Culture pending. I discussed the patient with Dr. Melvin who recommends IV cefepime and vancomycin. Patient was also administered 40 mEq potassium by mouth, 40 mg grams of Lasix IV. CTA pending at end of shift. Patient signed out to Dr. Melvin. Please see his note for disposition. Vandana Freeman Jan 30, 2017 22:14
[2017-01-30] MEDS ORDERED: RESP: IPRATROPIUM 0.5 MG/2.5 ML NEB NEB ONE (22:15)
[2017-01-30 22:28] VITALS: O2SAT 100
[2017-01-30] MEDS ORDERED: POTASSIUM CHLORIDE 20 MEQ CONTROLLED RELEASE TAB PO ONE (22:30)
[2017-01-30] MEDS ORDERED: FUROSEMIDE 40 MG/4 ML VIAL IV PUSH ONE (22:30)
[2017-01-31] VITALS (12 sets, daily range): BP systolic 80–124; BP diastolic 50–73; PULSE 100–163; RESP 18–24; TEMP 96.6–98.8; O2SAT 94–100
--- NOTE | 2017-01-31 04:25 | PD ---
Physical Exam Narrative Patient was seen by my licensed investment sales assistant and myself. Data Data Last Documented VS Vital Signs Date Time Temp Pulse Resp B/P (MAP) Pulse Ox O2 Delivery O2 Flow Rate FiO2 01/31/17 02:16 111 20 121/70 (87) 100 Nasal Cannula 2.00 01/30/17 19:23 98.1 Orders Orders Electrocardiogram (01/30/17 19:11) Complete Blood Count With Diff (01/30/17 19:11) Ckmb (Isoenzyme) Profile (01/30/17 19:11) Troponin I (01/30/17 19:11) Chest, Single Ap (01/30/17 19:11) Iv Access Insert/Monitor (01/30/17 19:11) Ecg Monitoring (01/30/17 19:11) Oxygen Administration (01/30/17 19:11) Oximetry (01/30/17 19:11) B-Type Natriuretic Peptide (01/30/17 19:11) Lactic Acid (01/30/17 19:11) Comprehensive Metabolic Panel (01/30/17 19:11) Coag Profile (01/30/17 19:39) Urinalysis - C+S If Indicated (01/30/17 19:52) Urine Culture (01/30/17 19:50) Sodium Chlor 0.9% 1000 Ml Inj (Ns 1000 M (01/30/17 21:15) Blood Culture (01/30/17 21:11) Cefepime Inj (Maxipime Inj) (01/30/17 21:15) Vancomycin Inj (Vancomycin Inj) (01/30/17 21:15) Ipratropium Neb (Atrovent Neb) (01/30/17 22:15) Furosemide Inj (Lasix Inj) (01/30/17 22:30) Potassium Chloride (Kcl) (01/30/17 22:30) Vascular Access Team Consult/P PRN (01/30/17 22:35) Vascular Poc Ultrasound (01/30/17 ) Admit Order (Ed Use Only) (01/31/17 04:21) Labs Laboratory Tests Test 01/30/17 19:37 01/30/17 19:50 White Blood Count 3.6 TH/MM3 Red Blood Count 2.69 MIL/MM3 Hemoglobin 9.1 GM/DL Hematocrit 27.8 % Mean Corpuscular Volume 103.6 FL Mean Corpuscular Hemoglobin 33.8 PG Mean Corpuscular Hemoglobin Concent 32.6 % Red Cell Distribution Width 20.9 % Platelet Count 69 TH/MM3 Mean Platelet Volume 9.2 FL Neutrophils (%) (Auto) 68.6 % Lymphocytes (%) (Auto) 9.7 % Monocytes (%) (Auto) 21.4 % Eosinophils (%) (Auto) 0.1 % Basophils (%) (Auto) 0.2 % Neutrophils # (Auto) 2.5 TH/MM3 Lymphocytes # (Auto) 0.3 TH/MM3 Monocytes # (Auto) 0.8 TH/MM3 Eosinophils # (Auto) 0.0 TH/MM3 Basophils # (Auto) 0.0 TH/MM3 CBC Comment AUTO DIFF Differential Total Cells Counted 100 Neutrophils % (Manual) 54 % Band Neutrophils % 23 % Lymphocytes % 10 % Monocytes % 13 % Neutrophils # (Manual) 2.8 TH/MM3 Differential Comment FINAL DIFF MANUAL Dohle Bodies PRESENT Platelet Estimate LOW Platelet Morphology Comment ENLARGED Blood Urea Nitrogen 22 MG/DL Creatinine 0.77 MG/DL Random Glucose 82 MG/DL Total Protein 5.7 GM/DL Albumin 2.0 GM/DL Calcium Level 8.2 MG/DL Alkaline Phosphatase 160 U/L Aspartate Amino Transf (AST/SGOT) 12 U/L Alanine Aminotransferase (ALT/SGPT) 11 U/L Total Bilirubin 0.8 MG/DL Sodium Level 134 MEQ/L Potassium Level 3.3 MEQ/L Chloride Level 97 MEQ/L Carbon Dioxide Level 29.0 MEQ/L Anion Gap 8 MEQ/L Estimat Glomerular Filtration Rate 78 ML/MIN Lactic Acid Level 0.9 mmol/L Total Creatine Kinase 12 U/L Troponin I 0.10 NG/ML B-Type Natriuretic Peptide 528 PG/ML Urine Color YELLOW Urine Turbidity CLOUDY Urine pH 6.5 Urine Specific [place] 1.016 Urine Protein 30 mg/dL Urine Glucose (UA) NEG mg/dL Urine Ketones NEG mg/dL Urine Occult Blood SMALL Urine Nitrite NEG Urine Bilirubin NEG Urine Urobilinogen LESS THAN 2.0 MG/DL Urine Leukocyte Esterase LARGE Urine RBC 4 /hpf Urine WBC /hpf Urine WBC Clumps MANY Urine Squamous Epithelial Cells 3 /hpf Urine Transitional Epithelial Cells 1 /hpf Urine Bacteria MANY /hpf Microscopic Urinalysis Comment CULTURE INDICATED MDM Supervised Visit with NILES: Yes Diagnosis Primary Impression: UTI (urinary tract infection) Qualified Codes: N30.00 - Acute cystitis without hematuria Additional Impressions: Bandemia Physical deconditioning Admitting Information Admitting Physician Requests: Admit Anatoliy Melvin MD Jan 31, 2017 04:25
[2017-01-31] MEDS ORDERED: ONDANSETRON HCL 4 MG/2 ML VIAL IVP PRN (04:45)
[2017-01-31] MEDS ORDERED: LACTULOSE SYRUP 20 GM/30 ML CUP PO PRN (04:45)
[2017-01-31] MEDS ORDERED: ACETAMINOPHEN 325 MG TAB PO PRN (04:45)
[2017-01-31] MEDS ORDERED: MAGNESIUM HYDROXIDE SUSP 30 ML CUP PO PRN (04:45)
[2017-01-31] MEDS ORDERED: SENNOSIDES 8.6 MG TAB PO PRN (04:45)
[2017-01-31] MEDS ORDERED: SODIUM CHLORIDE 0.9% FLUSH 10 ML FLUSH IV FLUSH PRN (04:45)
[2017-01-31] MEDS ORDERED: BISACODYL 10 MG SUPP RECTAL PRN (04:45)
[2017-01-31] MEDS ORDERED: NALOXONE HCL 0.4 MG/ML AMP IV PUSH PRN (04:45)
[2017-01-31] MEDS ORDERED: RESP: ALBUTEROL 2.5 MG/IPRATROPIUM 0.5 MG NEB (PRN) NEB (04:45)
[2017-01-31] MEDS: CIPROFLOXACIN 400 MG PREMIX 200 ML IV SCH ×2 (06:19→20:00)
[2017-01-31] MEDS: BETHANECHOL CHL 25 MG TAB PO SCH ×3 (06:19→20:46)
[2017-01-31] MEDS: ENOXAPARIN SODIUM 40 MG/0.4 ML SYRINGE SQ SCH (06:20)
[2017-01-31] MEDS ORDERED: POTASSIUM CHLORIDE 10 MEQ CAP PO SCH (09:00)
[2017-01-31] MEDS: oxyCODONE/ACETAMINOPHEN 10 MG/325 MG TAB PO PRN ×2 (09:24→13:24)
[2017-01-31] MEDS: TIOTROPIUM BROMIDE 18 MCG INH INH SCH (09:25)
[2017-01-31] MEDS: FUROSEMIDE 20 MG/2 ML VIAL IV PUSH SCH ×2 (09:26→18:00)
[2017-01-31] MEDS: predniSONE 5 MG TAB PO SCH (09:27)
[2017-01-31] MEDS: FERROUS SULFATE 325 MG (65 MG ELEMENTAL IRON) TAB PO SCH ×2 (09:27→20:45)
[2017-01-31] MEDS: TAMSULOSIN HCL 0.4 MG CAP PO SCH (09:27)
[2017-01-31] MEDS: SODIUM CHLORIDE 0.9% FLUSH 10 ML FLUSH IV FLUSH SCH ×2 (09:28→20:46)
--- NOTE | 2017-01-31 09:53 | HHI.HP ---
HPI Service [facility] Primary Care Physician Venessa Chung MD Admission Diagnosis UTI. Dependent edema. Diagnoses: Chief Complaint: Bilateral lower extremity swelling Travel History International Travel<30 Days: No Contact w/Intl Traveler <30 Da: No Traveled to Known Affected Are: No Sepsis Criteria SIRS Criteria (2 or more): Heart rate over 90, RR > 20 or PaCO2 < 32 Sepsis Criteria (SIRS+source): Infect source susp/known Criteria Outcome: Meets sepsis criteria History of Present Illness This is a 56-year-old female who presents to the emergency department complaining of worsening bilateral lower extremity swelling since she was discharged [place] [facility] [place] being treated for left pleural effusion status post thoracotomy. She has history of chronic bilateral lower extremity lymphedema and admits noncompliance to medications and salt restriction. She also reports of generalized weakness and difficulty holding her urine. She has UTI and has been started on ciprofloxacin. Her telemetry shows sinus tachycardia but denies chest pain and palpitations. She has dyspnea on exertion unchanged from previous from history of COPD. At this time she has no other complaints. All other systems reviewed negative Review of Systems Except as stated in HPI: all other systems reviewed are Neg Past Family Social History Past Medical History History of chronic respiratory failure on home oxygen, pancytopenia refused bone marrow biopsy, aortic stenosis and pulmonary hypertension on recent echocardiogram Past Surgical History As previously mentioned Reported Medications Oxycodone-Acetaminophen 10-325 (Oxycodone HCl/Acetaminophen) 10 Mg-325 Mg Tablet 1 Tab PO Q4H PRN Prednisone 5 Mg Tab 3 Tab PO DAILY Ventolin Hfa 18 GM Inh (Albuterol Sulfate) 90 Mcg/Act Aer 2 Puff INH Q4-6H PRN Spiriva Handihaler (Tiotropium Inh) 18 Mcg Cap 18 Mcg INH DAILY 1 capsule = 18 mcg Ferosul (Ferrous Sulfate) 325 Mg (65 Mg Iron) Tablet 325 Mg PO BID Flomax (Tamsulosin HCl) 0.4 Mg Cap 0.4 Mg PO DAILY Urecholine (Bethanechol Chloride) 25 Mg Tab 25 Mg PO Q8H Reported Furosemide 20 Mg Tab 20 Mg PO DAILY Allergies: Coded Allergies: No Known Allergies (Verified , 12/29/16) Family History Lung cancer Social History Does not smoke. Occasional alcohol use Physical Exam Vital Signs Vital Signs Date Time Temp Pulse Resp B/P (MAP) Pulse Ox O2 Delivery O2 Flow Rate FiO2 01/31/17 06:29 98.8 113 18 104/69 (81) 100 01/31/17 06:15 01/31/17 05:31 126 24 124/71 (88) 98 Nasal Cannula 2.00 01/31/17 02:16 111 20 121/70 (87) 100 Nasal Cannula 2.00 01/30/17 22:28 100 Nasal Cannula 2.00 01/30/17 22:11 145 24 141/82 (101) 100 2.00 01/30/17 19:23 98.1 120 16 119/76 (90) 100 01/30/17 19:14 16 97 Room Air 01/30/17 19:14 97 Room Air Physical Exam GENERAL: This is a well-nourished, well-developed patient, in no apparent distress. SKIN: No rashes, ecchymoses or lesions. Cool and dry. Incision sites left hemithorax clearing of infection HEAD: Atraumatic. Normocephalic. No temporal or scalp tenderness. EYES: Pupils equal round and reactive. Extraocular motions intact. No scleral icterus. No injection or drainage. ENT: Nose without bleeding, purulent drainage or septal hematoma. Throat without erythema, tonsillar hypertrophy or exudate. Uvula midline. Airway patent. NECK: Trachea midline. No JVD or lymphadenopathy. Supple, nontender, no meningeal signs. CARDIOVASCULAR: Tachycardic with skipped beats withou gallops, or rubs. Systolic murmur noted RESPIRATORY: Decreased breath sounds worse on the left. No wheezes, rales, or rhonchi. GASTROINTESTINAL: Abdomen soft, non-tender, nondistended. No guarding. MUSCULOSKELETAL: Extremities without clubbing, cyanosis with bilateral lower extremity pitting edema. No joint tenderness, effusion, or edema noted. No calf tenderness. Negative Homans sign bilaterally. NEUROLOGICAL: Awake and alert. Cranial nerves II through XII intact. Motor and sensory grossly within normal limits. Five out of 5 muscle strength in all muscle groups. Normal speech. Laboratory Laboratory Tests Test 01/30/17 19:37 01/30/17 19:50 White Blood Count 3.6 Red Blood Count 2.69 Hemoglobin 9.1 Hematocrit 27.8 Mean Corpuscular Volume 103.6 Mean Corpuscular Hemoglobin 33.8 Mean Corpuscular Hemoglobin Concent 32.6 Red Cell Distribution Width 20.9 Platelet Count 69 Mean Platelet Volume 9.2 Neutrophils (%) (Auto) 68.6 Lymphocytes (%) (Auto) 9.7 Monocytes (%) (Auto) 21.4 Eosinophils (%) (Auto) 0.1 Basophils (%) (Auto) 0.2 Neutrophils # (Auto) 2.5 Lymphocytes # (Auto) 0.3 Monocytes # (Auto) 0.8 Eosinophils # (Auto) 0.0 Basophils # (Auto) 0.0 CBC Comment AUTO DIFF Differential Total Cells Counted 100 Neutrophils % (Manual) 54 Band Neutrophils % 23 Lymphocytes % 10 Monocytes % 13 Neutrophils # (Manual) 2.8 Differential Comment FINAL DIFF MANUAL Dohle Bodies PRESENT Platelet Estimate LOW Platelet Morphology Comment ENLARGED Blood Urea Nitrogen 22 Creatinine 0.77 Random Glucose 82 Total Protein 5.7 Albumin 2.0 Calcium Level 8.2 Alkaline Phosphatase 160 Aspartate Amino Transf (AST/SGOT) 12 Alanine Aminotransferase (ALT/SGPT) 11 Total Bilirubin 0.8 Sodium Level 134 Potassium Level 3.3 Chloride Level 97 Carbon Dioxide Level 29.0 Anion Gap 8 Estimat Glomerular Filtration Rate 78 Lactic Acid Level 0.9 Total Creatine Kinase 12 Troponin I 0.10 B-Type Natriuretic Peptide 528 Urine Color YELLOW Urine Turbidity CLOUDY Urine pH 6.5 Urine Specific [place] 1.016 Urine Protein 30 Urine Glucose (UA) NEG Urine Ketones NEG Urine Occult Blood SMALL Urine Nitrite NEG Urine Bilirubin NEG Urine Urobilinogen LESS THAN 2.0 Urine Leukocyte Esterase LARGE Urine RBC 4 Urine WBC Urine WBC Clumps MANY Urine Squamous Epithelial Cells 3 Urine Transitional Epithelial Cells 1 Urine Bacteria MANY Microscopic Urinalysis Comment CULTURE INDICATED Date/Time Source Procedure Growth Status 01/30/17 21:45 Blood Line Aerobic Blood Culture Pending Received 01/30/17 21:45 Blood Line Anaerobic Blood Culture Pending Received 01/30/17 19:50 Urine Random Urine Urine Culture Pending Received Result Diagram: 01/30/17193601/30/171936 Imaging Last Impressions Chest X-Ray 01/30/171910 Signed Impressions: Service Date/Time: Monday, January 30, 2017 19:21 - CONCLUSION: 1. Improving aeration in the right hemithorax with interval resolution of the previously seen interstitial edema. No infiltrate on the right. 2. Persistent volume loss in the left hemithorax with near-complete opacification and probable associated effusion MD Shae Jessicai VTE Risk Assessment Caprini VTE Risk Assessment: Mod/High Risk (score >= 2) Caprini Risk Assessment Model Point Value = 1 Point Value = 2 Point Value = 3 Point Value = 5 Age 41-60 Minor surgery BMI > 25 kg/m2 Swollen legs Varicose veins or History of unexplained or recurrent spontaneous Oral contraceptives or hormone replacement Sepsis (< 1 month) Serious lung disease, including pneumonia (< 1 month) Abnormal pulmonary function Acute myocardial infarction Congestive heart failure (< 1 month) History of inflammatory bowel disease Medical patient at bed rest Age 61-74 Arthroscopic surgery Major open surgery (> 45 min) Laparoscopic surgery (> 45 min) Malignancy Confined to bed (> 72 hours) Immobilizing plaster cast Central venous access Age >= 75 History of VTE Family history of VTE Factor V Leiden Prothrombin [id number] Lupus anticoagulant Anticardiolipin antibodies Elevated serum homocysteine Heparin-induced thrombocytopenia Other congenital or acquired thrombophilia Stroke (< 1 month) Elective arthroplasty Hip, pelvis, or leg fracture Acute spinal cord injury (< 1 month) Prophylaxis Regimen Total Risk Factor Score Risk Level Prophylaxis Regimen 0-1 Low Early ambulation 2 Moderate Order ONE of the following: *Sequential Compression Device (SCD) *Heparin 5000 units SQ BID 3-4 Higher Order ONE of the following medications: *Heparin 5000 units SQ TID *Enoxaparin/Lovenox 40 mg SQ daily (WT < 150 kg, CrCl > 30 mL/min) *Enoxaparin/Lovenox 30 mg SQ daily (WT < 150 kg, CrCl > 10-29 mL/min) *Enoxaparin/Lovenox 30 mg SQ BID (WT < 150 kg, CrCl > 30 mL/min) AND/OR *Sequential Compression Device (SCD) 5 or more Highest Order ONE of the following medications: *Heparin 5000 units SQ TID (Preferred with Epidurals) *Enoxaparin/Lovenox 40 mg SQ daily (WT < 150 kg, CrCl > 30 mL/min) *Enoxaparin/Lovenox 30 mg SQ daily (WT < 150 kg, CrCl > 10-29 mL/min) *Enoxaparin/Lovenox 30 mg SQ BID (WT < 150 kg, CrCl > 30 mL/min) AND *Sequential Compression Device (SCD) Assessment and Plan Problem List: (1) UTI (urinary tract infection) ICD Code: N39.0 - Urinary tract infection, site not specified Status: Acute Assessment and Plan This is a 56-year-old female who presents to the emergency department complaining of worsening bilateral lower extremity swelling since she was discharged from [facility] after being treated for left pleural effusion status post thoracotomy. She has history of chronic bilateral lower extremity lymphedema and admits noncompliance to medications and salt restriction. Worsening bilateral lower extremity lymphedema secondary to noncompliance. Continue IV diuresis with Lasix and monitor renal function and electrolytes. Counseled. Discussed with pulmonary, he doesn't think it's cor pulmonale. Recent echocardiogram shows and pulmonary hypertension Sepsis secondary to UTI. Continue ciprofloxacin and monitor cultures. Sinus tachycardia which is multifactorial including conditions mentioned above, pain, electrolyte abnormalities and meds. She is asymptomatic. Will monitor on telemetry. Check TSH COPD, chronic respiratory failure and left pleural effusion status post thoracotomy. Continue nebulizations, oxygen and taper steroids. Pancytopenia. Evaluated by hematology during last hospitalization refused bone marrow biopsy Hypokalemia. Currently on potassium 20 mg 3 times a day supplementation. Repeat BMP and magnesium in the morning Deconditioning. Physical therapy evaluation Discontinue Cabrera catheter. Patient requesting to get Cabrera catheter today and will be discontinued tomorrow morning. Patient aware risk of infection Wound care DVT prophylaxis with Lovenox Discussed Condition With Patient, pulmonary and RN Physician Certification 2 Midnight Certification Type: Admission for Inpatient Services Order for Inpatient Services The services are ordered in accordance with Medicare regulations or non- Medicare payer requirements, as applicable. In the case of services not specified as inpatient-only, they are appropriately provided as inpatient services in accordance with the 2-midnight benchmark. Estimated LOS (days): 2 days is the estimated time the patient will need to remain in the hospital, assuming treatment plan goals are met and no additional complications. Post-Hospital Plan: Not yet determined Problem Qualifiers (1) UTI (urinary tract infection): Qualified Codes: N30.00 - Acute cystitis without hematuria Chung Yadav MD Jan 31, 2017 09:53
[2017-01-31 10:36] LABS: APTT (PATIENT) 46.4 SEC (24.3-30.1); INTERNATIONAL NORMALIZED RATIO 1.1 RATIO; PROTHROMBIN TIME - PATIENT 11.9 SEC (9.8-11.6)
[2017-01-31 10:49] LABS: BICARBONATE 30.4 MEQ/L (21.0-32.0); MAGNESIUM 1.5 MG/DL (1.5-2.5); POTASSIUM 3.1 MEQ/L (3.5-5.1)
--- NOTE | 2017-01-31 11:50 | PD.PN.STU ---
Subjective Remarks Patient is known from prior admission on 12/29/2016. On 12/[address] -guided thoracentesis for suspected loculated effusion and also had chest tube placement. On 01/11/17 patient had left thoracotomy for decortication, evacuation of complex loculated effusion, adhesiolysis by Dr. Gamboa. She was discharged on 01/24/2017. She most recently reported back to the hospital with a chief complaint of worsening bilateral, lower extremity edema. Admission workup was significant for a UTI as well. She was scheduled to be placed into rehabilitation but was unable to afford it because she is uninsured. She denies any shortness of breath at rest, wheezing, cough, chest pain, fever or chills, or costovertebral flank pain. Objective Vitals Vital Signs Date Time Temp Pulse Resp B/P (MAP) Pulse Ox O2 Delivery O2 Flow Rate FiO2 01/31/17 06:29 98.8 113 18 104/69 (81) 100 01/31/17 06:15 01/31/17 05:31 126 24 124/71 (88) 98 Nasal Cannula 2.00 01/31/17 02:16 111 20 121/70 (87) 100 Nasal Cannula 2.00 01/30/17 22:28 100 Nasal Cannula 2.00 01/30/17 22:11 145 24 141/82 (101) 100 2.00 01/30/17 19:23 98.1 120 16 119/76 (90) 100 01/30/17 19:14 16 97 Room Air 01/30/17 19:14 97 Room Air I/O 01/30/17 01/30/17 01/30/17 01/31/17 01/31/17 01/31/17 07:00 15:00 23:00 07:00 15:00 23:00 Intake Total 1100 ml 250 ml Balance 1100 ml 250 ml Intake IV Total 1100 ml 250 ml Result Diagram: 01/30/17 1937 01/31/17 0956 Other Results GENERAL: Well-nourished, well-developed patient. Lying in bed. SKIN: Warm and dry. She has multiple bruises in various stages of healing distributed throughout extremities. HEAD: Normocephalic. EYES: No scleral icterus. No injection or drainage. NECK: Supple, trachea midline. No JVD or lymphadenopathy. CARDIOVASCULAR: Regular rate and rhythm. S1 murmur best heard at R 2nd ICS. S2. No rubs or gallops. RESPIRATORY: Breath sounds equal bilaterally. Distant and diminished. Wheezing. Prolonged expirations. No crackles. GASTROINTESTINAL: Abdomen soft, non-tender, nondistended. EXTREMITIES: 3+ edema bilateral lower extremities. NEUROLOGICAL: Awake, alert, and oriented x 3. Imaging Last 24 hours Impressions Chest X-Ray 01/30/171910 Signed Impressions: Service Date/Time: Monday, January 30, 2017 19:21 - CONCLUSION: 1. Improving aeration in the right hemithorax with interval resolution of the previously seen interstitial edema. No infiltrate on the right. 2. Persistent volume loss in the left hemithorax with near-complete opacification and probable associated effusion Yogesh Isbell MD Medications and IVs Current Medications Medications (Trade) Dose Ordered Sig/Armin Route Start Time Stop Time Status Last Admin Ciprofloxacin/ Dextrose 200 ml @ 200 mls/hr Q12H IV 01/31/17 05:00 01/31/17 06:19 (Lasix Inj) 20 mg BID@09,18 IV PUSH 01/31/17 09:00 01/31/17 09:26 (KCl) 10 meq BID PO 01/31/17 09:00 01/31/17 09:26 (NS Flush) 2 ml UNSCH PRN IV FLUSH 01/31/17 04:45 (NS Flush) 2 ml BID IV FLUSH 01/31/17 09:00 01/31/17 09:28 (Tylenol) 650 mg Q4H PRN PO 01/31/17 04:45 (Zofran Inj) 4 mg Q6H PRN IVP 01/31/17 04:45 (Lovenox Inj) 40 mg Q24H SQ 01/31/17 06:00 01/31/17 06:20 (Narcan Inj) 0.4 mg UNSCH PRN IV PUSH 01/31/17 04:45 (Milk Of Magnesia Liq) 30 ml Q12H PRN PO 01/31/17 04:45 (Senokot) 17.2 mg Q12H PRN PO 01/31/17 04:45 (Dulcolax Supp) 10 mg DAILY PRN RECTAL 01/31/17 04:45 (Lactulose Liq) 30 ml DAILY PRN PO 01/31/17 04:45 (Urecholine) 25 mg Q8HR PO 01/31/17 06:00 01/31/17 06:19 (Ferrous Sulfate) 325 mg BID PO 01/31/17 09:00 01/31/17 09:27 (Percocet 10-325 Mg) 1 tab Q4H PRN PO 01/31/17 04:45 01/31/17 09:24 (Deltasone) 15 mg DAILY PO 01/31/17 09:00 01/31/17 09:27 (Flomax) 0.4 mg DAILY PO 01/31/17 09:00 01/31/17 09:27 (Spiriva Inh) 18 mcg DAILY INH 01/31/17 09:00 01/31/17 09:25 (Duoneb Neb) 1 ampule Q4HR NEB PRN NEB 01/31/17 04:45 A/P Assessment and Plan IMPRESSION 1. COPD with acute exacerbation, resolved 2. S/p decortication left Chest 3. Atelectasis left lower lobe with mucus plugging. 4. UTI 5. Pleural effusion 6. Lower extremity edema, improving 7. Anemia of chronic disease PLAN 1. Gloria Hammond Jan 31, 2017 11:50
[2017-01-31] MEDS: POTASSIUM CHLORIDE 10 MEQ CAP PO SCH ×2 (13:12→17:57)
--- NOTE | 2017-01-31 14:48 | EKG ---
Date Performed: 01/31/2017 Time Performed: 09:39:14 PTAGE: 56 years EKG: Sinus tachycardia with PVC(s) with PAC(s). Lead(s) unsuitable for analysis: V2 V5 Poor R wa ve progression - probable normal variant Anterolateral T wave changes are nonspecific Borderline ECG This is an incomplete EKG and needs to be repeated. DOCTOR: Oleg Adkins Interpretating Date/Time 01/31/2017 14:47:25
[2017-01-31] MEDS ORDERED: POTASSIUM CHLOR 20 MEQ PREMIX 100 ML IV STA (15:02)
[2017-01-31] MEDS ORDERED: DILTIAZEM INJ 125 MG in SODIUM CHLORIDE 0.9% INJ 100 ML IV PRN (16:00)
--- NOTE | 2017-01-31 18:03 | EKG ---
Date Performed: 01/30/2017 Time Performed: 19:13:53 PTAGE: 56 years EKG: SINUS TACHYCARDIA WITH FREQUENT SUPRAVENTRICULAR PREMATURE COMPLEXES Since previous tracing , no significant change noted ABNORMAL RHYTHM ECG PREVIOUS TRACING : 01/15/2017 09.58.50 DOCTOR: Luann Araujo Interpretating Date/Time 01/31/2017 18:03:18
--- NOTE | 2017-01-31 19:34 | MB ---
cc: Venessa LAWLER M.D. DATE OF CONSULTATION 01/31/17 REASON FOR CONSULTATION Sepsis and pleural effusions HISTORY OF PRESENT ILLNESS This is a 56-year-old lady who presented to the emergency room with complaints of bilateral lower extremity swelling, weakness and shortness of breath who was recently discharged from the hospital following treatment of a left pleural effusion for which she had a thoracotomy and decortication. The patient also was severely anemic and has received blood transfusions during her previous admission and, over the past several days, she had noticed increasing leg edema and has not been taking her diuretics on a regular basis. She became quite dyspneic and had incontinence as well as generalized weakness. The patient has been on antibiotics for a UTI. Her chest x-ray upon admission showed a left lung opacity which has previously been present since her decortication was done and a chest tube was removed. She denied fevers or chills but has a cough and mild wheezing and is orthopneic and presently on oxygen at two liters. She has some chest discomfort on the left side. PAST MEDICAL HISTORY 1. History for COPD, 2. History of anemia of chronic disease, 3. History of pancytopenia, etiology undetermined and the patient refused bone marrow. 4. Pulmonary hypertension 5. Aortic valve stenosis 6. Possible CHF. 7. Chronic lymphedema of both lower extremities 8. Depression 9. Chronic foot disorder due to which she does not ambulate much. HABITS The patient was a prior smoker of one-pack per day for over 30 years but not recently. No alcohol use. ALLERGIES None listed. FAMILY HISTORY Mother had a history of CHF and aortic valve stenosis. MEDICATIONS 1. Lasix 20 mg a day 2. Spiriva one capsule daily 3. Urecholine 25 mg q. 8 4. Prednisone 5 mg daily. REVIEW OF SYSTEMS The patient has gained weight. She has leg swelling. She has joint pains. She has lower back pain, difficulty in ambulation. Denies any hemoptysis or GI bleed. She has urinary frequency and dysuria and depression and anxiety. PHYSICAL EXAMINATION GENERAL: This is an averagely built middle-aged white female who is pale and mildly dyspneic at rest. BVS8: Blood pressure 124/60, pulse is 112, respirations 22, temperature 98.5. HEENT: Head normocephalic. Pupils are reactive and equal. Tongue moist. Throat is clear. Nasal mucosa injected. NECK: No bruits. Mild venous distension. Trachea midline. No thyroid enlargement. CHEST: diminished movements of the left chest with a dressing on the left chest wall at site of previous chest tube. Breath sounds diminished over the left mid and lower chest with occasional crackles in the left lung field. Right chest is clear. CARDIAC: Heart sounds are regular S1-S2 with a systolic ejection murmur 2/6 of the left sternal border. ABDOMEN: Soft, protuberant without masses. No organomegaly. EXTREMITIES: 3+ edema. Decreased pulses. No calf tenderness. NEUROLOGIC: Reflexes 1+. The patient does move all extremities well with no gross motor deficits. Cranial nerves grossly intact. SKIN: No lesions noted. IMPRESSION 1. Chronic bilateral leg edema (lymphedema). 2. Sepsis with UTI 3. COPD and chronic bronchitis 4. Severe deconditioning. 5. Status post VAT thoracotomy left chest with decortication of chronic loculated effusion 6. Atelectasis left lower lung. PLAN The patient will be placed on O2 at 2.5 liters. Incentive spirometry every two hours and nebulized DuoNeb solution added q.i.d. EZ PEP with a nebulizer q.i.d. Continue with antibiotic coverage as ordered. The patient will be given Mucomyst with a nebulizer twice daily. Follow up chest x-ray to be obtained and CBC and electrolytes as well. Continue with diuretic therapy including Lasix 20 mg b.i.d. for the leg edema. Replace potassium chloride. Thank you, Dr. Yadav, of this consultation. MD MADDY Johnston/ /6:22 PM /7:07 PM
[2017-01-31] MEDS ORDERED: AMIODARONE INJ 150 MG in DEXTROSE 5% IN WATER 100ML INJ 97 ML IV ONE ×2 (20:00)
--- NOTE | 2017-01-31 20:00 | EKG ---
Date Performed: 01/31/2017 Time Performed: 15:12:56 PTAGE: 56 years EKG: Marked baseline artifact present Probable Atrial fibrillation with uncontrolled ventricular response. Inferior/lateral ST-T changes are nonspecific Abnormal ECG Compared to prior electrocardio gram, atrial fibrillation appears to have replaced Sinus rhythm with premature atrial contractions. PREVIOUS TRACING : 01/31/2017 09.39 DOCTOR: Oleg Adkins Interpretating Date/Time 01/31/2017 19:59:54
[2017-01-31] MEDS: AMIODARONE INJ 450 MG in DEXTROSE 5% IN WATE(EXCEL) INJ 241 ML IV PRN ×2 (21:36)
[2017-02-01] VITALS (11 sets, daily range): BP systolic 82–131; BP diastolic 52–80; PULSE 87–145; RESP 14–22; TEMP 96.7–98; O2SAT 87–100
[2017-02-01] MEDS: RESP: ACETYLCYSTEINE 10% 30 ML NEB NEB SCH ×2 (01:25→07:25)
[2017-02-01] MEDS: CIPROFLOXACIN 400 MG PREMIX 200 ML IV SCH ×2 (05:14→17:04)
[2017-02-01] MEDS ORDERED: METOPROLOL TARTRATE 5 MG/5 ML VIAL IV PUSH ONE (05:15)
[2017-02-01] MEDS: ENOXAPARIN SODIUM 40 MG/0.4 ML SYRINGE SQ SCH (05:15)
[2017-02-01] MEDS: BETHANECHOL CHL 25 MG TAB PO SCH ×3 (05:15→21:14)
[2017-02-01] MEDS: AMIODARONE INJ 450 MG in DEXTROSE 5% IN WATE(EXCEL) INJ 241 ML IV PRN ×2 (05:17)
[2017-02-01 05:37] LABS: AUTOMATED NEUTROPHIL # 4.6 TH/MM3 (1.8-7.7); BASOPHIL % 0.1 % (0.0-2.0); EOSINOPHIL % 0.2 % (0.0-4.0); LYMPH % 7.8 % (9.0-44.0); LYMPHOCYTE # 0.5 TH/MM3 (1.0-4.8); MEAN CELL VOLUME 103.4 FL (80.0-100.0); MEAN CORPUSCULAR HEMOGLOBIN 34.6 PG (27.0-34.0); MEAN CORPUSCULAR HGB CONC 33.4 % (32.0-36.0); MONO % 15.5 % (0.0-8.0); NEUT % 76.4 % (16.0-70.0); PLATELET COUNT 73 TH/MM3 (150-450); RED BLOOD COUNT 2.42 MIL/MM3 (4.00-5.30); RED CELL DISTRIBUTION WIDTH 20.5 % (11.6-17.2)
[2017-02-01 05:39] LABS: HEMO FLAGS AUTO DIFF
[2017-02-01] MEDS: oxyCODONE/ACETAMINOPHEN 10 MG/325 MG TAB PO PRN (05:46)
[2017-02-01 05:50] LABS: BICARBONATE 29.2 MEQ/L (21.0-32.0); MAGNESIUM 1.7 MG/DL (1.5-2.5); POTASSIUM 4.6 MEQ/L (3.5-5.1)
[2017-02-01 06:20] LABS: SCAN/DIFF AUTO DIFF CONFIRMED
--- NOTE | 2017-02-01 08:16 | HHI.PR ---
Subjective Remarks Follow-up sepsis, edema, now with new onset A. fib. The patient is noted with tachycardia and shortness of breath, she is also desaturating in mid 80s, requiring oxygen by nasal cannula. We'll do ABG. Blood pressure was also noted below however he improved at this time. We'll hold Lasix. Patient complains of shortness of breath and feeling very tired. There is no nausea or vomiting. No chest pain. Feels her chest is congested however she is not wheezing and she is not coughing. No fever or chills. Objective Vitals Vital Signs Date Time Temp Pulse Resp B/P (MAP) Pulse Ox O2 Delivery O2 Flow Rate FiO2 02/01/17 05:17 133 109/80 02/01/17 05:15 98.0 145 18 109/80 (90) 100 02/01/17 04:00 Nasal Cannula 2.00 02/01/17 04:00 98.0 141 16 110/71 (84) 100 02/01/17 00:00 Nasal Cannula 2.00 02/01/17 00:00 97.7 135 17 91/56 (68) 96 01/31/17 21:36 142 80/55 01/31/17 21:15 141 18 80/60 (67) 100 01/31/17 20:46 141 102/73 01/31/17 20:41 155 102/73 01/31/17 20:37 155 18 102/73 (83) 100 01/31/17 20:00 96.8 141 18 88/55 (66) 94 01/31/17 20:00 144 01/31/17 20:00 Nasal Cannula 2.00 01/31/17 19:43 142 18 80/50 (60) 100 01/31/17 17:12 156 89/72 01/31/17 16:57 152 90/63 01/31/17 16:23 163 94/60 01/31/17 16:08 171 90/52 01/31/17 16:00 96.6 156 20 89/72 (78) 99 01/31/17 15:53 174 92/55 01/31/17 14:58 98/55 (69) 01/31/17 12:00 97.1 115 20 106/72 (83) 100 01/31/17 09:00 Nasal Cannula 2.00 I/O 01/31/17 01/31/17 01/31/17 02/01/17 02/01/17 02/01/17 07:00 15:00 23:00 07:00 15:00 23:00 Intake Total 250 ml 737 ml 250 ml Output Total 900 ml 200 ml Balance 250 ml -163 ml 50 ml Intake Oral 240 ml IV Total 250 ml 497 ml 250 ml Output Urine Total 900 ml 200 ml # Bowel Movements 0 Result Diagram: 02/01/1752802/01/17528 Imaging Last Impressions Chest X-Ray 01/30/171910 Signed Impressions: Service Date/Time: Monday, January 30, 2017 19:21 - CONCLUSION: 1. Improving aeration in the right hemithorax with interval resolution of the previously seen interstitial edema. No infiltrate on the right. 2. Persistent volume loss in the left hemithorax with near-complete opacification and probable associated effusion Yogesh Isbell MD Objective Remarks GENERAL: This is a well-nourished, well-developed patient, in no apparent distress. CARDIOVASCULAR: Irregularly irregular. No gallops, or rubs. Systolic murmur noted RESPIRATORY: Decreased breath sounds worse on the left. No wheezes, rales, or rhonchi. GASTROINTESTINAL: Abdomen soft, non-tender, nondistended. No guarding. MUSCULOSKELETAL: Extremities without clubbing, cyanosis with bilateral lower extremity pitting edema. No joint tenderness, effusion, or edema noted. No calf tenderness. Negative Homans sign bilaterally. NEUROLOGICAL: Awake and alert. Cranial nerves II through XII intact. Motor and sensory grossly within normal limits. Five out of 5 muscle strength in all muscle groups. Normal speech. A/P Problem List: (1) UTI (urinary tract infection) ICD Code: N39.0 - Urinary tract infection, site not specified Status: Acute Assessment and Plan This is a 56-year-old female who presents to the emergency department complaining of worsening bilateral lower extremity swelling since she was discharged from [facility] [place] after being treated for left pleural effusion status post thoracotomy. She has history of chronic bilateral lower extremity lymphedema and admits noncompliance to medications and salt restriction. Worsening bilateral lower extremity lymphedema secondary to noncompliance. Hold IV diuresis with Lasix as patient with low BP and monitor renal function and electrolytes. Counseled. Discussed with pulmonary, he doesn't think it's cor pulmonale. Recent echocardiogram shows and pulmonary hypertension Severe Sepsis secondary to UTI. Continue ciprofloxacin and monitor cultures. Consult ID. Hypotension. Poss 2/2 sepsis. Hold diuretic at this time. Afib which is multifactorial including conditions mentioned above, pain, electrolyte abnormalities and meds. Start digoxin as patient with low BP. Consult cardiology recent echo on 12/20 with normal EF. Will monitor on telemetry. Check TSH COPD, chronic respiratory failure and left pleural effusion status post thoracotomy. Continue nebulizations, oxygen and taper steroids. Pulm ff Pancytopenia. Evaluated by hematology during last hospitalization refused bone marrow biopsy Hypokalemia. Currently on potassium 20 mg 3 times a day supplementation. Repeat BMP and magnesium in the morning Deconditioning. Physical therapy evaluation Discontinue Cabrera catheter. Patient was requesting to get Cabrera catheter and will be discontinued today in the morning. Patient aware of risk of infection. Wound care DVT prophylaxis with Lovenox Discussed Condition With Patient, nurse Problem Qualifiers (1) UTI (urinary tract infection): Qualified Codes: N30.00 - Acute cystitis without hematuria Marjorie Ratliff MD Feb 01, 2017 08:16
[2017-02-01] MEDS ORDERED: DIGOXIN 0.5 MG/2 ML VIAL IV PUSH ONE ×2 (08:30→17:00)
[2017-02-01] MEDS ORDERED: METOPROLOL TARTRATE 25 MG TAB PO SCH (09:00)
[2017-02-01] MEDS: SODIUM CHLORIDE 0.9% FLUSH 10 ML FLUSH IV FLUSH SCH ×2 (09:00→21:14)
[2017-02-01] MEDS: TAMSULOSIN HCL 0.4 MG CAP PO SCH (09:00)
[2017-02-01] MEDS: FUROSEMIDE 20 MG/2 ML VIAL IV PUSH SCH ×2 (09:00→17:03)
[2017-02-01] MEDS: FERROUS SULFATE 325 MG (65 MG ELEMENTAL IRON) TAB PO SCH ×2 (09:26→21:14)
[2017-02-01] MEDS: POTASSIUM CHLORIDE 10 MEQ CAP PO SCH ×3 (09:26→17:02)
[2017-02-01] MEDS: predniSONE 5 MG TAB PO SCH (09:27)
[2017-02-01] MEDS: TIOTROPIUM BROMIDE 18 MCG INH INH SCH (09:27)
--- NOTE | 2017-02-01 13:52 | RADRPT ---
EXAM DATE/TIME: 02/01/2017 13:13 [facility] COMPARISON: CHEST SINGLE AP, January 30, 2017, 19:21. INDICATIONS : Short of breath, chest pain. MEDICAL HISTORY : Chronic obstructive pulmonary disease. Congestive heart failure. SURGICAL HISTORY : thoracotomy ENCOUNTER: Initial ACUITY: 3 days PAIN SCORE: 10/10 LOCATION: Bilateral chest FINDINGS: 2 portable frontal views of the chest show a large left pleural effusion that is unchanged. No effusi on seen on the right. Volume loss involving left hemithorax is stable. Right lung is without infiltra te. Heart is mildly enlarged. CONCLUSION: Unchanged large left pleural effusion and volume loss of the left hemithorax. Art Tate Jr., MD on February 01, 2017 at 13:47 Board Certified Radiologist. This report was verified electronically.
[2017-02-01] MEDS ORDERED: MAGNESIUM OXIDE 400 MG TAB PO ONE (14:45)
[2017-02-01] MEDS: MAGNESIUM SULFATE 1 GM PREMIX 100 ML IV SCH ×2 (16:30→17:01)
--- NOTE | 2017-02-01 16:52 | PD.CONS ---
Consult Service Palliative Care Consult Requested By Dr. Betsy Kirk . Primary Care Physician Venessa Chung MD . Reason for Consultation a. To assist with evaluation and management of symptoms including: Dyspnea , weakness b. To assist medical decision maker(s) with: better understanding of current medical conditions; weighing benefits/burdens of medical treatment options; making medical treatment decisions. . HPI History of Present Illness This 56-year-old female, with a history of aortic stenosis, pleural effusion, and moderately severe COPD, was admitted to this facility on 12/29/16 because of dyspnea and weight loss. X-rays and scans revealed a complex fluid area at the lung base, and echocardiography revealed significant aortic stenosis but a grossly normal ejection fraction. The patient underwent thoracoscopic exploration on 01/11/17 and had drainage and decortication completed, and then decompensated on 01/15/17 requiring intubation. She had a large pleural effusion that was treated and she was able to be extubated on 01/16/17. She was also found to be significantly pancytopenic and required transfusion of red cells. It was felt that she may have a myelodysplastic syndrome and that she needed a bone marrow biopsy, but she refused that at that time, wanting to have it done at a later date. She finally was discharged home on 01/24/17, with home oxygen. During the week that she was home, she was too weak to get up or ambulate by herself, and she remained dyspneic with minimal exertion. She had worsening edema of her lower extremities, and she returned to the emergency department on 01/31/17 because of the weakness, dyspnea, and worsening edema. In the emergency department, findings included: * Alert, weak, dyspneic * Temp 98.1, pulse 111, respirations 20, blood pressure 121/70, oxygen saturation 100% on 2 L * White count 3.6, hemoglobin 9.1, platelets 69,000 * Sodium 134, creatinine 0.77, albumin 2.0 * Urinalysis consistent with infection * Chest x-ray with left-sided pleural effusion The patient was admitted and some diuresis was undertaken. She developed new atrial fibrillation with RVR, and was felt to be in CHF. She remained profoundly weak. Palliative Care was consulted to assist with symptom management, and to enter into discussions with the patient and her family regarding her multiple illnesses, prognosis, and the benefits and burdens of the various treatment choices. . Function/Cognitive Trajectory Patient's Feliberto and patient's sister were present in the room and assisted with history. The patient was too weak to ambulate or stand on her own during the one week that she was home between these 2 hospitalizations. She has remained mentally alert and sharp. . Review of Systems Constitutional: COMPLAINS OF: Fatigue, Weight loss, Generalized weakness Endocrine: DENIES: Polyuria Eyes: DENIES: Eye inflammation Ears, nose, mouth, throat: DENIES: Hoarseness, Epistaxis Respiratory: COMPLAINS OF: Cough, Wheezing, Shortness of breath Cardiovascular: COMPLAINS OF: Chest pain (from recent surgery), Dyspnea on Exertion, Lower Extremity Edema, Orthopnea Gastrointestinal: DENIES: Black stools, Constipation, Diarrhea, Vomiting, Vomiting blood Genitourinary: DENIES: Hematuria Musculoskeletal: DENIES: Back pain Integumentary: DENIES: Rash Hematologic/Lymphatics: DENIES: Lymphadenopathy Immunologic/Allergic: DENIES: Urticaria Neurologic: DENIES: Localized weakness, Seizures Psychiatric: COMPLAINS OF: Depression, DENIES: Hallucinations, Agitation Past Family Social History Coded Allergies: No Known Allergies (Verified , 12/29/16) Past Medical History * Aortic stenosis, CHF * Pancytopenia, undetermined etiology * Recent atrial fibrillation, RVR * COPD for at least 5 years, moderately severe * Depression * Chronic orthopedic foot discomfort . Past Surgical History * Left thoracoscopic exploration 01/11/17 * Bilateral chest tubes January 2017 . Reported Medications Reported Meds & Active Scripts Active Oxycodone-Acetaminophen 10-325 (Oxycodone HCl/Acetaminophen) 10 Mg-325 Mg Tablet 1 Tab PO Q4H PRN Prednisone 5 Mg Tab 3 Tab PO DAILY Ventolin Hfa 18 GM Inh (Albuterol Sulfate) 90 Mcg/Act Aer 2 Puff INH Q4-6H PRN Spiriva Handihaler (Tiotropium Inh) 18 Mcg Cap 18 Mcg INH DAILY 1 capsule = 18 mcg Ferosul (Ferrous Sulfate) 325 Mg (65 Mg Iron) Tablet 325 Mg PO BID Flomax (Tamsulosin HCl) 0.4 Mg Cap 0.4 Mg PO DAILY Urecholine (Bethanechol Chloride) 25 Mg Tab 25 Mg PO Q8H Reported Furosemide 20 Mg Tab 20 Mg PO DAILY . Current Medications Medications (Trade) Dose Ordered Sig/Armin Route Start Time Stop Time Status Last Admin Ciprofloxacin/ Dextrose 200 ml @ 200 mls/hr Q12H IV 01/31/17 05:00 02/01/17 05:14 (Lasix Inj) 20 mg BID@09,18 IV PUSH 01/31/17 09:00 02/01/17 09:00 (NS Flush) 2 ml UNSCH PRN IV FLUSH 01/31/17 04:45 (NS Flush) 2 ml BID IV FLUSH 01/31/17 09:00 02/01/17 09:00 (Tylenol) 650 mg Q4H PRN PO 01/31/17 04:45 02/01/17 09:57 (Zofran Inj) 4 mg Q6H PRN IVP 01/31/17 04:45 (Lovenox Inj) 40 mg Q24H SQ 01/31/17 06:00 02/01/17 05:15 (Narcan Inj) 0.4 mg UNSCH PRN IV PUSH 01/31/17 04:45 (Milk Of Magnesia Liq) 30 ml Q12H PRN PO 01/31/17 04:45 (Senokot) 17.2 mg Q12H PRN PO 01/31/17 04:45 (Dulcolax Supp) 10 mg DAILY PRN RECTAL 01/31/17 04:45 (Lactulose Liq) 30 ml DAILY PRN PO 01/31/17 04:45 (Urecholine) 25 mg Q8HR PO 01/31/17 06:00 02/01/17 14:00 (Ferrous Sulfate) 325 mg BID PO 01/31/17 09:00 02/01/17 09:26 (Percocet 10-325 Mg) 1 tab Q4H PRN PO 01/31/17 04:45 02/01/17 05:46 (Deltasone) 15 mg DAILY PO 01/31/17 09:00 02/01/17 09:27 (Flomax) 0.4 mg DAILY PO 01/31/17 09:00 01/31/17 09:27 (Spiriva Inh) 18 mcg DAILY INH 01/31/17 09:00 02/01/17 09:27 (KCl) 20 meq TID PO 01/31/17 13:00 02/01/17 13:00 (Duoneb Neb) 1 ampule QID NEB PRN NEB 01/31/17 12:00 (Lanoxin Inj) 0.25 mg DAILY IV PUSH 02/02/17 09:00 (Lanoxin Inj) 0.25 mg ONCE ONCE IV PUSH 02/01/17 17:00 02/01/17 17:01 Magnesium Sulfate/ Dextrose 100 ml @ 100 mls/hr Q1H IV 02/01/17 15:30 02/01/17 17:29 (Mag-Ox) 400 mg Q12HR PO 02/01/17 21:00 Family History The patient's father at age 54 of lung cancer, and her mother at age 75 of CHF. . Substance Use Tobacco: She smoked 1-2 packs per day until she quit about 5 years ago when she was diagnosed with COPD. Alcohol: Occasional Prescription med abuse: None Illicits: None . Psychosocial History The patient was born and raised in [place], [place], and moved to [place] about 38 years ago. She currently lives with her . She has been 14 years, and she has one 30-year-old daughter that lives locally. 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 . Spiritual/Cultural Factors The patient says she is spiritual and her own way, but is not affiliated with any pentecostalism or clergy, and does not want veneer grader visits. . Living Will: Completed, but not made available Health Care Surrogate: Never completed Durable Power of Stab Setter And Driller: Never completed Today's verbally stated goals: The patient wants to continue aggressive treatment for now, and she is looking forward to further evaluations and recommendations from cardiology, cardiovascular surgery, pulmonology, hematology. Even though she has a living will, and even though she understands that it is likely that she has end-stage lung and heart disease, she does want to continue aggressive care at this time including mechanical ventilation and resuscitation; however, she makes it clear that if she is on a ventilator for some period of time and is not going to get better, she would want to have it withdrawn and be allowed to peacefully. Her and her sister are in the room during this discussion and understand her wishes. . Family/friends goals: Her supports her goals and wishes . Ethical and Legal Issues There are no ethical issues that would impact her care or decision-making at this time. She has capacity for decision-making, and her will be the proxy decision -maker when that time comes. . Physical Exam Vital Signs Date Time Temp Pulse Resp B/P (MAP) Pulse Ox O2 Delivery O2 Flow Rate FiO2 02/01/17 12:00 96.7 127 20 102/66 (78) 98 02/01/17 11:06 96.7 127 20 102/66 (78) 98 02/01/17 10:00 97 Nasal Cannula 1.00 02/01/17 08:45 128 14 98/66 (77) 99 02/01/17 08:15 99 Nasal Cannula 2.00 02/01/17 08:15 121 14 100/62 (75) 99 02/01/17 08:15 121 14 100/62 (75) 99 02/01/17 08:00 97.5 107 22 82/52 (62) 87 02/01/17 08:00 128 02/01/17 08:00 87 Room Air 02/01/17 08:00 107 16 82/52 (62) 87 02/01/17 08:00 16 82/52 (62) 87 02/01/17 05:17 133 109/80 02/01/17 05:15 98.0 145 18 109/80 (90) 100 02/01/17 04:00 Nasal Cannula 2.00 02/01/17 04:00 98.0 141 16 110/71 (84) 100 02/01/17 00:00 Nasal Cannula 2.00 02/01/17 00:00 97.7 135 17 91/56 (68) 96 01/31/17 21:36 142 80/55 01/31/17 21:15 141 18 80/60 (67) 100 01/31/17 20:46 141 102/73 01/31/17 20:41 155 102/73 01/31/17 20:37 155 18 102/73 (83) 100 01/31/17 20:00 96.8 141 18 88/55 (66) 94 01/31/17 20:00 144 01/31/17 20:00 Nasal Cannula 2.00 01/31/17 19:43 142 18 80/50 (60) 100 01/31/17 17:12 156 89/72 01/31/17 16:57 152 90/63 Exam CONSTITUTIONAL/GENERAL: This is a chronically ill, very weak patient, in mild respiratory distress. TUBES/LINES/DRAINS: Nasal oxygen, peripheral IVs SKIN: No jaundice, rashes, or lesions. Ecchymoses on upper extremities. No wounds seen anteriorly. Skin temperature appropriate. Not diaphoretic. HEAD: Atraumatic. Normocephalic. EYES: Pupils equal and round and reactive. Extraocular motions intact. No scleral icterus. No injection or drainage. Fundi not examined. ENT: Hearing grossly normal. Nose without bleeding or purulent drainage. Throat without visible erythema, exudates, masses, or lesions. NECK: Trachea midline. Supple, nontender. No palpable thyroid enlargement or nodularity. CARDIOVASCULAR: Irregularly irregular rhythm without murmurs, gallops, or rubs. No JVD. Peripheral pulses diminished. RESPIRATORY/CHEST: Symmetric, but mildly labored respirations. Markedly diminished breath sounds bilateral, a couple rhonchi. GASTROINTESTINAL: Abdomen soft, non-tender, nondistended. No hepato-splenomegaly , or palpable masses. No guarding. Bowel sounds present. GENITOURINARY: Without palpable bladder distension. MUSCULOSKELETAL: Extremities without clubbing or cyanosis, but still 1+ edema. No joint tenderness or effusion noted. No calf tenderness. No mottling or clubbing. LYMPHATICS: No palpable cervical or supraclavicular adenopathy. NEUROLOGICAL: Awake and alert. Motor and sensory grossly within normal limits. Follows commands. Cognitively sharp. Moves all extremities, but globally weak. PSYCHIATRIC: No obvious anxiety/depression. no apparent hallucinations or other psychotic thought process. . Diagnostic Tests Laboratory Laboratory Tests Test 01/30/17 19:37 01/30/17 19:50 01/31/17 09:56 02/01/17 05:29 White Blood Count 3.6 TH/MM3 (4.0-11.0) 6.0 TH/MM3 (4.0-11.0) Red Blood Count 2.69 MIL/MM3 (4.00-5.30) 2.42 MIL/MM3 (4.00-5.30) Hemoglobin 9.1 GM/DL (11.6-15.3) 8.4 GM/DL (11.6-15.3) Hematocrit 27.8 % (35.0-46.0) 25.0 % (35.0-46.0) Mean Corpuscular Volume 103.6 FL (80.0-100.0) 103.4 FL (80.0-100.0) Mean Corpuscular Hemoglobin 33.8 PG (27.0-34.0) 34.6 PG (27.0-34.0) Mean Corpuscular Hemoglobin Concent 32.6 % (32.0-36.0) 33.4 % (32.0-36.0) Red Cell Distribution Width 20.9 % (11.6-17.2) 20.5 % (11.6-17.2) Platelet Count 69 TH/MM3 (150-450) 73 TH/MM3 (150-450) Mean Platelet Volume 9.2 FL (7.0-11.0) 11.3 FL (7.0-11.0) Neutrophils (%) (Auto) 68.6 % (16.0-70.0) 76.4 % (16.0-70.0) Lymphocytes (%) (Auto) 9.7 % (9.0-44.0) 7.8 % (9.0-44.0) Monocytes (%) (Auto) 21.4 % (0.0-8.0) 15.5 % (0.0-8.0) Eosinophils (%) (Auto) 0.1 % (0.0-4.0) 0.2 % (0.0-4.0) Basophils (%) (Auto) 0.2 % (0.0-2.0) 0.1 % (0.0-2.0) Neutrophils # (Auto) 2.5 TH/MM3 (1.8-7.7) 4.6 TH/MM3 (1.8-7.7) Lymphocytes # (Auto) 0.3 TH/MM3 (1.0-4.8) 0.5 TH/MM3 (1.0-4.8) Monocytes # (Auto) 0.8 TH/MM3 (0-0.9) 0.9 TH/MM3 (0-0.9) Eosinophils # (Auto) 0.0 TH/MM3 (0-0.4) 0.0 TH/MM3 (0-0.4) Basophils # (Auto) 0.0 TH/MM3 (0-0.2) 0.0 TH/MM3 (0-0.2) CBC Comment AUTO DIFF AUTO DIFF Differential Total Cells Counted 100 Neutrophils % (Manual) 54 % (16-70) Band Neutrophils % 23 % (0-6) Lymphocytes % 10 % (9-44) Monocytes % 13 % (0-8) Neutrophils # (Manual) 2.8 TH/MM3 (1.8-7.7) Differential Comment FINAL DIFF MANUAL AUTO DIFF CONFIRMED Dohle Bodies PRESENT (NONE SEEN) Platelet Estimate LOW (NORMAL) Platelet Morphology Comment ENLARGED (NORMAL) Blood Urea Nitrogen 22 MG/DL (7-18) 18 MG/DL (7-18) 17 MG/DL (7-18) Creatinine 0.77 MG/DL (0.50-1.00) 0.64 MG/DL (0.50-1.00) 0.49 MG/DL (0.50-1.00) Random Glucose 82 MG/DL (74-106) 93 MG/DL (74-106) 138 MG/DL (74-106) Total Protein 5.7 GM/DL (6.4-8.2) Albumin 2.0 GM/DL (3.4-5.0) Calcium Level 8.2 MG/DL (8.5-10.1) 8.0 MG/DL (8.5-10.1) 8.3 MG/DL (8.5-10.1) Alkaline Phosphatase 160 U/L (45-117) Aspartate Amino Transf (AST/SGOT) 12 U/L (15-37) Alanine Aminotransferase (ALT/SGPT) 11 U/L (10-53) Total Bilirubin 0.8 MG/DL (0.2-1.0) Sodium Level 134 MEQ/L (136-145) 137 MEQ/L (136-145) 135 MEQ/L (136-145) Potassium Level 3.3 MEQ/L (3.5-5.1) 3.1 MEQ/L (3.5-5.1) 4.6 MEQ/L (3.5-5.1) Chloride Level 97 MEQ/L (98-107) 98 MEQ/L (98-107) 99 MEQ/L (98-107) Carbon Dioxide Level 29.0 MEQ/L (21.0-32.0) 30.4 MEQ/L (21.0-32.0) 29.2 MEQ/L (21.0-32.0) Anion Gap 8 MEQ/L (5-15) 9 MEQ/L (5-15) 7 MEQ/L (5-15) Estimat Glomerular Filtration Rate 78 ML/MIN (>89) 96 ML/MIN (>89) 131 ML/MIN (>89) Lactic Acid Level 0.9 mmol/L (0.4-2.0) Total Creatine Kinase 12 U/L (26-192) Troponin I 0.10 NG/ML (0.02-0.05) B-Type Natriuretic Peptide 528 PG/ML (0-100) Urine Color YELLOW (YELLW/STRAW) Urine Turbidity CLOUDY (CLEAR) Urine pH 6.5 (5.0-8.5) Urine Specific [place] 1.016 (1.002-1.035) Urine Protein 30 mg/dL (NEG-TRACE) Urine Glucose (UA) NEG mg/dL (NEG) Urine Ketones NEG mg/dL (NEG) Urine Occult Blood SMALL (NEG) Urine Nitrite NEG (NEG) Urine Bilirubin NEG (NEG) Urine Urobilinogen LESS THAN 2.0 MG/DL (LESS Urine Leukocyte Esterase LARGE (NEG) Urine RBC 4 /hpf (0-3) Urine WBC /hpf (0-5) Urine WBC Clumps MANY (NONE) Urine Squamous Epithelial Cells 3 /hpf (0-5) Urine Transitional Epithelial Cells 1 /hpf (NONE) Urine Bacteria MANY /hpf (NONE) Microscopic Urinalysis Comment CULTURE INDICATED Prothrombin Time 11.9 SEC (9.8-11.6) Prothromb Time International Ratio 1.1 RATIO Activated Partial Thromboplast Time 46.4 SEC (24.3-30.1) Magnesium Level 1.5 MG/DL (1.5-2.5) 1.7 MG/DL (1.5-2.5) Thyroid Stimulating Hormone 3rd Gen 2.070 uIU/ML (0.358-3.740) Result Diagram: 02/01/1729 02/01/17528 Microbiology Microbiology Date/Time Source Procedure Growth Status 01/30/17 21:45 Blood Line Aerobic Blood Culture - Preliminary NO GROWTH IN 2 DAYS Resulted 01/30/17 21:45 Blood Line Anaerobic Blood Culture - Preliminary NO GROWTH IN 2 DAYS Resulted 01/30/17 21:45 Blood Line Aerobic Blood Culture - Preliminary NO GROWTH IN 2 DAYS Resulted 01/30/17 21:45 Blood Line Anaerobic Blood Culture - Preliminary NO GROWTH IN 2 DAYS Resulted 01/30/17 19:50 Urine Random Urine Urine Culture - Preliminary Gram Negative Anish Resulted Imaging Last Impressions Chest X-Ray 02/01/17 0000 Signed Impressions: Service Date/Time: Wednesday, February 01, 2017 13:13 - CONCLUSION: Unchanged large left pleural effusion and volume loss of the left hemithorax. Art Tate Jr., MD Patient/Family Conference Present at Family Conference: Patient's Feliberto, and the patient's sister . Family Conference Time (mins): 55 Family Conference Location: Bedside Issues Discussed: * Palliative care role, purpose, approach * Additional medical, psychosocial, and spiritual history * Patients general health, functional status, and cognitive changes in the months leading up to the current hospitalization * Patient/family understanding of the current medical problems * Patient/family understanding of prognosis * Patients goals of care as best understood from advance directives and/or conversations and/or values * Current medical treatment options and benefits/burdens of those options * Likely scenarios comparing ongoing aggressive care with a transition to comfort measures only * Questions answered to the best of my ability * Palliative care contact information provided The patient wants to continue aggressive treatment for now, and she is looking forward to further evaluations and recommendations from cardiology, cardiovascular surgery, pulmonology, hematology. Even though she has a living will, and even though she understands that it is likely that she has end-stage lung and heart disease, she does want to continue aggressive care at this time including mechanical ventilation and resuscitation; however, she makes it clear that if she is on a ventilator for some period of time and is not going to get better, she would want to have it withdrawn and be allowed to peacefully. Her and her sister are in the room during this discussion and understand her wishes. . 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 Spiritual: The patient says she is spiritual and her own way, but is not affiliated with any pentecostalism or clergy, and does not want veneer grader visits. Legal: The patient has capacity for decision-making, and her Feliberto will be the proxy decision-maker when she loses that capacity. Ethical issues impacting care: None . Important Contacts : Feliberto Steven [phone] . 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 With her profound debility and weakness, her overall prognosis is pretty poor. . Code Status: Full Code Plan * FULL CODE, and she would accept treatment with life support "for a while but not for a long time since that wouldn't really be on life." She is unable to define how long... * DECISION-MAKING: The patient has capacity for decision-making, and her Feliberto will be the proxy decision-maker when she loses that capacity. * GOALS: The patient wants to continue aggressive treatment for now, and she is looking forward to further evaluations and recommendations from cardiology, cardiovascular surgery, pulmonology, hematology. Even though she has a living will, and even though she understands that it is likely that she has end-stage lung and heart disease, she does want to continue aggressive care at this time including mechanical ventilation and resuscitation; however, she makes it clear that if she is on a ventilator for some period of time and is not going to get better, she would want to have it withdrawn and be allowed to peacefully. Her and her sister are in the room during this discussion and understand her wishes. * SYMPTOMS: She is receiving her second 0.5 mg digoxin dose now, and hopefully her RVR will improve. She does not have pain at this time. I have no additional medication recommendations at this time. * Note: The patient feels (understandably) exhausted and is hoping that she will not have to endure additional procedures or aggressive interventions for a couple days. However, she is fully aware that her lungs and/or her heart may continue to decline significantly. * Palliative Care will continue to follow the patient during this hospitalization. . Time Spent Total Floor Time (mins): 81 Face to Face Time (mins): 62 >50% Counseling/Coord of Care: Yes Thank you for the opportunity to participate in the care of Ms. Steven. Attestation To help prompt me to consider important information that might be impacting today's encounter and assessment, information from prior notes written by myself or my colleagues may have been "brought forward" into today's note. My signature on this note, however, is an attestation that I personally performed the exam, history, and/or decision-making noted today, and, unless otherwise indicated, the interactions with patient, family, and staff as well as the review of records all occurred today. I also attest that the listed assessment and stated plan reflect my best clinical judgment today based on the combination of historical information, prior notes, and today's exam/ interactions. When time spent is documented, it refers only to time spent today by the signer, or if indicated, combined time spent today by collaborating physician/nurse practitioner. Kayleen Whipple MD Feb 01, 2017 16:52
--- NOTE | 2017-02-01 17:25 | HHI.PR ---
Subjective Remarks Has edema still and is very weak. Cardiac Evaluation in progress. On o2 4 L. Low BP and Hgb is low. Needs Bone marrow biopsy and 2 D Echo Objective Vital Signs Date Time Temp Pulse Resp B/P (MAP) Pulse Ox O2 Delivery O2 Flow Rate FiO2 02/01/17 16:00 97.8 134 20 131/78 (95) 96 02/01/17 12:00 96.7 127 20 102/66 (78) 98 02/01/17 11:06 96.7 127 20 102/66 (78) 98 02/01/17 10:00 97 Nasal Cannula 1.00 02/01/17 08:45 128 14 98/66 (77) 99 02/01/17 08:15 99 Nasal Cannula 2.00 02/01/17 08:15 121 14 100/62 (75) 99 02/01/17 08:15 121 14 100/62 (75) 99 02/01/17 08:00 97.5 107 22 82/52 (62) 87 02/01/17 08:00 128 02/01/17 08:00 87 Room Air 02/01/17 08:00 107 16 82/52 (62) 87 02/01/17 08:00 16 82/52 (62) 87 02/01/17 05:17 133 109/80 02/01/17 05:15 98.0 145 18 109/80 (90) 100 02/01/17 04:00 Nasal Cannula 2.00 02/01/17 04:00 98.0 141 16 110/71 (84) 100 02/01/17 00:00 Nasal Cannula 2.00 02/01/17 00:00 97.7 135 17 91/56 (68) 96 01/31/17 21:36 142 80/55 01/31/17 21:15 141 18 80/60 (67) 100 01/31/17 20:46 141 102/73 01/31/17 20:41 155 102/73 01/31/17 20:37 155 18 102/73 (83) 100 01/31/17 20:00 96.8 141 18 88/55 (66) 94 01/31/17 20:00 144 01/31/17 20:00 Nasal Cannula 2.00 01/31/17 19:43 142 18 80/50 (60) 100 I/O 01/31/17 01/31/17 01/31/17 02/01/17 02/01/17 02/01/17 07:00 15:00 23:00 07:00 15:00 23:00 Intake Total 250 ml 737 ml 250 ml Output Total 900 ml 200 ml Balance 250 ml -163 ml 50 ml Intake Oral 240 ml IV Total 250 ml 497 ml 250 ml Output Urine Total 900 ml 200 ml # Bowel Movements 0 Result Diagram: 02/01/1752802/01/17528 Objective Remarks GENERAL: This is an averagely built middle-aged white female who is pale and mildly dyspneic at rest. HEENT: Head normocephalic. Pupils are reactive and equal. Tongue moist. Throat is clear. Nasal mucosa injected. NECK: No bruits. Mild venous distension. Trachea midline. No thyroid enlargement. CHEST: diminished movements of the left chest with a dressing on the left chest wall at site of previous chest tube. Breath sounds diminished over the left mid and lower chest with occasional crackles in the left lung field. Right chest is clear. CARDIAC: Heart sounds are regular S1-S2 with a systolic ejection murmur 2/6 at the left sternal border. ABDOMEN: Soft, protuberant without masses. No organomegaly. EXTREMITIES: 3+ edema. Decreased pulses. No calf tenderness. NEUROLOGIC: Reflexes 1+. The patient does move all extremities well with no gross motor deficits. Cranial nerves grossly intact. SKIN: No lesions noted. Assessment and Plan Assessment and Plan IMPRESSION 1. Chronic bilateral leg edema (lymphedema). 2. Sepsis with UTI 3. COPD and chronic bronchitis 4. Severe deconditioning. 5. Status post VAT thoracotomy left chest with decortication of chronic loculated effusion 6. Atelectasis left lower lung. 7. Possible CHF. Plan : 1. Hold diuretic . 2. O2 at 2 L. 3. Nebs qid , duoneb. 4. Cardiac evaluation. 5. IS q2 h. 6. CBC,BMP BNP. Venessa Chung MD Feb 01, 2017 17:25
[2017-02-01 17:38] LABS: BLOOD GAS BASE EXCESS 4.6 mmol/L (-2-2); BLOOD GAS CARBOXYHEMOGLOBIN 1.7 % (0-4); BLOOD GAS HCO3 30 mmol/L (22-26); BLOOD GAS METHEMOGLOBIN 0.9 % (0-2); BLOOD GAS O2 HGB SATURATION 95 % (90-100); BLOOD GAS OXYGEN CONTENT 12.2 Vol % (12.0-20.0); BLOOD GAS PCO2 55 mmHg (38-42); BLOOD GAS PO2 100 mmHg (61-120); CRITICAL VALUE YES; TEMP CORR TO 98.6
[2017-02-01 17:39] LABS: DRAW SITE RT RADIAL; LITER FLOW 1 L/M; NUMBER OF ARTERIAL PUNCTURES 1; OXYGEN DEVICE 1 LITER NC; STAT NO; ULNAR PULSE Y
--- NOTE | 2017-02-01 18:02 | MB ---
cc: ANGUS CROWE M.D. DATE OF CONSULTATION: 02/01/2017 REASON FOR CONSULTATION: HISTORY OF PRESENT ILLNESS: Alicia is a very pleasant 56 year-old lady who had a mean aortic valve gradient of 49 mmHg back in December, was read as moderate aortic valve stenosis, however. She also has a history of pancytopenia. She presents to the ER with a chief complaint of palpitations and shortness of breath, found to be in eight days with rapid ventricular response, diagnosed with UTI as well. Otherwise denies any GI or bleeding, PND, orthopnea, syncope chest pain or dizziness. PAST MEDICAL HISTORY: As per the history of present illness. She has a history of COPD. She is on home oxygen. She has had bone marrow biopsy in the past. ALLERGIES None. MEDICATIONS PRIOR TO ADMISSION Lasix 20 mg daily. SOCIAL HISTORY Denies tobacco use. Drinks alcohol occasionally. She had an echo on 12/30/2016 that showed a grossly normal LV systolic function. PA pressure 69.3 mmHg. Aortic valve mean gradient was 49 mmHg. Aortic valve peak gradient 84.3 mmHg. MEDICATIONS IN THE HOSPITAL: 1. Digoxin 0.25 IV daily. 2. Potassium 20 milliequivalents t.i.d. 3. Albuterol p.r.n. 4. Lasix 20 IV b.i.d. 5. Iron sulfate 325 b.i.d. 6. Flomax 0.4 daily. 7. Spiriva 18 micrograms daily. 8. Lovenox 40 subcu q24 hours. 9. Urecholine 25 milligrams q8 hours. 10. Ciprofloxacin q12 hours. PHYSICAL EXAMINATION: VITAL SIGNS: Blood pressure 102/66. Pulse ranging between 107 and 128, sats 98% on one liter nasal cannula. General: She is alert, oriented x3, in no acute distress. Neck: Supple. No JVD. No bruits. Cardiovascular: S1-S2. No murmurs, rubs, or gallops. Lungs: Decreased air movement at the left base otherwise clear to auscultation bilaterally. Abdomen: Soft, nontender, nondistended, positive bowel sounds. Extremities: 1+ lower from edema. Chest x-ray, unchanged large left pleural effusion, volume loss of the left hemithorax. EKG done 01/31/17 shows A-fib at a rate of 164 beats per minute, nonspecific ST-T wave changes. LABORATORY DATA: White count 6.0, initially 3.6 on admission. Hemoglobin 8.4, hematocrit 25.0, platelet count 73. Sodium 135, potassium 4.6, chloride 99, bicarb 29.2, BUN 17, creatinine 0.49. BNP is 528, magnesium 0.7. Calcium 8.3. INR 1.1. DIAGNOSIS: 1. Severe aortic valve stenosis. 2. Decompensated congestive heart failure. 3. A-fib with rapid ventricular response. 4. Pancytopenia. 5. Hypomagnesemia. 6. Hyponatremia. 7. COPD. 8. Left pleural effusion. DISCUSSION: At this point in time options appear to be limited. The patient has severe aortic valve stenosis which is failing medical management and there are not many treatment options as she is relatively hypotensive and in heart failure. I think digoxin is a good choice for an attempt at rate control. Transfusion will e difficult due to baseline decompensated congestive heart failure potentially making this worse. I think the only option is consideration for aortic valve replacement and/or TAVR, however, she is pancytopenic and this may be a contraindication to either these two procedures. Will get a CT surgery consult to further assess that. Also in anticipation, will get a palliative care consult, if she is not a candidate for aortic valve replacement by TAVR or open procedure. MD JM Rowley/RACHANA /2:32 PM /5:03 PM
[2017-02-01] MEDS: RESP: ALBUTEROL 2.5 MG/IPRATROPIUM 0.5 MG NEB (PRN) NEB (18:51)
[2017-02-01] MEDS: MAGNESIUM OXIDE 400 MG TAB PO SCH (22:49)
[2017-02-02] VITALS (7 sets, daily range): BP systolic 98–139; BP diastolic 63–80; PULSE 82–148; RESP 16–20; TEMP 97.3–98.1; O2SAT 95–100
[2017-02-02] MEDS: BETHANECHOL CHL 25 MG TAB PO SCH ×3 (06:18→21:05)
[2017-02-02] MEDS: ENOXAPARIN SODIUM 40 MG/0.4 ML SYRINGE SQ SCH (06:18)
[2017-02-02] MEDS: oxyCODONE/ACETAMINOPHEN 10 MG/325 MG TAB PO PRN ×3 (06:19→21:07)
[2017-02-02] MEDS: CIPROFLOXACIN 400 MG PREMIX 200 ML IV SCH (06:19)
[2017-02-02 07:01] LABS: HEMATOCRIT 23.1 % (35.0-46.0); MEAN CELL VOLUME 101.7 FL (80.0-100.0); MEAN CORPUSCULAR HEMOGLOBIN 34.9 PG (27.0-34.0); MEAN CORPUSCULAR HGB CONC 34.3 % (32.0-36.0); PLATELET COUNT 53 TH/MM3 (150-450); RED BLOOD COUNT 2.27 MIL/MM3 (4.00-5.30); RED CELL DISTRIBUTION WIDTH 20.4 % (11.6-17.2); WHITE BLOOD COUNT 4.6 TH/MM3 (4.0-11.0)
[2017-02-02 07:21] LABS: BICARBONATE 31.4 MEQ/L (21.0-32.0); POTASSIUM 4.4 MEQ/L (3.5-5.1)
[2017-02-02 07:35] LABS: REVIEW FLAG FINAL
[2017-02-02] MEDS: POTASSIUM CHLORIDE 10 MEQ CAP PO SCH ×3 (08:35→18:00)
[2017-02-02] MEDS: MAGNESIUM OXIDE 400 MG TAB PO SCH ×2 (08:35→22:32)
[2017-02-02] MEDS: FERROUS SULFATE 325 MG (65 MG ELEMENTAL IRON) TAB PO SCH ×2 (08:35→21:05)
[2017-02-02] MEDS: FUROSEMIDE 20 MG/2 ML VIAL IV PUSH SCH ×2 (08:36→18:00)
[2017-02-02] MEDS: predniSONE 5 MG TAB PO SCH (08:36)
[2017-02-02] MEDS: DIGOXIN 0.5 MG/2 ML VIAL IV PUSH SCH (08:37)
[2017-02-02] MEDS: SODIUM CHLORIDE 0.9% FLUSH 10 ML FLUSH IV FLUSH SCH ×2 (08:37→21:06)
[2017-02-02] MEDS: TIOTROPIUM BROMIDE 18 MCG INH INH SCH (08:39)
[2017-02-02] MEDS: TAMSULOSIN HCL 0.4 MG CAP PO SCH (08:39)
[2017-02-02] MEDS ORDERED: ASP: ID consult, note reason in consult order PRN (10:30)
[2017-02-02] MEDS ORDERED: MISCELLANEOUS PHARMACY INFORMATION XX PRN (10:30)
--- NOTE | 2017-02-02 10:39 | HHI.PR ---
Subjective Remarks HR better controlled patient still with sob and feeling very tired. No fever or chills. Some cough. No chest pain at this time. No n/v/d/c, however has decreased appetite. Objective Vitals Vital Signs Date Time Temp Pulse Resp B/P (MAP) Pulse Ox O2 Delivery O2 Flow Rate FiO2 02/02/17 09:32 1.00 02/02/17 09:00 96 Nasal Cannula 2.00 02/02/17 08:00 97.4 128 18 103/72 (82) 99 02/02/17 04:00 98.1 128 18 107/70 (82) 99 02/02/17 04:00 123 02/02/17 00:00 98.0 82 20 98/63 (75) 100 02/02/17 00:00 110 02/01/17 20:00 Nasal Cannula 1.00 02/01/17 20:00 97.6 138 18 122/67 (85) 100 02/01/17 20:00 87 02/01/17 18:49 100 Nasal Cannula 3.00 02/01/17 16:00 97.8 134 20 131/78 (95) 96 02/01/17 12:00 96.7 127 20 102/66 (78) 98 02/01/17 11:06 96.7 127 20 102/66 (78) 98 I/O 02/01/17 02/01/17 02/01/17 02/02/17 02/02/17 02/02/17 07:00 15:00 23:00 07:00 15:00 23:00 Intake Total 250 ml 240 ml 120 ml Output Total 200 ml 600 ml 800 ml Balance 50 ml -360 ml -680 ml Intake Oral 240 ml 120 ml IV Total 250 ml Output Urine Total 200 ml 600 ml 800 ml # Bowel Movements 0 0 Result Diagram: 02/02/17 0547 02/02/17 0547 Imaging Last Impressions Chest X-Ray 02/01/17 0000 Signed Impressions: Service Date/Time: Wednesday, February 01, 2017 13:13 - CONCLUSION: Unchanged large left pleural effusion and volume loss of the left hemithorax. Art Tate Jr., MD Objective Remarks GENERAL: This is a well-nourished, well-developed patient, appears chronically ill, with sob. CARDIOVASCULAR: Irregularly irregular. No gallops, or rubs. Systolic murmur noted RESPIRATORY: Decreased breath sounds worse on the left. SOB. No wheezes, rales, or rhonchi. GASTROINTESTINAL: Abdomen soft, non-tender, nondistended. No guarding. MUSCULOSKELETAL: Extremities without clubbing, cyanosis with bilateral lower extremity pitting edema. No joint tenderness, effusion, or edema noted. No calf tenderness. Negative Homans sign bilaterally. NEUROLOGICAL: Awake and alert. Cranial nerves II through XII intact. Motor and sensory grossly within normal limits. Five out of 5 muscle strength in all muscle groups. Normal speech. A/P Problem List: (1) UTI (urinary tract infection) ICD Code: N39.0 - Urinary tract infection, site not specified Status: Acute Assessment and Plan This is a 56-year-old female who presents to the emergency department complaining of worsening bilateral lower extremity swelling since she was discharged from [facility] after being treated for left pleural effusion status post thoracotomy. She has history of chronic bilateral lower extremity lymphedema and admits noncompliance to medications and salt restriction. Worsening bilateral lower extremity lymphedema secondary to noncompliance. Hold IV diuresis with Lasix as patient with low BP and monitor renal function and electrolytes. Counseled. Discussed with pulmonary, he doesn't think it's cor pulmonale. Recent echocardiogram shows and pulmonary hypertension. Patient with severe aortic stenosis failed medical management. Consult CTS. Severe Sepsis secondary to UTI with Enterobacter cloacae multidrug resistant, DC cipro and start imipenem, consult ID. Hypotension. Poss 2/2 sepsis. Hold diuretic if SBP< 110 Afib which is multifactorial including conditions mentioned above, pain, electrolyte abnormalities and meds.Continue digoxin as patient with low BP. Consult cardiology. Patient with severe aortic stenosis with medical management failed. Consult CTS as patient might need valve replacement, However due to thrombocytopenia patient is a very weak candidate for surgery. Consult palliate care. Patient wants aggressive management at this time. Recent echo on 12/20 with normal EF. Will monitor on telemetry. Check TSH nl COPD, chronic respiratory failure and left pleural effusion status post thoracotomy. Continue nebulizations, oxygen and taper steroids. Pulm ff Pancytopenia. Evaluated by hematology during last hospitalization refused bone marrow biopsy Hypokalemia. Currently on potassium 20 mg 3 times a day supplementation. Repeat BMP and magnesium in the morning Deconditioning. Physical therapy evaluation Discontinue Cabrera catheter. Patient was requesting to get Cabrera catheter and will be discontinued today in the morning. Patient aware of risk of infection. Wound care DVT prophylaxis with Lovenox Discussed Condition With Patient, nurse DC plan: patient is very sick at this time. CTS consulted for eval, although due to thrombocytopenia patient is a poor candidate for surgery. Consult palliative also ff. Patient wants aggressive measure at this time. Problem Qualifiers (1) UTI (urinary tract infection): Qualified Codes: N30.00 - Acute cystitis without hematuria Marjorie Ratliff MD Feb 02, 2017 10:39
--- NOTE | 2017-02-02 12:43 | HHI.HCPN ---
Reason for visit a. To assist with evaluation and management of symptoms including: Dyspnea , weakness b. To assist medical decision maker(s) with: better understanding of current medical conditions; weighing benefits/burdens of medical treatment options; making medical treatment decisions. . Subjective/Interval History INTERVAL NOTE: The patient continues to feel quite weak, but she is denying pain at this time. She gets dyspneic with minimal exertion in the bed. Her BNP remains high, her pancytopenia continues... Awaiting evaluation by CV surgery. . Advance Directives Living Will: Completed, but not made available Health Care Surrogate: Never completed Durable Power of Vessel Specialist: Never completed Objective Vital Signs Date Time Temp Pulse Resp B/P (MAP) Pulse Ox O2 Delivery O2 Flow Rate FiO2 02/02/17 09:32 1.00 02/02/17 09:00 96 Nasal Cannula 2.00 02/02/17 08:00 97.4 128 18 103/72 (82) 99 02/02/17 04:00 98.1 128 18 107/70 (82) 99 02/02/17 04:00 123 02/02/17 00:00 98.0 82 20 98/63 (75) 100 02/02/17 00:00 110 02/01/17 20:00 Nasal Cannula 1.00 02/01/17 20:00 97.6 138 18 122/67 (85) 100 02/01/17 20:00 87 02/01/17 18:49 100 Nasal Cannula 3.00 02/01/17 16:00 97.8 134 20 131/78 (95) 96 Intake & Output 02/02/17 02/02/17 07:00 19:00 Intake Total 120 ml Output Total 800 ml Balance -680 ml Intake Oral 120 ml Output Urine Total 800 ml # Bowel Movements 0 Physical Exam CONSTITUTIONAL/GENERAL: This is a chronically ill, very weak patient, in no respiratory distress while lying still in the bed. TUBES/LINES/DRAINS: Nasal oxygen, peripheral IVs NECK: Trachea midline. Supple, nontender. No palpable thyroid enlargement or nodularity. CARDIOVASCULAR: Irregularly irregular rhythm without murmurs, gallops, or rubs. No JVD. Peripheral pulses diminished. RESPIRATORY/CHEST: Symmetric, but mildly labored respirations. Markedly diminished breath sounds bilateral, a couple rhonchi. GASTROINTESTINAL: Abdomen soft, non-tender, nondistended. No hepato-splenomegaly , or palpable masses. No guarding. Bowel sounds present. MUSCULOSKELETAL: Extremities without clubbing or cyanosis, but still 1+ edema. No joint tenderness or effusion noted. No calf tenderness. No mottling or clubbing. LYMPHATICS: No palpable cervical or supraclavicular adenopathy. NEUROLOGICAL: Awake and alert. Motor and sensory grossly within normal limits. Follows commands. Cognitively sharp. Moves all extremities, but globally weak. PSYCHIATRIC: No obvious anxiety/depression. no apparent hallucinations or other psychotic thought process. . Diagnostic Tests Laboratory Laboratory Tests Test 01/30/17 19:37 01/30/17 19:50 01/31/17 09:56 02/01/17 05:29 White Blood Count 3.6 TH/MM3 (4.0-11.0) 6.0 TH/MM3 (4.0-11.0) Red Blood Count 2.69 MIL/MM3 (4.00-5.30) 2.42 MIL/MM3 (4.00-5.30) Hemoglobin 9.1 GM/DL (11.6-15.3) 8.4 GM/DL (11.6-15.3) Hematocrit 27.8 % (35.0-46.0) 25.0 % (35.0-46.0) Mean Corpuscular Volume 103.6 FL (80.0-100.0) 103.4 FL (80.0-100.0) Mean Corpuscular Hemoglobin 33.8 PG (27.0-34.0) 34.6 PG (27.0-34.0) Mean Corpuscular Hemoglobin Concent 32.6 % (32.0-36.0) 33.4 % (32.0-36.0) Red Cell Distribution Width 20.9 % (11.6-17.2) 20.5 % (11.6-17.2) Platelet Count 69 TH/MM3 (150-450) 73 TH/MM3 (150-450) Mean Platelet Volume 9.2 FL (7.0-11.0) 11.3 FL (7.0-11.0) Neutrophils (%) (Auto) 68.6 % (16.0-70.0) 76.4 % (16.0-70.0) Lymphocytes (%) (Auto) 9.7 % (9.0-44.0) 7.8 % (9.0-44.0) Monocytes (%) (Auto) 21.4 % (0.0-8.0) 15.5 % (0.0-8.0) Eosinophils (%) (Auto) 0.1 % (0.0-4.0) 0.2 % (0.0-4.0) Basophils (%) (Auto) 0.2 % (0.0-2.0) 0.1 % (0.0-2.0) Neutrophils # (Auto) 2.5 TH/MM3 (1.8-7.7) 4.6 TH/MM3 (1.8-7.7) Lymphocytes # (Auto) 0.3 TH/MM3 (1.0-4.8) 0.5 TH/MM3 (1.0-4.8) Monocytes # (Auto) 0.8 TH/MM3 (0-0.9) 0.9 TH/MM3 (0-0.9) Eosinophils # (Auto) 0.0 TH/MM3 (0-0.4) 0.0 TH/MM3 (0-0.4) Basophils # (Auto) 0.0 TH/MM3 (0-0.2) 0.0 TH/MM3 (0-0.2) CBC Comment AUTO DIFF AUTO DIFF Differential Total Cells Counted 100 Neutrophils % (Manual) 54 % (16-70) Band Neutrophils % 23 % (0-6) Lymphocytes % 10 % (9-44) Monocytes % 13 % (0-8) Neutrophils # (Manual) 2.8 TH/MM3 (1.8-7.7) Differential Comment FINAL DIFF MANUAL AUTO DIFF CONFIRMED Dohle Bodies PRESENT (NONE SEEN) Platelet Estimate LOW (NORMAL) Platelet Morphology Comment ENLARGED (NORMAL) Blood Urea Nitrogen 22 MG/DL (7-18) 18 MG/DL (7-18) 17 MG/DL (7-18) Creatinine 0.77 MG/DL (0.50-1.00) 0.64 MG/DL (0.50-1.00) 0.49 MG/DL (0.50-1.00) Random Glucose 82 MG/DL (74-106) 93 MG/DL (74-106) 138 MG/DL (74-106) Total Protein 5.7 GM/DL (6.4-8.2) Albumin 2.0 GM/DL (3.4-5.0) Calcium Level 8.2 MG/DL (8.5-10.1) 8.0 MG/DL (8.5-10.1) 8.3 MG/DL (8.5-10.1) Alkaline Phosphatase 160 U/L (45-117) Aspartate Amino Transf (AST/SGOT) 12 U/L (15-37) Alanine Aminotransferase (ALT/SGPT) 11 U/L (10-53) Total Bilirubin 0.8 MG/DL (0.2-1.0) Sodium Level 134 MEQ/L (136-145) 137 MEQ/L (136-145) 135 MEQ/L (136-145) Potassium Level 3.3 MEQ/L (3.5-5.1) 3.1 MEQ/L (3.5-5.1) 4.6 MEQ/L (3.5-5.1) Chloride Level 97 MEQ/L (98-107) 98 MEQ/L (98-107) 99 MEQ/L (98-107) Carbon Dioxide Level 29.0 MEQ/L (21.0-32.0) 30.4 MEQ/L (21.0-32.0) 29.2 MEQ/L (21.0-32.0) Anion Gap 8 MEQ/L (5-15) 9 MEQ/L (5-15) 7 MEQ/L (5-15) Estimat Glomerular Filtration Rate 78 ML/MIN (>89) 96 ML/MIN (>89) 131 ML/MIN (>89) Lactic Acid Level 0.9 mmol/L (0.4-2.0) Total Creatine Kinase 12 U/L (26-192) Troponin I 0.10 NG/ML (0.02-0.05) B-Type Natriuretic Peptide 528 PG/ML (0-100) Urine Color YELLOW (YELLW/STRAW) Urine Turbidity CLOUDY (CLEAR) Urine pH 6.5 (5.0-8.5) Urine Specific [place] 1.016 (1.002-1.035) Urine Protein 30 mg/dL (NEG-TRACE) Urine Glucose (UA) NEG mg/dL (NEG) Urine Ketones NEG mg/dL (NEG) Urine Occult Blood SMALL (NEG) Urine Nitrite NEG (NEG) Urine Bilirubin NEG (NEG) Urine Urobilinogen LESS THAN 2.0 MG/DL (LESS Urine Leukocyte Esterase LARGE (NEG) Urine RBC 4 /hpf (0-3) Urine WBC /hpf (0-5) Urine WBC Clumps MANY (NONE) Urine Squamous Epithelial Cells 3 /hpf (0-5) Urine Transitional Epithelial Cells 1 /hpf (NONE) Urine Bacteria MANY /hpf (NONE) Microscopic Urinalysis Comment CULTURE INDICATED Prothrombin Time 11.9 SEC (9.8-11.6) Prothromb Time International Ratio 1.1 RATIO Activated Partial Thromboplast Time 46.4 SEC (24.3-30.1) Magnesium Level 1.5 MG/DL (1.5-2.5) 1.7 MG/DL (1.5-2.5) Thyroid Stimulating Hormone 3rd Gen 2.070 uIU/ML (0.358-3.740) Test 02/01/17 17:31 02/02/17 05:47 Blood Gas Puncture Site RT RADIAL Blood Gas Patient Temperature 98.6 Blood Gas HCO3 30 mmol/L (22-26) Blood Gas Base Excess 4.6 mmol/L (-2-2) Blood Gas Oxygen Saturation 95 % (90-100) Arterial Blood pH 7.35 (7.380-7.420) Arterial Blood Partial Pressure CO2 55 mmHg (38-42) Arterial Blood Partial Pressure O2 100 mmHg (61-120) Arterial Blood Oxygen Content 12.2 Vol % (12.0-20.0) Arterial Blood Carboxyhemoglobin 1.7 % (0-4) Arterial Blood Methemoglobin 0.9 % (0-2) Blood Gas Hemoglobin 9.0 G/DL (12.0-16.0) Oxygen Delivery Device 1 LITER MO Blood Gas Liter Flow 1 L/M White Blood Count 4.6 TH/MM3 (4.0-11.0) Red Blood Count 2.27 MIL/MM3 (4.00-5.30) Hemoglobin 7.9 GM/DL (11.6-15.3) Hematocrit 23.1 % (35.0-46.0) Mean Corpuscular Volume 101.7 FL (80.0-100.0) Mean Corpuscular Hemoglobin 34.9 PG (27.0-34.0) Mean Corpuscular Hemoglobin Concent 34.3 % (32.0-36.0) Red Cell Distribution Width 20.4 % (11.6-17.2) Platelet Count 53 TH/MM3 (150-450) Mean Platelet Volume 11.2 FL (7.0-11.0) Blood Urea Nitrogen 14 MG/DL (7-18) Creatinine 0.49 MG/DL (0.50-1.00) Random Glucose 90 MG/DL (74-106) Calcium Level 8.5 MG/DL (8.5-10.1) Magnesium Level 2.0 MG/DL (1.5-2.5) Sodium Level 133 MEQ/L (136-145) Potassium Level 4.4 MEQ/L (3.5-5.1) Chloride Level 96 MEQ/L (98-107) Carbon Dioxide Level 31.4 MEQ/L (21.0-32.0) Anion Gap 6 MEQ/L (5-15) Estimat Glomerular Filtration Rate 131 ML/MIN (>89) B-Type Natriuretic Peptide 1324 PG/ML (0-100) Result Diagram: 02/02/17 0547 02/02/17 0547 Microbiology Microbiology Date/Time Source Procedure Growth Status 01/30/17 21:45 Blood Line Aerobic Blood Culture - Preliminary NO GROWTH IN 3 DAYS Resulted 01/30/17 21:45 Blood Line Anaerobic Blood Culture - Preliminary NO GROWTH IN 3 DAYS Resulted 01/30/17 21:45 Blood Line Aerobic Blood Culture - Preliminary NO GROWTH IN 3 DAYS Resulted 01/30/17 21:45 Blood Line Anaerobic Blood Culture - Preliminary NO GROWTH IN 3 DAYS Resulted 01/30/17 19:50 Urine Random Urine Urine Culture - Final Enterobacter Cloacae Complete Imaging Last Impressions Chest X-Ray 02/01/17 0000 Signed Impressions: Service Date/Time: Wednesday, February 01, 2017 13:13 - CONCLUSION: Unchanged large left pleural effusion and volume loss of the left hemithorax. 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 Spiritual: The patient says she is spiritual and her own way, but is not affiliated with any baptism or clergy, and does not want luggage liner visits. Legal: The patient has capacity for decision-making, and her Feliberto will be the proxy decision-maker when she loses that capacity. Ethical issues impacting care: None . Important Contacts : Feliberto Steven [phone] . 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 With her profound debility and weakness, her overall prognosis is pretty poor. . Code Status: Full Code Plan * FULL CODE, and she would accept treatment with life support "for a while but not for a long time since that wouldn't really be on life." She is unable to define how long... * DECISION-MAKING: The patient has capacity for decision-making, and her Feliberto will be the proxy decision-maker when she loses that capacity. * GOALS: The patient wants to continue aggressive treatment for now, and she is looking forward to the evaluation and recommendations now from cardiovascular surgery; she is aware that her marked debility, deconditioning, and her COPD would make any surgical intervention more difficult. At this time, she does want to continue aggressive care at this time including mechanical ventilation and resuscitation; however, she makes it clear that if she is on a ventilator for some period of time and is not going to get better, she would want to have it withdrawn and be allowed to peacefully. * SYMPTOMS: Her RVR seems to be better controlled, her dyspnea is not bad while she is lying still in the bed. She does not have pain at this time. I have no additional medication recommendations at this time. * Awaiting CV surgery evaluation and recommendations; if the patient is found to NOT be a candidate for valve repair or replacement, she likely would be appropriate for hospice services. * Palliative Care will continue to follow the patient during this hospitalization. . Time Spent Total Floor Time (mins): 39 Face to Face Time (mins): 23 >50% Counseling/Coord of Care: Yes Attestation To help prompt me to consider important information that might be impacting today's encounter and assessment, information from prior notes written by myself or my colleagues may have been "brought forward" into today's note. My signature on this note, however, is an attestation that I personally performed the exam, history, and/or decision-making noted today, and, unless otherwise indicated, the interactions with patient, family, and staff as well as the review of records all occurred today. I also attest that the listed assessment and stated plan reflect my best clinical judgment today based on the combination of historical information, prior notes, and today's exam/ interactions. When time spent is documented, it refers only to time spent today by the signer, or if indicated, combined time spent today by collaborating physician/nurse practitioner. Kayleen Whipple MD Feb 02, 2017 12:43
[2017-02-02 13:01] LABS: BACTERIA, URINE OCC /hpf; BLOOD, URINE NEG (NEG); GLUCOSE,URINE NEG (NEG); HYALINE CAST, URINE 19 /lpf (RARE); KETONE, URINE NEG (NEG); MUCUS URINE FEW /lpf (OCC); NITRITE,URINE NEG (NEG); SQUAMOUS EPITHELIAL CELL URINE 1 /hpf (0-5); URINE COLOR YELLOW (YELLW/STRAW)
[2017-02-02] MEDS: IMIPENEM/CILASTATIN INJ 500 MG in SODIUM CHLORIDE 0.9% INJ 100 ML IV SCH ×3 (13:41→22:32)
--- NOTE | 2017-02-02 14:10 | PD.CARD.PN ---
Subjective Subjective Remarks alert in nad, dyspnea improved Objective Medications Current Medications Medications (Trade) Dose Ordered Sig/Armin Route Start Time Stop Time Status Last Admin (Lasix Inj) 20 mg BID@09,18 IV PUSH 01/31/17 09:00 02/02/17 08:36 (NS Flush) 2 ml UNSCH PRN IV FLUSH 01/31/17 04:45 (NS Flush) 2 ml BID IV FLUSH 01/31/17 09:00 02/02/17 08:37 (Tylenol) 650 mg Q4H PRN PO 01/31/17 04:45 02/01/17 09:57 (Zofran Inj) 4 mg Q6H PRN IVP 01/31/17 04:45 (Lovenox Inj) 40 mg Q24H SQ 01/31/17 06:00 02/02/17 06:18 (Narcan Inj) 0.4 mg UNSCH PRN IV PUSH 01/31/17 04:45 (Milk Of Magnesia Liq) 30 ml Q12H PRN PO 01/31/17 04:45 (Senokot) 17.2 mg Q12H PRN PO 01/31/17 04:45 (Dulcolax Supp) 10 mg DAILY PRN RECTAL 01/31/17 04:45 (Lactulose Liq) 30 ml DAILY PRN PO 01/31/17 04:45 (Urecholine) 25 mg Q8HR PO 01/31/17 06:00 02/02/17 12:30 (Ferrous Sulfate) 325 mg BID PO 01/31/17 09:00 02/02/17 08:35 (Percocet 10-325 Mg) 1 tab Q4H PRN PO 01/31/17 04:45 02/02/17 06:19 (Deltasone) 15 mg DAILY PO 01/31/17 09:00 02/02/17 08:36 (Flomax) 0.4 mg DAILY PO 01/31/17 09:00 01/31/17 09:27 (Spiriva Inh) 18 mcg DAILY INH 01/31/17 09:00 02/02/17 08:39 (KCl) 20 meq TID PO 01/31/17 13:00 02/02/17 12:30 (Duoneb Neb) 1 ampule QID NEB PRN NEB 01/31/17 12:00 02/01/17 18:51 (Lanoxin Inj) 0.25 mg DAILY IV PUSH 02/02/17 09:00 02/02/17 08:37 (Mag-Ox) 400 mg Q12HR PO 02/01/17 21:00 02/02/17 08:35 (ASP Crit: Infectious disease consult) 1 UNSCH X1 PRN .XX 02/02/17 10:30 02/03/17 10:29 ([facility] Information) 1 UNSCH X1 PRN XX 02/02/17 10:30 02/03/17 10:29 Imipenem/ Cilastatin Sodium 500 mg/Sodium Chloride 100 ml @ 200 mls/hr Q6H IV 02/02/17 12:00 02/02/17 13:41 Vital Signs / I&O Vital Signs Date Time Temp Pulse Resp B/P (MAP) Pulse Ox O2 Delivery O2 Flow Rate FiO2 02/02/17 12:00 97.3 99 18 113/70 (84) 99 02/02/17 09:32 1.00 02/02/17 09:00 96 Nasal Cannula 2.00 02/02/17 08:00 97.4 128 18 103/72 (82) 99 02/02/17 04:00 98.1 128 18 107/70 (82) 99 02/02/17 04:00 123 02/02/17 00:00 98.0 82 20 98/63 (75) 100 02/02/17 00:00 110 02/01/17 20:00 Nasal Cannula 1.00 02/01/17 20:00 97.6 138 18 122/67 (85) 100 02/01/17 20:00 87 02/01/17 18:49 100 Nasal Cannula 3.00 02/01/17 16:00 97.8 134 20 131/78 (95) 96 I/O 02/01/17 02/01/17 02/01/17 02/02/17 02/02/17 02/02/17 07:00 15:00 23:00 07:00 15:00 23:00 Intake Total 250 ml 240 ml 120 ml Output Total 200 ml 600 ml 800 ml Balance 50 ml -360 ml -680 ml Intake Oral 240 ml 120 ml IV Total 250 ml Output Urine Total 200 ml 600 ml 800 ml # Bowel Movements 0 0 Physical Exam GENERAL: SKIN: Warm and dry. HEAD: Normocephalic. EYES: No scleral icterus. No injection or drainage. NECK: Supple, trachea midline. No JVD or lymphadenopathy. CARDIOVASCULAR: Regular rate and rhythm without murmurs, gallops, or rubs. RESPIRATORY: Breath sounds equal bilaterally. No accessory muscle use. GASTROINTESTINAL: Abdomen soft, non-tender, nondistended. MUSCULOSKELETAL: No cyanosis, or edema. BACK: Nontender without obvious deformity. No CVA tenderness. Laboratory Laboratory Tests Test 02/01/17 17:31 02/02/17 05:47 02/02/17 12:30 Blood Gas Puncture Site RT RADIAL Blood Gas Patient Temperature 98.6 Blood Gas HCO3 30 mmol/L Blood Gas Base Excess 4.6 mmol/L Blood Gas Oxygen Saturation 95 % Arterial Blood pH 7.35 Arterial Blood Partial Pressure CO2 55 mmHg Arterial Blood Partial Pressure O2 100 mmHg Arterial Blood Oxygen Content 12.2 Vol % Arterial Blood Carboxyhemoglobin 1.7 % Arterial Blood Methemoglobin 0.9 % Blood Gas Hemoglobin 9.0 G/DL Oxygen Delivery Device 1 LITER NC Blood Gas Liter Flow 1 L/M White Blood Count 4.6 TH/MM3 Red Blood Count 2.27 MIL/MM3 Hemoglobin 7.9 GM/DL Hematocrit 23.1 % Mean Corpuscular Volume 101.7 FL Mean Corpuscular Hemoglobin 34.9 PG Mean Corpuscular Hemoglobin Concent 34.3 % Red Cell Distribution Width 20.4 % Platelet Count 53 TH/MM3 Mean Platelet Volume 11.2 FL Blood Urea Nitrogen 14 MG/DL Creatinine 0.49 MG/DL Random Glucose 90 MG/DL Calcium Level 8.5 MG/DL Magnesium Level 2.0 MG/DL Sodium Level 133 MEQ/L Potassium Level 4.4 MEQ/L Chloride Level 96 MEQ/L Carbon Dioxide Level 31.4 MEQ/L Anion Gap 6 MEQ/L Estimat Glomerular Filtration Rate 131 ML/MIN B-Type Natriuretic Peptide 1324 PG/ML Urine Color YELLOW Urine Turbidity HAZY Urine pH 6.0 Urine Specific [place] 1.009 Urine Protein NEG mg/dL Urine Glucose (UA) NEG mg/dL Urine Ketones NEG mg/dL Urine Occult Blood NEG Urine Nitrite NEG Urine Bilirubin NEG Urine Urobilinogen LESS THAN 2.0 MG/DL Urine Leukocyte Esterase LARGE Urine RBC 5 /hpf Urine WBC 122 /hpf Urine WBC Clumps FEW Urine Squamous Epithelial Cells 1 /hpf Urine Bacteria OCC /hpf Urine Hyaline Casts 19 /lpf Urine Mucus FEW /lpf Assessment and Plan Problem List: (1) COPD (chronic obstructive pulmonary disease) ICD Codes: J44.9 - Chronic obstructive pulmonary disease, unspecified Status: Chronic (2) Pleural effusion on left ICD Codes: J90 - Pleural effusion, not elsewhere classified Status: Acute (3) Aortic stenosis ICD Codes: I35.0 - Nonrheumatic aortic (valve) stenosis (4) Pulmonary HTN ICD Codes: I27.20 - Pulmonary hypertension, unspecified (5) pancytopenia, etiology undetermined, suspect MDS (6) new atrial fibrillation, RVR (7) moderately severe COPD (8) congestive heart failure, persistent pleural effusions Assessment and Plan 1.) Severe - failing medical management, continue lasix as tolerated, f/u ct surg and palliative care consults, bnp, bmp in am Sd Kirk MD Feb 02, 2017 14:10
[2017-02-02 14:54] LABS: AUTOMATED NEUTROPHIL # 3.4 TH/MM3 (1.8-7.7); BASOPHIL % 0.1 % (0.0-2.0); HEMATOCRIT 24.8 % (35.0-46.0); LYMPH % 6.2 % (9.0-44.0); LYMPHOCYTE # 0.2 TH/MM3 (1.0-4.8); MEAN CELL VOLUME 102.9 FL (80.0-100.0); MEAN CORPUSCULAR HEMOGLOBIN 34.1 PG (27.0-34.0); MEAN CORPUSCULAR HGB CONC 33.1 % (32.0-36.0); MONO % 7.3 % (0.0-8.0); NEUT % 86.4 % (16.0-70.0); PLATELET COUNT 58 TH/MM3 (150-450); RED BLOOD COUNT 2.41 MIL/MM3 (4.00-5.30); RED CELL DISTRIBUTION WIDTH 20.8 % (11.6-17.2); WHITE BLOOD COUNT 3.9 TH/MM3 (4.0-11.0)
[2017-02-02 15:06] LABS: ALT (GPT) 15 U/L (10-53); ANION GAP 3 MEQ/L (5-15); AST (GOT) 20 U/L (15-37); BICARBONATE 33.8 MEQ/L (21.0-32.0); BLOOD UREA NITROGEN 14 MG/DL (7-18); CHLORIDE 95 MEQ/L (98-107); GLOMERULAR FILTRATION RATE 160 ML/MIN (>89); HEMO FLAGS AUTO DIFF; POTASSIUM 4.4 MEQ/L (3.5-5.1); SODIUM (NA) 132 MEQ/L (136-145)
[2017-02-02 15:08] LABS: ALKALINE PHOSPHATASE 175 U/L (45-117); TOTAL BILIRUBIN ADULT 0.6 MG/DL (0.2-1.0)
[2017-02-02 15:46] LABS: PLATELET ESTIMATE SMEAR LOW (NORMAL); PLATELET MORPHOLOGY NORMAL (NORMAL); SCAN/DIFF AUTO DIFF CONFIRMED
--- NOTE | 2017-02-02 17:10 | MB ---
cc: JOSEMANUEL RATLIFF MD, FRANKLYN F. MD DATE OF CONSULTATION: 02/02/[address] Ratliff. REASON FOR CONSULTATION Multidrug resistant urinary tract infection. HISTORY OF PRESENT ILLNESS This is a 56-year-old white female who was admitted to the hospital with dependent edema. The patient was also noted to have severe generalized weakness when she was admitted. The patient had a recent hospitalization and was discharged on January 24. During that hospitalization, she underwent left thoracoscopic exploration with left thoracotomy for decortication and evacuation of complex loculated effusion. The patient had a urinary culture which showed Yolanda tropicalis on 01/21. She had a urinalysis taken on 01/30 and it showed many white blood cell clumps, and the urine culture came back showing Enterobacter cloacae which is multiply resistant. It is resistant to all cephalosporins and ciprofloxacin, and the only antibiotic to which it is sensitive on the panel is imipenem and tobramycin. The patient has a Cabrera catheter in place. The patient stated that she has pain in her back and also pain in her chest where the surgical procedure was performed at the left thorax. She is currently alert and awake and oriented. Her is at bedside. He notes that she was having chills yesterday and then she had a short period of decreased mental status but that improved. Her white count today is 3.9. Her platelet count is 58. Chest x-ray shows a large left pleural effusion. The patient was followed by Cardiology and is felt to have severe aortic stenosis and is failing medical management. She has no problems with burning on urination. PAST MEDICAL HISTORY 1. Chronic respiratory failure. 2. Left pleural effusion. 3. COPD. 4. Chronic bilateral lower extremity lymphedema. ALLERGIES NO KNOWN DRUG ALLERGIES. MEDICATIONS 1. Imipenem. 2. Digoxin. 3. Magnesium oxide. 4. Prednisone. 5. Flomax. 6. Ferrous sulfate. 7. Lasix. 8. Spiriva. 9. Urecholine. 10. Percocet 10 p.r.n. SOCIAL HISTORY The patient is . Occasional alcohol. No tobacco. No illicit drugs. FAMILY HISTORY Noncontributory. REVIEW OF SYSTEMS Pertinents mentioned above in History of Present Illness. The review of systems is significant for dyspnea, the back pain and the generalized weakness. PHYSICAL EXAMINATION GENERAL: This is a frail appearing female who is in no acute distress. She is awake and alert and oriented. VITAL SIGNS: Temperature 97.3, blood pressure 113/70, respirations 18, heart rate 99. HEENT: The head is atraumatic. Extraocular movements grossly intact. No icterus. No conjunctival erythema. Oropharynx - moist mucosa. NECK: Supple. No adenopathy. LUNGS: Clear. HEART: A 5/6 systolic ejection murmur at the left sternal border and upper right sternal border. Irregular rate and rhythm. ABDOMEN: Bowel sounds present, soft, nontender. RECTAL: Not performed. EXTREMITIES: No clubbing or cyanosis or edema. SKIN: Multiple ecchymoses of the upper extremities, and multiple punctate erythematous lesions at the chest. No diffuse rash. NEUROLOGIC: Nonfocal. PSYCHIATRIC: The patient is calm and cooperative. LABORATORY DATA WBC 3.9, platelets 58, hemoglobin 8.2, creatinine 0.41, BUN 14, sodium 132, LFTs normal gilberto. Blood culture from 02/02 has no growth. Blood culture from 01/30 no growth. IMPRESSION 1. UTI due to resistant Enterobacter cloacae. 2. The patient with severe aortic stenosis and also left pleural effusion. The patient's describes that she had chills and some alteration in mental status but currently she is clinically stable and without obvious evidence of sepsis currently. She did however have elevated heart rate and her blood pressure was lower earlier today and also yesterday. RECOMMENDATIONS 1. Continue imipenem. 2. Repeat the urine culture in the a.m. on Monday to check for clearance. 3. Monitor clinical symptomatology. 4. Follow the white blood cell count. Thank you for this consultation. The patient's progress will be monitored and further recommendations will be given upon followup. Please also monitor the urine culture which will be ordered for Monday morning, and call ID if it becomes positive or any change in the patient's clinical status. Thank you this consultation. James Pastrana MD FD/ELLY /3:06 PM /4:21 PM
--- NOTE | 2017-02-02 20:00 | HHI.PR ---
Subjective Remarks Less leg edema but weak. Cardiac Evaluation done and AVR was suggested On o2 4 L. On Imipenem Needs Bone marrow biopsy . Objective Vital Signs Date Time Temp Pulse Resp B/P (MAP) Pulse Ox O2 Delivery O2 Flow Rate FiO2 02/02/17 19:32 98 Nasal Cannula 1.00 02/02/17 16:00 97.8 100 16 108/66 (80) 98 02/02/17 12:00 97.3 99 18 113/70 (84) 99 02/02/17 12:00 117 02/02/17 09:32 1.00 02/02/17 09:00 96 Nasal Cannula 2.00 02/02/17 08:00 97.4 128 18 103/72 (82) 99 02/02/17 08:00 126 02/02/17 04:00 98.1 128 18 107/70 (82) 99 02/02/17 04:00 123 02/02/17 00:00 98.0 82 20 98/63 (75) 100 02/02/17 00:00 110 02/01/17 20:00 Nasal Cannula 1.00 02/01/17 20:00 97.6 138 18 122/67 (85) 100 02/01/17 20:00 87 I/O 02/01/17 02/01/17 02/01/17 02/02/17 02/02/17 02/02/17 07:00 15:00 23:00 07:00 15:00 23:00 Intake Total 250 ml 240 ml 120 ml 120 ml Output Total 200 ml 600 ml 800 ml 1100 ml Balance 50 ml -360 ml -680 ml -980 ml Intake Oral 240 ml 120 ml 120 ml IV Total 250 ml Output Urine Total 200 ml 600 ml 800 ml 1100 ml # Bowel Movements 0 0 0 Result Diagram: 02/02/17 1401 02/02/17 1401 Objective Remarks GENERAL: This is an averagely built middle-aged white female who is pale and mildly dyspneic at rest. HEENT: Head normocephalic. Pupils are reactive and equal. Tongue moist. Throat is clear. NECK: No bruits. Mild venous distension. Trachea midline. No thyroid enlargement. CHEST: diminished movements of the left chest with a dressing on the left chest wall at site of previous chest tube. Breath sounds diminished over the left mid and lower chest with occasional crackles in the left lung field. Right chest is clear. CARDIAC: Heart sounds are regular S1-S2 with a systolic ejection murmur 2/6 at the left sternal border. ABDOMEN: Soft, protuberant without masses. No organomegaly. EXTREMITIES: 3+ edema. Decreased pulses. No calf tenderness. NEUROLOGIC: Reflexes 1+. The patient does move all extremities well with no gross motor deficits. Cranial nerves grossly intact. SKIN: No lesions noted. Assessment and Plan Assessment and Plan IMPRESSION 1. Chronic bilateral leg edema (lymphedema). 2. Sepsis with UTI 3. COPD and chronic bronchitis 4. Severe deconditioning. 5. Status post VAT thoracotomy left chest with decortication of chronic loculated effusion 6. Atelectasis left lower lung. 7. Possible CHF. Plan : 1. Adv to lay mostly on Right side. 2. O2 at 2 L. 3. Nebs qid , duoneb. 4. Bone marrow Biopsy 5. IS q2 h. 6. Chest X ray in am 7. Antibiotics per Venessa Sanchez MD Feb 02, 2017 20:00
[2017-02-03] VITALS (11 sets, daily range): BP systolic 94–141; BP diastolic 54–81; PULSE 80–126; RESP 16–18; TEMP 94.6–99.1; O2SAT 95–99
[2017-02-03] MEDS: BETHANECHOL CHL 25 MG TAB PO SCH ×3 (05:26→22:12)
[2017-02-03] MEDS: IMIPENEM/CILASTATIN INJ 500 MG in SODIUM CHLORIDE 0.9% INJ 100 ML IV SCH ×3 (05:26→18:03)
[2017-02-03] MEDS: ENOXAPARIN SODIUM 40 MG/0.4 ML SYRINGE SQ SCH (05:27)
[2017-02-03] MEDS: oxyCODONE/ACETAMINOPHEN 10 MG/325 MG TAB PO PRN ×2 (05:27→22:21)
--- NOTE | 2017-02-03 07:30 | RADRPT ---
EXAM DATE/TIME: 02/03/2017 06:17 [place] COMPARISON: CHEST SINGLE AP, February 01, 2017, 13:13. INDICATIONS : Short of breath, chest pain, evaluate effusion MEDICAL HISTORY : UTI, lung mass, aneurysm SURGICAL HISTORY : thoracotomy ENCOUNTER: Subsequent ACUITY: 4 - 6 days PAIN SCORE: 10/10 LOCATION: Left chest FINDINGS: Single view of the AP portable upright chest demonstrates stable appearance of a large left-sided ple ural effusion with only a minimal portion of the left lung apices aerated. The right hemithorax is cl ear. The cardiomediastinal silhouette is obscured by the left-sided pleural effusion. No evidence of tracheal shift.. CONCLUSION: Stable exam. Alda Alberts MD on February 03, 2017 at 7:28 Board Certified Radiologist. This report was verified electronically.
[2017-02-03 07:55] LABS: AUTOMATED NEUTROPHIL # 4.1 TH/MM3 (1.8-7.7); EOSINOPHIL % 0.1 % (0.0-4.0); HEMATOCRIT 25.4 % (35.0-46.0); LYMPH % 14.2 % (9.0-44.0); LYMPHOCYTE # 0.8 TH/MM3 (1.0-4.8); MEAN CELL VOLUME 102.9 FL (80.0-100.0); MEAN CORPUSCULAR HEMOGLOBIN 34.4 PG (27.0-34.0); MEAN CORPUSCULAR HGB CONC 33.4 % (32.0-36.0); MONO % 12.7 % (0.0-8.0); PLATELET COUNT 69 TH/MM3 (150-450); RED BLOOD COUNT 2.47 MIL/MM3 (4.00-5.30); RED CELL DISTRIBUTION WIDTH 20.5 % (11.6-17.2); WHITE BLOOD COUNT 5.6 TH/MM3 (4.0-11.0)
[2017-02-03 08:00] LABS: HEMO FLAGS AUTO DIFF
[2017-02-03 08:10] LABS: BICARBONATE 33.2 MEQ/L (21.0-32.0); MAGNESIUM 2.1 MG/DL (1.5-2.5); POTASSIUM 4.3 MEQ/L (3.5-5.1)
[2017-02-03] MEDS: POTASSIUM CHLORIDE 10 MEQ CAP PO SCH ×3 (08:17→18:06)
[2017-02-03] MEDS: TAMSULOSIN HCL 0.4 MG CAP PO SCH (08:17)
[2017-02-03] MEDS: predniSONE 5 MG TAB PO SCH (08:18)
[2017-02-03] MEDS: MAGNESIUM OXIDE 400 MG TAB PO SCH ×2 (08:18→22:12)
[2017-02-03] MEDS: FERROUS SULFATE 325 MG (65 MG ELEMENTAL IRON) TAB PO SCH ×2 (08:18→22:12)
[2017-02-03] MEDS: TIOTROPIUM BROMIDE 18 MCG INH INH SCH (08:19)
[2017-02-03] MEDS: SODIUM CHLORIDE 0.9% FLUSH 10 ML FLUSH IV FLUSH SCH ×2 (08:20→22:12)
[2017-02-03] MEDS: FUROSEMIDE 20 MG/2 ML VIAL IV PUSH SCH ×2 (08:20→18:03)
[2017-02-03] MEDS: DIGOXIN 0.5 MG/2 ML VIAL IV PUSH SCH (08:20)
--- NOTE | 2017-02-03 08:41 | HHI.PR ---
Subjective Remarks She is in bed she is noted more confused today. She feels very tired. She was still with shortness of breath no nausea or vomiting no diarrhea or constipation however she is not eating much. Objective Vitals Vital Signs Date Time Temp Pulse Resp B/P (MAP) Pulse Ox O2 Delivery O2 Flow Rate FiO2 02/03/17 07:44 98 Nasal Cannula 1.00 02/03/17 04:38 112 02/03/17 04:00 94.6 126 18 141/76 (97) 99 02/03/17 00:00 117 02/03/17 00:00 96.6 119 18 120/81 (94) 99 02/02/17 20:00 97.3 94 20 139/80 (99) 95 02/02/17 20:00 Nasal Cannula 2.00 02/02/17 20:00 148 02/02/17 19:32 98 Nasal Cannula 1.00 02/02/17 16:00 97.8 100 16 108/66 (80) 98 02/02/17 12:00 97.3 99 18 113/70 (84) 99 02/02/17 12:00 117 02/02/17 09:32 1.00 02/02/17 09:00 96 Nasal Cannula 2.00 I/O 02/02/17 02/02/17 02/02/17 02/03/17 02/03/17 02/03/17 07:00 15:00 23:00 07:00 15:00 23:00 Intake Total 120 ml 120 ml 200 ml Output Total 800 ml 1100 ml 1000 ml Balance -680 ml -980 ml -800 ml Intake Oral 120 ml 120 ml IV Total 200 ml Output Urine Total 800 ml 1100 ml 1000 ml # Bowel Movements 0 0 Result Diagram: 02/03/17 0700 02/03/17 0700 Imaging Last Impressions Chest X-Ray 02/03/17 06 Signed Impressions: Service Date/Time: Friday, February 03, 2017 06:17 - CONCLUSION: Stable exam. Alda Alberts MD Objective Remarks GENERAL: This is a well-nourished, well-developed patient, appears chronically ill, with sob. CARDIOVASCULAR: Irregularly irregular. No gallops, or rubs. Systolic murmur noted RESPIRATORY: Decreased breath sounds worse on the left. SOB. No wheezes, rales, or rhonchi. GASTROINTESTINAL: Abdomen soft, non-tender, nondistended. No guarding. MUSCULOSKELETAL: Extremities without clubbing, cyanosis with bilateral lower extremity pitting edema. No joint tenderness, effusion, or edema noted. No calf tenderness. Negative Homans sign bilaterally. NEUROLOGICAL: Awake and alert. Cranial nerves II through XII intact. Motor and sensory grossly within normal limits. Five out of 5 muscle strength in all muscle groups. Normal speech. A/P Problem List: (1) UTI (urinary tract infection) ICD Code: N39.0 - Urinary tract infection, site not specified Status: Acute Assessment and Plan This is a 56-year-old female who presents to the emergency department complaining of worsening bilateral lower extremity swelling since she was discharged from [facility] after being treated for left pleural effusion status post thoracotomy. She has history of chronic bilateral lower extremity lymphedema and admits noncompliance to medications and salt restriction. Worsening bilateral lower extremity lymphedema secondary to noncompliance. Hold IV diuresis with Lasix as patient with low BP and monitor renal function and electrolytes. Counseled. Discussed with pulmonary, he doesn't think it's cor pulmonale. Recent echocardiogram shows and pulmonary hypertension. Patient with severe aortic stenosis failed medical management. Consult CTS. Severe Sepsis secondary to UTI with Enterobacter cloacae multidrug resistant, DC cipro and start imipenem. Consult ID, ff. Check urine cultures again tomorrow 02/04. Hypotension. Poss 2/2 sepsis. Hold diuretic if SBP< 110. Afib which is multifactorial including conditions mentioned above, pain, electrolyte abnormalities and meds.Continue digoxin as patient with low BP. Consult cardiology. Patient with severe aortic stenosis with medical management failed. Consult CTS as patient might need valve replacement, However due to thrombocytopenia patient is a very weak candidate for surgery. Consult palliate care. Patient wants aggressive management at this time. Recent echo on 12/20 with normal EF. Will monitor on telemetry. Check TSH nl Acute encephalopathy secondary to sepsis, afib, multiple comorbidities. Will do CT head also COPD, chronic respiratory failure and left pleural effusion status post thoracotomy. Continue nebulizations, oxygen and taper steroids. Pulm ff Pancytopenia. Evaluated by hematology during last hospitalization refused bone marrow biopsy Hypokalemia. Currently on potassium 20 mg 3 times a day supplementation. Repeat BMP and magnesium in the morning Deconditioning. Physical therapy evaluation Discontinue Cabrera catheter. Patient was requesting to get Cabrera catheter and will be discontinued today in the morning. Patient aware of risk of infection. Wound care DVT prophylaxis with Lovenox Discussed Condition With Patient, nurse DC plan: patient is very sick at this time. CTS consulted for eval, although due to thrombocytopenia patient is a poor candidate for surgery. Consult palliative also ff. Patient wants aggressive measure at this time. Poor prognosis Problem Qualifiers (1) UTI (urinary tract infection): Qualified Codes: N30.00 - Acute cystitis without hematuria Marjorie Ratliff MD Feb 03, 2017 08:41
[2017-02-03 09:09] LABS: PLATELET ESTIMATE SMEAR LOW (NORMAL); PLATELET MORPHOLOGY NORMAL (NORMAL); SCAN/DIFF AUTO DIFF CONFIRMED
--- NOTE | 2017-02-03 11:52 | PD.CARD.PN ---
Subjective Subjective Remarks somnolent, lethargic in nad Objective Medications Current Medications Medications (Trade) Dose Ordered Sig/Armin Route Start Time Stop Time Status Last Admin (Lasix Inj) 20 mg BID@09,18 IV PUSH 01/31/17 09:00 02/03/17 08:20 (NS Flush) 2 ml UNSCH PRN IV FLUSH 01/31/17 04:45 (NS Flush) 2 ml BID IV FLUSH 01/31/17 09:00 02/03/17 08:20 (Tylenol) 650 mg Q4H PRN PO 01/31/17 04:45 02/01/17 09:57 (Zofran Inj) 4 mg Q6H PRN IVP 01/31/17 04:45 (Lovenox Inj) 40 mg Q24H SQ 01/31/17 06:00 02/03/17 05:27 (Narcan Inj) 0.4 mg UNSCH PRN IV PUSH 01/31/17 04:45 (Milk Of Magnesia Liq) 30 ml Q12H PRN PO 01/31/17 04:45 (Senokot) 17.2 mg Q12H PRN PO 01/31/17 04:45 (Dulcolax Supp) 10 mg DAILY PRN RECTAL 01/31/17 04:45 (Lactulose Liq) 30 ml DAILY PRN PO 01/31/17 04:45 (Urecholine) 25 mg Q8HR PO 01/31/17 06:00 02/03/17 05:26 (Ferrous Sulfate) 325 mg BID PO 01/31/17 09:00 02/03/17 08:18 (Percocet 10-325 Mg) 1 tab Q4H PRN PO 01/31/17 04:45 02/03/17 05:27 (Deltasone) 15 mg DAILY PO 01/31/17 09:00 02/03/17 08:18 (Flomax) 0.4 mg DAILY PO 01/31/17 09:00 02/03/17 08:17 (Spiriva Inh) 18 mcg DAILY INH 01/31/17 09:00 02/03/17 08:19 (KCl) 20 meq TID PO 01/31/17 13:00 02/03/17 08:17 (Duoneb Neb) 1 ampule QID NEB PRN NEB 01/31/17 12:00 02/01/17 18:51 (Lanoxin Inj) 0.25 mg DAILY IV PUSH 02/02/17 09:00 02/03/17 08:20 (Mag-Ox) 400 mg Q12HR PO 02/01/17 21:00 02/03/17 08:18 Imipenem/ Cilastatin Sodium 500 mg/Sodium Chloride 100 ml @ 200 mls/hr Q6H IV 02/02/17 12:00 02/03/17 05:26 Vital Signs / I&O Vital Signs Date Time Temp Pulse Resp B/P (MAP) Pulse Ox O2 Delivery O2 Flow Rate FiO2 02/03/17 08:03 98.0 112 18 108/80 (89) 98 02/03/17 07:44 98 Nasal Cannula 1.00 02/03/17 04:38 112 02/03/17 04:00 94.6 126 18 141/76 (97) 99 02/03/17 00:00 117 02/03/17 00:00 96.6 119 18 120/81 (94) 99 02/02/17 20:00 97.3 94 20 139/80 (99) 95 02/02/17 20:00 Nasal Cannula 2.00 02/02/17 20:00 148 02/02/17 19:32 98 Nasal Cannula 1.00 02/02/17 16:00 97.8 100 16 108/66 (80) 98 02/02/17 12:00 97.3 99 18 113/70 (84) 99 02/02/17 12:00 117 I/O 02/02/17 02/02/17 02/02/17 02/03/17 02/03/17 02/03/17 07:00 15:00 23:00 07:00 15:00 23:00 Intake Total 120 ml 120 ml 200 ml Output Total 800 ml 1100 ml 1000 ml Balance -680 ml -980 ml -800 ml Intake Oral 120 ml 120 ml IV Total 200 ml Output Urine Total 800 ml 1100 ml 1000 ml # Bowel Movements 0 0 Physical Exam GENERAL: SKIN: Warm and dry. HEAD: Normocephalic. EYES: No scleral icterus. No injection or drainage. NECK: Supple, trachea midline. No JVD or lymphadenopathy. CARDIOVASCULAR: Regular rate and rhythm without murmurs, gallops, or rubs. RESPIRATORY: Breath sounds equal bilaterally. No accessory muscle use. GASTROINTESTINAL: Abdomen soft, non-tender, nondistended. MUSCULOSKELETAL: No cyanosis, or edema. BACK: Nontender without obvious deformity. No CVA tenderness. Laboratory Laboratory Tests Test 02/02/17 12:30 02/02/17 14:01 02/03/17 07:00 Urine Color YELLOW Urine Turbidity HAZY Urine pH 6.0 Urine Specific [place] 1.009 Urine Protein NEG mg/dL Urine Glucose (UA) NEG mg/dL Urine Ketones NEG mg/dL Urine Occult Blood NEG Urine Nitrite NEG Urine Bilirubin NEG Urine Urobilinogen LESS THAN 2.0 MG/DL Urine Leukocyte Esterase LARGE Urine RBC 5 /hpf Urine WBC 122 /hpf Urine WBC Clumps FEW Urine Squamous Epithelial Cells 1 /hpf Urine Bacteria OCC /hpf Urine Hyaline Casts 19 /lpf Urine Mucus FEW /lpf White Blood Count 3.9 TH/MM3 5.6 TH/MM3 Red Blood Count 2.41 MIL/MM3 2.47 MIL/MM3 Hemoglobin 8.2 GM/DL 8.5 GM/DL Hematocrit 24.8 % 25.4 % Mean Corpuscular Volume 102.9 FL 102.9 FL Mean Corpuscular Hemoglobin 34.1 PG 34.4 PG Mean Corpuscular Hemoglobin Concent 33.1 % 33.4 % Red Cell Distribution Width 20.8 % 20.5 % Platelet Count 58 TH/MM3 69 TH/MM3 Mean Platelet Volume 10.3 FL 11.5 FL Neutrophils (%) (Auto) 86.4 % 73.0 % Lymphocytes (%) (Auto) 6.2 % 14.2 % Monocytes (%) (Auto) 7.3 % 12.7 % Eosinophils (%) (Auto) 0.0 % 0.1 % Basophils (%) (Auto) 0.1 % 0.0 % Neutrophils # (Auto) 3.4 TH/MM3 4.1 TH/MM3 Lymphocytes # (Auto) 0.2 TH/MM3 0.8 TH/MM3 Monocytes # (Auto) 0.3 TH/MM3 0.7 TH/MM3 Eosinophils # (Auto) 0.0 TH/MM3 0.0 TH/MM3 Basophils # (Auto) 0.0 TH/MM3 0.0 TH/MM3 CBC Comment AUTO DIFF AUTO DIFF Differential Comment AUTO DIFF CONFIRMED AUTO DIFF CONFIRMED Platelet Estimate LOW LOW Platelet Morphology Comment NORMAL NORMAL Blood Urea Nitrogen 14 MG/DL 11 MG/DL Creatinine 0.41 MG/DL 0.33 MG/DL Random Glucose 110 MG/DL 103 MG/DL Total Protein 5.1 GM/DL Albumin 1.9 GM/DL Calcium Level 8.1 MG/DL 8.4 MG/DL Alkaline Phosphatase 175 U/L Aspartate Amino Transf (AST/SGOT) 20 U/L Alanine Aminotransferase (ALT/SGPT) 15 U/L Total Bilirubin 0.6 MG/DL Sodium Level 132 MEQ/L 133 MEQ/L Potassium Level 4.4 MEQ/L 4.3 MEQ/L Chloride Level 95 MEQ/L 95 MEQ/L Carbon Dioxide Level 33.8 MEQ/L 33.2 MEQ/L Anion Gap 3 MEQ/L 5 MEQ/L Estimat Glomerular Filtration Rate 160 ML/MIN 206 ML/MIN Magnesium Level 2.1 MG/DL B-Type Natriuretic Peptide 1841 PG/ML Imaging Last 24 hours Impressions Chest X-Ray 02/03/17 0600 Signed Impressions: Service Date/Time: Friday, February 03, 2017 06:17 - CONCLUSION: Stable exam. Alda Alberts MD Assessment and Plan Problem List: (1) COPD (chronic obstructive pulmonary disease) ICD Codes: J44.9 - Chronic obstructive pulmonary disease, unspecified Status: Chronic (2) Pleural effusion on left ICD Codes: J90 - Pleural effusion, not elsewhere classified Status: Acute (3) Aortic stenosis ICD Codes: I35.0 - Nonrheumatic aortic (valve) stenosis (4) Pulmonary HTN ICD Codes: I27.20 - Pulmonary hypertension, unspecified (5) pancytopenia, etiology undetermined, suspect MDS (6) new atrial fibrillation, RVR (7) moderately severe COPD (8) congestive heart failure, persistent pleural effusions Assessment and Plan 1.) Severe - failing medical management, continue lasix as tolerated, f/u ct surg and palliative care consults, bnp, bmp in am; d/w Dr Ratliff and Sd Yu MD Feb 03, 2017 11:52
--- NOTE | 2017-02-03 13:36 | HHI.HCPN ---
Reason for visit a. To assist with evaluation and management of symptoms including: Dyspnea , weakness b. To assist medical decision maker(s) with: better understanding of current medical conditions; weighing benefits/burdens of medical treatment options; making medical treatment decisions. . Subjective/Interval History INTERVAL NOTE: The patient is more lethargic, somewhat somnolent today. She did have a Percocet this morning but that was about 4 or 5 hours prior to my visit. Her BNP remains high, her anemia and thrombocytopenia continues... Awaiting evaluation by CV surgery. If the patient is not a candidate for an aggressive intervention to repair or replace her aortic valve, then she would be a likely candidate for hospice services. . Advance Directives Living Will: Completed, but not made available Health Care Surrogate: Never completed Durable Power of [place] Machine Operator: Never completed Objective Vital Signs Date Time Temp Pulse Resp B/P (MAP) Pulse Ox O2 Delivery O2 Flow Rate FiO2 02/03/17 12:03 98.1 92 18 94/54 (67) 95 02/03/17 08:03 98.0 112 18 108/80 (89) 98 02/03/17 08:00 110 02/03/17 08:00 Nasal Cannula 2.00 02/03/17 07:44 98 Nasal Cannula 1.00 02/03/17 04:38 112 02/03/17 04:00 94.6 126 18 141/76 (97) 99 02/03/17 00:00 117 02/03/17 00:00 96.6 119 18 120/81 (94) 99 02/02/17 20:00 97.3 94 20 139/80 (99) 95 02/02/17 20:00 Nasal Cannula 2.00 02/02/17 20:00 148 02/02/17 19:32 98 Nasal Cannula 1.00 02/02/17 16:00 97.8 100 16 108/66 (80) 98 Intake & Output 02/03/17 02/03/17 07:00 19:00 Intake Total 200 ml Output Total 1000 ml Balance -800 ml IV Total 200 ml Output Urine Total 1000 ml Physical Exam CONSTITUTIONAL/GENERAL: This is a chronically ill, very weak patient, in no respiratory distress while lying still in the bed. Lethargic TUBES/LINES/DRAINS: Nasal oxygen, peripheral IVs NECK: Trachea midline. Supple, nontender. No palpable thyroid enlargement or nodularity. CARDIOVASCULAR: Irregularly irregular rhythm without murmurs, gallops, or rubs. No JVD. Peripheral pulses diminished. RESPIRATORY/CHEST: Symmetric, but mildly labored respirations. Markedly diminished breath sounds bilateral, a couple rhonchi. GASTROINTESTINAL: Abdomen soft, non-tender, nondistended. No hepato-splenomegaly , or palpable masses. No guarding. Bowel sounds present. MUSCULOSKELETAL: Extremities without clubbing or cyanosis, but still 1+ edema. No joint tenderness or effusion noted. No calf tenderness. No mottling or clubbing. LYMPHATICS: No palpable cervical or supraclavicular adenopathy. NEUROLOGICAL: Lethargic, falls asleep within 30 seconds, but answers questions appropriately when awake. PSYCHIATRIC: No obvious anxiety/depression. no apparent hallucinations or other psychotic thought process. . Diagnostic Tests Laboratory Laboratory Tests Test 02/01/17 05:29 02/01/17 17:31 02/02/17 05:47 02/02/17 12:30 White Blood Count 6.0 TH/MM3 (4.0-11.0) 4.6 TH/MM3 (4.0-11.0) Red Blood Count 2.42 MIL/MM3 (4.00-5.30) 2.27 MIL/MM3 (4.00-5.30) Hemoglobin 8.4 GM/DL (11.6-15.3) 7.9 GM/DL (11.6-15.3) Hematocrit 25.0 % (35.0-46.0) 23.1 % (35.0-46.0) Mean Corpuscular Volume 103.4 FL (80.0-100.0) 101.7 FL (80.0-100.0) Mean Corpuscular Hemoglobin 34.6 PG (27.0-34.0) 34.9 PG (27.0-34.0) Mean Corpuscular Hemoglobin Concent 33.4 % (32.0-36.0) 34.3 % (32.0-36.0) Red Cell Distribution Width 20.5 % (11.6-17.2) 20.4 % (11.6-17.2) Platelet Count 73 TH/MM3 (150-450) 53 TH/MM3 (150-450) Mean Platelet Volume 11.3 FL (7.0-11.0) 11.2 FL (7.0-11.0) Neutrophils (%) (Auto) 76.4 % (16.0-70.0) Lymphocytes (%) (Auto) 7.8 % (9.0-44.0) Monocytes (%) (Auto) 15.5 % (0.0-8.0) Eosinophils (%) (Auto) 0.2 % (0.0-4.0) Basophils (%) (Auto) 0.1 % (0.0-2.0) Neutrophils # (Auto) 4.6 TH/MM3 (1.8-7.7) Lymphocytes # (Auto) 0.5 TH/MM3 (1.0-4.8) Monocytes # (Auto) 0.9 TH/MM3 (0-0.9) Eosinophils # (Auto) 0.0 TH/MM3 (0-0.4) Basophils # (Auto) 0.0 TH/MM3 (0-0.2) CBC Comment AUTO DIFF Differential Comment AUTO DIFF CONFIRMED Blood Urea Nitrogen 17 MG/DL (7-18) 14 MG/DL (7-18) Creatinine 0.49 MG/DL (0.50-1.00) 0.49 MG/DL (0.50-1.00) Random Glucose 138 MG/DL (74-106) 90 MG/DL (74-106) Calcium Level 8.3 MG/DL (8.5-10.1) 8.5 MG/DL (8.5-10.1) Magnesium Level 1.7 MG/DL (1.5-2.5) 2.0 MG/DL (1.5-2.5) Sodium Level 135 MEQ/L (136-145) 133 MEQ/L (136-145) Potassium Level 4.6 MEQ/L (3.5-5.1) 4.4 MEQ/L (3.5-5.1) Chloride Level 99 MEQ/L (98-107) 96 MEQ/L (98-107) Carbon Dioxide Level 29.2 MEQ/L (21.0-32.0) 31.4 MEQ/L (21.0-32.0) Anion Gap 7 MEQ/L (5-15) 6 MEQ/L (5-15) Estimat Glomerular Filtration Rate 131 ML/MIN (>89) 131 ML/MIN (>89) Thyroid Stimulating Hormone 3rd Gen 2.070 uIU/ML (0.358-3.740) Blood Gas Puncture Site RT RADIAL Blood Gas Patient Temperature 98.6 Blood Gas HCO3 30 mmol/L (22-26) Blood Gas Base Excess 4.6 mmol/L (-2-2) Blood Gas Oxygen Saturation 95 % (90-100) Arterial Blood pH 7.35 (7.380-7.420) Arterial Blood Partial Pressure CO2 55 mmHg (38-42) Arterial Blood Partial Pressure O2 100 mmHg (61-120) Arterial Blood Oxygen Content 12.2 Vol % (12.0-20.0) Arterial Blood Carboxyhemoglobin 1.7 % (0-4) Arterial Blood Methemoglobin 0.9 % (0-2) Blood Gas Hemoglobin 9.0 G/DL (12.0-16.0) Oxygen Delivery Device 1 LITER NC Blood Gas Liter Flow 1 L/M B-Type Natriuretic Peptide 1324 PG/ML (0-100) Urine Color YELLOW (YELLW/STRAW) Urine Turbidity HAZY (CLEAR) Urine pH 6.0 (5.0-8.5) Urine Specific [place] 1.009 (1.002-1.035) Urine Protein NEG mg/dL (NEG-TRACE) Urine Glucose (UA) NEG mg/dL (NEG) Urine Ketones NEG mg/dL (NEG) Urine Occult Blood NEG (NEG) Urine Nitrite NEG (NEG) Urine Bilirubin NEG (NEG) Urine Urobilinogen LESS THAN 2.0 MG/DL (LESS Urine Leukocyte Esterase LARGE (NEG) Urine RBC 5 /hpf (0-3) Urine WBC 122 /hpf (0-5) Urine WBC Clumps FEW (NONE) Urine Squamous Epithelial Cells 1 /hpf (0-5) Urine Bacteria OCC /hpf (NONE) Urine Hyaline Casts 19 /lpf (RARE) Urine Mucus FEW /lpf (OCC) Test 02/02/17 14:01 02/03/17 07:00 White Blood Count 3.9 TH/MM3 (4.0-11.0) 5.6 TH/MM3 (4.0-11.0) Red Blood Count 2.41 MIL/MM3 (4.00-5.30) 2.47 MIL/MM3 (4.00-5.30) Hemoglobin 8.2 GM/DL (11.6-15.3) 8.5 GM/DL (11.6-15.3) Hematocrit 24.8 % (35.0-46.0) 25.4 % (35.0-46.0) Mean Corpuscular Volume 102.9 FL (80.0-100.0) 102.9 FL (80.0-100.0) Mean Corpuscular Hemoglobin 34.1 PG (27.0-34.0) 34.4 PG (27.0-34.0) Mean Corpuscular Hemoglobin Concent 33.1 % (32.0-36.0) 33.4 % (32.0-36.0) Red Cell Distribution Width 20.8 % (11.6-17.2) 20.5 % (11.6-17.2) Platelet Count 58 TH/MM3 (150-450) 69 TH/MM3 (150-450) Mean Platelet Volume 10.3 FL (7.0-11.0) 11.5 FL (7.0-11.0) Neutrophils (%) (Auto) 86.4 % (16.0-70.0) 73.0 % (16.0-70.0) Lymphocytes (%) (Auto) 6.2 % (9.0-44.0) 14.2 % (9.0-44.0) Monocytes (%) (Auto) 7.3 % (0.0-8.0) 12.7 % (0.0-8.0) Eosinophils (%) (Auto) 0.0 % (0.0-4.0) 0.1 % (0.0-4.0) Basophils (%) (Auto) 0.1 % (0.0-2.0) 0.0 % (0.0-2.0) Neutrophils # (Auto) 3.4 TH/MM3 (1.8-7.7) 4.1 TH/MM3 (1.8-7.7) Lymphocytes # (Auto) 0.2 TH/MM3 (1.0-4.8) 0.8 TH/MM3 (1.0-4.8) Monocytes # (Auto) 0.3 TH/MM3 (0-0.9) 0.7 TH/MM3 (0-0.9) Eosinophils # (Auto) 0.0 TH/MM3 (0-0.4) 0.0 TH/MM3 (0-0.4) Basophils # (Auto) 0.0 TH/MM3 (0-0.2) 0.0 TH/MM3 (0-0.2) CBC Comment AUTO DIFF AUTO DIFF Differential Comment AUTO DIFF CONFIRMED AUTO DIFF CONFIRMED Platelet Estimate LOW (NORMAL) LOW (NORMAL) Platelet Morphology Comment NORMAL (NORMAL) NORMAL (NORMAL) Blood Urea Nitrogen 14 MG/DL (7-18) 11 MG/DL (7-18) Creatinine 0.41 MG/DL (0.50-1.00) 0.33 MG/DL (0.50-1.00) Random Glucose 110 MG/DL (74-106) 103 MG/DL (74-106) Total Protein 5.1 GM/DL (6.4-8.2) Albumin 1.9 GM/DL (3.4-5.0) Calcium Level 8.1 MG/DL (8.5-10.1) 8.4 MG/DL (8.5-10.1) Alkaline Phosphatase 175 U/L (45-117) Aspartate Amino Transf (AST/SGOT) 20 U/L (15-37) Alanine Aminotransferase (ALT/SGPT) 15 U/L (10-53) Total Bilirubin 0.6 MG/DL (0.2-1.0) Sodium Level 132 MEQ/L (136-145) 133 MEQ/L (136-145) Potassium Level 4.4 MEQ/L (3.5-5.1) 4.3 MEQ/L (3.5-5.1) Chloride Level 95 MEQ/L (98-107) 95 MEQ/L (98-107) Carbon Dioxide Level 33.8 MEQ/L (21.0-32.0) 33.2 MEQ/L (21.0-32.0) Anion Gap 3 MEQ/L (5-15) 5 MEQ/L (5-15) Estimat Glomerular Filtration Rate 160 ML/MIN (>89) 206 ML/MIN (>89) Magnesium Level 2.1 MG/DL (1.5-2.5) B-Type Natriuretic Peptide 1841 PG/ML (0-100) Result Diagram: 02/03/17 0700 02/03/17 0700 Microbiology Microbiology Date/Time Source Procedure Growth Status 02/02/17 14:08 Blood Other Aerobic Blood Culture - Preliminary NO GROWTH IN 1 DAY Resulted 02/02/17 14:08 Blood Other Anaerobic Blood Culture - Preliminary NO GROWTH IN 1 DAY Resulted 02/02/17 14:01 Blood Other Aerobic Blood Culture - Preliminary NO GROWTH IN 1 DAY Resulted 02/02/17 14:01 Blood Other Anaerobic Blood Culture - Preliminary NO GROWTH IN 1 DAY Resulted Imaging Last Impressions Chest X-Ray 02/03/17 0600 Signed Impressions: Service Date/Time: Friday, February 03, 2017 06:17 - CONCLUSION: Stable exam. 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 Spiritual: The patient says she is spiritual and her own way, but is not affiliated with any sikhism or clergy, and does not want theatre director visits. Legal: The patient has capacity for decision-making, and her Feliberto will be the proxy decision-maker when she loses that capacity. Ethical issues impacting care: None . Important Contacts : Feliberto Steven [phone] . 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 With her profound debility and weakness, her overall prognosis is pretty poor. . Code Status: Full Code Plan * FULL CODE, and she would accept treatment with life support "for a while but not for a long time since that wouldn't really be on life." She is unable to define how long... * DECISION-MAKING: The patient has capacity for decision-making, and her Feliberto will be the proxy decision-maker when she loses that capacity. * GOALS: The patient wants to continue aggressive treatment for now, and she is looking forward to the evaluation and recommendations now from cardiovascular surgery; she is aware that her marked debility, deconditioning, and her COPD would make any surgical intervention more difficult. At this time, she does want to continue aggressive care at this time including mechanical ventilation and resuscitation; however, she makes it clear that if she is on a ventilator for some period of time and is not going to get better, she would want to have it withdrawn and be allowed to peacefully. * SYMPTOMS: Her RVR seems to be better controlled, her dyspnea is not bad while she is lying still in the bed. She does not have pain at this time. I have no additional medication recommendations at this time. I discussed her lethargy/ somnolence with Dr. Ratliff.. * Awaiting CV surgery evaluation and recommendations; if the patient is found to NOT be a candidate for valve repair or replacement, she likely would be appropriate for hospice services. * Palliative Care will continue to follow the patient during this hospitalization. . Time Spent Total Floor Time (mins): 38 Face to Face Time (mins): 23 >50% Counseling/Coord of Care: Yes Attestation To help prompt me to consider important information that might be impacting today's encounter and assessment, information from prior notes written by myself or my colleagues may have been "brought forward" into today's note. My signature on this note, however, is an attestation that I personally performed the exam, history, and/or decision-making noted today, and, unless otherwise indicated, the interactions with patient, family, and staff as well as the review of records all occurred today. I also attest that the listed assessment and stated plan reflect my best clinical judgment today based on the combination of historical information, prior notes, and today's exam/ interactions. When time spent is documented, it refers only to time spent today by the signer, or if indicated, combined time spent today by collaborating physician/nurse practitioner. Kayleen Whipple MD Feb 03, 2017 13:36
[2017-02-03 16:44] LABS: DIGOXIN 2.2 NG/ML (0.8-2.0)
--- NOTE | 2017-02-03 17:04 | PD.CAR.PN ---
CVT Progress Note Subjective/Hospital Course: sts data RISK SCORES About the STS Risk Calculator Procedure: AV Replacement Risk of Mortality: 5.355% Morbidity or Mortality: 20.865% Long Length of Stay: 10.22% Short Length of Stay: 31.09% Permanent Stroke: 0.704% Prolonged Ventilation: 14.854% DSW Infection: 0.158% Renal Failure: 3.276% Reoperation: 7.893% Objective: Vital Signs Date Time Temp Pulse Resp B/P (MAP) Pulse Ox O2 Delivery O2 Flow Rate FiO2 02/03/17 12:03 98.1 92 18 94/54 (67) 95 02/03/17 08:03 98.0 112 18 108/80 (89) 98 02/03/17 08:00 110 02/03/17 08:00 Nasal Cannula 2.00 02/03/17 07:44 98 Nasal Cannula 1.00 02/03/17 04:38 112 02/03/17 04:00 94.6 126 18 141/76 (97) 99 02/03/17 00:00 117 02/03/17 00:00 96.6 119 18 120/81 (94) 99 02/02/17 20:00 97.3 94 20 139/80 (99) 95 02/02/17 20:00 Nasal Cannula 2.00 02/02/17 20:00 148 02/02/17 19:32 98 Nasal Cannula 1.00 Labs: Laboratory Tests Test 02/03/17 07:00 White Blood Count 5.6 TH/MM3 (4.0-11.0) Red Blood Count 2.47 MIL/MM3 (4.00-5.30) Hemoglobin 8.5 GM/DL (11.6-15.3) Hematocrit 25.4 % (35.0-46.0) Mean Corpuscular Volume 102.9 FL (80.0-100.0) Mean Corpuscular Hemoglobin 34.4 PG (27.0-34.0) Mean Corpuscular Hemoglobin Concent 33.4 % (32.0-36.0) Red Cell Distribution Width 20.5 % (11.6-17.2) Platelet Count 69 TH/MM3 (150-450) Mean Platelet Volume 11.5 FL (7.0-11.0) Neutrophils (%) (Auto) 73.0 % (16.0-70.0) Lymphocytes (%) (Auto) 14.2 % (9.0-44.0) Monocytes (%) (Auto) 12.7 % (0.0-8.0) Eosinophils (%) (Auto) 0.1 % (0.0-4.0) Basophils (%) (Auto) 0.0 % (0.0-2.0) Neutrophils # (Auto) 4.1 TH/MM3 (1.8-7.7) Lymphocytes # (Auto) 0.8 TH/MM3 (1.0-4.8) Monocytes # (Auto) 0.7 TH/MM3 (0-0.9) Eosinophils # (Auto) 0.0 TH/MM3 (0-0.4) Basophils # (Auto) 0.0 TH/MM3 (0-0.2) CBC Comment AUTO DIFF Differential Comment AUTO DIFF CONFIRMED Platelet Estimate LOW (NORMAL) Platelet Morphology Comment NORMAL (NORMAL) Blood Urea Nitrogen 11 MG/DL (7-18) Creatinine 0.33 MG/DL (0.50-1.00) Random Glucose 103 MG/DL (74-106) Calcium Level 8.4 MG/DL (8.5-10.1) Magnesium Level 2.1 MG/DL (1.5-2.5) Sodium Level 133 MEQ/L (136-145) Potassium Level 4.3 MEQ/L (3.5-5.1) Chloride Level 95 MEQ/L (98-107) Carbon Dioxide Level 33.2 MEQ/L (21.0-32.0) Anion Gap 5 MEQ/L (5-15) Estimat Glomerular Filtration Rate 206 ML/MIN (>89) B-Type Natriuretic Peptide 1841 PG/ML (0-100) Digoxin Level 2.2 NG/ML (0.8-2.0) Result Diagram: 02/03/17 0700 02/03/17 0700 (1) COPD (chronic obstructive pulmonary disease) (2) Pleural effusion on left (3) Aortic stenosis (4) Pulmonary HTN (5) pancytopenia, etiology undetermined, suspect MDS (6) new atrial fibrillation, RVR (7) moderately severe COPD (8) congestive heart failure, persistent pleural effusions Alda Mcclain Feb 03, 2017 17:04
--- NOTE | 2017-02-03 17:26 | RADRPT ---
EXAM DATE/TIME: 02/03/2017 16:25 [place] COMPARISON: No previous studies available for comparison. INDICATIONS : Altered mental status RADIATION DOSE: 40.43 CTDIvol (mGy) MEDICAL HISTORY : None SURGICAL HISTORY : None. ENCOUNTER: Initial ACUITY: 1 day PAIN SCALE: 5/10 LOCATION: cranial TECHNIQUE: Multiple contiguous axial images were obtained of the head. Using automated exposure control and adj ustment of the mA and/or kV according to patient size, radiation dose was kept as low as reasonably a chievable to obtain optimal diagnostic quality images. DICOM format image data is available electro nically for review and comparison. FINDINGS: CEREBRUM: The ventricles are normal for age. No evidence of midline shift, mass lesion, hemorrhage or acute in farction. No extra-axial fluid collections are seen. Moderate periventricular white matter changes are noted. POSTERIOR FOSSA: The cerebellum and brainstem are intact. The 4th ventricle is midline. The cerebellopontine angle i s unremarkable. EXTRACRANIAL: The visualized portion of the orbits is intact. SKULL: The calvaria is intact. No evidence of skull fracture. CONCLUSION: Periventricular white matter changes otherwise negative. Raf Lindsay MD FACR on February 03, 2017 at 17:22 Board Certified Radiologist. This report was verified electronically.
--- NOTE | 2017-02-03 18:30 | HHI.PR ---
Subjective Remarks Feels weak. Cardiac Evaluation done and AVR was suggested. Not a good candidate for surgery. On o2 4 L. On Imipenem. Poor intake. Needs Bone marrow biopsy . Objective Vital Signs Date Time Temp Pulse Resp B/P (MAP) Pulse Ox O2 Delivery O2 Flow Rate FiO2 02/03/17 12:03 98.1 92 18 94/54 (67) 95 02/03/17 08:03 98.0 112 18 108/80 (89) 98 02/03/17 08:00 110 02/03/17 08:00 Nasal Cannula 2.00 02/03/17 07:44 98 Nasal Cannula 1.00 02/03/17 04:38 112 02/03/17 04:00 94.6 126 18 141/76 (97) 99 02/03/17 00:00 117 02/03/17 00:00 96.6 119 18 120/81 (94) 99 02/02/17 20:00 97.3 94 20 139/80 (99) 95 02/02/17 20:00 Nasal Cannula 2.00 02/02/17 20:00 148 02/02/17 19:32 98 Nasal Cannula 1.00 I/O 02/02/17 02/02/17 02/02/17 02/03/17 02/03/17 02/03/17 07:00 15:00 23:00 07:00 15:00 23:00 Intake Total 120 ml 120 ml 200 ml 100 ml Output Total 800 ml 1100 ml 1000 ml Balance -680 ml -980 ml -800 ml 100 ml Intake Oral 120 ml 120 ml IV Total 200 ml 100 ml Output Urine Total 800 ml 1100 ml 1000 ml # Bowel Movements 0 0 Result Diagram: 02/03/17 0702/03/17 0700 Objective Remarks GENERAL: This is an averagely built middle-aged white female who is pale and not dyspneic at rest. HEENT: Head normocephalic. Pupils are reactive and equal. Tongue moist. Throat is clear. NECK: No bruits. Mild venous distension. Trachea midline. No thyroid enlargement. CHEST: diminished movements of the left chest. Breath sounds diminished over the left mid and lower chest with occasional crackles in the left lung field. Right chest is clear. CARDIAC: Heart sounds are regular S1-S2 with a systolic ejection murmur 2/6 at the left sternal border. ABDOMEN: Soft, protuberant without masses. No organomegaly. EXTREMITIES: 3+ edema. Decreased pulses. No calf tenderness. NEUROLOGIC: Reflexes 1+. The patient does move all extremities well with no gross motor deficits. Cranial nerves grossly intact. SKIN: No lesions noted. Assessment and Plan Assessment and Plan IMPRESSION 1. Chronic bilateral leg edema (lymphedema). 2. Sepsis with UTI 3. COPD and chronic bronchitis 4. Severe deconditioning. 5. Status post VAT thoracotomy left chest with decortication of chronic loculated effusion 6. Atelectasis left lower lung. 7. Possible CHF. Plan : 1. Continue Diuretic 2. O2 at 2 L. 3. Nebs qid , duoneb. 4. Bone marrow Biopsy 5. IS q2 h. 6. Increase diet to soft 7. Antibiotics per ID 8. Prognosis guarded. Venessa Chung MD Feb 03, 2017 18:29
[2017-02-04] VITALS (14 sets, daily range): BP systolic 95–114; BP diastolic 50–81; PULSE 79–129; RESP 16–19; TEMP 97.2–98.2; O2SAT 97–100
[2017-02-04] MEDS: IMIPENEM/CILASTATIN INJ 500 MG in SODIUM CHLORIDE 0.9% INJ 100 ML IV SCH ×5 (01:08→23:11)
[2017-02-04] MEDS: BETHANECHOL CHL 25 MG TAB PO SCH ×3 (06:26→21:13)
[2017-02-04] MEDS: ENOXAPARIN SODIUM 40 MG/0.4 ML SYRINGE SQ SCH (06:26)
[2017-02-04 07:29] LABS: AUTOMATED NEUTROPHIL # 3.3 TH/MM3 (1.8-7.7); BASOPHIL % 0.2 % (0.0-2.0); EOSINOPHIL % 0.8 % (0.0-4.0); HEMATOCRIT 24.1 % (35.0-46.0); LYMPH % 19.7 % (9.0-44.0); LYMPHOCYTE # 0.9 TH/MM3 (1.0-4.8); MEAN CORPUSCULAR HEMOGLOBIN 34.5 PG (27.0-34.0); MEAN CORPUSCULAR HGB CONC 33.5 % (32.0-36.0); MONO % 8.4 % (0.0-8.0); NEUT % 70.9 % (16.0-70.0); PLATELET COUNT 69 TH/MM3 (150-450); RED BLOOD COUNT 2.33 MIL/MM3 (4.00-5.30); RED CELL DISTRIBUTION WIDTH 20.4 % (11.6-17.2); WHITE BLOOD COUNT 4.7 TH/MM3 (4.0-11.0)
[2017-02-04 07:34] LABS: HEMO FLAGS AUTO DIFF
[2017-02-04 07:52] LABS: BICARBONATE 36.7 MEQ/L (21.0-32.0); MAGNESIUM 2.2 MG/DL (1.5-2.5); POTASSIUM 4.4 MEQ/L (3.5-5.1)
--- NOTE | 2017-02-04 08:41 | HHI.PR ---
Subjective Remarks Patient in bed she is more awake today and appears improved. Says she feels some improvement today still with sob, palpitations. No chest pain. Feels very tired. No n/v/d/c. Doesn't eat much. Objective Vitals Vital Signs Date Time Temp Pulse Resp B/P (MAP) Pulse Ox O2 Delivery O2 Flow Rate FiO2 02/04/17 04:02 111 02/04/17 04:00 97.4 101 16 107/72 (84) 100 02/04/17 00:02 117 02/04/17 00:00 97.5 92 16 95/50 (65) 100 02/03/17 22:10 Nasal Cannula 3.00 02/03/17 20:03 118 02/03/17 20:00 99.1 80 16 116/56 (76) 95 02/03/17 16:03 97.8 105 17 100/54 (69) 95 02/03/17 12:03 98.1 92 18 94/54 (67) 95 I/O 02/03/17 02/03/17 02/03/17 02/04/17 02/04/17 02/04/17 07:00 15:00 23:00 07:00 15:00 23:00 Intake Total 200 ml 100 ml 0 ml 200 ml Output Total 1000 ml 1500 ml 1600 ml Balance -800 ml 100 ml -1500 ml -1400 ml Intake Oral 0 ml IV Total 200 ml 100 ml 200 ml Output Urine Total 1000 ml 1500 ml 1600 ml # Bowel Movements 0 Result Diagram: 02/04/17 0536 02/04/17 0536 Imaging Last Impressions Chest X-Ray 02/03/17 0600 Signed Impressions: Service Date/Time: Friday, February 03, 2017 06:17 - CONCLUSION: Stable exam. Alda Alberts MD Head CT 02/03/17 0000 Signed Impressions: Service Date/Time: Friday, February 03, 2017 16:25 - CONCLUSION: Periventricular white matter changes otherwise negative. Raf Lindsay MD FACR Objective Remarks GENERAL: This is a well-nourished, well-developed patient, appears chronically ill, with sob. CARDIOVASCULAR: Irregularly irregular. No gallops, or rubs. Systolic murmur noted RESPIRATORY: Decreased breath sounds worse on the left. SOB. No wheezes, rales, or rhonchi. GASTROINTESTINAL: Abdomen soft, non-tender, nondistended. No guarding. MUSCULOSKELETAL: Extremities without clubbing, cyanosis with bilateral lower extremity pitting edema. No joint tenderness, effusion, or edema noted. No calf tenderness. Negative Homans sign bilaterally. NEUROLOGICAL: Awake and alert. Cranial nerves II through XII intact. Motor and sensory grossly within normal limits. Five out of 5 muscle strength in all muscle groups. Normal speech. A/P Problem List: (1) UTI (urinary tract infection) ICD Code: N39.0 - Urinary tract infection, site not specified Status: Acute Assessment and Plan This is a 56-year-old female who presents to the emergency department complaining of worsening bilateral lower extremity swelling since she was discharged from [facility] after being treated for left pleural effusion status post thoracotomy. She has history of chronic bilateral lower extremity lymphedema and admits noncompliance to medications and salt restriction. Worsening bilateral lower extremity lymphedema secondary to noncompliance. Hold IV diuresis with Lasix as patient with low BP and monitor renal function and electrolytes. Counseled. Discussed with pulmonary, he doesn't think it's cor pulmonale. Recent echocardiogram shows and pulmonary hypertension. Patient with severe aortic stenosis failed medical management. Consult CTS ff. awaiting recommendations. Severe Sepsis secondary to UTI with Enterobacter cloacae multidrug resistant, DC cipro and start imipenem. Consult ID, ff. Check urine cultures again tomorrow 02/04. Hypotension. Poss 2/2 sepsis. Hold diuretic if SBP< 110. Afib which is multifactorial including conditions mentioned above, pain, electrolyte abnormalities and meds.Continue digoxin as patient with low BP. Consult cardiology. Patient with severe aortic stenosis with medical management failed. Consult CTS as patient might need valve replacement, However due to thrombocytopenia patient is a very weak candidate for surgery. Consult palliate care. Patient wants aggressive management at this time. Recent echo on 12/20 with normal EF. Will monitor on telemetry. TSH nl Acute encephalopathy secondary to sepsis, afib, multiple comorbidities. Improving. CT head reviewed and no acute findings. COPD, chronic respiratory failure and left pleural effusion status post thoracotomy. Continue nebulizations, oxygen and taper steroids. Pulm ff Pancytopenia. Evaluated by hematology during last hospitalization refused bone marrow biopsy Hypokalemia. Currently on potassium 20 mg 3 times a day supplementation. Repeat BMP and magnesium in the morning Deconditioning. Physical therapy evaluation Discontinue Cabrera catheter. Patient was requesting to get Cabrera catheter and will be discontinued today in the morning. Patient aware of risk of infection. Wound care DVT prophylaxis with Lovenox Discussed Condition With Patient, nurse DC plan: patient is very sick at this time. CTS consulted for eval, although due to thrombocytopenia patient is a poor candidate for surgery. Consult palliative also ff. Patient wants aggressive measure at this time. Poor prognosis Problem Qualifiers (1) UTI (urinary tract infection): Qualified Codes: N30.00 - Acute cystitis without hematuria Marjorie Ratliff MD Feb 04, 2017 08:41
[2017-02-04 08:49] LABS: MYELOCYTES 1 % (0-0); NEUTROPHIL # MANUAL DIFF 3.8 TH/MM3 (1.8-7.7); POLYS (SEG NEUTROPHILS) 79 % (16-70); WBC DIFF SAMPLE 100
[2017-02-04 08:50] LABS: PLATELET ESTIMATE SMEAR LOW (NORMAL); PLATELET MORPHOLOGY ENLARGED (NORMAL); SCAN/DIFF FINAL DIFF MANUAL
[2017-02-04] MEDS: predniSONE 5 MG TAB PO SCH (09:24)
[2017-02-04] MEDS: POTASSIUM CHLORIDE 10 MEQ CAP PO SCH ×3 (09:24→18:08)
[2017-02-04] MEDS: FERROUS SULFATE 325 MG (65 MG ELEMENTAL IRON) TAB PO SCH (09:24)
[2017-02-04] MEDS: MAGNESIUM OXIDE 400 MG TAB PO SCH ×2 (09:24→21:14)
[2017-02-04] MEDS: TAMSULOSIN HCL 0.4 MG CAP PO SCH (09:24)
[2017-02-04] MEDS: oxyCODONE/ACETAMINOPHEN 10 MG/325 MG TAB PO PRN ×4 (09:25→22:24)
[2017-02-04] MEDS: FUROSEMIDE 20 MG/2 ML VIAL IV PUSH SCH ×2 (09:25→17:58)
[2017-02-04] MEDS: SODIUM CHLORIDE 0.9% FLUSH 10 ML FLUSH IV FLUSH SCH ×2 (09:25→21:12)
[2017-02-04] MEDS: DIGOXIN 0.5 MG/2 ML VIAL IV PUSH SCH (09:26)
[2017-02-04] MEDS: TIOTROPIUM BROMIDE 18 MCG INH INH SCH (09:30)
--- NOTE | 2017-02-04 17:20 | PD.CARD.PN ---
Subjective Subjective Remarks alert in nad Objective Medications Current Medications Medications (Trade) Dose Ordered Sig/Armin Route Start Time Stop Time Status Last Admin (Lasix Inj) 20 mg BID@09,18 IV PUSH 01/31/17 09:00 02/04/17 09:25 (NS Flush) 2 ml UNSCH PRN IV FLUSH 01/31/17 04:45 (NS Flush) 2 ml BID IV FLUSH 01/31/17 09:00 02/04/17 09:25 (Tylenol) 650 mg Q4H PRN PO 01/31/17 04:45 02/01/17 09:57 (Zofran Inj) 4 mg Q6H PRN IVP 01/31/17 04:45 (Lovenox Inj) 40 mg Q24H SQ 01/31/17 06:00 02/04/17 06:26 (Narcan Inj) 0.4 mg UNSCH PRN IV PUSH 01/31/17 04:45 (Milk Of Magnesia Liq) 30 ml Q12H PRN PO 01/31/17 04:45 (Senokot) 17.2 mg Q12H PRN PO 01/31/17 04:45 (Dulcolax Supp) 10 mg DAILY PRN RECTAL 01/31/17 04:45 (Lactulose Liq) 30 ml DAILY PRN PO 01/31/17 04:45 (Urecholine) 25 mg Q8HR PO 01/31/17 06:00 02/04/17 13:11 (Percocet 10-325 Mg) 1 tab Q4H PRN PO 01/31/17 04:45 02/04/17 14:05 (Flomax) 0.4 mg DAILY PO 01/31/17 09:00 02/04/17 09:24 (Spiriva Inh) 18 mcg DAILY INH 01/31/17 09:00 02/04/17 09:30 (KCl) 20 meq TID PO 01/31/17 13:00 02/04/17 13:11 (Duoneb Neb) 1 ampule QID NEB PRN NEB 01/31/17 12:00 02/01/17 18:51 (Mag-Ox) 400 mg Q12HR PO 02/01/17 21:00 02/04/17 09:24 Imipenem/ Cilastatin Sodium 500 mg/Sodium Chloride 100 ml @ 200 mls/hr Q6H IV 02/02/17 12:00 02/04/17 13:11 (Deltasone) 10 mg DAILY PO 02/04/17 09:00 02/04/17 09:24 (Ferrous Sulfate Liq) 300 mg DAILY PO 02/05/17 09:00 (Lanoxin) 0.125 mg DAILY PO 02/05/17 09:00 Vital Signs / I&O Vital Signs Date Time Temp Pulse Resp B/P (MAP) Pulse Ox O2 Delivery O2 Flow Rate FiO2 02/04/17 12:03 98.2 90 19 98/62 (74) 98 02/04/17 09:25 100 Nasal Cannula 2.00 02/04/17 08:03 97.4 88 19 114/65 (81) 100 02/04/17 08:02 129 02/04/17 08:00 Nasal Cannula 2.00 02/04/17 04:02 111 02/04/17 04:00 97.4 101 16 107/72 (84) 100 02/04/17 00:02 117 02/04/17 00:00 97.5 92 16 95/50 (65) 100 02/03/17 22:10 Nasal Cannula 3.00 02/03/17 20:03 118 02/03/17 20:00 99.1 80 16 116/56 (76) 95 I/O 02/03/17 02/03/17 02/03/17 02/04/17 02/04/17 02/04/17 07:00 15:00 23:00 07:00 15:00 23:00 Intake Total 200 ml 100 ml 0 ml 200 ml 100 ml Output Total 1000 ml 1500 ml 1600 ml Balance -800 ml 100 ml -1500 ml -1400 ml 100 ml Intake Oral 0 ml IV Total 200 ml 100 ml 200 ml 100 ml Output Urine Total 1000 ml 1500 ml 1600 ml # Bowel Movements 0 Physical Exam GENERAL: SKIN: Warm and dry. HEAD: Normocephalic. EYES: No scleral icterus. No injection or drainage. NECK: Supple, trachea midline. No JVD or lymphadenopathy. CARDIOVASCULAR: Regular rate and rhythm without murmurs, gallops, or rubs. RESPIRATORY: Breath sounds equal bilaterally. No accessory muscle use. GASTROINTESTINAL: Abdomen soft, non-tender, nondistended. MUSCULOSKELETAL: No cyanosis, or edema. BACK: Nontender without obvious deformity. No CVA tenderness. Laboratory Laboratory Tests Test 02/04/17 05:36 White Blood Count 4.7 TH/MM3 Red Blood Count 2.33 MIL/MM3 Hemoglobin 8.0 GM/DL Hematocrit 24.1 % Mean Corpuscular Volume 103.0 FL Mean Corpuscular Hemoglobin 34.5 PG Mean Corpuscular Hemoglobin Concent 33.5 % Red Cell Distribution Width 20.4 % Platelet Count 69 TH/MM3 Mean Platelet Volume 11.0 FL Neutrophils (%) (Auto) 70.9 % Lymphocytes (%) (Auto) 19.7 % Monocytes (%) (Auto) 8.4 % Eosinophils (%) (Auto) 0.8 % Basophils (%) (Auto) 0.2 % Neutrophils # (Auto) 3.3 TH/MM3 Lymphocytes # (Auto) 0.9 TH/MM3 Monocytes # (Auto) 0.4 TH/MM3 Eosinophils # (Auto) 0.0 TH/MM3 Basophils # (Auto) 0.0 TH/MM3 CBC Comment AUTO DIFF Differential Total Cells Counted 100 Neutrophils % (Manual) 79 % Lymphocytes % 11 % Monocytes % 9 % Neutrophils # (Manual) 3.8 TH/MM3 Myelocytes 1 % Differential Comment FINAL DIFF MANUAL Platelet Estimate LOW Platelet Morphology Comment ENLARGED Blood Urea Nitrogen 15 MG/DL Creatinine 0.30 MG/DL Random Glucose 73 MG/DL Calcium Level 8.1 MG/DL Magnesium Level 2.2 MG/DL Sodium Level 135 MEQ/L Potassium Level 4.4 MEQ/L Chloride Level 94 MEQ/L Carbon Dioxide Level 36.7 MEQ/L Anion Gap 4 MEQ/L Estimat Glomerular Filtration Rate 230 ML/MIN B-Type Natriuretic Peptide 1085 PG/ML Prealbumin 9 MG/DL Assessment and Plan Problem List: (1) COPD (chronic obstructive pulmonary disease) ICD Codes: J44.9 - Chronic obstructive pulmonary disease, unspecified Status: Chronic (2) Pleural effusion on left ICD Codes: J90 - Pleural effusion, not elsewhere classified Status: Acute (3) Aortic stenosis ICD Codes: I35.0 - Nonrheumatic aortic (valve) stenosis (4) Pulmonary HTN ICD Codes: I27.20 - Pulmonary hypertension, unspecified (5) pancytopenia, etiology undetermined, suspect MDS (6) new atrial fibrillation, RVR (7) moderately severe COPD (8) congestive heart failure, persistent pleural effusions Assessment and Plan 1.) Severe - failing medical management, continue lasix as tolerated, f/u ct surg and palliative care consults, bnp, bmp in am; d/w Dr Ratliff and Sd Yu MD Feb 04, 2017 17:20
[2017-02-05] VITALS (8 sets, daily range): BP systolic 99–120; BP diastolic 59–73; PULSE 75–121; RESP 16–18; TEMP 97.2–97.7; O2SAT 94–100
[2017-02-05] MEDS: IMIPENEM/CILASTATIN INJ 500 MG in SODIUM CHLORIDE 0.9% INJ 100 ML IV SCH ×4 (05:46→23:07)
[2017-02-05] MEDS: BETHANECHOL CHL 25 MG TAB PO SCH ×3 (05:47→20:25)
[2017-02-05] MEDS: ENOXAPARIN SODIUM 40 MG/0.4 ML SYRINGE SQ SCH (05:48)
[2017-02-05] MEDS: oxyCODONE/ACETAMINOPHEN 10 MG/325 MG TAB PO PRN ×5 (05:56→23:51)
[2017-02-05] MEDS: FERROUS SULFATE 300 MG /5ML UDC PO SCH (10:14)
[2017-02-05] MEDS: FUROSEMIDE 20 MG/2 ML VIAL IV PUSH SCH ×2 (10:15→18:35)
[2017-02-05] MEDS: POTASSIUM CHLORIDE 10 MEQ CAP PO SCH ×3 (10:15→18:36)
[2017-02-05] MEDS: TAMSULOSIN HCL 0.4 MG CAP PO SCH (10:15)
[2017-02-05] MEDS: predniSONE 5 MG TAB PO SCH (10:16)
[2017-02-05] MEDS: DIGOXIN 0.125 MG TAB PO SCH (10:16)
[2017-02-05] MEDS: MAGNESIUM OXIDE 400 MG TAB PO SCH ×2 (10:16→20:25)
[2017-02-05] MEDS: SODIUM CHLORIDE 0.9% FLUSH 10 ML FLUSH IV FLUSH SCH ×2 (10:16→20:25)
[2017-02-05] MEDS: TIOTROPIUM BROMIDE 18 MCG INH INH SCH (10:18)
[2017-02-05 10:28] LABS: AUTOMATED NEUTROPHIL # 4.3 TH/MM3 (1.8-7.7); BASOPHIL % 0.1 % (0.0-2.0); EOSINOPHIL % 0.2 % (0.0-4.0); LYMPH % 19.6 % (9.0-44.0); LYMPHOCYTE # 1.2 TH/MM3 (1.0-4.8); MEAN CELL VOLUME 102.9 FL (80.0-100.0); MONO % 7.7 % (0.0-8.0); NEUT % 72.4 % (16.0-70.0); PLATELET COUNT 76 TH/MM3 (150-450); RED BLOOD COUNT 2.53 MIL/MM3 (4.00-5.30); RED CELL DISTRIBUTION WIDTH 20.4 % (11.6-17.2)
[2017-02-05 10:34] LABS: HEMO FLAGS AUTO DIFF
--- NOTE | 2017-02-05 10:34 | PD.CARD.PN ---
Subjective Subjective Remarks alert in nad Objective Medications Current Medications Medications (Trade) Dose Ordered Sig/Armin Route Start Time Stop Time Status Last Admin (Lasix Inj) 20 mg BID@,18 IV PUSH 01/31/17 09:00 02/05/17 10:15 (NS Flush) 2 ml UNSCH PRN IV FLUSH 01/31/17 04:45 (NS Flush) 2 ml BID IV FLUSH 01/31/17 09:00 02/05/17 10:16 (Tylenol) 650 mg Q4H PRN PO 01/31/17 04:45 02/01/17 09:57 (Zofran Inj) 4 mg Q6H PRN IVP 01/31/17 04:45 (Lovenox Inj) 40 mg Q24H SQ 01/31/17 06:00 02/05/17 05:48 (Narcan Inj) 0.4 mg UNSCH PRN IV PUSH 01/31/17 04:45 (Milk Of Magnesia Liq) 30 ml Q12H PRN PO 01/31/17 04:45 (Senokot) 17.2 mg Q12H PRN PO 01/31/17 04:45 (Dulcolax Supp) 10 mg DAILY PRN RECTAL 01/31/17 04:45 (Lactulose Liq) 30 ml DAILY PRN PO 01/31/17 04:45 (Urecholine) 25 mg Q8HR PO 01/31/17 06:00 02/05/17 05:47 (Percocet 10-325 Mg) 1 tab Q4H PRN PO 01/31/17 04:45 02/05/17 10:14 (Flomax) 0.4 mg DAILY PO 01/31/17 09:00 02/05/17 10:15 (Spiriva Inh) 18 mcg DAILY INH 01/31/17 09:00 02/05/17 10:18 (KCl) 20 meq TID PO 01/31/17 13:00 02/05/17 10:15 (Duoneb Neb) 1 ampule QID NEB PRN NEB 01/31/17 12:00 02/01/17 18:51 (Mag-Ox) 400 mg Q12HR PO 02/01/17 21:00 02/05/17 10:16 Imipenem/ Cilastatin Sodium 500 mg/Sodium Chloride 100 ml @ 200 mls/hr Q6H IV 02/02/17 12:00 02/05/17 05:46 (Deltasone) 10 mg DAILY PO 02/04/17 09:00 02/05/17 10:16 (Ferrous Sulfate Liq) 300 mg DAILY PO 02/05/17 09:00 02/05/17 10:14 (Lanoxin) 0.125 mg DAILY PO 02/05/17 09:00 02/05/17 10:16 Vital Signs / I&O Vital Signs Date Time Temp Pulse Resp B/P (MAP) Pulse Ox O2 Delivery O2 Flow Rate FiO2 02/05/17 08:00 97.7 85 16 114/59 (77) 95 02/05/17 04:00 97.6 75 18 105/73 (84) 95 02/05/17 04:00 99 02/05/17 00:00 97.6 85 16 110/65 (80) 95 02/04/17 23:58 108 02/04/17 20:00 Room Air 02/04/17 20:00 97.7 81 16 111/81 (91) 97 02/04/17 19:53 111 02/04/17 16:23 94 02/04/17 16:03 97.2 79 18 102/58 (73) 98 02/04/17 12:03 98.2 90 19 98/62 (74) 98 02/04/17 12:00 88 I/O 02/04/17 02/04/17 02/04/17 02/05/17 02/05/17 02/05/17 07:00 15:00 23:00 07:00 15:00 23:00 Intake Total 200 ml 100 ml 240 ml 240 ml Output Total 1600 ml 1200 ml 400 ml Balance -1400 ml 100 ml -960 ml -160 ml Intake Oral 240 ml 240 ml IV Total 200 ml 100 ml Output Urine Total 1600 ml 1200 ml 400 ml # Bowel Movements 0 0 Physical Exam GENERAL: SKIN: Warm and dry. HEAD: Normocephalic. EYES: No scleral icterus. No injection or drainage. NECK: Supple, trachea midline. No JVD or lymphadenopathy. CARDIOVASCULAR: Regular rate and rhythm without murmurs, gallops, or rubs. RESPIRATORY: Breath sounds equal bilaterally. No accessory muscle use. GASTROINTESTINAL: Abdomen soft, non-tender, nondistended. MUSCULOSKELETAL: No cyanosis, or edema. BACK: Nontender without obvious deformity. No CVA tenderness. Laboratory Laboratory Tests Test 02/05/17 09:25 Assessment and Plan Problem List: (1) COPD (chronic obstructive pulmonary disease) ICD Codes: J44.9 - Chronic obstructive pulmonary disease, unspecified Status: Chronic (2) Pleural effusion on left ICD Codes: J90 - Pleural effusion, not elsewhere classified Status: Acute (3) Aortic stenosis ICD Codes: I35.0 - Nonrheumatic aortic (valve) stenosis (4) Pulmonary HTN ICD Codes: I27.20 - Pulmonary hypertension, unspecified (5) pancytopenia, etiology undetermined, suspect MDS (6) new atrial fibrillation, RVR (7) moderately severe COPD (8) congestive heart failure, persistent pleural effusions Assessment and Plan 1.) Severe - failing medical management, continue lasix as tolerated, f/u ct surg and palliative care consults, bnp, bmp in am; d/w Dr Recinos 02/05/17, patient probably not candidate for tavr due to multiple co morbidities, will f/ u eval by Dr Bustamante if not candidate for tavr, rec hospice Sd Kirk MD Feb 05, 2017 10:34
[2017-02-05 10:43] LABS: BICARBONATE 35.4 MEQ/L (21.0-32.0); MAGNESIUM 2.4 MG/DL (1.5-2.5); POTASSIUM 4.5 MEQ/L (3.5-5.1)
[2017-02-05 11:02] LABS: ACANTHOCYTES OCC (NORMAL); PLATELET ESTIMATE SMEAR LOW (NORMAL); PLATELET MORPHOLOGY NORMAL (NORMAL); SCAN/DIFF AUTO DIFF CONFIRMED
--- NOTE | 2017-02-05 11:37 | HHI.PR ---
Subjective Remarks Appears much awake and alert. feels very tired. with sob and has intermittent chest pain. No n/v/d/c. Asking for chocolate ensure. Objective Vitals Vital Signs Date Time Temp Pulse Resp B/P (MAP) Pulse Ox O2 Delivery O2 Flow Rate FiO2 02/05/17 08:00 97.7 85 16 114/59 (77) 95 02/05/17 04:00 97.6 75 18 105/73 (84) 95 02/05/17 04:00 99 02/05/17 00:00 97.6 85 16 110/65 (80) 95 02/04/17 23:58 108 02/04/17 20:00 Room Air 02/04/17 20:00 97.7 81 16 111/81 (91) 97 02/04/17 19:53 111 02/04/17 16:23 94 02/04/17 16:03 97.2 79 18 102/58 (73) 98 02/04/17 12:03 98.2 90 19 98/62 (74) 98 02/04/17 12:00 88 I/O 02/04/17 02/04/17 02/04/17 02/05/17 02/05/17 02/05/17 07:00 15:00 23:00 07:00 15:00 23:00 Intake Total 200 ml 100 ml 240 ml 240 ml Output Total 1600 ml 1200 ml 400 ml Balance -1400 ml 100 ml -960 ml -160 ml Intake Oral 240 ml 240 ml IV Total 200 ml 100 ml Output Urine Total 1600 ml 1200 ml 400 ml # Bowel Movements 0 0 Result Diagram: 02/05/17 0925 02/05/17 0925 Imaging Last Impressions Chest X-Ray 02/03/17 0600 Signed Impressions: Service Date/Time: Friday, February 03, 2017 06:17 - CONCLUSION: Stable exam. Alda Alberts MD Head CT 02/03/17 0000 Signed Impressions: Service Date/Time: Friday, February 03, 2017 16:25 - CONCLUSION: Periventricular white matter changes otherwise negative. Raf Lindsay MD FACR Objective Remarks GENERAL: This is a well-nourished, well-developed patient, appears chronically ill, with sob. CARDIOVASCULAR: Irregularly irregular. No gallops, or rubs. Systolic murmur noted RESPIRATORY: Decreased breath sounds worse on the left. SOB. No wheezes, rales, or rhonchi. GASTROINTESTINAL: Abdomen soft, non-tender, nondistended. No guarding. MUSCULOSKELETAL: Extremities without clubbing, cyanosis with bilateral lower extremity pitting edema. No joint tenderness, effusion, or edema noted. No calf tenderness. Negative Homans sign bilaterally. NEUROLOGICAL: Awake and alert. Cranial nerves II through XII intact. Motor and sensory grossly within normal limits. Five out of 5 muscle strength in all muscle groups. Normal speech. A/P Problem List: (1) UTI (urinary tract infection) ICD Code: N39.0 - Urinary tract infection, site not specified Status: Acute Assessment and Plan This is a 56-year-old female who presents to the emergency department complaining of worsening bilateral lower extremity swelling since she was discharged from [facility] after being treated for left pleural effusion status post thoracotomy. She has history of chronic bilateral lower extremity lymphedema and admits noncompliance to medications and salt restriction. Worsening bilateral lower extremity lymphedema secondary to noncompliance. Hold IV diuresis with Lasix as patient with low BP and monitor renal function and electrolytes. Counseled. Discussed with pulmonary, he doesn't think it's cor pulmonale. Recent echocardiogram shows and pulmonary hypertension. Patient with severe aortic stenosis failed medical management. Consult CTS ff. awaiting recommendations. Severe Sepsis secondary to UTI with Enterobacter cloacae multidrug resistant, DC cipro and start imipenem. Consult ID, ff. Check urine cultures again tomorrow 02/04. Hypotension. Poss 2/2 sepsis. Hold diuretic if SBP< 110. Afib which is multifactorial including conditions mentioned above, pain, electrolyte abnormalities and meds.Continue digoxin as patient with low BP. Consult cardiology. Patient with severe aortic stenosis with medical management failed. Consult CTS as patient might need valve replacement, However due to thrombocytopenia patient is a very weak candidate for surgery. Consult palliate care. Patient wants aggressive management at this time. Recent echo on 12/20 with normal EF. Will monitor on telemetry. TSH nl Acute encephalopathy secondary to sepsis, afib, multiple comorbidities. Improving. CT head reviewed and no acute findings. COPD, chronic respiratory failure and left pleural effusion status post thoracotomy. Continue nebulizations, oxygen and taper steroids. Pulm ff Pancytopenia. Evaluated by hematology during last hospitalization refused bone marrow biopsy Hypokalemia. Currently on potassium 20 mg 3 times a day supplementation. Repeat BMP and magnesium in the morning Deconditioning. Physical therapy evaluation Discontinue Cabrera catheter. Patient was requesting to get Cabrera catheter and will be discontinued today in the morning. Patient aware of risk of infection. Wound care DVT prophylaxis with Lovenox Discussed Condition With Patient, nurse DC plan: patient is very sick at this time. CTS consulted for eval, although due to thrombocytopenia patient is a poor candidate for surgery. Consult palliative also ff. Patient wants aggressive measure at this time. Poor prognosis Problem Qualifiers (1) UTI (urinary tract infection): Qualified Codes: N30.00 - Acute cystitis without hematuria Marjorie Ratliff MD Feb 05, 2017 11:37
[2017-02-06] VITALS (11 sets, daily range): BP systolic 96–156; BP diastolic 54–76; PULSE 95–130; RESP 18–20; TEMP 96.8–98.2; O2SAT 98–100
[2017-02-06] MEDS: IMIPENEM/CILASTATIN INJ 500 MG in SODIUM CHLORIDE 0.9% INJ 100 ML IV SCH ×4 (06:08→23:10)
[2017-02-06] MEDS: BETHANECHOL CHL 25 MG TAB PO SCH ×3 (06:09→21:28)
[2017-02-06] MEDS: ENOXAPARIN SODIUM 40 MG/0.4 ML SYRINGE SQ SCH (06:09)
[2017-02-06] MEDS: oxyCODONE/ACETAMINOPHEN 10 MG/325 MG TAB PO PRN ×4 (06:41→23:09)
--- NOTE | 2017-02-06 08:11 | MB ---
cc: ROBERTO CARLOS ARREGUIN DATE OF CONSULTATION 02/03/17 07/19/1950 A 66-year-old patient. The patient was readmitted on 01/30/2017 because of worsening of lower extremity edema. She was just recently discharged from [facility] after being treated for left pleural effusion status post thoracotomy. The patient underwent thorascopic exploration, drainage decortication on 01/11/2017. Prior to that, she was admitted because of dyspnea and weight loss. Her echo showed significant aortic stenosis but normal ejection fraction. She decompensated postoperatively requiring intubation. She was extubated the following day. She also had significant pancytopenia requiring blood transfusions. She was diagnosed with myelodysplastic syndrome and they requested a bone marrow biopsy, but she refused at that time. She was discharged on 01/24 home with home oxygen. She has become weaker, unable to get up and ambulate by herself, worsening edema of her lower extremities. She is somewhat tachycardiac. Her platelet count was 69,000. Urinalysis was consistent with a UTI. A chest x-ray showed left pleural effusion. The reason for our consultation was because of the echocardiogram that she had on her last admission which showed mild mitral valve stenosis, mild mitral annular calcification, mild mitral valve regurgitation, moderate aortic valve stenosis, however, the aortic valve area was 0.7. We were consulted to evaluate for the patient being a candidate for transcatheter aortic valve replacement. PAST MEDICAL HISTORY 1. Aortic stenosis, 2. Congestive heart failure 3. Pancytopenia 4. Probable myelodysplastic syndrome. 5. Atrial fibrillation 6. Severe COPD, 7. Depression PAST SURGICAL HISTORY 1. Recent left thorascopic exploration decortication 2. Bilateral chest tubes recently in January 2017. ALLERGIES No known allergies. MEDICATIONS 1. Urecholine 2. Spiriva 3. Ventolin 4. Flomax 5. Ferrous sulfate, 6. Lasix, 7. Prednisone. FAMILY HISTORY Father at 54 from lung cancer. Mother at 75 of CHF. SOCIAL HISTORY Smoked one to two packs and she quit five years ago. 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 REVIEW OF SYSTEMS As above in the History of Present Illness. Other 12 system unremarkable. PHYSICAL EXAMINATION VITAL SIGNS: Blood pressure 94/60, heart rate 90, afebrile. O2 sat 95 on two liters. GENERAL: Very weak, somewhat lethargic, sleepy. She did receive a pain medication about 5:00 a.m. She continuously nods her head down to sleep and has to be awakened to speak with her, She has apparently not been out of bed with physical therapy due to she has been very weak. HEENT: Head is normocephalic, atraumatic. Pupils equal and reactive. Sclerae somewhat pale. NECK: Supple. No JVD. CARDIAC: Heart sounds S1,S2, regular rate and rhythm. She has a grade 2/6 systolic murmur best noted at the left sternal border. LUNGS: Very diminished in the bases, few rhonchi. Her prior incision is well-healed to the left posterior chest wall. ABDOMEN: Soft, nontender. EXTREMITIES: 1+ edema. No clubbing. NEUROLOGIC: again she is very lethargic and sleepy. LABORATORY FINDINGS Hemoglobin 8.5, hematocrit of 25, white cell count 5.6, platelet count 69. Sodium 133, potassium 4.3, BUN of 11, creatinine 0.33, BNP of 1800, INR 1.1. Urinalysis shows enterobacter in the urine. Blood cultures are negative. IMAGING STUDIES The patient did have a head CT which is pending result. Chest x-ray earlier today - Stable appearance of the left-sided pleural effusion. IMPRESSION This is a very chronically ill female ____who has undergone left thorascopic exploration left thoracotomy for decortication, evacuation of complex loculated effusion and recurrence of pleural effusion now being consulted regarding evaluation for transcatheter aortic valve replacement. She has multiple comorbidities despite her young age. She is being followed by palliative care at this time and I do not recommend open aortic valve replacement. We will have the TAVR evaluate if she is a candidate, but her risk factors include immunocompromised with her chronic thrombocytopenia, poor lung capacity, recent thoracic surgery, chronic immobility. The STS data will be documented in the electronic record. Await further evaluation by the TAVR team, however, at this time would not recommend any open aortic valve replacement due to her overall poor recovery ability. Dictated by HYUN Leon MD MISSY Maddox/ /4:50 PM /8:07 AM
[2017-02-06 08:40] LABS: AUTOMATED NEUTROPHIL # 5.7 TH/MM3 (1.8-7.7); BASOPHIL % 0.1 % (0.0-2.0); EOSINOPHIL % 0.4 % (0.0-4.0); HEMATOCRIT 25.9 % (35.0-46.0); LYMPH % 16.5 % (9.0-44.0); LYMPHOCYTE # 1.3 TH/MM3 (1.0-4.8); MEAN CORPUSCULAR HEMOGLOBIN 34.2 PG (27.0-34.0); MEAN CORPUSCULAR HGB CONC 33.2 % (32.0-36.0); PLATELET COUNT 90 TH/MM3 (150-450); RED BLOOD COUNT 2.51 MIL/MM3 (4.00-5.30); WHITE BLOOD COUNT 7.6 TH/MM3 (4.0-11.0)
[2017-02-06 08:43] LABS: HEMO FLAGS AUTO DIFF
[2017-02-06] MEDS: FUROSEMIDE 20 MG/2 ML VIAL IV PUSH SCH ×2 (09:00→18:00)
[2017-02-06] MEDS: TAMSULOSIN HCL 0.4 MG CAP PO SCH (09:00)
[2017-02-06 09:11] LABS: BICARBONATE 34.5 MEQ/L (21.0-32.0); POTASSIUM 4.6 MEQ/L (3.5-5.1)
[2017-02-06] MEDS: MAGNESIUM OXIDE 400 MG TAB PO SCH ×2 (09:18→21:28)
[2017-02-06] MEDS: predniSONE 5 MG TAB PO SCH (09:18)
[2017-02-06] MEDS: DIGOXIN 0.125 MG TAB PO SCH (09:18)
[2017-02-06] MEDS: POTASSIUM CHLORIDE 10 MEQ CAP PO SCH ×3 (09:18→18:15)
[2017-02-06] MEDS: FERROUS SULFATE 300 MG /5ML UDC PO SCH (09:18)
[2017-02-06] MEDS: SODIUM CHLORIDE 0.9% FLUSH 10 ML FLUSH IV FLUSH SCH ×2 (09:19→21:29)
[2017-02-06] MEDS: TIOTROPIUM BROMIDE 18 MCG INH INH SCH (09:19)
[2017-02-06 09:33] LABS: BANDS 2 % (0-6); CORRECTED NUCLEATED RBC 1 /100 WBC (0-0); METAMYELOCYTES 2 % (0-1); NEUTROPHIL # MANUAL DIFF 6.4 TH/MM3 (1.8-7.7); PLATELET ESTIMATE SMEAR LOW (NORMAL); PLATELET MORPHOLOGY NORMAL (NORMAL); POLYS (SEG NEUTROPHILS) 80 % (16-70); SCAN/DIFF FINAL DIFF MANUAL; WBC DIFF SAMPLE 100
--- NOTE | 2017-02-06 11:33 | HHI.PR ---
Subjective Remarks Imprpved some today. Patient says she doen;t want to go hospice and she wants aggressive measures at this time. With sob, intermittent chest pain, palpitations. No fever or chills. No cough. Feels tired. Objective Vitals Vital Signs Date Time Temp Pulse Resp B/P (MAP) Pulse Ox O2 Delivery O2 Flow Rate FiO2 02/06/17 08:00 97.2 112 18 109/64 (79) 98 02/06/17 04:52 109 02/06/17 04:00 97.5 95 18 102/69 (80) 100 02/06/17 04:00 Nasal Cannula 2.00 02/06/17 00:00 Nasal Cannula 2.00 02/06/17 00:00 97.9 112 18 111/76 (88) 100 02/05/17 23:55 108 02/05/17 20:27 Nasal Cannula 2.00 02/05/17 20:00 Nasal Cannula 2.00 02/05/17 20:00 97.2 116 18 120/68 (85) 100 02/05/17 19:52 121 02/05/17 16:00 115 02/05/17 16:00 97.5 98 16 104/66 (79) 95 02/05/17 12:00 97.3 91 16 99/62 (74) 94 02/05/17 12:00 105 I/O 02/05/17 02/05/17 02/05/17 02/06/17 02/06/17 02/06/17 07:00 15:00 23:00 07:00 15:00 23:00 Intake Total 240 ml 100 ml 760 ml 240 ml Output Total 400 ml 650 ml 750 ml Balance -160 ml 100 ml 110 ml -510 ml Intake Oral 240 ml 760 ml 240 ml IV Total 100 ml Output Urine Total 400 ml 650 ml 750 ml # Bowel Movements 0 0 1 Result Diagram: 02/06/17 0750 02/06/17 0750 Imaging Last Impressions Chest X-Ray 02/03/17 0600 Signed Impressions: Service Date/Time: Friday, February 03, 2017 06:17 - CONCLUSION: Stable exam. Alda Alberts MD Head CT 02/03/17 0000 Signed Impressions: Service Date/Time: Friday, February 03, 2017 16:25 - CONCLUSION: Periventricular white matter changes otherwise negative. Raf Lindsay MD FACR Objective Remarks GENERAL: This is a well-nourished, well-developed patient, appears chronically ill, with sob. CARDIOVASCULAR: Irregularly irregular. No gallops, or rubs. Systolic murmur noted RESPIRATORY: Decreased breath sounds worse on the left. SOB. No wheezes, rales, or rhonchi. GASTROINTESTINAL: Abdomen soft, non-tender, nondistended. No guarding. MUSCULOSKELETAL: Extremities without clubbing, cyanosis with bilateral lower extremity pitting edema. No joint tenderness, effusion, or edema noted. No calf tenderness. Negative Homans sign bilaterally. NEUROLOGICAL: Awake and alert. Cranial nerves II through XII intact. Motor and sensory grossly within normal limits. Five out of 5 muscle strength in all muscle groups. Normal speech. A/P Problem List: (1) UTI (urinary tract infection) ICD Code: N39.0 - Urinary tract infection, site not specified Status: Acute Assessment and Plan This is a 56-year-old female who presents to the emergency department complaining of worsening bilateral lower extremity swelling since she was discharged from [facility] after being treated for left pleural effusion status post thoracotomy. She has history of chronic bilateral lower extremity lymphedema and admits noncompliance to medications and salt restriction. Worsening bilateral lower extremity lymphedema secondary to noncompliance. Hold IV diuresis with Lasix as patient with low BP and monitor renal function and electrolytes. Counseled. Discussed with pulmonary, he doesn't think it's cor pulmonale. Recent echocardiogram shows and pulmonary hypertension. Patient with severe aortic stenosis failed medical management. Consult CTS ff. awaiting recommendations. Severe Sepsis secondary to UTI with Enterobacter cloacae multidrug resistant, DC cipro and start imipenem. Consult ID, ff. Check urine cultures again tomorrow 02/04. Hypotension. Poss 2/2 sepsis. Hold diuretic if SBP< 110. Afib which is multifactorial including conditions mentioned above, pain, electrolyte abnormalities and meds.Continue digoxin as patient with low BP. Consult cardiology. Patient with severe aortic stenosis with medical management failed. Consult CTS as patient might need valve replacement, However due to thrombocytopenia patient is a very weak candidate for surgery. Consult palliate care. Patient wants aggressive management at this time. Recent echo on 12/20 with normal EF. Will monitor on telemetry. TSH nl Acute encephalopathy secondary to sepsis, afib, multiple comorbidities. Improving. CT head reviewed and no acute findings. COPD, chronic respiratory failure and left pleural effusion status post thoracotomy. Continue nebulizations, oxygen and taper steroids. Pulm ff Pancytopenia. Evaluated by hematology during last hospitalization refused bone marrow biopsy Hypokalemia. Currently on potassium 20 mg 3 times a day supplementation. Repeat BMP and magnesium in the morning Deconditioning. Physical therapy evaluation Discontinue Cabrera catheter. Patient was requesting to get Cabrera catheter and will be discontinued today in the morning. Patient aware of risk of infection. Wound care DVT prophylaxis with Lovenox Discussed Condition With Patient, nurse DC plan: patient is very sick at this time. CTS consulted for eval, although due to thrombocytopenia patient is a poor candidate for surgery. Consult palliative also ff. Patient wants aggressive measure at this time. Poor prognosis Problem Qualifiers (1) UTI (urinary tract infection): Qualified Codes: N30.00 - Acute cystitis without hematuria Marjorie Ratliff MD Feb 06, 2017 11:33
--- NOTE | 2017-02-06 14:17 | PD.CARD.PN ---
Subjective Subjective Remarks alert in nad Objective Medications Current Medications Medications (Trade) Dose Ordered Sig/Armin Route Start Time Stop Time Status Last Admin (Lasix Inj) 20 mg BID@09,18 IV PUSH 01/31/17 09:00 02/05/17 18:35 (NS Flush) 2 ml UNSCH PRN IV FLUSH 01/31/17 04:45 (NS Flush) 2 ml BID IV FLUSH 01/31/17 09:00 02/06/17 09:19 (Tylenol) 650 mg Q4H PRN PO 01/31/17 04:45 02/01/17 09:57 (Zofran Inj) 4 mg Q6H PRN IVP 01/31/17 04:45 (Lovenox Inj) 40 mg Q24H SQ 01/31/17 06:00 02/06/17 06:09 (Narcan Inj) 0.4 mg UNSCH PRN IV PUSH 01/31/17 04:45 (Milk Of Magnesia Liq) 30 ml Q12H PRN PO 01/31/17 04:45 (Senokot) 17.2 mg Q12H PRN PO 01/31/17 04:45 (Dulcolax Supp) 10 mg DAILY PRN RECTAL 01/31/17 04:45 (Lactulose Liq) 30 ml DAILY PRN PO 01/31/17 04:45 (Urecholine) 25 mg Q8HR PO 01/31/17 06:00 02/06/17 06:09 (Percocet 10-325 Mg) 1 tab Q4H PRN PO 01/31/17 04:45 02/06/17 11:39 (Flomax) 0.4 mg DAILY PO 01/31/17 09:00 02/05/17 10:15 (Spiriva Inh) 18 mcg DAILY INH 01/31/17 09:00 02/06/17 09:19 (KCl) 20 meq TID PO 01/31/17 13:00 02/06/17 12:27 (Duoneb Neb) 1 ampule QID NEB PRN NEB 01/31/17 12:00 02/01/17 18:51 (Mag-Ox) 400 mg Q12HR PO 02/01/17 21:00 02/06/17 09:18 Imipenem/ Cilastatin Sodium 500 mg/Sodium Chloride 100 ml @ 200 mls/hr Q6H IV 02/02/17 12:00 02/06/17 11:39 (Deltasone) 10 mg DAILY PO 02/04/17 09:00 02/06/17 09:18 (Ferrous Sulfate Liq) 300 mg DAILY PO 02/05/17 09:00 02/06/17 09:18 (Lanoxin) 0.125 mg DAILY PO 02/05/17 09:00 02/06/17 09:18 Vital Signs / I&O Vital Signs Date Time Temp Pulse Resp B/P (MAP) Pulse Ox O2 Delivery O2 Flow Rate FiO2 02/06/17 12:06 119 02/06/17 12:00 97.4 116 18 96/54 (68) 100 02/06/17 08:15 Nasal Cannula 2.00 02/06/17 08:04 130 02/06/17 08:00 97.2 112 18 109/64 (79) 98 02/06/17 04:52 109 02/06/17 04:00 97.5 95 18 102/69 (80) 100 02/06/17 04:00 Nasal Cannula 2.00 02/06/17 00:00 Nasal Cannula 2.00 02/06/17 00:00 97.9 112 18 111/76 (88) 100 02/05/17 23:55 108 02/05/17 20:27 Nasal Cannula 2.00 02/05/17 20:00 Nasal Cannula 2.00 02/05/17 20:00 97.2 116 18 120/68 (85) 100 02/05/17 19:52 121 02/05/17 16:00 115 02/05/17 16:00 97.5 98 16 104/66 (79) 95 I/O 02/05/17 02/05/17 02/05/17 02/06/17 02/06/17 02/06/17 07:00 15:00 23:00 07:00 15:00 23:00 Intake Total 240 ml 100 ml 760 ml 240 ml Output Total 400 ml 650 ml 750 ml Balance -160 ml 100 ml 110 ml -510 ml Intake Oral 240 ml 760 ml 240 ml IV Total 100 ml Output Urine Total 400 ml 650 ml 750 ml # Bowel Movements 0 0 1 Physical Exam GENERAL: SKIN: Warm and dry. HEAD: Normocephalic. EYES: No scleral icterus. No injection or drainage. NECK: Supple, trachea midline. No JVD or lymphadenopathy. CARDIOVASCULAR: Regular rate and rhythm without murmurs, gallops, or rubs. RESPIRATORY: Breath sounds equal bilaterally. No accessory muscle use. GASTROINTESTINAL: Abdomen soft, non-tender, nondistended. MUSCULOSKELETAL: No cyanosis, or edema. BACK: Nontender without obvious deformity. No CVA tenderness. Laboratory Laboratory Tests Test 02/06/17 07:50 White Blood Count 7.6 TH/MM3 Red Blood Count 2.51 MIL/MM3 Hemoglobin 8.6 GM/DL Hematocrit 25.9 % Mean Corpuscular Volume 103.0 FL Mean Corpuscular Hemoglobin 34.2 PG Mean Corpuscular Hemoglobin Concent 33.2 % Red Cell Distribution Width 21.0 % Platelet Count 90 TH/MM3 Mean Platelet Volume 10.5 FL Neutrophils (%) (Auto) 75.0 % Lymphocytes (%) (Auto) 16.5 % Monocytes (%) (Auto) 8.0 % Eosinophils (%) (Auto) 0.4 % Basophils (%) (Auto) 0.1 % Neutrophils # (Auto) 5.7 TH/MM3 Lymphocytes # (Auto) 1.3 TH/MM3 Monocytes # (Auto) 0.6 TH/MM3 Eosinophils # (Auto) 0.0 TH/MM3 Basophils # (Auto) 0.0 TH/MM3 CBC Comment AUTO DIFF Differential Total Cells Counted 100 Neutrophils % (Manual) 80 % Band Neutrophils % 2 % Lymphocytes % 16 % Neutrophils # (Manual) 6.4 TH/MM3 Metamyelocytes 2 % Nucleated Red Blood Cells 1 /100 WBC Differential Comment FINAL DIFF MANUAL Platelet Estimate LOW Platelet Morphology Comment NORMAL Blood Urea Nitrogen 13 MG/DL Creatinine 0.29 MG/DL Random Glucose 82 MG/DL Calcium Level 7.9 MG/DL Sodium Level 134 MEQ/L Potassium Level 4.6 MEQ/L Chloride Level 95 MEQ/L Carbon Dioxide Level 34.5 MEQ/L Anion Gap 5 MEQ/L Estimat Glomerular Filtration Rate 239 ML/MIN Assessment and Plan Problem List: (1) COPD (chronic obstructive pulmonary disease) ICD Codes: J44.9 - Chronic obstructive pulmonary disease, unspecified Status: Chronic (2) Pleural effusion on left ICD Codes: J90 - Pleural effusion, not elsewhere classified Status: Acute (3) Aortic stenosis ICD Codes: I35.0 - Nonrheumatic aortic (valve) stenosis (4) Pulmonary HTN ICD Codes: I27.20 - Pulmonary hypertension, unspecified (5) pancytopenia, etiology undetermined, suspect MDS (6) new atrial fibrillation, RVR (7) moderately severe COPD (8) congestive heart failure, persistent pleural effusions Assessment and Plan 1.) Severe - failing medical management, continue lasix as tolerated, f/u ct surg and palliative care consults, bnp, bmp in am; d/w Dr Recinos 02/05/17, patient probably not candidate for tavr due to multiple co morbidities, will f/ u eval by Dr Bustamante if not candidate for tavr, rec hospice Sd Kirk MD Feb 06, 2017 14:17
--- NOTE | 2017-02-06 15:55 | HHI.HCPN ---
Reason for visit a. To assist with evaluation and management of symptoms including: Dyspnea , weakness b. To assist medical decision maker(s) with: better understanding of current medical conditions; weighing benefits/burdens of medical treatment options; making medical treatment decisions. . Subjective/Interval History This is a 56-year-old female who presented to the emergency department with complaints of worsening bilateral lower extremity swelling after [place] [facility] [place] for left pleural effusion status post thoracotomy. Patient has history of chronic bilateral lower extremity lymphedema and admits noncompliance to both medications and diet. Follow up visit for symptom management and clarification of medical treatment goals. Patient appears dyspneic on exam which she states is because she was frustrated that she had not been able to eat her breakfast which is now cold. She denies SOB or pain. Endorses fatigue. Oxygen saturations in the mid to high 90s on 2 L oxygen via nasal cannula. WBC: 7.6, hemoglobin 8.6, hematocrit 25.9, platelets 90, neutrophils 75.0% Dr. Gamboa evaluated the patient and did not recommend open aortic valve replacement; awaiting evaluation for TAVR. Patient stating that she want to do whatever she has to to "live". She does not want hospice and her goals remain quite aggressive at this time. . Family/friend interactions Patient's was at bedside; he verbalizes complete support of his 's current aggressive goals. . Advance Directives Living Will: Completed, but not made available Health Care Surrogate: Never completed Durable Power of Land Surveying Manager: Never completed Objective Vital Signs Date Time Temp Pulse Resp B/P (MAP) Pulse Ox O2 Delivery O2 Flow Rate FiO2 02/06/17 12:06 119 02/06/17 12:00 97.4 116 18 96/54 (68) 100 02/06/17 08:15 Nasal Cannula 2.00 02/06/17 08:04 130 02/06/17 08:00 97.2 112 18 109/64 (79) 98 02/06/17 04:52 109 02/06/17 04:00 97.5 95 18 102/69 (80) 100 02/06/17 04:00 Nasal Cannula 2.00 02/06/17 00:00 Nasal Cannula 2.00 02/06/17 00:00 97.9 112 18 111/76 (88) 100 02/05/17 23:55 108 02/05/17 20:27 Nasal Cannula 2.00 02/05/17 20:00 Nasal Cannula 2.00 02/05/17 20:00 97.2 116 18 120/68 (85) 100 02/05/17 19:52 121 02/05/17 16:00 115 02/05/17 16:00 97.5 98 16 104/66 (79) 95 Intake & Output 02/06/17 02/06/17 07:00 19:00 Intake Total 240 ml Output Total 750 ml Balance -510 ml Intake Oral 240 ml Output Urine Total 750 ml # Bowel Movements 1 . Physical Exam CONSTITUTIONAL/GENERAL: This is a chronically ill, very weak patient, who appears to be mildly dyspneic on exam. TUBES/LINES/DRAINS: Nasal oxygen, peripheral IVs NECK: Trachea midline. Supple, nontender. No palpable thyroid enlargement or nodularity. CARDIOVASCULAR: Irregularly irregular rhythm without murmurs, gallops, or rubs. No JVD. Peripheral pulses diminished. RESPIRATORY/CHEST: Symmetric, but mildly labored respirations. Markedly diminished breath sounds bilateral. No accessory muscles used. GASTROINTESTINAL: Abdomen soft, non-tender, nondistended. Bowel sounds present. MUSCULOSKELETAL: Extremities without clubbing or cyanosis, decreasing edema.No mottling or clubbing. LYMPHATICS: No palpable cervical or supraclavicular adenopathy. NEUROLOGICAL: Alert and awake. Answering questions, able to make needs known PSYCHIATRIC: No obvious anxiety/depression. no apparent hallucinations or other psychotic thought process. . Diagnostic Tests Laboratory Laboratory Tests Test 02/04/17 05:36 02/05/17 09:25 02/06/17 07:50 White Blood Count 4.7 TH/MM3 (4.0-11.0) 6.0 TH/MM3 (4.0-11.0) 7.6 TH/MM3 (4.0-11.0) Red Blood Count 2.33 MIL/MM3 (4.00-5.30) 2.53 MIL/MM3 (4.00-5.30) 2.51 MIL/MM3 (4.00-5.30) Hemoglobin 8.0 GM/DL (11.6-15.3) 8.6 GM/DL (11.6-15.3) 8.6 GM/DL (11.6-15.3) Hematocrit 24.1 % (35.0-46.0) 26.0 % (35.0-46.0) 25.9 % (35.0-46.0) Mean Corpuscular Volume 103.0 FL (80.0-100.0) 102.9 FL (80.0-100.0) 103.0 FL (80.0-100.0) Mean Corpuscular Hemoglobin 34.5 PG (27.0-34.0) 34.0 PG (27.0-34.0) 34.2 PG (27.0-34.0) Mean Corpuscular Hemoglobin Concent 33.5 % (32.0-36.0) 33.0 % (32.0-36.0) 33.2 % (32.0-36.0) Red Cell Distribution Width 20.4 % (11.6-17.2) 20.4 % (11.6-17.2) 21.0 % (11.6-17.2) Platelet Count 69 TH/MM3 (150-450) 76 TH/MM3 (150-450) 90 TH/MM3 (150-450) Mean Platelet Volume 11.0 FL (7.0-11.0) 10.6 FL (7.0-11.0) 10.5 FL (7.0-11.0) Neutrophils (%) (Auto) 70.9 % (16.0-70.0) 72.4 % (16.0-70.0) 75.0 % (16.0-70.0) Lymphocytes (%) (Auto) 19.7 % (9.0-44.0) 19.6 % (9.0-44.0) 16.5 % (9.0-44.0) Monocytes (%) (Auto) 8.4 % (0.0-8.0) 7.7 % (0.0-8.0) 8.0 % (0.0-8.0) Eosinophils (%) (Auto) 0.8 % (0.0-4.0) 0.2 % (0.0-4.0) 0.4 % (0.0-4.0) Basophils (%) (Auto) 0.2 % (0.0-2.0) 0.1 % (0.0-2.0) 0.1 % (0.0-2.0) Neutrophils # (Auto) 3.3 TH/MM3 (1.8-7.7) 4.3 TH/MM3 (1.8-7.7) 5.7 TH/MM3 (1.8-7.7) Lymphocytes # (Auto) 0.9 TH/MM3 (1.0-4.8) 1.2 TH/MM3 (1.0-4.8) 1.3 TH/MM3 (1.0-4.8) Monocytes # (Auto) 0.4 TH/MM3 (0-0.9) 0.5 TH/MM3 (0-0.9) 0.6 TH/MM3 (0-0.9) Eosinophils # (Auto) 0.0 TH/MM3 (0-0.4) 0.0 TH/MM3 (0-0.4) 0.0 TH/MM3 (0-0.4) Basophils # (Auto) 0.0 TH/MM3 (0-0.2) 0.0 TH/MM3 (0-0.2) 0.0 TH/MM3 (0-0.2) CBC Comment AUTO DIFF AUTO DIFF AUTO DIFF Differential Total Cells Counted 100 100 Neutrophils % (Manual) 79 % (16-70) 80 % (16-70) Lymphocytes % 11 % (9-44) 16 % (9-44) Monocytes % 9 % (0-8) Neutrophils # (Manual) 3.8 TH/MM3 (1.8-7.7) 6.4 TH/MM3 (1.8-7.7) Myelocytes 1 % (0-0) Differential Comment FINAL DIFF MANUAL AUTO DIFF CONFIRMED FINAL DIFF MANUAL Platelet Estimate LOW (NORMAL) LOW (NORMAL) LOW (NORMAL) Platelet Morphology Comment ENLARGED (NORMAL) NORMAL (NORMAL) NORMAL (NORMAL) Blood Urea Nitrogen 15 MG/DL (7-18) 13 MG/DL (7-18) 13 MG/DL (7-18) Creatinine 0.30 MG/DL (0.50-1.00) 0.24 MG/DL (0.50-1.00) 0.29 MG/DL (0.50-1.00) Random Glucose 73 MG/DL (74-106) 73 MG/DL (74-106) 82 MG/DL (74-106) Calcium Level 8.1 MG/DL (8.5-10.1) 7.8 MG/DL (8.5-10.1) 7.9 MG/DL (8.5-10.1) Magnesium Level 2.2 MG/DL (1.5-2.5) 2.4 MG/DL (1.5-2.5) Sodium Level 135 MEQ/L (136-145) 136 MEQ/L (136-145) 134 MEQ/L (136-145) Potassium Level 4.4 MEQ/L (3.5-5.1) 4.5 MEQ/L (3.5-5.1) 4.6 MEQ/L (3.5-5.1) Chloride Level 94 MEQ/L (98-107) 97 MEQ/L (98-107) 95 MEQ/L (98-107) Carbon Dioxide Level 36.7 MEQ/L (21.0-32.0) 35.4 MEQ/L (21.0-32.0) 34.5 MEQ/L (21.0-32.0) Anion Gap 4 MEQ/L (5-15) 4 MEQ/L (5-15) 5 MEQ/L (5-15) Estimat Glomerular Filtration Rate 230 ML/MIN (>89) 298 ML/MIN (>89) 239 ML/MIN (>89) B-Type Natriuretic Peptide 1085 PG/ML (0-100) Prealbumin 9 MG/DL (20-40) Acanthocytes OCC (NORMAL) Band Neutrophils % 2 % (0-6) Metamyelocytes 2 % (0-1) Nucleated Red Blood Cells 1 /100 WBC (0-0) . Result Diagram: 02/06/17 0750 02/06/17 0750 Microbiology Microbiology Date/Time Source Procedure Growth Status 02/04/17 06:47 Urine Clean Catch Urine Culture - Final <10,000 CFU/ML GRAM POSITIVE BASIA Complete Assessment and Plan Disease Oriented Problem List: (1) significant aortic stenosis, CHF (2) congestive heart failure, persistent pleural effusions (3) UTI, possible sepsis (4) pancytopenia, etiology undetermined, suspect MDS (5) new atrial fibrillation, RVR (6) moderately severe COPD (7) depression Symptom Scale: (1) dyspnea 0-10 Scale: 2 (2) depression 0-10 Scale: Unable to quantify Pertinent Non-Medical Issues Psychosocial: , one adult daughter, lives with , 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 Spiritual: The patient says she is spiritual and her own way, but is not affiliated with any yarsani or clergy, and does not want c.o.d. biller visits. Legal: The patient has capacity for decision-making, and her Feliberto will be the proxy decision-maker when she loses that capacity. Ethical issues impacting care: None . Important Contacts : Feliberto Steven [phone] . 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 With her profound debility and weakness, her overall prognosis is pretty poor. . Code Status: Full Code Plan * FULL CODE; she would accept treatment with life support "for a while but not for a long time since that wouldn't really be on life." At this time, she does want to continue aggressive care at this time including mechanical ventilation and resuscitation; however, she makes it clear that if she is on a ventilator for some period of time and is not going to get better, she would want to have it withdrawn and be allowed to peacefully. * DECISION-MAKING: The patient has capacity for decision-making, and her Feliberto will be the proxy decision-maker when she loses that capacity. * GOALS: aggressive. Patient matamoros not want hospice; she wants to do whatever she can to "live." She belives she can get strong enough to have surgery. * SYMPTOMS: RVR seems to be better controlled. She denies SOB although she appears dyspneic on exam. She does not have pain at this time. I have no additional medication recommendations at this time. * Awaiting further evaluation from the TAVR team * Palliative Care will continue to follow the patient during this hospitalization. . Vidya Donnelly Feb 06, 2017 15:54
--- NOTE | 2017-02-06 18:41 | HHI.PR ---
Subjective Remarks Feels weak. Seems more alert today. Cardiac Evaluation done and AVR was suggested. Not a good candidate for surgery. On o2 2 L. On Imipenem.Wants AVR and ready to go for TAVR. SO2 sats 96.. Objective Vital Signs Date Time Temp Pulse Resp B/P (MAP) Pulse Ox O2 Delivery O2 Flow Rate FiO2 02/06/17 16:06 110 02/06/17 16:00 96.8 99 18 109/68 (82) 100 02/06/17 12:06 119 02/06/17 12:00 97.4 116 18 96/54 (68) 100 02/06/17 08:15 Nasal Cannula 2.00 02/06/17 08:04 130 02/06/17 08:00 97.2 112 18 109/64 (79) 98 02/06/17 04:52 109 02/06/17 04:00 97.5 95 18 102/69 (80) 100 02/06/17 04:00 Nasal Cannula 2.00 02/06/17 00:00 Nasal Cannula 2.00 02/06/17 00:00 97.9 112 18 111/76 (88) 100 02/05/17 23:55 108 02/05/17 20:27 Nasal Cannula 2.00 02/05/17 20:00 Nasal Cannula 2.00 02/05/17 20:00 97.2 116 18 120/68 (85) 100 02/05/17 19:52 121 I/O 02/05/17 02/05/17 02/05/17 02/06/17 02/06/17 02/06/17 07:00 15:00 23:00 07:00 15:00 23:00 Intake Total 240 ml 100 ml 760 ml 240 ml Output Total 400 ml 650 ml 750 ml Balance -160 ml 100 ml 110 ml -510 ml Intake Oral 240 ml 760 ml 240 ml IV Total 100 ml Output Urine Total 400 ml 650 ml 750 ml # Bowel Movements 0 0 1 Result Diagram: 02/06/17 0750 02/06/17 0750 Objective Remarks GENERAL: This is an averagely built middle-aged white female who is pale and not dyspneic at rest. HEENT: Head normocephalic. Pupils are reactive and equal. Tongue moist. Throat is clear. NECK: No bruits. Mild venous distension. Trachea midline. No thyroid enlargement. CHEST: diminished movements of the left chest. Breath sounds diminished over the left mid and lower chest with occasional crackles in the left chest. Right chest is clear. CARDIAC: Heart sounds are regular S1-S2 with a systolic ejection murmur 2/6 at the left sternal border. ABDOMEN: Soft, protuberant without masses. No organomegaly. EXTREMITIES: 3+ edema. Decreased pulses. No calf tenderness. NEUROLOGIC: Reflexes 1+. The patient does move all extremities well with no gross motor deficits. Cranial nerves grossly intact. SKIN: No lesions noted.2 + edema of legs Assessment and Plan Assessment and Plan IMPRESSION 1. Chronic bilateral leg edema (lymphedema). 2. Sepsis with UTI 3. COPD and chronic bronchitis 4. Severe deconditioning. 5. Status post VAT thoracotomy left chest with decortication of chronic loculated effusion 6. Atelectasis left lower lung. 7. Possible CHF. Plan : 1. Continue daily.Diuretic 2. O2 at 2 L. 3. Nebs qid , duoneb. 4. CT surgery to see her again. 5. IS q2 h. 6.Taper off prednisone in 1 week. 7. Antibiotics per ID 8. Prognosis guarded. Venessa Chung MD Feb 06, 2017 18:41
[2017-02-07] VITALS (11 sets, daily range): BP systolic 94–132; BP diastolic 55–84; PULSE 73–127; RESP 18–20; TEMP 97.2–98.3; O2SAT 100
[2017-02-07] MEDS: IMIPENEM/CILASTATIN INJ 500 MG in SODIUM CHLORIDE 0.9% INJ 100 ML IV SCH ×4 (05:32→23:24)
[2017-02-07] MEDS: BETHANECHOL CHL 25 MG TAB PO SCH ×3 (05:33→21:11)
[2017-02-07] MEDS: ENOXAPARIN SODIUM 40 MG/0.4 ML SYRINGE SQ SCH (05:33)
[2017-02-07] MEDS: TIOTROPIUM BROMIDE 18 MCG INH INH SCH (08:14)
[2017-02-07] MEDS: SODIUM CHLORIDE 0.9% FLUSH 10 ML FLUSH IV FLUSH SCH ×2 (08:14→21:12)
[2017-02-07] MEDS: FERROUS SULFATE 300 MG /5ML UDC PO SCH (08:15)
[2017-02-07] MEDS: predniSONE 5 MG TAB PO SCH (08:15)
[2017-02-07] MEDS: POTASSIUM CHLORIDE 10 MEQ CAP PO SCH ×3 (08:15→17:39)
[2017-02-07] MEDS: FUROSEMIDE 20 MG/2 ML VIAL IV PUSH SCH ×2 (08:15→17:38)
[2017-02-07] MEDS: TAMSULOSIN HCL 0.4 MG CAP PO SCH (08:15)
[2017-02-07] MEDS: MAGNESIUM OXIDE 400 MG TAB PO SCH ×2 (08:16→21:11)
[2017-02-07] MEDS: DIGOXIN 0.125 MG TAB PO SCH (08:16)
[2017-02-07] MEDS: oxyCODONE/ACETAMINOPHEN 10 MG/325 MG TAB PO PRN ×4 (08:16→23:25)
--- NOTE | 2017-02-07 09:08 | HHI.PR ---
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 good no chest discomfort, nausea or vomiting, no leg pains telemetry- a fib rate 130-140s Objective Vitals Vital Signs Date Time Temp Pulse Resp B/P (MAP) Pulse Ox O2 Delivery O2 Flow Rate FiO2 02/07/17 04:00 98.0 117 20 132/84 (100) 100 02/07/17 00:00 98.1 115 20 132/64 (86) 100 02/07/17 00:00 Nasal Cannula 2.00 02/07/17 00:00 99 02/06/17 20:10 108 02/06/17 20:00 98.2 107 20 114/56 (75) 99 02/06/17 20:00 Nasal Cannula 2.00 02/06/17 16:06 110 02/06/17 16:00 96.8 99 18 109/68 (82) 100 02/06/17 12:06 119 02/06/17 12:00 97.4 116 18 96/54 (68) 100 I/O 02/06/17 02/06/17 02/06/17 02/07/17 02/07/17 02/07/17 06:59 14:59 22:59 06:59 14:59 22:59 Intake Total 240 ml 100 ml 100 ml 440 ml Output Total 750 ml 450 ml Balance -510 ml 100 ml 100 ml -10 ml Intake Oral 240 ml 240 ml IV Total 100 ml 100 ml 200 ml Output Urine Total 750 ml 450 ml # Bowel Movements 1 Result Diagram: 02/06/17 0750 02/06/17 0750 Imaging Last Impressions Chest X-Ray 02/03/17 0600 Signed Impressions: Service Date/Time: Friday, February 03, 2017 06:17 - CONCLUSION: Stable exam. Alda Alberts MD Head CT 02/03/17 0000 Signed Impressions: Service Date/Time: Friday, February 03, 2017 16:25 - CONCLUSION: Periventricular white matter changes otherwise negative. Raf Lindsay MD FACR Objective Remarks awake and alert, no acute distress, anicteric no JVD lungs no rales or wheezes irregular rhythm- HR [id number], soft 2/6 systolic murmur left sternal border abdomen soft, nontender extremities + edema, no calf tenderness Urinary Catheter: Yes Assessment to: Continue Cabrera insert reason: Measure Accurate Output A/P Problem List: (1) UTI (urinary tract infection) ICD Code: N39.0 - Urinary tract infection, site not specified Status: Acute Assessment and Plan This is a 56-year-old female who presents to the emergency department complaining of worsening bilateral lower extremity swelling since she was discharged from [facility] [place] after being treated for left pleural effusion status post thoracotomy. She has history of chronic bilateral lower extremity lymphedema and admits noncompliance to medications and salt restriction. Worsening bilateral lower extremity lymphedema secondary to noncompliance. Discussed with pulmonary, he doesn't think it's cor pulmonale. Recent echocardiogram shows and pulmonary hypertension. Patient with severe aortic stenosis failed medical management. seen by CTS- not candidate for TAVR clinically improving- leg swelling improved- currently on Lasix 20 mg IV bid continue and gradually transition to po diuretics in am Severe Sepsis secondary to UTI with Enterobacter cloacae multidrug resistant started imipenem 02/02 . ID ff. repeat cultures - no organisms Hypotension. - resolved Poss 2/2 sepsis.- Afib in RVR- HR overnight 130s which is multifactorial including conditions mentioned above, pain, electrolyte abnormalities and meds. Continue digoxin . BP improved Cardiology ff Start Cardizem drip. for a fib- rate control . ff BPs Patient with severe aortic stenosis with medical management failed care. Patient wants aggressive management at this time. Recent echo on 12/20 with normal EF. Will monitor on telemetry. TSH nl start ? OAC- will consult Hematology- with pancytopenia- was seen in the past and refused BM biopsy Acute encephalopathy secondary to sepsis, afib, multiple comorbidities. Improved. CT head reviewed and no acute findings. COPD, chronic respiratory failure and left pleural effusion status post thoracotomy. Continue nebulizations, oxygen and taper steroids. Pulm ff Pancytopenia. Evaluated by hematology during last hospitalization refused bone marrow biopsy Hypokalemia. Currently on potassium 20 mg 3 times a day supplementation. Improved Deconditioning. Physical therapy evaluation -Cabrera catheter. Patient refused removal Cabrera catheter - Patient aware of risk of infection. Wound care DVT prophylaxis with Lovenox Problem Qualifiers (1) UTI (urinary tract infection): Qualified Codes: N30.00 - Acute cystitis without hematuria Addison Ray MD Feb 07, 2017 09:08
[2017-02-07] MEDS ORDERED: DILTIAZEM INJ 125 MG in SODIUM CHLORIDE 0.9% INJ 100 ML IV PRN (09:30)
[2017-02-07] MEDS ORDERED: DILTIAZEM HCL 25 MG/5 ML VIAL IV PUSH ONE (09:30)
--- NOTE | 2017-02-07 12:57 | HHI.IDPN ---
Note Infectious Disease Note Patient feels okay. No complaints. Afebrile. Repeat urine culture has <10,1000 cols gram positive gilberto. Cabrera catheter has clear urine. PAST MEDICAL HISTORY 1. Chronic respiratory failure. 2. Left pleural effusion. 3. COPD. 4. Chronic bilateral lower extremity lymphedema. ALLERGIES NO KNOWN DRUG ALLERGIES. ANTIBIOTICS: Imipenem. SOCIAL HISTORY The patient is . Occasional alcohol. No tobacco. No illicit drugs. OBJ: Vital Signs Date Time Temp Pulse Resp B/P (MAP) Pulse Ox O2 Delivery O2 Flow Rate FiO2 02/07/17 11:24 127 02/07/17 11:20 Nasal Cannula 2.00 02/07/17 08:00 97.2 102 18 122/60 (80) 100 02/07/17 04:00 98.0 117 20 132/84 (100) 100 02/07/17 00:00 98.1 115 20 132/64 (86) 100 02/07/17 00:00 Nasal Cannula 2.00 02/07/17 00:00 99 02/06/17 20:10 108 02/06/17 20:00 98.2 107 20 114/56 (75) 99 02/06/17 20:00 Nasal Cannula 2.00 02/06/17 16:06 110 02/06/17 16:00 96.8 99 18 109/68 (82) 100 Laboratory Tests Test 02/06/17 07:50 White Blood Count 7.6 TH/MM3 Red Blood Count 2.51 MIL/MM3 Hemoglobin 8.6 GM/DL Hematocrit 25.9 % Mean Corpuscular Volume 103.0 FL Mean Corpuscular Hemoglobin 34.2 PG Mean Corpuscular Hemoglobin Concent 33.2 % Red Cell Distribution Width 21.0 % Platelet Count 90 TH/MM3 Mean Platelet Volume 10.5 FL Neutrophils (%) (Auto) 75.0 % Lymphocytes (%) (Auto) 16.5 % Monocytes (%) (Auto) 8.0 % Eosinophils (%) (Auto) 0.4 % Basophils (%) (Auto) 0.1 % Neutrophils # (Auto) 5.7 TH/MM3 Lymphocytes # (Auto) 1.3 TH/MM3 Monocytes # (Auto) 0.6 TH/MM3 Eosinophils # (Auto) 0.0 TH/MM3 Basophils # (Auto) 0.0 TH/MM3 CBC Comment AUTO DIFF Differential Total Cells Counted 100 Neutrophils % (Manual) 80 % Band Neutrophils % 2 % Lymphocytes % 16 % Neutrophils # (Manual) 6.4 TH/MM3 Metamyelocytes 2 % Nucleated Red Blood Cells 1 /100 WBC Differential Comment FINAL DIFF MANUAL Platelet Estimate LOW Platelet Morphology Comment NORMAL Laboratory Tests Test 02/06/17 07:50 Blood Urea Nitrogen 13 MG/DL Creatinine 0.29 MG/DL Random Glucose 82 MG/DL Calcium Level 7.9 MG/DL Sodium Level 134 MEQ/L Potassium Level 4.6 MEQ/L Chloride Level 95 MEQ/L Carbon Dioxide Level 34.5 MEQ/L Anion Gap 5 MEQ/L Estimat Glomerular Filtration Rate 239 ML/MIN PHYSICAL EXAMINATION GENERAL: No acute distress. Awake and alert.. HEENT: The head is atraumatic. Extraocular movements grossly intact. No icterus. No conjunctival erythema. Oropharynx - moist mucosa. NECK: Supple. No adenopathy. LUNGS: Clear breath sounds. HEART: 5/6 systolic ejection murmur at the left sternal border and upper right sternal border. Irregular rate and rhythm. ABDOMEN: Bowel sounds present, soft, nontender. EXTREMITIES: No clubbing or cyanosis or edema. SKIN: Multiple ecchymoses of the upper extremities, and multiple punctate erythematous lesions at the chest. No diffuse rash. NEUROLOGIC: Nonfocal. PSYCHIATRIC: The patient is calm and cooperative. IMPRESSION UTI due to resistant Enterobacter cloacae. RECOMMENDATIONS Stop imipenem. No additional antibiotics needed. I will sign off now. James Pastrana MD Feb 07, 2017 12:57
--- NOTE | 2017-02-07 14:56 | PD.CARD.PN ---
Subjective Subjective Remarks alert in nad Objective Medications Current Medications Medications (Trade) Dose Ordered Sig/Armin Route Start Time Stop Time Status Last Admin (Lasix Inj) 20 mg BID@09,18 IV PUSH 01/31/17 09:00 02/07/17 08:15 (NS Flush) 2 ml UNSCH PRN IV FLUSH 01/31/17 04:45 (NS Flush) 2 ml BID IV FLUSH 01/31/17 09:00 02/07/17 08:14 (Tylenol) 650 mg Q4H PRN PO 01/31/17 04:45 02/01/17 09:57 (Zofran Inj) 4 mg Q6H PRN IVP 01/31/17 04:45 (Lovenox Inj) 40 mg Q24H SQ 01/31/17 06:00 02/07/17 05:33 (Narcan Inj) 0.4 mg UNSCH PRN IV PUSH 01/31/17 04:45 (Milk Of Magnesia Liq) 30 ml Q12H PRN PO 01/31/17 04:45 (Senokot) 17.2 mg Q12H PRN PO 01/31/17 04:45 (Dulcolax Supp) 10 mg DAILY PRN RECTAL 01/31/17 04:45 (Lactulose Liq) 30 ml DAILY PRN PO 01/31/17 04:45 (Urecholine) 25 mg Q8HR PO 01/31/17 06:00 02/07/17 12:43 (Percocet 10-325 Mg) 1 tab Q4H PRN PO 01/31/17 04:45 02/07/17 13:00 (Flomax) 0.4 mg DAILY PO 01/31/17 09:00 02/07/17 08:15 (Spiriva Inh) 18 mcg DAILY INH 01/31/17 09:00 02/07/17 08:14 (KCl) 20 meq TID PO 01/31/17 13:00 02/07/17 12:43 (Duoneb Neb) 1 ampule QID NEB PRN NEB 01/31/17 12:00 02/01/17 18:51 (Mag-Ox) 400 mg Q12HR PO 02/01/17 21:00 02/07/17 08:16 Imipenem/ Cilastatin Sodium 500 mg/Sodium Chloride 100 ml @ 200 mls/hr Q6H IV 02/02/17 12:00 02/07/17 12:44 (Ferrous Sulfate Liq) 300 mg DAILY PO 02/05/17 09:00 02/07/17 08:15 (Lanoxin) 0.125 mg DAILY PO 02/05/17 09:00 02/07/17 08:16 (Deltasone) 5 mg DAILY PO 02/07/17 09:00 02/07/17 08:15 Diltiazem HCl 125 mg/Sodium Chloride 125 ml @ 5 mls/hr TITRATE PRN IV 02/07/17 09:30 Vital Signs / I&O Vital Signs Date Time Temp Pulse Resp B/P (MAP) Pulse Ox O2 Delivery O2 Flow Rate FiO2 02/07/17 12:00 97.7 99 18 94/55 (68) 100 02/07/17 11:24 127 02/07/17 11:20 Nasal Cannula 2.00 02/07/17 08:00 97.2 102 18 122/60 (80) 100 02/07/17 04:00 98.0 117 20 132/84 (100) 100 02/07/17 00:00 98.1 115 20 132/64 (86) 100 02/07/17 00:00 Nasal Cannula 2.00 02/07/17 00:00 99 02/06/17 20:10 108 02/06/17 20:00 98.2 107 20 114/56 (75) 99 02/06/17 20:00 Nasal Cannula 2.00 02/06/17 16:06 110 02/06/17 16:00 96.8 99 18 109/68 (82) 100 I/O 02/06/17 02/06/17 02/06/17 02/07/17 02/07/17 02/07/17 07:00 15:00 23:00 07:00 15:00 23:00 Intake Total 240 ml 100 ml 100 ml 440 ml 100 ml Output Total 750 ml 450 ml Balance -510 ml 100 ml 100 ml -10 ml 100 ml Intake Oral 240 ml 240 ml IV Total 100 ml 100 ml 200 ml 100 ml Output Urine Total 750 ml 450 ml # Bowel Movements 1 Physical Exam GENERAL: SKIN: Warm and dry. HEAD: Normocephalic. EYES: No scleral icterus. No injection or drainage. NECK: Supple, trachea midline. No JVD or lymphadenopathy. CARDIOVASCULAR: Regular rate and rhythm without murmurs, gallops, or rubs. RESPIRATORY: Breath sounds equal bilaterally. No accessory muscle use. GASTROINTESTINAL: Abdomen soft, non-tender, nondistended. MUSCULOSKELETAL: No cyanosis, or edema. BACK: Nontender without obvious deformity. No CVA tenderness. Assessment and Plan Problem List: (1) COPD (chronic obstructive pulmonary disease) ICD Codes: J44.9 - Chronic obstructive pulmonary disease, unspecified Status: Chronic (2) Pleural effusion on left ICD Codes: J90 - Pleural effusion, not elsewhere classified Status: Acute (3) Aortic stenosis ICD Codes: I35.0 - Nonrheumatic aortic (valve) stenosis (4) Pulmonary HTN ICD Codes: I27.20 - Pulmonary hypertension, unspecified (5) pancytopenia, etiology undetermined, suspect MDS (6) new atrial fibrillation, RVR (7) moderately severe COPD (8) congestive heart failure, persistent pleural effusions Assessment and Plan 1.) Severe - failing medical management, continue lasix as tolerated, f/u ct surg and palliative care consults, bnp, bmp in am; d/w Dr Recinos 02/05/17, patient probably not candidate for tavr due to multiple co morbidities, awaiting eval by Dr Bustamante if not candidate for tavr, rec hospice Sd Kirk MD Feb 07, 2017 14:56
--- NOTE | 2017-02-07 18:38 | HHI.PR ---
Subjective Remarks Alert and feels better. Cardiac Evaluation done and AVR was suggested. Not a good candidate for surgery. On o2 2 L. Leg edema less. Objective Vital Signs Date Time Temp Pulse Resp B/P (MAP) Pulse Ox O2 Delivery O2 Flow Rate FiO2 02/07/17 17:25 127 02/07/17 16:40 87 02/07/17 16:00 97.6 101 18 110/68 (82) 100 02/07/17 12:00 97.7 99 18 94/55 (68) 100 02/07/17 11:24 127 02/07/17 11:20 Nasal Cannula 2.00 02/07/17 08:00 97.2 102 18 122/60 (80) 100 02/07/17 04:00 98.0 117 20 132/84 (100) 100 02/07/17 00:00 98.1 115 20 132/64 (86) 100 02/07/17 00:00 Nasal Cannula 2.00 02/07/17 00:00 99 02/06/17 20:10 108 02/06/17 20:00 98.2 107 20 114/56 (75) 99 02/06/17 20:00 Nasal Cannula 2.00 I/O 02/06/17 02/06/17 02/06/17 02/07/17 02/07/17 02/07/17 07:00 15:00 23:00 07:00 15:00 23:00 Intake Total 240 ml 100 ml 100 ml 440 ml 100 ml 600 ml Output Total 750 ml 450 ml 800 ml Balance -510 ml 100 ml 100 ml -10 ml 100 ml -200 ml Intake Oral 240 ml 240 ml 600 ml IV Total 100 ml 100 ml 200 ml 100 ml Output Urine Total 750 ml 450 ml 800 ml # Bowel Movements 1 0 Result Diagram: 02/06/17 0750 02/06/17 0750 Objective Remarks GENERAL: This is an averagely built middle-aged white female who is pale and not dyspneic at rest. HEENT: Head normocephalic. Pupils are reactive and equal. Tongue moist. Throat is clear. NECK: No bruits. Mild venous distension. Trachea midline. No thyroid enlargement. CHEST: diminished movements of the left chest. Breath sounds diminished over the left mid and lower chest . CARDIAC: Heart sounds are regular S1-S2 with a systolic ejection murmur 2/6 at the left sternal border. ABDOMEN: Soft, protuberant without masses. No organomegaly. EXTREMITIES: 3+ edema. Decreased pulses. No calf tenderness. NEUROLOGIC: Reflexes 1+. The patient does move all extremities well with no gross motor deficits. SKIN: No lesions noted.1 + edema of legs Assessment and Plan Assessment and Plan IMPRESSION 1. Chronic bilateral leg edema (lymphedema). 2. Sepsis with UTI 3. COPD and chronic bronchitis 4. Severe deconditioning. 5. Status post VAT thoracotomy left chest with decortication of chronic loculated effusion 6. Atelectasis left lower lung. 7. Possible CHF. Plan : 1. Continue daily Diuretic 2. O2 at 2 L. 3. Nebs BID , duoneb.PRN 4. CT surgery to see her again. 5. IS q2 h. 6.Taper off prednisone in 1 week. 7. Antibiotics per ID 8. Rehab Placement Venessa Chung MD Feb 07, 2017 18:38
[2017-02-08] VITALS (16 sets, daily range): BP systolic 83–122; BP diastolic 50–66; PULSE 73–139; RESP 18–20; TEMP 97.3–97.9; O2SAT 91–100
[2017-02-08] MEDS: IMIPENEM/CILASTATIN INJ 500 MG in SODIUM CHLORIDE 0.9% INJ 100 ML IV SCH (05:37)
[2017-02-08] MEDS: BETHANECHOL CHL 25 MG TAB PO SCH ×3 (05:38→22:26)
[2017-02-08] MEDS: ENOXAPARIN SODIUM 40 MG/0.4 ML SYRINGE SQ SCH (05:38)
[2017-02-08] MEDS: oxyCODONE/ACETAMINOPHEN 10 MG/325 MG TAB PO PRN ×2 (05:40→19:56)
--- NOTE | 2017-02-08 06:41 | MB ---
cc: WONG PENALOZA DATE OF CONSULTATION 02/07/2017 DATE OF 1960 REASON FOR CONSULTATION Patient with severe aortic stenosis and atrial fibrillation. Recommendation is for anticoagulation. HISTORY OF PRESENT ILLNESS This is a 56-year-old female who has a history of COPD, chronic bilateral lower extremity edema and a loculated pleural effusion. She had recent hospitalization and was discharged on January 24. She had left thoracoscopic exploration and thoracotomy for decortication and evacuation of a complex loculated effusion. She was admitted to the hospital with increasing lower extremity edema. She has had an echocardiogram which revealed significant aortic stenosis but normal ejection fraction. On her previous admission she was seen by my associate Dr. Soler. Hematology was previously consulted for pancytopenia with macrocytosis. She was recommended a bone marrow biopsy. However, she declined. She had anemia studies which revealed anemia of chronic disease. The patient now has atrial fibrillation which is new onset. Hematology has been consulted to make recommendations regarding anticoagulation in this patient. She has not had any overt bleeding. I do not see a stool hemoccult in the electronic medical records. I have reviewed the cardiology note and it appears that she is awaiting final recommendations for cardiothoracic surgery. She appears to be not a candidate for TAVR due to multiple comorbidities. It appears that if she is considered not a candidate for surgery, Cardiology is recommending hospice. REVIEW OF SYSTEMS A comprehensive review of systems was completed which was negative except as described in the HPI. PAST MEDICAL HISTORY 1. Aortic stenosis. 2. Chronic CHF. 3. Pancytopenia likely due to MDS. 4. Atrial fibrillation with RVR. 5. COPD. 6. Moderate to severe depression. 7. Chronic orthopedic foot discomfort. PAST SURGICAL HISTORY 1. Left thoracoscopic exploration on 01/11/2017. 2. Bilateral chest tube placements. MEDICATIONS They were reviewed in the EMR 1. She is on Lasix 20 mg b.i.d. 1. Diltiazem drip. 2. Prednisone 5 mg daily. 3. Ferrous sulfate 300 mg p.o. daily. 4. Digoxin 0.125 mg daily. 5. Imipenem. 6. DuoNebs. 7. Tamsulosin 0.4 mg p.o. daily. 8. Spiriva 18 mcg daily INH. 9. Lovenox 40 mg subcu q.24 hours. 10. Tylenol 650 p.o. q.4 hours. 11. Zofran 4 mg IV q.6 hours. 12. Senna. 13. Bisocodyl. 14. Lactulose. ALLERGIES No known drug allergies. FAMILY HISTORY Reviewed and it is noncontributory to this admission. Her father of lung cancer. SOCIAL HISTORY She smoked 1-2 pack-years for more than 30 years, quit 5 years ago. She occasionally drinks alcohol. No illicit drug use. No prescription medication abuse. She is . She has a 30-year-old daughter. 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 PHYSICAL EXAMINATION VITAL SIGNS: Blood pressure is 125/60, pulse in the 80s, temperature is 98.3, respiratory rate 14. GENERAL: Chronically ill-appearing female in no apparent distress. HEENT: Pupils are equal, round, reactive to light. EOMI. No oral thrush. No oral lesions. NECK: Supple. No JVD, no bruits. CHEST: Clear to auscultation bilaterally. CARDIAC: S1-S2. ABDOMEN: Soft and nontender, nondistended. Bowel sounds are present. EXTREMITIES: Without any edema, erythema or cyanosis. SKIN: Bilateral multiple bruises on forearms. NEURO: No focal deficits. PSYCHIATRIC: Mood and affect is appropriate. LABORATORY DATA WBC 7.6, hemoglobin 8.6, MCV is 103, platelet count is 90. Serum chemistries - Sodium 134, potassium 4.6, chloride 95, CO2 34.5, BUN 13, creatinine 0.29, GFR is 239, glucose is 82, calcium is 7.9, magnesium is 2.4, prealbumin is 9. BNP is 1085. IMAGING STUDIES Imaging was reviewed in the EMR. ASSESSMENT AND PLAN This is a 56-year-old female who has severe aortic stenosis, acute CHF, anemia and thrombocytopenia likely due to underlying MDI who was admitted to the hospital with acute shortness of breath and lower extremity edema. She has developed new onset A-fib. Hematology has been consulted to make recommendations. 1. Severe aortic stenosis/acute CHF/new onset A-fib. Cardiology is recommending anticoagulation. This patient has multiple comorbidities. I would recommend anticoagulation with Coumadin. She is currently on Lovenox. Continue with anticoagulation with Lovenox until her INR is greater than 2 for greater than 48 hours. 2. Macrocytic anemia and thrombocytopenia. This is likely from underlying MDS. This is not biopsy proven. She has declined bone marrow biopsy. I would recommend obtaining stool hemoccult. She was not B12 deficient and iron studies showed anemia of chronic disease. 3. Sepsis with the UTI due to Enterobacter cloacae. She was treated with imipenem. 4. Bilateral lower extremity edema due to acute congestive heart failure. Thank you for allowing me to participate in the care of this patient. I will continue to follow this patient along. MD DANIEL Gaspar/SSB /11:44 PM /6:16 AM
[2017-02-08] MEDS: TIOTROPIUM BROMIDE 18 MCG INH INH SCH (08:07)
[2017-02-08] MEDS: FERROUS SULFATE 300 MG /5ML UDC PO SCH (08:08)
[2017-02-08] MEDS: TAMSULOSIN HCL 0.4 MG CAP PO SCH (08:08)
[2017-02-08] MEDS: SODIUM CHLORIDE 0.9% FLUSH 10 ML FLUSH IV FLUSH SCH ×2 (08:08→19:55)
[2017-02-08] MEDS: POTASSIUM CHLORIDE 10 MEQ CAP PO SCH ×3 (08:08→17:57)
[2017-02-08] MEDS: predniSONE 5 MG TAB PO SCH (08:08)
[2017-02-08] MEDS: FUROSEMIDE 20 MG TAB PO SCH ×2 (08:09→17:57)
[2017-02-08] MEDS: DIGOXIN 0.125 MG TAB PO SCH (08:09)
[2017-02-08] MEDS: MAGNESIUM OXIDE 400 MG TAB PO SCH ×2 (08:09→19:55)
--- NOTE | 2017-02-08 10:24 | HHI.PR ---
Subjective Remarks feeling better good po Objective Vitals Vital Signs Date Time Temp Pulse Resp B/P (MAP) Pulse Ox O2 Delivery O2 Flow Rate FiO2 02/08/17 10:12 98 02/08/17 08:03 97.4 84 19 107/66 (80) 100 02/08/17 07:17 Nasal Cannula 2.00 02/08/17 04:50 97.7 87 18 122/59 (80) 100 02/08/17 04:14 88 02/08/17 03:23 95 02/08/17 00:25 82 02/08/17 00:18 97.3 92 18 99/62 (74) 100 02/07/17 20:50 100 Nasal Cannula 2.00 02/07/17 20:43 73 02/07/17 20:43 73 02/07/17 20:00 100 Nasal Cannula 2.00 02/07/17 19:55 98.3 86 18 125/60 (81) 100 02/07/17 17:25 127 02/07/17 16:40 87 02/07/17 16:00 97.6 101 18 110/68 (82) 100 02/07/17 13:30 101 110/68 02/07/17 12:00 97.7 99 18 94/55 (68) 100 02/07/17 11:24 127 02/07/17 11:20 Nasal Cannula 2.00 I/O 02/07/17 02/07/17 02/07/17 02/08/17 02/08/17 02/08/17 07:00 15:00 23:00 07:00 15:00 23:00 Intake Total 440 ml 100 ml 650 ml 523 ml Output Total 450 ml 800 ml 850 ml Balance -10 ml 100 ml -150 ml -327 ml Intake Oral 240 ml 650 ml 240 ml IV Total 200 ml 100 ml 283 ml Output Urine Total 450 ml 800 ml 850 ml # Bowel Movements 1 0 Result Diagram: 02/06/17 0750 02/06/17 0750 Imaging Last Impressions Chest X-Ray 02/03/17 0600 Signed Impressions: Service Date/Time: Friday, February 03, 2017 06:17 - CONCLUSION: Stable exam. Alda Alberts MD Head CT 02/03/17 0000 Signed Impressions: Service Date/Time: Speedy, February 03, 2017 16:25 - CONCLUSION: Periventricular white matter changes otherwise negative. Raf Lindsay MD FACR Objective Remarks awake and alert, no acute distress, anicteric no JVD lungs no rales or wheezes irregular rhythm- 90s, soft 2/6 systolic murmur left sternal border abdomen soft, nontender extremities- edema resolved, no calf tenderness neuro exam unremarkable A/P Problem List: (1) UTI (urinary tract infection) ICD Code: N39.0 - Urinary tract infection, site not specified Status: Acute Assessment and Plan This is a 56-year-old female who presents to the emergency department complaining of worsening bilateral lower extremity swelling since she was discharged from [facility] after being treated for left pleural effusion status post thoracotomy. She has history of chronic bilateral lower extremity lymphedema and admits noncompliance to medications and salt restriction. Worsening bilateral lower extremity lymphedema secondary to noncompliance. Discussed with pulmonary, he doesn't think it's cor pulmonale. Recent echocardiogram shows and pulmonary hypertension. Patient with severe aortic stenosis failed medical management. seen by CTS- not candidate for TAVR clinically improving- leg swelling improved- sweitched to po Lasix 20 mg po bid Severe Sepsis secondary to UTI with Enterobacter cloacae multidrug resistant started imipenem 02/02 - last dose this am 12/6 Hypotension. - resolved Poss 2/2 sepsis.- Afib in RVR- HR overnight 130s which is multifactorial including conditions mentioned above, pain, electrolyte abnormalities and meds. Severe Aortic stenosis Continue digoxin . BP improved Cardiology ff change to po Cardizem 30 mg po q 6 this am Recent echo on 12/20 with normal EF. Will monitor on telemetry. TSH nl restart OAC- seen by Hematology with pancytopenia- was seen in the past and refused BM biopsy- - start coumadin- hold for now in the event of possible procdure re: TAVR d/w Dr. Kirk consult TAVR team- consult Dr. Bustamante Acute encephalopathy secondary to sepsis, afib, multiple comorbidities. Improved. CT head reviewed and no acute findings. COPD, chronic respiratory failure and left pleural effusion status post thoracotomy. Continue nebulizations, oxygen and taper steroids. Pulm ff Pancytopenia. Evaluated by hematology during last hospitalization refused bone marrow biopsy Hypokalemia. Currently on potassium 20 mg 3 times a day supplementation. Improved Deconditioning. Physical therapy evaluation -DC bangura - discussed with patient - voiding trial- d/w her risks of keeping it - consent to removing it Wound care DVT prophylaxis with Lovenox + coumadin overlap Thrombocytopenia -possible underlying MDS - Hematology ff- plan for biopsy if patient agrees CM- DC planning- self pay we can arrange for home visits d/w palliative care team- they will d/w her hospice options Problem Qualifiers (1) UTI (urinary tract infection): Qualified Codes: N30.00 - Acute cystitis without hematuria Addison Ray MD Feb 08, 2017 10:24
--- NOTE | 2017-02-08 11:32 | PD.ONC.PN ---
Subjective Subjective Remarks Afebrile Patient reports she is feeling okay Complains about getting breakfast late today Waiting to work with physical therapy No bleeding Objective Data Date Time Temp Pulse Resp B/P (MAP) Pulse Ox O2 Delivery O2 Flow Rate FiO2 02/08/17 10:37 99 Nasal Cannula 2.00 02/08/17 10:12 98 02/08/17 08:03 97.4 84 19 107/66 (80) 100 02/08/17 07:17 Nasal Cannula 2.00 02/08/17 04:50 97.7 87 18 122/59 (80) 100 02/08/17 04:14 88 02/08/17 03:23 95 02/08/17 00:25 82 02/08/17 00:18 97.3 92 18 99/62 (74) 100 02/07/17 20:50 100 Nasal Cannula 2.00 02/07/17 20:43 73 02/07/17 20:43 73 02/07/17 20:00 100 Nasal Cannula 2.00 02/07/17 19:55 98.3 86 18 125/60 (81) 100 02/07/17 17:25 127 02/07/17 16:40 87 02/07/17 16:00 97.6 101 18 110/68 (82) 100 02/07/17 13:30 101 110/68 02/07/17 12:00 97.7 99 18 94/55 (68) 100 02/07/17 11:24 127 02/08/17 02/08/17 02/08/17 07:00 15:00 23:00 Intake Total 523 ml Output Total 850 ml Balance -327 ml Result Diagram: 02/06/17 0750 02/06/17 0750 Administered Medications Medications (Trade) Dose Ordered Sig/Armin Route PRN Reason Start Time Stop Time Status Last Admin Dose Admin Sodium Chloride (NS Flush) 2 ml BID IV FLUSH 01/31/17 09:00 02/08/17 08:08 Acetaminophen (Tylenol) 650 mg Q4H PRN PO TEMP > 100.4 01/31/17 04:45 02/01/17 09:57 Enoxaparin Sodium (Lovenox Inj) 40 mg Q24H SQ 01/31/17 06:00 02/08/17 05:38 Bethanechol Chloride (Urecholine) 25 mg Q8HR PO 01/31/17 06:00 02/08/17 05:38 Oxycodone/ Acetaminophen (Percocet 10-325 Mg) 1 tab Q4H PRN PO PAIN SCALE 5-10 01/31/17 04:45 02/08/17 05:40 Tamsulosin HCl (Flomax) 0.4 mg DAILY PO 01/31/17 09:00 02/08/17 08:08 Tiotropium [place] (Spiriva Inh) 18 mcg DAILY INH 01/31/17 09:00 02/08/17 08:07 Potassium Chloride (KCl) 20 meq TID PO 01/31/17 13:00 02/08/17 08:08 Albuterol/ Ipratropium (Duoneb Neb) 1 ampule QID NEB PRN NEB SOB/WHEEZING 01/31/17 12:00 02/01/17 18:51 Magnesium Oxide (Mag-Ox) 400 mg Q12HR PO 02/01/17 21:00 02/08/17 08:09 Ferrous Sulfate (Ferrous Sulfate Liq) 300 mg DAILY PO 02/05/17 09:00 02/08/17 08:08 Digoxin (Lanoxin) 0.125 mg DAILY PO 02/05/17 09:00 02/08/17 08:09 Prednisone (Deltasone) 5 mg DAILY PO 02/07/17 09:00 02/08/17 08:08 Diltiazem HCl 125 mg/Sodium Chloride 125 ml @ 5 mls/hr TITRATE PRN IV Tachycardia 02/07/17 09:30 02/08/17 14:00 02/07/17 13:30 Furosemide (Lasix) 20 mg BID@09,18 PO 02/08/17 09:00 02/08/17 08:09 Objective Remarks GENERAL: Disheveled, chronically ill-appearing female sitting up in bed in no acute distress SKIN: Warm and dry. Multiple bruising to her extremities HEAD: Normocephalic. EYES: No injection or drainage. NECK: Supple, trachea midline. CARDIOVASCULAR: Significant 4/6 systolic murmur. Irregular rhythm RESPIRATORY: Clear anteriorly. Breathing unlabored at rest. GASTROINTESTINAL: Abdomen soft, non-tender, nondistended. EXTREMITIES: No cyanosis. Generalized edema bilateral lower extremities MUSCULOSKELETAL: Adequate muscle tone. NEUROLOGICAL: No obvious focal deficit. Awake, alert, and oriented x3. Assessment/Plan Problem List: (1) Aortic stenosis ICD Codes: I35.0 - Nonrheumatic aortic (valve) stenosis Status: Chronic Plan: -- Start patient on Coumadin if she is declined by Dr Bustamante for TAVR -- Continue Lovenox until INR has been therapeutic for one to 2 days -- She appears to be not a candidate for TAVR due to multiple comorbidities. -- If she is considered not a candidate for surgery, Cardiology is recommending hospice. (2) pancytopenia, etiology undetermined, suspect MDS Plan: -- Patient likely has MDS . This is not biopsy proven. -- Has been refusing bone marrow biopsy (3) new atrial fibrillation, RVR Assessment 56 year-old female with pancytopenia found to have severe aortic stenosis Plan 1. Coumadin on hold until Dr Bustamante evaluates pt for TAVR 2. Monitor daily CBC 3. Continue Lovenox Attending Statement The exam, history, and the medical decision-making described in the above note were completed with the assistance of the mid-level provider. I reviewed and agree with the findings presented. I attest that I had a [id number] encounter with the patient on the same day, and personally performed and documented my assessment and findings in the medical record Problem Qualifiers (1) Aortic stenosis: Qualified Codes: I35.0 - Nonrheumatic aortic (valve) stenosis Jo Grace Feb 08, 2017 11:32 Wicho Yun MD Feb 08, 2017 23:40
[2017-02-08] MEDS: DILTIAZEM HCL 30 MG TAB PO SCH ×2 (12:16→17:56)
--- NOTE | 2017-02-08 13:30 | PD.CARD.PN ---
Subjective Subjective Remarks alert in nad Objective Medications Current Medications Medications (Trade) Dose Ordered Sig/Armin Route Start Time Stop Time Status Last Admin (NS Flush) 2 ml UNSCH PRN IV FLUSH 01/31/17 04:45 (NS Flush) 2 ml BID IV FLUSH 01/31/17 09:00 02/08/17 08:08 (Tylenol) 650 mg Q4H PRN PO 01/31/17 04:45 02/01/17 09:57 (Zofran Inj) 4 mg Q6H PRN IVP 01/31/17 04:45 (Lovenox Inj) 40 mg Q24H SQ 01/31/17 06:00 02/08/17 05:38 (Narcan Inj) 0.4 mg UNSCH PRN IV PUSH 01/31/17 04:45 (Milk Of Magnesia Liq) 30 ml Q12H PRN PO 01/31/17 04:45 (Senokot) 17.2 mg Q12H PRN PO 01/31/17 04:45 (Dulcolax Supp) 10 mg DAILY PRN RECTAL 01/31/17 04:45 (Lactulose Liq) 30 ml DAILY PRN PO 01/31/17 04:45 (Urecholine) 25 mg Q8HR PO 01/31/17 06:00 02/08/17 12:16 (Percocet 10-325 Mg) 1 tab Q4H PRN PO 01/31/17 04:45 02/08/17 05:40 (Flomax) 0.4 mg DAILY PO 01/31/17 09:00 02/08/17 08:08 (Spiriva Inh) 18 mcg DAILY INH 01/31/17 09:00 02/08/17 08:07 (KCl) 20 meq TID PO 01/31/17 13:00 02/08/17 12:17 (Duoneb Neb) 1 ampule QID NEB PRN NEB 01/31/17 12:00 02/01/17 18:51 (Mag-Ox) 400 mg Q12HR PO 02/01/17 21:00 02/08/17 08:09 (Ferrous Sulfate Liq) 300 mg DAILY PO 02/05/17 09:00 02/08/17 08:08 (Lanoxin) 0.125 mg DAILY PO 02/05/17 09:00 02/08/17 08:09 (Deltasone) 5 mg DAILY PO 02/07/17 09:00 02/08/17 08:08 Diltiazem HCl 125 mg/Sodium Chloride 125 ml @ 5 mls/hr TITRATE PRN IV 02/07/17 09:30 02/08/17 14:00 02/07/17 13:30 (Lasix) 20 mg BID@09,18 PO 02/08/17 09:00 02/08/17 08:09 (Cardizem) 30 mg Q6HR PO 02/08/17 11:00 02/08/17 12:16 Vital Signs / I&O Vital Signs Date Time Temp Pulse Resp B/P (MAP) Pulse Ox O2 Delivery O2 Flow Rate FiO2 02/08/17 12:02 97.6 91 19 83/50 (61) 100 02/08/17 10:37 99 Nasal Cannula 2.00 02/08/17 10:12 98 02/08/17 08:03 97.4 84 19 107/66 (80) 100 02/08/17 07:17 Nasal Cannula 2.00 02/08/17 04:50 97.7 87 18 122/59 (80) 100 02/08/17 04:14 88 02/08/17 03:23 95 02/08/17 00:25 82 02/08/17 00:18 97.3 92 18 99/62 (74) 100 02/07/17 20:50 100 Nasal Cannula 2.00 02/07/17 20:43 73 02/07/17 20:43 73 02/07/17 20:00 100 Nasal Cannula 2.00 02/07/17 19:55 98.3 86 18 125/60 (81) 100 02/07/17 17:25 127 02/07/17 16:40 87 02/07/17 16:00 97.6 101 18 110/68 (82) 100 02/07/17 13:30 101 110/68 I/O 02/07/17 02/07/17 02/07/17 02/08/17 02/08/17 02/08/17 07:00 15:00 23:00 07:00 15:00 23:00 Intake Total 440 ml 100 ml 650 ml 523 ml Output Total 450 ml 800 ml 850 ml Balance -10 ml 100 ml -150 ml -327 ml Intake Oral 240 ml 650 ml 240 ml IV Total 200 ml 100 ml 283 ml Output Urine Total 450 ml 800 ml 850 ml # Bowel Movements 1 0 Physical Exam GENERAL: SKIN: Warm and dry. HEAD: Normocephalic. EYES: No scleral icterus. No injection or drainage. NECK: Supple, trachea midline. No JVD or lymphadenopathy. CARDIOVASCULAR: Regular rate and rhythm without murmurs, gallops, or rubs. RESPIRATORY: Breath sounds equal bilaterally. No accessory muscle use. GASTROINTESTINAL: Abdomen soft, non-tender, nondistended. MUSCULOSKELETAL: No cyanosis, or edema. BACK: Nontender without obvious deformity. No CVA tenderness. Assessment and Plan Problem List: (1) COPD (chronic obstructive pulmonary disease) ICD Codes: J44.9 - Chronic obstructive pulmonary disease, unspecified Status: Chronic (2) Pleural effusion on left ICD Codes: J90 - Pleural effusion, not elsewhere classified Status: Acute (3) Aortic stenosis ICD Codes: I35.0 - Nonrheumatic aortic (valve) stenosis (4) Pulmonary HTN ICD Codes: I27.20 - Pulmonary hypertension, unspecified (5) pancytopenia, etiology undetermined, suspect MDS (6) new atrial fibrillation, RVR (7) moderately severe COPD (8) congestive heart failure, persistent pleural effusions Assessment and Plan 1.) Severe - failing medical management, continue lasix as tolerated, f/u ct surg and palliative care consults, bnp, bmp in am; d/w Dr Recinos 02/05/17, patient probably not candidate for tavr due to multiple co morbidities, awaiting eval by Dr Bustamante if not candidate for tavr, rec hospice 2.) Afib - hematology rec lovenox bridge to coumadin, hold coumadin until tavr descision made. d/w Dr Ray and patient Malou Kirkrajani Garner MD Feb 08, 2017 13:30
[2017-02-08] MEDS ORDERED: WARFARIN SOD 10 MG TAB PO ONE (16:00)
--- NOTE | 2017-02-08 17:39 | PD.CONS ---
HPI Consult Requested By Primary Care Physician Venessa Chung MD History of Present Illness 56-year-old lady readmitted on 01/30/2017 with acute on chronic diastolic heart failure in the setting of severe aortic stenosis, anemia/pancytopenia. She was just recently discharged from [facility] after being treated for left pleural effusion status post thoracotomy. At that time she also had significant pancytopenia. She was diagnosed with myelodysplastic syndrome however she refused bone marrow biopsy. Also she was diagnosed with but was deemed poor AVR candidate. She was discharged on 01/24 home with home oxygen. Now she has become weaker, unable to get up and ambulate by herself, worsening edema of her lower extremities. Her platelet count was 69,000. Urinalysis was consistent with a UTI. A chest x-ray showed left pleural effusion. We were consulted to evaluate for the patient being a candidate for transcatheter aortic valve replacement. Review of Systems Consitutional: COMPLAINS OF: Fatigue, Weight gain, DENIES: Fever, Chills, Weight loss Eyes: DENIES: Amaurosis Fugax, Change in vision HEENT: DENIES: Lightheadedness, Change in hearing Respiratory: COMPLAINS OF: Shortness of breath, DENIES: See HPI, Cough, Snoring , Wheezing, Sputum production Cardiovascular: DENIES: See HPI, Chest pain, Palpitations, Syncope, Tachycardia Gastrointestinal: DENIES: Nausea, Vomiting, Change in bowel habits, Reflux, Bloody stools, Melena Genitourinary: DENIES: Urinary incontinence, Difficulty voiding Integumentary: DENIES: Rash Neurologic: DENIES: Tingling or numbness, Memory problems, Poor Balance, Stroke symptoms Musculoskeletal: DENIES: Joint pain, Muscle pain, Limited range of motion, Back pain Psychiatric: DENIES: Anxiety, Depression, Sleep disturbances Hematologic: COMPLAINS OF: Bruising tendencies, DENIES: Bleeding tendencies Endocrine: DENIES: Weight gain, Weight loss, Thyroid disease Past Family Social History Allergies: Coded Allergies: No Known Allergies (Verified , 12/29/16) Past Medical History 1. Aortic stenosis, 2. Congestive heart failure 3. Pancytopenia 4. Probable myelodysplastic syndrome. 5. Atrial fibrillation 6. Severe COPD 7. Depression Past Surgical History 1. Recent left thorascopic exploration decortication 2. Bilateral chest tubes recently in January 2017. Reported Medications Reported Meds & Active Scripts Active Oxycodone-Acetaminophen 10-325 (Oxycodone HCl/Acetaminophen) 10 Mg-325 Mg Tablet 1 Tab PO Q4H PRN Prednisone 5 Mg Tab 3 Tab PO DAILY Ventolin Hfa 18 GM Inh (Albuterol Sulfate) 90 Mcg/Act Aer 2 Puff INH Q4-6H PRN Spiriva Handihaler (Tiotropium Inh) 18 Mcg Cap 18 Mcg INH DAILY 1 capsule = 18 mcg Ferosul (Ferrous Sulfate) 325 Mg (65 Mg Iron) Tablet 325 Mg PO BID Flomax (Tamsulosin HCl) 0.4 Mg Cap 0.4 Mg PO DAILY Urecholine (Bethanechol Chloride) 25 Mg Tab 25 Mg PO Q8H Reported Furosemide 20 Mg Tab 20 Mg PO DAILY Active Ordered Medications Current Medications Medications (Trade) Dose Ordered Sig/Armin Route Start Time Stop Time Status Last Admin (NS Flush) 2 ml UNSCH PRN IV FLUSH 01/31/17 04:45 (NS Flush) 2 ml BID IV FLUSH 01/31/17 09:00 02/08/17 08:08 (Tylenol) 650 mg Q4H PRN PO 01/31/17 04:45 02/01/17 09:57 (Zofran Inj) 4 mg Q6H PRN IVP 01/31/17 04:45 (Lovenox Inj) 40 mg Q24H SQ 01/31/17 06:00 02/08/17 05:38 (Narcan Inj) 0.4 mg UNSCH PRN IV PUSH 01/31/17 04:45 (Milk Of Magnesia Liq) 30 ml Q12H PRN PO 01/31/17 04:45 (Senokot) 17.2 mg Q12H PRN PO 01/31/17 04:45 (Dulcolax Supp) 10 mg DAILY PRN RECTAL 01/31/17 04:45 (Lactulose Liq) 30 ml DAILY PRN PO 01/31/17 04:45 (Urecholine) 25 mg Q8HR PO 01/31/17 06:00 02/08/17 12:16 (Percocet 10-325 Mg) 1 tab Q4H PRN PO 01/31/17 04:45 02/08/17 05:40 (Flomax) 0.4 mg DAILY PO 01/31/17 09:00 02/08/17 08:08 (Spiriva Inh) 18 mcg DAILY INH 01/31/17 09:00 02/08/17 08:07 (KCl) 20 meq TID PO 01/31/17 13:00 02/08/17 12:17 (Duoneb Neb) 1 ampule QID NEB PRN NEB 01/31/17 12:00 02/01/17 18:51 (Mag-Ox) 400 mg Q12HR PO 02/01/17 21:00 02/08/17 08:09 (Ferrous Sulfate Liq) 300 mg DAILY PO 02/05/17 09:00 02/08/17 08:08 (Lanoxin) 0.125 mg DAILY PO 02/05/17 09:00 02/08/17 08:09 (Deltasone) 5 mg DAILY PO 02/07/17 09:00 02/08/17 08:08 (Lasix) 20 mg BID@09,18 PO 02/08/17 09:00 02/08/17 08:09 (Cardizem) 30 mg Q6HR PO 02/08/17 11:00 02/08/17 12:16 Family History Father at 54 from lung cancer. Mother at 75 of CHF. Social History Smoked one to two packs and she quit five years ago. 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 Physical Exam Vital Signs Vital Signs Date Time Temp Pulse Resp B/P (MAP) Pulse Ox O2 Delivery O2 Flow Rate FiO2 02/08/17 16:03 97.9 74 20 103/62 (76) 95 02/08/17 15:37 97.9 74 20 103/62 (76) 95 02/08/17 15:19 73 02/08/17 12:02 97.6 91 19 83/50 (61) 100 02/08/17 10:37 99 Nasal Cannula 2.00 02/08/17 10:12 98 02/08/17 08:03 97.4 84 19 107/66 (80) 100 02/08/17 07:17 Nasal Cannula 2.00 02/08/17 04:50 97.7 87 18 122/59 (80) 100 02/08/17 04:14 88 02/08/17 03:23 95 02/08/17 00:25 82 02/08/17 00:18 97.3 92 18 99/62 (74) 100 02/07/17 20:50 100 Nasal Cannula 2.00 02/07/17 20:43 73 02/07/17 20:43 73 02/07/17 20:00 100 Nasal Cannula 2.00 02/07/17 19:55 98.3 86 18 125/60 (81) 100 Physical Exam GENERAL: Weak, cachetic SKIN: Warm and dry. HEAD: Normocephalic. EYES: No scleral icterus. No injection or drainage. NECK: Supple, trachea midline. No JVD or lymphadenopathy. CARDIOVASCULAR: Irr Irr without 3/6 NATALIE no gallops, or rubs. RESPIRATORY: Breath sounds equal bilaterally. No accessory muscle use. GASTROINTESTINAL: Abdomen soft, non-tender, nondistended. EXTREMITIES: No cyanosis, or edema. NEUROLOGICAL: Awake, alert, and oriented x 3. Non-focal. Laboratory Date/Time Source Procedure Growth Status 02/02/17 14:08 Blood Other Aerobic Blood Culture - Final NO GROWTH IN 5 DAYS Complete 02/02/17 14:08 Blood Other Anaerobic Blood Culture - Final NO GROWTH IN 5 DAYS Complete 02/04/17 06:47 Urine Clean Catch Urine Culture - Final <10,000 CFU/ML GRAM POSITIVE BASIA Complete Result Diagram: 02/06/17 0750 02/06/17 0750 Imaging Last Impressions Chest X-Ray 02/03/17 0600 Signed Impressions: Service Date/Time: Friday, February 03, 2017 06:17 - CONCLUSION: Stable exam. Alda Alberts MD Head CT 02/03/17 0000 Signed Impressions: Service Date/Time: Friday, February 03, 2017 16:25 - CONCLUSION: Periventricular white matter changes otherwise negative. Raf Lindsay MD FACR Assessment and Plan Problem List: (1) Aortic stenosis ICD Codes: I35.0 - Nonrheumatic aortic (valve) stenosis Status: Chronic Plan: 56y/o F chronically ill admitted with acute on chronic diastolic heart failure in the setting of severe anemia, afib with RVR and severe aortic stenosis. She is a chronically ill patient, extremely weak and 4/4 frail. Refused multiple treatments in the past including Bone Marrow biopsy and LHC, however today she change her mind and wants to have the BM biopsy done. Regarding Aortic Stenosis I agree with CT surgery that she is to frail to undergo conventional AVR and might TAVR might be an option, but not NOW. Patient would need to get stronger, go to Rehab, and get Bone Marrow with flow cytometry and cytogenetic for diagnosis, treatment and prognosis MDS. And follow up with the TAVR team. Thank you for the opportunity to participate in the care of this patient (2) COPD (chronic obstructive pulmonary disease) ICD Codes: J44.9 - Chronic obstructive pulmonary disease, unspecified Status: Chronic (3) Pleural effusion on left ICD Codes: J90 - Pleural effusion, not elsewhere classified Status: Acute (4) Pulmonary HTN ICD Codes: I27.20 - Pulmonary hypertension, unspecified (5) pancytopenia, etiology undetermined, suspect MDS (6) new atrial fibrillation, RVR (7) moderately severe COPD (8) congestive heart failure, persistent pleural effusions Problem Qualifiers (1) Aortic stenosis: Qualified Codes: I35.0 - Nonrheumatic aortic (valve) stenosis Jelani Mc MD Feb 08, 2017 17:39
--- NOTE | 2017-02-08 18:52 | HHI.PR ---
Subjective Remarks Alert and better. Taking more orally. Cardiac Evaluation done and AVR was suggested. On o2 2 L. Leg edema as before. Able to move better. Objective Vital Signs Date Time Temp Pulse Resp B/P (MAP) Pulse Ox O2 Delivery O2 Flow Rate FiO2 02/08/17 18:46 82 02/08/17 16:03 97.9 74 20 103/62 (76) 95 02/08/17 15:37 97.9 74 20 103/62 (76) 95 02/08/17 15:19 73 02/08/17 12:02 97.6 91 19 83/50 (61) 100 02/08/17 10:37 99 Nasal Cannula 2.00 02/08/17 10:12 98 02/08/17 08:03 97.4 84 19 107/66 (80) 100 02/08/17 07:17 Nasal Cannula 2.00 02/08/17 04:50 97.7 87 18 122/59 (80) 100 02/08/17 04:14 88 02/08/17 03:23 95 02/08/17 00:25 82 02/08/17 00:18 97.3 92 18 99/62 (74) 100 02/07/17 20:50 100 Nasal Cannula 2.00 02/07/17 20:43 73 02/07/17 20:43 73 02/07/17 20:00 100 Nasal Cannula 2.00 02/07/17 19:55 98.3 86 18 125/60 (81) 100 I/O 02/07/17 02/07/17 02/07/17 02/08/17 02/08/17 02/08/17 07:00 15:00 23:00 07:00 15:00 23:00 Intake Total 440 ml 100 ml 650 ml 523 ml 83 ml Output Total 450 ml 800 ml 850 ml Balance -10 ml 100 ml -150 ml -327 ml 83 ml Intake Oral 240 ml 650 ml 240 ml IV Total 200 ml 100 ml 283 ml 83 ml Output Urine Total 450 ml 800 ml 850 ml # Bowel Movements 1 0 Result Diagram: 02/06/17 0750 02/06/17 0750 Objective Remarks GENERAL: This is an averagely built middle-aged white female who is pale and not dyspneic at rest. HEENT: Head normocephalic. Pupils are reactive and equal. Tongue moist. Throat is clear. NECK: No bruits. No venous distension. Trachea midline. No thyroid enlargement. CHEST: diminished movements of the left chest. Breath sounds diminished over the left mid and lower chest . CARDIAC: Heart sounds are regular S1-S2 with a systolic ejection murmur 2/6 at the left sternal border. ABDOMEN: Soft, protuberant without masses. No organomegaly. EXTREMITIES: 3+ edema. Decreased pulses. No calf tenderness. NEUROLOGIC: Reflexes 1+. The patient does move all extremities well with no gross motor deficits. SKIN: No lesions noted.1 + edema of legs Assessment and Plan Assessment and Plan IMPRESSION 1. Chronic bilateral leg edema (lymphedema). 2. Sepsis with UTI 3. COPD and chronic bronchitis 4. Severe deconditioning. 5. Status post VAT thoracotomy left chest with decortication of chronic loculated effusion 6. Atelectasis left lower lung. 7. Possible CHF. Plan : 1. Continue daily Diuretic 2. O2 at 2 L. 3. Nebs BID , duoneb.PRN 4. Bone marrow biopsy in am 5. IS q2 h. 6.Taper off prednisone in 1 week. 7. Antibiotics per ID 8. Rehab Placement Venessa Chung MD Feb 08, 2017 18:51
[2017-02-09] VITALS (12 sets, daily range): BP systolic 92–112; BP diastolic 57–71; PULSE 72–109; RESP 16–20; TEMP 97.3–98.1; O2SAT 100
[2017-02-09] MEDS: DILTIAZEM HCL 30 MG TAB PO SCH ×5 (00:36→23:35)
[2017-02-09] MEDS: oxyCODONE/ACETAMINOPHEN 10 MG/325 MG TAB PO PRN ×3 (03:02→23:35)
[2017-02-09] MEDS: ENOXAPARIN SODIUM 40 MG/0.4 ML SYRINGE SQ SCH (06:25)
[2017-02-09] MEDS: BETHANECHOL CHL 25 MG TAB PO SCH ×3 (06:25→21:03)
--- NOTE | 2017-02-09 08:02 | HHI.PR ---
Subjective Remarks telemetry- a fib rhythm- rate controlled- 80s patient in very good spirits feeling better good po voiding spontaneously Objective Vitals Vital Signs Date Time Temp Pulse Resp B/P (MAP) Pulse Ox O2 Delivery O2 Flow Rate FiO2 02/09/17 05:43 97.3 104 16 103/69 (80) 100 02/09/17 04:00 103 02/09/17 04:00 Nasal Cannula 2.00 02/09/17 00:00 99 02/09/17 00:00 Nasal Cannula 3.00 02/08/17 23:22 97.5 102 18 110/59 (76) 100 02/08/17 20:39 108 02/08/17 20:00 Nasal Cannula 2.00 02/08/17 19:50 97.3 96 18 107/63 (78) 91 02/08/17 18:46 82 02/08/17 16:03 97.9 74 20 103/62 (76) 95 02/08/17 15:37 97.9 74 20 103/62 (76) 95 02/08/17 15:19 73 02/08/17 12:02 97.6 91 19 83/50 (61) 100 02/08/17 10:37 99 Nasal Cannula 2.00 02/08/17 10:12 98 02/08/17 08:03 97.4 84 19 107/66 (80) 100 I/O 02/08/17 02/08/17 02/08/17 02/09/17 02/09/17 02/09/17 07:00 15:00 23:00 07:00 15:00 23:00 Intake Total 523 ml 203 ml 200 ml Output Total 850 ml 125 ml 0 ml Balance -327 ml 78 ml 200 ml Intake Oral 240 ml 120 ml 200 ml IV Total 283 ml 83 ml Output Urine Total 850 ml 125 ml 0 ml Bladder Scan Volume Amount 165 ml 285 ml # Bowel Movements 0 0 0 Result Diagram: 02/06/17 0750 02/06/17 0750 Imaging Last Impressions Chest X-Ray 02/03/17 0600 Signed Impressions: Service Date/Time: Friday, February 03, 2017 06:17 - CONCLUSION: Stable exam. Alda Alberts MD Head CT 02/03/17 0000 Signed Impressions: Service Date/Time: Friday, February 03, 2017 16:25 - CONCLUSION: Periventricular white matter changes otherwise negative. Raf Lindsay MD FACR Objective Remarks awake and alert, no acute distress, anicteric no JVD lungs no rales or wheezes irregular rhythm- 80s, soft 2/6 systolic murmur left sternal border abdomen soft, nontender extremities- edema much improved, no calf tenderness neuro exam unremarkable Urinary Catheter: No Assessment to: Remove Date of Removal: Feb 08, 2017 A/P Problem List: (1) UTI (urinary tract infection) ICD Code: N39.0 - Urinary tract infection, site not specified Status: Acute Assessment and Plan This is a 56-year-old female who presents to the emergency department complaining of worsening bilateral lower extremity swelling since she was discharged from [facility] after being treated for left pleural effusion status post thoracotomy. She has history of chronic bilateral lower extremity lymphedema and admits noncompliance to medications and salt restriction. Bilateral lower extremity lymphedema secondary to noncompliance. - Improved Discussed with pulmonary, he doesn't think it's cor pulmonale. Recent echocardiogram shows and pulmonary hypertension. Patient with severe aortic stenosis failed medical management. seen by CTS and TAVR team - not candidate for TAVR clinically improving- leg swelling improved- Lasix 20 mg po bid Severe Sepsis secondary to UTI with Enterobacter cloacae multidrug resistant S/P course of imipenem / Hypotension. - resolved Poss 2/2 sepsis.- Afib in RVR- which is multifactorial including conditions mentioned above, pain , electrolyte abnormalities and meds. Severe Aortic stenosis Continue digoxin . BP improved Cardiology ff po Cardizem 30 mg po q 6 . digoxin 0,125 mg po daily Patient with severe aortic stenosis with medical management failed care. Patient wants aggressive management at this time. Recent echo on 12/20 with normal EF. Will monitor on telemetry. TSH nl restart OAC- seen by Hematology with pancytopenia- was seen in the past and refused BM biopsy- - start coumadin-today- dose for 10 mg Acute encephalopathy secondary to sepsis, afib, multiple comorbidities. Improved. CT head reviewed and no acute findings. COPD, chronic respiratory failure and left pleural effusion status post thoracotomy. Continue nebulizations, oxygen and taper steroids. Pulm ff Hypokalemia. Currently on potassium 20 mg 3 times a day supplementation. Improved Deconditioning. Physical therapy evaluation Wound care Thrombocytopenia/Pancytopenia Hematology ff- plan for BM biopsy if patient agrees DVT prophylaxis on Lovenox . start coumadin overlap CM- DC planning- self pay but needs rehab for deconditioning patient wants and willing to go rehab to get stronger- [facility]- will consult [facility]" and actually patient states she was given some finances for rehab specifically and willing to shoulder some cost for [facility] if needs to Problem Qualifiers (1) UTI (urinary tract infection): Qualified Codes: N30.00 - Acute cystitis without hematuria Addison Ray MD Feb 09, 2017 08:02
[2017-02-09 09:29] LABS: PROTHROMBIN TIME - PATIENT 10.4 SEC (9.8-11.6)
[2017-02-09 10:13] LABS: BICARBONATE 35.7 MEQ/L (21.0-32.0); POTASSIUM 4.5 MEQ/L (3.5-5.1)
[2017-02-09] MEDS: POTASSIUM CHLORIDE 10 MEQ CAP PO SCH ×3 (10:24→17:55)
[2017-02-09] MEDS: FUROSEMIDE 20 MG TAB PO SCH ×2 (10:24→17:56)
[2017-02-09] MEDS: MAGNESIUM OXIDE 400 MG TAB PO SCH ×2 (10:24→21:03)
[2017-02-09] MEDS: DIGOXIN 0.125 MG TAB PO SCH (10:24)
[2017-02-09] MEDS: FERROUS SULFATE 300 MG /5ML UDC PO SCH (10:25)
[2017-02-09] MEDS: SODIUM CHLORIDE 0.9% FLUSH 10 ML FLUSH IV FLUSH SCH ×2 (10:25→21:03)
[2017-02-09] MEDS: TIOTROPIUM BROMIDE 18 MCG INH INH SCH (10:25)
[2017-02-09] MEDS: TAMSULOSIN HCL 0.4 MG CAP PO SCH (10:25)
[2017-02-09] MEDS: predniSONE 5 MG TAB PO SCH (10:25)
--- NOTE | 2017-02-09 12:35 | HHI.HCPN ---
Met with Mrs. Steven for follow-up supportive visit and ongoing conversation regarding goals of care. She is currently lying in bed, no apparent distress, appears comfortable but verbalizes some pain. Requests pain medicine, nurse aware and recently medicated. Mrs. Steven indicates she met with business office representative from [facility] regarding rehab placement and they cannot accept her at this time. Reports she was told she needs to work with therapy on medical floor to "show what I can do ". Spoke with Ilene from [facility], indicates she is going to monitor the patient over the next few days, unable to accept due to limited participation with current therapy regiment. Mrs. Steven understands she may not be a candidate for inpatient rehab and is willing to accept placement at SNF although this is not her ideal. She does not recall speaking with the cone winder or TAVR team, although understands she is not a candidate for any surgeries at this time. We gently talked about how sometimes our actual abilities to do things are unable to match our desire and drive. She verbalizes "I thought this was going to be a lot easier than it is". Further states "I haven't walked in over 4 months". Offered emotional support and active listening. While I believe Mrs. Steven has somewhat of an understanding of her limitations at this time, her goals remain aggressive in an attempt to maximize what she can. She requests to speak with physical therapy to set up a schedule with them for the next few days. Nurse aware and will assist with coordinating. Palliative care will continue to follow throughout hospitalization. Michell Tate, CLEARING DISTRIBUTION CLERK Feb 09, 2017 12:35
--- NOTE | 2017-02-09 13:12 | HHI.PR ---
Subjective Remarks Alert and in good spirits. Taking more orally. Cardiac Evaluation done and AVR was suggested. On o2 2 L. Leg edema is less. On Coumadin and has A Fib. Able to move better. Objective Vital Signs Date Time Temp Pulse Resp B/P (MAP) Pulse Ox O2 Delivery O2 Flow Rate FiO2 02/09/17 08:00 86 02/09/17 08:00 97.6 88 18 102/71 (81) 100 02/09/17 07:30 Nasal Cannula 2.00 02/09/17 05:43 97.3 104 16 103/69 (80) 100 02/09/17 04:00 103 02/09/17 04:00 Nasal Cannula 2.00 02/09/17 00:00 99 02/09/17 00:00 Nasal Cannula 3.00 02/08/17 23:22 97.5 102 18 110/59 (76) 100 02/08/17 20:39 108 02/08/17 20:00 Nasal Cannula 2.00 02/08/17 19:50 97.3 96 18 107/63 (78) 91 02/08/17 18:46 82 02/08/17 16:03 97.9 74 20 103/62 (76) 95 02/08/17 15:37 97.9 74 20 103/62 (76) 95 02/08/17 15:19 73 I/O 02/08/17 02/08/17 02/08/17 02/09/17 02/09/17 02/09/17 07:00 15:00 23:00 07:00 15:00 23:00 Intake Total 523 ml 203 ml 200 ml Output Total 850 ml 125 ml 0 ml Balance -327 ml 78 ml 200 ml Intake Oral 240 ml 120 ml 200 ml IV Total 283 ml 83 ml Output Urine Total 850 ml 125 ml 0 ml Bladder Scan Volume Amount 165 ml 285 ml 408 ml # Bowel Movements 0 0 0 Result Diagram: 02/06/17 0750 02/09/17 0836 Objective Remarks GENERAL: This is an averagely built middle-aged white female who is pale and not dyspneic at rest. HEENT: Head normocephalic. Pupils are reactive and equal. Tongue moist. Throat is clear. NECK: No bruits. No venous distension. Trachea midline. No thyroid enlargement. CHEST: diminished movements of the left chest. Breath sounds diminished over the left mid and lower chest Occ Crackles +. CARDIAC: Heart sounds are regular S1-S2 with a systolic ejection murmur3/6 at the left sternal border. ABDOMEN: Soft, protuberant without masses. No organomegaly. EXTREMITIES: 3+ edema. Decreased pulses. No calf tenderness. NEUROLOGIC: Reflexes 1+. The patient does move all extremities well with no gross motor deficits. SKIN: No lesions noted.1 + edema of legs Assessment and Plan Assessment and Plan IMPRESSION 1. Chronic bilateral leg edema (lymphedema). 2. Sepsis with UTI 3. COPD and chronic bronchitis 4. Severe deconditioning. 5. Status post VAT thoracotomy left chest with decortication of chronic loculated effusion 6. Atelectasis left lower lung. 7. Possible CHF. Plan : 1. Continue daily Diuretic 2. O2 at 2 L. 3. Nebs BID , duoneb.PRN 4. Bone marrow biopsy soon. 5. continue IS q2 h. 6. Taper prednisone . 7. Antibiotics per ID. 8. Rehab Placement Venessa Chung MD Feb 09, 2017 13:12
--- NOTE | 2017-02-09 14:28 | PD.ONC.PN ---
Subjective Subjective Remarks Afebrile Pt reports she will finally consent to BMB She was informed she will not be a candidate for TAVR until pancytopenia is further investigated Hoping to go to rehabilitation soon Objective Data Date Time Temp Pulse Resp B/P (MAP) Pulse Ox O2 Delivery O2 Flow Rate FiO2 02/09/17 12:00 97.8 96 18 112/63 (79) 100 02/09/17 08:00 86 02/09/17 08:00 97.6 88 18 102/71 (81) 100 02/09/17 07:30 Nasal Cannula 2.00 02/09/17 05:43 97.3 104 16 103/69 (80) 100 02/09/17 04:00 103 02/09/17 04:00 Nasal Cannula 2.00 02/09/17 00:00 99 02/09/17 00:00 Nasal Cannula 3.00 02/08/17 23:22 97.5 102 18 110/59 (76) 100 02/08/17 20:39 108 02/08/17 20:00 Nasal Cannula 2.00 02/08/17 19:50 97.3 96 18 107/63 (78) 91 02/08/17 18:46 82 02/08/17 16:03 97.9 74 20 103/62 (76) 95 02/08/17 15:37 97.9 74 20 103/62 (76) 95 02/08/17 15:19 73 02/09/17 02/09/17 02/09/17 07:00 15:00 23:00 Intake Total 200 ml Output Total 0 ml 500 ml Balance 200 ml -500 ml Result Diagram: 02/06/17 0750 02/09/17 0836 Laboratory Results Laboratory Tests Test 02/09/17 08:36 Prothrombin Time 10.4 SEC Prothromb Time International Ratio 1.0 RATIO Blood Urea Nitrogen 12 MG/DL Creatinine 0.41 MG/DL Random Glucose 107 MG/DL Calcium Level 7.9 MG/DL Sodium Level 136 MEQ/L Potassium Level 4.5 MEQ/L Chloride Level 98 MEQ/L Carbon Dioxide Level 35.7 MEQ/L Anion Gap 2 MEQ/L Estimat Glomerular Filtration Rate 160 ML/MIN Magnesium Level 2.4 MG/DL Administered Medications Medications (Trade) Dose Ordered Sig/Armin Route PRN Reason Start Time Stop Time Status Last Admin Dose Admin Sodium Chloride (NS Flush) 2 ml BID IV FLUSH 01/31/17 09:00 02/09/17 10:25 Acetaminophen (Tylenol) 650 mg Q4H PRN PO TEMP > 100.4 01/31/17 04:45 02/01/17 09:57 Enoxaparin Sodium (Lovenox Inj) 40 mg Q24H SQ 01/31/17 06:00 02/09/17 06:25 Bethanechol Chloride (Urecholine) 25 mg Q8HR PO 01/31/17 06:00 02/09/17 06:25 Oxycodone/ Acetaminophen (Percocet 10-325 Mg) 1 tab Q4H PRN PO PAIN SCALE 5-10 01/31/17 04:45 02/09/17 03:02 Tamsulosin HCl (Flomax) 0.4 mg DAILY PO 01/31/17 09:00 02/09/17 10:25 Tiotropium [place] (Spiriva Inh) 18 mcg DAILY INH 01/31/17 09:00 02/09/17 10:25 Potassium Chloride (KCl) 20 meq TID PO 01/31/17 13:00 02/09/17 13:13 Albuterol/ Ipratropium (Duoneb Neb) 1 ampule QID NEB PRN NEB SOB/WHEEZING 01/31/17 12:00 02/01/17 18:51 Magnesium Oxide (Mag-Ox) 400 mg Q12HR PO 02/01/17 21:00 02/09/17 10:24 Ferrous Sulfate (Ferrous Sulfate Liq) 300 mg DAILY PO 02/05/17 09:00 02/09/17 10:25 Digoxin (Lanoxin) 0.125 mg DAILY PO 02/05/17 09:00 02/09/17 10:24 Prednisone (Deltasone) 5 mg DAILY PO 02/07/17 09:00 02/09/17 10:25 Furosemide (Lasix) 20 mg BID@,18 PO 02/08/17 09:00 02/09/17 10:24 Diltiazem HCl (Cardizem) 30 mg Q6HR PO 02/08/17 11:00 02/09/17 13:13 Objective Remarks GENERAL: Disheveled, chronically ill-appearing female sitting up in bed in no acute distress SKIN: Warm and dry. Multiple bruising to her extremities HEAD: Normocephalic. EYES: No injection or drainage. NECK: Supple, trachea midline. CARDIOVASCULAR: Significant 4/6 systolic murmur. Irregular rhythm RESPIRATORY: Clear anteriorly. Breathing unlabored at rest. GASTROINTESTINAL: Abdomen soft, non-tender, nondistended. EXTREMITIES: No cyanosis. Generalized edema bilateral lower extremities MUSCULOSKELETAL: Adequate muscle tone. NEUROLOGICAL: No obvious focal deficit. Awake, alert, and oriented x3. Assessment/Plan Problem List: (1) Aortic stenosis ICD Codes: I35.0 - Nonrheumatic aortic (valve) stenosis Status: Chronic Plan: -- Dr. Bustamante has declined TAVR for now -- Continue Lovenox until INR has been therapeutic for one to 2 days -- She appears to be not a candidate for TAVR due to multiple comorbidities. -- If she is considered not a candidate for surgery, Cardiology is recommending hospice. (2) pancytopenia, etiology undetermined, suspect MDS Plan: -- Patient likely has MDS . This is not biopsy proven. --Bone marrow biopsy ordered (3) new atrial fibrillation, RVR Assessment 56 year-old female with pancytopenia found to have severe aortic stenosis Plan 1. Patient finally agrees to bone marrow biopsy 2. Consult IR for biopsy in a.m. 3. Hold Coumadin until tomorrow. 4. Monitor CBC Discussed with Dr. Ray Attending Statement The exam, history, and the medical decision-making described in the above note were completed with the assistance of the mid-level provider. I reviewed and agree with the findings presented. I attest that I had a [id number] encounter with the patient on the same day, and personally performed and documented my assessment and findings in the medical record d/w rn o/n events reviewed Problem Qualifiers (1) Aortic stenosis: Qualified Codes: I35.0 - Nonrheumatic aortic (valve) stenosis Jo Grace Feb 09, 2017 14:28 Wicho Yun MD Feb 09, 2017 22:08
--- NOTE | 2017-02-09 15:33 | PD.CARD.PN ---
Subjective Subjective Remarks alert in nad Objective Medications Current Medications Medications (Trade) Dose Ordered Sig/Armin Route Start Time Stop Time Status Last Admin (NS Flush) 2 ml UNSCH PRN IV FLUSH 01/31/17 04:45 (NS Flush) 2 ml BID IV FLUSH 01/31/17 09:00 02/09/17 10:25 (Tylenol) 650 mg Q4H PRN PO 01/31/17 04:45 02/01/17 09:57 (Zofran Inj) 4 mg Q6H PRN IVP 01/31/17 04:45 (Lovenox Inj) 40 mg Q24H SQ 01/31/17 06:00 02/09/17 06:25 (Narcan Inj) 0.4 mg UNSCH PRN IV PUSH 01/31/17 04:45 (Milk Of Magnesia Liq) 30 ml Q12H PRN PO 01/31/17 04:45 (Senokot) 17.2 mg Q12H PRN PO 01/31/17 04:45 (Dulcolax Supp) 10 mg DAILY PRN RECTAL 01/31/17 04:45 (Lactulose Liq) 30 ml DAILY PRN PO 01/31/17 04:45 (Urecholine) 25 mg Q8HR PO 01/31/17 06:00 02/09/17 06:25 (Percocet 10-325 Mg) 1 tab Q4H PRN PO 01/31/17 04:45 02/09/17 03:02 (Flomax) 0.4 mg DAILY PO 01/31/17 09:00 02/09/17 10:25 (Spiriva Inh) 18 mcg DAILY INH 01/31/17 09:00 02/09/17 10:25 (KCl) 20 meq TID PO 01/31/17 13:00 02/09/17 13:13 (Duoneb Neb) 1 ampule QID NEB PRN NEB 01/31/17 12:00 02/01/17 18:51 (Mag-Ox) 400 mg Q12HR PO 02/01/17 21:00 02/09/17 10:24 (Ferrous Sulfate Liq) 300 mg DAILY PO 02/05/17 09:00 02/09/17 10:25 (Lanoxin) 0.125 mg DAILY PO 02/05/17 09:00 02/09/17 10:24 (Deltasone) 5 mg DAILY PO 02/07/17 09:00 02/09/17 10:25 (Lasix) 20 mg BID@09,18 PO 02/08/17 09:00 02/09/17 10:24 (Cardizem) 30 mg Q6HR PO 02/08/17 11:00 02/09/17 13:13 (Coumadin) 10 mg ONCE ONCE PO 02/09/17 16:00 02/09/17 16:01 UNV Vital Signs / I&O Vital Signs Date Time Temp Pulse Resp B/P (MAP) Pulse Ox O2 Delivery O2 Flow Rate FiO2 02/09/17 12:00 97.8 96 18 112/63 (79) 100 02/09/17 08:00 86 02/09/17 08:00 97.6 88 18 102/71 (81) 100 02/09/17 07:30 Nasal Cannula 2.00 02/09/17 05:43 97.3 104 16 103/69 (80) 100 02/09/17 04:00 103 02/09/17 04:00 Nasal Cannula 2.00 02/09/17 00:00 99 02/09/17 00:00 Nasal Cannula 3.00 02/08/17 23:22 97.5 102 18 110/59 (76) 100 02/08/17 20:39 108 02/08/17 20:00 Nasal Cannula 2.00 02/08/17 19:50 97.3 96 18 107/63 (78) 91 02/08/17 18:46 82 02/08/17 16:03 97.9 74 20 103/62 (76) 95 02/08/17 15:37 97.9 74 20 103/62 (76) 95 I/O 02/08/17 02/08/17 02/08/17 02/09/17 02/09/17 02/09/17 07:00 15:00 23:00 07:00 15:00 23:00 Intake Total 523 ml 203 ml 200 ml Output Total 850 ml 125 ml 0 ml 500 ml Balance -327 ml 78 ml 200 ml -500 ml Intake Oral 240 ml 120 ml 200 ml IV Total 283 ml 83 ml Output Urine Total 850 ml 125 ml 0 ml 500 ml Bladder Scan Volume Amount 165 ml 285 ml 285 ml 408 ml # Bowel Movements 0 0 0 Physical Exam GENERAL: SKIN: Warm and dry. HEAD: Normocephalic. EYES: No scleral icterus. No injection or drainage. NECK: Supple, trachea midline. No JVD or lymphadenopathy. CARDIOVASCULAR: Regular rate and rhythm without murmurs, gallops, or rubs. RESPIRATORY: Breath sounds equal bilaterally. No accessory muscle use. GASTROINTESTINAL: Abdomen soft, non-tender, nondistended. MUSCULOSKELETAL: No cyanosis, or edema. BACK: Nontender without obvious deformity. No CVA tenderness. Laboratory Laboratory Tests Test 02/09/17 08:36 Prothrombin Time 10.4 SEC Prothromb Time International Ratio 1.0 RATIO Blood Urea Nitrogen 12 MG/DL Creatinine 0.41 MG/DL Random Glucose 107 MG/DL Calcium Level 7.9 MG/DL Sodium Level 136 MEQ/L Potassium Level 4.5 MEQ/L Chloride Level 98 MEQ/L Carbon Dioxide Level 35.7 MEQ/L Anion Gap 2 MEQ/L Estimat Glomerular Filtration Rate 160 ML/MIN Magnesium Level 2.4 MG/DL Assessment and Plan Problem List: (1) Aortic stenosis ICD Codes: I35.0 - Nonrheumatic aortic (valve) stenosis Status: Chronic (2) COPD (chronic obstructive pulmonary disease) ICD Codes: J44.9 - Chronic obstructive pulmonary disease, unspecified Status: Chronic (3) Pleural effusion on left ICD Codes: J90 - Pleural effusion, not elsewhere classified Status: Acute (4) Pulmonary HTN ICD Codes: I27.20 - Pulmonary hypertension, unspecified (5) pancytopenia, etiology undetermined, suspect MDS (6) new atrial fibrillation, RVR (7) moderately severe COPD (8) congestive heart failure, persistent pleural effusions Assessment and Plan 1.) Severe - failing medical management, continue lasix as tolerated, f/u ct surg and palliative care consults, bnp, bmp in am; d/w Dr Recinos 02/05/17, patient probably not candidate for tavr due to multiple co morbidities, eval by Dr Bustamante, candidate for tavr, pending bm bx results and improvement in comorbidities, can go to rehab with outpatient f/u for tavr work up,. 2.) Afib - hematology rec lovenox bridge to coumadin, hold coumadin until after bm bx. d/w Dr Ray and patient Problem Qualifiers (1) Aortic stenosis: Qualified Codes: I35.0 - Nonrheumatic aortic (valve) stenosis Sd Kirk MD Feb 09, 2017 15:33
[2017-02-09] MEDS ORDERED: WARFARIN SOD 10 MG TAB PO ONE (16:00)
[2017-02-10] VITALS (10 sets, daily range): BP systolic 103–145; BP diastolic 54–68; PULSE 66–101; RESP 16–18; TEMP 97.3–98.2; O2SAT 95–100
[2017-02-10] MEDS: BETHANECHOL CHL 25 MG TAB PO SCH ×3 (05:26→22:11)
[2017-02-10] MEDS: oxyCODONE/ACETAMINOPHEN 10 MG/325 MG TAB PO PRN ×4 (05:26→20:45)
[2017-02-10] MEDS: DILTIAZEM HCL 30 MG TAB PO SCH ×4 (05:26→23:38)
[2017-02-10] MEDS: ENOXAPARIN SODIUM 40 MG/0.4 ML SYRINGE SQ SCH (05:27)
[2017-02-10 09:27] LABS: AUTOMATED NEUTROPHIL # 4.9 TH/MM3 (1.8-7.7); BASOPHIL % 0.1 % (0.0-2.0); EOSINOPHIL % 0.3 % (0.0-4.0); HEMATOCRIT 24.9 % (35.0-46.0); HEMO FLAGS DIFF FINAL; LYMPH % 13.8 % (9.0-44.0); LYMPHOCYTE # 0.9 TH/MM3 (1.0-4.8); MEAN CELL VOLUME 105.1 FL (80.0-100.0); MEAN CORPUSCULAR HEMOGLOBIN 35.3 PG (27.0-34.0); MEAN CORPUSCULAR HGB CONC 33.6 % (32.0-36.0); MONO % 11.2 % (0.0-8.0); NEUT % 74.6 % (16.0-70.0); PLATELET COUNT 107 TH/MM3 (150-450); RED BLOOD COUNT 2.37 MIL/MM3 (4.00-5.30); RED CELL DISTRIBUTION WIDTH 21.6 % (11.6-17.2); WHITE BLOOD COUNT 6.6 TH/MM3 (4.0-11.0)
[2017-02-10] MEDS: FERROUS SULFATE 300 MG /5ML UDC PO SCH (09:31)
[2017-02-10] MEDS: POTASSIUM CHLORIDE 10 MEQ CAP PO SCH ×3 (09:31→18:34)
[2017-02-10] MEDS: TAMSULOSIN HCL 0.4 MG CAP PO SCH (09:32)
[2017-02-10] MEDS: FUROSEMIDE 20 MG TAB PO SCH ×2 (09:32→18:34)
[2017-02-10] MEDS: MAGNESIUM OXIDE 400 MG TAB PO SCH ×2 (09:32→20:44)
[2017-02-10] MEDS: DIGOXIN 0.125 MG TAB PO SCH (09:32)
[2017-02-10] MEDS: predniSONE 5 MG TAB PO SCH (09:32)
[2017-02-10] MEDS: SODIUM CHLORIDE 0.9% FLUSH 10 ML FLUSH IV FLUSH SCH ×2 (09:33→20:46)
[2017-02-10] MEDS: TIOTROPIUM BROMIDE 18 MCG INH INH SCH (09:33)
--- NOTE | 2017-02-10 09:43 | PD.CARD.PN ---
Subjective Subjective Remarks alert in nad Objective Medications Current Medications Medications (Trade) Dose Ordered Sig/Armin Route Start Time Stop Time Status Last Admin (NS Flush) 2 ml UNSCH PRN IV FLUSH 01/31/17 04:45 (NS Flush) 2 ml BID IV FLUSH 01/31/17 09:00 02/10/17 09:33 (Tylenol) 650 mg Q4H PRN PO 01/31/17 04:45 02/01/17 09:57 (Zofran Inj) 4 mg Q6H PRN IVP 01/31/17 04:45 (Lovenox Inj) 40 mg Q24H SQ 01/31/17 06:00 02/10/17 05:27 (Narcan Inj) 0.4 mg UNSCH PRN IV PUSH 01/31/17 04:45 (Milk Of Magnesia Liq) 30 ml Q12H PRN PO 01/31/17 04:45 (Senokot) 17.2 mg Q12H PRN PO 01/31/17 04:45 (Dulcolax Supp) 10 mg DAILY PRN RECTAL 01/31/17 04:45 (Lactulose Liq) 30 ml DAILY PRN PO 01/31/17 04:45 (Urecholine) 25 mg Q8HR PO 01/31/17 06:00 02/10/17 05:26 (Percocet 10-325 Mg) 1 tab Q4H PRN PO 01/31/17 04:45 02/10/17 09:33 (Flomax) 0.4 mg DAILY PO 01/31/17 09:00 02/10/17 09:32 (Spiriva Inh) 18 mcg DAILY INH 01/31/17 09:00 02/10/17 09:33 (KCl) 20 meq TID PO 01/31/17 13:00 02/10/17 09:31 (Duoneb Neb) 1 ampule QID NEB PRN NEB 01/31/17 12:00 02/01/17 18:51 (Mag-Ox) 400 mg Q12HR PO 02/01/17 21:00 02/10/17 09:32 (Ferrous Sulfate Liq) 300 mg DAILY PO 02/05/17 09:00 02/10/17 09:31 (Lanoxin) 0.125 mg DAILY PO 02/05/17 09:00 02/10/17 09:32 (Deltasone) 5 mg DAILY PO 02/07/17 09:00 02/10/17 09:32 (Lasix) 20 mg BID@09,18 PO 02/08/17 09:00 02/10/17 09:32 (Cardizem) 30 mg Q6HR PO 02/08/17 11:00 02/10/17 05:26 Vital Signs / I&O Vital Signs Date Time Temp Pulse Resp B/P (MAP) Pulse Ox O2 Delivery O2 Flow Rate FiO2 02/10/17 07:30 Nasal Cannula 2.00 02/10/17 05:38 97.4 84 18 103/68 (80) 100 02/10/17 04:18 90 02/10/17 04:00 Nasal Cannula 2.00 02/10/17 00:00 Nasal Cannula 2.00 02/09/17 23:56 72 02/09/17 23:28 97.9 83 20 100/57 (71) 100 02/09/17 20:14 89 02/09/17 20:00 Nasal Cannula 2.00 02/09/17 19:36 97.8 96 18 106/62 (77) 100 02/09/17 18:00 82 111/70 (84) 02/09/17 16:00 98.1 85 18 92/59 (70) 100 02/09/17 15:00 109 02/09/17 12:00 103 02/09/17 12:00 97.8 96 18 112/63 (79) 100 I/O 02/09/17 02/09/17 02/09/17 02/10/17 02/10/17 02/10/17 07:00 15:00 23:00 07:00 15:00 23:00 Intake Total 200 ml 480 ml 240 ml Output Total 0 ml 500 ml Balance 200 ml -500 ml 480 ml 240 ml Intake Oral 200 ml 480 ml 240 ml Output Urine Total 0 ml 500 ml Bladder Scan Volume Amount 285 ml 285 ml 172 ml 408 ml # Voids 2 1 # Bowel Movements 0 1 0 Physical Exam GENERAL: SKIN: Warm and dry. HEAD: Normocephalic. EYES: No scleral icterus. No injection or drainage. NECK: Supple, trachea midline. No JVD or lymphadenopathy. CARDIOVASCULAR: Regular rate and rhythm without murmurs, gallops, or rubs. RESPIRATORY: Breath sounds equal bilaterally. No accessory muscle use. GASTROINTESTINAL: Abdomen soft, non-tender, nondistended. MUSCULOSKELETAL: No cyanosis, or edema. BACK: Nontender without obvious deformity. No CVA tenderness. Laboratory Laboratory Tests Test 02/10/17 08:25 White Blood Count 6.6 TH/MM3 Red Blood Count 2.37 MIL/MM3 Hemoglobin 8.4 GM/DL Hematocrit 24.9 % Mean Corpuscular Volume 105.1 FL Mean Corpuscular Hemoglobin 35.3 PG Mean Corpuscular Hemoglobin Concent 33.6 % Red Cell Distribution Width 21.6 % Platelet Count 107 TH/MM3 Mean Platelet Volume 9.4 FL Neutrophils (%) (Auto) 74.6 % Lymphocytes (%) (Auto) 13.8 % Monocytes (%) (Auto) 11.2 % Eosinophils (%) (Auto) 0.3 % Basophils (%) (Auto) 0.1 % Neutrophils # (Auto) 4.9 TH/MM3 Lymphocytes # (Auto) 0.9 TH/MM3 Monocytes # (Auto) 0.7 TH/MM3 Eosinophils # (Auto) 0.0 TH/MM3 Basophils # (Auto) 0.0 TH/MM3 CBC Comment DIFF FINAL Differential Comment Assessment and Plan Problem List: (1) Aortic stenosis ICD Codes: I35.0 - Nonrheumatic aortic (valve) stenosis Status: Chronic (2) COPD (chronic obstructive pulmonary disease) ICD Codes: J44.9 - Chronic obstructive pulmonary disease, unspecified Status: Chronic (3) Pleural effusion on left ICD Codes: J90 - Pleural effusion, not elsewhere classified Status: Acute (4) Pulmonary HTN ICD Codes: I27.20 - Pulmonary hypertension, unspecified (5) pancytopenia, etiology undetermined, suspect MDS (6) new atrial fibrillation, RVR (7) moderately severe COPD (8) congestive heart failure, persistent pleural effusions Assessment and Plan 1.) Severe - failing medical management, continue lasix as tolerated, f/u ct surg and palliative care consults, bnp, bmp in am; d/w Dr Recinos 02/05/17, patient probably not candidate for tavr due to multiple co morbidities, eval by Dr Bustamante, candidate for tavr, pending bm bx results and improvement in comorbidities, can go to rehab with outpatient f/u for tavr work up,.patient appears motivated to have tavr 2.) Afib - hematology rec lovenox bridge to coumadin, hold coumadin until after bm bx. d/w Dr Ray and patient Problem Qualifiers (1) Aortic stenosis: Qualified Codes: I35.0 - Nonrheumatic aortic (valve) stenosis Sd Kirk MD Feb 10, 2017 09:43
--- NOTE | 2017-02-10 09:54 | HHI.PR ---
Subjective Remarks no complains looking forward to BM biopsy got Jessicanox last night will check if BM can be done this pm patient motivated with more therapy Objective Vitals Vital Signs Date Time Temp Pulse Resp B/P (MAP) Pulse Ox O2 Delivery O2 Flow Rate FiO2 02/10/17 07:30 Nasal Cannula 2.00 02/10/17 05:38 97.4 84 18 103/68 (80) 100 02/10/17 04:18 90 02/10/17 04:00 Nasal Cannula 2.00 02/10/17 00:00 Nasal Cannula 2.00 02/09/17 23:56 72 02/09/17 23:28 97.9 83 20 100/57 (71) 100 02/09/17 20:14 89 02/09/17 20:00 Nasal Cannula 2.00 02/09/17 19:36 97.8 96 18 106/62 (77) 100 02/09/17 18:00 82 111/70 (84) 02/09/17 16:00 98.1 85 18 92/59 (70) 100 02/09/17 15:00 109 02/09/17 12:00 103 02/09/17 12:00 97.8 96 18 112/63 (79) 100 I/O 02/09/17 02/09/17 02/09/17 02/10/17 02/10/17 02/10/17 07:00 15:00 23:00 07:00 15:00 23:00 Intake Total 200 ml 480 ml 240 ml Output Total 0 ml 500 ml Balance 200 ml -500 ml 480 ml 240 ml Intake Oral 200 ml 480 ml 240 ml Output Urine Total 0 ml 500 ml Bladder Scan Volume Amount 285 ml 285 ml 172 ml 408 ml # Voids 2 1 # Bowel Movements 0 1 0 Result Diagram: 02/10/17 0825 02/09/17 0836 Imaging Last Impressions Chest X-Ray 02/03/17 0600 Signed Impressions: Service Date/Time: Friday, February 03, 2017 06:17 - CONCLUSION: Stable exam. Alda Alberts MD Head CT 02/03/17 0000 Signed Impressions: Service Date/Time: Friday, February 03, 2017 16:25 - CONCLUSION: Periventricular white matter changes otherwise negative. Raf Lindsay MD FACR Objective Remarks awake and alert, no acute distress, anicteric no JVD lungs no rales or wheezes irregular rhythm- 80- 90ss, soft 2/6 systolic murmur left sternal border abdomen soft, nontender extremities- edema much improved, no calf tenderness neuro exam unremarkable Date of Removal: Feb 08, 2017 A/P Problem List: (1) UTI (urinary tract infection) ICD Code: N39.0 - Urinary tract infection, site not specified Status: Acute Assessment and Plan This is a 56-year-old female who presents to the emergency department complaining of worsening bilateral lower extremity swelling since she was discharged from [facility] after being treated for left pleural effusion status post thoracotomy. She has history of chronic bilateral lower extremity lymphedema and admits noncompliance to medications and salt restriction. Bilateral lower extremity lymphedema secondary to noncompliance. - Improved Discussed with pulmonary, he doesn't think it's cor pulmonale. Recent echocardiogram shows and pulmonary hypertension. Patient with severe aortic stenosis failed medical management. seen by CTS and TAVR team - not candidate for TAVR clinically improving- leg swelling improved- Lasix 20 mg po bid Severe Sepsis secondary to UTI with Enterobacter cloacae multidrug resistant S/P course of imipenem 02/08 Hypotension. - resolved Poss 2/2 sepsis.- Afib - rate improvedwhich is multifactorial including conditions mentioned above , pain, electrolyte abnormalities and meds. Severe Aortic stenosis Continue digoxin . BP improved Cardiology ff po Cardizem 30 mg po q 6 . digoxin 0,125 mg po daily Patient with severe aortic stenosis with medical management failed care. Patient wants aggressive management at this time. Recent echo on 12/20 with normal EF. Will monitor on telemetry. TSH nl start OAC- after BM biopsy Thrombocytopenia/Pancytopenia Hematology ff- plan for BM biopsy - hopefully can be done today Coumadin and Lovenox held Acute encephalopathy secondary to sepsis, afib, multiple comorbidities. Improved. CT head reviewed and no acute findings. COPD, chronic respiratory failure and left pleural effusion status post thoracotomy. Continue nebulizations, oxygen and taper steroids. Pulm ff Hypokalemia. Currently on potassium 20 mg 3 times a day supplementation. Improved Deconditioning. Physical therapy evaluation Wound care DVT prophylaxis on Lovenox . start coumadin overlap CM- DC planning- self pay but needs rehab for deconditioning- will need comprehensive rehab patient wants and willing to go rehab to get stronger- prefers [facility]- will consult [facility] " [facility]" and actually patient states she was given some finances for rehab specifically and willing to shoulder some cost for [facility] rehab if needs to [facility] made aware Problem Qualifiers (1) UTI (urinary tract infection): Qualified Codes: N30.00 - Acute cystitis without hematuria Addison Ray MD Feb 10, 2017 09:54
--- NOTE | 2017-02-10 11:25 | PD.ONC.PN ---
Subjective Subjective Remarks Afebrile overnight. Patient resting in bed in nad. No complaints. Ready to go down for bone marrow biopsy. Nervous that it will be painful. Objective Data Date Time Temp Pulse Resp B/P (MAP) Pulse Ox O2 Delivery O2 Flow Rate FiO2 02/10/17 08:02 98.0 68 16 132/68 (89) 95 02/10/17 08:00 75 02/10/17 07:30 Nasal Cannula 2.00 02/10/17 05:38 97.4 84 18 103/68 (80) 100 02/10/17 04:18 90 02/10/17 04:00 Nasal Cannula 2.00 02/10/17 00:00 Nasal Cannula 2.00 02/09/17 23:56 72 02/09/17 23:28 97.9 83 20 100/57 (71) 100 02/09/17 20:14 89 02/09/17 20:00 Nasal Cannula 2.00 02/09/17 19:36 97.8 96 18 106/62 (77) 100 02/09/17 18:00 82 111/70 (84) 02/09/17 16:00 98.1 85 18 92/59 (70) 100 02/09/17 15:00 109 02/09/17 12:00 103 02/09/17 12:00 97.8 96 18 112/63 (79) 100 02/10/17 02/10/17 02/10/17 07:00 15:00 23:00 Intake Total 240 ml Balance 240 ml Result Diagram: 02/10/17 0825 02/09/17 0836 Laboratory Results Laboratory Tests Test 02/10/17 08:25 White Blood Count 6.6 TH/MM3 Red Blood Count 2.37 MIL/MM3 Hemoglobin 8.4 GM/DL Hematocrit 24.9 % Mean Corpuscular Volume 105.1 FL Mean Corpuscular Hemoglobin 35.3 PG Mean Corpuscular Hemoglobin Concent 33.6 % Red Cell Distribution Width 21.6 % Platelet Count 107 TH/MM3 Mean Platelet Volume 9.4 FL Neutrophils (%) (Auto) 74.6 % Lymphocytes (%) (Auto) 13.8 % Monocytes (%) (Auto) 11.2 % Eosinophils (%) (Auto) 0.3 % Basophils (%) (Auto) 0.1 % Neutrophils # (Auto) 4.9 TH/MM3 Lymphocytes # (Auto) 0.9 TH/MM3 Monocytes # (Auto) 0.7 TH/MM3 Eosinophils # (Auto) 0.0 TH/MM3 Basophils # (Auto) 0.0 TH/MM3 CBC Comment DIFF FINAL Differential Comment Administered Medications Medications (Trade) Dose Ordered Sig/Armin Route PRN Reason Start Time Stop Time Status Last Admin Dose Admin Sodium Chloride (NS Flush) 2 ml BID IV FLUSH 01/31/17 09:00 02/10/17 09:33 Acetaminophen (Tylenol) 650 mg Q4H PRN PO TEMP > 100.4 01/31/17 04:45 02/01/17 09:57 Enoxaparin Sodium (Lovenox Inj) 40 mg Q24H SQ 01/31/17 06:00 Future Hold 02/10/17 05:27 Bethanechol Chloride (Urecholine) 25 mg Q8HR PO 01/31/17 06:00 02/10/17 05:26 Oxycodone/ Acetaminophen (Percocet 10-325 Mg) 1 tab Q4H PRN PO PAIN SCALE 5-10 01/31/17 04:45 02/10/17 09:33 Tamsulosin HCl (Flomax) 0.4 mg DAILY PO 01/31/17 09:00 02/10/17 09:32 Tiotropium [place] (Spiriva Inh) 18 mcg DAILY INH 01/31/17 09:00 02/10/17 09:33 Potassium Chloride (KCl) 20 meq TID PO 01/31/17 13:00 02/10/17 09:31 Albuterol/ Ipratropium (Duoneb Neb) 1 ampule QID NEB PRN NEB SOB/WHEEZING 01/31/17 12:00 02/01/17 18:51 Magnesium Oxide (Mag-Ox) 400 mg Q12HR PO 02/01/17 21:00 02/10/17 09:32 Ferrous Sulfate (Ferrous Sulfate Liq) 300 mg DAILY PO 02/05/17 09:00 02/10/17 09:31 Digoxin (Lanoxin) 0.125 mg DAILY PO 02/05/17 09:00 02/10/17 09:32 Prednisone (Deltasone) 5 mg DAILY PO 02/07/17 09:00 02/10/17 09:32 Furosemide (Lasix) 20 mg BID@,18 PO 02/08/17 09:00 02/10/17 09:32 Diltiazem HCl (Cardizem) 30 mg Q6HR PO 02/08/17 11:00 02/10/17 05:26 Objective Remarks GENERAL: Middle aged female sitting up in bed SKIN: Warm and dry. multiple ecchymotic lesions on extremities. HEAD: Normocephalic. EYES: No injection or drainage. NECK: Supple, trachea midline. CARDIOVASCULAR: +S1/S2 RESPIRATORY: Breath sounds equal bilaterally. No accessory muscle use. GASTROINTESTINAL: Abdomen soft, non-tender, nondistended. EXTREMITIES: No cyanosis NEUROLOGICAL: awake and alert, normal speech. Assessment/Plan Problem List: (1) Aortic stenosis ICD Codes: I35.0 - Nonrheumatic aortic (valve) stenosis Status: Chronic Plan: -- Dr. Bustamante has declined TAVR for now -- Continue Lovenox until INR has been therapeutic for one to 2 days (lovenox and coumadin on hold for procedure today 02/10) -- She appears to be not a candidate for TAVR due to multiple comorbidities. -- If she is considered not a candidate for surgery, Cardiology is recommending hospice. (2) pancytopenia, etiology undetermined, suspect MDS Plan: -- Patient likely has MDS . This is not biopsy proven. --Bone marrow biopsy planned for 02/10 (3) new atrial fibrillation, RVR Assessment 56 year-old female with pancytopenia found to have severe aortic stenosis Plan 1. resume coumadin/Lovenox today after bone marrow biopsy 2. bone marrow biopsy today 3. monitor CBC Attending Statement The exam, history, and the medical decision-making described in the above note were completed with the assistance of the mid-level provider. I reviewed and agree with the findings presented. I attest that I had a [id number] encounter with the patient on the same day, and personally performed and documented my assessment and findings in the medical record d/w rn o/n events reviewed Problem Qualifiers (1) Aortic stenosis: Qualified Codes: I35.0 - Nonrheumatic aortic (valve) stenosis Naida Quinn Feb 10, 2017 11:25 Wicho Yun MD Feb 10, 2017 21:46
--- NOTE | 2017-02-10 14:30 | HHI.HCPN ---
Reason for visit a. To assist with evaluation and management of symptoms including: Dyspnea , weakness b. To assist medical decision maker(s) with: better understanding of current medical conditions; weighing benefits/burdens of medical treatment options; making medical treatment decisions. . Subjective/Interval History Follow up vist for symptom management and clarification of medical treatment goals: Patient seen and assessed in room 1403. Patient is alert and oriented to person , place and time. She reports feeling better than she did earlier in the week. She denies shortness of breath and/or pain on exam. Oxygen saturations at 100 % on 2 L via nasal cannula. WBC: 6.6, hemoglobin 8.4, hematocrit 24.9, platelets 107, neutrophils 74.6% She was evaluated by cardiothoracic surgery and TAVR team and is not a candidate for TAVR due to her deconditioned status and multiple comorbid conditions. Patient endorses significant fatigue and weakness. She verbalizes that she understands why she is not a candidate for aggressive interventions at this time and clearly states that her goals remain aggressive, and she is willing to do whatever is necessary to become stronger. Patient wants to go to rehabilitation, preferably [facility], and plans to pay privately if necessary. Patient has agreed for bone marrow biopsy secondary to pancytopenia, suspected MDS. She has been NPO since breakfast; procedure is planned for later today. . Family/friend interactions No family present at the time of exam. . Advance Directives Living Will: Completed, but not made available Health Care Surrogate: Never completed Durable Power of Laundrette Owner: Never completed Objective Vital Signs Date Time Temp Pulse Resp B/P (MAP) Pulse Ox O2 Delivery O2 Flow Rate FiO2 02/10/17 08:02 98.0 68 16 132/68 (89) 95 02/10/17 08:00 75 02/10/17 07:30 Nasal Cannula 2.00 02/10/17 05:38 97.4 84 18 103/68 (80) 100 02/10/17 04:18 90 02/10/17 04:00 Nasal Cannula 2.00 02/10/17 00:00 Nasal Cannula 2.00 02/09/17 23:56 72 02/09/17 23:28 97.9 83 20 100/57 (71) 100 02/09/17 20:14 89 02/09/17 20:00 Nasal Cannula 2.00 02/09/17 19:36 97.8 96 18 106/62 (77) 100 02/09/17 18:00 82 111/70 (84) 02/09/17 16:00 98.1 85 18 92/59 (70) 100 02/09/17 15:00 109 Intake & Output 02/10/17 02/10/17 07:00 19:00 Intake Total 240 ml Balance 240 ml Intake Oral 240 ml Bladder Scan Volume Amount 172 ml # Voids 1 # Bowel Movements 0 . Physical Exam CONSTITUTIONAL/GENERAL: This is a chronically ill, female patient in no acute distress. TUBES/LINES/DRAINS: Nasal oxygen, peripheral IVs NECK: Trachea midline. Supple, nontender. No palpable thyroid enlargement or nodularity. CARDIOVASCULAR: Irregular rhythm without murmurs, gallops, or rubs. No JVD. Peripheral pulses diminished. RESPIRATORY/CHEST: Symmetric, but mildly labored respirations. Markedly diminished breath sounds bilateral. No accessory muscles used. GASTROINTESTINAL: Abdomen soft, non-tender, nondistended. Bowel sounds present. MUSCULOSKELETAL: Extremities without clubbing or cyanosis, decreasing edema. No mottling or clubbing. LYMPHATICS: No palpable cervical or supraclavicular adenopathy. NEUROLOGICAL: Alert and awake. Cognitively sharp. Answering questions, able to make needs known. PSYCHIATRIC: No obvious anxiety/depression. no apparent hallucinations or other psychotic thought process. . Diagnostic Tests Laboratory Laboratory Tests Test 02/09/17 08:36 02/10/17 08:25 Prothrombin Time 10.4 SEC (9.8-11.6) Prothromb Time International Ratio 1.0 RATIO Blood Urea Nitrogen 12 MG/DL (7-18) Creatinine 0.41 MG/DL (0.50-1.00) Random Glucose 107 MG/DL (74-106) Calcium Level 7.9 MG/DL (8.5-10.1) Sodium Level 136 MEQ/L (136-145) Potassium Level 4.5 MEQ/L (3.5-5.1) Chloride Level 98 MEQ/L (98-107) Carbon Dioxide Level 35.7 MEQ/L (21.0-32.0) Anion Gap 2 MEQ/L (5-15) Estimat Glomerular Filtration Rate 160 ML/MIN (>89) Magnesium Level 2.4 MG/DL (1.5-2.5) White Blood Count 6.6 TH/MM3 (4.0-11.0) Red Blood Count 2.37 MIL/MM3 (4.00-5.30) Hemoglobin 8.4 GM/DL (11.6-15.3) Hematocrit 24.9 % (35.0-46.0) Mean Corpuscular Volume 105.1 FL (80.0-100.0) Mean Corpuscular Hemoglobin 35.3 PG (27.0-34.0) Mean Corpuscular Hemoglobin Concent 33.6 % (32.0-36.0) Red Cell Distribution Width 21.6 % (11.6-17.2) Platelet Count 107 TH/MM3 (150-450) Mean Platelet Volume 9.4 FL (7.0-11.0) Neutrophils (%) (Auto) 74.6 % (16.0-70.0) Lymphocytes (%) (Auto) 13.8 % (9.0-44.0) Monocytes (%) (Auto) 11.2 % (0.0-8.0) Eosinophils (%) (Auto) 0.3 % (0.0-4.0) Basophils (%) (Auto) 0.1 % (0.0-2.0) Neutrophils # (Auto) 4.9 TH/MM3 (1.8-7.7) Lymphocytes # (Auto) 0.9 TH/MM3 (1.0-4.8) Monocytes # (Auto) 0.7 TH/MM3 (0-0.9) Eosinophils # (Auto) 0.0 TH/MM3 (0-0.4) Basophils # (Auto) 0.0 TH/MM3 (0-0.2) CBC Comment DIFF FINAL Differential Comment . 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 Spiritual: The patient says she is spiritual and her own way, but is not affiliated with any congregational or clergy, and does not want hand packer/packager visits. Legal: The patient has capacity for decision-making, and her Feliberto will be the proxy decision-maker when she loses that capacity. Ethical issues impacting care: None . Important Contacts : Feliberto Steven [phone] . 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 With her profound debility and weakness, her overall prognosis is pretty poor. . Code Status: Full Code Plan * FULL CODE; she would accept treatment with life support "for a while but not for a long time since that wouldn't really be on life." At this time, she does want to continue aggressive care at this time including mechanical ventilation and resuscitation; however, she makes it clear that if she is on a ventilator for some period of time and is not going to get better, she would want to have it withdrawn and be allowed to peacefully. * DECISION-MAKING: The patient has capacity for decision-making, and her Feliberto will be the proxy decision-maker when she loses that capacity. * GOALS: Aggressive. Patient is planning to go to rehab upon discharge with the hope that she can become strong enough for aggressive interventions. * SYMPTOMS- dyspnea: Patient denies dyspnea on exam. Oxygen saturation 100% on 2L via NC. Follow-up chest x-ray on 02/03/2017 was stable. * SYMPTOMS-weakness: Patient endorse weakness and fatigue. She stated, "I thought this was going to be a lot easier than it is". Further states, "I haven' t walked in over 4 months". Patient verbalizing understanding of her limitations , but plans to do everything she can to try to become stronger. She is agreeable to rehabilitation, preferably [facility], even if she is private pay. * Palliative Care will continue to follow the patient during this hospitalization. . Attestation To help prompt me to consider important information that might be impacting today's encounter and assessment, information from prior notes written by myself or my colleagues may have been "brought forward" into today's note. My signature on this note, however, is an attestation that I personally performed the exam, history, and/or decision-making noted today, and, unless otherwise indicated, the interactions with patient, family, and staff as well as the review of records all occurred today. I also attest that the listed assessment and stated plan reflect my best clinical judgment today based on the combination of historical information, prior notes, and today's exam/ interactions. When time spent is documented, it refers only to time spent today by the signer, or if indicated, combined time spent today by collaborating physician/nurse practitioner. . Vidya Donnelly Feb 10, 2017 14:30
--- NOTE | 2017-02-10 19:17 | HHI.PR ---
Subjective Remarks Alert and seems comfortable. Will have BM biopsy On o2 2 L. Leg edema is less. On Lovenox Able to move better. Objective Vital Signs Date Time Temp Pulse Resp B/P (MAP) Pulse Ox O2 Delivery O2 Flow Rate FiO2 02/10/17 16:02 98.2 99 16 110/60 (77) 96 02/10/17 12:03 98.1 66 16 130/66 (87) 96 02/10/17 12:00 95 02/10/17 08:02 98.0 68 16 132/68 (89) 95 02/10/17 08:00 75 02/10/17 07:30 Nasal Cannula 2.00 02/10/17 05:38 97.4 84 18 103/68 (80) 100 02/10/17 04:18 90 02/10/17 04:00 Nasal Cannula 2.00 02/10/17 00:00 Nasal Cannula 2.00 02/09/17 23:56 72 02/09/17 23:28 97.9 83 20 100/57 (71) 100 02/09/17 20:14 89 02/09/17 20:00 Nasal Cannula 2.00 02/09/17 19:36 97.8 96 18 106/62 (77) 100 I/O 02/09/17 02/09/17 02/09/17 02/10/17 02/10/17 02/10/17 07:00 15:00 23:00 07:00 15:00 23:00 Intake Total 200 ml 480 ml 240 ml 420 ml Output Total 0 ml 500 ml Balance 200 ml -500 ml 480 ml 240 ml 420 ml Intake Oral 200 ml 480 ml 240 ml 420 ml Output Urine Total 0 ml 500 ml Bladder Scan Volume Amount 285 ml 285 ml 172 ml 408 ml # Voids 2 1 1 5 # Bowel Movements 0 1 0 0 Result Diagram: 02/10/17 0825 02/09/17 0836 Objective Remarks GENERAL: This is an averagely built middle-aged white female who is pale and not dyspneic at rest. HEENT: Head normocephalic. Pupils are reactive and equal. Tongue moist. Throat is clear. NECK: No bruits. No venous distension. Trachea midline. No thyroid enlargement. CHEST: diminished movements of the left chest. Breath sounds diminished over the left mid and lower chest Occ Crackles at bases. CARDIAC: Heart sounds are regular S1-S2 with a systolic ejection murmur 3/6 at the left sternal border. ABDOMEN: Soft, protuberant without masses. No organomegaly. EXTREMITIES: 3+ edema. Decreased pulses. No calf tenderness. NEUROLOGIC: Reflexes 1+. The patient does move all extremities well with no gross motor deficits. SKIN: No lesions noted.1 + edema of legs Assessment and Plan Assessment and Plan IMPRESSION 1. Chronic bilateral leg edema (lymphedema). 2. Sepsis with UTI 3. COPD and chronic bronchitis 4. Severe deconditioning. 5. Status post VAT thoracotomy left chest with decortication of chronic loculated effusion 6. Atelectasis left lower lung. 7. Possible CHF. Plan : 1. Continue daily Diuretic 2. O2 at 2 L. 3. Nebs BID , duoneb.PRN 4. Bone marrow biopsy soon. 5. continue IS q2 h. 6. D/C Prednisone 7. Rehab Placement Venessa Chung MD Feb 10, 2017 19:17
--- NOTE | 2017-02-10 22:05 | RADRPT ---
EXAM DATE/TIME: 02/10/2017 21:12 [facility] COMPARISON: No previous studies available for comparison. INDICATIONS : Shortness of breath- Evaluate for pleural effusion. MEDICAL HISTORY : UTI, lung mass, aneurysm SURGICAL HISTORY : Thoracotomy ENCOUNTER: Subsequent ACUITY: 3 days PAIN SCORE: 5/10 LOCATION: Bilateral chest FINDINGS: There is a moderate to large left pleural effusion and a small right pleural effusion. The heart is m ildly prominent. Bibasilar atelectasis and/or infiltrates are noted. Degenerative changes and scolios is of the thoracic spine are noted. CONCLUSION: 1. Moderate to large left pleural effusion and small right pleural effusion. 2. Bibasilar atelectasis and/or infiltrates. 3. Mild cardiomegaly. 4. Degenerative changes and scoliosis of the thoracic spine. Chad Mcmillan MD on February 10, 2017 at 22:02 Board Certified Radiologist. This report was verified electronically.
[2017-02-11] VITALS (9 sets, daily range): BP systolic 105–131; BP diastolic 59–81; PULSE 66–123; RESP 16–19; TEMP 97.3–98.9; O2SAT 92–100
[2017-02-11] MEDS: BETHANECHOL CHL 25 MG TAB PO SCH ×3 (05:51→22:37)
[2017-02-11] MEDS: DILTIAZEM HCL 30 MG TAB PO SCH ×4 (05:51→23:22)
[2017-02-11] MEDS: oxyCODONE/ACETAMINOPHEN 10 MG/325 MG TAB PO PRN ×5 (05:56→22:38)
[2017-02-11] MEDS: MAGNESIUM OXIDE 400 MG TAB PO SCH ×2 (08:55→20:46)
[2017-02-11] MEDS: FUROSEMIDE 20 MG TAB PO SCH ×2 (08:55→18:30)
[2017-02-11] MEDS: predniSONE 5 MG TAB PO SCH (08:55)
[2017-02-11] MEDS: FERROUS SULFATE 300 MG /5ML UDC PO SCH (08:55)
[2017-02-11] MEDS: TAMSULOSIN HCL 0.4 MG CAP PO SCH (08:55)
[2017-02-11] MEDS: DIGOXIN 0.125 MG TAB PO SCH (08:55)
[2017-02-11] MEDS: POTASSIUM CHLORIDE 10 MEQ CAP PO SCH ×3 (08:56→18:29)
--- NOTE | 2017-02-11 09:20 | HHI.PR ---
Subjective Remarks awake and alert, very interactive no complains of pain nausea or vomiting good BM Objective Vitals Vital Signs Date Time Temp Pulse Resp B/P (MAP) Pulse Ox O2 Delivery O2 Flow Rate FiO2 02/11/17 07:23 19 02/11/17 05:25 97.9 98 16 131/81 (98) 100 02/11/17 04:00 96 02/11/17 00:31 93 02/11/17 00:03 98.1 90 16 105/66 (79) 92 02/10/17 20:50 Nasal Cannula 2.00 02/10/17 19:52 92 02/10/17 19:32 97.3 101 16 145/54 (84) 100 02/10/17 16:02 98.2 99 16 110/60 (77) 96 02/10/17 16:00 73 02/10/17 12:03 98.1 66 16 130/66 (87) 96 02/10/17 12:00 95 I/O 02/10/17 02/10/17 02/10/17 02/11/17 02/11/17 02/11/17 07:00 15:00 23:00 07:00 15:00 23:00 Intake Total 240 ml 420 ml 240 ml Balance 240 ml 420 ml 240 ml Intake Oral 240 ml 420 ml 240 ml # Voids 1 1 5 3 # Bowel Movements 0 0 0 Result Diagram: 02/10/17 0825 02/09/17 0836 Imaging Last Impressions Chest X-Ray 02/10/17 0000 Signed Impressions: Service Date/Time: Friday, February 10, 2017 21:12 - CONCLUSION: 1. Moderate to large left pleural effusion and small right pleural effusion. 2. Bibasilar atelectasis and/or infiltrates. 3. Mild cardiomegaly. 4. Degenerative changes and scoliosis of the thoracic spine. Chad Mcmillan MD Head CT 02/03/17 0000 Signed Impressions: Service Date/Time: Friday, February 03, 2017 16:25 - CONCLUSION: Periventricular white matter changes otherwise negative. Raf Lindsay MD FACR Objective Remarks awake and alert, no acute distress, anicteric no JVD lungs decreased breath sounds irregular rhythm- 80- 90ss, soft 2/6 systolic murmur left sternal border abdomen soft, nontender extremities- edema just trace no calf tenderness neuro exam unremarkable Date of Removal: Feb 08, 2017 A/P Problem List: (1) UTI (urinary tract infection) ICD Code: N39.0 - Urinary tract infection, site not specified Status: Acute Assessment and Plan This is a 56-year-old female who presents to the emergency department complaining of worsening bilateral lower extremity swelling since she was discharged from [facility] after being treated for left pleural effusion status post thoracotomy. She has history of chronic bilateral lower extremity lymphedema and admits noncompliance to medications and salt restriction. Bilateral lower extremity lymphedema secondary to noncompliance. Improved Discussed with pulmonary, he doesn't think it's cor pulmonale. Recent echocardiogram shows and pulmonary hypertension. Patient with severe aortic stenosis failed medical management. seen by CTS and TAVR team - not candidate for TAVR clinically improving- leg swelling- almost resolved Lasix 20 mg po bid Severe Sepsis secondary to UTI with Enterobacter cloacae multidrug resistant S/P course of imipenem 02/08 Hypotension. - resolved Poss 2/2 sepsis.- Afib - rate improvedwhich is multifactorial including conditions mentioned above , pain, electrolyte abnormalities and meds. Severe Aortic stenosis Continue digoxin . BP improved Cardiology ff po Cardizem 30 mg po q 6 . digoxin 0,125 mg po daily Patient with severe aortic stenosis with medical management failed care. Patient wants aggressive management at this time. Recent echo on 12/20 with normal EF. Will monitor on telemetry. TSH nl start OAC- after BM biopsy Thrombocytopenia/Pancytopenia Hematology ff- plan for BM biopsy -- Monday Coumadin and Lovenox held Acute encephalopathy secondary to sepsis, afib, multiple comorbidities. Improved. CT head reviewed and no acute findings. COPD, chronic respiratory failure and left pleural effusion status post thoracotomy. Continue nebulizations, oxygen and taper steroids. Pulm ff Hypokalemia. Currently on potassium 20 mg 3 times a day supplementation. Improved Deconditioning. Physical therapy. OT daily Wound care daily DVT prophylaxis on Lovenox . start coumadin overlap CM- DC planning- self pay but needs rehab for deconditioning- will need comprehensive rehab patient wants and willing to go rehab to get stronger- prefers [facility]- will consult [facility] " jus" and actually patient states she was given some finances for rehab specifically and willing to shoulder some cost for [facility] rehab if needs to [facility] made aware Problem Qualifiers (1) UTI (urinary tract infection): Qualified Codes: N30.00 - Acute cystitis without hematuria Addison Ray MD Feb 11, 2017 09:20
--- NOTE | 2017-02-11 10:32 | PD.CARD.PN ---
Subjective Subjective Remarks alert in nad Objective Medications Current Medications Medications (Trade) Dose Ordered Sig/Armin Route Start Time Stop Time Status Last Admin (NS Flush) 2 ml UNSCH PRN IV FLUSH 01/31/17 04:45 (NS Flush) 2 ml BID IV FLUSH 01/31/17 09:00 02/10/17 20:46 (Tylenol) 650 mg Q4H PRN PO 01/31/17 04:45 02/01/17 09:57 (Zofran Inj) 4 mg Q6H PRN IVP 01/31/17 04:45 (Lovenox Inj) 40 mg Q24H SQ 01/31/17 06:00 Future Hold 02/10/17 05:27 (Narcan Inj) 0.4 mg UNSCH PRN IV PUSH 01/31/17 04:45 (Milk Of Magnesia Liq) 30 ml Q12H PRN PO 01/31/17 04:45 (Senokot) 17.2 mg Q12H PRN PO 01/31/17 04:45 (Dulcolax Supp) 10 mg DAILY PRN RECTAL 01/31/17 04:45 (Lactulose Liq) 30 ml DAILY PRN PO 01/31/17 04:45 (Urecholine) 25 mg Q8HR PO 01/31/17 06:00 02/11/17 05:51 (Percocet 10-325 Mg) 1 tab Q4H PRN PO 01/31/17 04:45 02/11/17 05:56 (Flomax) 0.4 mg DAILY PO 01/31/17 09:00 02/11/17 08:55 (Spiriva Inh) 18 mcg DAILY INH 01/31/17 09:00 02/10/17 09:33 (KCl) 20 meq TID PO 01/31/17 13:00 02/11/17 08:56 (Duoneb Neb) 1 ampule QID NEB PRN NEB 01/31/17 12:00 02/01/17 18:51 (Mag-Ox) 400 mg Q12HR PO 02/01/17 21:00 02/11/17 08:55 (Ferrous Sulfate Liq) 300 mg DAILY PO 02/05/17 09:00 02/11/17 08:55 (Lanoxin) 0.125 mg DAILY PO 02/05/17 09:00 02/11/17 08:55 (Deltasone) 5 mg DAILY PO 02/07/17 09:00 02/11/17 08:55 (Lasix) 20 mg BID@09,18 PO 02/08/17 09:00 02/11/17 08:55 (Cardizem) 30 mg Q6HR PO 02/08/17 11:00 02/11/17 05:51 Vital Signs / I&O Vital Signs Date Time Temp Pulse Resp B/P (MAP) Pulse Ox O2 Delivery O2 Flow Rate FiO2 02/11/17 08:03 97.4 91 16 129/63 (85) 100 02/11/17 07:23 19 02/11/17 05:25 97.9 98 16 131/81 (98) 100 02/11/17 04:00 96 02/11/17 00:31 93 02/11/17 00:03 98.1 90 16 105/66 (79) 92 02/10/17 20:50 Nasal Cannula 2.00 02/10/17 19:52 92 02/10/17 19:32 97.3 101 16 145/54 (84) 100 02/10/17 16:02 98.2 99 16 110/60 (77) 96 02/10/17 16:00 73 02/10/17 12:03 98.1 66 16 130/66 (87) 96 02/10/17 12:00 95 I/O 02/10/17 02/10/17 02/10/17 02/11/17 02/11/17 02/11/17 07:00 15:00 23:00 07:00 15:00 23:00 Intake Total 240 ml 420 ml 240 ml Balance 240 ml 420 ml 240 ml Intake Oral 240 ml 420 ml 240 ml # Voids 1 1 5 3 # Bowel Movements 0 0 0 Physical Exam GENERAL: SKIN: Warm and dry. HEAD: Normocephalic. EYES: No scleral icterus. No injection or drainage. NECK: Supple, trachea midline. No JVD or lymphadenopathy. CARDIOVASCULAR: Regular rate and rhythm without murmurs, gallops, or rubs. RESPIRATORY: Breath sounds equal bilaterally. No accessory muscle use. GASTROINTESTINAL: Abdomen soft, non-tender, nondistended. MUSCULOSKELETAL: No cyanosis, or edema. BACK: Nontender without obvious deformity. No CVA tenderness. Assessment and Plan Problem List: (1) Aortic stenosis ICD Codes: I35.0 - Nonrheumatic aortic (valve) stenosis Status: Chronic (2) COPD (chronic obstructive pulmonary disease) ICD Codes: J44.9 - Chronic obstructive pulmonary disease, unspecified Status: Chronic (3) Pleural effusion on left ICD Codes: J90 - Pleural effusion, not elsewhere classified Status: Acute (4) Pulmonary HTN ICD Codes: I27.20 - Pulmonary hypertension, unspecified (5) pancytopenia, etiology undetermined, suspect MDS (6) new atrial fibrillation, RVR (7) moderately severe COPD (8) congestive heart failure, persistent pleural effusions Assessment and Plan 1.) Severe - failing medical management, continue lasix as tolerated, f/u ct surg and palliative care consults, bnp, bmp in am; d/w Dr Recinos 02/05/17, patient probably not candidate for tavr due to multiple co morbidities, eval by Dr Bustamante, candidate for tavr, pending bm bx results and improvement in comorbidities, can go to rehab with outpatient f/u for tavr work up,.patient appears motivated to have tavr 2.) Afib - hematology rec lovenox bridge to coumadin, hold coumadin until after bm bx. d/w Dr Ray and patient Problem Qualifiers (1) Aortic stenosis: Qualified Codes: I35.0 - Nonrheumatic aortic (valve) stenosis Sd Kirk MD Feb 11, 2017 10:32
[2017-02-11] MEDS: TIOTROPIUM BROMIDE 18 MCG INH INH SCH (10:33)
[2017-02-11] MEDS: SODIUM CHLORIDE 0.9% FLUSH 10 ML FLUSH IV FLUSH SCH ×2 (10:35→20:46)
[2017-02-12] VITALS (11 sets, daily range): BP systolic 104–121; BP diastolic 60–74; PULSE 75–119; RESP 16–20; TEMP 97.5–98.3; O2SAT 90–100
[2017-02-12] MEDS: oxyCODONE/ACETAMINOPHEN 10 MG/325 MG TAB PO PRN ×6 (02:29→23:20)
[2017-02-12] MEDS: BETHANECHOL CHL 25 MG TAB PO SCH ×3 (06:25→21:13)
[2017-02-12] MEDS: DILTIAZEM HCL 30 MG TAB PO SCH ×4 (06:26→23:20)
--- NOTE | 2017-02-12 09:07 | HHI.PR ---
Subjective Remarks Follow-up aortic stenosis, A. fib, pancytopenia. The patient states that she feels good today. She has good appetite. No chest pain or dyspnea at this time. Denies nausea or vomiting. Objective Vitals Vital Signs Date Time Temp Pulse Resp B/P (MAP) Pulse Ox O2 Delivery O2 Flow Rate FiO2 02/12/17 04:00 Nasal Cannula 2.00 02/12/17 04:00 75 02/12/17 04:00 97.5 80 20 114/62 (79) 94 02/12/17 00:12 94 02/12/17 00:00 Nasal Cannula 2.00 02/12/17 00:00 98.2 89 20 121/66 (84) 100 02/11/17 20:00 91 02/11/17 20:00 98.9 66 19 108/59 (75) 99 02/11/17 20:00 Nasal Cannula 2.00 02/11/17 16:03 98.0 123 16 120/76 (91) 100 02/11/17 12:03 97.3 92 16 130/62 (84) 100 I/O 02/11/17 02/11/17 02/11/17 02/12/17 02/12/17 02/12/17 07:00 15:00 23:00 07:00 15:00 23:00 Intake Total 240 ml 280 ml 480 ml Balance 240 ml 280 ml 480 ml Intake Oral 240 ml 280 ml 480 ml # Voids 3 3 2 # Bowel Movements 0 0 0 Result Diagram: 02/10/17 0825 02/09/17 0836 Imaging Last Impressions Chest X-Ray 02/10/17 0000 Signed Impressions: Service Date/Time: Friday, February 10, 2017 21:12 - CONCLUSION: 1. Moderate to large left pleural effusion and small right pleural effusion. 2. Bibasilar atelectasis and/or infiltrates. 3. Mild cardiomegaly. 4. Degenerative changes and scoliosis of the thoracic spine. Chad Mcmillan MD Head CT 02/03/17 0000 Signed Impressions: Service Date/Time: Friday, February 03, 2017 16:25 - CONCLUSION: Periventricular white matter changes otherwise negative. Raf Lindsay MD FACR Objective Remarks General: No acute distress. Heart: Regular rate and rhythm. 2 to 3/6 aortic stenosis murmur. Lungs: Clear to auscultation bilaterally. No wheezes, rales, or rhonchi. Breathing is nonlabored. Abdomen: Soft, nontender, nondistended. Extremities: Trace bilateral lower extremity edema. Psych: Alert and oriented. Urinary Catheter: No Vascular Central Line Catheter: No A/P Assessment and Plan 1. Severe sepsis secondary to UTI: Culture growing multidrug resistant Enterobacter cloacae. Appreciate infectious disease recommendations. Status post course of imipenem. 2. Severe aortic stenosis: Failing medical management. May be a candidate for TAVR following rehab. Echocardiogram from December 2016 shows normal EF. 3. Atrial fibrillation: Continue digoxin. Restart oral anticoagulation following bone marrow biopsy. 4. Thrombocytopenia/pancytopenia: Appreciate hematology recommendations. Bone marrow biopsy tomorrow. Coumadin and Lovenox on hold for procedure. 5. Acute encephalopathy secondary to sepsis: Improved. CT head negative. 6. COPD, chronic respiratory failure: Status post recent thoracotomy. Continue nebulizer treatments, oxygen. Taper steroids. Appreciate pulmonology recommendations. 7. Hypokalemia: Supplement potassium. 8. Deconditioning: Continue physical therapy, occupational therapy. 9. DVT prophylaxis: Lovenox. Coumadin to be restarted following bone marrow biopsy. Discussed with Dr. Kirk. Kaiden Ireland MD Feb 12, 2017 09:07
--- NOTE | 2017-02-12 09:12 | PD.CARD.PN ---
Subjective Subjective Remarks alert in nad Objective Medications Current Medications Medications (Trade) Dose Ordered Sig/Armin Route Start Time Stop Time Status Last Admin (NS Flush) 2 ml UNSCH PRN IV FLUSH 01/31/17 04:45 (NS Flush) 2 ml BID IV FLUSH 01/31/17 09:00 02/11/17 20:46 (Tylenol) 650 mg Q4H PRN PO 01/31/17 04:45 02/01/17 09:57 (Zofran Inj) 4 mg Q6H PRN IVP 01/31/17 04:45 (Lovenox Inj) 40 mg Q24H SQ 01/31/17 06:00 Future Hold 02/10/17 05:27 (Narcan Inj) 0.4 mg UNSCH PRN IV PUSH 01/31/17 04:45 (Milk Of Magnesia Liq) 30 ml Q12H PRN PO 01/31/17 04:45 (Senokot) 17.2 mg Q12H PRN PO 01/31/17 04:45 (Dulcolax Supp) 10 mg DAILY PRN RECTAL 01/31/17 04:45 (Lactulose Liq) 30 ml DAILY PRN PO 01/31/17 04:45 (Urecholine) 25 mg Q8HR PO 01/31/17 06:00 02/12/17 06:25 (Percocet 10-325 Mg) 1 tab Q4H PRN PO 01/31/17 04:45 02/12/17 06:26 (Flomax) 0.4 mg DAILY PO 01/31/17 09:00 02/11/17 08:55 (Spiriva Inh) 18 mcg DAILY INH 01/31/17 09:00 02/11/17 10:33 (KCl) 20 meq TID PO 01/31/17 13:00 02/11/17 18:29 (Duoneb Neb) 1 ampule QID NEB PRN NEB 01/31/17 12:00 02/01/17 18:51 (Mag-Ox) 400 mg Q12HR PO 02/01/17 21:00 02/11/17 20:46 (Ferrous Sulfate Liq) 300 mg DAILY PO 02/05/17 09:00 02/11/17 08:55 (Lanoxin) 0.125 mg DAILY PO 02/05/17 09:00 02/11/17 08:55 (Deltasone) 5 mg DAILY PO 02/07/17 09:00 02/11/17 08:55 (Lasix) 20 mg BID@09,18 PO 02/08/17 09:00 02/11/17 18:30 (Cardizem) 30 mg Q6HR PO 02/08/17 11:00 02/12/17 06:26 Vital Signs / I&O Vital Signs Date Time Temp Pulse Resp B/P (MAP) Pulse Ox O2 Delivery O2 Flow Rate FiO2 02/12/17 04:00 Nasal Cannula 2.00 02/12/17 04:00 75 02/12/17 04:00 97.5 80 20 114/62 (79) 94 02/12/17 00:12 94 02/12/17 00:00 Nasal Cannula 2.00 02/12/17 00:00 98.2 89 20 121/66 (84) 100 02/11/17 20:00 91 02/11/17 20:00 98.9 66 19 108/59 (75) 99 02/11/17 20:00 Nasal Cannula 2.00 02/11/17 16:03 98.0 123 16 120/76 (91) 100 02/11/17 12:03 97.3 92 16 130/62 (84) 100 I/O 02/11/17 02/11/17 02/11/17 02/12/17 02/12/17 02/12/17 07:00 15:00 23:00 07:00 15:00 23:00 Intake Total 240 ml 280 ml 480 ml Balance 240 ml 280 ml 480 ml Intake Oral 240 ml 280 ml 480 ml # Voids 3 3 2 # Bowel Movements 0 0 0 Physical Exam GENERAL: SKIN: Warm and dry. HEAD: Normocephalic. EYES: No scleral icterus. No injection or drainage. NECK: Supple, trachea midline. No JVD or lymphadenopathy. CARDIOVASCULAR: Regular rate and rhythm without murmurs, gallops, or rubs. RESPIRATORY: Breath sounds equal bilaterally. No accessory muscle use. GASTROINTESTINAL: Abdomen soft, non-tender, nondistended. MUSCULOSKELETAL: No cyanosis, or edema. BACK: Nontender without obvious deformity. No CVA tenderness. Laboratory GENERAL: SKIN: Warm and dry. HEAD: Normocephalic. EYES: No scleral icterus. No injection or drainage. NECK: Supple, trachea midline. No JVD or lymphadenopathy. CARDIOVASCULAR: Regular rate and rhythm without murmurs, gallops, or rubs. RESPIRATORY: Breath sounds equal bilaterally. No accessory muscle use. GASTROINTESTINAL: Abdomen soft, non-tender, nondistended. MUSCULOSKELETAL: No cyanosis, or edema. BACK: Nontender without obvious deformity. No CVA tenderness. Assessment and Plan Problem List: (1) Aortic stenosis ICD Codes: I35.0 - Nonrheumatic aortic (valve) stenosis Status: Chronic (2) COPD (chronic obstructive pulmonary disease) ICD Codes: J44.9 - Chronic obstructive pulmonary disease, unspecified Status: Chronic (3) Pleural effusion on left ICD Codes: J90 - Pleural effusion, not elsewhere classified Status: Acute (4) Pulmonary HTN ICD Codes: I27.20 - Pulmonary hypertension, unspecified (5) pancytopenia, etiology undetermined, suspect MDS (6) new atrial fibrillation, RVR (7) moderately severe COPD (8) congestive heart failure, persistent pleural effusions Assessment and Plan 1.) Severe - failing medical management, continue lasix as tolerated, f/u ct surg and palliative care consults, bnp, bmp in am; d/w Dr Recinos 02/05/17, patient probably not candidate for tavr due to multiple co morbidities, eval by Dr Bustamante, candidate for tavr, pending bm bx results and improvement in comorbidities, can go to rehab with outpatient f/u for tavr work up,.patient appears motivated to have tavr 2.) Afib - hematology rec lovenox bridge to coumadin, hold coumadin until after bm bx. d/w Dr Ireland and patient, will need lovenox held periprocedurally for bone marrow biopsy Problem Qualifiers (1) Aortic stenosis: Qualified Codes: I35.0 - Nonrheumatic aortic (valve) stenosis Sd Kirk MD Feb 12, 2017 09:12
[2017-02-12] MEDS: MAGNESIUM OXIDE 400 MG TAB PO SCH ×2 (09:21→21:14)
[2017-02-12] MEDS: predniSONE 5 MG TAB PO SCH (09:21)
[2017-02-12] MEDS: DIGOXIN 0.125 MG TAB PO SCH (09:22)
[2017-02-12] MEDS: FERROUS SULFATE 300 MG /5ML UDC PO SCH (09:22)
[2017-02-12] MEDS: POTASSIUM CHLORIDE 10 MEQ CAP PO SCH ×3 (09:22→18:22)
[2017-02-12] MEDS: FUROSEMIDE 20 MG TAB PO SCH ×2 (09:22→18:21)
[2017-02-12] MEDS: TAMSULOSIN HCL 0.4 MG CAP PO SCH (09:22)
[2017-02-12] MEDS: TIOTROPIUM BROMIDE 18 MCG INH INH SCH (09:24)
[2017-02-12] MEDS: SODIUM CHLORIDE 0.9% FLUSH 10 ML FLUSH IV FLUSH SCH ×2 (10:45→21:14)
[2017-02-12] MEDS: ENOXAPARIN SODIUM 60 MG/0.6 ML SYRINGE SQ SCH ×2 (10:45→21:14)
[2017-02-12 15:33] LABS: AUTOMATED NEUTROPHIL # 4.9 TH/MM3 (1.8-7.7); BASOPHIL % 0.3 % (0.0-2.0); EOSINOPHIL % 0.2 % (0.0-4.0); HEMATOCRIT 24.8 % (35.0-46.0); HEMO FLAGS DIFF FINAL; LYMPH % 9.5 % (9.0-44.0); LYMPHOCYTE # 0.6 TH/MM3 (1.0-4.8); MEAN CELL VOLUME 105.7 FL (80.0-100.0); MEAN CORPUSCULAR HEMOGLOBIN 34.9 PG (27.0-34.0); MONO % 10.4 % (0.0-8.0); NEUT % 79.6 % (16.0-70.0); PLATELET COUNT 132 TH/MM3 (150-450); RED BLOOD COUNT 2.35 MIL/MM3 (4.00-5.30); RED CELL DISTRIBUTION WIDTH 22.3 % (11.6-17.2); WHITE BLOOD COUNT 6.2 TH/MM3 (4.0-11.0)
[2017-02-13] VITALS (11 sets, daily range): BP systolic 92–132; BP diastolic 62–71; PULSE 73–139; RESP 16–21; TEMP 97.1–98.2; O2SAT 93–100
[2017-02-13] MEDS: oxyCODONE/ACETAMINOPHEN 10 MG/325 MG TAB PO PRN ×5 (05:23→21:47)
[2017-02-13] MEDS: BETHANECHOL CHL 25 MG TAB PO SCH ×3 (05:23→21:47)
[2017-02-13] MEDS: DILTIAZEM HCL 30 MG TAB PO SCH ×3 (05:23→17:45)
--- NOTE | 2017-02-13 08:41 | HHI.PR ---
Subjective Remarks Last Impressions Chest X-Ray 02/10/17 0000 Signed Impressions: Service Date/Time: Friday, February 10, 2017 21:12 - CONCLUSION: 1. Moderate to large left pleural effusion and small right pleural effusion. 2. Bibasilar atelectasis and/or infiltrates. 3. Mild cardiomegaly. 4. Degenerative changes and scoliosis of the thoracic spine. Chad Mcmillan MD Head CT 02/03/17 0000 Signed Impressions: Service Date/Time: Friday, February 03, 2017 16:25 - CONCLUSION: Periventricular white matter changes otherwise negative. Raf Lindsay MD FACR Objective Vitals Vital Signs Date Time Temp Pulse Resp B/P (MAP) Pulse Ox O2 Delivery O2 Flow Rate FiO2 02/13/17 04:04 101 02/13/17 04:00 Nasal Cannula 4.00 02/13/17 04:00 98.2 111 20 132/66 (88) 95 02/13/17 00:05 119 02/13/17 00:00 97.9 139 21 96/69 (78) 93 02/13/17 00:00 Nasal Cannula 4.00 02/12/17 20:35 97 02/12/17 20:00 97.6 82 20 117/74 (88) 94 02/12/17 20:00 Nasal Cannula 4.00 02/12/17 16:03 98.3 92 16 106/62 (77) 95 02/12/17 16:00 119 02/12/17 12:03 98.1 96 16 104/60 (75) 96 02/12/17 12:00 112 I/O 02/12/17 02/12/17 02/12/17 02/13/17 02/13/17 02/13/17 07:00 15:00 23:00 07:00 15:00 23:00 Intake Total 480 ml 360 ml 420 ml Balance 480 ml 360 ml 420 ml Intake Oral 480 ml 360 ml 420 ml # Voids 2 2 3 # Bowel Movements 0 0 0 Result Diagram: 02/12/17 1505 02/09/17 0836 Imaging Last Impressions Chest X-Ray 02/10/17 0000 Signed Impressions: Service Date/Time: Friday, February 10, 2017 21:12 - CONCLUSION: 1. Moderate to large left pleural effusion and small right pleural effusion. 2. Bibasilar atelectasis and/or infiltrates. 3. Mild cardiomegaly. 4. Degenerative changes and scoliosis of the thoracic spine. Chad Mcmillan MD Head CT 02/03/17 0000 Signed Impressions: Service Date/Time: Friday, February 03, 2017 16:25 - CONCLUSION: Periventricular white matter changes otherwise negative. Raf Lindsay MD FACR Objective Remarks General: No acute distress. Heart: Regular rate and rhythm. 2 to 3/6 aortic stenosis murmur. Lungs: Clear to auscultation bilaterally. No wheezes, rales, or rhonchi. Breathing is nonlabored. Abdomen: Soft, nontender, nondistended. Extremities: Trace bilateral lower extremity edema. Psych: Alert and oriented. Procedures None Urinary Catheter: No Vascular Central Line Catheter: No A/P Problem List: (1) UTI (urinary tract infection) ICD Code: N39.0 - Urinary tract infection, site not specified Status: Acute (2) Hypokalemia ICD Code: E87.6 - Hypokalemia (3) Severe sepsis ICD Code: A41.9 - Sepsis, unspecified organism; R65.20 - Severe sepsis without septic shock (4) Encephalopathy ICD Code: G93.40 - Encephalopathy, unspecified (5) Aortic stenosis ICD Code: I35.0 - Nonrheumatic aortic (valve) stenosis Status: Chronic (6) COPD (chronic obstructive pulmonary disease) ICD Code: J44.9 - Chronic obstructive pulmonary disease, unspecified Status: Chronic (7) pancytopenia, etiology undetermined, suspect MDS (8) Physical deconditioning ICD Code: R53.81 - Other malaise Status: Chronic Assessment and Plan 1. Severe sepsis secondary to UTI: Culture growing multidrug resistant Enterobacter cloacae. Appreciate infectious disease recommendations. Status post course of imipenem. 2. Severe aortic stenosis: Failing medical management. May be a candidate for TAVR following rehab. Echocardiogram from December 2016 shows normal EF. 3. Atrial fibrillation: Continue digoxin. Restart oral anticoagulation following bone marrow biopsy. 4. Thrombocytopenia/pancytopenia: Appreciate hematology recommendations. Bone marrow biopsy today. Coumadin and Lovenox on hold for procedure. 5. Acute encephalopathy secondary to sepsis: Improved. CT head negative. 6. COPD, chronic respiratory failure: Status post recent thoracotomy. Continue nebulizer treatments, oxygen. Taper steroids. Appreciate pulmonology recommendations. 7. Hypokalemia: Supplement potassium. 8. Deconditioning: Continue physical therapy, occupational therapy. 9. DVT prophylaxis: Lovenox and Coumadin to be restarted following bone marrow biopsy. Problem Qualifiers (1) UTI (urinary tract infection): Qualified Codes: N30.00 - Acute cystitis without hematuria (2) Aortic stenosis: Qualified Codes: I35.0 - Nonrheumatic aortic (valve) stenosis Kaiden Ireland MD Feb 13, 2017 08:41
[2017-02-13 09:10] LABS: AUTOMATED NEUTROPHIL # 4.1 TH/MM3 (1.8-7.7); BASOPHIL % 0.4 % (0.0-2.0); EOSINOPHIL % 0.2 % (0.0-4.0); HEMATOCRIT 24.4 % (35.0-46.0); HEMO FLAGS DIFF FINAL; LYMPH % 17.1 % (9.0-44.0); MEAN CELL VOLUME 105.3 FL (80.0-100.0); MEAN CORPUSCULAR HEMOGLOBIN 34.8 PG (27.0-34.0); MONO % 12.5 % (0.0-8.0); NEUT % 69.8 % (16.0-70.0); PLATELET COUNT 122 TH/MM3 (150-450); RED BLOOD COUNT 2.32 MIL/MM3 (4.00-5.30); RED CELL DISTRIBUTION WIDTH 21.7 % (11.6-17.2); WHITE BLOOD COUNT 5.9 TH/MM3 (4.0-11.0)
[2017-02-13] MEDS: TIOTROPIUM BROMIDE 18 MCG INH INH SCH (09:14)
[2017-02-13] MEDS: TAMSULOSIN HCL 0.4 MG CAP PO SCH (09:15)
[2017-02-13] MEDS: DIGOXIN 0.125 MG TAB PO SCH (09:15)
[2017-02-13] MEDS: POTASSIUM CHLORIDE 10 MEQ CAP PO SCH ×3 (09:15→17:46)
[2017-02-13] MEDS: FERROUS SULFATE 300 MG /5ML UDC PO SCH (09:15)
[2017-02-13] MEDS: predniSONE 5 MG TAB PO SCH (09:15)
[2017-02-13] MEDS: MAGNESIUM OXIDE 400 MG TAB PO SCH ×2 (09:15→21:47)
[2017-02-13] MEDS: SODIUM CHLORIDE 0.9% FLUSH 10 ML FLUSH IV FLUSH SCH ×2 (09:15→21:00)
[2017-02-13] MEDS: FUROSEMIDE 20 MG TAB PO SCH ×2 (09:15→17:46)
--- NOTE | 2017-02-13 11:31 | PD.ONC.PN ---
Subjective Subjective Remarks Afebrile overnight. Waiting to go down for bone marrow biopsy. No bleeding. at bedside. Objective Data Date Time Temp Pulse Resp B/P (MAP) Pulse Ox O2 Delivery O2 Flow Rate FiO2 02/13/17 08:45 Nasal Cannula 2.00 02/13/17 08:00 85 02/13/17 08:00 97.6 84 16 99/62 (74) 100 02/13/17 04:04 101 02/13/17 04:00 Nasal Cannula 4.00 02/13/17 04:00 98.2 111 20 132/66 (88) 95 02/13/17 00:05 119 02/13/17 00:00 97.9 139 21 96/69 (78) 93 02/13/17 00:00 Nasal Cannula 4.00 02/12/17 20:35 97 02/12/17 20:00 97.6 82 20 117/74 (88) 94 02/12/17 20:00 Nasal Cannula 4.00 02/12/17 16:03 98.3 92 16 106/62 (77) 95 02/12/17 16:00 119 02/12/17 12:03 98.1 96 16 104/60 (75) 96 02/12/17 12:00 112 02/13/17 02/13/17 02/13/17 07:00 15:00 23:00 Intake Total 420 ml Balance 420 ml Result Diagram: 02/13/1717 02/09/1736 Laboratory Results Laboratory Tests Test 02/12/17 15:05 02/13/17 08:17 White Blood Count 6.2 TH/MM3 5.9 TH/MM3 Red Blood Count 2.35 MIL/MM3 2.32 MIL/MM3 Hemoglobin 8.2 GM/DL 8.1 GM/DL Hematocrit 24.8 % 24.4 % Mean Corpuscular Volume 105.7 FL 105.3 FL Mean Corpuscular Hemoglobin 34.9 PG 34.8 PG Mean Corpuscular Hemoglobin Concent 33.0 % 33.0 % Red Cell Distribution Width 22.3 % 21.7 % Platelet Count 132 TH/MM3 122 TH/MM3 Mean Platelet Volume 9.3 FL 9.4 FL Neutrophils (%) (Auto) 79.6 % 69.8 % Lymphocytes (%) (Auto) 9.5 % 17.1 % Monocytes (%) (Auto) 10.4 % 12.5 % Eosinophils (%) (Auto) 0.2 % 0.2 % Basophils (%) (Auto) 0.3 % 0.4 % Neutrophils # (Auto) 4.9 TH/MM3 4.1 TH/MM3 Lymphocytes # (Auto) 0.6 TH/MM3 1.0 TH/MM3 Monocytes # (Auto) 0.6 TH/MM3 0.7 TH/MM3 Eosinophils # (Auto) 0.0 TH/MM3 0.0 TH/MM3 Basophils # (Auto) 0.0 TH/MM3 0.0 TH/MM3 CBC Comment DIFF FINAL DIFF FINAL Differential Comment Administered Medications Medications (Trade) Dose Ordered Sig/Armin Route PRN Reason Start Time Stop Time Status Last Admin Dose Admin Sodium Chloride (NS Flush) 2 ml BID IV FLUSH 01/31/17 09:00 02/13/17 09:15 Acetaminophen (Tylenol) 650 mg Q4H PRN PO TEMP > 100.4 01/31/17 04:45 02/01/17 09:57 Bethanechol Chloride (Urecholine) 25 mg Q8HR PO 01/31/17 06:00 02/13/17 05:23 Oxycodone/ Acetaminophen (Percocet 10-325 Mg) 1 tab Q4H PRN PO PAIN SCALE 5-10 01/31/17 04:45 02/13/17 09:16 Tamsulosin HCl (Flomax) 0.4 mg DAILY PO 01/31/17 09:00 02/13/17 09:15 Tiotropium [place] (Spiriva Inh) 18 mcg DAILY INH 01/31/17 09:00 02/13/17 09:14 Potassium Chloride (KCl) 20 meq TID PO 01/31/17 13:00 02/13/17 09:15 Albuterol/ Ipratropium (Duoneb Neb) 1 ampule QID NEB PRN NEB SOB/WHEEZING 01/31/17 12:00 02/01/17 18:51 Magnesium Oxide (Mag-Ox) 400 mg Q12HR PO 02/01/17 21:00 02/13/17 09:15 Ferrous Sulfate (Ferrous Sulfate Liq) 300 mg DAILY PO 02/05/17 09:00 02/13/17 09:15 Digoxin (Lanoxin) 0.125 mg DAILY PO 02/05/17 09:00 02/13/17 09:15 Prednisone (Deltasone) 5 mg DAILY PO 02/07/17 09:00 02/13/17 09:15 Furosemide (Lasix) 20 mg BID@,18 PO 02/08/17 09:00 02/13/17 09:15 Diltiazem HCl (Cardizem) 30 mg Q6HR PO 02/08/17 11:00 02/13/17 05:23 Objective Remarks GENERAL: Middle aged female sitting up in chair next to bed in nad. SKIN: Warm and dry. scattered bruising. HEAD: Normocephalic. EYES: No injection or drainage. NECK: Supple, trachea midline. CARDIOVASCULAR: Regular rate and rhythm RESPIRATORY: diminished at bases, occasional rhonchi. on 2L O2 via NC GASTROINTESTINAL: Abdomen soft, non-tender, nondistended. EXTREMITIES: No cyanosis NEUROLOGICAL: awake and alert, normal speech. moving all extremities. Assessment/Plan Problem List: (1) Aortic stenosis ICD Codes: I35.0 - Nonrheumatic aortic (valve) stenosis Status: Chronic Plan: -- Dr. Bustamante has declined TAVR for now -- Continue Lovenox until INR has been therapeutic for 48 ours -- She appears to be not a candidate for TAVR due to multiple comorbidities. -- If she is considered not a candidate for surgery, Cardiology is recommending hospice. (2) pancytopenia, etiology undetermined, suspect MDS Plan: -- Patient likely has MDS . This is not biopsy proven. --Bone marrow biopsy planned for 02/13 (3) new atrial fibrillation, RVR Assessment 56 year-old female with pancytopenia found to have severe aortic stenosis Plan 1. resume anticoagulation today after bone marrow biopsy 2. monitor CBC Attending Statement The exam, history, and the medical decision-making described in the above note were completed with the assistance of the mid-level provider. I reviewed and agree with the findings presented. I attest that I had a [id number] encounter with the patient on the same day, and personally performed and documented my assessment and findings in the medical record Bone marrow biopsy completed resume Heparin d/w rn o/n events reviewed Problem Qualifiers (1) Aortic stenosis: Qualified Codes: I35.0 - Nonrheumatic aortic (valve) stenosis Naida Quinn Feb 13, 2017 11:31 Wicho Yun MD Feb 14, 2017 00:02
--- NOTE | 2017-02-13 14:55 | PD.CARD.PN ---
Subjective Subjective Remarks alert in nad Objective Medications Current Medications Medications (Trade) Dose Ordered Sig/Armin Route Start Time Stop Time Status Last Admin (NS Flush) 2 ml UNSCH PRN IV FLUSH 01/31/17 04:45 (NS Flush) 2 ml BID IV FLUSH 01/31/17 09:00 02/13/17 09:15 (Tylenol) 650 mg Q4H PRN PO 01/31/17 04:45 02/01/17 09:57 (Zofran Inj) 4 mg Q6H PRN IVP 01/31/17 04:45 (Narcan Inj) 0.4 mg UNSCH PRN IV PUSH 01/31/17 04:45 (Milk Of Magnesia Liq) 30 ml Q12H PRN PO 01/31/17 04:45 (Senokot) 17.2 mg Q12H PRN PO 01/31/17 04:45 (Dulcolax Supp) 10 mg DAILY PRN RECTAL 01/31/17 04:45 (Lactulose Liq) 30 ml DAILY PRN PO 01/31/17 04:45 (Urecholine) 25 mg Q8HR PO 01/31/17 06:00 02/13/17 13:05 (Percocet 10-325 Mg) 1 tab Q4H PRN PO 01/31/17 04:45 02/13/17 13:30 (Flomax) 0.4 mg DAILY PO 01/31/17 09:00 02/13/17 09:15 (Spiriva Inh) 18 mcg DAILY INH 01/31/17 09:00 02/13/17 09:14 (KCl) 20 meq TID PO 01/31/17 13:00 02/13/17 13:05 (Duoneb Neb) 1 ampule QID NEB PRN NEB 01/31/17 12:00 02/01/17 18:51 (Mag-Ox) 400 mg Q12HR PO 02/01/17 21:00 02/13/17 09:15 (Ferrous Sulfate Liq) 300 mg DAILY PO 02/05/17 09:00 02/13/17 09:15 (Lanoxin) 0.125 mg DAILY PO 02/05/17 09:00 02/13/17 09:15 (Deltasone) 5 mg DAILY PO 02/07/17 09:00 02/13/17 09:15 (Lasix) 20 mg BID@09,18 PO 02/08/17 09:00 02/13/17 09:15 (Cardizem) 30 mg Q6HR PO 02/08/17 11:00 02/13/17 13:04 Vital Signs / I&O Vital Signs Date Time Temp Pulse Resp B/P (MAP) Pulse Ox O2 Delivery O2 Flow Rate FiO2 02/13/17 12:00 97.1 110 16 101/64 (76) 100 02/13/17 12:00 99 02/13/17 08:45 Nasal Cannula 2.00 02/13/17 08:00 85 02/13/17 08:00 97.6 84 16 99/62 (74) 100 02/13/17 04:04 101 02/13/17 04:00 Nasal Cannula 4.00 02/13/17 04:00 98.2 111 20 132/66 (88) 95 02/13/17 00:05 119 02/13/17 00:00 97.9 139 21 96/69 (78) 93 02/13/17 00:00 Nasal Cannula 4.00 02/12/17 20:35 97 02/12/17 20:00 97.6 82 20 117/74 (88) 94 02/12/17 20:00 Nasal Cannula 4.00 02/12/17 16:03 98.3 92 16 106/62 (77) 95 02/12/17 16:00 119 I/O 02/12/17 02/12/17 02/12/17 02/13/17 02/13/17 02/13/17 07:00 15:00 23:00 07:00 15:00 23:00 Intake Total 480 ml 360 ml 420 ml Balance 480 ml 360 ml 420 ml Intake Oral 480 ml 360 ml 420 ml # Voids 2 2 3 # Bowel Movements 0 0 0 Physical Exam GENERAL: SKIN: Warm and dry. HEAD: Normocephalic. EYES: No scleral icterus. No injection or drainage. NECK: Supple, trachea midline. No JVD or lymphadenopathy. CARDIOVASCULAR: Regular rate and rhythm without murmurs, gallops, or rubs. RESPIRATORY: Breath sounds equal bilaterally. No accessory muscle use. GASTROINTESTINAL: Abdomen soft, non-tender, nondistended. MUSCULOSKELETAL: No cyanosis, or edema. BACK: Nontender without obvious deformity. No CVA tenderness. Laboratory Laboratory Tests Test 02/12/17 15:05 02/13/17 08:17 White Blood Count 6.2 TH/MM3 5.9 TH/MM3 Red Blood Count 2.35 MIL/MM3 2.32 MIL/MM3 Hemoglobin 8.2 GM/DL 8.1 GM/DL Hematocrit 24.8 % 24.4 % Mean Corpuscular Volume 105.7 FL 105.3 FL Mean Corpuscular Hemoglobin 34.9 PG 34.8 PG Mean Corpuscular Hemoglobin Concent 33.0 % 33.0 % Red Cell Distribution Width 22.3 % 21.7 % Platelet Count 132 TH/MM3 122 TH/MM3 Mean Platelet Volume 9.3 FL 9.4 FL Neutrophils (%) (Auto) 79.6 % 69.8 % Lymphocytes (%) (Auto) 9.5 % 17.1 % Monocytes (%) (Auto) 10.4 % 12.5 % Eosinophils (%) (Auto) 0.2 % 0.2 % Basophils (%) (Auto) 0.3 % 0.4 % Neutrophils # (Auto) 4.9 TH/MM3 4.1 TH/MM3 Lymphocytes # (Auto) 0.6 TH/MM3 1.0 TH/MM3 Monocytes # (Auto) 0.6 TH/MM3 0.7 TH/MM3 Eosinophils # (Auto) 0.0 TH/MM3 0.0 TH/MM3 Basophils # (Auto) 0.0 TH/MM3 0.0 TH/MM3 CBC Comment DIFF FINAL DIFF FINAL Differential Comment Assessment and Plan Problem List: (1) Aortic stenosis ICD Codes: I35.0 - Nonrheumatic aortic (valve) stenosis Status: Chronic (2) COPD (chronic obstructive pulmonary disease) ICD Codes: J44.9 - Chronic obstructive pulmonary disease, unspecified Status: Chronic (3) Pleural effusion on left ICD Codes: J90 - Pleural effusion, not elsewhere classified Status: Acute (4) Pulmonary HTN ICD Codes: I27.20 - Pulmonary hypertension, unspecified (5) pancytopenia, etiology undetermined, suspect MDS (6) new atrial fibrillation, RVR (7) moderately severe COPD (8) congestive heart failure, persistent pleural effusions Assessment and Plan 1.) Severe - failing medical management, continue lasix as tolerated, f/u ct surg and palliative care consults, bnp, bmp in am; d/w Dr Recinos 02/05/17, patient probably not candidate for tavr due to multiple co morbidities, eval by Dr Bustamante, candidate for tavr, pending bm bx results and improvement in comorbidities, can go to rehab with outpatient f/u for tavr work up,.patient appears motivated to have tavr 2.) Afib - hematology rec lovenox bridge to coumadin, hold coumadin until after bm bx. d/w Dr Ireland and patient, will need lovenox held periprocedurally for bone marrow biopsy; lovenox held today for bone marrow biopsy, restart when cleared after bone marrow biopsy Problem Qualifiers (1) Aortic stenosis: Qualified Codes: I35.0 - Nonrheumatic aortic (valve) stenosis Sd Kirk MD Feb 13, 2017 14:55
[2017-02-13] MEDS ORDERED: LIDOCAINE 1%/EPINEPHrine 1:100,000 SOLN 20 ML VIAL ONE (15:47)
[2017-02-13] MEDS ORDERED: MIDAZOLAM HCL 2 MG/2 ML VIAL ONE ×2 (15:52)
--- NOTE | 2017-02-13 16:36 | PD.RAD ---
Post CT Procedure Prog Note Pre Procedure Diagnosis: (1) Pancytopenia Post Procedure Diagnosis: Procedure Date: Feb 13, 2017 Supervising Radiologist: Monroe Solitario Proceduralist/Assist: jeison levine Estimated blood loss: none Anesthesia: Conscious Sedation Plan of Activity Patient to Unit: ROPU Patient Condition: Good See PACS Report for procedural detail/treatment Monroe Solitario MD Feb 13, 2017 16:36
[2017-02-13 17:58] LABS: BONE MARROW PROCESSING COMPLETE; IRON STAIN DONE; JENNER GIEMSA STAIN DONE
--- NOTE | 2017-02-13 19:17 | HHI.PR ---
Subjective Remarks Alert and seems OK. Will have BM biopsy On o2 2 L. Leg edema is less. Off Lovenox Able to move in room. Objective Vital Signs Date Time Temp Pulse Resp B/P (MAP) Pulse Ox O2 Delivery O2 Flow Rate FiO2 02/13/17 17:00 79 18 111/71 (84) 98 02/13/17 16:45 98.2 73 20 92/71 (78) 100 02/13/17 16:00 97.3 83 16 116/69 (85) 100 02/13/17 12:00 97.1 110 16 101/64 (76) 100 02/13/17 12:00 99 02/13/17 08:45 Nasal Cannula 2.00 02/13/17 08:00 85 02/13/17 08:00 97.6 84 16 99/62 (74) 100 02/13/17 04:04 101 02/13/17 04:00 Nasal Cannula 4.00 02/13/17 04:00 98.2 111 20 132/66 (88) 95 02/13/17 00:05 119 02/13/17 00:00 97.9 139 21 96/69 (78) 93 02/13/17 00:00 Nasal Cannula 4.00 02/12/17 20:35 97 02/12/17 20:00 97.6 82 20 117/74 (88) 94 02/12/17 20:00 Nasal Cannula 4.00 I/O 02/12/17 02/12/17 02/12/17 02/13/17 02/13/17 02/13/17 07:00 15:00 23:00 07:00 15:00 23:00 Intake Total 480 ml 360 ml 420 ml Balance 480 ml 360 ml 420 ml Intake Oral 480 ml 360 ml 420 ml # Voids 2 2 3 # Bowel Movements 0 0 0 Result Diagram: 02/13/1781602/09/17 0836 Objective Remarks GENERAL: This is an averagely built middle-aged white female who is pale and not dyspneic at rest. HEENT: Head normocephalic. Pupils are reactive and equal. Tongue moist. Throat is clear. NECK: No bruits. No venous distension. Trachea midline. No thyroid enlargement. CHEST: diminished movements of the left chest. Breath sounds diminished over the left mid and lower chest with wheezes. CARDIAC: Heart sounds are regular S1-S2 with a systolic ejection murmur 3/6 at the left sternal border. ABDOMEN: Soft, protuberant without masses. No organomegaly. EXTREMITIES: 1 + edema. Decreased pulses. No calf tenderness. NEUROLOGIC: Reflexes 1+. The patient does move all extremities well with no gross motor deficits. SKIN: No lesions noted.1 + edema of legs Assessment and Plan Assessment and Plan IMPRESSION 1. Chronic bilateral leg edema (lymphedema). 2. Sepsis with UTI 3. COPD and chronic bronchitis 4. Severe deconditioning. 5. Status post VAT thoracotomy left chest with decortication of chronic loculated effusion 6. Atelectasis left lower lung. 7. Possible CHF. Plan : 1. Continue daily Diuretic 2. O2 at 2 L. 3. Nebs BID , duoneb.PRN 4. Bone marrow biopsy today. 5. continue IS q2 h. 6. CBC,BMP in am 7. Rehab Placement Venessa Chung MD Feb 13, 2017 19:17
[2017-02-14] VITALS (10 sets, daily range): BP systolic 98–123; BP diastolic 57–72; PULSE 93–124; RESP 16–20; TEMP 97.3–97.9; O2SAT 95–100
[2017-02-14 00:45] LABS: HEMATOCRIT 24.4 % (35.0-46.0); MEAN CELL VOLUME 105.9 FL (80.0-100.0); MEAN CORPUSCULAR HEMOGLOBIN 34.9 PG (27.0-34.0); MEAN CORPUSCULAR HGB CONC 32.9 % (32.0-36.0); PLATELET COUNT 114 TH/MM3 (150-450); RED CELL DISTRIBUTION WIDTH 22.1 % (11.6-17.2); REVIEW FLAG FINAL; WHITE BLOOD COUNT 5.8 TH/MM3 (4.0-11.0)
[2017-02-14 00:53] LABS: APTT (PATIENT) 28.5 SEC (24.3-30.1); PROTHROMBIN TIME - PATIENT 10.2 SEC (9.8-11.6)
[2017-02-14] MEDS: DILTIAZEM HCL 30 MG TAB PO SCH ×4 (00:58→17:51)
[2017-02-14] MEDS: HEPARIN-D5W 25,000 U/250 ML 250 ML IV PRN ×2 (01:13→22:55)
[2017-02-14] MEDS: oxyCODONE/ACETAMINOPHEN 10 MG/325 MG TAB PO PRN ×5 (06:14→23:11)
[2017-02-14] MEDS: BETHANECHOL CHL 25 MG TAB PO SCH ×3 (06:14→22:58)
[2017-02-14 07:03] LABS: AUTOMATED NEUTROPHIL # 3.3 TH/MM3 (1.8-7.7); BASOPHIL # 0.1 TH/MM3 (0-0.2); BASOPHIL % 1.3 % (0.0-2.0); EOSINOPHIL % 0.3 % (0.0-4.0); HEMATOCRIT 23.5 % (35.0-46.0); HEMO FLAGS DIFF FINAL; LYMPH % 12.1 % (9.0-44.0); LYMPHOCYTE # 0.6 TH/MM3 (1.0-4.8); MEAN CELL VOLUME 105.1 FL (80.0-100.0); MEAN CORPUSCULAR HEMOGLOBIN 35.5 PG (27.0-34.0); MEAN CORPUSCULAR HGB CONC 33.8 % (32.0-36.0); MONO % 19.8 % (0.0-8.0); NEUT % 66.5 % (16.0-70.0); PLATELET COUNT 110 TH/MM3 (150-450); RED BLOOD COUNT 2.24 MIL/MM3 (4.00-5.30); RED CELL DISTRIBUTION WIDTH 21.9 % (11.6-17.2)
[2017-02-14 07:17] LABS: APTT (PATIENT) 48.4 SEC (24.3-30.1)
[2017-02-14 07:24] LABS: BICARBONATE 33.9 MEQ/L (21.0-32.0); POTASSIUM 4.9 MEQ/L (3.5-5.1)
--- NOTE | 2017-02-14 08:47 | HHI.PR ---
Subjective Remarks Follow-up pancytopenia, atrial fibrillation. The patient had bone marrow biopsy yesterday. States that she is no longer anxious. Pain is well controlled. No specific complaints at this time. Still feels weak. Objective Vitals Vital Signs Date Time Temp Pulse Resp B/P (MAP) Pulse Ox O2 Delivery O2 Flow Rate FiO2 02/14/17 08:23 Nasal Cannula 2.00 02/14/17 04:06 93 02/14/17 04:00 Nasal Cannula 2.00 02/14/17 04:00 97.9 103 16 123/61 (81) 100 02/14/17 00:07 98 02/14/17 00:00 Nasal Cannula 2.00 02/14/17 00:00 97.7 107 16 116/71 (86) 95 02/13/17 20:00 97.2 88 18 123/71 (88) 100 02/13/17 19:58 Nasal Cannula 2.00 02/13/17 19:58 108 02/13/17 17:00 79 18 111/71 (84) 98 02/13/17 16:45 98.2 73 20 92/71 (78) 100 02/13/17 16:00 97.3 83 16 116/69 (85) 100 02/13/17 12:00 97.1 110 16 101/64 (76) 100 02/13/17 12:00 99 02/13/17 08:45 Nasal Cannula 2.00 I/O 02/13/17 02/13/17 02/13/17 02/14/17 02/14/17 02/14/17 07:00 15:00 23:00 07:00 15:00 23:00 Intake Total 420 ml Balance 420 ml Intake Oral 420 ml # Voids 3 # Bowel Movements 0 Result Diagram: 02/14/17 0603 02/14/17 0603 Imaging Last Impressions Chest X-Ray 02/10/17 0000 Signed Impressions: Service Date/Time: Friday, February 10, 2017 21:12 - CONCLUSION: 1. Moderate to large left pleural effusion and small right pleural effusion. 2. Bibasilar atelectasis and/or infiltrates. 3. Mild cardiomegaly. 4. Degenerative changes and scoliosis of the thoracic spine. Chad Mcmillan MD Head CT 02/03/17 0000 Signed Impressions: Service Date/Time: Friday, February 03, 2017 16:25 - CONCLUSION: Periventricular white matter changes otherwise negative. Raf Lindsay MD FACR Objective Remarks General: No acute distress. Heart: Regular rate and rhythm. 2-3/6 aortic stenosis murmur. Lungs: Clear to auscultation bilaterally. No wheezes, rales, or rhonchi. Breathing is nonlabored. Abdomen: Soft, nontender, nondistended. Extremities: Trace bilateral lower extremity edema. Psych: Alert and oriented. Procedures 02/13/17 bone marrow biopsy Urinary Catheter: No Vascular Central Line Catheter: No A/P Problem List: (1) UTI (urinary tract infection) ICD Code: N39.0 - Urinary tract infection, site not specified Status: Acute (2) Hypokalemia ICD Code: E87.6 - Hypokalemia (3) Severe sepsis ICD Code: A41.9 - Sepsis, unspecified organism; R65.20 - Severe sepsis without septic shock (4) Encephalopathy ICD Code: G93.40 - Encephalopathy, unspecified (5) Aortic stenosis ICD Code: I35.0 - Nonrheumatic aortic (valve) stenosis Status: Chronic (6) COPD (chronic obstructive pulmonary disease) ICD Code: J44.9 - Chronic obstructive pulmonary disease, unspecified Status: Chronic (7) pancytopenia, etiology undetermined, suspect MDS (8) Physical deconditioning ICD Code: R53.81 - Other malaise Status: Chronic Assessment and Plan 1. Severe sepsis secondary to UTI: Culture growing multidrug resistant Enterobacter cloacae. Status post course of imipenem. Infectious disease has signed off. 2. Severe aortic stenosis: Failing medical management. May be a candidate for TAVR following rehab, but not at this time. Echocardiogram from December 2016 shows normal EF. 3. Atrial fibrillation: Continue digoxin. Heparin drip per hematology. Plan to start Coumadin soon. 4. Thrombocytopenia/pancytopenia: Appreciate hematology recommendations. Status post bone marrow biopsy, pathology pending. 5. Acute encephalopathy secondary to sepsis: Improved. CT head negative. 6. COPD, chronic respiratory failure: Status post recent thoracotomy. Continue nebulizer treatments, oxygen, prednisone. Appreciate pulmonology recommendations. 7. Hypokalemia: Improved. Continue potassium supplementation. 8. Deconditioning: Continue physical therapy, occupational therapy. 9. DVT prophylaxis: Heparin drip. Problem Qualifiers (1) UTI (urinary tract infection): Qualified Codes: N30.00 - Acute cystitis without hematuria (2) Aortic stenosis: Qualified Codes: I35.0 - Nonrheumatic aortic (valve) stenosis Kaiden Ireland MD Feb 14, 2017 08:47
[2017-02-14] MEDS: POTASSIUM CHLORIDE 10 MEQ CAP PO SCH ×3 (09:21→17:51)
[2017-02-14] MEDS: predniSONE 5 MG TAB PO SCH (09:21)
[2017-02-14] MEDS: TAMSULOSIN HCL 0.4 MG CAP PO SCH (09:21)
[2017-02-14] MEDS: MAGNESIUM OXIDE 400 MG TAB PO SCH ×2 (09:21→22:59)
[2017-02-14] MEDS: DIGOXIN 0.125 MG TAB PO SCH (09:21)
[2017-02-14] MEDS: FUROSEMIDE 20 MG TAB PO SCH ×2 (09:22→17:52)
[2017-02-14] MEDS: SODIUM CHLORIDE 0.9% FLUSH 10 ML FLUSH IV FLUSH SCH ×2 (09:22→23:00)
[2017-02-14] MEDS: FERROUS SULFATE 300 MG /5ML UDC PO SCH (09:22)
[2017-02-14] MEDS: TIOTROPIUM BROMIDE 18 MCG INH INH SCH (09:23)
--- NOTE | 2017-02-14 11:58 | PD.ONC.PN ---
Subjective Subjective Remarks Afebrile overnight. Patient tolerated bone marrow biopsy yesterday. No complaints today. no bleeding. Objective Data Date Time Temp Pulse Resp B/P (MAP) Pulse Ox O2 Delivery O2 Flow Rate FiO2 02/14/17 08:23 Nasal Cannula 2.00 02/14/17 08:00 96 02/14/17 08:00 97.6 96 18 98/59 (72) 100 02/14/17 04:06 93 02/14/17 04:00 Nasal Cannula 2.00 02/14/17 04:00 97.9 103 16 123/61 (81) 100 02/14/17 00:07 98 02/14/17 00:00 Nasal Cannula 2.00 02/14/17 00:00 97.7 107 16 116/71 (86) 95 02/13/17 20:00 97.2 88 18 123/71 (88) 100 02/13/17 19:58 Nasal Cannula 2.00 02/13/17 19:58 108 02/13/17 17:00 79 18 111/71 (84) 98 02/13/17 16:45 98.2 73 20 92/71 (78) 100 02/13/17 16:00 97.3 83 16 116/69 (85) 100 02/13/17 12:00 97.1 110 16 101/64 (76) 100 02/13/17 12:00 99 Result Diagram: 02/14/17 0603 02/14/17 0603 Laboratory Results Laboratory Tests Test 02/13/17 16:20 02/14/17 00:29 02/14/17 06:03 White Blood Count 5.8 TH/MM3 5.0 TH/MM3 Red Blood Count 2.30 MIL/MM3 2.24 MIL/MM3 Hemoglobin 8.0 GM/DL 8.0 GM/DL Hematocrit 24.4 % 23.5 % Mean Corpuscular Volume 105.9 FL 105.1 FL Mean Corpuscular Hemoglobin 34.9 PG 35.5 PG Mean Corpuscular Hemoglobin Concent 32.9 % 33.8 % Red Cell Distribution Width 22.1 % 21.9 % Platelet Count 114 TH/MM3 110 TH/MM3 Mean Platelet Volume 8.9 FL 9.5 FL Prothrombin Time 10.2 SEC Prothromb Time International Ratio 1.0 RATIO Activated Partial Thromboplast Time 28.5 SEC 48.4 SEC Neutrophils (%) (Auto) 66.5 % Lymphocytes (%) (Auto) 12.1 % Monocytes (%) (Auto) 19.8 % Eosinophils (%) (Auto) 0.3 % Basophils (%) (Auto) 1.3 % Neutrophils # (Auto) 3.3 TH/MM3 Lymphocytes # (Auto) 0.6 TH/MM3 Monocytes # (Auto) 1.0 TH/MM3 Eosinophils # (Auto) 0.0 TH/MM3 Basophils # (Auto) 0.1 TH/MM3 CBC Comment DIFF FINAL Differential Comment Blood Urea Nitrogen 10 MG/DL Creatinine 0.38 MG/DL Random Glucose 89 MG/DL Calcium Level 8.3 MG/DL Sodium Level 138 MEQ/L Potassium Level 4.9 MEQ/L Chloride Level 102 MEQ/L Carbon Dioxide Level 33.9 MEQ/L Anion Gap 2 MEQ/L Estimat Glomerular Filtration Rate 175 ML/MIN Administered Medications Medications (Trade) Dose Ordered Sig/Armin Route PRN Reason Start Time Stop Time Status Last Admin Dose Admin Sodium Chloride (NS Flush) 2 ml BID IV FLUSH 01/31/17 09:00 02/14/17 09:22 Acetaminophen (Tylenol) 650 mg Q4H PRN PO TEMP > 100.4 01/31/17 04:45 02/01/17 09:57 Bethanechol Chloride (Urecholine) 25 mg Q8HR PO 01/31/17 06:00 02/14/17 06:14 Oxycodone/ Acetaminophen (Percocet 10-325 Mg) 1 tab Q4H PRN PO PAIN SCALE 5-10 01/31/17 04:45 02/14/17 10:18 Tamsulosin HCl (Flomax) 0.4 mg DAILY PO 01/31/17 09:00 02/14/17 09:21 Tiotropium [place] (Spiriva Inh) 18 mcg DAILY INH 01/31/17 09:00 02/14/17 09:23 Potassium Chloride (KCl) 20 meq TID PO 01/31/17 13:00 02/14/17 09:21 Albuterol/ Ipratropium (Duoneb Neb) 1 ampule QID NEB PRN NEB SOB/WHEEZING 01/31/17 12:00 02/01/17 18:51 Magnesium Oxide (Mag-Ox) 400 mg Q12HR PO 02/01/17 21:00 02/14/17 09:21 Ferrous Sulfate (Ferrous Sulfate Liq) 300 mg DAILY PO 02/05/17 09:00 02/14/17 09:22 Digoxin (Lanoxin) 0.125 mg DAILY PO 02/05/17 09:00 02/14/17 09:21 Prednisone (Deltasone) 5 mg DAILY PO 02/07/17 09:00 02/14/17 09:21 Furosemide (Lasix) 20 mg BID@,18 PO 02/08/17 09:00 02/14/17 09:22 Diltiazem HCl (Cardizem) 30 mg Q6HR PO 02/08/17 11:00 02/14/17 06:14 Heparin Sodium/ Dextrose 250 ml @ 12 mls/hr TITRATE PRN IV Coagulation Management 02/14/17 00:15 02/14/17 01:13 Objective Remarks GENERAL: Middle aged female upright in bed in nad. SKIN: Warm and dry. scattered ecchymotic lesions. HEAD: Normocephalic. EYES: No injection or drainage. NECK: Supple, trachea midline. CARDIOVASCULAR: Regular rate and rhythm RESPIRATORY: diminished at bases, anterior valera with occasional rhonchi. GASTROINTESTINAL: Abdomen soft, non-tender, nondistended. EXTREMITIES: No cyanosis NEUROLOGICAL: awake and alert, normal speech. moving all extremities. Assessment/Plan Problem List: (1) Aortic stenosis ICD Codes: I35.0 - Nonrheumatic aortic (valve) stenosis Status: Chronic Plan: on heparin bridge to cuomadin -- Dr. Bustamante has declined TAVR for now -- Continue heparin until INR has been therapeutic for 48 ours -- She appears to be not a candidate for TAVR due to multiple comorbidities. -- If she is considered not a candidate for surgery, Cardiology is recommending hospice. (2) pancytopenia, etiology undetermined, suspect MDS Plan: -- Patient likely has MDS . This is not biopsy proven. --Bone marrow biopsy planned for 02/13 (3) new atrial fibrillation, RVR Assessment 56 year-old female with pancytopenia found to have severe aortic stenosis Plan 1. continue heparin, start coumadin. 2. monitor CBC Attending Statement The exam, history, and the medical decision-making described in the above note were completed with the assistance of the mid-level provider. I reviewed and agree with the findings presented. I attest that I had a [id number] encounter with the patient on the same day, and personally performed and documented my assessment and findings in the medical record Heparin and Coumadin daily coags stop heparin BM pending d/w rn o/n events reviewed Problem Qualifiers (1) Aortic stenosis: Qualified Codes: I35.0 - Nonrheumatic aortic (valve) stenosis Naida Quinn Feb 14, 2017 11:58 Wicho Yun MD Feb 14, 2017 23:17
--- NOTE | 2017-02-14 14:16 | PD.CARD.PN ---
Subjective Subjective Remarks alert in nad Objective Medications Current Medications Medications (Trade) Dose Ordered Sig/Armin Route Start Time Stop Time Status Last Admin (NS Flush) 2 ml UNSCH PRN IV FLUSH 01/31/17 04:45 (NS Flush) 2 ml BID IV FLUSH 01/31/17 09:00 02/14/17 09:22 (Tylenol) 650 mg Q4H PRN PO 01/31/17 04:45 02/01/17 09:57 (Zofran Inj) 4 mg Q6H PRN IVP 01/31/17 04:45 (Narcan Inj) 0.4 mg UNSCH PRN IV PUSH 01/31/17 04:45 (Milk Of Magnesia Liq) 30 ml Q12H PRN PO 01/31/17 04:45 (Senokot) 17.2 mg Q12H PRN PO 01/31/17 04:45 (Dulcolax Supp) 10 mg DAILY PRN RECTAL 01/31/17 04:45 (Lactulose Liq) 30 ml DAILY PRN PO 01/31/17 04:45 (Urecholine) 25 mg Q8HR PO 01/31/17 06:00 02/14/17 12:23 (Percocet 10-325 Mg) 1 tab Q4H PRN PO 01/31/17 04:45 02/14/17 10:18 (Flomax) 0.4 mg DAILY PO 01/31/17 09:00 02/14/17 09:21 (Spiriva Inh) 18 mcg DAILY INH 01/31/17 09:00 02/14/17 09:23 (KCl) 20 meq TID PO 01/31/17 13:00 02/14/17 09:21 (Duoneb Neb) 1 ampule QID NEB PRN NEB 01/31/17 12:00 02/01/17 18:51 (Mag-Ox) 400 mg Q12HR PO 02/01/17 21:00 02/14/17 09:21 (Ferrous Sulfate Liq) 300 mg DAILY PO 02/05/17 09:00 02/14/17 09:22 (Lanoxin) 0.125 mg DAILY PO 02/05/17 09:00 02/14/17 09:21 (Deltasone) 5 mg DAILY PO 02/07/17 09:00 02/14/17 09:21 (Lasix) 20 mg BID@09,18 PO 02/08/17 09:00 02/14/17 09:22 (Cardizem) 30 mg Q6HR PO 02/08/17 11:00 02/14/17 12:23 Heparin Sodium/ Dextrose 250 ml @ 12 mls/hr TITRATE PRN IV 02/14/17 00:15 02/14/17 01:13 (Coumadin) 2 mg DAILY@16 PO 02/14/17 16:00 (Coumadin Booklet) 1 ONCE ONCE .XX 02/14/17 16:00 02/14/17 16:01 Vital Signs / I&O Vital Signs Date Time Temp Pulse Resp B/P (MAP) Pulse Ox O2 Delivery O2 Flow Rate FiO2 02/14/17 12:00 97.6 107 20 99/62 (74) 99 02/14/17 08:23 Nasal Cannula 2.00 02/14/17 08:00 96 02/14/17 08:00 97.6 96 18 98/59 (72) 100 02/14/17 04:06 93 02/14/17 04:00 Nasal Cannula 2.00 02/14/17 04:00 97.9 103 16 123/61 (81) 100 02/14/17 00:07 98 02/14/17 00:00 Nasal Cannula 2.00 02/14/17 00:00 97.7 107 16 116/71 (86) 95 02/13/17 20:00 97.2 88 18 123/71 (88) 100 02/13/17 19:58 Nasal Cannula 2.00 02/13/17 19:58 108 02/13/17 17:00 79 18 111/71 (84) 98 02/13/17 16:45 98.2 73 20 92/71 (78) 100 02/13/17 16:00 97.3 83 16 116/69 (85) 100 I/O 02/13/17 02/13/17 02/13/17 02/14/17 02/14/17 02/14/17 07:00 15:00 23:00 07:00 15:00 23:00 Intake Total 420 ml Balance 420 ml Intake Oral 420 ml # Voids 3 # Bowel Movements 0 Physical Exam GENERAL: SKIN: Warm and dry. HEAD: Normocephalic. EYES: No scleral icterus. No injection or drainage. NECK: Supple, trachea midline. No JVD or lymphadenopathy. CARDIOVASCULAR: Regular rate and rhythm without murmurs, gallops, or rubs. RESPIRATORY: Breath sounds equal bilaterally. No accessory muscle use. GASTROINTESTINAL: Abdomen soft, non-tender, nondistended. MUSCULOSKELETAL: No cyanosis, or edema. BACK: Nontender without obvious deformity. No CVA tenderness. Laboratory Laboratory Tests Test 02/13/17 16:20 02/14/17 00:29 02/14/17 06:03 White Blood Count 5.8 TH/MM3 5.0 TH/MM3 Red Blood Count 2.30 MIL/MM3 2.24 MIL/MM3 Hemoglobin 8.0 GM/DL 8.0 GM/DL Hematocrit 24.4 % 23.5 % Mean Corpuscular Volume 105.9 FL 105.1 FL Mean Corpuscular Hemoglobin 34.9 PG 35.5 PG Mean Corpuscular Hemoglobin Concent 32.9 % 33.8 % Red Cell Distribution Width 22.1 % 21.9 % Platelet Count 114 TH/MM3 110 TH/MM3 Mean Platelet Volume 8.9 FL 9.5 FL Prothrombin Time 10.2 SEC Prothromb Time International Ratio 1.0 RATIO Activated Partial Thromboplast Time 28.5 SEC 48.4 SEC Neutrophils (%) (Auto) 66.5 % Lymphocytes (%) (Auto) 12.1 % Monocytes (%) (Auto) 19.8 % Eosinophils (%) (Auto) 0.3 % Basophils (%) (Auto) 1.3 % Neutrophils # (Auto) 3.3 TH/MM3 Lymphocytes # (Auto) 0.6 TH/MM3 Monocytes # (Auto) 1.0 TH/MM3 Eosinophils # (Auto) 0.0 TH/MM3 Basophils # (Auto) 0.1 TH/MM3 CBC Comment DIFF FINAL Differential Comment Blood Urea Nitrogen 10 MG/DL Creatinine 0.38 MG/DL Random Glucose 89 MG/DL Calcium Level 8.3 MG/DL Sodium Level 138 MEQ/L Potassium Level 4.9 MEQ/L Chloride Level 102 MEQ/L Carbon Dioxide Level 33.9 MEQ/L Anion Gap 2 MEQ/L Estimat Glomerular Filtration Rate 175 ML/MIN Assessment and Plan Problem List: (1) Aortic stenosis ICD Codes: I35.0 - Nonrheumatic aortic (valve) stenosis Status: Chronic (2) COPD (chronic obstructive pulmonary disease) ICD Codes: J44.9 - Chronic obstructive pulmonary disease, unspecified Status: Chronic (3) Pleural effusion on left ICD Codes: J90 - Pleural effusion, not elsewhere classified Status: Acute (4) Pulmonary HTN ICD Codes: I27.20 - Pulmonary hypertension, unspecified (5) pancytopenia, etiology undetermined, suspect MDS (6) new atrial fibrillation, RVR (7) moderately severe COPD (8) congestive heart failure, persistent pleural effusions Assessment and Plan 1.) Severe - failing medical management, continue lasix as tolerated, f/u ct surg and palliative care consults, bnp, bmp in am; d/w Dr Recinos 02/05/17, patient probably not candidate for tavr due to multiple co morbidities, eval by Dr Bustamante, candidate for tavr, pending bm bx results and improvement in comorbidities, can go to rehab with outpatient f/u for tavr work up,.patient appears motivated to have tavr 2.) Afib - hematology rec lovenox bridge to coumadin, hold coumadin until after bm bx. d/w Dr Ireland and patient, will need lovenox held periprocedurally for bone marrow biopsy; lovenox held today for bone marrow biopsy, restart when cleared after bone marrow biopsy Problem Qualifiers (1) Aortic stenosis: Qualified Codes: I35.0 - Nonrheumatic aortic (valve) stenosis Sd Kirk MD Feb 14, 2017 14:16
[2017-02-14 16:08] LABS: APTT (PATIENT) 61.4 SEC (24.3-30.1)
--- NOTE | 2017-02-14 16:54 | HHI.HCPN ---
Reason for visit a. To assist with evaluation and management of symptoms including: Dyspnea , weakness b. To assist medical decision maker(s) with: better understanding of current medical conditions; weighing benefits/burdens of medical treatment options; making medical treatment decisions. . Subjective/Interval History INTERVAL NOTE: The patient underwent bone marrow biopsy yesterday, and the results are pending. She denies pain at this time, and does not feel dyspneic while at rest. She remains afebrile. Her hemoglobin remains stable at 8. CV surgery reports that TAVR may be possible if the patient is more stable, is successful at Rehab, and the comorbidities are well controlled (and depending on bone marrow biopsy results). The patient is, in fact, interested in pursuing that. . Advance Directives Living Will: Completed, but not made available Health Care Surrogate: Never completed Durable Power of Space Technologist: Never completed Objective Vital Signs Date Time Temp Pulse Resp B/P (MAP) Pulse Ox O2 Delivery O2 Flow Rate FiO2 02/14/17 12:00 97.6 107 20 99/62 (74) 99 02/14/17 08:23 Nasal Cannula 2.00 02/14/17 08:00 96 02/14/17 08:00 97.6 96 18 98/59 (72) 100 02/14/17 04:06 93 02/14/17 04:00 Nasal Cannula 2.00 02/14/17 04:00 97.9 103 16 123/61 (81) 100 02/14/17 00:07 98 02/14/17 00:00 Nasal Cannula 2.00 02/14/17 00:00 97.7 107 16 116/71 (86) 95 02/13/17 20:00 97.2 88 18 123/71 (88) 100 02/13/17 19:58 Nasal Cannula 2.00 02/13/17 19:58 108 02/13/17 17:00 79 18 111/71 (84) 98 Intake & Output 02/14/17 02/14/17 07:00 19:00 Intake Total 720 ml Balance 720 ml Intake Oral 720 ml Physical Exam CONSTITUTIONAL/GENERAL: This is a chronically ill, female patient in no acute distress. TUBES/LINES/DRAINS: Nasal oxygen, peripheral IVs NECK: Trachea midline. Supple, nontender. CARDIOVASCULAR: Irregular rhythm without murmurs, gallops, or rubs. No JVD. Peripheral pulses diminished. RESPIRATORY/CHEST: Symmetric, but mildly labored respirations. Markedly diminished breath sounds bilateral. No accessory muscles used. GASTROINTESTINAL: Abdomen soft, non-tender, nondistended. Bowel sounds present. MUSCULOSKELETAL: Extremities without clubbing or cyanosis, decreasing edema. No mottling or clubbing. NEUROLOGICAL: Alert and awake. Cognitively sharp. Answering questions, able to make needs known. PSYCHIATRIC: No obvious anxiety/depression. no apparent hallucinations or other psychotic thought process. . Diagnostic Tests Laboratory Laboratory Tests Test 02/12/17 15:05 02/13/17 08:17 02/13/17 16:20 02/14/17 00:29 White Blood Count 6.2 TH/MM3 (4.0-11.0) 5.9 TH/MM3 (4.0-11.0) 5.8 TH/MM3 (4.0-11.0) Red Blood Count 2.35 MIL/MM3 (4.00-5.30) 2.32 MIL/MM3 (4.00-5.30) 2.30 MIL/MM3 (4.00-5.30) Hemoglobin 8.2 GM/DL (11.6-15.3) 8.1 GM/DL (11.6-15.3) 8.0 GM/DL (11.6-15.3) Hematocrit 24.8 % (35.0-46.0) 24.4 % (35.0-46.0) 24.4 % (35.0-46.0) Mean Corpuscular Volume 105.7 FL (80.0-100.0) 105.3 FL (80.0-100.0) 105.9 FL (80.0-100.0) Mean Corpuscular Hemoglobin 34.9 PG (27.0-34.0) 34.8 PG (27.0-34.0) 34.9 PG (27.0-34.0) Mean Corpuscular Hemoglobin Concent 33.0 % (32.0-36.0) 33.0 % (32.0-36.0) 32.9 % (32.0-36.0) Red Cell Distribution Width 22.3 % (11.6-17.2) 21.7 % (11.6-17.2) 22.1 % (11.6-17.2) Platelet Count 132 TH/MM3 (150-450) 122 TH/MM3 (150-450) 114 TH/MM3 (150-450) Mean Platelet Volume 9.3 FL (7.0-11.0) 9.4 FL (7.0-11.0) 8.9 FL (7.0-11.0) Neutrophils (%) (Auto) 79.6 % (16.0-70.0) 69.8 % (16.0-70.0) Lymphocytes (%) (Auto) 9.5 % (9.0-44.0) 17.1 % (9.0-44.0) Monocytes (%) (Auto) 10.4 % (0.0-8.0) 12.5 % (0.0-8.0) Eosinophils (%) (Auto) 0.2 % (0.0-4.0) 0.2 % (0.0-4.0) Basophils (%) (Auto) 0.3 % (0.0-2.0) 0.4 % (0.0-2.0) Neutrophils # (Auto) 4.9 TH/MM3 (1.8-7.7) 4.1 TH/MM3 (1.8-7.7) Lymphocytes # (Auto) 0.6 TH/MM3 (1.0-4.8) 1.0 TH/MM3 (1.0-4.8) Monocytes # (Auto) 0.6 TH/MM3 (0-0.9) 0.7 TH/MM3 (0-0.9) Eosinophils # (Auto) 0.0 TH/MM3 (0-0.4) 0.0 TH/MM3 (0-0.4) Basophils # (Auto) 0.0 TH/MM3 (0-0.2) 0.0 TH/MM3 (0-0.2) CBC Comment DIFF FINAL DIFF FINAL Differential Comment Prothrombin Time 10.2 SEC (9.8-11.6) Prothromb Time International Ratio 1.0 RATIO Activated Partial Thromboplast Time 28.5 SEC (24.3-30.1) Test 02/14/17 06:03 02/14/17 14:48 White Blood Count 5.0 TH/MM3 (4.0-11.0) Red Blood Count 2.24 MIL/MM3 (4.00-5.30) Hemoglobin 8.0 GM/DL (11.6-15.3) Hematocrit 23.5 % (35.0-46.0) Mean Corpuscular Volume 105.1 FL (80.0-100.0) Mean Corpuscular Hemoglobin 35.5 PG (27.0-34.0) Mean Corpuscular Hemoglobin Concent 33.8 % (32.0-36.0) Red Cell Distribution Width 21.9 % (11.6-17.2) Platelet Count 110 TH/MM3 (150-450) Mean Platelet Volume 9.5 FL (7.0-11.0) Neutrophils (%) (Auto) 66.5 % (16.0-70.0) Lymphocytes (%) (Auto) 12.1 % (9.0-44.0) Monocytes (%) (Auto) 19.8 % (0.0-8.0) Eosinophils (%) (Auto) 0.3 % (0.0-4.0) Basophils (%) (Auto) 1.3 % (0.0-2.0) Neutrophils # (Auto) 3.3 TH/MM3 (1.8-7.7) Lymphocytes # (Auto) 0.6 TH/MM3 (1.0-4.8) Monocytes # (Auto) 1.0 TH/MM3 (0-0.9) Eosinophils # (Auto) 0.0 TH/MM3 (0-0.4) Basophils # (Auto) 0.1 TH/MM3 (0-0.2) CBC Comment DIFF FINAL Differential Comment Activated Partial Thromboplast Time 48.4 SEC (24.3-30.1) 61.4 SEC (24.3-30.1) Blood Urea Nitrogen 10 MG/DL (7-18) Creatinine 0.38 MG/DL (0.50-1.00) Random Glucose 89 MG/DL (74-106) Calcium Level 8.3 MG/DL (8.5-10.1) Sodium Level 138 MEQ/L (136-145) Potassium Level 4.9 MEQ/L (3.5-5.1) Chloride Level 102 MEQ/L (98-107) Carbon Dioxide Level 33.9 MEQ/L (21.0-32.0) Anion Gap 2 MEQ/L (5-15) Estimat Glomerular Filtration Rate 175 ML/MIN (>89) Result Diagram: 02/14/17 0603 02/14/17 0603 Procedures Bone marrow biopsy 02/13/17 . 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 Spiritual: The patient says she is spiritual and her own way, but is not affiliated with any muslim or clergy, and does not want executive director of nursing visits. Legal: The patient has capacity for decision-making, and her Feliberto will be the proxy decision-maker when she loses that capacity. Ethical issues impacting care: None . Important Contacts : Feliberto Maurizio [phone] . 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 With her profound debility and weakness, her overall prognosis is pretty poor. . Code Status: Full Code Plan * FULL CODE; she would accept treatment with life support "for a while but not for a long time since that wouldn't really be on life." At this time, she does want to continue aggressive care at this time including mechanical ventilation and resuscitation; however, she makes it clear that if she is on a ventilator for some period of time and is not going to get better, she would want to have it withdrawn and be allowed to peacefully. * DECISION-MAKING: The patient has capacity for decision-making, and her Feliberto will be the proxy decision-maker when she loses that capacity. * GOALS: Aggressive. Patient is planning to go to rehab upon discharge with the hope that she can become strong enough for aggressive interventions....maybe even TAVR * SYMPTOMS- dyspnea: Patient denies dyspnea on exam. Oxygen saturation 100% on 2L via NC. * SYMPTOMS- Patient has weakness and fatigue. She does want to go to Rehab.. * Palliative Care will continue to follow the patient during this hospitalization. . Time Spent Total Floor Time (mins): 27 Face to Face Time (mins): 15 >50% Counseling/Coord of Care: Yes Attestation To help prompt me to consider important information that might be impacting today's encounter and assessment, information from prior notes written by myself or my colleagues may have been "brought forward" into today's note. My signature on this note, however, is an attestation that I personally performed the exam, history, and/or decision-making noted today, and, unless otherwise indicated, the interactions with patient, family, and staff as well as the review of records all occurred today. I also attest that the listed assessment and stated plan reflect my best clinical judgment today based on the combination of historical information, prior notes, and today's exam/ interactions. When time spent is documented, it refers only to time spent today by the signer, or if indicated, combined time spent today by collaborating physician/nurse practitioner. Kayleen Whipple MD Feb 14, 2017 16:54
[2017-02-14] MEDS: WARFARIN SOD 2 MG TAB PO SCH (17:57)
--- NOTE | 2017-02-14 17:59 | HHI.PR ---
Subjective Remarks Alert and feels OK..Had BM biopsy and result pending. On o2 2 L. Leg edema is less. Able to ambulate in room. Objective Vital Signs Date Time Temp Pulse Resp B/P (MAP) Pulse Ox O2 Delivery O2 Flow Rate FiO2 02/14/17 16:11 124 02/14/17 16:00 97.4 98 20 102/72 (82) 100 02/14/17 12:00 97.6 107 20 99/62 (74) 99 02/14/17 11:58 109 02/14/17 08:23 Nasal Cannula 2.00 02/14/17 08:00 96 02/14/17 08:00 97.6 96 18 98/59 (72) 100 02/14/17 04:06 93 02/14/17 04:00 Nasal Cannula 2.00 02/14/17 04:00 97.9 103 16 123/61 (81) 100 02/14/17 00:07 98 02/14/17 00:00 Nasal Cannula 2.00 02/14/17 00:00 97.7 107 16 116/71 (86) 95 02/13/17 20:00 97.2 88 18 123/71 (88) 100 02/13/17 19:58 Nasal Cannula 2.00 02/13/17 19:58 108 I/O 02/13/17 02/13/17 02/13/17 02/14/17 02/14/17 02/14/17 07:00 15:00 23:00 07:00 15:00 23:00 Intake Total 420 ml 720 ml Balance 420 ml 720 ml Intake Oral 420 ml 720 ml # Voids 3 # Bowel Movements 0 Result Diagram: 02/14/17 0603 02/14/17 0603 Objective Remarks GENERAL: This is an averagely built middle-aged white female who is pale and not dyspneic at rest. HEENT: Head normocephalic. Pupils are reactive and equal. Tongue moist. Throat is clear. NECK: No bruits. No venous distension. Trachea midline. No thyroid enlargement. CHEST: diminished movements of the left chest. Breath sounds diminished over the left mid and lower chest with wheezes. CARDIAC: Heart sounds are regular S1-S2 with a systolic ejection murmur 3/6 at the left sternal border. ABDOMEN: Soft, protuberant without masses. No organomegaly. EXTREMITIES: 1 + edema. Decreased pulses. No calf tenderness. NEUROLOGIC: Reflexes 1+. The patient does move all extremities well with no gross motor deficits. SKIN: No lesions noted. Assessment and Plan Assessment and Plan IMPRESSION 1. Chronic bilateral leg edema (lymphedema). 2. Sepsis with UTI 3. COPD and chronic bronchitis 4. Severe deconditioning. 5. Status post VAT thoracotomy left chest with decortication of chronic loculated effusion 6. Atelectasis left lower lung. 7. Possible CHF. Plan : 1. Continue daily Diuretic 2. O2 at 2 L. 3. Nebs BID , duoneb.PRN 4. PT and OT. 5. coumadin for anticoagulation 6. Await BM Biopsy report. Venessa Chung MD Feb 14, 2017 17:59
[2017-02-15] VITALS (8 sets, daily range): BP systolic 104–123; BP diastolic 57–65; PULSE 82–110; RESP 18–20; TEMP 97.4–98.2; O2SAT 94–100
[2017-02-15] MEDS: DILTIAZEM HCL 30 MG TAB PO SCH ×4 (01:28→17:00)
[2017-02-15] MEDS: BETHANECHOL CHL 25 MG TAB PO SCH ×3 (06:13→21:44)
[2017-02-15] MEDS: oxyCODONE/ACETAMINOPHEN 10 MG/325 MG TAB PO PRN ×4 (06:13→21:45)
--- NOTE | 2017-02-15 07:41 | RADRPT ---
EXAM DATE/TIME: 02/13/2017 16:15 [place] COMPARISON: No previous studies available for comparison. INDICATIONS : Pancytopenia. SEDATION TIME: 15 minutes BIOPSY SITE: Right ilium MEDICATION(S): 1.) 1 mg midazolam (Versed) IV 2.) 100 mcg fentanyl (Sublimaze) DEVICE(S): 1.) 11 gauge Bone marrow biopsy needle MEDICAL HISTORY : Chronic obstructive pulmonary disease. SURGICAL HISTORY : None. ENCOUNTER: Initial ACUITY: 1 day PAIN SCORE: 0/10 LOCATION: Bilateral pelvis A total of one core specimen(s) were obtained and sent to the laboratory for pathologic evaluation. PROCEDURE: 1. CT guided bone marrow biopsy. 2. Conscious sedation with continuous EKG and oximetry monitoring. 3. EKG and oximetry remained stable throughout the procedure. Prior to the procedure informed consent was obtained. Any appropriate prior imaging studies were rev iewed. Using automated exposure control and adjustment of the mA and/or kV according to patient size , radiation dose was kept as low as reasonably achievable to obtain optimal diagnostic quality images . DICOM format image data is available electronically for review and comparison. The site was prepped in a sterile fashion. Full sterile technique was used, including cap, mask, shayla rile gloves and gown and a large sterile sheet. Hand hygiene and 2% chlorhexidine and/or betadine/al cohol prep was utilized per protocol for cutaneous antisepsis. The skin and subcutaneous tissues wer e infiltrated with local anesthetic solution. With CT guidance the previously identified target was localized. Biopsy was performed using the presc ribed needle as above. Following biopsy marrow aspiration was performed with repeat puncture. Adequa te hemostasis was obtained with compression at the puncture site. Follow-up CT scan reveals no hemorrhage. Conscious sedation was performed with the prescribed dosages and duration as above in the presence of an independent trained radiology nurse to assist in the monitoring of the patient. EKG and oximetry remained stable throughout the procedure. The patient tolerated the procedure well and there were no complications. The patient was sent to Radiology Outpatient Unit in stable condition. CONCLUSION: 1. Uncomplicated CT guided bone marrow aspirate. 2. Uncomplicated CT guided bone marrow biopsy. Monroe Solitario MD on February 15, 2017 at 7:39 Board Certified Radiologist. This report was verified electronically.
--- NOTE | 2017-02-15 08:49 | HHI.PR ---
Subjective Remarks Follow-up atrial fibrillation, weakness, pancytopenia. Patient states that she feels okay today. Still very weak. Denies chest pain, dyspnea, nausea, vomiting. Objective Vitals Vital Signs Date Time Temp Pulse Resp B/P (MAP) Pulse Ox O2 Delivery O2 Flow Rate FiO2 02/15/17 07:48 Nasal Cannula 2.00 02/15/17 04:00 97.4 85 18 113/64 (80) 100 02/15/17 00:15 110 02/15/17 00:00 98.0 84 20 114/61 (78) 100 02/14/17 20:00 97.3 108 18 100/57 (71) 100 02/14/17 20:00 Nasal Cannula 2.00 02/14/17 20:00 109 02/14/17 16:11 124 02/14/17 16:00 97.4 98 20 102/72 (82) 100 02/14/17 12:00 97.6 107 20 99/62 (74) 99 02/14/17 11:58 109 I/O 02/14/17 02/14/17 02/14/17 02/15/17 02/15/17 02/15/17 07:00 15:00 23:00 07:00 15:00 23:00 Intake Total 720 ml Balance 720 ml Intake Oral 720 ml # Voids 2 Result Diagram: 02/14/17 0603 02/14/17 0603 Imaging Last Impressions Chest X-Ray 02/10/17 0000 Signed Impressions: Service Date/Time: Friday, February 10, 2017 21:12 - CONCLUSION: 1. Moderate to large left pleural effusion and small right pleural effusion. 2. Bibasilar atelectasis and/or infiltrates. 3. Mild cardiomegaly. 4. Degenerative changes and scoliosis of the thoracic spine. Chad Mcmillan MD Bone Biopsy CT 02/10/17 0000 Signed Impressions: Service Date/Time: Monday, February 13, 2017 16:15 - CONCLUSION: 1. Uncomplicated CT guided bone marrow aspirate. 2. Uncomplicated CT guided bone marrow biopsy. Monroe Solitario MD Head CT 02/03/17 0000 Signed Impressions: Service Date/Time: Friday, February 03, 2017 16:25 - CONCLUSION: Periventricular white matter changes otherwise negative. Raf Lindsay MD FACR Objective Remarks General: No acute distress. Heart: Irregular rhythm. 2-3/6 aortic stenosis murmur. Lungs: Clear to auscultation bilaterally. No wheezes, rales, or rhonchi. Breathing is nonlabored. Abdomen: Soft, nontender, nondistended. Extremities: Trace bilateral lower extremity edema. Psych: Alert and oriented. Procedures 02/13/17 bone marrow biopsy Urinary Catheter: No Vascular Central Line Catheter: No A/P Problem List: (1) UTI (urinary tract infection) ICD Code: N39.0 - Urinary tract infection, site not specified Status: Acute (2) Hypokalemia ICD Code: E87.6 - Hypokalemia (3) Severe sepsis ICD Code: A41.9 - Sepsis, unspecified organism; R65.20 - Severe sepsis without septic shock (4) Encephalopathy ICD Code: G93.40 - Encephalopathy, unspecified (5) Aortic stenosis ICD Code: I35.0 - Nonrheumatic aortic (valve) stenosis Status: Chronic (6) COPD (chronic obstructive pulmonary disease) ICD Code: J44.9 - Chronic obstructive pulmonary disease, unspecified Status: Chronic (7) pancytopenia, etiology undetermined, suspect MDS (8) Physical deconditioning ICD Code: R53.81 - Other malaise Status: Chronic Assessment and Plan 1. Severe sepsis secondary to UTI: Culture growing multidrug resistant Enterobacter cloacae. Status post course of imipenem. Infectious disease has signed off. 2. Severe aortic stenosis: Failing medical management. May be a candidate for TAVR following rehab, but not at this time. Echocardiogram from December 2016 shows normal EF. 3. Atrial fibrillation: Continue digoxin. Heparin drip per hematology. Coumadin restarted. Will need to be on heparin drip until INR is therapeutic 48 hours. 4. Thrombocytopenia/pancytopenia: Appreciate hematology recommendations. Status post bone marrow biopsy, pathology pending. 5. Acute encephalopathy secondary to sepsis: Improved. CT head negative. 6. COPD, chronic respiratory failure: Status post recent thoracotomy. Continue nebulizer treatments, oxygen, prednisone. Appreciate pulmonology recommendations. 7. Hypokalemia: Improved. Continue potassium supplementation. 8. Deconditioning: Continue physical therapy, occupational therapy. 9. DVT prophylaxis: Heparin drip, coumadin. Discharge Planning Will need SNF/rehab. Plan for discharge when INR has been therapeutic for 48 hours and heparin drip can be discontinued. Problem Qualifiers (1) UTI (urinary tract infection): Qualified Codes: N30.00 - Acute cystitis without hematuria (2) Aortic stenosis: Qualified Codes: I35.0 - Nonrheumatic aortic (valve) stenosis Kaiden Ireland MD Feb 15, 2017 08:48
[2017-02-15 08:51] LABS: AUTOMATED NEUTROPHIL # 1.8 TH/MM3 (1.8-7.7); BASOPHIL % 0.4 % (0.0-2.0); EOSINOPHIL % 0.6 % (0.0-4.0); HEMATOCRIT 21.2 % (35.0-46.0); LYMPH % 18.7 % (9.0-44.0); LYMPHOCYTE # 0.6 TH/MM3 (1.0-4.8); MEAN CELL VOLUME 105.8 FL (80.0-100.0); MEAN CORPUSCULAR HEMOGLOBIN 35.1 PG (27.0-34.0); MEAN CORPUSCULAR HGB CONC 33.2 % (32.0-36.0); MONO % 26.8 % (0.0-8.0); NEUT % 53.5 % (16.0-70.0); PLATELET COUNT 93 TH/MM3 (150-450); RED BLOOD COUNT 2.01 MIL/MM3 (4.00-5.30); RED CELL DISTRIBUTION WIDTH 21.6 % (11.6-17.2); WHITE BLOOD COUNT 3.4 TH/MM3 (4.0-11.0)
[2017-02-15 08:57] LABS: APTT (PATIENT) 60.3 SEC (24.3-30.1)
[2017-02-15 08:58] LABS: HEMO FLAGS AUTO DIFF
[2017-02-15] MEDS: TIOTROPIUM BROMIDE 18 MCG INH INH SCH (09:25)
[2017-02-15] MEDS: SODIUM CHLORIDE 0.9% FLUSH 10 ML FLUSH IV FLUSH SCH ×2 (09:26→21:44)
[2017-02-15] MEDS: FERROUS SULFATE 300 MG /5ML UDC PO SCH (09:26)
[2017-02-15] MEDS: DIGOXIN 0.125 MG TAB PO SCH (09:27)
[2017-02-15] MEDS: FUROSEMIDE 20 MG TAB PO SCH ×2 (09:27→17:00)
[2017-02-15] MEDS: TAMSULOSIN HCL 0.4 MG CAP PO SCH (09:27)
[2017-02-15] MEDS: MAGNESIUM OXIDE 400 MG TAB PO SCH ×2 (09:27→21:44)
[2017-02-15] MEDS: POTASSIUM CHLORIDE 10 MEQ CAP PO SCH ×3 (09:27→17:01)
[2017-02-15] MEDS: predniSONE 5 MG TAB PO SCH (09:27)
[2017-02-15 09:42] LABS: PLATELET ESTIMATE SMEAR LOW (NORMAL); PLATELET MORPHOLOGY NORMAL (NORMAL); SCAN/DIFF AUTO DIFF CONFIRMED
[2017-02-15] MEDS: WARFARIN SOD 2 MG TAB PO SCH (16:00)
--- NOTE | 2017-02-15 17:17 | PD.CARD.PN ---
Subjective Subjective Remarks alert in nad Objective Medications Current Medications Medications (Trade) Dose Ordered Sig/Armin Route Start Time Stop Time Status Last Admin (NS Flush) 2 ml UNSCH PRN IV FLUSH 01/31/17 04:45 (NS Flush) 2 ml BID IV FLUSH 01/31/17 09:00 02/15/17 09:26 (Tylenol) 650 mg Q4H PRN PO 01/31/17 04:45 02/01/17 09:57 (Zofran Inj) 4 mg Q6H PRN IVP 01/31/17 04:45 (Narcan Inj) 0.4 mg UNSCH PRN IV PUSH 01/31/17 04:45 (Milk Of Magnesia Liq) 30 ml Q12H PRN PO 01/31/17 04:45 (Senokot) 17.2 mg Q12H PRN PO 01/31/17 04:45 (Dulcolax Supp) 10 mg DAILY PRN RECTAL 01/31/17 04:45 (Lactulose Liq) 30 ml DAILY PRN PO 01/31/17 04:45 (Urecholine) 25 mg Q8HR PO 01/31/17 06:00 02/15/17 12:07 (Percocet 10-325 Mg) 1 tab Q4H PRN PO 01/31/17 04:45 02/15/17 17:00 (Flomax) 0.4 mg DAILY PO 01/31/17 09:00 02/15/17 09:27 (Spiriva Inh) 18 mcg DAILY INH 01/31/17 09:00 02/15/17 09:25 (KCl) 20 meq TID PO 01/31/17 13:00 02/15/17 17:01 (Duoneb Neb) 1 ampule QID NEB PRN NEB 01/31/17 12:00 02/01/17 18:51 (Mag-Ox) 400 mg Q12HR PO 02/01/17 21:00 02/15/17 09:27 (Ferrous Sulfate Liq) 300 mg DAILY PO 02/05/17 09:00 02/15/17 09:26 (Lanoxin) 0.125 mg DAILY PO 02/05/17 09:00 02/15/17 09:27 (Deltasone) 5 mg DAILY PO 02/07/17 09:00 02/15/17 09:27 (Lasix) 20 mg BID@09,18 PO 02/08/17 09:00 02/15/17 17:00 (Cardizem) 30 mg Q6HR PO 02/08/17 11:00 02/15/17 17:00 Heparin Sodium/ Dextrose 250 ml @ 12 mls/hr TITRATE PRN IV 02/14/17 00:15 02/14/17 22:55 (Coumadin) 2 mg DAILY@16 PO 02/14/17 16:00 02/15/17 16:00 Vital Signs / I&O Vital Signs Date Time Temp Pulse Resp B/P (MAP) Pulse Ox O2 Delivery O2 Flow Rate FiO2 02/15/17 16:03 98.2 87 18 123/65 (84) 100 02/15/17 13:42 18 02/15/17 12:03 97.8 89 19 109/57 (74) 100 02/15/17 08:03 98.1 107 19 111/63 (79) 94 02/15/17 07:48 Nasal Cannula 2.00 02/15/17 04:00 97.4 85 18 113/64 (80) 100 02/15/17 00:15 110 02/15/17 00:00 98.0 84 20 114/61 (78) 100 02/14/17 20:00 97.3 108 18 100/57 (71) 100 02/14/17 20:00 Nasal Cannula 2.00 02/14/17 20:00 109 I/O 02/14/17 02/14/17 02/14/17 02/15/17 02/15/17 02/15/17 07:00 15:00 23:00 07:00 15:00 23:00 Intake Total 720 ml Balance 720 ml Intake Oral 720 ml # Voids 2 Physical Exam GENERAL: SKIN: Warm and dry. HEAD: Normocephalic. EYES: No scleral icterus. No injection or drainage. NECK: Supple, trachea midline. No JVD or lymphadenopathy. CARDIOVASCULAR: Regular rate and rhythm without murmurs, gallops, or rubs. RESPIRATORY: Breath sounds equal bilaterally. No accessory muscle use. GASTROINTESTINAL: Abdomen soft, non-tender, nondistended. MUSCULOSKELETAL: No cyanosis, or edema. BACK: Nontender without obvious deformity. No CVA tenderness. Laboratory Laboratory Tests Test 02/15/17 08:23 White Blood Count 3.4 TH/MM3 Red Blood Count 2.01 MIL/MM3 Hemoglobin 7.0 GM/DL Hematocrit 21.2 % Mean Corpuscular Volume 105.8 FL Mean Corpuscular Hemoglobin 35.1 PG Mean Corpuscular Hemoglobin Concent 33.2 % Red Cell Distribution Width 21.6 % Platelet Count 93 TH/MM3 Mean Platelet Volume 9.4 FL Neutrophils (%) (Auto) 53.5 % Lymphocytes (%) (Auto) 18.7 % Monocytes (%) (Auto) 26.8 % Eosinophils (%) (Auto) 0.6 % Basophils (%) (Auto) 0.4 % Neutrophils # (Auto) 1.8 TH/MM3 Lymphocytes # (Auto) 0.6 TH/MM3 Monocytes # (Auto) 0.9 TH/MM3 Eosinophils # (Auto) 0.0 TH/MM3 Basophils # (Auto) 0.0 TH/MM3 CBC Comment AUTO DIFF Differential Comment AUTO DIFF CONFIRMED Platelet Estimate LOW Platelet Morphology Comment NORMAL Prothrombin Time 10.0 SEC Prothromb Time International Ratio 1.0 RATIO Activated Partial Thromboplast Time 60.3 SEC Assessment and Plan Problem List: (1) Aortic stenosis ICD Codes: I35.0 - Nonrheumatic aortic (valve) stenosis Status: Chronic (2) COPD (chronic obstructive pulmonary disease) ICD Codes: J44.9 - Chronic obstructive pulmonary disease, unspecified Status: Chronic (3) Pleural effusion on left ICD Codes: J90 - Pleural effusion, not elsewhere classified Status: Acute (4) Pulmonary HTN ICD Codes: I27.20 - Pulmonary hypertension, unspecified (5) pancytopenia, etiology undetermined, suspect MDS (6) new atrial fibrillation, RVR (7) moderately severe COPD (8) congestive heart failure, persistent pleural effusions Assessment and Plan 1.) Severe - failing medical management, continue lasix as tolerated, f/u ct surg and palliative care consults, bnp, bmp in am; d/w Dr Recinos 02/05/17, patient probably not candidate for tavr due to multiple co morbidities, eval by Dr Bustamante, candidate for tavr, pending bm bx results and improvement in comorbidities, can go to rehab with outpatient f/u for tavr work up,.patient appears motivated to have tavr 2.) Afib - on heparin bridge to coumadin, consider blood transfusion Problem Qualifiers (1) Aortic stenosis: Qualified Codes: I35.0 - Nonrheumatic aortic (valve) stenosis Sd Kirk MD Feb 15, 2017 17:17
--- NOTE | 2017-02-15 17:37 | HHI.PR ---
Subjective Remarks Alert and has No complaints..Had BM biopsy and result pending. On o2 2 L. Leg edema is less. Able to ambulate Objective Vital Signs Date Time Temp Pulse Resp B/P (MAP) Pulse Ox O2 Delivery O2 Flow Rate FiO2 02/15/17 16:03 98.2 87 18 123/65 (84) 100 02/15/17 13:42 18 02/15/17 12:03 97.8 89 19 109/57 (74) 100 02/15/17 08:03 98.1 107 19 111/63 (79) 94 02/15/17 07:48 Nasal Cannula 2.00 02/15/17 04:00 97.4 85 18 113/64 (80) 100 02/15/17 00:15 110 02/15/17 00:00 98.0 84 20 114/61 (78) 100 02/14/17 20:00 97.3 108 18 100/57 (71) 100 02/14/17 20:00 Nasal Cannula 2.00 02/14/17 20:00 109 I/O 02/14/17 02/14/17 02/14/17 02/15/17 02/15/17 02/15/17 07:00 15:00 23:00 07:00 15:00 23:00 Intake Total 720 ml Balance 720 ml Intake Oral 720 ml # Voids 2 Result Diagram: 02/15/17 0823 02/14/17 0603 Objective Remarks GENERAL: This is an averagely built middle-aged white female who is pale and Alert. HEENT: Head normocephalic. Pupils are reactive and equal. Tongue moist. Throat is clear. NECK: No bruits. No venous distension. Trachea midline. No thyroid enlargement. CHEST: diminished movements of the left chest. Breath sounds diminished over the left mid and lower chest with wheezes. CARDIAC: Heart sounds are regular S1-S2 with a systolic ejection murmur 3/6 at the left sternal border. ABDOMEN: Soft, protuberant without masses. No organomegaly. EXTREMITIES: 1 + edema. Decreased pulses. No calf tenderness. NEUROLOGIC: Reflexes 1+. The patient does move all extremities well with no gross motor deficits. SKIN: No lesions noted. Assessment and Plan Assessment and Plan IMPRESSION 1. Chronic bilateral leg edema (lymphedema). 2. Sepsis with UTI 3. COPD and chronic bronchitis 4. Severe deconditioning. 5. Status post VAT thoracotomy left chest with decortication of chronic loculated effusion 6. Atelectasis left lower lung. 7. Possible CHF. Plan : 1. Continue daily Diuretic Lasix . 2. O2 at 2 L. 3. Nebs BID , duoneb.PRN 4. PT and OT. 5. coumadin for anticoagulation 6. Await BM Biopsy report. 7. Transfer to Rehab soon. Venessa Chung MD Feb 15, 2017 17:37
[2017-02-15] MEDS: HEPARIN-D5W 25,000 U/250 ML 250 ML IV PRN (21:43)
--- NOTE | 2017-02-15 23:10 | PD.ONC.PN ---
Subjective Subjective Remarks weak/deconditioned resting comfortably BM bx results pending Objective Data Date Time Temp Pulse Resp B/P (MAP) Pulse Ox O2 Delivery O2 Flow Rate FiO2 02/15/17 20:36 97.5 82 18 104/62 (76) 100 02/15/17 17:49 18 02/15/17 16:03 98.2 87 18 123/65 (84) 100 02/15/17 12:03 97.8 89 19 109/57 (74) 100 02/15/17 08:03 98.1 107 19 111/63 (79) 94 02/15/17 07:48 Nasal Cannula 2.00 02/15/17 04:00 97.4 85 18 113/64 (80) 100 02/15/17 00:15 110 02/15/17 00:00 98.0 84 20 114/61 (78) 100 Result Diagram: 02/15/17 0823 02/14/17 0603 Laboratory Results Laboratory Tests Test 02/15/17 08:23 White Blood Count 3.4 TH/MM3 Red Blood Count 2.01 MIL/MM3 Hemoglobin 7.0 GM/DL Hematocrit 21.2 % Mean Corpuscular Volume 105.8 FL Mean Corpuscular Hemoglobin 35.1 PG Mean Corpuscular Hemoglobin Concent 33.2 % Red Cell Distribution Width 21.6 % Platelet Count 93 TH/MM3 Mean Platelet Volume 9.4 FL Neutrophils (%) (Auto) 53.5 % Lymphocytes (%) (Auto) 18.7 % Monocytes (%) (Auto) 26.8 % Eosinophils (%) (Auto) 0.6 % Basophils (%) (Auto) 0.4 % Neutrophils # (Auto) 1.8 TH/MM3 Lymphocytes # (Auto) 0.6 TH/MM3 Monocytes # (Auto) 0.9 TH/MM3 Eosinophils # (Auto) 0.0 TH/MM3 Basophils # (Auto) 0.0 TH/MM3 CBC Comment AUTO DIFF Differential Comment AUTO DIFF CONFIRMED Platelet Estimate LOW Platelet Morphology Comment NORMAL Prothrombin Time 10.0 SEC Prothromb Time International Ratio 1.0 RATIO Activated Partial Thromboplast Time 60.3 SEC Administered Medications Medications (Trade) Dose Ordered Sig/Armin Route PRN Reason Start Time Stop Time Status Last Admin Dose Admin Sodium Chloride (NS Flush) 2 ml BID IV FLUSH 01/31/17 09:00 02/15/17 21:44 Acetaminophen (Tylenol) 650 mg Q4H PRN PO TEMP > 100.4 01/31/17 04:45 02/01/17 09:57 Bethanechol Chloride (Urecholine) 25 mg Q8HR PO 01/31/17 06:00 02/15/17 21:44 Oxycodone/ Acetaminophen (Percocet 10-325 Mg) 1 tab Q4H PRN PO PAIN SCALE 5-10 01/31/17 04:45 02/15/17 21:45 Tamsulosin HCl (Flomax) 0.4 mg DAILY PO 01/31/17 09:00 02/15/17 09:27 Tiotropium [place] (Spiriva Inh) 18 mcg DAILY INH 01/31/17 09:00 02/15/17 09:25 Potassium Chloride (KCl) 20 meq TID PO 01/31/17 13:00 02/15/17 17:01 Albuterol/ Ipratropium (Duoneb Neb) 1 ampule QID NEB PRN NEB SOB/WHEEZING 01/31/17 12:00 02/01/17 18:51 Magnesium Oxide (Mag-Ox) 400 mg Q12HR PO 02/01/17 21:00 02/15/17 21:44 Ferrous Sulfate (Ferrous Sulfate Liq) 300 mg DAILY PO 02/05/17 09:00 02/15/17 09:26 Digoxin (Lanoxin) 0.125 mg DAILY PO 02/05/17 09:00 02/15/17 09:27 Prednisone (Deltasone) 5 mg DAILY PO 02/07/17 09:00 02/15/17 09:27 Furosemide (Lasix) 20 mg BID@,18 PO 02/08/17 09:00 02/15/17 17:00 Diltiazem HCl (Cardizem) 30 mg Q6HR PO 02/08/17 11:00 02/15/17 17:00 Heparin Sodium/ Dextrose 250 ml @ 12 mls/hr TITRATE PRN IV Coagulation Management 02/14/17 00:15 02/15/17 21:43 Warfarin Sodium (Coumadin) 2 mg DAILY@16 PO 02/14/17 16:00 02/15/17 16:00 Objective Remarks GENERAL: chronically ill appearing SKIN: Warm and dry. LYMPHATIC: No adenopathy. CARDIOVASCULAR: Regular rate and rhythm without murmurs. RESPIRATORY: Breath sounds equal bilaterally. No accessory muscle use. GASTROINTESTINAL: Abdomen soft, non-tender, nondistended. EXTREMITIES: No cyanosis, or edema. Assessment/Plan Problem List: (1) Aortic stenosis ICD Codes: I35.0 - Nonrheumatic aortic (valve) stenosis Status: Chronic Plan: on heparin bridge to cuomadin -- Dr. Bustamante has declined TAVR for now -- Continue heparin until INR has been therapeutic for 48 ours -- She appears to be not a candidate for TAVR due to multiple comorbidities. -- If she is considered not a candidate for surgery, Cardiology is recommending hospice. (2) pancytopenia, etiology undetermined, suspect MDS Plan: -- Patient likely has MDS . This is not biopsy proven. --Bone marrow biopsy planned for 02/13 (3) new atrial fibrillation, RVR Assessment 56 year-old female with pancytopenia found to have severe aortic stenosis Plan continue heparin and Coumadin Bone marrow bx pending Problem Qualifiers (1) Aortic stenosis: Qualified Codes: I35.0 - Nonrheumatic aortic (valve) stenosis Wicho Yun MD Feb 15, 2017 23:10
[2017-02-16] VITALS (10 sets, daily range): BP systolic 103–115; BP diastolic 57–68; PULSE 76–121; RESP 16–19; TEMP 97.4–98.3; O2SAT 92–100
[2017-02-16] MEDS: DILTIAZEM HCL 30 MG TAB PO SCH ×5 (05:09→22:59)
[2017-02-16] MEDS: BETHANECHOL CHL 25 MG TAB PO SCH ×3 (05:09→23:00)
[2017-02-16] MEDS: oxyCODONE/ACETAMINOPHEN 10 MG/325 MG TAB PO PRN ×5 (05:10→23:00)
[2017-02-16 08:28] LABS: PROTHROMBIN TIME - PATIENT 10.2 SEC (9.8-11.6)
--- NOTE | 2017-02-16 08:31 | HHI.PR ---
Subjective Remarks Follow-up weakness, pancytopenia. Other than feeling weak, the patient has no complaints at this time. Denies chest pain or dyspnea. Objective Vitals Vital Signs Date Time Temp Pulse Resp B/P (MAP) Pulse Ox O2 Delivery O2 Flow Rate FiO2 02/16/17 04:54 98.0 95 16 111/67 (82) 92 02/16/17 04:00 120 02/16/17 00:51 98.2 84 16 103/57 (72) 95 02/16/17 00:00 97 02/15/17 20:36 97.5 82 18 104/62 (76) 100 02/15/17 20:00 Nasal Cannula 2.00 02/15/17 20:00 93 02/15/17 17:49 18 02/15/17 16:03 98.2 87 18 123/65 (84) 100 02/15/17 12:03 97.8 89 19 109/57 (74) 100 I/O 02/15/17 02/15/17 02/15/17 02/16/17 02/16/17 02/16/17 07:00 15:00 23:00 07:00 15:00 23:00 Intake Total 480 ml Balance 480 ml Intake Oral 480 ml # Voids 2 3 2 # Bowel Movements 0 0 Result Diagram: 02/15/17 0823 02/14/17 0603 Imaging Last Impressions Chest X-Ray 02/10/17 0000 Signed Impressions: Service Date/Time: Friday, February 10, 2017 21:12 - CONCLUSION: 1. Moderate to large left pleural effusion and small right pleural effusion. 2. Bibasilar atelectasis and/or infiltrates. 3. Mild cardiomegaly. 4. Degenerative changes and scoliosis of the thoracic spine. Chad Mcmillan MD Bone Biopsy CT 02/10/17 0000 Signed Impressions: Service Date/Time: Monday, February 13, 2017 16:15 - CONCLUSION: 1. Uncomplicated CT guided bone marrow aspirate. 2. Uncomplicated CT guided bone marrow biopsy. Monroe Solitario MD Head CT 02/03/17 0000 Signed Impressions: Service Date/Time: Friday, February 03, 2017 16:25 - CONCLUSION: Periventricular white matter changes otherwise negative. Raf Lindsay MD FACR Objective Remarks General: No acute distress. Heart: Irregular rhythm. 2-3/6 aortic stenosis murmur. Lungs: Clear to auscultation bilaterally. No wheezes, rales, or rhonchi. Breathing is nonlabored. Abdomen: Soft, nontender, nondistended. Extremities: Trace bilateral lower extremity edema. Psych: Alert and oriented. Skin: Multiple areas of contusion/ecchymosis on extremities. Procedures 02/13/17 bone marrow biopsy Urinary Catheter: No Vascular Central Line Catheter: No A/P Problem List: (1) UTI (urinary tract infection) ICD Code: N39.0 - Urinary tract infection, site not specified Status: Acute (2) Hypokalemia ICD Code: E87.6 - Hypokalemia (3) Severe sepsis ICD Code: A41.9 - Sepsis, unspecified organism; R65.20 - Severe sepsis without septic shock (4) Encephalopathy ICD Code: G93.40 - Encephalopathy, unspecified (5) Aortic stenosis ICD Code: I35.0 - Nonrheumatic aortic (valve) stenosis Status: Chronic (6) COPD (chronic obstructive pulmonary disease) ICD Code: J44.9 - Chronic obstructive pulmonary disease, unspecified Status: Chronic (7) pancytopenia, etiology undetermined, suspect MDS (8) Physical deconditioning ICD Code: R53.81 - Other malaise Status: Chronic Assessment and Plan 1. Severe sepsis secondary to UTI: Culture growing multidrug resistant Enterobacter cloacae. Status post course of imipenem. Infectious disease has signed off. 2. Severe aortic stenosis: Failing medical management. May be a candidate for TAVR following rehab, but not at this time. Echocardiogram from December 2016 shows normal EF. 3. Atrial fibrillation: Continue digoxin. Heparin drip per hematology. Continue Coumadin. Will need to be on heparin drip until INR is therapeutic 48 hours. 4. Thrombocytopenia/pancytopenia: Appreciate hematology recommendations. Status post bone marrow biopsy, pathology pending. 5. Acute encephalopathy secondary to sepsis: Improved. CT head negative. 6. COPD, chronic respiratory failure: Status post recent thoracotomy. Continue nebulizer treatments, oxygen, prednisone. Appreciate pulmonology recommendations. 7. Hypokalemia: Improved. Continue potassium supplementation. 8. Deconditioning: Continue physical therapy, occupational therapy. 9. DVT prophylaxis: Heparin drip, coumadin. Discharge Planning Will need SNF/rehab. Plan for discharge when INR has been therapeutic for 48 hours and heparin drip can be discontinued. Problem Qualifiers (1) UTI (urinary tract infection): Qualified Codes: N30.00 - Acute cystitis without hematuria (2) Aortic stenosis: Qualified Codes: I35.0 - Nonrheumatic aortic (valve) stenosis Kaiden Ireland MD Feb 16, 2017 08:31
[2017-02-16] MEDS: FERROUS SULFATE 300 MG /5ML UDC PO SCH (08:32)
[2017-02-16] MEDS: predniSONE 5 MG TAB PO SCH (08:32)
[2017-02-16] MEDS: SODIUM CHLORIDE 0.9% FLUSH 10 ML FLUSH IV FLUSH SCH ×2 (08:32→23:00)
[2017-02-16] MEDS: FUROSEMIDE 20 MG TAB PO SCH ×2 (08:33→17:42)
[2017-02-16] MEDS: TAMSULOSIN HCL 0.4 MG CAP PO SCH (08:33)
[2017-02-16] MEDS: POTASSIUM CHLORIDE 10 MEQ CAP PO SCH ×3 (08:34→17:42)
[2017-02-16] MEDS: DIGOXIN 0.125 MG TAB PO SCH (08:34)
[2017-02-16 08:40] LABS: AUTOMATED NEUTROPHIL # 1.6 TH/MM3 (1.8-7.7); BASOPHIL % 0.3 % (0.0-2.0); EOSINOPHIL % 0.4 % (0.0-4.0); HEMATOCRIT 22.4 % (35.0-46.0); LYMPH % 23.2 % (9.0-44.0); LYMPHOCYTE # 0.7 TH/MM3 (1.0-4.8); MEAN CELL VOLUME 105.1 FL (80.0-100.0); MEAN CORPUSCULAR HEMOGLOBIN 35.3 PG (27.0-34.0); MEAN CORPUSCULAR HGB CONC 33.6 % (32.0-36.0); MONO % 24.9 % (0.0-8.0); NEUT % 51.2 % (16.0-70.0); PLATELET COUNT 94 TH/MM3 (150-450); RED BLOOD COUNT 2.13 MIL/MM3 (4.00-5.30); RED CELL DISTRIBUTION WIDTH 21.4 % (11.6-17.2); WHITE BLOOD COUNT 3.1 TH/MM3 (4.0-11.0)
[2017-02-16] MEDS: TIOTROPIUM BROMIDE 18 MCG INH INH SCH (08:40)
[2017-02-16 08:42] LABS: HEMO FLAGS AUTO DIFF
[2017-02-16] MEDS: MAGNESIUM OXIDE 400 MG TAB PO SCH ×2 (08:42→22:59)
[2017-02-16 08:51] LABS: APTT (PATIENT) 55.5 SEC (24.3-30.1)
[2017-02-16 09:25] LABS: ACANTHOCYTES OCC (NORMAL)
[2017-02-16 09:26] LABS: PLATELET ESTIMATE SMEAR LOW (NORMAL); PLATELET MORPHOLOGY NORMAL (NORMAL); SCAN/DIFF AUTO DIFF CONFIRMED
--- NOTE | 2017-02-16 15:24 | PD.CARD.PN ---
Subjective Subjective Remarks alert in nad Objective Medications Current Medications Medications (Trade) Dose Ordered Sig/Armin Route Start Time Stop Time Status Last Admin (NS Flush) 2 ml UNSCH PRN IV FLUSH 01/31/17 04:45 (NS Flush) 2 ml BID IV FLUSH 01/31/17 09:00 02/16/17 08:32 (Tylenol) 650 mg Q4H PRN PO 01/31/17 04:45 02/01/17 09:57 (Zofran Inj) 4 mg Q6H PRN IVP 01/31/17 04:45 (Narcan Inj) 0.4 mg UNSCH PRN IV PUSH 01/31/17 04:45 (Milk Of Magnesia Liq) 30 ml Q12H PRN PO 01/31/17 04:45 (Senokot) 17.2 mg Q12H PRN PO 01/31/17 04:45 (Dulcolax Supp) 10 mg DAILY PRN RECTAL 01/31/17 04:45 (Lactulose Liq) 30 ml DAILY PRN PO 01/31/17 04:45 (Urecholine) 25 mg Q8HR PO 01/31/17 06:00 02/16/17 13:23 (Percocet 10-325 Mg) 1 tab Q4H PRN PO 01/31/17 04:45 02/16/17 13:24 (Flomax) 0.4 mg DAILY PO 01/31/17 09:00 02/16/17 08:33 (Spiriva Inh) 18 mcg DAILY INH 01/31/17 09:00 02/16/17 08:40 (KCl) 20 meq TID PO 01/31/17 13:00 02/16/17 12:43 (Duoneb Neb) 1 ampule QID NEB PRN NEB 01/31/17 12:00 02/01/17 18:51 (Mag-Ox) 400 mg Q12HR PO 02/01/17 21:00 02/16/17 08:42 (Ferrous Sulfate Liq) 300 mg DAILY PO 02/05/17 09:00 02/16/17 08:32 (Lanoxin) 0.125 mg DAILY PO 02/05/17 09:00 02/16/17 08:34 (Deltasone) 5 mg DAILY PO 02/07/17 09:00 02/16/17 08:32 (Lasix) 20 mg BID@09,18 PO 02/08/17 09:00 02/16/17 08:33 (Cardizem) 30 mg Q6HR PO 02/08/17 11:00 02/16/17 12:42 Heparin Sodium/ Dextrose 250 ml @ 12 mls/hr TITRATE PRN IV 02/14/17 00:15 02/15/17 21:43 (Coumadin) 2 mg DAILY@16 PO 02/14/17 16:00 02/15/17 16:00 Vital Signs / I&O Vital Signs Date Time Temp Pulse Resp B/P (MAP) Pulse Ox O2 Delivery O2 Flow Rate FiO2 02/16/17 14:24 14 02/16/17 12:11 98.1 99 18 112/67 (82) 100 02/16/17 11:12 102 02/16/17 08:30 Nasal Cannula 2.00 02/16/17 08:03 98.3 109 18 104/64 (77) 100 02/16/17 04:54 98.0 95 16 111/67 (82) 92 02/16/17 04:00 120 02/16/17 00:51 98.2 84 16 103/57 (72) 95 02/16/17 00:00 97 02/15/17 20:36 97.5 82 18 104/62 (76) 100 02/15/17 20:00 Nasal Cannula 2.00 02/15/17 20:00 93 02/15/17 16:03 98.2 87 18 123/65 (84) 100 I/O 02/15/17 02/15/17 02/15/17 02/16/17 02/16/17 02/16/17 07:00 15:00 23:00 07:00 15:00 23:00 Intake Total 480 ml Balance 480 ml Intake Oral 480 ml # Voids 2 3 2 # Bowel Movements 0 0 Physical Exam GENERAL: SKIN: Warm and dry. HEAD: Normocephalic. EYES: No scleral icterus. No injection or drainage. NECK: Supple, trachea midline. No JVD or lymphadenopathy. CARDIOVASCULAR: Regular rate and rhythm without murmurs, gallops, or rubs. RESPIRATORY: Breath sounds equal bilaterally. No accessory muscle use. GASTROINTESTINAL: Abdomen soft, non-tender, nondistended. MUSCULOSKELETAL: No cyanosis, or edema. BACK: Nontender without obvious deformity. No CVA tenderness. Laboratory Laboratory Tests Test 02/16/17 07:45 02/16/17 08:22 Prothrombin Time 10.2 SEC Prothromb Time International Ratio 1.0 RATIO White Blood Count 3.1 TH/MM3 Red Blood Count 2.13 MIL/MM3 Hemoglobin 7.5 GM/DL Hematocrit 22.4 % Mean Corpuscular Volume 105.1 FL Mean Corpuscular Hemoglobin 35.3 PG Mean Corpuscular Hemoglobin Concent 33.6 % Red Cell Distribution Width 21.4 % Platelet Count 94 TH/MM3 Mean Platelet Volume 9.5 FL Neutrophils (%) (Auto) 51.2 % Lymphocytes (%) (Auto) 23.2 % Monocytes (%) (Auto) 24.9 % Eosinophils (%) (Auto) 0.4 % Basophils (%) (Auto) 0.3 % Neutrophils # (Auto) 1.6 TH/MM3 Lymphocytes # (Auto) 0.7 TH/MM3 Monocytes # (Auto) 0.8 TH/MM3 Eosinophils # (Auto) 0.0 TH/MM3 Basophils # (Auto) 0.0 TH/MM3 CBC Comment AUTO DIFF Differential Comment AUTO DIFF CONFIRMED Platelet Estimate LOW Platelet Morphology Comment NORMAL Ovalocytes Acanthocytes OCC Activated Partial Thromboplast Time 55.5 SEC Assessment and Plan Problem List: (1) Aortic stenosis ICD Codes: I35.0 - Nonrheumatic aortic (valve) stenosis Status: Chronic (2) COPD (chronic obstructive pulmonary disease) ICD Codes: J44.9 - Chronic obstructive pulmonary disease, unspecified Status: Chronic (3) Pleural effusion on left ICD Codes: J90 - Pleural effusion, not elsewhere classified Status: Acute (4) Pulmonary HTN ICD Codes: I27.20 - Pulmonary hypertension, unspecified (5) pancytopenia, etiology undetermined, suspect MDS (6) new atrial fibrillation, RVR (7) moderately severe COPD (8) congestive heart failure, persistent pleural effusions Assessment and Plan 1.) Severe - failing medical management, continue lasix as tolerated, f/u ct surg and palliative care consults, bnp, bmp in am; d/w Dr Recinos 02/05/17, patient probably not candidate for tavr due to multiple co morbidities, eval by Dr Bustamante, candidate for tavr, pending bm bx results and improvement in comorbidities, can go to rehab with outpatient f/u for tavr work up,.patient appears motivated to have tavr 2.) Afib - on heparin bridge to coumadin, consider blood transfusion Problem Qualifiers (1) Aortic stenosis: Qualified Codes: I35.0 - Nonrheumatic aortic (valve) stenosis Sd Kirk MD Feb 16, 2017 15:24
[2017-02-16] MEDS: WARFARIN SOD 2 MG TAB PO SCH ×2 (16:00→17:05)
[2017-02-16] MEDS: HEPARIN-D5W 25,000 U/250 ML 250 ML IV PRN (17:00)
--- NOTE | 2017-02-16 19:45 | HHI.PR ---
Subjective Remarks Feels Ok..Had BM biopsy and result pending. On o2 2 L. Leg edema is less. Able to ambulate Objective Vital Signs Date Time Temp Pulse Resp B/P (MAP) Pulse Ox O2 Delivery O2 Flow Rate FiO2 02/16/17 18:57 12 02/16/17 16:10 97.6 111 19 111/60 (77) 100 02/16/17 15:52 121 02/16/17 12:11 98.1 99 18 112/67 (82) 100 02/16/17 11:12 102 02/16/17 08:30 Nasal Cannula 2.00 02/16/17 08:03 98.3 109 18 104/64 (77) 100 02/16/17 04:54 98.0 95 16 111/67 (82) 92 02/16/17 04:00 120 02/16/17 00:51 98.2 84 16 103/57 (72) 95 02/16/17 00:00 97 02/15/17 20:36 97.5 82 18 104/62 (76) 100 02/15/17 20:00 Nasal Cannula 2.00 02/15/17 20:00 93 I/O 02/15/17 02/15/17 02/15/17 02/16/17 02/16/17 02/16/17 07:00 15:00 23:00 07:00 15:00 23:00 Intake Total 480 ml 750 ml Balance 480 ml 750 ml Intake Oral 480 ml 500 ml IV Total 250 ml # Voids 2 3 2 3 # Bowel Movements 0 0 0 Result Diagram: 02/16/17 0822 02/14/17 0603 Objective Remarks GENERAL: This is an averagely built middle-aged white female who is pale and Alert. HEENT: Head normocephalic. Pupils are reactive and equal. Tongue moist. Throat is clear. NECK: No bruits. No venous distension. Trachea midline. No thyroid enlargement. CHEST: diminished movements of the left chest. Breath sounds diminished over the left mid and lower chest with occ wheezes. CARDIAC: Heart sounds are regular S1-S2 with a systolic ejection murmur 3/6 at the left sternal border. ABDOMEN: Soft, protuberant without masses. No organomegaly. EXTREMITIES: 1 + edema. Decreased pulses. No calf tenderness. NEUROLOGIC: Reflexes 1+. The patient does move all extremities well with no gross motor deficits. SKIN: No lesions noted. Assessment and Plan Assessment and Plan IMPRESSION 1. Chronic bilateral leg edema (lymphedema). 2. Sepsis with UTI 3. COPD and chronic bronchitis 4. Severe deconditioning. 5. Status post VAT thoracotomy left chest with decortication of chronic loculated effusion 6. Atelectasis left lower lung. 7. Possible CHF. Plan : 1. Continue daily Diuretic Lasix . 2. O2 at 2 L. 3. Nebs BID , duoneb.PRN 4. PT and OT. 5. coumadin for anticoagulation 6. Await BM Biopsy report. 7. CBC,BMP, CXR. Venessa Chung MD Feb 16, 2017 19:45
[2017-02-17] VITALS (10 sets, daily range): BP systolic 101–118; BP diastolic 56–85; PULSE 62–100; RESP 14–22; TEMP 97.2–98.2; O2SAT 99–100
[2017-02-17] MEDS: oxyCODONE/ACETAMINOPHEN 10 MG/325 MG TAB PO PRN ×5 (04:36→22:10)
[2017-02-17] MEDS: BETHANECHOL CHL 25 MG TAB PO SCH ×3 (04:36→21:56)
--- NOTE | 2017-02-17 05:30 | RADRPT ---
EXAM DATE/TIME: 02/17/2017 04:33 [facility] COMPARISON: CHEST SINGLE AP, February 03, 2017, 6:17. INDICATIONS : Effusion. MEDICAL HISTORY : UTI, lung mass, aneurysm. Chronic obstructive pulmonary disease. Congestive heart failure. SURGICAL HISTORY : Thoracotomy ENCOUNTER: Subsequent ACUITY: 2 weeks PAIN SCORE: 8/10 LOCATION: Left chest FINDINGS: Single AP view of the chest. Extensive circumferential left-sided pleural opacity again seen along wi th left lower lobe consolidation versus atelectasis. Appearance of the left lung is unchanged. Small right pleural effusion is new. Patchy right lower lobe consolidation versus atelectasis is new. Cardi omediastinal silhouette unchanged. CONCLUSION: No change in extensive left-sided pleural based opacity and left lower lung consolidation versus atel ectasis. New right lung base opacity and new small right pleural effusion. Raheel Owen MD on February 17, 2017 at 5:28 Board Certified Radiologist. This report was verified electronically.
[2017-02-17] MEDS: DILTIAZEM HCL 30 MG TAB PO SCH ×3 (05:50→17:40)
[2017-02-17 07:46] LABS: APTT (PATIENT) 66.8 SEC (24.3-30.1); INTERNATIONAL NORMALIZED RATIO 1.1 RATIO; PROTHROMBIN TIME - PATIENT 10.7 SEC (9.8-11.6)
[2017-02-17 07:59] LABS: HEMATOCRIT 21.2 % (35.0-46.0); MEAN CELL VOLUME 104.7 FL (80.0-100.0); MEAN CORPUSCULAR HEMOGLOBIN 34.4 PG (27.0-34.0); MEAN CORPUSCULAR HGB CONC 32.8 % (32.0-36.0); PLATELET COUNT 96 TH/MM3 (150-450); RED BLOOD COUNT 2.02 MIL/MM3 (4.00-5.30); RED CELL DISTRIBUTION WIDTH 20.9 % (11.6-17.2); WHITE BLOOD COUNT 3.4 TH/MM3 (4.0-11.0)
[2017-02-17 08:00] LABS: REVIEW FLAG FINAL
[2017-02-17] MEDS: FUROSEMIDE 20 MG TAB PO SCH ×2 (08:58→17:40)
[2017-02-17] MEDS: predniSONE 5 MG TAB PO SCH (08:59)
[2017-02-17] MEDS: POTASSIUM CHLORIDE 10 MEQ CAP PO SCH ×3 (08:59→17:39)
[2017-02-17] MEDS: DIGOXIN 0.125 MG TAB PO SCH (08:59)
[2017-02-17] MEDS: TAMSULOSIN HCL 0.4 MG CAP PO SCH (08:59)
[2017-02-17] MEDS: FERROUS SULFATE 300 MG /5ML UDC PO SCH (08:59)
[2017-02-17] MEDS: MAGNESIUM OXIDE 400 MG TAB PO SCH ×2 (09:00→21:56)
[2017-02-17] MEDS: TIOTROPIUM BROMIDE 18 MCG INH INH SCH (09:01)
[2017-02-17] MEDS: SODIUM CHLORIDE 0.9% FLUSH 10 ML FLUSH IV FLUSH SCH ×2 (09:01→21:00)
--- NOTE | 2017-02-17 09:32 | HHI.PR ---
Subjective Remarks Follow up pancytopenia, aortic stenosis, weakness. Patient still feels weak, but otherwise feels a little better today. No specific complaints at this time. Objective Vitals Vital Signs Date Time Temp Pulse Resp B/P (MAP) Pulse Ox O2 Delivery O2 Flow Rate FiO2 02/17/17 08:43 97.5 83 22 101/56 (71) 100 02/17/17 04:00 95 02/17/17 04:00 98.0 83 21 118/70 (86) 100 02/17/17 00:00 98.2 80 20 106/66 (79) 100 02/17/17 00:00 79 02/16/17 20:00 89 02/16/17 20:00 97.4 76 18 115/68 (84) 95 02/16/17 20:00 Nasal Cannula 2.00 02/16/17 18:57 12 02/16/17 16:10 97.6 111 19 111/60 (77) 100 02/16/17 15:52 121 02/16/17 12:11 98.1 99 18 112/67 (82) 100 02/16/17 11:12 102 I/O 02/16/17 02/16/17 02/16/17 02/17/17 02/17/17 02/17/17 07:00 15:00 23:00 07:00 15:00 23:00 Intake Total 750 ml 400 ml Balance 750 ml 400 ml Intake Oral 500 ml 400 ml IV Total 250 ml # Voids 2 3 3 # Bowel Movements 0 0 0 Result Diagram: 02/17/17 0614 02/14/17 0603 Imaging Last Impressions Chest X-Ray 02/17/17 0600 Signed Impressions: Service Date/Time: Friday, February 17, 2017 04:33 - CONCLUSION: No change in extensive left-sided pleural based opacity and left lower lung consolidation versus atelectasis. New right lung base opacity and new small right pleural effusion. Raheel Owen MD Bone Biopsy CT 02/10/17 0000 Signed Impressions: Service Date/Time: Monday, February 13, 2017 16:15 - CONCLUSION: 1. Uncomplicated CT guided bone marrow aspirate. 2. Uncomplicated CT guided bone marrow biopsy. Monroe Solitario MD Head CT 02/03/17 0000 Signed Impressions: Service Date/Time: Friday, February 03, 2017 16:25 - CONCLUSION: Periventricular white matter changes otherwise negative. Raf Lindsay MD FACR Objective Remarks General: No acute distress. Heart: Irregular rhythm. 2-3/6 aortic stenosis murmur. Lungs: Clear to auscultation bilaterally. No wheezes, rales, or rhonchi. Breathing is nonlabored. Abdomen: Soft, nontender, nondistended. Extremities: Trace to 1+ bilateral lower extremity edema. Psych: Alert and oriented. Skin: Multiple areas of contusion/ecchymosis on extremities. Procedures 02/13/17 bone marrow biopsy Urinary Catheter: No Vascular Central Line Catheter: No A/P Problem List: (1) UTI (urinary tract infection) ICD Code: N39.0 - Urinary tract infection, site not specified Status: Acute (2) Hypokalemia ICD Code: E87.6 - Hypokalemia (3) Severe sepsis ICD Code: A41.9 - Sepsis, unspecified organism; R65.20 - Severe sepsis without septic shock (4) Encephalopathy ICD Code: G93.40 - Encephalopathy, unspecified (5) Aortic stenosis ICD Code: I35.0 - Nonrheumatic aortic (valve) stenosis Status: Chronic (6) COPD (chronic obstructive pulmonary disease) ICD Code: J44.9 - Chronic obstructive pulmonary disease, unspecified Status: Chronic (7) pancytopenia, etiology undetermined, suspect MDS (8) Physical deconditioning ICD Code: R53.81 - Other malaise Status: Chronic Assessment and Plan 02/17/17: No change. Awaiting therapeutic INR. Awaiting pathology from bone marrow biopsy. 1. Severe sepsis secondary to UTI: Culture growing multidrug resistant Enterobacter cloacae. Status post course of imipenem. Infectious disease has signed off. 2. Severe aortic stenosis: Failing medical management. May be a candidate for TAVR following rehab, but not at this time. Echocardiogram from December 2016 shows normal EF. 3. Atrial fibrillation: Continue digoxin. Heparin drip per hematology. Continue Coumadin. Will need to be on heparin drip until INR is therapeutic 48 hours. 4. Thrombocytopenia/pancytopenia: Appreciate hematology recommendations. Status post bone marrow biopsy, pathology pending. 5. Acute encephalopathy secondary to sepsis: Improved. CT head negative. 6. COPD, chronic respiratory failure: Status post recent thoracotomy. Continue nebulizer treatments, oxygen, prednisone. Appreciate pulmonology recommendations. 7. Hypokalemia: Improved. Continue potassium supplementation. 8. Deconditioning: Continue physical therapy, occupational therapy. 9. DVT prophylaxis: Heparin drip, coumadin. Discharge Planning Will need SNF/rehab. Plan for discharge when INR has been therapeutic for 48 hours and heparin drip can be discontinued. Problem Qualifiers (1) UTI (urinary tract infection): Qualified Codes: N30.00 - Acute cystitis without hematuria (2) Aortic stenosis: Qualified Codes: I35.0 - Nonrheumatic aortic (valve) stenosis Kaiden Ireland MD Feb 17, 2017 09:32
[2017-02-17] MEDS ORDERED: ACETAMINOPHEN 325 MG TAB PO PRN (09:45)
[2017-02-17] MEDS ORDERED: diphenhydrAMINE HCL 25 MG CAP PO PRN (09:45)
--- NOTE | 2017-02-17 10:10 | PD.CARD.PN ---
Subjective Subjective Remarks alert in nad Objective Medications Current Medications Medications (Trade) Dose Ordered Sig/Armin Route Start Time Stop Time Status Last Admin (NS Flush) 2 ml UNSCH PRN IV FLUSH 01/31/17 04:45 (NS Flush) 2 ml BID IV FLUSH 01/31/17 09:00 02/17/17 09:01 (Tylenol) 650 mg Q4H PRN PO 01/31/17 04:45 02/01/17 09:57 (Zofran Inj) 4 mg Q6H PRN IVP 01/31/17 04:45 (Narcan Inj) 0.4 mg UNSCH PRN IV PUSH 01/31/17 04:45 (Milk Of Magnesia Liq) 30 ml Q12H PRN PO 01/31/17 04:45 (Senokot) 17.2 mg Q12H PRN PO 01/31/17 04:45 (Dulcolax Supp) 10 mg DAILY PRN RECTAL 01/31/17 04:45 (Lactulose Liq) 30 ml DAILY PRN PO 01/31/17 04:45 02/16/17 17:41 (Urecholine) 25 mg Q8HR PO 01/31/17 06:00 02/17/17 04:36 (Percocet 10-325 Mg) 1 tab Q4H PRN PO 01/31/17 04:45 02/17/17 09:00 (Flomax) 0.4 mg DAILY PO 01/31/17 09:00 02/17/17 08:59 (Spiriva Inh) 18 mcg DAILY INH 01/31/17 09:00 02/17/17 09:01 (KCl) 20 meq TID PO 01/31/17 13:00 02/17/17 08:59 (Duoneb Neb) 1 ampule QID NEB PRN NEB 01/31/17 12:00 02/01/17 18:51 (Mag-Ox) 400 mg Q12HR PO 02/01/17 21:00 02/17/17 09:00 (Ferrous Sulfate Liq) 300 mg DAILY PO 02/05/17 09:00 02/17/17 08:59 (Lanoxin) 0.125 mg DAILY PO 02/05/17 09:00 02/17/17 08:59 (Deltasone) 5 mg DAILY PO 02/07/17 09:00 02/17/17 08:59 (Lasix) 20 mg BID@09,18 PO 02/08/17 09:00 02/17/17 08:58 (Cardizem) 30 mg Q6HR PO 02/08/17 11:00 02/17/17 05:50 Heparin Sodium/ Dextrose 250 ml @ 12 mls/hr TITRATE PRN IV 02/14/17 00:15 02/16/17 17:00 (Coumadin) 2 mg DAILY@16 PO 02/14/17 16:00 02/16/17 17:05 (Tylenol) 650 mg Q4H PRN PO 02/17/17 09:45 (Benadryl) 25 mg Q4H PRN PO 02/17/17 09:45 Vital Signs / I&O Vital Signs Date Time Temp Pulse Resp B/P (MAP) Pulse Ox O2 Delivery O2 Flow Rate FiO2 02/17/17 08:43 97.5 83 22 101/56 (71) 100 02/17/17 04:00 95 02/17/17 04:00 98.0 83 21 118/70 (86) 100 02/17/17 00:00 98.2 80 20 106/66 (79) 100 02/17/17 00:00 79 02/16/17 20:00 89 02/16/17 20:00 97.4 76 18 115/68 (84) 95 02/16/17 20:00 Nasal Cannula 2.00 02/16/17 18:57 12 02/16/17 16:10 97.6 111 19 111/60 (77) 100 02/16/17 15:52 121 02/16/17 12:11 98.1 99 18 112/67 (82) 100 02/16/17 11:12 102 I/O 02/16/17 02/16/17 02/16/17 02/17/17 02/17/17 02/17/17 07:00 15:00 23:00 07:00 15:00 23:00 Intake Total 750 ml 400 ml Balance 750 ml 400 ml Intake Oral 500 ml 400 ml IV Total 250 ml # Voids 2 3 3 # Bowel Movements 0 0 0 Physical Exam GENERAL: SKIN: Warm and dry. HEAD: Normocephalic. EYES: No scleral icterus. No injection or drainage. NECK: Supple, trachea midline. No JVD or lymphadenopathy. CARDIOVASCULAR: Regular rate and rhythm without murmurs, gallops, or rubs. RESPIRATORY: Breath sounds equal bilaterally. No accessory muscle use. GASTROINTESTINAL: Abdomen soft, non-tender, nondistended. MUSCULOSKELETAL: No cyanosis, or edema. BACK: Nontender without obvious deformity. No CVA tenderness. Laboratory Laboratory Tests Test 02/17/17 06:14 White Blood Count 3.4 TH/MM3 Red Blood Count 2.02 MIL/MM3 Hemoglobin 7.0 GM/DL Hematocrit 21.2 % Mean Corpuscular Volume 104.7 FL Mean Corpuscular Hemoglobin 34.4 PG Mean Corpuscular Hemoglobin Concent 32.8 % Red Cell Distribution Width 20.9 % Platelet Count 96 TH/MM3 Mean Platelet Volume 9.7 FL Prothrombin Time 10.7 SEC Prothromb Time International Ratio 1.1 RATIO Activated Partial Thromboplast Time 66.8 SEC Imaging Last 24 hours Impressions Chest X-Ray 02/17/17 0600 Signed Impressions: Service Date/Time: Friday, February 17, 2017 04:33 - CONCLUSION: No change in extensive left-sided pleural based opacity and left lower lung consolidation versus atelectasis. New right lung base opacity and new small right pleural effusion. Raheel Owen MD Assessment and Plan Problem List: (1) Aortic stenosis ICD Codes: I35.0 - Nonrheumatic aortic (valve) stenosis Status: Chronic (2) COPD (chronic obstructive pulmonary disease) ICD Codes: J44.9 - Chronic obstructive pulmonary disease, unspecified Status: Chronic (3) Pleural effusion on left ICD Codes: J90 - Pleural effusion, not elsewhere classified Status: Acute (4) Pulmonary HTN ICD Codes: I27.20 - Pulmonary hypertension, unspecified (5) pancytopenia, etiology undetermined, suspect MDS (6) new atrial fibrillation, RVR (7) moderately severe COPD (8) congestive heart failure, persistent pleural effusions Assessment and Plan 1.) Severe - failing medical management, continue lasix as tolerated, f/u ct surg and palliative care consults, bnp, bmp in am; d/w Dr Recinos 02/05/17, patient probably not candidate for tavr due to multiple co morbidities, eval by Dr Bustamante, candidate for tavr, pending bm bx results and improvement in comorbidities, can go to rehab with outpatient f/u for tavr work up,.patient appears motivated to have tavr 2.) Afib - on heparin bridge to coumadin, consider blood transfusion, she may need higher dose of coumadin Problem Qualifiers (1) Aortic stenosis: Qualified Codes: I35.0 - Nonrheumatic aortic (valve) stenosis Sd Kirk MD Feb 17, 2017 10:10
[2017-02-17] MEDS: HEPARIN-D5W 25,000 U/250 ML 250 ML IV PRN (12:48)
[2017-02-17] MEDS ORDERED: SODIUM CHLOR 0.9% 250 ML INJ 250 ML IV ONE (15:00)
--- NOTE | 2017-02-17 15:38 | PD.ONC.PN ---
Subjective Subjective Remarks feels tired wants to pursue aggressive care no fevers/no bleeding Objective Data Date Time Temp Pulse Resp B/P (MAP) Pulse Ox O2 Delivery O2 Flow Rate FiO2 02/17/17 14:40 97.3 83 14 103/63 100 02/17/17 14:28 98.1 100 14 116/72 100 02/17/17 14:23 14 02/17/17 14:23 14 02/17/17 13:22 98.1 100 14 116/72 (87) 100 02/17/17 12:00 97.2 96 22 115/85 (95) 100 02/17/17 11:56 88 02/17/17 11:20 Nasal Cannula 2.00 02/17/17 08:43 97.5 83 22 101/56 (71) 100 02/17/17 04:00 95 02/17/17 04:00 98.0 83 21 118/70 (86) 100 02/17/17 00:00 98.2 80 20 106/66 (79) 100 02/17/17 00:00 79 02/16/17 20:00 89 02/16/17 20:00 97.4 76 18 115/68 (84) 95 02/16/17 20:00 Nasal Cannula 2.00 02/16/17 16:10 97.6 111 19 111/60 (77) 100 02/16/17 15:52 121 02/17/17 02/17/17 02/17/17 07:00 15:00 23:00 Intake Total 400 ml Balance 400 ml Result Diagram: 02/17/17 0614 02/14/17 0603 Laboratory Results Laboratory Tests Test 02/17/17 06:14 White Blood Count 3.4 TH/MM3 Red Blood Count 2.02 MIL/MM3 Hemoglobin 7.0 GM/DL Hematocrit 21.2 % Mean Corpuscular Volume 104.7 FL Mean Corpuscular Hemoglobin 34.4 PG Mean Corpuscular Hemoglobin Concent 32.8 % Red Cell Distribution Width 20.9 % Platelet Count 96 TH/MM3 Mean Platelet Volume 9.7 FL Prothrombin Time 10.7 SEC Prothromb Time International Ratio 1.1 RATIO Activated Partial Thromboplast Time 66.8 SEC Imaging Studies Last 24 hours Impressions Chest X-Ray 02/17/17 0600 Signed Impressions: Service Date/Time: Friday, February 17, 2017 04:33 - CONCLUSION: No change in extensive left-sided pleural based opacity and left lower lung consolidation versus atelectasis. New right lung base opacity and new small right pleural effusion. Raheel Owen MD Administered Medications Medications (Trade) Dose Ordered Sig/Armin Route PRN Reason Start Time Stop Time Status Last Admin Dose Admin Sodium Chloride (NS Flush) 2 ml BID IV FLUSH 01/31/17 09:00 02/17/17 09:01 Acetaminophen (Tylenol) 650 mg Q4H PRN PO TEMP > 100.4 01/31/17 04:45 02/01/17 09:57 Lactulose (Lactulose Liq) 30 ml DAILY PRN PO SEVERE CONSITIPATION 01/31/17 04:45 02/16/17 17:41 Bethanechol Chloride (Urecholine) 25 mg Q8HR PO 01/31/17 06:00 02/17/17 13:00 Oxycodone/ Acetaminophen (Percocet 10-325 Mg) 1 tab Q4H PRN PO PAIN SCALE 5-10 01/31/17 04:45 02/17/17 13:00 Tamsulosin HCl (Flomax) 0.4 mg DAILY PO 01/31/17 09:00 02/17/17 08:59 Tiotropium [place] (Spiriva Inh) 18 mcg DAILY INH 01/31/17 09:00 02/17/17 09:01 Potassium Chloride (KCl) 20 meq TID PO 01/31/17 13:00 02/17/17 12:46 Albuterol/ Ipratropium (Duoneb Neb) 1 ampule QID NEB PRN NEB SOB/WHEEZING 01/31/17 12:00 02/01/17 18:51 Magnesium Oxide (Mag-Ox) 400 mg Q12HR PO 02/01/17 21:00 02/17/17 09:00 Ferrous Sulfate (Ferrous Sulfate Liq) 300 mg DAILY PO 02/05/17 09:00 02/17/17 08:59 Digoxin (Lanoxin) 0.125 mg DAILY PO 02/05/17 09:00 02/17/17 08:59 Prednisone (Deltasone) 5 mg DAILY PO 02/07/17 09:00 02/17/17 08:59 Furosemide (Lasix) 20 mg BID@09,18 PO 02/08/17 09:00 02/17/17 08:58 Diltiazem HCl (Cardizem) 30 mg Q6HR PO 02/08/17 11:00 02/17/17 12:46 Heparin Sodium/ Dextrose 250 ml @ 12 mls/hr TITRATE PRN IV Coagulation Management 02/14/17 00:15 02/17/17 12:48 Warfarin Sodium (Coumadin) 2 mg DAILY@16 PO 02/14/17 16:00 02/16/17 17:05 Acetaminophen (Tylenol) 650 mg Q4H PRN PO SEE LABEL COMMENTS 02/17/17 09:45 02/17/17 13:29 Diphenhydramine HCl (Benadryl) 25 mg Q4H PRN PO SEE LABEL COMMENTS 02/17/17 09:45 02/17/17 13:29 Objective Remarks GENERAL: acutely ill SKIN: Warm and dry. HEAD: Normocephalic. EYES: No scleral icterus. No injection or drainage. NECK: Supple, trachea midline. No JVD or lymphadenopathy. LYMPHATIC: No adenopathy. CARDIOVASCULAR: Regular rate and rhythm without murmurs. RESPIRATORY: Breath sounds equal bilaterally. No accessory muscle use. GASTROINTESTINAL: Abdomen soft, non-tender, nondistended. EXTREMITIES: No cyanosis, or edema. Assessment/Plan Problem List: (1) Aortic stenosis ICD Codes: I35.0 - Nonrheumatic aortic (valve) stenosis Status: Chronic Plan: on heparin bridge to [facility] -- Dr. Bustamante has declined TAVR for now -- Continue heparin until INR has been therapeutic for 48 ours -- She appears to be not a candidate for TAVR due to multiple comorbidities. -- If she is considered not a candidate for surgery, Cardiology is recommending hospice. (2) pancytopenia, etiology undetermined, suspect MDS Plan: -- Patient likely has MDS . This is not biopsy proven. --Bone marrow biopsy planned for 02/13 (3) new atrial fibrillation, RVR Assessment 56 year-old female with pancytopenia found to have severe aortic stenosis Plan 1. Severe Anemia: transfuse 1 unit of pRBC 2. Mild Leukopenia and Thrombocytopenia: Bone marrow biopsy shows hypocellular marrow--? evolving MDS. cytogenetic pending 3. Severe : management per cardiology 4. Continue Heparin and coumadin INR still low. will give additional dose of coumadin 5. Deconditioning: PT d/w rn o/n events reviewed Multiple co-mobilities in this patient long discusiion goals remain aggressive From MDS standpoint initial therapy would be supportive care. Problem Qualifiers (1) Aortic stenosis: Qualified Codes: I35.0 - Nonrheumatic aortic (valve) stenosis Wicho Yun MD Feb 17, 2017 15:38
--- NOTE | 2017-02-17 16:19 | HHI.HCPN ---
Reason for visit a. To assist with evaluation and management of symptoms including: Dyspnea , weakness b. To assist medical decision maker(s) with: better understanding of current medical conditions; weighing benefits/burdens of medical treatment options; making medical treatment decisions. . Subjective/Interval History INTERVAL NOTE: The patient underwent bone marrow biopsy 02/13/17, and the results are pending. She denies pain at this time, and does not feel dyspneic while at rest. She remains afebrile, and feels quite weak, fatigued. Chest x-ray reveals a new right base opacity, and a small pleural effusion. CV surgery reports that TAVR may be possible if the patient is more stable, is successful at Rehab, and the comorbidities are well controlled (and depending on bone marrow biopsy results). The patient is, in fact, interested in pursuing that. . Family/friend interactions is at the bedside. He and the patient are both optimistic that she can get stronger and perhaps tolerate the TAVR.. . Advance Directives Living Will: Completed, but not made available Health Care Surrogate: Never completed Durable Power of Wire Bound Box Machine Operator: Never completed Objective Vital Signs Date Time Temp Pulse Resp B/P (MAP) Pulse Ox O2 Delivery O2 Flow Rate FiO2 02/17/17 14:40 97.3 83 14 103/63 100 02/17/17 14:28 98.1 100 14 116/72 100 02/17/17 14:23 14 02/17/17 14:23 14 02/17/17 13:22 98.1 100 14 116/72 (87) 100 02/17/17 12:00 97.2 96 22 115/85 (95) 100 02/17/17 11:56 88 02/17/17 11:20 Nasal Cannula 2.00 02/17/17 08:43 97.5 83 22 101/56 (71) 100 02/17/17 04:00 95 02/17/17 04:00 98.0 83 21 118/70 (86) 100 02/17/17 00:00 98.2 80 20 106/66 (79) 100 02/17/17 00:00 79 02/16/17 20:00 89 02/16/17 20:00 97.4 76 18 115/68 (84) 95 02/16/17 20:00 Nasal Cannula 2.00 Intake & Output 02/17/17 02/17/17 07:00 19:00 Intake Total 400 ml Balance 400 ml Intake Oral 400 ml # Voids 3 # Bowel Movements 0 Physical Exam CONSTITUTIONAL/GENERAL: This is a chronically ill, female patient in no acute distress. TUBES/LINES/DRAINS: Nasal oxygen, peripheral IVs CARDIOVASCULAR: Irregular rhythm without murmurs, gallops, or rubs. No JVD. Peripheral pulses diminished. RESPIRATORY/CHEST: Symmetric, but mildly labored respirations. Markedly diminished breath sounds bilateral. No accessory muscles used. GASTROINTESTINAL: Abdomen soft, non-tender, nondistended. Bowel sounds present. MUSCULOSKELETAL: Extremities without clubbing or cyanosis, decreasing edema. No mottling or clubbing. NEUROLOGICAL: Alert and awake. Cognitively sharp. Answering questions, able to make needs known. PSYCHIATRIC: No obvious anxiety/depression. no apparent hallucinations or other psychotic thought process. . Diagnostic Tests Laboratory Laboratory Tests Test 02/15/17 08:23 02/16/17 07:45 02/16/17 08:22 02/17/17 06:14 White Blood Count 3.4 TH/MM3 (4.0-11.0) 3.1 TH/MM3 (4.0-11.0) 3.4 TH/MM3 (4.0-11.0) Red Blood Count 2.01 MIL/MM3 (4.00-5.30) 2.13 MIL/MM3 (4.00-5.30) 2.02 MIL/MM3 (4.00-5.30) Hemoglobin 7.0 GM/DL (11.6-15.3) 7.5 GM/DL (11.6-15.3) 7.0 GM/DL (11.6-15.3) Hematocrit 21.2 % (35.0-46.0) 22.4 % (35.0-46.0) 21.2 % (35.0-46.0) Mean Corpuscular Volume 105.8 FL (80.0-100.0) 105.1 FL (80.0-100.0) 104.7 FL (80.0-100.0) Mean Corpuscular Hemoglobin 35.1 PG (27.0-34.0) 35.3 PG (27.0-34.0) 34.4 PG (27.0-34.0) Mean Corpuscular Hemoglobin Concent 33.2 % (32.0-36.0) 33.6 % (32.0-36.0) 32.8 % (32.0-36.0) Red Cell Distribution Width 21.6 % (11.6-17.2) 21.4 % (11.6-17.2) 20.9 % (11.6-17.2) Platelet Count 93 TH/MM3 (150-450) 94 TH/MM3 (150-450) 96 TH/MM3 (150-450) Mean Platelet Volume 9.4 FL (7.0-11.0) 9.5 FL (7.0-11.0) 9.7 FL (7.0-11.0) Neutrophils (%) (Auto) 53.5 % (16.0-70.0) 51.2 % (16.0-70.0) Lymphocytes (%) (Auto) 18.7 % (9.0-44.0) 23.2 % (9.0-44.0) Monocytes (%) (Auto) 26.8 % (0.0-8.0) 24.9 % (0.0-8.0) Eosinophils (%) (Auto) 0.6 % (0.0-4.0) 0.4 % (0.0-4.0) Basophils (%) (Auto) 0.4 % (0.0-2.0) 0.3 % (0.0-2.0) Neutrophils # (Auto) 1.8 TH/MM3 (1.8-7.7) 1.6 TH/MM3 (1.8-7.7) Lymphocytes # (Auto) 0.6 TH/MM3 (1.0-4.8) 0.7 TH/MM3 (1.0-4.8) Monocytes # (Auto) 0.9 TH/MM3 (0-0.9) 0.8 TH/MM3 (0-0.9) Eosinophils # (Auto) 0.0 TH/MM3 (0-0.4) 0.0 TH/MM3 (0-0.4) Basophils # (Auto) 0.0 TH/MM3 (0-0.2) 0.0 TH/MM3 (0-0.2) CBC Comment AUTO DIFF AUTO DIFF Differential Comment AUTO DIFF CONFIRMED AUTO DIFF CONFIRMED Platelet Estimate LOW (NORMAL) LOW (NORMAL) Platelet Morphology Comment NORMAL (NORMAL) NORMAL (NORMAL) Prothrombin Time 10.0 SEC (9.8-11.6) 10.2 SEC (9.8-11.6) 10.7 SEC (9.8-11.6) Prothromb Time International Ratio 1.0 RATIO 1.0 RATIO 1.1 RATIO Activated Partial Thromboplast Time 60.3 SEC (24.3-30.1) 55.5 SEC (24.3-30.1) 66.8 SEC (24.3-30.1) Ovalocytes (NORMAL) Acanthocytes OCC (NORMAL) Result Diagram: 02/17/17 0614 02/14/17 0603 Imaging Last Impressions Chest X-Ray 02/17/17 0600 Signed Impressions: Service Date/Time: Friday, February 17, 2017 04:33 - CONCLUSION: No change in extensive left-sided pleural based opacity and left lower lung consolidation versus atelectasis. New right lung base opacity and new small right pleural effusion. Raheel Owen MD Bone Biopsy CT 02/10/17 0000 Signed Impressions: Service Date/Time: Monday, February 13, 2017 16:15 - CONCLUSION: 1. Uncomplicated CT guided bone marrow aspirate. 2. Uncomplicated CT guided bone marrow biopsy. Monroe Solitario MD Head CT 02/03/17 0000 Signed Impressions: Service Date/Time: Friday, February 03, 2017 16:25 - CONCLUSION: Periventricular white matter changes otherwise negative. Raf Lindsay MD FACR Procedures Bone marrow biopsy 02/13/17 . 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 Spiritual: The patient says she is spiritual and her own way, but is not affiliated with any nondenominational or clergy, and does not want culvert installer visits. Legal: The patient has capacity for decision-making, and her Feliberto will be the proxy decision-maker when she loses that capacity. Ethical issues impacting care: None . Important Contacts : Feliberto Steven [phone] . 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 With her profound debility and weakness, her overall prognosis is pretty poor. . Code Status: Full Code Plan * FULL CODE; she would accept treatment with life support "for a while but not for a long time since that wouldn't really be on life." At this time, she does want to continue aggressive care at this time including mechanical ventilation and resuscitation; however, she makes it clear that if she is on a ventilator for some period of time and is not going to get better, she would want to have it withdrawn and be allowed to peacefully. * DECISION-MAKING: The patient has capacity for decision-making, and her Feliberto will be the proxy decision-maker when she loses that capacity. * GOALS: Aggressive. Patient is planning to go to rehab upon discharge with the hope that she can become strong enough for aggressive interventions....maybe even TAVR * SYMPTOMS- Patient has weakness and fatigue. She does want to go to Rehab.. * Palliative Care will continue to follow the patient during this hospitalization. . Time Spent Total Floor Time (mins): 29 Face to Face Time (mins): 12 >50% Counseling/Coord of Care: Yes Attestation To help prompt me to consider important information that might be impacting today's encounter and assessment, information from prior notes written by myself or my colleagues may have been "brought forward" into today's note. My signature on this note, however, is an attestation that I personally performed the exam, history, and/or decision-making noted today, and, unless otherwise indicated, the interactions with patient, family, and staff as well as the review of records all occurred today. I also attest that the listed assessment and stated plan reflect my best clinical judgment today based on the combination of historical information, prior notes, and today's exam/ interactions. When time spent is documented, it refers only to time spent today by the signer, or if indicated, combined time spent today by collaborating physician/nurse practitioner. Kayleen Whipple MD Feb 17, 2017 16:18
[2017-02-17] MEDS: WARFARIN SOD 2 MG TAB PO SCH (17:40)
--- NOTE | 2017-02-17 20:27 | HHI.PR ---
Subjective Remarks No complaints. Good output On o2 2 L. Able to sit up. Objective Vital Signs Date Time Temp Pulse Resp B/P (MAP) Pulse Ox O2 Delivery O2 Flow Rate FiO2 02/17/17 18:53 16 02/17/17 16:00 97.9 62 16 114/59 (77) 99 02/17/17 14:40 97.3 83 14 103/63 100 02/17/17 14:28 98.1 100 14 116/72 100 02/17/17 14:23 14 02/17/17 13:22 98.1 100 14 116/72 (87) 100 02/17/17 12:00 97.2 96 22 115/85 (95) 100 02/17/17 11:56 88 02/17/17 11:20 Nasal Cannula 2.00 02/17/17 08:43 97.5 83 22 101/56 (71) 100 02/17/17 04:00 95 02/17/17 04:00 98.0 83 21 118/70 (86) 100 02/17/17 00:00 98.2 80 20 106/66 (79) 100 02/17/17 00:00 79 I/O 02/16/17 02/16/17 02/16/17 02/17/17 02/17/17 02/17/17 07:00 15:00 23:00 07:00 15:00 23:00 Intake Total 750 ml 400 ml 970 ml Balance 750 ml 400 ml 970 ml Intake Oral 500 ml 400 ml 720 ml IV Total 250 ml 150 ml Other 100 ml # Voids 2 3 3 2 # Bowel Movements 0 0 0 Result Diagram: 02/17/17 0614 02/14/17 0603 Objective Remarks GENERAL: This is an averagely built middle-aged white female who is pale and Alert. HEENT: Head normocephalic. Pupils are reactive and equal. Tongue moist. Throat is clear. NECK: No bruits. No venous distension. Trachea midline. No thyroid enlargement. CHEST: diminished movements of the left chest. Breath sounds diminished over the left mid and lower chest . CARDIAC: Heart sounds are regular S1-S2 with a systolic ejection murmur 3/6 at the left sternal border. ABDOMEN: Soft, protuberant without masses. No organomegaly. EXTREMITIES: 1 + edema. Decreased pulses. No calf tenderness. NEUROLOGIC: Reflexes 1+. The patient does move all extremities well with no gross motor deficits. SKIN: No lesions noted. Assessment and Plan Assessment and Plan IMPRESSION 1. Chronic bilateral leg edema (lymphedema). 2. Sepsis with UTI 3. COPD and chronic bronchitis 4. Severe deconditioning. 5. Status post VAT thoracotomy left chest with decortication of chronic loculated effusion 6. Atelectasis left lower lung. 7. Possible CHF. Plan : 1. Continue daily Diuretic . 2. O2 at 2 L. 3. Nebs BID , duoneb.PRN 4. PT and OT. 5. coumadin for anticoagulation 6. To rehab soon Venessa Chung MD Feb 17, 2017 20:27
[2017-02-18] VITALS (8 sets, daily range): BP systolic 97–119; BP diastolic 58–80; PULSE 83–115; RESP 18–20; TEMP 97.4–98.2; O2SAT 99–100
[2017-02-18] MEDS: oxyCODONE/ACETAMINOPHEN 10 MG/325 MG TAB PO PRN ×5 (04:38→23:08)
[2017-02-18] MEDS: BETHANECHOL CHL 25 MG TAB PO SCH ×3 (07:00→21:38)
[2017-02-18] MEDS: DILTIAZEM HCL 30 MG TAB PO SCH ×5 (07:00→23:08)
[2017-02-18] MEDS: TIOTROPIUM BROMIDE 18 MCG INH INH SCH (09:00)
[2017-02-18] MEDS: SODIUM CHLORIDE 0.9% FLUSH 10 ML FLUSH IV FLUSH SCH ×2 (09:00→21:38)
--- NOTE | 2017-02-18 09:05 | PD.CARD.PN ---
Subjective Subjective Remarks alert in nad Objective Medications Current Medications Medications (Trade) Dose Ordered Sig/Armin Route Start Time Stop Time Status Last Admin (NS Flush) 2 ml UNSCH PRN IV FLUSH 01/31/17 04:45 (NS Flush) 2 ml BID IV FLUSH 01/31/17 09:00 02/17/17 09:01 (Tylenol) 650 mg Q4H PRN PO 01/31/17 04:45 02/01/17 09:57 (Zofran Inj) 4 mg Q6H PRN IVP 01/31/17 04:45 (Narcan Inj) 0.4 mg UNSCH PRN IV PUSH 01/31/17 04:45 (Milk Of Magnesia Liq) 30 ml Q12H PRN PO 01/31/17 04:45 (Senokot) 17.2 mg Q12H PRN PO 01/31/17 04:45 (Dulcolax Supp) 10 mg DAILY PRN RECTAL 01/31/17 04:45 (Lactulose Liq) 30 ml DAILY PRN PO 01/31/17 04:45 02/16/17 17:41 (Urecholine) 25 mg Q8HR PO 01/31/17 06:00 02/18/17 07:00 (Percocet 10-325 Mg) 1 tab Q4H PRN PO 01/31/17 04:45 02/18/17 04:38 (Flomax) 0.4 mg DAILY PO 01/31/17 09:00 02/17/17 08:59 (Spiriva Inh) 18 mcg DAILY INH 01/31/17 09:00 02/17/17 09:01 (KCl) 20 meq TID PO 01/31/17 13:00 02/17/17 17:39 (Duoneb Neb) 1 ampule QID NEB PRN NEB 01/31/17 12:00 02/01/17 18:51 (Mag-Ox) 400 mg Q12HR PO 02/01/17 21:00 02/17/17 21:56 (Ferrous Sulfate Liq) 300 mg DAILY PO 02/05/17 09:00 02/17/17 08:59 (Lanoxin) 0.125 mg DAILY PO 02/05/17 09:00 02/17/17 08:59 (Deltasone) 5 mg DAILY PO 02/07/17 09:00 02/17/17 08:59 (Lasix) 20 mg BID@09,18 PO 02/08/17 09:00 02/17/17 17:40 (Cardizem) 30 mg Q6HR PO 02/08/17 11:00 02/18/17 07:00 Heparin Sodium/ Dextrose 250 ml @ 12 mls/hr TITRATE PRN IV 02/14/17 00:15 02/17/17 12:48 (Tylenol) 650 mg Q4H PRN PO 02/17/17 09:45 02/17/17 13:29 (Benadryl) 25 mg Q4H PRN PO 02/17/17 09:45 02/17/17 13:29 (Coumadin Booklet) 1 ONCE ONCE OTHER 02/18/17 16:00 02/18/17 16:01 Pharmacy Profile Note 0 ml @ 0 mls/hr UNSCH OTHER 02/18/17 06:15 (Coumadin) 4 mg DAILY@1600 PO 02/18/17 16:00 Vital Signs / I&O Vital Signs Date Time Temp Pulse Resp B/P (MAP) Pulse Ox O2 Delivery O2 Flow Rate FiO2 02/18/17 08:00 98.1 94 18 119/66 (83) 100 02/18/17 04:00 97.9 106 20 110/74 (86) 100 02/18/17 00:00 98.1 92 18 97/58 (71) 100 02/17/17 20:00 97.8 96 19 108/62 (77) 100 02/17/17 19:20 Nasal Cannula 2.00 02/17/17 18:53 16 02/17/17 16:00 97.9 62 16 114/59 (77) 99 02/17/17 14:40 97.3 83 14 103/63 100 02/17/17 14:28 98.1 100 14 116/72 100 02/17/17 14:23 14 02/17/17 13:22 98.1 100 14 116/72 (87) 100 02/17/17 12:00 97.2 96 22 115/85 (95) 100 02/17/17 11:56 88 02/17/17 11:20 Nasal Cannula 2.00 I/O 02/17/17 02/17/17 02/17/17 02/18/1717 12/16/17 07:00 15:00 23:00 07:00 15:00 23:00 Intake Total 400 ml 970 ml 540 ml Balance 400 ml 970 ml 540 ml Intake Oral 400 ml 720 ml 540 ml IV Total 150 ml Other 100 ml # Voids 3 2 4 # Bowel Movements 0 0 Physical Exam GENERAL: SKIN: Warm and dry. HEAD: Normocephalic. EYES: No scleral icterus. No injection or drainage. NECK: Supple, trachea midline. No JVD or lymphadenopathy. CARDIOVASCULAR: Regular rate and rhythm without murmurs, gallops, or rubs. RESPIRATORY: Breath sounds equal bilaterally. No accessory muscle use. GASTROINTESTINAL: Abdomen soft, non-tender, nondistended. MUSCULOSKELETAL: No cyanosis, or edema. BACK: Nontender without obvious deformity. No CVA tenderness. Assessment and Plan Problem List: (1) Aortic stenosis ICD Codes: I35.0 - Nonrheumatic aortic (valve) stenosis Status: Chronic (2) COPD (chronic obstructive pulmonary disease) ICD Codes: J44.9 - Chronic obstructive pulmonary disease, unspecified Status: Chronic (3) Pleural effusion on left ICD Codes: J90 - Pleural effusion, not elsewhere classified Status: Acute (4) Pulmonary HTN ICD Codes: I27.20 - Pulmonary hypertension, unspecified (5) pancytopenia, etiology undetermined, suspect MDS (6) new atrial fibrillation, RVR (7) moderately severe COPD (8) congestive heart failure, persistent pleural effusions Assessment and Plan 1.) Severe - failing medical management, continue lasix as tolerated, f/u ct surg and palliative care consults, bnp, bmp in am; d/w Dr Recinos 02/05/17, patient probably not candidate for tavr due to multiple co morbidities, eval by Dr Bustamante, candidate for tavr, pending bm bx results and improvement in comorbidities, can go to rehab with outpatient f/u for tavr work up,.patient appears motivated to have tavr 2.) Afib - on heparin bridge to coumadin, s/p blood transfusion, coumadin increased to 4 mg qd, f/u cbc/inr Problem Qualifiers (1) Aortic stenosis: Qualified Codes: I35.0 - Nonrheumatic aortic (valve) stenosis Sd Kirk MD Feb 18, 2017 09:05
[2017-02-18 09:15] LABS: AUTOMATED NEUTROPHIL # 1.8 TH/MM3 (1.8-7.7); BASOPHIL % 0.3 % (0.0-2.0); EOSINOPHIL % 0.4 % (0.0-4.0); HEMATOCRIT 26.2 % (35.0-46.0); LYMPHOCYTE # 1.3 TH/MM3 (1.0-4.8); MEAN CELL VOLUME 99.1 FL (80.0-100.0); MEAN CORPUSCULAR HEMOGLOBIN 33.6 PG (27.0-34.0); MEAN CORPUSCULAR HGB CONC 33.9 % (32.0-36.0); MONO % 21.7 % (0.0-8.0); NEUT % 44.6 % (16.0-70.0); PLATELET COUNT 96 TH/MM3 (150-450); RED BLOOD COUNT 2.64 MIL/MM3 (4.00-5.30); RED CELL DISTRIBUTION WIDTH 23.7 % (11.6-17.2)
[2017-02-18 09:16] LABS: HEMO FLAGS AUTO DIFF
[2017-02-18 09:19] LABS: INTERNATIONAL NORMALIZED RATIO 1.1 RATIO; PROTHROMBIN TIME - PATIENT 11.5 SEC (9.8-11.6)
[2017-02-18 09:19] LABS: APTT (PATIENT) 59.7 SEC (24.3-30.1)
[2017-02-18] MEDS: FERROUS SULFATE 300 MG /5ML UDC PO SCH (09:23)
[2017-02-18] MEDS: TAMSULOSIN HCL 0.4 MG CAP PO SCH (09:24)
[2017-02-18] MEDS: FUROSEMIDE 20 MG TAB PO SCH ×2 (09:24→18:24)
[2017-02-18] MEDS: DIGOXIN 0.125 MG TAB PO SCH (09:24)
[2017-02-18] MEDS: predniSONE 5 MG TAB PO SCH (09:24)
[2017-02-18] MEDS: POTASSIUM CHLORIDE 10 MEQ CAP PO SCH ×3 (09:24→18:23)
[2017-02-18] MEDS: MAGNESIUM OXIDE 400 MG TAB PO SCH ×2 (09:24→21:38)
[2017-02-18 09:31] LABS: BICARBONATE 32.8 MEQ/L (21.0-32.0)
[2017-02-18 09:32] LABS: POTASSIUM 4.6 MEQ/L (3.5-5.1)
[2017-02-18 11:07] LABS: PLATELET ESTIMATE SMEAR LOW (NORMAL); PLATELET MORPHOLOGY NORMAL (NORMAL); SCAN/DIFF AUTO DIFF CONFIRMED
--- NOTE | 2017-02-18 14:43 | HHI.PR ---
Subjective Remarks Follow-up pancytopenia. Feeling stronger after receiving blood transfusion. On heparin drip discussed with RN Objective Vitals Vital Signs Date Time Temp Pulse Resp B/P (MAP) Pulse Ox O2 Delivery O2 Flow Rate FiO2 02/18/17 12:00 97.4 114 18 105/66 (79) 100 02/18/17 08:00 98.1 94 18 119/66 (83) 100 02/18/17 07:15 Nasal Cannula 2.00 02/18/17 04:00 97.9 106 20 110/74 (86) 100 02/18/17 00:00 98.1 92 18 97/58 (71) 100 02/17/17 20:00 97.8 96 19 108/62 (77) 100 02/17/17 19:20 Nasal Cannula 2.00 02/17/17 18:53 16 02/17/17 16:00 97.9 62 16 114/59 (77) 99 I/O 02/17/17 02/17/17 02/17/17 02/18/17 02/18/17 02/18/17 07:00 15:00 23:00 07:00 15:00 23:00 Intake Total 400 ml 970 ml 540 ml Balance 400 ml 970 ml 540 ml Intake Oral 400 ml 720 ml 540 ml IV Total 150 ml Other 100 ml # Voids 3 2 4 # Bowel Movements 0 0 Result Diagram: 02/18/17 0813 02/18/17 0813 Imaging Last Impressions Chest X-Ray 02/17/17 0600 Signed Impressions: Service Date/Time: Friday, February 17, 2017 04:33 - CONCLUSION: No change in extensive left-sided pleural based opacity and left lower lung consolidation versus atelectasis. New right lung base opacity and new small right pleural effusion. Raheel Owen MD Bone Biopsy CT 02/10/17 0000 Signed Impressions: Service Date/Time: Monday, February 13, 2017 16:15 - CONCLUSION: 1. Uncomplicated CT guided bone marrow aspirate. 2. Uncomplicated CT guided bone marrow biopsy. Monroe Solitario MD Head CT 02/03/17 0000 Signed Impressions: Service Date/Time: Friday, February 03, 2017 16:25 - CONCLUSION: Periventricular white matter changes otherwise negative. Raf Lindsay MD FACR Objective Remarks GENERAL: This is an averagely built middle-aged white female who is pale and Alert. HEENT: Head normocephalic. Pupils are reactive and equal. Tongue moist. Throat is clear. CHEST: diminished movements of the left chest. Breath sounds diminished over the left mid and lower chest CARDIAC: Heart sounds are regular S1-S2 with a systolic ejection murmur 3/6 at the left sternal border. ABDOMEN: Soft, protuberant without masses. No organomegaly. EXTREMITIES: 1 + edema. Decreased pulses. No calf tenderness. NEUROLOGIC: Reflexes 1+. The patient does move all extremities well with no gross motor deficits. SKIN: No lesions noted. Procedures 02/13/17 bone marrow biopsy A/P Problem List: (1) UTI (urinary tract infection) ICD Code: N39.0 - Urinary tract infection, site not specified Status: Acute (2) Hypokalemia ICD Code: E87.6 - Hypokalemia Status: Resolved (3) Severe sepsis ICD Code: A41.9 - Sepsis, unspecified organism; R65.20 - Severe sepsis without septic shock Status: Resolved (4) Encephalopathy ICD Code: G93.40 - Encephalopathy, unspecified Status: Resolved (5) Aortic stenosis ICD Code: I35.0 - Nonrheumatic aortic (valve) stenosis Status: Chronic (6) COPD (chronic obstructive pulmonary disease) ICD Code: J44.9 - Chronic obstructive pulmonary disease, unspecified Status: Chronic (7) pancytopenia, etiology undetermined, suspect MDS Status: Acute (8) Physical deconditioning ICD Code: R53.81 - Other malaise Status: Chronic Assessment and Plan 1. Severe sepsis secondary to UTI: Culture growing multidrug resistant Enterobacter cloacae. Status post course of imipenem. Infectious disease has signed off. 2. Severe aortic stenosis: Failing medical management. May be a candidate for TAVR following rehab, but not at this time. Echocardiogram from December 2016 shows normal EF. 3. Atrial fibrillation: Continue digoxin. Heparin drip per hematology. Continue Coumadin. Will need to be on heparin drip until INR is therapeutic 48 hours. 4. Thrombocytopenia/pancytopenia: Appreciate hematology recommendations. 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 Acute encephalopathy secondary to sepsis: CT head negative. Resolved 6. COPD, chronic respiratory failure: Status post recent thoracotomy. Continue nebulizer treatments, oxygen and wean prednisone. Appreciate pulmonology recommendations. 7. Hypokalemia: Improved. Continue potassium supplementation. 8. Deconditioning: Continue physical therapy, occupational therapy. 9. DVT prophylaxis: Heparin drip, coumadin. Discharge Planning Will need SNF/rehab. Plan for discharge when INR has been therapeutic for 48 hours then heparin drip can be discontinued. Problem Qualifiers (1) UTI (urinary tract infection): Qualified Codes: N30.00 - Acute cystitis without hematuria (2) Aortic stenosis: Qualified Codes: I35.0 - Nonrheumatic aortic (valve) stenosis Chung Yadav MD Feb 18, 2017 14:43
[2017-02-18] MEDS ORDERED: PILL SPLITTER OTHER PRN (15:00)
[2017-02-18] MEDS: WARFARIN SOD 4 MG TAB PO SCH (15:55)
[2017-02-19] VITALS (9 sets, daily range): BP systolic 116–141; BP diastolic 60–82; PULSE 75–119; RESP 18; TEMP 97.1–98.7; O2SAT 97–100
[2017-02-19] MEDS: BETHANECHOL CHL 25 MG TAB PO SCH ×3 (05:49→22:46)
[2017-02-19] MEDS: DILTIAZEM HCL 30 MG TAB PO SCH ×3 (05:49→17:47)
[2017-02-19] MEDS: oxyCODONE/ACETAMINOPHEN 10 MG/325 MG TAB PO PRN ×5 (05:49→22:46)
[2017-02-19] MEDS: FERROUS SULFATE 300 MG /5ML UDC PO SCH (08:35)
[2017-02-19] MEDS: TAMSULOSIN HCL 0.4 MG CAP PO SCH (08:36)
[2017-02-19] MEDS: FUROSEMIDE 20 MG TAB PO SCH ×2 (08:36→17:47)
[2017-02-19] MEDS: POTASSIUM CHLORIDE 10 MEQ CAP PO SCH ×3 (08:36→17:50)
[2017-02-19] MEDS: DIGOXIN 0.125 MG TAB PO SCH (08:36)
[2017-02-19] MEDS: predniSONE 5 MG TAB PO SCH (08:37)
[2017-02-19] MEDS: MAGNESIUM OXIDE 400 MG TAB PO SCH ×2 (08:37→20:38)
[2017-02-19] MEDS: TIOTROPIUM BROMIDE 18 MCG INH INH SCH (08:40)
[2017-02-19] MEDS: SODIUM CHLORIDE 0.9% FLUSH 10 ML FLUSH IV FLUSH SCH ×2 (08:42→20:38)
--- NOTE | 2017-02-19 09:24 | PD.CARD.PN ---
Subjective Subjective Remarks alert in nad Objective Medications Current Medications Medications (Trade) Dose Ordered Sig/Armin Route Start Time Stop Time Status Last Admin (NS Flush) 2 ml UNSCH PRN IV FLUSH 01/31/17 04:45 (NS Flush) 2 ml BID IV FLUSH 01/31/17 09:00 02/19/17 08:42 (Tylenol) 650 mg Q4H PRN PO 01/31/17 04:45 02/01/17 09:57 (Zofran Inj) 4 mg Q6H PRN IVP 01/31/17 04:45 (Narcan Inj) 0.4 mg UNSCH PRN IV PUSH 01/31/17 04:45 (Milk Of Magnesia Liq) 30 ml Q12H PRN PO 01/31/17 04:45 (Senokot) 17.2 mg Q12H PRN PO 01/31/17 04:45 (Dulcolax Supp) 10 mg DAILY PRN RECTAL 01/31/17 04:45 (Lactulose Liq) 30 ml DAILY PRN PO 01/31/17 04:45 02/16/17 17:41 (Urecholine) 25 mg Q8HR PO 01/31/17 06:00 02/19/17 05:49 (Percocet 10-325 Mg) 1 tab Q4H PRN PO 01/31/17 04:45 02/19/17 05:49 (Flomax) 0.4 mg DAILY PO 01/31/17 09:00 02/19/17 08:36 (Spiriva Inh) 18 mcg DAILY INH 01/31/17 09:00 02/19/17 08:40 (KCl) 20 meq TID PO 01/31/17 13:00 02/19/17 08:36 (Duoneb Neb) 1 ampule QID NEB PRN NEB 01/31/17 12:00 02/01/17 18:51 (Mag-Ox) 400 mg Q12HR PO 02/01/17 21:00 02/19/17 08:37 (Ferrous Sulfate Liq) 300 mg DAILY PO 02/05/17 09:00 02/19/17 08:35 (Lanoxin) 0.125 mg DAILY PO 02/05/17 09:00 02/19/17 08:36 (Lasix) 20 mg BID@09,18 PO 02/08/17 09:00 02/19/17 08:36 (Cardizem) 30 mg Q6HR PO 02/08/17 11:00 02/19/17 05:49 Heparin Sodium/ Dextrose 250 ml @ 12 mls/hr TITRATE PRN IV 02/14/17 00:15 02/17/17 12:48 (Tylenol) 650 mg Q4H PRN PO 02/17/17 09:45 02/17/17 13:29 (Benadryl) 25 mg Q4H PRN PO 02/17/17 09:45 02/17/17 13:29 Pharmacy Profile Note 0 ml @ 0 mls/hr UNSCH OTHER 02/18/17 06:15 (Coumadin) 4 mg DAILY@1600 PO 02/18/17 16:00 02/18/17 15:55 (Deltasone) 2.5 mg DAILY PO 02/19/17 09:00 02/23/17 08:59 02/19/17 08:37 (Pill Splitter) 1 ea UNSCH PRN OTHER 02/18/17 15:00 Vital Signs / I&O Vital Signs Date Time Temp Pulse Resp B/P (MAP) Pulse Ox O2 Delivery O2 Flow Rate FiO2 02/19/17 08:00 97.7 86 18 121/60 (80) 99 02/19/17 07:15 Nasal Cannula 3.00 02/19/17 04:16 94 02/19/17 04:00 Nasal Cannula 2.00 02/19/17 04:00 98.7 106 18 116/80 (92) 100 02/19/17 00:00 Nasal Cannula 2.00 02/19/17 00:00 98.1 97 18 130/73 (92) 99 02/18/17 23:43 83 02/18/17 20:00 Nasal Cannula 2.00 02/18/17 20:00 97.9 101 18 116/80 (92) 100 02/18/17 19:44 100 02/18/17 16:00 98.2 107 18 117/74 (88) 99 02/18/17 12:00 97.4 114 18 105/66 (79) 100 02/18/17 12:00 115 I/O 02/18/17 02/18/17 02/18/17 02/19/17 02/19/17 02/19/17 07:00 15:00 23:00 07:00 15:00 23:00 Intake Total 540 ml 480 ml 320 ml Balance 540 ml 480 ml 320 ml Intake Oral 540 ml 480 ml 320 ml # Voids 4 2 4 # Bowel Movements 0 0 Physical Exam GENERAL: SKIN: Warm and dry. HEAD: Normocephalic. EYES: No scleral icterus. No injection or drainage. NECK: Supple, trachea midline. No JVD or lymphadenopathy. CARDIOVASCULAR: Regular rate and rhythm without murmurs, gallops, or rubs. RESPIRATORY: Breath sounds equal bilaterally. No accessory muscle use. GASTROINTESTINAL: Abdomen soft, non-tender, nondistended. MUSCULOSKELETAL: No cyanosis, or edema. BACK: Nontender without obvious deformity. No CVA tenderness. Laboratory Laboratory Tests Test 02/19/17 07:50 Assessment and Plan Problem List: (1) Aortic stenosis ICD Codes: I35.0 - Nonrheumatic aortic (valve) stenosis Status: Chronic (2) COPD (chronic obstructive pulmonary disease) ICD Codes: J44.9 - Chronic obstructive pulmonary disease, unspecified Status: Chronic (3) Pleural effusion on left ICD Codes: J90 - Pleural effusion, not elsewhere classified Status: Acute (4) Pulmonary HTN ICD Codes: I27.20 - Pulmonary hypertension, unspecified (5) pancytopenia, etiology undetermined, suspect MDS Status: Acute (6) new atrial fibrillation, RVR (7) moderately severe COPD (8) congestive heart failure, persistent pleural effusions Assessment and Plan 1.) Severe - failing medical management, continue lasix as tolerated, f/u ct surg and palliative care consults, bnp, bmp in am; d/w Dr Recinos 02/05/17, patient probably not candidate for tavr due to multiple co morbidities, eval by Dr Bustamante, candidate for tavr, pending bm bx results and improvement in comorbidities, can go to rehab with outpatient f/u for tavr work up,.patient appears motivated to have tavr 2.) Afib - on heparin bridge to coumadin, s/p blood transfusion, coumadin increased to 4 mg qd, f/u cbc/inr, hgb 8.9 02/18/17 Problem Qualifiers (1) Aortic stenosis: Qualified Codes: I35.0 - Nonrheumatic aortic (valve) stenosis Sd Kirk MD Feb 19, 2017 09:24
[2017-02-19 09:36] LABS: INTERNATIONAL NORMALIZED RATIO 1.2 RATIO; PROTHROMBIN TIME - PATIENT 12.4 SEC (9.8-11.6)
[2017-02-19] MEDS: HEPARIN-D5W 25,000 U/250 ML 250 ML IV PRN (09:46)
--- NOTE | 2017-02-19 10:06 | HHI.PR ---
Subjective Remarks Follow-up A. fib and anticoagulation. No bleeding tolerating heparin drip. Discussed with RN Objective Vitals Vital Signs Date Time Temp Pulse Resp B/P (MAP) Pulse Ox O2 Delivery O2 Flow Rate FiO2 02/19/17 08:00 97.7 86 18 121/60 (80) 99 02/19/17 07:15 Nasal Cannula 3.00 02/19/17 04:16 94 02/19/17 04:00 Nasal Cannula 2.00 02/19/17 04:00 98.7 106 18 116/80 (92) 100 02/19/17 00:00 Nasal Cannula 2.00 02/19/17 00:00 98.1 97 18 130/73 (92) 99 02/18/17 23:43 83 02/18/17 20:00 Nasal Cannula 2.00 02/18/17 20:00 97.9 101 18 116/80 (92) 100 02/18/17 19:44 100 02/18/17 16:00 98.2 107 18 117/74 (88) 99 02/18/17 12:00 97.4 114 18 105/66 (79) 100 02/18/17 12:00 115 I/O 02/18/17 02/18/17 02/18/17 02/19/17 02/19/17 02/19/17 07:00 15:00 23:00 07:00 15:00 23:00 Intake Total 540 ml 480 ml 320 ml Balance 540 ml 480 ml 320 ml Intake Oral 540 ml 480 ml 320 ml # Voids 4 2 4 # Bowel Movements 0 0 Result Diagram: 02/18/1713 02/18/17 0813 Objective Remarks GENERAL: This is an averagely built middle-aged white female who is pale and Alert. CHEST: diminished movements of the left chest. Breath sounds diminished over the left mid and lower chest CARDIAC: Heart sounds are regular S1-S2 with a systolic ejection murmur 3/6 at the left sternal border. ABDOMEN: Soft, protuberant without masses. No organomegaly. EXTREMITIES: 1 + edema. Decreased pulses. No calf tenderness. NEUROLOGIC: Reflexes 1+. The patient does move all extremities well with no gross motor deficits. SKIN: No lesions noted. Procedures 02/13/17 bone marrow biopsy A/P Problem List: (1) UTI (urinary tract infection) ICD Code: N39.0 - Urinary tract infection, site not specified Status: Acute (2) Hypokalemia ICD Code: E87.6 - Hypokalemia Status: Resolved (3) Severe sepsis ICD Code: A41.9 - Sepsis, unspecified organism; R65.20 - Severe sepsis without septic shock Status: Resolved (4) Encephalopathy ICD Code: G93.40 - Encephalopathy, unspecified Status: Resolved (5) Aortic stenosis ICD Code: I35.0 - Nonrheumatic aortic (valve) stenosis Status: Chronic (6) COPD (chronic obstructive pulmonary disease) ICD Code: J44.9 - Chronic obstructive pulmonary disease, unspecified Status: Chronic (7) pancytopenia, etiology undetermined, suspect MDS Status: Acute (8) Physical deconditioning ICD Code: R53.81 - Other malaise Status: Chronic Assessment and Plan 1. Severe sepsis secondary to UTI: Culture with multidrug resistant Enterobacter cloacae. Status post course of imipenem. Infectious disease has signed off. 2. Severe aortic stenosis: Failing medical management. May be a candidate for TAVR following rehab. Echocardiogram from December 2016 shows normal EF. 3. Atrial fibrillation: Continue digoxin. Heparin drip and Coumadin INR 1.2 today. Will need to be on heparin drip until INR is therapeutic 48 hours. 4. Thrombocytopenia/pancytopenia: Appreciate hematology recommendations. 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 Acute encephalopathy secondary to sepsis: CT head negative. Resolved 6. COPD, chronic respiratory failure: Status post recent thoracotomy. Continue nebulizer treatments, oxygen and wean prednisone. Appreciate pulmonology recommendations. 7. Hypokalemia: Improved. Continue potassium supplementation. 8. Deconditioning: Continue physical therapy, occupational therapy. 9. DVT prophylaxis: Heparin drip, coumadin. Discharge Planning Will need SNF/rehab. Plan for discharge when INR has been therapeutic for 48 hours then heparin drip can be discontinued. Problem Qualifiers (1) UTI (urinary tract infection): Qualified Codes: N30.00 - Acute cystitis without hematuria (2) Aortic stenosis: Qualified Codes: I35.0 - Nonrheumatic aortic (valve) stenosis Chung Yadav MD Feb 19, 2017 10:06
[2017-02-19 10:14] LABS: APTT (PATIENT) 64.6 SEC (24.3-30.1)
[2017-02-19] MEDS: WARFARIN SOD 4 MG TAB PO SCH (17:48)
[2017-02-20] VITALS (9 sets, daily range): BP systolic 111–141; BP diastolic 68–86; PULSE 86–123; RESP 16–20; TEMP 97.2–98.1; O2SAT 97–100
[2017-02-20] MEDS: DILTIAZEM HCL 30 MG TAB PO SCH ×5 (00:36→23:17)
[2017-02-20] MEDS: BETHANECHOL CHL 25 MG TAB PO SCH ×3 (05:01→22:18)
[2017-02-20] MEDS: oxyCODONE/ACETAMINOPHEN 10 MG/325 MG TAB PO PRN ×5 (05:01→22:18)
[2017-02-20] MEDS: HEPARIN-D5W 25,000 U/250 ML 250 ML IV PRN ×2 (05:07→23:52)
[2017-02-20] MEDS: TIOTROPIUM BROMIDE 18 MCG INH INH SCH (09:31)
[2017-02-20] MEDS: MAGNESIUM OXIDE 400 MG TAB PO SCH ×2 (09:32→22:18)
[2017-02-20] MEDS: predniSONE 5 MG TAB PO SCH (09:32)
[2017-02-20] MEDS: DIGOXIN 0.125 MG TAB PO SCH (09:32)
[2017-02-20] MEDS: POTASSIUM CHLORIDE 10 MEQ CAP PO SCH ×3 (09:33→17:35)
[2017-02-20] MEDS: FUROSEMIDE 20 MG TAB PO SCH ×2 (09:33→17:35)
[2017-02-20] MEDS: FERROUS SULFATE 300 MG /5ML UDC PO SCH (09:40)
[2017-02-20] MEDS: SODIUM CHLORIDE 0.9% FLUSH 10 ML FLUSH IV FLUSH SCH ×2 (09:44→22:18)
[2017-02-20] MEDS: TAMSULOSIN HCL 0.4 MG CAP PO SCH (09:47)
[2017-02-20 11:06] LABS: HEMATOCRIT 26.7 % (35.0-46.0); MEAN CELL VOLUME 100.2 FL (80.0-100.0); MEAN CORPUSCULAR HEMOGLOBIN 32.9 PG (27.0-34.0); MEAN CORPUSCULAR HGB CONC 32.8 % (32.0-36.0); PLATELET COUNT 99 TH/MM3 (150-450); RED BLOOD COUNT 2.67 MIL/MM3 (4.00-5.30); RED CELL DISTRIBUTION WIDTH 23.1 % (11.6-17.2); WHITE BLOOD COUNT 4.4 TH/MM3 (4.0-11.0)
[2017-02-20 11:10] LABS: REVIEW FLAG FINAL
[2017-02-20 11:12] LABS: INTERNATIONAL NORMALIZED RATIO 1.5 RATIO; PROTHROMBIN TIME - PATIENT 15.4 SEC (9.8-11.6)
[2017-02-20 11:20] LABS: APTT (PATIENT) 76.6 SEC (24.3-30.1)
--- NOTE | 2017-02-20 12:08 | PD.ONC.PN ---
Subjective Subjective Remarks Afebrile overnight. Patient resting in bed. Hopeful that she will be able to leave the hospital soon. Tired of being inside. No pain. Objective Data Date Time Temp Pulse Resp B/P (MAP) Pulse Ox O2 Delivery O2 Flow Rate FiO2 02/20/17 08:00 97.2 103 16 126/86 (99) 100 02/20/17 08:00 Nasal Cannula 2.00 02/20/17 04:00 97.7 94 20 141/72 (95) 97 02/20/17 04:00 Nasal Cannula 2.00 02/20/17 03:49 88 02/20/17 00:00 Nasal Cannula 2.00 02/20/17 00:00 97.4 100 20 113/69 (84) 99 02/19/17 23:48 86 02/19/17 20:00 Nasal Cannula 2.00 02/19/17 20:00 97.4 100 18 129/82 (98) 100 02/19/17 19:40 102 02/19/17 16:00 97.1 117 18 137/73 (94) 97 02/19/17 16:00 103 02/20/17 02/20/17 02/20/17 07:00 15:00 23:00 Intake Total 240 ml Balance 240 ml Result Diagram: 02/20/17 1045 02/18/17 0813 Laboratory Results Laboratory Tests Test 02/20/17 10:45 White Blood Count 4.4 TH/MM3 Red Blood Count 2.67 MIL/MM3 Hemoglobin 8.8 GM/DL Hematocrit 26.7 % Mean Corpuscular Volume 100.2 FL Mean Corpuscular Hemoglobin 32.9 PG Mean Corpuscular Hemoglobin Concent 32.8 % Red Cell Distribution Width 23.1 % Platelet Count 99 TH/MM3 Mean Platelet Volume 9.0 FL Prothrombin Time 15.4 SEC Prothromb Time International Ratio 1.5 RATIO Activated Partial Thromboplast Time 76.6 SEC Administered Medications Medications (Trade) Dose Ordered Sig/Armin Route PRN Reason Start Time Stop Time Status Last Admin Dose Admin Sodium Chloride (NS Flush) 2 ml BID IV FLUSH 01/31/17 09:00 02/20/17 09:44 Acetaminophen (Tylenol) 650 mg Q4H PRN PO TEMP > 100.4 01/31/17 04:45 02/01/17 09:57 Lactulose (Lactulose Liq) 30 ml DAILY PRN PO SEVERE CONSITIPATION 01/31/17 04:45 02/16/17 17:41 Bethanechol Chloride (Urecholine) 25 mg Q8HR PO 01/31/17 06:00 02/20/17 05:01 Oxycodone/ Acetaminophen (Percocet 10-325 Mg) 1 tab Q4H PRN PO PAIN SCALE 5-10 01/31/17 04:45 02/20/17 09:36 Tamsulosin HCl (Flomax) 0.4 mg DAILY PO 01/31/17 09:00 02/20/17 09:47 Tiotropium [place] (Spiriva Inh) 18 mcg DAILY INH 01/31/17 09:00 02/20/17 09:31 Potassium Chloride (KCl) 20 meq TID PO 01/31/17 13:00 02/20/17 09:33 Albuterol/ Ipratropium (Duoneb Neb) 1 ampule QID NEB PRN NEB SOB/WHEEZING 01/31/17 12:00 02/01/17 18:51 Magnesium Oxide (Mag-Ox) 400 mg Q12HR PO 02/01/17 21:00 02/20/17 09:32 Ferrous Sulfate (Ferrous Sulfate Liq) 300 mg DAILY PO 02/05/17 09:00 02/20/17 09:40 Digoxin (Lanoxin) 0.125 mg DAILY PO 02/05/17 09:00 02/20/17 09:32 Furosemide (Lasix) 20 mg BID@,18 PO 02/08/17 09:00 02/20/17 09:33 Diltiazem HCl (Cardizem) 30 mg Q6HR PO 02/08/17 11:00 02/20/17 05:01 Heparin Sodium/ Dextrose 250 ml @ 12 mls/hr TITRATE PRN IV Coagulation Management 02/14/17 00:15 02/20/17 05:07 Acetaminophen (Tylenol) 650 mg Q4H PRN PO SEE LABEL COMMENTS 02/17/17 09:45 02/17/17 13:29 Diphenhydramine HCl (Benadryl) 25 mg Q4H PRN PO SEE LABEL COMMENTS 02/17/17 09:45 02/17/17 13:29 Warfarin Sodium (Coumadin) 4 mg DAILY@1600 PO 02/18/17 16:00 02/19/17 17:48 Prednisone (Deltasone) 2.5 mg DAILY PO 02/19/17 09:00 02/23/17 08:59 02/20/17 09:32 Objective Remarks GENERAL: Middle aged female sitting up in bed in nad. SKIN: Warm and dry. scattered bruising on extremities. HEAD: Normocephalic. EYES: No injection or drainage. NECK: Supple, trachea midline. CARDIOVASCULAR: +S1/S2 RESPIRATORY: anterior valera with occasional rhonchi. on 2L via [place] GASTROINTESTINAL: Abdomen soft, non-tender, nondistended. EXTREMITIES: No cyanosis NEUROLOGICAL: aox3. normal speech. Assessment/Plan Problem List: (1) Aortic stenosis ICD Codes: I35.0 - Nonrheumatic aortic (valve) stenosis Status: Chronic Plan: on heparin bridge to Coumadin. Pharmacy managing -- Dr. Bustamante has declined TAVR for now -- Continue heparin until INR has been therapeutic for 48 ours -- She appears to be not a candidate for TAVR due to multiple comorbidities. -- If she is considered not a candidate for surgery, Cardiology is recommending hospice. 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 (3) new atrial fibrillation, RVR Assessment 56 year-old female with pancytopenia found to have severe aortic stenosis Plan 1. continue heparin bridge to coumadin. 2. monitor CBC Attending Statement The exam, history, and the medical decision-making described in the above note were completed with the assistance of the mid-level provider. I reviewed and agree with the findings presented. I attest that I had a [id number] encounter with the patient on the same day, and personally performed and documented my assessment and findings in the medical record. On heparin and coumadin ok to d/c home when INR therapeutic can be d/c'd home with Lovenox and Coumadin and f/u with PCP for INR f/u d/w rn o/n events reviewed Problem Qualifiers (1) Aortic stenosis: Qualified Codes: I35.0 - Nonrheumatic aortic (valve) stenosis Naida Quinn Feb 20, 2017 12:08 Wicho Yun MD Feb 20, 2017 20:57
--- NOTE | 2017-02-20 15:40 | HHI.PR ---
Subjective Remarks Follow-up A. fib and anticoagulation. Patient has no complaints tolerating heparin drip. No bleeding. INR 1.5. States she was out of bed earlier. Discussed with RN Objective Vitals Vital Signs Date Time Temp Pulse Resp B/P (MAP) Pulse Ox O2 Delivery O2 Flow Rate FiO2 02/20/17 15:21 16 02/20/17 12:00 Nasal Cannula 2.00 02/20/17 12:00 123 02/20/17 12:00 97.6 104 16 111/68 (82) 100 02/20/17 08:00 97.2 103 16 126/86 (99) 100 02/20/17 08:00 Nasal Cannula 2.00 02/20/17 08:00 86 02/20/17 04:00 97.7 94 20 141/72 (95) 97 02/20/17 04:00 Nasal Cannula 2.00 02/20/17 03:49 88 02/20/17 00:00 Nasal Cannula 2.00 02/20/17 00:00 97.4 100 20 113/69 (84) 99 02/19/17 23:48 86 02/19/17 20:00 Nasal Cannula 2.00 02/19/17 20:00 97.4 100 18 129/82 (98) 100 02/19/17 19:40 102 02/19/17 16:00 97.1 117 18 137/73 (94) 97 02/19/17 16:00 103 I/O 02/19/17 02/19/17 02/19/17 02/20/17 02/20/17 02/20/17 07:00 15:00 23:00 07:00 15:00 23:00 Intake Total 320 ml 240 ml 240 ml Balance 320 ml 240 ml 240 ml Intake Oral 320 ml 240 ml 240 ml # Voids 4 1 3 # Bowel Movements 1 0 Result Diagram: 02/20/17 1045 02/18/17 0813 Objective Remarks GENERAL: This is an averagely built middle-aged white female who is pale and Alert. CHEST: diminished movements of the left chest. Breath sounds diminished over the left mid and lower chest CARDIAC: Heart sounds are regular S1-S2 with a systolic ejection murmur 3/6 at the left sternal border. ABDOMEN: Soft, protuberant without masses. No organomegaly. EXTREMITIES: 1 + edema. Decreased pulses. No calf tenderness. NEUROLOGIC: Reflexes 1+. The patient does move all extremities well with no gross motor deficits. SKIN: No lesions noted. No significant change in PE from previous Procedures 02/13/17 bone marrow biopsy A/P Problem List: (1) UTI (urinary tract infection) ICD Code: N39.0 - Urinary tract infection, site not specified Status: Acute (2) Hypokalemia ICD Code: E87.6 - Hypokalemia Status: Resolved (3) Severe sepsis ICD Code: A41.9 - Sepsis, unspecified organism; R65.20 - Severe sepsis without septic shock Status: Resolved (4) Encephalopathy ICD Code: G93.40 - Encephalopathy, unspecified Status: Resolved (5) Aortic stenosis ICD Code: I35.0 - Nonrheumatic aortic (valve) stenosis Status: Chronic (6) COPD (chronic obstructive pulmonary disease) ICD Code: J44.9 - Chronic obstructive pulmonary disease, unspecified Status: Chronic (7) pancytopenia, etiology undetermined, suspect MDS Status: Acute (8) Physical deconditioning ICD Code: R53.81 - Other malaise Status: Chronic Assessment and Plan 1. Severe sepsis secondary to UTI: Culture with multidrug resistant Enterobacter cloacae. Status post course of imipenem. Infectious disease has signed off. 2. Severe aortic stenosis: Failing medical management. May be a candidate for TAVR following rehab. Echocardiogram from December 2016 shows normal EF. 3. Atrial fibrillation: Continue digoxin. Heparin drip and Coumadin INR 1.5 today. Will need to be on heparin drip until INR is therapeutic 48 hours prior hematology. 4. Thrombocytopenia/pancytopenia: Appreciate hematology recommendations. 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 Acute encephalopathy secondary to sepsis: CT head negative. Resolved 6. COPD, chronic respiratory failure: Status post recent thoracotomy. Continue nebulizer treatments, oxygen and wean prednisone. Appreciate pulmonology recommendations. 7. Hypokalemia: Improved. Continue potassium supplementation. 8. Deconditioning: Continue physical therapy, occupational therapy. 9. DVT prophylaxis: Heparin drip, coumadin. Discharge Planning Will need SNF/rehab. Plan for discharge when INR has been therapeutic for 48 hours then heparin drip can be discontinued. Problem Qualifiers (1) UTI (urinary tract infection): Qualified Codes: N30.00 - Acute cystitis without hematuria (2) Aortic stenosis: Qualified Codes: I35.0 - Nonrheumatic aortic (valve) stenosis Chung Yadav MD Feb 20, 2017 15:40
--- NOTE | 2017-02-20 15:49 | PD.CARD.PN ---
Subjective Subjective Remarks alert in nad Objective Medications Current Medications Medications (Trade) Dose Ordered Sig/Armin Route Start Time Stop Time Status Last Admin (NS Flush) 2 ml UNSCH PRN IV FLUSH 01/31/17 04:45 (NS Flush) 2 ml BID IV FLUSH 01/31/17 09:00 02/20/17 09:44 (Tylenol) 650 mg Q4H PRN PO 01/31/17 04:45 02/01/17 09:57 (Zofran Inj) 4 mg Q6H PRN IVP 01/31/17 04:45 (Narcan Inj) 0.4 mg UNSCH PRN IV PUSH 01/31/17 04:45 (Milk Of Magnesia Liq) 30 ml Q12H PRN PO 01/31/17 04:45 (Senokot) 17.2 mg Q12H PRN PO 01/31/17 04:45 (Dulcolax Supp) 10 mg DAILY PRN RECTAL 01/31/17 04:45 (Lactulose Liq) 30 ml DAILY PRN PO 01/31/17 04:45 02/16/17 17:41 (Urecholine) 25 mg Q8HR PO 01/31/17 06:00 02/20/17 14:20 (Percocet 10-325 Mg) 1 tab Q4H PRN PO 01/31/17 04:45 02/20/17 14:21 (Flomax) 0.4 mg DAILY PO 01/31/17 09:00 02/20/17 09:47 (Spiriva Inh) 18 mcg DAILY INH 01/31/17 09:00 02/20/17 09:31 (KCl) 20 meq TID PO 01/31/17 13:00 02/20/17 12:15 (Duoneb Neb) 1 ampule QID NEB PRN NEB 01/31/17 12:00 02/01/17 18:51 (Mag-Ox) 400 mg Q12HR PO 02/01/17 21:00 02/20/17 09:32 (Ferrous Sulfate Liq) 300 mg DAILY PO 02/05/17 09:00 02/20/17 09:40 (Lanoxin) 0.125 mg DAILY PO 02/05/17 09:00 02/20/17 09:32 (Lasix) 20 mg BID@09,18 PO 02/08/17 09:00 02/20/17 09:33 (Cardizem) 30 mg Q6HR PO 02/08/17 11:00 02/20/17 12:15 Heparin Sodium/ Dextrose 250 ml @ 12 mls/hr TITRATE PRN IV 02/14/17 00:15 02/20/17 05:07 (Tylenol) 650 mg Q4H PRN PO 02/17/17 09:45 02/17/17 13:29 (Benadryl) 25 mg Q4H PRN PO 02/17/17 09:45 02/17/17 13:29 Pharmacy Profile Note 0 ml @ 0 mls/hr UNSCH OTHER 02/18/17 06:15 (Coumadin) 4 mg DAILY@1600 PO 02/18/17 16:00 02/19/17 17:48 (Deltasone) 2.5 mg DAILY PO 02/19/17 09:00 02/23/17 08:59 02/20/17 09:32 (Pill Splitter) 1 ea UNSCH PRN OTHER 02/18/17 15:00 Pharmacy Profile Note 0 ml @ 0 mls/hr UNSCH OTHER 02/20/17 09:15 Vital Signs / I&O Vital Signs Date Time Temp Pulse Resp B/P (MAP) Pulse Ox O2 Delivery O2 Flow Rate FiO2 02/20/17 15:21 16 02/20/17 12:00 Nasal Cannula 2.00 02/20/17 12:00 123 02/20/17 12:00 97.6 104 16 111/68 (82) 100 02/20/17 08:00 97.2 103 16 126/86 (99) 100 02/20/17 08:00 Nasal Cannula 2.00 02/20/17 08:00 86 02/20/17 04:00 97.7 94 20 141/72 (95) 97 02/20/17 04:00 Nasal Cannula 2.00 02/20/17 03:49 88 02/20/17 00:00 Nasal Cannula 2.00 02/20/17 00:00 97.4 100 20 113/69 (84) 99 02/19/17 23:48 86 02/19/17 20:00 Nasal Cannula 2.00 02/19/17 20:00 97.4 100 18 129/82 (98) 100 02/19/17 19:40 102 12/17/17 16:00 97.1 117 18 137/73 (94) 97 02/19/17 16:00 103 I/O 02/19/17 02/19/17 02/19/17 02/20/17 02/20/17 02/20/17 07:00 15:00 23:00 07:00 15:00 23:00 Intake Total 320 ml 240 ml 240 ml Balance 320 ml 240 ml 240 ml Intake Oral 320 ml 240 ml 240 ml # Voids 4 1 3 # Bowel Movements 1 0 Physical Exam GENERAL: SKIN: Warm and dry. HEAD: Normocephalic. EYES: No scleral icterus. No injection or drainage. NECK: Supple, trachea midline. No JVD or lymphadenopathy. CARDIOVASCULAR: Regular rate and rhythm without murmurs, gallops, or rubs. RESPIRATORY: Breath sounds equal bilaterally. No accessory muscle use. GASTROINTESTINAL: Abdomen soft, non-tender, nondistended. MUSCULOSKELETAL: No cyanosis, or edema. BACK: Nontender without obvious deformity. No CVA tenderness. Laboratory Laboratory Tests Test 02/20/17 10:45 White Blood Count 4.4 TH/MM3 Red Blood Count 2.67 MIL/MM3 Hemoglobin 8.8 GM/DL Hematocrit 26.7 % Mean Corpuscular Volume 100.2 FL Mean Corpuscular Hemoglobin 32.9 PG Mean Corpuscular Hemoglobin Concent 32.8 % Red Cell Distribution Width 23.1 % Platelet Count 99 TH/MM3 Mean Platelet Volume 9.0 FL Prothrombin Time 15.4 SEC Prothromb Time International Ratio 1.5 RATIO Activated Partial Thromboplast Time 76.6 SEC Assessment and Plan Problem List: (1) Aortic stenosis ICD Codes: I35.0 - Nonrheumatic aortic (valve) stenosis Status: Chronic (2) COPD (chronic obstructive pulmonary disease) ICD Codes: J44.9 - Chronic obstructive pulmonary disease, unspecified Status: Chronic (3) Pleural effusion on left ICD Codes: J90 - Pleural effusion, not elsewhere classified Status: Acute (4) Pulmonary HTN ICD Codes: I27.20 - Pulmonary hypertension, unspecified (5) pancytopenia, etiology undetermined, suspect MDS Status: Acute (6) new atrial fibrillation, RVR (7) moderately severe COPD (8) congestive heart failure, persistent pleural effusions Assessment and Plan 1.) Severe - failing medical management, continue lasix as tolerated, f/u ct surg and palliative care consults, bnp, bmp in am; d/w Dr Recinos 02/05/17, patient probably not candidate for tavr due to multiple co morbidities, eval by Dr Bustamante, candidate for tavr, pending bm bx results and improvement in comorbidities, can go to rehab with outpatient f/u for tavr work up,.patient appears motivated to have tavr 2.) Afib - on heparin bridge to coumadin, s/p blood transfusion, coumadin increased to 4 mg qd, f/u cbc/inr, hgb 8.9 02/18/17; inr=1.5 02/20/17, f/u inr 02/21/17 Problem Qualifiers (1) Aortic stenosis: Qualified Codes: I35.0 - Nonrheumatic aortic (valve) stenosis Sd Kirk MD Feb 20, 2017 15:49
[2017-02-20 17:08] LABS: APTT (PATIENT) 67.4 SEC (24.3-30.1)
[2017-02-20] MEDS: WARFARIN SOD 4 MG TAB PO SCH (17:36)
--- NOTE | 2017-02-20 19:58 | HHI.PR ---
Subjective Remarks No complaints. awaits transfer to rehab.On coumadin to get INR therapeutic, and on Heparin drip On o2 2 L. Able to sit up.Leg edema is worse. Objective Vital Signs Date Time Temp Pulse Resp B/P (MAP) Pulse Ox O2 Delivery O2 Flow Rate FiO2 02/20/17 17:41 Nasal Cannula 2.00 02/20/17 16:00 95 02/20/17 15:21 16 02/20/17 12:00 Nasal Cannula 2.00 02/20/17 12:00 123 02/20/17 12:00 97.6 104 16 111/68 (82) 100 02/20/17 08:00 97.2 103 16 126/86 (99) 100 02/20/17 08:00 Nasal Cannula 2.00 02/20/17 08:00 86 02/20/17 04:00 97.7 94 20 141/72 (95) 97 02/20/17 04:00 Nasal Cannula 2.00 02/20/17 03:49 88 02/20/17 00:00 Nasal Cannula 2.00 02/20/17 00:00 97.4 100 20 113/69 (84) 99 02/19/17 23:48 86 02/19/17 20:00 Nasal Cannula 2.00 02/19/17 20:00 97.4 100 18 129/82 (98) 100 I/O 02/19/17 02/19/17 02/19/17 02/20/17 02/20/17 02/20/17 07:00 15:00 23:00 07:00 15:00 23:00 Intake Total 320 ml 240 ml 240 ml 960 ml Balance 320 ml 240 ml 240 ml 960 ml Intake Oral 320 ml 240 ml 240 ml 960 ml # Voids 4 1 3 4 # Bowel Movements 1 0 Result Diagram: 02/20/17 1045 02/18/17 0813 Objective Remarks GENERAL: This is an averagely built middle-aged white female who is pale and Alert. HEENT: Head normocephalic. Pupils are reactive and equal. Tongue moist. Throat is clear. NECK: No bruits. No venous distension. Trachea midline. No thyroid enlargement. CHEST: diminished movements of the left chest. Breath sounds diminished over the left mid and lower chest . CARDIAC: Heart sounds are irregular S1-S2 with a systolic ejection murmur 3/6 at the left sternal border. ABDOMEN: Soft, protuberant without masses. No organomegaly. EXTREMITIES: 1 + edema. Decreased pulses. No calf tenderness. NEUROLOGIC: Reflexes 1+. The patient does move all extremities well with no gross motor deficits. SKIN: No lesions noted. Assessment and Plan Assessment and Plan IMPRESSION 1. Chronic bilateral leg edema (lymphedema). 2. Sepsis with UTI 3. COPD and chronic bronchitis 4. Severe deconditioning. 5. Status post VAT thoracotomy left chest with decortication of chronic loculated effusion 6. Atelectasis left lower lung. 7. Possible CHF. Plan : 1. Continue daily Diuretic . 2. O2 at 2 L. 3. Nebs BID , duoneb.PRN 4. PT and OT. 5. coumadin for anticoagulation 6. Heparin drip till INR therapeutic. Venessa Chung MD Feb 20, 2017 19:58
[2017-02-20 23:11] LABS: APTT (PATIENT) 58.5 SEC (24.3-30.1)
[2017-02-21] VITALS (12 sets, daily range): BP systolic 113–148; BP diastolic 70–76; PULSE 71–125; RESP 18–23; TEMP 97–98.1; O2SAT 91–100
[2017-02-21] MEDS: oxyCODONE/ACETAMINOPHEN 10 MG/325 MG TAB PO PRN ×5 (05:01→22:05)
[2017-02-21] MEDS: BETHANECHOL CHL 25 MG TAB PO SCH ×3 (05:01→22:04)
[2017-02-21] MEDS: DILTIAZEM HCL 30 MG TAB PO SCH ×4 (05:01→22:04)
--- NOTE | 2017-02-21 07:31 | PD.CARD.PN ---
Subjective Subjective Remarks alert in nad Objective Medications Current Medications Medications (Trade) Dose Ordered Sig/Armin Route Start Time Stop Time Status Last Admin (NS Flush) 2 ml UNSCH PRN IV FLUSH 01/31/17 04:45 (NS Flush) 2 ml BID IV FLUSH 01/31/17 09:00 02/20/17 22:18 (Tylenol) 650 mg Q4H PRN PO 01/31/17 04:45 02/01/17 09:57 (Zofran Inj) 4 mg Q6H PRN IVP 01/31/17 04:45 (Narcan Inj) 0.4 mg UNSCH PRN IV PUSH 01/31/17 04:45 (Milk Of Magnesia Liq) 30 ml Q12H PRN PO 01/31/17 04:45 (Senokot) 17.2 mg Q12H PRN PO 01/31/17 04:45 (Dulcolax Supp) 10 mg DAILY PRN RECTAL 01/31/17 04:45 (Lactulose Liq) 30 ml DAILY PRN PO 01/31/17 04:45 02/16/17 17:41 (Urecholine) 25 mg Q8HR PO 01/31/17 06:00 02/21/17 05:01 (Percocet 10-325 Mg) 1 tab Q4H PRN PO 01/31/17 04:45 02/21/17 05:01 (Flomax) 0.4 mg DAILY PO 01/31/17 09:00 02/20/17 09:47 (Spiriva Inh) 18 mcg DAILY INH 01/31/17 09:00 02/20/17 09:31 (KCl) 20 meq TID PO 01/31/17 13:00 02/20/17 17:35 (Duoneb Neb) 1 ampule QID NEB PRN NEB 01/31/17 12:00 02/01/17 18:51 (Mag-Ox) 400 mg Q12HR PO 02/01/17 21:00 02/20/17 22:18 (Ferrous Sulfate Liq) 300 mg DAILY PO 02/05/17 09:00 02/20/17 09:40 (Lanoxin) 0.125 mg DAILY PO 02/05/17 09:00 02/20/17 09:32 (Lasix) 20 mg BID@09,18 PO 02/08/17 09:00 02/20/17 17:35 (Cardizem) 30 mg Q6HR PO 02/08/17 11:00 02/21/17 05:01 Heparin Sodium/ Dextrose 250 ml @ 12 mls/hr TITRATE PRN IV 02/14/17 00:15 02/20/17 23:52 (Tylenol) 650 mg Q4H PRN PO 02/17/17 09:45 02/17/17 13:29 (Benadryl) 25 mg Q4H PRN PO 02/17/17 09:45 02/17/17 13:29 (Coumadin) 4 mg DAILY@1600 PO 02/18/17 16:00 02/20/17 17:36 (Deltasone) 2.5 mg DAILY PO 02/19/17 09:00 02/23/17 08:59 02/20/17 09:32 (Pill Splitter) 1 ea UNSCH PRN OTHER 02/18/17 15:00 Pharmacy Profile Note 0 ml @ 0 mls/hr UNSCH OTHER 02/20/17 09:15 Vital Signs / I&O Vital Signs Date Time Temp Pulse Resp B/P (MAP) Pulse Ox O2 Delivery O2 Flow Rate FiO2 02/21/17 04:00 97.5 125 23 148/71 (96) 98 02/21/17 04:00 Nasal Cannula 2.00 02/21/17 03:41 110 02/21/17 00:00 98.1 108 21 142/76 (98) 99 02/21/17 00:00 Nasal Cannula 2.00 02/20/17 23:54 122 02/20/17 20:20 102 02/20/17 20:00 Nasal Cannula 2.00 02/20/17 20:00 98.1 122 20 138/72 (94) 97 02/20/17 17:41 Nasal Cannula 2.00 02/20/17 16:00 95 02/20/17 15:21 16 02/20/17 12:00 Nasal Cannula 2.00 02/20/17 12:00 123 02/20/17 12:00 97.6 104 16 111/68 (82) 100 02/20/17 08:00 97.2 103 16 126/86 (99) 100 02/20/17 08:00 Nasal Cannula 2.00 02/20/17 08:00 86 I/O 02/20/17 02/20/17 02/20/17 02/21/17 02/21/17 02/21/17 06:59 14:59 22:59 06:59 14:59 22:59 Intake Total 240 ml 960 ml 561 ml Balance 240 ml 960 ml 561 ml Intake Oral 240 ml 960 ml 320 ml IV Total 241 ml # Voids 3 4 2 # Bowel Movements 0 0 Physical Exam GENERAL: SKIN: Warm and dry. HEAD: Normocephalic. EYES: No scleral icterus. No injection or drainage. NECK: Supple, trachea midline. No JVD or lymphadenopathy. CARDIOVASCULAR: Regular rate and rhythm without murmurs, gallops, or rubs. RESPIRATORY: Breath sounds equal bilaterally. No accessory muscle use. GASTROINTESTINAL: Abdomen soft, non-tender, nondistended. MUSCULOSKELETAL: No cyanosis, or edema. BACK: Nontender without obvious deformity. No CVA tenderness. Laboratory Laboratory Tests Test 02/20/17 10:45 02/20/17 16:30 02/20/17 22:45 White Blood Count 4.4 TH/MM3 Red Blood Count 2.67 MIL/MM3 Hemoglobin 8.8 GM/DL Hematocrit 26.7 % Mean Corpuscular Volume 100.2 FL Mean Corpuscular Hemoglobin 32.9 PG Mean Corpuscular Hemoglobin Concent 32.8 % Red Cell Distribution Width 23.1 % Platelet Count 99 TH/MM3 Mean Platelet Volume 9.0 FL Prothrombin Time 15.4 SEC Prothromb Time International Ratio 1.5 RATIO Activated Partial Thromboplast Time 76.6 SEC 67.4 SEC 58.5 SEC Assessment and Plan Problem List: (1) Aortic stenosis ICD Codes: I35.0 - Nonrheumatic aortic (valve) stenosis Status: Chronic (2) COPD (chronic obstructive pulmonary disease) ICD Codes: J44.9 - Chronic obstructive pulmonary disease, unspecified Status: Chronic (3) Pleural effusion on left ICD Codes: J90 - Pleural effusion, not elsewhere classified Status: Acute (4) Pulmonary HTN ICD Codes: I27.20 - Pulmonary hypertension, unspecified (5) pancytopenia, etiology undetermined, suspect MDS Status: Acute (6) new atrial fibrillation, RVR (7) moderately severe COPD (8) congestive heart failure, persistent pleural effusions Assessment and Plan 1.) Severe - failing medical management, continue lasix as tolerated, f/u ct surg and palliative care consults, bnp, bmp in am; d/w Dr Recinos 02/05/17, patient probably not candidate for tavr due to multiple co morbidities, eval by Dr Bustamante, candidate for tavr, pending bm bx results and improvement in comorbidities, can go to rehab with outpatient f/u for tavr work up,.patient appears motivated to have tavr 2.) Afib - on heparin bridge to coumadin, s/p blood transfusion, coumadin increased to 4 mg qd, f/u cbc/inr, hgb 8.9 02/18/17; inr=1.5 02/20/17, f/u inr 02/21/17 Problem Qualifiers (1) Aortic stenosis: Qualified Codes: I35.0 - Nonrheumatic aortic (valve) stenosis Sd Kirk MD Feb 21, 2017 07:31
[2017-02-21] MEDS: TIOTROPIUM BROMIDE 18 MCG INH INH SCH (09:06)
[2017-02-21] MEDS: FERROUS SULFATE 300 MG /5ML UDC PO SCH (09:07)
[2017-02-21] MEDS: SODIUM CHLORIDE 0.9% FLUSH 10 ML FLUSH IV FLUSH SCH ×2 (09:07→22:04)
[2017-02-21] MEDS: MAGNESIUM OXIDE 400 MG TAB PO SCH ×2 (09:08→22:04)
[2017-02-21] MEDS: TAMSULOSIN HCL 0.4 MG CAP PO SCH (09:08)
[2017-02-21] MEDS: FUROSEMIDE 20 MG TAB PO SCH ×2 (09:08→16:51)
[2017-02-21] MEDS: POTASSIUM CHLORIDE 10 MEQ CAP PO SCH ×3 (09:08→16:52)
[2017-02-21] MEDS: predniSONE 5 MG TAB PO SCH (09:09)
[2017-02-21] MEDS: DIGOXIN 0.125 MG TAB PO SCH (09:09)
[2017-02-21 09:53] LABS: APTT (PATIENT) 63.9 SEC (24.3-30.1); INTERNATIONAL NORMALIZED RATIO 1.7 RATIO; PROTHROMBIN TIME - PATIENT 17.6 SEC (9.8-11.6)
[2017-02-21] MEDS: WARFARIN SOD 4 MG TAB PO SCH (16:52)
--- NOTE | 2017-02-21 17:00 | HHI.HCPN ---
Reason for visit a. To assist with evaluation and management of symptoms including: Dyspnea , weakness b. To assist medical decision maker(s) with: better understanding of current medical conditions; weighing benefits/burdens of medical treatment options; making medical treatment decisions. . Subjective/Interval History Palliative care follow-up for further clarifications of goals of care. 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 Hematology oncology following. Patient with severe aortic stenosis, not a surgical candidate at this time secondary to debility and multiple comorbidities. May be candidate for TAVR following rehabilitation. Patient currently on heparin bridge to Coumadin, has been cleared to discharge by hematology oncology once INR therapeutic. manager pharmacy following, pending SNF placement. Patient seen in her room. She was resting in bed in no acute distress. Endorsing shortness of breath at rest, just completed physical therapy. She reports that she was able to sit up in bed with assistance and put her feet on the floor. Verbalized feeling encouraged to continue physical therapy. Patient denies pain at time of my visit, no nausea/vomiting or abdominal discomfort. Patient remains afebrile, tachycardic with heart rate in the low 100s. Tolerating O2 via nasal cannula 2 L, oxygen saturation in the high 90s. Laboratory workup today revealing stable hemoglobin at 8.8, platelets 99.. Goals of therapy remain aggressive, patient looking into SNF placement for physical straightening, considering TAVR if a candidate following rehabilitation. CV surgery reports that TAVR may be possible if the patient is more stable, is successful at Rehab, and the comorbidities are well controlled. all questions were answered in great detail, patient appreciative of my follow -up visit. . Family/friend interactions No family at bedside. . Advance Directives Living Will: Completed, but not made available Health Care Surrogate: Never completed Durable Power of Grinding And Spraying Supervisor: Never completed Advance Directive Specifics Health Care Surrogate(s): No advance directives completed. As per [place] statute, healthcare proxy decision-making falls to patient's Feliberto Steven. . Significant change in goals: Full code. Patient electing to continue aggressive management. Pending discharge to SNF once medically stable. . Objective Vital Signs Date Time Temp Pulse Resp B/P (MAP) Pulse Ox O2 Delivery O2 Flow Rate FiO2 02/21/17 16:03 97.6 100 18 121/71 (88) 99 02/21/17 12:04 97.1 108 18 113/75 (88) 91 02/21/17 12:00 107 02/21/17 08:03 97.0 102 18 123/70 (87) 100 02/21/17 08:00 Nasal Cannula 2.00 02/21/17 08:00 71 02/21/17 04:00 97.5 125 23 148/71 (96) 98 02/21/17 04:00 Nasal Cannula 2.00 02/21/17 03:41 110 02/21/17 00:00 98.1 108 21 142/76 (98) 99 02/21/17 00:00 Nasal Cannula 2.00 02/20/17 23:54 122 02/20/17 20:20 102 02/20/17 20:00 Nasal Cannula 2.00 02/20/17 20:00 98.1 122 20 138/72 (94) 97 02/20/17 17:41 Nasal Cannula 2.00 Intake & Output 02/21/17 02/21/17 07:00 19:00 Intake Total 561 ml Balance 561 ml Intake Oral 320 ml IV Total 241 ml # Voids 2 # Bowel Movements 0 Physical Exam CONSTITUTIONAL/GENERAL: This is a chronically ill, female patient in no acute distress. TUBES/LINES/DRAINS: Nasal oxygen, peripheral IVs CARDIOVASCULAR: Irregular rhythm with systolic murmur. No JVD. Peripheral pulses diminished. RESPIRATORY/CHEST: Symmetric, but mildly labored respirations. Markedly diminished breath sounds bilateral. No accessory muscles used. GASTROINTESTINAL: Abdomen soft, non-tender, mildly distended. Bowel sounds present. MUSCULOSKELETAL: Extremities without clubbing or cyanosis, edema to bilateral lower extremities. No mottling or clubbing. NEUROLOGICAL: Alert and awake. Cognitively sharp. Answering questions, able to make needs known. PSYCHIATRIC: No obvious anxiety/depression. no apparent hallucinations or other psychotic thought process. Pleasant. . Diagnostic Tests Laboratory Laboratory Tests Test 02/19/17 07:50 02/20/17 10:45 02/20/17 16:30 02/20/17 22:45 Prothrombin Time 12.4 SEC (9.8-11.6) 15.4 SEC (9.8-11.6) Prothromb Time International Ratio 1.2 RATIO 1.5 RATIO Activated Partial Thromboplast Time 64.6 SEC (24.3-30.1) 76.6 SEC (24.3-30.1) 67.4 SEC (24.3-30.1) 58.5 SEC (24.3-30.1) White Blood Count 4.4 TH/MM3 (4.0-11.0) Red Blood Count 2.67 MIL/MM3 (4.00-5.30) Hemoglobin 8.8 GM/DL (11.6-15.3) Hematocrit 26.7 % (35.0-46.0) Mean Corpuscular Volume 100.2 FL (80.0-100.0) Mean Corpuscular Hemoglobin 32.9 PG (27.0-34.0) Mean Corpuscular Hemoglobin Concent 32.8 % (32.0-36.0) Red Cell Distribution Width 23.1 % (11.6-17.2) Platelet Count 99 TH/MM3 (150-450) Mean Platelet Volume 9.0 FL (7.0-11.0) Test 02/21/17 09:00 Prothrombin Time 17.6 SEC (9.8-11.6) Prothromb Time International Ratio 1.7 RATIO Activated Partial Thromboplast Time 63.9 SEC (24.3-30.1) Result Diagram: 02/20/17 1045 02/18/17 0813 Procedures Bone marrow biopsy 02/13/17 . 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 Spiritual: The patient says she is spiritual and her own way, but is not affiliated with any presybeterian or clergy, and does not want station baggage porter visits. Legal: The patient has capacity for decision-making, and her Feliberto will be the proxy decision-maker when she loses that capacity. Ethical issues impacting care: None . Important Contacts : Feliberto Steven [phone] . 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 With her profound debility and weakness, her overall prognosis is poor. . Code Status: Full Code Plan * CODE STATUS: Patient electing to remain full code. She would accept treatment with life support "for a while but not for a long time since that wouldn't really be on life." At this time, she does want to continue aggressive care at this time including mechanical ventilation and resuscitation; however, she makes it clear that if she is on a ventilator for some period of time and is not going to get better, she would want to have it withdrawn and be allowed to peacefully. * HEALTHCARE DECISION-MAKING: Patient participating in medical decision-making. She appears to have a good understanding of her clinical condition, retains the ability to weight benefits vs burdens of treatment options offered. No advance directives completed. As per [place] statute, healthcare proxy decision maker falls to patient's Feliberto Steven. * GOALS OF CARE: Patient verbalizing aggressive goals of care. Patient is planning to go to rehab upon discharge with the hope that she can become strong enough for aggressive interventions to include TAVR. Pending SNF placement once medically clear. * SYMPTOMS: = Shortness of breath, multifactorial. Secondary to advanced heart disease, prolonged hospitalization, COPD, chronic bronchitis. Currently tolerating O2 via nasal cannula. On prednisone and Lasix daily. DuoNeb 4 times a day as needed. = Pain, secondary to prolonged hospitalization, bedrest, burden disease. Percocet 10-325mg available as needed. Patient average 4-5 doses daily. Reports that current dose is effective at this time. No further recommendations. = Debility, pending SNF discharge once medically clear. * Palliative care contact information has been provided to patient and family. * Palliative Care will continue to follow up as needed for further clarifications of goals of care as patient's clinical course continues to evolve. . Time Spent Total Floor Time (mins): 33 (Total time to include review and summarization of medical records, physical exam, goals of care conversation with patient.) >50% Counseling/Coord of Care: Yes Attestation To help prompt me to consider important information that might be impacting today's encounter and assessment, information from prior notes written by myself or my colleagues may have been "brought forward" into today's note. My signature on this note, however, is an attestation that I personally performed the exam, history, and/or decision-making noted today, and, unless otherwise indicated, the interactions with patient, family, and staff as well as the review of records all occurred today. I also attest that the listed assessment and stated plan reflect my best clinical judgment today based on the combination of historical information, prior notes, and today's exam/ interactions. When time spent is documented, it refers only to time spent today by the signer, or if indicated, combined time spent today by collaborating physician/nurse practitioner. Fiona Conrad Feb 21, 2017 17:00
--- NOTE | 2017-02-21 17:42 | HHI.PR ---
Subjective Remarks Follow-up anticoagulation for A. fib. No bleeding tolerating heparin drip and Coumadin. INR 1.7 discussed with RN Objective Vitals Vital Signs Date Time Temp Pulse Resp B/P (MAP) Pulse Ox O2 Delivery O2 Flow Rate FiO2 02/21/17 16:03 97.6 100 18 121/71 (88) 99 02/21/17 16:00 79 02/21/17 16:00 Nasal Cannula 2.00 02/21/17 12:04 97.1 108 18 113/75 (88) 91 02/21/17 12:00 107 02/21/17 08:03 97.0 102 18 123/70 (87) 100 02/21/17 08:00 Nasal Cannula 2.00 02/21/17 08:00 71 02/21/17 04:00 97.5 125 23 148/71 (96) 98 02/21/17 04:00 Nasal Cannula 2.00 02/21/17 03:41 110 02/21/17 00:00 98.1 108 21 142/76 (98) 99 02/21/17 00:00 Nasal Cannula 2.00 02/20/17 23:54 122 02/20/17 20:20 102 02/20/17 20:00 Nasal Cannula 2.00 02/20/17 20:00 98.1 122 20 138/72 (94) 97 I/O 02/20/17 02/20/17 02/20/17 02/21/17 02/21/17 02/21/17 07:00 15:00 23:00 07:00 15:00 23:00 Intake Total 240 ml 960 ml 561 ml Balance 240 ml 960 ml 561 ml Intake Oral 240 ml 960 ml 320 ml IV Total 241 ml # Voids 3 4 2 # Bowel Movements 0 0 Result Diagram: 02/20/17 1045 02/18/17 0813 Objective Remarks GENERAL: This is an averagely built middle-aged white female who is pale and Alert. CHEST: Decreased breath sounds CARDIAC: Heart sounds are regular S1-S2 with a systolic ejection murmur 3/6 at the left sternal border. ABDOMEN: Soft, protuberant without masses. No organomegaly. EXTREMITIES: 1 + edema. Decreased pulses. No calf tenderness. NEUROLOGIC: Reflexes 1+. The patient does move all extremities well with no gross motor deficits. SKIN: No lesions noted. Procedures 12/11/17 bone marrow biopsy A/P Problem List: (1) UTI (urinary tract infection) ICD Code: N39.0 - Urinary tract infection, site not specified Status: Acute (2) Hypokalemia ICD Code: E87.6 - Hypokalemia Status: Resolved (3) Severe sepsis ICD Code: A41.9 - Sepsis, unspecified organism; R65.20 - Severe sepsis without septic shock Status: Resolved (4) Encephalopathy ICD Code: G93.40 - Encephalopathy, unspecified Status: Resolved (5) Aortic stenosis ICD Code: I35.0 - Nonrheumatic aortic (valve) stenosis Status: Chronic (6) COPD (chronic obstructive pulmonary disease) ICD Code: J44.9 - Chronic obstructive pulmonary disease, unspecified Status: Chronic (7) pancytopenia, etiology undetermined, suspect MDS Status: Acute (8) Physical deconditioning ICD Code: R53.81 - Other malaise Status: Chronic Assessment and Plan 1. Severe sepsis secondary to UTI: Culture with multidrug resistant Enterobacter cloacae. Status post course of imipenem. Infectious disease has signed off. 2. Severe aortic stenosis: Failing medical management. May be a candidate for TAVR following rehab. Echocardiogram from December 2016 shows normal EF. 3. Atrial fibrillation: Continue digoxin. Heparin drip and Coumadin INR 1.7 today. Will need to be on heparin drip until INR is therapeutic 48 hours prior hematology. 4. Thrombocytopenia/pancytopenia: Appreciate hematology recommendations. 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 Acute encephalopathy secondary to sepsis: CT head negative. Resolved 6. COPD, chronic respiratory failure: Status post recent thoracotomy. Continue nebulizer treatments, oxygen and wean prednisone. Appreciate pulmonology recommendations. 7. Hypokalemia: Improved. Continue potassium supplementation. 8. Deconditioning: Continue physical therapy, occupational therapy. 9. DVT prophylaxis: Heparin drip, coumadin. Discharge Planning Will need SNF/rehab. Plan for discharge when INR has been therapeutic for 48 hours then heparin drip can be discontinued. Problem Qualifiers (1) UTI (urinary tract infection): Qualified Codes: N30.00 - Acute cystitis without hematuria (2) Aortic stenosis: Qualified Codes: I35.0 - Nonrheumatic aortic (valve) stenosis Chung Yadav MD Feb 21, 2017 17:42
[2017-02-21] MEDS: HEPARIN-D5W 25,000 U/250 ML 250 ML IV PRN (23:29)
[2017-02-22] VITALS (11 sets, daily range): BP systolic 99–130; BP diastolic 61–73; PULSE 61–135; RESP 18–21; TEMP 97.2–97.8; O2SAT 95–100
[2017-02-22] MEDS: DILTIAZEM HCL 30 MG TAB PO SCH ×3 (05:01→18:15)
[2017-02-22] MEDS: BETHANECHOL CHL 25 MG TAB PO SCH ×3 (05:01→22:21)
[2017-02-22] MEDS: oxyCODONE/ACETAMINOPHEN 10 MG/325 MG TAB PO PRN ×4 (05:01→22:20)
--- NOTE | 2017-02-22 09:04 | PD.CARD.PN ---
Subjective Subjective Remarks alert in nad Objective Medications Current Medications Medications (Trade) Dose Ordered Sig/Armin Route Start Time Stop Time Status Last Admin (NS Flush) 2 ml UNSCH PRN IV FLUSH 01/31/17 04:45 (NS Flush) 2 ml BID IV FLUSH 01/31/17 09:00 02/21/17 22:04 (Tylenol) 650 mg Q4H PRN PO 01/31/17 04:45 02/01/17 09:57 (Zofran Inj) 4 mg Q6H PRN IVP 01/31/17 04:45 (Narcan Inj) 0.4 mg UNSCH PRN IV PUSH 01/31/17 04:45 (Milk Of Magnesia Liq) 30 ml Q12H PRN PO 01/31/17 04:45 (Senokot) 17.2 mg Q12H PRN PO 01/31/17 04:45 (Dulcolax Supp) 10 mg DAILY PRN RECTAL 01/31/17 04:45 (Lactulose Liq) 30 ml DAILY PRN PO 01/31/17 04:45 02/16/17 17:41 (Urecholine) 25 mg Q8HR PO 01/31/17 06:00 02/22/17 05:01 (Percocet 10-325 Mg) 1 tab Q4H PRN PO 01/31/17 04:45 02/22/17 05:01 (Flomax) 0.4 mg DAILY PO 01/31/17 09:00 02/21/17 09:08 (Spiriva Inh) 18 mcg DAILY INH 01/31/17 09:00 02/21/17 09:06 (KCl) 20 meq TID PO 01/31/17 13:00 02/21/17 16:52 (Duoneb Neb) 1 ampule QID NEB PRN NEB 01/31/17 12:00 02/01/17 18:51 (Mag-Ox) 400 mg Q12HR PO 02/01/17 21:00 02/21/17 22:04 (Ferrous Sulfate Liq) 300 mg DAILY PO 02/05/17 09:00 02/21/17 09:07 (Lanoxin) 0.125 mg DAILY PO 02/05/17 09:00 02/21/17 09:09 (Lasix) 20 mg BID@09,18 PO 02/08/17 09:00 02/21/17 16:51 (Cardizem) 30 mg Q6HR PO 02/08/17 11:00 02/22/17 05:01 Heparin Sodium/ Dextrose 250 ml @ 12 mls/hr TITRATE PRN IV 02/14/17 00:15 02/21/17 23:29 (Tylenol) 650 mg Q4H PRN PO 02/17/17 09:45 02/17/17 13:29 (Benadryl) 25 mg Q4H PRN PO 02/17/17 09:45 02/17/17 13:29 (Coumadin) 4 mg DAILY@1600 PO 02/18/17 16:00 02/21/17 16:52 (Deltasone) 2.5 mg DAILY PO 02/19/17 09:00 02/23/17 08:59 02/21/17 09:09 (Pill Splitter) 1 ea UNSCH PRN OTHER 02/18/17 15:00 Pharmacy Profile Note 0 ml @ 0 mls/hr UNSCH OTHER 02/20/17 09:15 Vital Signs / I&O Vital Signs Date Time Temp Pulse Resp B/P (MAP) Pulse Ox O2 Delivery O2 Flow Rate FiO2 02/22/17 08:03 97.2 61 18 120/66 (84) 98 02/22/17 04:02 90 02/22/17 04:00 97.8 99 21 120/67 (84) 100 02/22/17 00:11 91 02/22/17 00:00 97.4 77 19 130/73 (92) 95 02/21/17 21:45 Nasal Cannula 3.00 02/21/17 20:09 71 02/21/17 20:00 97.8 83 19 126/75 (92) 100 02/21/17 19:05 99 Nasal Cannula 2.00 02/21/17 16:03 97.6 100 18 121/71 (88) 99 02/21/17 16:00 79 02/21/17 16:00 Nasal Cannula 2.00 02/21/17 12:04 97.1 108 18 113/75 (88) 91 02/21/17 12:00 107 I/O 02/21/17 02/21/17 02/21/17 02/22/17 02/22/17 02/22/17 07:00 15:00 23:00 07:00 15:00 23:00 Intake Total 561 ml 360 ml 706 ml Balance 561 ml 360 ml 706 ml Intake Oral 320 ml 360 ml 400 ml IV Total 241 ml 306 ml # Voids 2 3 3 # Bowel Movements 0 0 Physical Exam GENERAL: SKIN: Warm and dry. HEAD: Normocephalic. EYES: No scleral icterus. No injection or drainage. NECK: Supple, trachea midline. No JVD or lymphadenopathy. CARDIOVASCULAR: Regular rate and rhythm without murmurs, gallops, or rubs. RESPIRATORY: Breath sounds equal bilaterally. No accessory muscle use. GASTROINTESTINAL: Abdomen soft, non-tender, nondistended. MUSCULOSKELETAL: No cyanosis, or edema. BACK: Nontender without obvious deformity. No CVA tenderness. Assessment and Plan Problem List: (1) Aortic stenosis ICD Codes: I35.0 - Nonrheumatic aortic (valve) stenosis Status: Chronic (2) COPD (chronic obstructive pulmonary disease) ICD Codes: J44.9 - Chronic obstructive pulmonary disease, unspecified Status: Chronic (3) Pleural effusion on left ICD Codes: J90 - Pleural effusion, not elsewhere classified Status: Acute (4) Pulmonary HTN ICD Codes: I27.20 - Pulmonary hypertension, unspecified (5) pancytopenia, etiology undetermined, suspect MDS Status: Acute (6) new atrial fibrillation, RVR (7) moderately severe COPD (8) congestive heart failure, persistent pleural effusions Assessment and Plan 1.) Severe - failing medical management, continue lasix as tolerated, f/u ct surg and palliative care consults, bnp, bmp in am; d/w Dr Reicnos 02/05/17, patient probably not candidate for tavr due to multiple co morbidities, eval by Dr Bustamante, candidate for tavr, pending bm bx results and improvement in comorbidities, can go to rehab with outpatient f/u for tavr work up,.patient appears motivated to have tavr 2.) Afib - on heparin bridge to coumadin, s/p blood transfusion, coumadin increased to 4 mg qd, f/u cbc/inr, hgb 8.9 02/18/17; f/u inr 3.) I am on vacation beginning today, will sign off, patient will need to follow up with Dr Bustamante Problem Qualifiers (1) Aortic stenosis: Qualified Codes: I35.0 - Nonrheumatic aortic (valve) stenosis Sd Kirk MD Feb 22, 2017 09:04
[2017-02-22] MEDS: predniSONE 5 MG TAB PO SCH (10:03)
[2017-02-22] MEDS: FUROSEMIDE 20 MG TAB PO SCH ×2 (10:03→18:14)
[2017-02-22] MEDS: POTASSIUM CHLORIDE 10 MEQ CAP PO SCH ×3 (10:03→18:15)
[2017-02-22] MEDS: MAGNESIUM OXIDE 400 MG TAB PO SCH ×2 (10:04→22:21)
[2017-02-22] MEDS: TAMSULOSIN HCL 0.4 MG CAP PO SCH (10:05)
[2017-02-22] MEDS: FERROUS SULFATE 300 MG /5ML UDC PO SCH (10:05)
[2017-02-22] MEDS: DIGOXIN 0.125 MG TAB PO SCH (10:05)
[2017-02-22] MEDS: SODIUM CHLORIDE 0.9% FLUSH 10 ML FLUSH IV FLUSH SCH ×2 (10:06→22:20)
[2017-02-22] MEDS: TIOTROPIUM BROMIDE 18 MCG INH INH SCH (10:06)
[2017-02-22 12:47] LABS: INTERNATIONAL NORMALIZED RATIO 2.6 RATIO
--- NOTE | 2017-02-22 12:57 | PD.ONC.PN ---
Subjective Subjective Remarks Afebrile Pt reports she is tired of being in the hospital No bleeding Having some pain on her L side at the site of her surgery Objective Data Date Time Temp Pulse Resp B/P (MAP) Pulse Ox O2 Delivery O2 Flow Rate FiO2 02/22/17 12:14 97.7 82 18 99/61 (74) 98 02/22/17 11:08 Nasal Cannula 2.00 02/22/17 08:03 97.2 61 18 120/66 (84) 98 02/22/17 04:02 90 02/22/17 04:00 97.8 99 21 120/67 (84) 100 02/22/17 00:11 91 02/22/17 00:00 97.4 77 19 130/73 (92) 95 02/21/17 21:45 Nasal Cannula 3.00 02/21/17 20:09 71 02/21/17 20:00 97.8 83 19 126/75 (92) 100 02/21/17 19:05 99 Nasal Cannula 2.00 02/21/17 16:03 97.6 100 18 121/71 (88) 99 02/21/17 16:00 79 02/21/17 16:00 Nasal Cannula 2.00 02/22/17 02/22/17 02/22/17 07:00 15:00 23:00 Intake Total 706 ml Balance 706 ml Result Diagram: 02/20/17 1045 02/18/17 0813 Laboratory Results Laboratory Tests Test 02/22/17 12:15 Administered Medications Medications (Trade) Dose Ordered Sig/Armin Route PRN Reason Start Time Stop Time Status Last Admin Dose Admin Sodium Chloride (NS Flush) 2 ml BID IV FLUSH 01/31/17 09:00 02/22/17 10:06 Acetaminophen (Tylenol) 650 mg Q4H PRN PO TEMP > 100.4 01/31/17 04:45 02/01/17 09:57 Lactulose (Lactulose Liq) 30 ml DAILY PRN PO SEVERE CONSITIPATION 01/31/17 04:45 02/16/17 17:41 Bethanechol Chloride (Urecholine) 25 mg Q8HR PO 01/31/17 06:00 02/22/17 12:43 Oxycodone/ Acetaminophen (Percocet 10-325 Mg) 1 tab Q4H PRN PO PAIN SCALE 5-10 01/31/17 04:45 02/22/17 10:04 Tamsulosin HCl (Flomax) 0.4 mg DAILY PO 01/31/17 09:00 02/22/17 10:05 Tiotropium [place] (Spiriva Inh) 18 mcg DAILY INH 01/31/17 09:00 02/22/17 10:06 Potassium Chloride (KCl) 20 meq TID PO 01/31/17 13:00 02/22/17 12:42 Albuterol/ Ipratropium (Duoneb Neb) 1 ampule QID NEB PRN NEB SOB/WHEEZING 01/31/17 12:00 02/01/17 18:51 Magnesium Oxide (Mag-Ox) 400 mg Q12HR PO 02/01/17 21:00 02/22/17 10:04 Ferrous Sulfate (Ferrous Sulfate Liq) 300 mg DAILY PO 02/05/17 09:00 02/22/17 10:05 Digoxin (Lanoxin) 0.125 mg DAILY PO 02/05/17 09:00 02/22/17 10:05 Furosemide (Lasix) 20 mg BID@09,18 PO 02/08/17 09:00 02/22/17 10:03 Diltiazem HCl (Cardizem) 30 mg Q6HR PO 02/08/17 11:00 02/22/17 05:01 Heparin Sodium/ Dextrose 250 ml @ 12 mls/hr TITRATE PRN IV Coagulation Management 02/14/17 00:15 02/21/17 23:29 Acetaminophen (Tylenol) 650 mg Q4H PRN PO SEE LABEL COMMENTS 02/17/17 09:45 02/17/17 13:29 Diphenhydramine HCl (Benadryl) 25 mg Q4H PRN PO SEE LABEL COMMENTS 02/17/17 09:45 02/17/17 13:29 Warfarin Sodium (Coumadin) 4 mg DAILY@1600 PO 02/18/17 16:00 02/21/17 16:52 Prednisone (Deltasone) 2.5 mg DAILY PO 02/19/17 09:00 02/23/17 08:59 02/22/17 10:03 Objective Remarks GENERAL: Middle aged female sitting up in bed in no acute distress SKIN: Warm and dry. scattered bruising on extremities. HEAD: Normocephalic. EYES: No injection or drainage. NECK: Supple, trachea midline. CARDIOVASCULAR: +S1/S2 RESPIRATORY: Clear anteriorly. Breathing unlabored on 2 L nasal cannula GASTROINTESTINAL: Abdomen soft, non-tender, nondistended. EXTREMITIES: No cyanosis NEUROLOGICAL: Normal speech. Moving all extremities. Assessment/Plan Problem List: (1) Aortic stenosis ICD Codes: I35.0 - Nonrheumatic aortic (valve) stenosis Status: Chronic Plan: on heparin bridge to Coumadin. Pharmacy managing -- Dr. Bustamante has declined TAVR for now -- Continue heparin until INR has been therapeutic for 48 ours -- She appears to be not a candidate for TAVR due to multiple comorbidities. -- If she is considered not a candidate for surgery, Cardiology is recommending hospice. 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 (3) new atrial fibrillation, RVR Assessment 56 year-old female with pancytopenia found to have severe aortic stenosis Plan 1. INR pending today 2. Okay for discharge once INR has been therapeutic 2 days 3. Monitor CBC, PT/INR Attending Statement The exam, history, and the medical decision-making described in the above note were completed with the assistance of the mid-level provider. I reviewed and agree with the findings presented. I attest that I had a [id number] encounter with the patient on the same day, and personally performed and documented my assessment and findings in the medical record Problem Qualifiers (1) Aortic stenosis: Qualified Codes: I35.0 - Nonrheumatic aortic (valve) stenosis Jo Grace Feb 22, 2017 12:57 Wicho Yun MD Feb 23, 2017 00:44
[2017-02-22 13:05] LABS: APTT (PATIENT) 92.7 SEC (24.3-30.1)
--- NOTE | 2017-02-22 13:08 | HHI.PR ---
Subjective Remarks Follow-up anticoagulation. She has no new complaints. Tolerating heparin drip INR of 2.6. Discussed with RN Objective Vitals Vital Signs Date Time Temp Pulse Resp B/P (MAP) Pulse Ox O2 Delivery O2 Flow Rate FiO2 02/22/17 12:14 97.7 82 18 99/61 (74) 98 02/22/17 11:08 Nasal Cannula 2.00 02/22/17 08:03 97.2 61 18 120/66 (84) 98 02/22/17 04:02 90 02/22/17 04:00 97.8 99 21 120/67 (84) 100 02/22/17 00:11 91 02/22/17 00:00 97.4 77 19 130/73 (92) 95 02/21/17 21:45 Nasal Cannula 3.00 02/21/17 20:09 71 02/21/17 20:00 97.8 83 19 126/75 (92) 100 02/21/17 19:05 99 Nasal Cannula 2.00 02/21/17 16:03 97.6 100 18 121/71 (88) 99 02/21/17 16:00 79 02/21/17 16:00 Nasal Cannula 2.00 I/O 02/21/17 02/21/17 02/21/17 02/22/17 02/22/17 02/22/17 07:00 15:00 23:00 07:00 15:00 23:00 Intake Total 561 ml 360 ml 706 ml Balance 561 ml 360 ml 706 ml Intake Oral 320 ml 360 ml 400 ml IV Total 241 ml 306 ml # Voids 2 3 3 # Bowel Movements 0 0 Result Diagram: 02/20/17 1045 02/18/17 0813 Imaging Last Impressions Chest X-Ray 02/17/17 0600 Signed Impressions: Service Date/Time: Friday, February 17, 2017 04:33 - CONCLUSION: No change in extensive left-sided pleural based opacity and left lower lung consolidation versus atelectasis. New right lung base opacity and new small right pleural effusion. Raheel Owen MD Bone Biopsy CT 02/10/17 0000 Signed Impressions: Service Date/Time: Monday, February 13, 2017 16:15 - CONCLUSION: 1. Uncomplicated CT guided bone marrow aspirate. 2. Uncomplicated CT guided bone marrow biopsy. Monroe Solitario MD Head CT 02/03/17 0000 Signed Impressions: Service Date/Time: Friday, February 03, 2017 16:25 - CONCLUSION: Periventricular white matter changes otherwise negative. Raf Lindsay MD FACR Objective Remarks GENERAL: This is an averagely built middle-aged white female who is pale and Alert. CHEST: Decreased breath sounds CARDIAC: Heart sounds are regular S1-S2 with a systolic ejection murmur 3/6 at the left sternal border. ABDOMEN: Soft, protuberant without masses. No organomegaly. EXTREMITIES: 1 + edema. Decreased pulses. No calf tenderness. NEUROLOGIC: Reflexes 1+. The patient does move all extremities well with no gross motor deficits. SKIN: No lesions noted. Procedures 02/13/17 bone marrow biopsy A/P Problem List: (1) UTI (urinary tract infection) ICD Code: N39.0 - Urinary tract infection, site not specified Status: Acute (2) Hypokalemia ICD Code: E87.6 - Hypokalemia Status: Resolved (3) Severe sepsis ICD Code: A41.9 - Sepsis, unspecified organism; R65.20 - Severe sepsis without septic shock Status: Resolved (4) Encephalopathy ICD Code: G93.40 - Encephalopathy, unspecified Status: Resolved (5) Aortic stenosis ICD Code: I35.0 - Nonrheumatic aortic (valve) stenosis Status: Chronic (6) COPD (chronic obstructive pulmonary disease) ICD Code: J44.9 - Chronic obstructive pulmonary disease, unspecified Status: Chronic (7) pancytopenia, etiology undetermined, suspect MDS Status: Acute (8) Physical deconditioning ICD Code: R53.81 - Other malaise Status: Chronic Assessment and Plan 1. Severe sepsis secondary to UTI: Culture with multidrug resistant Enterobacter cloacae. Status post course of imipenem. Infectious disease has signed off. 2. Severe aortic stenosis: Failing medical management. May be a candidate for TAVR following rehab status post cardiology evaluation. Echocardiogram from December 2016 shows normal EF. 3. Atrial fibrillation: Continue digoxin. Heparin drip and Coumadin INR 2.6 today. Will need to be on heparin drip until INR is therapeutic 48 hours prior hematology. Possible discharge in the morning 4. Thrombocytopenia/pancytopenia: Appreciate hematology recommendations. 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 Acute encephalopathy secondary to sepsis: CT head negative. Resolved 6. COPD, chronic respiratory failure: Status post recent thoracotomy. Continue nebulizer treatments, oxygen and wean prednisone. Appreciate pulmonology recommendations. 7. Hypokalemia: Improved. Continue potassium supplementation. 8. Deconditioning: Continue physical therapy, occupational therapy. 9. DVT prophylaxis: Heparin drip, coumadin. Discharge Planning Will need SNF/rehab. Plan for discharge when INR has been therapeutic for 48 hours then heparin drip can be discontinued. Possible discharge in the morning Problem Qualifiers (1) UTI (urinary tract infection): Qualified Codes: N30.00 - Acute cystitis without hematuria (2) Aortic stenosis: Qualified Codes: I35.0 - Nonrheumatic aortic (valve) stenosis Chung Yadav MD Feb 22, 2017 13:08
[2017-02-22] MEDS ORDERED: POTA10CA PO (13:16)
[2017-02-22] MEDS ORDERED: DILT120C50 PO (13:16)
[2017-02-22] MEDS ORDERED: MAGN400T2 PO (13:16)
[2017-02-22] MEDS ORDERED: DIGO0.12 PO (13:16)
[2017-02-22] MEDS ORDERED: OXYC1TAB36 PO (13:16)
[2017-02-22] MEDS ORDERED: FURO20TA PO (13:16)
[2017-02-22] MEDS ORDERED: COUM4TAB PO (13:16)
--- NOTE | 2017-02-22 13:17 | HHI.DCPOC ---
Discharge Care Plan Diagnosis: (1) Aortic stenosis Your Health Problems Are: Difficulty with ADL Exercise Tolerance Goals to Promote Your Health * To prevent worsening of your condition and complications * To maintain your health at the optimal level Directions to Meet Your Goals Take your medications as prescribed Follow your dietary instruction Follow activity as directed Keep your appointments as scheduled Take your immunizations and boosters as scheduled If your symptoms worsen call your PCP, if no PCP go to Urgent Care Center or Emergency Room Smoking is Dangerous to Your Health. Avoid second hand smoke Call the 24-hour hour crisis hotline for domestic abuse at Chung Yadav MD Feb 22, 2017 13:17
[2017-02-22] MEDS: WARFARIN SOD 4 MG TAB PO SCH (15:23)
--- NOTE | 2017-02-22 19:16 | HHI.PR ---
Subjective Remarks No complaints. awaits transfer to rehab.On coumadin to get INR >2.0, and on Heparin drip On o2 2 L. Leg edema is worse. Objective Vital Signs Date Time Temp Pulse Resp B/P (MAP) Pulse Ox O2 Delivery O2 Flow Rate FiO2 02/22/17 16:00 97.5 105 18 114/66 (82) 99 02/22/17 12:14 97.7 82 18 99/61 (74) 98 02/22/17 11:08 Nasal Cannula 2.00 02/22/17 08:03 97.2 61 18 120/66 (84) 98 02/22/17 08:00 Nasal Cannula 3.00 02/22/17 04:02 90 02/22/17 04:00 97.8 99 21 120/67 (84) 100 02/22/17 00:11 91 02/22/17 00:00 97.4 77 19 130/73 (92) 95 02/21/17 21:45 Nasal Cannula 3.00 02/21/17 20:09 71 02/21/17 20:00 97.8 83 19 126/75 (92) 100 I/O 02/21/17 02/21/17 02/21/17 02/22/17 02/22/17 02/22/17 06:59 14:59 22:59 06:59 14:59 22:59 Intake Total 561 ml 360 ml 706 ml 480 ml Balance 561 ml 360 ml 706 ml 480 ml Intake Oral 320 ml 360 ml 400 ml 480 ml IV Total 241 ml 306 ml # Voids 2 3 3 4 # Bowel Movements 0 0 0 Result Diagram: 02/20/17 1045 02/18/17 0813 Objective Remarks GENERAL: This is an averagely built middle-aged white female who is pale and Alert. HEENT: Head normocephalic. Pupils are reactive and equal. Tongue moist. Throat is clear. NECK: No bruits. No venous distension. Trachea midline. No thyroid enlargement. CHEST: diminished movements of the left chest. Breath sounds diminished over the left mid and lower chest . CARDIAC: Heart sounds are irregular S1-S2 with a systolic ejection murmur 3/6 at the left sternal border. ABDOMEN: Soft, protuberant without masses. No organomegaly. EXTREMITIES: 1 + edema. Decreased pulses. No calf tenderness. NEUROLOGIC: Reflexes 1+. The patient does move all extremities well with no gross motor deficits. SKIN: No lesions noted. Assessment and Plan Assessment and Plan IMPRESSION 1. Chronic bilateral leg edema (lymphedema). 2. Sepsis with UTI 3. COPD and chronic bronchitis 4. Severe deconditioning. 5. Status post VAT thoracotomy left chest with decortication of chronic loculated effusion 6. Atelectasis left lower lung. 7. Possible CHF. Plan : 1. Continue lasix 20 mg bid . 2. O2 at 2 L. 3. Nebs BID , duoneb.PRN 4. PT and OT. 5. coumadin 2 mg daily 6. D/C Heparin drip . Venessa Chung MD Feb 22, 2017 19:16
[2017-02-22 19:24] LABS: APTT (PATIENT) 52.5 SEC (24.3-30.1)
[2017-02-22] MEDS: RESP: ALBUTEROL 2.5 MG/IPRATROPIUM 0.5 MG NEB (PRN) NEB (22:13)
[2017-02-23] VITALS (9 sets, daily range): BP systolic 109–148; BP diastolic 69–91; PULSE 86–132; RESP 16–18; TEMP 97.2–98.9; O2SAT 93–100
[2017-02-23 03:56] LABS: HEMATOCRIT 26.9 % (35.0-46.0); PLATELET COUNT 117 TH/MM3 (150-450); RED BLOOD COUNT 2.69 MIL/MM3 (4.00-5.30); RED CELL DISTRIBUTION WIDTH 22.6 % (11.6-17.2); REVIEW FLAG FINAL; WHITE BLOOD COUNT 4.8 TH/MM3 (4.0-11.0)
[2017-02-23 04:13] LABS: APTT (PATIENT) 66.4 SEC (24.3-30.1); INTERNATIONAL NORMALIZED RATIO 2.6 RATIO; PROTHROMBIN TIME - PATIENT 26.7 SEC (9.8-11.6)
[2017-02-23] MEDS: BETHANECHOL CHL 25 MG TAB PO SCH ×3 (06:34→21:55)
[2017-02-23] MEDS: oxyCODONE/ACETAMINOPHEN 10 MG/325 MG TAB PO PRN ×4 (06:34→22:02)
[2017-02-23] MEDS: HEPARIN-D5W 25,000 U/250 ML 250 ML IV PRN (06:38)
[2017-02-23] MEDS: FUROSEMIDE 20 MG TAB PO SCH ×2 (08:37→18:01)
[2017-02-23] MEDS: FERROUS SULFATE 300 MG /5ML UDC PO SCH (08:37)
[2017-02-23] MEDS: DIGOXIN 0.125 MG TAB PO SCH (08:38)
[2017-02-23] MEDS: POTASSIUM CHLORIDE 10 MEQ CAP PO SCH ×3 (08:39→18:00)
[2017-02-23] MEDS: MAGNESIUM OXIDE 400 MG TAB PO SCH ×2 (08:41→21:56)
[2017-02-23] MEDS: TIOTROPIUM BROMIDE 18 MCG INH INH SCH (08:53)
[2017-02-23] MEDS ORDERED: DILTIAZEM-CD 120 MG CAP ER PO SCH (09:00)
[2017-02-23] MEDS: TAMSULOSIN HCL 0.4 MG CAP PO SCH (10:01)
--- NOTE | 2017-02-23 11:51 | HHI.PR ---
Objective Vitals Vital Signs Date Time Temp Pulse Resp B/P (MAP) Pulse Ox O2 Delivery O2 Flow Rate FiO2 02/23/17 08:08 126 02/23/17 08:00 97.9 132 16 109/69 (82) 98 02/23/17 00:00 114 02/23/17 00:00 98.9 114 18 148/71 (96) 93 02/23/17 00:00 97.2 125 18 129/91 (104) 94 02/23/17 00:00 Nasal Cannula 3.00 02/22/17 22:13 98 Nasal Cannula 2.00 02/22/17 20:00 97.3 135 20 107/70 (82) 95 02/22/17 20:00 Nasal Cannula 3.00 02/22/17 19:55 129 02/22/17 16:00 97.5 105 18 114/66 (82) 99 02/22/17 16:00 134 02/22/17 12:14 97.7 82 18 99/61 (74) 98 I/O 02/22/17 02/22/17 02/22/17 02/23/17 02/23/17 02/23/17 07:00 15:00 23:00 07:00 15:00 23:00 Intake Total 706 ml 480 ml 121 ml Balance 706 ml 480 ml 121 ml Intake Oral 400 ml 480 ml IV Total 306 ml 121 ml # Voids 3 4 10 # Bowel Movements 0 0 7 Result Diagram: 02/23/17 0337 Objective Remarks GENERAL: This is an averagely built middle-aged white female who is pale and Alert. CHEST: Decreased breath sounds CARDIAC: Heart sounds are regular S1-S2 with a systolic ejection murmur 3/6 at the left sternal border. ABDOMEN: Soft, protuberant without masses. No organomegaly. EXTREMITIES: 1 + edema. Decreased pulses. No calf tenderness. NEUROLOGIC: Reflexes 1+. The patient does move all extremities well with no gross motor deficits. SKIN: No lesions noted. Procedures 02/13/17 bone marrow biopsy A/P Problem List: (1) UTI (urinary tract infection) ICD Code: N39.0 - Urinary tract infection, site not specified Status: Acute (2) Hypokalemia ICD Code: E87.6 - Hypokalemia Status: Resolved (3) Severe sepsis ICD Code: A41.9 - Sepsis, unspecified organism; R65.20 - Severe sepsis without septic shock Status: Resolved (4) Encephalopathy ICD Code: G93.40 - Encephalopathy, unspecified Status: Resolved (5) Aortic stenosis ICD Code: I35.0 - Nonrheumatic aortic (valve) stenosis Status: Chronic (6) COPD (chronic obstructive pulmonary disease) ICD Code: J44.9 - Chronic obstructive pulmonary disease, unspecified Status: Chronic (7) pancytopenia, etiology undetermined, suspect MDS Status: Acute (8) Physical deconditioning ICD Code: R53.81 - Other malaise Status: Chronic Assessment and Plan 1. Severe sepsis secondary to UTI: Culture with multidrug resistant Enterobacter cloacae. Status post course of imipenem. Infectious disease has signed off. 2. Severe aortic stenosis: Failing medical management. May be a candidate for TAVR following rehab status post cardiology evaluation. Echocardiogram from December 2016 shows normal EF. 3. Atrial fibrillation: Continue digoxin. Heparin drip and Coumadin INR 2.6 today. Will need to be on heparin drip until INR is therapeutic 48 hours prior hematology. Possible discharge in the morning 4. Thrombocytopenia/pancytopenia: Appreciate hematology recommendations. 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 Acute encephalopathy secondary to sepsis: CT head negative. Resolved 6. COPD, chronic respiratory failure: Status post recent thoracotomy. Continue nebulizer treatments, oxygen and wean prednisone. Appreciate pulmonology recommendations. 7. Hypokalemia: Improved. Continue potassium supplementation. 8. Deconditioning: Continue physical therapy, occupational therapy. 9. DVT prophylaxis: Heparin drip, coumadin. Discharge Planning Will need SNF/rehab. Plan for discharge when INR has been therapeutic for 48 hours then heparin drip can be discontinued. Possible discharge in the morning Problem Qualifiers (1) UTI (urinary tract infection): Qualified Codes: N30.00 - Acute cystitis without hematuria (2) Aortic stenosis: Qualified Codes: I35.0 - Nonrheumatic aortic (valve) stenosis Chung Yadav MD Feb 23, 2017 11:51
[2017-02-23] MEDS ORDERED: DILTIAZEM INJ 125 MG in SODIUM CHLORIDE 0.9% INJ 100 ML IV PRN (12:00)
[2017-02-23] MEDS ORDERED: DILTIAZEM HCL 25 MG/5 ML VIAL IV ONE (12:00)
[2017-02-23 12:01] LABS: MAGNESIUM 2.4 MG/DL (1.5-2.5); POTASSIUM 4.4 MEQ/L (3.5-5.1)
[2017-02-23] MEDS: SODIUM CHLORIDE 0.9% FLUSH 10 ML FLUSH IV FLUSH SCH ×2 (13:20→21:56)
--- NOTE | 2017-02-23 14:33 | HHI.PR ---
Subjective Remarks Follow-up Betsy blood Developed RVR overnight initially complained of palpitations. Denies any other symptoms. Also patient still has not been accepted by rehabilitation because of financial issues. Denies having diarrhea though listed in the EMR 7 BM past 24 hours. Discussed with RN and case management Objective Vitals Vital Signs Date Time Temp Pulse Resp B/P (MAP) Pulse Ox O2 Delivery O2 Flow Rate FiO2 02/23/17 12:01 118 02/23/17 12:00 98.2 96 16 118/71 (87) 100 02/23/17 08:08 126 02/23/17 08:00 97.9 132 16 109/69 (82) 98 02/23/17 08:00 Nasal Cannula 2.00 02/23/17 00:00 114 02/23/17 00:00 98.9 114 18 148/71 (96) 93 02/23/17 00:00 97.2 125 18 129/91 (104) 94 02/23/17 00:00 Nasal Cannula 3.00 02/22/17 22:13 98 Nasal Cannula 2.00 02/22/17 20:00 97.3 135 20 107/70 (82) 95 02/22/17 20:00 Nasal Cannula 3.00 02/22/17 19:55 129 02/22/17 16:00 97.5 105 18 114/66 (82) 99 02/22/17 16:00 134 I/O 02/22/17 02/22/17 02/22/17 02/23/17 02/23/17 02/23/17 07:00 15:00 23:00 07:00 15:00 23:00 Intake Total 706 ml 480 ml 121 ml Balance 706 ml 480 ml 121 ml Intake Oral 400 ml 480 ml IV Total 306 ml 121 ml # Voids 3 4 10 # Bowel Movements 0 0 7 Result Diagram: 02/23/17 0337 02/23/17 1127 Objective Remarks GENERAL: This is an averagely built middle-aged white female who is pale and Alert. CHEST: Decreased breath sounds CARDIAC: Irregularly irregular tachycardic S1-S2 with a systolic ejection murmur 3/6 at the left sternal border. ABDOMEN: Soft, protuberant without masses. No organomegaly. EXTREMITIES: 1 + edema. Decreased pulses. No calf tenderness. NEUROLOGIC: Reflexes 1+. The patient does move all extremities well with no gross motor deficits. SKIN: No lesions noted. Procedures 02/13/17 bone marrow biopsy A/P Problem List: (1) UTI (urinary tract infection) ICD Code: N39.0 - Urinary tract infection, site not specified Status: Acute (2) Hypokalemia ICD Code: E87.6 - Hypokalemia Status: Resolved (3) Severe sepsis ICD Code: A41.9 - Sepsis, unspecified organism; R65.20 - Severe sepsis without septic shock Status: Resolved (4) Encephalopathy ICD Code: G93.40 - Encephalopathy, unspecified Status: Resolved (5) Aortic stenosis ICD Code: I35.0 - Nonrheumatic aortic (valve) stenosis Status: Chronic (6) COPD (chronic obstructive pulmonary disease) ICD Code: J44.9 - Chronic obstructive pulmonary disease, unspecified Status: Chronic (7) pancytopenia, etiology undetermined, suspect MDS Status: Acute (8) Physical deconditioning ICD Code: R53.81 - Other malaise Status: Chronic Assessment and Plan 1. Severe sepsis secondary to UTI: Culture with multidrug resistant Enterobacter cloacae. Status post course of imipenem. Infectious disease has signed off. 2. Severe aortic stenosis: Failing medical management. May be a candidate for TAVR following rehab status post cardiology evaluation. Echocardiogram from December 2016 shows normal EF. 3. Atrial fibrillation: RVR today. Cardizem Tenormin grams IV 1 and increase Cardizem CD to 180 mg daily and continue digoxin. Check BMP. Continue Coumadin therapeutic for the past 48 hrs discontinue heparin drip Possible discharge in the morning 4. Thrombocytopenia/pancytopenia: Appreciate hematology recommendations. 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 Acute encephalopathy secondary to sepsis: CT head negative. Resolved 6. COPD, chronic respiratory failure: Status post recent thoracotomy. Continue nebulizer treatments, oxygen and wean prednisone last dose today. Appreciate pulmonology recommendations. 7. Hypokalemia: Improved. Continue potassium supplementation. 8. Deconditioning: Continue physical therapy, occupational therapy. 9. DVT prophylaxis: Coumadin Discharge Planning Will need SNF/rehab. Plan for discharge tomorrow when heart rate controlled Problem Qualifiers (1) UTI (urinary tract infection): Qualified Codes: N30.00 - Acute cystitis without hematuria (2) Aortic stenosis: Qualified Codes: I35.0 - Nonrheumatic aortic (valve) stenosis Chung Yadav MD Feb 23, 2017 14:32
[2017-02-24] VITALS (13 sets, daily range): BP systolic 101–138; BP diastolic 63–92; PULSE 80–126; RESP 17–20; TEMP 97.2–98.2; O2SAT 93–99
[2017-02-24] MEDS: BETHANECHOL CHL 25 MG TAB PO SCH ×3 (06:14→21:00)
[2017-02-24] MEDS: oxyCODONE/ACETAMINOPHEN 10 MG/325 MG TAB PO PRN ×4 (06:14→20:57)
[2017-02-24] MEDS: RESP: ALBUTEROL 2.5 MG/IPRATROPIUM 0.5 MG NEB (PRN) NEB (06:25)
[2017-02-24] MEDS ORDERED: DILTIAZEM-CD 180 MG CAP ER PO ONE (08:30)
[2017-02-24] MEDS ORDERED: DILTIAZEM-CD 180 MG CAP ER PO SCH (09:00)
[2017-02-24] MEDS: FERROUS SULFATE 300 MG /5ML UDC PO SCH (09:13)
[2017-02-24] MEDS: SODIUM CHLORIDE 0.9% FLUSH 10 ML FLUSH IV FLUSH SCH ×2 (09:13→20:58)
[2017-02-24] MEDS: FUROSEMIDE 20 MG TAB PO SCH ×2 (09:13→18:26)
[2017-02-24] MEDS: TAMSULOSIN HCL 0.4 MG CAP PO SCH (09:13)
[2017-02-24] MEDS: POTASSIUM CHLORIDE 10 MEQ CAP PO SCH ×3 (09:14→18:26)
[2017-02-24] MEDS: MAGNESIUM OXIDE 400 MG TAB PO SCH ×2 (09:14→20:56)
[2017-02-24] MEDS: DIGOXIN 0.125 MG TAB PO SCH (09:14)
[2017-02-24] MEDS: TIOTROPIUM BROMIDE 18 MCG INH INH SCH (09:16)
[2017-02-24 11:16] LABS: INTERNATIONAL NORMALIZED RATIO 2.6 RATIO
--- NOTE | 2017-02-24 12:32 | HHI.PR ---
Subjective Remarks Follow-up A. fib with RVR. Patient denies palpitations, heart rate 88 Cardizem drip already discontinued. Complains of migraine improved with Percocet. Discussed with RN and case management Objective Vitals Vital Signs Date Time Temp Pulse Resp B/P (MAP) Pulse Ox O2 Delivery O2 Flow Rate FiO2 02/24/17 09:00 88 18 120/68 (85) 02/24/17 08:00 Nasal Cannula 2.00 02/24/17 07:30 98.0 112 17 104/70 (81) 99 02/24/17 07:01 123 122/68 02/24/17 06:38 98 Nasal Cannula 2.00 02/24/17 05:40 97.4 96 18 133/74 (93) 97 02/24/17 03:45 107 02/24/17 00:48 97.4 118 17 133/92 (106) 93 02/23/17 23:43 106 02/23/17 22:05 Nasal Cannula 2.00 02/23/17 19:49 86 02/23/17 19:48 97.2 105 16 148/76 (100) 98 02/23/17 16:00 97.6 100 16 127/73 (91) 97 I/O 02/23/17 02/23/17 02/23/17 02/24/17 02/24/17 02/24/17 07:00 15:00 23:00 07:00 15:00 23:00 Intake Total 121 ml 480 ml 300 ml Balance 121 ml 480 ml 300 ml Intake Oral 480 ml 300 ml IV Total 121 ml # Voids 10 3 1 # Bowel Movements 7 Result Diagram: 02/23/17 0337 02/23/17 1127 Imaging Last Impressions Chest X-Ray 02/17/17 0600 Signed Impressions: Service Date/Time: Friday, February 17, 2017 04:33 - CONCLUSION: No change in extensive left-sided pleural based opacity and left lower lung consolidation versus atelectasis. New right lung base opacity and new small right pleural effusion. Raheel Owen MD Bone Biopsy CT 02/10/17 0000 Signed Impressions: Service Date/Time: Monday, February 13, 2017 16:15 - CONCLUSION: 1. Uncomplicated CT guided bone marrow aspirate. 2. Uncomplicated CT guided bone marrow biopsy. Monroe Solitario MD Head CT 02/03/17 0000 Signed Impressions: Service Date/Time: Friday, February 03, 2017 16:25 - CONCLUSION: Periventricular white matter changes otherwise negative. Raf Lindsay MD FACR Objective Remarks GENERAL: This is an averagely built middle-aged white female who is pale and Alert. CHEST: Decreased breath sounds CARDIAC: Irregularly irregular S1-S2 with a systolic ejection murmur 3/6 at the left sternal border. ABDOMEN: Soft, protuberant without masses. No organomegaly. EXTREMITIES: 1 + edema. Decreased pulses. No calf tenderness. NEUROLOGIC: Reflexes 1+. The patient does move all extremities well with no gross motor deficits. SKIN: No lesions noted. Procedures 02/13/17 bone marrow biopsy A/P Problem List: (1) UTI (urinary tract infection) ICD Code: N39.0 - Urinary tract infection, site not specified Status: Acute (2) Hypokalemia ICD Code: E87.6 - Hypokalemia Status: Resolved (3) Severe sepsis ICD Code: A41.9 - Sepsis, unspecified organism; R65.20 - Severe sepsis without septic shock Status: Resolved (4) Encephalopathy ICD Code: G93.40 - Encephalopathy, unspecified Status: Resolved (5) Aortic stenosis ICD Code: I35.0 - Nonrheumatic aortic (valve) stenosis Status: Chronic (6) COPD (chronic obstructive pulmonary disease) ICD Code: J44.9 - Chronic obstructive pulmonary disease, unspecified Status: Chronic (7) pancytopenia, etiology undetermined, suspect MDS Status: Acute (8) Physical deconditioning ICD Code: R53.81 - Other malaise Status: Chronic Assessment and Plan 1. Severe sepsis secondary to UTI: Culture with multidrug resistant Enterobacter cloacae. Status post course of imipenem. Infectious disease has signed off. 2. Severe aortic stenosis: Failing medical management. May be a candidate for TAVR following rehab status post cardiology evaluation. Echocardiogram from December 2016 shows normal EF. 3. Atrial fibrillation: Improved. Increased Cardizem CD to 180 mg daily and continue digoxin. Cardizem drip as needed. Continue Coumadin therapeutic for the past 72 hrs discontinued heparin drip 4. Thrombocytopenia/pancytopenia: Appreciate hematology recommendations. 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 Acute encephalopathy secondary to sepsis: CT head negative. Resolved 6. COPD, chronic respiratory failure: Status post recent thoracotomy. Continue nebulizer treatments and oxygen s/p prednisone taper. Appreciate pulmonology recommendations. 7. Hypokalemia: Improved. Continue potassium supplementation. 8. Deconditioning: Continue physical therapy, occupational therapy. 9. DVT prophylaxis: Coumadin Discharge Planning Will need SNF/rehab. Stable for discharge Problem Qualifiers (1) UTI (urinary tract infection): Qualified Codes: N30.00 - Acute cystitis without hematuria (2) Aortic stenosis: Qualified Codes: I35.0 - Nonrheumatic aortic (valve) stenosis Chung Yadav MD Feb 24, 2017 12:32
--- NOTE | 2017-02-24 12:57 | HHI.PR ---
Subjective Remarks No complaints. Will transfer to rehab. On coumadin with INR >2 On o2 2 L. Leg edema is better. Objective Vital Signs Date Time Temp Pulse Resp B/P (MAP) Pulse Ox O2 Delivery O2 Flow Rate FiO2 02/24/17 09:00 88 18 120/68 (85) 02/24/17 08:00 Nasal Cannula 2.00 02/24/17 07:30 98.0 112 17 104/70 (81) 99 02/24/17 07:01 123 122/68 02/24/17 06:38 98 Nasal Cannula 2.00 02/24/17 05:40 97.4 96 18 133/74 (93) 97 02/24/17 03:45 107 02/24/17 00:48 97.4 118 17 133/92 (106) 93 02/23/17 23:43 106 02/23/17 22:05 Nasal Cannula 2.00 02/23/17 19:49 86 02/23/17 19:48 97.2 105 16 148/76 (100) 98 02/23/17 16:00 97.6 100 16 127/73 (91) 97 I/O 02/23/17 02/23/17 02/23/17 02/24/17 02/24/17 02/24/17 07:00 15:00 23:00 07:00 15:00 23:00 Intake Total 121 ml 480 ml 300 ml Balance 121 ml 480 ml 300 ml Intake Oral 480 ml 300 ml IV Total 121 ml # Voids 10 3 1 # Bowel Movements 7 Result Diagram: 02/23/17 0337 02/23/17 1127 Objective Remarks GENERAL: This is an averagely built middle-aged white female who is pale and Alert. HEENT: Head normocephalic. Pupils are reactive and equal. Tongue moist. Throat is clear. NECK: No bruits. No venous distension. Trachea midline. No thyroid enlargement. CHEST: diminished movements of the left chest. Breath sounds diminished over the left mid and lower chest .Occ wheeze. CARDIAC: Heart sounds are irregular S1-S2 with a systolic ejection murmur 3/6 at the left sternal border. ABDOMEN: Soft, protuberant without masses. No organomegaly. EXTREMITIES: 1 + edema. Decreased pulses. No calf tenderness. NEUROLOGIC: Reflexes 1+. The patient does move all extremities well with no gross motor deficits. SKIN: No lesions noted. Assessment and Plan Assessment and Plan IMPRESSION 1. Chronic bilateral leg edema (lymphedema). 2. Sepsis with UTI 3. COPD and chronic bronchitis 4. Severe deconditioning. 5. Status post VAT thoracotomy left chest with decortication of chronic loculated effusion 6. Atelectasis left lower lung. 7. Possible CHF. Plan : 1. Continue lasix 20 mg bid . 2. O2 at 2 L.N/C 3. Nebs BID , duoneb.PRN 4. PT and OT. 5. coumadin 2 mg daily 6. To rehab and will f/u as OP in 2 weeks Venessa Chung MD Feb 24, 2017 12:56
[2017-02-24] MEDS ORDERED: WARFARIN SOD 3 MG TAB PO SCH (16:00)
[2017-02-25] VITALS: BP 114/66; PULSE 113; RESP 20; TEMP 97.6; O2SAT 97
[2017-02-25 03:45] VITALS: PULSE 73
[2017-02-25 04:00] VITALS: BP 110/58; PULSE 91; RESP 20; TEMP 97.6; O2SAT 97
[2017-02-25] MEDS: oxyCODONE/ACETAMINOPHEN 10 MG/325 MG TAB PO PRN ×2 (05:37→10:38)
[2017-02-25] MEDS: BETHANECHOL CHL 25 MG TAB PO SCH (05:37)
[2017-02-25] MEDS ORDERED: DILTIAZEM-CD 180 MG CAP ER PO SCH (06:00)
[2017-02-25 07:12] VITALS: O2SAT 99
[2017-02-25 08:03] VITALS: BP 137/66; PULSE 101; RESP 17; TEMP 97.3; O2SAT 97
[2017-02-25] MEDS: DIGOXIN 0.125 MG TAB PO SCH (09:32)
[2017-02-25] MEDS: POTASSIUM CHLORIDE 10 MEQ CAP PO SCH (09:32)
[2017-02-25] MEDS: MAGNESIUM OXIDE 400 MG TAB PO SCH (09:32)
[2017-02-25] MEDS: TAMSULOSIN HCL 0.4 MG CAP PO SCH (09:33)
[2017-02-25] MEDS: FERROUS SULFATE 300 MG /5ML UDC PO SCH (09:33)
[2017-02-25] MEDS: FUROSEMIDE 20 MG TAB PO SCH (09:37)
[2017-02-25 10:45] LABS: INTERNATIONAL NORMALIZED RATIO 2.7 RATIO; PROTHROMBIN TIME - PATIENT 27.3 SEC (9.8-11.6)
--- NOTE | 2017-02-25 12:24 | HHI.DS ---
Discharge Summary Admission Date Jan 31, 2017 at 04:24 Discharge Date: Feb 25, 2017 Admitting Diagnosis UTI. Dependent edema. (1) UTI (urinary tract infection) ICD Code: N39.0 - Urinary tract infection, site not specified Diagnosis: Principal Status: Acute (2) Hypokalemia ICD Code: E87.6 - Hypokalemia Diagnosis: Principal Status: Resolved (3) Severe sepsis ICD Code: A41.9 - Sepsis, unspecified organism; R65.20 - Severe sepsis without septic shock Diagnosis: Principal Status: Resolved (4) Encephalopathy ICD Code: G93.40 - Encephalopathy, unspecified Diagnosis: Principal Status: Resolved (5) Aortic stenosis ICD Code: I35.0 - Nonrheumatic aortic (valve) stenosis Diagnosis: Principal Status: Chronic (6) COPD (chronic obstructive pulmonary disease) ICD Code: J44.9 - Chronic obstructive pulmonary disease, unspecified Diagnosis: Principal Status: Chronic (7) pancytopenia, etiology undetermined, suspect MDS Diagnosis: Principal Status: Acute (8) Physical deconditioning ICD Code: R53.81 - Other malaise Diagnosis: Principal Status: Chronic Procedures 02/13/17 bone marrow biopsy Brief History - From Admission This is a 56-year-old female who presents to the emergency department complaining of worsening bilateral lower extremity swelling since she was discharged from [facility] after being treated for left pleural effusion status post thoracotomy. She has history of chronic bilateral lower extremity lymphedema and admits noncompliance to medications and salt restriction. She also reports of generalized weakness and difficulty holding her urine. She has UTI and has been started on ciprofloxacin. Her telemetry shows sinus tachycardia but denies chest pain and palpitations. She has dyspnea on exertion unchanged from previous from history of COPD. At this time she has no other complaints. All other systems reviewed negative CBC/BMP: 02/23/17 0337 02/23/17 1127 Significant Findings Laboratory Tests Test 02/22/17 18:21 02/23/17 03:37 02/23/17 11:27 02/24/17 08:53 Activated Partial Thromboplast Time 52.5 SEC (24.3-30.1) 66.4 SEC (24.3-30.1) Red Blood Count 2.69 MIL/MM3 (4.00-5.30) Hemoglobin 9.2 GM/DL (11.6-15.3) Hematocrit 26.9 % (35.0-46.0) Red Cell Distribution Width 22.6 % (11.6-17.2) Platelet Count 117 TH/MM3 (150-450) Prothrombin Time 26.7 SEC (9.8-11.6) 26.0 SEC (9.8-11.6) Creatinine 0.49 MG/DL (0.50-1.00) Carbon Dioxide Level 33.0 MEQ/L (21.0-32.0) Test 02/25/17 10:03 Prothrombin Time 27.3 SEC (9.8-11.6) Imaging Last Impressions Chest X-Ray 02/17/17 0600 Signed Impressions: Service Date/Time: Friday, February 17, 2017 04:33 - CONCLUSION: No change in extensive left-sided pleural based opacity and left lower lung consolidation versus atelectasis. New right lung base opacity and new small right pleural effusion. Raheel Owen MD Bone Biopsy CT 02/10/17 0000 Signed Impressions: Service Date/Time: Monday, February 13, 2017 16:15 - CONCLUSION: 1. Uncomplicated CT guided bone marrow aspirate. 2. Uncomplicated CT guided bone marrow biopsy. Monroe Solitario MD Head CT 02/03/17 0000 Signed Impressions: Service Date/Time: Friday, February 03, 2017 16:25 - CONCLUSION: Periventricular white matter changes otherwise negative. Raf Lindsay MD FACR PE at Discharge GENERAL: This is an averagely built middle-aged white female who is pale and Alert. CHEST: Decreased breath sounds CARDIAC: Irregularly irregular S1-S2 with a systolic ejection murmur 3/6 at the left sternal border. ABDOMEN: Soft, protuberant without masses. No organomegaly. EXTREMITIES: 1 + edema. Decreased pulses. No calf tenderness. NEUROLOGIC: Reflexes 1+. The patient does move all extremities well with no gross motor deficits. SKIN: No lesions noted. Hospital Course 1. Severe sepsis secondary to UTI: Culture with multidrug resistant Enterobacter cloacae. Status post course of imipenem. Infectious disease has signed off. 2. Severe aortic stenosis: Failing medical management. July be a candidate for TAVR following rehab status post cardiology evaluation. Echocardiogram from December 2016 shows normal EF. 3. Atrial fibrillation: Improved now CVR. Increased Cardizem CD to 180 mg daily and continue digoxin. Cardizem drip as needed. Continue Coumadin therapeutic for the past 72 hrs discontinued heparin drip 4. Thrombocytopenia/pancytopenia: Appreciate hematology recommendations. 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 Acute encephalopathy secondary to sepsis: CT head negative. Resolved 6. COPD, chronic respiratory failure: Status post recent thoracotomy. Continue nebulizer treatments and oxygen s/p prednisone taper. Appreciate pulmonology recommendations. 7. Hypokalemia: Improved. Continue potassium supplementation. 8. Deconditioning: Continue physical therapy, occupational therapy. 9. DVT prophylaxis: Coumadin Pt Condition on Discharge: Stable Discharge Disposition: Discharge to SNF Discharge Time: > 30 minutes Discharge Instructions DIET: Follow Instructions for: Heart Healthy Diet Activities you can perform: Regular-No Restrictions Activities to Avoid: Driving Follow up Referrals: Appointment for Follow Up @ [facility] - [facility] @ [facility] - 1 Week PCP Follow-up - 1 Week PCP Follow-up @ [facility] New Orders: PT/INR New Medications: Digoxin (Digoxin) 0.125 Mg Tab 0.125 MG PO DAILY for Regulate Heart Beat, #30 TAB Diltiazem CD 24 HR (Diltiazem CD 24 HR) 120 Mg Caper 120 MG PO DAILY for Regulate Heart Beat, #30 CAP Furosemide (Furosemide) 20 Mg Tab 20 MG PO BID@09,18 for Prevent Heart Failure, #60 TAB Magnesium Oxide (Magnesium Oxide) 400 Mg Tab 400 MG PO Q12HR for Electrolyte Replacement, #60 TAB Oxycodone HCl/Acetaminophen (Oxycodone-Acetaminophen 10-325) 10 Mg-325 Mg Tablet 1 TAB PO Q6H PRN for PAIN SCALE 5-10, #12 TAB Potassium Chloride ER (Potassium Chloride ER) 10 Meq Cap 20 MEQ PO TID for Electrolyte Replacement, #30 CAP Warfarin (Coumadin) 4 Mg Tab 4 MG PO DAILY@1600 for Prevent Blood Clot, #30 TAB Continued Medications: Albuterol 18 GM Inh (Ventolin Hfa 18 GM Inh) 90 Mcg/Act Aer 2 PUFF INH Q4-6H PRN for SHORTNESS OF BREATH, #1 INHALER 0 Refills Bethanechol (Urecholine) 25 Mg Tab 25 MG PO Q8H for urinary retention, #90 TAB Ferrous Sulfate (Ferosul) 325 Mg (65 Mg Iron) Tablet 325 MG PO BID for anemia, #60 TAB Tamsulosin (Flomax) 0.4 Mg Cap 0.4 MG PO DAILY for urinary retention, #30 CAP Tiotropium Inh (Spiriva Handihaler) 18 Mcg Cap 18 MCG INH DAILY for COPD, #30 CAP 0 Refills 1 capsule = 18 mcg Discontinued Medications: Furosemide (Furosemide) 20 Mg Tab 20 MG PO DAILY, #30 TAB 0 Refills Oxycodone HCl/Acetaminophen (Oxycodone-Acetaminophen 10-325) 10 Mg-325 Mg Tablet 1 TAB PO Q4H PRN for PAIN SCALE 5-10, #30 TAB Prednisone (Prednisone) 5 Mg Tab 3 TAB PO DAILY for copd, #90 TAB Chung Yadav MD Feb 25, 2017 12:24
== END 2017-02-25 11:12 | DRG 871 ==
LOC: NEPC 18:58 → NEDA 01-31 04:24 → N04A 01-31 06:14
PROVIDERS: ADMIT Internal Medicine; ATTEND Internal Medicine
PROC: 0T9B70Z Drainage of Bladder with Drainage Device, Via Natural or Artificial Opening (ICD-10-PCS; 2017-01-31)
PROC: 07DR3ZX Extraction of Iliac Bone Marrow, Percutaneous Approach, Diagnostic (ICD-10-PCS; 2017-02-13)
PROC: 30233N1 Transfusion of Nonautologous Red Blood Cells into Peripheral Vein, Percutaneous Approach (ICD-10-PCS; principal; 2017-02-17)
DX: A41.9 Sepsis, unspecified organism (principal); I50.33 Acute on chronic diastolic (congestive) heart failure; G93.40 Encephalopathy, unspecified; J96.10 Chronic respiratory failure, unspecified whether with hypoxia or hypercapnia; D61.818 Other pancytopenia; I48.91 Unspecified atrial fibrillation; G43.909 Migraine, unspecified, not intractable, without status migrainosus; N30.00 Acute cystitis without hematuria; J98.11 Atelectasis; E87.1 Hypo-osmolality and hyponatremia; I27.20 Pulmonary hypertension, unspecified; I35.0 Nonrheumatic aortic (valve) stenosis; Z99.81 Dependence on supplemental oxygen; I49.3 Ventricular premature depolarization; R00.0 Tachycardia, unspecified; J44.9 Chronic obstructive pulmonary disease, unspecified; R39.15 Urgency of urination; I89.0 Lymphedema, not elsewhere classified; Z91.14 Patient's other noncompliance with medication regimen; Z91.19 Patient's noncompliance with other medical treatment and regimen; Z80.1 Family history of malignant neoplasm of trachea, bronchus and lung; E87.6 Hypokalemia; R65.20 Severe sepsis without septic shock; D63.8 Anemia in other chronic diseases classified elsewhere; F32.9 Major depressive disorder, single episode, unspecified; Z87.891 Personal history of nicotine dependence; F41.9 Anxiety disorder, unspecified; Z51.5 Encounter for palliative care; D46.9 Myelodysplastic syndrome, unspecified; D53.9 Nutritional anemia, unspecified; D69.59 Other secondary thrombocytopenia; R11.2 Nausea with vomiting, unspecified
CPT/HCPCS: 36430; 36600; 38221; 70450; 71010; 71020; 76937; 77012; 80048; 80053; 80162; 81001; 82550; 82805; 83605; 83735; 83880; 84134; 84443; 84484; 85007; 85025; 85027; 85097; 85610; 85730; 86850; 86900; 86901; 86920; 87040; 87077; 87086; 87186; 88184; 88185; 88237; 88264; 88280; 88305; 88311; 88313; 93005; 94640; 94664; 96365; 96367; 96375; 99152; 99211; C1830; G0364; G0463; J0282; J0692; J0743; J0744; J1160; J1644; J1650; J1940; J2250; J3010; J3370; J3475; J3480; J7030; J7050; J7060; J7512; J7644; P9016

== ENCOUNTER 2017-03-06 02:22 | Inpatient (IN) | payer SELFPAY ==
[2017-03-06] VITALS (21 sets, daily range): BP systolic 101–143; BP diastolic 57–86; PULSE 78–134; RESP 18–26; TEMP 97.9–98.8; O2SAT 93–100
[~2017-03-06] VITALS: Ht 172.7 cm; Wt 65.0 kg
[~2017-03-06 02:22] MED LIST changes: +COUM4TAB PO; +DIGO0.12 PO; +DILT120C50 PO; +MAGN400T2 PO; +POTA10CA PO; -PRED5TAB PO
--- NOTE | 2017-03-06 03:12 | PD ---
HPI Chief Complaint: Respiratory Distress Time Seen by Provider: 03:02 Travel History International Travel<30 days: No Contact w/Intl Traveler<30days: No Traveled to known affect area: No History of Present Illness HPI 56 years old female complains of shortness of breath. Patient has history of COPD. Patient used inhalers in the past. Patient started having shortness of breath since last night. EMS was called. Patient's O2 saturation was in the 80s and 90s. Patient was given albuterol treatment 2 prior to arrival to the emergency room. Patient's O2 saturation 100%. Patient states that she is feeling better. Patient denies any chest pain. Patient denies any fever chills. Patient denies any coughing congestion. PFSH Past Medical History Arthritis: No Asthma: No Autoimmune Disease: No Anxiety: No Depression: No Heart Rhythm Problems: No Cancer: No Cardiovascular Problems: No High Cholesterol: No Chemotherapy: No Chest Pain: No Congestive Heart Failure: No COPD: Yes Cerebrovascular Accident: No Diabetes: No Diminished Hearing: No Endocrine: No GERD: No Genitourinary: No Hiatal Hernia: No Immune Disorder: No Kidney Stones: No Musculoskeletal: No Neurologic: No Psychiatric: No Reproductive: No Respiratory: Yes Migraines: No Radiation Therapy: No Renal Failure: No Seizures: No Sickle Cell Disease: No Sleep Apnea: No Thyroid Disease: No Ulcer: No Tetanus Vaccination: < 5 Years Influenza Vaccination: No Menopausal: Yes Past Surgical History Abdominal Surgery: No AICD: No Arteriovenous Shunt: No Cardiac Surgery: No Ear Surgery: No Endocrine Surgery: No Eye Surgery: No Genitourinary Surgery: No Gynecologic Surgery: No Insulin Pump: No Joint Replacement: No Oral Surgery: No Pacemaker: No Thoracic Surgery: No Social History Alcohol Use: Yes (OCC) Tobacco Use: No Substance Use: No Allergies-Medications (Allergen,Severity, Reaction): Coded Allergies: No Known Allergies (Verified Adverse Reaction, Unknown, 03/06/17) Reported Meds & Prescriptions Reported Meds & Active Scripts Active Magnesium Oxide 400 Mg Tab 400 Mg PO Q12HR Furosemide 20 Mg Tab 20 Mg PO BID@ Potassium Chloride ER (Potassium Chloride) 10 Meq Cap 20 Meq PO TID Oxycodone-Acetaminophen 10-325 (Oxycodone HCl/Acetaminophen) 10 Mg-325 Mg Tablet 1 Tab PO Q6H PRN Diltiazem CD 24 HR 120 Mg Caper 120 Mg PO DAILY Digoxin 0.125 Mg Tab 0.125 Mg PO DAILY Coumadin (Warfarin) 4 Mg Tab 4 Mg PO DAILY@1600 Ventolin Hfa 18 GM Inh (Albuterol Sulfate) 90 Mcg/Act Aer 2 Puff INH Q4-6H PRN Spiriva Handihaler (Tiotropium Inh) 18 Mcg Cap 18 Mcg INH DAILY 1 capsule = 18 mcg Ferosul (Ferrous Sulfate) 325 Mg (65 Mg Iron) Tablet 325 Mg PO BID Flomax (Tamsulosin HCl) 0.4 Mg Cap 0.4 Mg PO DAILY Urecholine (Bethanechol Chloride) 25 Mg Tab 25 Mg PO Q8H Reported Tylenol (Acetaminophen) 325 Mg Tab 325 Mg PO Q4HR PRN Review of Systems General / Constitutional: No: Fever Eyes: No: Visual changes HENT: No: Headaches Cardiovascular: No: Chest Pain or Discomfort Respiratory: Positive: Shortness of Breath Gastrointestinal: No: Abdominal Pain Genitourinary: No: Dysuria Musculoskeletal: No: Pain Skin: No Rash Neurologic: No: Weakness Psychiatric: No: Depression Endocrine: No: Polydipsia Hematologic/Lymphatic: No: Easy Bruising Physical Exam Narrative GENERAL: Well-nourished, well-developed patient. SKIN: Focused skin assessment warm/dry. HEAD: Normocephalic. EYES: No scleral icterus. No injection or drainage. NECK: Supple, trachea midline. No JVD or lymphadenopathy. CARDIOVASCULAR: Regular rate and rhythm without murmurs, gallops, or rubs. RESPIRATORY: Breath sounds equal bilaterally. No accessory muscle use. Mild expiratory wheezes bilaterally. No rhonchi. GASTROINTESTINAL: Abdomen soft, non-tender, nondistended. MUSCULOSKELETAL: No cyanosis, or edema. BACK: Nontender without obvious deformity. No CVA tenderness. Neurologic exam normal. Data Data Last Documented VS Vital Signs Date Time Temp Pulse Resp B/P (MAP) Pulse Ox O2 Delivery O2 Flow Rate FiO2 03/06/17 05:17 98 Nasal Cannula 2.00 03/06/17 05:17 130 18 03/06/17 02:27 98.8 Orders Orders Albuterol-Ipratropium Neb (Duoneb Neb) (03/06/17 03:15) Diltiazem Inj (Cardizem Inj) (03/06/17 05:00) Sodium Chloride 0.9% Flush (Ns Flush) (03/06/17 05:00) Complete Blood Count With Diff (03/06/17 05:01) Basic Metabolic Panel (Bmp) (03/06/17 05:01) Prothrombin Time / Inr (Pt) (03/06/17 05:01) Act Partial Throm Time (Ptt) (03/06/17 05:01) Digoxin (03/06/17 05:01) Thyroid Stimulating Hormone (03/06/17 05:01) Iv Access Insert/Monitor (03/06/17 05:01) Ecg Monitoring (03/06/17 05:01) Oximetry (03/06/17 05:01) Diltiazem Cd (Cardizem Cd) (03/06/17 05:45) Diltiazem Inj (Cardizem Inj) (03/06/17 06:45) Sodium Chlorid 0.9% 500 Ml Inj (Ns 500 M (03/06/17 06:45) Digoxin Inj (Lanoxin Inj) (03/06/17 09:00) Labs Laboratory Tests Test 03/06/17 05:15 White Blood Count 6.8 TH/MM3 Red Blood Count 2.26 MIL/MM3 Hemoglobin 7.8 GM/DL Hematocrit 23.3 % Mean Corpuscular Volume 102.8 FL Mean Corpuscular Hemoglobin 34.4 PG Mean Corpuscular Hemoglobin Concent 33.4 % Red Cell Distribution Width 21.2 % Platelet Count 193 TH/MM3 Mean Platelet Volume 9.2 FL Neutrophils (%) (Auto) 72.6 % Lymphocytes (%) (Auto) 12.4 % Monocytes (%) (Auto) 14.1 % Eosinophils (%) (Auto) 0.4 % Basophils (%) (Auto) 0.5 % Neutrophils # (Auto) 4.9 TH/MM3 Lymphocytes # (Auto) 0.8 TH/MM3 Monocytes # (Auto) 1.0 TH/MM3 Eosinophils # (Auto) 0.0 TH/MM3 Basophils # (Auto) 0.0 TH/MM3 CBC Comment DIFF FINAL Differential Comment Prothrombin Time 13.5 SEC Prothromb Time International Ratio 1.3 RATIO Activated Partial Thromboplast Time 37.5 SEC Blood Urea Nitrogen 11 MG/DL Creatinine 0.28 MG/DL Random Glucose 157 MG/DL Calcium Level 8.2 MG/DL Sodium Level 137 MEQ/L Potassium Level 3.8 MEQ/L Chloride Level 101 MEQ/L Carbon Dioxide Level 30.2 MEQ/L Anion Gap 6 MEQ/L Estimat Glomerular Filtration Rate 249 ML/MIN Thyroid Stimulating Hormone 3rd Gen 2.020 uIU/ML Digoxin Level 0.6 NG/ML MDM Medical Decision Making Medical Screen Exam Complete: Yes Emergency Medical Condition: Yes Differential Diagnosis Differential diagnosis including acute exacerbation COPD, bronchitis, pneumonia. Narrative Course 56 years old female with wheezing and shortness of breath. History of COPD. Patient was given albuterol treatment 2 by EMS. Patient was given DuoNeb treatment 3 in the ED. Patient feeling much better. Patient however has A. fib with RVR. Patient was given Cardizem 10 mg 2 and digoxin 0.125 mg IV. Patient refused admission. Patient wants to go back to the facility. Patient will be discharged back to rehabilitation facility. Diagnosis Primary Impression: COPD with acute exacerbation Additional Impression: Atrial fibrillation with RVR Patient Instructions: General Instructions Additional Instructions: Use albuterol as directed. Follow-up with personal physician. Return if worse. Med/Other Pt SpecificInfo: No Change to Meds Disposition: 01 DISCHARGE HOME Condition: Stable Anatoliy Melvin MD Mar 06, 2017 03:12
[2017-03-06] MEDS: RESP: ALBUTEROL 2.5 MG/IPRATROPIUM 0.5 MG NEB (SCH) INH ×3 (03:15→15:35)
[2017-03-06] MEDS ORDERED: TYLE325T PO (04:37)
[2017-03-06] MEDS ORDERED: SODIUM CHLORIDE 0.9% FLUSH 10 ML FLUSH IV FLUSH PRN ×2 (05:00→10:00)
[2017-03-06] MEDS ORDERED: DILTIAZEM HCL 25 MG/5 ML VIAL IV PUSH ONE (05:00)
[2017-03-06 05:25] LABS: AUTOMATED NEUTROPHIL # 4.9 TH/MM3 (1.8-7.7); BASOPHIL % 0.5 % (0.0-2.0); EOSINOPHIL % 0.4 % (0.0-4.0); HEMATOCRIT 23.3 % (35.0-46.0); HEMOGLOBIN 7.8 GM/DL (11.6-15.3); LYMPH % 12.4 % (9.0-44.0); LYMPHOCYTE # 0.8 TH/MM3 (1.0-4.8); MEAN CELL VOLUME 102.8 FL (80.0-100.0); MEAN CORPUSCULAR HEMOGLOBIN 34.4 PG (27.0-34.0); MEAN CORPUSCULAR HGB CONC 33.4 % (32.0-36.0); MEAN PLATELET VOLUME 9.2 FL (7.0-11.0); MONO % 14.1 % (0.0-8.0); NEUT % 72.6 % (16.0-70.0); PLATELET COUNT 193 TH/MM3 (150-450); RED BLOOD COUNT 2.26 MIL/MM3 (4.00-5.30); RED CELL DISTRIBUTION WIDTH 21.2 % (11.6-17.2); WHITE BLOOD COUNT 6.8 TH/MM3 (4.0-11.0)
[2017-03-06 05:39] LABS: INTERNATIONAL NORMALIZED RATIO 1.3 RATIO; PROTHROMBIN TIME - PATIENT 13.5 SEC (9.8-11.6)
[2017-03-06] MEDS ORDERED: DILTIAZEM-CD 120 MG CAP ER PO ONE (05:45)
[2017-03-06 05:50] LABS: BICARBONATE 30.2 MEQ/L (21.0-32.0); CALCIUM 8.2 MG/DL (8.5-10.1); CREATININE 0.28 MG/DL (0.50-1.00)
[2017-03-06 06:04] LABS: DIGOXIN 0.6 NG/ML (0.8-2.0)
[2017-03-06] MEDS ORDERED: DILTIAZEM HCL 25 MG/5 ML VIAL IV ONE (06:45)
[2017-03-06] MEDS ORDERED: SODIUM CHLORID 0.9% 500 ML INJ 500 ML IV ONE (06:45)
[2017-03-06] MEDS: DIGOXIN 0.5 MG/2 ML VIAL IV PUSH SCH (08:43)
[2017-03-06] MEDS ORDERED: methylPREDNISolone SOD SUCC 125 MG/2 ML VIAL IV PUSH ONE (08:45)
[2017-03-06] MEDS: DILTIAZEM INJ 125 MG in SODIUM CHLORIDE 0.9% INJ 100 ML IV PRN ×2 (08:54→23:22)
--- NOTE | 2017-03-06 09:06 | EKG ---
Date Performed: 03/06/2017 Time Performed: 02:50:25 PTAGE: 56 years EKG: ATRIAL FIBRILLATION WITH RAPID VENTRICULAR RESPONSE NONSPECIFIC ST & T-WAVE ABNORMALITY ABN ORMAL ECG No significant change from prior electrocardiogram. PREVIOUS TRACING : 01/31/2017 15.12 DOCTOR: Oleg Adkins Interpretating Date/Time 03/06/2017 09:04:25
--- NOTE | 2017-03-06 09:25 | HHI.HP ---
[facility] Service Family Medicine Primary Care Physician Venessa Chung MD Admission Diagnosis COPD WITH HYPOXEMIA,AFIB WITH RVR Diagnoses: International Travel<30 Days: No Contact w/Intl Traveler<30days: No Known Affected Area: No History of Present Illness Mrs. Steven is a 65-year-old white female with a past medical history of CHF, COPD, A fib presenting with shortness of breath. She states that her symptoms started this morning while she was laying in bed. Suddenly she felt short of breath. She had never experienced this type of shortness of breath before because it was so sudden. She states that it felt different from her previous COPD flares. She was also having pain in her left back, arm, and neck, but this is chronic for her since her thoracotomy months ago. Her Rehab ([facility] sent her to the hospital because of the shortness of breath and her going into A. fib. She was discharged to the rehabilitation center on 02/25 so that she could work with PT to get strong for a valve replacement. She is currently on Coumadin and digoxin for her A. fib. No chest pains, no history of blood clots. [place] palpitations. Of note was diagnosed with pneumonia a few days ago at the rehab. Was given antibiotics, the names of which she does not know. She states that they were given through an IV and also in pill form. No fevers or chills. Of note, had a left thoracotomy decortication in [address] Recinos[address] Chung for Pulmonology. Has not yet seen a multiple spindle screw machine operator outside the hospital. PCP is Dr. Sainz. (Miracle Dejesus MD R1) Review of Systems Constitutional: COMPLAINS OF: Weight loss, DENIES: Fever, Chills, Dizziness Eyes: DENIES: Blurred vision Ears, nose, mouth, throat: DENIES: Vertigo Respiratory: COMPLAINS OF: Shortness of breath, DENIES: Cough, Sputum production Cardiovascular: COMPLAINS OF: Palpitations, DENIES: Chest pain, Lower Extremity Edema Gastrointestinal: DENIES: Black stools, Bloody stools, Constipation, Diarrhea Musculoskeletal: COMPLAINS OF: Back pain, Neck pain, DENIES: Joint Swelling Integumentary: DENIES: Rash Hematologic/lymphatic: COMPLAINS OF: Bruising Neurologic: DENIES: Headache, Localized weakness, Seizures (Miracle Dejesus MD R1) Past Family Social History Past Medical History A fib CHF COPD Urinary retention Pancytopenia on previous admission Past Surgical History Left thoracotomy decortication in January 2017 Reported Medications Reported Meds & Active Scripts Active Magnesium Oxide 400 Mg Tab 400 Mg PO Q12HR Furosemide 20 Mg Tab 20 Mg PO BID@09,18 Potassium Chloride ER (Potassium Chloride) 10 Meq Cap 20 Meq PO TID Oxycodone-Acetaminophen 10-325 (Oxycodone HCl/Acetaminophen) 10 Mg-325 Mg Tablet 1 Tab PO Q6H PRN for back pain Diltiazem CD 24 HR 120 Mg Caper 120 Mg PO DAILY Digoxin 0.125 Mg Tab 0.125 Mg PO DAILY Coumadin (Warfarin) 4 Mg Tab 4 Mg PO DAILY@1600 Ventolin Hfa 18 GM Inh (Albuterol Sulfate) 90 Mcg/Act Aer 2 Puff INH Q4-6H PRN Spiriva Handihaler (Tiotropium Inh) 18 Mcg Cap 18 Mcg INH DAILY 1 capsule = 18 mcg Ferosul (Ferrous Sulfate) 325 Mg (65 Mg Iron) Tablet 325 Mg PO BID Flomax (Tamsulosin HCl) 0.4 Mg Cap 0.4 Mg PO DAILY Urecholine (Bethanechol Chloride) 25 Mg Tab 25 Mg PO Q8H Reported Tylenol (Acetaminophen) 325 Mg Tab 325 Mg PO Q4HR PRN (Miracle Dejesus MD R1) Allergies: Coded Allergies: No Known Allergies (Verified Allergy, Unknown, 03/06/17) Family History Mother- valve issues and CHF Social History currently at [facility] lives in [place], [place] with Tobacco- quit 6.5 yrs ago, smoked for 34 yrs Alcohol- socially on the weekends Illicit drugs- none (Miracle Dejesus MD R1) Physical Exam Vital Signs Vital Signs Date Time Temp Pulse Resp B/P (MAP) Pulse Ox O2 Delivery O2 Flow Rate FiO2 03/06/17 08:54 136 119/71 03/06/17 05:17 98 Nasal Cannula 2.00 03/06/17 05:17 130 18 101/57 (72) 98 Nasal Cannula 2.00 03/06/17 04:17 134 18 110/76 (87) 98 Nasal Cannula 2.00 03/06/17 03:10 96 3.00 1/1/18 02:42 122 2 100 Nasal Cannula 2.00 03/06/17 02:27 98.8 122 22 143/86 (105) 100 Physical Exam GENERAL: This is a well-nourished, well-developed white female patient laying in bed on venturi mask with increased work of breathing. SKIN: No rashes or lesions. Cool and dry. Extensive ecchymoses on bilateral arms and legs. Petechiae and purpura on chest. HEAD: Atraumatic. Normocephalic. No temporal or scalp tenderness. EYES: Pupils equal round and reactive. Extraocular motions intact. No scleral icterus. No injection or drainage. ENT: Nose without bleeding, purulent drainage or septal hematoma. Throat without erythema, tonsillar hypertrophy or exudate. Uvula midline. Airway patent. NECK: Trachea midline. No JVD or lymphadenopathy. Supple, nontender, no meningeal signs. CARDIOVASCULAR: irregular irregular rate and rhythm without gallops, or rubs. Loud systolic murmur. RESPIRATORY: Decreased breath sounds bilaterally with expiratory wheezes. Increased work of breathing. GASTROINTESTINAL: Abdomen soft, non-tender, distended. No hepato-splenomegaly, or palpable masses. No guarding. MUSCULOSKELETAL: Extremities without clubbing, cyanosis. slight pitting edema bilaterally. No joint tenderness, effusion, or edema noted. NEUROLOGICAL: Awake and alert. Motor and sensory grossly within normal limits. Normal speech. Laboratory Laboratory Tests Test 03/06/17 05:15 White Blood Count 6.8 Red Blood Count 2.26 Hemoglobin 7.8 Hematocrit 23.3 Mean Corpuscular Volume 102.8 Mean Corpuscular Hemoglobin 34.4 Mean Corpuscular Hemoglobin Concent 33.4 Red Cell Distribution Width 21.2 Platelet Count 193 Mean Platelet Volume 9.2 Neutrophils (%) (Auto) 72.6 Lymphocytes (%) (Auto) 12.4 Monocytes (%) (Auto) 14.1 Eosinophils (%) (Auto) 0.4 Basophils (%) (Auto) 0.5 Neutrophils # (Auto) 4.9 Lymphocytes # (Auto) 0.8 Monocytes # (Auto) 1.0 Eosinophils # (Auto) 0.0 Basophils # (Auto) 0.0 CBC Comment DIFF FINAL Differential Comment Prothrombin Time 13.5 Prothromb Time International Ratio 1.3 Activated Partial Thromboplast Time 37.5 Blood Urea Nitrogen 11 Creatinine 0.28 Random Glucose 157 Calcium Level 8.2 Sodium Level 137 Potassium Level 3.8 Chloride Level 101 Carbon Dioxide Level 30.2 Anion Gap 6 Estimat Glomerular Filtration Rate 249 Thyroid Stimulating Hormone 3rd Gen 2.020 Digoxin Level 0.6 (Miracle Dejesus MD R1) Result Diagram: 03/06/17 0515 03/06/17 0515 Imaging Last Impressions Chest X-Ray 03/06/17 0000 Signed Impressions: Service Date/Time: Monday, March 06, 2017 10:11 - CONCLUSION: 1. Stable large loculated left pleural effusion with associated presumed compressive atelectasis. 2. Slightly progressed small right pleural effusion with associated right lower lobe airspace disease, presumably atelectasis. 3. Cardiomegaly. David Mora MD (Miracle Dejesus MD R1) Caprini VTE Risk Assessment Caprini VTE Risk Assessment: Mod/High Risk (score >= 2) Caprini Risk Assessment Model Point Value = 1 Point Value = 2 Point Value = 3 Point Value = 5 Age 41-60 Minor surgery BMI > 25 kg/m2 Swollen legs Varicose veins or History of unexplained or recurrent spontaneous Oral contraceptives or hormone replacement Sepsis (< 1 month) Serious lung disease, including pneumonia (< 1 month) Abnormal pulmonary function Acute myocardial infarction Congestive heart failure (< 1 month) History of inflammatory bowel disease Medical patient at bed rest Age 61-74 Arthroscopic surgery Major open surgery (> 45 min) Laparoscopic surgery (> 45 min) Malignancy Confined to bed (> 72 hours) Immobilizing plaster cast Central venous access Age >= 75 History of VTE Family history of VTE Factor V Leiden Prothrombin [id number] Lupus anticoagulant Anticardiolipin antibodies Elevated serum homocysteine Heparin-induced thrombocytopenia Other congenital or acquired thrombophilia Stroke (< 1 month) Elective arthroplasty Hip, pelvis, or leg fracture Acute spinal cord injury (< 1 month) Prophylaxis Regimen Total Risk Factor Score Risk Level Prophylaxis Regimen 0-1 Low Early ambulation 2 Moderate Order ONE of the following: *Sequential Compression Device (SCD) *Heparin 5000 units SQ BID 3-4 Higher Order ONE of the following medications: *Heparin 5000 units SQ TID *Enoxaparin/Lovenox 40 mg SQ daily (WT < 150 kg, CrCl > 30 mL/min) *Enoxaparin/Lovenox 30 mg SQ daily (WT < 150 kg, CrCl > 10-29 mL/min) *Enoxaparin/Lovenox 30 mg SQ BID (WT < 150 kg, CrCl > 30 mL/min) AND/OR *Sequential Compression Device (SCD) 5 or more Highest Order ONE of the following medications: *Heparin 5000 units SQ TID (Preferred with Epidurals) *Enoxaparin/Lovenox 40 mg SQ daily (WT < 150 kg, CrCl > 30 mL/min) *Enoxaparin/Lovenox 30 mg SQ daily (WT < 150 kg, CrCl > 10-29 mL/min) *Enoxaparin/Lovenox 30 mg SQ BID (WT < 150 kg, CrCl > 30 mL/min) AND *Sequential Compression Device (SCD) (Miracle Dejesus MD R1) Assessment and Plan Assessment and Plan Mrs. Steven is a 56yo white female with a PMH of COPD, CHF, and atrial fibrillation presenting to the ED with shortness of breath and in A fib with RVR. She is being admitted to inpatient. Code Status Full code Discussed Condition With Dr. Mancuso (Miracle Dejesus MD R1) Attending Attestation Patient seen and examined. Case reviewed and discussed with the resident team. Agree with plan of care as discussed with me and documented in the resident note. she was seen in her room when she was admitted and had responded to diuretics and was breathing better and responding in full sentences (Cecy Hays MD) Problem List: (1) Pleural effusion ICD Codes: J90 - Pleural effusion, not elsewhere classified Status: Chronic Plan: Pt presenting the ED with shortness of breath. DDx: Pleural effusion vs COPD exacerbation vs PE (Well's score is low risk) vs UT vs CHF exacerbation. CXR at admission shows stable large loculated left pleural effusion will with associated presumed compressive atelectasis. Slightly progressed small right pleural effusion with associated right lower lobe airspace disease, presumably atelectasis. * Consult Pulmonology, pt known to Dr. Chung. * Pt may need a thoracentesis. * Will need to investigate to figure out the cause of this effusion. Malignant process? Past studies were mostly negative. (2) Atrial fibrillation with RVR ICD Codes: I48.91 - Unspecified atrial fibrillation Status: Chronic Plan: EKG on admission shows Atrial fibrillation with RVR with rate of 125. Continues to be tachycardic. INR is subtherapeutic at 1.3. * Troponin at admission was 0.05, will continue to follow * Patient was given Diltiazem po and then started on a drip in the ED * Patient was also given Digoxin 0.125mg IV in the ED * Continue Diltiazem drip * Continue Digoxin qD * Level at admission was low at 0.6 * Continue at home Coumadin * Consulted Pharmacy for daily dosing, appreciate assistance * Consult Cardiology, appreciate recommendations (3) COPD (chronic obstructive pulmonary disease) ICD Codes: J44.9 - Chronic obstructive pulmonary disease, unspecified Status: Chronic Plan: Patient with history COPD presenting the ED with shortness of breath, which can be due to multiple etiologies. Patient felt better after being given nebs in the ED. Patient has a previous hx of respiratory failure and intubation so will monitor closely. * Albuterol nebs q2h and duonebs q4h * Ceftriaxone 1g IV q24h * Azithromycin 500 po q24h * Continuous pulse ox (4) CHF (congestive heart failure) ICD Codes: I50.9 - Heart failure, unspecified Plan: Patient previously diagnosed with CHF. BNP on admission is 388. Echocardiogram on 12/30/16 showed grossly normal left ventricular systolic function, moderate to severe pulmonary hypertension, mild mitral valve stenosis , minimal mitral annular calcification, mild mitral valve regurgitation, moderate calcific aortic valve stenosis, Mild/moderate aortic valve regurgitation. * Will repeat echo due to loud murmur on exam * Furosemide 40mg IV once in ED * Will continue at home furosemide dosing of 20mg BID (5) Macrocytic anemia ICD Codes: D53.9 - Nutritional anemia, unspecified Plan: Hbg upon admission was 7.8 with MCV of 102.8. Patient only drinks socially on weekends as confirmed by her so likely not due to alcohol abuse. Previous studies showed pancytopenia which was worked up with a bone marrow biopsy in February which showed hypocellular bone marrow with trilineage hypoplasia. Peripheral smear at that time also showed severe macrocytic anemia and mild thrombocytopenia. * Ordered peripheral blood smear * B12 and folate levels pending (6) Elevated alkaline phosphatase level ICD Codes: R74.8 - Abnormal levels of other serum enzymes Plan: Alkaline phosphatase elevated at admission at 240. This was also elevated at previous admissions, but not as high. AST, ALT, and bilirubin are WNL. Since this is the case, may be related to bone process. Malignancy vs recent fracture. * Continue to trend (7) Urinary retention ICD Codes: R33.9 - Retention of urine, unspecified Status: Chronic Plan: * Continue at home medications (8) FEN Status: Acute Plan: Fluids: tolerating PO Electrolytes: monitor and replete as needed Nutrition: heart-healthy diet DVT Prophylaxis: Early ambulation. Continue coumadin GI Prophylaxis: none indicated at this time Fever/Pain management: Tylenol/Continue at home Percocet for back pain (Miracle Dejesus MD R1) Physician Certification 2 Midnight Certification Type: Admission for Inpatient Services Order for Inpatient Services The services are ordered in accordance with Medicare regulations or non- Medicare payer requirements, as applicable. In the case of services not specified as inpatient-only, they are appropriately provided as inpatient services in accordance with the 2-midnight benchmark. Estimated LOS (days): 2 days is the estimated time the patient will need to remain in the hospital, assuming treatment plan goals are met and no additional complications. Post-Hospital Plan: Home (Miracle Dejesus MD R1) Problem Qualifiers (1) COPD (chronic obstructive pulmonary disease): Qualified Codes: J44.9 - Chronic obstructive pulmonary disease, unspecified (2) CHF (congestive heart failure): Qualified Codes: I50.9 - Heart failure, unspecified Miracle Dejesus MD R1 Mar 06, 2017 09:25 Cecy Hays MD Mar 07, 2017 12:12
[2017-03-06] MEDS ORDERED: oxyCODONE/ACETAMINOPHEN 10 MG/325 MG TAB PO PRN ×2 (10:00→10:15)
[2017-03-06 10:13] LABS: DIRECT BILIRUBIN ADULT 0.1 MG/DL (0.0-0.2)
[2017-03-06 10:15] LABS: INDIRECT BILIRUBIN 0.2 MG/DL (0.0-0.8); TOTAL BILIRUBIN ADULT 0.3 MG/DL (0.2-1.0); TOTAL PROTEIN 5.8 GM/DL (6.4-8.2)
[2017-03-06] MEDS ORDERED: BISACODYL 10 MG SUPP RECTAL PRN (10:15)
[2017-03-06] MEDS ORDERED: SENNOSIDES 8.6 MG TAB PO PRN (10:15)
[2017-03-06] MEDS ORDERED: MAGNESIUM HYDROXIDE SUSP 30 ML CUP PO PRN (10:15)
[2017-03-06] MEDS ORDERED: LACTULOSE SYRUP 20 GM/30 ML CUP PO PRN (10:15)
[2017-03-06 10:29] LABS: RETIC # 94.1 MIL/L (20.0-150.0); RETIC % 4.1 % (0.4-3.0)
--- NOTE | 2017-03-06 10:34 | RADRPT ---
EXAM DATE/TIME: 03/06/2017 10:11 [facility] COMPARISON: CHEST PA & LAT, February 10, 2017, 21:12. INDICATIONS : Congestive heart failure. MEDICAL HISTORY : UTI, lung mass, aneurysm. Chronic obstructive pulmonary disease. Congestive heart failure. SURGICAL HISTORY : Thoracotomy ENCOUNTER: Initial ACUITY: 1 day PAIN SCORE: 6/10 LOCATION: Bilateral chest FINDINGS: Stable large loculated ascetic pleural effusion with associated airspace disease and volume loss. Marcelo ateral progression of small right pleural effusion with associated airspace disease at the lung base. Cardiomediastinal contours are stable. Remainder of the exam is unchanged. CONCLUSION: 1. Stable large loculated left pleural effusion with associated presumed compressive atelectasis. 2. Slightly progressed small right pleural effusion with associated right lower lobe airspace disease , presumably atelectasis. 3. Cardiomegaly. David Mora MD on March 06, 2017 at 10:30 Board Certified Radiologist. This report was verified electronically.
[2017-03-06] MEDS ORDERED: FUROSEMIDE 40 MG/4 ML VIAL IV PUSH ONE (10:45)
[2017-03-06] MEDS: cefTRIAXone INJ 1,000 MG in SODIUM CHLORIDE 0.9% INJ 100 ML IV SCH (11:43)
[2017-03-06] MEDS: AZITHROMYCIN 250 MG TAB PO SCH (11:45)
[2017-03-06] MEDS: POTASSIUM CHLORIDE 10 MEQ CAP PO SCH (11:53)
[2017-03-06] MEDS: BETHANECHOL CHL 25 MG TAB PO SCH ×2 (11:56→19:00)
[2017-03-06] MEDS ORDERED: POTASSIUM CHLORIDE 10 MEQ CAP PO SCH (13:00)
[2017-03-06 14:43] LABS: FOLATE 3.5 NG/ML (3.1-17.5); TROPONIN I 0.07 NG/ML (0.02-0.05)
[2017-03-06] MEDS: WARFARIN SOD 4 MG TAB PO SCH (15:31)
[2017-03-06] MEDS: RESP: ALBUTEROL 2.5 MG/IPRATROPIUM 0.5 MG NEB (SCH) NEB ×2 (15:35→19:13)
--- NOTE | 2017-03-06 15:50 | ECHRPT ---
Indication: EF assessment of CHF CONCLUSIONS The left ventricular systolic function is low normal with an estimated ejection fraction in the rang e of 50- 55%. Normal left ventricular size. Mild concentric left ventricular hypertrophy. No regional wall motion abnormalities are present. The left atrial size is moderately dilated. Moderate thickening of the mitral valve leaflets. Aeflv-ow-tquu mitral valve regurgitation. Mitral annular calcification is present. Mild mitral valve stenosis. Moderate thickening of the aortic valve leaflets. Moderate aortic valve regurgitation. Severe aortic valve stenosis. Aortic valve area is 0.78 cm. Aortic valve mean gradient is 45 mmHg. There is mild to moderate tricuspid valve regurgitation. There is estimated moderate pulmonary hypertension present (range 50-60 mmHg). BP: / HR: Rhythm: Atrial fibrillation MEASUREMENTS (Male / Female) Normal Values Technical Quality:Good 2D ECHO LV Diastolic Diameter PLAX 2.9 cm 4.2 - 5.9 / 3.9 - 5.3 cm LV Systolic Diameter PLAX 2.2 cm IVS Diastolic Thickness 1.3 cm 0.6 - 1.0 / 0.6 - 0.9 cm LVPW Diastolic Thickness 1.3 cm 0.6 - 1.0 / 0.6 - 0.9 cm LV Relative Wall Thickness 0.9 RV Internal Dim ED PLAX 2.4 cm LVOT Diameter 1.6 cm LA Systolic Diameter LX 4.6 cm 3.0 - 4.0 / 2.7 - 3.8 cm M-MODE Aortic Root Diameter MM 0.8 cm AV Cusp Separation MM 1.0 cm DOPPLER AV Peak Velocity 468.5 cm/s AV Peak Gradient 87.8 mmHg AV Mean Gradient 45.0 mmHg AV Velocity Time Integral 90.8 cm AI Peak Velocity 375.0 cm/s AI Peak Gradient 56.3 mmHg AI Pressure Half Time 322.5 ms LVOT Peak Velocity 177.0 cm/s LVOT Peak Gradient 12.5 mmHg LVOT Velocity Time Integral 35.3 cm AV Area Cont Eq vti 0.8 cm AV Area Cont Eq pk 0.8 cm MV Peak Velocity 282.0 cm/s MV Peak Gradient 31.8 mmHg MV Mean Velocity 140.5 cm/s MV Mean Gradient 10.0 mmHg MV Area PHT 2.2 cm LV E' Lateral Velocity 4.6 cm/s LV E' Septal Velocity 6.2 cm/s TR Peak Velocity 350.0 cm/s TR Peak Gradient 49.0 mmHg Right Atrial Pressure 10.0 mmHg Pulmonary Artery Systolic Pressu 59.0 mmHg Right Ventricular Systolic Press 59.0 mmHg PV Peak Velocity 136.0 cm/s PV Peak Gradient 7.4 mmHg FINDINGS LEFT VENTRICLE The left ventricular systolic function is low normal with an estimated ejection fraction in the rang e of 50- 55%. Normal left ventricular size. Mild concentric left ventricular hypertrophy. No regional wall motion abnormalities are present. RIGHT VENTRICLE Normal right ventricular size and systolic function. LEFT ATRIUM The left atrial size is moderately dilated. RIGHT ATRIUM The right atrial size is normal. ATRIAL SEPTUM Normal atrial septal thickness without atrial level shunting by limited color doppler interrogation. AORTA The aortic root and proximal ascending aorta are normal in size on limited imaging. MITRAL VALVE Moderate thickening of the mitral valve leaflets. [id number] mitral valve regurgitation. Mitral annular calcification is present. Mild mitral valve stenosis. AORTIC VALVE Trileaflet aortic valve. Moderate thickening of the aortic valve leaflets. Moderate aortic valve regurgitation. Severe aortic valve stenosis. Aortic valve area is 0.78 cm. Aortic valve mean gradient is 45 mmHg. TRICUSPID VALVE Structurally normal tricuspid valve. There is mild to moderate tricuspid valve regurgitation. There is estimated moderate pulmonary hypertension present (range 50-60 mmHg). PULMONARY VALVE No pulmonary valve regurgitation or stenosis. VESSELS The inferior vena cava is normal in size. PERICARDIUM No pericardial effusion. Jamie Goyal MD, FACC (Electronically Signed) Final Date:06 March 2017 15:49
[2017-03-06] MEDS: DILTIAZEM HCL 30 MG TAB PO SCH ×2 (17:01→23:06)
--- NOTE | 2017-03-06 17:16 | MB ---
cc: SONI WILSON MD DATE OF CONSULTATION: 03/06/2017 REASON FOR CONSULTATION: Shortness of breath. HISTORY OF PRESENT ILLNESS: The patient is a 65-year-old female with prior history of known diastolic congestive heart failure, COPD, severe aortic stenosis and pancytopenia. She was seen back in February by Dr. Kirk of cardiology and also Dr. Bustamante. She is not felt to be in good candidate for surgical aortic valve replacement or transcatheter aortic valve replacement at this time. She has not had any followup appointments in the outpatient setting. She states she was in baseline state of health at [facility] and had a sudden onset of shortness of breath. This is different than her prior COPD. She denies any chest pain. They sent her over for evaluation. She was found to be in rapid atrial fibrillation. She was started on Cardizem drip now symptomatic, seems to be doing better. PAST MEDICAL HISTORY: 1. Congestive heart failure. 2. COPD. 3. Atrial fibrillation. 4. Severe aortic stenosis. 5. Left pleuracotomy. 6. Decortication, January 2017. ALLERGIES: NO KNOWN DRUG ALLERGIES. MEDICATIONS: See medication reconciliation sheet. SOCIAL HISTORY: She lives in [place], but currently [facility]. She quit smoking about 6-1/2 years ago but smoked for 35 years, only uses occasional alcohol. REVIEW OF SYSTEMS: A 12 point review of systems was performed, negative, unless otherwise as stated in the history of present illness. PHYSICAL EXAMINATION: Heart rate currently 88, blood pressure 121/83 mmHg. General: Alert and oriented x3 in no acute distress. HEENT: Exam shows pupils reactive to light and accommodation, extraocular movements are intact. No elevation in jugular venous distention. No thyromegaly, no lymphadenopathy, no carotid bruits. Lungs: Clear to auscultation bilaterally. Cardiovascular: Irregularly irregular rhythm with a 3/6 harsh systolic crescendo decrescendo murmur at the right sternal border. Lungs: Clear to auscultation bilaterally. Decreased breath sounds at both bases. Abdomen: Abdominal exam is nontender, nondistended. Good bowel sounds. No hepatosplenomegaly. Extremities: No clubbing, cyanosis or edema. Good peripheral pulses. Cranial nerves: Intact. Motor sensory grossly intact. LABORATORY DATA WBC 6.8, hemoglobin 7.8, platelet count 193, INR is 1.3, sodium 137, potassium 3.8, BUN is 11, creatinine 0.28. ASSESSMENT 1. Atrial fibrillation with rapid ventricular rate. She has a prior history of known atrial fibrillation but was currently tachycardiac, now on Cardizem drip with good rate control. Will add oral Cardizem to her regimen. Will titrate the drip off. She does have normal creatinine. We will see if we can hold off with digoxin for now but may have that at a later date if rate control is difficult. 2. Severe aortic stenosis. Still short of breath with severe aortic stenosis, not a great candidate for any invasive procedure at this time. She can follow up in the outpatient setting for consideration of transcatheter aortic valve replacement workup once she has completed rehab. 3. Congestive heart failure, diastolic, likely related to her valvular heart disease. 4. COPD. Continue current management. MD MARLENE Flores/RACHANA /4:18 PM /4:44 PM
[2017-03-06] MEDS ORDERED: FUROSEMIDE 20 MG TAB PO SCH (18:00)
[2017-03-06] MEDS: MAGNESIUM OXIDE 400 MG TAB PO SCH (19:00)
[2017-03-06] MEDS: FERROUS SULFATE 325 MG (65 MG ELEMENTAL IRON) TAB PO SCH (20:59)
[2017-03-06] MEDS: DOCUSATE SODIUM 50 MG/SENNA 8.6 MG TAB PO SCH (21:00)
[2017-03-06] MEDS: SODIUM CHLORIDE 0.9% FLUSH 10 ML FLUSH IV FLUSH SCH (21:00)
[2017-03-07] VITALS (20 sets, daily range): BP systolic 96–129; BP diastolic 42–86; PULSE 59–136; RESP 15–18; TEMP 93.8–100.2; O2SAT 95–100
[2017-03-07] MEDS: RESP: ALBUTEROL 2.5 MG/3 ML NEB (PRN) INH ×2 (01:00→05:15)
[2017-03-07] MEDS: BETHANECHOL CHL 25 MG TAB PO SCH ×3 (04:37→18:06)
[2017-03-07] MEDS: DILTIAZEM HCL 30 MG TAB PO SCH ×3 (06:20→17:09)
--- NOTE | 2017-03-07 06:46 | MB ---
cc: NURISKAREN DATE OF CONSULTATION 03/06/2017 REASON FOR CONSULTATION Pleural effusions and respiratory insufficiency. HISTORY OF PRESENT ILLNESS This is a 65-year-old lady who was recently in the hospital for a large left pleural effusion with a history of CHF and severe aortic valve stenosis. Also has a history of COPD and pancytopenia for which she underwent bone marrow biopsy and also had undergone a left thoracotomy and decortication. She was at the [facility] where she was experiencing shortness of breath and noted to be hypoxic and was in atrial fibrillation with a rapid ventricular response. She was sent to the [facility] and was admitted and has been started on antibiotics and also started on a Cardizem drip and given digoxin and has been maintained on Coumadin to keep her INR about 2.0. The patient had a chest x-ray which showed increasing left-sided effusion as well as pulmonary vascular congestion and a right effusion as well. She is orthopneic and has had leg edema chronically and is still quite anemic. PAST HISTORY As mentioned above significant for: 1. Aortic valve stenosis 2. Atrial fibrillation 3. COPD 4. Pancytopenia 5. Previous history of decortication of the left lung. 6. A history for bone marrow biopsy. HABITS The patient was a smoker for over 35 years of a half to one-pack. She does not drink much alcohol. FAMILY HISTORY Significant for aortic stenosis in her mother with CHF and a history of COPD in the family. MEDICATIONS 1. Lasix 20 mg b.i.d. 2. Potassium chloride 20 mEq daily 3. Oxycodone 10/325 p.r.n. 4. Cardizem CD 120 mg a day 5. Digoxin 0.125 6. Coumadin 4 mg a day 7. Spiriva one capsule a day 8. Flomax 0.4 mg daily 9. Bethanechol 25 mg q8 ALLERGIES None REVIEW OF SYSTEMS The patient has gained weight. She has leg edema. No chest pains. She is short of breath and orthopneic. She has loss of appetite, weakness, inability to ambulate and severe deconditioning. Other system review as per present complaint. PHYSICAL EXAMINATION This averagely built middle-aged white female is pale and mildly dyspneic. VITAL SIGNS: Blood pressure 110/60, pulse is 124, respirations 26, temperature 98. HEENT: Head normocephalic. Pupils are reactive. Tongue moist. Nasal mucosae edematous. Throat is injected. Ears have no infection. NECK: Supple. No bruits or thyroid enlargement or lymphadenopathy. CHEST: Distant breath sounds over the left chest. There were also crackles at both lung bases and wheezes anteriorly. HEART: The heart sounds are irregular, S1 and S2 with a systolic ejection murmur 2/6 at the left sternal border. ABDOMEN: Soft, benign. No masses. EXTREMITIES: Edema 2+ with decreased peripheral pulses. No calf tenderness. Reflexes 1+ with no gross motor deficits. NEUROLOGIC: Cranial nerves are grossly intact. RECTAL: Exam is deferred. SKIN: No lesions. IMPRESSION 1. CHF with acute exacerbation 2. Chronic atrial fibrillation 3. Right basilar infiltrate cannot rule out pneumonia. 4. Severe aortic valve stenosis PLAN The patient has been started on diuretic therapy as well as Cardizem drip and we will also get an ultrasound examination of the chest and also have interventional radiology tap the left effusion. A cardiology consult has been requested and O2 was placed at 4 liters nasal cannula. A repeat chest x-ray to be done this week. Sputum sent for culture and Gram stain and blood and urine culture are pending and if indicated, antibiotic therapy will be started. I will review the repeat chest x-ray and follow the case with you. The patient will be placed on DuoNeb solution q.i.d. p.r.n. for shortness of breath. I will follow the case with you Dr. Hays. Thank you for this consultation. MD MADDY Johnston/GRACE /9:43 PM /6:21 AM
--- NOTE | 2017-03-07 07:17 | RADRPT ---
EXAM DATE/TIME: 03/07/2017 06:51 [place] COMPARISON: No previous studies available for comparison. INDICATIONS : Post intubation. MEDICAL HISTORY : None. SURGICAL HISTORY : None. ENCOUNTER: Subsequent ACUITY: 4 - 6 days PAIN SCORE: 0/10 LOCATION: Bilateral chest FINDINGS: Moderate to large pleural effusion with dense basilar consolidation again seen on the left. Right pleural effusion has decreased, now very small. There is patchy parenchymal opacities of the ri ght lung, mostly mid to upper lung. Patient is now intubated. Endotracheal tube tip is approximately 1.4 cm above the alethea. CONCLUSION: 1. Endotracheal tube tip is close to the alethea and should be pulled back a centimeter or 2. 2. No significant change moderate to large pleural effusion and basilar consolidation on the left. 3. Decreased pleural effusion on the right, now small. Patchy right parenchymal consolidation. Man Mcdaniels MD on March 07, 2017 at 7:14 Board Certified Radiologist. This report was verified electronically.
--- NOTE | 2017-03-07 07:54 | PD.CARD.PN ---
Subjective Subjective Remarks patient currently having in-room thoracentesis. Objective Medications Current Medications Medications (Trade) Dose Ordered Sig/Armin Route Start Time Stop Time Status Last Admin (Lanoxin Inj) 0.125 mg DAILY IV PUSH 03/06/17 09:00 03/06/17 08:43 Diltiazem HCl 125 mg/Sodium Chloride 125 ml @ 5 mls/hr TITRATE PRN IV 03/06/17 08:45 03/06/17 23:22 (NS Flush) 2 ml BID IV FLUSH 03/06/17 21:00 03/06/17 21:00 (NS Flush) 2 ml UNSCH PRN IV FLUSH 03/06/17 10:00 (Albuterol Neb) 2.5 mg Q2HR NEB PRN INH 03/06/17 10:00 03/07/17 05:15 Ceftriaxone Sodium 1000 mg/ Sodium Chloride 100 ml @ 200 mls/hr Q24H IV 03/06/17 11:00 03/06/17 11:43 (Zithromax) 500 mg Q24H PO 03/06/17 11:00 03/06/17 11:45 (Urecholine) 25 mg Q8H PO 03/06/17 11:00 03/07/17 04:37 (Ferrous Sulfate) 325 mg BID PO 03/06/17 21:00 03/06/17 20:59 (Mag-Ox) 400 mg DAILY@1100,1900 PO 03/06/17 19:00 03/06/17 19:00 (Percocet 10-325 Mg) 1 tab Q6H PRN PO 03/06/17 10:00 03/06/17 15:31 (Flomax) 0.4 mg DAILY PO 03/07/17 09:00 (Spiriva Inh) 18 mcg DAILY INH 03/07/17 09:00 Future Hold (Coumadin) 4 mg DAILY@1600 PO 03/06/17 16:00 03/06/17 15:31 (Tylenol) 650 mg Q4H PRN PO 03/06/17 10:15 (Elvie-Colace) 1 tab BID PO 03/06/17 21:00 (Milk Of Magnesia Liq) 30 ml Q12H PRN PO 03/06/17 10:15 (Senokot) 17.2 mg Q12H PRN PO 03/06/17 10:15 (Dulcolax Supp) 10 mg DAILY PRN RECTAL 03/06/17 10:15 (Lactulose Liq) 30 ml DAILY PRN PO 03/06/17 10:15 (KCl) 20 meq DAILY PO 03/06/17 11:00 03/06/17 11:53 Pharmacy Profile Note 0 ml @ 0 mls/hr UNSCH OTHER 03/06/17 10:45 (Duoneb Neb) 1 ampule QID NEB NEB 03/06/17 16:00 03/06/17 19:13 (Cardizem) 30 mg Q6HR PO 03/06/17 18:00 03/06/17 23:06 Vital Signs / I&O Vital Signs Date Time Temp Pulse Resp B/P (MAP) Pulse Ox O2 Delivery O2 Flow Rate FiO2 03/07/17 06:46 99 100 03/07/17 06:30 95 100 03/07/17 06:00 82 03/07/17 05:00 87 03/07/17 04:00 98.7 97 18 129/73 (91) 98 03/07/17 04:00 89 03/07/17 03:00 88 03/07/17 02:00 80 03/07/17 01:15 62 03/07/17 01:00 84 03/07/17 00:00 86 03/06/17 23:56 98.0 89 18 114/66 (82) 98 03/06/17 23:22 88 114/66 03/06/17 23:00 90 03/06/17 22:00 96 03/06/17 21:00 84 03/06/17 20:00 86 03/06/17 20:00 97.9 86 18 115/72 (86) 98 03/06/17 19:15 98 Nasal Cannula 3.00 03/06/17 19:00 90 03/06/17 18:20 97 03/06/17 17:15 78 03/06/17 16:24 18 03/06/17 16:00 88 03/06/17 15:45 97 03/06/17 15:37 100 Nasal Cannula 3.00 03/06/17 14:02 96 03/06/17 13:40 92 03/06/17 12:41 100 121/83 03/06/17 11:51 93 Nasal Cannula 4.00 03/06/17 11:36 03/06/17 10:22 128 26 124/85 (98) 100 Venturi Mask 15.00 03/06/17 09:30 106 26 132/82 (99) 99 Venturi Mask 15.00 03/06/17 08:54 136 119/71 I/O 03/06/17 03/06/17 03/06/17 03/07/17 03/07/17 03/07/17 07:00 15:00 23:00 07:00 15:00 23:00 Intake Total 480 ml 270 ml Output Total 1100 ml 350 ml Balance -620 ml -80 ml Intake Oral 480 ml 240 ml IV Total 30 ml Output Urine Total 1100 ml 350 ml # Bowel Movements 1 Physical Exam GENERAL: SKIN: Warm and dry. HEAD: Atraumatic. Normocephalic. EYES: Pupils equal and round. ENT: No nasal bleeding or discharge. Mucous membranes pink and moist. NECK: Trachea midline. No JVD. CARDIOVASCULAR: Irregular rate and rhythm RESPIRATORY: No accessory muscle use. Bilateral decreased breath sounds GASTROINTESTINAL: Abdomen soft, non-tender, nondistended. MUSCULOSKELETAL: Extremities without clubbing, cyanosis, or edema. No obvious deformities. NEUROLOGICAL: Awake and alert. No obvious cranial nerve deficits. Normal speech. PSYCHIATRIC: Appropriate mood and affect; insight and judgment normal. Laboratory Laboratory Tests Test 03/06/17 13:30 03/06/17 19:52 Troponin I 0.07 NG/ML 0.06 NG/ML Vitamin B12 Level 254 PG/ML Folate 3.5 NG/ML Imaging Last 24 hours Impressions Chest X-Ray 03/07/17 0000 Signed Impressions: Service Date/Time: Tuesday, March 07, 2017 06:51 - CONCLUSION: 1. Endotracheal tube tip is close to the alethea and should be pulled back a centimeter or 2. 2. No significant change moderate to large pleural effusion and basilar consolidation on the left. 3. Decreased pleural effusion on the right, now small. Patchy right parenchymal consolidation. Man Mcdaniels MD Assessment and Plan Problem List: (1) significant aortic stenosis, CHF (2) moderately severe COPD (3) dyspnea (4) Pulmonary HTN ICD Codes: I27.20 - Pulmonary hypertension, unspecified (5) Atrial fibrillation with RVR ICD Codes: I48.91 - Unspecified atrial fibrillation Status: Chronic (6) CHF (congestive heart failure) ICD Codes: I50.9 - Heart failure, unspecified Assessment and Plan 56 yo F with COPD, diastolic CHF, severe aortic stenosis and pancytopenia admitted for acute dyspnea while residing at rehab; found to be in rapid afib. afib- rate controlled on Cardizem and digoxin. cont warfarin; INR = 1.3 aortic stenosis- severe; not a candidate for surgical intervention at this time CHF- EF 50-55%, +bilateral effusion L>R, currently receiving thoracentesis. creatinine normal anemia- Hgb= 7.8 Problem Qualifiers (1) CHF (congestive heart failure): Melany Cruz Mar 07, 2017 07:54
[2017-03-07] MEDS: RESP: ALBUTEROL 2.5 MG/IPRATROPIUM 0.5 MG NEB (SCH) NEB ×4 (08:00→19:50)
--- NOTE | 2017-03-07 08:09 | HHI.PR ---
Addendum to Inpatient Note Addendum Reason: Additional Documentation Additional Information Residents responded to code blue ~[id number]. Patient had become bradycardic and unresponsive. On arrival patient had pulse and blood pressure. Community Engagement Specialist Dr. Sivla at bedside. Due to respiratory distress patient was intubated for airway protection. Transferred to the ICU for continued care. Stat CXR showed stable L pleural effusion and slightly decreased R pleural effusion. Telemetry revealing AFib; in RVR on transfer to the ICU. Orders: ABG, CBC, BMP Procedures: A-line, pleuracentesis sdw Dr. Woods, Heriberto Beaver MD Mar 07, 2017 8:09 am
[2017-03-07] MEDS ORDERED: POTASSIUM CHLORIDE 25 MEQ EFFERVESCENT TAB PO PRN (08:15)
[2017-03-07] MEDS ORDERED: POTASSIUM CHLOR 40 MEQ PREMIX 100 ML IV-CENTRAL PRN (08:15)
[2017-03-07] MEDS ORDERED: POTASSIUM PHOSPHATE INJ 30 MMOL in SODIUM CHLOR 0.9% 250 ML INJ 250 ML IV PRN (08:15)
[2017-03-07] MEDS ORDERED: POTASSIUM PHOSPHATE MONOBASIC 500 MG TAB PO/TUBE PRN (08:15)
[2017-03-07] MEDS ORDERED: POTASSIUM PHOSPHATE MONOBASIC 500 MG TAB PO PRN (08:15)
[2017-03-07] MEDS ORDERED: MAGNESIUM SULFATE INJ 2 GM in SODIUM CHLORIDE 0.9% INJ 96 ML IV PRN (08:15)
[2017-03-07] MEDS ORDERED: PHENYLEPHRINE INJ 160 MG in DEXTROSE 5% IN WATE 500 ML INJ 484 ML IV PRN ×2 (08:15)
[2017-03-07] MEDS ORDERED: SODIUM PHOSPHATE INJ 30 MMOL in SODIUM CHLOR 0.9% 250 ML INJ 240 ML IV PRN (08:15)
[2017-03-07] MEDS ORDERED: POTASSIUM CHLOR 20 MEQ PREMIX 100 ML IV PRN (08:15)
[2017-03-07] MEDS ORDERED: TERBUTALINE INJ 1 MG/ML AMP SQ PRN (08:15)
[2017-03-07] MEDS ORDERED: MAGNESIUM OXIDE 400 MG TAB PO PRN (08:15)
[2017-03-07] MEDS ORDERED: MAGNESIUM SULFATE INJ 4 GM in SODIUM CHLORIDE 0.9% INJ 92 ML IV PRN (08:15)
--- NOTE | 2017-03-07 08:25 | PD.CONS ---
[facility] Service Critical Care Medicine Consult Requested By Family medicine team Reason for Consult Acute Respiratory Arrest Primary Care Physician Venessa Chung MD History of Present Illness This is a 65-year-old female with a history of CHF secondary valvulopathy, COPD , atrial fibrillation, and critical aortic stenosis who was initially admitted with CHF exacerbation yesterday to the floor. Today she had a sudden acute change in condition and had a respiratory arrest for which debra altamirano was called. I immediately arrive at the [facility] where the patient had a pulse, but was not breathing with agonal respirations. She was being bag valve mask ventilated by the respiratory therapist. We assess condition and emergently transported to intensive care unit and she was emergently intubated. At this point she became hypotensive and tachycardic with atrial fibrillation with rapid ventricular response. Given her critical aortic stenosis, phenylephrine infusion was started as well as diltiazem infusion. Emergently placed arterial line, and central line. In addition, the primary family medicine team is at bedside and stated that she had bilateral pleural effusions, left greater than right, but it been chronic and had been drinking before, and they felt that her effusions have increased in size since prior admission. Chest x-ray confirms a moderate sized left pleural effusion. Due to her acute hypoxemia and respiratory arrest, emergent left-sided thoracentesis was performed, however there is a large amount of loculated material and only approximately 100 cc of fluid was able to be removed. Critical-care medicine is consulted to help evaluate and manage her hemodynamic collapse, respiratory arrest. Review of Systems ROS Limitations: Clinical Condition, Altered Mental Status, Unresponsive Past Family Social History Allergies: Coded Allergies: No Known Allergies (Verified Allergy, Unknown, 03/06/17) Past Medical History A fib CHF COPD Urinary retention Pancytopenia on previous admission Past Surgical History Left thoracotomy decortication in January 2017 Reported Medications Magnesium Oxide 400 Mg Tab 400 Mg PO Q12HR Furosemide 20 Mg Tab 20 Mg PO BID@,18 Potassium Chloride ER (Potassium Chloride) 10 Meq Cap 20 Meq PO TID Oxycodone-Acetaminophen 10-325 (Oxycodone HCl/Acetaminophen) 10 Mg-325 Mg Tablet 1 Tab PO Q6H PRN for back pain Diltiazem CD 24 HR 120 Mg Caper 120 Mg PO DAILY Digoxin 0.125 Mg Tab 0.125 Mg PO DAILY Coumadin (Warfarin) 4 Mg Tab 4 Mg PO DAILY@1600 Ventolin Hfa 18 GM Inh (Albuterol Sulfate) 90 Mcg/Act Aer 2 Puff INH Q4-6H PRN Spiriva Handihaler (Tiotropium Inh) 18 Mcg Cap 18 Mcg INH DAILY 1 capsule = 18 mcg Ferosul (Ferrous Sulfate) 325 Mg (65 Mg Iron) Tablet 325 Mg PO BID Flomax (Tamsulosin HCl) 0.4 Mg Cap 0.4 Mg PO DAILY Urecholine (Bethanechol Chloride) 25 Mg Tab 25 Mg PO Q8H Tylenol (Acetaminophen) 325 Mg Tab 325 Mg PO Q4HR PRN Active Ordered Medications See MAR Family History Mother- valve issues and CHF Social History currently at [facility] lives in [place], [place] with Tobacco- quit 6.5 yrs ago, smoked for 34 yrs Alcohol- socially on the weekends Illicit drugs- none Physical Exam Vital Signs Vital Signs Date Time Temp Pulse Resp B/P (MAP) Pulse Ox O2 Delivery O2 Flow Rate FiO2 03/07/17 06:46 99 100 03/07/17 06:30 95 100 03/07/17 06:00 82 03/07/17 05:00 87 03/07/17 04:00 98.7 97 18 129/73 (91) 98 03/07/17 04:00 89 03/07/17 03:00 88 03/07/17 02:00 80 03/07/17 01:15 62 03/07/17 01:00 84 03/07/17 00:00 86 03/06/17 23:56 98.0 89 18 114/66 (82) 98 03/06/17 23:22 88 114/66 03/06/17 23:00 90 03/06/17 22:00 96 03/06/17 21:00 84 03/06/17 20:00 86 03/06/17 20:00 97.9 86 18 115/72 (86) 98 03/06/17 19:15 98 Nasal Cannula 3.00 03/06/17 19:00 90 03/06/17 18:20 97 03/06/17 17:15 78 03/06/17 16:24 18 03/06/17 16:00 88 03/06/17 15:45 97 03/06/17 15:37 100 Nasal Cannula 3.00 03/06/17 14:02 96 03/06/17 13:40 92 03/06/17 12:41 100 121/83 03/06/17 11:51 93 Nasal Cannula 4.00 03/06/17 11:36 03/06/17 10:22 128 26 124/85 (98) 100 Venturi Mask 15.00 03/06/17 09:30 106 26 132/82 (99) 99 Venturi Mask 15.00 03/06/17 08:54 136 119/71 Physical Exam On my initial evaluation at the [facility] event, the patient was obtunded, with agonal respirations, being [id number] ventilated. She had a pulse and a heart rate and blood pressure in the 150 systolic. She is not cyanotic, but was very obviously agonal in severe distress. Laboratory Laboratory Tests Test 03/06/17 13:30 03/06/17 19:52 Troponin I 0.07 0.06 Vitamin B12 Level 254 Folate 3.5 Result Diagram: 03/06/17 0515 03/06/17 0515 Imaging Last Impressions Neck CTA 03/07/17 0000 Signed Impressions: Service Date/Time: Tuesday, March 07, 2017 09:49 - CONCLUSION: 1. Aneurysmal dilation of the tubular portion of the ascending aorta with a maximum dimension of 4.6 cm. 2. Atherosclerotic plaquing at the carotid bifurcations. No hemodynamically significant stenosis identified. Stew Lindsay MD Head CTA 03/07/17 0000 Signed Impressions: Service Date/Time: Tuesday, March 07, 2017 09:49 - CONCLUSION: Negative examination. Stew Lindsay MD Head CT 03/07/17 0000 Signed Impressions: Service Date/Time: Tuesday, March 07, 2017 09:43 - CONCLUSION: No evidence of acute intracranial pathology. Chronic ischemic changes as above. Sterling Wolfe MD Chest X-Ray 03/07/17 0000 Signed Impressions: Service Date/Time: Tuesday, March 07, 2017 12:40 - CONCLUSION: 1. No pneumothorax identified. 2. Saphenous catheter and ET tube in good position. 3. Large right pleural effusion. Similar in size previous. Stew Lindsay MD CT Angiography 03/07/17 0000 Signed Impressions: Service Date/Time: Tuesday, March 07, 2017 09:56 - CONCLUSION: 1. Dense consolidation right lower lobe not present previously characteristic of pneumonia. 2. Reduction in size of the left pleural effusion since the prior exam which has gas bubbles within it probably from chest tube insertion previously. 3. Right pleural effusion and bilateral parenchymal infiltrates also seen in addition to small right pleural effusion. Dyllan Sin MD Assessment and Plan Assessment and Plan Assessment: 56yF with end-stage critical aortic stenosis now s/p respiratory arrest. Remains very critically ill. will support hemodynamics. I have re- engaged palliative care. without surgical options for aortic valve replacement, her life expectancy is much less than a year, and given her acute decline, she may not survive this hospitalization. Plan by systems: Neurologic: Acute encephalopathy Frequent neuro checks Avoid long-acting sedating meds Versed for goal RASS -2 CT brain /2 negative for acute disease CTA head and neck /2 negative for acute disease Respiratory: Acute hypoxic and hypercarbic respiratory failure Respiratory arrest Intubated /2 for respiratory arrest Vent bundle Head of bed at 30 Nebs No weaning of mechanical ventilation until improved hemodynamics Cardiovascular: Cardiogenic shock Critical aortic stenosis Atrial fibrillation with rapid ventricular response Digoxin 0.5 mg IV 1 Continued digoxin 0.125 mg by mouth daily diltiazem drip phenylephrine infusion for goal map > 65 mmhg. send lactate. Renal: Acute Kidney Injury - [facility] for accurate I/Os -- Strict I/Os FEN/GI: Acute protein calorie malnutrition- severe ICU electrolyte protocol NPO daily BMP Heme/ID: Pancytopenia - secondary to likely MDS no infectious etiology suspected at this time. afebrile. trend daily cbc. does not meet transfusion triggers at this time. Endocrine: Hyperglycemia of critical illness -- SSI Prophylaxis: GI Prophylaxis Pepcid DVT Prophylaxis -- SCDs Subcutaneous heparin Lines: /2 right brachial arterial line /2 right IJ triple-lumen catheter 03/07 [facility] Dispo: Admit to ICU. Critically ill This patient remains critically ill with one or more organ systems which are or may become a threat to life. I have spent in excess of 54 minutes discontinuously in the care and management of this patient. This time is exclusive of procedures, and includes, but is not limited to, evaluation of the patient, review of the medical record, discussions with family, consultants, nursing staff, or respiratory therapy, and documentation in the medical record. Amado Silva MD Mar 07, 2017 08:24
[2017-03-07] MEDS ORDERED: MIDAZOLAM HCL 5 MG/ML VIAL (1 ML) ONE (08:44)
[2017-03-07 08:50] LABS: AUTOMATED NEUTROPHIL # 8.6 TH/MM3 (1.8-7.7); BASOPHIL % 0.2 % (0.0-2.0); HEMATOCRIT 22.5 % (35.0-46.0); HEMOGLOBIN 7.6 GM/DL (11.6-15.3); LYMPH % 3.7 % (9.0-44.0); LYMPHOCYTE # 0.4 TH/MM3 (1.0-4.8); MEAN CELL VOLUME 100.7 FL (80.0-100.0); MEAN CORPUSCULAR HEMOGLOBIN 33.8 PG (27.0-34.0); MEAN CORPUSCULAR HGB CONC 33.6 % (32.0-36.0); MEAN PLATELET VOLUME 8.2 FL (7.0-11.0); MONO % 7.9 % (0.0-8.0); MONOCYTE # 0.8 TH/MM3 (0-0.9); NEUT % 88.2 % (16.0-70.0); PLATELET COUNT 242 TH/MM3 (150-450); RED BLOOD COUNT 2.24 MIL/MM3 (4.00-5.30); RED CELL DISTRIBUTION WIDTH 20.9 % (11.6-17.2); WHITE BLOOD COUNT 9.7 TH/MM3 (4.0-11.0)
[2017-03-07] MEDS ORDERED: ROCURONIUM INJ 50 MG/5 ML VIAL ONE (08:57)
[2017-03-07 09:00] LABS: ALBUMIN 2.1 GM/DL (3.4-5.0); AST (GOT) 11 U/L (15-37); BICARBONATE 29.1 MEQ/L (21.0-32.0); BLOOD UREA NITROGEN 17 MG/DL (7-18); CALCIUM 8.6 MG/DL (8.5-10.1); CHLORIDE 98 MEQ/L (98-107); CREATININE 0.23 MG/DL (0.50-1.00); GLOMERULAR FILTRATION RATE 313 ML/MIN (>89); GLUCOSE,RANDOM 208 MG/DL (74-106); SODIUM (NA) 135 MEQ/L (136-145)
[2017-03-07] MEDS ORDERED: TIOTROPIUM BROMIDE 18 MCG INH INH SCH (09:00)
[2017-03-07] MEDS: SODIUM CHLORIDE 0.9% FLUSH 10 ML FLUSH IV FLUSH SCH ×2 (09:00→21:00)
[2017-03-07] MEDS ORDERED: DIGOXIN 0.5 MG/2 ML VIAL IV PUSH ONE (09:00)
--- NOTE | 2017-03-07 09:00 | HHI.HP ---
[facility] Service Family Medicine Primary Care Physician Venessa Chung MD Admission Diagnosis COPD WITH HYPOXEMIA,AFIB WITH RVR Diagnoses: (1) Pleural effusion Diagnosis: Principal (2) Atrial fibrillation with RVR Diagnosis: Principal (3) COPD (chronic obstructive pulmonary disease) Diagnosis: Principal (4) CHF (congestive heart failure) Diagnosis: Principal (5) Macrocytic anemia Diagnosis: Principal (6) Elevated alkaline phosphatase level Diagnosis: Principal (7) Urinary retention Diagnosis: Principal (8) FEN Diagnosis: Principal International Travel<30 Days: No Contact w/Intl Traveler<30days: No Known Affected Area: No History of Present Illness Mrs. Steven is a 65-year-old white female with a past medical history of CHF, COPD, A fib and presenting with shortness of breath. She stateed that her symptoms started the morning of admission while she was laying in bed. Suddenly she felt short of breath. She had never experienced this type of shortness of breath before because it was so sudden. She states that it felt different from her previous COPD flares. She was also having pain in her left back, arm, and neck, but this is chronic for her since her thoracotomy months ago. Her Rehab ( [facility]), sent her to the hospital because of the shortness of breath and her going into A. fib. She was discharged to the rehabilitation center on 02/25 so that she could work with PT to get strong for an aortic valve replacement. She is currently on Coumadin and digoxin for her A. fib. No chest pains, no history of blood clots. Howes palpitations. Of note was diagnosed with pneumonia a few days ago at the rehab. Was given antibiotics, the names of which she does not know. She states that they were given through an IV and also in pill form. No fevers or chills. Of note, had a left thoracotomy decortication in January [address] Recinos[address] Chung for Pulmonology. Has not yet seen a business applications analyst outside the hospital. PCP is Dr. Sainz. She had a fib with a rapid ventricular rate on admission and had pulmonary edema. She was placed on a diltiazem drip and her rate was controlled. She was seen by Cardiology and Pulmonary and was going to have thoracentesis today. However, she deteriorated and a code was called and she was intubated and transferred to the cardiac critical care unit. She was not hypotensive but did require pressors when she was sedated for intubation. Her vitals overnight had been stable. She was diuresed on admission. It is unclear exactly why she deteriorated but with severe or critical even a momentary hypoperfusion can cause severe problems. However, she required rate control and diuresis so she is very fragile with her underlying anatomic condition. Review of Systems Other Constitutional: COMPLAINS OF: Weight loss, DENIES: Fever, Chills, Dizziness Eyes: DENIES: Blurred vision Ears, nose, mouth, throat: DENIES: Vertigo Respiratory: COMPLAINS OF: Shortness of breath, DENIES: Cough, Sputum production Cardiovascular: COMPLAINS OF: Palpitations, DENIES: Chest pain, Lower Extremity Edema Gastrointestinal: DENIES: Black stools, Bloody stools, Constipation, Diarrhea Musculoskeletal: COMPLAINS OF: Back pain, Neck pain, DENIES: Joint Swelling Integumentary: DENIES: Rash Hematologic/lymphatic: COMPLAINS OF: Bruising Neurologic: DENIES: Headache, Localized weakness, Seizures Past Family Social History Past Medical History A fib CHF COPD Urinary retention Pancytopenia on previous admission probably MDS Past Surgical History Left thoracotomy decortication in January 2017 Reported Medications Magnesium Oxide 400 Mg Tab 400 Mg PO Q12HR Furosemide 20 Mg Tab 20 Mg PO BID@09,18 Potassium Chloride ER (Potassium Chloride) 10 Meq Cap 20 Meq PO TID Oxycodone-Acetaminophen 10-325 (Oxycodone HCl/Acetaminophen) 10 Mg-325 Mg Tablet 1 Tab PO Q6H PRN for back pain Diltiazem CD 24 HR 120 Mg Caper 120 Mg PO DAILY Digoxin 0.125 Mg Tab 0.125 Mg PO DAILY Coumadin (Warfarin) 4 Mg Tab 4 Mg PO DAILY@1600 Ventolin Hfa 18 GM Inh (Albuterol Sulfate) 90 Mcg/Act Aer 2 Puff INH Q4-6H PRN Spiriva Handihaler (Tiotropium Inh) 18 Mcg Cap 18 Mcg INH DAILY 1 capsule = 18 mcg Ferosul (Ferrous Sulfate) 325 Mg (65 Mg Iron) Tablet 325 Mg PO BID Flomax (Tamsulosin HCl) 0.4 Mg Cap 0.4 Mg PO DAILY Urecholine (Bethanechol Chloride) 25 Mg Tab 25 Mg PO Q8H Reported Tylenol (Acetaminophen) 325 Mg Tab 325 Mg PO Q4HR PRN Allergies: Coded Allergies: No Known Allergies (Verified Allergy, Unknown, 03/06/17) Family History Mother- valve issues and CHF Social History currently at [facility] lives in [place], [place] with Tobacco- quit 6.5 yrs ago, smoked for 34 yrs Alcohol- socially on the weekends Illicit drugs- none Physical Exam Vital Signs Vital Signs Date Time Temp Pulse Resp B/P (MAP) Pulse Ox O2 Delivery O2 Flow Rate FiO2 03/07/17 06:46 99 100 03/07/17 06:30 95 100 03/07/17 06:00 82 03/07/17 05:00 87 03/07/17 04:00 98.7 97 18 129/73 (91) 98 03/07/17 04:00 89 03/07/17 03:00 88 03/07/17 02:00 80 03/07/17 01:15 62 03/07/17 01:00 84 03/07/17 00:00 86 03/06/17 23:56 98.0 89 18 114/66 (82) 98 03/06/17 23:22 88 114/66 03/06/17 23:00 90 03/06/17 22:00 96 03/06/17 21:00 84 03/06/17 20:00 86 03/06/17 20:00 97.9 86 18 115/72 (86) 98 03/06/17 19:15 98 Nasal Cannula 3.00 03/06/17 19:00 90 03/06/17 18:20 97 03/06/17 17:15 78 03/06/17 16:24 18 03/06/17 16:00 88 03/06/17 15:45 97 03/06/17 15:37 100 Nasal Cannula 3.00 03/06/17 14:02 96 03/06/17 13:40 92 03/06/17 12:41 100 121/83 03/06/17 11:51 93 Nasal Cannula 4.00 03/06/17 11:36 03/06/17 10:22 128 26 124/85 (98) 100 Venturi Mask 15.00 03/06/17 09:30 106 26 132/82 (99) 99 Venturi Mask 15.00 03/06/17 08:54 136 119/71 Physical Exam GENERAL: This is a well-nourished, well-developed white female patient laying in bed on nasal canula diuresing and feeling better with her breathing when I saw her in her room on admission. This am intubated. SKIN: No rashes or lesions. Cool and dry. Extensive ecchymoses on bilateral arms and legs. Petechiae and purpura on chest. HEAD: Atraumatic. Normocephalic. EYES: Pupils equal round and reactive. Extraocular motions intact. No scleral icterus. No injection or drainage. ENT: Nose without bleeding, purulent drainage or septal hematoma. Airway patent. NECK: Trachea midline. No JVD or lymphadenopathy. Supple, nontender, no meningeal signs. CARDIOVASCULAR: irregular irregular rate and rhythm without gallops, or rubs. Loud systolic murmur at left sternal border. RESPIRATORY: Decreased breath sounds bilaterally with expiratory wheezes. GASTROINTESTINAL: Abdomen soft, non-tender, distended. No hepato-splenomegaly, or palpable masses. No guarding. MUSCULOSKELETAL: Extremities without clubbing, cyanosis. slight pitting edema bilaterally still present today. No joint tenderness, effusion, or edema noted. NEUROLOGICAL: Awake and alert. Motor and sensory grossly within normal limits. Normal speech. Laboratory Laboratory Tests Test 03/06/17 13:30 03/06/17 19:52 03/07/17 08:20 Troponin I 0.07 0.06 Vitamin B12 Level 254 Folate 3.5 Result Diagram: 03/06/17 0515 03/06/17 0515 Imaging Last Impressions Chest X-Ray 03/06/17 0000 Signed Impressions: Service Date/Time: Monday, March 06, 2017 10:11 - CONCLUSION: 1. Stable large loculated left pleural effusion with associated presumed compressive atelectasis. 2. Slightly progressed small right pleural effusion with associated right lower lobe airspace disease, presumably atelectasis. 3. Cardiomegaly. MD Roslyn Greenfield VTE Risk Assessment Caprini VTE Risk Assessment: Mod/High Risk (score >= 2) Caprini Risk Assessment Model Point Value = 1 Point Value = 2 Point Value = 3 Point Value = 5 Age 41-60 Minor surgery BMI > 25 kg/m2 Swollen legs Varicose veins or History of unexplained or recurrent spontaneous Oral contraceptives or hormone replacement Sepsis (< 1 month) Serious lung disease, including pneumonia (< 1 month) Abnormal pulmonary function Acute myocardial infarction Congestive heart failure (< 1 month) History of inflammatory bowel disease Medical patient at bed rest Age 61-74 Arthroscopic surgery Major open surgery (> 45 min) Laparoscopic surgery (> 45 min) Malignancy Confined to bed (> 72 hours) Immobilizing plaster cast Central venous access Age >= 75 History of VTE Family history of VTE Factor V Leiden Prothrombin [id number] Lupus anticoagulant Anticardiolipin antibodies Elevated serum homocysteine Heparin-induced thrombocytopenia Other congenital or acquired thrombophilia Stroke (< 1 month) Elective arthroplasty Hip, pelvis, or leg fracture Acute spinal cord injury (< 1 month) Prophylaxis Regimen Total Risk Factor Score Risk Level Prophylaxis Regimen 0-1 Low Early ambulation 2 Moderate Order ONE of the following: *Sequential Compression Device (SCD) *Heparin 5000 units SQ BID 3-4 Higher Order ONE of the following medications: *Heparin 5000 units SQ TID *Enoxaparin/Lovenox 40 mg SQ daily (WT < 150 kg, CrCl > 30 mL/min) *Enoxaparin/Lovenox 30 mg SQ daily (WT < 150 kg, CrCl > 10-29 mL/min) *Enoxaparin/Lovenox 30 mg SQ BID (WT < 150 kg, CrCl > 30 mL/min) AND/OR *Sequential Compression Device (SCD) 5 or more Highest Order ONE of the following medications: *Heparin 5000 units SQ TID (Preferred with Epidurals) *Enoxaparin/Lovenox 40 mg SQ daily (WT < 150 kg, CrCl > 30 mL/min) *Enoxaparin/Lovenox 30 mg SQ daily (WT < 150 kg, CrCl > 10-29 mL/min) *Enoxaparin/Lovenox 30 mg SQ BID (WT < 150 kg, CrCl > 30 mL/min) AND *Sequential Compression Device (SCD) Assessment and Plan Assessment and Plan Mrs. Steven is a 56yo white female with a PMH of COPD, CHF, and atrial fibrillation who presented to the ED with shortness of breath and in A fib with RVR. She was admitted to inpatient. appreciate help of all specialists Problem List: (1) Pleural effusion ICD Codes: J90 - Pleural effusion, not elsewhere classified Status: Chronic Plan: Pt presenting the ED with shortness of breath. DDx: Pleural effusion vs COPD exacerbation vs PE (Well's score is low risk) vs CT vs CHF exacerbation vs severe aortic stenosis. CXR at admission shows stable large loculated left pleural effusion will with associated presumed compressive atelectasis. Slightly progressed small right pleural effusion with associated right lower lobe airspace disease, presumably atelectasis. * Consulted Pulmonology, pt known to Dr. Chung. * Pt had thoracentesis this am * Will need to investigate to figure out the cause of this effusion. Malignant process? Past studies were mostly negative. bilateral effusions even if asymmetric can be related to CHF or other causes of fluid overload (2) Atrial fibrillation with RVR ICD Codes: I48.91 - Unspecified atrial fibrillation Status: Chronic Plan: EKG on admission shows Atrial fibrillation with RVR with rate of 125. Continued to be tachycardic. INR is subtherapeutic at 1.3. * Troponin at admission was 0.05, will continue to follow * Patient was given Diltiazem po and then started on a drip in the ED * Patient was also given Digoxin 0.125mg IV in the ED * Continue Diltiazem drip * Continue Digoxin qD * Level at admission was low at 0.6 * Continue at home Coumadin * Consulted Pharmacy for daily dosing, appreciate assistance * Consult Cardiology, appreciate recommendations (3) COPD (chronic obstructive pulmonary disease) ICD Codes: J44.9 - Chronic obstructive pulmonary disease, unspecified Status: Chronic Plan: Patient with history COPD presenting the ED with shortness of breath, which can be due to multiple etiologies. Patient felt better after being given nebs in the ED. Patient has a previous hx of respiratory failure and intubation so will monitor closely. * Albuterol nebs q2h and duonebs q4h * Ceftriaxone 1g IV q24h * Azithromycin 500 po q24h * Continuous pulse ox (4) CHF (congestive heart failure) ICD Codes: I50.9 - Heart failure, unspecified Plan: Patient previously diagnosed with CHF. BNP on admission is 388. Echocardiogram on 12/30/16 showed grossly normal left ventricular systolic function, moderate to severe pulmonary hypertension, mild mitral valve stenosis , minimal mitral annular calcification, mild mitral valve regurgitation, moderate calcific aortic valve stenosis, Mild/moderate aortic valve regurgitation. * repeated echo due to loud murmur on exam, worse AR * Furosemide 40mg IV once in ED * Will continue at home furosemide dosing of 20mg BID (5) Macrocytic anemia ICD Codes: D53.9 - Nutritional anemia, unspecified Plan: Hbg upon admission was 7.8 with MCV of 102.8. Patient only drinks socially on weekends as confirmed by her so likely not due to alcohol abuse. Previous studies showed pancytopenia which was worked up with a bone marrow biopsy in February which showed hypocellular bone marrow with trilineage hypoplasia. Peripheral smear at that time also showed severe macrocytic anemia and mild thrombocytopenia. * Ordered peripheral blood smear * B12 and folate levels technically fine but a B12 of 400 is preferred. will supplement can give po 1000 mg daily once taking po * likely has myelodysplastic syndrome per old record (6) Elevated alkaline phosphatase level ICD Codes: R74.8 - Abnormal levels of other serum enzymes Plan: Alkaline phosphatase elevated at admission at 240. This was also elevated at previous admissions, but not as high. AST, ALT, and bilirubin are WNL. Since this is the case, may be related to bone process. Malignancy vs recent fracture. * Consider fractionating if any doubt about this. pagets disease is a possibility as well but she is so ill now that this can be evaluated later (7) Urinary retention ICD Codes: R33.9 - Retention of urine, unspecified Status: Chronic Plan: * Continue at home medications (8) FEN Status: Acute Plan: Fluids: tolerating PO Electrolytes: monitor and replete as needed Nutrition: heart-healthy diet DVT Prophylaxis: on Coumadin, was not therapeutic GI Prophylaxis: none indicated at this time Fever/Pain management: Tylenol/Continue at home Percocet for back pain Problem Qualifiers (1) COPD (chronic obstructive pulmonary disease): Qualified Codes: J44.9 - Chronic obstructive pulmonary disease, unspecified (2) CHF (congestive heart failure): Qualified Codes: I50.9 - Heart failure, unspecified Cecy Hays MD Mar 07, 2017 09:00
[2017-03-07 09:01] LABS: ALT (GPT) 19 U/L (10-53)
[2017-03-07 09:03] LABS: ALKALINE PHOSPHATASE 188 U/L (45-117); TOTAL BILIRUBIN ADULT 0.3 MG/DL (0.2-1.0); TOTAL PROTEIN 5.7 GM/DL (6.4-8.2)
[2017-03-07 09:06] LABS: INTERNATIONAL NORMALIZED RATIO 1.6 RATIO; PROTHROMBIN TIME - PATIENT 16.6 SEC (9.8-11.6)
[2017-03-07] MEDS ORDERED: EPINEPHrine HCL (1:10,000) 1 MG/10 ML SYRINGE ONE (09:31)
[2017-03-07] MEDS ORDERED: ATROPINE SULFATE 1 MG/10 ML SYRINGE ONE (09:31)
[2017-03-07] MEDS ORDERED: IOHEXOL 350 MG/ML 10 ML VIAL (for RAD DIAG) IVCONTRAST ONE (10:16)
--- NOTE | 2017-03-07 10:23 | RADRPT ---
EXAM DATE/TIME: 03/07/2017 09:43 [facility] COMPARISON: CT BRAIN W/O CONTRAST, February 03, 2017, 16:25. INDICATIONS : Altered mental status. RADIATION DOSE: 56.35 CTDIvol (mGy) MEDICAL HISTORY : Chronic obstructive pulmonary disease. SURGICAL HISTORY : None. ENCOUNTER: Initial ACUITY: 1 day PAIN SCALE: Non-responsive LOCATION: Bilateral head TECHNIQUE: Multiple contiguous axial images were obtained of the head. Using automated exposure control and adj ustment of the mA and/or kV according to patient size, radiation dose was kept as low as reasonably a chievable to obtain optimal diagnostic quality images. DICOM format image data is available electro nically for review and comparison. FINDINGS: Noncontrast axial head CT demonstrates the ventricles to be normal in size and configuration with a n ormal sulcal pattern. No acute intracranial hemorrhage, acute cortical infarction, mass or midline sh ift is seen. There is periventricular hypodensity compatible with chronic ischemic change slightly mo re than expected for patient this age. Posterior fossa structures are unremarkable. Bone windows are unremarkable. CONCLUSION: No evidence of acute intracranial pathology. Chronic ischemic changes as above. Sterling Wolfe MD on March 07, 2017 at 10:19 Board Certified Radiologist. This report was verified electronically.
[2017-03-07 10:32] LABS: PLEURAL FLUID HISTIOCYTES 4 %; PLEURAL FLUID LYMPHS 5 %; PLEURAL FLUID MONOS 1 %; PLEURAL FLUID POLYS (SEGS) 90 %; PLEURAL FLUID RBC 2950 /MM3 (0-0); PLEURAL FLUID WBC 13981 /MM3 (0-10)
--- NOTE | 2017-03-07 10:39 | RADRPT ---
EXAM DATE/TIME: 03/07/2017 09:56 [facility] COMPARISON: CHEST SINGLE AP, March 07, 2017, 6:51. CT THORAX W CONTRAST, December 31, 2016, 14:44. INDICATIONS : Abnormal chest x-ray. IV CONTRAST: 50 cc Omnipaque 350 (iohexol) IV RADIATION DOSE: 7.72 CTDIvol (mGy) MEDICAL HISTORY : Chronic obstructive pulmonary disease. SURGICAL HISTORY : None. ENCOUNTER: Initial ACUITY: 1 day PAIN SCALE: Non-responsive LOCATION: Bilateral chest TECHNIQUE: Volumetric scanning of the chest was performed using a pulmonary embolism protocol MIP images were re constructed. Using automated exposure control and adjustment of the mA and/or kV according to patien t size, radiation dose was kept as low as reasonably achievable to obtain optimal diagnostic quality images. DICOM format image data is available electronically for review and comparison. Follow-up recommendations for detected pulmonary nodules are based at a minimum on nodule size and pa tient risk factors according to Fleischner Society Guidelines. FINDINGS: Previously seen left pleural effusion is smaller measures 3.4 cm in both exam and measured 6.5 c m on the study dated 12/2016 with gas bubbles within it. There is dense airspace consolidation of rig ht lower lobe not present previously. Small right pleural effusion is also identified and there is al so consolidation in left lower lobe with parenchymal infiltrates in the right upper lobe and lingula as well. There is no evidence for PE for technique. There is compression deformity of upper thoracic spine most likely osteoporotic and not changed. CONCLUSION: 1. Dense consolidation right lower lobe not present previously characteristic of pneumonia. 2. Reduction in size of the left pleural effusion since the prior exam which has gas bubbles within i t probably from chest tube insertion previously. 3. Right pleural effusion and bilateral parenchymal infiltrates also seen in addition to small right pleural effusion. Dyllan Sin MD on March 07, 2017 at 10:31 Board Certified Radiologist. This report was verified electronically.
[2017-03-07] MEDS: cefTRIAXone INJ 1,000 MG in SODIUM CHLORIDE 0.9% INJ 100 ML IV SCH (10:46)
[2017-03-07] MEDS: DOCUSATE SODIUM 50 MG/SENNA 8.6 MG TAB PO SCH ×2 (10:47→21:00)
[2017-03-07] MEDS: AZITHROMYCIN 250 MG TAB PO SCH (10:47)
[2017-03-07] MEDS: TAMSULOSIN HCL 0.4 MG CAP PO SCH (10:47)
[2017-03-07] MEDS: FERROUS SULFATE 325 MG (65 MG ELEMENTAL IRON) TAB PO SCH ×2 (10:47→21:00)
[2017-03-07] MEDS: POTASSIUM CHLORIDE 10 MEQ CAP PO SCH (10:48)
[2017-03-07] MEDS: DIGOXIN 0.5 MG/2 ML VIAL IV PUSH SCH (10:49)
[2017-03-07] MEDS ORDERED: MIDAZOLAM HCL 5 MG/5 ML VIAL IV PUSH ONE (11:32)
[2017-03-07 11:33] LABS: ALBUMIN, PLEURAL FLUID 0.8 G/DL; TOTAL PROTEIN,PLEURAL FLUID 2.4 GM/DL
--- NOTE | 2017-03-07 11:34 | RADRPT ---
EXAM DATE/TIME: 03/07/2017 09:49 [facility] COMPARISON: CT BRAIN W/O CONTRAST, March 07, 2017, 9:43. INDICATIONS : Altered mental status. IV CONTRAST: 60 cc Omnipaque 350 (iohexol) IV ; Cumulative dose for multiple exams. RADIATION DOSE: 16.31 CTDIvol (mGy) ; Combined studies MEDICAL HISTORY : Chronic obstructive pulmonary disease. SURGICAL HISTORY : None. ENCOUNTER: Initial ACUITY: 1 day PAIN SCALE: Non-responsive LOCATION: Bilateral head TECHNIQUE: Volumetric scanning was performed using a multi-row detector CT scanner. The data was post processed with a variety of visualization algorithms including full volume maximum intensity projection, multi -planar sliding thin slab reformation, curved planar reformation, and surface rendering techniques. Using automated exposure control and adjustment of the mA and/or kV according to patient size, radiat ion dose was kept as low as reasonably achievable to obtain optimal diagnostic quality images. DICO M format image data is available electronically for review and comparison. FINDINGS: There is excellent visualization of the major intracranial arteries out to the second-order branch ve ssels. There is no evidence for aneurysm, vessel truncation or stenosis, and no evidence for vascula r malformation. CONCLUSION: Negative examination. Stew Lindsay MD on March 07, 2017 at 11:29 Board Certified Radiologist. This report was verified electronically.
[2017-03-07] MEDS: DILTIAZEM INJ 125 MG in SODIUM CHLORIDE 0.9% INJ 100 ML IV PRN (11:35)
[2017-03-07] MEDS: MIDAZOLAM 100 MG/100 ML INJ 100 ML IV PRN (11:35)
--- NOTE | 2017-03-07 11:37 | RADRPT ---
EXAM DATE/TIME: 03/07/2017 09:49 [facility] COMPARISON: CT BRAIN W/O CONTRAST, March 07, 2017, 9:43. INDICATIONS : Altered mental status. IV CONTRAST: 60 cc Omnipaque 350 (iohexol) IV RADIATION DOSE: 16.31 CTDIvol (mGy) ; Combined studies MEDICAL HISTORY : Chronic obstructive pulmonary disease. SURGICAL HISTORY : None. ENCOUNTER: Initial ACUITY: 1 day PAIN SCALE: Non-responsive LOCATION: Bilateral neck Elevated flow velocities and ICA/CCA ratios have been found to correlate with increased degrees of vessel stenosis, calculated as percentage of diameter relative to a normal segment of distal ICA/CCA. TECHNIQUE: Volumetric scanning was performed using a multirow detector CT scanner. The data was post processed with a variety of visualization algorithms including full-volume maximum intensity projection, multip lanar sliding thin-slab reformation, curved-planar reformation, and surface-rendering techniques. Us ing automated exposure control and adjustment of the mA and/or kV according to patient size, radiatio n dose was kept as low as reasonably achievable to obtain optimal diagnostic quality images. DICOM f ormat image data is available electronically for review and comparison. FINDINGS: AORTIC ARCH: There is aneurysmal dilation of the tubular portion of the ascending aorta at 4.6 cm. The arch remain s dilated across its proximal segment. Of note, the left vertebral artery originates directly from th e arch. The origins of the great vessels are otherwise widely patent. RIGHT CAROTID: The common carotid is widely patent. There is mild atherosclerotic plaquing at the bifurcation. There is both hard and soft plaque present. There is no hemodynamically significant stenosis identified. LEFT CAROTID: The common carotid is widely patent. There is mild atherosclerotic plaquing present at the bifurcatio n. There is no hemodynamically significant stenosis. VERTEBRALS: The left vertebral originates directly from the arch. Both vertebrals are widely patent. Note is made of bilateral pleural effusions and pleural calcification on the left. CONCLUSION: 1. Aneurysmal dilation of the tubular portion of the ascending aorta with a maximum dimension of 4.6 cm. 2. Atherosclerotic plaquing at the carotid bifurcations. No hemodynamically significant stenosis iden tified. Stew Lindsay MD on March 07, 2017 at 11:32 Board Certified Radiologist. This report was verified electronically.
[2017-03-07] MEDS ORDERED: DILTIAZEM HCL 25 MG/5 ML (Bolus) IV PUSH SCH (12:00)
[2017-03-07] MEDS: MAGNESIUM OXIDE 400 MG TAB PO SCH ×2 (12:36→18:06)
--- NOTE | 2017-03-07 13:19 | RADRPT ---
EXAM DATE/TIME: 03/07/2017 12:40 [facility] COMPARISON: CHEST SINGLE AP, March 07, 2017, 6:51. INDICATIONS : Ststus post thoracentesis. Status post central line placement. MEDICAL HISTORY : Chronic obstructive pulmonary disease. Atrial fibrilation. SURGICAL HISTORY : None. ENCOUNTER: Initial ACUITY: 2 days PAIN SCORE: Non-responsive. LOCATION: chest FINDINGS: The endotracheal tube is in good position. There is a right-sided central venous catheter the tip ove rlies the atrial caval junction. There is infiltrate in minimal effusion at the right base. There is a moderate effusion on the left. The effusion on the left is similar in size to previous. There is no pneumothorax The osseous structures are intact. CONCLUSION: 1. No pneumothorax identified. 2. Saphenous catheter and ET tube in good position. 3. Large right pleural effusion. Similar in size previous. Stew Lindsay MD on March 07, 2017 at 13:05 Board Certified Radiologist. This report was verified electronically.
--- NOTE | 2017-03-07 14:55 | OTSOAPIP ---
TIME SESSION COMPLETED: 1340 INTERDISCIPLINARY COMMUNICATION: SPOKE WITH MANUELA LI RECEIVED OCCUPATIONAL THERAPY ORDERS. ATTEMPTED TO SEE PATIENT, HOWEVER PATIENT UNDERWENT CHANGE IN STATUS EARLIER THIS AM REQUIRING INTUBATION. OT WILL SIGN OFF AND WILL REQUIRE RESTART ORDERS ONCE STABLE TO BE SEEN FOR EVALUATION. Therapist: Noemi Forrest, OTR/L Signature on file
--- NOTE | 2017-03-07 15:10 | PD.CONS ---
Consult Service Palliative Care . Consult Requested By Dr. Sunny Silva . Primary Care Physician Venessa Chung MD . Reason for Consultation a. To assist with evaluation and management of symptoms including: dyspnea; encephalopathy b. To assist medical decision maker(s) with: better understanding of current medical conditions; weighing benefits/burdens of medical treatment options; making medical treatment decisions. . HPI History of Present Illness Ms. Steven is a 56-year-old female well known to the palliative care service with a known past medical history of severe aortic stenosis; congestive heart failure; COPD; atrial fibrillation; and probable myelodysplastic syndrome who was sent to the emergency department from [facility] on the morning of 03/06/2017 because of the relatively sudden onset of severe shortness of breath. The patient felt this dyspnea was different than that associated with prior COPD exacerbations. It was associated with a rapid heart rate and palpitations. Along with the shortness of breath, the patient was complaining of pain in her left back, arm, and neck -- this was pain, however, she had been experiencing since undergoing thoracotomy for her pleural effusions in January. Of note, the patient except for a couple of weeks, has been continuously hospitalized since 12/29/16. She was in this hospital initially from 12/29 through 01/24/17. She was discharged to rehabilitation for approximately one week and then was admitted again from 01/31 through 02/25/17. She was discharged back to her rehabilitation facility from 02/25 until this admission on 03/06/17. During recent hospitalizations the patient has been evaluated by hematology oncology for low blood counts. A bone marrow biopsy from 02/13/17 showed a hypocellular bone marrow with trilineage hypoplasia which oncology felt was probably most consistent with an evolving myelodysplastic syndrome. The patient had been seen by cardiothoracic surgery and had undergone left thorascopic exploration and left thoracotomy for decortication and evacuation of a complex, loculated, effusion and recurrence of pleural effusion. The patient was also evaluated for her severe aortic stenosis. She was not considered to be a candidate for open aortic valve replacement. She was only considered to be a candidate for transcatheter aortic valve replacement if she were able to significantly recover from her debilitating illnesses. This has not happened. The patient has been suffering from at least moderate level COPD for approximately 5 years. The patient reported that she had been recently diagnosed with pneumonia while at her rehabilitation facility and was started on antibiotics. In the emergency room on 03/06/17 initial vital signs showed: Temperature 98.8 ; pulse 122; respiratory rate 22; blood pressure 143/86; pulse oximetry 100% on O2 via nasal cannula at 2 L a minute. Examination by the emergency frozen food department manager noted the following: Patient is well-developed and well-nourished. Heart rate was regular. There is no accessory muscle use. Mild expiratory wheezes were noted bilaterally but no rhonchi. Abdomen was benign. There was no edema. Initial diagnostic testing revealed the following: * CBC showed a CBC 6.8; hemoglobin 7.8; platelet count 193 * Coagulation profile showed PT 13.5; INR 1.3; PTT 37.5 * Chemistry panel showed sodium 137; potassium 3.8; chloride 101; CO2 30.2; anion gap 6; BUN 11; creatinine 0.28; glucose 157 * TSH was 2.02; digoxin level was 0.6 * EKG revealed atrial fibrillation. * Chest x-ray showed stable large loculated left pleural effusion with associated presumed compressive atelectasis. There was also a slightly progressed small right pleural effusion with associated right lower lobe airspace disease. Cardiomegaly was also present. the patient was given albuterol nebulizers in the field twice and then DuoNeb treatment 3 times in the emergency department with some improvement. In the emergency department she was started on a Cardizem drip and IV digoxin. She was given intravenous furosemide. The patient was admitted to the residency service. Pulmonology and cardiology were consulted and have already seen the patient. At approximately 0625 this morning, a "CODE BLUE" was called regarding this patient. The medical team found her bradycardic and unresponsive. The patient was intubated and placed on mechanical ventilation and transferred to the cardiac intensive care unit. Stat chest x-ray at that time showed left pleural effusion and slightly decreased right pleural effusion. Patient was in atrial fibrillation with rapid ventricular rate. Further imaging today revealed the following: * CT angiogram of the neck showed an aneurysmal dilatation of the tubular portion of the ascending aorta with maximal dimension 4.6 cm. * Head CTA was negative * CT angiogram of the chest showed dense consolidation of the right lower lobe not present previously and characteristic of pneumonia; reduction in size of the left pleural effusion since the prior exam; right pleural effusion and bilateral parenchymal infiltrates. At the time of my visit, patient is sedated with me and has lab in the coronary intensive care unit. She is under a warmer. She does not open her eyes to voice or exam but does withdraw to stimulation. No family is at bedside. . Function/Cognitive Trajectory As noted above, patient has essentially been hospitalized since 12/29/16 with the exception of some time in rehabilitation from 01/24 through 01/31 and from 02/25 through 03/06/17. She has been quite weak through this. . Review of Systems ROS Limitations: Clinical Condition (patient is currently sedated, intubated, mechanically ventilated, and nonverbal. Review of systems taken as best as possible from medical record and available family.) Constitutional: COMPLAINS OF: Fatigue, Weight loss, Generalized weakness, DENIES: Fever, Weight gain, Dizziness Eyes: DENIES: Blurred vision, Eye pain, Vision loss Ears, nose, mouth, throat: DENIES: Hearing loss, Vertigo Respiratory: COMPLAINS OF: Cough, Wheezing, Sputum production, Shortness of breath, DENIES: Apneas, Snoring, Hemoptysis Cardiovascular: COMPLAINS OF: Palpitations, Dyspnea on Exertion, DENIES: Chest pain, Syncope Gastrointestinal: DENIES: Constipation, Diarrhea, Nausea, Vomiting Musculoskeletal: COMPLAINS OF: Back pain, DENIES: Neck pain Hematologic/Lymphatics: COMPLAINS OF: Bruising, History of transfusions Neurologic: DENIES: Headache, Paresthesias, Seizures Psychiatric: DENIES: Anxiety, Depression Past Family Social History Coded Allergies: No Known Allergies (Verified Allergy, Unknown, 03/06/17) Past Medical History * Aortic stenosis, CHF * Pleural effusions * Myelodsyplastic syndrome (early) -- bone marrow bx * Recent atrial fibrillation, RVR * COPD for at least 5 years, moderately severe * Depression * Chronic orthopedic foot discomfort . Past Surgical History * Left thoracoscopic exploration 01/11/17 * Bilateral chest tubes January 2017 . Reported Medications Prehospital medications included the following: Magnesium Oxide 400 Mg Tab 400 Mg PO Q12HR Furosemide 20 Mg Tab 20 Mg PO BID@ Potassium Chloride ER (Potassium Chloride) 10 Meq Cap 20 Meq PO TID Oxycodone-Acetaminophen 10-325 (Oxycodone HCl/Acetaminophen) 10 Mg-325 Mg Tablet 1 Tab PO Q6H PRN for back pain Diltiazem CD 24 HR 120 Mg Caper 120 Mg PO DAILY Digoxin 0.125 Mg Tab 0.125 Mg PO DAILY Coumadin (Warfarin) 4 Mg Tab 4 Mg PO DAILY@1600 Ventolin Hfa 18 GM Inh (Albuterol Sulfate) 90 Mcg/Act Aer 2 Puff INH Q4-6H PRN Spiriva Handihaler (Tiotropium Inh) 18 Mcg Cap 18 Mcg INH DAILY1 capsule = 18 mcg Ferosul (Ferrous Sulfate) 325 Mg (65 Mg Iron) Tablet 325 Mg PO BID Flomax (Tamsulosin HCl) 0.4 Mg Cap 0.4 Mg PO DAILY Urecholine (Bethanechol Chloride) 25 Mg Tab 25 Mg PO Q8H Tylenol (Acetaminophen) 325 Mg Tab 325 Mg PO Q4HR PRN . Current Medications Medications (Trade) Dose Ordered Sig/Armin Route Start Time Stop Time Status Last Admin (Lanoxin Inj) 0.125 mg DAILY IV PUSH 03/06/17 09:00 03/07/17 10:49 Diltiazem HCl 125 mg/Sodium Chloride 125 ml @ 5 mls/hr TITRATE PRN IV 03/06/17 08:45 03/07/17 11:35 (NS Flush) 2 ml BID IV FLUSH 03/06/17 21:00 03/06/17 21:00 (NS Flush) 2 ml UNSCH PRN IV FLUSH 03/06/17 10:00 (Albuterol Neb) 2.5 mg Q2HR NEB PRN INH 03/06/17 10:00 03/07/17 05:15 Ceftriaxone Sodium 1000 mg/ Sodium Chloride 100 ml @ 200 mls/hr Q24H IV 03/06/17 11:00 03/07/17 10:46 (Zithromax) 500 mg Q24H PO 03/06/17 11:00 03/07/17 10:47 (Urecholine) 25 mg Q8H PO 03/06/17 11:00 03/07/17 12:36 (Ferrous Sulfate) 325 mg BID PO 03/06/17 21:00 03/07/17 10:47 (Mag-Ox) 400 mg DAILY@1100,1900 PO 03/06/17 19:00 03/07/17 12:36 (Percocet 10-325 Mg) 1 tab Q6H PRN PO 03/06/17 10:00 03/06/17 15:31 (Flomax) 0.4 mg DAILY PO 03/07/17 09:00 03/07/17 10:47 (Spiriva Inh) 18 mcg DAILY INH 03/07/17 09:00 Future Hold (Coumadin) 4 mg DAILY@1600 PO 03/06/17 16:00 03/06/17 15:31 (Tylenol) 650 mg Q4H PRN PO 03/06/17 10:15 (Elvie-Colace) 1 tab BID PO 03/06/17 21:00 03/07/17 10:47 (Milk Of Magnesia Liq) 30 ml Q12H PRN PO 03/06/17 10:15 (Senokot) 17.2 mg Q12H PRN PO 03/06/17 10:15 (Dulcolax Supp) 10 mg DAILY PRN RECTAL 03/06/17 10:15 (Lactulose Liq) 30 ml DAILY PRN PO 03/06/17 10:15 (KCl) 20 meq DAILY PO 03/06/17 11:00 03/07/17 10:48 Pharmacy Profile Note 0 ml @ 0 mls/hr UNSCH OTHER 03/06/17 10:45 (Duoneb Neb) 1 ampule QID NEB NEB 03/06/17 16:00 03/07/17 10:35 (Cardizem) 30 mg Q6HR PO 03/06/17 18:00 03/06/17 23:06 Phenylephrine HCl 160 mg/Dextrose 500 ml @ 7.5 mls/hr TITRATE PRN IV 03/07/17 08:15 03/07/17 11:36 (Brethine Inj) 1 mg UNSCH PRN SQ 03/07/17 08:15 (Peridex 0.12% Liq) 15 ml BID@08,20 MT 03/07/17 20:00 Potassium Chloride 100 ml @ 50 mls/hr Q2H PRN IV-CENTRAL 03/07/17 08:15 Potassium Chloride 100 ml @ 50 mls/hr Q2H PRN IV 03/07/17 08:15 (K-Lyte Cl Eff) 50 meq UNSCH PRN PO 03/07/17 08:15 Potassium Chloride 100 ml @ 25 mls/hr UNSCH PRN IV-CENTRAL 03/07/17 08:15 Potassium Chloride 100 ml @ 50 mls/hr Q2H PRN IV 03/07/17 08:15 Magnesium Sulfate 4 gm/Sodium Chloride 100 ml @ 50 mls/hr UNSCH PRN IV 03/07/17 08:15 (Mag-Ox) 800 mg UNSCH PRN PO 03/07/17 08:15 Magnesium Sulfate 2 gm/Sodium Chloride 100 ml @ 50 mls/hr UNSCH PRN IV 03/07/17 08:15 (K-Phos) 2,000 mg Q4H PRN PO 03/07/17 08:15 Sodium Phosphate 30 mmol/Sodium Chloride 250 ml @ 42 mls/hr UNSCH PRN IV 03/07/17 08:15 (K-Phos) 2,000 mg UNSCH PRN PO/TUBE 03/07/17 08:15 Potassium Phosphate 30 mmol/ Sodium Chloride 260 ml @ 42 mls/hr UNSCH PRN IV 03/07/17 08:15 Midazolam HCl 100 ml @ 2 mls/hr TITRATE PRN IV 03/07/17 09:00 03/07/17 11:35 (Cardizem Inj) 25 mg UNSCH IV PUSH 03/07/17 12:00 Family History The patient's father at age 54 of lung cancer, and her mother at age 75 of CHF. Mother also had valvular heart disease.. . Substance Use Tobacco: She smoked 1-2 packs per day until she quit about 6 years ago when she was diagnosed with COPD. Alcohol: Occasional Prescription med abuse: None Illicits: None . Psychosocial History he patient was born and raised in [place], [place], and moved to [place] about 38 years ago. She had been living with her up until her hospitalization of 12/29/16 She has been 14 years, and she has one 30-year-old daughter that lives locally. 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 . Spiritual/Cultural Factors Patient considers herself to be "spiritual", but is not a member of any carlos community. Has not wanted optical scientist visits in the past. . Living Will: Never completed Health Care Surrogate: Never completed Durable Power of Timers Inspector: Never completed Date completed: Not aware of any written advance directive. . Health Care Surrogate(s): Not aware of any written designation of health care surrogate. . Documented care wishes: No known written documentation of health care preferences/wishes. . Today's verbally stated goals: Patient is unable to verbally stated her own goals due to her clinical condition. . Family/friends goals: Unable to contact family today. . Ethical and Legal Issues Patient is incapacitated to make her own medical decisions. It is unclear if she will be able to regain capacity to do so. During periods of incapacity, without any written designation of health care surrogate, proxy decision-making would fall to her spouse. . Physical Exam Vital Signs Date Time Temp Pulse Resp B/P (MAP) Pulse Ox O2 Delivery O2 Flow Rate FiO2 03/07/17 11:36 95 100/45 03/07/17 11:35 95 103/44 03/07/17 11:00 40 03/07/17 11:00 106 03/07/17 11:00 94.8 111 18 103/67 (79) 99 101/48 (65) 03/07/17 10:39 100 40 03/07/17 09:34 97 100 03/07/17 08:50 99 60 03/07/17 07:00 93.8 136 15 115/86 (96) 98 119/59 (79) 03/07/17 07:00 114 03/07/17 07:00 60 03/07/17 06:46 99 100 03/07/17 06:30 95 100 03/07/17 06:00 82 03/07/17 05:00 87 03/07/17 04:00 98.7 97 18 129/73 (91) 98 03/07/17 04:00 89 03/07/17 03:00 88 03/07/17 02:00 80 03/07/17 01:15 62 03/07/17 01:00 84 03/07/17 00:00 86 03/06/17 23:56 98.0 89 18 114/66 (82) 98 03/06/17 23:22 88 114/66 03/06/17 23:00 90 03/06/17 22:00 96 03/06/17 21:00 84 03/06/17 20:00 86 03/06/17 20:00 97.9 86 18 115/72 (86) 98 03/06/17 19:15 98 Nasal Cannula 3.00 03/06/17 19:00 90 03/06/17 18:20 97 03/06/17 17:15 78 03/06/17 16:24 18 03/06/17 16:00 88 03/06/17 15:45 97 03/06/17 15:37 100 Nasal Cannula 3.00 . 03/07/17 03/07/17 03/08/17 15:00 23:00 07:00 Intake Total 400 ml Output Total 1475 ml Balance -1075 ml IV Total 100 ml Tube Irrigant 300 ml Output Urine Total 1225 ml Gastric Drainage Total 250 ml # Bowel Movements 0 . Exam CONSTITUTIONAL/GENERAL: This is an adequately nourished patient, pale, sedated, intermittently shivering, mechanically ventilated in a coronary ICU bed. TUBES/LINES/DRAINS: Arterial line right upper extremity; right in internal jugular central line; peripheral IVs; Cabrera catheter; SCDs; warmer blanket; orotracheal tube; orogastric tube. SKIN: No jaundice. Ecchymoses on upper extremities and across chest. No wounds seen anteriorly. Skin temperature warm--under warming blanket. Not diaphoretic. HEAD: Atraumatic. Normocephalic. EYES: Pupils equal, fully dilated, and and minimally reactive. Unable to evaluate extraocular motions. . No scleral icterus. No injection or drainage. Fundi not examined. ENT: Unable to evaluate hearing. Nose without bleeding or purulent drainage. Throat without visible erythema, exudates, masses, or lesions but challenging to evaluate due to intubations. NECK: Trachea midline. . No palpable thyroid enlargement or nodularity. CARDIOVASCULAR: Irregular rate and rhythm without gallops, or rubs. 3/6 systolic murmur heard at right sternal border. No JVD. Peripheral pulses symmetric but faint RESPIRATORY/CHEST: Symmetric, unlabored respirations. Breath sounds equal bilaterally but greatly diminished at both bases. No wheezes, rales, or rhonchi. GASTROINTESTINAL: Abdomen soft, non-tender, nondistended. No hepato-splenomegaly , or palpable masses. No guarding. Bowel sounds present. GENITOURINARY: Without palpable bladder distension. Cabrera catheter in place. MUSCULOSKELETAL: Extremities without clubbing, cyanosis, or edema. No joint tenderness or effusion noted. No calf tenderness. No mottling or clubbing. LYMPHATICS: No palpable cervical or supraclavicular adenopathy. NEUROLOGICAL: Sedated. Unable to follow commands. Moves all extremities . PSYCHIATRIC: Unable to assess due to level of responsiveness. . Diagnostic Tests Laboratory Laboratory Tests Test 03/06/17 05:15 03/06/17 13:30 03/06/17 19:52 03/07/17 08:03 White Blood Count 6.8 TH/MM3 (4.0-11.0) Red Blood Count 2.26 MIL/MM3 (4.00-5.30) Hemoglobin 7.8 GM/DL (11.6-15.3) Hematocrit 23.3 % (35.0-46.0) Mean Corpuscular Volume 102.8 FL (80.0-100.0) Mean Corpuscular Hemoglobin 34.4 PG (27.0-34.0) Mean Corpuscular Hemoglobin Concent 33.4 % (32.0-36.0) Red Cell Distribution Width 21.2 % (11.6-17.2) Platelet Count 193 TH/MM3 (150-450) Mean Platelet Volume 9.2 FL (7.0-11.0) Neutrophils (%) (Auto) 72.6 % (16.0-70.0) Lymphocytes (%) (Auto) 12.4 % (9.0-44.0) Monocytes (%) (Auto) 14.1 % (0.0-8.0) Eosinophils (%) (Auto) 0.4 % (0.0-4.0) Basophils (%) (Auto) 0.5 % (0.0-2.0) Neutrophils # (Auto) 4.9 TH/MM3 (1.8-7.7) Lymphocytes # (Auto) 0.8 TH/MM3 (1.0-4.8) Monocytes # (Auto) 1.0 TH/MM3 (0-0.9) Eosinophils # (Auto) 0.0 TH/MM3 (0-0.4) Basophils # (Auto) 0.0 TH/MM3 (0-0.2) CBC Comment DIFF FINAL Differential Comment Blood Smear Pathologist Review Reticulocyte Count 4.1 % (0.4-3.0) Absolute Reticulocyte Count 94.1 MIL/L (20.0-150.0) Prothrombin Time 13.5 SEC (9.8-11.6) Prothromb Time International Ratio 1.3 RATIO Activated Partial Thromboplast Time 37.5 SEC (24.3-30.1) Blood Urea Nitrogen 11 MG/DL (7-18) Creatinine 0.28 MG/DL (0.50-1.00) Random Glucose 157 MG/DL (74-106) Calcium Level 8.2 MG/DL (8.5-10.1) Sodium Level 137 MEQ/L (136-145) Potassium Level 3.8 MEQ/L (3.5-5.1) Chloride Level 101 MEQ/L (98-107) Carbon Dioxide Level 30.2 MEQ/L (21.0-32.0) Anion Gap 6 MEQ/L (5-15) Estimat Glomerular Filtration Rate 249 ML/MIN (>89) Total Bilirubin 0.3 MG/DL (0.2-1.0) Direct Bilirubin 0.1 MG/DL (0.0-0.2) Indirect Bilirubin 0.2 MG/DL (0.0-0.8) Aspartate Amino Transf (AST/SGOT) 24 U/L (15-37) Alanine Aminotransferase (ALT/SGPT) 27 U/L (10-53) Alkaline Phosphatase 240 U/L (45-117) Troponin I 0.05 NG/ML (0.02-0.05) 0.07 NG/ML (0.02-0.05) 0.06 NG/ML (0.02-0.05) B-Type Natriuretic Peptide 388 PG/ML (0-100) Total Protein 5.8 GM/DL (6.4-8.2) Albumin 2.0 GM/DL (3.4-5.0) Thyroid Stimulating Hormone 3rd Gen 2.020 uIU/ML (0.358-3.740) Digoxin Level 0.6 NG/ML (0.8-2.0) Vitamin B12 Level 254 PG/ML (193-986) Folate 3.5 NG/ML (3.1-17.5) Pleural Fluid WBC 94651 /MM3 (0-10) Pleural Fluid RBC 2950 /MM3 (0-0) Pleural Fluid Neutrophils 90 % Pleural Fluid Lymphocytes 5 % Pleural Fluid Monocytes 1 % Pleural Fluid Histiocytes 4 % Pleural Fluid Comment Pleural Fluid Total Protein 2.4 GM/DL Pleural Fluid Albumin 0.8 G/DL Pleural Fluid LDH 5008 U/L Pleural Fluid Glucose 68 MG/DL Test 1/2/18 08:20 White Blood Count 9.7 TH/MM3 (4.0-11.0) Red Blood Count 2.24 MIL/MM3 (4.00-5.30) Hemoglobin 7.6 GM/DL (11.6-15.3) Hematocrit 22.5 % (35.0-46.0) Mean Corpuscular Volume 100.7 FL (80.0-100.0) Mean Corpuscular Hemoglobin 33.8 PG (27.0-34.0) Mean Corpuscular Hemoglobin Concent 33.6 % (32.0-36.0) Red Cell Distribution Width 20.9 % (11.6-17.2) Platelet Count 242 TH/MM3 (150-450) Mean Platelet Volume 8.2 FL (7.0-11.0) Neutrophils (%) (Auto) 88.2 % (16.0-70.0) Lymphocytes (%) (Auto) 3.7 % (9.0-44.0) Monocytes (%) (Auto) 7.9 % (0.0-8.0) Eosinophils (%) (Auto) 0.0 % (0.0-4.0) Basophils (%) (Auto) 0.2 % (0.0-2.0) Neutrophils # (Auto) 8.6 TH/MM3 (1.8-7.7) Lymphocytes # (Auto) 0.4 TH/MM3 (1.0-4.8) Monocytes # (Auto) 0.8 TH/MM3 (0-0.9) Eosinophils # (Auto) 0.0 TH/MM3 (0-0.4) Basophils # (Auto) 0.0 TH/MM3 (0-0.2) CBC Comment DIFF FINAL Differential Comment Prothrombin Time 16.6 SEC (9.8-11.6) Prothromb Time International Ratio 1.6 RATIO Activated Partial Thromboplast Time 36.6 SEC (24.3-30.1) Fibrinogen 458 mg/dL (227-377) Blood Urea Nitrogen 17 MG/DL (7-18) Creatinine 0.23 MG/DL (0.50-1.00) Random Glucose 208 MG/DL (74-106) Total Protein 5.7 GM/DL (6.4-8.2) Albumin 2.1 GM/DL (3.4-5.0) Calcium Level 8.6 MG/DL (8.5-10.1) Alkaline Phosphatase 188 U/L (45-117) Aspartate Amino Transf (AST/SGOT) 11 U/L (15-37) Alanine Aminotransferase (ALT/SGPT) 19 U/L (10-53) Total Bilirubin 0.3 MG/DL (0.2-1.0) Sodium Level 135 MEQ/L (136-145) Potassium Level 3.6 MEQ/L (3.5-5.1) Chloride Level 98 MEQ/L (98-107) Carbon Dioxide Level 29.1 MEQ/L (21.0-32.0) Anion Gap 8 MEQ/L (5-15) Estimat Glomerular Filtration Rate 313 ML/MIN (>89) Lactic Acid Level 0.6 mmol/L (0.4-2.0) Ammonia 15 MCMOL/L (11-32) . Result Diagram: 03/07/1781903/07/17819 Microbiology Microbiology Date/Time Source Procedure Growth Status 03/07/17 08:03 Fluid Pleural Fluid Gram Stain Pending Received 03/07/17 08:03 Fluid Pleural Fluid Body Fluid Culture Pending Received . Imaging Last Impressions Neck CTA 03/07/17 0000 Signed Impressions: Service Date/Time: Tuesday, March 07, 2017 09:49 - CONCLUSION: 1. Aneurysmal dilation of the tubular portion of the ascending aorta with a maximum dimension of 4.6 cm. 2. Atherosclerotic plaquing at the carotid bifurcations. No hemodynamically significant stenosis identified. Stew Lindsay MD Head CTA 03/07/17 0000 Signed Impressions: Service Date/Time: Tuesday, March 07, 2017 09:49 - CONCLUSION: Negative examination. Stew Lindsay MD Head CT 03/07/17 0000 Signed Impressions: Service Date/Time: Tuesday, March 07, 2017 09:43 - CONCLUSION: No evidence of acute intracranial pathology. Chronic ischemic changes as above. Sterling Wolfe MD Chest X-Ray 03/07/17 0000 Signed Impressions: Service Date/Time: Tuesday, March 07, 2017 12:40 - CONCLUSION: 1. No pneumothorax identified. 2. Saphenous catheter and ET tube in good position. 3. Large right pleural effusion. Similar in size previous. Stew Lindsay MD CT Angiography 03/07/17 0000 Signed Impressions: Service Date/Time: Tuesday, March 07, 2017 09:56 - CONCLUSION: 1. Dense consolidation right lower lobe not present previously characteristic of pneumonia. 2. Reduction in size of the left pleural effusion since the prior exam which has gas bubbles within it probably from chest tube insertion previously. 3. Right pleural effusion and bilateral parenchymal infiltrates also seen in addition to small right pleural effusion. Dyllan Sin MD . Procedures * Intubation/mechanical ventilation * Arterial line placement right upper extremity * Internal jugular central venous catheter placement . Patient/Family Conference Present at Family Conference: Unable to contact family today. . Issues Discussed: . Assessment and Plan Disease Oriented Problem List: (1) Acute hypoxemic respiratory failure (2) Aortic stenosis (3) CHF (congestive heart failure) (4) Elevated troponin (5) Pleural effusion (6) Myelodysplasia (myelodysplastic syndrome) (7) Hypoalbuminemia (8) COPD (chronic obstructive pulmonary disease) (9) Atrial fibrillation with RVR Symptom Scale: (1) Pain 0-10 Scale: Unable to quantify Comment: Patient is currently sedated and unable to answer questions. Possible sources of pain include prolonged bedbound status; vascular access catheters; orotracheal intubation; orogastric intubation; Cabrera catheter; restraints; SCDs. . (2) dyspnea 0-10 Scale: Unable to quantify Comment: Dyspnea is multifactorial and likely due to a combination of valvular heart disease, congestive heart failure, COPD, and anemia. Dyspnea is currently managed by mechanical ventilation. Patient is also on midazolam. . (3) Encephalopathy 0-10 Scale: Unable to quantify (patient is sedated with Versed.) Comment: Patient is currently sedated with midazolam . Unclear if she is going to be able to wake up when sedation is withdrawn. . Pertinent Non-Medical Issues Psychosocial: Patient had been living with her prior to her hospitalization at the end of December. Since then she has been either in the hospital or retirement facility. Also has an adult daughter who lives locally. Spiritual: Does not belong to any local carlos community. Considers herself to be spiritual. Has declined optical scientist visits in the past. Legal: In the past, there've been references to an advance directive. We have never seen such a document. Patient is currently incapacitated. Patient's would be the proxy health care decision-maker. Ethical issues impacting care: No known ethical issues at this time. . Important Contacts * Feliberto Steven (spouse and proxy health care decision-maker) * . Prognosis Patient has severe aortic stenosis with underlying COPD and probable early myelodyspastic syndrome. She was hoping to rehab and get stronger to the point where she would be a candidate for TAVR. Unfortunatley, it does not appear that she will be able to achieve those goals. She has essentially been hospitalized continuously since 12/29 with the exception of two brief SNF stay (01/24-01/31/17 and 02/25/17 - 03/06/17). She is now on life support in intensive care. In spite of her relatively young age, even if she survives this hospitalization , life expectancy is probably in the order of weeks to months. . Code Status: Full Code Plan == FULL CODE -- CODE STATUS will be readdressed when we have a chance to meet with the family in person. == Decision making: Patient is currently incapacitated to make her own health care decisions. It is unclear if she will ever regain capacity to do so. While incapacitated, as we do not have any written designation of health care surrogate, the patient's spouse will be serving as health care proxy. == Goals of medical treatment: During previous palliative care visits, the patient has had aggressive goals. Given that the patient is now back on life support and has not been able on 2 different occasions to get stronger and rehabilitation, her chances for improving to the point of being a candidate for valve surgery very small. Awaiting chance to meet with family to discuss current status and goals going forward. == Symptoms ( symptoms are described above) * Pain: Sources of pain noted above. Should patient show signs of pain probably intravenous fentanyl was the best option at this time. Anticipate it will be challenging to keep this patient comfortable while also minimizing sedation to allow for weaning from ventilator. * Dyspnea: Multiple causes of dyspnea noted above. We'll need to watch for fluid overload. Dyspnea management primarily through ventilator support at this point in time. Patient currently on intravenous midazolam which will help any sense of air hunger. No further recommendations at this time. * Encephalopathy: We will not know until we are able to down titrate sedation whether or not patient remains cognitively intact. == Will try to arrange in person family meeting as soon as possible to review goals == In my clinical opinion patient would be eligible for hospice services at such time that goals become primarily comfort oriented. == Palliative care will continue to follow to assist with symptom management and to further clarify goals of medical treatment as the clinical course evolves. .. Thank you for the opportunity to participate in the care of Ms. Steven. . Collaborating MD Comments . Attestation To help prompt me to consider important information that might be impacting today's encounter and assessment, information from prior notes written by myself or my colleagues may have been "brought forward" into today's note. My signature on this note, however, is an attestation that I personally performed the exam, history, and/or decision-making noted today, and, unless otherwise indicated, the interactions with patient, family, and staff as well as the review of records all occurred today. I also attest that the listed assessment and stated plan reflect my best clinical judgment today based on the combination of historical information, prior notes, and today's exam/ interactions. When time spent is documented, it refers only to time spent today by the signer, or if indicated, combined time spent today by collaborating physician/nurse practitioner. . Andrew Sharif MD Mar 07, 2017 15:10
[2017-03-07] MEDS: WARFARIN SOD 4 MG TAB PO SCH (17:12)
--- NOTE | 2017-03-07 17:36 | EKG ---
Date Performed: 03/06/2017 Time Performed: 10:34:01 PTAGE: 56 years EKG: ATRIAL FIBRILLATION WITH RAPID VENTRICULAR RESPONSE WITH ABERRANT CONDUCTION OR VENTRICULAR PREMATURE COMPLEXES NONSPECIFIC ST & T-WAVE ABNORMALITY ABNORMAL RHYTHM ECG INTERPRETATION BASED ON A DEFAULT AGE OF 40 YEARS PREVIOUS TRACING : 03/06/2017 02.50 Compared to prior tracing no significant change DOCTOR: Andrea Cintron Interpretating Date/Time 03/07/2017 17:34:21
--- NOTE | 2017-03-07 17:38 | PD.PROCEDR ---
Procedure Note Procedure Procedure: Arterial Line Placement Right brachial arterial line Diagnosis: Cardiogenic shock Indications: And need for beat to beat hemodynamic monitoring Consent: Emergent Description of the Procedure: The right arm was prepped and draped sterilely. 1% lidocaine was used for local anesthesia. The pulse was located and a needle was advanced into the artery. A 20 gauge, 12 cm catheter was advanced into the artery using a modified Seldinger technique. The catheter was sutured to the skin and a sterile dressing was applied. The catheter was connected to a pressure transducer and an arterial waveform was noted. There were no immediate complications noted. There was minimal EBL. I personally performed the procedure. Amado Silva MD Mar 07, 2017 17:38
--- NOTE | 2017-03-07 17:38 | PD.PROCEDR ---
Procedure Note Procedure Endotracheal Intubation Diagnosis: Respiratory arrest Indications: Hypoxic respiratory failure Consent: Emergent Anesthesia: Versed 5 mg IV, Rocuronium 50 mg IV Description of the Procedure: The patient was positioned in the sniffing position. Pre-oxygenation was performed using a [id number]. Anesthesia was induced via rapid sequence. A Koroma #2 was used for laryngoscopy and a Grade 1 view was obtained. A 8. 0 cuffed endotracheal tube was inserted atraumatically through the vocal cords. Confirmation of correct endotracheal tube placement was made by equal and bilateral breath sounds and colorimetric CO2 detection. The endotracheal tube was secured at 22 cm at the teeth. There were no immediate complications noted. The patient remained hemodynamically stable throughout the procedure. A chest x-ray has been ordered. I personally performed the procedure. Amado Silva MD Mar 07, 2017 17:38
--- NOTE | 2017-03-07 17:39 | PD.PROCEDR ---
Procedure Note Procedure Central Line Procedure Note Right IJ 7 Palauan 20 cm triple lumen catheter Diagnosis: Severe stenosis Indications: For highly potent vasoactive substances Consent: Emergent Anesthesia: None Description of the Procedure: The patient was placed in the supine, mild- Trendelenburg position. The area was prepped and draped sterilely. A 19g needle was inserted under negative pressure aspiration and dark venous blood was obtained. A guidewire was inserted easily without resistance. A small incision was made using a #11 blade. Using a modified Seldinger technique, the dilator and 7 Palauan, 20 cm catheter were advanced over the guidewire without resistance. All ports were aspirated and flushed, and had brisk blood return. The line was secured at 18cm at the skin using 2-0 silk interrupted sutures. A Biopatch and Transparent sterile dressing were applied. There were no immediate complications noted. There was minimal EBL. The patient tolerated the procedure well. Ultrasound Guidance: Ultrasound guidance was used to identify the right internal jugular vein. The vascular anatomy was normal. The vessel was cannulated under direct, real-time ultrasound visualization. After placement of the guidewire, confirmation of the guidewire in the lumen of the vessel was made using ultrasound visualization, before dilation of the tract. A Chest x-ray has been ordered. I personally performed the procedure. Amado Silva MD Mar 07, 2017 17:39
--- NOTE | 2017-03-07 17:41 | PD.PROCEDR ---
Procedure Note Procedure Diagnostic and therapeutic Thoracentesis Procedure Note Diagnosis: Severe aortic stenosis Indications: Patient with respiratory arrest with increasing left pleural effusion with increasing peak pressures on the ventilator. Need for therapeutic thoracentesis Consent: Emergent Anesthesia: none Description of the Procedure: The patient was placed in the supine position. The arm was abducted above the head and secured. The left lateral chest was prepped and draped sterilely to include the axilla and nipple. 1% Lidcaine was infiltrated subcutaneously and into the tissues down to the periosteum of the rib. The largest pocket of fluid was identified using ultrasound. A small incision was made using a #11 blade. At the mid-axillary line, a 12g needle and angiocath were advanced under negative pressure aspiration superior to the underlying rib until fluid was obtained. The catheter was advanced over the needle easily and without resistance. The catheter was connected to a Vacutainer and fluid was removed. At the conclusion of the procedure, the catheter was removed and a dressing was applied. There were no immediate complications noted. There was minimal EBL. The patient tolerated the procedure well. Findings: Proximally 100 cc of dark brown fluid was removed with sediment and fibrous tissue and it. The fluid had the appearance of old blood products and serous fluid. This fluid was sent for culture, Gram stain, and lites criteria. The patient went emergently for CT pulmonary angiogram, and complications were ruled out using this modality. I personally performed the procedure. Amado Silva MD Mar 07, 2017 17:41
[2017-03-07] MEDS: CHLORHEXIDINE 0.12% (ORAL KIT) 15 ML CUP MT SCH (20:00)
[2017-03-08] VITALS (16 sets, daily range): BP systolic 91–109; BP diastolic 42–76; PULSE 69–103; RESP 16–18; TEMP 99.1–100; O2SAT 99–100
[2017-03-08] MEDS: BETHANECHOL CHL 25 MG TAB PO SCH ×3 (03:00→18:46)
[2017-03-08] MEDS: MIDAZOLAM 100 MG/100 ML INJ 100 ML IV PRN (04:36)
[2017-03-08] MEDS: DILTIAZEM INJ 125 MG in SODIUM CHLORIDE 0.9% INJ 100 ML IV PRN (04:36)
[2017-03-08 05:20] LABS: AUTOMATED NEUTROPHIL # 4.8 TH/MM3 (1.8-7.7); BASOPHIL % 0.6 % (0.0-2.0); LYMPH % 4.4 % (9.0-44.0); LYMPHOCYTE # 0.3 TH/MM3 (1.0-4.8); MEAN CELL VOLUME 98.8 FL (80.0-100.0); MEAN CORPUSCULAR HEMOGLOBIN 33.5 PG (27.0-34.0); MEAN CORPUSCULAR HGB CONC 33.9 % (32.0-36.0); MEAN PLATELET VOLUME 8.2 FL (7.0-11.0); MONO % 12.2 % (0.0-8.0); MONOCYTE # 0.7 TH/MM3 (0-0.9); NEUT % 82.8 % (16.0-70.0); PLATELET COUNT 199 TH/MM3 (150-450); RED BLOOD COUNT 1.93 MIL/MM3 (4.00-5.30); RED CELL DISTRIBUTION WIDTH 21.4 % (11.6-17.2); WHITE BLOOD COUNT 5.8 TH/MM3 (4.0-11.0)
[2017-03-08 05:22] LABS: INTERNATIONAL NORMALIZED RATIO 2.2 RATIO; PROTHROMBIN TIME - PATIENT 22.7 SEC (9.8-11.6)
[2017-03-08 05:41] LABS: ALBUMIN 1.9 GM/DL (3.4-5.0); AST (GOT) 10 U/L (15-37); BICARBONATE 27.7 MEQ/L (21.0-32.0); BLOOD UREA NITROGEN 16 MG/DL (7-18); CHLORIDE 101 MEQ/L (98-107); CREATININE 0.31 MG/DL (0.50-1.00); GLOMERULAR FILTRATION RATE 222 ML/MIN (>89); GLUCOSE,RANDOM 87 MG/DL (74-106); SODIUM (NA) 136 MEQ/L (136-145)
[2017-03-08 05:43] LABS: HEMATOCRIT 19.1 % (35.0-46.0); HEMOGLOBIN 6.5 GM/DL (11.6-15.3)
[2017-03-08 05:45] LABS: ALKALINE PHOSPHATASE 142 U/L (45-117); ALT (GPT) 13 U/L (10-53); TOTAL BILIRUBIN ADULT 0.4 MG/DL (0.2-1.0); TOTAL PROTEIN 5.1 GM/DL (6.4-8.2)
[2017-03-08] MEDS: DILTIAZEM HCL 30 MG TAB PO SCH ×5 (06:00→23:14)
[2017-03-08] MEDS ORDERED: SODIUM CHLOR 0.9% 250 ML INJ 250 ML IV ONE ×2 (06:00→06:30)
[2017-03-08] MEDS: RESP: ALBUTEROL 2.5 MG/IPRATROPIUM 0.5 MG NEB (SCH) NEB ×4 (07:33→20:20)
--- NOTE | 2017-03-08 08:05 | PD.CARD.PN ---
Subjective Subjective Remarks Pertinent bedside. Intubated, sedated. Heart rate controlled overnight on Cardizem gtt. (Demetrio Rm) Objective Medications Current Medications Medications (Trade) Dose Ordered Sig/Armin Route Start Time Stop Time Status Last Admin (Lanoxin Inj) 0.125 mg DAILY IV PUSH 03/06/17 09:00 03/07/17 10:49 Diltiazem HCl 125 mg/Sodium Chloride 125 ml @ 5 mls/hr TITRATE PRN IV 03/06/17 08:45 03/08/17 04:36 (NS Flush) 2 ml BID IV FLUSH 03/06/17 21:00 03/07/17 21:00 (NS Flush) 2 ml UNSCH PRN IV FLUSH 03/06/17 10:00 (Albuterol Neb) 2.5 mg Q2HR NEB PRN INH 03/06/17 10:00 03/07/17 05:15 Ceftriaxone Sodium 1000 mg/ Sodium Chloride 100 ml @ 200 mls/hr Q24H IV 03/06/17 11:00 03/07/17 10:46 (Zithromax) 500 mg Q24H PO 03/06/17 11:00 03/07/17 10:47 (Urecholine) 25 mg Q8H PO 03/06/17 11:00 03/08/17 03:00 (Ferrous Sulfate) 325 mg BID PO 03/06/17 21:00 03/07/17 21:00 (Mag-Ox) 400 mg DAILY@1100,1900 PO 03/06/17 19:00 03/07/17 18:06 (Percocet 10-325 Mg) 1 tab Q6H PRN PO 03/06/17 10:00 03/06/17 15:31 (Flomax) 0.4 mg DAILY PO 03/07/17 09:00 03/07/17 10:47 (Spiriva Inh) 18 mcg DAILY INH 03/07/17 09:00 Future Hold (Coumadin) 4 mg DAILY@1600 PO 03/06/17 16:00 Future Hold 03/07/17 17:12 (Tylenol) 650 mg Q4H PRN PO 03/06/17 10:15 (Elvie-Colace) 1 tab BID PO 03/06/17 21:00 03/07/17 21:00 (Milk Of Magnesia Liq) 30 ml Q12H PRN PO 03/06/17 10:15 (Senokot) 17.2 mg Q12H PRN PO 03/06/17 10:15 (Dulcolax Supp) 10 mg DAILY PRN RECTAL 03/06/17 10:15 (Lactulose Liq) 30 ml DAILY PRN PO 03/06/17 10:15 (KCl) 20 meq DAILY PO 03/06/17 11:00 03/07/17 10:48 Pharmacy Profile Note 0 ml @ 0 mls/hr UNSCH OTHER 03/06/17 10:45 (Duoneb Neb) 1 ampule QID NEB NEB 03/06/17 16:00 03/08/17 07:33 (Cardizem) 30 mg Q6HR PO 03/06/17 18:00 03/06/17 23:06 Phenylephrine HCl 160 mg/Dextrose 500 ml @ 7.5 mls/hr TITRATE PRN IV 03/07/17 08:15 03/07/17 11:36 (Brethine Inj) 1 mg UNSCH PRN SQ 03/07/17 08:15 (Peridex 0.12% Liq) 15 ml BID@08,20 MT 03/07/17 20:00 03/07/17 20:00 Potassium Chloride 100 ml @ 50 mls/hr Q2H PRN IV-CENTRAL 03/07/17 08:15 Potassium Chloride 100 ml @ 50 mls/hr Q2H PRN IV 03/07/17 08:15 (K-Lyte Cl Eff) 50 meq UNSCH PRN PO 03/07/17 08:15 Potassium Chloride 100 ml @ 25 mls/hr UNSCH PRN IV-CENTRAL 03/07/17 08:15 Potassium Chloride 100 ml @ 50 mls/hr Q2H PRN IV 03/07/17 08:15 Magnesium Sulfate 4 gm/Sodium Chloride 100 ml @ 50 mls/hr UNSCH PRN IV 03/07/17 08:15 (Mag-Ox) 800 mg UNSCH PRN PO 03/07/17 08:15 Magnesium Sulfate 2 gm/Sodium Chloride 100 ml @ 50 mls/hr UNSCH PRN IV 03/07/17 08:15 (K-Phos) 2,000 mg Q4H PRN PO 03/07/17 08:15 Sodium Phosphate 30 mmol/Sodium Chloride 250 ml @ 42 mls/hr UNSCH PRN IV 03/07/17 08:15 (K-Phos) 2,000 mg UNSCH PRN PO/TUBE 03/07/17 08:15 Potassium Phosphate 30 mmol/ Sodium Chloride 260 ml @ 42 mls/hr UNSCH PRN IV 03/07/17 08:15 Midazolam HCl 100 ml @ 2 mls/hr TITRATE PRN IV 03/07/17 09:00 03/08/17 04:36 (Cardizem Inj) 25 mg UNSCH IV PUSH 03/07/17 12:00 Sodium Chloride 250 ml @ 15 mls/hr ONCE ONCE IV 03/08/17 06:00 03/08/17 22:39 Sodium Chloride 250 ml @ 15 mls/hr ONCE ONCE IV 03/08/17 06:30 03/08/17 23:09 Vital Signs / I&O Vital Signs Date Time Temp Pulse Resp B/P (MAP) Pulse Ox O2 Delivery O2 Flow Rate FiO2 03/08/17 07:34 100 40 03/08/17 04:36 101 104/70 03/08/17 04:12 100 40 03/08/17 04:00 40 03/08/17 03:00 87 03/08/17 03:00 99.9 87 18 104/70 (81) 100 97/43 (61) 03/08/17 01:10 100 40 03/08/17 00:00 40 03/07/17 23:00 84 03/07/17 23:00 100.2 84 18 101/66 (78) 100 96/42 (60) 03/07/17 22:10 100 40 03/07/17 20:00 40 03/07/17 19:51 100 40 03/07/17 19:00 95 03/07/17 19:00 99.6 95 16 118/67 (84) 100 106/54 (71) 03/07/17 18:31 103 109/54 03/07/17 18:31 103 109/55 03/07/17 16:21 100 40 03/07/17 16:00 40 03/07/17 15:00 99.1 81 18 107/71 (83) 99 107/50 (69) 03/07/17 15:00 96 03/07/17 11:36 95 100/45 03/07/17 11:35 95 103/44 03/07/17 11:00 40 03/07/17 11:00 106 03/07/17 11:00 94.8 111 18 103/67 (79) 99 101/48 (65) 03/07/17 10:39 100 40 03/07/17 09:34 97 100 03/07/17 08:50 99 60 I/O 03/07/17 03/07/17 03/07/17 03/08/17 03/08/17 03/08/17 07:00 15:00 23:00 07:00 15:00 23:00 Intake Total 270 ml 400 ml 315.5 ml Output Total 350 ml 1475 ml 350 ml Balance -80 ml -1075 ml -34.5 ml Intake Oral 240 ml IV Total 30 ml 100 ml 255.5 ml Tube Irrigant 300 ml 60 ml Output Urine Total 350 ml 1225 ml 300 ml Gastric Drainage Total 250 ml 50 ml # Bowel Movements 0 0 Physical Exam GENERAL: Well-developed well-nourished. NECK: No carotid bruits. No JVD. CARDIOVASCULAR: Irregular, controlled rate and irregular rhythm. 3/6 systolic ejection murmur appreciated. RESPIRATORY: Coarse breath sounds, worse in the bases. MUSCULOSKELETAL: No clubbing or cyanosis. Trace lower extremity edema. NEUROLOGICAL: Intubated, sedated. Laboratory Laboratory Tests Test 03/07/17 08:20 03/07/17 20:35 03/08/17 04:55 White Blood Count 9.7 TH/MM3 5.8 TH/MM3 Red Blood Count 2.24 MIL/MM3 1.93 MIL/MM3 Hemoglobin 7.6 GM/DL 6.5 GM/DL Hematocrit 22.5 % 19.1 % Mean Corpuscular Volume 100.7 FL 98.8 FL Mean Corpuscular Hemoglobin 33.8 PG 33.5 PG Mean Corpuscular Hemoglobin Concent 33.6 % 33.9 % Red Cell Distribution Width 20.9 % 21.4 % Platelet Count 242 TH/MM3 199 TH/MM3 Mean Platelet Volume 8.2 FL 8.2 FL Neutrophils (%) (Auto) 88.2 % 82.8 % Lymphocytes (%) (Auto) 3.7 % 4.4 % Monocytes (%) (Auto) 7.9 % 12.2 % Eosinophils (%) (Auto) 0.0 % 0.0 % Basophils (%) (Auto) 0.2 % 0.6 % Neutrophils # (Auto) 8.6 TH/MM3 4.8 TH/MM3 Lymphocytes # (Auto) 0.4 TH/MM3 0.3 TH/MM3 Monocytes # (Auto) 0.8 TH/MM3 0.7 TH/MM3 Eosinophils # (Auto) 0.0 TH/MM3 0.0 TH/MM3 Basophils # (Auto) 0.0 TH/MM3 0.0 TH/MM3 CBC Comment DIFF FINAL AUTO DIFF Differential Comment Prothrombin Time 16.6 SEC 22.7 SEC Prothromb Time International Ratio 1.6 RATIO 2.2 RATIO Activated Partial Thromboplast Time 36.6 SEC Fibrinogen 458 mg/dL Blood Urea Nitrogen 17 MG/DL 16 MG/DL Creatinine 0.23 MG/DL 0.31 MG/DL Random Glucose 208 MG/DL 87 MG/DL Total Protein 5.7 GM/DL 5.1 GM/DL Albumin 2.1 GM/DL 1.9 GM/DL Calcium Level 8.6 MG/DL 8.0 MG/DL Alkaline Phosphatase 188 U/L 142 U/L Aspartate Amino Transf (AST/SGOT) 11 U/L 10 U/L Alanine Aminotransferase (ALT/SGPT) 19 U/L 13 U/L Total Bilirubin 0.3 MG/DL 0.4 MG/DL Sodium Level 135 MEQ/L 136 MEQ/L Potassium Level 3.6 MEQ/L 3.6 MEQ/L Chloride Level 98 MEQ/L 101 MEQ/L Carbon Dioxide Level 29.1 MEQ/L 27.7 MEQ/L Anion Gap 8 MEQ/L 7 MEQ/L Estimat Glomerular Filtration Rate 313 ML/MIN 222 ML/MIN Lactic Acid Level 0.6 mmol/L Ammonia 15 MCMOL/L Nasal Screen MRSA (PCR) MRSA NOT DETECTED Imaging Last Impressions Neck CTA 03/07/17 Signed Impressions: Service Date/Time: Tuesday, March 07, 2017 09:49 - CONCLUSION: 1. Aneurysmal dilation of the tubular portion of the ascending aorta with a maximum dimension of 4.6 cm. 2. Atherosclerotic plaquing at the carotid bifurcations. No hemodynamically significant stenosis identified. Stew Lindsay MD Head CTA 03/07/17 0000 Signed Impressions: Service Date/Time: Tuesday, March 07, 2017 09:49 - CONCLUSION: Negative examination. Stew Lindsay MD Head CT 1/2/18 0000 Signed Impressions: Service Date/Time: Tuesday, March 07, 2017 09:43 - CONCLUSION: No evidence of acute intracranial pathology. Chronic ischemic changes as above. Sterling Wolfe MD Chest X-Ray 03/07/17 0000 Signed Impressions: Service Date/Time: Tuesday, March 07, 2017 12:40 - CONCLUSION: 1. No pneumothorax identified. 2. Saphenous catheter and ET tube in good position. 3. Large right pleural effusion. Similar in size previous. Stew Lindsay MD CT Angiography 03/07/17 0000 Signed Impressions: Service Date/Time: Tuesday, March 07, 2017 09:56 - CONCLUSION: 1. Dense consolidation right lower lobe not present previously characteristic of pneumonia. 2. Reduction in size of the left pleural effusion since the prior exam which has gas bubbles within it probably from chest tube insertion previously. 3. Right pleural effusion and bilateral parenchymal infiltrates also seen in addition to small right pleural effusion. Dyllan Sin MD (Demetrio Rm) Assessment and Plan Problem List: (1) significant aortic stenosis, CHF (2) moderately severe COPD (3) dyspnea (4) Pulmonary HTN ICD Codes: I27.20 - Pulmonary hypertension, unspecified (5) Atrial fibrillation with RVR ICD Codes: I48.91 - Unspecified atrial fibrillation Status: Chronic (6) CHF (congestive heart failure) ICD Codes: I50.9 - Heart failure, unspecified Assessment and Plan 56 yo F with COPD, diastolic CHF, severe aortic stenosis and pancytopenia admitted for acute dyspnea while residing at rehab; found to be in rapid afib. afib: rate controlled on Cardizem gtt. and digoxin. INR 2.2, but worsening anemia today, hold warfarin. aortic stenosis: severe stenosis with moderate regurgitation, preserved ejection fraction. Obviously not a candidate for surgical intervention at this time, we'll reevaluate after patient stabilizes. Diastolic CHF: Probably secondary to valvular disease as above. EF 50-55%. + bilateral effusion L>R, S/P L thoracentesis 03/08. Acute anemia: Hemoglobin trended down to 6.5 today, receiving transfusion currently. Warfarin on hold. Acute respiratory failure: Secondary to pleural effusions and pneumonia. Critical Care medicine on board. Continue antibiotics per primary team. (Demetrio Rm) Assessment and Plan continue supportive care appreciate palliative care aortic valve balloon valvuloplasty would be high risk not currently TAVR or AVR candidate unless meaningful recovery and rehab. (Jamie Goyal MD) Problem Qualifiers (1) CHF (congestive heart failure): Qualified Codes: I50.9 - Heart failure, unspecified Demetrio Rm Mar 08, 2017 08:05 Jamie Goyal MD Mar 08, 2017 11:10
[2017-03-08] MEDS: CHLORHEXIDINE 0.12% (ORAL KIT) 15 ML CUP MT SCH ×2 (08:09→20:01)
[2017-03-08] MEDS: SODIUM CHLORIDE 0.9% FLUSH 10 ML FLUSH IV FLUSH SCH ×2 (08:09→20:01)
[2017-03-08 08:16] LABS: STOMATOCYTES 1+ (NORMAL)
[2017-03-08] MEDS: TAMSULOSIN HCL 0.4 MG CAP PO SCH (09:13)
[2017-03-08] MEDS: FERROUS SULFATE 325 MG (65 MG ELEMENTAL IRON) TAB PO SCH ×2 (09:13→20:00)
[2017-03-08] MEDS: POTASSIUM CHLORIDE 10 MEQ CAP PO SCH (09:13)
[2017-03-08] MEDS: DIGOXIN 0.5 MG/2 ML VIAL IV PUSH SCH (09:13)
[2017-03-08] MEDS: DOCUSATE SODIUM 50 MG/SENNA 8.6 MG TAB PO SCH ×2 (09:13→20:00)
[2017-03-08] MEDS: cefTRIAXone INJ 1,000 MG in SODIUM CHLORIDE 0.9% INJ 100 ML IV SCH (10:36)
[2017-03-08] MEDS: AZITHROMYCIN 250 MG TAB PO SCH (10:36)
[2017-03-08] MEDS: MAGNESIUM OXIDE 400 MG TAB PO SCH ×2 (10:37→18:46)
--- NOTE | 2017-03-08 11:48 | HHI.HCPN ---
Reason for visit a. To assist with evaluation and management of symptoms including: dyspnea; encephalopathy b. To assist medical decision maker(s) with: better understanding of current medical conditions; weighing benefits/burdens of medical treatment options; making medical treatment decisions. . Subjective/Interval History Patient remains intubated, mechanically ventilated, in the cardiac ICU. She is off sedation this AM -- she will open eyes to stimulation but is unable to follow commands. She moves all extremities. Nursing pain levels are listed as 0-2. Tmax 100.2. HR controlled on cardizem drip. BPs 92-107/42-71. Urine out put adequate. Being transfused this AM for Hg of 6.5. No new imaging. . Family/friend interactions Spoke by phone with for approximately 30 minutes. He was so upset after seeing his in the ICU last night that he no longer wants to come in and visit until she is awake and alert. reported that the patient was not able to walk, but was participating with rehab at the [facility]. She had been feeling reasonably well the day prior to hospital admission. We reviewed her medical problems including aortic stenosis, recurrent refractory pleural effusions, pneumonia, myelodysplasis, and COPD. We discussed how it appears she will never get strong enough to be able to under go even transaortic valve surgery. We discussed how she is critically ill and may not survive this hospitalization. We discussed how, if she does survive, we can anticipate more of the same -- going from rehab to hospital and back until she dies. was upset with the prognosis but had asked that I be honest. I attempted to answer all of his questions. Based on our conversation today, he ... 1) Wants to change codes status to Alternate Code -- chest compressions or shock. Intubation and ACLS drugs are OK 2) Otherwise continue all aggressive care. He is hoping she will become well enough again to make her own decisions. . Advance Directives Living Will: Never completed Health Care Surrogate: Never completed Durable Power of Chyron Operator: Never completed Advance Directive Specifics Date completed: Not aware of any written advance directive. . Health Care Surrogate(s): Not aware of any written designation of health care surrogate. . Documented care wishes: No known written documentation of health care preferences/wishes. . Significant change in goals: After discussion with on 03/08/17, he believes 's interests would best be served by changing code status to Alternate Code. . Objective Vital Signs Date Time Temp Pulse Resp B/P (MAP) Pulse Ox O2 Delivery O2 Flow Rate FiO2 03/08/17 10:45 100 40 03/08/17 09:35 100.0 75 16 106/76 100 03/08/17 08:00 40 03/08/17 07:34 100 40 03/08/17 07:00 100.0 93 17 107/68 (81) 100 93/42 (59) 03/08/17 07:00 84 03/08/17 04:36 101 104/70 03/08/17 04:12 100 40 03/08/17 04:00 40 03/08/17 03:00 87 03/08/17 03:00 99.9 87 18 104/70 (81) 100 97/43 (61) 03/08/17 01:10 100 40 03/08/17 00:00 40 03/07/17 23:00 84 03/07/17 23:00 100.2 84 18 101/66 (78) 100 96/42 (60) 03/07/17 22:10 100 40 03/07/17 20:00 40 03/07/17 19:51 100 40 03/07/17 19:00 95 03/07/17 19:00 99.6 95 16 118/67 (84) 100 106/54 (71) 03/07/17 18:31 103 109/54 03/07/17 18:31 103 109/55 03/07/17 16:21 100 40 03/07/17 16:00 40 03/07/17 15:00 99.1 81 18 107/71 (83) 99 107/50 (69) 03/07/17 15:00 96 03/07/17 11:36 95 100/45 03/07/17 11:35 95 103/44 Intake & Output 03/08/17 03/08/17 07:00 19:00 Intake Total 315.5 ml 610 ml Output Total 350 ml Balance -34.5 ml 610 ml IV Total 255.5 ml Packed Cells 400 ml Blood Product IV Normal Saline Flush 210 ml Tube Irrigant 60 ml Output Urine Total 300 ml Gastric Drainage Total 50 ml # Bowel Movements 0 . Physical Exam CONSTITUTIONAL/GENERAL: This is an adequately nourished patient, pale, mechanically ventilated in a coronary ICU bed. She is unable to follow commands , but will intermittently open eyes to stimulation. TUBES/LINES/DRAINS: Arterial line right upper extremity; right in internal jugular central line; peripheral IVs; Cabrera catheter; SCDs; orotracheal tube; orogastric tube. SKIN: No jaundice. Diffuse ecchymoses on upper extremities and across chest. No wounds seen anteriorly. Skin temperature warm. Not diaphoretic. EYES: Pupils equal, dilated and reactive. . Unable to evaluate extraocular motions. . No scleral icterus. No injection or drainage. Fundi not examined. ENT: Unable to evaluate hearing. Nose without bleeding or purulent drainage. Throat without visible erythema, exudates, masses, or lesions but challenging to evaluate due to intubations. NECK: Trachea midline. CARDIOVASCULAR: Irregular rate and rhythm without gallops, or rubs. 3/6 systolic murmur heard at right sternal border. No JVD. RESPIRATORY/CHEST: Symmetric, unlabored respirations. Breath sounds equal bilaterally but greatly diminished at both bases. Scattered ronchi without wheezes. GASTROINTESTINAL: Abdomen soft, non-tender, nondistended. No hepato-splenomegaly , or palpable masses. No guarding. Bowel sounds present. GENITOURINARY: Without palpable bladder distension. Cabrera catheter in place. MUSCULOSKELETAL: Extremities without clubbing, cyanosis. Edema noted in ankles. No mottling. LYMPHATICS: Not examined NEUROLOGICAL: Eyes open intermittently to stimulation. Unable to follow commands. Moves all extremities . PSYCHIATRIC: Unable to assess due to level of responsiveness. . Diagnostic Tests Laboratory Laboratory Tests Test 03/06/17 05:15 03/06/17 13:30 03/06/17 19:52 03/07/17 08:03 White Blood Count 6.8 TH/MM3 (4.0-11.0) Red Blood Count 2.26 MIL/MM3 (4.00-5.30) Hemoglobin 7.8 GM/DL (11.6-15.3) Hematocrit 23.3 % (35.0-46.0) Mean Corpuscular Volume 102.8 FL (80.0-100.0) Mean Corpuscular Hemoglobin 34.4 PG (27.0-34.0) Mean Corpuscular Hemoglobin Concent 33.4 % (32.0-36.0) Red Cell Distribution Width 21.2 % (11.6-17.2) Platelet Count 193 TH/MM3 (150-450) Mean Platelet Volume 9.2 FL (7.0-11.0) Neutrophils (%) (Auto) 72.6 % (16.0-70.0) Lymphocytes (%) (Auto) 12.4 % (9.0-44.0) Monocytes (%) (Auto) 14.1 % (0.0-8.0) Eosinophils (%) (Auto) 0.4 % (0.0-4.0) Basophils (%) (Auto) 0.5 % (0.0-2.0) Neutrophils # (Auto) 4.9 TH/MM3 (1.8-7.7) Lymphocytes # (Auto) 0.8 TH/MM3 (1.0-4.8) Monocytes # (Auto) 1.0 TH/MM3 (0-0.9) Eosinophils # (Auto) 0.0 TH/MM3 (0-0.4) Basophils # (Auto) 0.0 TH/MM3 (0-0.2) CBC Comment DIFF FINAL Differential Comment Blood Smear Pathologist Review Reticulocyte Count 4.1 % (0.4-3.0) Absolute Reticulocyte Count 94.1 MIL/L (20.0-150.0) Prothrombin Time 13.5 SEC (9.8-11.6) Prothromb Time International Ratio 1.3 RATIO Activated Partial Thromboplast Time 37.5 SEC (24.3-30.1) Blood Urea Nitrogen 11 MG/DL (7-18) Creatinine 0.28 MG/DL (0.50-1.00) Random Glucose 157 MG/DL (74-106) Calcium Level 8.2 MG/DL (8.5-10.1) Sodium Level 137 MEQ/L (136-145) Potassium Level 3.8 MEQ/L (3.5-5.1) Chloride Level 101 MEQ/L (98-107) Carbon Dioxide Level 30.2 MEQ/L (21.0-32.0) Anion Gap 6 MEQ/L (5-15) Estimat Glomerular Filtration Rate 249 ML/MIN (>89) Total Bilirubin 0.3 MG/DL (0.2-1.0) Direct Bilirubin 0.1 MG/DL (0.0-0.2) Indirect Bilirubin 0.2 MG/DL (0.0-0.8) Aspartate Amino Transf (AST/SGOT) 24 U/L (15-37) Alanine Aminotransferase (ALT/SGPT) 27 U/L (10-53) Alkaline Phosphatase 240 U/L (45-117) Troponin I 0.05 NG/ML (0.02-0.05) 0.07 NG/ML (0.02-0.05) 0.06 NG/ML (0.02-0.05) B-Type Natriuretic Peptide 388 PG/ML (0-100) Total Protein 5.8 GM/DL (6.4-8.2) Albumin 2.0 GM/DL (3.4-5.0) Thyroid Stimulating Hormone 3rd Gen 2.020 uIU/ML (0.358-3.740) Digoxin Level 0.6 NG/ML (0.8-2.0) Vitamin B12 Level 254 PG/ML (193-986) Folate 3.5 NG/ML (3.1-17.5) Pleural Fluid WBC 67797 /MM3 (0-10) Pleural Fluid RBC 2950 /MM3 (0-0) Pleural Fluid Neutrophils 90 % Pleural Fluid Lymphocytes 5 % Pleural Fluid Monocytes 1 % Pleural Fluid Histiocytes 4 % Pleural Fluid Comment Pleural Fluid Total Protein 2.4 GM/DL Pleural Fluid Albumin 0.8 G/DL Pleural Fluid LDH 5008 U/L Pleural Fluid Glucose 68 MG/DL Test 03/07/17 08:20 03/07/17 20:35 03/08/17 04:55 White Blood Count 9.7 TH/MM3 (4.0-11.0) 5.8 TH/MM3 (4.0-11.0) Red Blood Count 2.24 MIL/MM3 (4.00-5.30) 1.93 MIL/MM3 (4.00-5.30) Hemoglobin 7.6 GM/DL (11.6-15.3) 6.5 GM/DL (11.6-15.3) Hematocrit 22.5 % (35.0-46.0) 19.1 % (35.0-46.0) Mean Corpuscular Volume 100.7 FL (80.0-100.0) 98.8 FL (80.0-100.0) Mean Corpuscular Hemoglobin 33.8 PG (27.0-34.0) 33.5 PG (27.0-34.0) Mean Corpuscular Hemoglobin Concent 33.6 % (32.0-36.0) 33.9 % (32.0-36.0) Red Cell Distribution Width 20.9 % (11.6-17.2) 21.4 % (11.6-17.2) Platelet Count 242 TH/MM3 (150-450) 199 TH/MM3 (150-450) Mean Platelet Volume 8.2 FL (7.0-11.0) 8.2 FL (7.0-11.0) Neutrophils (%) (Auto) 88.2 % (16.0-70.0) 82.8 % (16.0-70.0) Lymphocytes (%) (Auto) 3.7 % (9.0-44.0) 4.4 % (9.0-44.0) Monocytes (%) (Auto) 7.9 % (0.0-8.0) 12.2 % (0.0-8.0) Eosinophils (%) (Auto) 0.0 % (0.0-4.0) 0.0 % (0.0-4.0) Basophils (%) (Auto) 0.2 % (0.0-2.0) 0.6 % (0.0-2.0) Neutrophils # (Auto) 8.6 TH/MM3 (1.8-7.7) 4.8 TH/MM3 (1.8-7.7) Lymphocytes # (Auto) 0.4 TH/MM3 (1.0-4.8) 0.3 TH/MM3 (1.0-4.8) Monocytes # (Auto) 0.8 TH/MM3 (0-0.9) 0.7 TH/MM3 (0-0.9) Eosinophils # (Auto) 0.0 TH/MM3 (0-0.4) 0.0 TH/MM3 (0-0.4) Basophils # (Auto) 0.0 TH/MM3 (0-0.2) 0.0 TH/MM3 (0-0.2) CBC Comment DIFF FINAL AUTO DIFF Differential Comment AUTO DIFF CONFIRMED Prothrombin Time 16.6 SEC (9.8-11.6) 22.7 SEC (9.8-11.6) Prothromb Time International Ratio 1.6 RATIO 2.2 RATIO Activated Partial Thromboplast Time 36.6 SEC (24.3-30.1) Fibrinogen 458 mg/dL (227-377) Blood Urea Nitrogen 17 MG/DL (7-18) 16 MG/DL (7-18) Creatinine 0.23 MG/DL (0.50-1.00) 0.31 MG/DL (0.50-1.00) Random Glucose 208 MG/DL (74-106) 87 MG/DL (74-106) Total Protein 5.7 GM/DL (6.4-8.2) 5.1 GM/DL (6.4-8.2) Albumin 2.1 GM/DL (3.4-5.0) 1.9 GM/DL (3.4-5.0) Calcium Level 8.6 MG/DL (8.5-10.1) 8.0 MG/DL (8.5-10.1) Alkaline Phosphatase 188 U/L (45-117) 142 U/L (45-117) Aspartate Amino Transf (AST/SGOT) 11 U/L (15-37) 10 U/L (15-37) Alanine Aminotransferase (ALT/SGPT) 19 U/L (10-53) 13 U/L (10-53) Total Bilirubin 0.3 MG/DL (0.2-1.0) 0.4 MG/DL (0.2-1.0) Sodium Level 135 MEQ/L (136-145) 136 MEQ/L (136-145) Potassium Level 3.6 MEQ/L (3.5-5.1) 3.6 MEQ/L (3.5-5.1) Chloride Level 98 MEQ/L (98-107) 101 MEQ/L (98-107) Carbon Dioxide Level 29.1 MEQ/L (21.0-32.0) 27.7 MEQ/L (21.0-32.0) Anion Gap 8 MEQ/L (5-15) 7 MEQ/L (5-15) Estimat Glomerular Filtration Rate 313 ML/MIN (>89) 222 ML/MIN (>89) Lactic Acid Level 0.6 mmol/L (0.4-2.0) Ammonia 15 MCMOL/L (11-32) Nasal Screen MRSA (PCR) MRSA NOT DETECTED (NOT Platelet Estimate NORMAL (NORMAL) Platelet Morphology Comment NORMAL (NORMAL) Stomatocytes 1+ (NORMAL) . Result Diagram: 03/08/17 0455 03/08/17 0455 Microbiology Microbiology Date/Time Source Procedure Growth Status 03/07/17 08:03 Fluid Pleural Fluid Gram Stain - Final Resulted 03/07/17 08:03 Fluid Pleural Fluid Body Fluid Culture Pending Resulted . Imaging Last Impressions Neck CTA 03/07/17 0000 Signed Impressions: Service Date/Time: Tuesday, March 07, 2017 09:49 - CONCLUSION: 1. Aneurysmal dilation of the tubular portion of the ascending aorta with a maximum dimension of 4.6 cm. 2. Atherosclerotic plaquing at the carotid bifurcations. No hemodynamically significant stenosis identified. Stew Lindsay MD Head CTA 03/07/17 0000 Signed Impressions: Service Date/Time: Tuesday, March 07, 2017 09:49 - CONCLUSION: Negative examination. Stew Lindsay MD Head CT 03/07/17 0000 Signed Impressions: Service Date/Time: Tuesday, March 07, 2017 09:43 - CONCLUSION: No evidence of acute intracranial pathology. Chronic ischemic changes as above. Sterling Wolfe MD Chest X-Ray 03/07/17 0000 Signed Impressions: Service Date/Time: Tuesday, March 07, 2017 12:40 - CONCLUSION: 1. No pneumothorax identified. 2. Saphenous catheter and ET tube in good position. 3. Large right pleural effusion. Similar in size previous. Stew Lindsay MD CT Angiography 03/07/17 0000 Signed Impressions: Service Date/Time: Tuesday, March 07, 2017 09:56 - CONCLUSION: 1. Dense consolidation right lower lobe not present previously characteristic of pneumonia. 2. Reduction in size of the left pleural effusion since the prior exam which has gas bubbles within it probably from chest tube insertion previously. 3. Right pleural effusion and bilateral parenchymal infiltrates also seen in addition to small right pleural effusion. Dyllan Sin MD . Procedures * Intubation/mechanical ventilation * Arterial line placement right upper extremity * Internal jugular central venous catheter placement * Thoracentesis . Assessment and Plan Disease Oriented Problem List: (1) Acute hypoxemic respiratory failure (2) Aortic stenosis (3) CHF (congestive heart failure) (4) Elevated troponin (5) Pleural effusion (6) Myelodysplasia (myelodysplastic syndrome) (7) Hypoalbuminemia (8) COPD (chronic obstructive pulmonary disease) (9) Atrial fibrillation with RVR Symptom Scale: (1) Pain 0-10 Scale: Unable to quantify Comment: Patient is currently unable to answer questions -- cannot quantify or qualify pain. Possible sources of pain include prolonged bedbound status; vascular access catheters; orotracheal intubation; orogastric intubation; Cabrera catheter; restraints; SCDs. . (2) dyspnea 0-10 Scale: Unable to quantify Comment: Dyspnea is multifactorial and likely due to a combination of valvular heart disease, congestive heart failure, COPD, and anemia. Dyspnea is currently managed by mechanical ventilation. Patient is also on midazolam. . (3) Encephalopathy 0-10 Scale: Unable to quantify (patient is sedated with Versed.) Comment: Patient is now off sedation and still now waking up and still not following commands. . Pertinent Non-Medical Issues Psychosocial: Patient had been living with her prior to her hospitalization at the end of December. Since then she has been either in the hospital or fpc facility. Also has an adult daughter who lives locally. Spiritual: Does not belong to any local [place] community. Considers herself to be spiritual. 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 Legal: In the past, there've been references to an advance directive. We have never seen such a document. Patient is currently incapacitated. Patient's would be the proxy health care decision-maker. Ethical issues impacting care: No known ethical issues at this time. . Important Contacts * Feliberto Steven (spouse and proxy health care decision-maker) -- [phone] . . Prognosis Patient has severe aortic stenosis with underlying COPD, recurrent pleural effusions, and probable early myelodyspastic syndrome. She was hoping to rehab and get stronger to the point where she would be a candidate for TAVR. Unfortunatley, it does not appear that she will be able to achieve those goals. She has essentially been hospitalized continuously since 12/29 with the exception of two brief SNF stay (01/24-01/31/17 and 02/25/17 - 03/06/17). She is now on life support in intensive care. In spite of her relatively young age, even if she survives this hospitalization , life expectancy is probably in the order of weeks to months. . Code Status: Alternative Code (Code status changed to ALTERNATE CODE (no chest compressions; no shock) per conversation Dr. Sharif had with [facility] on 03/08).) Plan == ALTERNATE CODE -- NO SHOCK; NO CHEST COMPRESSIONS. YES INTUBATION; YES CARDIAC DRUGS. Code status was changed to alternate textile finisher per conversation between and Dr. Sharif on 03/08/17. == Decision making: Patient is currently incapacitated to make her own health care decisions. It is unclear if she will ever regain capacity to do so. While incapacitated, as we do not have any written designation of health care surrogate, the patient's spouse will be serving as health care proxy. == Goals of medical treatment: During previous palliative care visits, the patient has had aggressive goals. Given that the patient is now back on life support and has not been able on 2 different occasions to get stronger and rehabilitation, her chances for improving to the point of being a candidate for valve surgery very small. has agreed to Alternate Code status but still desires aggressive care short of resuscitation. == Symptoms ( symptoms are described above) * Pain: Sources of pain noted above. Should patient show signs of pain probably intravenous fentanyl would be the best option at this time. Anticipate it will be challenging to keep this patient comfortable while also minimizing sedation to allow for weaning from ventilator. * Dyspnea: Multiple causes of dyspnea noted above. We'll need to watch for fluid overload. Dyspnea management primarily through ventilator support at this point in time. IV fentanyl and midazolam can be used if needed for apparent air hunger while on vent. No further recommendations at this time. * Encephalopathy: No able to follow commands in spite of being off sedation. == In my clinical opinion patient would be eligible for hospice services at such time that goals become primarily comfort oriented. == Palliative care will continue to follow to assist with symptom management and to further clarify goals of medical treatment as the clinical course evolves. . Time Spent Total Floor Time (mins): 40 (Total time included chart review, patient exam, telphone discussion with , collaboration with primary nurse, and discussion with postpartum rn.) Face to Face Time (mins): 10 >50% Counseling/Coord of Care: Yes Attestation To help prompt me to consider important information that might be impacting today's encounter and assessment, information from prior notes written by myself or my colleagues may have been "brought forward" into today's note. My signature on this note, however, is an attestation that I personally performed the exam, history, and/or decision-making noted today, and, unless otherwise indicated, the interactions with patient, family, and staff as well as the review of records all occurred today. I also attest that the listed assessment and stated plan reflect my best clinical judgment today based on the combination of historical information, prior notes, and today's exam/ interactions. When time spent is documented, it refers only to time spent today by the signer, or if indicated, combined time spent today by collaborating physician/nurse practitioner. . Andrew Sharif MD Mar 08, 2017 11:48
[2017-03-08 12:17] LABS: AMYLASE BODY FLUID 13 U/L; AMYLASE BODY FLUID TYPE PLEURAL
--- NOTE | 2017-03-08 13:08 | HHI.CCPN ---
Subjective Remarks/Hospital Course Hospital Course: This is a 65-year-old female with a history of CHF secondary valvulopathy, COPD , atrial fibrillation, and critical aortic stenosis who was initially admitted with CHF exacerbation yesterday to the floor. Today she had a sudden acute change in condition and had a respiratory arrest for which debra altamirano was called. I immediately arrive at the [facility] where the patient had a pulse, but was not breathing with agonal respirations. She was being bag valve mask ventilated by the respiratory therapist. We assess condition and emergently transported to intensive care unit and she was emergently intubated. At this point she became hypotensive and tachycardic with atrial fibrillation with rapid ventricular response. Given her critical aortic stenosis, phenylephrine infusion was started as well as diltiazem infusion. Emergently placed arterial line, and central line. In addition, the primary family medicine team is at bedside and stated that she had bilateral pleural effusions, left greater than right, but it been chronic and had been drinking before, and they felt that her effusions have increased in size since prior admission. Chest x-ray confirms a moderate sized left pleural effusion. Due to her acute hypoxemia and respiratory arrest, emergent left-sided thoracentesis was performed, however there is a large amount of loculated material and only approximately 100 cc of fluid was able to be removed. Critical-care medicine is consulted to help evaluate and manage her hemodynamic collapse, respiratory arrest. Subjective: 03/08: no clinical improvements. HR controlled. remains on phenylephrine and diltiazem infusions. palliative discussed care again with family: patient is DNR now, but still family presses for ongoing aggressive medical therapy. although right pleural effusion is moderate sized, patient is not currently hypoxic and effusion is likely secondary to volume overload, aortic stenosis. no indication for drainage at this time. Objective Vital Signs Date Time Temp Pulse Resp B/P (MAP) Pulse Ox O2 Delivery O2 Flow Rate FiO2 03/08/17 12:00 40 03/08/17 11:00 99.9 69 16 105/65 (78) 100 99/71 (80) 03/06/17 19:15 Nasal Cannula 3.00 Intake and Output 03/08/17 03/08/17 03/09/17 08:00 16:00 00:00 Intake Total 325.5 ml 600 ml Output Total 350 ml Balance -24.5 ml 600 ml Result Diagram: 03/08/17 0455 03/08/17 0455 Imaging Last Impressions Neck CTA 03/07/17 0000 Signed Impressions: Service Date/Time: Tuesday, March 07, 2017 09:49 - CONCLUSION: 1. Aneurysmal dilation of the tubular portion of the ascending aorta with a maximum dimension of 4.6 cm. 2. Atherosclerotic plaquing at the carotid bifurcations. No hemodynamically significant stenosis identified. Stew Lindsay MD Head CTA 03/07/17 0000 Signed Impressions: Service Date/Time: Tuesday, March 07, 2017 09:49 - CONCLUSION: Negative examination. Stew Lindsay MD Head CT 03/07/17 0000 Signed Impressions: Service Date/Time: Tuesday, March 07, 2017 09:43 - CONCLUSION: No evidence of acute intracranial pathology. Chronic ischemic changes as above. Sterling Wolfe MD Chest X-Ray 03/07/17 0000 Signed Impressions: Service Date/Time: Tuesday, March 07, 2017 12:40 - CONCLUSION: 1. No pneumothorax identified. 2. Saphenous catheter and ET tube in good position. 3. Large right pleural effusion. Similar in size previous. Stew Lindsay MD CT Angiography 03/07/17 0000 Signed Impressions: Service Date/Time: Tuesday, March 07, 2017 09:56 - CONCLUSION: 1. Dense consolidation right lower lobe not present previously characteristic of pneumonia. 2. Reduction in size of the left pleural effusion since the prior exam which has gas bubbles within it probably from chest tube insertion previously. 3. Right pleural effusion and bilateral parenchymal infiltrates also seen in addition to small right pleural effusion. Dyllan Sin MD Objective Remarks gen: frail woman who appears much older than stated age, intubated, sedated, critically ill. heent: perrl. mmm. normocephalic, atraumatic. neck: +jvd. trachea midline. chest: equal chest rise. prvc 40% fio2. cv: normal rate in the 80s, irregularly irregular rhythm. afib by tele. abd: soft, nontender, nondistended. no guarding. extr: 2+ peripheral edema. neuro: RASS -3. withdraws to pain. does not follow commands. A/P Assessment and Plan Assessment: 56yF with end-stage critical aortic stenosis now s/p respiratory arrest. Remains very critically ill. no improvements in 24h. without surgical options for aortic valve replacement, her life expectancy is much less than a year, and given her acute decline, she may not survive this hospitalization. Plan by systems: Neurologic: Acute encephalopathy Frequent neuro checks Avoid long-acting sedating meds Versed for goal RASS -2 CT brain 1/2 negative for acute disease CTA head and neck 1/2 negative for acute disease Respiratory: Acute hypoxic and hypercarbic respiratory failure Respiratory arrest Intubated /2 for respiratory arrest Vent bundle Head of bed at 30 Nebs No weaning of mechanical ventilation until improved hemodynamics Cardiovascular: Cardiogenic shock- persistent. Critical aortic stenosis Atrial fibrillation with rapid ventricular response Continued digoxin 0.125 mg by mouth daily diltiazem drip phenylephrine infusion for goal map > 65 mmhg. pursue forced diuresis despite shock due to volume overload from aortic stenosis. Renal: Acute Kidney Injury- resolved. - bangura for accurate I/Os -- Strict I/Os - lasix 40mg iv q6h - diamox 500mg iv q8h - continuous albumin infusion to prevent intravascular hypovolemia in the setting of aortic stenosis. FEN/GI: Acute protein calorie malnutrition- severe ICU electrolyte protocol daily BMP start tube feeds. Heme/ID: Pancytopenia - secondary to likely MDS no infectious etiology suspected at this time. afebrile. trend daily cbc. does not meet transfusion triggers at this time. Endocrine: Hyperglycemia of critical illness -- SSI Prophylaxis: GI Prophylaxis Pepcid DVT Prophylaxis -- SCDs Subcutaneous heparin Lines: 1/2 right brachial arterial line 1/2 right IJ triple-lumen catheter /2 Bang[place] Dispo: Admit to ICU. Critically ill This patient remains critically ill with one or more organ systems which are or may become a threat to life. I have spent in excess of 33 minutes discontinuously in the care and management of this patient. This time is exclusive of procedures, and includes, but is not limited to, evaluation of the patient, review of the medical record, discussions with family, consultants, nursing staff, or respiratory therapy, and documentation in the medical record. Amado Silva MD Mar 08, 2017 13:08
[2017-03-08] MEDS: BENEPROTEIN POWDER 1 PACK G-TUBE SCH ×2 (13:30→18:00)
[2017-03-08] MEDS: FUROSEMIDE 40 MG/4 ML VIAL IV PUSH SCH ×2 (13:39→20:00)
[2017-03-08] MEDS: ALBUMIN 25% INJ 100 ML IV SCH ×2 (13:39→21:50)
--- NOTE | 2017-03-08 14:50 | HHI.FPPN ---
Subjective Remarks Patient seen and examined at ~0930. Overnight no events. Remains sedated and intubated. Still requiring phenylephrine drip. (Heriberto Mancuso MD) Objective Vitals Vital Signs Date Time Temp Pulse Resp B/P (MAP) Pulse Ox O2 Delivery O2 Flow Rate FiO2 03/08/17 12:55 100 40 03/08/17 12:00 40 03/08/17 11:00 99.9 69 16 105/65 (78) 100 99/71 (80) 03/08/17 11:00 85 03/08/17 10:45 100 40 03/08/17 09:36 100.0 80 16 109/50 100 03/08/17 09:35 100.0 75 16 106/76 100 03/08/17 08:00 40 03/08/17 07:34 100 40 03/08/17 07:00 100.0 93 17 107/68 (81) 100 93/42 (59) 03/08/17 07:00 84 03/08/17 04:36 101 104/70 03/08/17 04:12 100 40 03/08/17 04:00 40 03/08/17 03:00 87 03/08/17 03:00 99.9 87 18 104/70 (81) 100 97/43 (61) 03/08/17 01:10 100 40 03/08/17 00:00 40 03/07/17 23:00 84 03/07/17 23:00 100.2 84 18 101/66 (78) 100 96/42 (60) 03/07/17 22:10 100 40 03/07/17 20:00 40 03/07/17 19:51 100 40 03/07/17 19:00 95 03/07/17 19:00 99.6 95 16 118/67 (84) 100 106/54 (71) 03/07/17 18:31 103 109/54 03/07/17 18:31 103 109/55 03/07/17 16:21 100 40 03/07/17 16:00 40 03/07/17 15:00 99.1 81 18 107/71 (83) 99 107/50 (69) 03/07/17 15:00 96 I/O 03/07/1718 03/07/17 03/08/17 03/08/17 03/08/17 07:00 15:00 23:00 07:00 15:00 23:00 Intake Total 270 ml 400 ml 315.5 ml 610 ml Output Total 350 ml 1475 ml 350 ml Balance -80 ml -1075 ml -34.5 ml 610 ml Intake Oral 240 ml IV Total 30 ml 100 ml 255.5 ml Packed Cells 400 ml Blood Product IV Normal Saline Flush 210 ml Tube Irrigant 300 ml 60 ml Output Urine Total 350 ml 1225 ml 300 ml Gastric Drainage Total 250 ml 50 ml # Bowel Movements 0 0 (Heriberto Mancuso MD) Result Diagram: 03/08/175 03/08/17 0455 Imaging Last Impressions Neck CTA 03/07/17 0000 Signed Impressions: Service Date/Time: Tuesday, March 07, 2017 09:49 - CONCLUSION: 1. Aneurysmal dilation of the tubular portion of the ascending aorta with a maximum dimension of 4.6 cm. 2. Atherosclerotic plaquing at the carotid bifurcations. No hemodynamically significant stenosis identified. Stew Lindsay MD Head CTA 03/07/17 0000 Signed Impressions: Service Date/Time: Tuesday, March 07, 2017 09:49 - CONCLUSION: Negative examination. Stew Lindsay MD Head CT 03/07/17 0000 Signed Impressions: Service Date/Time: Tuesday, March 07, 2017 09:43 - CONCLUSION: No evidence of acute intracranial pathology. Chronic ischemic changes as above. Sterling Wolfe MD Chest X-Ray 03/07/17 0000 Signed Impressions: Service Date/Time: Tuesday, March 07, 2017 12:40 - CONCLUSION: 1. No pneumothorax identified. 2. Saphenous catheter and ET tube in good position. 3. Large right pleural effusion. Similar in size previous. Stew Lindsay MD CT Angiography 03/07/17 0000 Signed Impressions: Service Date/Time: Tuesday, March 07, 2017 09:56 - CONCLUSION: 1. Dense consolidation right lower lobe not present previously characteristic of pneumonia. 2. Reduction in size of the left pleural effusion since the prior exam which has gas bubbles within it probably from chest tube insertion previously. 3. Right pleural effusion and bilateral parenchymal infiltrates also seen in addition to small right pleural effusion. Dyllan Sni MD Objective Remarks GEN: Sedated, intubated, critically ill CV: Normal rate, irregularly irregular rhythm, harsh grating systolic murmur heard best at RUSB LUNGS: Coarse breath sounds bilaterally, diminished on L side but overall stable from prior exams ABD: Soft, mildly distended NEURO: Obtunded from sedation. Grimaces to sternal rub. Does not awaken to voice. Procedures 03/07/17 - Thoracentesis, ET intubation, central venous line placement, arterial line placement Medications and IVs Last Impressions Neck CTA 03/07/17 0000 Signed Impressions: Service Date/Time: Tuesday, March 07, 2017 09:49 - CONCLUSION: 1. Aneurysmal dilation of the tubular portion of the ascending aorta with a maximum dimension of 4.6 cm. 2. Atherosclerotic plaquing at the carotid bifurcations. No hemodynamically significant stenosis identified. Stew Lindsay MD Head CTA 03/07/17 0000 Signed Impressions: Service Date/Time: Tuesday, March 07, 2017 09:49 - CONCLUSION: Negative examination. Stew Lindsay MD Head CT 03/07/17 0000 Signed Impressions: Service Date/Time: Tuesday, March 07, 2017 09:43 - CONCLUSION: No evidence of acute intracranial pathology. Chronic ischemic changes as above. Sterling Wolfe MD Chest X-Ray 03/07/17 0000 Signed Impressions: Service Date/Time: Tuesday, March 07, 2017 12:40 - CONCLUSION: 1. No pneumothorax identified. 2. Saphenous catheter and ET tube in good position. 3. Large right pleural effusion. Similar in size previous. Stew Lindsay MD CT Angiography 03/07/17 0000 Signed Impressions: Service Date/Time: Tuesday, March 07, 2017 09:56 - CONCLUSION: 1. Dense consolidation right lower lobe not present previously characteristic of pneumonia. 2. Reduction in size of the left pleural effusion since the prior exam which has gas bubbles within it probably from chest tube insertion previously. 3. Right pleural effusion and bilateral parenchymal infiltrates also seen in addition to small right pleural effusion. Dyllan Sin MD (Heriberto Mancuso MD) A/P Assessment and Plan Mrs. Steven is a 56yo white female with a PMH of COPD, CHF, and atrial fibrillation now with: (Heriberto Mancuso MD) Attending Attestation Patient seen and examined. Case reviewed and discussed with the resident team. Agree with plan of care as discussed with me and documented in the resident note. unfortunately extremely ill with her heart and valvular abnormalities and hemodynamics. (Cecy Hays MD) Problem List: (1) Cardiogenic shock ICD Codes: R57.0 - Cardiogenic shock Status: Acute Plan: Patient entered cardiogenic shock on 03/07/17 Etiology = severe aortic stenosis Echocardiogram 03/06/17 The left ventricular systolic function is low normal with an estimated ejection fraction in the range of 50-55%. Normal left ventricular size. Mild concentric left ventricular hypertrophy. No regional wall motion abnormalities are present. Moderate aortic valve regurgitation. Severe aortic valve stenosis. Aortic valve area is 0.78 cm. Aortic valve mean gradient is 45 mmHg. There is estimated moderate pulmonary hypertension present (range 50-60 mmHg) -Critical care consulted, appreciate assistance -Continued digoxin 0.125 mg by mouth daily -diltiazem drip -phenylephrine infusion for goal map > 65 mmhg. -pursue forced diuresis despite shock due to volume overload from aortic stenosis -Palliative care consulted, appreciate assistance -Family desiring continued aggressive medical management -See below for clarification of code status Had extended discussion with decision maker () at 1440 on 03/08/17. clarified code status: alternative code, ACLS drugs + intubation + chest compressions all okay, but not shock treatment. We discussed that neither CPR nor ACLS drugs nor shock treatment would in any way fix her heart if she were to enter cardiac arrest and that if she did achieve ROSC she would very likely code again and again. states that he wants "everything done that a telegraph equipment maintainer could do" but that shock would just "overstimulate her heart" so he wouldn't want to put her through that. Again reiterated that chest compressions would essentially have the same effect and that with her valve issue it would be like "trying to push all her blood through a pinhole" and would put her through a lot of stress including probable rib fracture. expressed understanding of all points of discussion, but for now is hopeful and wishes code status to be as documented above. He would like to be notified MEG of any cardiac arrest: Phone = [phone], his name is Feliberto Steven (2) Respiratory failure with hypoxia and hypercapnia ICD Codes: J96.91 - Respiratory failure, unspecified with hypoxia; J96.92 - Respiratory failure, unspecified with hypercapnia Plan: Etiology likely combination of cardiogenic shock and pleural effusion in patient with underlying CHF, COPD Valvular disease as noted above -Critical care consulted, appreciate assistance -Continue intubation with mechanical ventilation -Wean vent once more hemodynamically stable (3) Macrocytic anemia ICD Codes: D53.9 - Nutritional anemia, unspecified Plan: Hbg upon admission was 7.8 with MCV of 102.8. Hgb < 7 on 03/08/17 Outpatient work-up including BMB negative (previously had pancytopenia) MDS suspected -Check post-transfusion H/H -Transfuse for Hgb < 8.0 (4) Pleural effusion ICD Codes: J90 - Pleural effusion, not elsewhere classified Status: Chronic Plan: Likely related to valvular heart disease, possibly also due to malignancy given history of pancytopenia, although extensive work-up thus far negative -Consulted [employer] Dr. Chung, appreciate input -Pt had thoracentesis on 03/06/17 -Continue management per [facility] recs as above (5) Atrial fibrillation with RVR ICD Codes: I48.91 - Unspecified atrial fibrillation Status: Chronic Plan: Now rate-controlled -Continue management as above (see "Cardiogenic shock") (6) COPD (chronic obstructive pulmonary disease) ICD Codes: J44.9 - Chronic obstructive pulmonary disease, unspecified Status: Chronic Plan: Patient with history COPD presenting the ED with shortness of breath, which can be due to multiple etiologies. Patient felt better after being given nebs in the ED. Patient has a previous hx of respiratory failure and intubation so will monitor closely. -Manage respiratory failure as above -Duonebs QID, albuterol PRN for SOB/wheeze -Unlikely to be pneumonia (afebrile, no leukocytosis); will D/C antibiotics at this time (7) CHF (congestive heart failure) ICD Codes: I50.9 - Heart failure, unspecified Plan: Patient previously diagnosed with CHF. BNP on admission is 388. Echo findings as above -See above plan (8) Elevated alkaline phosphatase level ICD Codes: R74.8 - Abnormal levels of other serum enzymes Status: Resolved Plan: Alkaline phosphatase elevated at admission at 240. This was also elevated at previous admissions, but not as high. AST, ALT, and bilirubin are WNL. Since this is the case, may be related to bone process. Malignancy vs recent fracture. * Consider fractionating if any doubt about this. pagets disease is a possibility as well but she is so ill now that this can be evaluated later (9) Urinary retention ICD Codes: R33.9 - Retention of urine, unspecified Status: Chronic Plan: * Continue at home medications (10) FEN Status: Acute Plan: Fluids: none for now (aggressively diuresing) Electrolytes: monitor and replete as needed Nutrition: Via tube DVT Prophylaxis: SCDs; on Coumadin, was not therapeutic; holding for now due to anemia GI Prophylaxis: Protonix Fever/Pain management: Tylenol/Continue at home Percocet for back pain CODE STATUS: Alternate code = chest compressions + drugs + intubation. NO shock. sdw Dr. Hays (Heriberto Mancuso MD) Problem Qualifiers (1) Respiratory failure with hypoxia and hypercapnia: Qualified Codes: J96.01 - Acute respiratory failure with hypoxia; J96.02 - Acute respiratory failure with hypercapnia (2) COPD (chronic obstructive pulmonary disease): Qualified Codes: J44.9 - Chronic obstructive pulmonary disease, unspecified (3) CHF (congestive heart failure): Qualified Codes: I50.9 - Heart failure, unspecified Heriberto Mancuso MD Mar 08, 2017 14:50 Cecy Hays MD Mar 11, 2017 15:35
--- NOTE | 2017-03-08 19:06 | HHI.PR ---
Subjective Remarks Intubated for respiratory failure and now on Ventilator support. FIO2 at 50 %. Sedated with versed. CT chest shows bilateral effusions and a RLL Pneumonia. Objective Vital Signs Date Time Temp Pulse Resp B/P (MAP) Pulse Ox O2 Delivery O2 Flow Rate FiO2 03/08/17 16:00 40 03/08/17 15:36 99 40 03/08/17 15:00 93 03/08/17 15:00 99.6 103 17 105/66 (79) 99 91/55 (67) 03/08/17 12:55 100 40 03/08/17 12:00 40 03/08/17 11:00 99.9 69 16 105/65 (78) 100 99/71 (80) 03/08/17 11:00 85 03/08/17 10:45 100 40 03/08/17 09:36 100.0 80 16 109/50 100 03/08/17 09:35 100.0 75 16 106/76 100 03/08/17 08:00 40 03/08/17 07:34 100 40 03/08/17 07:00 100.0 93 17 107/68 (81) 100 93/42 (59) 03/08/17 07:00 84 03/08/17 04:36 101 104/70 03/08/17 04:12 100 40 03/08/17 04:00 40 03/08/17 03:00 87 03/08/17 03:00 99.9 87 18 104/70 (81) 100 97/43 (61) 03/08/17 01:10 100 40 03/08/17 00:00 40 03/07/17 23:00 84 03/07/17 23:00 100.2 84 18 101/66 (78) 100 96/42 (60) 03/07/17 22:10 100 40 03/07/17 20:00 40 03/07/17 19:51 100 40 I/O 03/07/17 03/07/17 03/07/17 03/08/17 03/08/17 03/08/17 07:00 15:00 23:00 07:00 15:00 23:00 Intake Total 270 ml 400 ml 315.5 ml 610 ml 477 ml Output Total 350 ml 1475 ml 350 ml 2300 ml Balance -80 ml -1075 ml -34.5 ml 610 ml -1823 ml Intake Oral 240 ml IV Total 30 ml 100 ml 255.5 ml 308 ml Tube Feeding 79 ml Packed Cells 400 ml Blood Product IV Normal Saline Flush 210 ml Tube Irrigant 300 ml 60 ml 90 ml Output Urine Total 350 ml 1225 ml 300 ml 2300 ml Gastric Drainage Total 250 ml 50 ml 0 ml # Bowel Movements 0 0 0 Result Diagram: 03/08/1745403/08/17454 Objective Remarks This averagely built middle-aged white female is on Vent support HEENT: Head normocephalic. Pupils are reactive. Tongue moist. Nasal mucosa edematous. Throat is clear . NECK: Supple. No bruits or thyroid enlargement or lymphadenopathy. CHEST: Distant breath sounds over the left chest. There were also crackles at both lung bases and wheezes anteriorly. HEART: The heart sounds are irregular, S1 and S2 with a systolic ejection murmur 2/6 at the left sternal border. ABDOMEN: Soft, benign. No masses. EXTREMITIES: Edema 2+ with decreased peripheral pulses. Reflexes 1+ with no gross motor deficits. NEUROLOGIC: sedated RECTAL: Exam is deferred. SKIN: No lesions. Assessment and Plan Assessment and Plan IMPRESSION 1. CHF with acute exacerbation 2. Chronic atrial fibrillation 3. Right basilar infiltrate cannot rule out pneumonia. 4. Severe aortic valve stenosis 5. Acute respiratory failure Plan : 1. Wean FIo2 and keep sat >92. 2. Continue Lasix 40 mg IV q6h 3. Duonebs qid. 4. CXR , CBC,BMP 5. Chest Tube for left effusion and tap Right effusion. 6. Tube feeds at 40 CC 7. Replace Potassium Venessa Chung MD Mar 08, 2017 19:06
[2017-03-09] VITALS (13 sets, daily range): BP systolic 105–129; BP diastolic 50–77; PULSE 90–106; RESP 12–19; TEMP 98.7–100.5; O2SAT 98–100
[2017-03-09] MEDS: BETHANECHOL CHL 25 MG TAB PO SCH ×3 (01:23→17:51)
[2017-03-09] MEDS: FUROSEMIDE 40 MG/4 ML VIAL IV PUSH SCH ×4 (01:23→19:47)
[2017-03-09] MEDS: DILTIAZEM INJ 125 MG in SODIUM CHLORIDE 0.9% INJ 100 ML IV PRN (01:32)
[2017-03-09 03:53] LABS: AUTOMATED NEUTROPHIL # 3.6 TH/MM3 (1.8-7.7); BASOPHIL % 0.1 % (0.0-2.0); EOSINOPHIL % 0.1 % (0.0-4.0); HEMATOCRIT 23.9 % (35.0-46.0); HEMOGLOBIN 8.5 GM/DL (11.6-15.3); LYMPH % 8.9 % (9.0-44.0); LYMPHOCYTE # 0.4 TH/MM3 (1.0-4.8); MEAN CELL VOLUME 97.5 FL (80.0-100.0); MEAN CORPUSCULAR HEMOGLOBIN 34.5 PG (27.0-34.0); MEAN CORPUSCULAR HGB CONC 35.4 % (32.0-36.0); MEAN PLATELET VOLUME 8.4 FL (7.0-11.0); MONO % 13.9 % (0.0-8.0); MONOCYTE # 0.6 TH/MM3 (0-0.9); PLATELET COUNT 150 TH/MM3 (150-450); RED BLOOD COUNT 2.45 MIL/MM3 (4.00-5.30); RED CELL DISTRIBUTION WIDTH 18.6 % (11.6-17.2); WHITE BLOOD COUNT 4.6 TH/MM3 (4.0-11.0)
[2017-03-09 04:01] LABS: INTERNATIONAL NORMALIZED RATIO 2.4 RATIO; PROTHROMBIN TIME - PATIENT 24.1 SEC (9.8-11.6)
[2017-03-09 04:34] LABS: ALBUMIN 2.9 GM/DL (3.4-5.0); ALKALINE PHOSPHATASE 121 U/L (45-117); ALT (GPT) 13 U/L (10-53); AST (GOT) 12 U/L (15-37); BICARBONATE 29.1 MEQ/L (21.0-32.0); BLOOD UREA NITROGEN 15 MG/DL (7-18); CALCIUM 7.7 MG/DL (8.5-10.1); CHLORIDE 102 MEQ/L (98-107); CREATININE 0.38 MG/DL (0.50-1.00); GLOMERULAR FILTRATION RATE 175 ML/MIN (>89); GLUCOSE,RANDOM 102 MG/DL (74-106); SODIUM (NA) 140 MEQ/L (136-145); TOTAL BILIRUBIN ADULT 0.5 MG/DL (0.2-1.0); TOTAL PROTEIN 5.9 GM/DL (6.4-8.2)
[2017-03-09] MEDS: ALBUMIN 25% INJ 100 ML IV SCH (04:49)
[2017-03-09] MEDS: DILTIAZEM HCL 30 MG TAB PO SCH ×4 (04:50→23:37)
--- NOTE | 2017-03-09 05:02 | RADRPT ---
EXAM DATE/TIME: 03/09/2017 04:16 [facility] COMPARISON: CHEST SINGLE AP, March 07, 2017, 12:40. INDICATIONS : Shortness of breath, possible pneumothorax. MEDICAL HISTORY : Chronic obstructive pulmonary disease. A-Fib SURGICAL HISTORY : None. ENCOUNTER: Subsequent ACUITY: 3 days PAIN SCORE: 0/10 LOCATION: Bilateral chest FINDINGS: Single portable frontal view the chest shows the tip of the endotracheal tube 3 cm proximal to alethea . Right-sided central line. The nasogastric tube just past the GE junction. Bilateral pleural effusio ns and bibasilar pulmonary infiltrates are unchanged. Heart is at the upper limits of normal in terms of size. CONCLUSION: Unchanged bilateral pleural effusions and bibasilar infiltrates. Art Tate Jr., MD on March 09, 2017 at 5:00 Board Certified Radiologist. This report was verified electronically.
[2017-03-09] MEDS ORDERED: MAGNESIUM SULFATE 4 GM PREMIX 100 ML IV ONE (06:15)
[2017-03-09] MEDS ORDERED: POTASSIUM CHLORIDE 25 MEQ EFFERVESCENT TAB OG-TUBE ONE (06:15)
[2017-03-09] MEDS: POTASSIUM CHLOR 40 MEQ PREMIX 100 ML IV-CENTRAL PRN ×2 (06:17→09:42)
[2017-03-09] MEDS ORDERED: MAGNESIUM SULFATE INJ 4 GM in SODIUM CHLORIDE 0.9% INJ 100 ML IV ONE (06:30)
--- NOTE | 2017-03-09 07:41 | PD.CARD.PN ---
Subjective Subjective Remarks D/W RN, heart rate is controlled, no significant change overnight. Intubated, sedated. (Demetrio Rm) Objective Medications Current Medications Medications (Trade) Dose Ordered Sig/Armin Route Start Time Stop Time Status Last Admin (Lanoxin Inj) 0.125 mg DAILY IV PUSH 03/06/17 09:00 03/08/17 09:13 Diltiazem HCl 125 mg/Sodium Chloride 125 ml @ 5 mls/hr TITRATE PRN IV 03/06/17 08:45 03/09/17 01:32 (NS Flush) 2 ml BID IV FLUSH 03/06/17 21:00 03/08/17 20:01 (NS Flush) 2 ml UNSCH PRN IV FLUSH 03/06/17 10:00 (Albuterol Neb) 2.5 mg Q2HR NEB PRN INH 03/06/17 10:00 03/07/17 05:15 (Urecholine) 25 mg Q8H PO 03/06/17 11:00 03/09/17 01:23 (Ferrous Sulfate) 325 mg BID PO 03/06/17 21:00 03/08/17 20:00 (Mag-Ox) 400 mg DAILY@1100,1900 PO 03/06/17 19:00 03/08/17 18:46 (Percocet 10-325 Mg) 1 tab Q6H PRN PO 03/06/17 10:00 03/06/17 15:31 (Flomax) 0.4 mg DAILY PO 03/07/17 09:00 03/08/17 09:13 (Spiriva Inh) 18 mcg DAILY INH 03/07/17 09:00 Future Hold (Coumadin) 4 mg DAILY@1600 PO 03/06/17 16:00 Future Hold 03/07/17 17:12 (Tylenol) 650 mg Q4H PRN PO 03/06/17 10:15 (Elvie-Colace) 1 tab BID PO 03/06/17 21:00 03/08/17 20:00 (Milk Of Magnesia Liq) 30 ml Q12H PRN PO 03/06/17 10:15 (Senokot) 17.2 mg Q12H PRN PO 03/06/17 10:15 (Dulcolax Supp) 10 mg DAILY PRN RECTAL 1/1/18 10:15 (Lactulose Liq) 30 ml DAILY PRN PO 03/06/17 10:15 (KCl) 20 meq DAILY PO 03/06/17 11:00 03/08/17 09:13 Pharmacy Profile Note 0 ml @ 0 mls/hr UNSCH OTHER 03/06/17 10:45 (Duoneb Neb) 1 ampule QID NEB NEB 03/06/17 16:00 03/08/17 20:20 (Cardizem) 30 mg Q6HR PO 03/06/17 18:00 03/06/17 23:06 Phenylephrine HCl 160 mg/Dextrose 500 ml @ 7.5 mls/hr TITRATE PRN IV 03/07/17 08:15 03/07/17 11:36 (Brethine Inj) 1 mg UNSCH PRN SQ 03/07/17 08:15 (Peridex 0.12% Liq) 15 ml BID@08,20 MT 03/07/17 20:00 03/08/17 20:01 Potassium Chloride 100 ml @ 50 mls/hr Q2H PRN IV-CENTRAL 03/07/17 08:15 03/09/17 06:17 Potassium Chloride 100 ml @ 50 mls/hr Q2H PRN IV 03/07/17 08:15 (K-Lyte Cl Eff) 50 meq UNSCH PRN PO 03/07/17 08:15 Potassium Chloride 100 ml @ 25 mls/hr UNSCH PRN IV-CENTRAL 03/07/17 08:15 Potassium Chloride 100 ml @ 50 mls/hr Q2H PRN IV 03/07/17 08:15 Magnesium Sulfate 4 gm/Sodium Chloride 100 ml @ 50 mls/hr UNSCH PRN IV 03/07/17 08:15 (Mag-Ox) 800 mg UNSCH PRN PO 03/07/17 08:15 Magnesium Sulfate 2 gm/Sodium Chloride 100 ml @ 50 mls/hr UNSCH PRN IV 03/07/17 08:15 (K-Phos) 2,000 mg Q4H PRN PO 03/07/17 08:15 Sodium Phosphate 30 mmol/Sodium Chloride 250 ml @ 42 mls/hr UNSCH PRN IV 03/07/17 08:15 (K-Phos) 2,000 mg UNSCH PRN PO/TUBE 03/07/17 08:15 Potassium Phosphate 30 mmol/ Sodium Chloride 260 ml @ 42 mls/hr UNSCH PRN IV 03/07/17 08:15 Midazolam HCl 100 ml @ 2 mls/hr TITRATE PRN IV 03/07/17 09:00 03/08/17 04:36 (Cardizem Inj) 25 mg UNSCH IV PUSH 03/07/17 12:00 (Lasix Inj) 40 mg Q6H IV PUSH 03/08/17 13:30 03/09/17 01:23 Albumin Human 100 ml @ 12.5 mls/hr Q8H IV 03/08/17 13:30 03/09/17 13:29 03/09/17 04:49 (Beneprotein Powder) 2 pack TID G-TUBE 03/08/17 13:30 03/08/17 18:00 Vital Signs / I&O Vital Signs Date Time Temp Pulse Resp B/P (MAP) Pulse Ox O2 Delivery O2 Flow Rate FiO2 03/09/17 04:19 99 40 03/09/17 04:00 40 03/09/17 03:04 95 03/09/17 03:00 99.5 91 12 112/67 (82) 100 125/55 (78) 03/09/17 01:32 95 123/55 03/09/17 01:04 100 40 03/09/17 00:00 40 03/08/17 23:00 100.0 95 18 108/64 (79) 99 108/56 (73) 03/08/17 23:00 95 03/08/17 22:05 99 40 03/08/17 20:20 99 40 03/08/17 20:00 40 03/08/17 19:00 99.1 98 18 105/67 (80) 99 106/54 (71) 03/08/17 19:00 98 03/08/17 16:00 40 03/08/17 15:36 99 40 03/08/17 15:00 93 03/08/17 15:00 99.6 103 17 105/66 (79) 99 91/55 (67) 03/08/17 12:55 100 40 03/08/17 12:00 40 03/08/17 11:00 99.9 69 16 105/65 (78) 100 99/71 (80) 03/08/17 11:00 85 03/08/17 10:45 100 40 03/08/17 09:36 100.0 80 16 109/50 100 03/08/17 09:35 100.0 75 16 106/76 100 03/08/17 08:00 40 I/O 03/08/17 03/08/17 03/08/17 03/09/17 03/09/17 03/09/17 07:00 15:00 23:00 07:00 15:00 23:00 Intake Total 315.5 ml 610 ml 477 ml 614.6 ml Output Total 350 ml 2300 ml 2715 ml Balance -34.5 ml 610 ml -1823 ml -2100.4 ml IV Total 255.5 ml 308 ml 218.6 ml Tube Feeding 79 ml 396 ml Packed Cells 400 ml Blood Product IV Normal Saline Flush 210 ml Tube Irrigant 60 ml 90 ml Output Urine Total 300 ml 2300 ml 2715 ml Gastric Drainage Total 50 ml 0 ml # Bowel Movements 0 0 0 Physical Exam GENERAL: Well-developed well-nourished. NECK: No carotid bruits. No JVD. CARDIOVASCULAR: Irregular, controlled rate and irregular rhythm. 3/6 systolic ejection murmur appreciated. RESPIRATORY: Bilateral wheezing. Basilar crackles. MUSCULOSKELETAL: No clubbing or cyanosis. Trace lower extremity edema. NEUROLOGICAL: Intubated, sedated. Laboratory Laboratory Tests Test 03/08/17 19:44 03/09/17 03:20 Blood Gas Puncture Site ART LINE Blood Gas Patient Temperature 98.6 Blood Gas HCO3 27 mmol/L Blood Gas Base Excess 3.4 mmol/L Blood Gas Oxygen Saturation 97 % Arterial Blood pH 7.50 Arterial Blood Partial Pressure CO2 35 mmHg Arterial Blood Partial Pressure O2 132 mmHg Arterial Blood Oxygen Content 16.0 Vol % Arterial Blood Carboxyhemoglobin 1.4 % Arterial Blood Methemoglobin 1.1 % Blood Gas Hemoglobin 11.6 G/DL Oxygen Delivery Device VENTILATOR Blood Gas Ventilator Setting PRVC/AC Blood Gas Inspired Oxygen 40 % White Blood Count 4.6 TH/MM3 Red Blood Count 2.45 MIL/MM3 Hemoglobin 8.5 GM/DL Hematocrit 23.9 % Mean Corpuscular Volume 97.5 FL Mean Corpuscular Hemoglobin 34.5 PG Mean Corpuscular Hemoglobin Concent 35.4 % Red Cell Distribution Width 18.6 % Platelet Count 150 TH/MM3 Mean Platelet Volume 8.4 FL Neutrophils (%) (Auto) 77.0 % Lymphocytes (%) (Auto) 8.9 % Monocytes (%) (Auto) 13.9 % Eosinophils (%) (Auto) 0.1 % Basophils (%) (Auto) 0.1 % Neutrophils # (Auto) 3.6 TH/MM3 Lymphocytes # (Auto) 0.4 TH/MM3 Monocytes # (Auto) 0.6 TH/MM3 Eosinophils # (Auto) 0.0 TH/MM3 Basophils # (Auto) 0.0 TH/MM3 CBC Comment DIFF FINAL Differential Comment Prothrombin Time 24.1 SEC Prothromb Time International Ratio 2.4 RATIO Blood Urea Nitrogen 15 MG/DL Creatinine 0.38 MG/DL Random Glucose 102 MG/DL Total Protein 5.9 GM/DL Albumin 2.9 GM/DL Calcium Level 7.7 MG/DL Alkaline Phosphatase 121 U/L Aspartate Amino Transf (AST/SGOT) 12 U/L Alanine Aminotransferase (ALT/SGPT) 13 U/L Total Bilirubin 0.5 MG/DL Sodium Level 140 MEQ/L Potassium Level 2.5 MEQ/L Chloride Level 102 MEQ/L Carbon Dioxide Level 29.1 MEQ/L Anion Gap 9 MEQ/L Estimat Glomerular Filtration Rate 175 ML/MIN Imaging Last 24 hours Impressions Chest X-Ray 03/09/17 0600 Signed Impressions: Service Date/Time: March 04:16 - CONCLUSION: Unchanged bilateral pleural effusions and bibasilar infiltrates. Art Tate Jr., MD (Demetrio Rm) Assessment and Plan Problem List: (1) significant aortic stenosis, CHF (2) moderately severe COPD (3) dyspnea (4) Pulmonary HTN ICD Codes: I27.20 - Pulmonary hypertension, unspecified (5) Atrial fibrillation with RVR ICD Codes: I48.91 - Unspecified atrial fibrillation Status: Chronic (6) CHF (congestive heart failure) ICD Codes: I50.9 - Heart failure, unspecified Assessment and Plan 56 yo F with COPD, diastolic CHF, severe aortic stenosis and pancytopenia admitted for acute dyspnea while residing at rehab; found to be in rapid afib. afib: rate controlled on Cardizem gtt. and digoxin. INR 2.4. Warfarin from hold with anemia. aortic stenosis: severe stenosis with moderate regurgitation, preserved ejection fraction. Balloon valvuloplasty would be high risk. Not currently TAVR or AVR candidate unless meaningful recovery and rehab. Diastolic CHF: Probably secondary to valvular disease as above. EF 50-55%. + bilateral effusion L>R, S/P L thoracentesis 03/08. Continue IV diuresis. Acute anemia: Hemoglobin trended down to 6.5, improved to 8.5 status post transfusion 1 unit PRBCs. Warfarin on hold. Acute respiratory failure: Secondary to pleural effusions and pneumonia. Critical Care medicine managing. Continue antibiotics per primary team. (Demetrio Rm) Assessment and Plan agree with chest tube resp failure PNA not surgical candidate unless recovery will continue to follow (Jamie Goyal MD) Problem Qualifiers (1) CHF (congestive heart failure): Qualified Codes: I50.9 - Heart failure, unspecified Demetrio Rm Mar 09, 2017 07:41 Jamie Goyal MD Mar 09, 2017 10:16
[2017-03-09] MEDS: RESP: ALBUTEROL 2.5 MG/IPRATROPIUM 0.5 MG NEB (SCH) NEB ×4 (08:13→21:05)
--- NOTE | 2017-03-09 08:27 | MB ---
cc: JOSEY RECINOS DATE OF CONSULTATION: 03/08/2017 HISTORY OF PRESENT ILLNESS: 36-year-old with date of 1960 who is known to our service, underwent left thoracotomy and decortication, exploration of complex loculated effusion on 01/11/2017. She was admitted on the and she was discharged on January 24. Prolonged stay was due to the chest tube remaining. She also required a bronchoscopy and was intubated during that time for a short course. Prior to that, she had nausea and vomiting and long-term tobacco abuse. She had had a 20-pound weight loss. She is followed by Dr. Chung as an outpatient and has home 02. She had also a workup during that time for significant pancytopenia and recommended evaluation for possible myelodysplastic syndrome; however, she refused any bone marrow procedure at that time. She was readmitted January 31 to February 25 for a urinary tract infection, hypokalemia, severe sepsis, encephalopathy, COPD. She was discharged to a half-way facility. During the course of her second admission, she was evaluated by Dr. Kirk for severe aortic stenosis and was possibly evaluated for transcatheter aortic valve replacement but was felt not to be a candidate. We saw the patient back on 02/06. She was to be evaluated at that time for possible transcatheter aortic valve replacement but not for open because of her poor recovery and multiple comorbidities. Re-admitted on March 06 with shortness of breath, COPD exacerbation, also atrial fibrillation. She was discharged to the rehab center for aggressive physical therapy to evaluate for possible TAVR at that time. On the , the patient apparently was called a Code Blue and had a pulse, agonal respirations. The patient was emergently intubated, was hypotensive and tachycardic with atrial fibrillation with rapid ventricular response. Reyes-Synephrine drip was started as well as Cardizem drip. Placed a central line and an arterial line. She had bilateral effusions, this time the right was worse than the left. The right is fairly new. The patient underwent emergent left-sided thoracentesis and there was a large amount of loculated material approximately 100 cc was removed. We were asked by Dr. Chung to re-evaluate for possibly a right loculated effusion and for possible chest tube placement. PAST MEDICAL HISTORY: The patient has a long past medical history of: 1. Aortic stenosis and has been evaluated for possible TAVR in the future deemed response to physical therapy. 2. Pancytopenia on her previous admission. 3. Urinary retention. 4. COPD. 5. Congestive heart failure. 6. Atrial fibrillation. PAST SURGICAL HISTORY: Surgeries include: 1. Left thoracotomy decortication in 2017. ALLERGIES: NO KNOWN ALLERGIES. HOME MEDICATIONS: 1. Urecholine. 2. Spiriva. 3. Ventolin. 4. Flomax. 5. Ferrous sulfate. 6. Coumadin. 7. Digoxin. 8. Diltiazem. 9. Percocet. 10. Tylenol. 11. Potassium. 12. Lasix. 13. Magnesium. FAMILY HISTORY: Mother had some valve issues in congestive heart failure and currently resides at a half-way facility. SOCIAL HISTORY: Smoked for 34 years and quit 6 years ago. Social alcohol. REVIEW OF SYSTEMS: Unobtainable. PHYSICAL EXAMINATION: GENERAL: On exam, very critically ill female. VITAL SIGNS: Blood pressure 105/60, heart rate 90, temperature max 99.6. She is on 40% FIO2. HEAD, EYES, EARS, NOSE, THROAT: She is orally intubated. She will open her eyes on command. She is currently not following commands. However, she will grimace. Head is normocephalic, atraumatic. Oral mucosa pink, moist. Her skin is somewhat pale. Pale conjunctiva. Orally intubated. NECK: The neck is supple. No JVD. HEART: Heart sounds S1-S2 slightly irregular rate and rhythm. LUNGS: Coarse bilateral breath sounds more on the right versus the left. ABDOMEN: Abdomen soft and protuberant. No masses or organomegaly. EXTREMITIES: Reveal a significant ecchymotic areas to the upper extremities. Fair distal pulses. LABORATORY STUDIES: Lab work shows hemoglobin 6.5, hematocrit of 19, white cell count 5.8, platelet count 199,000. She has received 2 units of blood today. Sodium 136, potassium 3.6, BUN 16, creatinine 0.31, AST 10, ALT 13, albumin 1.9. INR is 2.2. Digoxin 0.6. Pleural fluid showed positive for RBCs. No Gram stain. IMAGING STUDIES: CT angiography on the 2nd showed some consolidation of the right lower lobe consistent of some pneumonia, reduction in the size of the left pleural effusion, small right pleural effusion. Head CT showed no acute intracranial pathology. Head CTA was negative. Neck CTA - aneurysmal dilation of the tubular portion of the ascending aorta with a maximum dimension of 4.6, some plaquing at the carotid bifurcations. At this time, the films have been reviewed by Dr. Josey Recinos. RECOMMENDATIONS: The recommendation would be for possibly interventional radiology to place a pigtail catheter to drain the right loculated effusion and send fluid for studies; however, at this time, we will discuss this further with the critical care team who is following the patient closely and would recommend continued IV Lasix and diuresis. Further planning per Dr. Josey Recinos. Dictated by HYUN Leon. MD MISSY Maddox/FLORIN /3:26 PM /8:12 AM
[2017-03-09] MEDS: BENEPROTEIN POWDER 1 PACK G-TUBE SCH ×3 (09:00→17:52)
[2017-03-09] MEDS: POTASSIUM CHLORIDE 10 MEQ CAP PO SCH (09:00)
[2017-03-09] MEDS: DIGOXIN 0.5 MG/2 ML VIAL IV PUSH SCH (09:23)
[2017-03-09] MEDS: TAMSULOSIN HCL 0.4 MG CAP PO SCH (09:23)
[2017-03-09] MEDS: DOCUSATE SODIUM 50 MG/SENNA 8.6 MG TAB PO SCH ×2 (09:24→19:48)
[2017-03-09] MEDS: FERROUS SULFATE 325 MG (65 MG ELEMENTAL IRON) TAB PO SCH ×2 (09:24→19:48)
[2017-03-09] MEDS: SODIUM CHLORIDE 0.9% FLUSH 10 ML FLUSH IV FLUSH SCH ×2 (09:25→19:48)
[2017-03-09] MEDS: ACETAMINOPHEN 325 MG TAB PO PRN ×2 (09:41→19:02)
[2017-03-09] MEDS: CHLORHEXIDINE 0.12% (ORAL KIT) 15 ML CUP MT SCH ×2 (09:58→19:49)
[2017-03-09] MEDS: MAGNESIUM OXIDE 400 MG TAB PO SCH ×2 (11:32→17:52)
--- NOTE | 2017-03-09 12:04 | HHI.FPPN ---
Subjective Remarks Ms Steven remains intubated on pressors. She does open her eyes and moves all extremities when her sedation is lifted. Her came to visit briefly yesterday per staff but has not been in today. Pt unable to give any ROS. Objective Vitals Vital Signs Date Time Temp Pulse Resp B/P (MAP) Pulse Ox O2 Delivery O2 Flow Rate FiO2 03/09/17 11:38 99 40 03/09/17 08:03 99 40 03/09/17 08:00 40 03/09/17 07:00 100.5 91 19 106/72 (83) 99 121/59 (79) 03/09/17 07:00 91 03/09/17 04:19 99 40 03/09/17 04:00 40 03/09/17 03:04 95 03/09/17 03:00 99.5 91 12 112/67 (82) 100 125/55 (78) 03/09/17 01:32 95 123/55 03/09/17 01:04 100 40 03/09/17 00:00 40 03/08/17 23:00 100.0 95 18 108/64 (79) 99 108/56 (73) 03/08/17 23:00 95 03/08/17 22:05 99 40 03/08/17 20:20 99 40 03/08/17 20:00 40 03/08/17 19:00 99.1 98 18 105/67 (80) 99 106/54 (71) 03/08/17 19:00 98 03/08/17 16:00 40 03/08/17 15:36 99 40 03/08/17 15:00 93 03/08/17 15:00 99.6 103 17 105/66 (79) 99 91/55 (67) 03/08/17 12:55 100 40 03/08/17 12:00 40 I/O 03/08/17 03/08/17 03/08/17 03/09/17 03/09/17 03/09/17 07:00 15:00 23:00 07:00 15:00 23:00 Intake Total 315.5 ml 610 ml 477 ml 614.6 ml 200 ml Output Total 350 ml 2300 ml 2715 ml Balance -34.5 ml 610 ml -1823 ml -2100.4 ml 200 ml IV Total 255.5 ml 308 ml 218.6 ml 200 ml Tube Feeding 79 ml 396 ml Packed Cells 400 ml Blood Product IV Normal Saline Flush 210 ml Tube Irrigant 60 ml 90 ml Output Urine Total 300 ml 2300 ml 2715 ml Gastric Drainage Total 50 ml 0 ml # Bowel Movements 0 0 0 Result Diagram: 03/09/17 0320 03/09/17 032 Objective Remarks GEN: Sedated, intubated, critically ill CV: Normal rate, irregularly irregular rhythm, harsh grating systolic murmur heard best at RUSB LUNGS: Coarse breath sounds bilaterally, diminished on L side but overall stable from prior exams ABD: Soft, mildly distended NEURO: Obtunded from sedation. opens eyes and moves extremities when sedation lifted. Procedures 03/07/17 - Thoracentesis, ET intubation, central venous line placement, arterial line placement Urinary Catheter: Yes Cabrera insert reason: ICU Pt Getting Diuretics Vascular Central Line Catheter: Yes A/P Assessment and Plan Mrs. Steven is a 56yo white female with a PMH of COPD, CHF, and atrial fibrillation now with: Problem List: (1) Cardiogenic shock ICD Codes: R57.0 - Cardiogenic shock Status: Acute Plan: Patient entered cardiogenic shock on 03/07/17 Etiology = severe aortic stenosis plus other valvular abnormalities Echocardiogram 03/06/17 The left ventricular systolic function is low normal with an estimated ejection fraction in the range of 50-55%. Normal left ventricular size. Mild concentric left ventricular hypertrophy. No regional wall motion abnormalities are present. Moderate aortic valve regurgitation. Severe aortic valve stenosis. Aortic valve area is 0.78 cm. Aortic valve mean gradient is 45 mmHg. There is estimated moderate pulmonary hypertension present (range 50-60 mmHg) -Critical care consulted, appreciate assistance -Continued digoxin 0.125 mg by NG daily -diltiazem drip -phenylephrine infusion for goal map > 65 mmhg. -pursue forced diuresis despite shock due to volume overload from aortic stenosis -Palliative care consulted, appreciate assistance -Family desiring continued aggressive medical management -See below for clarification of code status Had extended discussion with decision maker () at 1440 on 03/08/17. clarified code status: alternative code, ACLS drugs + intubation + chest compressions all okay, but not shock treatment. We discussed that neither CPR nor ACLS drugs nor shock treatment would in any way fix her heart if she were to enter cardiac arrest and that if she did achieve ROSC she would very likely code again and again. states that he wants "everything done that a lance crewmember/mlrs sergeant could do" but that shock would just "overstimulate her heart" so he wouldn't want to put her through that. Again reiterated that chest compressions would essentially have the same effect and that with her valve issue it would be like "trying to push all her blood through a pinhole" and would put her through a lot of stress including probable rib fracture. expressed understanding of all points of discussion, but for now is hopeful and wishes code status to be as documented above. He would like to be notified MEG of any cardiac arrest: Phone = [phone], his name is Feliberto Steven (2) Respiratory failure with hypoxia and hypercapnia ICD Codes: J96.91 - Respiratory failure, unspecified with hypoxia; J96.92 - Respiratory failure, unspecified with hypercapnia Plan: Etiology likely combination of cardiogenic shock and pleural effusion in patient with underlying CHF, COPD Valvular disease as noted above -Critical care consulted, appreciate assistance -Continue intubation with mechanical ventilation -Wean vent once more hemodynamically stable (3) Macrocytic anemia ICD Codes: D53.9 - Nutritional anemia, unspecified Plan: Hbg upon admission was 7.8 with MCV of 102.8. Hgb < 7 on 03/08/17 Outpatient work-up including BMB negative (previously had pancytopenia) MDS suspected -Check post-transfusion H/H -Transfuse for Hgb < 8.0 (4) Pleural effusion ICD Codes: J90 - Pleural effusion, not elsewhere classified Status: Chronic Plan: Likely related to valvular heart disease, possibly also due to malignancy given history of pancytopenia, although extensive work-up thus far negative -Consulted [employer] Dr. Chung, appreciate input -Pt had thoracentesis on 03/06/17 -Continue management per CCM recs as above (5) Atrial fibrillation with RVR ICD Codes: I48.91 - Unspecified atrial fibrillation Status: Chronic Plan: Now rate-controlled. on diltiazem. can consider changing to po/NG -Continue management as above (see "Cardiogenic shock") (6) COPD (chronic obstructive pulmonary disease) ICD Codes: J44.9 - Chronic obstructive pulmonary disease, unspecified Status: Chronic Plan: Patient with history COPD presenting the ED with shortness of breath, which can be due to multiple etiologies. Patient felt better after being given nebs in the ED. Patient has a previous hx of respiratory failure and intubation and is back intubated now -Manage respiratory failure as above -Duonebs QID, albuterol PRN for SOB/wheeze -Unlikely to be pneumonia (afebrile, no leukocytosis); will D/C antibiotics at this time (7) CHF (congestive heart failure) ICD Codes: I50.9 - Heart failure, unspecified Plan: Patient previously diagnosed with CHF. BNP on admission was 388. Echo findings as above anatomically her heart is functioning very poorly with her serious and compounded valvular problems. unfortunately, this is not fixable with medicines (8) Urinary retention ICD Codes: R33.9 - Retention of urine, unspecified Status: Chronic Plan: * will hold her Flomax as she has a catheter now (9) Elevated alkaline phosphatase level ICD Codes: R74.8 - Abnormal levels of other serum enzymes Plan: Alkaline phosphatase elevated at admission at 240. This was also elevated at previous admissions, but not as high. AST, ALT, and bilirubin are WNL. Since this is the case, may be related to bone process. Malignancy vs recent fracture. * Consider fractionating if any doubt about this. Pagets disease is a possibility as well but she is so ill now that this can be evaluated later (10) FEN Status: Acute Plan: Fluids: (aggressively diuresing) Electrolytes: monitor and replete as needed on protocol. low K with all her diuresing but mag is fine Nutrition: Via tube DVT Prophylaxis: SCDs; on Coumadin, was not therapeutic; holding for now due to anemia GI Prophylaxis: Protonix Fever/Pain management: on sedation now CODE STATUS: Alternate code = chest compressions + drugs + intubation. NO shock. Problem Qualifiers (1) Respiratory failure with hypoxia and hypercapnia: Qualified Codes: J96.01 - Acute respiratory failure with hypoxia; J96.02 - Acute respiratory failure with hypercapnia (2) COPD (chronic obstructive pulmonary disease): Qualified Codes: J44.9 - Chronic obstructive pulmonary disease, unspecified (3) CHF (congestive heart failure): Qualified Codes: I50.9 - Heart failure, unspecified Cecy Hays MD Mar 09, 2017 12:04
--- NOTE | 2017-03-09 15:40 | OTSOAPIP ---
TIME SESSION COMPLETED: 1340 INTERDISCIPLINARY COMMUNICATION: SPOKE WITH RN JEN RECEIVED OCCUPATIONAL THERAPY ORDERS. ATTEMPTED TO SEE PATIENT, HOWEVER PATIENT UNDERWENT CHANGE IN STATUS EARLIER THIS AM REQUIRING INTUBATION. OT WILL SIGN OFF AND WILL REQUIRE RESTART ORDERS ONCE STABLE TO BE SEEN FOR EVALUATION. Therapist: Noemi Forrest, OTR/Alli Signature on file 03/09/17 SPOKE TO RN ABOUT REQUESTING RESTART ORDERS HOWEVER, REMAINS UNAPPROPRIATE AT THIS TIME. WILL FOLLOW UP. LG
--- NOTE | 2017-03-09 18:34 | HHI.CCPN ---
Subjective Remarks/Hospital Course Hospital Course: This is a 65-year-old female with a history of CHF secondary valvulopathy, COPD , atrial fibrillation, and critical aortic stenosis who was initially admitted with CHF exacerbation yesterday to the floor. Today she had a sudden acute change in condition and had a respiratory arrest for which [facility] was called. I immediately arrive at the [facility] where the patient had a pulse, but was not breathing with agonal respirations. She was being bag valve mask ventilated by the respiratory therapist. We assess condition and emergently transported to intensive care unit and she was emergently intubated. At this point she became hypotensive and tachycardic with atrial fibrillation with rapid ventricular response. Given her critical aortic stenosis, phenylephrine infusion was started as well as diltiazem infusion. Emergently placed arterial line, and central line. In addition, the primary family medicine team is at bedside and stated that she had bilateral pleural effusions, left greater than right, but it been chronic and had been drinking before, and they felt that her effusions have increased in size since prior admission. Chest x-ray confirms a moderate sized left pleural effusion. Due to her acute hypoxemia and respiratory arrest, emergent left-sided thoracentesis was performed, however there is a large amount of loculated material and only approximately 100 cc of fluid was able to be removed. Critical-care medicine is consulted to help evaluate and manage her hemodynamic collapse, respiratory arrest. Subjective: 03/08: no clinical improvements. HR controlled. remains on phenylephrine and diltiazem infusions. palliative discussed care again with family: patient is DNR now, but still family presses for ongoing aggressive medical therapy. although right pleural effusion is moderate sized, patient is not currently hypoxic and effusion is likely secondary to volume overload, aortic stenosis. no indication for drainage at this time. 03/09: no improvements. good diuresis. -3L/24h. no improvements in mental status. overall, prognosis remains very poor. remains on diltiazem drip and phenylephrine drip. Objective Vital Signs Date Time Temp Pulse Resp B/P (MAP) Pulse Ox O2 Delivery O2 Flow Rate FiO2 03/09/17 16:11 99 40 03/09/17 15:00 100.4 90 18 121/77 (92) 112/77 (89) 03/06/17 19:15 Nasal Cannula 3.00 Intake and Output 1/06/2103/09/17 03/10/17 08:00 16:00 00:00 Intake Total 614.6 ml 550 ml Output Total 2715 ml Balance -2100.4 ml 550 ml Result Diagram: 03/09/17 0320 03/09/17 0320 Other Results Laboratory Tests Test 03/08/17 19:44 Blood Gas Puncture Site ART LINE Blood Gas Patient Temperature 98.6 Blood Gas HCO3 27 mmol/L (22-26) Blood Gas Base Excess 3.4 mmol/L (-2-2) Blood Gas Oxygen Saturation 97 % (90-100) Arterial Blood pH 7.50 (7.380-7.420) Arterial Blood Partial Pressure CO2 35 mmHg (38-42) Arterial Blood Partial Pressure O2 132 mmHg (61-120) Arterial Blood Oxygen Content 16.0 Vol % (12.0-20.0) Arterial Blood Carboxyhemoglobin 1.4 % (0-4) Arterial Blood Methemoglobin 1.1 % (0-2) Blood Gas Hemoglobin 11.6 G/DL (12.0-16.0) Oxygen Delivery Device VENTILATOR Blood Gas Ventilator Setting PRVC/AC Blood Gas Inspired Oxygen 40 % Imaging Last Impressions Neck CTA 03/07/17 0000 Signed Impressions: Service Date/Time: Tuesday, March 07, 2017 09:49 - CONCLUSION: 1. Aneurysmal dilation of the tubular portion of the ascending aorta with a maximum dimension of 4.6 cm. 2. Atherosclerotic plaquing at the carotid bifurcations. No hemodynamically significant stenosis identified. Stew Lindsay MD Head CTA 03/07/17 0000 Signed Impressions: Service Date/Time: Tuesday, March 07, 2017 09:49 - CONCLUSION: Negative examination. Stew Lindsay MD Head CT 03/07/17 0000 Signed Impressions: Service Date/Time: Tuesday, March 07, 2017 09:43 - CONCLUSION: No evidence of acute intracranial pathology. Chronic ischemic changes as above. Sterling Wolfe MD Chest X-Ray 03/07/17 0000 Signed Impressions: Service Date/Time: Tuesday, March 07, 2017 12:40 - CONCLUSION: 1. No pneumothorax identified. 2. Saphenous catheter and ET tube in good position. 3. Large right pleural effusion. Similar in size previous. Stew Lindsay MD CT Angiography 03/07/17 0000 Signed Impressions: Service Date/Time: Tuesday, March 07, 2017 09:56 - CONCLUSION: 1. Dense consolidation right lower lobe not present previously characteristic of pneumonia. 2. Reduction in size of the left pleural effusion since the prior exam which has gas bubbles within it probably from chest tube insertion previously. 3. Right pleural effusion and bilateral parenchymal infiltrates also seen in addition to small right pleural effusion. Dyllan Sin MD Objective Remarks gen: frail woman who appears much older than stated age, intubated, sedated, critically ill. heent: perrl. mmm. normocephalic, atraumatic. neck: +jvd. trachea midline. chest: equal chest rise. prvc 40% fio2. cv: normal rate in the 80s, irregularly irregular rhythm. afib by tele. abd: soft, nontender, nondistended. no guarding. extr: 2+ peripheral edema. neuro: RASS -4. withdraws to pain. does not follow commands. A/P Assessment and Plan Assessment: 56yF with end-stage critical aortic stenosis now s/p respiratory arrest. Remains very critically ill. no improvements in 48h. without surgical options for aortic valve replacement, her life expectancy is much less than a year, and given her acute decline, she will likely not survive this hospitalization. appreciate palliative care input and assistance. continue supportive care and forced diuresis as we are without any other option and family continues to press for aggressive care. Plan by systems: Neurologic: Acute encephalopathy Frequent neuro checks Avoid long-acting sedating meds Versed for goal RASS -2 CT brain 1/2 negative for acute disease CTA head and neck 1/2 negative for acute disease Respiratory: Acute hypoxic and hypercarbic respiratory failure - persistent. Respiratory arrest Intubated 1/2 for respiratory arrest Vent bundle Head of bed at 30 Nebs No weaning of mechanical ventilation until improved hemodynamics Cardiovascular: Cardiogenic shock- persistent. Critical aortic stenosis Atrial fibrillation with rapid ventricular response - now rate controlled Continued digoxin 0.125 mg by mouth daily diltiazem drip phenylephrine infusion for goal map > 65 mmhg. pursue forced diuresis despite shock due to volume overload from aortic stenosis. Renal: Acute Kidney Injury- resolved. - willem for accurate I/Os -- Strict I/Os - lasix 40mg iv q6h - diamox 500mg iv q8h - continuous albumin infusion to prevent intravascular hypovolemia in the setting of aortic stenosis. FEN/GI: Acute protein calorie malnutrition- severe ICU electrolyte protocol daily BMP tube feeds. Heme/ID: Pancytopenia - secondary to likely MDS no infectious etiology suspected at this time. afebrile. trend daily cbc. does not meet transfusion triggers at this time. Endocrine: Hyperglycemia of critical illness -- SSI Prophylaxis: GI Prophylaxis Pepcid DVT Prophylaxis -- SCDs Subcutaneous heparin Lines: 1/2 right brachial arterial line 1/2 right IJ triple-lumen catheter 1/2 Cabrera Dispo: remain in ICU. Critically ill Amado Silva MD Mar 09, 2017 18:34
[2017-03-09 20:10] LABS: MAGNESIUM 2.7 MG/DL (1.5-2.5)
--- NOTE | 2017-03-09 20:18 | HHI.HCPN ---
Reason for visit a. To assist with evaluation and management of symptoms including: dyspnea; encephalopathy b. To assist medical decision maker(s) with: better understanding of current medical conditions; weighing benefits/burdens of medical treatment options; making medical treatment decisions. . Subjective/Interval History No significant change overnight. Patient remains intubated, mechanically ventilated, in the cardiac ICU. She is off sedation this AM -- she will open eyes to stimulation but is unable to follow commands. She moves all extremities. She remains on pressor support. After my conversation with the patient's yesterday, he had a separate conversation with the residency team and decided that his would want chest compressions. Tmax 100.5. HR controlled on cardizem drip. Blood pressure stable.. Brisk urine output--diuresing well. Hemoglobin up to 8.5 post transfusions. Chest x-ray is unchanged with bilateral pleural effusions and bibasilar infiltrates. . . Family/friend interactions Spoke with patient's approximately 25 minutes at bedside and another 10 minutes via telephone. I also spoke to the patient's sister via telephone for 10 minutes. He remains quite overwhelmed. He has grave concerns regarding the household finances should his without being able to sign over [employer] accounts, etc. He is afraid of making any further decisions regarding his 's care without consulting with family members. He feels he was not qualified to discuss the case with family members. I recommended that in order to take the burden off his shoulders and be able to move forward that he consider to things.. * Consider consult in with an workers compensation defense attorney * Choose family members that could attend a conference either in person or by phone were I could explain the medical conditions and answer all questions. seemed quite relieved to have 2 basic tasks. He called back later and we agreed to meet with family members at 2 PM on 03/10/17. He has decided he does not want to review CODE STATUS again until that family meeting takes place. . Advance Directives Living Will: Never completed Health Care Surrogate: Never completed Durable Power of Manager Installation: Never completed Advance Directive Specifics Date completed: Not aware of any written advance directive. . Health Care Surrogate(s): Not aware of any written designation of health care surrogate. . Documented care wishes: No known written documentation of health care preferences/wishes. . Objective Vital Signs Date Time Temp Pulse Resp B/P (MAP) Pulse Ox O2 Delivery O2 Flow Rate FiO2 03/09/17 16:11 99 40 03/09/17 16:00 40 03/09/17 15:00 100.4 90 18 121/77 (92) 99 112/77 (89) 03/09/17 15:00 90 03/09/17 12:00 40 03/09/17 11:38 99 40 03/09/17 11:00 100.3 92 15 114/74 (87) 99 105/50 (68) 03/09/17 11:00 91 03/09/17 08:03 99 40 03/09/17 08:00 40 03/09/17 07:00 100.5 91 19 106/72 (83) 99 121/59 (79) 03/09/17 07:00 91 03/09/17 04:19 99 40 03/09/17 04:00 40 03/09/17 03:04 95 03/09/17 03:00 99.5 91 12 112/67 (82) 100 125/55 (78) 03/09/17 01:32 95 123/55 03/09/17 01:04 100 40 03/09/17 00:00 40 03/08/17 23:00 100.0 95 18 108/64 (79) 99 108/56 (73) 03/08/17 23:00 95 03/08/17 22:05 99 40 03/08/17 20:20 99 40 . Physical Exam CONSTITUTIONAL/GENERAL: This is an adequately nourished patient, pale, mechanically ventilated in a coronary ICU bed. She is unable to follow commands , but will intermittently open eyes to stimulation. TUBES/LINES/DRAINS: Arterial line right upper extremity; right in internal jugular central line; peripheral IVs; Cabrera catheter; SCDs; orotracheal tube; orogastric tube. SKIN: No jaundice. Diffuse ecchymoses on upper extremities and across chest. No wounds seen anteriorly. Skin temperature warm. Not diaphoretic. EYES: Pupils equal, dilated and reactive. . Extraocular movements intact. . No scleral icterus. No injection or drainage. Fundi not examined. ENT: Unable to evaluate hearing. Nose without bleeding or purulent drainage. Throat without visible erythema, exudates, masses, or lesions but challenging to evaluate due to intubations. NECK: Trachea midline. CARDIOVASCULAR: Irregular rate and rhythm without gallops, or rubs. 3/6 systolic murmur heard at right sternal border. No JVD. RESPIRATORY/CHEST: Symmetric, unlabored respirations. Breath sounds equal bilaterally but greatly diminished at both bases. Scattered faint ronchi without wheezes. GASTROINTESTINAL: Abdomen soft, non-tender, nondistended. No hepato-splenomegaly , or palpable masses. No guarding. Bowel sounds present. GENITOURINARY: Without palpable bladder distension. Cabrera catheter in place. MUSCULOSKELETAL: Extremities without clubbing, cyanosis. Edema noted in ankles. No mottling. LYMPHATICS: Not examined NEUROLOGICAL: Eyes open intermittently to stimulation. Unable to follow commands. Moves all extremities . PSYCHIATRIC: Unable to assess due to level of responsiveness. . Diagnostic Tests Laboratory Laboratory Tests Test 03/07/17 08:03 03/07/17 08:20 03/07/17 20:35 03/08/17 04:55 Body Fluid Amylase Source PLEURAL Body Fluid Amylase 13 U/L Pleural Fluid WBC 21334 /MM3 (0-10) Pleural Fluid RBC 2950 /MM3 (0-0) Pleural Fluid Neutrophils 90 % Pleural Fluid Lymphocytes 5 % Pleural Fluid Monocytes 1 % Pleural Fluid Histiocytes 4 % Pleural Fluid Comment Pleural Fluid Total Protein 2.4 GM/DL Pleural Fluid Albumin 0.8 G/DL Pleural Fluid LDH 5008 U/L Pleural Fluid Glucose 68 MG/DL White Blood Count 9.7 TH/MM3 (4.0-11.0) 5.8 TH/MM3 (4.0-11.0) Red Blood Count 2.24 MIL/MM3 (4.00-5.30) 1.93 MIL/MM3 (4.00-5.30) Hemoglobin 7.6 GM/DL (11.6-15.3) 6.5 GM/DL (11.6-15.3) Hematocrit 22.5 % (35.0-46.0) 19.1 % (35.0-46.0) Mean Corpuscular Volume 100.7 FL (80.0-100.0) 98.8 FL (80.0-100.0) Mean Corpuscular Hemoglobin 33.8 PG (27.0-34.0) 33.5 PG (27.0-34.0) Mean Corpuscular Hemoglobin Concent 33.6 % (32.0-36.0) 33.9 % (32.0-36.0) Red Cell Distribution Width 20.9 % (11.6-17.2) 21.4 % (11.6-17.2) Platelet Count 242 TH/MM3 (150-450) 199 TH/MM3 (150-450) Mean Platelet Volume 8.2 FL (7.0-11.0) 8.2 FL (7.0-11.0) Neutrophils (%) (Auto) 88.2 % (16.0-70.0) 82.8 % (16.0-70.0) Lymphocytes (%) (Auto) 3.7 % (9.0-44.0) 4.4 % (9.0-44.0) Monocytes (%) (Auto) 7.9 % (0.0-8.0) 12.2 % (0.0-8.0) Eosinophils (%) (Auto) 0.0 % (0.0-4.0) 0.0 % (0.0-4.0) Basophils (%) (Auto) 0.2 % (0.0-2.0) 0.6 % (0.0-2.0) Neutrophils # (Auto) 8.6 TH/MM3 (1.8-7.7) 4.8 TH/MM3 (1.8-7.7) Lymphocytes # (Auto) 0.4 TH/MM3 (1.0-4.8) 0.3 TH/MM3 (1.0-4.8) Monocytes # (Auto) 0.8 TH/MM3 (0-0.9) 0.7 TH/MM3 (0-0.9) Eosinophils # (Auto) 0.0 TH/MM3 (0-0.4) 0.0 TH/MM3 (0-0.4) Basophils # (Auto) 0.0 TH/MM3 (0-0.2) 0.0 TH/MM3 (0-0.2) CBC Comment DIFF FINAL AUTO DIFF Differential Comment AUTO DIFF CONFIRMED Prothrombin Time 16.6 SEC (9.8-11.6) 22.7 SEC (9.8-11.6) Prothromb Time International Ratio 1.6 RATIO 2.2 RATIO Activated Partial Thromboplast Time 36.6 SEC (24.3-30.1) Fibrinogen 458 mg/dL (227-377) Blood Urea Nitrogen 17 MG/DL (7-18) 16 MG/DL (7-18) Creatinine 0.23 MG/DL (0.50-1.00) 0.31 MG/DL (0.50-1.00) Random Glucose 208 MG/DL (74-106) 87 MG/DL (74-106) Total Protein 5.7 GM/DL (6.4-8.2) 5.1 GM/DL (6.4-8.2) Albumin 2.1 GM/DL (3.4-5.0) 1.9 GM/DL (3.4-5.0) Calcium Level 8.6 MG/DL (8.5-10.1) 8.0 MG/DL (8.5-10.1) Alkaline Phosphatase 188 U/L (45-117) 142 U/L (45-117) Aspartate Amino Transf (AST/SGOT) 11 U/L (15-37) 10 U/L (15-37) Alanine Aminotransferase (ALT/SGPT) 19 U/L (10-53) 13 U/L (10-53) Total Bilirubin 0.3 MG/DL (0.2-1.0) 0.4 MG/DL (0.2-1.0) Sodium Level 135 MEQ/L (136-145) 136 MEQ/L (136-145) Potassium Level 3.6 MEQ/L (3.5-5.1) 3.6 MEQ/L (3.5-5.1) Chloride Level 98 MEQ/L (98-107) 101 MEQ/L (98-107) Carbon Dioxide Level 29.1 MEQ/L (21.0-32.0) 27.7 MEQ/L (21.0-32.0) Anion Gap 8 MEQ/L (5-15) 7 MEQ/L (5-15) Estimat Glomerular Filtration Rate 313 ML/MIN (>89) 222 ML/MIN (>89) Lactic Acid Level 0.6 mmol/L (0.4-2.0) Ammonia 15 MCMOL/L (11-32) Nasal Screen MRSA (PCR) MRSA NOT DETECTED (NOT Platelet Estimate NORMAL (NORMAL) Platelet Morphology Comment NORMAL (NORMAL) Stomatocytes 1+ (NORMAL) Test 03/08/17 19:44 03/09/17 03:20 03/09/17 19:00 Blood Gas Puncture Site ART LINE Blood Gas Patient Temperature 98.6 Blood Gas HCO3 27 mmol/L (22-26) Blood Gas Base Excess 3.4 mmol/L (-2-2) Blood Gas Oxygen Saturation 97 % (90-100) Arterial Blood pH 7.50 (7.380-7.420) Arterial Blood Partial Pressure CO2 35 mmHg (38-42) Arterial Blood Partial Pressure O2 132 mmHg (61-120) Arterial Blood Oxygen Content 16.0 Vol % (12.0-20.0) Arterial Blood Carboxyhemoglobin 1.4 % (0-4) Arterial Blood Methemoglobin 1.1 % (0-2) Blood Gas Hemoglobin 11.6 G/DL (12.0-16.0) Oxygen Delivery Device VENTILATOR Blood Gas Ventilator Setting PRVC/AC Blood Gas Inspired Oxygen 40 % White Blood Count 4.6 TH/MM3 (4.0-11.0) Red Blood Count 2.45 MIL/MM3 (4.00-5.30) Hemoglobin 8.5 GM/DL (11.6-15.3) Hematocrit 23.9 % (35.0-46.0) Mean Corpuscular Volume 97.5 FL (80.0-100.0) Mean Corpuscular Hemoglobin 34.5 PG (27.0-34.0) Mean Corpuscular Hemoglobin Concent 35.4 % (32.0-36.0) Red Cell Distribution Width 18.6 % (11.6-17.2) Platelet Count 150 TH/MM3 (150-450) Mean Platelet Volume 8.4 FL (7.0-11.0) Neutrophils (%) (Auto) 77.0 % (16.0-70.0) Lymphocytes (%) (Auto) 8.9 % (9.0-44.0) Monocytes (%) (Auto) 13.9 % (0.0-8.0) Eosinophils (%) (Auto) 0.1 % (0.0-4.0) Basophils (%) (Auto) 0.1 % (0.0-2.0) Neutrophils # (Auto) 3.6 TH/MM3 (1.8-7.7) Lymphocytes # (Auto) 0.4 TH/MM3 (1.0-4.8) Monocytes # (Auto) 0.6 TH/MM3 (0-0.9) Eosinophils # (Auto) 0.0 TH/MM3 (0-0.4) Basophils # (Auto) 0.0 TH/MM3 (0-0.2) CBC Comment DIFF FINAL Differential Comment Prothrombin Time 24.1 SEC (9.8-11.6) Prothromb Time International Ratio 2.4 RATIO Blood Urea Nitrogen 15 MG/DL (7-18) Creatinine 0.38 MG/DL (0.50-1.00) Random Glucose 102 MG/DL (74-106) Total Protein 5.9 GM/DL (6.4-8.2) Albumin 2.9 GM/DL (3.4-5.0) Calcium Level 7.7 MG/DL (8.5-10.1) Alkaline Phosphatase 121 U/L (45-117) Aspartate Amino Transf (AST/SGOT) 12 U/L (15-37) Alanine Aminotransferase (ALT/SGPT) 13 U/L (10-53) Total Bilirubin 0.5 MG/DL (0.2-1.0) Sodium Level 140 MEQ/L (136-145) Potassium Level 2.5 MEQ/L (3.5-5.1) Chloride Level 102 MEQ/L (98-107) Carbon Dioxide Level 29.1 MEQ/L (21.0-32.0) Anion Gap 9 MEQ/L (5-15) Estimat Glomerular Filtration Rate 175 ML/MIN (>89) Magnesium Level 2.1 MG/DL (1.5-2.5) . Result Diagram: 03/09/17 0320 03/09/17 0320 Microbiology Microbiology Date/Time Source Procedure Growth Status 03/07/17 08:03 Fluid Pleural Fluid Gram Stain - Final Resulted 03/07/17 08:03 Fluid Pleural Fluid Body Fluid Culture - Preliminary NO GROWTH IN 48 HOURS. Resulted . Imaging Last Impressions Chest X-Ray 03/09/17 0600 Signed Impressions: Service Date/Time: March 04:16 - CONCLUSION: Unchanged bilateral pleural effusions and bibasilar infiltrates. Art Tate Jr., MD Neck CTA 03/07/17 0000 Signed Impressions: Service Date/Time: Tuesday, March 07, 2017 09:49 - CONCLUSION: 1. Aneurysmal dilation of the tubular portion of the ascending aorta with a maximum dimension of 4.6 cm. 2. Atherosclerotic plaquing at the carotid bifurcations. No hemodynamically significant stenosis identified. Stew Lindsay MD Head CTA 03/07/17 Signed Impressions: Service Date/Time: Tuesday, March 07, 2017 09:49 - CONCLUSION: Negative examination. Stew Lindsay MD Head CT 03/07/17 Signed Impressions: Service Date/Time: Tuesday, March 07, 2017 09:43 - CONCLUSION: No evidence of acute intracranial pathology. Chronic ischemic changes as above. Sterling Wolfe MD CT Angiography 03/07/17 Signed Impressions: Service Date/Time: Tuesday, March 07, 2017 09:56 - CONCLUSION: 1. Dense consolidation right lower lobe not present previously characteristic of pneumonia. 2. Reduction in size of the left pleural effusion since the prior exam which has gas bubbles within it probably from chest tube insertion previously. 3. Right pleural effusion and bilateral parenchymal infiltrates also seen in addition to small right pleural effusion. Dyllan Sin MD . Procedures * Intubation/mechanical ventilation * Arterial line placement right upper extremity * Internal jugular central venous catheter placement * Thoracentesis . Assessment and Plan Disease Oriented Problem List: (1) Acute hypoxemic respiratory failure (2) Aortic stenosis (3) CHF (congestive heart failure) (4) Elevated troponin (5) Pleural effusion (6) Myelodysplasia (myelodysplastic syndrome) (7) Hypoalbuminemia (8) COPD (chronic obstructive pulmonary disease) (9) Atrial fibrillation with RVR Symptom Scale: (1) Pain 0-10 Scale: Unable to quantify Comment: Patient is currently unable to answer questions -- cannot quantify or qualify pain. Possible sources of pain include prolonged bedbound status; vascular access catheters; orotracheal intubation; orogastric intubation; Cabrera catheter; restraints; SCDs. . (2) dyspnea 0-10 Scale: Unable to quantify Comment: Dyspnea is multifactorial and likely due to a combination of valvular heart disease, congestive heart failure, COPD, and anemia. Dyspnea is currently managed by mechanical ventilation. Patient is also on midazolam. . (3) Encephalopathy 0-10 Scale: Unable to quantify (patient is sedated with Versed.) Comment: Patient is now off sedation and still now waking up and still not following commands. . Pertinent Non-Medical Issues Psychosocial: Patient had been living with her prior to her hospitalization at the end of December. Since then she has been either in the hospital or retirement facility. Also has an adult daughter who lives locally. Spiritual: Does not belong to any local [place] community. Considers herself to be spiritual. Has declined assisted living administrator visits in the past. Legal: In the past, there've been references to an advance directive. We have never seen such a document. Patient is currently incapacitated. Patient's would be the proxy health care decision-maker. Ethical issues impacting care: No known ethical issues at this time. . Important Contacts * Feliberto Steven (spouse and proxy health care decision-maker) -- [phone] . . Prognosis Patient has severe aortic stenosis with underlying COPD, recurrent pleural effusions, and probable early myelodyspastic syndrome. She was hoping to rehab and get stronger to the point where she would be a candidate for TAVR. Unfortunatley, it does not appear that she will be able to achieve those goals. She has essentially been hospitalized continuously since 12/29 with the exception of two brief SNF stay (01/24-01/31/17 and 02/25/17 - 03/06/17). She is now on life support in intensive care. In spite of her relatively young age, even if she survives this hospitalization , life expectancy is probably in the order of weeks to months. . Code Status: Alternative Code (Code status changed to ALTERNATE CODE (no shock ) per conversation Dr. Sharif had with on 03/08/17). Patient currently does want chest compressions for the patient.) Plan == ALTERNATE CODE -- NO SHOCK YES INTUBATION; YES CHEST COMPRESSIONS; YES CARDIAC DRUGS. Code status was changed to alternate master rigger per conversation between and Dr. Sharif on 03/08/17. == Decision making: Patient is currently incapacitated to make her own health care decisions. It is unclear if she will ever regain capacity to do so. While incapacitated, as we do not have any written designation of health care surrogate, the patient's spouse will be serving as health care proxy. == Goals of medical treatment: During previous palliative care visits, the patient has had aggressive goals. Given that the patient is now back on life support and has not been able on 2 different occasions to get stronger and rehabilitate, her chances for improving to the point of being a candidate for valve surgery are very small. has agreed to Alternate Code status but still desires aggressive care short of resuscitation. == Symptoms ( symptoms are described above) * Pain: Sources of pain noted above. Should patient show signs of pain probably intravenous fentanyl would be the best option at this time. Anticipate it will be challenging to keep this patient comfortable while also minimizing sedation to allow for weaning from ventilator. * Dyspnea: Multiple causes of dyspnea noted above. We'll need to watch for fluid overload. Dyspnea management primarily through ventilator support at this point in time. IV fentanyl and midazolam can be used if needed for apparent air hunger while on vent. No further recommendations at this time. * Encephalopathy: Not able to follow commands in spite of being off sedation. == In my clinical opinion patient would be eligible for hospice services at such time that goals become primarily comfort oriented. == Family meeting planned at approximately 2 PM. == As is very worried about accessing bank accounts once his dies , he plans to see an workers compensation defense attorney. He is afraid that once he allows her to he will have no access to funds and may even lose his house. == Palliative care will continue to follow to assist with symptom management and to further clarify goals of medical treatment as the clinical course evolves. . Time Spent Total Floor Time (mins): 50 (Well over 50 minutes was spent on the floor including chart review; patient examination; above-referenced bedside conference with the patient's , the above-referenced telephone conversations with the and the patient's sister; collaboration with primary nurse; and collaboration with social media intern.) Face to Face Time (mins): 35 >50% Counseling/Coord of Care: Yes Attestation To help prompt me to consider important information that might be impacting today's encounter and assessment, information from prior notes written by myself or my colleagues may have been "brought forward" into today's note. My signature on this note, however, is an attestation that I personally performed the exam, history, and/or decision-making noted today, and, unless otherwise indicated, the interactions with patient, family, and staff as well as the review of records all occurred today. I also attest that the listed assessment and stated plan reflect my best clinical judgment today based on the combination of historical information, prior notes, and today's exam/ interactions. When time spent is documented, it refers only to time spent today by the signer, or if indicated, combined time spent today by collaborating physician/nurse practitioner. . Andrew Sharif MD Mar 09, 2017 20:18
--- NOTE | 2017-03-09 20:33 | HHI.PR ---
Subjective Remarks Intubated for respiratory failure and now on Ventilator support. FIO2 at 50 %. Sedated with versed. CT chest shows bilateral effusions and a RLL Pneumonia. D/W Dr Gamboa and the pt is too Ill for any major procedure and thus will have a Catheter placed by IR Objective Vital Signs Date Time Temp Pulse Resp B/P (MAP) Pulse Ox O2 Delivery O2 Flow Rate FiO2 03/09/17 20:18 16 03/09/17 16:11 99 40 03/09/17 16:00 40 03/09/17 15:00 100.4 90 18 121/77 (92) 99 112/77 (89) 03/09/17 15:00 90 03/09/17 12:00 40 03/09/17 11:38 99 40 03/09/17 11:00 100.3 92 15 114/74 (87) 99 105/50 (68) 03/09/17 11:00 91 03/09/17 08:03 99 40 03/09/17 08:00 40 03/09/17 07:00 100.5 91 19 106/72 (83) 99 121/59 (79) 03/09/17 07:00 91 03/09/17 04:19 99 40 03/09/17 04:00 40 03/09/17 03:04 95 03/09/17 03:00 99.5 91 12 112/67 (82) 100 125/55 (78) 03/09/17 01:32 95 123/55 03/09/17 01:04 100 40 03/09/17 00:00 40 03/08/17 23:00 100.0 95 18 108/64 (79) 99 108/56 (73) 03/08/17 23:00 95 03/08/17 22:05 99 40 I/O 03/08/17 03/08/17 03/08/17 03/09/17 03/09/17 03/09/17 07:00 15:00 23:00 07:00 15:00 23:00 Intake Total 315.5 ml 610 ml 477 ml 614.6 ml 550 ml 171 ml Output Total 350 ml 2300 ml 2715 ml 2000 ml Balance -34.5 ml 610 ml -1823 ml -2100.4 ml 550 ml -1829 ml IV Total 255.5 ml 308 ml 218.6 ml 550 ml 171 ml Tube Feeding 79 ml 396 ml Packed Cells 400 ml Blood Product IV Normal Saline Flush 210 ml Tube Irrigant 60 ml 90 ml Output Urine Total 300 ml 2300 ml 2715 ml 2000 ml Gastric Drainage Total 50 ml 0 ml # Bowel Movements 0 0 0 0 Result Diagram: 03/09/17 0320 03/09/171899 Objective Remarks This averagely built middle-aged white female is on Vent support HEENT: Head normocephalic. Pupils are reactive. Nasal mucosa edematous. Throat is clear . NECK: Supple. No bruits or thyroid enlargement or lymphadenopathy. CHEST: Distant breath sounds over the left chest. There were also crackles at both lung bases . HEART: The heart sounds are irregular, S1 and S2 with a systolic ejection murmur 2/6 at the left sternal border. ABDOMEN: Soft, benign. No masses. EXTREMITIES: Edema 2+ with decreased peripheral pulses. Reflexes 1+ with no gross motor deficits. NEUROLOGIC: sedated RECTAL: Exam is deferred. SKIN: No lesions. Assessment and Plan Assessment and Plan IMPRESSION 1. CHF with acute exacerbation 2. Chronic atrial fibrillation 3. Right basilar infiltrate cannot rule out pneumonia. 4. Severe aortic valve stenosis 5. Acute respiratory failure Plan : 1. Wean FIo2 and keep sat >92. 2. Continue Lasix 40 mg IV bid 3. Duonebs qid. 4. CXR , CBC,BMP in am 5. Chest Tube for Right effusion. 6. Tube feeds at 40 CC 7. Discussed with family. Venessa Chung MD Mar 09, 2017 20:33
[2017-03-09] MEDS: POTASSIUM CHLOR 20 MEQ PREMIX 100 ML IV PRN ×2 (20:53→23:32)
[2017-03-10] VITALS (9 sets, daily range): BP systolic 95–129; BP diastolic 47–72; PULSE 94–104; RESP 14–22; TEMP 100–100.6; O2SAT 98–99
[2017-03-10] MEDS: BETHANECHOL CHL 25 MG TAB PO SCH ×2 (01:32→10:47)
[2017-03-10] MEDS: FUROSEMIDE 40 MG/4 ML VIAL IV PUSH SCH ×3 (01:32→13:43)
[2017-03-10] MEDS: DILTIAZEM INJ 125 MG in SODIUM CHLORIDE 0.9% INJ 100 ML IV PRN (01:45)
[2017-03-10 03:57] LABS: AUTOMATED NEUTROPHIL # 3.7 TH/MM3 (1.8-7.7); BASOPHIL % 0.1 % (0.0-2.0); EOSINOPHIL % 0.2 % (0.0-4.0); HEMATOCRIT 24.9 % (35.0-46.0); HEMOGLOBIN 8.3 GM/DL (11.6-15.3); LYMPH % 9.9 % (9.0-44.0); LYMPHOCYTE # 0.5 TH/MM3 (1.0-4.8); MEAN CELL VOLUME 97.9 FL (80.0-100.0); MEAN CORPUSCULAR HEMOGLOBIN 32.8 PG (27.0-34.0); MEAN CORPUSCULAR HGB CONC 33.5 % (32.0-36.0); MEAN PLATELET VOLUME 8.6 FL (7.0-11.0); MONOCYTE # 0.5 TH/MM3 (0-0.9); NEUT % 79.8 % (16.0-70.0); PLATELET COUNT 116 TH/MM3 (150-450); RED BLOOD COUNT 2.54 MIL/MM3 (4.00-5.30); RED CELL DISTRIBUTION WIDTH 19.4 % (11.6-17.2); WHITE BLOOD COUNT 4.6 TH/MM3 (4.0-11.0)
[2017-03-10] MEDS: ACETAMINOPHEN 325 MG TAB PO PRN ×2 (03:58→09:05)
[2017-03-10 04:04] LABS: INTERNATIONAL NORMALIZED RATIO 1.2 RATIO; PROTHROMBIN TIME - PATIENT 12.6 SEC (9.8-11.6)
[2017-03-10 04:17] LABS: ALBUMIN 2.7 GM/DL (3.4-5.0); ALT (GPT) 13 U/L (10-53); AST (GOT) 17 U/L (15-37); BICARBONATE 27.3 MEQ/L (21.0-32.0); BLOOD UREA NITROGEN 20 MG/DL (7-18); CALCIUM 7.5 MG/DL (8.5-10.1); CHLORIDE 105 MEQ/L (98-107); CREATININE 0.32 MG/DL (0.50-1.00); GLOMERULAR FILTRATION RATE 214 ML/MIN (>89); GLUCOSE,RANDOM 124 MG/DL (74-106); SODIUM (NA) 142 MEQ/L (136-145)
[2017-03-10 04:20] LABS: ALKALINE PHOSPHATASE 103 U/L (45-117); TOTAL BILIRUBIN ADULT 0.5 MG/DL (0.2-1.0); TOTAL PROTEIN 5.5 GM/DL (6.4-8.2)
[2017-03-10] MEDS: POTASSIUM CHLOR 40 MEQ PREMIX 100 ML IV-CENTRAL PRN ×2 (04:28→06:39)
[2017-03-10] MEDS: DILTIAZEM HCL 30 MG TAB PO SCH ×2 (05:25→13:40)
--- NOTE | 2017-03-10 07:51 | PD.CARD.PN ---
Subjective Subjective Remarks RN at bedside. Remains intubated and sedated. Heart rate controlled, cardizem drip is being weaned and started on oral Cardizem. Prior consulted for pigtail catheter on the right stay. Palliative care to have family meeting this afternoon. Objective Medications Current Medications Medications (Trade) Dose Ordered Sig/Armin Route Start Time Stop Time Status Last Admin (Lanoxin Inj) 0.125 mg DAILY IV PUSH 03/06/17 09:00 03/09/17 09:23 Diltiazem HCl 125 mg/Sodium Chloride 125 ml @ 5 mls/hr TITRATE PRN IV 03/06/17 08:45 03/10/17 01:45 (NS Flush) 2 ml BID IV FLUSH 03/06/17 21:00 03/09/17 19:48 (NS Flush) 2 ml UNSCH PRN IV FLUSH 03/06/17 10:00 (Albuterol Neb) 2.5 mg Q2HR NEB PRN INH 03/06/17 10:00 03/07/17 05:15 (Urecholine) 25 mg Q8H PO 03/06/17 11:00 03/10/17 01:32 (Ferrous Sulfate) 325 mg BID PO 03/06/17 21:00 03/09/17 19:48 (Mag-Ox) 400 mg DAILY@1100,1900 PO 03/06/17 19:00 03/09/17 17:52 (Percocet 10-325 Mg) 1 tab Q6H PRN PO 03/06/17 10:00 03/06/17 15:31 (Flomax) 0.4 mg DAILY PO 03/07/17 09:00 Future Hold 03/09/17 09:23 (Spiriva Inh) 18 mcg DAILY INH 03/07/17 09:00 Future Hold (Coumadin) 4 mg DAILY@1600 PO 03/06/17 16:00 Future Hold 03/07/17 17:12 (Tylenol) 650 mg Q4H PRN PO 03/06/17 10:15 03/10/17 03:58 (Elvie-Colace) 1 tab BID PO 03/06/17 21:00 03/09/17 19:48 (Milk Of Magnesia Liq) 30 ml Q12H PRN PO 03/06/17 10:15 (Senokot) 17.2 mg Q12H PRN PO 03/06/17 10:15 (Dulcolax Supp) 10 mg DAILY PRN RECTAL 03/06/17 10:15 (Lactulose Liq) 30 ml DAILY PRN PO 03/06/17 10:15 (KCl) 20 meq DAILY PO 03/06/17 11:00 03/08/17 09:13 Pharmacy Profile Note 0 ml @ 0 mls/hr UNSCH OTHER 03/06/17 10:45 (Duoneb Neb) 1 ampule QID NEB NEB 03/06/17 16:00 03/09/17 21:05 (Cardizem) 30 mg Q6HR PO 03/06/17 18:00 03/10/17 05:25 Phenylephrine HCl 160 mg/Dextrose 500 ml @ 7.5 mls/hr TITRATE PRN IV 03/07/17 08:15 03/07/17 11:36 (Brethine Inj) 1 mg UNSCH PRN SQ 03/07/17 08:15 (Peridex 0.12% Liq) 15 ml BID@08,20 MT 03/07/17 20:00 03/09/17 19:49 Potassium Chloride 100 ml @ 50 mls/hr Q2H PRN IV-CENTRAL 03/07/17 08:15 03/10/17 06:39 Potassium Chloride 100 ml @ 50 mls/hr Q2H PRN IV 03/07/17 08:15 (K-Lyte Cl Eff) 50 meq UNSCH PRN PO 03/07/17 08:15 Potassium Chloride 100 ml @ 25 mls/hr UNSCH PRN IV-CENTRAL 03/07/17 08:15 Potassium Chloride 100 ml @ 50 mls/hr Q2H PRN IV 03/07/17 08:15 03/09/17 23:32 Magnesium Sulfate 4 gm/Sodium Chloride 100 ml @ 50 mls/hr UNSCH PRN IV 03/07/17 08:15 (Mag-Ox) 800 mg UNSCH PRN PO 03/07/17 08:15 Magnesium Sulfate 2 gm/Sodium Chloride 100 ml @ 50 mls/hr UNSCH PRN IV 03/07/17 08:15 (K-Phos) 2,000 mg Q4H PRN PO 03/07/17 08:15 Sodium Phosphate 30 mmol/Sodium Chloride 250 ml @ 42 mls/hr UNSCH PRN IV 03/07/17 08:15 (K-Phos) 2,000 mg UNSCH PRN PO/TUBE 03/07/17 08:15 Potassium Phosphate 30 mmol/ Sodium Chloride 260 ml @ 42 mls/hr UNSCH PRN IV 03/07/17 08:15 Midazolam HCl 100 ml @ 2 mls/hr TITRATE PRN IV 03/07/17 09:00 03/08/17 04:36 (Cardizem Inj) 25 mg UNSCH IV PUSH 03/07/17 12:00 (Lasix Inj) 40 mg Q6H IV PUSH 03/08/17 13:30 03/10/17 01:32 (Beneprotein Powder) 2 pack TID G-TUBE 03/08/17 13:30 03/09/17 17:52 Vital Signs / I&O Vital Signs Date Time Temp Pulse Resp B/P (MAP) Pulse Ox O2 Delivery O2 Flow Rate FiO2 03/10/17 04:48 17 03/10/17 04:39 98 40 03/10/17 04:00 40 03/10/17 03:00 100.6 104 17 122/68 (86) 99 129/55 (79) 03/10/17 03:00 104 03/10/17 01:45 102 121/56 03/10/17 01:05 99 40 03/10/17 00:00 40 03/09/17 23:00 106 03/09/17 23:00 98.7 100 16 115/70 (85) 99 114/66 (82) 03/09/17 20:40 98 40 03/09/17 20:00 40 03/09/17 19:00 103 03/09/17 19:00 99.5 103 15 114/69 (84) 98 129/55 (79) 03/09/17 16:11 99 40 03/09/17 16:00 40 03/09/17 15:00 100.4 90 18 121/77 (92) 99 112/77 (89) 03/09/17 15:00 90 03/09/17 12:00 40 03/09/17 11:38 99 40 03/09/17 11:00 100.3 92 15 114/74 (87) 99 105/50 (68) 03/09/17 11:00 91 03/09/17 08:03 99 40 03/09/17 08:00 40 I/O 03/09/17 03/09/17 03/09/17 03/10/17 03/10/17 03/10/17 07:00 15:00 23:00 07:00 15:00 23:00 Intake Total 614.6 ml 550 ml 271 ml 897.6 ml Output Total 2715 ml 2000 ml 2500 ml Balance -2100.4 ml 550 ml -1729 ml -1602.4 ml IV Total 218.6 ml 550 ml 271 ml 315.6 ml Tube Feeding 396 ml 582 ml Output Urine Total 2715 ml 2000 ml 2500 ml # Bowel Movements 0 0 1 Physical Exam GENERAL: Well-developed well-nourished. NECK: No carotid bruits. No JVD. CARDIOVASCULAR: Irregular, controlled rate and irregular rhythm. 3/6 systolic ejection murmur appreciated. RESPIRATORY: Diminished breath sounds bilateral bases. MUSCULOSKELETAL: No clubbing or cyanosis. No edema. NEUROLOGICAL: Intubated, sedated. Laboratory Laboratory Tests Test 03/09/17 19:00 03/10/17 03:20 Potassium Level 3.4 MEQ/L 3.2 MEQ/L Magnesium Level 2.7 MG/DL White Blood Count 4.6 TH/MM3 Red Blood Count 2.54 MIL/MM3 Hemoglobin 8.3 GM/DL Hematocrit 24.9 % Mean Corpuscular Volume 97.9 FL Mean Corpuscular Hemoglobin 32.8 PG Mean Corpuscular Hemoglobin Concent 33.5 % Red Cell Distribution Width 19.4 % Platelet Count 116 TH/MM3 Mean Platelet Volume 8.6 FL Neutrophils (%) (Auto) 79.8 % Lymphocytes (%) (Auto) 9.9 % Monocytes (%) (Auto) 10.0 % Eosinophils (%) (Auto) 0.2 % Basophils (%) (Auto) 0.1 % Neutrophils # (Auto) 3.7 TH/MM3 Lymphocytes # (Auto) 0.5 TH/MM3 Monocytes # (Auto) 0.5 TH/MM3 Eosinophils # (Auto) 0.0 TH/MM3 Basophils # (Auto) 0.0 TH/MM3 CBC Comment DIFF FINAL Differential Comment Prothrombin Time 12.6 SEC Prothromb Time International Ratio 1.2 RATIO Blood Urea Nitrogen 20 MG/DL Creatinine 0.32 MG/DL Random Glucose 124 MG/DL Total Protein 5.5 GM/DL Albumin 2.7 GM/DL Calcium Level 7.5 MG/DL Alkaline Phosphatase 103 U/L Aspartate Amino Transf (AST/SGOT) 17 U/L Alanine Aminotransferase (ALT/SGPT) 13 U/L Total Bilirubin 0.5 MG/DL Sodium Level 142 MEQ/L Chloride Level 105 MEQ/L Carbon Dioxide Level 27.3 MEQ/L Anion Gap 10 MEQ/L Estimat Glomerular Filtration Rate 214 ML/MIN Imaging Last Impressions Chest X-Ray 03/09/17 0600 Signed Impressions: Service Date/Time: March 04:16 - CONCLUSION: Unchanged bilateral pleural effusions and bibasilar infiltrates. Art Tate Jr., MD Neck CTA 03/07/17 0000 Signed Impressions: Service Date/Time: Tuesday, March 07, 2017 09:49 - CONCLUSION: 1. Aneurysmal dilation of the tubular portion of the ascending aorta with a maximum dimension of 4.6 cm. 2. Atherosclerotic plaquing at the carotid bifurcations. No hemodynamically significant stenosis identified. Stew Lindsay MD Head CTA 03/07/17 0000 Signed Impressions: Service Date/Time: Tuesday, March 07, 2017 09:49 - CONCLUSION: Negative examination. Stew Lindsay MD Head CT 03/07/17 0000 Signed Impressions: Service Date/Time: Tuesday, March 07, 2017 09:43 - CONCLUSION: No evidence of acute intracranial pathology. Chronic ischemic changes as above. Sterling Wolfe MD CT Angiography 03/07/17 0000 Signed Impressions: Service Date/Time: Tuesday, March 07, 2017 09:56 - CONCLUSION: 1. Dense consolidation right lower lobe not present previously characteristic of pneumonia. 2. Reduction in size of the left pleural effusion since the prior exam which has gas bubbles within it probably from chest tube insertion previously. 3. Right pleural effusion and bilateral parenchymal infiltrates also seen in addition to small right pleural effusion. Dyllan Sin MD Assessment and Plan Problem List: (1) significant aortic stenosis, CHF (2) moderately severe COPD (3) dyspnea (4) Pulmonary HTN ICD Codes: I27.20 - Pulmonary hypertension, unspecified (5) Atrial fibrillation with RVR ICD Codes: I48.91 - Unspecified atrial fibrillation Status: Chronic (6) CHF (congestive heart failure) ICD Codes: I50.9 - Heart failure, unspecified Assessment and Plan 56 yo F with COPD, diastolic CHF, severe aortic stenosis and pancytopenia admitted for acute dyspnea while residing at rehab; found to be in rapid afib. afib: rate controlled on Cardizem and digoxin. Warfarin on hold with anemia. aortic stenosis: severe stenosis with moderate regurgitation, preserved ejection fraction. Balloon valvuloplasty would be high risk. Not currently TAVR or AVR candidate unless meaningful recovery and rehab. Diastolic CHF: Secondary to valvular disease as above. EF 50-55%. +bilateral effusion L>R, S/P L thoracentesis 03/08. Continue IV diuresis. Acute anemia: Hemoglobin trended down to 6.5, improved status post transfusion 1 unit PRBCs. Warfarin on hold. Acute respiratory failure: Secondary to pleural effusions and pneumonia. Critical Care, CT surgery, and pulmonology on board. For pigtail catheter right chest with IR. Antibiotics per primary team. Problem Qualifiers (1) CHF (congestive heart failure): Qualified Codes: I50.9 - Heart failure, unspecified Demetrio Rm Mar 10, 2017 07:51
[2017-03-10] MEDS: RESP: ALBUTEROL 2.5 MG/IPRATROPIUM 0.5 MG NEB (SCH) NEB ×2 (07:53→11:20)
[2017-03-10] MEDS: CHLORHEXIDINE 0.12% (ORAL KIT) 15 ML CUP MT SCH (08:06)
[2017-03-10] MEDS: BENEPROTEIN POWDER 1 PACK G-TUBE SCH ×2 (09:00→13:00)
[2017-03-10] MEDS: DOCUSATE SODIUM 50 MG/SENNA 8.6 MG TAB PO SCH (09:04)
[2017-03-10] MEDS: DIGOXIN 0.5 MG/2 ML VIAL IV PUSH SCH (09:04)
[2017-03-10] MEDS: SODIUM CHLORIDE 0.9% FLUSH 10 ML FLUSH IV FLUSH SCH (09:05)
[2017-03-10] MEDS: FERROUS SULFATE 325 MG (65 MG ELEMENTAL IRON) TAB PO SCH (09:06)
[2017-03-10] MEDS ORDERED: POTASSIUM CHLORIDE 20 MEQ PWD PACKET OG-TUBE SCH ×2 (10:00→11:00)
[2017-03-10] MEDS: MAGNESIUM OXIDE 400 MG TAB PO SCH (10:47)
[2017-03-10] MEDS: MIDAZOLAM 100 MG/100 ML INJ 100 ML IV PRN (11:30)
--- NOTE | 2017-03-10 13:20 | HHI.FPPN ---
Subjective Remarks Seen and examined around 0840. Patient sedated. Per RN report during "sedation vacation" yesterday, she was more alert and responded to requests and yes/no questions. No events overnight. (Heriberto Mancuso MD) Objective Vitals Vital Signs Date Time Temp Pulse Resp B/P (MAP) Pulse Ox O2 Delivery O2 Flow Rate FiO2 03/10/17 13:09 99 40 03/10/17 12:00 40 03/10/17 11:21 99 40 03/10/17 11:00 100.0 97 15 95/47 (63) 99 101/64 (76) 03/10/17 11:00 94 03/10/17 08:00 40 03/10/17 07:53 98 40 03/10/17 07:00 100.6 95 14 119/72 (88) 99 106/49 (68) 03/10/17 07:00 95 03/10/17 04:48 17 03/10/17 04:39 98 40 03/10/17 04:00 40 03/10/17 03:00 100.6 104 17 122/68 (86) 99 129/55 (79) 03/10/17 03:00 104 03/10/17 01:45 102 121/56 03/10/17 01:05 99 40 03/10/17 00:00 40 03/09/17 23:00 106 03/09/17 23:00 98.7 100 16 115/70 (85) 99 114/66 (82) 03/09/17 20:40 98 40 03/09/17 20:00 40 03/09/17 19:00 103 03/09/17 19:00 99.5 103 15 114/69 (84) 98 129/55 (79) 03/09/17 16:11 99 40 03/09/17 16:00 40 03/09/17 15:00 100.4 90 18 121/77 (92) 99 112/77 (89) 03/09/17 15:00 90 I/O 03/09/17 03/09/17 03/09/17 03/10/17 03/10/17 03/10/17 07:00 15:00 23:00 07:00 15:00 23:00 Intake Total 614.6 ml 550 ml 271 ml 897.6 ml 100 ml Output Total 2715 ml 2000 ml 2500 ml Balance -2100.4 ml 550 ml -1729 ml -1602.4 ml 100 ml IV Total 218.6 ml 550 ml 271 ml 315.6 ml 100 ml Tube Feeding 396 ml 582 ml Output Urine Total 2715 ml 2000 ml 2500 ml # Bowel Movements 0 0 1 (Heriberto Mancuso MD) Result Diagram: 03/10/17 0320 03/10/17 0320 Imaging Last Impressions Chest X-Ray 03/09/17 0600 Signed Impressions: Service Date/Time: March 04:16 - CONCLUSION: Unchanged bilateral pleural effusions and bibasilar infiltrates. Art Tate Jr., MD Neck CTA 03/07/17 0000 Signed Impressions: Service Date/Time: Tuesday, March 07, 2017 09:49 - CONCLUSION: 1. Aneurysmal dilation of the tubular portion of the ascending aorta with a maximum dimension of 4.6 cm. 2. Atherosclerotic plaquing at the carotid bifurcations. No hemodynamically significant stenosis identified. Stew Lindsay MD Head CTA 03/07/17 0000 Signed Impressions: Service Date/Time: Tuesday, March 07, 2017 09:49 - CONCLUSION: Negative examination. Stew Lindsay MD Head CT 03/07/17 0000 Signed Impressions: Service Date/Time: Tuesday, March 07, 2017 09:43 - CONCLUSION: No evidence of acute intracranial pathology. Chronic ischemic changes as above. Sterling Wolfe MD CT Angiography 03/07/17 0000 Signed Impressions: Service Date/Time: Tuesday, March 07, 2017 09:56 - CONCLUSION: 1. Dense consolidation right lower lobe not present previously characteristic of pneumonia. 2. Reduction in size of the left pleural effusion since the prior exam which has gas bubbles within it probably from chest tube insertion previously. 3. Right pleural effusion and bilateral parenchymal infiltrates also seen in addition to small right pleural effusion. Dyllan Sin MD Objective Remarks GEN: Sedated, intubated, critically ill CV: Normal rate, irregularly irregular rhythm, harsh grating systolic murmur heard best at RUSB LUNGS: Coarse breath sounds bilaterally, diminished on L side but overall stable from prior exams ABD: Soft, mildly distended NEURO: Obtunded from sedation. opens eyes and moves extremities when sedation lifted. Procedures 03/07/17 - Thoracentesis, ET intubation, central venous line placement, arterial line placement Medications and IVs Current Medications Medications (Trade) Dose Ordered Sig/Armin Route Start Time Stop Time Status Last Admin (Lanoxin Inj) 0.125 mg DAILY IV PUSH 03/06/17 09:00 03/10/17 09:04 Diltiazem HCl 125 mg/Sodium Chloride 125 ml @ 5 mls/hr TITRATE PRN IV 03/06/17 08:45 03/10/17 01:45 (NS Flush) 2 ml BID IV FLUSH 03/06/17 21:00 03/10/17 09:05 (NS Flush) 2 ml UNSCH PRN IV FLUSH 03/06/17 10:00 (Albuterol Neb) 2.5 mg Q2HR NEB PRN INH 03/06/17 10:00 03/07/17 05:15 (Urecholine) 25 mg Q8H PO 03/06/17 11:00 03/10/17 10:47 (Ferrous Sulfate) 325 mg BID PO 03/06/17 21:00 03/10/17 09:06 (Mag-Ox) 400 mg DAILY@1100,1900 PO 03/06/17 19:00 03/10/17 10:47 (Percocet 10-325 Mg) 1 tab Q6H PRN PO 03/06/17 10:00 03/06/17 15:31 (Flomax) 0.4 mg DAILY PO 03/07/17 09:00 Future Hold 03/09/17 09:23 (Spiriva Inh) 18 mcg DAILY INH 03/07/17 09:00 Future Hold (Coumadin) 4 mg DAILY@1600 PO 03/06/17 16:00 Future Hold 03/07/17 17:12 (Tylenol) 650 mg Q4H PRN PO 03/06/17 10:15 03/10/17 09:05 (Elvie-Colace) 1 tab BID PO 03/06/17 21:00 03/10/17 09:04 (Milk Of Magnesia Liq) 30 ml Q12H PRN PO 03/06/17 10:15 (Senokot) 17.2 mg Q12H PRN PO 03/06/17 10:15 (Dulcolax Supp) 10 mg DAILY PRN RECTAL 03/06/17 10:15 (Lactulose Liq) 30 ml DAILY PRN PO 03/06/17 10:15 Pharmacy Profile Note 0 ml @ 0 mls/hr UNSCH OTHER 03/06/17 10:45 (Duoneb Neb) 1 ampule QID NEB NEB 03/06/17 16:00 03/10/17 11:20 (Cardizem) 30 mg Q6HR PO 03/06/17 18:00 03/10/17 05:25 Phenylephrine HCl 160 mg/Dextrose 500 ml @ 7.5 mls/hr TITRATE PRN IV 03/07/17 08:15 03/07/17 11:36 (Brethine Inj) 1 mg UNSCH PRN SQ 03/07/17 08:15 (Peridex 0.12% Liq) 15 ml BID@08,20 MT 03/07/17 20:00 03/10/17 08:06 Potassium Chloride 100 ml @ 50 mls/hr Q2H PRN IV-CENTRAL 03/07/17 08:15 03/10/17 06:39 Potassium Chloride 100 ml @ 50 mls/hr Q2H PRN IV 03/07/17 08:15 (K-Lyte Cl Eff) 50 meq UNSCH PRN PO 03/07/17 08:15 Potassium Chloride 100 ml @ 25 mls/hr UNSCH PRN IV-CENTRAL 03/07/17 08:15 Potassium Chloride 100 ml @ 50 mls/hr Q2H PRN IV 03/07/17 08:15 03/09/17 23:32 Magnesium Sulfate 4 gm/Sodium Chloride 100 ml @ 50 mls/hr UNSCH PRN IV 03/07/17 08:15 (Mag-Ox) 800 mg UNSCH PRN PO 03/07/17 08:15 Magnesium Sulfate 2 gm/Sodium Chloride 100 ml @ 50 mls/hr UNSCH PRN IV 03/07/17 08:15 (K-Phos) 2,000 mg Q4H PRN PO 03/07/17 08:15 Sodium Phosphate 30 mmol/Sodium Chloride 250 ml @ 42 mls/hr UNSCH PRN IV 03/07/17 08:15 (K-Phos) 2,000 mg UNSCH PRN PO/TUBE 03/07/17 08:15 Potassium Phosphate 30 mmol/ Sodium Chloride 260 ml @ 42 mls/hr UNSCH PRN IV 03/07/17 08:15 Midazolam HCl 100 ml @ 2 mls/hr TITRATE PRN IV 03/07/17 09:00 03/10/17 11:30 (Cardizem Inj) 25 mg UNSCH IV PUSH 03/07/17 12:00 (Lasix Inj) 40 mg Q6H IV PUSH 03/08/17 13:30 03/10/17 08:08 (Beneprotein Powder) 2 pack TID G-TUBE 03/08/17 13:30 03/10/17 09:00 (KCl Powder) 20 meq DAILY OG-TUBE 03/10/17 11:00 03/10/17 10:39 (Heriberto Mancuso MD) A/P Assessment and Plan Mrs. Steven is a 56yo white female with a PMH of COPD, CHF, and atrial fibrillation now with: (Heriberto Mancuso MD) Attending Attestation Patient seen and examined. Case reviewed and discussed with the resident team. Agree with plan of care as discussed with me and documented in the resident note. extremely ill palliative is meeting with her family (Cecy Hays MD) Problem List: (1) Cardiogenic shock ICD Codes: R57.0 - Cardiogenic shock Status: Acute Plan: Patient entered cardiogenic shock on 03/07/17 Etiology = severe aortic stenosis plus other valvular abnormalities Echocardiogram 03/06/17 The left ventricular systolic function is low normal with an estimated ejection fraction in the range of 50-55%. Normal left ventricular size. Mild concentric left ventricular hypertrophy. No regional wall motion abnormalities are present. Moderate aortic valve regurgitation. Severe aortic valve stenosis. Aortic valve area is 0.78 cm. Aortic valve mean gradient is 45 mmHg. There is estimated moderate pulmonary hypertension present (range 50-60 mmHg) -Critical care consulted, appreciate assistance -Continued digoxin 0.125 mg by NG daily -diltiazem drip -phenylephrine infusion for goal map > 65 mmhg. -pursue forced diuresis despite shock due to volume overload from aortic stenosis -Palliative care consulted, appreciate assistance -Family desiring continued aggressive medical management -Family meeting today (03/10) at ~1400 to review case and clarify goals of care -See below for clarification of code status Had extended discussion with decision maker () at 1440 on 03/08/17. clarified code status: alternative code, ACLS drugs + intubation + chest compressions all okay, but not shock treatment. We discussed that neither CPR nor ACLS drugs nor shock treatment would in any way fix her heart if she were to enter cardiac arrest and that if she did achieve ROSC she would very likely code again and again. states that he wants "everything done that a tuber operator could do" but that shock would just "overstimulate her heart" so he wouldn't want to put her through that. Again reiterated that chest compressions would essentially have the same effect and that with her valve issue it would be like "trying to push all her blood through a pinhole" and would put her through a lot of stress including probable rib fracture. expressed understanding of all points of discussion, but for now is hopeful and wishes code status to be as documented above. He would like to be notified MEG of any cardiac arrest: Phone = [phone], his name is Feliebrto Steven (2) Respiratory failure with hypoxia and hypercapnia ICD Codes: J96.91 - Respiratory failure, unspecified with hypoxia; J96.92 - Respiratory failure, unspecified with hypercapnia Plan: Etiology likely combination of cardiogenic shock and pleural effusion in patient with underlying CHF, COPD Valvular disease as noted above -Critical care consulted, appreciate assistance -Continue intubation with mechanical ventilation -Wean vent once more hemodynamically stable (3) Macrocytic anemia ICD Codes: D53.9 - Nutritional anemia, unspecified Plan: Hbg upon admission was 7.8 with MCV of 102.8. Hgb < 7 on 03/08/17 Outpatient work-up including BMB negative (previously had pancytopenia) MDS suspected -Check post-transfusion H/H -Transfuse for Hgb < 8.0 (4) Pleural effusion ICD Codes: J90 - Pleural effusion, not elsewhere classified Status: Chronic Plan: Likely related to valvular heart disease, possibly also due to malignancy given history of pancytopenia, although extensive work-up thus far negative -Consulted [facility] Coordinator Dr. Chung, appreciate input -Pt had thoracentesis on 03/06/17 -Continue management per [facility] recs as above -Potentially will perform chest tube placement, depends on results of family discussion on 1/5 PM (5) Atrial fibrillation with RVR ICD Codes: I48.91 - Unspecified atrial fibrillation Status: Chronic Plan: Now rate-controlled. on diltiazem. can consider changing to po/NG -Continue management as above (see "Cardiogenic shock") (6) COPD (chronic obstructive pulmonary disease) ICD Codes: J44.9 - Chronic obstructive pulmonary disease, unspecified Status: Chronic Plan: Patient with history COPD presenting the ED with shortness of breath, which can be due to multiple etiologies. Patient felt better after being given nebs in the ED. Patient has a previous hx of respiratory failure and intubation and is back intubated now -Manage respiratory failure as above -Duonebs QID, albuterol PRN for SOB/wheeze -Unlikely to be pneumonia (afebrile, no leukocytosis); will D/C antibiotics at this time (7) CHF (congestive heart failure) ICD Codes: I50.9 - Heart failure, unspecified Plan: Patient previously diagnosed with CHF. BNP on admission was 388. Echo findings as above anatomically her heart is functioning very poorly with her serious and compounded valvular problems. unfortunately, this is not fixable with medicines (8) Urinary retention ICD Codes: R33.9 - Retention of urine, unspecified Status: Chronic Plan: * will hold her Flomax as she has a catheter now (9) Elevated alkaline phosphatase level ICD Codes: R74.8 - Abnormal levels of other serum enzymes Status: Resolved Plan: Alkaline phosphatase elevated at admission at 240. This was also elevated at previous admissions, but not as high. AST, ALT, and bilirubin are WNL. Since this is the case, may be related to bone process. Malignancy vs recent fracture. * Consider fractionating if any doubt about this. Pagets disease is a possibility as well but she is so ill now that this can be evaluated later (10) FEN Status: Acute Plan: Fluids: (aggressively diuresing) Electrolytes: monitor and replete as needed on protocol. low K with all her diuresing but mag is fine Nutrition: Via tube DVT Prophylaxis: SCDs; on Coumadin, was not therapeutic; holding for now due to anemia GI Prophylaxis: Protonix Fever/Pain management: on sedation now CODE STATUS: Alternate code = chest compressions + drugs + intubation. NO shock. (Heriberto Mancuso MD) Problem Qualifiers (1) Respiratory failure with hypoxia and hypercapnia: Qualified Codes: J96.01 - Acute respiratory failure with hypoxia; J96.02 - Acute respiratory failure with hypercapnia (2) COPD (chronic obstructive pulmonary disease): Qualified Codes: J44.9 - Chronic obstructive pulmonary disease, unspecified (3) CHF (congestive heart failure): Qualified Codes: I50.9 - Heart failure, unspecified Heriberto Mancuso MD Mar 10, 2017 13:20 Cecy Hays MD Mar 11, 2017 15:36
[2017-03-10] MEDS ORDERED: LORazepam 2 MG/ML VIAL IV PUSH ONE ×2 (15:15→15:30)
[2017-03-10] MEDS ORDERED: MIDAZOLAM 100 MG/100 ML INJ 100 ML IV PRN ×2 (15:15→15:45)
[2017-03-10] MEDS ORDERED: HYDROmorphone HCL PF 2 MG/ML VIAL IV PUSH ONE ×2 (15:15→15:30)
[2017-03-10] MEDS ORDERED: HYDROmorphone HCL PF 2 MG/ML VIAL IV PUSH PRN ×2 (15:45)
[2017-03-10] MEDS ORDERED: FUROSEMIDE 20 MG/2 ML VIAL IV PUSH PRN (15:45)
[2017-03-10] MEDS ORDERED: BISACODYL 10 MG SUPP RECTAL PRN (15:45)
[2017-03-10] MEDS ORDERED: LORazepam 2 MG/ML VIAL IV PUSH PRN ×2 (15:45)
[2017-03-10] MEDS ORDERED: ACETAMINOPHEN 650 MG SUPP RECTAL PRN (15:45)
[2017-03-10] MEDS ORDERED: HYDROmorphone HCL PF 2 MG/ML VIAL IV PUSH SCH (16:00)
--- NOTE | 2017-03-10 20:44 | HHI.HCPN ---
Reason for visit a. To assist with evaluation and management of symptoms including: dyspnea; encephalopathy b. To assist medical decision maker(s) with: better understanding of current medical conditions; weighing benefits/burdens of medical treatment options; making medical treatment decisions. . Subjective/Interval History No significant change overnight. Patient remains intubated, mechanically ventilated, in the cardiac ICU. While off sedation earlier this morning, she was able to follow a few basic commands per nursing. However off sedation was more difficult for her to be ventilated. She was placed back on her midazolam drip. She remains on pressor support. . Family/friend interactions I met with the patient's , daughter, and sister, per the 's request. We spoke in the consultation room for approximately 50 minutes. Palliative care Luli PURVIS was also present. I reviewed the patient's medical history. I specifically at dressed the primary problems causing her poor prognosis including aortic stenosis, COPD, recurrent pleural effusions, and her myelodysplasia.. We reviewed her trajectory of illness over the last several months. The family indicated that they knew she has been failing for up to 3 years. Family also reported her reluctance to seek any medical help or go to the hospital. We discussed likely trajectories if we would continue with aggressive care versus transitioning to comfort measures only. I attempted to answer all questions. The , daughter, and sister all agreed following this conversation that the patient would want to forego further aggressive care, have life support withdrawn, and transition to comfort measures only. We discussed timing of this and family felt that they would like to go forward today. . Advance Directives Living Will: Never completed Health Care Surrogate: Never completed Durable Power of Wrapper And Preserver: Never completed Advance Directive Specifics Date completed: Not aware of any written advance directive. . Health Care Surrogate(s): Not aware of any written designation of health care surrogate. . Documented care wishes: No known written documentation of health care preferences/wishes. . Objective Vital Signs Date Time Temp Pulse Resp B/P (MAP) Pulse Ox O2 Delivery O2 Flow Rate FiO2 03/10/17 16:29 Room Air 21 03/10/17 15:00 100.5 101 22 109/65 (80) 98 98/61 (73) 03/10/17 13:09 99 40 03/10/17 12:00 40 03/10/17 11:21 99 40 03/10/17 11:00 100.0 97 15 95/47 (63) 99 101/64 (76) 03/10/17 11:00 94 03/10/17 08:00 40 03/10/17 07:53 98 40 03/10/17 07:00 100.6 95 14 119/72 (88) 99 106/49 (68) 03/10/17 07:00 95 03/10/17 04:48 17 03/10/17 04:39 98 40 03/10/17 04:00 40 03/10/17 03:00 100.6 104 17 122/68 (86) 99 129/55 (79) 03/10/17 03:00 104 03/10/17 01:45 102 121/56 03/10/17 01:05 99 40 03/10/17 00:00 40 03/09/17 23:00 106 03/09/17 23:00 98.7 100 16 115/70 (85) 99 114/66 (82) 03/09/17 20:40 98 40 . Physical Exam CONSTITUTIONAL/GENERAL: This is an adequately nourished patient, pale, mechanically ventilated in a coronary ICU bed. She is unable to follow commands , but will intermittently open eyes to stimulation. TUBES/LINES/DRAINS: Arterial line right upper extremity; right in internal jugular central line; peripheral IVs; Cabrera catheter; SCDs; orotracheal tube; orogastric tube. SKIN: No jaundice. Diffuse ecchymoses on upper extremities and across chest. No wounds seen anteriorly. Skin temperature warm. Not diaphoretic. EYES: Pupils equal, dilated and reactive. . No scleral icterus. No injection or drainage. Fundi not examined. ENT: Unable to evaluate hearing. Nose without bleeding or purulent drainage. Throat without visible erythema, exudates, masses, or lesions but challenging to evaluate due to intubations. NECK: Trachea midline. CARDIOVASCULAR: Irregular rate and rhythm without gallops, or rubs. 3/6 systolic murmur heard at right sternal border. No JVD. RESPIRATORY/CHEST: Symmetric, unlabored respirations. Breath sounds equal bilaterally but greatly diminished at both bases. Scattered faint ronchi without wheezes. GASTROINTESTINAL: Abdomen soft, non-tender, nondistended. No hepato-splenomegaly , or palpable masses. No guarding. Bowel sounds present. GENITOURINARY: Without palpable bladder distension. Cabrera catheter in place. MUSCULOSKELETAL: Extremities without clubbing, cyanosis. Edema noted in ankles. No mottling. LYMPHATICS: Not examined NEUROLOGICAL: Eyes open intermittently to stimulation. Unable to follow commands. Moves all extremities . PSYCHIATRIC: Unable to assess due to level of responsiveness. . Diagnostic Tests Laboratory Laboratory Tests Test 03/07/17 20:35 03/08/17 04:55 03/08/17 19:44 03/09/17 03:20 Nasal Screen MRSA (PCR) MRSA NOT DETECTED (NOT White Blood Count 5.8 TH/MM3 (4.0-11.0) 4.6 TH/MM3 (4.0-11.0) Red Blood Count 1.93 MIL/MM3 (4.00-5.30) 2.45 MIL/MM3 (4.00-5.30) Hemoglobin 6.5 GM/DL (11.6-15.3) 8.5 GM/DL (11.6-15.3) Hematocrit 19.1 % (35.0-46.0) 23.9 % (35.0-46.0) Mean Corpuscular Volume 98.8 FL (80.0-100.0) 97.5 FL (80.0-100.0) Mean Corpuscular Hemoglobin 33.5 PG (27.0-34.0) 34.5 PG (27.0-34.0) Mean Corpuscular Hemoglobin Concent 33.9 % (32.0-36.0) 35.4 % (32.0-36.0) Red Cell Distribution Width 21.4 % (11.6-17.2) 18.6 % (11.6-17.2) Platelet Count 199 TH/MM3 (150-450) 150 TH/MM3 (150-450) Mean Platelet Volume 8.2 FL (7.0-11.0) 8.4 FL (7.0-11.0) Neutrophils (%) (Auto) 82.8 % (16.0-70.0) 77.0 % (16.0-70.0) Lymphocytes (%) (Auto) 4.4 % (9.0-44.0) 8.9 % (9.0-44.0) Monocytes (%) (Auto) 12.2 % (0.0-8.0) 13.9 % (0.0-8.0) Eosinophils (%) (Auto) 0.0 % (0.0-4.0) 0.1 % (0.0-4.0) Basophils (%) (Auto) 0.6 % (0.0-2.0) 0.1 % (0.0-2.0) Neutrophils # (Auto) 4.8 TH/MM3 (1.8-7.7) 3.6 TH/MM3 (1.8-7.7) Lymphocytes # (Auto) 0.3 TH/MM3 (1.0-4.8) 0.4 TH/MM3 (1.0-4.8) Monocytes # (Auto) 0.7 TH/MM3 (0-0.9) 0.6 TH/MM3 (0-0.9) Eosinophils # (Auto) 0.0 TH/MM3 (0-0.4) 0.0 TH/MM3 (0-0.4) Basophils # (Auto) 0.0 TH/MM3 (0-0.2) 0.0 TH/MM3 (0-0.2) CBC Comment AUTO DIFF DIFF FINAL Differential Comment AUTO DIFF CONFIRMED Platelet Estimate NORMAL (NORMAL) Platelet Morphology Comment NORMAL (NORMAL) Stomatocytes 1+ (NORMAL) Prothrombin Time 22.7 SEC (9.8-11.6) 24.1 SEC (9.8-11.6) Prothromb Time International Ratio 2.2 RATIO 2.4 RATIO Blood Urea Nitrogen 16 MG/DL (7-18) 15 MG/DL (7-18) Creatinine 0.31 MG/DL (0.50-1.00) 0.38 MG/DL (0.50-1.00) Random Glucose 87 MG/DL (74-106) 102 MG/DL (74-106) Total Protein 5.1 GM/DL (6.4-8.2) 5.9 GM/DL (6.4-8.2) Albumin 1.9 GM/DL (3.4-5.0) 2.9 GM/DL (3.4-5.0) Calcium Level 8.0 MG/DL (8.5-10.1) 7.7 MG/DL (8.5-10.1) Alkaline Phosphatase 142 U/L (45-117) 121 U/L (45-117) Aspartate Amino Transf (AST/SGOT) 10 U/L (15-37) 12 U/L (15-37) Alanine Aminotransferase (ALT/SGPT) 13 U/L (10-53) 13 U/L (10-53) Total Bilirubin 0.4 MG/DL (0.2-1.0) 0.5 MG/DL (0.2-1.0) Sodium Level 136 MEQ/L (136-145) 140 MEQ/L (136-145) Potassium Level 3.6 MEQ/L (3.5-5.1) 2.5 MEQ/L (3.5-5.1) Chloride Level 101 MEQ/L (98-107) 102 MEQ/L (98-107) Carbon Dioxide Level 27.7 MEQ/L (21.0-32.0) 29.1 MEQ/L (21.0-32.0) Anion Gap 7 MEQ/L (5-15) 9 MEQ/L (5-15) Estimat Glomerular Filtration Rate 222 ML/MIN (>89) 175 ML/MIN (>89) Blood Gas Puncture Site ART LINE Blood Gas Patient Temperature 98.6 Blood Gas HCO3 27 mmol/L (22-26) Blood Gas Base Excess 3.4 mmol/L (-2-2) Blood Gas Oxygen Saturation 97 % (90-100) Arterial Blood pH 7.50 (7.380-7.420) Arterial Blood Partial Pressure CO2 35 mmHg (38-42) Arterial Blood Partial Pressure O2 132 mmHg (61-120) Arterial Blood Oxygen Content 16.0 Vol % (12.0-20.0) Arterial Blood Carboxyhemoglobin 1.4 % (0-4) Arterial Blood Methemoglobin 1.1 % (0-2) Blood Gas Hemoglobin 11.6 G/DL (12.0-16.0) Oxygen Delivery Device VENTILATOR Blood Gas Ventilator Setting PRV/AC Blood Gas Inspired Oxygen 40 % Magnesium Level 2.1 MG/DL (1.5-2.5) Test 03/09/17 19:00 03/10/17 03:20 Potassium Level 3.4 MEQ/L (3.5-5.1) 3.2 MEQ/L (3.5-5.1) Magnesium Level 2.7 MG/DL (1.5-2.5) White Blood Count 4.6 TH/MM3 (4.0-11.0) Red Blood Count 2.54 MIL/MM3 (4.00-5.30) Hemoglobin 8.3 GM/DL (11.6-15.3) Hematocrit 24.9 % (35.0-46.0) Mean Corpuscular Volume 97.9 FL (80.0-100.0) Mean Corpuscular Hemoglobin 32.8 PG (27.0-34.0) Mean Corpuscular Hemoglobin Concent 33.5 % (32.0-36.0) Red Cell Distribution Width 19.4 % (11.6-17.2) Platelet Count 116 TH/MM3 (150-450) Mean Platelet Volume 8.6 FL (7.0-11.0) Neutrophils (%) (Auto) 79.8 % (16.0-70.0) Lymphocytes (%) (Auto) 9.9 % (9.0-44.0) Monocytes (%) (Auto) 10.0 % (0.0-8.0) Eosinophils (%) (Auto) 0.2 % (0.0-4.0) Basophils (%) (Auto) 0.1 % (0.0-2.0) Neutrophils # (Auto) 3.7 TH/MM3 (1.8-7.7) Lymphocytes # (Auto) 0.5 TH/MM3 (1.0-4.8) Monocytes # (Auto) 0.5 TH/MM3 (0-0.9) Eosinophils # (Auto) 0.0 TH/MM3 (0-0.4) Basophils # (Auto) 0.0 TH/MM3 (0-0.2) CBC Comment DIFF FINAL Differential Comment Prothrombin Time 12.6 SEC (9.8-11.6) Prothromb Time International Ratio 1.2 RATIO Blood Urea Nitrogen 20 MG/DL (7-18) Creatinine 0.32 MG/DL (0.50-1.00) Random Glucose 124 MG/DL (74-106) Total Protein 5.5 GM/DL (6.4-8.2) Albumin 2.7 GM/DL (3.4-5.0) Calcium Level 7.5 MG/DL (8.5-10.1) Alkaline Phosphatase 103 U/L (45-117) Aspartate Amino Transf (AST/SGOT) 17 U/L (15-37) Alanine Aminotransferase (ALT/SGPT) 13 U/L (10-53) Total Bilirubin 0.5 MG/DL (0.2-1.0) Sodium Level 142 MEQ/L (136-145) Chloride Level 105 MEQ/L (98-107) Carbon Dioxide Level 27.3 MEQ/L (21.0-32.0) Anion Gap 10 MEQ/L (5-15) Estimat Glomerular Filtration Rate 214 ML/MIN (>89) . Result Diagram: 03/10/17 0320 03/10/17 0320 Microbiology Microbiology Date/Time Source Procedure Growth Status 03/07/17 08:03 Fluid Pleural Fluid Gram Stain - Final Complete 03/07/17 08:03 Fluid Pleural Fluid Body Fluid Culture - Final NO GROWTH IN 72 HRS.--AEROBICALLY OR ... Complete . Imaging Last Impressions Chest X-Ray 03/09/17 0600 Signed Impressions: Service Date/Time: March 04:16 - CONCLUSION: Unchanged bilateral pleural effusions and bibasilar infiltrates. Art Tate Jr., MD Neck CTA 03/07/17 0000 Signed Impressions: Service Date/Time: Tuesday, March 07, 2017 09:49 - CONCLUSION: 1. Aneurysmal dilation of the tubular portion of the ascending aorta with a maximum dimension of 4.6 cm. 2. Atherosclerotic plaquing at the carotid bifurcations. No hemodynamically significant stenosis identified. Stew Lindsay MD Head CTA 03/07/17 0000 Signed Impressions: Service Date/Time: Tuesday, March 07, 2017 09:49 - CONCLUSION: Negative examination. Stew Lindsay MD Head CT 03/07/17 0000 Signed Impressions: Service Date/Time: Tuesday, March 07, 2017 09:43 - CONCLUSION: No evidence of acute intracranial pathology. Chronic ischemic changes as above. Sterling Wolfe MD CT Angiography 03/07/17 0000 Signed Impressions: Service Date/Time: Tuesday, March 07, 2017 09:56 - CONCLUSION: 1. Dense consolidation right lower lobe not present previously characteristic of pneumonia. 2. Reduction in size of the left pleural effusion since the prior exam which has gas bubbles within it probably from chest tube insertion previously. 3. Right pleural effusion and bilateral parenchymal infiltrates also seen in addition to small right pleural effusion. Dyllan Sin MD . Procedures * Intubation/mechanical ventilation * Arterial line placement right upper extremity * Internal jugular central venous catheter placement * Thoracentesis . Assessment and Plan Disease Oriented Problem List: (1) Acute hypoxemic respiratory failure (2) Aortic stenosis (3) CHF (congestive heart failure) (4) Elevated troponin (5) Pleural effusion (6) Myelodysplasia (myelodysplastic syndrome) (7) Hypoalbuminemia (8) COPD (chronic obstructive pulmonary disease) (9) Atrial fibrillation with RVR Symptom Scale: (1) Pain 0-10 Scale: Unable to quantify Comment: Patient is currently unable to answer questions -- cannot quantify or qualify pain. Possible sources of pain include prolonged bedbound status; vascular access catheters; orotracheal intubation; orogastric intubation; Cabrera catheter; restraints; SCDs. . (2) dyspnea 0-10 Scale: Unable to quantify Comment: Dyspnea is multifactorial and likely due to a combination of valvular heart disease, congestive heart failure, COPD, and anemia. Dyspnea is currently managed by mechanical ventilation. Patient is also on midazolam. . (3) Encephalopathy 0-10 Scale: Unable to quantify (patient is sedated with Versed.) Comment: Patient is now off sedation and still now waking up and still not following commands. . Pertinent Non-Medical Issues Psychosocial: Patient had been living with her prior to her hospitalization at the end of December. Since then she has been either in the hospital or [facility] facility. Also has an adult daughter who lives locally. Spiritual: Does not belong to any local [place] community. Considers herself to be spiritual. Has declined cash office worker visits in the past. Legal: In the past, there've been references to an advance directive. We have never seen such a document. Patient is currently incapacitated. Patient's would be the proxy health care decision-maker. Ethical issues impacting care: No known ethical issues at this time. . Important Contacts * Feliberto Steven (spouse and proxy health care decision-maker) -- [phone] . . Prognosis Patient has severe aortic stenosis with underlying COPD, recurrent pleural effusions, and probable early myelodyspastic syndrome. She was hoping to rehab and get stronger to the point where she would be a candidate for TAVR. Unfortunatley, it does not appear that she will be able to achieve those goals. She has essentially been hospitalized continuously since 12/29 with the exception of two brief SNF stay (01/24-01/31/17 and 02/25/17 - 03/06/17). She is now on life support in intensive care. In spite of her relatively young age, even if she survives this hospitalization , life expectancy is probably in the order of weeks to months. . Code Status: No Code Plan == Code status changed to NO CODE in preparation for compassionate withdrawal of life prolonging measures. == Decision making: Patient is currently incapacitated to make her own health care decisions. There is no reasonable probability that she will ever regain capacity to do so. While incapacitated, as we do not have any written designation of health care surrogate, the patient's spouse will be serving as health care proxy. == Goals of medical treatment: The patient's proxy decision-maker, with the support of the patient's daughter and patient's sister, have opted to forego further aggressive care and transitioning to "comfort measures only." == Symptoms ( symptoms are described above) * Pain: Sources of pain noted above. * Dyspnea: Multiple causes of dyspnea noted above. Dyspnea management primarily through ventilator support at this point in time. * Encephalopathy: Not able to follow commands in spite of being off sedation. == Family was provided anticipatory guidance regarding the process and logistics of withdrawal of life prolonging measures. All questions were answered. == I have written orders to mitigate suffering at time of ventilator withdrawal. I will also written post-withdrawal comfort orders. == Reviewed withdrawal orders and collaborated with primary nurse. == Discussed case with the attending. The attending physician and myself have signed exhibits indicating her believe that the patient has a terminal or end- stage condition. We both believe she has no reasonable probability of regaining capacity to make her own decisions. == I personally reviewed the exhibit with the patient's where he has given permission for us to go forward with withdrawal. All questions were answered. == Family has requested that should patient survive overnight and be stable for transport they would like her move to a hospice care bed. . . Time Spent Total Floor Time (mins): 70 (Total floor time included chart review, patient examination, above referenced family conference, discussion with attending physician, discussion with work station support specialist, writing orders for withdrawal of life prolonging measures, collaborated with primary nurse, and documentation.) Face to Face Time (mins): 15 >50% Counseling/Coord of Care: Yes Attestation To help prompt me to consider important information that might be impacting today's encounter and assessment, information from prior notes written by myself or my colleagues may have been "brought forward" into today's note. My signature on this note, however, is an attestation that I personally performed the exam, history, and/or decision-making noted today, and, unless otherwise indicated, the interactions with patient, family, and staff as well as the review of records all occurred today. I also attest that the listed assessment and stated plan reflect my best clinical judgment today based on the combination of historical information, prior notes, and today's exam/ interactions. When time spent is documented, it refers only to time spent today by the signer, or if indicated, combined time spent today by collaborating physician/nurse practitioner. . Andrew Sharif MD Mar 10, 2017 20:44
--- NOTE | 2017-03-12 18:27 | HHI.DS ---
Summary Note Date of : Mar 10, 2017 Time Of : 165 Admission Date Mar 06, 2017 at 09:55 Admitting Diagnosis COPD WITH HYPOXEMIA,AFIB WITH RVR Diagnosis at Time of : (1) Aortic stenosis ICD Code: I35.0 - Nonrheumatic aortic (valve) stenosis Diagnosis: Principal (2) CHF (congestive heart failure) ICD Code: I50.9 - Heart failure, unspecified Diagnosis: Principal (3) COPD (chronic obstructive pulmonary disease) ICD Code: J44.9 - Chronic obstructive pulmonary disease, unspecified Diagnosis: Secondary Procedures 03/07/17 - Thoracentesis, ET intubation, central venous line placement, arterial line placement Brief History Mrs. Steven is a 65-year-old white female with a past medical history of CHF, COPD, A fib who presented to the ED with shortness of breath. She states that her symptoms started in the morning while she was laying in bed. Suddenly she felt short of breath. She had never experienced this type of shortness of breath before because it was so sudden. She states that it felt different from her previous COPD flares. She was also having pain in her left back, arm, and neck, but this is chronic for her since her thoracotomy months ago. Her Rehab team ([facility]), sent her to the hospital because of the shortness of breath and her going into A. fib. She was discharged to the rehabilitation center on 02/25 so that she could work with PT to get strong for a valve replacement. She is currently on Coumadin and digoxin for her A. fib. No chest pains, no history of blood clots. [place] palpitations. Of note was diagnosed with pneumonia a few days ago at the rehab. Was given antibiotics, the names of which she does not know. She states that they were given through an IV and also in pill form. No fevers or chills. Of note, had a left thoracotomy decortication in January [address] Recinos[address] Chung for Pulmonology. Has not yet seen a reconnaissance man outside the hospital. PCP is Dr. Saizn. CBC/BMP: 03/10/17 0320 03/10/17 0320 Significant Findings Laboratory Tests Test 03/09/17 19:00 03/10/17 03:20 Potassium Level 3.4 MEQ/L (3.5-5.1) 3.2 MEQ/L (3.5-5.1) Magnesium Level 2.7 MG/DL (1.5-2.5) Red Blood Count 2.54 MIL/MM3 (4.00-5.30) Hemoglobin 8.3 GM/DL (11.6-15.3) Hematocrit 24.9 % (35.0-46.0) Red Cell Distribution Width 19.4 % (11.6-17.2) Platelet Count 116 TH/MM3 (150-450) Neutrophils (%) (Auto) 79.8 % (16.0-70.0) Monocytes (%) (Auto) 10.0 % (0.0-8.0) Lymphocytes # (Auto) 0.5 TH/MM3 (1.0-4.8) Prothrombin Time 12.6 SEC (9.8-11.6) Blood Urea Nitrogen 20 MG/DL (7-18) Creatinine 0.32 MG/DL (0.50-1.00) Random Glucose 124 MG/DL (74-106) Total Protein 5.5 GM/DL (6.4-8.2) Albumin 2.7 GM/DL (3.4-5.0) Calcium Level 7.5 MG/DL (8.5-10.1) Imaging Last Impressions Neck CTA 03/07/17 Signed Impressions: Service Date/Time: Tuesday, March 07, 2017 09:49 - CONCLUSION: 1. Aneurysmal dilation of the tubular portion of the ascending aorta with a maximum dimension of 4.6 cm. 2. Atherosclerotic plaquing at the carotid bifurcations. No hemodynamically significant stenosis identified. Stew Lindsay MD Head CTA 03/07/17 0000 Signed Impressions: Service Date/Time: Tuesday, March 07, 2017 09:49 - CONCLUSION: Negative examination. Stew Lindsay MD Head CT 03/07/17 0000 Signed Impressions: Service Date/Time: Tuesday, March 07, 2017 09:43 - CONCLUSION: No evidence of acute intracranial pathology. Chronic ischemic changes as above. Sterling Wolfe MD Chest X-Ray 03/07/17 0000 Signed Impressions: Service Date/Time: Tuesday, March 07, 2017 12:40 - CONCLUSION: 1. No pneumothorax identified. 2. Saphenous catheter and ET tube in good position. 3. Large right pleural effusion. Similar in size previous. Stew Lindsay MD CT Angiography 03/07/17 0000 Signed Impressions: Service Date/Time: Tuesday, March 07, 2017 09:56 - CONCLUSION: 1. Dense consolidation right lower lobe not present previously characteristic of pneumonia. 2. Reduction in size of the left pleural effusion since the prior exam which has gas bubbles within it probably from chest tube insertion previously. 3. Right pleural effusion and bilateral parenchymal infiltrates also seen in addition to small right pleural effusion. Dyllan Sin MD Hospital Course On admission it was noted patient had diffuse wheezing as well as a harsh sounding aortic murmur. Bronchodilators and prednisone were initiated for COPD treatment. CXR additionally revealed recurrence and interval worsening of her pleural effusion and her cabin cleaning supervisor DR. Chung was consulted to evaluate for possible drainage. She was also given diureses for the pleural effusion and pulmonary edema also noted on CXR. Cardiology was consulted for the atrial fibrillation w/ RVR and the harsh sounding murmur in the setting of known aortic stenosis. IV diltiazem was initiated and an echocardiogram was performed which showed severe aortic stenosis with moderate aortic regurgitation (in contrast with moderate stenosis noted on prior echocardiogram). Diuresis was continued. On the morning of hospital day 1, however, she developed worsened respiratory distress and hypotension and a code blue was called. She was intubated and transferred to the ICU for continued diltiazem IV and pressor support with phenylephrine. The suspected etiology was cardiogenic shock secondary to aortic stenosis. She continued to do poorly in regards to respiratory and hemodynamic status, and ultimately the family elected to withdraw aggressive life sustaining care. She shortly after ventilatory and pressor support was withdrawn. Heriberto Mancuso MD Mar 12, 2017 18:27
== END 2017-03-10 18:20 | disposition expired | DRG 291 ==
LOC: NEPE 02:22 → NEDA 09:07 → OBSVTOIN 09:55 → HCIS 11:12 → HCVI 03-07 06:30
PROVIDERS: ADMIT Family Medicine; ATTEND Family Medicine
PROC: 5A1945Z Respiratory Ventilation, 24-96 Consecutive Hours (ICD-10-PCS; principal; 2017-03-07)
PROC: 03HY32Z Insertion of Monitoring Device into Upper Artery, Percutaneous Approach (ICD-10-PCS; 2017-03-07)
PROC: 0BH17EZ Insertion of Endotracheal Airway into Trachea, Via Natural or Artificial Opening (ICD-10-PCS; 2017-03-07)
PROC: 02HV33Z Insertion of Infusion Device into Superior Vena Cava, Percutaneous Approach (ICD-10-PCS; 2017-03-07)
PROC: B543ZZA Ultrasonography of Right Jugular Veins, Guidance (ICD-10-PCS; 2017-03-07)
PROC: 0W9B3ZZ Drainage of Left Pleural Cavity, Percutaneous Approach (ICD-10-PCS; 2017-03-07)
PROC: 30233N1 Transfusion of Nonautologous Red Blood Cells into Peripheral Vein, Percutaneous Approach (ICD-10-PCS; 2017-03-08)
DX: I50.33 Acute on chronic diastolic (congestive) heart failure (principal); J96.01 Acute respiratory failure with hypoxia; R57.0 Cardiogenic shock; G93.40 Encephalopathy, unspecified; E43 Unspecified severe protein-calorie malnutrition; J18.9 Pneumonia, unspecified organism; Z51.5 Encounter for palliative care; J90 Pleural effusion, not elsewhere classified; J96.02 Acute respiratory failure with hypercapnia; J44.0 Chronic obstructive pulmonary disease with (acute) lower respiratory infection; N17.9 Acute kidney failure, unspecified; D61.818 Other pancytopenia; J44.1 Chronic obstructive pulmonary disease with (acute) exacerbation; J98.11 Atelectasis; D46.9 Myelodysplastic syndrome, unspecified; I48.2 Chronic atrial fibrillation; I27.20 Pulmonary hypertension, unspecified; I08.0 Rheumatic disorders of both mitral and aortic valves; D53.9 Nutritional anemia, unspecified; R73.9 Hyperglycemia, unspecified; R33.9 Retention of urine, unspecified; F32.9 Major depressive disorder, single episode, unspecified; Z66 Do not resuscitate; Z68.21 Body mass index [BMI] 21.0-21.9, adult; Z79.01 Long term (current) use of anticoagulants; Z87.891 Personal history of nicotine dependence
CPT/HCPCS: 31500; 36430; 70450; 70496; 70498; 71045; 71046; 71275; 80048; 80053; 80076; 80162; 82042; 82140; 82150; 82607; 82746; 82805; 82945; 82948; 83605; 83615; 83735; 83880; 84132; 84157; 84443; 84484; 85025; 85044; 85060; 85384; 85610; 85730; 86850; 86900; 86901; 86920; 87070; 87205; 87641; 89051; 93005; 93308; 94002; 94003; 94640; 94664; J0171; J0461; J0696; J1120; J1160; J1170; J1940; J2060; J2250; J2370; J2930; J3475; J3480; J7040; J7050; J7060; J7613; P9016; P9047; Q9967